=== PATIENT | male | born 1945 | race Caucasian/White ===

== ENCOUNTER 2022-09-26 10:15 | Outpatient (OUT) | payer MEDICARE, SELFPAY ==
[2022-09-26 13:20] LABS: Prostate Specific Antigen Dx 2.05 ng/mL (<=4.00)
== END 2022-09-26 10:16 | disposition home or self-care (01) ==
LOC: LAB 10:18
PROVIDERS: PCP Family Medicine; Visit Provider Urology
DX: Z85.46 Personal history of malignant neoplasm of prostate (principal)
CPT/HCPCS: 36415; 84153

== ENCOUNTER 2022-09-26 10:20 | Outpatient (OUT) | payer MEDICARE, SELFPAY ==
[2022-09-26 11:07] LABS: Hematocrit 46.2 % (42.0-54.0); Hemoglobin 15.3 g/dL (14.0-18.0); Mean Corpuscular HGB Conc 33.1 g/dL (29.9-35.2); Mean Corpuscular Hemoglobin 28.9 pg (25.9-34.0); Mean Corpuscular Volume 87.3 fL (80.0-94.0); Mean Platelet Volume 10.5 fL (9.5-13.5); Platelet Count 171 10^3/uL (150-450); Red Blood Count 5.29 10^6/uL (4.70-6.10); Red Cell Distribution Width 14.4 % (11.0-15.0); White Blood Count 6.6 10^3/uL (4.0-11.0)
[2022-09-26 11:26] LABS: Bilirubin Urine NEGATIVE (NEGATIVE); Blood Urine NEGATIVE (NEGATIVE); Clarity Urine CLEAR (CLEAR); Color Urine YELLOW (YELLOW); Glucose Urine UA NEGATIVE (NEGATIVE); Ketones Urine NEGATIVE (NEGATIVE); Leukocyte Esterase Urine NEGATIVE (NEGATIVE); Nitrite Urine NEGATIVE (NEGATIVE); Protein Urine TRACE mg/dL (NEG/TRACE); Specific Gravity Urine 1.025 (1.005-1.025); Urobilinogen Urine 0.2 EU/dL (0.2-1.0); pH Urine 5.5 (5.0-9.0)
[2022-09-26 11:36] LABS: Bacteria Urine NONE SEEN #/HPF (NONE SEEN); Cast Seen? NONE SEEN #/LPF (NONE SEEN); Crystals Seen? None Seen #/HPF (None Seen); Mucus Urine NONE SEEN (NONE SEEN); RBC Urine 0-2 #/HPF (0-2); Squamous Epithelial Cell Urine RARE #/LPF (NONE/RARE); Urine Culture Indicated NO; WBC Urine NONE SEEN #/HPF (NONE SEEN)
[2022-09-26 11:43] LABS: Creatinine Urine Random 194.09 mg/dL (20.00-300.00); Protein Creatinine Ratio Urine 0.15; Total Protein Urine Random 28.9 mg/dL (<=11.9)
[2022-09-26 12:35] LABS: Albumin Level 4.1 g/dL (3.4-5.0); Anion Gap 15.7; BUN Creatinine Ratio 18.6; Calcium 9.4 mg/dL (8.5-10.1); Carbon Dioxide 24.1 mmol/L (21.0-32.0); Chloride 104 mmol/L (98-107); Estimated GFR (African America 57 (>=60); Estimated GFR (Non-African Ame 47 (>=60); Glucose 111 mg/dL (74-106); Potassium 3.8 mmol/L (3.5-5.1); Sodium 140 mmol/L (136-145)
[2022-09-27 12:09] LABS: PTH, Intact 45 pg/mL (15-65)
== END 2022-09-26 10:21 | disposition home or self-care (01) ==
LOC: LAB 10:21
PROVIDERS: PCP Family Medicine; Visit Provider Internal Medicine
DX: I12.9 Hypertensive chronic kidney disease with stage 1 through stage 4 chronic kidney disease, or unspecified chronic kidney disease (principal); N18.30 Chronic kidney disease, stage 3 unspecified; C61 Malignant neoplasm of prostate; D47.2 Monoclonal gammopathy; N25.81 Secondary hyperparathyroidism of renal origin
CPT/HCPCS: 36415; 80069; 81001; 82306; 82570; 83735; 83970; 84153; 84156; 84550; 85027

== ENCOUNTER 2022-11-04 08:54 | Outpatient (OUT) | payer MEDICARE, SELFPAY ==
--- NOTE | 2022-11-04 08:55 | ECG_ITS ---
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
--- NOTE | 2022-11-04 09:44 | P.GSHP_ITS ---
History of Present Illness History of Present Illness Chief complaint: bladder tumor Narrative: Patient presents for preadmission testing. Please see HPI from Dr. Douglass dated 11/01/2022. Review of Systems ROS Narrative Please see ROS from Dr. Douglass dated 11/01/2022. [facility] Medical History (Updated 11/04/22 @ 09:55 by Peggy Helm NP) Surgical History (Updated 11/04/22 @ 09:24 by Peggy Helm NP) Family History (Updated 11/04/22 @ 09:43 by Peggy Helm NP) Other Family history of cancer Family history of hypertension Myocardial infarct Social History (Updated 11/04/22 @ 09:18 by Peggy Helm NP) Within the past year, how often did you have a drink containing alcohol: never Score interpretation: A score less than 4 is consistent with normal alcohol consumption. Smoking status: Never smoker Previous occupational history: Retired Highest level of school completed/degree received: high school graduate Meds Home Medications and Allergies Home Medications Medication Instructions Recorded Confirmed Type lisinopril 10 1 tab PO QDAY 11/04/22 11/04/22 History mg-hydrochlorothiazide 12.5 mg tablet Allergies Allergy/AdvReac Type Severity Reaction Status Date / Time oxytetracycline Allergy swelling Verified 11/04/22 09:16 [From Terramycin] Penicillins Allergy Rash Verified 11/04/22 09:16 Exam Narrative Exam Narrative: Constitutional: Awake, alert, comfortable, well-appearing, nontoxic, interactive, vital signs as charted Head: Normocephalic, atraumatic Neck: Supple, normal appearance, normal range of motion, no meningeal signs, no lymphadenopathy Respiratory: No respiratory distress, breath sounds clear Cardiovascular: Regular rate and rhythm, strong and regular heart tones Abdomen: Nontender, normal bowel sounds, soft, no CVA tenderness Musculoskeletal: Normal gait, no swelling or edema Skin: No rashes or induration, no lesions, only visible skin inspected Neuro: No neurological deficits, normal sensation Psychiatric: Oriented ?3, normal affect Assessment and Plan Assessment and Plan (1) Bladder tumor: (2) Hematuria: Plan Cystoscopy/TURBT scheduled with Dr. Douglass 11/10/2022.
[2022-11-04 10:17] LABS: Basophils Percent Auto 0.3 % (0.2-2.0); Eosinophils Absolute Auto 0.1 10^3/uL (0.0-0.7); Eosinophils Percent Auto 1.4 % (0.9-7.0); Hematocrit 46.4 % (42.0-54.0); Immature Granulocytes Abs Auto 0.03 10^3/uL (0.00-0.03); Immature Granulocytes Pct Auto 0.5 % (0.0-0.5); Lymphocytes Absolute Auto 1.3 10^3/uL (1.2-3.8); Lymphocytes Percent Auto 20.8 % (20.5-60.0); Mean Corpuscular HGB Conc 32.3 g/dL (29.9-35.2); Mean Corpuscular Volume 89.6 fL (80.0-94.0); Mean Platelet Volume 10.6 fL (9.5-13.5); Monocytes Absolute Auto 0.6 10^3/uL (0.3-0.8); Monocytes Percent Auto 9.1 % (1.7-12.0); Neutrophils Absolute Auto 4.3 10^3/uL (1.4-6.5); Neutrophils Percent Auto 67.9 % (43.0-75.0); Platelet Count 168 10^3/uL (150-450); Red Blood Count 5.18 10^6/uL (4.70-6.10); Red Cell Distribution Width 14.7 % (11.0-15.0); White Blood Count 6.4 10^3/uL (4.0-11.0)
[2022-11-04 10:32] LABS: INR 1.03; Partial Thromboplastin Time 30.2 sec (22.3-36.2); Prothrombin Time 10.9 sec (9.0-11.6)
[2022-11-04 12:11] LABS: Anion Gap 14.6; BUN Creatinine Ratio 17.4; Calcium 9.5 mg/dL (8.5-10.1); Carbon Dioxide 26.3 mmol/L (21.0-32.0); Chloride 104 mmol/L (98-107); Estimated GFR (African America 53 (>=60); Estimated GFR (Non-African Ame 44 (>=60); Glucose 107 mg/dL (74-106); Potassium 3.9 mmol/L (3.5-5.1); Sodium 141 mmol/L (136-145)
== END 2022-11-04 08:55 | disposition home or self-care (01) ==
LOC: PST 08:54
PROVIDERS: PCP Family Medicine; Visit Provider Urology
DX: Z01.810 Encounter for preprocedural cardiovascular examination (principal); Z01.812 Encounter for preprocedural laboratory examination; D49.4 Neoplasm of unspecified behavior of bladder; R31.9 Hematuria, unspecified; I10 Essential (primary) hypertension; Z85.46 Personal history of malignant neoplasm of prostate
CPT/HCPCS: 80048; 85025; 85610; 85730; 93005; G0463

== ENCOUNTER 2022-11-10 10:33 | Day surgery (SDC) | payer MEDICARE, SELFPAY ==
[2022-11-04 09:34] VITALS: BP 115/71; PULSE 61; RESP 16; TEMP 36.3; O2SAT 96; BMI 29.9
[2022-11-10] VITALS (13 sets, daily range): BP systolic 93–133; BP diastolic 45–79; PULSE 47–68; RESP 8–16; TEMP 36–36.2; O2SAT 93–96; BMI 29.6
[2022-11-10] MEDS: LACTATED RINGER'S SOLUTION 1,000 ML 50 ML IV ×2 (11:04→13:20)
[2022-11-10] MEDS: CIPROFLOXACIN IN 5 % DEXTROSE 400 MG/200 ML PIGGYBACK 200 MG IV (12:09)
--- NOTE | 2022-11-10 13:14 | P.URON_ITS ---
Urology Surgery Operative Note Operative Note Procedure Date: 11/10/22 Time Out Performed: yes Pre-op Diagnosis: bladder tumor Post-op Diagnosis: same as pre-op Procedures performed: #1. Cystoscopy. #2. Transurethral resection of bladder tumor approximately 4 cm. Anesthesia: GETA Primary Surgeon: Les Douglass Complications: none Estimated blood loss (mL): 5 Findings: large mid trigone necrotic angry looking fungating bladder mass Specimens: bladder tumor Drains: 20 [place] Herrera catheter Indications for Procedures: gentleman has microhematuria. Cystoscopy revealed a 3-4 cm papillary neoplasm from the center of his trigone going towards the bladder neck. Coincidentally, his PSA has been rising. He now presents for cystoscopy and transurethral resection of the bladder tumor. He has signed an informed consent for these procedures after all risks were explained. Detailed description of Procedure: The patient was brought to the operating room and placed on the operating room table in the supine position. SCDs were placed on the lower extremities and turned on and functioning during the entire case. Timeout was done by all parties in the room. We all agreed upon the patient's identification and the planned procedures for this patient. Genn. anesthesia was then administered. The patient was then repositioned into the modified dorsal lithotomy position. All pressure points were satisfactorily padded. Genitalia were sterilely prepped and draped in usual fashion.I started by passing a 26 [place] Olympus resectoscope with the standard bipolar loop electrode per urethra and into the bladder. The anterior urethra was normal. As soon as I entered the bladder I could see this large fungating necrotic mass originating from the center of the trigone and towards the bladder neck. The ureteral orifices were significantly lateral to the mass. At this time I then uniformly and deeply resectted this entire mass. The resection bed was coagulated. The Restorando[employer] evacuator was used to get all the bladder tumor pieces out. These were sent for permanent sections. The rest of the bladder showed no tumors. I was going to place mitomycin C in the bladder at this time but the pharmacy does not have the medicine readdy yet therefore I removed the scope from the bladder and placed a 20 [place] Herrera catheter in the bladder. The anesthetic was reversed. He was then transferred to a [facility] bed and wheeled to PACU in stable condition. He will get his mitomycin C medicine in PACU. Follow-up will be in one week for catheter removal and to review the pathology.
[2022-11-10] MEDS: MITOMYCIN 40 MG in WATER FOR INJECTION,STERILE 20 ML 20 MG INTRAVESIC (13:15)
[2022-11-10] MEDS: HYDROMORPHONE HCL 0.5 MG/0.5 ML SYRINGE 0.4 MG IV (13:48)
--- NOTE | 2022-11-10 14:48 | PC.NURSE ---
mitomycin instilled in bladder at 1315 and drained at 1445, conley left in placed and connected to conley bag
== END 2022-11-10 14:53 | disposition home or self-care (01) ==
PROVIDERS: PCP Family Medicine; Visit Provider Urology
PROC: (CPT 52235; principal; 2022-11-10 11:30)
DX: C79.11 Secondary malignant neoplasm of bladder (principal); Z85.46 Personal history of malignant neoplasm of prostate; R31.29 Other microscopic hematuria; I10 Essential (primary) hypertension; R35.1 Nocturia; R35.0 Frequency of micturition; R39.15 Urgency of urination; Z90.79 Acquired absence of other genital organ(s); R97.20 Elevated prostate specific antigen [PSA]
CPT/HCPCS: 52235; 36415; 88307; 88341; 88342; J1170; J2704; J9280

== ENCOUNTER 2024-01-12 12:37 | Outpatient (OUT) | payer MEDICARE, SELFPAY ==
--- NOTE | 2024-01-12 12:54 | ECG_ITS ---
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
--- NOTE | 2024-01-12 12:54 | XR_ITS ---
The [address] [address] Patient Name: FARZANA JOHNS MRN: [id number] date: 1945 Sex: M Assigned Patient Location: [facility] Current Patient Location: [facility] Accession/Order Number: [id number] Exam Date: 01/12/2024 15:35 Report Date: 01/12/2024 15:39 At the request of: YOSEF GRIMES Procedure: XR chest 2V PROCEDURE: XR chest 2V DATE: 01/12/2024 3:35 PM EST COMPARISONS: CT chest 06/06/2016 CLINICAL INDICATION: 78 years Male Preop exam FINDINGS: The cardiomediastinal silhouette and pulmonary vasculature are within normal limits. 1.5 cm stable granuloma left upper lung field. The lungs are otherwise clear. There is no evidence of pleural effusion or pneumothorax. XR/XR chest 2V IMPRESSION: Chest radiograph is essentially within normal limits and stable. Electronically authenticated by: KAYLAH SCHMIDT Date: 01/12/2024 15:39
[2024-01-12 13:41] LABS: Hematocrit 41.5 % (42.0-54.0); Hemoglobin 14.1 g/dL (14.0-18.0); Mean Corpuscular Hemoglobin 31.1 pg (25.9-34.0); Mean Corpuscular Volume 91.6 fL (80.0-94.0); Mean Platelet Volume 10.6 fL (9.5-13.5); Platelet Count 184 10^3/uL (150-450); Red Blood Count 4.53 10^6/uL (4.70-6.10); Red Cell Distribution Width 14.2 % (11.0-15.0); White Blood Count 9.8 10^3/uL (4.0-11.0)
--- NOTE | 2024-01-12 13:41 | P.GSHP_ITS ---
History of Present Illness History of Present Illness Chief complaint: Prostate cancer, bladder lesions Narrative: Patient presents for presurgical testing. Please see HPI from Dr. Douglass dated January 10, 2024. Review of Systems ROS Narrative Please see ROS from Dr. Douglass dated January 10, 2024. [facility] Medical History (Updated 01/12/24 @ 13:16 by Peggy Helm NP) Irregular heart beat ?I49.9 - Cardiac arrhythmia, unspecified (ICD-10) Bladder cancer ?C67.9 - Malignant neoplasm of bladder, unspecified (ICD-10) Hematuria ?R31.9 - Hematuria, unspecified (ICD-10) Skin cancer ?C44.90 - Unspecified malignant neoplasm of skin, unspecified (ICD-10) Prostate cancer ?C61 - Malignant neoplasm of prostate (ICD-10) Bronchitis ?J40 - Bronchitis, not specified as acute or chronic (ICD-10) Hypertension ?I10 - Essential (primary) hypertension (ICD-10) Bladder tumor ?D49.4 - Neoplasm of unspecified behavior of bladder (ICD-10) Surgical History (Updated 01/12/24 @ 13:07 by Peggy Helm NP) H/O transurethral resection of bladder tumor (TURBT) (11/10/22) ?Z98.890 - Other specified postprocedural states (ICD-10) ?Z86.03 - Personal history of neoplasm of uncertain behavior (ICD-10) History of surgical removal of lesion ?Z98.890 - Other specified postprocedural states (ICD-10) ?Z87.2 - Personal history of diseases of the skin and subcutaneous tissue (ICD-10) H/O prostatectomy ?Z90.79 - Acquired absence of other genital organ(s) (ICD-10) History of colonoscopy ?Z98.890 - Other specified postprocedural states (ICD-10) Family History (Updated 11/04/22 @ 09:43 by Peggy Helm NP) Other Family history of cancer Family history of hypertension Myocardial infarct Social History (Updated 11/04/22 @ 09:18 by Peggy Helm NP) Within the past year, how often did you have a drink containing alcohol: never Score interpretation: A score less than 4 is consistent with normal alcohol consumption. Smoking status: Never smoker Previous occupational history: Retired Highest level of school completed/degree received: high school graduate Meds Home Medications and Allergies Home Medications ?Medication ?Instructions ?Recorded ?Confirmed ?Type lisinopril 10 1 tab PO QDAY 11/04/22 01/12/24 History mg-hydrochlorothiazide 12.5 mg tablet abiraterone 250 mg tablet 1,000 mg PO DAILY 01/12/24 01/12/24 History leuprolide acetate (6 month) 45 mg 45 mg subcut .[id number] 01/12/24 01/12/24 History (6 month) subcutaneous syringe ([employer]) prednisone 5 mg tablet 5 mg PO DAILY 01/12/24 01/12/24 History Allergies Allergy/AdvReac Type Severity Reaction Status Date / Time oxytetracycline (From Allergy swelling Verified 01/12/24 13:09 Terramycin) Penicillins Allergy Rash Verified 01/12/24 13:09 Exam Narrative Exam Narrative: Constitutional: Awake, alert, comfortable, well-appearing, nontoxic, interactive, vital signs as charted Head: Normocephalic, atraumatic Neck: Supple, normal appearance, normal range of motion, no meningeal signs, no lymphadenopathy Respiratory: No respiratory distress, breath sounds clear Cardiovascular: Regular rate, irregular rhythm, no murmur Abdomen: Nontender, normal bowel sounds, soft, no CVA tenderness Musculoskeletal: Normal gait, no swelling or edema Skin: No rashes or induration, no lesions, only visible skin inspected Neuro: No neurological deficits, normal sensation Psychiatric: Oriented ?3, normal affect Assessment and Plan Assessment and Plan (1) Bladder tumor: Plan Cystoscopy/TURBT scheduled with Dr. Douglass January 16, 2024.
--- NOTE | 2024-01-12 13:43 | PM.PRESUREVA ---
History of Present Illness History of Present Illness Chief complaint: Prostate cancer, bladder lesions [facility] Medical History (Updated 01/12/24 @ 13:16 by Peggy Helm NP) Irregular heart beat ?I49.9 - Cardiac arrhythmia, unspecified (ICD-10) Bladder cancer ?C67.9 - Malignant neoplasm of bladder, unspecified (ICD-10) Hematuria ?R31.9 - Hematuria, unspecified (ICD-10) Skin cancer ?C44.90 - Unspecified malignant neoplasm of skin, unspecified (ICD-10) Prostate cancer ?C61 - Malignant neoplasm of prostate (ICD-10) Bronchitis ?J40 - Bronchitis, not specified as acute or chronic (ICD-10) Hypertension ?I10 - Essential (primary) hypertension (ICD-10) Bladder tumor ?D49.4 - Neoplasm of unspecified behavior of bladder (ICD-10) Surgical History (Updated 01/12/24 @ 13:07 by Peggy Helm NP) H/O transurethral resection of bladder tumor (TURBT) (11/10/22) ?Z98.890 - Other specified postprocedural states (ICD-10) ?Z86.03 - Personal history of neoplasm of uncertain behavior (ICD-10) History of surgical removal of lesion ?Z98.890 - Other specified postprocedural states (ICD-10) ?Z87.2 - Personal history of diseases of the skin and subcutaneous tissue (ICD-10) H/O prostatectomy ?Z90.79 - Acquired absence of other genital organ(s) (ICD-10) History of colonoscopy ?Z98.890 - Other specified postprocedural states (ICD-10) Family History (Updated 11/04/22 @ 09:43 by Peggy Helm NP) Other Family history of cancer Family history of hypertension Myocardial infarct Social History (Updated 11/04/22 @ 09:18 by Peggy Helm NP) Within the past year, how often did you have a drink containing alcohol: never Score interpretation: A score less than 4 is consistent with normal alcohol consumption. Smoking status: Never smoker Previous occupational history: Retired Highest level of school completed/degree received: high school graduate Meds Home Medications and Allergies Home Medications ?Medication ?Instructions ?Recorded ?Confirmed ?Type lisinopril 10 1 tab PO QDAY 11/04/22 01/12/24 History mg-hydrochlorothiazide 12.5 mg tablet abiraterone 250 mg tablet 1,000 mg PO DAILY 01/12/24 01/12/24 History leuprolide acetate (6 month) 45 mg 45 mg subcut .[id number] 01/12/24 01/12/24 History (6 month) subcutaneous syringe ([employer]) prednisone 5 mg tablet 5 mg PO DAILY 01/12/24 01/12/24 History Allergies Allergy/AdvReac Type Severity Reaction Status Date / Time oxytetracycline (From Allergy swelling Verified 01/12/24 13:09 Terramycin) Penicillins Allergy Rash Verified 01/12/24 13:09 Assessment and Plan Assessment and Plan (1) Bladder tumor: Plan Cystoscopy/TURBT scheduled with Dr. Douglass January 16, 2024.
[2024-01-12 14:08] LABS: Lymphocytes Absolute Manual 0.78 10^3/uL (1.20-3.80); Monocytes Absolute Manual 0.78 10^3/uL (0.30-0.80); Segmented Neut Absolute Manual 8.23 10^3/uL (1.4-6.5)
[2024-01-12 14:19] LABS: INR 0.99; Partial Thromboplastin Time 25.1 sec (22.3-36.2); Prothrombin Time 10.5 sec (9.0-11.6)
[2024-01-12 14:30] LABS: Anion Gap 13.9; BUN Creatinine Ratio 13.8; Calcium 10.4 mg/dL (8.5-10.1); Carbon Dioxide 27.5 mmol/L (21.0-32.0); Chloride 104 mmol/L (98-107); Estimated GFR (African America 42 (>=60 mL/min/1.73m^2); Estimated GFR (Non-African Ame 35 (>=60 mL/min/1.73m^2); Glucose 195 mg/dL (74-106); Potassium 3.4 mmol/L (3.5-5.1); Sodium 142 mmol/L (136-145)
== END 2024-01-12 12:38 | disposition home or self-care (01) ==
LOC: PST 12:39
PROVIDERS: PCP Family Medicine; Visit Provider Urology
DX: Z01.810 Encounter for preprocedural cardiovascular examination (principal); Z01.812 Encounter for preprocedural laboratory examination; Z01.818 Encounter for other preprocedural examination; C61 Malignant neoplasm of prostate; R31.9 Hematuria, unspecified
CPT/HCPCS: 71046; 80048; 85007; 85027; 85610; 85730; 93005; G0463

== ENCOUNTER 2024-02-08 08:37 | Outpatient (OUT) | payer MEDICARE, SELFPAY ==
--- OUTSIDE RECORDS SUMMARY | 2024-02-08 08:41 | XMS_ITS | CCD ---
Author Organization [facility] Care Team Providers Care Cs Associate Name Role Phone Unavailable Primary Care Provider UnavailAzucena Johnson Unavailable Unavailable Primary Care Provider UnavailGURMEET Negron Primary Care Physician MARAH, DR GURMEET Haque Admitting Unavailable MARAH, DR GURMEET Haque Attending Unavailable CHANEL, DR GURMEET Haque Primary Care Unavailable CHANEL, DR GURMEET Haque Consulting Unavailable ZIEBER, DR MIA Bunch Consulting Unavailable MARAH, DR GURMEET Haque Admitting Unavailable CHANEL, DR GURMEET Haque Attending Unavailable CHANEL, DR GURMEET Haque Primary Care Unavailable CHANEL, DR GURMEET Haque Consulting Unavailable GRAYTOWN, DR CHAIM Canales Consulting Unavailable CHANEL, DR GURMEET Haque Admitting Unavailable CHANEL, DR GURMEET Haque Attending Unavailable CHANEL, DR GURMEET Haque Primary Care Unavailable CHANEL, DR GURMEET Haque Consulting Unavailable ZIEBER, DR MIA Bunch Consulting Unavailable CORNELIO, DR NAVAS Admitting Unavailable GRIMES, DR NAVAS Attending Unavailable CHANEL, DR GURMEET Haque Primary Care Unavailable MAXIMILIANMARISSA Consulting Unavailable GABRIELAKAREN Admitting Unavailable GABRIELAKAREN CHAMBERS Attending Unavailable MARAH, DR GURMEET Haque Primary Care Unavailable GABRIELAKAREN CHAMBERS Consulting Unavailable Unavailable Primary Care Provider Unavailrazia haque Unavailable Primary Care Provider UnavailShahriar Gordon Primary Care Physician Angelina Holder Unavailable CARISSA Holder Attending Provider Angelina Holder Attending Unavailable Angelina Holder Admitting Unavailable NON STAFF Primary Care Unavailable Shahriar Stephenson MD Primary Care Provider [phone] David Kumari MD Unavailable Renny ROBERTN.TOY ASSEMBLER, Elio Unavailable Nicolas Hwang MD Unavailable Cory DELONG, Nancy Unavailable Shahriar Stephenson MD Primary Care Provider Unavailable Primary Care Provider UnavailShilpa Mcguire Primary Care Physician [phone] Parvez, IVAN Mart Attending Unavailable Parvez, BATTERY TESTER FIELD Sihlpa Matr Attending Unavailable Parvez, BATTERY TESTER FIELD Shilpa Mart Attending Unavailable Yosef GRIMES R Attending Unavailable GRIMES, Yosef R Attending Unavailable GRIMES, Yosef R Attending Unavailable GRIMES, Yosef R Attending Unavailable GRIMES, Yosef R Attending Unavailable GRIMES, Yosef R Admitting Unavailable Yosef GRIMES Attending Unavailable David KUMARI Attending Unavailable KENYETTA G DAMIEN Referring Unavailable ROSS, SHAHRIAR E Primary Care Unavailable KENYETTA G DAMIEN Attending Unavailable ROSS, SHAHRIAR E Primary Care Unavailable ROSS, SHAHRIAR E Primary Care Unavailable ROSS, SHAHRIAR E Primary Care Unavailable NICOLAS HWANG Referring Unavailable ELIO PAYNE Attending Unavailable ROSS, SHAHRIAR E Primary Care Unavailable NICOLAS HWANG Referring Unavailable NICOLAS HWANG Attending Unavailable ROSS, SHAHRIAR E Primary Care Unavailable KENYETTA G DAMIEN Attending Unavailable ROSS, SHAHRIAR E Primary Care Unavailable KENYETTA G DAMIEN Referring Unavailable ROSS, SHAHRIAR E Primary Care Unavailable KENYETTA G DAMIEN Attending Unavailable ROSS, SHAHRIAR E Primary Care Unavailable GILSONELEAlivia, G DAMIEN Referring Unavailable ROSS, SHAHRIAR E Primary Care Unavailable KENYETTA G DAMIEN Attending Unavailable ROSS, SHAHRIAR E Primary Care Unavailable YOSEF GRIMES Referring Unavailable ROSS, SHAHRIAR E Primary Care Unavailable GILSONELER G DAMIEN Referring Unavailable ROSS, SHAHRIAR E Primary Care Unavailable SHILPA FOX Referring Unavailable ROSS, SHAHRIAR E Primary Care Unavailable ENGELEAlivia G DAMIEN Referring Unavailable ROSS, SHAHRIAR E Primary Care Unavailable ENGELER, G DAMIEN Referring Unavailable ROSS, SHAHRIAR E Primary Care Unavailable GILSONELER, G DAMIEN Referring Unavailable ROSS, SHAHRIAR E Primary Care Unavailable ENGELER, G DAMIEN Referring Unavailable ROSS, SHAHRIAR E Primary Care Unavailable ROSS, SHAHRIAR E Primary Care Unavailable KENYETTA G DAMIEN Attending Unavailable ROSS, SHAHRIAR E Primary Care Unavailable ROSS, SHAHRIAR E Primary Care Unavailable Yosef GRIMES Attending Unavailable Ysoef GRIMES R Referring Unavailable Meño Rojas Attending Meño Bishop Admitting Unavailable Meño Rojas Consulting Meño Bishop Attending Meño Bishop Referring Meño Bishop Consulting MD Meño Bishop Consulting Unavailable Yosef GRIMES Attending Unavailable Yosef GRIMES Attending Unavailable Yosef GRIMES Attending Unavailable Yosef GRIMES Admitting Unavailable Yosef GRIMES Attending Unavailable Allergies Allergy Classification Reported Allergen(s) Allergy Type Date of Onset Reaction(s) Facility (20 sources) Oxytetracycline; Translations: [oxytetracycline] Drug Allergy 10-22-19 Unknown, Fever (finding), Swelling at injection site (disorder) [facility] (4 sources) Penicillins; Translations: [PENICILLINS] Drug Allergy 10-22-19 Rash, Swelling [facility] (3 sources) Penicillin V Drug Allergy swelling, rash, and hair loss [facility] Other (3 sources) TERAMYCIN Propensity to adverse reactions Unknown [facility] Other (20 sources) Penicillins Drug Allergy 10-22-19 Rash, Swelling [facility] (17 sources) Penicillin; Translations: [penicillin] Drug Allergy Swelling at injection site (disorder) [facility] (1 source) Oxytetracycline Drug Allergy 12-23-19 16 [facility] (1 source) Penicillins Drug allergy (disorder) 12-23-19 16 [facility] Medications Current Medications Medication Drug Class(es) Dates Sig (Normalized) Sig (Original) abiraterone acetate 250 mg oral tablet (20 sources) Cytochrome P450 17A1 Inhibitor Start: 12-08-2022 End: 11-16-2023 take 4 tablets by mouth once daily abiraterone 250 mg oral tablet 1,000 mg = 4 tab(s), Oral, Daily, # 120 tab(s), Refills(s) 0 Start Date: 05/22/23 Status: Ordered Comment on above: Take 4 tablets by [facility] once daily. azithromycin 250 mg oral tablet (1 source) Macrolide Antimicrobial Start: 11-13-2020 Azithromycin 250 MG 2 tablet on the first day, then 1 tablet daily for 4 days Orally Once a day for 5 day(s) Nov, Active Calcium Carbonate / vitamin D3 (20 sources) take 1 tablet by mouth once daily calcium carbonate/vitamin D3 (CALCIUM WITH VITAMIN D3 ORAL) Take 1 tablet by mouth once daily. Active take 1 tablet by mouth once neal y calcium carbonate/vitamin D3 (CALCIUM WITH VITAMIN D3 ORAL) Take 1 tablet by mouth once daily. 0 Active calcium carbonat e/vitamin D3 (CALCIUM WITH VITAMIN D3 ORAL) Take by mouth. 0 Active Comment on above: Take by mouth. Take 1 tablet by mone once daily. calcium citrate 950 mg oral tablet (2 sources) Start: 12-03-19 take 1 mg by mouth twice daily calcium (as calcium citrate) 200 mg oral tablet mg tab(s), Oral, BID, Refills(s) 0 Start Date: 12/02/22 Status: Ordered Eliguard (8 sources) Start: 10-23-19 Eliguard Eliguard, injection every 6 months, As Directed Start Date: 10/23/23 Status: Ordered hydroCHLOROthiazide 12.5 mg / lisinopril 10 mg oral tablet (20 sources) Thiazide Diuretic, Angiotensin Converting Enzyme Inhibitor Start: 09-27-19 End: 09-22-19 take 1 tablet by mouth once daily hydrochlorothiazi de-lisinopril 12.5 mg-10 mg Tab 1 tab(s), Oral, Daily for 90 day(s), 90 tab(s), Refill(s) 3, [id number], 185, cm, 09/27/23 11:20:00 EDT, Height/Length Dosing, 116, kg, 09/27/23 11:20:00 EDT, Weight Dosing Start Date: 09/27/23 Stop Date: 09/21/24 Status: Ordered Start: 08-23-2022 hydrochlorothi azide-lisinopril 12.5 mg-10 mg Tab 1 tab(s), Oral, Daily, 90 tab(s), Refill(s) 3 Start Date: 08/23/22 Status: Ordered Start: 10-31-2018 hydrochlorothi azide-lisinopril 12.5 mg-10 mg Oral Refill(s) 0 Start Date: 10/31/18 Status: Ordered take 10-12.5 mg by mouth once lisinopril-hydrochlorothiazide (PRINZIDE,ZESTORETIC) 10-12.5 mg per tablet Take 1 tablet by mouth once daily. Active Comment on above: Take 1 tablet by mone th once daily. Misc Medication (8 sources) Start: 10-23-2023 Misc Medication Vitamin D3 with Calcium Start Date: 10/23/23 Status: Ordered predniSONE (20 sources) Start: 05-22-2023 predniSONE 5 mg Tab Refills(s) 0 Start Date: 05/22/23 Status: Ordered Start: 12-08-2022 End: 11-16-2023 take 1 tablet by mouth once daily predniSONE (DELTASONE) 5 mg tablet Take 1 tablet by mouth once daily. 90 tablet 3 11/16/2023 Active Comment on above: Take 1 tablet by mone th once daily. Vitamin D (2 sources) Start: 12-02-2022 Vitamin D International_Unit, Oral, qWeek, Refills(s) 0 Start Date: 12/02/22 Status: Ordered Completed/Discontinued Medications Medication Drug Class(es) Dates Sig (Normalized) Sig (Original) acetaminophen 500 mg oral tablet (19 sources) End: 05-18-2023 take 2 tablets by mouth every twelve hours acetaminophen (TYLENOL EXTRA STRENGTH) 500 mg tablet Take 1,000 mg by mouth every 12 hours. 05/18/2023 Discontinued Comment on above: Take 1,000 mg by mone th every 12 hours. bicalutamide 50 mg oral tablet (12 sources) Androgen Receptor Inhibitor Start: 11-18-2022 End: 01-02-2023 take 1 tablet by mouth once bicalutamide (CASODEX) 50 mg tablet Take 1 tablet by mouth every afternoon. 11/18/2022 01/02/2023 Discontinued (Discontinued by another Health Care Provider) Start: 11-18-2022 End: 11-13-2023 take 1 tablet by mouth every twenty-four hours Casodex 50 mg Tab 50 mg = 1 tab(s), Oral, q24hr, X 90 day(s), # 90 tab(s), Refills(s) 3, Pharmacy: [id number], 190, cm, 11/18/22 11:20:00 EDT, Height/Length Dosing, 112, kg, 11/18/22 11:20:00 EDT, Weight Dosing Start Date: 11/18/22 Stop Date: 11/13/23 Status: Ordered Comment on above: Take 1 tablet by mone th every afternoon. ciprofloxacin 500 mg oral tablet (6 sources) Quinolone Antimicrobial Start: take 1 tablet by mouth once daily Cipro 500 mg Tab 500 mg = 1 tab(s), Oral, Daily, take one tab day before procedure and one tab after procedure, # 2 tab(s), Refills(s) 0, Pharmacy: [id number], 190, cm, 01/08/24 9:10:00 EST, Height/Length Dosing, 119.9, kg, 01/08/24 9:10:00 EST, Weight Dosing Start Date: 01/08/24 Status: Ordered Start: 10-09-2022 take 1 tablet by mone th every twelve hours Cipro 500 MG 1 tablet Orally every 12 hrs for 5 day(s) Oct, Active Start: 10-03-2022 take 1 tablet by mone th once daily Cipro 500 mg Tab 500 mg = 1 tab(s), Oral, Daily, take one tab day before procedure and one tab after procedure, # 2 tab(s), Refills(s) 0, Pharmacy: [id number], 190, cm, 10/03/22 13:54:00 EDT, Height/Length Dosing, 112, kg, 10/03/22 13:54:00 EDT, Weight Dosing Start Date: 10/03/22 Status: Ordered iv contrast (will be provided with radiology test) (1 source) Start: 11-15-2022 End: 11-16-2022 iv contrast (will be provided with radiology test) MRI Prostate Inject, intravenously, once for 1 dose. No IV access, insert saline lock prior to the beginning of sedation, infusion, injection of imaging exam. Discontinue saline lock post exam. If Pt. has a central line or IVAD, may access for administration according to line specific nursing protocol. Once exam is complete flush line and de-access according to line specific nursing protocol in the MR contrast administration guidelines link. 1 Each 0 11/15/2022 11/16/2022 Comment on above: MRI Prostate Inject, intravenously, once for 1 dose. No IV access, insert saline lock prior to the beginning of sedation, infusion, injection of imaging exam. Discontinue saline lock post exam. If Pt. has a central line or IVAD, may access for administration according to line specific nursing protocol. Once exam is complete flush line and de-access according to line specific nursing protocol in the MR contrast administration guidelines link. Loperamide (13 sources) Opioid Agonist End: 05-18-2023 loperamide HCl (IMODIUM A-D ORAL) Take by mouth. 05/18/2023 Discontinued End: 05-18-2023 loperamide HCl (IMODIUM A-D ORAL) Take by mouth. 0 05/18/2023 Discontinued loperamide HCl ( IMODIUM A-D ORAL) Take by mouth. 0 Active Comment on above: Take by mouth. potassium chloride 10 meq extended release oral tablet (11 sources) Start: 01-06-2023 End: 05-18-2023 take 1 tablet by mouth once daily potassium chloride (K-TAB) 10 mEq tablet Take 1 tablet by mouth once daily. 30 tablet 3 01/06/2023 05/18/2023 Discontinued Comment on above: Take 1 tablet by mone once daily. Problems Active Problems Problem Classification Problem Date Documented Date Episodic/Chronic Cancer of prostate (20 sources) Malignant tumor of prostate; Translations: [Malignant neoplasm of prostate] Onset: 2 Chronic Cancer of prostate (20 sources) Personal history of malignant neoplasm of prostate; Translations: [History of malignant neoplasm of prostate] Onset: 2 Episodic Cancer; other and unspecified primary (1 source) History of squamous cell carcinoma; Translations: [Personal history of malignant neoplasm of other organs and systems] 12-19-2022 Episodic Chronic kidney disease (5 sources) Chronic kidney disease stage 3; Translations: [Chronic kidney disease, stage 3 (moderate)] Chronic Chronic kidney disease (2 sources) Chronic kidney disease; Translations: [Chronic kidney disease, stage III (moderate)] Coagulation and hemorrhagic disorders (14 sources) Platelet count below reference range; Translations: [Thrombocytopenia, unspecified] Onset: 3 01-16-2023 Chronic Essential hypertension (10 sources) Essential hypertension; Translations: [Essential (primary) hypertension] Chronic Genitourinary symptoms and ill-defined conditions (20 sources) Increased frequency of urination; Translations: [Nocturia] Onset: 3 06-24-2019 Episodic Hypertension with complications and secondary hypertension (7 sources) Chronic kidney disease due to hypertension; Translations: [Hypertensive chronic kidney disease with stage 1 through stage 4 chronic kidney disease, or unspecified chronic kidney disease] Onset: 2 Chronic Inflammatory conditions of male genital organs (14 sources) Epididymitis 05-27-2019 Episodic Neoplasms of unspecified nature or uncertain behavior (13 sources) Monoclonal gammopathy (clinical); Translations: [Monoclonal gammopathy] Onset: 2 Chronic Neoplasms of unspecified nature or uncertain behavior (20 sources) Neoplasm of bladder; Translations: [Neoplasm of unspecified behavior of bladder] Onset: 3 11-01-2022 Episodic Other diseases of kidney and ureters (17 sources) Secondary hyperparathyroidism; Translations: [Secondary hyperparathyroidism of renal origin] Onset: 3 01-16-2023 Chronic Other diseases of kidney and ureters (1 source) Secondary hyperparathyroidism of renal origin; Translations: [SEC HYPERPARATHYROIDISM RENAL ORIGN] Onset: 2 Chronic Other gastrointestinal disorders (4 sources) Intra-abdominal and pelvic swelling, mass and lump, unspecified site; Translations: [INTRA-ABD PELV SWELL MASS LUMP] Onset: 2 Episodic Other non-traumatic joint disorders (8 sources) Knee pain 09-27-2023 Episodic Other nutritional; endocrine; and metabolic disorders (1 source) Obese class I; Translations: [Body mass index (BMI) 33.0-33.9, adult] Onset: 2 Chronic Other nutritional; endocrine; and metabolic disorders (14 sources) Body mass index 30+ - obesity 09-27-2021 Chronic Other nutritional; endocrine; and metabolic disorders (8 sources) Obesity caused by energy imbalance 09-27-2023 Chronic Other nutritional; endocrine; and metabolic disorders (1 source) Other obesity due to excess calories; Translations: [Class 1 obesity due to excess calories in adult, unspecified BMI, unspecified whether serious comorbidity present] Onset: 4 Chronic Other screening for suspected conditions (not mental disorders or infectious disease) (20 sources) Abnormal findings on diagnostic imaging of other abdominal regions, including retroperitoneum; Translations: [Raised prostate specific antigen] Onset: 2 Episodic Other skin disorders (1 source) Disorder of skin of upper limb; Translations: [Disorder of the skin and subcutaneous tissue, unspecified] 12-19-2022 Episodic Substance-related disorders (2 sources) Nicotine dependence 05-27-2019 Chronic Comment on above: Added secondary to d ocumentation in Social History. Added secondary to d ocumentation in Social History. Unclassified (1 source) CHRN KIDNEY DISEASE STG 3 UNSP; Translations: [CHRN KIDNEY DISEASE STG 3 UNSP] Onset: 2 Unclassified (15 sources) Patient encounter status 08-23-2022 Unclassified (1 source) Frequency of micturition; Translations: [Frequency of micturition] Onset: 3 Unclassified (1 source) Class 1 obesity due to excess calories in adult, unspecified BMI, unspecified whether serious comorbidity present; Translations: [Class 1 obesity due to excess calories in adult, unspecified BMI, unspecified whether serious comorbidity present] Onset: 4 Past or Other Problems Problem Classification Problem Date Documented Da te Episodic/Chronic Immunizations and screening for infectious disease (1 source) Contact with and (suspected) exposure to other viral communicable diseases; Translations: [Contact with and (suspected) exposure to other viral communicable diseases Z20.828] Onset: 11-13-2020 Resolved: 11-13-2020 Episodic Other gastrointestinal disorders (4 sources) Right lower quadrant abdominal swelling, mass and lump; Translations: [RT LOWER QUAD ABD SWELL MASS LUMP] Onset: 07-09-2021 Episodic Otitis media and related conditions (1 source) Otitis media, unspecified, left ear; Translations: [Left acute otitis media H66.92] Onset: 11-13-2020 Resolved: 11-13-2020 Episodic Results Test Name Value Interpretation Reference Range Facil ity Heart and Vascular Office/Cl inic Noteon 01-23-2024 Heart and Vascular Office/Clinic Note Heart and Vascular Office/Clinic Note Chief Complaint here for cardiac clearance History of Present Illness Reason for clinic visit-preoperative cardiac risk stratification (undergoing evaluation for bladder surgery) History of presenting illness-patient is a pleasant 78-year-old man with known history of metastatic prostate cancer. He recently underwent evaluation with his urologist for complaints of gross hematuria. Reviewed urology office note from January 10, 2024-patient is undergoing workup for possible cystoscopy with TURBT. EKG done on January 12, 2024 reported nonspecific T wave abnormality-cardiolog y consultation was sought prior to proceeding with the planned surgery because of abnormal EKG. I did not have the EKG available done on January 12, 2024 for review. EKG done today shows sinus rhythm with mild nonspecific ST-T changes and occasional PVCs. Patient does not report any known history of CAD, CVA or PVD. Does not report any known history of heart failure. Does not report any complaints to suggest angina or anginal equivalent (no chest pain or shortness of breath with exertion). Does not report any complaints of palpitations or dizziness. Does not report any leg swelling. Does not forward any complaints to suggest orthopnea or PND. Patient notes that till about a month ago he was able to walk 3 miles. Reports hip pain limits his level of exertion. Patient does not recall any prior cardiac evaluation with a stress test or echocardiogram. Patient reports longstanding history of hypertension for which she currently takes hydrochlorothiazide/l isinopril combination 12.5 mg / 10 mg once a day. Does not report any known history of diabetes mellitus or dyslipidemia. Patient does not report any prior history of smoking. Review of Systems 10 SYSTEM REVIEW NEGATIVE OTHER THAN NOTED IN HPI Physical Exam Vitals & Measurements HR: 85(Peripheral) RR: 16 BP: 120/79 SpO2: 95% HT: 75 in HT: 190 cm WT: 119 kg WT: 262.35 lb BMI: 32.96 HEENT- no pallor,no icterus, no cyanosis Neck- no JVD, no bruit Chest- bilateral clear breath sounds, no rhonchi or crackles CVS- S1S2 normal, no rub or murmur Extremities- no ankle edema Neuro- alert, oriented x 3 Assessment/Plan Preoperative cardiac risk stratification (undergoing evaluation for bladder surgery -prior history of metastatic prostate cancer Abnormal EKG with mild nonspecific ST-T changes History of hypertension -Patient needs urgent surgery for episodes of gross hematuria with known history of metastatic CA prostate -Recommend echocardiogram-if patient has preserved LV systolic function without any significant valve disease and no significant pericardial effusion okay to proceed with planned surgery with low to moderate risk of adverse cardiac outcomes in the perioperative phase. If echo shows significant wall motion abnormality patient should follow-up in cardiology office prior to proceeding with the planned bladder surgery. 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 BMI 34.0-34.9,adult Class 1 obesity due to excess calories with body mass index (BMI) of 33.0 to 33.9 in adult Epididymitis Gross hematuria History of prostate cancer Hypertension Microscopic hematuria Nocturia Pre-op testing Prostate cancer Proteinuria Right knee pain Rising PSA following treatment for malignant neoplasm of prostate Urinary frequency Urinary urgency Wellness examination Historical No qualifying data Procedure/Surgical History Cystoscopy (01/10/2024), TURBT - Transurethral resection of bladder tumor (11/10/2022), Cystoscopy (11/01/2022), Radical retropubic prostatectomy with bilateral pelvic lymphadenectomy (01/07/2016), Transrectal biopsy of prostate using ultrasound (US) guidance (11/03/2015), Colonoscopy (2015), Colonoscopy (02/07/2012). Medications abiraterone 250 mg oral tablet, 1000 mg= 4 tab(s), Oral, Daily Eliguard, 0, As Directed hydrochlorothiazide-l isinopril 12.5 mg-10 mg Tab, 1 tab(s), Oral, Daily, 3 refills Misc Medication predniSONE 5 mg Tab Allergies oxytetracycline (Fever, Swelling at injection site) penicillin (Swelling at injection site) Social History Alcohol - Denies Alcohol Use, 11/12/2018 Never., 01/10/2024 Substance Abuse - Denies Substance Abuse, 10/23/2023 Never., 01/10/2024 Tobacco - Denies Tobacco Use, 11/12/2018 Never (less than 100 in lifetime) Tobacco Use:. Household tobacco concerns: No. Yes, 01/23/2024 Family History Cancer - unknown origin: Father. Hypertension: Mother. Immunizations Vaccine Date Status Comments influenza virus vaccine, inactivated - Not Given Parent Or Guardian Refuses Normal [facility] Comment on above: Result Comment: Electronically Signed By : Bob ROSARIO, Meño\.br\Date and Time Signed: 01/23/24 13:[address] UROGRAM WO/W IVCONon 12- CT UROGRAM WO/W IVCON * * *Final Report* * * DATE OF EXAM: Jan 19 2024 9:37AM [facility] [id number] - CT UROGRAM WO/W IVCON / PROCEDURE REASON: hematuria * * * * Physician Interpretation * * * * RESULT: EXAMINATION: CT ABDOMEN AND PELVIS WITHOUT AND WITH IV CONTRAST, INCLUDING EXCRETORY PHASE IMAGING (CT UROGRAM) 3D RECONSTRUCTIONS CLINICAL HISTORY: hematuria TECHNIQUE: CT urogram protocol including unenhanced, renal parenchymal phase and excretory phase renal imaging was obtained following IV contrast. Normal saline was also administered. No oral contrast was given. 3D image post-processing was performed at the request of the referring physician, on the CT scanner workstation under physician supervision. M: CTU_2 Contrast: IV: 125 ml of Omnipaque 350 Oral Contrast: None CT Radiation dose: Integrated dose-length product (DLP) for this visit = 3904 mGy*cm. CT Dose Reduction Employed: mAs-kVp adjusted based on patient size-age COMPARISON: Prostate MR 11/28/2022 and PET/CT 10/28/2022 RESULT: Kidneys and urinary tract: Right: 5 mm nonobstructive calculus upper pole. Right kidney enhances homogeneously without hydroureteronephrosis or enhancing renal masses. 1.7 cm right lower pole cyst. Normal excretion of contrast into the right collecting system. No filling defects within the opacified collecting system. Left: Precontrast images demonstrate no urolithiasis. Left kidney enhances homogeneously without hydroureteronephrosis or enhancing renal masses. Simple cysts measuring up to 2.3 cm in the left lower pole. Normal excretion of contrast into the left collecting system. No filling defects within the opacified collecting system. Bladder: No bladder calculi or discrete bladder masses. Abdomen and Pelvis: Liver: No focal hepatic lesions. Spleen: No focal splenic lesion. Pancreas: No focal pancreatic lesions. Adrenals: No mass. Biliary: No bile duct dilation. No gallbladder wall thickening. Vasculature: The celiac axis and SMA are patent. The portal vein and branches, splenic vein, SMV, and hepatic veins are patent. Mild atherosclerotic calcifications of the abdominal aorta without aneurysm. GI tract: No bowel obstruction. Colonic diverticulosis without acute diverticulitis. Normal appendix. Lymph nodes: 1.1 cm right external iliac node previously 1.4 cm 3.4 x 2.2 cm confluent lymph node mass along the right pelvic sidewall previously 4.4 x 4.2 cm. 1.1 cm right inguinal node previously 1.3 cm. 1 cm right inguinal node (image 161) previously 1.3 cm. Mesentery/Peritoneum: No mass, ascites, or fluid collection. Pelvis: Radical prostatectomy 1.6 x 1.5 cm nodule in the right hemipelvis near the sidewall previously 2.3 x 1.8 cm compatible with an area of treated recurrence. Bones/Soft Tissues: No aggressive osseous lesions. Lower thorax: 6 mm left lower lobe nodule (image 16). Linear band of scarring right lower lobe. [employer] (topogram) images: Unremarkable. IMPRESSION: Decreased size of right pelvic lymphadenopathy and nodule in the right hemipelvis compatible with treated recurrence. 5 mm nonobstructive right renal calculus. No enhancing renal masses or filling defects within the opacified collecting systems. 6 mm left lower lobe nodule. Consider dedicated chest CT for further assessment. Transcribe Date/Time: Jan 19 2024 2:50P Dictated by: PRAKASH YEE MD This examination was interpreted and the report reviewed and electronically signed by: PRAKASH YEE MD on Jan 19 2024 3:05PM EST Thank you for allowing us to participate in the care of your patient. Should there be any questions regarding this interpretation, please call [phone]. If you are unable to reach us at the number above, please feel free to contact [facility] at [phone]. [id number] N Normal [facility] Urine Cytology ([facility])on 03-17-2023 Microscopic exam Cytology (U) [Interp] Diagnosis Info Invalid Interpretation Code [facility] Comment on above: Result Comment: A:Urine,Urine:Voided Interpretation - Adequate cellularity for evaluation. CPT 99836 MicroScopic Description - Adequacy - Gross Description Site ID:A color Yellow fixative Alcohol Specimen designated Urine received in alcohol preservative and labeled with the patient???s name, consists of 50ml clear yellow fluid. Electronically signed by : on: 01/15/2024 13:14:46 Performed By: #### 1 [id number] #### [facility] [address] [place] [address] Ambulatory Visit Summaryon 03-12-2023 Ambulatory Visit Summary Ambulatory Visit Summary ADOLPH JOHNS :1945 Visit Date:01/10/2024 Ambulatory Visit Instructions Your Diagnosis Gross hematuria Prostate cancer Bladder neoplasm of uncertain malignant potential Tests Performed CT Urogram -- Results Pending -- Please visit your patient portal for your results or contact your primary care physician. Your Care Team Attending Physician - Yosef GRIMES MD Primary Care Physician - Shilpa Naylor This Is Your Medications List ciprofloxacin (Cipro 500 mg Tab) Contact prescribing physician if questions or concerns Misc Prescription (Eliguard) Non-Formulary Medication (Misc Medication) abiraterone (abiraterone 250 mg oral tablet) hydrochlorothiazide-l isinopril (hydrochlorothiazide- lisinopril 12.5 mg-10 mg Tab) predniSONE (predniSONE 5 mg Tab) Procedures Performed Cystoscopy (01/10/2024), TURBT - Transurethral resection of bladder tumor (11/10/2022), Cystoscopy (11/01/2022), Radical retropubic prostatectomy with bilateral pelvic lymphadenectomy (01/07/2016), Transrectal biopsy of prostate using ultrasound (US) guidance (11/03/2015), Colonoscopy (2015), Colonoscopy (02/07/2012). Discharge Vitals Temperature (Temporal Artery) 37 ???C Heart Rate (Peripheral) 89 Respiratory Rate 17 Blood Pressure 126/83 Height 190 cm Height 75 in Weight 119 kg Weight 262.35 lb BMI 32.96 What to do next Scheduled Follow-Up Appointments Monday 12:45 PM EDT With: Yosef GRIMES MD Where: [facility] [address] [place] [address]24 11:00 AM EDT With: Where: [facility] [address] [address]- You Need to Schedule the Following Appointments Follow Up with Yosef GRIMES MD, URL When: Where: [facility] [address] [place] [address]- Medications What How Much When Instructions Unchanged ciprofloxacin (Cipro 500 mg Tab) 1 Tablets By Mouth Every day take one tab day before procedure and one tab after procedure Unchanged abiraterone (abiraterone 250 mg oral tablet) 4 Tablets By Mouth Every day Contact prescribing physician if questions or concerns Unchanged hydrochlorothiazide-l isinopril (hydrochlorothiazide- lisinopril 12.5 mg-10 mg Tab) 1 Tablets By Mouth Every day Duration: 90 Days Contact prescribing physician if questions or concerns Unchanged Misc Prescription (Eliguard) 0 As Directed injection every 6 months Contact prescribing physician if questions or concerns Unchanged Non-Formulary Medication (Misc Medication) Vitamin D3 with Calcium Contact prescribing physician if questions or concerns Unchanged predniSONE (predniSONE 5 mg Tab) Contact prescribing physician if questions or concerns Medications and Immunizations Administered Given lidocaine Top 2% Gel w/Appl 6 mL, 6 mL, Topical. For: Gross hematuria, Prostate cancer Allergies oxytetracycline (Fever, Swelling at injection site) penicillin (Swelling at injection site) Problems Ongoing - Any problem that you are currently receiving treatment for. Bladder neoplasm of uncertain malignant potential Bladder tumor BMI 34.0-34.9,adult Class 1 obesity due to excess calories with body mass index (BMI) of 33.0 to 33.9 in adult Epididymitis Gross hematuria History of prostate cancer Hypertension Microscopic hematuria Nocturia Prostate cancer Proteinuria Right knee pain Rising PSA following treatment for malignant neoplasm of prostate Urinary frequency Urinary urgency Wellness examination Patient Survey You may receive a survey via text or e-mail asking about your office visit. Please share your experience with us by completing your survey. We appreciate your feedback and thank you for choosing us for your care. Education Materials Transurethral Resection of Bladder Tumor, Care After The following information offers guidance on how to care for yourself after your procedure. Your health care provider may also give you more specific instructions. If you have problems or questions, contact your health care provider. What can I expect after the procedure? After the procedure, it is common to have: ??? A small amount of blood or small blood clots in your urine for up to 2 weeks. ??? Soreness or mild pain from your catheter. After your catheter is removed, you may have mild soreness, especially when urinating. ??? A need to urinate often. ??? Pain in your lower abdomen. Follow these instructions at home: Medicines ??? Take [id number] and prescription medicines only as told by your health care provider. ??? If you were prescribed an antibiotic medicine, take it as told by your health care provider. Do not stop taking the antibiotic even if you start to feel better. ??? (more content not included)... Normal [facility] Urology Office/Clinic Noteon 01-10-2024 Urology Office/Clinic Note Urology Office/Clinic Note Chief Complaint gross hematuria HPI Staff Pt here for cysto due to gross hematuria. Abx taken. Cytol sent two days ago, results pending. History of Present Illness Tests reviewed: I have reviewed the previous health record information and history for this patient from Dr. Grimes. I have reviewed and verified the staff HPI to be accurate for this encounter. Review of Systems PHQ Score Initial Depression Screen Score: 0 SCORE ROS - Provider Constitutional: denies weight loss, denies hot flashes. Eyes: denies eye problems. Gastrointestinal: denies nausea, denies vomiting. Cardiovascular: denies chest pain or angina. Integumentary: no dryness Musculoskeletal: denies musculoskeletal symptoms. ENMT: denies otolaryngeal symptoms. Respiratory: no shortness of breath. Heme/Lymph: denies easy bleeding tendency, denies easy bruising tendency. Psychiatric: no confusion, no anxiety. Genitourinary: See HPI. Physical Exam Vitals & Measurements T: 37 ???C(Temporal Artery) HR: 89(Peripheral) RR: 17 BP: 126/83 HT: 75 in HT: 190 cm WT: 119 kg WT: 262.35 lb BMI: 32.96 General Appearance: alert, no distress, well nourished, well developed male. Genitourinary: normal scrotum, normal testes, normal urethra, normal epididymis, normal vas deferens/spermatic cord. Flank Pain: none. Bladder: nonpalpable. Procedure Operative Information Anesthesia Type: Local Procedure: Local Cystoscopy Complications: None Surgical risks, benefits, details of the procedure have been explained to the patient. Full informed consent has been obtained. Intraoperative Information Prepped: Patient is brought back to the endoscopy suite. Patient is placed in supine position. Patient prepped in the usual fashion with Betadine solution. 2% Xylocaine Jelly is placed per Urethra. After waiting several minutes, the Cystoscope is introduced. The Urethra is: Normal. Prostate absent. The Bladder: _There are a couple areas of radiation changes on the floor of the bladder that could have bled. But on the L anterior wall there are patches of raised red lesions, 3-4 cm in size. And on the R floor, there is a 2 cm patch of flat red lesions. Trabeculated: None (0) The Ureteral orifices: Show efflux of clear urine Specimens Removed: None Removal: Cystoscope is removed. The patient tolerated it well. Postoperative Information Patient is discharged home with antibiotic coverage. Follow up arranged. Assessment/Plan 1. Gross hematuria (R31.0: Gross hematuria) 01/01/24: UA trace-lysed blood, neg for infection. UCx neg. Cytol sent two days ago, results pending. Pt had IO cysto today wo complications. -Schedule CTU. 2. 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 G8 (4+4), 15% involved by tumor. Perineural invasion present. EPE neg. SV invasion neg. Margins neg. Lymph-vascular invasion neg. pT2c bilateral disease. PN0 no regional lymph node mets. Two lymph nodes both renetta. (Path in dark side documents dated 09/27/21 from [facility]). PSMA PET scan 10/28/22 at [facility] - Neg for mets; approx 1.5cm R posterior lateral periprostatic/seminal vesicle region soft tissue tracer avid lesion suspicious for recurrence. Cysto/TURBT 11/10/22 - Metastatic poorly differentiated adenocarcinoma consistent w/ prostatic primary. MRI pelvis 11/28/22 (ordered by Dr Kumari) - Recurrent mass arising/expanding from the right vas deferens remnant with adjacent conglomerate RIGHT pelvic lymphadenopathy, as detailed in the report. First Eligard inj given 12/02/22. Casodex (started 10/2022) was switched to abiraterone/prednison e 12/08/22. S/p EBRT 12/14/22 - 02/02/23. S/p Eligard administered 05/22/23 and 11/24/23. Taking abiraterone/prednison e. Follow up 05/21/23 for 6 mo with PSA and Eligard or sooner if needed. Pt understands and agrees with plan. -Cont Vit D and Calcium for bone health. 3. 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 -Will schedule Cysto with TURBT. The procedure risks, benefits, details, and treatment alternatives have been discussed with the patient. These include bleeding -- sometimes to the point of hemorrhaging, infection, risk of bladder perforation, recurrence of bladder tumor in 60-70% of patients, need for indwelling catheter for a variable amount of time, as well as the rare risk of needing an open operation to repair the bladder, among others. Additional therapy as well as follow-up bladder evaluation will most likely be required. Full informed consent has been obtained. Will order General anesthesia. Follow-up With When Contact Information Yosef GRIMES MD, URL [facility] (more content not included)... Normal [facility] Comment on above: Result Comment: Electronically Signed By : Yosef GRIMES MD\.br\Date and Time Signed: 01/10/24 13:13 EST\.br\Electronically Co-Signed By: Hawa Land\.br\Date and Time Co-Signed: 01/10/24 13:12 EST Ambulatory Visit Summaryon 1 03-10-2023 Ambulatory Visit Summary Ambulatory Visit Summary ADOLPH JOHNS Peng :1945 Visit Date:01/08/2024 Ambulatory Visit Instructions Your Diagnosis Prostate cancer Gross hematuria Bladder tumor Your Care Team Attending Physician - Yosef GRIMES MD Primary Care Physician - Shilpa Naylor This Is Your Medications List ciprofloxacin (Cipro 500 mg Tab) Contact prescribing physician if questions or concerns Misc Prescription (Eliguard) Non-Formulary Medication (Misc Medication) abiraterone (abiraterone 250 mg oral tablet) hydrochlorothiazide-l isinopril (hydrochlorothiazide- lisinopril 12.5 mg-10 mg Tab) predniSONE (predniSONE 5 mg Tab) Procedures Performed TURBT - Transurethral resection of bladder tumor (11/10/2022), Cystoscopy (11/01/2022), Radical retropubic prostatectomy with bilateral pelvic lymphadenectomy (01/07/2016), Transrectal biopsy of prostate using ultrasound (US) guidance (11/03/2015), Colonoscopy (2015), Colonoscopy (02/07/2012). Discharge Vitals Temperature (Oral) 37 ???C Heart Rate (Peripheral) 70 Respiratory Rate 18 Blood Pressure 137/83 Height 190 cm Height 75 in Weight 119.9 kg Weight 264.334 lb BMI 33.21 What to do next Scheduled Follow-Up Appointments Monday 1:00 PM EST With: Yosef GRIMES MD Where: [facility] [address] [address]- Monday 12:45 PM EDT With: Yosef GRIMES MD Where: [facility] [address] [place] [address] 11:00 AM EDT With: Where: [facility] [address] [address]- You Need to Schedule the Following Appointments Follow Up with Yosef GRIMES MD, URL When: Where: [facility] [address], [place] [address] [phone] Medications What How Much When Instructions New ciprofloxacin (Cipro 500 mg Tab) 1 Tablets By Mouth Every day take one tab day before procedure and one tab after procedure Pickup at [facility] Unchanged abiraterone (abiraterone 250 mg oral tablet) 4 Tablets By Mouth Every day Contact prescribing physician if questions or concerns Unchanged hydrochlorothiazide-l isinopril (hydrochlorothiazide- lisinopril 12.5 mg-10 mg Tab) 1 Tablets By Mouth Every day Duration: 90 Days Contact prescribing physician if questions or concerns Unchanged Misc Prescription (Eliguard) 0 As Directed injection every 6 months Contact prescribing physician if questions or concerns Unchanged Non-Formulary Medication (Misc Medication) Vitamin D3 with Calcium Contact prescribing physician if questions or concerns Unchanged predniSONE (predniSONE 5 mg Tab) Contact prescribing physician if questions or concerns Pharmacy Information [facility]: [address] [place], [place] [id number] [phone] Allergies oxytetracycline (Fever, Swelling at injection site) penicillin (Swelling at injection site) Problems Ongoing - Any problem that you are currently receiving treatment for. Bladder tumor BMI 34.0-34.9,adult Class 1 obesity due to excess calories with body mass index (BMI) of 33.0 to 33.9 in adult Epididymitis Gross hematuria History of prostate cancer Hypertension Microscopic hematuria Nocturia Prostate cancer Proteinuria Right knee pain Rising PSA following treatment for malignant neoplasm of prostate Urinary frequency Urinary urgency Wellness examination Patient Survey You may receive a survey via text or e-mail asking about your office visit. Please share your experience with us by completing your survey. We appreciate your feedback and thank you for choosing us for your care. Education Materials Cystoscopy Cystoscopy is a procedure that is used to help diagnose and sometimes treat conditions that affect the lower urinary tract. The lower urinary tract includes the bladder and the urethra. The urethra is the tube that drains urine from the bladder. Cystoscopy is done using a thin, tube-shaped instrument with a light and camera at the end (cystoscope). The cystoscope may be hard or flexible, depending on the goal of the procedure. The cystoscope is inserted through the urethra, into the bladder. Cystoscopy may be recommended if you have: ??? Urinary tract infections that keep coming back. ??? Blood in the urine (hematuria). ??? An inability to control when you urinate (urinary incontinence) or an overactive bladder. ??? Unusual cells found in a urine sample. ??? A blockage in the urethra, such as a urinary stone. ??? Painful urination. ??? An abnormality in the bladder found during an intravenous pyelogram (IVP) or CT scan. Cystoscopy may also be done to remove a sample of tissue to be examined under a microscope (biopsy (more content not included)... Normal [facility] Urine Cytology ([facility])on 03-10-2023 Method of Extraction Voided Normal [facility] Comment on above: Performed By: #### [id number] #### [facility] [address] [place] [address] Number of Jars 1 Invalid Interpretation Code [facility] Comment on above: Performed By: #### [id number] #### [facility] [address] [place] [address] Specimen Urine Normal [facility] Comment on above: Performed By: #### [id number] #### [facility] [address] [facility] [place] [address] Type of Service Technical Only Normal [facility] Comment on above: Performed By: #### [id number] #### [facility] [address] [facility] [place] [address] Urology Office/Clinic Noteon 01-08-2024 Urology Office/Clinic Note Urology Office/Clinic Note Chief Complaint gross hematuria HPI Staff Pt here due to experiencing gross hematuria intermittently for the past few weeks. Submitted urine sample 01/01/24 which showed trace-lysed blood, neg for infection. Last OV 11/24/23, received Eligard. Previous dx: prostate cancer (s/p radical prostatectomy 01/07/16) and bladder tumor. Has f/u 05/20/24 for PSA and Eligard. Dysuria: denies Incomplete bladder emptying: denies Hematuria: a week ago , and the week before that, pt had blood filling the whole toilet. has not seen any blood since Frequency: about every 2 hours Urgency: yes Nocturia: 1x per night Stream: good stream Leaking: denies Post void dripping: denies Wearing pads/ Depends: denies Urge incontinence: denies Stress incontinence: rarely, sometimes he has had small amount of leaking when he has to urinate badly and he bends over Incontinence without Sensory Awareness: denies Abdominal pain: denies Flank pain: denies Sexual complaints: denies History of Present Illness Tests reviewed: reviewed UA, urine culture I have reviewed the previous health record information and history for this patient from Dr. Grimes. I have reviewed and verified the staff HPI to be accurate for this encounter. Review of Systems PHQ Score Initial Depression Screen Score: 0 SCORE ROS - Provider Constitutional: denies weight loss, denies hot flashes. Eyes: denies eye problems. Gastrointestinal: denies nausea, denies vomiting. Cardiovascular: denies chest pain or angina. Integumentary: no dryness Musculoskeletal: denies musculoskeletal symptoms. ENMT: denies otolaryngeal symptoms. Respiratory: no shortness of breath. Heme/Lymph: denies easy bleeding tendency, denies easy bruising tendency. Psychiatric: no confusion, no anxiety. Genitourinary: See HPI. Physical Exam Vitals & Measurements T: 37 ???C(Oral) HR: 70(Peripheral) RR: 18 BP: 137/83 HT: 75 in HT: 190 cm WT: 119.9 kg WT: 264.334 lb BMI: 33.21 General Appearance: alert, no distress, well nourished, well developed male. Assessment/Plan 1. Prostate cancer (C61: Malignant neoplasm of prostate) PSA: 11/11/19 - 0.06 10/05/20 - 0.05 09/14/21 - <0.13 09/26/22 - 2.0 10/03/22 - 1.3 05/08/23 - <0.02 11/09/23 - <0.02 S/p Radical Prostatectomy 01/07/16 - perineural invasion but negative margins. PSMA PET scan 10/28/22 at [facility] - neg for mets; approx 1.5cm R posterior lateral periprostatic/seminal vesicle region soft tissue tracer avid lesion suspicious for recurrence. S/p Cysto/TURBT 11/10/22 - metastatic poorly differentiated adenocarcinoma consistent w/ prostatic primary. MRI pelvis 11/28/22 (ordered by Dr Kumari) Recurrent mass arising/expanding from the right vas deferens remnant with adjacent conglomerate RIGHT pelvic lymphadenopathy, as detailed in the report. First Eligard inj given 12/02/22. Casodex (started 10/2022) was switched to abiraterone/prednison e 12/08/22. EBRT 12/14/22 - 02/02/23. [1] Eligard administered 05/22/23 and 11/24/23. Taking abiraterone/prednison e. -Cont Vit D and Calcium for bone health -Has f/u 05/20/24 for PSA and Eligard. 2. Gross hematuria (R31.0: Gross hematuria) Experienced painless gross hematuria ~2wks ago through last . 01/01/24: UA trace-lysed blood, neg for infection. UCx neg. UA today negative for blood and infection. Has not had any recurrence of gross hematuria since last week. Denies any pain at time of episode. Had some clots. Denies holding urine. Shares he was doing heavy lifting the day prior to first episode. Discussed possible etiologies of hematuria. Educated pt it is likely radiation cystitis. Recommended cystoscopy to further evaluate. Risks/benefits discussed. Pt is willing to proceed. -Will schedule cystoscopy. The risks and benefits for cystoscopy have been discussed. The risks include bleeding, infection, and irritation of the bladder and urinary channel, among others. The patient, after being informed of procedural details and after questions have been answered, wishes to proceed. Full informed consent has been obtained. Will order Local anesthesia. -Pt will need emptied via catheter at time of cysto (does not think he will be able to make it to the bathroom in time to empty) 3. 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 [2] -See #2 Follow-up With When Contact Information Yosef GRIMES MD, URL [facility] [address], [place] [phone] Additional Instructions: sched cysto Patient Education Cystoscopy Hematuria, Adult I, Odette Cottrell, personally scribed for Dr. Grimes on 01/08/2024 10:14:36. . Documentation recorded by the Odette casas (more content not included)... Normal [facility] Comment on above: Result Comment: Electronically Signed By : Yosef GRIMES MD\.br\Date and Time Signed: 01/08/24 10:19 EST\.br\Electronically Co-Signed By: Odette Cottrell\.br\Date and Time Co-Signed: 01/08/24 10:15 EST C Urineon 01-03-2024 Bacteria identified Cx Nom (U) Microbiology PROCEDURE: Urine Culture [R1] SOURCE: U Random BODY SITE: COLLECTED DATE/TIME: 01/01/2024 08:57 EST RECEIVED DATE/TIME: 01/01/2024 17:14 EST START DATE/TIME: 01/01/2024 17:14 EST FREE TEXT SOURCE: Yosef GRIMES MD, MD, Patrick R FINAL REPORTS Final Report [] Verified Date/Time: 01/03/2024 09:40 EST 500 cfu/ml Mixed skin contaminants Performing Locations R1: This test was performed at: [facility], [address] [place] [address], [phone] , [place], [facility] Comment on above: Performed By: #### [id number] #### [facility] [address] [place] [id number] Ambulatory Visit Summaryon 1 03-02-2023 Ambulatory Visit Summary Ambulatory Visit Summary ADOLPH JOHNS :1945 Visit Date:01/01/2024 Ambulatory Visit Instructions Your Diagnosis Microscopic hematuria Your Care Team Attending Physician - Yosef GRIMES MD Primary Care Physician - Shilpa Naylor This Is Your Medications List Misc Prescription (Eliguard) Non-Formulary Medication (Misc Medication) abiraterone (abiraterone 250 mg oral tablet) hydrochlorothiazide-l isinopril (hydrochlorothiazide- lisinopril 12.5 mg-10 mg Tab) predniSONE (predniSONE 5 mg Tab) Procedures Performed TURBT - Transurethral resection of bladder tumor (11/10/2022), Cystoscopy (11/01/2022), Radical retropubic prostatectomy with bilateral pelvic lymphadenectomy (01/07/2016), Transrectal biopsy of prostate using ultrasound (US) guidance (11/03/2015), Colonoscopy (2015), Colonoscopy (02/07/2012). What to do next Scheduled Follow-Up Appointments Monday 9:00 AM EST With: Yosef GRIMES MD Where: [facility] [address] [place] [address]- Monday 12:45 PM EDT With: Yosef GRIMES MD Where: [facility] [address] [place] [address] 2024 11:00 AM EDT With: Where: [facility] [address] [address]- Medications What How Much When Instructions Unchanged abiraterone (abiraterone 250 mg oral tablet) 4 Tablets By Mouth Every day Unchanged hydrochlorothiazide-l isinopril (hydrochlorothiazide- lisinopril 12.5 mg-10 mg Tab) 1 Tablets By Mouth Every day Duration: 90 Days Unchanged Misc Prescription (Eliguard) 0 As Directed injection every 6 months Unchanged Non-Formulary Medication (Misc Medication) Vitamin D3 with Calcium Unchanged predniSONE (predniSONE 5 mg Tab) Allergies oxytetracycline (Fever, Swelling at injection site) penicillin (Swelling at injection site) Problems Ongoing - Any problem that you are currently receiving treatment for. Bladder tumor BMI 34.0-34.9,adult Class 1 obesity due to excess calories with body mass index (BMI) of 33.0 to 33.9 in adult Epididymitis History of prostate cancer Hypertension Microscopic hematuria Nocturia Prostate cancer Proteinuria Right knee pain Rising PSA following treatment for malignant neoplasm of prostate Urinary frequency Urinary urgency Wellness examination Patient Survey You may receive a survey via text or e-mail asking about your office visit. Please share your experience with us by completing your survey. We appreciate your feedback and thank you for choosing us for your care. Normal [facility] 12-29-2023 MINDA Telephone (RADMICHAELA) ADOLPH JOHNS ([id number]) 1945 M Date Time Provider Department 12/29/23 David KUMARI During your visit today, we recorded the following information about you: Yuko Barahona LPN 12/29/2023 11:50 AM Signed Adolph left a message stating he has blood in his urine and would like to see Dr. Kumari on Monday. Adolph completed radiation therapy to the pelvis and prostate bed/bladder base 02/02/23. Last office visit was 11/16/[address] Kumari and Dr. Hwang. Adolph continues taking abiraterone and prednisone per Dr. Hwang. Next scheduled follow up is 05/14/24. I called and spoke to Adolph and he said he started with blood in his urine yesterday x 2. He states the blood fills the toilet and that clots are present. He denies blood in his urine today. He denies blood in his stool. He denies fevers, pain/burning with urination, does not push or strain to start his flow, denies low back pain. He states he urinates frequently but that is unchanged since his prostatectomy last year. He states he has a call out to Dr. Grimes also. He is wondering if Dr. Kumari needs to order CT scans. Please advise. SINDI Olivera Ariana, LPN 12/29/2023 3:43 PM Signed Attempted to call patient with Dr. Kumari's recommendation but there was no answer. SINDI Olivera Ariana, LPN 01/01/2024 9:09 AM Signed I left a message for Adolph to call the office. SINDI Olivera Angela, RN 01/01/2024 10:23 AM Signed Pt returned call and was notified. Peggy Lakhani RN Allergies As of Date: 12/29/2023 Noted Allergy Reaction PENICILLINS 10/22/2019 2 - Rash 7 - Swelling TERAMYCIN (OXYTETRACYCLINE) 10/22/2019 16 - Unknown Date Reviewed: 11/16/2023 Reviewed by: Bettina Sargent MA - Fully Assessed Reason for Visit: Hematuria [335] Prescriptions as of 01/01/2024 - abiraterone 250 mg tablet Take 4 tablets by mouth once daily. - predniSONE (DELTASONE) 5 mg tablet Take 1 tablet by mouth once daily. - calcium carbonate/vitamin D3 (CALCIUM WITH VITAMIN D3 ORAL) Take 1 tablet by mouth once daily. - lisinopril-hydrochlor othiazide (PRINZIDE,ZESTORETIC) 10-12.5 mg per tablet Take 1 tablet by mouth once daily. Problem List As Of Date 12/29/2023 Noted Resolved Secondary hyperparathyroidism (HCC) [N25.81] 01/16/2023 Platelets decreased (HCC) [D69.6] 01/16/2023 Encounter Status:Closed by PEGGY LAKHANI on 01/01/24 [facility] Ambulatory Visit Summaryon 1 Ambulatory Visit Summary Ambulatory Visit Summary ADOLPH JOHNS :1945 Visit Date:11/24/2023 Ambulatory Visit Instructions Your Diagnosis Prostate cancer Bladder tumor Your Care Team Attending Physician - Yosef GRIMES MD Primary Care Physician - Shilpa Naylor This Is Your Medications List Contact prescribing physician if questions or concerns Misc Prescription (Eliguard) Non-Formulary Medication (Misc Medication) abiraterone (abiraterone 250 mg oral tablet) hydrochlorothiazide-l isinopril (hydrochlorothiazide- lisinopril 12.5 mg-10 mg Tab) predniSONE (predniSONE 5 mg Tab) Procedures Performed TURBT - Transurethral resection of bladder tumor (11/10/2022), Cystoscopy (11/01/2022), Radical retropubic prostatectomy with bilateral pelvic lymphadenectomy (01/07/2016), Transrectal biopsy of prostate using ultrasound (US) guidance (11/03/2015), Colonoscopy (2015), Colonoscopy (02/07/2012). Discharge Vitals Temperature (Temporal Artery) 37 ?C Heart Rate (Peripheral) 68 Respiratory Rate 16 Blood Pressure 134/86 Height 190 cm Height 75 in Weight 116.5 kg Weight 256.3 lb BMI 32.27 What to do next Scheduled Follow-Up Appointments Monday 12:45 PM EDT With: Yosef GRIMES MD Where: [facility] [address] [address] 2024 11:00 AM EDT With: Where: [facility] [address] [address]- You Need to Schedule the Following Appointments Follow Up with CORNELIO ROSARIO, RADHA Pires When: Where: [address] [place] [address]- Medications What How Much When Instructions Unchanged abiraterone (abiraterone 250 mg oral tablet) 4 Tablets By Mouth Every day Contact prescribing physician if questions or concerns Unchanged hydrochlorothiazide-l isinopril (hydrochlorothiazide- lisinopril 12.5 mg-10 mg Tab) 1 Tablets By Mouth Every day Duration: 90 Days Contact prescribing physician if questions or concerns Unchanged Misc Prescription (Eliguard) 0 As Directed injection every 6 months Contact prescribing physician if questions or concerns Unchanged Non-Formulary Medication (Misc Medication) Vitamin D3 with Calcium Contact prescribing physician if questions or concerns Unchanged predniSONE (predniSONE 5 mg Tab) Contact prescribing physician if questions or concerns Medications and Immunizations Administered Given Eligard 45 mg/6 months subcutaneous injection, extended release, 45 mg, SubCutaneous. For: Prostate cancer Allergies oxytetracycline (Fever, Swelling at injection site) penicillin (Swelling at injection site) Problems Ongoing - Any problem that you are currently receiving treatment for. Bladder tumor BMI 34.0-34.9,adult Class 1 obesity due to excess calories with body mass index (BMI) of 33.0 to 33.9 in adult Epididymitis History of prostate cancer Hypertension Microscopic hematuria Nocturia Prostate cancer Proteinuria Right knee pain Rising PSA following treatment for malignant neoplasm of prostate Urinary frequency Urinary urgency Wellness examination Patient Survey You may receive a survey via text or e-mail asking about your office visit. Please share your experience with us by completing your survey. We appreciate your feedback and thank you for choosing us for your care. Education Materials Prostate Cancer The prostate is a small gland that produces fluid that makes up semen (seminal fluid). It is located below the bladder in men, in front of the rectum. Prostate cancer is the abnormal growth of cells in the prostate gland. What are the causes? The exact cause of this condition is not known. What increases the risk? You are more likely to develop this condition if: ? You are 65 years of age or older. ? You have a family history of prostate cancer. ? You have a family history of breast and ovarian cancer. ? You have genes that are passed from parent to child (inherited), such as BRCA1 and BRCA2. ? You have Ascencio syndrome. men and men of descent are diagnosed with prostate cancer at higher rates than other men. The reasons for this are not well understood and are likely due to a combination of genetic and environmental factors. What are the signs or symptoms? Symptoms of this condition include: ? Problems with urination. This may include: ? A weak or interrupted flow of urine. ? Trouble starting or stopping urination. ? Trouble emptying the bladder all the way. ? The need to urinate more often, especially at night. ? Blood in urine or semen. ? Persistent pain or discomfort in the lower back, lower abdomen, or hips. ? Trouble getting an erection. ? Weakness or numbness in the legs or feet. How is this diagnosed? Th (more content not included)... Normal [facility] Office/Clinic Noteon 11-24-2023 Urology Office/Clinic Note Urology Office/Clinic Note Chief Complaint PSA and Eligard injection HPI Staff 78 yr old male here for 6 month f/u with Eligard injection. Dx: prostate cancer (radical prostatectomy 01/07/16) and bladder tumor PSA done 11/09/23 is <0.02 Abiraterone 1000mg qd was started at last OV Dysuria: denies Incomplete bladder emptying: denies Hematuria: denies Frequency: denies Urgency: denies Nocturia: 1x Stream: good and steady Leaking: denies Post void dripping: denies Wearing pads/ Depends: denies Urge incontinence: denies Stress incontinence: denies Incontinence without Sensory Awareness: denies Abdominal pain: denies Flank pain: denies Sexual complaints: denies History of Present Illness Tests reviewed: reviewed UA, rad onc notes, PSA. I have reviewed the previous health record information and history for this patient from Dr. Grimes. I have reviewed and verified the staff HPI to be accurate for this encounter. There have been no associated fever, chills, flank pain, or blood in the urine. Denies any urinary infections since last encounter. Review of Systems PHQ Score Initial Depression Screen Score: 0 SCORE ROS - Provider Constitutional: denies weight loss, denies hot flashes. Eyes: denies eye problems. Gastrointestinal: denies nausea, denies vomiting. Cardiovascular: denies chest pain or angina. Integumentary: no dryness Musculoskeletal: denies musculoskeletal symptoms. ENMT: denies otolaryngeal symptoms. Respiratory: no shortness of breath. Heme/Lymph: denies easy bleeding tendency, denies easy bruising tendency. Psychiatric: no confusion, no anxiety. Genitourinary: See HPI. Physical Exam Vitals & Measurements T: 37 ?C(Temporal Artery) HR: 68(Peripheral) RR: 16 BP: 134/86 HT: 75 in HT: 190 cm WT: 116.5 kg WT: 256.3 lb BMI: 32.27 General Appearance: alert, no distress, well nourished, well developed male. Assessment/Plan 1. Prostate cancer (C61: Malignant neoplasm of prostate) PSA: 11/11/19 - 0.06 10/05/20 - 0.05 09/14/21 - <0.13 09/26/22 - 2.0 10/03/22 - 1.3 05/08/23 - <0.02 11/09/23 - <0.02 S/p Radical Prostatectomy 01/07/16 - perineural invasion but negative margins. PSMA PET scan 10/28/22 at [facility] - neg for mets; approx 1.5cm R posterior lateral periprostatic/seminal vesicle region soft tissue tracer avid lesion suspicious for recurrence. S/p Cysto/TURBT 11/10/22 - metastatic poorly differentiated adenocarcinoma consistent w/ prostatic primary. MRI pelvis 11/28/22 (ordered by Dr Kumari) Recurrent mass arising/expanding from the right vas deferens remnant with adjacent conglomerate RIGHT pelvic lymphadenopathy, as detailed in the report. First Eligard inj given 12/02/22. Casodex (started 10/2022) was switched to abiraterone/prednison e 12/08/22. EBRT 12/14/22 - 02/02/23. Last seen by Dr. Kumari 11/16/23 ~cont Eligard q6mos. Follow up scheduled 05/2024. Pt states he was told that in 2 years he could possibly stop medications. Pt unsure what this meant. Recommended he discuss this further at his next appointment. Taking abiraterone/prednison e. Eligard administered 05/22/23. Taking D3 with calcium. Eligard 45mg IM administered today. R buttock. Pt states the only SE he has experienced is fatigue but states he can live with this. -Cont Vit D and Calcium for bone health -Follow up in 6 mos w/ PSA and Eligard 2. 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 [1] UA today negative for blood and infection. Denies any recent gross hematuria episodes. Follow-up With When Contact Information CORNELIO ROSARIO, Yosef Bunch, URL [address] [place] [address]- Additional Instructions: 6 mos w/ PSA & Eligard Patient Education Prostate Cancer I, Esme Noonan, personally scribed for Dr. Grimes on 11/24/2023 12:35:23. . Documentation recorded by the scribe, Esme Noonan, accurately reflects the services(s) I performed and decisions made by me. Authenticated by Dr. Grimes on 11/24/2023 12:43:00. Problem List/Past Medical History Ongoing Bladder tumor BMI 34.0-34.9,adult Class 1 obesity due to excess calories with body mass index (BMI) of 33.0 to 33.9 in adult Epididymitis History of prostate cancer Hypertension Microscopic hematuria Nocturia Prostate cancer Proteinuria Right knee pain Rising PSA following treatment for malignant neoplasm of prostate Urinary frequency Urinary urgency Wellness examination Historical No qualifying data Procedure/Surgical History TURBT - Transurethral resection of bladder tumor (11/10/2022), Cystoscopy (11/01/2022), Radical retropubic prostatectomy with bilateral pelvic lymphadenectomy (01/07/2016), Transrectal biopsy of (more content not included)... Normal [facility] Comment on above: Result Comment: Electronically Signed By : Yosef GRIMES MD\.br\Date and Time Signed: 11/24/23 12:43 EDT\.br\Electronically Co-Signed By: Esme Noonan\.br\Date and Time Co-Signed: 11/24/23 12:36 EDT Basic metabolic 2000 panelOr dered By: Holly Díaz on 11-16-2023 Anion gap [Moles/Vol] 13 mmol/L 8 - 15 mmol/L [facility] Calcium [Mass/Vol] 10.3 mg/dL High 8.5 - 10.2 mg/dL [facility] Chloride [Moles/Vol] 102 mmol/L 98 - 107 mmol/L [facility] CO2 [Moles/Vol] 23 mmol/L 22 - 30 mmol/L [facility] Creatinine [Mass/Vol] 1.35 mg/dL High 0.73 - 1.22 mg/dL [facility] GFR/1.73 sq M.predicted among non-blacks MDRD (S/P/Bld) [Vol rate/Area] 54 mL/min/{1.73_m2} Low - PINF [facility] Comment on above: Estimated Glomerular Filtration Rate (eG FR) is calculated using the 2020 CKD-EPI creatinine equation. This equation utilizes serum creatinine, sex, and age as parameters. The creatinine assay has traceable calibration to isotope dilution-mass spectrometry. Refer to KDIGO guidelines for clinical interpretation. In patients with unstable renal function, e.g. those with acute kidney injury, the eGFR may not accurately reflect actual GFR. Glucose [Mass/Vol] 276 mg/dL High 74 - 99 mg/dL [facility] Comment on above: The [place] Diabetes Association (ADA) provides guidance for cutoff values for fasting glucose and random glucose. The ADA defines fasting as no caloric intake for at least 8 hours. Fasting plasma glucose results between 100 to 125 mg/dL indicate increased risk for diabetes (prediabetes). Fasting plasma glucose results greater than or equal to 126 mg/dL meet the criteria for diagnosis of diabetes. In the absence of unequivocal hyperglycemia, results should be confirmed by repeat testing. In a patient with classic symptoms of hyperglycemia or hyperglycemic crisis, random plasma glucose results greater than or equal to 200 mg/dL meet the criteria for diagnosis of diabetes. Reference: Standards of Medical Care in Diabetes 2016, [place] Diabetes Association. Diabetes Care. 2016.39(Suppl 1). Interpretation and review of laboratory results Abnormal [facility] Potassium [Moles/Vol] 4.0 mmol/L 3.7 - 5.1 mmol/L [facility] Sodium [Moles/Vol] 138 mmol/L 136 - 144 mmol/L [facility] Urea nitrogen [Mass/Vol] 22 mg/dL 9 - 24 mg/dL [facility] Basic metabolic 2000 panelon 11-16-2023 Anion gap [Moles/Vol] 13 mmol/L Normal 8-15 [facility] Comment on above: Order Comment: Specimen Type: BLOOD SPEC IMEN Ordering Facility: [facility] Address: [address] [place] [address] Performed By: #### I FESC #### [facility] CLIA [id number] [address] [place] [address] [place] Calcium [Mass/Vol] 10.3 mg/dL High 8.5-10.2 [facility] Comment on above: Order Comment: Specimen Type: BLOOD SPEC IMEN Ordering Facility: [facility] Address: [address] [place] [address] Performed By: #### I FESC #### [facility] CLIA [id number] [address] [place] [address] [place] Chloride [Moles/Vol] 102 mmol/L Normal 98-107 [facility] Comment on above: Order Comment: Specimen Type: BLOOD SPEC IMEN Ordering Facility: [facility] Address: [address] [place] [address] Performed By: #### I FESC #### [facility] CLIA [id number] [address] [place] [address] [place] CO2 [Moles/Vol] 23 mmol/L Normal 22-30 [facility] Comment on above: Order Comment: Specimen Type: BLOOD SPEC IMEN Ordering Facility: [facility] Address: [address] [place] [address] Performed By: #### I FESC #### [facility] CLIA [id number] [address] [place] [address] [place] Creatinine [Mass/Vol] 1.35 mg/dL High 0.73-1.22 [facility] Comment on above: Order Comment: Specimen Type: BLOOD SPEC IMEN Ordering Facility: [facility] Address: [address] [place] [address] Performed By: #### I FESC #### [facility] CLIA [id number] [address] [place] [address] [place] Creatinine and Glomerular filtration rate.predicted panel (S/P/Bld) 54 mL/min/1.73m??? Low >=60 [facility] Comment on above: Order Comment: Specimen Type: BLOOD SPEC IMEN Ordering Facility: [facility] Address: [address] [place] [address] Result Comment: Paty mated Glomerular Filtration Rate (eGFR) is calculated using the 2020 CKD-EPI creatinine equation. This equation utilizes serum creatinine, sex, and age as parameters. The creatinine assay has traceable calibration to isotope dilution-mass spectrometry. Refer to KDIGO guidelines for clinical interpretation. In patients with unstable renal function, e.g. those with acute kidney injury, the eGFR may not accurately reflect actual GFR. Performed By: #### I FESC #### [facility] CLIA [id number] [address] [place] [address] [place] Glucose [Mass/Vol] 276 mg/dL High 74-99 [facility] Comment on above: Order Comment: Specimen Type: BLOOD SPEC IMEN Ordering Facility: [facility] Address: [address] [place] [address] Result Comment: The [place] Diabetes Association (ADA) provides guidance for cutoff values for fasting glucose and random glucose. The ADA defines fasting as no caloric intake for at least 8 hours. Fasting plasma glucose results between 100 to 125 mg/dL indicate increased risk for diabetes (prediabetes). Fasting plasma glucose results greater than or equal to 126 mg/dL meet the criteria for diagnosis of diabetes. In the absence of unequivocal hyperglycemia, results should be confirmed by repeat testing. In a patient with classic symptoms of hyperglycemia or hyperglycemic crisis, random plasma glucose results greater than or equal to 200 mg/dL meet the criteria for diagnosis of diabetes. Reference: Standards of Medical Care in Diabetes 2016, [place] Diabetes Association. Diabetes Care. 2016.39(Suppl 1). Performed By: #### I FESC #### [facility] CLIA [id number] [address] [place] [address] [place] Potassium [Moles/Vol] 4.0 mmol/L Normal 3.7-5.1 [facility] Comment on above: Order Comment: Specimen Type: BLOOD SPEC IMEN Ordering Facility: [facility] Address: [address] [place] [address] Performed By: #### I FESC #### [facility] CLIA [id number] [address] [place] [address] [place] Sodium [Moles/Vol] 138 mmol/L Normal 136-144 [facility] Comment on above: Order Comment: Specimen Type: BLOOD SPEC IMEN Ordering Facility: [facility] Address: [address] [place] [address] Performed By: #### I FESC #### [facility] CLIA [id number] [address] [place] [address] [place] Urea nitrogen [Mass/Vol] 22 mg/dL Normal 9-24 [facility] Comment on above: Order Comment: Specimen Type: BLOOD SPEC IMEN Ordering Facility: [facility] Address: [address] [place] [address] Performed By: #### I FESC #### [facility] CLIA [id number] [address] [place] [address] [place] CBC W Auto Differential pane l (Bld)on 11-16-2023 Basophils (Bld) [#/Vol] 0.03 10*3/uL [facility] Basophils/100 WBC (Bld) 0.4 % [facility] Differential cell count method Nom (Bld) Auto [facility] Eosinophils (Bld) [#/Vol] 0.08 10*3/uL [facility] Eosinophils/100 WBC (Bld) 1.0 % [facility] Erythrocyte distribution width (RBC) [Ratio] 14.6 % 11.5 - 15.0 % [facility] Hematocrit (Bld) [Volume fraction] 40.6 % 39.0 - 51.0 % [facility] Hemoglobin (Bld) [Mass/Vol] 13.7 g/dL 13.0 - 17.0 g/dL [facility] Immature granulocytes (Bld) [#/Vol] 0.12 10*3/uL High [facility] Immature granulocytes/100 WBC (Bld) 1.5 % [facility] Interpretation and review of laboratory results Abnormal [facility] Lymphocytes (Bld) [#/Vol] 0.64 10*3/uL Low [facility] Lymphocytes/100 WBC (Bld) 7.9 % [facility] MCH (RBC) [Entitic mass] 30.6 pg 26.0 - 34.0 pg [facility] MCHC (RBC) [Mass/Vol] 33.7 g/dL 30.5 - 36.0 g/dL [facility] MCV (RBC) [Entitic vol] 90.8 fL 80.0 - 100.0 fL [facility] Monocytes (Bld) [#/Vol] 0.50 10*3/uL [facility] Monocytes/100 WBC (Bld) 6.2 % [facility] Neutrophils (Bld) [#/Vol] 6.74 10*3/uL [facility] Neutrophils/100 WBC (Bld) 83.0 % [facility] Nucleated RBC (Bld) [#/Vol] [facility] Nucleated RBC/100 WBC (Bld) [Ratio] 0.0 % /100 WBC [facility] Platelet mean volume (Bld) [Entitic vol] 10.2 fL 9.0 - 12.7 fL [facility] Platelets (Bld) [#/Vol] 191 10*3/uL [facility] RBC (Bld) [#/Vol] 4.47 10*6/uL 4.20 - 6.00 m/uL [facility] WBC (Bld) [#/Vol] 8.11 10*3/uL [facility] Basophils (Bld) [#/Vol] 0.03 10*3/uL Normal <0.11 [facility] Comment on above: Order Comment: Specimen Type: BLOOD SPEC IMENOrdering Facility: [facility] Address: [address] [place] [address] Performed By: #### 5 7021-8 ####[facility] LABCLIA [id number] [place] [address] Basophils/100 WBC (Bld) 0.4 % Normal [facility] Comment on above: Order Comment: Specimen Type: BLOOD SPEC IMENOrdering Facility: [facility] Address: [address] [place] [address] Performed By: #### 5 7021-8 ####[facility] LABCLIA [id number] [place] [address] Differential cell count method Nom (Bld) Auto Normal [facility] Comment on above: Order Comment: Specimen Type: BLOOD SPEC IMENOrdering Facility: [facility] Address: [address] [place] [address] Performed By: #### 5 7021-8 ####[facility] LABCLIA [id number] [place] [address] Eosinophils (Bld) [#/Vol] 0.08 10*3/uL Normal <0.46 [facility] Comment on above: Order Comment: Specimen Type: BLOOD SPEC IMENOrdering Facility: [facility] Address: [address] [place] [address] Performed By: #### 5 7021-8 ####[facility] LABCLIA [id number] [place] [address] Eosinophils/100 WBC (Bld) 1.0 % Normal [facility] Comment on above: Order Comment: Specimen Type: BLOOD SPEC IMENOrdering Facility: [facility] Address: [address] [place] [address] Performed By: #### 5 7021-8 ####[facility] LABCLIA [id number] [place] [address] Erythrocyte distribution width (RBC) [Ratio] 14.6 % Normal 11.5-15.0 [facility] Comment on above: Order Comment: Specimen Type: BLOOD SPEC IMENOrdering Facility: [facility] Address: [address] [place] [address] Performed By: #### 5 7021-8 ####[facility] LABCLIA [id number] [place] [address] Hematocrit (Bld) [Volume fraction] 40.6 % Normal 39.0-51.0 [facility] Comment on above: Order Comment: Specimen Type: BLOOD SPEC IMENOrdering Facility: [facility] Address: [address] [place] [address] Performed By: #### 5 7021-8 ####[facility] LABIA [id number] [place] [address] Hemoglobin (Bld) [Mass/Vol] 13.7 g/dL Normal 13.0-17.0 [facility] Comment on above: Order Comment: Specimen Type: BLOOD SPEC IMENOrdering Facility: [facility] Address: [address] [place] [address] Performed By: #### 5 7021-8 ####[facility] LABIA [id number] [place] [address] Immature granulocytes (Bld) [#/Vol] 0.12 10*3/uL High <0.10 [facility] Comment on above: Order Comment: Specimen Type: BLOOD SPEC IMENOrdering Facility: [facility] Address: [address] [place] [address] Performed By: #### 5 7021-8 ####[facility] LABIA [id number] [place] [address] Immature granulocytes/100 WBC (Bld) 1.5 % Normal [facility] Comment on above: Order Comment: Specimen Type: BLOOD SPEC IMENOrdering Facility: [facility] Address: [address] [place] [address] Performed By: #### 5 7021-8 ####[facility] LABIA [id number] [place] [address] Lymphocytes (Bld) [#/Vol] 0.64 10*3/uL Low 1.00-4.00 [facility] Comment on above: Order Comment: Specimen Type: BLOOD SPEC IMENOrdering Facility: [facility] Address: [address] [place] [address] Performed By: #### 5 7021-8 ####[facility] LABCLIA [id number] [place] [address] Lymphocytes/100 WBC (Bld) 7.9 % Normal [facility] Comment on above: Order Comment: Specimen Type: BLOOD SPEC IMENOrdering Facility: [facility] Address: [address] [place] [address] Performed By: #### 5 7021-8 ####[facility] LABCLIA [id number] [place] [address] MCH (RBC) [Entitic mass] 30.6 pg Normal 26.0-34.0 [facility] Comment on above: Order Comment: Specimen Type: BLOOD SPEC IMENOrdering Facility: [facility] Address: [address] [place] [address] Performed By: #### 5 7021-8 ####[facility] LABIA [id number] [place] [address] MCHC (RBC) [Mass/Vol] 33.7 g/dL Normal 30.5-36.0 [facility] Comment on above: Order Comment: Specimen Type: BLOOD SPEC IMENOrdering Facility: [facility] Address: [address] [place] [address] Performed By: #### 5 7021-8 ####[facility] LABIA [id number] [place] [address] MCV (RBC) [Entitic vol] 90.8 fL Normal 80.0-100.0 [facility] Comment on above: Order Comment: Specimen Type: BLOOD SPEC IMENOrdering Facility: [facility] Address: [address] [place] [address] Performed By: #### 5 7021-8 ####[facility] LABIA [id number] [place] [address] Monocytes (Bld) [#/Vol] 0.50 10*3/uL Normal <0.87 [facility] Comment on above: Order Comment: Specimen Type: BLOOD SPEC IMENOrdering Facility: [facility] Address: [address] [place] [address] Performed By: #### 5 7021-8 ####[facility] LABCLIA [id number] [place] [address] Monocytes/100 WBC (Bld) 6.2 % Normal [facility] Comment on above: Order Comment: Specimen Type: BLOOD SPEC IMENOrdering Facility: [facility] Address: [address] [place] [address] Performed By: #### 5 7021-8 ####[facility] LABCLIA [id number] [place] [address] Neutrophils (Bld) [#/Vol] 6.74 10*3/uL Normal 1.45-7.50 [facility] Comment on above: Order Comment: Specimen Type: BLOOD SPEC IMENOrdering Facility: [facility] Address: [address] [place] [address] Performed By: #### 5 7021-8 ####[facility] LABCLIA [id number] [place] [address] Neutrophils/100 WBC (Bld) 83.0 % Normal [facility] Comment on above: Order Comment: Specimen Type: BLOOD SPEC IMENOrdering Facility: [facility] Address: [address] [place] [address] Performed By: #### 5 7021-8 ####[facility] LABCLIA [id number] [place] [address] Nucleated RBC (Bld) [#/Vol] 10*3/uL Normal <0.01 [facility] Comment on above: Order Comment: Specimen Type: BLOOD SPEC IMENOrdering Facility: [facility] Address: [address] [place] [address] Performed By: #### 5 7021-8 ####[facility] LABCLIA [id number] [place] [address] Nucleated RBC/100 WBC (Bld) [Ratio] 0.0 /100 WBC Normal [facility] Comment on above: Order Comment: Specimen Type: BLOOD SPEC IMENOrdering Facility: [facility] Address: [address] [place] [address] Performed By: #### 5 7021-8 ####[facility] LABCLIA [id number] [place] [address] Platelet mean volume (Bld) [Entitic vol] 10.2 fL Normal 9.0-12.7 [facility] Comment on above: Order Comment: Specimen Type: BLOOD SPEC IMENOrdering Facility: [facility] Address: [address] [place] [address] Performed By: #### 5 7021-8 ####[facility] LABCLIA [id number] [place] [address] Platelets (Bld) [#/Vol] 191 10*3/uL Normal 150-400 [facility] Comment on above: Order Comment: Specimen Type: BLOOD SPEC IMENOrdering Facility: [facility] Address: [address] [place] [address] Performed By: #### 5 7021-8 ####[facility] LABCLIA [id number] [place] [address] RBC (Bld) [#/Vol] 4.47 10*6/uL Normal 4.20-6.00 [facility] Comment on above: Order Comment: Specimen Type: BLOOD SPEC IMENOrdering Facility: [facility] Address: [address] [place] [address] Performed By: #### 5 7021-8 ####[facility] LABCLIA [id number] [place] [address] WBC (Bld) [#/Vol] 8.11 10*3/uL Normal 3.70-11.00 [facility] Comment on above: Order Comment: Specimen Type: BLOOD SPEC IMENOrdering Facility: [facility] Address: [address], [place] [address] Performed By: #### 5 7021-8 ####[facility] LABCLIA [id number] [place] [address] CNOVon 11-16-2023 CNOV Office Visit (RADTSA ) ADOLPH JOHNS ([id number]) 1945 M Date Time Provider Department 11/16/23 2:15 PM David KUMARI During your visit today, we recorded the following information about you: Temperature Pulse Respiration Blood pressure 96.7 degrees 93/minute 18/minute 124/73 Weight 118.6 kg Peggy Lakhani RN 11/16/2023 2:34 PM Signed AUA 6 SINDI Salazar G Phillip, MD 11/24/2023 2:26 PM Signed Radiation Oncology - Follow Up Note PATIENT NAME: Adolph Johns PATIENT DIAGNOSIS: Prostate adenocarcinoma, initial PSA 7.5, biopsy Coreen score 4 + 3 = 7 (grade group 3), pathologic stage T2c, N0, M0, stage IIC [T1-T2, N0, M0, PSA <20, GG 3] (AJCC 8th ed.), s/p prostatectomy January 2016. With recent rising PSA , hematuria and bladder mass status post transurethral resection pathology consistent with metastatic/recurrent adenocarcinoma prostate. RADIATION SUMMARY: DATES OF TREATMENT: 12/14/2022- 02/02/2023 AREA TREATED: Pelvis DELIVERED DOSE: Area: Pelvis Prostate bed Bladder Base 4600 cGy in 23 fractions, 3 Arcs, IMRT, 10 MV with daily CBCT Area: Pelvic Boost 1 1400 cGy in 7 fractions, 3 Arcs, IMRT, 10 MV with daily CBCT Area: Boost 2 1000 cGy in 5 fractions, 2 Arcs, IMRT, 10 MV with daily CBCT TOTAL: 7000cGy in 35 fractions ELAPSED TIME: 50 days. INTERVAL HISTORY: The patient presents for routine follow-up . Doing well. Denies significant problems. PSA HISTORY: PSA (ng/mL) Date Value 11/09/2023 <0.02 05/08/2023 <0.02 01/19/2023 <0.02 12/08/2022 1.37 ALLERGIES Allergen Reactions Penicillins Rash, Swelling Teramycin [Oxytetra* Unknown calcium carbonate/vitamin D3 (CALCIUM WITH VITAMIN D3 ORAL) Take 1 tablet by mouth once daily. lisinopril-hydrochlor othiazide (PRINZIDE,ZESTORETIC) 10-12.5 mg per tablet Take 1 tablet by mouth once daily. abiraterone 250 mg tablet Take 4 tablets by mouth once daily. predniSONE (DELTASONE) 5 mg tablet Take 1 tablet by mouth once daily. REVIEW OF SYSTEMS: D/N = 4-07/07 Hematuria: none Dysuria: none Incontinence: none Urgency: none Catheter use: none Medications to aid urination: no - Total AUA Score: 6 Bowel movement frequency: 1/day Bowel movement quality: normal Blood per rectum: none Androgen deprivation: Lupron/abiraterone/pr ednisone PHYSICAL EXAM: 11/16/23 1413 BP: 124/73 Pulse: 93 Resp: 18 Temp: (!) 35.9 ?C (96.7 ?F) SpO2: 94% Weight: 118.6 kg (261 lb 7.5 oz) KPS: 100 General Appearance: Alert and oriented. No acute distress. Rectal exam is deferred. ASSESSMENT/PLAN: Prostate adenocarcinoma, initial PSA 7.5, biopsy Coreen score 4 + 3 = 7 (grade group 3), pathologic stage T2c, N0, M0, stage IIC [T1-T2, N0, M0, PSA <20, GG 3] (AJCC 8th ed.), s/p prostatectomy January 2016. With recent rising PSA , hematuria and bladder mass status post transurethral resection pathology consistent with metastatic/recurrent adenocarcinoma prostate. Status post pelvic/prostate bed radiation completed 02/02/23 and ADT. Overall doing well. PSA remains undetectable. No significant posttreatment problems. Plan to see patient back in 6 months. He has continued follow-up with medical oncology. Signed by: David Kumari MD cc: Shahriar Stephenson [address] [place] [phone] No referring provider defined for this encounter. Allergies As of Date: 11/16/2023 Noted Allergy Reaction PENICILLINS 10/22/2019 2 - Rash 7 - Swelling TERAMYCIN (OXYTETRACYCLINE) 10/22/2019 16 - Unknown Date Reviewed: 11/16/2023 Reviewed by: Bettina Sargent FRANSISCO - Fully Assessed Reason for Visit: Prostate Cancer [590] Primary Visit Diagnosis:Malignant neoplasm of prostate (HCC) [C61] Order(s):PROSTATE-SPE CIFIC ANTIGEN DIAGNOSTIC [SQPSA] Order #: [id number] FUTURE Prescriptions as of 11/24/2023 - abiraterone 250 mg tablet Take 4 tablets by mouth once daily. - predniSONE (DELTASONE) 5 mg tablet Take 1 tablet by mouth once daily. - calcium carbonate/vitamin D3 (CALCIUM WITH VITAMIN D3 ORAL) Take 1 tablet by mouth once daily. - lisinopril-hydrochlor othiazide (PRINZIDE,ZESTORETIC) 10-12.5 mg per tablet Take 1 tablet by mouth once daily. Problem List As Of Date 11/16/2023 Noted Resolved Secondary hyperparathyroidism (HCC) [N25.81] 01/16/2023 Platelets decreased ([facility]) [D69.6] 01/16/2023 Visit Notes: >> Peggy Lakhani RN [facility] Nov 16, 2023 2:14 PM Status: Signed AUA 6 Peggy Lakhani RN Disposition: Return in about 6 months (around 05/16/2024). Follow-up and Disposition History for Encounter Date Provider Department Center 11/16/2023 [id number] KUMARI [facility] Jose Encounter Status:Closed by David KUMARI on 11/24/23 [facility] CNOVSPon 11-16-2023 CNOVSP Visit (SP) Office ([facility]) ADOLPH JOHNS ([id number]) 1945 M Date Time Provider Department 11/16/23 3:00 PM NICOLAS HWANG During your visit today, we recorded the following information about you: Temperature Pulse Respiration Blood pressure 96.7 degrees 93/minute 18/minute 124/73 Weight Height 118.5 kg 1.93 m Nicolas Hwang MD 11/16/2023 9:31 PM Signed PATIENT NAME: Adolph Johns DATE: 11/16/2023 PRIMARY CARE PHYSICIAN: Dr. René Stephenson OTHER PHYSICIANS: Dr. Grimes, Dr. Kumari Portions of this encounter note have been copied from the note from 05/18/2023 and has been updated where appropriate, and reflect my current medical decision making from today. CC: This is a 78 year old male with a history of MGUS and recurrent prostate cancer, seen for scheduled follow-up. INTERIM HISTORY: Since the patient's last visit here he has had no significant medical changes. He remains on abiraterone 1000 mg plus prednisone 5 mg daily and is tolerating it well. He also remains on Eligard every [address] Grimes. Overall feels well today with no particular complaints. No difficulties with urination. He plans to travel to [place] next week where he plans to spend the winter. MEDICATIONS: abiraterone 250 mg tablet Take 4 tablets by mouth once daily. predniSONE (DELTASONE) 5 mg tablet Take 1 tablet by mouth once daily. calcium carbonate/vitamin D3 (CALCIUM WITH VITAMIN D3 ORAL) Take 1 tablet by mouth once daily. lisinopril-hydrochlor othiazide (PRINZIDE,ZESTORETIC) 10-12.5 mg per tablet Take 1 tablet by mouth once daily. ALLERGIES: Penicillins and Teramycin [Oxytetracycline] PAST MEDICAL HISTORY: PAST MEDICAL HISTORY Diagnosis Date HTN (hypertension) MGUS (monoclonal gammopathy of unknown significance) Prostate cancer (HCC) PAST SURGICAL HISTORY: PAST SURGICAL HISTORY Procedure Laterality Date COLONOSCOPY 2013 RADICAL PROSTATECTOMY REVIEW OF SYSTEMS: General: No weight loss, malaise or fevers. HEENT: Negative for frequent or significant headaches. No changes in hearing or vision, no nose bleeds or other nasal problems. Respiratory: Negative for cough, wheezing or shortness of breath. Cardiovascular: Negative for chest pain, leg swelling or palpitations. GI: Negative for abdominal discomfort, blood in stools or black stools or change in bowel habits. : No history of dysuria, frequency or incontinence. Musculoskeletal: Negative for: joint pain or swelling, back pain and muscle pain. Skin: Negative for lesions, rash and itching. Hematology/Lymphology : Negative for prolonged bleeding, bruising easily or swollen nodes. Neuro: No history of headaches, syncope, paralysis, seizures or tremors. PHYSICAL EXAM: Vitals: BP 124/73 Pulse 93 Temp (!) 35.9 ?C (96.7 ?F) (Temporal) Resp 18 Ht 193 cm (6' 3.98 ) Wt 118.5 kg (261 lb 3.9 oz) SpO2 94% BMI 31.81 kg/m? ECOG 0 Exam limited to gross visualization where appropriate due to COVID-19. Gen.: This is an age-appropriate patient in no acute distress. Head: Appears atraumatic with no visible lesions. Eyes: Pupils equally round and reactive to light, extraocular muscles are intact. Neck: Supple. Mouth: Masked. Respiratory: Appears to be respiring comfortably. Neurologic: Nonfocal to gross visualization. Alert and oriented ?3. Psychiatric: No evidence of inappropriate anxiety or depression. Skin: Visible areas of skin without rash, lesions, wounds or petechiae. PATHOLOGY: 11/10/2022 Bladder tumor, TURBT ([facility]) Metastatic poorly differentiated adenocarcinoma, consistent with prostate primary. LABORATORY DATA: Hemoglobin (g/dL) Date Value 11/16/2023 13.7 10/29/2020 15.8 Hematocrit (%) Date Value 11/16/2023 40.6 10/29/2020 46.8 WBC (k/uL) Date Value 11/16/2023 8.11 10/29/2020 6.85 Platelet Count (k/uL) Date Value 11/16/2023 191 10/29/2020 162 PSA 11/11/2019 0.06 10/05/2020 0.05 09/14/2021 <0.13 09/26/2022 2.05 12/08/2022 1.37 01/19/2023 <0.02 05/08/2023 <0.02 11/09/2023 <0.02 RADIOLOGY/OTHER STUDIES: 11/28/2022 MRI prostate IMPRESSION: Recurrent mass arising/extending from the right vas deferens remanent with adjacent conglomerate RIGHT pelvic lymphadenopathy, as detailed in the report. Additional groin lymph nodes suspicious for metastases, particularly the lymph node adjacent to the RIGHT spermatic cord. 10/28/2022 PSMA PET scan IMPRESSION: HEAD/NECK: * No PSMA-expressing lesions suspicious for metastases. CHEST: * No PSMA-expressing lesions suspicious for metastases. ABDOMENS/PELVIS: * Status post prostatectomy with PSMA-expressing local recurrence and conglomerate RIGHT pelvic sidewall tracer avid lymphadenopathy, as described. * Indeterminate, prominent size, mildly tracer avid RIGHT groin lymph nodes BONES/SOFT (more content not included)... Normal [facility] IMMUNOFIXATION SCREEN, SERUM on 11-16-2023 INTERPRETATION (MPA) Atypical restricted bands are present in the IgG and lambda regions. Consistent with IgG lambda monoclonal gammopathy. Normal [facility] Comment on above: Order Comment: Specimen Type: BLOOD SPEC IMENOrdering Facility: [facility] Address: [address] [place] [address] Performed By: #### I FESC ####[facility] LABCLIA [id number] [place] [address] [place] MPA RESULT M protein is present. Abnormal No M p rotein is identified. [facility] Comment on above: Order Comment: Specimen Type: BLOOD SPEC IMENOrdering Facility: [facility] Address: [address] [place] [address] Performed By: #### I FESC ####[facility] LABCLIA [id number] [place] [address] [place] STAFF REVIEW (MPA) Reviewed by Therese Junior MD Normal [facility] Comment on above: Order Comment: Specimen Type: BLOOD SPEC IMENOrdering Facility: [facility] Address: [address] [place] [address] Performed By: #### I FESC ####[facility] LABCLIA [id number] [place] [address] [place] IMMUNOGLOBULINS,IGG,IGA,IGMo n 11-16-2023 IgA [Mass/Vol] 55 mg/dL Low 70-400 [facility] Comment on above: Order Comment: Specimen Type: BLOOD SPEC IMENOrdering Facility: [facility] Address: [address] [place] [address] Performed By: #### S ERIMM ####[facility] LABCLIA [id number] [place] [address] [place] IgG [Mass/Vol] 1242 mg/dL Normal 700-1600 [facility] Comment on above: Order Comment: Specimen Type: BLOOD SPEC IMENOrdering Facility: [facility] Address: [address] [place] [address] Performed By: #### S ERIMM ####[facility] LABCLIA [id number] [place] [address] [place] IgM [Mass/Vol] 72 mg/dL Normal 40-230 [facility] Comment on above: Order Comment: Specimen Type: BLOOD SPEC IMENOrdering Facility: [facility] Address: [address] [place] [address] Performed By: #### S ERIMM ####[facility] LABCLIA [id number] [place] [address] [place] KAPPA/LIM,FREE,SERon 2023 Immunoglobulin light chains.kappa.zaida e (S) [Mass/Vol] 25.0 mg/L High 3.3-19.4 [facility] Comment on above: Order Comment: Specimen Type: BLOOD SPEC IMEN [facility] Address: [address] [place] [address] Result Comment: Rare ly, increased serum free light chains levels may not be detected or accurately quantified due to prozone phenomenon or in high viscosity samples using this immunoturbidimetric assay. Correlation with other laboratory results and clinical findings is recommended. The Dougherty Free Light Chain was performed using the Binding Site Optilite immunoturbidimetric method. Result obtained with different assay methods or kits cannot be used interchangeably. Performed By: #### I FESC #### [facility] CLIA [id number] [address] [place] [address] [place] Immunoglobulin light chains.kappa/Imm unoglobulin light chains.lambda (S) [Mass ratio] 1.45 Normal 0.26-1.65 [facility] Comment on above: Order Comment: Specimen Type: BLOOD SPEC IMEN [facility] Address: [address] [place] [address] Performed By: #### I FESC #### [facility] [place] [id number] [address] [place] [address] [place] Immunoglobulin light chains.lambda.fr ee [Mass/Vol] 17.2 mg/L Normal 5.7-26.3 [facility] Comment on above: Order Comment: Specimen Type: BLOOD SPEC IMEN [facility] Address: [address] [place] [address] Result Comment: Rare ly, increased serum free light chains levels may not be detected or accurately quantified due to prozone phenomenon or in high viscosity samples using this immunoturbidimetric assay. Correlation with other laboratory results and clinical findings is recommended. The Lambda Free Light Chain was performed using the Binding Site Optilite immunoturbidimetric method. Result obtained with different assay methods or kits cannot be used interchangeably. Performed By: #### I FESC #### [facility] CLIA [id number] [address] [place] [address] [place] PROTEIN ELECTROPHORESIS SERU M WITH FAUSTINA (P)on 11-16-2023 Albumin [Mass/Vol] 4.23 g/dL Normal 3.43-5.41 [facility] Comment on above: Order Comment: Specimen Type: BLOOD SPEC IMEN [facility] Address: [address] [place] [address] Performed By: #### I FESC #### [facility] CLIA [id number] [address] [place] [address] [place] Alpha 1 globulin Elph [Mass/Vol] 0.32 g/dL Normal 0.18-0.43 [facility] Comment on above: Order Comment: Specimen Type: BLOOD SPEC IMEN [facility] Address: [address] [place] [address] Performed By: #### I FESC #### [facility] CLIA [id number] [address] [place] [address] [place] Alpha 2 globulin Elph [Mass/Vol] 0.80 g/dL Normal 0.42-0.98 [facility] Comment on above: Order Comment: Specimen Type: BLOOD SPEC IMEN [facility] Address: [address] [place] [address] Performed By: #### I FESC #### [facility] CLIA [id number] [address] [place] [address] [place] Beta globulin Elph [Mass/Vol] 0.77 g/dL Normal 0.61-1.17 [facility] Comment on above: Order Comment: Specimen Type: BLOOD SPEC IMEN [facility] Address: [address] [place] [address] Performed By: #### I FESC #### [facility] CLIA [id number] [address] [place] [address] [place] COMMENT (SERUM PROT ELECTRO) Monoclonal Protein analysis (immunofixation) is not indicated. Normal [facility] Comment on above: Order Comment: Specimen Type: BLOOD SPEC IMEN [facility] Address: [address] [place] [address] Performed By: #### I FESC #### [facility] CLIA [id number] [address] [place] [address] [place] Gamma globulin Elph [Mass/Vol] 1.18 g/dL Normal 0.53-1.51 [facility] Comment on above: Order Comment: Specimen Type: BLOOD SPEC IMEN [facility] Address: [address] [place] [address] Performed By: #### I FESC #### [facility] CLIA [id number] [address] [place] [address] [place] INTERPRETATION COMMENT FOR PROTEIN ELECTROPHORESIS See separate immunofixation report for characterization of monoclonal gammopathy. Normal [facility] Comment on above: Order Comment: Specimen Type: BLOOD SPEC IMEN [facility] Address: [address] [place] [address] Performed By: #### I FESC #### [facility] CLIA [id number] [address] [place] [address] [place] M-PROTEIN LOCATION Gamma Fraction 1 Normal [facility] Comment on above: Order Comment: Specimen Type: BLOOD SPEC IMEN [facility] Address: [address] [place] [address] Performed By: #### I FESC #### [facility] CLIA [id number] [address] [place], [place] [address] [place] Protein Fractions [Interp] An M protein is identified on protein electrophoresis. Abnormal No definitive M protein is identified on protein electrophoresis. [facility] Comment on above: Order Comment: Specimen Type: BLOOD SPEC IMEN Ordering Facility: [facility] Address: [address] [place] [address] Performed By: #### I FESC #### [facility] CLIA [id number] [address] [place] [address] [place] Protein.monoclon al Elph [Mass/Vol] 0.73 g/dL High <=0.00 [facility] Comment on above: Order Comment: Specimen Type: BLOOD SPEC IMEN Ordering Facility: [facility] Address: [address] [place] [address] Performed By: #### I FESC #### [facility] CLIA [id number] [address] [place], [place] [id number] [place] SPE STAFF REVIEW Reviewed by Therese Junior MD [facility] Comment on above: Order Comment: Specimen Type: BLOOD SPEC IMEN Ordering Facility: [facility] Address: [address] [place] [address] Performed By: #### I FES #### [facility] CLIA [id number] [address] [place], [place] [id number] [place] Prot SerPl-mCncon 11-16-2023 Protein [Mass/Vol] 7.3 g/dL Normal 6.3-8.0 [facility] Comment on above: Order Comment: Specimen Type: BLOOD SPEC IMEN Ordering [facility]: [facility] Address: [address] [place] [address] Performed By: #### I FES #### [facility] CLIA [id number] [address] [place] [address] [place] Lipid 1996 panelon 4 Cholesterol [Mass/Vol] 167 mg/dL Normal <200 [facility] Comment on above: Order Comment: Specimen Type: BLOOD SPEC IMENOrdering Facility: External Submitter Address: , , Result Comment: <200 mg/dL, Desirable 200-239 mg/dL, Borderline high >239 mg/dL, High Performed By: #### 2 4331-1 ####[facility] [id number] [place] [id number] [facility] LABCLIA [id number] [place] [address] Cholesterol in HDL [Mass/Vol] 37 mg/dL Low >39 [facility] Comment on above: Order Comment: Specimen Type: BLOOD SPEC IMENOrdering Facility: External Submitter Address: , , Result Comment: 40-5 9 mg/dL, Acceptable >59 mg/dL, High: Negative risk factor for coronary heart disease <40 mg/dL, Low: Positive risk factor for coronary heart disease Performed By: #### 2 4331-1 ####[facility] [id number] [id number] [place] [address] LABCLIA [id number] [place] [address] Cholesterol in LDL [Mass/Vol] 59 mg/dL Normal <100 [facility] Comment on above: Order Comment: Specimen Type: BLOOD SPEC IMENOrdering Facility: External Submitter Address: , , Result Comment: <100 mg/dL, Optimal 100-129 mg/dL, Near optimal/above optimal 130-159 mg/dL, Borderline high 160-189 mg/dL, High >189 mg/dL, Very high Secondary prevention optimal LDL Cholesterol levels are recommended to be < 70 mg/dL Performed By: #### 2 4331-1 ####[facility] [id number] [address] LABCLIA [id number] [place] [address] Cholesterol in LDL/Cholesterol in HDL [Mass ratio] 1.59 {ratio} Normal <2.54 [facility] Comment on above: Order Comment: Specimen Type: BLOOD SPEC IMENOrdering Facility: External Submitter Address: , , Result Comment: Refe rence: 1. National Cholesterol Education Program ATP III Guideline At-A-Glance Quick Desk Reference: National Heart, Lung, and Blood [place]. National Institutes of Health. 2001: NIH Publication No. 01-3305. 2. An International Atherosclerosis Society position paper: global recommendations for the management of dyslipidemia: executive summary, Atherosclerosis. 2014: 232(2):410-413. Performed By: #### 2 4331-1 ####[facility] [id number] [address] LABCLIA [id number] [place] [address] Cholesterol in VLDL [Mass/Vol] 71 mg/dL High <30 [facility] Comment on above: Order Comment: Specimen Type: BLOOD SPEC IMENOrdering Facility: External Submitter Address: , , Performed By: #### 2 4331-1 ####[facility] [id number] [address] [address] [facility] LABCLIA [id number] [place] [address] Cholesterol non HDL [Mass/Vol] 130 mg/dL High <130 [facility] Comment on above: Order Comment: Specimen Type: BLOOD SPEC IMENOrdering Facility: External Submitter Address: , , Result Comment: <130 mg/dL, Optimal 130-159 mg/dL, Near optimal/above optimal 160-189 mg/dL, Borderline high 190-219 mg/dL, High >219 mg/dL, Very high Secondary prevention optimal non HDL Cholesterol levels are recommended to be <100 mg/dL Performed By: #### 2 4331-1 ####[facility] [id number] [address] LABCLIA [id number] [place] [address] Cholesterol.tota l/Cholesterol in HDL [Mass ratio] 4.51 {ratio} Normal <5.10 [facility] Comment on above: Order Comment: Specimen Type: BLOOD SPEC IMENOrdering Facility: External Submitter Address: , , Performed By: #### 2 4331-1 ####[facility] [id number] [place] [id number] [facility] LABCLIA [id number] [place] [address] FASTING TIME 2 hrs Normal [facility] Comment on above: Order Comment: Specimen Type: BLOOD SPEC IMENOrdering Facility: External Submitter Address: , , Result Comment: nonf asting Performed By: #### 2 4331-1 ####[facility] [id number] [place] [id number] [facility] LABCLIA [id number] [place] [address] Triglyceride [Mass/Vol] 357 mg/dL High <150 [facility] Comment on above: Order Comment: Specimen Type: BLOOD SPEC IMENOrdering Facility: External Submitter Address: , , Result Comment: <150 mg/dL, Normal 150-199 mg/dL, Borderline high 200-499 mg/dL, High >499 mg/dL, Very high Performed By: #### 2 4331-1 ####[facility] [id number] [address] LABCLIA [id number] [place] [address] PSA [facility] 11-09-2023 Prostate specific Ag [Mass/Vol] ng/mL Normal <2.60 [facility] Comment on above: Order Comment: Specimen Type: BLOOD SPEC IMEN [facility] Address: [address] [place] [address] Result Comment: Jeremi mart PSA test methodology used is the Electrochemiluminescence Immunoassay by [employer]. Total PSA values by differing methodologies cannot be interchanged. Performed By: #### I FES #### [facility] CLIA [id number] [address] [place] [address] OF [facility] Ambulatory Visit Summaryon 0 10-24-2023 Ambulatory Visit Summary Ambulatory Visit Summary ADOLPH JOHNS :1945 Visit Date:10/23/2023 Ambulatory Visit Instructions Your Diagnosis Encounter for subsequent annual wellness visit in Medicare patient Prostate cancer Hypertension Immunization declined Obesity due to excess calories Your Care Team Attending Physician - Shilpa Naylor Primary Care Physician - Shilpa Naylor This Is Your Medications List Misc Prescription (Eliguard) Non-Formulary Medication (Misc Medication) abiraterone (abiraterone 250 mg oral tablet) hydrochlorothiazide-l isinopril (hydrochlorothiazide- lisinopril 12.5 mg-10 mg Tab) predniSONE (predniSONE 5 mg Tab) Procedures Performed TURBT - Transurethral resection of bladder tumor (11/10/2022), Cystoscopy (11/01/2022), Radical retropubic prostatectomy with bilateral pelvic lymphadenectomy (01/07/2016), Transrectal biopsy of prostate using ultrasound (US) guidance (11/03/2015), Colonoscopy (2015), Colonoscopy (02/07/2012). Discharge Vitals Height 185 cm Height 73 in Weight 117.2 kg Weight 257.84 lb BMI 34.24 What to do next Scheduled Follow-Up Appointments Monday 11:00 AM EDT With: CORNELIO ROSARIO, Yosef Bunch Where: [facility] [address] [address]24 11:00 AM EDT With: Where: [facility] [address] [address]- Medications What How Much When Instructions Unchanged abiraterone (abiraterone 250 mg oral tablet) 4 Tablets By Mouth Every day Unchanged hydrochlorothiazide-l isinopril (hydrochlorothiazide- lisinopril 12.5 mg-10 mg Tab) 1 Tablets By Mouth Every day Duration: 90 Days Unchanged Misc Prescription (Eliguard) 0 As Directed injection every 6 months Unchanged Non-Formulary Medication (Misc Medication) Vitamin D3 with Calcium Unchanged predniSONE (predniSONE 5 mg Tab) Medications and Immunizations Administered Not Given influenza virus vaccine, inactivated, Parent Or Guardian Refuses Allergies oxytetracycline (Fever, Swelling at injection site) penicillin (Swelling at injection site) Problems Ongoing - Any problem that you are currently receiving treatment for. Bladder tumor BMI 34.0-34.9,adult Class 1 obesity due to excess calories with body mass index (BMI) of 33.0 to 33.9 in adult Epididymitis History of prostate cancer Hypertension Microscopic hematuria Nocturia Prostate cancer Proteinuria Right knee pain Rising PSA following treatment for malignant neoplasm of prostate Urinary frequency Urinary urgency Wellness examination Patient Survey You may receive a survey via text or e-mail asking about your office visit. Please share your experience with us by completing your survey. We appreciate your feedback and thank you for choosing us for your care. Education Materials Prostate Cancer The prostate is a small gland that produces fluid that makes up semen (seminal fluid). It is located below the bladder in men, in front of the rectum. Prostate cancer is the abnormal growth of cells in the prostate gland. What are the causes? The exact cause of this condition is not known. What increases the risk? You are more likely to develop this condition if: ? You are 65 years of age or older. ? You have a family history of prostate cancer. ? You have a family history of breast and ovarian cancer. ? You have genes that are passed from parent to child (inherited), such as BRCA1 and BRCA2. ? You have Ascencio syndrome. men and men of descent are diagnosed with prostate cancer at higher rates than other men. The reasons for this are not well understood and are likely due to a combination of genetic and environmental factors. What are the signs or symptoms? Symptoms of this condition include: ? Problems with urination. This may include: ? A weak or interrupted flow of urine. ? Trouble starting or stopping urination. ? Trouble emptying the bladder all the way. ? The need to urinate more often, especially at night. ? Blood in urine or semen. ? Persistent pain or discomfort in the lower back, lower abdomen, or hips. ? Trouble getting an erection. ? Weakness or numbness in the legs or feet. How is this diagnosed? This condition can be diagnosed with: ? A digital rectal exam. For this exam, a health care provider inserts a gloved finger into the rectum to feel the prostate gland. ? A blood test called a prostate-specific antigen (PSA) test. ? A procedure in which a sample of tissue is taken from the prostate and checked under a microscope (prostate biopsy). ? An imaging test called transrectal ultrasonography. Once the condition is diagnosed, tests will be done to determine how far the cancer has spread. This is call (more content not included)... Normal [facility] Family Medicine Office/Clini c Noteon 10-24-2023 Family Medicine Office/Clinic Note Family Medicine Office/Clinic Note Chief Complaint Subsequent Medicare Wellness Review of Systems PHQ Score Initial Depression Screen Score: 0 SCORE Physical Exam Vitals & Measurements HT: 185 cm HT: 73 in WT: 117.2 kg WT: 257.84 lb BMI: 34.24 Assessment/Plan 1. Encounter for subsequent annual wellness visit in Medicare patient (Z00.00: Encounter for general adult medical examination without abnormal findings) The patient was given a customized and personalized print out of all the current AHRQ USPSTF?s recommendations for preventative services and all current CDC recommended immunizations, relevant risk recommendations and the following patient brochures were given. Reviewed Medicare Prevention Services checklist. CDC-Falls Prevention and home safety screening reviewed. Patient denies any falls in last 12 months, voices no worry about falling. Exhibits no problems with sitting, standing or ambulation. Patient aware with keeping walk way area free of clutter to prevent tripping and/or falling. [place] Advance Directives reviewed. Documents remain at home/criminal attorney's office, encouraged to bring in for scanning into chart. Patient is not an organ donor. Patient denies any problems with ADL?s and Instrumental ADL?s. Cognitive screening completed with memory and clock face drawing. No deficits noted. Patient recited 3/3 memory words. Immunization record reviewed, discussed Shingrix vaccine with educational handout and availability. 2 COVID vaccines have been administered. Allergies and medications reviewed and up to date. No concerns with taking medication as prescribed. Reviewed OTC medications, medication list up to date. Blood tests were reviewed: Discussed what tests need to be updated. Labs were ordered by pcp at last visit. Patient has order and will have them drawn at [facility] per his request. No concerns with bowel/ bladder. Colonoscopy last completed 2015. Reviewed pain symptoms : Patient denies pain. Reviewed all outside providers that patient follows. Last visit summary notes available in chart and/or have been requested. Patient declines any signs or symptoms of depression at this time. 8 minutes spent with screening and documentation. PHQ2 screening score 0. Patient denies alcohol use. Audit score 0. Follow up scheduled with PCP, patient will call to schedule yearly. AWV has been scheduled, 10/24/2024 2. Prostate cancer (C61: Malignant neoplasm of prostate) Patient follows Dr. Collins as directed every 6 months and prn. 3. Hypertension (I10: Essential (primary) hypertension) Patient is taking hctz-lisinopril daily as directed. Does not monitor BP pressure at home. HTN stoplight reviewed with BP goal to be <140/90. Reviewed different factors that can alter blood pressure readings. Education handout provided with s/s to monitor for and report to provider. Patient is encouraged to increase portions of fruit, vegetables, fiber and increase exercise as much as tolerable. Reviewed importance with monitoring foods high in salt content and encouraged to limit intake, if unsure encouraged to discuss with their PCP. Encouraged to eat more chicken, fish and lean white meats and limits red meats in diet. Discussed importance with keeping BP under good control to reduce CVA risk factors. Will continue to f/u with PCP during office visits and as needed. 4. Immunization declined (Z28.21: Immunization not carried out because of patient refusal) Patient declines yearly recommend influenza vaccine. Discussed increased risk factors vs benefits, reviewed importance to follow up and discuss with PCP 5. Obesity due to excess calories (E66.09: Other obesity due to excess calories) The standard range for ages 18 and older is >=18.5 and < 25 kg/m2. Your BMI 34.24 today was above this range, this falls in the obesity category and there are medical benefits to weight loss. BMI monitoring is helpful with identifying a weight problem that may be related to a medical condition, or may increase the risk for medical problems. Your BMI and weight management will be followed at subsequent visits with your provider and monitored for progress. GOAL: promoting healthier lifestyle with diet changes in order to reach a healthy weight. Follow-up No qualifying data available Patient Education Prostate Cancer BMI for Adults DASH Eating Plan Problem List/Past Medical History Ongoing Bladder tumor BMI 34.0-34.9,adult Class 1 obesity due to excess calories with body mass index (BMI) of 33.0 to 33.9 in adult Epididymitis History of prostate cancer Hypertension Microscopic hematuria Nocturia Prostate cancer Proteinuria Right knee pain Rising PSA following treatment for malignant neoplasm of prostate Urinary frequency Urinary urgency Wellness examination Historical No qualifying data Procedure/Surgical History TURBT - Transurethral resection of bladder tumor (11/10/2022), Cystoscopy (11/01/2022), Radical retropu (more content not included)... Normal [facility] Comment on above: Result Comment: Electronically Signed By : Shilpa Naylor\.br\Date and Time Signed: 10/24/23 08:21 EDT\.br\Electronically Co-Signed By: Caitlin Kaba\.br\Date and Time Co-Signed: 10/23/23 14:26 EDT Ambulatory Visit Summaryon 0 09-27-2023 Ambulatory Visit Summary Ambulatory Visit Summary ADOLPH JOHNS :1945 Visit Date:09/27/2023 Ambulatory Visit Instructions Your Diagnosis Hypertension History of prostate cancer Bladder tumor BMI 33.0-33.9,adult, Body mass index [BMI] 33.0-33.9, adult Non-smoker Class 1 obesity due to excess calories with body mass index (BMI) of 33.0 to 33.9 in adult Your Care Team Attending Physician - Shilpa Naylor Primary Care Physician - Shilpa Naylor This Is Your Medications List abiraterone (abiraterone 250 mg oral tablet) calcium citrate (calcium (as calcium citrate) 200 mg oral tablet) ergocalciferol (Vitamin D) hydrochlorothiazide-l isinopril (hydrochlorothiazide- lisinopril 12.5 mg-10 mg Tab) predniSONE (predniSONE 5 mg Tab) Procedures Performed TURBT - Transurethral resection of bladder tumor (11/10/2022), Cystoscopy (11/01/2022), Radical retropubic prostatectomy with bilateral pelvic lymphadenectomy (01/07/2016), Transrectal biopsy of prostate using ultrasound (US) guidance (11/03/2015), Colonoscopy (2015). Discharge Vitals Temperature (Oral) 36.9 ?C Heart Rate (Peripheral) 89 Respiratory Rate 16 Blood Pressure 136/78 Height 185 cm Height 73 in Weight 116 kg Weight 255.2 lb BMI 33.89 What to do next Scheduled Follow-Up Appointments Monday 1:00 PM EDT With: Where: [facility] [address] [address]- Monday 11:00 AM EDT With: CORNELIO ROSARIO, Yosef Bunch Where: [facility] [address] [place] [address]- Medications What How Much When Instructions Unchanged abiraterone (abiraterone 250 mg oral tablet) 4 Tablets By Mouth Every day Unchanged calcium citrate (calcium (as calcium citrate) 200 mg oral tablet) By Mouth 2 times a day Unchanged ergocalciferol (Vitamin D) By Mouth Every week Unchanged hydrochlorothiazide-l isinopril (hydrochlorothiazide- lisinopril 12.5 mg-10 mg Tab) 1 Tablets By Mouth Every day Unchanged predniSONE (predniSONE 5 mg Tab) Allergies oxytetracycline (Fever, Swelling at injection site) penicillin (Swelling at injection site) Problems Ongoing - Any problem that you are currently receiving treatment for. Bladder tumor BMI 33.0-33.9,adult Class 1 obesity due to excess calories with body mass index (BMI) of 33.0 to 33.9 in adult Epididymitis History of prostate cancer Hypertension Microscopic hematuria Nocturia Prostate cancer Proteinuria Rising PSA following treatment for malignant neoplasm of prostate Urinary frequency Urinary urgency Wellness examination Patient Survey You may receive a survey via text or e-mail asking about your office visit. Please share your experience with us by completing your survey. We appreciate your feedback and thank you for choosing us for your care. Normal [facility] Family Medicine Office/Clini c Noteon 09-27-2023 Family Medicine Office/Clinic Note Family Medicine Office/Clinic Note Chief Complaint Med Refill HPI Staff 1yr follow up for medication refills. (Lisinopril) Health Maintenance: Colonoscopy: 2015 Dexa: 2022 PSA: history of prostate cancer had prostatectomy. Last PSA 05/08/23 was <.02 Last Labs: May [facility] History of Present Illness pt presents today for med refils Review of Systems PHQ Score Initial Depression Screen Score: 0 SCORE Physical Exam Vitals & Measurements T: 36.9 ?C(Oral) HR: 89(Peripheral) RR: 16 BP: 136/78 SpO2: 95% HT: 73 in HT: 185 cm WT: 116 kg WT: 255.2 lb BMI: 33.89 General: alert, no acute distress ENMT: oral mucosa moist, no pharyngeal erythema or exudate Cardiovascular: regular rate and rhythm, normal peripheral perfusion Respiratory: Lungs CTA, respirations non labored Extremities: no deformity, no trauma Neurological: oriented x 4, LOC appropriate for age, CN II-XII intact, motor strength equal & normal bilaterally, speech normal Assessment/Plan 1. Hypertension (I10: Essential (primary) hypertension) BP at goal today. will send refills. order for lipid panel provided. 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 last labs in May were reviewed and scanned into chart. RTC 1 year Ordered: Lipid Panel 2. History of prostate cancer (Z85.46: Personal history of malignant neoplasm of prostate) followed by oncology. last PSA was undetectable Ordered: Lipid Panel 3. 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 Right knee pain (M25.561: Pain in right knee) pt has been having right knee pain for about 3 weeks. has been doing stretches at home as well as ice and using a tens unit. pt states it is starting to improve. declines x ray order at this time. will call office if it gets worse. 5. Non-smoker (Z78.9: Other specified health status) continue not smoking Ordered: Lipid Panel 6. Body mass index [BMI] 33.0-33.9, adult (Z68.33: Body mass index [BMI] 33.0-33.9, adult) BMI education given Ordered: Lipid Panel 7. Class 1 obesity due to excess calories with body mass index (BMI) of 33.0 to 33.9 in adult (E66.09: Other obesity due to excess calories) see above Ordered: Lipid Panel Orders: hydrochlorothiazide-l isinopril, 1 tab(s), Oral, Daily for 90 day(s), 90 tab(s), Refill(s) 3, [facility], 185, cm, 09/27/23 11:20:00 EDT, Height/Length Dosing, 116, kg, 09/27/23 11:20:00 EDT, Weight Dosing hydrochlorothiazide-l isinopril, 1 tab(s), Oral, Daily, 30 tab(s), Refill(s) 0, [facility], 190, cm, 05/22/23 11:33:00 EDT, Height/Length Dosing, 110, kg, 05/22/23 11:33:00 EDT, Weight Dosing Follow-up No qualifying data available Problem List/Past Medical History Ongoing Bladder tumor BMI 33.0-33.9,adult Class 1 obesity due to excess calories with body mass index (BMI) of 33.0 to 33.9 in adult Epididymitis History of prostate cancer Hypertension Microscopic hematuria Nocturia Prostate cancer Proteinuria Right knee pain Rising PSA following treatment for malignant neoplasm of prostate Urinary frequency Urinary urgency Wellness examination Historical No qualifying data Procedure/Surgical History TURBT - Transurethral resection of bladder tumor (11/10/2022), Cystoscopy (11/01/2022), Radical retropubic prostatectomy with bilateral pelvic lymphadenectomy (01/07/2016), Transrectal biopsy of prostate using ultrasound (US) guidance (11/03/2015), Colonoscopy (2015). Medications abiraterone 250 mg oral tablet, 1000 mg= 4 tab(s), Oral, Daily calcium (as calcium citrate) 200 mg oral tablet, Oral, BID hydrochlorothiazide-l isinopril 12.5 mg-10 mg Tab, 1 tab(s), Oral, Daily, 3 refills predniSONE 5 mg Tab Vitamin D, Oral, qWeek Allergies oxytetracycline (Fever, Swelling at injection site) penicillin (Swelling at injection site) Social History Alcohol - Denies Alcohol Use, 11/12/2018 Household alcohol concerns: No., 10/11/2022 Tobacco - Denies Tobacco Use, 11/12/2018 Never (less than 100 in lifetime) Tobacco Use:. Never Smokeless Tobacco Use:. Household tobacco concerns: No. Yes, 09/27/2023 Family History Cancer - unknown origin: Father. Hypertension: Mother. [facility] Comment on above: Result Comment: Electronically Signed By : Shilpa Naylor\.arun\Date and Time Signed: 09/27/23 12:26 EDT Consultation Noteon 05-29-19 Consultation Note [id number] .00TIFF [facility] Consultation Noteon 05-26-19 Consultation Note [id number] .00TIFF [facility] Ambulatory Visit Summaryon 0 05-22-2023 Ambulatory Visit Summary ADOLPH JOHNS :1945 Visit Date:05/22/2023 Ambulatory Visit Instructions Your Diagnosis Prostate cancer Bladder tumor Your Care Team Attending Physician - CORNELIO ROSARIO, Yosef Bunch Primary Care Physician - Shahriar Stpehenson MD This Is Your Medications List Contact prescribing physician if questions or concerns abiraterone (abiraterone 250 mg oral tablet) calcium citrate (calcium (as calcium citrate) 200 mg oral tablet) ergocalciferol (Vitamin D) hydrochlorothiazide-l isinopril (hydrochlorothiazide- lisinopril 12.5 mg-10 mg Tab) predniSONE (predniSONE 5 mg Tab) Procedures Performed TURBT - Transurethral resection of bladder tumor (11/10/2022), Cystoscopy (11/01/2022), Radical retropubic prostatectomy with bilateral pelvic lymphadenectomy (01/07/2016), Transrectal biopsy of prostate using ultrasound (US) guidance (11/03/2015), Colonoscopy (02/07/2012). Discharge Vitals Temperature (Temporal Artery) 36.9 ?C Heart Rate (Peripheral) 81 Respiratory Rate 16 Blood Pressure 118/85 Height 190 cm Height 75 in Weight 110 kg Weight 242 lb BMI 30.47 What to do next Scheduled Follow-Up Appointments Monday 1:00 PM EDT With: Where: [facility] [address] [place] [address] [place] [address]- \.br\ You Need to Schedule the Following Appointments\.br\ Follow Up with CORNELIO ROSARIO, Yosef Bunch, URL When: \.br\ Comments:\.br\ 6 mos w/ PSA (gets level from [facility])\.br\ Where:\.br\ [facility] [address]\.br\ [place] [address]-\.br\ [phone]\.br\ Medications\.br\ What How Much When Instructions\.br\ Unchanged abiraterone (abiraterone 250 mg oral tablet) 4 Tablets By Mouth Every day Contact prescribing physician if questions or concerns \.br\ Unchanged calcium citrate (calcium (as calcium citrate) 200 mg oral tablet) By Mouth 2 times a day Contact prescribing physician if questions or concerns \.br\ Unchanged ergocalciferol (Vitamin D) By Mouth Every week Contact prescribing physician if questions or concerns \.br\ Unchanged hydrochlorothiazide- lisinopril (hydrochlorothiazide -lisinopril 12.5 mg-10 mg Tab) 1 Tablets By Mouth Every day Contact prescribing physician if questions or concerns \.br\ Unchanged predniSONE (predniSONE 5 mg Tab) Contact prescribing physician if questions or concerns \.br\ Medications and Immunizations Administered\.br\ Given\.br\ Eligard 45 mg/6 months subcutaneous injection, extended release, 45 mg, SubCutaneous. For: Prostate cancer\.br\ Allergies\.br\ oxytetracycline (Fever, Swelling at injection site)\.br\ penicillin (Swelling at injection site)\.br\ Problems\.br\ Ongoing - Any problem that you are currently receiving treatment for.\.br\ Bladder tumor\.br\ BMI 33.0-33.9,adult\.br\ Epididymitis\.br\ History of prostate cancer\.br\ Microscopic hematuria\.br\ Nocturia\.br\ Prostate cancer\.br\ Proteinuria\.br\ Rising PSA following treatment for malignant neoplasm of prostate\.br\ Urinary frequency\.br\ Urinary urgency\.br\ Wellness examination\.br\ Patient Survey\.br\ You may receive a survey via text or e-mail asking about your office visit. Please share your experience with us by completing your survey. We appreciate your feedback and thank you for choosing us for your care.\.br\ Education Materials\.br\ Hormone Suppression Therapy for Prostate Cancer\.br\ \.br\ Hormone suppression therapy is a treatment for prostate cancer that can help slow the growth of cancer cells in the prostate gland. It is also called androgen deprivation therapy (ADT) or androgen suppression therapy. Hormone suppression therapy targets male sex hormones (androgens) in the body that help cancer cells grow.\.br\ Hormone suppression therapy alone will not cure prostate cancer, but it can slow the growth of cancer cells and may shrink tumors over time. Your health care provider can help you find the best treatment that fits your lifestyle. Hormone suppression therapy may be used in the following cases:\.br\ ? \.br\ When prostate cancer has spread too far to other places in the body and cannot be cured by surgery or radiation.\.br\ ? \.br\ When a person has health problems that prevent the use of surgery or radiation.\.br\ ? \.br\ Before radiation to help shrink the size of the cancer and make the radiation treatment more effective.\.br\ ? \.br\ If the prostate cancer remains or comes back following treatment with surgery or radiation.\.br\ What are the types of hormone suppression therapy?\.br\ Orchiectomy\.br\ Orchiectomy, also called surgical castration, is a surgery to remove one or both testicles. The testicles make the two main androgens?testostero ne and dihydrotestosterone (DHT). This surgery reduces the levels of testosterone in the blood, leading to decreased androgen production.\.br\ Medicine therapy\.br\ Medicine therapy, also called medical or chemical castration, involves taking medicines to keep your body from making or using androgens. Medicines can do this in one of three ways:\.br\ 1. \.br\ Reducing androgen production by the testicles.\.br\ ? \.br\ Luteinizing hormone-releasing hormone (LHRH) agonists. These medicines are injected or implanted under your skin to lower the amount of androgens that your testicles make. Depending on the medicine, they can be given monthly or up to every 3 to 6 months. If you take these medicines, you may also be prescribed other medicines to help with side effects.\.br\ ? \.br\ LHRH antagonists. These medicines also work to lower the amount of androgens made in the testicles, but they work faster than LHRH agonist medicines and have less severe side effects. They are given as a monthly injection under the skin, and they are used when prostate cancer is in an advanced stage.\.br\ ? \.br\ Estrogens. These medicines are female hormones that help to reduce androgen production by the testicles. Estrogens are not used as commonly as other types of hormone suppression therapy due to their side effects. However, they may be used if other treatments do not work.\.br\ 2. \.br\ Blocking androgen attachment throughout the body.\.br\ ? \.br\ Anti-androgen medicines, also called androgen receptor antagonists, block areas on the body where androgens attach. These are pills that are usually used in combination with other types of hormone suppression therapy, like orchiectomy and other medicines.\.br\ 3. \.br\ Blocking androgen production throughout the body.\.br\ ? \.br\ Androgen synthesis inhibitor medicines. These medicines help to stop other areas of the body from making androgens. They are taken as pills. They may be used if the prostate cancer is advanced and has not gotten better with surgery or other medicines. A steroid medicine may be given with this type of medicine to help with side effects.\.br\ What are the risks?\.br\ Hormone suppression therapy may cause side effects, including:\.br\ ? \.br\ Hot flashes.\.br\ ? \.br\ Diarrhea and nausea.\.br\ ? \.br\ Itching.\.br\ ? \.br\ Sexual side effects, such as:\.br\ ? \.br\ Decrease or lack of sexual desire.\.br\ ? \.br\ Decrease in size of the penis or testicles.\.br\ ? \.br\ Inability to get an erection (erectile dysfunction, or impotence).\.br\ ? \.br\ Breast tenderness or increase in breast size.\.br\ ? \.br\ Fatigue.\.br\ ? \.br\ Weight gain.\.br\ ? \.br\ Anemia.\.br\ ? \.br\ Thinning of the bones (osteoporosis) and loss of muscle mass.\.br\ ? \.br\ Depression, mood swings, and trouble with thinking or focusing.\.br\ Hormone suppression therapy may also increase your risk of high blood pressure, increased cholesterol levels, stroke, heart attack, or diabetes.\.br\ What are the benefits?\.br\ One of the main benefits of hormone suppression therapy is having additional treatment options. You may have only one type of treatment, or two or more types at the same time. Treatments may be combined to:\.br\ ? \.br\ Help with side effects.\.br\ ? \.br\ Treat advanced cancer.\.br\ Where to find more information\.br\ ? \.br\ [place] [employer]: www.cancer.org\.br\ ? \.br\ National Cancer [place]: www.cancer.gov\.br\ Contact a health care provider if:\.br\ ? \.br\ You have pain or side effects that do not get better with treatment.\.br\ ? \.br\ You have trouble urinating.\.br\ ? \.br\ You have new side effects that do not go away.\.br\ Get help right away if:\.br\ ? \.br\ You have severe chest pain.\.br\ ? \.br\ You have trouble breathing.\.br\ ? \.br\ You have an irregular heartbeat.\.br\ ? \.br\ You have numbness or paralysis in the lower half of your body.\.br\ ? \.br\ [facility] Patient Educationon 05-22-19 24 Patient Education Oncology Hormone Suppression Therapy for Prostate Cancer Hormone suppression therapy is a treatment for prostate cancer that can help slow the growth of cancer cells in the prostate gland. It is also called androgen deprivation therapy (ADT) or androgen suppression therapy. Hormone suppression therapy targets male sex hormones (androgens) in the body that help cancer cells grow. Hormone suppression therapy alone will not cure prostate cancer, but it can slow the growth of cancer cells and may shrink tumors over time. Your health care provider can help you find the best treatment that fits your lifestyle. Hormone suppression therapy may be used in the following cases: ? When prostate cancer has spread too far to other places in the body and cannot be cured by surgery or radiation. ? When a person has health problems that prevent the use of surgery or radiation. ? Before radiation to help shrink the size of the cancer and make the radiation treatment more effective. ? If the prostate cancer remains or comes back following treatment with surgery or radiation. What are the types of hormone suppression therapy? Orchiectomy Orchiectomy, also called surgical castration, is a surgery to remove one or both testicles. The testicles make the two main androgens?testosteron e and dihydrotestosterone (DHT). This surgery reduces the levels of testosterone in the blood, leading to decreased androgen production. Medicine therapy Medicine therapy, also called medical or chemical castration, involves taking medicines to keep your body from making or using androgens. Medicines can do this in one of three ways: 1. Reducing androgen production by the testicles. ? Luteinizing hormone-releasing hormone (LHRH) agonists. These medicines are injected or implanted under your skin to lower the amount of androgens that your testicles make. Depending on the medicine, they can be given monthly or up to every 3 to 6 months. If you take these medicines, you may also be prescribed other medicines to help with side effects. ? LHRH antagonists. These medicines also work to lower the amount of androgens made in the testicles, but they work faster than LHRH agonist medicines and have less severe side effects. They are given as a monthly injection under the skin, and they are used when prostate cancer is in an advanced stage. ? Estrogens. These medicines are female hormones that help to reduce androgen production by the testicles. Estrogens are not used as commonly as other types of hormone suppression therapy due to their side effects. However, they may be used if other treatments do not work. 2. Blocking androgen attachment throughout the body. ? Anti-androgen medicines, also called androgen receptor antagonists, block areas on the body where androgens attach. These are pills that are usually used in combination with other types of hormone suppression therapy, like orchiectomy and other medicines. 3. Blocking androgen production throughout the body. ? Androgen synthesis inhibitor medicines. These medicines help to stop other areas of the body from making androgens. They are taken as pills. They may be used if the prostate cancer is advanced and has not gotten better with surgery or other medicines. A steroid medicine may be given with this type of medicine to help with side effects. What are the risks? Hormone suppression therapy may cause side effects, including: ? Hot flashes. ? Diarrhea and nausea. ? Itching. ? Sexual side effects, such as: ? Decrease or lack of sexual desire. ? Decrease in size of the penis or testicles. ? Inability to get an erection (erectile dysfunction, or impotence). ? Breast tenderness or increase in breast size. ? Fatigue. ? Weight gain. ? Anemia. ? Thinning of the bones (osteoporosis) and loss of muscle mass. ? Depression, mood swings, and trouble with thinking or focusing. Hormone suppression therapy may also increase your risk of high blood pressure, increased cholesterol levels, stroke, heart attack, or diabetes. What are the benefits? One of the main benefits of hormone suppression therapy is having additional treatment options. You may have only one type of treatment, or two or more types at the same time. Treatments may be combined to: ? Help with side effects. ? Treat advanced cancer. Where to find more information ? [place] [employer]: www.cancer.org ? National Cancer [place]: www.cancer.gov Contact a health care provider if: ? You have pain or side effects that do not get better with treatment. ? You have trouble urinating. ? You have new side effects that do not go away. Get help right away if: ? You have severe chest pain. ? You have trouble breathing. ? You have an irregular heartbeat. ? You have numbness or paralysis in the lower half of your body. ? You are confused. ? You have trouble talking or understanding speech. These symptoms may be an emergenc (more content not included)... [facility] Urology Office/Clinic Noteon 05-22-2023 Urology Office/Clinic Note Chief Complaint prostate cancer, bladder tumor HPI Staff 6 month f/u with PSA and Eligard injection. Dx: prostate cancer (radical prostatectomy 01/07/16) and bladder tumor PSA done 05/08/23 is <0.02 Casodex was discontinued and Abiraterone 1000mg qd was started. Dysuria: no Incomplete bladder emptying: no Hematuria: no Frequency: no Urgency: no Nocturia: does not usually get up Stream: good steady no straining or intermittency Leaking: no Post void dripping: no Wearing pads/ Depends: no Urge incontinence: no Stress incontinence: no Incontinence without Sensory Awareness: no Abdominal pain: no Flank pain: no Sexual complaints: no History of Present Illness Tests reviewed: reviewed UA, PSA I have reviewed the previous health record information and history for this patient from Dr. Grimes. I have reviewed and verified the staff HPI to be accurate for this encounter. Review of Systems PHQ Score Initial Depression Screen Score: 0 SCORE ROS - Provider Constitutional: denies weight loss, denies hot flashes. Eyes: denies eye problems. Gastrointestinal: denies nausea, denies vomiting. Cardiovascular: denies chest pain or angina. Integumentary: no dryness Musculoskeletal: denies musculoskeletal symptoms. ENMT: denies otolaryngeal symptoms. Respiratory: no shortness of breath. Heme/Lymph: denies easy bleeding tendency, denies easy bruising tendency. Psychiatric: no confusion, no anxiety. Genitourinary: See HPI. Physical Exam Vitals & Measurements T: 36.9 ?C(Temporal Artery) HR: 81(Peripheral) RR: 16 BP: 118/85 HT: 75 in HT: 190 cm WT: 110 kg WT: 242 lb BMI: 30.47 General Appearance: alert, no distress, well nourished, well developed male. Genitourinary: normal scrotum, normal testes, normal urethra, normal epididymis, normal vas deferens/spermatic cord. Flank Pain: none. Bladder: nonpalpable. Assessment/Plan 1. Prostate cancer (C61: Malignant neoplasm of prostate) S/p Radical Prostatectomy 01/07/16 - perineural invasion but negative margins. PSA: 11/11/19 - 0.06 10/05/20 - 0.05 09/14/21 - <0.13 09/26/22 - 2.0 10/03/22 - 1.3 05/08/23 - <0.02 PSMA PET scan 10/28/22 at [facility] - neg for mets; approx 1.5cm R posterior lateral periprostatic/seminal vesicle region soft tissue tracer avid lesion suspicious for recurrence. S/p Cysto/TURBT 11/10/22 - metastatic poorly differentiated adenocarcinoma consistent w/ prostatic primary. MRI pelvis 11/28/22 (ordered by Dr Kumari) Recurrent mass arising/expanding from the right vas deferens remanent with adjacent conglomerate RIGHT pelvic lymphadenopathy, as detailed in the report. First Eligard inj given 12/02/22. Casodex (started 10/2022) was switched to abiraterone/prednison e 12/08/22. Last seen by Dr. Kumari 01/05/23. Plan was to proceed with radiation and continue Casodex q6mos. EBRT 12/14/22 - 02/02/23. Current PSA level is undetectable. Currently taking abiraterone/prednison e. Eligard 45 mgIM injection given today with no complications. Right glute. Pt. denies side effects at this time. -Cont Vit D and ca -Eligard PSA in 6 months 2. 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 [1] UA today negative for blood and infection. Denies any recent gross hematuria episodes. Follow-up With When Contact Information CORNELIO ROSARIO, Yosef Bunch, URL [facility] [address], [place] [address]- [phone] Additional Instructions: 6 mos w/ PSA (gets level from [facility]) & Eligard Patient Education Hormone Suppression Therapy for Prostate Cancer I, Odette Cottrell, personally scribed for Dr. Grimes on 05/22/2023 12:01:10. . Documentation recorded by the scribe, Odette Cottrell, accurately reflects the services(s) I performed and decisions made by me. Authenticated by Dr. Grimes on 05/22/2023 12:03:45. Problem List/Past Medical History Ongoing Bladder tumor BMI 33.0-33.9,adult Epididymitis History of prostate cancer Microscopic hematuria Nocturia Prostate cancer Proteinuria Rising PSA following treatment for malignant neoplasm of prostate Urinary frequency Urinary urgency Wellness examination Historical No qualifying data Procedure/Surgical History TURBT - Transurethral resection of bladder tumor (11/10/2022), Cystoscopy (11/01/2022), Radical retropubic prostatectomy with bilateral pelvic lymphadenectomy (01/07/2016), Transrectal biopsy of prostate using ultrasound (US) guidance (11/03/2015), Colonoscopy (02/07/2012). Medications abiraterone 250 mg oral tablet, 1000 mg= 4 tab(s), Oral, Daily calcium (as calcium citrate) 200 mg oral tablet, Oral, BID hydrochlorothiazide-l isinopril 12.5 mg-10 mg Tab, 1 tab(s), Oral, Daily, 3 refills predniSONE 5 mg Tab (more content not included)... Normal [facility] Comment on above: Result Comment: Electronically Signed By : Yosef GRIMES MD\.br\Date and Time Signed: 05/22/23 12:03 EDT\.br\Electronically Co-Signed By: Odette Cottrell\.br\Date and Time Co-Signed: 05/22/23 12:01 EDT CBC W Auto Differential pane l (Bld)on 05-18-2023 Basophils (Bld) [#/Vol] 0.00 10*3/uL Normal <0.11 [facility] Comment on above: Order Comment: Specimen Type: BLOOD SPEC IMEN Ordering Facility: [facility] Address: [address] [place] [address] Performed By: #### I [facility] #### [facility] CLIA [id number] [address] [place] [address] [place] [id number], [place] [address] [place] Basophils/100 WBC (Bld) 0.0 % Normal [facility] Comment on above: Order Comment: Specimen Type: BLOOD SPEC IMEN Ordering Facility: [facility] Address: [address] [place] [address] Performed By: #### I [facility] #### [facility] CLIA [id number] [address] [place] [address] [place] Differential cell count method Nom (Bld) Manual Normal [facility] Comment on above: Order Comment: Specimen Type: BLOOD SPEC IMEN Ordering Facility: [facility] Address: [address] [place] [address] Performed By: #### I [facility] #### [facility] CLIA [id number] [address] [place] [address] [place] Eosinophils (Bld) [#/Vol] 0.18 10*3/uL Normal <0.46 [facility] Comment on above: Order Comment: Specimen Type: BLOOD SPEC IMEN Ordering Facility: [facility] Address: [address] [place] [address] Performed By: #### I [facility] #### [facility] CLIA [id number] [address] [place] [address] [place] Eosinophils/100 WBC (Bld) 2.6 % Normal [facility] Comment on above: Order Comment: Specimen Type: BLOOD SPEC IMEN Ordering Facility: [facility] Address: [address] [place] [address] Performed By: #### I [facility] #### [facility] CLIA [id number] [address] [place] [address] [place] Erythrocyte distribution width (RBC) [Ratio] 14.1 % Normal 11.5-15.0 [facility] Comment on above: Order Comment: Specimen Type: BLOOD SPEC IMEN Ordering Facility: [facility] Address: [address] [place] [address] Performed By: #### I [facility] #### [facility] CLIA [id number] [address] [place] [address] [place] Hematocrit (Bld) [Volume fraction] 40.6 % Normal 39.0-51.0 [facility] Comment on above: Order Comment: Specimen Type: BLOOD SPEC IMEN Ordering Facility: [facility] Address: [address] [place] [address] Performed By: #### I [facility] #### [facility] CLIA [id number] [address] [place] [address] [place] Hemoglobin (Bld) [Mass/Vol] 13.6 g/dL Normal 13.0-17.0 [facility] Comment on above: Order Comment: Specimen Type: BLOOD SPEC IMEN Ordering Facility: [facility] Address: [address] [place] [address] Performed By: #### I [facility] #### [facility] CLIA [id number] [address] [place] [address] [place] Lymphocytes (Bld) [#/Vol] 0.79 10*3/uL Low 1.00-4.00 [facility] Comment on above: Order Comment: Specimen Type: BLOOD SPEC IMEN Ordering Facility: [facility] Address: [address] [place] [address] Performed By: #### I [facility] #### [facility] CLIA [id number] [address] [place] [address] [place] Lymphocytes/100 WBC (Bld) 11.4 % Normal [facility] Comment on above: Order Comment: Specimen Type: BLOOD SPEC IMEN Ordering Facility: [facility] Address: [address] [place] [address] Performed By: #### I [facility] #### [facility] CLIA [id number] [address] [place] [address] [place] MCH (RBC) [Entitic mass] 30.6 pg Normal 26.0-34.0 [facility] Comment on above: Order Comment: Specimen Type: BLOOD SPEC IMEN Ordering Facility: [facility] Address: [address] [place] [address] Performed By: #### I [facility] #### [facility] CLIA [id number] [address] [place] [address] [place] MCHC (RBC) [Mass/Vol] 33.5 g/dL Normal 30.5-36.0 [facility] Comment on above: Order Comment: Specimen Type: BLOOD SPEC IMEN Ordering Facility: [facility] Address: [address] [place] [address] Performed By: #### I [facility] #### [facility] CLIA [id number] [address] [place] [address] [place] MCV (RBC) [Entitic vol] 91.2 fL Normal 80.0-100.0 [facility] Comment on above: Order Comment: Specimen Type: BLOOD SPEC IMEN Ordering Facility: [facility] Address: [address] [place] [address] Performed By: #### I [facility] #### [facility] CLIA [id number] [address] [place] [address] [place] Metamyelocytes/1 00 WBC (Bld) 0.9 % Normal [facility] Comment on above: Order Comment: Specimen Type: BLOOD SPEC IMEN Ordering Facility: [facility] Address: [address] [place] [address] Performed By: #### I [facility] #### [facility] CLIA [id number] [address] [place] [address] [place] Monocytes (Bld) [#/Vol] 0.18 10*3/uL Normal <0.87 [facility] Comment on above: Order Comment: Specimen Type: BLOOD SPEC IMEN Ordering Facility: [facility] Address: [address] [place] [address] Performed By: #### I [facility] #### [facility] CLIA [id number] [address] [place] [address] [place] Monocytes/100 WBC (Bld) 2.6 % Normal [facility] Comment on above: Order Comment: Specimen Type: BLOOD SPEC IMEN Ordering Facility: [facility] Address: [address] [place] [address] Performed By: #### I [facility] #### [facility] CLIA [id number] [address] [place] [address] [place] MYELO% 0.9 % Normal [facility] Comment on above: Order Comment: Specimen Type: BLOOD SPEC IMEN Ordering Facility: [facility] Address: [address] [place] [address] Performed By: #### I FES #### [facility] CLIA [id number] [address] [place] [address] [place] Neutrophils (Bld) [#/Vol] 5.64 10*3/uL Normal 1.45-7.50 [facility] Comment on above: Order Comment: Specimen Type: BLOOD SPEC IMEN Ordering Facility: [facility] Address: [address] [place] [address] Performed By: #### I FES #### [facility] CLIA [id number] [address] [place] [address] [place] Neutrophils/100 WBC (Bld) 81.6 % Normal [facility] Comment on above: Order Comment: Specimen Type: BLOOD SPEC IMEN [facility]ing [facility] Address: [address] [place] [address] Performed By: #### I FESC #### [facility] CLIA [id number] [address] [place] [address] [place] Nucleated RBC (Bld) [#/Vol] 10*3/uL Normal <0.01 [facility] Comment on above: Order Comment: Specimen Type: BLOOD SPEC IMEN Ordering [facility]: [facility] Address: [address] [place] [address] Performed By: #### I FESC #### [facility] CLIA [id number] [address] [place] [address] [place] Nucleated RBC/100 WBC (Bld) [Ratio] 0.0 /100 WBC Normal [facility] Comment on above: Order Comment: Specimen Type: BLOOD SPEC IMEN [facility] Address: [address] [place] [address] Performed By: #### I FESC #### [facility] CLIA [id number] [address] [place] [address] [place] Ovalocytes LM Ql (Bld) Few Normal [facility] Comment on above: Order Comment: Specimen Type: BLOOD SPEC IMEN Order[facility] Address: [address] [place] [address] Performed By: #### I FESC #### [facility] CLIA [id number] [address] [place] [address] [place] Platelet mean volume (Bld) [Entitic vol] 10.1 fL Normal 9.0-12.7 [facility] Comment on above: Order Comment: Specimen Type: BLOOD SPEC IMEN [facility] Address: [address] [place] [address] Performed By: #### I FESC #### [facility] CLIA [id number] [address] [place] [address] [place] Platelets (Bld) [#/Vol] 158 10*3/uL Normal 150-400 [facility] Comment on above: Order Comment: Specimen Type: BLOOD SPEC IMEN [facility] Address: [address] [place] [address] Performed By: #### I FESC #### [facility] CLIA [id number] [address] [id number] [address] [place] Platelets Estimate (Bld) [#/Vol] Adequate Normal [facility] Comment on above: Order Comment: Specimen Type: BLOOD SPEC IMEN [facility] Address: [address] [place] [address] Performed By: #### I FESC #### [facility] CLIA [id number] [address] [place] [address] [place] Polychromasia LM Ql (Bld) Slight Normal [facility] Comment on above: Order Comment: Specimen Type: BLOOD SPEC IMEN Order[facility] Address: [address] [place] [address] Performed By: #### I FESC #### [facility] CLIA [id number] [address] [place] [address] [place] RBC (Bld) [#/Vol] 4.45 10*6/uL Normal 4.20-6.00 [facility] Comment on above: Order Comment: Specimen Type: BLOOD SPEC IMEN Order[facility] Address: [address] [place] [address] Performed By: #### I FESC #### [facility] CLIA [id number] [address] [place] [address] [place] RED CELL MORPH Reviewed: see result s of individual morphologies Normal [facility] Comment on above: Order Comment: Specimen Type: BLOOD SPEC IMEN [facility] Address: [address] [place] [address] Performed By: #### I FESC #### [facility] CLIA [id number] [address] [place] [address] [place] WBC (Bld) [#/Vol] 6.91 10*3/uL Normal 3.70-11.00 [facility] Comment on above: Order Comment: Specimen Type: BLOOD SPEC IMEN [facility] Address: [address] [place] [address] Performed By: #### I FESC #### [facility] CLIA [id number] [address] [place] [address] [place] WBC Left Shift Ql (Bld) Present Normal [facility] Comment on above: Order Comment: Specimen Type: BLOOD SPEC IMEN Ordering [facility]: [facility] Address: [address] [place] [address] Performed By: #### I FES #### [facility] CLIA [id number] [address] [place] [address] [place] CNOVon 05-18-2023 CNOV Office Visit (RADTSA ) ADOLPH JOHNS ([id number]) 1945 M Date Time Provider Department 05/18/23 2:30 PM David KUMARI During your visit today, we recorded the following information about you: Peggy Lakhani RN 05/25/2023 3:02 PM Signed AUA 5 SINDI Salazar G Phillip, MD 05/25/2023 3:02 PM Signed Radiation Oncology - Follow Up Note PATIENT NAME: Adolph Johns PATIENT DIAGNOSIS: Prostate adenocarcinoma, initial PSA 7.5, biopsy Coreen score 4 + 3 = 7 (grade group 3), pathologic stage T2c, N0, M0, stage IIC [T1-T2, N0, M0, PSA <20, GG 3] (AJCC 8th ed.), s/p prostatectomy January 2016. With recent rising PSA , hematuria and bladder mass status post transurethral resection pathology consistent with metastatic/recurrent adenocarcinoma prostate. RADIATION SUMMARY: DATES OF TREATMENT: 12/14/2022- 02/02/2023 AREA TREATED: Pelvis DELIVERED DOSE: Area: Pelvis Prostate bed Bladder Base 4600 cGy in 23 fractions, 3 Arcs, IMRT, 10 MV with daily CBCT Area: Pelvic Boost 1 1400 cGy in 7 fractions, 3 Arcs, IMRT, 10 MV with daily CBCT Area: Boost 2 1000 cGy in 5 fractions, 2 Arcs, IMRT, 10 MV with daily CBCT TOTAL: 7000cGy in 35 fractions ELAPSED TIME: 50 days. INTERVAL HISTORY: The patient presents for routine follow-up . Overall doing well. PSA HISTORY: PSA (ng/mL) Date Value 05/08/2023 <0.02 01/19/2023 <0.02 12/08/2022 1.37 ALLERGIES Allergen Reactions Penicillins Rash, Swelling Teramycin [Oxytetra* Unknown abiraterone 250 mg tablet Take 4 tablets by mouth once daily. predniSONE (DELTASONE) 5 mg tablet Take 1 tablet by mouth once daily. calcium carbonate/vitamin D3 (CALCIUM WITH VITAMIN D3 ORAL) Take 1 tablet by mouth once daily. lisinopril-hydrochlor othiazide (PRINZIDE,ZESTORETIC) 10-12.5 mg per tablet Take 1 tablet by mouth once daily. REVIEW OF SYSTEMS: D/N = 4-07/07 Hematuria: none Dysuria: none Incontinence: none Urgency: none Catheter use: none Medications to aid urination: no - Total AUA Score: 5 Bowel movement frequency: 1/day Bowel movement quality: normal Blood per rectum: none Androgen deprivation: lupron PHYSICAL EXAM: 05/18/23 Weight 115.8 kg (255 lb 4.7 oz) BSA 0 BMI 0 Temp 36.1 ?C (97 ?F) Pulse 84 Resp 18 BP 144/74 SpO2 94 % KPS: 100 General Appearance: Alert and oriented. No acute distress. Rectal exam is deferred. ASSESSMENT/PLAN: Prostate adenocarcinoma, initial PSA 7.5, biopsy Coreen score 4 + 3 = 7 (grade group 3), pathologic stage T2c, N0, M0, stage IIC [T1-T2, N0, M0, PSA <20, GG 3] (AJCC 8th ed.), s/p prostatectomy January 2016. With recent rising PSA , hematuria and bladder mass status post transurethral resection pathology consistent with metastatic/recurrent adenocarcinoma prostate. Overall doing well. PSA undetectable. No significant posttreatment problems. Plan to see patient back in 6 months. Patient has continued follow-up with his urologist oncology. Signed by: David Kumari MD cc: Shahriar Stephenson [address] [place] [address] No referring provider defined for this encounter. Allergies As of Date: 05/18/2023 Noted Allergy Reaction PENICILLINS 10/22/2019 2 - Rash 7 - Swelling TERAMYCIN (OXYTETRACYCLINE) 10/22/2019 16 - Unknown Date Reviewed: 05/18/2023 Reviewed by: Earline Pascual MA - Fully Assessed Reason for Visit: Prostate Cancer [590] Primary Visit Diagnosis:Malignant neoplasm of prostate (HCC) [C61] Order(s):PROSTATE-SPE CIFIC ANTIGEN DIAGNOSTIC [SQPSA] Order #: [id number] FUTURE Prescriptions as of 05/25/2023 - abiraterone 250 mg tablet Take 4 tablets by mouth once daily. - predniSONE (DELTASONE) 5 mg tablet Take 1 tablet by mouth once daily. - calcium carbonate/vitamin D3 (CALCIUM WITH VITAMIN D3 ORAL) Take 1 tablet by mouth once daily. - lisinopril-hydrochlor othiazide (PRINZIDE,ZESTORETIC) 10-12.5 mg per tablet Take 1 tablet by mouth once daily. Problem List As Of Date 05/18/2023 Noted Resolved Secondary hyperparathyroidism ([facility]) [N25.81] 01/16/2023 Platelets decreased ([facility]) [D69.6] 01/16/2023 Visit Notes: >> Peggy Lakhani RN [facility] May 18, 2023 2:12 PM Status: Signed AUA 5 Peggy Lakhani RN Medications Discontinued During This Encounter Prescriptions - potassium chloride (K-TAB) 10 mEq tablet (Discontinued) Reported on 01/09/2023 - loperamide HCl (IMODIUM A-D ORAL) (Discontinued) Take by mouth. - acetaminophen (TYLENOL EXTRA STRENGTH) 500 mg tablet (Discontinued) Take 1,000 mg by mouth every 12 hours. Disposition: Return in about 6 months (around 11/17/2023). Follow-up and Disposition History for Encounter Date Provider Department Center 05/18/2023 [id number] KUMARI JOSE Encounter Status:Closed by David KUMARI on 05/07 (more content not included)... Normal [facility] CNOVSPon 05-18-2023 CNOVSP Visit (SP) Office ([facility]) ADOLPH JOHNS ([id number]) 1945 M Date Time Provider Department 05/18/23 1:30 PM ELIO PAYNE During your visit today, we recorded the following information about you: Temperature Pulse Respiration Blood pressure 97 degrees 84/minute 18/minute 144/74 Weight 115.8 kg Elio Payne APRN.TOY ASSEMBLER 05/19/2023 10:23 AM Signed PATIENT NAME: Adolph Johns DATE: 05/18/2023 PRIMARY CARE PHYSICIAN: Dr. Chanel OTHER PHYSICIANS: , Dr. Grimes Portions of this encounter note have been copied from the note from 12/08/2022 and has been updated where appropriate, and reflect my current medical decision making from today. CC: This is a 77 year old male with a history of MGUS and recently diagnosed recurrent prostate cancer, seen for scheduled follow-up. INTERIM HISTORY: Adolph Johns returns for scheduled follow-up. Since his last visit he received radiation to his pelvis prostate bed and bladder base 12/14/2022 through 02/02/2023. He tolerated radiation treatment well. He remains on treatment with abiraterone 1000 mg plus prednisone 5 mg daily and is tolerating it well. He does complain of some fatigue. He is scheduled to see Dr. Grimes, urology, on 05/22/2023. MEDICATIONS: abiraterone 250 mg tablet Take 4 tablets by mouth once daily. predniSONE (DELTASONE) 5 mg tablet Take 1 tablet by mouth once daily. calcium carbonate/vitamin D3 (CALCIUM WITH VITAMIN D3 ORAL) Take 1 tablet by mouth once daily. lisinopril-hydrochlor othiazide (PRINZIDE,ZESTORETIC) 10-12.5 mg per tablet Take 1 tablet by mouth once daily. potassium chloride (K-TAB) 10 mEq tablet Take 1 tablet by mouth once daily. (Patient not taking: Reported on 01/09/2023) loperamide HCl (IMODIUM A-D ORAL) Take by mouth. acetaminophen (TYLENOL EXTRA STRENGTH) 500 mg tablet Take 1,000 mg by mouth every 12 hours. ALLERGIES: Penicillins and Teramycin [Oxytetracycline] PAST MEDICAL HISTORY: PAST MEDICAL HISTORY Diagnosis Date HTN (hypertension) MGUS (monoclonal gammopathy of unknown significance) Prostate cancer (HCC) PAST SURGICAL HISTORY: PAST SURGICAL HISTORY Procedure Laterality Date COLONOSCOPY 2013 RADICAL PROSTATECTOMY REVIEW OF SYSTEMS: General: No weight loss, malaise or fevers. HEENT: Negative for frequent or significant headaches. No changes in hearing or vision, no nose bleeds or other nasal problems. Respiratory: Negative for cough, wheezing or shortness of breath. Cardiovascular: Negative for chest pain, leg swelling or palpitations. GI: Negative for abdominal discomfort, blood in stools or black stools or change in bowel habits. : No history of dysuria, frequency or incontinence. Musculoskeletal: Negative for: joint pain or swelling, back pain and muscle pain. Skin: Negative for lesions, rash and itching. Hematology/Lymphology : Negative for prolonged bleeding, bruising easily or swollen nodes. Neuro: No history of headaches, syncope, paralysis, seizures or tremors. PHYSICAL EXAM: Vitals: BP 144/74 Pulse 84 Temp 36.1 ?C (97 ?F) (Temporal) Resp 18 Wt 115.8 kg (255 lb 4.7 oz) SpO2 94% BMI 31.09 kg/m? ECOG 0 Exam limited to gross visualization where appropriate due to COVID-19. Gen.: This is an age-appropriate patient in no acute distress. Head: Appears atraumatic with no visible lesions. Eyes: Pupils equally round and reactive to light, extraocular muscles are intact. Neck: Supple. Mouth: Masked. Respiratory: Appears to be respiring comfortably. Neurologic: Nonfocal to gross visualization. Alert and oriented ?3. Psychiatric: No evidence of inappropriate anxiety or depression. Skin: Visible areas of skin without rash, lesions, wounds or petechiae. PATHOLOGY: 11/10/2022 Bladder tumor, TURBT ([facility]) Metastatic poorly differentiated adenocarcinoma, consistent with prostate primary. LABORATORY DATA: Hemoglobin (g/dL) Date Value 05/18/2023 13.6 10/29/2020 15.8 Hematocrit (%) Date Value 05/18/2023 40.6 10/29/2020 46.8 WBC (k/uL) Date Value 05/18/2023 6.91 10/29/2020 6.85 Platelet Count (k/uL) Date Value 05/18/2023 158 10/29/2020 162 PSA 11/11/2019 0.06 10/05/2020 0.05 09/14/2021 <0.13 09/26/2022 2.05 12/08/2022 1.37 RADIOLOGY/OTHER STUDIES: 11/28/2022 MRI prostate IMPRESSION: Recurrent mass arising/extending from the right vas deferens remanent with adjacent conglomerate RIGHT pelvic lymphadenopathy, as detailed in the report. Additional groin lymph nodes suspicious for metastases, particularly the lymph node adjacent to the RIGHT spermatic cord. 10/28/2022 PSMA PET scan IMPRESSION: HEAD/NECK: * No PSMA-expressing lesions suspicious for metastases. CHEST: * No PSMA-expressing lesions suspicious for metastases. ABDOMENS/PELVIS: * Status post prostatectomy with PSMA-expressing lo (more content not included)... Normal [facility] Comprehensive metabolic 2000 panelon 05-18-2023 Albumin [Mass/Vol] 4.3 g/dL Normal 3.9-4.9 [facility] Comment on above: Order Comment: Specimen Type: BLOOD SPEC IMEN [facility] Address: [address] [place] [address] Performed By: #### I FESC #### [facility] CLIA [id number] [address] [place] [address] [place] ALP [Catalytic activity/Vol] 56 U/L Normal 38-113 [facility] Comment on above: Order Comment: Specimen Type: BLOOD SPEC IMEN [facility] Address: [address] [place] [address] Performed By: #### I FESC #### [facility] CLIA [id number] [address] [place] [address] [place] ALT [Catalytic activity/Vol] 12 U/L Normal 10-54 [facility] Comment on above: Order Comment: Specimen Type: BLOOD SPEC IMEN [facility] Address: [address] [place] [address] Performed By: #### I FESC #### [facility] CLIA [id number] [address] [place] [address] [place] Anion gap [Moles/Vol] 13 mmol/L Normal 9-18 [facility] Comment on above: Order Comment: Specimen Type: BLOOD SPEC IMEN Order[facility]: [facility] Address: [address] [place] [address] Performed By: #### I FESC #### [facility] CLIA [id number] [address] [place] [address] [place] AST [Catalytic activity/Vol] 21 U/L Normal 14-40 [facility] Comment on above: Order Comment: Specimen Type: BLOOD SPEC IMEN [facility] Address: [address] [place] [address] Performed By: #### I FESC #### [facility] CLIA [id number] [address] [place] [address] [place] Bilirubin [Mass/Vol] 0.7 mg/dL Normal 0.2-1.3 [facility] Comment on above: Order Comment: Specimen Type: BLOOD SPEC IMEN [facility] Address: [address] [place] [address] Performed By: #### I FESC #### [facility] CLIA [id number] [address] [place] [address] [place] Calcium [Mass/Vol] 10.5 mg/dL High 8.5-10.2 [facility] Comment on above: Order Comment: Specimen Type: BLOOD SPEC IMEN [facility] Address: [address] [place] [address] Performed By: #### I FESC #### [facility] CLIA [id number] [address] [place] [address] [place] Chloride [Moles/Vol] 105 mmol/L Normal 97-105 [facility] Comment on above: Order Comment: Specimen Type: BLOOD SPEC IMEN [facility] Address: [address] [place] [address] Performed By: #### I FESC #### [facility] CLIA [id number] [address] [place] [address] [place] CO2 [Moles/Vol] 25 mmol/L Normal 22-30 [facility] Comment on above: Order Comment: Specimen Type: BLOOD SPEC IMEN [facility] Address: [address] [place] [address] Performed By: #### I FESC #### [facility] CLIA [id number] [address] [place] [address] [place] Creatinine [Mass/Vol] 1.34 mg/dL High 0.73-1.22 [facility] Comment on above: Order Comment: Specimen Type: BLOOD SPEC IMEN [facility] Address: [address] [place] [address] Performed By: #### I FESC #### [facility] CLIA [id number] [address] [place] [address] [place] Creatinine and Glomerular filtration rate.predicted panel (S/P/Bld) 55 mL/min/1.73m??? Low >=60 [facility] Comment on above: Order Comment: Specimen Type: BLOOD SPEC IMEN [facility] Address: [address] [place] [address] Result Comment: Paty mated Glomerular Filtration Rate (eGFR) is calculated using the 2020 CKD-EPI creatinine equation. This equation utilizes serum creatinine, sex, and age as parameters. The creatinine assay has traceable calibration to isotope dilution-mass spectrometry. Refer to KDIGO guidelines for clinical interpretation. In patients with unstable renal function, e.g. those with acute kidney injury, the eGFR may not accurately reflect actual GFR. Performed By: #### I FESC #### [facility] CLIA [id number] [address] [place] [address] [place] Glucose [Mass/Vol] 189 mg/dL High 74-99 [facility] Comment on above: Order Comment: Specimen Type: BLOOD SPEC IMEN [facility] Address: [address] [place] [address] Result Comment: The [place] Diabetes [employer] (ADA) provides guidance for cutoff values for fasting glucose and random glucose. The ADA defines fasting as no caloric intake for at least 8 hours. Fasting plasma glucose results between 100 to 125 mg/dL indicate increased risk for diabetes (prediabetes). Fasting plasma glucose results greater than or equal to 126 mg/dL meet the criteria for diagnosis of diabetes. In the absence of unequivocal hyperglycemia, results should be confirmed by repeat testing. In a patient with classic symptoms of hyperglycemia or hyperglycemic crisis, random plasma glucose results greater than or equal to 200 mg/dL meet the criteria for diagnosis of diabetes. Reference: Standards of Medical Care in Diabetes 2016, [place] [employer]. Diabetes Care. 2016.39(Suppl 1). Performed By: #### I FESC #### [facility] CLIA [id number] [address] [place] [address] [place] Potassium [Moles/Vol] 3.9 mmol/L Normal 3.7-5.1 [facility] Comment on above: Order Comment: Specimen Type: BLOOD SPEC IMEN [facility] Address: [address] [place] [address] Performed By: #### I FESC #### [facility] CLIA [id number] [address] [place] [address] [place] Protein [Mass/Vol] 7.2 g/dL Normal 6.3-8.0 [facility] Comment on above: Order Comment: Specimen Type: BLOOD SPEC IMEN [facility] Address: [address] [place] [address] Performed By: #### I FESC #### [facility] CLIA [id number] [address] [place] [address] [place] Sodium [Moles/Vol] 143 mmol/L Normal 136-144 [facility] Comment on above: Order Comment: Specimen Type: BLOOD SPEC IMEN [facility] Address: [address] [place] [address] Performed By: #### I FESC #### [facility] CLIA [id number] [address] [place] [address] [place] Urea nitrogen [Mass/Vol] 23 mg/dL Normal 9-24 [facility] Comment on above: Order Comment: Specimen Type: BLOOD SPEC IMEN [facility] Address: [address] [place] [address] Performed By: #### I FES #### [facility] CLIA [id number] [address] [place] [address] [place] IMMUNOFIXATION SCREEN, SERUM on 05-18-2023 INTERPRETATION (MPA) Atypical restricted bands are present in the IgG and lambda regions. Consistent with IgG lambda monoclonal gammopathy. Normal [facility] Comment on above: Order Comment: Specimen Type: BLOOD SPEC IMEN [facility] Address: [address] [place] [address] Performed By: #### I FESC #### [facility] CLIA [id number] [address] [place] [address] [place] MPA RESULT M protein is present. Abnormal No M p rotein is identified. [facility] Comment on above: Order Comment: Specimen Type: BLOOD SPEC IMEN [facility] Address: [address] [place] [address] Performed By: #### I FESC #### [facility] CLIA [id number] [address] [place] [address] [place] STAFF REVIEW (MPA) Reviewed by Gonzalo Haro MD, Ph.D ([id number]) Normal [facility] Comment on above: Order Comment: Specimen Type: BLOOD SPEC IMEN [facility] Address: [address] [place] [address] Performed By: #### I FESC #### [facility] CLIA [id number] [address] [place] [address] [place] IMMUNOGLOBULINS,IGG,IGA,IGMo n 05-18-2023 IgA [Mass/Vol] 57 mg/dL Low 70-400 [facility] Comment on above: Order Comment: Specimen Type: BLOOD SPEC IMEN [facility] Address: [address] [place] [address] Performed By: #### I FES #### [facility] CLIA [id number] [address] [place] [address] [place] IgG [Mass/Vol] 1238 mg/dL Normal 700-1600 [facility] Comment on above: Order Comment: Specimen Type: BLOOD SPEC IMEN [facility] Address: [address] [place] [address] Performed By: #### I FES #### [facility] CLIA [id number] [address] [place] [address] [place] IgM [Mass/Vol] 74 mg/dL Normal 40-230 [facility] Comment on above: Order Comment: Specimen Type: BLOOD SPEC IMEN [facility] Address: [address] [place] [address] Performed By: #### I FES #### [facility] CLIA [id number] [address] [place] [address] [place] KAPPA/LIM,FREE,SERon 2023 Immunoglobulin light chains.kappa.zaida e (S) [Mass/Vol] 25.7 mg/L High 3.3-19.4 [facility] Comment on above: Order Comment: Specimen Type: BLOOD SPEC IMENOrdering Facility: [facility] Address: [address] [place] [address] Result Comment: Rare ly, increased serum free light chains levels may not be detected or accurately quantified due to prozone phenomenon or in high viscosity samples using this immunoturbidimetric assay. Correlation with other laboratory results and clinical findings is recommended. The [place] Free Light Chain was performed using the Binding Site Optilite immunoturbidimetric method. Result obtained with different assay methods or kits cannot be used interchangeably. Performed By: #### K LFRS ####[facility] [id number] [place] [address] [place] Immunoglobulin light chains.kappa/Imm unoglobulin light chains.lambda (S) [Mass ratio] 1.42 Normal 0.26-1.65 [facility] Comment on above: Order Comment: Specimen Type: BLOOD SPEC IMENOrdering Facility: [facility] Address: [address] [place] [address] Performed By: #### K LFRS ####[facility] [id number] [place] [address] [place] Immunoglobulin light chains.lambda.fr ee [Mass/Vol] 18.1 mg/L Normal 5.7-26.3 [facility] Comment on above: Order Comment: Specimen Type: BLOOD SPEC IMENOrdering Facility: [facility] Address: [address] [place] [address] Result Comment: Rare ly, increased serum free light chains levels may not be detected or accurately quantified due to prozone phenomenon or in high viscosity samples using this immunoturbidimetric assay. Correlation with other laboratory results and clinical findings is recommended. The Lambda Free Light Chain was performed using the Binding Site Optilite immunoturbidimetric method. Result obtained with different assay methods or kits cannot be used interchangeably. Performed By: #### K LFRS ####[facility] [id number] [place] [address] [place] PROTEIN ELECTROPHORESIS SERU M (P)on 05-18-2023 Albumin [Mass/Vol] 3.92 g/dL Normal 3.43-5.41 [facility] Comment on above: Order Comment: Specimen Type: BLOOD SPEC IMENOrdering Facility: [facility] Address: [address] [place] [address] Performed By: #### L [id number] ####[facility] [id number] [place] [address] [place] Alpha 1 globulin Elph [Mass/Vol] 0.34 g/dL Normal 0.18-0.43 [facility] Comment on above: Order Comment: Specimen Type: BLOOD SPEC IMENOrdering Facility: [facility] Address: [address] [place] [address] Performed By: #### L [id number] ####[facility] [id number] [place] [address] [place] Alpha 2 globulin Elph [Mass/Vol] 0.84 g/dL Normal 0.42-0.98 [facility] Comment on above: Order Comment: Specimen Type: BLOOD SPEC IMENOrdering Facility: [facility] Address: [address] [place] [address] Performed By: #### L [id number] ####[facility] [id number] [place] [address] [place] Beta globulin Elph [Mass/Vol] 0.65 g/dL Normal 0.61-1.17 [facility] Comment on above: Order Comment: Specimen Type: BLOOD SPEC IMENOrdering Facility: [facility] Address: [address] [place] [address] Performed By: #### L [id number] ####[facility] [id number] [place] [address] [place] Gamma globulin Elph [Mass/Vol] 1.15 g/dL Normal 0.53-1.51 [facility] Comment on above: Order Comment: Specimen Type: BLOOD SPEC IMENOrdering Facility: [facility] Address: [address] [place] [address] Performed By: #### L [id number] ####[facility] [id number] [place] [address] [place] INTERPRETATION COMMENT FOR PROTEIN ELECTROPHORESIS See separate immunofixation report for characterization of monoclonal gammopathy. Normal [facility] Comment on above: Order Comment: Specimen Type: BLOOD SPEC IMENOrdering Facility: [facility] Address: [address] [place] [address] Performed By: #### L [id number] ####[facility] [id number] [place] [address] [place] M-PROTEIN LOCATION Gamma Fraction 1 Normal [facility] Comment on above: Order Comment: Specimen Type: BLOOD SPEC IMENOrdering Facility: [facility] Address: [address] [place] [address] Performed By: #### L [id number] ####[facility] [id number] [place] [address] [place] Protein Fractions [Interp] An M protein is identified on protein electrophoresis. Abnormal No definitive M protein is identified on protein electrophoresis. [facility] Comment on above: Order Comment: Specimen Type: BLOOD SPEC IMENOrdering Facility: [facility] Address: [address] [place] [address] Performed By: #### L [id number] ####[facility] [id number] [place] [address] [place] Protein.monoclon al Elph [Mass/Vol] 0.84 g/dL High <=0.00 [facility] Comment on above: Order Comment: Specimen Type: BLOOD SPEC IMENOrdering Facility: [facility] Address: [address] [place] [address] Performed By: #### L [id number] ####[facility] [id number] [place] [id number] [place] SPE STAFF REVIEW Reviewed by Gonzalo Haro MD, Ph.D ([id number]) Normal [facility] Comment on above: Order Comment: Specimen Type: BLOOD SPEC IMENOrdering Facility: [facility] Address: [address] [place] [address] Performed By: #### L [id number] ####[facility] [id number] [address] [place] Prot SerPl-mCncon 05-18-2023 Protein [Mass/Vol] 6.9 g/dL Normal 6.3-8.0 [facility] Comment on above: Order Comment: Specimen Type: BLOOD SPEC IMENOrdering Facility: [facility] Address: [address] [place] [address] Performed By: #### 2 885-2 ####[facility] [id number] [address] [place] Jameson 05-10-2023 [place] Telephone ([place]) ADOLPH JOHNS ([id number]) 1945 M Date Time Provider Department 05/10/23 ELIO PAYNE During your visit today, we recorded the following information about you: Bettina Sargent MA 05/10/2023 3:17 PM Signed Patient coming in 05/18/23 for follow up with labs. Please add lab orders. Bettina El MA Allergies As of Date: 05/10/2023 Noted Allergy Reaction PENICILLINS 10/22/2019 2 - Rash 7 - Swelling TERAMYCIN (OXYTETRACYCLINE) 10/22/2019 16 - Unknown Date Reviewed: 01/31/2023 Reviewed by: Yuko Barahona LPN - Fully Assessed Reason for Visit: Lab Orders [2018] Primary Visit Diagnosis:Prostate cancer (HCC) [C61] Other Visit Diagnosis:Monoclonal gammopathy [D47.2] Order(s):CBC + DIFF [SQCBCDIF] Order #: [id number] FUTURE COMP METABOLIC PANEL [SQCMP] Order #: [id number] FUTURE PSA/PROSTSPECAG DIAG [SQPSA] Order #: [id number] FUTURE MONOCLONAL PROTEIN, SERUM (BLOOD) [SQSERMPA] Order #: [id number] FUTURE PROTEIN ELECTROPHORESIS SERUM W/INTERP [SQSEPG] Order #: [id number] FUTURE Prescriptions as of 05/11/2023 - abiraterone 250 mg tablet Take 4 tablets by mouth once daily. - predniSONE (DELTASONE) 5 mg tablet Take 1 tablet by mouth once daily. - potassium chloride (K-TAB) 10 mEq tablet Take 1 tablet by mouth once daily. - loperamide HCl (IMODIUM A-D ORAL) Take by mouth. - acetaminophen (TYLENOL EXTRA STRENGTH) 500 mg tablet Take 1,000 mg by mouth every 12 hours. - calcium carbonate/vitamin D3 (CALCIUM WITH VITAMIN D3 ORAL) Take 1 tablet by mouth once daily. - lisinopril-hydrochlor othiazide (PRINZIDE,ZESTORETIC) 10-12.5 mg per tablet Take 1 tablet by mouth once daily. Problem List As Of Date 05/10/2023 Noted Resolved Secondary hyperparathyroidism (HCC) [N25.81] 01/16/2023 Platelets decreased (HCC) [D69.6] 01/16/2023 Encounter Status:Closed by NICOLAS HWANG on 05/11/23 Normal [facility] CBC W Auto Differential pane l (Bld)on 05-08-2023 Basophils (Bld) [#/Vol] 0.03 10*3/uL Normal <0.11 [facility] Comment on above: Order Comment: Specimen Type: BLOOD SPEC IMEN [facility] Address: [address] [place] [address] Performed By: #### 5 7021-8 #### [facility] CLIA [id number] [address] [place] [address] 34869 Basophils/100 WBC (Bld) 0.4 % Normal [facility] Comment on above: Order Comment: Specimen Type: BLOOD SPEC IMEN [facility] Address: [address] [place] [address] Performed By: #### 5 7021-8 #### [facility] CLIA [id number] [address] [place] [address] 29431 Differential cell count method Nom (Bld) Auto Normal [facility] Comment on above: Order Comment: Specimen Type: BLOOD SPEC IMEN [facility] Address: [address] [place] [address] Performed By: #### 5 7021-8 #### [facility] CLIA [id number] [address] [place] [address]8548 Eosinophils (Bld) [#/Vol] 0.15 10*3/uL Normal <0.46 [facility] Comment on above: Order Comment: Specimen Type: BLOOD SPEC IMEN [facility] Address: [address] [place] [address] Performed By: #### 5 7021-8 #### [facility] CLIA [id number] [address] [place] [address] 34443 Eosinophils/100 WBC (Bld) 2.1 % Normal [facility] Comment on above: Order Comment: Specimen Type: BLOOD SPEC IMEN [facility] Address: [address] [place] [address] Performed By: #### 5 7021-8 #### [facility] CLIA [id number] [address] [place] [address] 58602 Erythrocyte distribution width (RBC) [Ratio] 13.7 % Normal 11.5-15.0 [facility] Comment on above: Order Comment: Specimen Type: BLOOD SPEC IMEN [facility] Address: [facility] [place] [address] Performed By: #### 5 7021-8 #### [facility] CLIA [id number] [address] [place] [address]4611 Hematocrit (Bld) [Volume fraction] 39.9 % Normal 39.0-51.0 [facility] Comment on above: Order Comment: Specimen Type: BLOOD SPEC IMEN [facility] Address: [address] [place] [address] Performed By: #### 5 7021-8 #### [facility] CLIA [id number] [address] [place] [address] 47617 Hemoglobin (Bld) [Mass/Vol] 13.4 g/dL Normal 13.0-17.0 [facility] Comment on above: Order Comment: Specimen Type: BLOOD SPEC IMEN [facility] Address: [address] [place] [address] Performed By: #### 5 7021-8 #### [facility] CLIA [id number] [address] [place] [address] 01748 Immature granulocytes (Bld) [#/Vol] 0.11 10*3/uL High <0.10 [facility] Comment on above: Order Comment: Specimen Type: BLOOD SPEC IMEN [facility] Address: [address] [place] [address] Performed By: #### 5 7021-8 #### [facility] CLIA [id number] [address] [place] [address] 86873 Immature granulocytes/100 WBC (Bld) 1.6 % Normal [facility] Comment on above: Order Comment: Specimen Type: BLOOD SPEC IMEN [facility] Address: [address] [place] [address] Performed By: #### 5 7021-8 #### [facility] CLIA [id number] [address] [place] [address] 22097 Lymphocytes (Bld) [#/Vol] 0.75 10*3/uL Low 1.00-4.00 [facility] Comment on above: Order Comment: Specimen Type: BLOOD SPEC IMEN [facility] Address: [address] [place] [address] Performed By: #### 5 7021-8 #### [facility] CLIA [id number] [address] [place] [address] 18782 Lymphocytes/100 WBC (Bld) 10.7 % Normal [facility] Comment on above: Order Comment: Specimen Type: BLOOD SPEC IMEN [facility] Address: [address] [place] [address] Performed By: #### 5 7021-8 #### [facility] CLIA [id number] [address] [place] [address] 61634 MCH (RBC) [Entitic mass] 30.8 pg Normal 26.0-34.0 [facility] Comment on above: Order Comment: Specimen Type: BLOOD SPEC IMEN [facility] Address: [address] [place] [address] Performed By: #### 5 7021-8 #### [facility] CLIA [id number] [address] [place] [address] 02908 MCHC (RBC) [Mass/Vol] 33.6 g/dL Normal 30.5-36.0 [facility] Comment on above: Order Comment: Specimen Type: BLOOD SPEC IMEN [facility] Address: [address] [place] [address] Performed By: #### 5 7021-8 #### [facility] CLIA [id number] [address] [place] [address] 49195 MCV (RBC) [Entitic vol] 91.7 fL Normal 80.0-100.0 [facility] Comment on above: Order Comment: Specimen Type: BLOOD SPEC IMEN [facility] Address: [address] [place] [address] Performed By: #### 5 7021-8 #### [facility] CLIA [id number] [address] [place] [address] 60524 Monocytes (Bld) [#/Vol] 0.56 10*3/uL Normal <0.87 [facility] Comment on above: Order Comment: Specimen Type: BLOOD SPEC IMEN [facility] Address: [address] [place] [address] Performed By: #### 5 7021-8 #### [facility] CLIA [id number] [address] [place] [address] Monocytes/100 WBC (Bld) 8.0 % Normal [facility] Comment on above: Order Comment: Specimen Type: BLOOD SPEC IMEN [facility] Address: [address] [place], [place] [address] Performed By: #### 5 7021-8 #### [facility] CLIA [id number] [address] [place] [address] 85067 Neutrophils (Bld) [#/Vol] 5.44 10*3/uL Normal 1.45-7.50 [facility] Comment on above: Order Comment: Specimen Type: BLOOD SPEC IMEN [facility] Address: [address] [place] [address] Performed By: #### 5 7021-8 #### [facility] CLIA [id number] [address] [place] [address] 08282 Neutrophils/100 WBC (Bld) 77.2 % Normal [facility] Comment on above: Order Comment: Specimen Type: BLOOD SPEC IMEN [facility] Address: [address] [place] [address] Performed By: #### 5 7021-8 #### [facility] CLIA [id number] [address] [place] [address] 41669 Nucleated RBC (Bld) [#/Vol] 10*3/uL Normal <0.01 [facility] Comment on above: Order Comment: Specimen Type: BLOOD SPEC IMEN [facility] Address: [address] [place], [place] [address] Performed By: #### 5 7021-8 #### [facility] CLIA [id number] [address] [place] [address] 43750 Nucleated RBC/100 WBC (Bld) [Ratio] 0.0 /100 WBC Normal [facility] Comment on above: Order Comment: Specimen Type: BLOOD SPEC IMEN [facility] Address: [address] [place] [address] Performed By: #### 5 7021-8 #### [facility] CLIA [id number] [address] [place] [address] 79499 Platelet mean volume (Bld) [Entitic vol] 9.7 fL Normal 9.0-12.7 [facility] Comment on above: Order Comment: Specimen Type: BLOOD SPEC IMEN [facility] Address: [address] [place] [address] Performed By: #### 5 7021-8 #### [facility] CLIA [id number] [address] [place] [address] 71584 Platelets (Bld) [#/Vol] 146 10*3/uL Low 150-400 [facility] Comment on above: Order Comment: Specimen Type: BLOOD SPEC IMEN [facility] Address: [address] [place] [address] Performed By: #### 5 7021-8 #### [facility] CLIA [id number] [address] [place] [address] 17753 RBC (Bld) [#/Vol] 4.35 10*6/uL Normal 4.20-6.00 [facility] Comment on above: Order Comment: Specimen Type: BLOOD SPEC IMEN [facility] Address: [address] [place] [address] Performed By: #### 5 7021-8 #### [facility] CLIA [id number] [address] [place] [address] 52180 WBC (Bld) [#/Vol] 7.04 10*3/uL Normal 3.70-11.00 [facility] Comment on above: Order Comment: Specimen Type: BLOOD SPEC IMEN [facility] Address: [address] [place] [address] Performed By: #### 5 7021-8 #### [facility] CLIA [id number] [address] [place] [address] 72285 PSA SerPl-mCncon 05-08-2023 Prostate specific Ag [Mass/Vol] ng/mL Normal <2.60 [facility] Comment on above: Order Comment: Specimen Type: BLOOD SPEC IMENOrdering Facility: [facility] Address: [address] [place] [id number] Result Comment: Tota l PSA test methodology used is the Electrochemiluminescence Immunoassay by [employer]. Total PSA values by differing methodologies cannot be interchanged. Performed By: #### 2 857-1 ####[facility] [id number] [facility] [address] [place] [address] [place] Pre-Certification Formon Pre-Certificatio n Form [id number]#1 .00[facility]FF [facility] Consultation Noteon 02-24-19 Consultation Note [id number]#1. 00[facility]FF [facility] CNOVon 01-31-2023 CNOV Office Visit (RADTSA ) ADOLPH JOHNS ([id number]) 1945 M Date Time Provider Department 01/31/23 11:30 AM David KUMARI During your visit today, we recorded the following information about you: Temperature Pulse Respiration Blood pressure 97.3 degrees 79/minute 16/minute 101/66 Weight 109.9 kg David Kumari MD 02/01/2023 8:36 AM Signed Radiation Oncology - On Treatment Review (OTR) Note PATIENT NAME: Adolph Johns PATIENT DIAGNOSIS: Prostate adenocarcinoma, initial PSA 7.5, biopsy Coreen score 4 + 3 = 7 (grade group 3), pathologic stage T2c, N0, M0, stage IIC [T1-T2, N0, M0, PSA <20, GG 3] (AJCC 8th ed.), s/p prostatectomy January 2016. With recent rising PSA , hematuria and bladder mass status post transurethral resection pathology consistent with metastatic/recurrent adenocarcinoma prostate. COURSE: definitive and salvage Current dose: 6600 cGy in 33 fx Planned dose: 7000 cGy in 35 fx and possible boost SUBJECTIVE: Doing well. No significant diarrhea. Bladder sxs stable. PHYSICAL EXAM: 01/31/23 1129 BP: 101/66 Pulse: 79 Resp: 16 Temp: 36.3 ?C (97.3 ?F) SpO2: 95% Weight: 109.9 kg (242 lb 4.6 oz) KPS: 100 General Appearance: Alert and oriented. No acute distress. Skin: Small area of actinic keratosis right arm versus small squamous of carcinoma. Near area of previous excision IMAGING/LAB RESULTS: PSA (ng/mL) Date Value 01/19/2023 <0.02 12/08/2022 1.37 Hemoglobin (g/dL) Date Value 01/19/2023 14.9 10/29/2020 15.8 Hematocrit (%) Date Value 01/19/2023 43.8 10/29/2020 46.8 WBC (k/uL) Date Value 01/19/2023 7.94 10/29/2020 6.85 Platelet Count (k/uL) Date Value 01/19/2023 145 10/29/2020 162 TOXICITY ASSESSMENT (CTC v4.0): Fatigue:grade 1 - Fatigue relieved by rest Radiation Dermatitis: grade 0 - No symptoms Diarrhea:grade 1 Proctitis: grade 0 - No symptoms Urinary frequency: grade 1 Dysuria: grade 0 - No symptoms Urinary incontinence: grade 0 (No symptoms) Urinary retention: grade 0 - No symptoms Treatment chart checked: Yes Patient treatment site reviewed and verified:Yes Port films reviewed and current:Yes Medications started: None ASSESSMENT/PLAN: Overall doing well. Chart and imaging reviewed. Continue radiation as outlined. Finishes this week, follow up care discussed and arranged. David Kumari MD Allergies As of Date: 01/31/2023 Noted Allergy Reaction PENICILLINS 10/22/2019 2 - Rash 7 - Swelling TERAMYCIN (OXYTETRACYCLINE) 10/22/2019 16 - Unknown Date Reviewed: 01/31/2023 Reviewed by: Yuko Barahona LPN - Fully Assessed Reason for Visit: Radiotherapy On-treatment Visit [1722] Primary Visit Diagnosis:Malignant neoplasm of prostate (HCC) [C61] Prescriptions as of 02/01/2023 - abiraterone 250 mg tablet Take 4 tablets by mouth once daily. - predniSONE (DELTASONE) 5 mg tablet Take 1 tablet by mouth once daily. - potassium chloride (K-TAB) 10 mEq tablet Take 1 tablet by mouth once daily. - loperamide HCl (IMODIUM A-D ORAL) Take by mouth. - acetaminophen (TYLENOL EXTRA STRENGTH) 500 mg tablet Take 1,000 mg by mouth every 12 hours. - calcium carbonate/vitamin D3 (CALCIUM WITH VITAMIN D3 ORAL) Take 1 tablet by mouth once daily. - lisinopril-hydrochlor othiazide (PRINZIDE,ZESTORETIC) 10-12.5 mg per tablet Take 1 tablet by mouth once daily. Problem List As Of Date 01/31/2023 Noted Resolved Secondary hyperparathyroidism (HCC) [N25.81] 01/16/2023 Platelets decreased (HCC) [D69.6] 01/16/2023 Encounter Status:Closed by [facility]I [facility]01[facility]SANDYTSA ) ADOLPH JOHNS ([id number]) 1945 M Date Time Provider Department 01/26/23 11:05 AM David KUMARI During your visit today, we recorded the following information about you: David Kumari MD 01/26/2023 11:22 AM Signed Boost set up films reviewed Allergies As of Date: 01/26/2023 Noted Allergy Reaction PENICILLINS 10/22/2019 2 - Rash 7 - Swelling TERAMYCIN (OXYTETRACYCLINE) 10/22/2019 16 - Unknown Date Reviewed: 01/23/2023 Reviewed by: Yuko Barahona LPN - Fully Assessed Primary Visit Diagnosis:Malignant neoplasm of prostate (HCC) [C61] Prescriptions as of 01/26/2023 - abiraterone 250 mg tablet Take 4 tablets by mouth once daily. - predniSONE (DELTASONE) 5 mg tablet Take 1 tablet by mouth once daily. - potassium chloride (K-TAB) 10 mEq tablet Take 1 tablet by mouth once daily. - loperamide HCl (IMODIUM A-D ORAL) Take by mouth. - acetaminophen (TYLENOL EXTRA STRENGTH) 500 mg tablet Take 1,000 mg by mouth every 12 hours. - calcium carbonate/vitamin D3 (CALCIUM WITH VITAMIN D3 ORAL) Take 1 tablet by mouth once daily. - lisinopril-hydrochlor othiazide (PRINZIDE,ZESTORETIC) 10-12.5 mg per tablet Take 1 tablet by mouth once daily. Problem List As Of Date 01/26/2023 Noted Resolved Secondary hyperparathyroidism (HCC) [N25.81] 01/16/2023 Platelets decreased (HCC) [D69.6] 01/16/2023 Encounter Status:Closed by David KUMARI on 01/26/23 [facility] 01-23-2023 CNOV Office Visit (RADTSA ) GONZÁLEZ JOHNSOLL ([id number]) 1945 M Date Time Provider Department 01/23/23 11:30 AM David KUMARI During your visit today, we recorded the following information about you: David Kumari MD 01/23/2023 2:27 PM Signed Radiation Oncology - On Treatment Review (OTR) Note PATIENT NAME: Adolph Johns PATIENT DIAGNOSIS: Prostate adenocarcinoma, initial PSA 7.5, biopsy Lefors score 4 + 3 = 7 (grade group 3), pathologic stage T2c, N0, M0, stage IIC [T1-T2, N0, M0, PSA <20, GG 3] (AJCC 8th ed.), s/p prostatectomy January 2016. With recent rising PSA , hematuria and bladder mass status post transurethral resection pathology consistent with metastatic/recurrent adenocarcinoma prostate. COURSE: definitive and salvage Current dose: 5600 cGy in 28 fx Planned dose: 7000 cGy in 35 fx and possible boost SUBJECTIVE: Still with significant bladder urgency also stable . Mild diarrhea using Imodium stable. PHYSICAL EXAM: 01/23/23 1134 BP: (P) 110/71 Pulse: (P) 65 Resp: (P) 18 Temp: (P) 36.4 ?C (97.5 ?F) SpO2: (P) 96% Weight: (P) 109.4 kg (241 lb 2.9 oz) KPS: 100 General Appearance: Alert and oriented. No acute distress. Skin: Small area of actinic keratosis right arm versus small squamous of carcinoma. Near area of previous excision IMAGING/LAB RESULTS: Hemoglobin (g/dL) Date Value 01/19/2023 14.9 10/29/2020 15.8 Hematocrit (%) Date Value 01/19/2023 43.8 10/29/2020 46.8 WBC (k/uL) Date Value 01/19/2023 7.94 10/29/2020 6.85 Platelet Count (k/uL) Date Value 01/19/2023 145 10/29/2020 162 TOXICITY ASSESSMENT (CTC v4.0): Fatigue:grade 1 - Fatigue relieved by rest Radiation Dermatitis: grade 0 - No symptoms Diarrhea:grade 1 Proctitis: grade 0 - No symptoms Urinary frequency: grade 1 Dysuria: grade 0 - No symptoms Urinary incontinence: grade 0 (No symptoms) Urinary retention: grade 0 - No symptoms Treatment chart checked: Yes Patient treatment site reviewed and verified:Yes Port films reviewed and current:Yes Medications started: None ASSESSMENT/PLAN: Overall doing well. Chart and imaging reviewed. Continue radiation as outlined. David Kumari MD Allergies As of Date: 01/23/2023 Noted Allergy Reaction PENICILLINS 10/22/2019 2 - Rash 7 - Swelling TERAMYCIN (OXYTETRACYCLINE) 10/22/2019 16 - Unknown Date Reviewed: 01/23/2023 Reviewed by: Yuko Barahona LPN - Fully Assessed Reason for Visit: Radiotherapy On-treatment Visit [1722] Primary Visit Diagnosis:Malignant neoplasm of prostate (HCC) [C61] Order(s):PSA/PROSTSPE CAG DIAG [SQPSA] Order #: [id number] FUTURE Prescriptions as of 01/23/2023 - abiraterone 250 mg tablet Take 4 tablets by mouth once daily. - predniSONE (DELTASONE) 5 mg tablet Take 1 tablet by mouth once daily. - potassium chloride (K-TAB) 10 mEq tablet Take 1 tablet by mouth once daily. - loperamide HCl (IMODIUM A-D ORAL) Take by mouth. - acetaminophen (TYLENOL EXTRA STRENGTH) 500 mg tablet Take 1,000 mg by mouth every 12 hours. - calcium carbonate/vitamin D3 (CALCIUM WITH VITAMIN D3 ORAL) Take 1 tablet by mouth once daily. - lisinopril-hydrochlor othiazide (PRINZIDE,ZESTORETIC) 10-12.5 mg per tablet Take 1 tablet by mouth once daily. Problem List As Of Date 01/23/2023 Noted Resolved Secondary hyperparathyroidism (HCC) [N25.81] 01/16/2023 Platelets decreased (HCC) [D69.6] 01/16/2023 Encounter Status:Closed by David KUMARI on 01/23/23 Normal [facility] CBC W Auto Differential pane l (Bld)on 01-05-2023 Basophils (Bld) [#/Vol] <0.11 k/uL [facility] Basophils/100 WBC (Bld) 0.3 % [facility] Differential cell count method Nom (Bld) Auto [facility] Eosinophils (Bld) [#/Vol] 0.09 10*3/uL <0.46 k/uL [facility] Eosinophils/100 WBC (Bld) 1.1 % [facility] Erythrocyte distribution width (RBC) [Ratio] 14.9 % 11.5 - 15.0 % [facility] Hematocrit (Bld) [Volume fraction] 44.5 % 39.0 - 51.0 % [facility] Hemoglobin (Bld) [Mass/Vol] 15.0 g/dL 13.0 - 17.0 g/dL [facility] Immature granulocytes (Bld) [#/Vol] 0.08 10*3/uL <0.10 k/uL [facility] Immature granulocytes/100 WBC (Bld) 1.0 % [facility] Lymphocytes (Bld) [#/Vol] 0.45 10*3/uL Low 1.00 - 4.00 k/uL [facility] Lymphocytes/100 WBC (Bld) 5.6 % [facility] MCH (RBC) [Entitic mass] 29.1 pg 26.0 - 34.0 pg [facility] MCHC (RBC) [Mass/Vol] 33.7 g/dL 30.5 - 36.0 g/dL [facility] MCV (RBC) [Entitic vol] 86.2 fL 80.0 - 100.0 fL [facility] Monocytes (Bld) [#/Vol] 0.66 10*3/uL <0.87 k/uL [facility] Monocytes/100 WBC (Bld) 8.3 % [facility] Neutrophils (Bld) [#/Vol] 6.67 10*3/uL 1.45 - 7.50 k/uL [facility] Neutrophils/100 WBC (Bld) 83.7 % [facility] Nucleated RBC (Bld) [#/Vol] <0.01 k/uL [facility] Nucleated RBC/100 WBC (Bld) [Ratio] 0.0 /100 WBC [facility] Platelet mean volume (Bld) [Entitic vol] 10.1 fL 9.0 - 12.7 fL [facility] Platelets (Bld) [#/Vol] 100 10*3/uL Low 150 - 400 k/uL [facility] RBC (Bld) [#/Vol] 5.16 10*6/uL 4.20 - 6.00 m/uL [facility] WBC (Bld) [#/Vol] 7.97 10*3/uL 3.70 - 11.00 k/uL [facility] Comprehensive metabolic 2000 panelon 01-05-2023 Albumin [Mass/Vol] 4.8 g/dL 3.9 - 4.9 g/dL [facility] ALP [Catalytic activity/Vol] 50 U/L 38 - 113 U/L [facility] ALT [Catalytic activity/Vol] 9 U/L Low 10 - 54 U/L [facility] Anion gap [Moles/Vol] 12 mmol/L 9 - 18 mmol/L [facility] AST [Catalytic activity/Vol] 14 U/L 14 - 40 U/L [facility] Bilirubin [Mass/Vol] 0.8 mg/dL 0.2 - 1.3 mg/dL [facility] Calcium [Mass/Vol] 10.5 mg/dL High 8.5 - 10.2 mg/dL [facility] Chloride [Moles/Vol] 103 mmol/L 97 - 105 mmol/L [facility] CO2 [Moles/Vol] 24 mmol/L 22 - 30 mmol/L [facility] Creatinine [Mass/Vol] 1.33 mg/dL High 0.73 - 1.22 mg/dL [facility] Estimated Glomerular Filtration Rate 55 mL/min/1.73m Low >=60 mL/min/1.73m [facility] Glucose [Mass/Vol] 112 mg/dL High 74 - 99 mg/dL [facility] Potassium [Moles/Vol] 3.1 mmol/L Low 3.7 - 5.1 mmol/L [facility] Protein [Mass/Vol] 7.8 g/dL 6.3 - 8.0 g/dL [facility] Sodium [Moles/Vol] 139 mmol/L 136 - 144 mmol/L [facility] Urea nitrogen [Mass/Vol] 28 mg/dL High 9 - 24 mg/dL [facility] CBC W Auto Differential pane l (Bld)on 12-22-2022 Basophils (Bld) [#/Vol] <0.11 k/uL [facility] Basophils/100 WBC (Bld) 0.2 % [facility] Differential cell count method Nom (Bld) Auto [facility] Eosinophils (Bld) [#/Vol] 0.09 10*3/uL <0.46 k/uL [facility] Eosinophils/100 WBC (Bld) 1.0 % [facility] Erythrocyte distribution width (RBC) [Ratio] 14.7 % 11.5 - 15.0 % [facility] Hematocrit (Bld) [Volume fraction] 45.5 % 39.0 - 51.0 % [facility] Hemoglobin (Bld) [Mass/Vol] 15.2 g/dL 13.0 - 17.0 g/dL [facility] Immature granulocytes (Bld) [#/Vol] 0.10 10*3/uL High <0.10 k/uL [facility] Immature granulocytes/100 WBC (Bld) 1.1 % [facility] Lymphocytes (Bld) [#/Vol] 1.02 10*3/uL 1.00 - 4.00 k/uL [facility] Lymphocytes/100 WBC (Bld) 11.0 % [facility] MCH (RBC) [Entitic mass] 29.0 pg 26.0 - 34.0 pg [facility] MCHC (RBC) [Mass/Vol] 33.4 g/dL 30.5 - 36.0 g/dL [facility] MCV (RBC) [Entitic vol] 86.7 fL 80.0 - 100.0 fL [facility] Monocytes (Bld) [#/Vol] 0.74 10*3/uL <0.87 k/uL [facility] Monocytes/100 WBC (Bld) 8.0 % [facility] Neutrophils (Bld) [#/Vol] 7.31 10*3/uL 1.45 - 7.50 k/uL [facility] Neutrophils/100 WBC (Bld) 78.7 % [facility] Nucleated RBC (Bld) [#/Vol] <0.01 k/uL [facility] Nucleated RBC/100 WBC (Bld) [Ratio] 0.0 /100 WBC [facility] Platelet mean volume (Bld) [Entitic vol] 9.8 fL 9.0 - 12.7 fL [facility] Platelets (Bld) [#/Vol] 166 10*3/uL 150 - 400 k/uL [facility] RBC (Bld) [#/Vol] 5.25 10*6/uL 4.20 - 6.00 m/uL [facility] WBC (Bld) [#/Vol] 9.28 10*3/uL 3.70 - 11.00 k/uL [facility] MRI PROSTATE WO/W IVCONon [facility] Urinalysis - AUTOMATEDon Appearance (U) CLEAR [employer] Other Bilirubin Ql (U) Negative [employer] Other Color (U) YELLOW [employer] Other Glucose Ql (U) Negative [employer] Other Hemoglobin Ql (U) TRACE INTACT [employer] Other Ketones Ql (U) Negative [employer] Other Leukocyte esterase Test strip Ql (U) Negative [employer] Other Nitrite Ql (U) Negative [employer] Other pH (U) 5.5 [pH] [employer] Other Protein Ql (U) 100 [employer] Other Specific gravity (U) [Rel density] 1.025 [employer] Other Urobilinogen (U) [Mass/Vol] 0.2 mg/dL [employer] Other Urinalysis - AUTOMATED [employer] Other Urine Cultureon 10-09-2022 Bacteria identified Cx Nom (U) Reason for Exam Frequency of urination Urine Reason for Exam: Frequency of urination : Urine No Growth 2 Days PERFORMED BY: [place] [address] PATHOLOGIST [employer] MARIA LUZ HERNANDEZ M.D. [facility] Comment on above: Performed By: #### CUU #### [address] Bacteria identified Cx Nom (U) [employer] Other PTH INTACTon 10-14-2021 PTH, Intact 25 pg/mL Normal 15-65 [facility] Comment on above: Performed By: #### PTHINT #### [facility] [address] [address] [address] Brenda Kline VIT D 25-OH LABCORPon 2021 Vitamin D, 25-Hydroxy 36.7 ng/mL Normal 30.0-100.0 [facility] Comment on above: Result Comment: Vitamin D deficiency has been defined by the [place] [employer] and an Endocrine Society practice guideline as a level of serum 25-OH vitamin D less than 20 ng/mL (1,2). The Endocrine Society went on to further define vitamin D insufficiency as a level between 21 and 29 ng/mL (2). 1. IOM ([place] [employer]). 2010. Dietary reference intakes for calcium and D. [place]: The National Academies Press. 2. Daniel ALEMAN, Tiarra CUADRA, Dago PERRY, et al. Evaluation, treatment, and prevention of vitamin D deficiency: an Endocrine Society clinical practice guideline. JCEM. 2010; 96(7):1911-30. Performed By: #### V ITADLC ####[facility] [id number] [place], [place] [address]QlDr. Brenda Kline HEMOGRAM AND PLATELon 2021 Hematocrit (Bld) [Volume fraction] 50.0 % Normal 42.0-54.0 [facility] Comment on above: Performed By: #### HH #### [facility] [address] [address] [address] Brenda Kline Hemoglobin (Bld) [Mass/Vol] 16.3 g/dL Normal 14.0-18.0 [facility] Comment on above: Performed By: #### HH #### [facility] [address] [address] [address] Brenda Kline MCH (RBC) [Entitic mass] 29.1 pg Normal 25.9-34.0 [facility] Comment on above: Performed By: #### HH #### [facility] [address] [address] [address] Brenda Kline MCHC (RBC) [Mass/Vol] 32.6 g/dL Normal 29.9-35.2 [facility] Comment on above: Performed By: #### HH #### [facility] [address] [address] [address] Brenda Kline MCV (RBC) [Entitic vol] 89.3 fL Normal 80.0-94.0 [facility] Comment on above: Performed By: #### HH #### [facility] [address] [address] [address] Brenda Kline PLT 197 103/ul Normal 150-450 [facility] Comment on above: Performed By: #### HH #### [facility] [address] [address] [address] Brenda Kline RBC 5.60 106/ul Normal 4.70-6.10 [facility] Comment on above: Performed By: #### HH #### [facility] [address] [address] [address] Brenda Kline WBC 7.9 103/ul Normal 4.0-11.0 [facility] Comment on above: Performed By: #### HH #### [facility] [address] [address] [address] Brenda Kline MAGNESIUMon 10-13-2021 Magnesium [Mass/Vol] 2.1 mg/dL Normal 1.8-2.4 [facility] Comment on above: Performed By: #### RENAL, MG, URIC ####[facility] [id number] [address]Dr. Brenda Kline RENAL FUNCTION PANELon 10-13 Albumin [Mass/Vol] 4.1 g/dL Normal 3.4-5.0 [facility] Comment on above: Performed By: #### RENAL, MG, URIC #### [facility] [address] [place] [address] Dr. Brenda Kline Calcium [Mass/Vol] 9.6 mg/dL Normal 8.5-10.1 [facility] Comment on above: Performed By: #### RENAL, MG, URIC #### [facility] [address] [place] [address] Dr. Brenda Kline Chloride [Moles/Vol] 103 mmol/L Normal 98-107 [facility] Comment on above: Performed By: #### RENAL, MG, URIC #### [facility] [address] [address] [address] Brenda Kline CO2 [Moles/Vol] 27.2 mmol/L Normal 21.0-32.0 [facility] Comment on above: Performed By: #### RENAL, MG, URIC #### [facility] [address] [place] [address] Dr. Brenda Kline Creatinine [Mass/Vol] 1.68 mg/dL Critically high 0.70-1.30 [facility] Comment on above: Performed By: #### RENAL, MG, URIC #### [facility] [address] [place] [address] Dr. Brenda Kline EGFR-AF FILIPINO 49 mL/min/1.73m2 Critically low >=60 [facility] Comment on above: Performed By: #### RENAL, MG, URIC #### [facility] [address] [place] [address] Dr. Brenda Kline EGFR-NON AF FILIPINO 40 mL/min/1.73m2 Critically low >=60 [facility] Comment on above: Performed By: #### RENAL, MG, URIC #### [facility] [address] [place] [address] Dr. Brenda Kline Glucose [Mass/Vol] 125 mg/dL Critically high 74-106 [facility] Comment on above: Performed By: #### RENAL, MG, URIC #### [facility] [address] [place] [address] Dr. Brenda Kline Phosphate [Mass/Vol] 3.5 mg/dL Normal 2.6-4.7 [facility] Comment on above: Performed By: #### RENAL, MG, URIC #### [facility] [address] [place] [address] Dr. Brenda Kline Potassium [Moles/Vol] 4.1 mmol/L Normal 3.5-5.1 [facility] Comment on above: Performed By: #### RENAL, MG, URIC #### [facility] [address] [place] [address] Dr. Brenda Klnie Sodium [Moles/Vol] 139 mmol/L Normal 136-145 [facility] Comment on above: Performed By: #### RENAL, MG, URIC #### [facility] [address] [place] [address] Dr. Brenda Kline Urea nitrogen [Mass/Vol] 25.0 mg/dL Critically high 7.0-18.0 [facility] Comment on above: Performed By: #### RENAL, MG, URIC #### [facility] [address] [place] [address] Dr. Brenda Kline UA RANDOM W/MICROSCOPICon BACTERIA NONE SEEN Normal NONE SEEN [facility] Comment on above: Performed By: #### UAMIC #### [facility] [address] [place] [address] Dr. Brenda Kline Bilirubin Ql (U) Negative Normal NEGATIVE [facility] Comment on above: Performed By: #### UAMIC #### [facility] [address] [place] [address] Dr. Brenda Kline CAST SEEN Abnormal NONE SEEN [facility] Comment on above: Performed By: #### UAMIC #### [facility] [address] [place] [address] Dr. Brenda Kline Clarity (U) CLEAR Normal CLEAR [facility] Comment on above: Performed By: #### UAMIC #### [facility] [address] [place] [address] Dr. Brenda Kline Color (U) YELLOW Normal YELLOW [facility] Comment on above: Performed By: #### UAMIC #### [facility] [address] [place] [address] Dr. Brenda Kline Crystals LM Nom (Urine sed) NONE SEEN Normal NONE SEEN [facility] Comment on above: Performed By: #### UAMIC #### [facility] [address] [place] [address] Dr. Brenda Kline Epithelial cells LM Ql (Urine sed) RARE Normal NONE SEEN /RARE [facility] Comment on above: Performed By: #### UAMIC #### [facility] [address] [place] [address] Dr. Brenda Kline Glucose Ql (U) Negative Normal NEGATIVE [facility] Comment on above: Performed By: #### UAMIC #### [facility] [address] [place] [address] Dr. Brenda Kline Hemoglobin Ql (U) Negative Normal NEGATIVE [facility] Comment on above: Performed By: #### UAMIC #### [facility] [address] [place] [address] Dr. Brenda Kline HYALINE CAST RARE Normal [facility] Comment on above: Performed By: #### UAMIC #### [facility] [address] [place] [address] Dr. Brenda Kline Ketones Ql (U) Negative Normal NEGATIVE [facility] Comment on above: Performed By: #### UAMIC #### [facility] [address] [address] [address] Brenda Kline LEUKOCYTES Negative Normal NEGATIVE [facility] Comment on above: Performed By: #### UAMIC #### [facility] [address] [address] [address] Brenda Kline MUCOUS TRACE Abnormal NONE SEEN [facility] Comment on above: Performed By: #### UAMIC #### [facility] [address] [place] [address] Dr. Brenda Kline Nitrite Ql (U) Negative Normal NEGATIVE [facility] Comment on above: Performed By: #### UAMIC #### [facility] [address] [place] [address] Dr. Brenda Kline pH (U) 5.5 [pH] Normal 5-9 [facility] Comment on above: Performed By: #### UAMIC #### [facility] [address] [place] [address] Dr. Brenda Kline RBC 0-2 Normal 0-2 [facility] Comment on above: Performed By: #### UAMIC #### [facility] [address] [place] [address] Dr. Brenda Kline SPEC GRAVITY 1.025 Normal 1.005-<=1.025 [facility] Comment on above: Performed By: #### UAMIC #### [facility] [address] [place] [address] Dr. Brenda Kline UA PROTEIN Negative Normal NEGATIVE/ TRACE [facility] Comment on above: Performed By: #### UAMIC #### [facility] [address] [place] [address] Dr. Brenda Kline Urobilinogen Qn (U) 0.2 {Cayden'U}/dL Normal 0.2 - 1.0 [facility] Comment on above: Performed By: #### UAMIC #### [facility] [address] [address] [address] Brenda Kline WBC 0-2 Abnormal NONE SEEN [facility] Comment on above: Performed By: #### UAMIC #### [facility] [address] [place] [address] Dr. Brenda Kline URIC ACID SERUMon 10-13-2021 Urate [Mass/Vol] 7.2 mg/dL Normal 3.5-7.2 [facility] Comment on above: Performed By: #### RENAL, MG, URIC #### [facility] [address] [place] [address] Dr. Brenda Kline URINE T PROTEIN CREAT RATIOo n 10-13-2021 Protein (U) [Mass/Vol] 29.0 mg/dL Critically high <=12.0 [facility] Comment on above: Performed By: #### URTPCR #### [facility] [address] [place] [address] Dr. Brenda Kline UR PROT CREAT RAT 0.14 Normal [facility] Comment on above: Performed By: #### URTPCR #### [facility] [address] [place] [address] Dr. Brenda Kline URINE CREAT 202.37 mg/dL Normal 20.00-300.00 [facility] Comment on above: Performed By: #### URTPCR #### [facility] [address] [place] [address] Dr. Brenda Kline US FINE NEEDLE ASP EXPon US FINE NEEDLE ASP EXP Begin Addendum #1 COLLECTED DATE/TIME: 08/16/2021 07:32 EDT Final Diagnosis Report for [facility] [place], [place] (A-B) RIGHT GROIN MASS; FINE NEEDLE ASPIRATION: -RARE ATYPICAL CELLS PRESENT, SEE NOTE. NOTE: The findings are nonspecific. Changes suggestive of fat necrosis and granulomatous inflammation is seen. Clinical correlation is suggested. Intradepartmental consultation was obtained. 08/18/[address] Chanel. Verified with Dorothea that report was present in office. Original Report EXAMINATION: US FINE NEEDLE ASP EXP HISTORY: Groin mass COMPARISON: No relevant comparison available. TECHNIQUE: After obtaining informed consent, ultrasound-guided fine needle aspiration was performed in the usual sterile manner. FINDINGS: IMAGING: Ultrasound. BIOPSY NEEDLE: 25-gauge, 2 inch LOCATION: 2.6 x 2.1 x 1.9 cm vascular hypoechoic right groin mass SPECIMEN TYPE: 3 fine-needle aspirates LOCAL ANESTHETIC: 5 cc 1% buffered lidocaine COMPLICATIONS: None. LABORATORY: Prepared slide smears and washings for cell block evaluation. OTHER: Negative. PATHOLOGY: Pending. An addendum will be added when results are available. IMPRESSION: 1. Uneventful ultrasound guided fine needle aspiration (FNA). 2. Pathology results are pending. Normal [facility] CREATININEon 07-20-2021 Creatinine [Mass/Vol] 1.65 mg/dL Critically high 0.70-1.30 [facility] Comment on above: Performed By: #### CREA ####[facility] [id number] [address]Dr. Brenda Kline EGFR-AF FILIPINO 50 mL/min/1.73m2 Critically low >=60 [facility] Comment on above: Performed By: #### CREA ####[facility] [id number] [id number]. Brenda Kline EGFR-NON AF FILIPINO 41 mL/min/1.73m2 Critically low >=60 [facility] Comment on above: Performed By: #### CREA ####[facility] [id number]. Brenda Kline CT PELVIS W CONon 07-20-2021 CT PELVIS W CON EXAMINATION: CT PELVIS W CON HISTORY: Groin mass COMPARISON: Ultrasound right lower quadrant 07/09/2021 TECHNIQUE: Axial, Coronal, and Sagittal CT images obtained with IV contrast. Dose reduction techniques were achieved by using automated exposure control and/or adjustment of mA and/or kV according to patient size and/or use of iterative reconstruction technique. FINDINGS: BOWEL: Marked diverticulosis of the sigmoid colon without acute inflammatory changes. LYMPH NODES: No adenopathy. URINARY BLADDER: No visible focal wall thickening, lesion, or calculus. PELVIC ORGANS: No visible mass. Pelvic organs appropriate for patient age. ANTERIOR WALL: 2.5 cm rounded, well-circumscribed, enhancing mass within the right groin region anterior to the distal inguinal canal. BONES: No bone lesion or fracture. L5-S1 moderate degenerative disc disease. OTHER: Negative. IMPRESSION: 1. Enlarged 2.5 cm abnormal lymph node versus mass within right groin. Ultrasound-guided tissue sampling is recommended. Electronically authenticated by: MIA PERSON Date: 2021-07-20 16:34 Normal [facility] US SINGLE QUAD RT LOWERon US SINGLE QUAD RT LOWER EXAM: US SINGLE QUAD RT LOWER HISTORY: Pelvic mass COMPARISON: None. TECHNIQUE: Percutaneous ultrasound. FINDINGS: Corresponding to the patient's palpable lump within the right groin is a 2.4 x 2.2 x 2.1 cm round nearly anechoic structure with some posterior acoustic enhancement suggestive of fluid. However, on color Doppler there appears to be blood flow/vessels within the lesion. No appreciable connection to a vessel and no swirling of blood in the structure to suggest aneurysm or pseudoaneurysm. IMPRESSION: 1. Nonspecific 2.4 cm cystic structure versus markedly hypoechoic mass of uncertain etiology. This could represent an old hematoma with a vessel still coursing through it. Consider CT imaging with IV contrast for additional evaluation. Electronically authenticated by: MIA PERSON Date: 2021-07-09 17:23 Normal [facility] COVID Quick Testingon 2020 Result Negative [employer] Other Vital Signs Date Time Vital Sign Value Performing Clinician Facility 01-23-2024 12:46-0500 Diastolic blood pressure 79 mm[Hg] [employer] [facility] 01-23-2024 12:46-0500 Heart rate 85 /min Meño Bob [facility] 01-23-2024 12:46-0500 Respiratory rate 16 /min Meño Bob [facility] 01-23-2024 12:46-0500 SaO2% (BldA) [Mass fraction] 95 % Meño TIMPIK [facility] 01-23-2024 12:46-0500 Systolic blood pressure 120 mm[Hg] Meño Rojas [facility] 01-10-2024 12:49-0500 Blood Pressure Location [facility]utierrez [facility] 01-10-2024 12:49-0500 Body temperature 98.6 [degF] Yosef [facility] 01-10-2024 12:49-0500 Diastolic blood pressure 83 mm[Hg] Yosef [facility] 01-10-2024 12:49-0500 Heart rate 89 /min Yosef [facility] 01-10-2024 12:49-0500 Respiratory rate 17 /min Yosef [facility] 01-10-2024 12:49-0500 Systolic blood pressure 126 mm[Hg] Yosef [facility] 01-08-2024 08:56-0500 Blood Pressure Location Yosef GRIM[facility] 01-08-2024 08:56-0500 Body temperature 98.6 [degF] Yosef GRIMES [facility] 01-08-2024 08:56-0500 Diastolic blood pressure 83 mm[Hg] [facility]f [facility] [facility] 01-08-2024 08:56-0500 Heart rate 70 /min Yosef GRIMES [facility] 01-08-2024 08:56-0500 Respiratory rate 18 /min Yosefgutierrez GRIMES [facility] 01-08-2024 08:56-0500 Systolic blood pressure 137 mm[Hg] Yosef GRIMES [facility] 11-24-2023 11:48-0400 Blood Pressure Location Yosefgutierrez GRIMES [facility] 11-24-2023 11:48-0400 Body temperature 98.6 [degF] Yosefgutierrez GRIMES [facility] 11-24-2023 11:48-0400 Diastolic blood pressure 86 mm[Hg] Yosef GRIMES [facility] 11-24-2023 11:48-0400 Heart rate 68 /min Yosef GRIMES [facility] 11-24-2023 11:48-0400 Respiratory rate 16 /min Yosefgutierrez GRIMES [facility] 11-24-2023 11:48-0400 Systolic blood pressure 134 mm[Hg] Yosef GRIMES [facility] 11-16-2023 14:59-0400 Body height 193 cm Nicolas Hwang MD Work Phone: [facility] 11-16-2023 14:59-0400 Body mass index (BMI) [Ratio] 31.81 kg/m2 Nicolas Hwang MD Work Phone: [facility] 11-16-2023 14:59-0400 Body temperature 96.69 [degF] Nicolas Hwang MD Work Phone: [facility] 11-16-2023 14:59-0400 Body weight 118.5 kg Nicolas Hwang MD Work Phone: [facility] 11-16-2023 14:59-0400 Diastolic blood pressure 73 mm[Hg] Nicolas Hwang MD Work Phone: [facility] 11-16-2023 14:59-0400 Heart rate 93 /min Nicolas Hwang MD Work Phone: [facility] 11-16-2023 14:59-0400 Respiratory rate 18 /min Nicolas Hwang MD Work Phone: [facility] 11-16-2023 14:59-0400 SaO2% (BldA) [Mass fraction] 94 % Nicolas Hwang MD Work Phone: [facility] 11-16-2023 14:59-0400 Systolic blood pressure 124 mm[Hg] Nicolas Hwang MD Work Phone: [facility] 11-16-2023 14:13-0400 Body mass index (BMI) [Ratio] 31.84 kg/m2 YOAN Kumari MD Work Phone: [facility] 11-16-2023 14:13-0400 Body temperature 96.69 [degF] YOAN Kumari MD Work Phone: [facility] 11-16-2023 14:13-0400 Body weight 118.6 kg YOAN Kumari MD Work Phone: [facility] 11-16-2023 14:13-0400 Diastolic blood pressure 73 mm[Hg] YOAN Kumari MD Work Phone: [facility] 11-16-2023 14:13-0400 Heart rate 93 /min YOAN Kumari MD Work Phone: [facility] 11-16-2023 14:13-0400 Respiratory rate 18 /min YOAN Kumari MD Work Phone: [facility] 11-16-2023 14:13-0400 SaO2% (BldA) [Mass fraction] 94 % YOAN Kumari MD Work Phone: [facility] 11-16-2023 14:13-0400 Systolic blood pressure 124 mm[Hg] YOAN Kumari MD Work Phone: [facility] 05-22-2023 11:20-0400 Blood Pressure Location Yosef GRIMES [facility] 05-22-2023 11:20-0400 Body temperature 98.42 [degF] Yosef GRIMES [facility] 05-22-2023 11:20-0400 Diastolic blood pressure 85 mm[Hg] Yosef GRIMES [facility] 05-22-2023 11:20-0400 Heart rate 81 /min Yosef GRIMES [facility] 05-22-2023 11:20-0400 Respiratory rate 16 /min Yosef GRIMES [facility] 05-22-2023 11:20-0400 Systolic blood pressure 118 mm[Hg] Yosef GRIMES [facility] 05-18-2023 13:16-0400 Body temperature 97 [degF] Elio Payne APRN.TOY ASSEMBLER Work Phone: [facility] 05-18-2023 13:16-0400 Body weight 115.8 kg Elio Payne APRN.TOY ASSEMBLER Work Phone: [facility] 05-18-2023 13:16-0400 Diastolic blood pressure 74 mm[Hg] Elio Payne APRN.TOY ASSEMBLER Work Phone: [facility] 05-18-2023 13:16-0400 Heart rate 84 /min Elio Payne APRN.TOY ASSEMBLER Work Phone: [facility] 05-18-2023 13:16-0400 Respiratory rate 18 /min Elio Payne APRN.TOY ASSEMBLER Work Phone: [facility] 05-18-2023 13:16-0400 SaO2% (BldA) [Mass fraction] 94 % Elio Payne INSTALLER HELPER.TOY ASSEMBLER Work Phone: [facility] 05-18-2023 13:16-0400 Systolic blood pressure 144 mm[Hg] Elio Payne APRN.TOY ASSEMBLER Work Phone: [facility] 01-16-2023 12:20-0500 Body temperature 97.39 [degF] YOAN Kumari MD Work Phone: [facility] 01-16-2023 12:20-0500 Body weight 109.32 kg YOAN Kumari MD Work Phone: [facility] 01-16-2023 12:20-0500 Diastolic blood pressure 74 mm[Hg] YOAN Kumari MD Work Phone: [facility] 01-16-2023 12:20-0500 Heart rate 66 /min YOAN Kumari MD Work Phone: [facility] 01-16-2023 12:20-0500 Respiratory rate 18 /min YOAN Kumari MD Work Phone: [facility] 01-16-2023 12:20-0500 SaO2% (BldA) [Mass fraction] 96 % YOAN Kumari MD Work Phone: [facility] 01-16-2023 12:20-0500 Systolic blood pressure 114 mm[Hg] YOAN Kumari MD Work Phone: [facility] 01-05-2023 12:45-0500 Body height 193 cm Nicolas Hwang MD Work Phone: [facility] 01-05-2023 12:45-0500 Body temperature 97 [degF] Nioclas Hwang MD Work Phone: [facility] 01-05-2023 12:45-0500 Body weight 109.77 kg Nicolas Hwang MD Work Phone: [facility] 01-05-2023 12:45-0500 Diastolic blood pressure 70 mm[Hg] Nicolas Hwang MD Work Phone: [facility] 01-05-2023 12:45-0500 Heart rate 60 /min Nicolas Hwang MD Work Phone: [facility] 01-05-2023 12:45-0500 Respiratory rate 16 /min Nicolas Hwang MD Work Phone: [facility] 01-05-2023 12:45-0500 SaO2% (BldA) [Mass fraction] 94 % Nicolas Hwang MD Work Phone: [facility] 01-05-2023 12:45-0500 Systolic blood pressure 124 mm[Hg] Nicolas Hwang MD Work Phone: [facility] 01-02-2023 12:22-0500 Body temperature 97.59 [degF] YOAN Kumari MD Work Phone: [facility] 01-02-2023 12:22-0500 Body weight 110.13 kg YOAN Kumari MD Work Phone: [facility] 01-02-2023 12:22-0500 Diastolic blood pressure 75 mm[Hg] YOAN Kumari MD Work Phone: [facility] 01-02-2023 12:22-0500 Heart rate 59 /min YOAN Kumari MD Work Phone: [facility] 01-02-2023 12:22-0500 Respiratory rate 16 /min YOAN Kumari MD Work Phone: [facility] 01-02-2023 12:22-0500 SaO2% (BldA) [Mass fraction] 96 % YOAN Kumari MD Work Phone: [facility] 01-02-2023 12:22-0500 Systolic blood pressure 112 mm[Hg] YOAN Kumari MD Work Phone: [facility] 12-26-2022 12:09-0500 Body temperature 96.91 [degF] YOAN Kumari MD Work Phone: [facility] 12-26-2022 12:09-0500 Body weight 111.04 kg YOAN Kumari MD Work Phone: [facility] 12-26-2022 12:09-0500 Diastolic blood pressure 75 mm[Hg] YOAN Kumari MD Work Phone: [facility] 12-26-2022 12:09-0500 Heart rate 66 /min YOAN Kumari MD Work Phone: [facility] 12-26-2022 12:09-0500 Respiratory rate 16 /min YOAN Kumari MD Work Phone: [facility] 12-26-2022 12:09-0500 SaO2% (BldA) [Mass fraction] 95 % YOAN Kumari MD Work Phone: [facility] 12-26-2022 12:09-0500 Systolic blood pressure 116 mm[Hg] YOAN Kumari MD Work Phone: [facility] 12-19-2022 12:17-0500 Body temperature 97 [degF] YOAN Kumari MD Work Phone: [facility] 12-19-2022 12:17-0500 Body weight 111.04 kg YOAN Kumari MD Work Phone: [facility] 12-19-2022 12:17-0500 Diastolic blood pressure 68 mm[Hg] YOAN Kumari MD Work Phone: [facility] 12-19-2022 12:17-0500 Heart rate 81 /min YOAN Kumari MD Work Phone: [facility] 12-19-2022 12:17-0500 Respiratory rate 16 /min YOAN Kumari MD Work Phone: [facility] 12-19-2022 12:17-0500 SaO2% (BldA) [Mass fraction] 99 % YOAN Kumari MD Work Phone: [facility] 12-19-2022 12:17-0500 Systolic blood pressure 115 mm[Hg] YOAN Kumari MD Work Phone: [facility] 12-14-2022 10:57-0500 Body temperature 97 [degF] YOAN Kumari MD Work Phone: [facility] 12-14-2022 10:57-0500 Body weight 109.77 kg YOAN Kumari MD Work Phone: [facility] 12-14-2022 10:57-0500 Diastolic blood pressure 76 mm[Hg] YOAN Kumari MD Work Phone: [facility] 12-14-2022 10:57-0500 Heart rate 59 /min YOAN Kumari MD Work Phone: [facility] 12-14-2022 10:57-0500 Respiratory rate 16 /min YOAN Kumari MD Work Phone: [facility] 12-14-2022 10:57-0500 SaO2% (BldA) [Mass fraction] 96 % YOAN Kumari MD Work Phone: [facility] 12-14-2022 10:57-0500 Systolic blood pressure 125 mm[Hg] YOAN Kumari MD Work Phone: [facility] 12-02-2022 12:15-0400 Blood Pressure Location Yosef GRIMES [facility] 12-02-2022 12:15-0400 Diastolic blood pressure 74 mm[Hg] Yosef GRIMES [facility] 12-02-2022 12:15-0400 Heart rate 68 /min Yosef GRIMES [facility] 12-02-2022 12:15-0400 Systolic blood pressure 129 mm[Hg] Yosef GRIMES [facility] 11-18-2022 11:18-0400 Blood Pressure Location Yosef GRIMES [facility] 11-18-2022 11:18-0400 Diastolic blood pressure 70 mm[Hg] Yosefgutierrez GRIMES [facility] 11-18-2022 11:18-0400 Heart rate 68 /min Yosefgutierrez GRIMES [facility] 11-18-2022 11:18-0400 Respiratory rate 16 /min Yosefgutierrez GRIMES [facility] 11-18-2022 11:18-0400 Systolic blood pressure 128 mm[Hg] Yosef GRIMES [facility] 11-15-2022 08:47-0400 Body temperature 97.59 [degF] YOAN Kumari MD Work Phone: [facility] 11-15-2022 08:47-0400 Body weight 112.49 kg YOAN Kumari MD Work Phone: [facility] 11-15-2022 08:47-0400 Diastolic blood pressure 78 mm[Hg] YOAN Kumari MD Work Phone: [facility] 11-15-2022 08:47-0400 Heart rate 57 /min YOAN Kumari MD Work Phone: [facility] 11-15-2022 08:47-0400 Respiratory rate 20 /min YOAN Kumari MD Work Phone: [facility] 11-15-2022 08:47-0400 SaO2% (BldA) [Mass fraction] 96 % YOAN Kumari MD Work Phone: [facility] 11-15-2022 08:47-0400 Systolic blood pressure 127 mm[Hg] YOAN Kumari MD Work Phone: [facility] 10-09-2022 10:45-0400 Body height 193.04 cm Angelina Holder Other [employer] Other 10-09-2022 10:45-0400 Body mass index (BMI) [Ratio] 30.59 kg/m2 Angelina Holder Other [employer] Other 10-09-2022 10:45-0400 Body temperature 98.3 [degF] Angelina Holder Other [employer] Other 10-09-2022 10:45-0400 Body weight 113.99 kg Angelina Holder Other [employer] Other 10-09-2022 10:45-0400 Diastolic blood pressure 68 mm[Hg] Angelina Holder Other [employer] Other 10-09-2022 10:45-0400 Respiratory rate 16 /min Angelina Holder Other [employer] Other 10-09-2022 10:45-0400 SaO2% (BldA) [Mass fraction] 96 % Angelina Holder Other [employer] Other 10-09-2022 10:45-0400 Systolic blood pressure 110 mm[Hg] Angelina Curranmond Other [employer] Other 10-03-2022 13:53-0400 Blood Pressure Location Yosef GRIMES [facility] 10-03-2022 13:53-0400 Diastolic blood pressure 70 mm[Hg] Yosef GRIMES [facility] 10-03-2022 13:53-0400 Heart rate 80 /min Yosef GRIMES [facility] 10-03-2022 13:53-0400 Respiratory rate 16 /min Yosef GRIMES [facility] 10-03-2022 13:53-0400 Systolic blood pressure 130 mm[Hg] Yosef GRIMES [facility] 06-02-2022 14:00-0400 Body height 193 cm Elio Payne APRN.TOY ASSEMBLER Work Phone: [facility] 06-02-2022 14:00-0400 Body temperature 97.81 [degF] Elio Payne APRN.TOY ASSEMBLER Work Phone: [facility] 06-02-2022 14:00-0400 Body weight 118.03 kg Elio Payne APRN.TOY ASSEMBLER Work Phone: [facility] 06-02-2022 14:00-0400 Diastolic blood pressure 63 mm[Hg] Elio Payne APRN.TOY ASSEMBLER Work Phone: [facility] 06-02-2022 14:00-0400 Heart rate 77 /min Elio Payne APRN.TOY ASSEMBLER Work Phone: [facility] 06-02-2022 14:00-0400 Respiratory rate 18 /min Elio Payne APRN.TOY ASSEMBLER Work Phone: [facility] 06-02-2022 14:00-0400 SaO2% (BldA) [Mass fraction] 93 % Elio Payne APRN.TOY ASSEMBLER Work Phone: [facility] 06-02-2022 14:00-0400 Systolic blood pressure 118 mm[Hg] Elio Payne APRN.TOY ASSEMBLER Work Phone: [facility] 11-02-2021 12:50-0400 Body height 193 cm Nicolas Hwang MD Work Phone: [facility] 11-02-2021 12:50-0400 Body temperature 97.7 [degF] Nicolas Hwang MD Work Phone: [facility] 11-02-2021 12:50-0400 Body weight 119.39 kg Nicolas Hwang MD Work Phone: [facility] 11-02-2021 12:50-0400 Diastolic blood pressure 77 mm[Hg] Nicolas Hwang MD Work Phone: [facility] 11-02-2021 12:50-0400 Heart rate 72 /min Nicolas Hwang MD Work Phone: [facility] 11-02-2021 12:50-0400 Respiratory rate 18 /min Nicolas Hwang MD Work Phone: [facility] 11-02-2021 12:50-0400 SaO2% (BldA) [Mass fraction] 94 % Nicolas Hwang MD Work Phone: [facility] 11-02-2021 12:50-0400 Systolic blood pressure 140 mm[Hg] Nicolas Hwang MD Work Phone: [facility] 09-27-2021 10:00-0400 Blood Pressure Location Yosef GRIMES [facility] 09-27-2021 10:00-0400 Diastolic blood pressure 79 mm[Hg] Yosef GRIMES [facility] 09-27-2021 10:00-0400 Heart rate 67 /min Yosef GRIMES [facility] 09-27-2021 10:00-0400 Respiratory rate 16 /min Yosef GRIMES [facility] 09-27-2021 10:00-0400 Systolic blood pressure 114 mm[Hg] Yosef GRIMES [facility] 11-13-2020 13:45-0400 Body height 193.04 cm Azucena Ginty Other [employer] Other 11-13-2020 13:45-0400 Body mass index (BMI) [Ratio] 32.25 kg/m2 Azucena Ginty Other [employer] Other 11-13-2020 13:45-0400 Body temperature 96.4 [degF] Azucena Ginty Other [employer] Other 11-13-2020 13:45-0400 Body weight 120.2 kg Azucena Ginty Other [employer] Other 11-13-2020 13:45-0400 SaO2% (BldA) [Mass fraction] 99 % Azucena Ginty Other [employer] Other Encounters Encounter Date Encounter Type Care Provider Facility Start: 02-22-2024 ambulatory Yosef GRIMES Facili ty:[id number] Start: 01-30-2024 End: 01-30-2024 ambulatory Meño Rojas Facility:[facility] Start: 01-30-2024 End: 01-30-2024 Patient encounter procedure Meñooksana Rojas [facility] Start: 01-26-2024 ambulatory Yosef GRIMES Facili ty:[facility] Start: 01-23-2024 End: 01-23-2024 ambulatory Yosef GRIMES Facility:[facility] Start: 01-23-2024 End: 01-23-2024 Patient encounter procedure Meño Bob [facility] Start: 01-19-2024 End: 01-19-2024 ambulatory YOSEF GRIMES Facility:[facility] Start: 01-19-2024 End: 01-19-2024 Subsequent hospital visit by physician Arrival Time Radiology Work Phone: Radiology Pet [facility] Start: 01-10-2024 End: 01-10-2024 ambulatory Yosef GRIMES Facility:[facility] Start: 01-10-2024 End: 01-10-2024 Patient encounter procedure [facility] Start: 01-08-2024 End: 01-08-2024 ambulatory Yosef GRIMES Facility:[facility] Start: 01-08-2024 End: 01-08-2024 Lab Drop off Yosefgutierrez GRIMES [facility] Start: 01-08-2024 End: 01-08-2024 ambulatory Yosefgutierrez GRIMES Facility:[facility] Start: 01-08-2024 End: 01-08-2024 Patient encounter procedure Yosef GRIMES [facility] Start: 01-01-2024 End: 01-01-2024 Lab Drop off Yosef GRIMES [facility] Start: 01-01-2024 End: 01-01-2024 ambulatory Yosef GRIMES Facility:[facility] Start: 01-01-2024 End: 01-01-2024 Patient encounter procedure [facility] Start: 12-29-2023 End: 01-01-2024 Telephone encounter David Kumari MD Work Phone: Radiation Oncology Comment on above: Hematuria Start: 11-24-2023 End: 11-24-2023 ambulatory Yosef Alivia GRIMES Facility:[facility] Start: 11-24-2023 End: 11-24-2023 Patient encounter procedure Yosef GRIMES [facility] Start: 11-16-2023 End: 11-16-2023 ambulatory Nicolas Hwang MD Work Phone: Hematology/Oncology Comment on above: Prostate cancer (HCC ) (Primary Dx); Monoclonal gammopathy Start: 11-16-2023 End: 11-16-2023 Patient encounter procedure Nicolas Hwang MD Work Phone: Hematology/Oncology Comment on above: Malignant neoplasm o f prostate (HCC) (Primary Dx) Start: 11-09-2023 End: 11-09-2023 ambulatory SHAHRIAR STEPHENSON Facility:[facility] Start: 10-23-2023 End: 10-23-2023 ambulatory BATTERY TESTER FIELD Shilpa L Parvez Facility[facility] Start: 09-27-2023 End: 09-27-2023 ambulatory BATTERY TESTER FIELD [facility]ilpa L [facility] Start: 05-22-2023 End: 05-22-2023 [facility]ulatory [facility] Start: 05-22-2023 End: 05-22-2023 Patient encounter procedure Yosef GRIMES [facility] Start: 05-18-2023 End: 05-18-2023 Patient encounter procedure Elio Payne APRN.TOY ASSEMBLER Work Phone: [facility] Comment on above: Malignant neoplasm o f prostate (HCC) (Primary Dx) Start: 05-18-2023 End: 05-18-2023 ambulatory Elio Payne APRN.TOY ASSEMBLER Work Phone: Hematology/Oncology Comment on above: Prostate cancer (HCC ) (Primary Dx); Monoclonal gammopathy; Chronic renal insufficiency, stage 3 (moderate) (HCC); Essential hypertension Start: 05-10-2023 Telephone encounter Elio becerril APRN.TOY ASSEMBLER Work Phone: Hematology/Oncology Comment on above: Lab Orders Start: 05-08-2023 End: 05-08-2023 ambulatory SHAHRIAR STEPHENSON Facility:[facility] Start: 02-02-2023 End: 02-02-2023 ambulatory David KUMARI Facility:[facility] Start: 02-01-2023 End: 02-01-2023 ambulatory David KUMARI Facility:[facility] Start: 01-31-2023 End: 01-31-2023 ambulatory David KUMARI Facility:[facility] Start: 01-27-2023 End: 01-27-2023 ambulatory David KUMARI Facility:[facility] Start: 01-26-2023 End: 01-26-2023 ambulatory David KUMARI Facility:[facility] Start: 01-26-2023 End: 01-26-2023 Patient encounter procedure David Kumari MD Work Phone: Radiation Oncology Comment on above: Malignant neoplasm o f prostate (HCC) (Primary Dx) Start: 01-25-2023 End: 01-25-2023 ambulatory David KUMARI Facility:[facility] Start: 01-24-2023 End: 01-24-2023 ambulatory David KUMARI Facility:[facility] Start: 01-23-2023 End: 01-23-2023 ambulatory David KUMARI Facility:[facility] Start: 01-17-2023 End: 01-17-2023 Patient encounter procedure David Kumari MD Work Phone: Radiation Oncology Comment on above: Malignant neoplasm o f prostate (HCC) (Primary Dx) Start: 01-16-2023 End: 01-16-2023 Refill Rose Mckeon [facility] Work Phone: Hematology/Oncology Comment on above: Refill Request Secondary hyperparat hyroidism (HCC) (Primary Dx); Platelets decreased (HCC) Start: 01-11-2023 Patient encounter procedure David Kumari MD Work Phone: [facility] Start: 01-11-2023 Radiation Oncology Note David Kumari MD Work Phone: Radiation Oncology Comment on above: Treatment Planning Start: 01-11-2023 End: 01-11-2023 Subsequent hospital visit by physician David Kumari MD Work Phone: Radiology [facility] Start: 01-09-2023 Telephone encounter Nicolas schneider MD Work Phone: Radiation Oncology Comment on above: Medication Problem Start: 01-06-2023 Telephone encounter Jessica Trammell RN Work Phone: Hematology/Oncology Comment on above: Results Start: 01-05-2023 End: 01-05-2023 ambulatory Nicolas Hwang MD Work Phone: Hematology/Oncology Comment on above: Prostate cancer (HCC ) (Primary Dx); Monoclonal gammopathy Start: 01-05-2023 End: 01-05-2023 Patient encounter procedure Nicolas Hwang MD Work Phone: [employer] Start: 01-02-2023 End: 01-02-2023 Patient encounter procedure David Kumari MD Work Phone: Radiation Oncology Comment on above: Malignant neoplasm o f prostate (HCC) (Primary Dx) Start: 12-26-2022 End: 12-26-2022 Patient encounter procedure David Kumari MD Work Phone: Radiation Oncology Comment on above: Malignant neoplasm o f prostate (HCC) (Primary Dx) Start: 12-22-2022 End: 12-22-2022 Patient encounter procedure Lab[facility] Work Phone: Radiation Oncology Comment on above: Malignant neoplasm o f prostate (HCC) Start: 12-19-2022 Telephone encounter [facility]: Appointment Confirma tion Start: 12-19-2022 End: 12-19-2022 Patient encounter procedure David Kumari MD Work Phone: Radiation Oncology Comment on above: Skin lesion of right arm (Primary Dx); History of squamous cell carcinoma Start: 12-15-2022 Telephone encounter Nancy black RN Work Phone: Hematology/Oncology Comment on above: Care Coordination (O ral Anti-Cancer Agent Follow Up) Start: 12-14-2022 End: 12-14-2022 Patient encounter procedure David Kumari MD Work Phone: Radiation Oncology Comment on above: Malignant neoplasm o f prostate (HCC) (Primary Dx) Start: 12-08-2022 End: 12-08-2022 Patient encounter procedure David Kumari MD Work Phone: [place] Comment on above: Malignant neoplasm o f prostate (HCC) (Primary Dx) Start: 12-08-2022 Radiation Oncology Note David Kumari MD Work Phone: Radiation Oncology Comment on above: Treatment Planning Start: 12-08-2022 End: 12-08-2022 Subsequent hospital visit by physician David Kumari MD Work Phone: Radiology Pet CT Start: 12-02-2022 End: 12-02-2022 Patient encounter procedure Yosef GRIMES [facility] Start: 12-01-2022 ambulatory Yuko Graves OPERATIONS MANAGER/COORDINATOR Radia tion Oncology Comment on above: Patient Education Start: 11-28-2022 End: 11-28-2022 Subsequent hospital visit by physician Mri 6 Radio Main Q (I-Stat/1.5t/3t) Work Phone: MRI Q Comment on above: Malignant neoplasm o f prostate (HCC) [C61] Start: 11-22-2022 Patient encounter procedure [facility]cf Prov ider [facility] Department Start: 11-18-2022 End: 11-18-2022 Patient encounter procedure Yosef GRIMES [facility] Start: 11-15-2022 End: 11-15-2022 Patient encounter procedure David Kumari MD Work Phone: Radiation Oncology Comment on above: Malignant neoplasm o f prostate (HCC) (Primary Dx) Start: 11-01-2022 End: 11-01-2022 Lab Drop off Yosef GRIMES [facility] Start: 10-28-2022 End: 10-28-2022 Subsequent hospital visit by physician Arrival Time Radiology Work Phone: Radiology Pet CT Comment on above: Rising PSA following treatment for malignant neoplasm of prostate [R97.21] Start: 10-09-2022 Office outpatient vi sit 15 minutes Angelina Holder [facility] Start: 10-09-2022 End: 10-09-2022 ambulatory Angelina Holder [facility] Other Start: 10-09-2022 End: 10-09-2022 Departed Referred SSIS DEVELOPER-C Angelina Holder Work Phone: [facility] [place] Work Phone: Start: 10-06-2022 Telephone encounter Nicolas schneider MD Work Phone: Cancer [facility] Comment on above: Nm Pet Request Start: 10-03-2022 End: 10-03-2022 Patient encounter procedure Yosef GRIMES [facility] Start: 06-02-2022 End: 06-02-2022 ambulatory Elio Payne APRN.TOY ASSEMBLER Work Phone: Hematology/Oncology Comment on above: Monoclonal gammopath y (Primary Dx); Prostate cancer (HCC); Essential hypertension; Chronic renal insufficiency, stage 3 (moderate) (HCC) Start: 06-02-2022 End: 06-02-2022 Patient encounter procedure Elio Payne APRN.TOY ASSEMBLER Work Phone: JOSE Start: 11-08-2021 Telephone encounter Shiam Hutchison Hematology/Oncology Comment on above: Results Start: 11-02-2021 End: 11-02-2021 ambulatory Nicolas Hwang MD Work Phone: Hematology/Oncology Comment on above: Monoclonal gammopath y (Primary Dx) Start: 11-02-2021 End: 11-02-2021 Patient encounter procedure Nicolas Hwang MD Work Phone: JOSE Start: 10-21-2021 Telephone encounter Nicolas schneider MD Work Phone: Hematology/Oncology Comment on above: Lab Orders Start: 10-13-2021 End: 10-14-2021 ambulatory KAREN GABRIELA Facility:H1 Start: 09-27-2021 End: 09-27-2021 Patient encounter procedure Yosef GRIMES [facility] Start: 09-14-2021 End: 09-15-[address] YOSEF GRIMES Facility:[facility]1 Start: 08-16-2021 End: 08-16-[address] GURMEET CHANEL Facility:[facility]1 Start: 08-02-2021 Telephone encounter Nicolas [facility]neider [facility] Comment on above: Call Back 48 Hours Start: 07-20-2021 End: 07-21-[address] GURMEET CHANEL Facility:[facility]1 Start: 07-09-2021 End: 07-10-[address] GURMEET CHANEL Facility:[facility]1 Start: 05-14-2021 Telephone encounter Pretty Aparicio RN Hematology/Oncology Comment on above: Results Start: 05-05-2021 Telephone encounter Nicolas schneider MD Work Phone: Hematology/Oncology Comment on above: Lab Orders Start: 11-13-2020 Office outpatient vi sit 15 minutes Azucena Ginty [facility] Start: 10-18-2019 End: 10-18-2019 Patient encounter procedure External Provider [facility] Start: 10-18-2019 Results Only External Provider Exter nal-NonCCF Procedures Date Procedure Procedure Detail Performing Clinician Start: 01-10-2024 Cystoscopy Yosef SAVAGE Start: 12-22-2022 Blood count complete auto&auto difrntl wbc G Damien Engeler MD Work Phone: Start: 11-28-2022 Mri pelvis w/o & w/c ontrast material G Damien Kumari MD Work Phone: Start: 11-10-2022 Transurethral resect ion of bladder neoplasm Yosef CORNELIO Start: 11-01-2022 Cystoscopy Yosef COLIN SAVAGE Start: 09-14-[address] GURMEET DANIELS Comment on above: Performed By: #### P SAD #### [facility] [address] [place] [address] Dr. Brenda Kline Start: 05-10-2021 Adult depression scr eening assessment Pretty Aparicio RN Start: 10-29-2020 Adult depression scr eening assessment Nicolas Hwang MD Work Phone: Start: 10-18-2019 EXTERNAL LAB External P rovider Start: 01-07-2016 Radical retropubic prostatectomy with bilateral pelvic lymphadenectomy Yosefgutierrez GRIMES Start: 11-03-2015 Transrectal biopsy o f prostate using ultrasound guidance Yosefgutierrez GRIMES Start: 02-06-2015 Colonoscopy Yosef SAVAGE Start: 02-07-2012 End: 02-07-2012 Colonoscopy Nicolas Hwang MD Work Phone: Start: 02-07-2012 Colonoscopy Yosef WHEATManjinder Plan of Treatment Date Care Activity Detail Author Start: 11-15-2026 Diabetes Screening Diabetes Screenin [facility] Start: 05-17-2026 Diabetes Screening Diabetes Screenin [facility] Start: 01-19-2026 Diabetes Screening Diabetes Screenin [facility] Start: 01-05-2026 Diabetes Screening Diabetes Screenin [facility] Start: 12-08-2025 Diabetes Screening Diabetes Screenin [facility] Start: 06-02-2025 DIABETES SCREEN DIABETES SCREEN [facility] Start: 06-02-2025 Diabetes Screening Diabetes Screenin g [facility] Start: 11-02-2024 DIABETES SCREEN DIABETES SCREEN [facility] Start: 10-24-2024 ambulatory Ambulatory Facility:Michele Aranda Start: 05-20-2024 ambulatory Ambulatory Facility:Shabnam Dykes Manoj Start: 05-16-2024 End: 08-15-2024 Prostate specific Ag [Mass/volume] in Serum or Plasma PROSTATE-SPECIFIC ANTIGEN DIAGNOSTIC Lab Routine Malignant neoplasm of prostate (HCC) Expected: 05/16/2024 (Approximate), Expires: 08/15/2024 [facility] Work Phone: Comment on above: Expected: 05/16/2024 (Approximate), Expires: 08/15/2024 Start: 05-14-2024 End: 05-14-2024 Follow-up encounter 05/14/2024 2:00 PM EDT Visit (SP) Office Hematology/Oncology [address] [place] [address] Nicolas Hwang MD [address] [place] [address] [place] [address] 6 month follow up Hematology/Oncology Comment on above: 6 month follow up Start: 05-14-2024 End: 05-14-2024 Patient encounter procedure 05/14/2024 1:00 PM EDT Office Visit Radiation Oncology [address] [facility] [place] [address] David Kumari MD [address] [facility] [place] [address] 6 month follow up Radiation Oncology Comment on above: 6 month follow up Start: 05-10-2024 DIABETES SCREEN DIABETES SCREEN [facility] Start: 05-07-2024 End: 05-07-2024 Patient encounter procedure 05/07/2024 1:00 PM EDT Office Visit [facility] [address] [place] [address] lab [facility] Comment on above: lab Start: 02-28-2024 ambulatory Ambulatory Facility:Shabnam Garcia Start: 11-17-2023 End: 02-16-2024 Prostate specific Ag [Mass/volume] in Serum or Plasma PROSTATE-SPECIFIC ANTIGEN DIAGNOSTIC Lab Routine Malignant neoplasm of prostate (HCC) Expected: 11/17/2023 (Approximate), Expires: 02/16/2024 [facility] Work Phone: Comment on above: Expected: 11/17/2023 (Approximate), Expires: 02/16/2024 Start: 11-16-2023 End: 11-16-2023 Follow-up encounter 11/16/2023 3:00 PM EDT Visit (SP) Office Hematology/Oncology [address] [place] [address] Nicolas Hwang MD [address] [place] [address] 6 month follow up lab Hematology/Oncology Comment on above: 6 month follow up la b Start: 11-16-2023 End: 11-16-2023 Patient encounter procedure 11/16/2023 2:15 PM EDT Office Visit Radiation Oncology [address] [place] [address] David Kumari MD [address] [place] [address] Followup Radiation Oncology Comment on above: Followup Start: 11-16-2023 End: 02-15-2024 MONOCLONAL PROTEIN, SERUM (BLOOD) [facility] Comment on above: Expected: 11/16/2023 , Expires: 02/15/2024 Start: 11-16-2023 End: 02-15-2024 PROT ELECT SERUM WITH FAUSTINA AND INTERP [facility] Work Phone: Comment on above: Expected: 11/16/2023 , Expires: 02/15/2024 Start: 11-09-2023 End: 11-09-2023 Patient encounter procedure 11/09/2023 1:00 PM EDT Office Visit [facility] [address] [place] [address] Lab [facility] Comment on above: Lab Start: 10-30-2023 DIABETES SCREEN DIABETES SCREEN [facility] Start: 10-08-2023 Covid-19 Vaccine () Covid-19 Vaccine () [facility] Start: 10-08-2023 Covid-19 Vaccine () Covid-19 Vaccine () [facility] Start: 10-08-2023 Influenza vaccination [facility] Start: 06-16-2023 End: 09-15-2023 MONOCLONAL PROTEIN, SERUM (BLOOD) MONOCLONAL PROTEIN, SERUM (BLOOD) Lab Routine Prostate cancer (HCC) Monoclonal gammopathy Chronic renal insufficiency, stage 3 (moderate) (HCC) Essential hypertension Expected: 06/16/2023, Expires: 09/15/2023 [facility] Work Phone: Comment on above: Expected: 06/16/2023 , Expires: 09/15/2023 Start: 05-19-2023 End: 08-18-2023 CBC W Auto Differential panel - Blood COMPLETE BLOOD COUNT AND DIFFERENTIAL Lab Routine Prostate cancer (HCC) Monoclonal gammopathy Chronic renal insufficiency, stage 3 (moderate) (HCC) Essential hypertension Expected: 05/19/2023, Expires: 08/18/2023 [facility] Work Phone: Comment on above: Expected: 05/19/2023 , Expires: 08/18/2023 Start: 05-19-2023 End: 08-18-2023 Comprehensive metabolic 2000 panel - Serum or Plasma COMPREHENSIVE METABOLIC PANEL Lab Routine Prostate cancer (HCC) Monoclonal gammopathy Chronic renal insufficiency, stage 3 (moderate) (HCC) Essential hypertension Expected: 05/19/2023, Expires: 08/18/2023 [facility] Work Phone: Comment on above: Expected: 05/19/2023 , Expires: 08/18/2023 Start: 05-19-2023 End: 08-18-2023 Prostate specific Ag [Mass/volume] in Serum or Plasma PROSTATE-SPECIFIC ANTIGEN DIAGNOSTIC Lab Routine Prostate cancer (HCC) Monoclonal gammopathy Chronic renal insufficiency, stage 3 (moderate) (HCC) Essential hypertension Expected: 05/19/2023, Expires: 08/18/2023 [facility] Work Phone: Comment on above: Expected: 05/19/2023 , Expires: 08/18/2023 Start: 05-19-2023 End: 08-18-2023 PROTEIN ELECTROPHORESIS SERUM W/INTERP PROTEIN ELECTROPHORESIS SERUM W/INTERP Lab Routine Prostate cancer (HCC) Monoclonal gammopathy Chronic renal insufficiency, stage 3 (moderate) (HCC) Essential hypertension Expected: 05/19/2023, Expires: 08/18/2023 [facility] Work Phone: Comment on above: Expected: 05/19/2023 , Expires: 08/18/2023 Start: 05-18-2023 End: 08-17-2023 CBC W Auto Differential panel - Blood CBC + DIFF Lab Routine Prostate cancer (HCC) Monoclonal gammopathy Expected: 05/18/2023, Expires: 08/17/2023 [facility] Work Phone: Comment on above: Expected: 05/18/2023 , Expires: 08/17/2023 Start: 05-18-2023 End: 08-17-2023 Comprehensive metabolic 2000 panel - Serum or Plasma COMP METABOLIC PANEL Lab Routine Prostate cancer (HCC) Monoclonal gammopathy Expected: 05/18/2023, Expires: 08/17/2023 [facility] Work Phone: Comment on above: Expected: 05/18/2023 , Expires: 08/17/2023 Start: 05-18-2023 End: 08-17-2023 MONOCLONAL PROTEIN, SERUM (BLOOD) MONOCLONAL PROTEIN, SERUM (BLOOD) Lab Routine Prostate cancer (HCC) Monoclonal gammopathy Expected: 05/18/2023, Expires: 08/17/2023 [facility] Work Phone: Comment on above: Expected: 05/18/2023 , Expires: 08/17/2023 Start: 05-18-2023 End: 08-17-2023 Prostate specific Ag [Mass/volume] in Serum or Plasma PSA/PROSTSPECAG DIAG Lab Routine Prostate cancer (HCC) Monoclonal gammopathy Expected: 05/18/2023, Expires: 08/17/2023 [facility] Work Phone: Comment on above: Expected: 05/18/2023 , Expires: 08/17/2023 Start: 05-18-2023 End: 08-17-2023 PROTEIN ELECTROPHORESIS SERUM W/INTERP PROTEIN ELECTROPHORESIS SERUM W/INTERP Lab Routine Prostate cancer (HCC) Monoclonal gammopathy Expected: 05/18/2023, Expires: 08/17/2023 [facility] Work Phone: Comment on above: Expected: 05/18/2023 , Expires: 08/17/2023 Start: 02-06-2023 Advance Directive Discussion Advance Directive Discussion [facility] Start: 02-06-2023 Behavioral Health Screening Behavioral Health Screening [facility] Start: 01-05-2023 End: 04-06-2023 MONOCLONAL PROTEIN, SERUM (BLOOD) [facility] Work Phone: Comment on above: Expected: 01/05/2023 , Expires: 04/06/2023 Start: 01-05-2023 End: 04-06-2023 PROT ELECT SERUM WITH FAUSTINA AND INTERP [facility] Work Phone: Comment on above: Expected: 01/05/2023 , Expires: 04/06/2023 Start: 11-02-2022 End: 01-02-2023 CBC W Auto Differential panel - Blood CBC + DIFF Lab Routine Monoclonal gammopathy Prostate cancer (HCC) Essential hypertension Chronic renal insufficiency, stage 3 (moderate) (HCC) Expected: 11/02/2022, Expires: 01/02/2023 [facility] Work Phone: Comment on above: Expected: 11/02/2022 , Expires: 01/02/2023 Start: 11-02-2022 End: 01-02-2023 Comprehensive metabolic 2000 panel - Serum or Plasma COMP METABOLIC PANEL Lab Routine Monoclonal gammopathy Prostate cancer (HCC) Essential hypertension Chronic renal insufficiency, stage 3 (moderate) (HCC) Expected: 11/02/2022, Expires: 01/02/2023 [facility] Work Phone: Comment on above: Expected: 11/02/2022 , Expires: 01/02/2023 Start: 11-02-2022 End: 01-02-2023 MONOCLONAL PROTEIN, SERUM (BLOOD) MONOCLONAL PROTEIN, SERUM (BLOOD) Lab Routine Monoclonal gammopathy Prostate cancer (HCC) Essential hypertension Chronic renal insufficiency, stage 3 (moderate) (HCC) Expected: 11/02/2022, Expires: 01/02/2023 [facility] Work Phone: Comment on above: Expected: 11/02/2022 , Expires: 01/02/2023 Start: 11-02-2022 End: 01-02-2023 PROT ELECT SERUM WITH FAUSTINA AND INTERP PROT ELECT SERUM WITH FAUSTINA AND INTERP Lab Routine Monoclonal gammopathy Prostate cancer (HCC) Essential hypertension Chronic renal insufficiency, stage 3 (moderate) (HCC) Expected: 11/02/2022, Expires: 01/02/2023 [facility] Work Phone: Comment on above: Expected: 11/02/2022 , Expires: 01/02/2023 Start: 10-09-2022 Bacteria identified in Urine by Culture [facility] Start: 10-07-2022 Covid-19 Vaccine ( season) Covid-19 Vaccine () [facility] Start: 10-07-2022 Influenza vaccination [facility] Start: 06-02-2022 End: 08-02-2022 CBC W Auto Differential panel - Blood CBC + DIFF Lab Routine Monoclonal gammopathy Expected: 06/02/2022, Expires: 08/02/2022 [facility] Work Phone: Comment on above: Expected: 06/02/2022 , Expires: 08/02/2022 Start: 06-02-2022 End: 08-02-2022 Comprehensive metabolic 2000 panel - Serum or Plasma COMP METABOLIC PANEL Lab Routine Monoclonal gammopathy Expected: 06/02/2022, Expires: 08/02/2022 [facility] Work Phone: Comment on above: Expected: 06/02/2022 , Expires: 08/02/2022 Start: 06-02-2022 End: 08-02-2022 MONOCLONAL PROTEIN, SERUM (BLOOD) MONOCLONAL PROTEIN, SERUM (BLOOD) Lab Routine Monoclonal gammopathy Expected: 06/02/2022, Expires: 08/02/2022 [facility] Work Phone: Comment on above: Expected: 06/02/2022 , Expires: 08/02/2022 Start: 06-02-2022 End: 08-02-2022 PROT ELECT SERUM WITH FAUSTINA AND INTERP PROT ELECT SERUM WITH FAUSTINA AND INTERP Lab Routine Monoclonal gammopathy Expected: 06/02/2022, Expires: 08/02/2022 [facility] Work Phone: Comment on above: Expected: 06/02/2022 , Expires: 08/02/2022 Start: 05-10-2022 Adult depression screening assessment DEPRESSION SCREENING [facility] Start: 02-06-2022 ADVANCE DIRECTIVE DISCUSSION ADVANCE DIRECTIVE DISCUSSION [facility] Start: 02-06-2022 DEPRESSION ASSESSMENT DEPRESSION ASS ESSMENT [facility] Start: 11-02-2021 End: 01-02-2022 CBC W Auto Differential panel - Blood CBC + DIFF Lab Routine Monoclonal gammopathy Expected: 11/02/2021, Expires: 01/02/2022 [facility] Work Phone: Comment on above: Expected: 11/02/2021 , Expires: 01/02/2022 Start: 11-02-2021 End: 01-02-2022 Comprehensive metabolic 2000 panel - Serum or Plasma COMP METABOLIC PANEL Lab Routine Monoclonal gammopathy Expected: 11/02/2021, Expires: 01/02/2022 [facility] Work Phone: Comment on above: Expected: 11/02/2021 , Expires: 01/02/2022 Start: 11-02-2021 End: 01-02-2022 PROT ELECT SERUM WITH FAUSTINA AND INTERP PROT ELECT SERUM WITH FAUSTINA AND INTERP Lab Routine Monoclonal gammopathy Expected: 11/02/2021, Expires: 01/02/2022 [facility] Work Phone: Comment on above: Expected: 11/02/2021 , Expires: 01/02/2022 Start: 10-29-2021 Adult depression screening assessment DEPRESSION SCREENING [facility] Start: 10-07-2021 Influenza vaccination C [facility] Start: 2021 RSV Vaccine (1 - 1-d ose 75+ series) RSV Vaccine (1 - 1-dose 75+ series) [facility] Start: 05-10-2021 End: 07-10-2021 CBC W Auto Differential panel - Blood CBC + DIFF Lab Routine Monoclonal gammopathy Prostate cancer (HCC) Expected: 05/10/2021, Expires: 07/10/2021 [facility] Work Phone: Comment on above: Expected: 05/10/2021 , Expires: 07/10/2021 Start: 02-06-2021 ADVANCE DIRECTIVE DISCUSSION ADVANCE DIRECTIVE DISCUSSION [facility] Start: 02-06-2021 DEPRESSION ASSESSMENT DEPRESSION ASS ESSMENT [facility] Start: 10-07-2020 Influenza vaccination INFLUENZA (#1) [facility] Start: 08-27-2020 COVID-19 VACCINE (3 - Booster) COVID-19 VACCINE (3 - Booster) [facility] Start: 05-25-2020 COVID-19 VACCINE (3 - Booster) COVID-19 VACCINE (3 - Booster) [facility] Start: 05-25-2020 COVID-19 VACCINE (3 - Mixed Product series) COVID-19 VACCINE (3 - Mixed Product series) [facility] Start: 10-08-2019 Influenza vaccination INFLUENZA (#1) [facility] Start: 02-06-2013 Colonoscopy COLONOSCOPY [facility] Start: 02-06-2013 COLORECTAL CANCER SCREENING COLORECTAL CANCER SCREENING [facility] Start: 09-03-2011 ADVANCE DIRECTIVE DISCUSSION ADVANCE DIRECTIVE DISCUSSION [facility] Start: 09-03-2011 Pneumococcal Vaccine : 50+ (1 of 1 - PCV) Pneumococcal Vaccine: 50+ (1 of 1 - PCV) [facility] Start: 09-03-2011 Pneumococcal Vaccine : 65+ (1 - PCV) Pneumococcal Vaccine: 65+ (1 - PCV) [facility] Start: 09-03-2011 Pneumococcal Vaccine : 65+ (1 of 1 - PCV) Pneumococcal Vaccine: 65+ (1 of 1 - PCV) [facility] Start: 09-03-2011 PNEUMOCOCCAL: 65+ (1 - PCV) PNEUMOCOCCAL: 65+ (1 - PCV) [facility] Start: 09-03-2011 PNEUMOVAX AGE 65 AND OVER WITH 5YR LOOKBACK (#1) PNEUMOVAX AGE 65 AND OVER WITH 5YR LOOKBACK (#1) [facility] Start: 2006 RSV Vaccine (1 - 1-d ose 60+ series) RSV Vaccine (1 - 1-dose 60+ series) [facility] Start: 1996 SHINGRIX VACCINE (1 of 2) GOLDSMITH GRIX VACCINE (1 of 2) [facility] Start: 1996 Tuberculosis screening COLOREC AUBRIE CANCER SCREENING,SEE MODIFIER [facility] Start: 09-03-1991 COLOGUARD (FIT-DNA) COLOGUARD (FIT-D NA) [facility] Start: 09-03-[address] COLONOGRAPHY [facility] Start: 09-03-1991 DIABETES SCREEN DIABETES SCREEN [facility] Start: 09-03-1991 FECAL OCCULT BLOOD FECAL OCCULT BLOO D [facility] Start: 09-03-1991 SIGMOIDOSCOPY SIGMOIDOSCOPY [facility] Start: 1981 LIPID SCREEN LIPID SCREEN [facility] Start: 1965 Urine microalbumin profile [facility] Start: 1964 Anxiety Screening Anxiety Screening [facility] Start: 1964 Depression Screening Depression Scre ening [facility] Start: 1964 HEPATITIS C SCREENING HEPATITIS C [facility] Start: 1964 Hepatitis C screening Hepatitis C [facility] CT SIM PLANNING RADI ATION ONCOLOGY CT SIM PLANNING RADIATION ONCOLOGY Radiology Routine Malignant neoplasm of prostate (HCC) Ordered: 12/15/2022 [facility] Work Phone: Comment on above: Ordered: 12/15/2022 End: 12-15-2023 MRI PROSTATE WO/W IVCON MRI PROSTATE WO/W IVCON Radiology Routine Malignant neoplasm of prostate (HCC) 1 Occurrences starting 11/15/2022 until 12/15/2023 [facility] Work Phone: Comment on above: 1 Occurrences starti ng 11/15/2022 until 12/15/2023 [facility] Immunizations Immunization Date Immunization Notes Care Provider [facility] 03-30-2020 COVID-19 vaccine (UNSPECIFIED) Nicolas Hwang MD Work Phone: [facility] 03-08-2020 COVID-19 vaccine (UNSPECIFIED) Nicolas Hwang MD Work Phone: [facility] NEGATED: Highlighted row has not occurred!10-23-2023 influenza virus vaccine, unspecified formulation Yosef GRIMES [facility] Payers Date Payer Category Payer Self-pay 2020 Medicare AETNA MEDICARE A ETNA MEDICARE PPO [id number] 2020-Present [phone] [address] [place] [address] PPO [id number] 2020 Medicare AETNA MEDICARE A ETNA MEDICARE PPO [id number] 2020-Present [phone] [address] [place] [address] PPO [id number] 2019 Medicare AETNA MEDICARE A ETNA MEDICARE PPO [id number] 2019-Present PPO [id number] 1959 Medicare [id number] 1945 Unknown [id number] [id number] 1946 Unknown [id number] 2.16.840.1.866295.3.579.2.593 1946 Unknown [id number] 2.16.840.1.700386.3.579.2.593 1946 Unknown [id number] 2.16.840.1.765972.3.579.2.593 1946 Unknown [id number] 2.16.840.1.371489.3.579.2.593 1946 Unknown [id number] 2.16.840.1.093203.3.579.2.72 1946 Unknown [id number] 2.16.840.1.382059.3.579.2.72 1946 Unknown [id number] 2.16840.1.196159.3.579.2.72 1946 Unknown [id number] 2.16840.1.327198.3.579.2.72 1946 Unknown [id number] 2.16840.1.533624.3.579.2.72 1946 Unknown [id number] 2.16840.1.620628.3.579.2.72 1946 Unknown [id number] 2.16840.1.528480.3.579.2.72 1946 Unknown [id number] 2.16840.1.269196.3.579.2.72 1946 Unknown [id number] 2.16840.1.963361.3.579.2.72 1946 Unknown [id number] 2.16840.1.366730.3.579.2.72 1946 Unknown [id number] 2.16840.1.161080.3.579.2.72 1946 Unknown [id number] 2.16.840.1.724155.3.579.2.72 1946 Unknown [id number] 2.16840.1.736617.3.579.2.727 1946 Unknown [id number] 2.16.840.1.492442.3.579.2.727 1946 Unknown [id number] 2.16.840.1.881714.3.579.2.727 Medicare [id number] Unknown [id number] Social History Date Type Detail Facility Tobacco smoking status ALIS Unknown if ever smoked [facility] Start: 1945 Sex Assigned At Not on file C [facility] Start: 10-22-2019 End: 01-23-2024 Tobacco smoking status ALIS Never smoked tobacco [facility] Comment on above: patient never a smok er denies use Start: 10-22-2019 End: 11-02-2021 Tobacco use and exposure Smokeless tobacco non-user [facility] Start: 10-29-2020 End: 11-16-2023 Alcohol intake Ex-drinker (finding) [facility] Start: 04-30-2021 End: 11-02-2021 Exposure to SARS-CoV-2 (event) Not sure [facility] Start: 06-02-2022 End: 11-15-2022 Sex Assigned At [facility] Other History of tobacco use Passive smoker [facility] Tobacco smoking status Never [facility] Comment on above: patient never a smok er denies use Start: 06-02-2022 End: 11-15-2022 History of Social function [facility] Start: 1945 Sex Assigned At Male F [facility] Functional Status Date Assessment Result Facility 01-23-2024 Functional Status N/A [facility] 01-10-2024 Functional Status N/A [facility] 01-08-2024 Functional Status N/A [facility] 11-24-2023 Functional Status N/A [facility] 05-22-2023 Functional Status N/A [facility] 12-02-2022 Functional Status N/A [facility] 11-18-2022 Functional Status N/A [facility] 10-03-2022 Functional Status N/A [facility] 09-27-2021 N/A [facility] Clinical Notes 05-21-2019 to 02-01-2024 Blayne Mosqueda, RN - 01/19/2024 8:00 AM ESTTelephone Encounter - Peggy Lakhani RN - 01/01/2024 10:23 AM ESTTelephone Encounter - Peggy Lakhani RN - 01/01/2024 10:23 AM EST Note Date & Type Note Facility 02-01-2024 Note Echocardiology Procedure Exam Date/Time Accession # Ordering Echo Transthoracic w/ 01/30/2024 11:56 EST [id number] Meño Rojas MD Contrast CPT code [id number] C8929 Reason for Exam (Echo Transthoracic w/ Contrast) Abnormal ECG, Chest pain R94.31;Other (please specify) Report [address] [id number] Adult Echocardiogram Report Name: ADOLPH JOHNS Study Date: 01/30/2024 10:54 AM BP: 137/84 mmHg Patient Location: [facility] Ambulatory(s) [facility] HR: 80 : 1945 Gender: Male Height: 76 in Age: 78 yrs [facility]: [facility] Weight: 262 lb Reason For Study: Abnormal ECG BSA: 2.5 m2 History: HTN,Prostate/Bladder Ca Ordering Physician: Bob^Meño Referring Physician: Meño Rojas Performed By: Yojana Rios, POLO, RVT Interpretation Summary Image enhancing agent used for endocardial delineation. Left ventricular systolic function is normal. Ejection Fraction = 60-65%. The left ventricular wall motion is normal. Grade I diastolic dysfunction, (abnormal relaxation pattern). There is mild pulmonary hypertension. Estimated RVSP is mildly elevated at 35 mmHg. There is no pericardial effusion. No significant valvular disease Procedure A complete two-dimensional transthoracic echocardiogram was performed using contrast (2D, M-mode, spectral and color flow Doppler). Left Ventricle The left ventricle is normal in size. There is normal left ventricular wall thickness. Left ventricular systolic Echocardiology Report function is normal. Ejection Fraction = 60-65%. The left ventricular wall motion is normal. Grade I diastolic dysfunction, (abnormal relaxation pattern). Left Atrium The left atrium is grossly normal. There is no atrial septal defect. Right Atrium The right atrium is grossly normal. Right Ventricle The right ventricular systolic function is normal. The right ventricle is normal size. Aortic Valve The trileaflet aortic valve opening is normal. No aortic regurgitation. There is no aortic stenosis. Mitral Valve Mitral valve structure is normal. There is Trace mitral regurgitation. No mitral valve stenosis. Tricuspid Valve The tricuspid valve is grossly normal. There is trace tricuspid regurgitation. Estimated RVSP is mildly elevated at 35 mmHg. There is mild pulmonary hypertension. No evidence of tricuspid stenosis. Pulmonic Valve The pulmonic valve is normal. Trace pulmonic valvular regurgitation. No evidence of stenosis. Arteries The aortic root is normal in size. Normal ascending aorta. Effusion There is no pericardial effusion. MMode/2D Measurements & Calculations RVDd: 3.6 cm LVIDd: 4.1 cm FS: 44.6 % Ao root diam: 3.5 cm IVSd: 0.80 cm LVIDs: 2.3 cm EDV(Teich): 75.9 ml Ao root area: 9.8 cm2 LVPWd: 1.1 cm ESV(Teich): 18.0 ml LA dimension: 3.6 cm EF(Teich): 76.3 % asc Aorta Diam: 3.1 cm LVOT diam: 2.1 cm LVLd ap4: 7.9 cm EDV(MOD-sp2): 83.4 ml LVOT area: 3.4 cm2 EDV(MOD-sp4): 122.0 ml ESV(MOD-sp2): 64.0 ml LVLs ap4: 6.6 cm EF(MOD-sp2): 23.3 % ESV(MOD-sp4): 27.9 ml EF(MOD-sp4): 77.1 % SV(MOD-sp4): 94.1 ml TAPSE: 2.4 cm Ao Sinus of Valsalva: 3.4 cm Ao Sinotubular Junction: 2.9 cm IVC Diam: 2.0 cm RV Base_phl: 3.4 cm RVIDd/LVIDd: 0.87 EF (MOD-bp): 58.2 % RV Length_phl: 7.5 cm RV Mid_phl: 2.9 cm Echocardiology Report LA Vol Index: 12.4 ml/m2 Doppler Measurements & Calculations Lat Peak E' Sabrina: 6.5 cm/sec Ao V2 max: 163.0 cm/sec LV V1 max P.6 mmHg SV(LVOT): 69.3 ml Med Peak E' Sabrina: 6.5 cm/sec Ao max P.6 mmHg LV V1 mean P.0 mmHg Ao V2 mean: 105.0 cm/sec LV V1 max: 118.0 cm/sec Ao mean P.0 mmHg LV V1 mean: 74.7 cm/sec Ao V2 VTI: 28.3 cm LV V1 VTI: 20.1 cm THOMAS(I,D): 2.4 cm2 THOMAS(V,D): 2.5 cm2 TR max sabrina: 260.6 cm/sec RAP systole: 3.0 mmHg AV VR: 0.72 TR max P.2 mmHg THOMAS(VTI)/BSA_phl: 0.99 RVSP(TR): 30.2 mmHg FINAL REPORT Dictated: 01/30/2024 10:54 am Reji Holloway MD Signed (Electronic Signature): 02/01/2024 4:43 pm Signed by: Reji Holloway MD Transcribed by: NETTE Technologist: [facility] 01-19-2024 History of Present illness Narrative Radiology Service Progress Note DATE OF SERVICE: January 19, 2024 TIME: 8:37 AM PATIENT WEIGHT: 261LBS PATIENT IDENTITY VERIFICATION COMPLETED USING TWO (2) STANDARD IDENTIFIERS: Name and Date of confirmed by patient verbally. FALL SCREENING: Has the patient had 2 falls in the last year or 1 fall with injury or currently using an Ambulatory Assistive Device (Walker, Cane, Wheelchair, Crutches, etc.)? No PATIENT GENDER DATA: Male ALLERGIES: Reviewed and unchanged CONTRAST ALLERGY: No EXAM: CT -CONTRAST INDUCED NEPHROPATHY RISK FACTORS: Patient age > 60 years CREATININE: Creatinine Date Value Ref Range Status 11/16/2023 1.35 (H) 0.73 - 1.22 mg/dL Final 05/18/2023 1.34 (H) 0.73 - 1.22 mg/dL Final 01/19/2023 1.30 (H) 0.73 - 1.22 mg/dL Final Estimated Glomerular Filtration Rate Date Value Ref Range Status 11/16/2023 54 (L) >=60 mL/min/1.73m Final Comment: Estimated Glomerular Filtration Rate (eGFR) is calculated using the 2020 CKD-EPI creatinine equation. This equation utilizes serum creatinine, sex, and age as parameters. The creatinine assay has traceable calibration to isotope dilution-mass spectrometry. Refer to KDIGO guidelines for clinical interpretation. In patients with unstable renal function, e.g. those with acute kidney injury, the eGFR may not accurately reflect actual GFR. eGFR- Date Value Ref Range Status 10/29/2020 Cancelled by clinician Final Comment: REORDERED TO CHANGE TRACKING LOCATION [facility] 10/29/2020 [address]T. RESULTS: POC done: Yes, See Lab Tab January 19, 2024 TREATMENT: N/A IV SITE: Ambulatory: A peripheral IV was started in the Right hand with a Angio cath: 20 gauge. IV SITE APPEARANCE: Clean,Dry and Intact SIGNATURE: Blayne Mosqueda RN PATIENT NAME: Adolph Johns DATE: January 19, 2024 TIME: 8:37 AM documented in this encounter [facility] 01-19-2024 Note HNO ID: [id number] Author: BLAYNE MOSQUEDA RN Service: ? Author Type: Registered Nurse Type: Progress Notes Filed: 01/19/2024 08:37 Note Text: Radiology Service Progress Note DATE OF SERVICE: January 19, 2024 TIME: 8:37 AM PATIENT WEIGHT: 261LBS PATIENT IDENTITY VERIFICATION COMPLETED USING TWO (2) STANDARD IDENTIFIERS: Name and Date of confirmed by patient verbally. FALL SCREENING: Has the patient had 2 falls in the last year or 1 fall with injury or currently using an Ambulatory Assistive Device (Walker, Cane, Wheelchair, Crutches, etc.)? No PATIENT GENDER DATA: Male ALLERGIES: Reviewed and unchanged CONTRAST ALLERGY: No EXAM: CT -CONTRAST INDUCED NEPHROPATHY RISK FACTORS: Patient age > 60 years CREATININE: Creatinine Date Value Ref Range Status 11/16/2023 1.35 (H) 0.73 - 1.22 mg/dL Final 05/18/2023 1.34 (H) 0.73 - 1.22 mg/dL Final 01/19/2023 1.30 (H) 0.73 - 1.22 mg/dL Final Estimated Glomerular Filtration Rate Date Value Ref Range Status 11/16/2023 54 (L) >=60 mL/min/1.73m? Final Comment: Estimated Glomerular Filtration Rate (eGFR) is calculated using the 2020 CKD-EPI creatinine equation. This equation utilizes serum creatinine, sex, and age as parameters. The creatinine assay has traceable calibration to isotope dilution-mass spectrometry. Refer to KDIGO guidelines for clinical interpretation. In patients with unstable renal function, e.g. those with acute kidney injury, the eGFR may not accurately reflect actual GFR. eGFR- Date Value Ref Range Status 10/29/2020 Cancelled by clinician Final Comment: REORDERED TO CHANGE TRACKING LOCATION [facility] 10/29/2020 [address]353 [address]T. RESULTS: POC done: Yes, See Lab Tab January 19, 2024 TREATMENT: N/A IV SITE: Ambulatory: A peripheral IV was started in the Right hand with a Angio cath: 20 gauge. IV SITE APPEARANCE: Clean,Dry and Intact SIGNATURE: Blayne Mosqueda RN PATIENT NAME: Adolph Johns DATE: January 19, 2024 TIME: 8:37 AM [facility] 01-10-2024 Hospital Discharge instructions Patient Education 01/10/2024 13:10:38 Transurethral Resection of Bladder Tumor, Care After Transurethral Resection of Bladder Tumor, Care After The following information offers guidance on how to care for yourself after your procedure. Your health care provider may also give you more specific instructions. If you have problems or questions, contact your health care provider. What can I expect after the procedure? After the procedure, it is common to have: A small amount of blood or small blood clots in your urine for up to 2 weeks. Soreness or mild pain from your catheter. After your catheter is removed, you may have mild soreness, especially when urinating. A need to urinate often. Pain in your lower abdomen. Follow these instructions at home: Medicines Take xvao-hct-vysvkas and prescription medicines only as told by your health care provider. If you were prescribed an antibiotic medicine, take it as told by your health care provider. Do not stop taking the antibiotic even if you start to feel better. Ask your health care provider if the medicine prescribed to you: ?Requires you to avoid driving or using machinery. ?Can cause constipation. You may need to take these actions to prevent or treat constipation: ?Drink enough fluid to keep your urine pale yellow. ?Take zhub-vcx-hrpqpey or prescription medicines. ?Eat foods that are high in fiber, such as beans, whole grains, and fresh fruits and vegetables. ?Limit foods that are high in fat and processed sugars, such as fried or sweet foods. Activity If you were given a sedative during the procedure, it can affect you for several hours. Do not drive or operate machinery until your health care provider says that it is safe. Rest as told by your health care provider. Avoid sitting for a long time without moving. Get up to take short walks every 1 2 hours. This is important to improve blood flow and breathing. Ask for help if you feel weak or unsteady. Do not lift anything that is heavier than 10 lb (4.5 kg), or the limit that you are told, until your health care provider says that it is safe. Avoid intense physical activity for as long as told by your health care provider. Do not have sex until your health care provider approves. Return to your normal activities as told by your health care provider. Ask your health care provider what activities are safe for you. General instructions If you have a catheter, follow instructions from your health care provider about caring for your catheter and your drainage bag. Do not drink alcohol for as long as told by your health care provider. This is especially important if you are taking prescription pain medicines. Do not use any products that contain nicotine or tobacco. These products include cigarettes, chewing tobacco, and vaping devices, such as e-cigarettes. If you need help quitting, ask your health care provider. Wear compression stockings as told by your health care provider. These stockings help to prevent blood clots and reduce swelling in your legs. Keep all follow-up visits. This is important. ?You will need to be followed closely with regular checks of your bladder and urethra (cystoscopies) to make sure that the cancer does not come back. Contact a health care provider if: You have blood in your urine for more than 2 weeks. You become constipated. Signs of constipation may include: ?Having fewer than three bowel movements in a week. ?Difficulty having a bowel movement. ?Stools that are dry, hard, or larger than normal. You have a urinary catheter in place, and you have: ?Spasms or pain. ?Problems with your catheter or your catheter is blocked. Your catheter has been taken out but you are unable to urinate. You have signs of infection, such as: ?Fever or chills. ?Cloudy or bad-smelling urine. Get help right away if: You have severe abdominal pain that gets worse or does not improve with medicine. You have a lot of large blood clots in your urine. You develop swelling or pain in your leg. You have difficulty breathing. These symptoms may be an emergency. Get help right away. Call 911. Do not wait to see if the symptoms will go away. Do not drive yourself to the hospital. Summary After your procedure, it is common to have a small amount of blood or small blood clots in your urine, soreness or mild pain from your catheter, and pain in your lower abdomen. Take okfe-tzk-auxpzzn and prescription medicines only as told by your health care provider. Rest as told by your health care provider. Follow your health care provider's instructions about returning to normal activities. Ask what activities are safe for you. If you have a catheter, follow instructions from your health care provider about caring for your catheter and your drainage bag. This information is not intended to replace advice given to you by your health care provider. Make sure you discuss any questions you have with your health care provider. Document Revised: 01/28/2022 Document Reviewed: 01/28/2022 [employer] Patient Education 2023 Caregivers. 01/10/2024 13:10:32 Transurethral Resection of Bladder Tumor Transurethral Resection of Bladder Tumor Transurethral resection of a bladder tumor is the removal (resection) of cancerous tissue (tumor) from the inside wall of the bladder. The bladder is the organ that holds urine. The tumor is removed through the tube that carries urine out of the body (urethra). In a transurethral resection, a thin telescope with a light, a tiny camera, and an electric cutting edge (resectoscope) is passed through the urethra. In men, the opening of the urethra is at the end of the penis. In women, it is just above the opening of the vagina. Tell a health care provider about: Any allergies you have. All medicines you are taking, including vitamins, herbs, eye drops, creams, and xoms-zxg-pptezoq medicines. Any problems you or family members have had with anesthetic medicines. Any bleeding problems you have. Any surgeries you have had. Any medical conditions you have, including recent urinary tract infections. Whether you are or may be . What are the risks? Generally, this is a safe procedure. However, problems may occur, including: Infection. Bleeding. Allergic reactions to medicines. Damage to nearby structures or organs. Difficulty urinating from blockage of the urethra or not being able to urinate (urinary retention). Deep vein thrombosis. This is a blood clot that can develop in your leg. Recurring cancer. What happens before the procedure? When to stop eating and drinking Follow instructions from your health care provider about what you may eat and drink before your procedure. These may include: 8 hours before your procedure ?Stop eating most foods. Do not eat meat, fried foods, or fatty foods. ?Eat only light foods, such as toast or crackers. ?All liquids are okay except energy drinks and alcohol. 6 hours before your procedure ?Stop eating. ?Drink only clear liquids, such as water, clear fruit juice, black coffee, plain tea, and sports drinks. ?Do not drink energy drinks or alcohol. 2 hours before your procedure ?Stop drinking all liquids. ?You may be allowed to take medicines with small sips of water. Medicines Ask your health care provider about: Changing or stopping your regular medicines. This is especially important if you are taking diabetes medicines or blood thinners. Taking medicines such as aspirin and ibuprofen. These medicines can thin your blood. Do not take these medicines unless your health care provider tells you to take them. Taking vpwc-xoi-wcuhbhn medicines, vitamins, herbs, and supplements. General instructions If you will be going home right after the procedure, plan to have a responsible adult: ?Take you home from the hospital or clinic. You will not be allowed to drive. ?Care for you for the time you are told. Ask your health care provider what steps will be taken to help prevent infection. These steps may include: ? Washing skin with a germ-killing soap. ? Taking antibiotic medicine. Do not use any products that contain nicotine or tobacco for at least 4 weeks before the procedure. These products include cigarettes, chewing tobacco, and vaping devices, such as e-cigarettes. If you need help quitting, ask your health care provider. What happens during the procedure? An IV will be inserted into one of your veins. You will be given one or more of the following: ?A medicine to help you relax (sedative). ?A medicine that is injected into your spine to numb the area below and slightly above the injection site (spinal anesthetic). ?A medicine that is injected into an area of your body to numb everything below the injection site (regional anesthetic). ?A medicine to make you fall asleep (general anesthetic). Your legs will be placed in foot rests (stirrups) to open your legs and bend your knees. The resectoscope will be passed through your urethra and into your bladder. The part of your bladder with the tumor will be resected by the cutting edge of the resectoscope. Fluid will be passed to rinse out the cut tissues (irrigation). The resectoscope will then be taken out. A small, thin tube (catheter) will be passed through your urethra and into your bladder. The catheter will drain urine into a bag outside of your body. The procedure may vary among health care providers and hospitals. What happens after the procedure? Your blood pressure, heart rate, breathing rate, and blood oxygen level will be monitored until you leave the hospital or clinic. You may continue to receive fluids and medicines through an IV. You will be given pain medicine to relieve pain. You will have a catheter to drain your urine. ?The amount of urine will be measured. If you have blood in your urine, your bladder may be rinsed out by passing fluid through your catheter. You will be encouraged to walk as soon as you can. You may have to wear compression stockings. These stockings help to prevent blood clots and reduce swelling in your legs. If you were given a sedative during the procedure, it can affect you for several hours. Do not drive or operate machinery until your health care provider says that it is safe. Summary Transurethral resection of a bladder tumor is the removal (resection) of a cancerous growth (tumor) on the inside wall of the bladder. To do this procedure, your health care provider uses a thin telescope with a light, a tiny camera, and an electric cutting edge (resectoscope) that is guided to your bladder through your urethra. The part of your bladder that is affected by the tumor will be resected by the cutting edge of the resectoscope. A catheter will be passed through your urethra and into your bladder. The catheter will drain urine into a bag outside of your body. If you will be going home right after the procedure, plan to have a responsible adult take you home from the hospital or clinic. You will not be allowed to drive. This information is not intended to replace advice given to you by your health care provider. Make sure you discuss any questions you have with your health care provider. Document Revised: 01/28/2022 Document Reviewed: 01/28/2022 [employer] Patient Education 2023 Caregivers. Follow Up Care 01/08/2024 10:29:10 With:CORNELIO ROSARIO, Yosef Bunch, URL Address: [facility] [address] [place] [address]- When: Unknown [facility] 01-10-2024 Note Patient Education Oncology Transurethral Resection of Bladder Tumor, Care After The following information offers guidance on how to care for yourself after your procedure. Your health care provider may also give you more specific instructions. If you have problems or questions, contact your health care provider. What can I expect after the procedure? After the procedure, it is common to have: ??? A small amount of blood or small blood clots in your urine for up to 2 weeks. ??? Soreness or mild pain from your catheter. After your catheter is removed, you may have mild soreness, especially when urinating. ??? A need to urinate often. ??? Pain in your lower abdomen. Follow these instructions at home: Medicines ??? Take zifd-fwl-ogdjbmp and prescription medicines only as told by your health care provider. ??? If you were prescribed an antibiotic medicine, take it as told by your health care provider. Do not stop taking the antibiotic even if you start to feel better. ??? Ask your health care provider if the medicine prescribed to you: ? Requires you to avoid driving or using machinery. ? Can cause constipation. You may need to take these actions to prevent or treat constipation: ? Drink enough fluid to keep your urine pale yellow. ? Take dyml-yoj-fkownyl or prescription medicines. ? Eat foods that are high in fiber, such as beans, whole grains, and fresh fruits and vegetables. ? Limit foods that are high in fat and processed sugars, such as fried or sweet foods. Activity ??? If you were given a sedative during the procedure, it can affect you for several hours. Do not drive or operate machinery until your health care provider says that it is safe. ??? Rest as told by your health care provider. ??? Avoid sitting for a long time without moving. Get up to take short walks every 1?2 hours. This is important to improve blood flow and breathing. Ask for help if you feel weak or unsteady. ??? Do not lift anything that is heavier than 10 lb (4.5 kg), or the limit that you are told, until your health care provider says that it is safe. ??? Avoid intense physical activity for as long as told by your health care provider. ??? Do not have sex until your health care provider approves. ??? Return to your normal activities as told by your health care provider. Ask your health care provider what activities are safe for you. General instructions ??? If you have a catheter, follow instructions from your health care provider about caring for your catheter and your drainage bag. ??? Do not drink alcohol for as long as told by your health care provider. This is especially important if you are taking prescription pain medicines. ??? Do not use any products that contain nicotine or tobacco. These products include cigarettes, chewing tobacco, and vaping devices, such as e-cigarettes. If you need help quitting, ask your health care provider. ??? Wear compression stockings as told by your health care provider. These stockings help to prevent blood clots and reduce swelling in your legs. ??? Keep all follow-up visits. This is important. ? You will need to be followed closely with regular checks of your bladder and urethra (cystoscopies) to make sure that the cancer does not come back. Contact a health care provider if: ??? You have blood in your urine for more than 2 weeks. ??? You become constipated. Signs of constipation may include: ? Having fewer than three bowel movements in a week. ? Difficulty having a bowel movement. ? Stools that are dry, hard, or larger than normal. ??? You have a urinary catheter in place, and you have: ? Spasms or pain. ? Problems with your catheter or your catheter is blocked. ??? Your catheter has been taken out but you are unable to urinate. ??? You have signs of infection, such as: ? Fever or chills. ? Cloudy or bad-smelling urine. Get help right away if: ??? You have severe abdominal pain that gets worse or does not improve with medicine. ??? You have a lot of large blood clots in your urine. ??? You develop swelling or pain in your leg. ??? You have difficulty breathing. These symptoms may be an emergency. Get help right away. Call 911. ??? Do not wait to see if the symptoms will go away. ??? Do not drive yourself to the hospital. Summary ??? After your procedure, it is common to have a small amount of blood or small blood clots in your urine, soreness or mild pain from your catheter, and pain in your lower abdomen. ??? Take nvfy-lic-oihwcfg and prescription medicines only as told by your health care provider. ??? Rest as told by your health care provider. Follow your health care provider's instructions about returning to normal activities. Ask what activities are safe for you. ??? If you have a catheter, follow instructions from your health care provider about caring for your catheter and your drainage bag. (more content not included)... [facility] 01-08-2024 Hospital Discharge instructions Patient Education 01/08/2024 10:14:12 Cystoscopy Cystoscopy Cystoscopy is a procedure that is used to help diagnose and sometimes treat conditions that affect the lower urinary tract. The lower urinary tract includes the bladder and the urethra. The urethra is the tube that drains urine from the bladder. Cystoscopy is done using a thin, tube-shaped instrument with a light and camera at the end (cystoscope). The cystoscope may be hard or flexible, depending on the goal of the procedure. The cystoscope is inserted through the urethra, into the bladder. Cystoscopy may be recommended if you have: Urinary tract infections that keep coming back. Blood in the urine (hematuria). An inability to control when you urinate (urinary incontinence) or an overactive bladder. Unusual cells found in a urine sample. A blockage in the urethra, such as a urinary stone. Painful urination. An abnormality in the bladder found during an intravenous pyelogram (IVP) or CT scan. Cystoscopy may also be done to remove a sample of tissue to be examined under a microscope (biopsy). Tell a health care provider about: Any allergies you have. All medicines you are taking, including vitamins, herbs, eye drops, creams, and vwbq-gyr-xwhlmwh medicines. Any problems you or family members have had with anesthetic medicines. Any blood disorders you have. Any surgeries you have had. Any medical conditions you have. Whether you are or may be . What are the risks? Generally, this is a safe procedure. However, problems may occur, including: Infection. Bleeding. Allergic reactions to medicines. Damage to other structures or organs. What happens before the procedure? Medicines Ask your health care provider about: Changing or stopping your regular medicines. This is especially important if you are taking diabetes medicines or blood thinners. Taking medicines such as aspirin and ibuprofen. These medicines can thin your blood. Do not take these medicines unless your health care provider tells you to take them. Taking vccn-cjr-pjvvkgt medicines, vitamins, herbs, and supplements. Tests You may have an exam or testing, such as: X-rays of the bladder, urethra, or kidneys. CT scan of the abdomen or pelvis. Urine tests to check for signs of infection. General instructions Follow instructions from your health care provider about eating or drinking restrictions. Ask your health care provider what steps will be taken to help prevent infection. These steps may include: ?Washing skin with a germ-killing soap. ?Taking antibiotic medicine. Plan to have a responsible adult take you home from the hospital or clinic. What happens during the procedure? You will be given one or more of the following: ?A medicine to help you relax (sedative). ?A medicine to numb the area (local anesthetic). The area around the opening of your urethra will be cleaned. The cystoscope will be passed through your urethra into your bladder. Germ-free (sterile) fluid will flow through the cystoscope to fill your bladder. The fluid will stretch your bladder so that your health care provider can clearly examine your bladder medley. Your doctor will look at the urethra and bladder. Your doctor may take a biopsy or remove stones. The cystoscope will be removed, and your bladder will be emptied. The procedure may vary among health care providers and hospitals. What can I expect after the procedure? After the procedure, it is common to have: Some soreness or pain in your abdomen and urethra. Urinary symptoms. These include: ?Mild pain or burning when you urinate. Pain should stop within a few minutes after you urinate. This may last for up to 1 week. ?A small amount of blood in your urine for several days. ?Feeling like you need to urinate but producing only a small amount of urine. Follow these instructions at home: Medicines Take jeik-qnr-nlnapyv and prescription medicines only as told by your health care provider. If you were prescribed an antibiotic medicine, take it as told by your health care provider. Do not stop taking the antibiotic even if you start to feel better. General instructions Return to your normal activities as told by your health care provider. Ask your health care provider what activities are safe for you. If you were given a sedative during the procedure, it can affect you for several hours. Do not drive or operate machinery until your health care provider says that it is safe. Watch for any blood in your urine. If the amount of blood in your urine increases, call your health care provider. Follow instructions from your health care provider about eating or drinking restrictions. If a tissue sample was removed for testing (biopsy) during your procedure, it is up to you to get your test results. Ask your health care provider, or the department that is doing the test, when your results will be ready. Drink enough fluid to keep your urine pale yellow. Keep all follow-up visits. This is important. Contact a health care provider if: You have pain that gets worse or does not get better with medicine, especially pain when you urinate. You have trouble urinating. You have more blood in your urine. Get help right away if: You have blood clots in your urine. You have abdominal pain. You have a fever or chills. You are unable to urinate. Summary Cystoscopy is a procedure that is used to help diagnose and sometimes treat conditions that affect the lower urinary tract. Cystoscopy is done using a thin, tube-shaped instrument with a light and camera at the end. After the procedure, it is common to have some soreness or pain in your abdomen and urethra. Watch for any blood in your urine. If the amount of blood in your urine increases, call your health care provider. If you were prescribed an antibiotic medicine, take it as told by your health care provider. Do not stop taking the antibiotic even if you start to feel better. This information is not intended to replace advice given to you by your health care provider. Make sure you discuss any questions you have with your health care provider. Document Revised: 10/06/2021 Document Reviewed: 09/04/2020 [employer] Patient Education 2023 Caregivers. 01/08/2024 10:14:09 Hematuria, Adult Hematuria, Adult Hematuria is blood in the urine. Blood may be visible in the urine, or it may be identified with a test. This condition can be caused by infections of the bladder, urethra, kidney, or prostate. Other possible causes include: Kidney stones. Cancer of the urinary tract. Too much calcium in the urine. Conditions that are passed from parent to child (inherited conditions). Exercise that requires a lot of energy. Infections can usually be treated with medicine, and a kidney stone usually will pass through your urine. If neither of these is the cause of your hematuria, more tests may be needed to identify the cause of your symptoms. It is very important to tell your health care provider about any blood in your urine, even if it is painless or the blood stops without treatment. Blood in the urine, when it happens and then stops and then happens again, can be a symptom of a very serious condition, including cancer. There is no pain in the initial stages of many urinary cancers. Follow these instructions at home: Medicines Take eyot-vrq-xrixxuh and prescription medicines only as told by your health care provider. If you were prescribed an antibiotic medicine, take it as told by your health care provider. Do not stop taking the antibiotic even if you start to feel better. Eating and drinking Drink enough fluid to keep your urine pale yellow. It is recommended that you drink 3 4 quarts (2.8 3.8 L) a day. If you have been diagnosed with an infection, drinking cranberry juice in addition to large amounts of water is recommended. Avoid caffeine, tea, and carbonated beverages. These tend to irritate the bladder. Avoid alcohol because it may irritate the prostate (in males). General instructions If you have been diagnosed with a kidney stone, follow your health care provider's instructions about straining your urine to catch the stone. Empty your bladder often. Avoid holding urine for long periods of time. If you are female: ?After a bowel movement, wipe from front to back and use each piece of toilet paper only once. ?Empty your bladder before and after sex. Pay attention to any changes in your symptoms. Tell your health care provider about any changes or any new symptoms. It is up to you to get the results of any tests. Ask your health care provider, or the department that is doing the test, when your results will be ready. Keep all follow-up visits. This is important. Contact a health care provider if: You develop back pain. You have a fever or chills. You have nausea or vomiting. Your symptoms do not improve after 3 days. Your symptoms get worse. Get help right away if: You develop severe vomiting and are unable to take medicine without vomiting. You develop severe pain in your back or abdomen even though you are taking medicine. You pass a large amount of blood in your urine. You pass blood clots in your urine. You feel very weak or like you might faint. You faint. Summary Hematuria is blood in the urine. It has many possible causes. It is very important that you tell your health care provider about any blood in your urine, even if it is painless or the blood stops without treatment. Take nrrb-qmh-rindksw and prescription medicines only as told by your health care provider. Drink enough fluid to keep your urine pale yellow. This information is not intended to replace advice given to you by your health care provider. Make sure you discuss any questions you have with your health care provider. Document Revised: 09/23/2020 Document Reviewed: 09/23/2020 [employer] Patient Education 2023 Caregivers. Follow Up Care 01/01/2024 08:46:40 With:CORNELIO ROSARIO, Yosef Bunch, URL Address: [facility] [address], [place] [address]- [phone] When: Unknown [facility] Manoj 01-08-2024 Note Patient Education Urology Cystoscopy Cystoscopy is a procedure that is used to help diagnose and sometimes treat conditions that affect the lower urinary tract. The lower urinary tract includes the bladder and the urethra. The urethra is the tube that drains urine from the bladder. Cystoscopy is done using a thin, tube-shaped instrument with a light and camera at the end (cystoscope). The cystoscope may be hard or flexible, depending on the goal of the procedure. The cystoscope is inserted through the urethra, into the bladder. Cystoscopy may be recommended if you have: ??? Urinary tract infections that keep coming back. ??? Blood in the urine (hematuria). ??? An inability to control when you urinate (urinary incontinence) or an overactive bladder. ??? Unusual cells found in a urine sample. ??? A blockage in the urethra, such as a urinary stone. ??? Painful urination. ??? An abnormality in the bladder found during an intravenous pyelogram (IVP) or CT scan. Cystoscopy may also be done to remove a sample of tissue to be examined under a microscope (biopsy). Tell a health care provider about: ??? Any allergies you have. ??? All medicines you are taking, including vitamins, herbs, eye drops, creams, and cxzu-utt-rfcoaho medicines. ??? Any problems you or family members have had with anesthetic medicines. ??? Any blood disorders you have. ??? Any surgeries you have had. ??? Any medical conditions you have. ??? Whether you are or may be . What are the risks? Generally, this is a safe procedure. However, problems may occur, including: ??? Infection. ??? Bleeding. ??? Allergic reactions to medicines. ??? Damage to other structures or organs. What happens before the procedure? Medicines Ask your health care provider about: ??? Changing or stopping your regular medicines. This is especially important if you are taking diabetes medicines or blood thinners. ??? Taking medicines such as aspirin and ibuprofen. These medicines can thin your blood. Do not take these medicines unless your health care provider tells you to take them. ??? Taking oaat-isu-vygripf medicines, vitamins, herbs, and supplements. Tests You may have an exam or testing, such as: ??? X-rays of the bladder, urethra, or kidneys. ??? CT scan of the abdomen or pelvis. ??? Urine tests to check for signs of infection. General instructions ??? Follow instructions from your health care provider about eating or drinking restrictions. ??? Ask your health care provider what steps will be taken to help prevent infection. These steps may include: ? Washing skin with a germ-killing soap. ? Taking antibiotic medicine. ??? Plan to have a responsible adult take you home from the hospital or clinic. What happens during the procedure? You will be given one or more of the following: ? A medicine to help you relax (sedative). ? A medicine to numb the area (local anesthetic). ??? The area around the opening of your urethra will be cleaned. ??? The cystoscope will be passed through your urethra into your bladder. ??? Germ-free (sterile) fluid will flow through the cystoscope to fill your bladder. The fluid will stretch your bladder so that your health care provider can clearly examine your bladder medley. ??? Your doctor will look at the urethra and bladder. Your doctor may take a biopsy or remove stones. ??? The cystoscope will be removed, and your bladder will be emptied. The procedure may vary among health care providers and hospitals. What can I expect after the procedure? After the procedure, it is common to have: ??? Some soreness or pain in your abdomen and urethra. ??? Urinary symptoms. These include: ? Mild pain or burning when you urinate. Pain should stop within a few minutes after you urinate. This may last for up to 1 week. ? A small amount of blood in your urine for several days. ? Feeling like you need to urinate but producing only a small amount of urine. Follow these instructions at home: Medicines ??? Take mhkp-myh-ndeuolx and prescription medicines only as told by your health care provider. ??? If you were prescribed an antibiotic medicine, take it as told by your health care provider. Do not stop taking the antibiotic even if you start to feel better. General instructions ??? Return to your normal activities as told by your health care provider. Ask your health care provider what activities are safe for you. ??? If you were given a sedative during the procedure, it can affect you for several hours. Do not drive or operate machinery until your health care provider says that it is safe. ??? Watch for any blood in your urine. If the amount of blood in your urine increases, call your health care provider. ??? Follow instructions from your health care provider about eating or drinking restrictions. ??? If a tissue sample was removed for testing (biopsy) during your (more content not included)... [facility] 01-01-2024 Telephone encounter Note Pt returned call and was notified. Peggy Lakhani RN [facility] 01-01-2024 Miscellaneous Notes Pt returned call and was notified. Peggy Lakhani RN I left a message for Adolph to call the office. Yuko Barahona RN Attempted to call patient with Dr. Kumari's recommendation but there was no answer. Yuko Barahona RN Adolph left a message stating he has blood in his urine and would like to see Dr. Kumari on Monday. Adolph completed radiation therapy to the pelvis and prostate bed/bladder base 02/02/23. Last office visit was 11/16/[address] Kumari and Dr. Hwang. Adolph continues taking abiraterone and prednisone per Dr. Hwang. Next scheduled follow up is 05/14/24. I called and spoke to Adolph and he said he started with blood in his urine yesterday x 2. He states the blood fills the toilet and that clots are present. He denies blood in his urine today. He denies blood in his stool. He denies fevers, pain/burning with urination, does not push or strain to start his flow, denies low back pain. He states he urinates frequently but that is unchanged since his prostatectomy last year. He states he has a call out to Dr. Grimes also. He is wondering if Dr. Kumari needs to order CT scans. Please advise. Yuko Barahona RN documented in this encounter [facility] 01-01-2024 Telephone encounter Note I left a message for Adolph to call the office. Yuko Barahona RN [facility] 12-29-2023 Telephone encounter Note Attempted to call patient with Dr. Kumari's recommendation but there was no answer. Yuko Baarhona RN [facility] 12-29-2023 Telephone encounter Note Adolph left a message stating he has blood in his urine and would like to see Dr. Kumari on Monday. Adolph completed radiation therapy to the pelvis and prostate bed/bladder base 02/02/23. Last office visit was 11/16/[address] Kumari and Dr. Hwang. Adolph continues taking abiraterone and prednisone per Dr. Hwang. Next scheduled follow up is 05/14/24. I called and spoke to Adolph and he said he started with blood in his urine yesterday x 2. He states the blood fills the toilet and that clots are present. He denies blood in his urine today. He denies blood in his stool. He denies fevers, pain/burning with urination, does not push or strain to start his flow, denies low back pain. He states he urinates frequently but that is unchanged since his prostatectomy last year. He states he has a call out to Dr. Grimes also. He is wondering if Dr. Kumari needs to order CT scans. Please advise. Yuko Barahona RN [facility] 11-24-2023 Hospital Discharge instructions Patient Education 11/24/2023 12:34:51 Prostate Cancer Prostate Cancer The prostate is a small gland that produces fluid that makes up semen (seminal fluid). It is located below the bladder in men, in front of the rectum. Prostate cancer is the abnormal growth of cells in the prostate gland. What are the causes? The exact cause of this condition is not known. What increases the risk? You are more likely to develop this condition if: You are 65 years of age or older. You have a family history of prostate cancer. You have a family history of breast and ovarian cancer. You have genes that are passed from parent to child (inherited), such as BRCA1 and BRCA2. You have Ascencio syndrome. men and men of descent are diagnosed with prostate cancer at higher rates than other men. The reasons for this are not well understood and are likely due to a combination of genetic and environmental factors. What are the signs or symptoms? Symptoms of this condition include: Problems with urination. This may include: ?A weak or interrupted flow of urine. ?Trouble starting or stopping urination. ?Trouble emptying the bladder all the way. ?The need to urinate more often, especially at night. Blood in urine or semen. Persistent pain or discomfort in the lower back, lower abdomen, or hips. Trouble getting an erection. Weakness or numbness in the legs or feet. How is this diagnosed? This condition can be diagnosed with: A digital rectal exam. For this exam, a health care provider inserts a gloved finger into the rectum to feel the prostate gland. A blood test called a prostate-specific antigen (PSA) test. A procedure in which a sample of tissue is taken from the prostate and checked under a microscope (prostate biopsy). An imaging test called transrectal ultrasonography. Once the condition is diagnosed, tests will be done to determine how far the cancer has spread. This is called staging the cancer. Staging may involve imaging tests, such as a bone scan, CT scan, PET scan, or MRI. Stages of prostate cancer The stages of prostate cancer are as follows: Stage 1 (I). At this stage, the cancer is found in the prostate only. The cancer is not visible on imaging tests, and it is usually found by accident, such as during prostate surgery. Stage 2 (II). At this stage, the cancer is more advanced than it is in stage 1, but the cancer has not spread outside the prostate. Stage 3 (III). At this stage, the cancer has spread beyond the outer layer of the prostate to nearby tissues. The cancer may be found in the seminal vesicles, which are near the bladder and the prostate. Stage 4 (IV). At this stage, the cancer has spread to other parts of the body, such as the lymph nodes, bones, bladder, rectum, liver, or lungs. Prostate cancer grading Prostate cancer is also graded according to how the cancer cells look under a microscope. This is called the Coreen score and the total score can range from 6 10, indicating how likely it is that the cancer will spread (metastasize) to other parts of the body. The higher the score, the greater the likelihood that the cancer will spread. Lefors 6 or lower: This indicates that the cancer cells look similar to normal prostate cells (well differentiated). Coreen 7: This indicates that the cancer cells look somewhat similar to normal prostate cells (moderately differentiated). Lefors 8, 9, or 10: This indicates that the cancer cells look very different than normal prostate cells (poorly differentiated). How is this treated? Treatment for this condition depends on several factors, including the stage of the cancer, your age, personal preferences, and your overall health. Talk with your health care provider about treatment options that are recommended for you. Common treatments include: Observation for early stage prostate cancer (active surveillance). This involves having exams, blood tests, and in some cases, more biopsies. For some men, this is the only treatment needed. Surgery. Types of surgeries include: ?Open surgery (radical prostatectomy). In this surgery, a larger incision is made to remove the prostate. ?A laparoscopic radical prostatectomy. This is a surgery to remove the prostate and lymph nodes through several small incisions. It is often referred to as a minimally invasive surgery. ?A robotic radical prostatectomy. This is laparoscopic surgery to remove the prostate and lymph nodes with the help of robotic arms that are controlled by the surgeon. ?Cryoablation. This is surgery to freeze and destroy cancer cells. Radiation treatment. Types of radiation treatment include: ?External beam radiation. This type aims beams of radiation from outside the body at the prostate to destroy cancerous cells. ?Brachytherapy. This type uses radioactive needles, seeds, wires, or tubes that are implanted into the prostate gland. Like external beam radiation, brachytherapy destroys cancerous cells. An advantage is that this type of radiation limits the damage to surrounding tissue and has fewer side effects. Chemotherapy. This treatment kills cancer cells or stops them from multiplying. It kills both cancer cells and normal cells. Targeted therapy. This treatment uses medicines to kill cancer cells without damaging normal cells. Hormone treatment. This treatment involves taking medicines that act on testosterone, one of the male hormones, by: ?Stopping your body from producing testosterone. ?Blocking testosterone from reaching cancer cells. Follow these instructions at home: Lifestyle Do not use any products that contain nicotine or tobacco. These products include cigarettes, chewing tobacco, and vaping devices, such as e-cigarettes. If you need help quitting, ask your health care provider. Eat a healthy diet. To do this: ?Eat foods that are high in fiber. These include beans, whole grains, and fresh fruits and vegetables. ?Limit foods that are high in fat and sugar. These include fried or sweet foods. Treatment for prostate cancer may affect sexual function. If you have a partner, continue to have intimate moments. This may include touching, holding, hugging, and caressing your partner. Get plenty of sleep. Consider joining a support group for men who have prostate cancer. Meeting with a support group may help you learn to manage the stress of having cancer. General instructions Take ivkl-rth-mrcxode and prescription medicines only as told by your health care provider. If you have to go to the hospital, notify your cancer specialist (oncologist). Keep all follow-up visits. This is important. Where to find more information [place] [employer]: www.cancer.org [place] [employer]: www.cancer.net [employer] [place]: www.cancer.gov Contact a health care provider if: You have new or increasing trouble urinating. You have new or increasing blood in your urine. You have new or increasing pain in your hips, back, or chest. Get help right away if: You have weakness or numbness in your legs. You cannot control urination or your bowel movements (incontinence). You have chills or a fever. Summary The prostate is a small gland that is involved in the production of semen. It is located below a man's bladder, in front of the rectum. Prostate cancer is the abnormal growth of cells in the prostate gland. Treatment for this condition depends on the stage of the cancer, your age, personal preferences, and your overall health. Talk with your health care provider about treatment options that are recommended for you. Consider joining a support group for men who have prostate cancer. Meeting with a support group may help you learn to manage the stress of having cancer. This information is not intended to replace advice given to you by your health care provider. Make sure you discuss any questions you have with your health care provider. Document Revised: 04/21/2021 Document Reviewed: 04/21/2021 [employer] Patient Education 2023 Caregivers. Follow Up Care 05/22/2023 12:03:30 With:CORNELIO ROSARIO, Yosef Bunch, URL Address: [address] [place], [place] [id number]- When: Unknown [facility] 11-24-2023 Note Patient Education Oncology Prostate Cancer The prostate is a small gland that produces fluid that makes up semen (seminal fluid). It is located below the bladder in men, in front of the rectum. Prostate cancer is the abnormal growth of cells in the prostate gland. What are the causes? The exact cause of this condition is not known. What increases the risk? You are more likely to develop this condition if: ? You are 65 years of age or older. ? You have a family history of prostate cancer. ? You have a family history of breast and ovarian cancer. ? You have genes that are passed from parent to child (inherited), such as BRCA1 and BRCA2. ? You have Ascencio syndrome. men and men of descent are diagnosed with prostate cancer at higher rates than other men. The reasons for this are not well understood and are likely due to a combination of genetic and environmental factors. What are the signs or symptoms? Symptoms of this condition include: ? Problems with urination. This may include: ? A weak or interrupted flow of urine. ? Trouble starting or stopping urination. ? Trouble emptying the bladder all the way. ? The need to urinate more often, especially at night. ? Blood in urine or semen. ? Persistent pain or discomfort in the lower back, lower abdomen, or hips. ? Trouble getting an erection. ? Weakness or numbness in the legs or feet. How is this diagnosed? This condition can be diagnosed with: ? A digital rectal exam. For this exam, a health care provider inserts a gloved finger into the rectum to feel the prostate gland. ? A blood test called a prostate-specific antigen (PSA) test. ? A procedure in which a sample of tissue is taken from the prostate and checked under a microscope (prostate biopsy). ? An imaging test called transrectal ultrasonography. Once the condition is diagnosed, tests will be done to determine how far the cancer has spread. This is called staging the cancer. Staging may involve imaging tests, such as a bone scan, CT scan, PET scan, or MRI. Stages of prostate cancer The stages of prostate cancer are as follows: ? Stage 1 (I). At this stage, the cancer is found in the prostate only. The cancer is not visible on imaging tests, and it is usually found by accident, such as during prostate surgery. ? Stage 2 (II). At this stage, the cancer is more advanced than it is in stage 1, but the cancer has not spread outside the prostate. ? Stage 3 (III). At this stage, the cancer has spread beyond the outer layer of the prostate to nearby tissues. The cancer may be found in the seminal vesicles, which are near the bladder and the prostate. ? Stage 4 (IV). At this stage, the cancer has spread to other parts of the body, such as the lymph nodes, bones, bladder, rectum, liver, or lungs. Prostate cancer grading Prostate cancer is also graded according to how the cancer cells look under a microscope. This is called the Lefors score and the total score can range from 6?10, indicating how likely it is that the cancer will spread (metastasize) to other parts of the body. The higher the score, the greater the likelihood that the cancer will spread. ? Coreen 6 or lower: This indicates that the cancer cells look similar to normal prostate cells (well differentiated). ? Lefors 7: This indicates that the cancer cells look somewhat similar to normal prostate cells (moderately differentiated). ? Lefors 8, 9, or 10: This indicates that the cancer cells look very different than normal prostate cells (poorly differentiated). How is this treated? Treatment for this condition depends on several factors, including the stage of the cancer, your age, personal preferences, and your overall health. Talk with your health care provider about treatment options that are recommended for you. Common treatments include: ? Observation for early stage prostate cancer (active surveillance). This involves having exams, blood tests, and in some cases, more biopsies. For some men, this is the only treatment needed. ? Surgery. Types of surgeries include: ? Open surgery (radical prostatectomy). In this surgery, a larger incision is made to remove the prostate. ? A laparoscopic radical prostatectomy. This is a surgery to remove the prostate and lymph nodes through several small incisions. It is often referred to as a minimally invasive surgery. ? A robotic radical prostatectomy. This is laparoscopic surgery to remove the prostate and lymph nodes with the help of robotic arms that are controlled by the surgeon. ? Cryoablation. This is surgery to freeze and destroy cancer cells. ? Radiation treatment. Types of radiation treatment include: ? External beam radiation. This type aims beams of radiation from outside the body at the prostate to destroy cancerous cells. ? Brachytherapy. This type uses radioactive needles, seeds, wires, or tubes that are implanted into the prostate gla (more content not included)... [facility] 11-16-2023 History of Present illness Narrative Radiation Oncology - Follow Up Note PATIENT NAME: Adolph Johns PATIENT DIAGNOSIS: Prostate adenocarcinoma, initial PSA 7.5, biopsy Lefors score 4 + 3 = 7 (grade group 3), pathologic stage T2c, N0, M0, stage IIC [T1-T2, N0, M0, PSA <20, GG 3] (AJCC 8th ed.), s/p prostatectomy January 2016. With recent rising PSA , hematuria and bladder mass status post transurethral resection pathology consistent with metastatic/recurrent adenocarcinoma prostate. RADIATION SUMMARY: DATES OF TREATMENT: 12/14/2022- 02/02/2023 AREA TREATED: Pelvis DELIVERED DOSE: Area: Pelvis Prostate bed Bladder Base 4600 cGy in 23 fractions, 3 Arcs, IMRT, 10 MV with daily CBCT Area: Pelvic Boost 1 1400 cGy in 7 fractions, 3 Arcs, IMRT, 10 MV with daily CBCT Area: Boost 2 1000 cGy in 5 fractions, 2 Arcs, IMRT, 10 MV with daily CBCT TOTAL: 7000cGy in 35 fractions ELAPSED TIME: 50 days. INTERVAL HISTORY: The patient presents for routine follow-up . Doing well. Denies significant problems. PSA HISTORY: PSA (ng/mL) Date Value 11/09/2023 <0.02 05/08/2023 <0.02 01/19/2023 <0.02 12/08/2022 1.37 ALLERGIES Allergen Reactions Penicillins Rash, Swelling Teramycin [Oxytetra* Unknown calcium carbonate/vitamin D3 (CALCIUM WITH VITAMIN D3 ORAL) Take 1 tablet by mouth once daily. lisinopril-hydrochlorothiazide (PRINZIDE,ZESTORETIC) 10-12.5 mg per tablet Take 1 tablet by mouth once daily. abiraterone 250 mg tablet Take 4 tablets by mouth once daily. predniSONE (DELTASONE) 5 mg tablet Take 1 tablet by mouth once daily. REVIEW OF SYSTEMS: D/N = 4-6/ Hematuria: none Dysuria: none Incontinence: none Urgency: none Catheter use: none Medications to aid urination: no - Total AUA Score: 6 Bowel movement frequency: 1/day Bowel movement quality: normal Blood per rectum: none Androgen deprivation: Lupron/abiraterone/prednisone PHYSICAL EXAM: 11/16/23 1413 BP: 124/73 Pulse: 93 Resp: 18 Temp: (!) 35.9 C (96.7 F) SpO2: 94% Weight: 118.6 kg (261 lb 7.5 oz) KPS: 100 General Appearance: Alert and oriented. No acute distress. Rectal exam is deferred. ASSESSMENT/PLAN: Prostate adenocarcinoma, initial PSA 7.5, biopsy Lefors score 4 + 3 = 7 (grade group 3), pathologic stage T2c, N0, M0, stage IIC [T1-T2, N0, M0, PSA <20, GG 3] (AJCC 8th ed.), s/p prostatectomy January 2016. With recent rising PSA , hematuria and bladder mass status post transurethral resection pathology consistent with metastatic/recurrent adenocarcinoma prostate. Status post pelvic/prostate bed radiation completed 02/02/23 and ADT. Overall doing well. PSA remains undetectable. No significant posttreatment problems. Plan to see patient back in 6 months. He has continued follow-up with medical oncology. Signed by: David Kumari MD cc: Shahriar Stephenson [address] [place] [address] No referring provider defined for this encounter. documented in this encounter [facility] 11-16-2023 Note HNO ID: [id number] Author: David KUMARI MD Service: ? Author Type: Physician Type: Progress Notes Filed: 11/24/2023 14:26 Note Text: Radiation Oncology - Follow Up Note PATIENT NAME: Adolph Johns PATIENT DIAGNOSIS: Prostate adenocarcinoma, initial PSA 7.5, biopsy Coreen score 4 + 3 = 7 (grade group 3), pathologic stage T2c, N0, M0, stage IIC [T1-T2, N0, M0, PSA <20, GG 3] (AJCC 8th ed.), s/p prostatectomy January 2016. With recent rising PSA , hematuria and bladder mass status post transurethral resection pathology consistent with metastatic/recurrent adenocarcinoma prostate. RADIATION SUMMARY: DATES OF TREATMENT: 12/14/2022- 02/02/2023 AREA TREATED: Pelvis DELIVERED DOSE: Area: Pelvis Prostate bed Bladder Base 4600 cGy in 23 fractions, 3 Arcs, IMRT, 10 MV with daily CBCT Area: Pelvic Boost 1 1400 cGy in 7 fractions, 3 Arcs, IMRT, 10 MV with daily CBCT Area: Boost 2 1000 cGy in 5 fractions, 2 Arcs, IMRT, 10 MV with daily CBCT TOTAL: 7000cGy in 35 fractions ELAPSED TIME: 50 days. INTERVAL HISTORY: The patient presents for routine follow-up . Doing well. Denies significant problems. PSA HISTORY: PSA (ng/mL) Date Value 11/09/2023 <0.02 05/08/2023 <0.02 01/19/2023 <0.02 12/08/2022 1.37 ALLERGIES Allergen Reactions Penicillins Rash, Swelling Teramycin [Oxytetra* Unknown calcium carbonate/vitamin D3 (CALCIUM WITH VITAMIN D3 ORAL) Take 1 tablet by mouth once daily. lisinopril-hydrochlorothiazide (PRINZIDE,ZESTORETIC) 10-12.5 mg per tablet Take 1 tablet by mouth once daily. abiraterone 250 mg tablet Take 4 tablets by mouth once daily. predniSONE (DELTASONE) 5 mg tablet Take 1 tablet by mouth once daily. REVIEW OF SYSTEMS: D/N = 4-07/07 Hematuria: none Dysuria: none Incontinence: none Urgency: none Catheter use: none Medications to aid urination: no - Total AUA Score: 6 Bowel movement frequency: 1/day Bowel movement quality: normal Blood per rectum: none Androgen deprivation: Lupron/abiraterone/prednisone PHYSICAL EXAM: 11/16/23 1413 BP: 124/73 Pulse: 93 Resp: 18 Temp: (!) 35.9 ?C (96.7 ?F) SpO2: 94% Weight: 118.6 kg (261 lb 7.5 oz) KPS: 100 General Appearance: Alert and oriented. No acute distress. Rectal exam is deferred. ASSESSMENT/PLAN: Prostate adenocarcinoma, initial PSA 7.5, biopsy Coreen score 4 + 3 = 7 (grade group 3), pathologic stage T2c, N0, M0, stage IIC [T1-T2, N0, M0, PSA <20, GG 3] (AJCC 8th ed.), s/p prostatectomy January 2016. With recent rising PSA , hematuria and bladder mass status post transurethral resection pathology consistent with metastatic/recurrent adenocarcinoma prostate. Status post pelvic/prostate bed radiation completed 02/02/23 and ADT. Overall doing well. PSA remains undetectable. No significant posttreatment problems. Plan to see patient back in 6 months. He has continued follow-up with medical oncology. Signed by: David Kumari MD cc: Shahriar Stephenson [address] [place] [address] No referring provider defined for this encounter. [facility] 11-16-2023 Nurse Note AUJesse 6 Peggy Lakhani RN [facility] 11-16-2023 Nurse Note JACK 6 Peggy Lakhani RN documented in this encounter [facility] 11-15-2023 Note HNO ID: [id number] Author: NICOLAS HWANG MD Service: ? Author Type: Physician Type: Progress Notes Filed: 11/16/2023 21:31 Note Text: PATIENT NAME: Adolph Johns DATE: 11/16/2023 PRIMARY CARE PHYSICIAN: Dr. René Stephenson OTHER PHYSICIANS: Dr. Grimes, Dr. Kumari Portions of this encounter note have been copied from the note from 05/18/2023 and has been updated where appropriate, and reflect my current medical decision making from today. CC: This is a 78 year old male with a history of MGUS and recurrent prostate cancer, seen for scheduled follow-up. INTERIM HISTORY: Since the patient's last visit here he has had no significant medical changes. He remains on abiraterone 1000 mg plus prednisone 5 mg daily and is tolerating it well. He also remains on Eligard every [address] Grimes. Overall feels well today with no particular complaints. No difficulties with urination. He plans to travel to [place] next week where he plans to spend the winter. MEDICATIONS: abiraterone 250 mg tablet Take 4 tablets by mouth once daily. predniSONE (DELTASONE) 5 mg tablet Take 1 tablet by mouth once daily. calcium carbonate/vitamin D3 (CALCIUM WITH VITAMIN D3 ORAL) Take 1 tablet by mouth once daily. lisinopril-hydrochlorothiazide (PRINZIDE,ZESTORETIC) 10-12.5 mg per tablet Take 1 tablet by mouth once daily. ALLERGIES: Penicillins and Teramycin [Oxytetracycline] PAST MEDICAL HISTORY: PAST MEDICAL HISTORY Diagnosis Date HTN (hypertension) MGUS (monoclonal gammopathy of unknown significance) Prostate cancer (HCC) PAST SURGICAL HISTORY: PAST SURGICAL HISTORY Procedure Laterality Date COLONOSCOPY 2013 RADICAL PROSTATECTOMY REVIEW OF SYSTEMS: General: No weight loss, malaise or fevers. HEENT: Negative for frequent or significant headaches. No changes in hearing or vision, no nose bleeds or other nasal problems. Respiratory: Negative for cough, wheezing or shortness of breath. Cardiovascular: Negative for chest pain, leg swelling or palpitations. GI: Negative for abdominal discomfort, blood in stools or black stools or change in bowel habits. : No history of dysuria, frequency or incontinence. Musculoskeletal: Negative for: joint pain or swelling, back pain and muscle pain. Skin: Negative for lesions, rash and itching. Hematology/Lymphology: Negative for prolonged bleeding, bruising easily or swollen nodes. Neuro: No history of headaches, syncope, paralysis, seizures or tremors. PHYSICAL EXAM: Vitals: BP 124/73 Pulse 93 Temp (!) 35.9 ?C (96.7 ?F) (Temporal) Resp 18 Ht 193 cm (6' 3.98 ) Wt 118.5 kg (261 lb 3.9 oz) SpO2 94% BMI 31.81 kg/m? ECOG 0 Exam limited to gross visualization where appropriate due to COVID-19. Gen.: This is an age-appropriate patient in no acute distress. Head: Appears atraumatic with no visible lesions. Eyes: Pupils equally round and reactive to light, extraocular muscles are intact. Neck: Supple. Mouth: Masked. Respiratory: Appears to be respiring comfortably. Neurologic: Nonfocal to gross visualization. Alert and oriented ?3. Psychiatric: No evidence of inappropriate anxiety or depression. Skin: Visible areas of skin without rash, lesions, wounds or petechiae. PATHOLOGY: 11/10/2022 Bladder tumor, TURBT ([facility]) Metastatic poorly differentiated adenocarcinoma, consistent with prostate primary. LABORATORY DATA: Hemoglobin (g/dL) Date Value 11/16/2023 13.7 10/29/2020 15.8 Hematocrit (%) Date Value 11/16/2023 40.6 10/29/2020 46.8 WBC (k/uL) Date Value 11/16/2023 8.11 10/29/2020 6.85 Platelet Count (k/uL) Date Value 11/16/2023 191 10/29/2020 162 PSA 11/11/2019 0.06 10/05/2020 0.05 09/14/2021 <0.13 09/26/2022 2.05 12/08/2022 1.37 01/19/2023 <0.02 05/08/2023 <0.02 11/09/2023 <0.02 RADIOLOGY/OTHER STUDIES: 11/28/2022 MRI prostate IMPRESSION: Recurrent mass arising/extending from the right vas deferens remanent with adjacent conglomerate RIGHT pelvic lymphadenopathy, as detailed in the report. Additional groin lymph nodes suspicious for metastases, particularly the lymph node adjacent to the RIGHT spermatic cord. 10/28/2022 PSMA PET scan IMPRESSION: HEAD/NECK: * No PSMA-expressing lesions suspicious for metastases. CHEST: * No PSMA-expressing lesions suspicious for metastases. ABDOMENS/PELVIS: * Status post prostatectomy with PSMA-expressing local recurrence and conglomerate RIGHT pelvic sidewall tracer avid lymphadenopathy, as described. * Indeterminate, prominent size, mildly tracer avid RIGHT groin lymph nodes BONES/SOFT TISSUES: * No PSMA-expressing lesions suspicious for metastases. 11/06/2019 CT RIGHT FEMUR IMPRESSION: No suspect bone lesion. No comparison study. 10/28/2019 Skeletal survey ([facility]) Subtle oval slightly lytic-appearing lesion within the right femoral neck, nonspecific and may represent summation ar (more content not included)... [facility] 11-15-2023 History of Present illness Narrative PATIENT NAME: Adolph Johns DATE: 11/16/2023 PRIMARY CARE PHYSICIAN: Dr. René Stephenson OTHER PHYSICIANS: Dr. Grimes, Dr. Kumari Portions of this encounter note have been copied from the note from 05/18/2023 and has been updated where appropriate, and reflect my current medical decision making from today. CC: This is a 78 year old male with a history of MGUS and recurrent prostate cancer, seen for scheduled follow-up. INTERIM HISTORY: Since the patient's last visit here he has had no significant medical changes. He remains on abiraterone 1000 mg plus prednisone 5 mg daily and is tolerating it well. He also remains on Eligard every [address] Grimes. Overall feels well today with no particular complaints. No difficulties with urination. He plans to travel to [place] next week where he plans to spend the winter. MEDICATIONS: abiraterone 250 mg tablet Take 4 tablets by mouth once daily. predniSONE (DELTASONE) 5 mg tablet Take 1 tablet by mouth once daily. calcium carbonate/vitamin D3 (CALCIUM WITH VITAMIN D3 ORAL) Take 1 tablet by mouth once daily. lisinopril-hydrochlorothiazide (PRINZIDE,ZESTORETIC) 10-12.5 mg per tablet Take 1 tablet by mouth once daily. ALLERGIES: Penicillins and Teramycin [Oxytetracycline] PAST MEDICAL HISTORY: PAST MEDICAL HISTORY Diagnosis Date HTN (hypertension) MGUS (monoclonal gammopathy of unknown significance) Prostate cancer (HCC) PAST SURGICAL HISTORY: PAST SURGICAL HISTORY Procedure Laterality Date COLONOSCOPY 2013 RADICAL PROSTATECTOMY REVIEW OF SYSTEMS: General: No weight loss, malaise or fevers. HEENT: Negative for frequent or significant headaches. No changes in hearing or vision, no nose bleeds or other nasal problems. Respiratory: Negative for cough, wheezing or shortness of breath. Cardiovascular: Negative for chest pain, leg swelling or palpitations. GI: Negative for abdominal discomfort, blood in stools or black stools or change in bowel habits. : No history of dysuria, frequency or incontinence. Musculoskeletal: Negative for: joint pain or swelling, back pain and muscle pain. Skin: Negative for lesions, rash and itching. Hematology/Lymphology: Negative for prolonged bleeding, bruising easily or swollen nodes. Neuro: No history of headaches, syncope, paralysis, seizures or tremors. PHYSICAL EXAM: Vitals: BP 124/73 Pulse 93 Temp (!) 35.9 C (96.7 F) (Temporal) Resp 18 Ht 193 cm (6' 3.98 ) Wt 118.5 kg (261 lb 3.9 oz) SpO2 94% BMI 31.81 kg/m ECOG 0 Exam limited to gross visualization where appropriate due to COVID-19. Gen.: This is an age-appropriate patient in no acute distress. Head: Appears atraumatic with no visible lesions. Eyes: Pupils equally round and reactive to light, extraocular muscles are intact. Neck: Supple. Mouth: Masked. Respiratory: Appears to be respiring comfortably. Neurologic: Nonfocal to gross visualization. Alert and oriented 3. Psychiatric: No evidence of inappropriate anxiety or depression. Skin: Visible areas of skin without rash, lesions, wounds or petechiae. PATHOLOGY: 11/10/2022 Bladder tumor, TURBT ([facility]) Metastatic poorly differentiated adenocarcinoma, consistent with prostate primary. LABORATORY DATA: Hemoglobin (g/dL) Date Value 11/16/2023 13.7 10/29/2020 15.8 Hematocrit (%) Date Value 11/16/2023 40.6 10/29/2020 46.8 WBC (k/uL) Date Value 11/16/2023 8.11 10/29/2020 6.85 Platelet Count (k/uL) Date Value 11/16/2023 191 10/29/2020 162 PSA 11/11/2019 0.06 10/05/2020 0.05 09/14/2021 <0.13 09/26/2022 2.05 12/08/2022 1.37 01/19/2023 <0.02 05/08/2023 <0.02 11/09/2023 <0.02 RADIOLOGY/OTHER STUDIES: 11/28/2022 MRI prostate IMPRESSION: Recurrent mass arising/extending from the right vas deferens remanent with adjacent conglomerate RIGHT pelvic lymphadenopathy, as detailed in the report. Additional groin lymph nodes suspicious for metastases, particularly the lymph node adjacent to the RIGHT spermatic cord. 10/28/2022 PSMA PET scan IMPRESSION: HEAD/NECK: * No PSMA-expressing lesions suspicious for metastases. CHEST: * No PSMA-expressing lesions suspicious for metastases. ABDOMENS/PELVIS: * Status post prostatectomy with PSMA-expressing local recurrence and conglomerate RIGHT pelvic sidewall tracer avid lymphadenopathy, as described. * Indeterminate, prominent size, mildly tracer avid RIGHT groin lymph nodes BONES/SOFT TISSUES: * No PSMA-expressing lesions suspicious for metastases. 11/06/2019 CT RIGHT FEMUR IMPRESSION: No suspect bone lesion. No comparison study. 10/28/2019 Skeletal survey ([facility]) Subtle oval slightly lytic-appearing lesion within the right femoral neck, nonspecific and may represent summation artifact. No additional findings of the skeletal structures to suggest ASSESSMENT/PLAN: 1. Prostate cancer (HCC) - ICD9: 185, ICD10: C61 (primary diagnosis) Early stage adenocarcinoma of the prostate diagnosed December 2015. Status post radical prostatectomy 01/07/2016. Postop the patient's PSA became undetectable. However, by September 2022 his PSA increased to 2.05. PSMA PET scan 10/28/2022 revealed recurrent disease in the prostate gland plus regional lymph nodes. The patient developed hematuria, and cystoscopy performed 11/01/2022 revealed a 2 cm tumor involving the central trigone of the bladder neck. He underwent repeat cystoscopy with TURBT on 11/10/2022. Pathology on the resected specimen confirmed metastatic poorly differentiated adenocarcinoma consistent with prostate primary. Pelvic MRI 11/28/2022 consistent with recurrent mass arising/extending from the right vas deferens remanent with adjacent conglomerate RIGHT pelvic lymphadenopathy and inguinal adenopathy. Per urology he was started on Casodex October 2022, and ADT with Eligard given 12/02/2022. When seen 12/08/2022 it was elected to change Casodex to abiraterone/prednisone. The patient received involved field radiation therapy 12/14/2022 through 02/02/2023. Currently the patient is clinically stable and minimally symptomatic. PSA has been undetectable since January 2023. At this time he will continue as is with abiraterone/prednisone. He will continue Eligard every [address] Grimes. I will see him back in May 2024 after he returns from [place] to [place]. 2. Monoclonal gammopathy - ICD9: 273.1, ICD10: D47.2 M spike initially discovered September 2019 during evaluation for renal insufficiency and proteinuria. Laboratory evaluation 10/24/2019 revealed a low level monoclonal IgG lambda and IgM lambda. Other than renal insufficiency (which appears to be chronic), the patient had no evidence of end organ damage. He was diagnosed with MGUS and routine follow-up recommended. Will monitor labs every 6 months. Further evaluation as indicated if labs worsen significantly. 3. Essential hypertension Stable on current medications. Continue management per PCP/nephrology 4. Chronic renal insufficiency, stage 3 (moderate) Continue management per PCP/nephrology. Nicolas Hwang MD documented in this encounter [facility] 10-23-2023 Note Patient Education Nutrition BMI for Adults Body mass index (BMI) is a number found using a person's weight and height. BMI can help tell how much of a person's weight is made up of fat. BMI does not measure body fat directly. It is used instead of tests that directly measure body fat, which can be difficult and expensive. What are BMI measurements used for? BMI is useful to: ? Find out if your weight puts you at higher risk for medical problems. ? Help recommend changes, such as in diet and exercise. This can help you reach a healthy weight. BMI screening can be done again to see if these changes are working. How is BMI calculated? Your height and weight are measured. The BMI is found from those numbers. This can be done with [place] or metric measurements. Note that charts and online BMI calculators are available to help you find your BMI quickly and easily without doing these calculations. To calculate your BMI in [place] measurements: 1. Measure your weight in pounds (lb). 2. Multiply the number of pounds by 703. ? So, for an adult who weighs 150 lb, multiply that number by 703: 150 x 703, which equals 105,450. 3. Measure your height in inches. Then multiply that number by itself to get a measurement called inches squared. ? So, for an adult who is 70 inches tall, the inches squared measurement is 70 inches x 70 inches, which equals 4,900 inches squared. 4. Divide the total from step 2 (number of lb x 703) by the total from step 3 (inches squared): 105,450 ? 4,900 = 21.5. This is your BMI. To calculate your BMI in metric measurements: 1. Measure your weight in kilograms (kg). ? For this example, the weight is 70 kg. 2. Measure your height in meters (m). Then multiply that number by itself to get a measurement called meters squared. ? So, for an adult who is 1.75 m tall, the meters squared measurement is 1.75 m x 1.75 m, which equals 3.1 meters squared. 3. Divide the number of kilograms (your weight) by the meters squared number. In this example: 70 ? 3.1 = 22.6. This is your BMI. What do the results mean? BMI charts are used to see if you are underweight, normal weight, overweight, or obese. The following guidelines will be used: ? Underweight: BMI less than 18.5. ? Normal weight: BMI between 18.5 and 24.9. ? Overweight: BMI between 25 and 29.9. ? Obese: BMI of 30 or above. BMI is a tool and cannot diagnose a condition. Talk with your health care provider about what your BMI means for you. Keep these notes in mind: ? Weight includes fat and muscle. Someone with a muscular build, such as an athlete, may have a BMI that is higher than 24.9. In cases like these, BMI is not a correct measure of body fat. ? If you have a BMI of 25 or higher, your provider may need to do more testing to find out if excess body fat is the cause. ? BMI is measured the same way for males and females. Females usually have more body fat than males of the same height and weight. Where to find more information For more information about BMI, including tools to quickly find your BMI, go to: ? Centers for Disease Control and Prevention: cdc.gov ? [place] [employer]: heart.org ? National Heart, Lung, and [employer] [place]: nhlbi.nih.gov This information is not intended to replace advice given to you by your health care provider. Make sure you discuss any questions you have with your health care provider. Document Revised: 10/13/2022 Document Reviewed: 10/06/2022 Elsevier Patient Education ? 2023 Caregivers. DASH Eating Plan DASH stands for Dietary Approaches to Stop Hypertension. The DASH eating plan is a healthy eating plan that has been shown to: ? Lower high blood pressure (hypertension). ? Reduce your risk for type 2 diabetes, heart disease, and stroke. ? Help with weight loss. What are tips for following this plan? Reading food labels ? Check food labels for the amount of salt (sodium) per serving. Choose foods with less than 5 percent of the Daily Value (DV) of sodium. In general, foods with less than 300 milligrams (mg) of sodium per serving fit into this eating plan. ? To find whole grains, look for the word whole as the first word in the ingredient list. Shopping ? Buy products labeled as low-sodium or no salt added. ? Buy fresh foods. Avoid canned foods and pre-made or frozen meals. Cooking ? Try not to add salt when you cook. Use salt-free seasonings or herbs instead of table salt or sea salt. Check with your health care provider or pharmacist before using salt substitutes. ? Do not rudd foods. Cook foods in healthy ways, such as baking, boiling, grilling, roasting, or broiling. ? Cook using oils that are good for your heart. These include olive, canola, avocado, soybean, and sunflower oil. Meal planning ? Eat a balanced diet. This should include: ? 4 or more servings of fruits and 4 or more servings of vegetables each day (more content not included)... [facility] 05-22-2023 Hospital Discharge instructions Patient Education 05/22/2023 11:59:50 Hormone Suppression Therapy for Prostate Cancer Hormone Suppression Therapy for Prostate Cancer Hormone suppression therapy is a treatment for prostate cancer that can help slow the growth of cancer cells in the prostate gland. It is also called androgen deprivation therapy (ADT) or androgen suppression therapy. Hormone suppression therapy targets male sex hormones (androgens) in the body that help cancer cells grow. Hormone suppression therapy alone will not cure prostate cancer, but it can slow the growth of cancer cells and may shrink tumors over time. Your health care provider can help you find the best treatment that fits your lifestyle. Hormone suppression therapy may be used in the following cases: When prostate cancer has spread too far to other places in the body and cannot be cured by surgery or radiation. When a person has health problems that prevent the use of surgery or radiation. Before radiation to help shrink the size of the cancer and make the radiation treatment more effective. If the prostate cancer remains or comes back following treatment with surgery or radiation. What are the types of hormone suppression therapy? Orchiectomy Orchiectomy, also called surgical castration, is a surgery to remove one or both testicles. The testicles make the two main androgens testosterone and dihydrotestosterone (DHT). This surgery reduces the levels of testosterone in the blood, leading to decreased androgen production. Medicine therapy Medicine therapy, also called medical or chemical castration, involves taking medicines to keep your body from making or using androgens. Medicines can do this in one of three ways: 1.Reducing androgen production by the testicles. Luteinizing hormone-releasing hormone (LHRH) agonists. These medicines are injected or implanted under your skin to lower the amount of androgens that your testicles make. Depending on the medicine, they can be given monthly or up to every 3 to 6 months. If you take these medicines, you may also be prescribed other medicines to help with side effects. LHRH antagonists. These medicines also work to lower the amount of androgens made in the testicles, but they work faster than LHRH agonist medicines and have less severe side effects. They are given as a monthly injection under the skin, and they are used when prostate cancer is in an advanced stage. Estrogens. These medicines are female hormones that help to reduce androgen production by the testicles. Estrogens are not used as commonly as other types of hormone suppression therapy due to their side effects. However, they may be used if other treatments do not work. 2.Blocking androgen attachment throughout the body. Anti-androgen medicines, also called androgen receptor antagonists, block areas on the body where androgens attach. These are pills that are usually used in combination with other types of hormone suppression therapy, like orchiectomy and other medicines. 3.Blocking androgen production throughout the body. Androgen synthesis inhibitor medicines. These medicines help to stop other areas of the body from making androgens. They are taken as pills. They may be used if the prostate cancer is advanced and has not gotten better with surgery or other medicines. A steroid medicine may be given with this type of medicine to help with side effects. What are the risks? Hormone suppression therapy may cause side effects, including: Hot flashes. Diarrhea and nausea. Itching. Sexual side effects, such as: ?Decrease or lack of sexual desire. ?Decrease in size of the penis or testicles. ?Inability to get an erection (erectile dysfunction, or impotence). ?Breast tenderness or increase in breast size. Fatigue. Weight gain. Anemia. Thinning of the bones (osteoporosis) and loss of muscle mass. Depression, mood swings, and trouble with thinking or focusing. Hormone suppression therapy may also increase your risk of high blood pressure, increased cholesterol levels, stroke, heart attack, or diabetes. What are the benefits? One of the main benefits of hormone suppression therapy is having additional treatment options. You may have only one type of treatment, or two or more types at the same time. Treatments may be combined to: Help with side effects. Treat advanced cancer. Where to find more information [place] [employer]: www.cancer.org National Cancer [place]: www.cancer.gov Contact a health care provider if: You have pain or side effects that do not get better with treatment. You have trouble urinating. You have new side effects that do not go away. Get help right away if: You have severe chest pain. You have trouble breathing. You have an irregular heartbeat. You have numbness or paralysis in the lower half of your body. You are confused. You have trouble talking or understanding speech. These symptoms may be an emergency. Do not wait to see if the symptoms will go away. Get medical help right away. Call your local emergency services (911 in the [place] Do not drive yourself to the hospital. Summary Hormone suppression therapy is a treatment for prostate cancer that can help to slow the growth of cancer cells in the prostate gland. Hormone suppression therapy alone will not cure prostate cancer, but it can slow the growth of prostate cancer and may shrink tumors over time. Treatment to suppress hormones may include surgery or medicines. Side effects such as hot flashes, changes in sexual function or desire, and weakened bones can result from hormone suppression therapy. This information is not intended to replace advice given to you by your health care provider. Make sure you discuss any questions you have with your health care provider. Document Revised: 05/06/2021 Document Reviewed: 05/06/2021 [employer] Patient Education 2022 Caregivers. Follow Up Care 12/02/2022 13:08:27 With:CORNELIO ROSARIO, Yosef Bunch, URL Address: [facility] [address], [place] [id number]- [phone] When: Unknown Comments:6 mos w/ PSA (gets level from [facility]) [facility] 05-18-2023 History of Present illness Narrative Radiation Oncology - Follow Up Note PATIENT NAME: Adolph Johns PATIENT DIAGNOSIS: Prostate adenocarcinoma, initial PSA 7.5, biopsy Lefors score 4 + 3 = 7 (grade group 3), pathologic stage T2c, N0, M0, stage IIC [T1-T2, N0, M0, PSA <20, GG 3] (AJCC 8th ed.), s/p prostatectomy January 2016. With recent rising PSA , hematuria and bladder mass status post transurethral resection pathology consistent with metastatic/recurrent adenocarcinoma prostate. RADIATION SUMMARY: DATES OF TREATMENT: 12/14/2022- 02/02/2023 AREA TREATED: Pelvis DELIVERED DOSE: Area: Pelvis Prostate bed Bladder Base 4600 cGy in 23 fractions, 3 Arcs, IMRT, 10 MV with daily CBCT Area: Pelvic Boost 1 1400 cGy in 7 fractions, 3 Arcs, IMRT, 10 MV with daily CBCT Area: Boost 2 1000 cGy in 5 fractions, 2 Arcs, IMRT, 10 MV with daily CBCT TOTAL: 7000cGy in 35 fractions ELAPSED TIME: 50 days. INTERVAL HISTORY: The patient presents for routine follow-up . Overall doing well. PSA HISTORY: PSA (ng/mL) Date Value 05/08/2023 <0.02 01/19/2023 <0.02 12/08/2022 1.37 ALLERGIES Allergen Reactions Penicillins Rash, Swelling Teramycin [Oxytetra* Unknown abiraterone 250 mg tablet Take 4 tablets by mouth once daily. predniSONE (DELTASONE) 5 mg tablet Take 1 tablet by mouth once daily. calcium carbonate/vitamin D3 (CALCIUM WITH VITAMIN D3 ORAL) Take 1 tablet by mouth once daily. lisinopril-hydrochlorothiazide (PRINZIDE,ZESTORETIC) 10-12.5 mg per tablet Take 1 tablet by mouth once daily. REVIEW OF SYSTEMS: D/N = 4-07/07 Hematuria: none Dysuria: none Incontinence: none Urgency: none Catheter use: none Medications to aid urination: no - Total AUA Score: 5 Bowel movement frequency: 1/day Bowel movement quality: normal Blood per rectum: none Androgen deprivation: lupron PHYSICAL EXAM: 05/18/23 Weight 115.8 kg (255 lb 4.7 oz) BSA 0 BMI 0 Temp 36.1 C (97 F) Pulse 84 Resp 18 BP 144/74 SpO2 94 % KPS: 100 General Appearance: Alert and oriented. No acute distress. Rectal exam is deferred. ASSESSMENT/PLAN: Prostate adenocarcinoma, initial PSA 7.5, biopsy Lefors score 4 + 3 = 7 (grade group 3), pathologic stage T2c, N0, M0, stage IIC [T1-T2, N0, M0, PSA <20, GG 3] (AJCC 8th ed.), s/p prostatectomy January 2016. With recent rising PSA , hematuria and bladder mass status post transurethral resection pathology consistent with metastatic/recurrent adenocarcinoma prostate. Overall doing well. PSA undetectable. No significant posttreatment problems. Plan to see patient back in 6 months. Patient has continued follow-up with his urologist oncology. Signed by: David Kumari MD cc: Shahriar Stephenson [address] [place] [id number] No referring provider defined for this encounter. documented in this encounter [facility] 05-18-2023 Note HNO ID: [id number] Author: David KUMARI MD Service: ? Author Type: Physician Type: Progress Notes Filed: 05/25/2023 15:02 Note Text: Radiation Oncology - Follow Up Note PATIENT NAME: Adolph Johns PATIENT DIAGNOSIS: Prostate adenocarcinoma, initial PSA 7.5, biopsy Lefors score 4 + 3 = 7 (grade group 3), pathologic stage T2c, N0, M0, stage IIC [T1-T2, N0, M0, PSA <20, GG 3] (AJCC 8th ed.), s/p prostatectomy January 2016. With recent rising PSA , hematuria and bladder mass status post transurethral resection pathology consistent with metastatic/recurrent adenocarcinoma prostate. RADIATION SUMMARY: DATES OF TREATMENT: 12/14/2022- 02/02/2023 AREA TREATED: Pelvis DELIVERED DOSE: Area: Pelvis Prostate bed Bladder Base 4600 cGy in 23 fractions, 3 Arcs, IMRT, 10 MV with daily CBCT Area: Pelvic Boost 1 1400 cGy in 7 fractions, 3 Arcs, IMRT, 10 MV with daily CBCT Area: Boost 2 1000 cGy in 5 fractions, 2 Arcs, IMRT, 10 MV with daily CBCT TOTAL: 7000cGy in 35 fractions ELAPSED TIME: 50 days. INTERVAL HISTORY: The patient presents for routine follow-up . Overall doing well. PSA HISTORY: PSA (ng/mL) Date Value 05/08/2023 <0.02 01/19/2023 <0.02 12/08/2022 1.37 ALLERGIES Allergen Reactions Penicillins Rash, Swelling Teramycin [Oxytetra* Unknown abiraterone 250 mg tablet Take 4 tablets by mouth once daily. predniSONE (DELTASONE) 5 mg tablet Take 1 tablet by mouth once daily. calcium carbonate/vitamin D3 (CALCIUM WITH VITAMIN D3 ORAL) Take 1 tablet by mouth once daily. lisinopril-hydrochlorothiazide (PRINZIDE,ZESTORETIC) 10-12.5 mg per tablet Take 1 tablet by mouth once daily. REVIEW OF SYSTEMS: D/N = 4-6/ Hematuria: none Dysuria: none Incontinence: none Urgency: none Catheter use: none Medications to aid urination: no - Total AUA Score: 5 Bowel movement frequency: 1/day Bowel movement quality: normal Blood per rectum: none Androgen deprivation: lupron PHYSICAL EXAM: 05/18/23 Weight 115.8 kg (255 lb 4.7 oz) BSA 0 BMI 0 Temp 36.1 ?C (97 ?F) Pulse 84 Resp 18 BP 144/74 SpO2 94 % KPS: 100 General Appearance: Alert and oriented. No acute distress. Rectal exam is deferred. ASSESSMENT/PLAN: Prostate adenocarcinoma, initial PSA 7.5, biopsy Lefors score 4 + 3 = 7 (grade group 3), pathologic stage T2c, N0, M0, stage IIC [T1-T2, N0, M0, PSA <20, GG 3] (AJCC 8th ed.), s/p prostatectomy January 2016. With recent rising PSA , hematuria and bladder mass status post transurethral resection pathology consistent with metastatic/recurrent adenocarcinoma prostate. Overall doing well. PSA undetectable. No significant posttreatment problems. Plan to see patient back in 6 months. Patient has continued follow-up with his urologist oncology. Signed by: David Kumari MD cc: Shahriar Stephenson [address] [place] [address] No referring provider defined for this encounter. [facility] 05-18-2023 Nurse Note AUA 5 Peggy Lakhani RN documented in this encounter [facility] 05-18-2023 Note HNO ID: [id number] Author: ELIO PAYNE APRN.TOY ASSEMBLER Service: ? Author Type: Nurse Practitioner Type: Progress Notes Filed: 05/19/2023 10:23 Note Text: PATIENT NAME: Adolph Johns DATE: 05/18/2023 PRIMARY CARE PHYSICIAN: Dr. Chanel OTHER PHYSICIANS: , Dr. Grimes Portions of this encounter note have been copied from the note from 12/08/2022 and has been updated where appropriate, and reflect my current medical decision making from today. CC: This is a 77 year old male with a history of MGUS and recently diagnosed recurrent prostate cancer, seen for scheduled follow-up. INTERIM HISTORY: Adolph Johns returns for scheduled follow-up. Since his last visit he received radiation to his pelvis prostate bed and bladder base 12/14/2022 through 02/02/2023. He tolerated radiation treatment well. He remains on treatment with abiraterone 1000 mg plus prednisone 5 mg daily and is tolerating it well. He does complain of some fatigue. He is scheduled to see Dr. Grimes, urology, on 05/22/2023. MEDICATIONS: abiraterone 250 mg tablet Take 4 tablets by mouth once daily. predniSONE (DELTASONE) 5 mg tablet Take 1 tablet by mouth once daily. calcium carbonate/vitamin D3 (CALCIUM WITH VITAMIN D3 ORAL) Take 1 tablet by mouth once daily. lisinopril-hydrochlorothiazide (PRINZIDE,ZESTORETIC) 10-12.5 mg per tablet Take 1 tablet by mouth once daily. potassium chloride (K-TAB) 10 mEq tablet Take 1 tablet by mouth once daily. (Patient not taking: Reported on 01/09/2023) loperamide HCl (IMODIUM A-D ORAL) Take by mouth. acetaminophen (TYLENOL EXTRA STRENGTH) 500 mg tablet Take 1,000 mg by mouth every 12 hours. ALLERGIES: Penicillins and Teramycin [Oxytetracycline] PAST MEDICAL HISTORY: PAST MEDICAL HISTORY Diagnosis Date HTN (hypertension) MGUS (monoclonal gammopathy of unknown significance) Prostate cancer (HCC) PAST SURGICAL HISTORY: PAST SURGICAL HISTORY Procedure Laterality Date COLONOSCOPY 2013 RADICAL PROSTATECTOMY REVIEW OF SYSTEMS: General: No weight loss, malaise or fevers. HEENT: Negative for frequent or significant headaches. No changes in hearing or vision, no nose bleeds or other nasal problems. Respiratory: Negative for cough, wheezing or shortness of breath. Cardiovascular: Negative for chest pain, leg swelling or palpitations. GI: Negative for abdominal discomfort, blood in stools or black stools or change in bowel habits. : No history of dysuria, frequency or incontinence. Musculoskeletal: Negative for: joint pain or swelling, back pain and muscle pain. Skin: Negative for lesions, rash and itching. Hematology/Lymphology: Negative for prolonged bleeding, bruising easily or swollen nodes. Neuro: No history of headaches, syncope, paralysis, seizures or tremors. PHYSICAL EXAM: Vitals: BP 144/74 Pulse 84 Temp 36.1 ?C (97 ?F) (Temporal) Resp 18 Wt 115.8 kg (255 lb 4.7 oz) SpO2 94% BMI 31.09 kg/m? ECOG 0 Exam limited to gross visualization where appropriate due to COVID-19. Gen.: This is an age-appropriate patient in no acute distress. Head: Appears atraumatic with no visible lesions. Eyes: Pupils equally round and reactive to light, extraocular muscles are intact. Neck: Supple. Mouth: Masked. Respiratory: Appears to be respiring comfortably. Neurologic: Nonfocal to gross visualization. Alert and oriented ?3. Psychiatric: No evidence of inappropriate anxiety or depression. Skin: Visible areas of skin without rash, lesions, wounds or petechiae. PATHOLOGY: 11/10/2022 Bladder tumor, TURBT ([facility]) Metastatic poorly differentiated adenocarcinoma, consistent with prostate primary. LABORATORY DATA: Hemoglobin (g/dL) Date Value 05/18/2023 13.6 10/29/2020 15.8 Hematocrit (%) Date Value 05/18/2023 40.6 10/29/2020 46.8 WBC (k/uL) Date Value 05/18/2023 6.91 10/29/2020 6.85 Platelet Count (k/uL) Date Value 05/18/2023 158 10/29/2020 162 PSA 11/11/2019 0.06 10/05/2020 0.05 09/14/2021 <0.13 09/26/2022 2.05 12/08/2022 1.37 RADIOLOGY/OTHER STUDIES: 11/28/2022 MRI prostate IMPRESSION: Recurrent mass arising/extending from the right vas deferens remanent with adjacent conglomerate RIGHT pelvic lymphadenopathy, as detailed in the report. Additional groin lymph nodes suspicious for metastases, particularly the lymph node adjacent to the RIGHT spermatic cord. 10/28/2022 PSMA PET scan IMPRESSION: HEAD/NECK: * No PSMA-expressing lesions suspicious for metastases. CHEST: * No PSMA-expressing lesions suspicious for metastases. ABDOMENS/PELVIS: * Status post prostatectomy with PSMA-expressing local recurrence and conglomerate RIGHT pelvic sidewall tracer avid lymphadenopathy, as described. * Indeterminate, prominent size, mildly tracer avid RIGHT groin lymph nodes BONES/SOFT TISSUES: * No PSMA-expressing lesions suspicious for metastases. 11/06/2019 CT RIGHT FEMUR IMPRES (more content not included)... [facility] 05-18-2023 History of Present illness Narrative PATIENT NAME: Adolph Johns DATE: 05/18/2023 PRIMARY CARE PHYSICIAN: Dr. Chanel OTHER PHYSICIANS: , Dr. Grimes Portions of this encounter note have been copied from the note from 12/08/2022 and has been updated where appropriate, and reflect my current medical decision making from today. CC: This is a 77 year old male with a history of MGUS and recently diagnosed recurrent prostate cancer, seen for scheduled follow-up. INTERIM HISTORY: Adolph Johns returns for scheduled follow-up. Since his last visit he received radiation to his pelvis prostate bed and bladder base 12/14/2022 through 02/02/2023. He tolerated radiation treatment well. He remains on treatment with abiraterone 1000 mg plus prednisone 5 mg daily and is tolerating it well. He does complain of some fatigue. He is scheduled to see Dr. Grimes, urology, on 05/22/2023. MEDICATIONS: abiraterone 250 mg tablet Take 4 tablets by mouth once daily. predniSONE (DELTASONE) 5 mg tablet Take 1 tablet by mouth once daily. calcium carbonate/vitamin D3 (CALCIUM WITH VITAMIN D3 ORAL) Take 1 tablet by mouth once daily. lisinopril-hydrochlorothiazide (PRINZIDE,ZESTORETIC) 10-12.5 mg per tablet Take 1 tablet by mouth once daily. potassium chloride (K-TAB) 10 mEq tablet Take 1 tablet by mouth once daily. (Patient not taking: Reported on 01/09/2023) loperamide HCl (IMODIUM A-D ORAL) Take by mouth. acetaminophen (TYLENOL EXTRA STRENGTH) 500 mg tablet Take 1,000 mg by mouth every 12 hours. ALLERGIES: Penicillins and Teramycin [Oxytetracycline] PAST MEDICAL HISTORY: PAST MEDICAL HISTORY Diagnosis Date HTN (hypertension) MGUS (monoclonal gammopathy of unknown significance) Prostate cancer (HCC) PAST SURGICAL HISTORY: PAST SURGICAL HISTORY Procedure Laterality Date COLONOSCOPY 2013 RADICAL PROSTATECTOMY REVIEW OF SYSTEMS: General: No weight loss, malaise or fevers. HEENT: Negative for frequent or significant headaches. No changes in hearing or vision, no nose bleeds or other nasal problems. Respiratory: Negative for cough, wheezing or shortness of breath. Cardiovascular: Negative for chest pain, leg swelling or palpitations. GI: Negative for abdominal discomfort, blood in stools or black stools or change in bowel habits. : No history of dysuria, frequency or incontinence. Musculoskeletal: Negative for: joint pain or swelling, back pain and muscle pain. Skin: Negative for lesions, rash and itching. Hematology/Lymphology: Negative for prolonged bleeding, bruising easily or swollen nodes. Neuro: No history of headaches, syncope, paralysis, seizures or tremors. PHYSICAL EXAM: Vitals: BP 144/74 Pulse 84 Temp 36.1 C (97 F) (Temporal) Resp 18 Wt 115.8 kg (255 lb 4.7 oz) SpO2 94% BMI 31.09 kg/m ECOG 0 Exam limited to gross visualization where appropriate due to COVID-19. Gen.: This is an age-appropriate patient in no acute distress. Head: Appears atraumatic with no visible lesions. Eyes: Pupils equally round and reactive to light, extraocular muscles are intact. Neck: Supple. Mouth: Masked. Respiratory: Appears to be respiring comfortably. Neurologic: Nonfocal to gross visualization. Alert and oriented 3. Psychiatric: No evidence of inappropriate anxiety or depression. Skin: Visible areas of skin without rash, lesions, wounds or petechiae. PATHOLOGY: 11[facility]10/2022 [facility] [facility]) Metastatic poorly differentiated adenocarcinoma, consistent with prostate primary. LABORATORY DATA: Hemoglobin (g/dL) Date Value 05/18/2023 13.6 10/29/2020 15.8 Hematocrit (%) Date Value 05/18/2023 40.6 10/29/2020 46.8 WBC (k/uL) Date Value 05/18/2023 6.91 10/29/2020 6.85 Platelet Count (k/uL) Date Value 05/18/2023 158 10/29/2020 162 PSA 11/11/2019 0.06 10/05/2020 0.05 09/14/2021 <0.13 09/26/2022 2.05 12/08/2022 1.37 RADIOLOGY/OTHER STUDIES: 11/28/2022 MRI prostate IMPRESSION: Recurrent mass arising/extending from the right vas deferens remanent with adjacent conglomerate RIGHT pelvic lymphadenopathy, as detailed in the report. Additional groin lymph nodes suspicious for metastases, particularly the lymph node adjacent to the RIGHT spermatic cord. 10/28/2022 PSMA PET scan IMPRESSION: HEAD/NECK: * No PSMA-expressing lesions suspicious for metastases. CHEST: * No PSMA-expressing lesions suspicious for metastases. ABDOMENS/PELVIS: * Status post prostatectomy with PSMA-expressing local recurrence and conglomerate RIGHT pelvic sidewall tracer avid lymphadenopathy, as described. * Indeterminate, prominent size, mildly tracer avid RIGHT groin lymph nodes BONES/SOFT TISSUES: * No PSMA-expressing lesions suspicious for metastases. 11/06/2019 CT RIGHT FEMUR IMPRESSION: No suspect bone lesion. No comparison study. 10/28/2019 Skeletal survey ([facility]) Subtle oval slightly lytic-appearing lesion within the right femoral neck, nonspecific and may represent summation artifact. No additional findings of the skeletal structures to suggest ASSESSMENT/PLAN: 1. Prostate cancer (HCC) - ICD9: 185, ICD10: C61 (primary diagnosis) Early stage adenocarcinoma of the prostate diagnosed December 2015. Status post radical prostatectomy 01/07/2016. Postop the patient's PSA became undetectable. However, by September 2022 his PSA increased to 2.05. PSMA PET scan 10/28/2022 revealed recurrent disease in the prostate gland plus regional lymph nodes. The patient developed hematuria, and cystoscopy performed 11/01/2022 revealed a 2 cm tumor involving the central trigone of the bladder neck. He underwent repeat cystoscopy with TURBT on 11/10/2022. Pathology on the resected specimen confirmed metastatic poorly differentiated adenocarcinoma consistent with prostate primary. Pelvic MRI 11/28/2022 consistent with recurrent mass arising/extending from the right vas deferens remanent with adjacent conglomerate RIGHT pelvic lymphadenopathy and inguinal adenopathy. Per urology he was started on Casodex 50 mg daily October 2022, and ADT with Eligard given 12/02/2022. When seen 12/08/2022 it was elected to change Casodex to abiraterone/prednisone. Involved field radiation therapy started 12/14/2022, with plans to finish on 02/02/2023. Currently the patient is clinically stable and minimally symptomatic. At this time the patient will continue as is with abiraterone/prednisone. He will continue Eligard every 6 months, next injection due per Dr. Grimes May 2023. At this time we will continue with routine follow-ups and see the patient back in 6 months with labs. 2. Monoclonal gammopathy - ICD9: 273.1, ICD10: D47.2 M spike initially discovered September 2019 during evaluation for renal insufficiency and proteinuria. Laboratory evaluation 10/24/2019 revealed a low level monoclonal IgG lambda and IgM lambda. Other than renal insufficiency (which appears to be chronic), the patient had no evidence of end organ damage. He was diagnosed with MGUS and routine follow-up recommended. Will monitor labs every 6 months. Further evaluation as indicated if labs worsen significantly. 3. Essential hypertension Stable on current medications. Continue management per PCP/nephrology 4. Chronic renal insufficiency, stage 3 (moderate) Continue management per PCP/nephrology. Elio Payne APRN.CNP CC: Dr. Cook, Dr. Cornelio Nesbitt spent a total of 30 minutes on the date of the service which included preparing to see the patient, [id number] patient care, completing clinical documentation, obtaining and/or reviewing separately obtained history, performing a medically appropriate examination, counseling and educating the patient/family/caregiver, ordering medications, tests, or procedures, independently interpreting results (not separately reported), and communicating results to the patient/family/caregiver. documented in this encounter [facility] 05-08-2023 Miscellaneous Notes Patient coming in 05/18/23 for follow up with labs. Please add lab orders. Bettina El MA documented in this encounter [facility] 02-02-2023 Note HNO ID: [id number] Author: David KUMARI MD Service: ? Author Type: Physician Type: Progress Notes Filed: 02/15/2023 16:16 Note Text: [facility] Radiation Oncology Department RADIATION ONCOLOGY - COMPLETION NOTE PATIENT: JB JOHNS: 1945 DATES OF TREATMENT: 12/14/2022- 02/02/2023 DIAGNOSIS: Prostate adenocarcinoma, initial PSA 7.5, biopsy Lefors score 4 + 3 = 7 (grade group 3), pathologic stage T2c, N0, M0, stage IIC [T1-T2, N0, M0, PSA <20, GG 3] (AJCC 8th ed.), s/p prostatectomy January 2016. With recent rising PSA , hematuria and bladder mass status post transurethral resection pathology consistent with metastatic/recurrent adenocarcinoma prostate. AREA TREATED: Pelvis DELIVERED DOSE: Area: Pelvis Prostate bed Bladder Base 4600 cGy in 23 fractions, 3 Arcs, IMRT, 10 MV with daily CBCT Area: Pelvic Boost 1 1400 cGy in 7 fractions, 3 Arcs, IMRT, 10 MV with daily CBCT Area: Boost 2 1000 cGy in 5 fractions, 2 Arcs, IMRT, 10 MV with daily CBCT TOTAL: 7000cGy in 35 fractions ELAPSED TIME: 50 days. CLINICAL SUMMARY: The patient tolerated radiation with mild radiation related cystitis, diarrhea and fatigue. No other issues. Imaging showed a very good tumor response. The patient was able to complete treatment as intended without break interruption or modification of prescription plan. The disease response will be assessed in clinic. The patient will be seen again in 3 months for postradiation follow-up. Staff Physician Damien Kumari M.D. / KIYA 44:16 PM Electronically Signed cc: Dr. Stephenson, Dr. Hwang [facility] 01-31-2023 Note HNO ID: [id number] Author: David Kumari MD Service: ? Author Type: Physician Type: Progress Notes Filed: 02/01/2023 8:36 AM Note Text: Radiation Oncology - On Treatment Review (OTR) Note PATIENT NAME: Adolph Johns PATIENT DIAGNOSIS: Prostate adenocarcinoma, initial PSA 7.5, biopsy Lefors score 4 + 3 = 7 (grade group 3), pathologic stage T2c, N0, M0, stage IIC [T1-T2, N0, M0, PSA <20, GG 3] (AJCC 8th ed.), s/p prostatectomy January 2016. With recent rising PSA , hematuria and bladder mass status post transurethral resection pathology consistent with metastatic/recurrent adenocarcinoma prostate. COURSE: definitive and salvage Current dose: 6600 cGy in 33 fx Planned dose: 7000 cGy in 35 fx and possible boost SUBJECTIVE: Doing well. No significant diarrhea. Bladder sxs stable. PHYSICAL EXAM: 01/31/23 1129 BP: 101/66 Pulse: 79 Resp: 16 Temp: 36.3 ?C (97.3 ?F) SpO2: 95% Weight: 109.9 kg (242 lb 4.6 oz) KPS: 100 General Appearance: Alert and oriented. No acute distress. Skin: Small area of actinic keratosis right arm versus small squamous of carcinoma. Near area of previous excision IMAGING/LAB RESULTS: PSA (ng/mL) Date Value 01/19/2023 <0.02 12/08/2022 1.37 Hemoglobin (g/dL) Date Value 01/19/2023 14.9 10/29/2020 15.8 Hematocrit (%) Date Value 01/19/2023 43.8 10/29/2020 46.8 WBC (k/uL) Date Value 01/19/2023 7.94 10/29/2020 6.85 Platelet Count (k/uL) Date Value 01/19/2023 145 10/29/2020 162 TOXICITY ASSESSMENT (CTC v4.0): Fatigue:grade 1 - Fatigue relieved by rest Radiation Dermatitis: grade 0 - No symptoms Diarrhea:grade 1 Proctitis: grade 0 - No symptoms Urinary frequency: grade 1 Dysuria: grade 0 - No symptoms Urinary incontinence: grade 0 (No symptoms) Urinary retention: grade 0 - No symptoms Treatment chart checked: Yes Patient treatment site reviewed and verified:Yes Port films reviewed and current:Yes Medications started: None ASSESSMENT/PLAN: Overall doing well. Chart and imaging reviewed. Continue radiation as outlined. Finishes this week, follow up care discussed and arranged. David Kumari MD [facility] 01-26-2023 Note HNO ID: [id number] Author: David Kumari MD Service: ? Author Type: Physician Type: Progress Notes Filed: 01/26/2023 11:22 AM Note Text: Boost set up films reviewed [facility] 01-26-2023 History of Present illness Narrative Boost set up films reviewed documented in this encounter [facility] 01-23-2023 Note HNO ID: [id number] Author: David Kumari MD Service: ? Author Type: Physician Type: Progress Notes Filed: 01/23/2023 2:27 PM Note Text: Radiation Oncology - On Treatment Review (OTR) Note PATIENT NAME: Adolph Johns PATIENT DIAGNOSIS: Prostate adenocarcinoma, initial PSA 7.5, biopsy Lefors score 4 + 3 = 7 (grade group 3), pathologic stage T2c, N0, M0, stage IIC [T1-T2, N0, M0, PSA <20, GG 3] (AJCC 8th ed.), s/p prostatectomy January 2016. With recent rising PSA , hematuria and bladder mass status post transurethral resection pathology consistent with metastatic/recurrent adenocarcinoma prostate. COURSE: definitive and salvage Current dose: 5600 cGy in 28 fx Planned dose: 7000 cGy in 35 fx and possible boost SUBJECTIVE: Still with significant bladder urgency also stable . Mild diarrhea using Imodium stable. PHYSICAL EXAM: 01/23/23 1134 BP: (P) 110/71 Pulse: (P) 65 Resp: (P) 18 Temp: (P) 36.4 ?C (97.5 ?F) SpO2: (P) 96% Weight: (P) 109.4 kg (241 lb 2.9 oz) KPS: 100 General Appearance: Alert and oriented. No acute distress. Skin: Small area of actinic keratosis right arm versus small squamous of carcinoma. Near area of previous excision IMAGING/LAB RESULTS: Hemoglobin (g/dL) Date Value 01/19/2023 14.9 10/29/2020 15.8 Hematocrit (%) Date Value 01/19/2023 43.8 10/29/2020 46.8 WBC (k/uL) Date Value 01/19/2023 7.94 10/29/2020 6.85 Platelet Count (k/uL) Date Value 01/19/2023 145 10/29/2020 162 TOXICITY ASSESSMENT (CTC v4.0): Fatigue:grade 1 - Fatigue relieved by rest Radiation Dermatitis: grade 0 - No symptoms Diarrhea:grade 1 Proctitis: grade 0 - No symptoms Urinary frequency: grade 1 Dysuria: grade 0 - No symptoms Urinary incontinence: grade 0 (No symptoms) Urinary retention: grade 0 - No symptoms Treatment chart checked: Yes Patient treatment site reviewed and verified:Yes Port films reviewed and current:Yes Medications started: None ASSESSMENT/PLAN: Overall doing well. Chart and imaging reviewed. Continue radiation as outlined. David Kumari MD [facility] 01-17-2023 History of Present illness Narrative Boost reese reviewed. documented in this encounter [facility] 01-16-2023 History of Present illness Narrative Images from the original note were not included. Radiation Oncology - On Treatment Review (OTR) Note PATIENT NAME: Adolph Johns PATIENT DIAGNOSIS: Prostate adenocarcinoma, initial PSA 7.5, biopsy Lefors score 4 + 3 = 7 (grade group 3), pathologic stage T2c, N0, M0, stage IIC [T1-T2, N0, M0, PSA <20, GG 3] (AJCC 8th ed.), s/p prostatectomy January 2016. With recent rising PSA , hematuria and bladder mass status post transurethral resection pathology consistent with metastatic/recurrent adenocarcinoma prostate. COURSE: definitive and salvage Current dose: 4600 cGy in 23 fx Planned dose: 7000 cGy in 35 fx and possible boost SUBJECTIVE: Overall doing well. Mild diarrhea using Imodium every third or fourth day. No other issues. PHYSICAL EXAM: 01/16/23 1220 BP: 114/74 Pulse: 66 Resp: 18 Temp: 36.3 C (97.4 F) SpO2: 96% Weight: 109.3 kg (241 lb) KPS: 100 General Appearance: Alert and oriented. No acute distress. Skin: Small area of actinic keratosis right arm versus small squamous of carcinoma. Near area of previous excision IMAGING/LAB RESULTS: Hemoglobin (g/dL) Date Value 01/05/2023 15.0 10/29/2020 15.8 Hematocrit (%) Date Value 01/05/2023 44.5 10/29/2020 46.8 WBC (k/uL) Date Value 01/05/2023 7.97 10/29/2020 6.85 Platelet Count (k/uL) Date Value 01/05/2023 100 10/29/2020 162 TOXICITY ASSESSMENT (CTC v4.0): Fatigue:grade 1 - Fatigue relieved by rest Radiation Dermatitis: grade 0 - No symptoms Diarrhea:grade 1 Proctitis: grade 0 - No symptoms Urinary frequency: grade 1 Dysuria: grade 0 - No symptoms Urinary incontinence: grade 0 (No symptoms) Urinary retention: grade 0 - No symptoms Treatment chart checked: Yes Patient treatment site reviewed and verified:Yes Port films reviewed and current:Yes Medications started: None ASSESSMENT/PLAN: Overall doing well. Boost will start tomorrow. Chart and imaging reviewed. Continue radiation as outlined. David Kumari MD documented in this encounter [facility] 01-11-2023 History of Present illness Narrative ADOLPH JOHNS [id number] 01/11/2023 [facility] Department of Radiation Oncology Treatment Planning Note For reasons stated in the consult note, Adolph Johns is a candidate for radiation therapy. Due to tumor size decrease a replan with repeat planning CT was necessary. Based on review and interpretation of the relevant diagnostic studies together with the exam findings, Adolph Johns was simulated on 01/11/2023 at which time the target volume and/or requisite reese were delineated, as indicated in the simulation note, to be treated according to the prescription. The treatment target and organs at risk were contoured on the simulation scan using the fused MRI . After reviewing multiple treatment plans with dosimetry, the best plan was approved to deliver the prescribed course of radiation to the target area using inverse planning to allow for the best isodose distribution, treating to the 97.2% isodose line with 10MV and 3 reese. Custom MLC asym jaws for IMRT were the treatment devices used to shape/modify the beams. Limiting dose to normal tissue was confirmed upon review of the calculated dose volume histogram. IMRT planning was used because it best met the dose/volume constraints for the organs at risk for this patient, better than what could be achieved using conventional or 3D planning. The specific dose requirements for the PTV, organs at risk and dose-volume histograms are contained in this treatment plan and/or elsewhere in the medical record. A completed summary of this plan dated 01/16/2023 incorporated herein by reference includes dose, beam arrangements, energy, blocking, isodose distribution, and/or ports and DVH. Electronically Signed Damien Kumari M.D. 31:35 PM documented in this encounter [facility] 01-09-2023 Miscellaneous Notes I notified Adolph of Dr. Hwang's recommendation to contact his Dr. Stephenson, PCP, abut his hypokalemia. Adolph will call PCP as recommended. He denies further questions at this time. I faxed 01/05/[address] Stephenson. Yuko Barahona RN Hypokalemia is a condition unrelated to his prostate cancer and MGUS. Perhaps best to follow-up with his PCP for recommendations. Sienna, B Adolph is here for radiation therapy and said on 01/06/23 Dr. Hwang prescribed oral potatssium 10 mEq. 01/05/23 potassium level 3.1. He said he took one tablet Romero afternoon and developed weakness, lightheadedness, nausea, diarrhea, and slow heart rate. He said he did not call the office nor be seen by urgent care or ER. He denies any of the above symptoms today. He said he stopped taking the potassium and looked up potassium rich foods which he is adding to his diet. Adolph's next follow up with Dr. Hwang/Elio is 05/18/23. Please advise. Yuko Barahona RN documented in this encounter [facility] 01-06-2023 Miscellaneous Notes The following approved medication requests have been transmitted electronically. Requested Prescriptions Signed Prescriptions Disp Refills potassium chloride (K-TAB) 10 mEq tablet 30 tablet 3 Sig: Take 1 tablet by mouth once daily. Authorizing Provider: ELIO PAYNE APRN.CNP Mr. Johns notified of low potassium and recommendation to start potassium supplement. Patient in agreement and states that she has started a potassium rich diet. Pt would like script sent to [facility] Jose. Elio: Please review and sign pending order. Thanks! Jessica Amezquita RN ----- Message from Nicolas Hwang MD sent at 01/06/2023 7:58 AM EST ----- Please inform the patient that his potassium is slightly low. Possibly from his Zestoretic or abiraterone/prednisone. Would recommend potassium supplement with 10 mEq 1 daily. documented in this encounter [facility] 01-05-2023 History of Present illness Narrative PATIENT NAME: Adolph Johns DATE: 01/05/2023 PRIMARY CARE PHYSICIAN: Dr. Chanel OTHER PHYSICIANS: , Dr. Grimes Portions of this encounter note have been copied from the note from 12/08/2022 and has been updated where appropriate, and reflect my current medical decision making from today. CC: This is a 77 year old male with a history of MGUS and recently diagnosed recurrent prostate cancer, seen for scheduled follow-up. INTERIM HISTORY: Since the patient's last visit here he discontinued Casodex, and his antiandrogen which changed to abiraterone 1000 mg plus prednisone 5 mg daily. He appears to be tolerating these medications well. Involved field radiation therapy was started on 12/14/2022, and the patient appears to be tolerating treatment well. Since his last visit his bladder biopsy was reviewed by [facility] pathology, and the diagnosis of poorly differentiated adenocarcinoma of the prostate was confirmed. On follow-up today the patient feels fairly well with no particular complaints. MEDICATIONS: loperamide HCl (IMODIUM A-D ORAL) Take by mouth. acetaminophen (TYLENOL EXTRA STRENGTH) 500 mg tablet Take 1,000 mg by mouth every 12 hours. abiraterone 250 mg tablet Take 4 tablets by mouth once daily. predniSONE (DELTASONE) 5 mg tablet Take 1 tablet by mouth once daily. calcium carbonate/vitamin D3 (CALCIUM WITH VITAMIN D3 ORAL) Take 1 tablet by mouth once daily. lisinopril-hydrochlorothiazide (PRINZIDE,ZESTORETIC) 10-12.5 mg per tablet Take 1 tablet by mouth once daily. ALLERGIES: Penicillins and Teramycin [Oxytetracycline] PAST MEDICAL HISTORY: PAST MEDICAL HISTORY Diagnosis Date HTN (hypertension) MGUS (monoclonal gammopathy of unknown significance) Prostate cancer (HCC) PAST SURGICAL HISTORY: PAST SURGICAL HISTORY Procedure Laterality Date COLONOSCOPY 2013 RADICAL PROSTATECTOMY REVIEW OF SYSTEMS: General: No weight loss, malaise or fevers. HEENT: Negative for frequent or significant headaches. No changes in hearing or vision, no nose bleeds or other nasal problems. Respiratory: Negative for cough, wheezing or shortness of breath. Cardiovascular: Negative for chest pain, leg swelling or palpitations. GI: Negative for abdominal discomfort, blood in stools or black stools or change in bowel habits. : No history of dysuria, frequency or incontinence. Musculoskeletal: Negative for: joint pain or swelling, back pain and muscle pain. Skin: Negative for lesions, rash and itching. Hematology/Lymphology: Negative for prolonged bleeding, bruising easily or swollen nodes. Neuro: No history of headaches, syncope, paralysis, seizures or tremors. PHYSICAL EXAM: Vitals: BP 124/70 Pulse 60 Temp 36.1 C (97 F) (Temporal) Resp 16 Ht 193 cm (6' 3.98 ) Wt 109.8 kg (242 lb) SpO2 94% BMI 29.47 kg/m ECOG 0 Exam limited to gross visualization where appropriate due to COVID-19. Gen.: This is an age-appropriate patient in no acute distress. Head: Appears atraumatic with no visible lesions. Eyes: Pupils equally round and reactive to light, extraocular muscles are intact. Neck: Supple. Mouth: Masked. Respiratory: Appears to be respiring comfortably. Neurologic: Nonfocal to gross visualization. Alert and oriented 3. Psychiatric: No evidence of inappropriate anxiety or depression. Skin: Visible areas of skin without rash, lesions, wounds or petechiae. PATHOLOGY: 11/10/2022 Bladder tumor, TURBT ([facility]) Metastatic poorly differentiated adenocarcinoma, consistent with prostate primary. LABORATORY DATA: Hemoglobin (g/dL) Date Value 01/05/2023 15.0 10/29/2020 15.8 Hematocrit (%) Date Value 01/05/2023 44.5 10/29/2020 46.8 WBC (k/uL) Date Value 01/05/2023 7.97 10/29/2020 6.85 Platelet Count (k/uL) Date Value 01/05/2023 100 10/29/2020 162 PSA 11/11/2019 0.06 10/05/2020 0.05 09/14/2021 <0.13 09/26/2022 2.05 12/08/2022 1.37 RADIOLOGY/OTHER STUDIES: 11/28/2022 MRI prostate IMPRESSION: Recurrent mass arising/extending from the right vas deferens remanent with adjacent conglomerate RIGHT pelvic lymphadenopathy, as detailed in the report. Additional groin lymph nodes suspicious for metastases, particularly the lymph node adjacent to the RIGHT spermatic cord. 10/28/2022 PSMA PET scan IMPRESSION: HEAD/NECK: * No PSMA-expressing lesions suspicious for metastases. CHEST: * No PSMA-expressing lesions suspicious for metastases. ABDOMENS/PELVIS: * Status post prostatectomy with PSMA-expressing local recurrence and conglomerate RIGHT pelvic sidewall tracer avid lymphadenopathy, as described. * Indeterminate, prominent size, mildly tracer avid RIGHT groin lymph nodes BONES/SOFT TISSUES: * No PSMA-expressing lesions suspicious for metastases. 11/06/2019 CT RIGHT FEMUR IMPRESSION: No suspect bone lesion. No comparison study. 10/28/2019 Skeletal survey ([facility]) Subtle oval slightly lytic-appearing lesion within the right femoral neck, nonspecific and may represent summation artifact. No additional findings of the skeletal structures to suggest ASSESSMENT/PLAN: 1. Prostate cancer (HCC) - ICD9: 185, ICD10: C61 (primary diagnosis) Early stage adenocarcinoma of the prostate diagnosed December 2015. Status post radical prostatectomy 01/07/2016. Postop the patient's PSA became undetectable. However, by September 2022 his PSA increased to 2.05. PSMA PET scan 10/28/2022 revealed recurrent disease in the prostate gland plus regional lymph nodes. The patient developed hematuria, and cystoscopy performed 11/01/2022 revealed a 2 cm tumor involving the central trigone of the bladder neck. He underwent repeat cystoscopy with TURBT on 11/10/2022. Pathology on the resected specimen confirmed metastatic poorly differentiated adenocarcinoma consistent with prostate primary. Pelvic MRI 11/28/2022 consistent with recurrent mass arising/extending from the right vas deferens remanent with adjacent conglomerate RIGHT pelvic lymphadenopathy and inguinal adenopathy. Per urology he was started on Casodex 50 mg daily October 2022, and ADT with Eligard given 12/02/2022. When seen 12/08/2022 it was elected to change Casodex to abiraterone/prednisone. Involved field radiation therapy started 12/14/2022, with plans to finish on 02/04/2023. Currently the patient is clinically stable and minimally symptomatic. At this time the patient will continue as is with abiraterone/prednisone. He will continue radiation as scheduled. He will continue Eligard every 6 months, next injection due per Dr. Grimes May 2023. The patient plans to spend the winter in [place] after radiation is completed. I will see him back in May 2023 when he returns to [place]. 2. Monoclonal gammopathy - ICD9: 273.1, ICD10: D47.2 M spike initially discovered September 2019 during evaluation for renal insufficiency and proteinuria. Laboratory evaluation 10/24/2019 revealed a low level monoclonal IgG lambda and IgM lambda. Other than renal insufficiency (which appears to be chronic), the patient had no evidence of end organ damage. He was diagnosed with MGUS and routine follow-up recommended. Will monitor labs every 6 months. Further evaluation as indicated if labs worsen significantly. 3. Essential hypertension Stable on current medications. Continue management per PCP/nephrology 4. Chronic renal insufficiency, stage 3 (moderate) Continue management per PCP/nephrology. Nicolas Hwang MD CC: Dr. Cook, Dr. Grimes documented in this encounter [facility] 01-02-2023 History of Present illness Narrative Radiation Oncology - On Treatment Review (OTR) Note PATIENT NAME: Adolph Johns PATIENT DIAGNOSIS: Prostate adenocarcinoma, initial PSA 7.5, biopsy Lefors score 4 + 3 = 7 (grade group 3), pathologic stage T2c, N0, M0, stage IIC [T1-T2, N0, M0, PSA <20, GG 3] (AJCC 8th ed.), s/p prostatectomy January 2016. With recent rising PSA , hematuria and bladder mass status post transurethral resection pathology consistent with metastatic/recurrent adenocarcinoma prostate. COURSE: definitive and salvage Current dose: 2600 cGy in 13 fx Planned dose: 7000 cGy in 35 fx and possible boost SUBJECTIVE: Has had a couple episodes of diarrhea controlled with Imodium. Also episodes of increased urinary frequency, better over the last 24 to 48 hours. No hematuria although patient has tested with home kit showing some microscopic hematuria. No fever. No abdominal pain. PHYSICAL EXAM: 01/02/23 1222 BP: 112/75 Pulse: (!) 59 Resp: 16 Temp: 36.4 C (97.6 F) SpO2: 96% Weight: 110.1 kg (242 lb 12.8 oz) KPS: 100 General Appearance: Alert and oriented. No acute distress. Skin: Small area of actinic keratosis right arm versus small squamous of carcinoma. Near area of previous excision IMAGING/LAB RESULTS: Hemoglobin (g/dL) Date Value 12/22/2022 15.2 10/29/2020 15.8 Hematocrit (%) Date Value 12/22/2022 45.5 10/29/2020 46.8 WBC (k/uL) Date Value 12/22/2022 9.28 10/29/2020 6.85 Platelet Count (k/uL) Date Value 12/22/2022 166 10/29/2020 162 TOXICITY ASSESSMENT (CTC v4.0): Fatigue:grade 1 - Fatigue relieved by rest Radiation Dermatitis: grade 0 - No symptoms Diarrhea:grade 1 Proctitis: grade 0 - No symptoms Urinary frequency: grade 1 Dysuria: grade 0 - No symptoms Urinary incontinence: grade 0 (No symptoms) Urinary retention: grade 0 - No symptoms Treatment chart checked: Yes Patient treatment site reviewed and verified:Yes Port films reviewed and current:Yes Medications started: None ASSESSMENT/PLAN: Discussed Imodium use. Discussed possible addition of Detrol for urinary frequency. Chart and imaging reviewed. Continue radiation as outlined. David Kumari MD documented in this encounter [facility] 12-26-2022 History of Present illness Narrative Radiation Oncology - On Treatment Review (OTR) Note PATIENT NAME: Adolph Johns PATIENT DIAGNOSIS: Prostate adenocarcinoma, initial PSA 7.5, biopsy Lefors score 4 + 3 = 7 (grade group 3), pathologic stage T2c, N0, M0, stage IIC [T1-T2, N0, M0, PSA <20, GG 3] (AJCC 8th ed.), s/p prostatectomy January 2016. With recent rising PSA , hematuria and bladder mass status post transurethral resection pathology consistent with metastatic/recurrent adenocarcinoma prostate. COURSE: definitive and salvage Current dose: 2000 cGy in 10 fx Planned dose: 7000 cGy in 35 fx and possible boost SUBJECTIVE: No new problems. PHYSICAL EXAM: 12/26/22 1209 BP: 116/75 Pulse: 66 Resp: 16 Temp: 36.1 C (96.9 F) SpO2: 95% Weight: 111 kg (244 lb 12.8 oz) KPS: 100 General Appearance: Alert and oriented. No acute distress. Skin: Small area of actinic keratosis right arm versus small squamous of carcinoma. Near area of previous excision IMAGING/LAB RESULTS: None TOXICITY ASSESSMENT (CTC v4.0): Fatigue:grade 1 - Fatigue relieved by rest Radiation Dermatitis: grade 0 - No symptoms Diarrhea:grade 0 - No symptoms Proctitis: grade 0 - No symptoms Urinary frequency: grade 1 Dysuria: grade 0 - No symptoms Urinary incontinence: grade 0 (No symptoms) Urinary retention: grade 0 - No symptoms Treatment chart checked: Yes Patient treatment site reviewed and verified:Yes Port films reviewed and current:Yes Medications started: None ASSESSMENT/PLAN: Patient doing well. Imaging shows continued reduction in size of mass. Chart and imaging reviewed. Continue radiation as outlined. David Kumari MD documented in this encounter [facility] 12-22-2022 Nurse Note Adolph Johns presents in office today for: Lab Draw only . Ordering Provider: Damien Kumari M.D. Test (s) ordered: CBC Method for obtaining blood: Phlebotomy was performed, accessing left antecubital vein. Needle removed intact. Dressing secured. Patient denies discomfort, dizziness, light-headedness or weakness and left the department without assist. Yuko Barahona LPN documented in this encounter [facility] 12-19-2022 Miscellaneous Notes Patient is scheduled for 12/21/2022 at 10:30AM with Dr Leila Evans at [facility]. I called and let him know appt day and time. documented in this encounter [facility] 12-19-2022 History of Present illness Narrative Radiation Oncology - On Treatment Review (OTR) Note PATIENT NAME: Adolph Johns PATIENT DIAGNOSIS: Prostate adenocarcinoma, initial PSA 7.5, biopsy Coreen score 4 + 3 = 7 (grade group 3), pathologic stage T2c, N0, M0, stage IIC [T1-T2, N0, M0, PSA <20, GG 3] (AJCC 8th ed.), s/p prostatectomy January 2016. With recent rising PSA , hematuria and bladder mass status post transurethral resection pathology consistent with metastatic/recurrent adenocarcinoma prostate. COURSE: definitive and salvage Current dose: 800 cGy in 4 fx Planned dose: 7000 cGy in 35 fx and possible boost SUBJECTIVE: No new problems. PHYSICAL EXAM: KPS: 100 General Appearance: Alert and oriented. No acute distress. Skin: Small area of actinic keratosis right arm versus small squamous of carcinoma. Near area of previous excision IMAGING/LAB RESULTS: None TOXICITY ASSESSMENT (CTC v4.0): Fatigue:grade 1 - Fatigue relieved by rest Radiation Dermatitis: grade 0 - No symptoms Diarrhea:grade 0 - No symptoms Proctitis: grade 0 - No symptoms Urinary frequency: grade 1 Dysuria: grade 0 - No symptoms Urinary incontinence: grade 0 (No symptoms) Urinary retention: grade 0 - No symptoms Treatment chart checked: Yes Patient treatment site reviewed and verified:Yes Port films reviewed and current:Yes Medications started: None ASSESSMENT/PLAN: Patient doing well. Imaging shows slight reduction in size of mass. Patient with skin lesion unrelated we will have him see wheel borer. Chart and imaging reviewed. Continue radiation as outlined. David Kumari MD documented in this encounter [facility] 12-15-2022 Miscellaneous Notes ORAL ANTI-CANCER AGENTS FOLLOW-UP PHONE CALL/VISIT Patient identified by name and date of . YES Patient is on cycle 1, week 1, day 6 of Abiraterone (Zytiga) and Prednisone for Prostate Cancer. SYMPTOM ASSESSMENT Headache: No Visual Changes: No Dizziness: No Do you have any periods of confusion? No Mood changes: No Mouth or throat pain: No Appetite: no changes in appetite, appetite good Taste changes: No Nausea: No Vomiting: No Heartburn: No. Weight gain/loss: No Episodes of palpitations/chest discomfort/pressure/pain No Shortness of breath: No Cough: No Diarrhea: no Constipation: no Bladder/Urinary Changes: No new urinary symptoms. Pain: No=0 (pain 0 on a scale of 0-10). Fever: No Chills: No Cold sensitivity: No Numbness/weakness: No Edema: No Skin changes: No Itching: No Yellowing of skin or eyes: No Musculoskeletal/joint changes/issues No Bleeding issues: No Activity Level (0-100%): Rates his fatigue 3/10. Do you need to take naps? Yes; Do you wake up feeling rested? Yes Pt verbalizes correct dose and frequency of the Abiraterone & Prednisone Does the patient need interventions or same day appointment:No ADDITIONAL FOLLOW UP: The next outreach call is due on: Advised pt to call w/ any questions or concerns and was scheduled NA The following lab tests are due: CBC, CMP, Testosterone, PSA on 01/05/23 Verified patient is aware of next appointment in the cancer center: Yes. Verified patient verbalized how to correctly refill the oral agent prescription. Yes Does the patient have any financial difficulties affording this medication? No Patient verbalizes understanding of when to seek Medical Attention? YES Patient verbalizes understanding of after-hours and weekend phone number? YES Patient verbalized importance of medication compliance in taking the oral agent as prescribed. Patient instructed to call if unable to comply. Nancy Ray RN documented in this encounter [facility] 12-14-2022 History of Present illness Narrative Radiation Oncology - On Treatment Review (OTR) Note PATIENT NAME: Adolph Johns PATIENT DIAGNOSIS: Prostate adenocarcinoma, initial PSA 7.5, biopsy Lefors score 4 + 3 = 7 (grade group 3), pathologic stage T2c, N0, M0, stage IIC [T1-T2, N0, M0, PSA <20, GG 3] (AJCC 8th ed.), s/p prostatectomy January 2016. With recent rising PSA , hematuria and bladder mass status post transurethral resection pathology consistent with metastatic/recurrent adenocarcinoma prostate. COURSE: definitive and salvage Current dose: 200 cGy in 1 fx Planned dose: 7000 cGy in 35 fx and possible boost SUBJECTIVE: No new problems here to start radiation PHYSICAL EXAM: KPS: 100 General Appearance: Alert and oriented. No acute distress. IMAGING/LAB RESULTS: None TOXICITY ASSESSMENT (CTC v4.0): Fatigue:grade 1 - Fatigue relieved by rest Radiation Dermatitis: grade 0 - No symptoms Diarrhea:grade 0 - No symptoms Proctitis: grade 0 - No symptoms Urinary frequency: grade 1 Dysuria: grade 0 - No symptoms Urinary incontinence: grade 0 (No symptoms) Urinary retention: grade 0 - No symptoms Treatment chart checked: Yes Patient treatment site reviewed and verified:Yes Port films reviewed and current:Yes Medications started: None ASSESSMENT/PLAN: Patient starting radiation today. Plan of care and expectations again reviewed. Plan, MU calculations and qa report reviewed. Initial imaging including cone beam ct and verification reviewed and approved. First treatment given. Continue radiation as prescribed. David Kumari MD documented in this encounter [facility] 12-08-2022 History of Present illness Narrative ADOLPH JOHNS [id number] 12/08/2022 [facility] Department of Radiation Oncology Treatment Planning Note For reasons stated in the consult note, Adolph Johns is a candidate for radiation therapy. Based on review and interpretation of the relevant diagnostic studies together with the exam findings, Adolph Johns was simulated on 12/08/2022 at which time the target volume and/or requisite reese were delineated, as indicated in the simulation note, to be treated according to the prescription. The treatment target and organs at risk were contoured on the simulation scan using the fused MRI . After reviewing multiple treatment plans with dosimetry, the best plan was approved to deliver the prescribed course of radiation to the target area using inverse planning to allow for the best isodose distribution, treating to the 97.6% isodose line with 10MV and 3 reese. Custom MLC asym jaws for IMRT were the treatment devices used to shape/modify the beams. Limiting dose to normal tissue was confirmed upon review of the calculated dose volume histogram. IMRT planning was used because it best met the dose/volume constraints for the organs at risk for this patient, better than what could be achieved using conventional or 3D planning. The specific dose requirements for the PTV, organs at risk and dose-volume histograms are contained in this treatment plan and/or elsewhere in the medical record. A completed summary of this plan dated 12/13/2022 incorporated herein by reference includes dose, beam arrangements, energy, blocking, isodose distribution, and/or ports and DVH. Electronically Signed Damien Kumari M.D. :30 PM documented in this encounter [facility] 12-02-2022 Hospital Discharge instructions Patient Education 12/02/2022 12:56:34 Prostate Cancer Prostate Cancer The prostate is a small gland that produces fluid that makes up semen (seminal fluid). It is located below the bladder in men, in front of the rectum. Prostate cancer is the abnormal growth of cells in the prostate gland. What are the causes? The exact cause of this condition is not known. What increases the risk? You are more likely to develop this condition if: You are 65 years of age or older. You have a family history of prostate cancer. You have a family history of breast and ovarian cancer. You have genes that are passed from parent to child (inherited), such as BRCA1 and BRCA2. You have Ascencio syndrome. men and men of descent are diagnosed with prostate cancer at higher rates than other men. The reasons for this are not well understood and are likely due to a combination of genetic and environmental factors. What are the signs or symptoms? Symptoms of this condition include: Problems with urination. This may include: ?A weak or interrupted flow of urine. ?Trouble starting or stopping urination. ?Trouble emptying the bladder all the way. ?The need to urinate more often, especially at night. Blood in urine or semen. Persistent pain or discomfort in the lower back, lower abdomen, or hips. Trouble getting an erection. Weakness or numbness in the legs or feet. How is this diagnosed? This condition can be diagnosed with: A digital rectal exam. For this exam, a health care provider inserts a gloved finger into the rectum to feel the prostate gland. A blood test called a prostate-specific antigen (PSA) test. A procedure in which a sample of tissue is taken from the prostate and checked under a microscope (prostate biopsy). An imaging test called transrectal ultrasonography. Once the condition is diagnosed, tests will be done to determine how far the cancer has spread. This is called staging the cancer. Staging may involve imaging tests, such as a bone scan, CT scan, PET scan, or MRI. Stages of prostate cancer The stages of prostate cancer are as follows: Stage 1 (I). At this stage, the cancer is found in the prostate only. The cancer is not visible on imaging tests, and it is usually found by accident, such as during prostate surgery. Stage 2 (II). At this stage, the cancer is more advanced than it is in stage 1, but the cancer has not spread outside the prostate. Stage 3 (III). At this stage, the cancer has spread beyond the outer layer of the prostate to nearby tissues. The cancer may be found in the seminal vesicles, which are near the bladder and the prostate. Stage 4 (IV). At this stage, the cancer has spread to other parts of the body, such as the lymph nodes, bones, bladder, rectum, liver, or lungs. Prostate cancer grading Prostate cancer is also graded according to how the cancer cells look under a microscope. This is called the Lefors score and the total score can range from 6 10, indicating how likely it is that the cancer will spread (metastasize) to other parts of the body. The higher the score, the greater the likelihood that the cancer will spread. Coreen 6 or lower: This indicates that the cancer cells look similar to normal prostate cells (well differentiated). Lefors 7: This indicates that the cancer cells look somewhat similar to normal prostate cells (moderately differentiated). Lefors 8, 9, or 10: This indicates that the cancer cells look very different than normal prostate cells (poorly differentiated). How is this treated? Treatment for this condition depends on several factors, including the stage of the cancer, your age, personal preferences, and your overall health. Talk with your health care provider about treatment options that are recommended for you. Common treatments include: Observation for early stage prostate cancer (active surveillance). This involves having exams, blood tests, and in some cases, more biopsies. For some men, this is the only treatment needed. Surgery. Types of surgeries include: ?Open surgery (radical prostatectomy). In this surgery, a larger incision is made to remove the prostate. ?A laparoscopic radical prostatectomy. This is a surgery to remove the prostate and lymph nodes through several small incisions. It is often referred to as a minimally invasive surgery. ?A robotic radical prostatectomy. This is laparoscopic surgery to remove the prostate and lymph nodes with the help of robotic arms that are controlled by the surgeon. ?Cryoablation. This is surgery to freeze and destroy cancer cells. Radiation treatment. Types of radiation treatment include: ?External beam radiation. This type aims beams of radiation from outside the body at the prostate to destroy cancerous cells. ?Brachytherapy. This type uses radioactive needles, seeds, wires, or tubes that are implanted into the prostate gland. Like external beam radiation, brachytherapy destroys cancerous cells. An advantage is that this type of radiation limits the damage to surrounding tissue and has fewer side effects. Chemotherapy. This treatment kills cancer cells or stops them from multiplying. It kills both cancer cells and normal cells. Targeted therapy. This treatment uses medicines to kill cancer cells without damaging normal cells. Hormone treatment. This treatment involves taking medicines that act on testosterone, one of the male hormones, by: ?Stopping your body from producing testosterone. ?Blocking testosterone from reaching cancer cells. Follow these instructions at home: Lifestyle Do not use any products that contain nicotine or tobacco. These products include cigarettes, chewing tobacco, and vaping devices, such as e-cigarettes. If you need help quitting, ask your health care provider. Eat a healthy diet. To do this: ?Eat foods that are high in fiber. These include beans, whole grains, and fresh fruits and vegetables. ?Limit foods that are high in fat and sugar. These include fried or sweet foods. Treatment for prostate cancer may affect sexual function. If you have a partner, continue to have intimate moments. This may include touching, holding, hugging, and caressing your partner. Get plenty of sleep. Consider joining a support group for men who have prostate cancer. Meeting with a support group may help you learn to manage the stress of having cancer. General instructions Take [id number] and prescription medicines only as told by your health care provider. If you have to go to the hospital, notify your cancer specialist (oncologist). Keep all follow-up visits. This is important. Where to find more information [place] [employer]: www.cancer.org [place] [employer]: www.cancer.net [employer] [place]: www.cancer.gov Contact a health care provider if: You have new or increasing trouble urinating. You have new or increasing blood in your urine. You have new or increasing pain in your hips, back, or chest. Get help right away if: You have weakness or numbness in your legs. You cannot control urination or your bowel movements (incontinence). You have chills or a fever. Summary The prostate is a small gland that is involved in the production of semen. It is located below a man's bladder, in front of the rectum. Prostate cancer is the abnormal growth of cells in the prostate gland. Treatment for this condition depends on the stage of the cancer, your age, personal preferences, and your overall health. Talk with your health care provider about treatment options that are recommended for you. Consider joining a support group for men who have prostate cancer. Meeting with a support group may help you learn to manage the stress of having cancer. This information is not intended to replace advice given to you by your health care provider. Make sure you discuss any questions you have with your health care provider. Document Revised: 04/21/2021 Document Reviewed: 04/21/2021 [employer] Patient Education 2022 Caregivers. Follow Up Care 11/28/2022 15:36:16 With:CORNELIO ROSARIO, Yosef Bunch, URL Address: [address] [place], [place] [id number]- When: Unknown [facility] 12-01-2022 Nurse Note Radiation Therapy - Patient Education Note PATIENT NAME: Adolph Johns PATIENT December 01, 2022 [facility] FACILITY/LOCATION: [facility] READINESS TO LEARN Cognitive Ability: Alert and oriented Motivation to learn: Interested Family Support: High - Very involved in pt care Instruction provide to: Patient and Spouse Patient learns best by: Multiple Methods Factors effecting learning: None Physical limitations effecting learning: None LEARNING RESPONSE Diagnosis: Pt scheduled for simulation for radiation therapy to pelvis. Education Topic/Teaching Points: Radiation therapy, Side effects, and OTV: Method of instruction: Written instruction - handouts Verbal instruction Patient /Family response: Patient and family verbalized understanding of radiation treatments, side effects, OTV, and transportation. Follow-up plan: Recommend - Recommend continued instruction and follow up as directed Supplemental material: Informational handouts on Bladder function, Diarrhea, Fatigue, Pelvic handout, and patient education . Referral (recommendation): None, Pt denied need for social work, van service, and corporation officer. Was approved? No Signed by: Yuko Barahona LPN documented in this encounter [facility] 11-28-2022 History of Present illness Narrative Radiology Service Progress Note DATE OF SERVICE: November 28, 2022 TIME: 11:42 AM PATIENT WEIGHT: 236 LBS PATIENT IDENTITY VERIFICATION COMPLETED USING TWO (2) STANDARD IDENTIFIERS: Name and Date of confirmed by patient verbally. FALL SCREENING: Has the patient had 2 falls in the last year or 1 fall with injury or currently using an Ambulatory Assistive Device (Walker, Cane, Wheelchair, Crutches, etc.)? No PATIENT GENDER DATA: Male ALLERGIES: Reviewed and unchanged CONTRAST ALLERGY: No EXAM: MRI - CONTRAST TYPE: GROUP II IV SITE: Ambulatory: A peripheral IV was started in the Right antecubital site with a Angio cath: 22 gauge. IV SITE APPEARANCE: Clean,Dry and Intact SIGNATURE: Michelle Kennedy RN PATIENT NAME: Adolph Johns DATE: November 28, 2022 TIME: 11:42 AM Radiology Service Progress Note PATIENT NAME: Adolph Johns DATE OF SERVICE: November 28, 2022 TIME: 12:01 PM PATIENT IDENTITY VERIFICATION COMPLETED USING TWO (2) IDENTIFIERS: Name and Date of confirmed by patient verbally. FALL SCREENING: Has the patient had 2 falls in the last year or 1 fall with injury or currently using an Ambulatory Assistive Device (Walker, Cane, Wheelchair, Crutches, etc.)? No PATIENT GENDER DATA: Male PATIENT RELEVANT IMPLANT DATA REVIEWED: Yes RADIOLOGY DEPARTMENT: MR; Exam(s) Completed: Body: Prostate PERIPHERAL IV DATA: Site assessment: Clean,Dry and Intact, Site disposition Discontinued SIGNED BY: RT Aravind(R) November 28, 2022 12:01 PM documented in this encounter [facility] 11-18-2022 Hospital Discharge instructions Patient Education 11/18/2022 12:12:04 Prostate Cancer Prostate Cancer The prostate is a small gland that produces fluid that makes up semen (seminal fluid). It is located below the bladder in men, in front of the rectum. Prostate cancer is the abnormal growth of cells in the prostate gland. What are the causes? The exact cause of this condition is not known. What increases the risk? You are more likely to develop this condition if: You are 65 years of age or older. You have a family history of prostate cancer. You have a family history of breast and ovarian cancer. You have genes that are passed from parent to child (inherited), such as BRCA1 and BRCA2. You have Ascencio syndrome. men and men of descent are diagnosed with prostate cancer at higher rates than other men. The reasons for this are not well understood and are likely due to a combination of genetic and environmental factors. What are the signs or symptoms? Symptoms of this condition include: Problems with urination. This may include: ?A weak or interrupted flow of urine. ?Trouble starting or stopping urination. ?Trouble emptying the bladder all the way. ?The need to urinate more often, especially at night. Blood in urine or semen. Persistent pain or discomfort in the lower back, lower abdomen, or hips. Trouble getting an erection. Weakness or numbness in the legs or feet. How is this diagnosed? This condition can be diagnosed with: A digital rectal exam. For this exam, a health care provider inserts a gloved finger into the rectum to feel the prostate gland. A blood test called a prostate-specific antigen (PSA) test. A procedure in which a sample of tissue is taken from the prostate and checked under a microscope (prostate biopsy). An imaging test called transrectal ultrasonography. Once the condition is diagnosed, tests will be done to determine how far the cancer has spread. This is called staging the cancer. Staging may involve imaging tests, such as a bone scan, CT scan, PET scan, or MRI. Stages of prostate cancer The stages of prostate cancer are as follows: Stage 1 (I). At this stage, the cancer is found in the prostate only. The cancer is not visible on imaging tests, and it is usually found by accident, such as during prostate surgery. Stage 2 (II). At this stage, the cancer is more advanced than it is in stage 1, but the cancer has not spread outside the prostate. Stage 3 (III). At this stage, the cancer has spread beyond the outer layer of the prostate to nearby tissues. The cancer may be found in the seminal vesicles, which are near the bladder and the prostate. Stage 4 (IV). At this stage, the cancer has spread to other parts of the body, such as the lymph nodes, bones, bladder, rectum, liver, or lungs. Prostate cancer grading Prostate cancer is also graded according to how the cancer cells look under a microscope. This is called the Coreen score and the total score can range from 6 10, indicating how likely it is that the cancer will spread (metastasize) to other parts of the body. The higher the score, the greater the likelihood that the cancer will spread. Coreen 6 or lower: This indicates that the cancer cells look similar to normal prostate cells (well differentiated). Coreen 7: This indicates that the cancer cells look somewhat similar to normal prostate cells (moderately differentiated). Coreen 8, 9, or 10: This indicates that the cancer cells look very different than normal prostate cells (poorly differentiated). How is this treated? Treatment for this condition depends on several factors, including the stage of the cancer, your age, personal preferences, and your overall health. Talk with your health care provider about treatment options that are recommended for you. Common treatments include: Observation for early stage prostate cancer (active surveillance). This involves having exams, blood tests, and in some cases, more biopsies. For some men, this is the only treatment needed. Surgery. Types of surgeries include: ?Open surgery (radical prostatectomy). In this surgery, a larger incision is made to remove the prostate. ?A laparoscopic radical prostatectomy. This is a surgery to remove the prostate and lymph nodes through several small incisions. It is often referred to as a minimally invasive surgery. ?A robotic radical prostatectomy. This is laparoscopic surgery to remove the prostate and lymph nodes with the help of robotic arms that are controlled by the surgeon. ?Cryoablation. This is surgery to freeze and destroy cancer cells. Radiation treatment. Types of radiation treatment include: ?External beam radiation. This type aims beams of radiation from outside the body at the prostate to destroy cancerous cells. ?Brachytherapy. This type uses radioactive needles, seeds, wires, or tubes that are implanted into the prostate gland. Like external beam radiation, brachytherapy destroys cancerous cells. An advantage is that this type of radiation limits the damage to surrounding tissue and has fewer side effects. Chemotherapy. This treatment kills cancer cells or stops them from multiplying. It kills both cancer cells and normal cells. Targeted therapy. This treatment uses medicines to kill cancer cells without damaging normal cells. Hormone treatment. This treatment involves taking medicines that act on testosterone, one of the male hormones, by: ?Stopping your body from producing testosterone. ?Blocking testosterone from reaching cancer cells. Follow these instructions at home: Lifestyle Do not use any products that contain nicotine or tobacco. These products include cigarettes, chewing tobacco, and vaping devices, such as e-cigarettes. If you need help quitting, ask your health care provider. Eat a healthy diet. To do this: ?Eat foods that are high in fiber. These include beans, whole grains, and fresh fruits and vegetables. ?Limit foods that are high in fat and sugar. These include fried or sweet foods. Treatment for prostate cancer may affect sexual function. If you have a partner, continue to have intimate moments. This may include touching, holding, hugging, and caressing your partner. Get plenty of sleep. Consider joining a support group for men who have prostate cancer. Meeting with a support group may help you learn to manage the stress of having cancer. General instructions Take lqbz-vyr-tdnlvjj and prescription medicines only as told by your health care provider. If you have to go to the hospital, notify your cancer specialist (oncologist). Keep all follow-up visits. This is important. Where to find more information [place] [employer]: www.cancer.org [place] [employer] On[employer]: www.cancer.net National Cancer [place]: www.cancer.gov Contact a health care provider if: You have new or increasing trouble urinating. You have new or increasing blood in your urine. You have new or increasing pain in your hips, back, or chest. Get help right away if: You have weakness or numbness in your legs. You cannot control urination or your bowel movements (incontinence). You have chills or a fever. Summary The prostate is a small gland that is involved in the production of semen. It is located below a man's bladder, in front of the rectum. Prostate cancer is the abnormal growth of cells in the prostate gland. Treatment for this condition depends on the stage of the cancer, your age, personal preferences, and your overall health. Talk with your health care provider about treatment options that are recommended for you. Consider joining a support group for men who have prostate cancer. Meeting with a support group may help you learn to manage the stress of having cancer. This information is not intended to replace advice given to you by your health care provider. Make sure you discuss any questions you have with your health care provider. Document Revised: 04/21/2021 Document Reviewed: 04/21/2021 [employer] Patient Education 2022 Caregivers. Follow Up Care 11/01/2022 16:31:02 With:CORNELIO ROSARIO, Yosef Bunch, URL Address: [facility] [address] [place] [phone] When: Unknown [facility] 11-15-2022 History of Present illness Narrative Radiation Oncology - Prostate Cancer New Patient/Consult Note PATIENT NAME: Adolph Johns PATIENT REQUESTING PROVIDER: Dr. Grimes DIAGNOSIS: 77 year old male with prostate adenocarcinoma, initial PSA 7.5, biopsy Coreen score 4 + 3 = 7 (grade group 3), pathologic stage T2c, N0, M0, stage IIC [T1-T2, N0, M0, PSA <20, GG 3] (AJCC 8th ed.), s/p prostatectomy . With recent rising PSA, hematuria and bladder mass. HPI: 77 year old male with prostate adenocarcinoma who presents for an opinion regarding the role of radiation therapy in the management of the patient's disease. Final recommendations will be communicated back to the requesting physician by way of the shared medical record, or letter to requesting physician via US mail. The patient was diagnosed with prostate cancer and comes in today to discuss treatment options. Patient presented in 2016 with an elevated PSA of 7.5, biopsy showing Coreen 7 (4+3) adenocarcinoma. No evidence of metastasis on staging. He underwent nerve sparing radical retropubic prostatectomy and bilateral pelvic lymphadenectomy on 01/07/2016. Pathology revealed adenocarcinoma, Lefors 8 (4+4), no evidence of extraprostatic extension, no seminal vesicle invasion, margins uninvolved, perineural invasion was seen, 2 regional lymph nodes removed without evidence of metastasis.[id number] Post prostatectomy PSA undetectable. However PSA has become detectable, and rising. PSA history: 11/11/2019 0.06 10/05/2020 0.05 09/14/2021 <0.13 09/26/2022 2.05 Patient was found to have some hematuria and underwent cystoscopy on 11/01/2022 which demonstrated a 2 cm tumor on the central trigone near the bladder neck. Further staging including PSMA PET 10/28/2022 demonstrating: HEAD/NECK: * No PSMA-expressing lesions suspicious for metastases. CHEST: * No PSMA-expressing lesions suspicious for metastases. ABDOMENS/PELVIS: * Status post prostatectomy with PSMA-expressing local recurrence and conglomerate RIGHT pelvic sidewall tracer avid lymphadenopathy, as described. * Indeterminate, prominent size, mildly tracer avid RIGHT groin lymph nodes BONES/SOFT TISSUES: * No PSMA-expressing lesions suspicious for metastases. He underwent further work-up including intraoperative cystoscopy and transurethral resection of bladder tumor, described as 4 cm, mid trigone necrotic fungating. Pathology: Pending Patient otherwise states he has been doing well. Denies any skeletal pain, shortness of breath, appetite change, bowel related issues. He does have some urinary urgency. Patient is also being followed for monoclonal gammopathy after presenting with renal insufficiency and proteinuria. 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 His labs have remained stable. Previous Treatment for Prostate Cancer: Radical Prostatectomy: See HPI Genomic Testing: None The patient reports the following pertinent history: Urinary frequency (D/N): 4-6/1-2 Dysuria: No Incontinence: 1- No pads Hematuria: Minimal Bowel Movement Frequency: 1/day Bowel Movement Quality: Normal Blood per Rectum: No Androgen Deprivation: none Prior Radiation Therapy, Collagen Vascular Disease, or Inflammatory Bowel Disease: No Any implanted or external electric devices? No Currently on Anticoagulation: No History of Hip Replacement: No History of Prior TURP: No ALLERGIES Allergen Reactions Penicillins Rash, Swelling Teramycin [Oxytetra* Unknown lisinopril-hydrochlorothiazide (PRINZIDE,ZESTORETIC) 10-12.5 mg per tablet Take 1 tablet by mouth once daily. PAST MEDICAL HISTORY Diagnosis Date HTN (hypertension) MGUS (monoclonal gammopathy of unknown significance) Prostate cancer (HCC) PAST SURGICAL HISTORY Procedure Laterality Date COLONOSCOPY 2012 RADICAL PROSTATECTOMY FAMILY HISTORY Problem Relation Age of Onset Hypertension Mother other (Blood clots) Mother Cancer Father Social History Tobacco Use Smoking status: Never Passive exposure: Past Smokeless tobacco: Never Vaping Use Vaping Use: Never used Substance Use Topics Alcohol use: Not Currently Drug use: Never REVIEW OF SYSTEMS: GENERAL: feeling well without fatigue, no recent change in weight NECK: denies swelling or pain in neck RESPIRATORY: no cough, no wheezing or shortness of breath CARDIOVASCULAR: no chest pain, no palpitations MUSCULOSKELETAL: denies any painful or swollen joints, no muscle aches SKIN: no rash NEURO: no numbness or paresthesias and no weakness of the extremities As noted in HPI PHYSICAL EXAM: VS: BP 127/78 Pulse (!) 57 Temp 36.4 C (97.6 F) Resp 20 Wt 112.5 kg (248 lb) SpO2 96% BMI 30.20 kg/m KARNOFSKY PERFORMANCE STATUS: 100 General Appearance: Alert and oriented. No acute distress. HEENT: NCAT. Sclera anicteric. PERRL. EOMI. Neck: Normal ROM. No palpable cervical or supraclavicular adenopathy. Chest: No respiratory distress. Lungs clear to auscultation bilaterally. Heart: Regular rate and rhythm. Abdomen: Soft. Nontender. Nondistended. Musculoskeletal: No edema. Normal ROM in extremities. No bone or spine tenderness. Neuro: Speech fluent. Gait normal. No focal deficits. Skin: No rashes noted Lymphatics: No palpable lymphadenopathy. GENITOURINARY: Deferred exam RECTAL: Deferred exam RADIOLOGY/LABORATORY DATA: see HPI ASSESSMENT/PLAN: prostate adenocarcinoma, initial PSA 7.5, biopsy Coreen score 4 + 3 = 7 (grade group 3), pathologic stage T2c, N0, M0, stage IIC [T1-T2, N0, M0, PSA <20, GG 3] (AJCC 8th ed.), s/p prostatectomy January 2016. With recent rising PSA , hematuria and bladder mass. Patient has rising PSA with a right pelvic mass with significant uptake on PSMA PET consistent with prostate cancer recurrence. In addition he has a large bladder mass and is status post transurethral resection with pathology pending. Certainly given the findings on PET scan does not appear patient has an operable process. I do feel radiation will play a role for the management of both issues. If they are related i.e. the bladder mass is related to prostate cancer then the plan ADT with pelvic radiation. Should this be a separate primary then consideration of chemotherapy concurrent with radiation as well as ADT. Recommend MRI for further local characterization of disease process. We will plan to have patient back after MRI for further discussion and coordination of treatment plan. Signed by: David Kumari MD cc: Shahriar Stephenson [address] [place] [address] Yosef Bunch Cornel[address] [facility] [id number] documented in this encounter [facility] 10-28-2022 History of Present illness Narrative RADIOLOGY SERVICE PROGRESS NOTE SERVICE DATE: 10/28/2022 SERVICE TIME: 1:51 PM PATIENT IDENTITY VERIFICATION COMPLETED USING TWO (2) STANDARD IDENTIFIERS: Name and Date of confirmed by patient verbally POST EXAM PIV STATUS: Discontinued PROCEDURE TYPE: NM INJECT: PET/CT BODY SCAN. 10.5 mCi F18 FDG. No other medications given.. ADMINISTRATION TIME: 1245 PATIENT DISCHARGED TO: Ambulatory patient, left [place] department area. A Diagnostic radioactive procedure has taken place, with no further precautions necessary other than routine body substance precautions. More information regarding radiation safety can be found using this link: [email or web address] SIGNATURE: RT Jace(Alivia) PATIENT NAME: Adolph Johns DATE: October 28, 2022 TIME: 1:51 PM PAGER/CONTACT #: documented in this encounter [facility] 10-09-2022 Evaluation note Encounter Date Diagnosis Assessment Notes Oct, Frequency of urination (ICD-10 - R35.0) Oct, Dysuria (ICD-10 - R30.0) Urinary tract infection material was printed Drink plenty fluids, get plenty of rest. Continue home medications as prescribed. Take the ciprofloxacin as prescribed until gone. Follow-up with your family physician if no improvement in 2 to 3 days. Go to the ER for any worsening symptoms or concerns. Patient reports symptoms of fever, burning on urination, urinary frequency, mild right lower quadrant pain, fever. Denies any headache, nausea or vomiting. Patient states he did [address]-fmf-[address]b [address] test that were positive for nitrites. Patient appears nontoxic and will be treated for UTI according to his symptoms. Stressed the need for the patient to go to the ER for any worsening fevers, vomiting, abdominal pain, back pain. Patient agrees with this plan. [employer] Other 09-01-2023 Miscellaneous Notes* Telephone Encounter - Brook Ambrosio - 10/07/2022 11:51 AM EDT Patient has been scheduled. Brook Ambrosio * Telephone Encounter - Diana Romero RN - 10/06/2022 1:18 PM EDT PET/Ct Prostate auth approved [id number] from 10-04-22 to 04-02-23 for 1 dos * Telephone Encounter - Diana Romero RN - 10/06/2022 1:01 PM EDT Authorization number: PSMA [id number] Authorization date range: PSMA from 10-04-22 to 04-02-23 for 1 dos Primary Insurance: [facility] Medicare [id number] Diagnosis: Rising PSA after Prostate cancer treatment R97.21 DX Imaging: N/A Pathology: Prostatectomy Labs: 8-21-23 PSA 2.05 09-14-21 PSA <0.13 10-05-20 PSA 0.05 Clinical Notes Reviewed: [facility] Gavino Rudy Date of last: Prostatectomy Additional Information: N/A Radiologist Reviewed: N/A Initial/Subsequent: Subsequent Treatment Strategy: 0093 PET Protocol: PSMA Diagnostic Imaging Requested: No Is this a Pretreatment and/or an initial Pet scan: No - Schedule as requested Comments for Clinical Immunologist: N/A ROUTE TO SCHEDULERS POOL P PET [facility]ER[facility]NER or P [facility] SPECIAL [facility] * Telephone Encounter - Melodie Auguste - 10/06/2022 11:10 AM EDT This form is used for MAIN CAMPUS APPOINTMENTS ONLY. Is this request for a Main [place] PET scan appointment? Yes: [facility] Director: Melodie Ladd Requesting Person Dr landers (external order scanned in along with auth) Name): Area Code + Phone/Pager: [phone] Who do we call to schedule this appointment? [facility] please route to Lucila saenz in [place] (external orders) Requesting Staff Dr grimes Area Code + Phone/Pager: [phone] PET Orders (A delay in scheduling will result if the orders are not present at time of review): External. Has the External Clinical Order been scanned into [facility]? Yes ADDITIONAL ACTION MAY BE REQUIRED IF PATIENTS OON INSURANCE OR SELF PAY COVERAGE HAS NOT BEEN CLEARED FOR REQUESTED APPOINTMENT. Scheduling: CRISTINA: As soon as insurance will allow What account will this PET appointment be linked to? P/F Type of PET: Oncology: Are there additional diagnostic CT scans required to be done at time of PET scan? No Is the request for a PET MR ? No What account will diagnostic testing appointment be linked to? P/F Will the patient need anesthesia? NO Auth is on file for patient also. Send requests to [facility] Discharge instructions Patient Education 10/03/2022 15:06:33 Cystoscopy Cystoscopy Cystoscopy is a procedure that is used to help diagnose and sometimes treat conditions that affect the lower urinary tract. The lower urinary tract includes the bladder and the urethra. The urethra is the tube that drains urine from the bladder. Cystoscopy is done using a thin, tube-shaped instrument with a light and camera at the end (cystoscope). The cystoscope may be hard or flexible, depending on the goal of the procedure. The cystoscope is inserted through the urethra, into the bladder. Cystoscopy may be recommended if you have: Urinary tract infections that keep coming back. Blood in the urine (hematuria). An inability to control when you urinate (urinary incontinence) or an overactive bladder. Unusual cells found in a urine sample. A blockage in the urethra, such as a urinary stone. Painful urination. An abnormality in the bladder found during an intravenous pyelogram (IVP) or CT scan. Cystoscopy may also be done to remove a sample of tissue to be examined under a microscope (biopsy). Tell a health care provider about: Any allergies you have. All medicines you are taking, including vitamins, herbs, eye drops, creams, and clhe-znl-zzojuwu medicines. Any problems you or family members have had with anesthetic medicines. Any blood disorders you have. Any surgeries you have had. Any medical conditions you have. Whether you are or may be . What are the risks? Generally, this is a safe procedure. However, problems may occur, including: Infection. Bleeding. Allergic reactions to medicines. Damage to other structures or organs. What happens before the procedure? Medicines Ask your health care provider about: Changing or stopping your regular medicines. This is especially important if you are taking diabetes medicines or blood thinners. Taking medicines such as aspirin and ibuprofen. These medicines can thin your blood. Do not take these medicines unless your health care provider tells you to take them. Taking vngk-ess-wrvtsed medicines, vitamins, herbs, and supplements. Tests You may have an exam or testing, such as: X-rays of the bladder, urethra, or kidneys. CT scan of the abdomen or pelvis. Urine tests to check for signs of infection. General instructions Follow instructions from your health care provider about eating or drinking restrictions. Ask your health care provider what steps will be taken to help prevent infection. These steps may include: ?Washing skin with a germ-killing soap. ?Taking antibiotic medicine. Plan to have a responsible adult take you home from the hospital or clinic. What happens during the procedure? You will be given one or more of the following: ?A medicine to help you relax (sedative). ?A medicine to numb the area (local anesthetic). The area around the opening of your urethra will be cleaned. The cystoscope will be passed through your urethra into your bladder. Germ-free (sterile) fluid will flow through the cystoscope to fill your bladder. The fluid will stretch your bladder so that your health care provider can clearly examine your bladder medley. Your doctor will look at the urethra and bladder. Your doctor may take a biopsy or remove stones. The cystoscope will be removed, and your bladder will be emptied. The procedure may vary among health care providers and hospitals. What can I expect after the procedure? After the procedure, it is common to have: Some soreness or pain in your abdomen and urethra. Urinary symptoms. These include: ?Mild pain or burning when you urinate. Pain should stop within a few minutes after you urinate. This may last for up to 1 week. ?A small amount of blood in your urine for several days. ?Feeling like you need to urinate but producing only a small amount of urine. Follow these instructions at home: Medicines Take ijqp-vxd-ofzhlix and prescription medicines only as told by your health care provider. If you were prescribed an antibiotic medicine, take it as told by your health care provider. Do notstop taking the antibiotic even if you start to feel better. General instructions Return to your normal activities as told by your health care provider. Ask your health care provider what activities are safe for you. If you were given a sedative during the procedure, it can affect you for several hours. Do not drive or operate machinery until your health care provider says that it is safe. Watch for any blood in your urine. If the amount of blood in your urine increases, call your healthcare provider. Follow instructions from your health care provider about eating or drinking restrictions. If a tissue sample was removed for testing (biopsy) during your procedure, it is up to you to get your test results. Ask your health care provider, or the department that is doing the test, when yourresults will be ready. Drink enough fluid to keep your urine pale yellow. Keep all follow-up visits. This is important. Contact a health care provider if: You have pain that gets worse or does not get better with medicine, especially pain when you urinate. You have trouble urinating. You have more blood in your urine. Get help right away if: You have blood clots in your urine. You have abdominal pain. You have a fever or chills. You are unable to urinate. Summary Cystoscopy is a procedure that is used to help diagnose and sometimes treat conditions that affect the lower urinary tract. Cystoscopy is done using a thin, tube-shaped instrument with a light and camera at the end. After the procedure, it is common to have some soreness or pain in your abdomen and urethra. Watch for any blood in your urine. If the amount of blood in your urine increases, call your healthcare provider. If you were prescribed an antibiotic medicine, take it as told by your health care provider. Do notstop taking the antibiotic even if you start to feel better. This information is not intended to replace advice given to you by your health care provider. Make sure you discuss any questions you have with your health care provider. Document Revised: 10/06/2021 Document Reviewed: 09/04/2020 [employer] Patient Education 2022 Caregivers. 10/03/2022 15:02:31 Hematuria, Adult Hematuria, Adult Hematuria is blood in the urine. Blood may be visible in the urine, or it may be identified with a test. This condition can be caused by infections of the bladder, urethra, kidney, or prostate. Otherpossible causes include: Kidney stones. Cancer of the urinary tract. Too much calcium in the urine. Conditions that are passed from parent to child (inherited conditions). Exercise that requires a lot of energy. Infections can usually be treated with medicine, and a kidney stone usually will pass through your urine. If neither of these is the cause of your hematuria, more tests may be needed to identify the cause of your symptoms. It is very important to tell your health care provider about any blood in your urine, even if it ispainless or the blood stops without treatment. Blood in the urine, when it happens and then stops and then happens again, can be a symptom of a very serious condition, including cancer. There is no pain in the initial stages of many urinary cancers. Follow these instructions at home: Medicines Take jhft-ehe-khoqxgt and prescription medicines only as told by your health care provider. If you were prescribed an antibiotic medicine, take it as told by your health care provider. Do notstop taking the antibiotic even if you start to feel better. Eating and drinking Drink enough fluid to keep your urine pale yellow. It is recommended that you drink 3 4 quarts (2.83.8 L) a day. If you have been diagnosed with an infection, drinking cranberry juice in addition tolarge amounts of water is recommended. Avoid caffeine, tea, and carbonated beverages. These tend to irritate the bladder. Avoid alcohol because it may irritate the prostate (in males). General instructions If you have been diagnosed with a kidney stone, follow your health care provider's instructions about straining your urine to catch the stone. Empty your bladder often. Avoid holding urine for long periods of time. If you are female: ?After a bowel movement, wipe from front to back and use each piece of toilet paper only once. ?Empty your bladder before and after sex. Pay attention to any changes in your symptoms. Tell your health care provider about any changes or any new symptoms. It is up to you to get the results of any tests. Ask your health care provider, or the department that is doing the test, when your results will be ready. Keep all follow-up visits. This is important. Contact a health care provider if: You develop back pain. You have a fever or chills. You have nausea or vomiting. Your symptoms do not improve after 3 days. Your symptoms get worse. Get help right away if: You develop severe vomiting and are unable to take medicine without vomiting. You develop severe pain in your back or abdomen even though you are taking medicine. You pass a large amount of blood in your urine. You pass blood clots in your urine. You feel very weak or like you might faint. You faint. Summary Hematuria is blood in the urine. It has many possible causes. It is very important that you tell your health care provider about any blood in your urine, even ifit is painless or the blood stops without treatment. Take egql-sof-dcamdkm and prescription medicines only as told by your health care provider. Drink enough fluid to keep your urine pale yellow. This information is not intended to replace advice given to you by your health care provider. Make sure you discuss any questions you have with your health care provider. Document Revised: 09/23/2020 Document Reviewed: 09/23/2020 [employer] Patient Education 2022 Caregivers. Follow Up Care 09/27/2021 10:53:03 With:CORNELIO ROSARIO, Yosef Bunch, URL Address: [facility] [address], [place] [address]- [phone] When: Unknown Comments:sched cysto and PSMA PET scan [facility] Manoj 04-27-2023 History of Present illness Narrative* Elio Payne APRN.TOY ASSEMBLER - 06/02/2022 2:06 PM EDT PATIENT NAME: Adolph Johns DATE: 06/02/2022 PRIMARY CARE PHYSICIAN: Dr. Chanel OTHER PHYSICIANS: , Dr. Grimes Portions of this encounter note have been copied from the note from 11/02/2021 and has been updated where appropriate, and reflect my current medical decision making from today. CC: This is a 76 year old male with MGUS, seen for scheduled follow-up. INTERIM HISTORY: Adolph Johns returns for follow-up. Since his last visit there has been no significant medical changes. He denies any new palpable lumps or bumps. He denies fevers, chills, night sweats and signs/symptoms of infection. He denies any unusual pain. He denies any unintentional weight loss. Overall, he is doing well today. He spent the winter months in [place]. MEDICATIONS: lisinopril-hydrochlorothiazide (PRINZIDE,ZESTORETIC) 10-12.5 mg per tablet Take 1 tablet by mouth once daily. ALLERGIES: Penicillins and Teramycin [Oxytetracycline] PAST MEDICAL HISTORY: PAST MEDICAL HISTORY Diagnosis Date HTN (hypertension) MGUS (monoclonal gammopathy of unknown significance) PAST SURGICAL HISTORY: PAST SURGICAL HISTORY Procedure Laterality Date COLONOSCOPY 2013 RADICAL PROSTATECTOMY REVIEW OF SYSTEMS: General: No weight loss, malaise or fevers. HEENT: Negative for frequent or significant headaches. No changes in hearing or vision, no nose bleeds or other nasal problems. Respiratory: Negative for cough, wheezing or shortness of breath. Cardiovascular: Negative for chest pain, leg swelling or palpitations. GI: Negative for abdominal discomfort, blood in stools or black stools or change in bowel habits. : No history of dysuria, frequency or incontinence. Musculoskeletal: Negative for: joint pain or swelling, back pain and muscle pain. Skin: Negative for lesions, rash and itching. Hematology/Lymphology: Negative for prolonged bleeding, bruising easily or swollen nodes. Neuro: No history of headaches, syncope, paralysis, seizures or tremors. PHYSICAL EXAM: Vitals: BP 118/63 Pulse 77 Temp 36.6 C (97.8 F) (Temporal) Resp 18 Ht 193 cm (6' 3.98 ) Wt 118 kg (260 lb 3.2 oz) SpO2 93% BMI 31.69 kg/m ECOG Exam limited to gross visualization where appropriate due to COVID-19. Gen.: This is an age-appropriate patient in no acute distress. Head: Appears atraumatic with no visible lesions. Eyes: Pupils equally round and reactive to light, extraocular muscles are intact. Neck: Supple. Mouth: Masked. Respiratory: Appears to be respiring comfortably. Neurologic: Nonfocal to gross visualization. Alert and oriented 3. Psychiatric: No evidence of inappropriate anxiety or depression. Skin: Visible areas of skin without rash, lesions, wounds or petechiae. LABORATORY DATA: Hemoglobin (g/dL) Date Value 06/02/2022 15.7 10/29/2020 15.8 Hematocrit (%) Date Value 06/02/2022 46.4 10/29/2020 46.8 WBC (k/uL) Date Value 06/02/2022 8.76 10/29/2020 6.85 Platelet Count (k/uL) Date Value 06/02/2022 186 10/29/2020 162 RADIOLOGY/OTHER STUDIES: 11/06/2019 CT RIGHT FEMUR IMPRESSION: No suspect bone lesion. No comparison study. 10/28/2019 Skeletal survey ([facility]) Subtle oval slightly lytic-appearing lesion within the right femoral neck, nonspecific and may represent summation artifact. No additional findings of the skeletal structures to suggest ASSESSMENT/PLAN: 1. Monoclonal gammopathy 74 year old male with a history of long standing hypertension and CKD, noted to have an M-spike of 1 g/dL in September 2019 when undergoing evaluation for renal insufficiency and proteinuria. Laboratoryevaluation 10/24/2019 revealed a low level monoclonal IgG lambda and IgM lambda. Other than renal insufficiency (which appears chronic), the patient has no evidence of end organ damage. Most likely the patient has MGUS. Currently the patient remains clinically stable and his labs have remained stable. At this time we will continue routine follow-up. We will check labs today, and if stable he will return for follow-up in 5 months. We will further evaluate as indicated if symptoms develop or his labs worsen significantly. 2. Prostate cancer Early stage adenocarcinoma the prostate diagnosed December 2015. Status post radical prostatectomy 01/07/2016. Since surgery the patient's PSA has been non detectable. Continue management per urology (Dr. Grimes). 3. Essential hypertension Stable on current medications. Continue management per PCP/nephrology 4. Chronic renal insufficiency, stage 3 (moderate) Continue management per PCP/nephrology. Elio Payne APRN.TOY ASSEMBLER CC: Dr. Gabriela Nesbitt spent a total of 20 minutes on the date of the service which included preparing to see the patient, bakn-no-xegm patient care, completing clinical documentation, obtaining and/or reviewing separately obtained history, performing a medically appropriate examination, counseling and educating the pat ient/family/caregiver, ordering medications, tests, or procedures, independently interpreting results (not separately reported), and communicating results to the patient/family/caregiver. [facility] Miscellaneous Notes* Telephone Encounter - Shima Penny RN - 11/08/2021 3:56 PM EDT VM left with [facility] message. Pt encouraged to call back for any further needs or concerns. Shima Penny RN * Telephone Encounter - Shima Penny RN - 11/08/2021 3:55 PM EDT ----- Message from Nicolas Hwang MD sent at 11/08/2021 12:36 PM EDT ----- Please inform the patient that his M protein is stable at 0.82. Other labs are stable as well. No new concerns. We will see him back as scheduled. Thanks, documented in this encounterL[facility]09[facility]22 History of Present illness Narrative* Nicolas Hwang MD - 11/02/2021 7:57 AM EDT PATIENT NAME: Adolph Johns DATE: 11/02/2021 PRIMARY CARE PHYSICIAN: Dr. Chanel OTHER PHYSICIANS: , Dr. Grimes Portions of this encounter note have been copied from the note from 05/10/2021 and has been updated where appropriate, and reflect my current medical decision making from today. CC: This is a 76 year old male with MGUS, seen for scheduled follow-up. INTERIM HISTORY: Since the patient's last visit here he developed an atypical cystic mass involvinghis right groin area. FNA obtained 08/16/2021 ([facility]) revealed changes suggestive of fatnecrosis and granulomatous inflammation, but no evidence of malignancy. The lesion has since resolved. He has had no other significant medical changes. Currently he feels well with no complaints. No recent infections. No unusual pain. No fevers, night sweats, or weight loss. MEDICATIONS: lisinopril-hydrochlorothiazide (PRINZIDE,ZESTORETIC) 10-12.5 mg per tablet Take 1 tablet by mouth once daily. ALLERGIES: Penicillins and Teramycin [Oxytetracycline] PAST MEDICAL HISTORY: PAST MEDICAL HISTORY Diagnosis Date HTN (hypertension) MGUS (monoclonal gammopathy of unknown significance) PAST SURGICAL HISTORY: PAST SURGICAL HISTORY Procedure Laterality Date COLONOSCOPY 2013 RADICAL PROSTATECTOMY REVIEW OF SYSTEMS: GENERAL: No weight loss, malaise or fevers. HEENT: Negative for frequent or significant headaches, No changes in hearing or vision, no nose bleeds or other nasal problems RESPIRATORY: Negative for cough, wheezing or shortness of breath. CARDIOVASCULAR: Negative for chest pain, leg swelling or palpitations. GI: Negative for abdominal discomfort, blood in stools or black stools or change in bowel habits : No history of dysuria, frequency or incontinence MUSCULOSKELETAL: Negative for: joint pain or swelling, back pain and muscle pain SKIN: Negative for lesions, rash, and itching. HEMATOLOGY/LYMPHOLOGY: Negative for prolonged bleeding, bruising easily or swollen nodes. NEURO: No history of headaches, syncope, paralysis, seizures or tremors PHYSICAL EXAM: Vitals: BP 140/77 Pulse 72 Temp 36.5 C (97.7 F) (Temporal) Resp 18 Ht 193 cm (6' 3.98 ) Wt 119.4 kg (263 lb 3.2 oz) SpO2 94% BMI 32.05 kg/m General appearance: well appearing, alert, in no acute distress, well-hydrated, well nourished Skin: skin color, texture, turgor normal, no suspicious rashes or lesions Head: normal Eyes: Anicteric sclera. Lymph: no palpable cervical, axillary or supraclavicular lymphadenopathy Lungs: clear to auscultation, no wheezing or rhonchi Heart: Negative. RRR without murmur, gallop, or rubs. No ectopy. Abdomen: Normal abdominal exam, Abdomen soft, non-tender. Bowel sounds normal. No masses, organomegaly Extremities: Extremities normal. LABORATORY DATA: Hemoglobin (g/dL) Date Value 11/02/2021 16.2 10/29/2020 15.8 Hematocrit (%) Date Value 11/02/2021 48.1 10/29/2020 46.8 WBC (k/uL) Date Value 11/02/2021 8.51 10/29/2020 6.85 Platelet Count (k/uL) Date Value 11/02/2021 161 10/29/2020 162 RADIOLOGY/OTHER STUDIES: 11/06/2019 CT RIGHT FEMUR IMPRESSION: No suspect bone lesion. No comparison study. 10/28/2019 Skeletal survey ([facility]) Subtle oval slightly lytic-appearing lesion within the right femoral neck, nonspecific and may represent summation artifact. No additional findings of the skeletal structures to suggest ASSESSMENT/PLAN: 1. Monoclonal gammopathy 74 year old male with a history of long standing hypertension and CKD, noted to have an M-spike of 1 g/dL in September 2019 when undergoing evaluation for renal insufficiency and proteinuria. Laboratoryevaluation 10/24/2019 revealed a low level monoclonal IgG lambda and IgM lambda. Other than renal insufficiency (which appears chronic), the patient has no evidence of end organ damage. Most likely the patient has MGUS. Currently the patient remains clinically stable and his labs have remained stable. At this time we will continue routine follow-up. We will check labs today, and if stable he will return for follow-up in 7 months (after he returns from [place]). We will then see him every 6 months. We will further evaluate as indicated if symptoms develop or his labs worsen significantly. 2. Prostate cancer Early stage adenocarcinoma the prostate diagnosed December 2015. Status post radical prostatectomy 01/07/2016. Since surgery the patient's PSA has been non detectable. Continue management per urology (Dr. Grimes). 3. Essential hypertension Stable on current medications. Continue management per PCP/nephrology 4. Chronic renal insufficiency, stage 3 (moderate) Continue management per PCP/nephrology. Nicolas Hwang MD CC: Dr. Cook documented in this encounterL[facility]08-[facility] Hospital Discharge instructions Patient Education 09/27/2021 10:40:14 Prostate-Specific Antigen Test Prostate-Specific Antigen Test Why am I having this test? The prostate-specific antigen (PSA) test is a screening test for prostate cancer. It can identify early signs of prostate cancer, which may allow for more effective treatment. Your health care provider may recommend that you have a PSA test starting at age 40 or that you have one earlier or later, depending on your risk factors for prostate cancer. You may also have a PSA test: To monitor treatment of prostate cancer. To check whether prostate cancer has returned after treatment. If you have signs of other conditions that can affect PSA levels, such as: ?An enlarged prostate that is not caused by cancer (benign prostatic hyperplasia, BPH). This condition is very common in older men. ?A prostate infection. What is being tested? This test measures the amount of PSA in your blood. PSA is a protein that is made in the prostate. The prostate naturally produces more PSA as you age, but very high levels may be a sign of a medicalcondition. What kind of sample is taken? A blood sample is required for this test. It is usually collected by inserting a needle into a blood vessel or by sticking a finger with a small needle. Blood for this test should be drawn before having an exam of the prostate. How do I prepare for this test? Do not ejaculate starting 24 hours before your test, or as long as told by your health care provider. Tell a health care provider about: Any allergies you have. All medicines you are taking, including vitamins, herbs, eye drops, creams, and yjzk-qyv-seqwvve medicines. This also includes: ?Medicines to assist with hair growth, such as finasteride. ?Any recent exposure to a medicine called diethylstilbestrol. Any blood disorders you have. Any recent procedures you have had, especially any procedures involving the prostate or rectum. Any medical conditions you have. Any recent urinary tract infections (UTIs) you have had. How are the results reported? Your test results will be reported as a value that indicates how much PSA is in your blood. This will be given as nanograms of PSA per milliliter of blood (ng/mL). Your health care provider will compare your results to normal ranges that were established after testing a large group of people (reference ranges). Reference ranges may vary among labs and hospitals. PSA levels vary from person to person and generally increase with age. Because of this variation, there is no single PSA value that is considered normal for everyone. Instead, PSA reference ranges are used to describe whether your PSA levels are considered low or high (elevated). Common reference ranges are: Low: 0 2.5 ng/mL. Slightly to moderately elevated: 2.6 10.0 ng/mL. Moderately elevated: 10.0 19.9 ng/mL. Significantly elevated: 20 ng/mL or greater. Sometimes, the test results may report that a condition is present when it is not present (false-positive result). What do the results mean? A test result that is higher than 4 ng/mL may mean that you are at an increased risk for prostate cancer. However, a PSA test by itself is not enough to diagnose prostate cancer. High PSA levels may also be caused by the natural aging process, prostate infection, or BPH. PSA screening cannot tell you if your PSA is high due to cancer or a different cause. A prostate biopsy is the only way to diagnose prostate cancer. A risk of having the PSA test is diagnosing and treating prostate cancer that would never have caused any symptoms or problems (overdiagnosis and overtreatment). Talk with your health care provider about what your results mean. Questions to ask your health care provider Ask your health care provider, or the department that is doing the test: When will my results be ready? How will I get my results? What are my treatment options? What other tests do I need? What are my next steps? Summary The prostate-specific antigen (PSA) test is a screening test for prostate cancer. Your health care provider may recommend that you have a PSA test starting at age 40 or that you have one earlier or later, depending on your risk factors for prostate cancer. A test result that is higher than 4 ng/mL may mean that you are at an increased risk for prostate cancer. However, elevated levels can be caused by a number of conditions other than prostate cancer. Talk with your health care provider about what your results mean. This information is not intended to replace advice given to you by your health care provider. Make sure you discuss any questions you have with your health care provider. Document Released: 02/25/2005 Document Revised: 01/05/2018 Document Reviewed: 10/30/2017 [employer] Patient Education 2020 Caregivers. 09/27/2021 10:40:10 Calorie Counting for Weight Loss Calorie Counting for Weight Loss Calories are units of energy. Your body needs a certain amount of calories from food to keep you going throughout the day. When you eat more calories than your body needs, your body stores the extra calories as fat. When you eat fewer calories than your body needs, your body campbell fat to get the energy it needs. Calorie counting means keeping track of how many calories you eat and drink each day. Calorie counting can be helpful if you need to lose weight. If you make sure to eat fewer calories than your bodyneeds, you should lose weight. Ask your health care provider what a healthy weight is for you. For calorie counting to work, you will need to eat the right number of calories in a day in order to lose a healthy amount of weight per week. A dietitian can help you determine how many calories youneed in a day and will give you suggestions on how to reach your calorie goal. A healthy amount of weight to lose per week is usually 1 2 lb (0.5 0.9 kg). This usually means thatyour daily calorie intake should be reduced by 500 750 calories. Eating 1,200 1,500 calories per day can help most women lose weight. Eating 1,500 1,800 calories per day can help most men lose weight. What is my plan? My goal is to have calories per day. If I have this many calories per day, I should lose around pounds per week. What do I need to know about calorie counting? In order to meet your daily calorie goal, you will need to: Find out how many calories are in each food you would like to eat. Try to do this before you eat. Decide how much of the food you plan to eat. Write down what you ate and how many calories it had. Doing this is called keeping a food log. To successfully lose weight, it is important to balance calorie counting with a healthy lifestyle that includes regular activity. Aim for 150 minutes of moderate exercise (such as walking) or 75 minutes of vigorous exercise (such as running) each week. Where do I find calorie information? The number of calories in a food can be found on a Nutrition Facts label. If a food does not have aNutrition Facts label, try to look up the calories online or ask your dietitian for help. Remember that calories are listed per serving. If you choose to have more than one serving of a food, you will have to multiply the calories per serving by the amount of servings you plan to eat. Forexample, the label on a package of bread might say that a serving size is 1 slice and that there are 90 calories in a serving. If you eat 1 slice, you will have eaten 90 calories. If you eat 2 slices, you will have eaten 180 calories. How do I keep a food log? Immediately after each meal, record the following information in your food log: What you ate. Don't forget to include toppings, sauces, and other extras on the food. How much you ate. This can be measured in cups, ounces, or number of items. How many calories each food and drink had. The total number of calories in the meal. Keep your food log near you, such as in a small notebook in your pocket, or use a mobile asia or website. Some programs will calculate calories for you and show you how many calories you have left forthe day to meet your goal. What are some calorie counting tips? Use your calories on foods and drinks that will fill you up and not leave you hungry: ?Some examples of foods that fill you up are nuts and nut butters, vegetables, lean proteins, and high-fiber foods like whole grains. High-fiber foods are foods with more than 5 g fiber per serving. ?Drinks such as sodas, specialty coffee drinks, alcohol, and juices have a lot of calories, yet do not fill you up. Eat nutritious foods and avoid empty calories. Empty calories are calories you get from foods or beverages that do not have many vitamins or protein, such as candy, sweets, and soda. It is better to have a nutritious high-calorie food (such as an avocado) than a food with few nutrients (such as a bag of chips). Know how many calories are in the foods you eat most often. This will help you calculate calorie counts faster. Pay attention to calories in drinks. Low-calorie drinks include water and unsweetened drinks. Pay attention to nutrition labels for low fat or fat free foods. These foods sometimes have thesame amount of calories or more calories than the full fat versions. They also often have added sugar, starch, or salt, to make up for flavor that was removed with the fat. Find a way of tracking calories that works for you. Get creative. Try different apps or programs ifwriting down calories does not work for you. What are some portion control tips? Know how many calories are in a serving. This will help you know how many servings of a certain food you can have. Use a measuring cup to measure serving sizes. You could also try weighing out portions on a kitchenscale. With time, you will be able to estimate serving sizes for some foods. Take some time to put servings of different foods on your favorite plates, bowls, and cups so you know what a serving looks like. Try not to eat straight from a bag or box. Doing this can lead to overeating. Put the amount you would like to eat in a cup or on a plate to make sure you are eating the right portion. Use smaller plates, glasses, and bowls to prevent overeating. Try not to multitask (for example, watch TV or use your computer) while eating. If it is time to eat, sit down at a table and enjoy your food. This will help you to know when you are full. It will also help you to be aware of what you are eating and how much you are eating. What are tips for following this plan? Reading food labels Check the calorie count compared to the serving size. The serving size may be smaller than what youare used to eating. Check the source of the calories. Make sure the food you are eating is high in vitamins and proteinand low in saturated and trans fats. Shopping Read nutrition labels while you shop. This will help you make healthy decisions before you decide to purchase your food. Make a grocery list and stick to it. Cooking Try to cook your favorite foods in a healthier way. For example, try baking instead of frying. Use low-fat dairy products. Meal planning Use more fruits and vegetables. Half of your plate should be fruits and vegetables. Include lean proteins like poultry and fish. How do I count calories when eating out? Ask for smaller portion sizes. Consider sharing an entree and sides instead of getting your own entree. If you get your own entree, eat only half. Ask for a box at the beginning of your meal and put the rest of your entree in it so you are not tempted to eat it. If calories are listed on the menu, choose the lower calorie options. Choose dishes that include vegetables, fruits, whole grains, low-fat dairy products, and lean protein. Choose items that are boiled, broiled, grilled, or steamed. Stay away from items that are buttered,battered, fried, or served with cream sauce. Items labeled crispy are usually fried, unless stated otherwise. Choose water, low-fat milk, unsweetened iced tea, or other drinks without added sugar. If you want an alcoholic beverage, choose a lower calorie option such as a glass of wine or light beer. Ask for dressings, sauces, and syrups on the side. These are usually high in calories, so you should limit the amount you eat. If you want a salad, choose a garden salad and ask for grilled meats. Avoid extra toppings like alvarado, cheese, or fried items. Ask for the dressing on the side, or ask for olive oil and vinegar or lemon to use as dressing. Estimate how many servings of a food you are given. For example, a serving of cooked rice is cup orabout the size of half a baseball. Knowing serving sizes will help you be aware of how much food you are eating at restaurants. The list below tells you how big or small some common portion sizes arebased on everyday objects: ?1 oz 4 stacked dice. ?3 oz 1 deck of cards. ?1 tsp 1 . ?1 Tbsp a ping-pong ball. ?2 Tbsp 1 ping-pong ball. ? cup baseball. ?1 cup 1 baseball. Summary Calorie counting means keeping track of how many calories you eat and drink each day. If you eat fewer calories than your body needs, you should lose weight. A healthy amount of weight to lose per week is usually 1 2 lb (0.5 0.9 kg). This usually means reducing your daily calorie intake by 500 750 calories. The number of calories in a food can be found on a Nutrition Facts label. If a food does not have aNutrition Facts label, try to look up the calories online or ask your dietitian for help. Use your calories on foods and drinks that will fill you up, and not on foods and drinks that will leave you hungry. Use smaller plates, glasses, and bowls to prevent overeating. This information is not intended to replace advice given to you by your health care provider. Make sure you discuss any questions you have with your health care provider. Document Released: 01/23/2006 Document Revised: 10/12/2018 Document Reviewed: 12/23/2016 [employer] Patient Education 2020 Caregivers. Follow Up Care 10/22/2020 15:01:04 With:CORNELIO ROSARIO, Yosef Bunch, URL Address: [address] [place], [place] [id number] Business (1) When:Within 1 Year(s) Comments:w/PSA [facility] 06-27-2022 Miscellaneous Notes* Telephone Encounter - Nicolas Hwang MD - 08/02/2021 5:00 PM EDT The patient was found to have a cystic mass in his groin. He will undergo an ultrasound-guided biopsy at [place]. Dr. Chanel will inform me of the results. If benign I will see him back in Octoberas scheduled. If malignant I will see him after the biopsy to discuss further work-up and treatment. Thanks, BRM * Telephone Encounter - Melodie Ladd - 08/02/2021 1:42 PM EDT Please call Dr Chanel regarding Farfan Phone number is [phone] thanks! [facility] Miscellaneous Notes* Telephone Encounter - Pretty Aparicio RN - 05/14/2021 1:11 PM EDT Informed pt of Dr Hwang's message. Pt verbalized understanding and denies further needs at this time. Pretty Aparicio RN * Telephone Encounter - Pretty Aparicio RN - 05/14/2021 1:11 PM EDT ----- Message from Nicolas Hwang MD sent at 05/14/2021 11:21 AM EDT ----- Please inform the patient that his labs are stable, and I would recommend continued follow-up as planned. GABI El documented in this encounterL[facility]04-[facility]22 Miscellaneous Notes* Telephone Encounter - Pretty Aparicio RN - 05/14/2021 1:02 PM EDT Informed pt of Dr Hwang's message. Pt verbalized understanding and denies further needs at this time. Pretty Aparicio RN * Telephone Encounter - Pretty Aparicio RN - 05/14/2021 1:02 PM EDT ----- Message from Nicolas Hwang MD sent at 05/14/2021 11:21 AM EDT ----- Please inform the patient that his labs are stable, and I would recommend continued follow-up as planned. GABI El documented in this encounterL[facility]04-01-[facility]22 Miscellaneous Notes* Telephone Encounter - Bettina Sargent - 10/21/2021 1:38 PM EDT Patient scheduled to see you on Monday11/02/21 for follow up with labs. Please add lab orders. Thanks. Bettina Sargent MA documented in this encounterL[facility]10-[facility]21 Evaluation note* Encounter Date Diagnosis Assessment Notes Treatment Notes Treatment Clinical Notes Nov, Left acute otitis media (ICD-10 - H66.92) Advised patient that covid rapid antigen test was negative. Discussed diagnosis with parent. Reviewed allergies and recent antibiotic use. Instructed to take antibiotic as directed, complete entire course even if feeling better. Supportive care as directed, push fluids and rest, Tylenol/Motrin as needed for fever or discomfort, avoid putting anything inside the ear (Qtips, etc.) or submerging head underwater. Patient should start to feel better in next 48 hours, if no improvement in 2 days follow up with UC or PCP. Immediate eval if patient notices redness or swelling around or behind the ear, new or severe headache, lethargy, new or worsening fever, SOB or difficulty breathing, decreased fluid intake, dehydration, rash, or any other concerning symptoms. Parent verbalizes understanding and is agreeable to treatment plan Nov, Contact with and (suspected) exposure to other viral communicable diseases (ICD-10 - Z20.828) Nov, Other Additional time spent conducting pre-visit phone call, screening for symptoms, instructions on social distancing, application and removal of PPE, and cleaning of examination room, equipment and supplies was preformed. Patient education given for testing methodology and results. Patient care instructions given in writting by [facility] document. [employer] Other 04-14-2020 Evaluation + Plan note Future Appointments Appointment Date:01/30/2024 11:00:00 AM Scheduled [facility]: [facility] Type:[facility] Echo () Appointment Date:05/20/2024 12:45:00 PM Scheduled Provider:Yosef GRIMES MD Location:[facility] [place] Appointment Type:URO Office Visit Appointment Date:10/24/2024 11:00:00 AM Scheduled Provider: Location:[facility] [place] Appointment Type: Medicare Wellness Subsequent Future Scheduled Tests Radiology* Echo Transthoracic Complete 01/30/24 [facility] Evaluation + Plan note Future Appointments Appointment Date:09/26/2022 10:15:00 AM Scheduled Provider:Yosef GRIMES MD Location:[facility] Appointment Type:URO Office Visit Diagnostic Tests Pending * PSA Total 09/27/21 [facility] evaluation + Plan note Future Appointments Appointment Date:10/11/2022 01:00:00 PM Scheduled Provider: Location:[facility] Appointment Type:FM Medicare Wellness Subsequent [facility] evaluation + Plan note Future Appointments Appointment Date:11/18/2022 11:00:00 AM Scheduled Provider:Yosef GRIMES MD Location:[facility] Appointment Type:URO Office Visit Appointment Date:10/13/2023 01:00:00 PM Scheduled Provider: Location:[facility] Appointment Type: Medicare Wellness Subsequent Diagnostic Tests Pending * UroVysion Fish and Urine Cyto ([facility]) [facility]22 [facility]ments Appointment Date:10/13/2023 01:00:00 PM Scheduled Provider: Location:[facility] Appointment Type:FM Medicare Wellness Subsequent [facility] evaluation + Plan note Future Appointments Appointment Date:05/22/2023 11:15:00 AM Scheduled Provider:Yosef GRIMES MD Location:[facility] Appointment Type:URO Office Visit Appointment Date:10/13/2023 01:00:00 PM Scheduled Provider: Location:[facility] Appointment Type: Medicare Wellness Subsequent Diagnostic Tests Pending * PSA Total 04/07/23 [facility] evaluation + Plan note Future Appointments Appointment Date:10/23/2023 01:00:00 PM Scheduled Provider: Location:[facility] Appointment Type: Medicare Wellness Subsequent Appointment Date:11/24/2023 11:00:00 AM Scheduled Provider:Yosef GRIMES MD Location:[facility] Appointment Type:URO Office Visit [facility] evaluation + Plan note Future Appointments Appointment Date:05/20/2024 12:45:00 PM Scheduled Provider:[facility] Office Visit Appointment Date:10/24/2024 11:00:00 AM Scheduled Provider: Location:[facility] Appointment Type:FM Medicare Wellness Subsequent Diagnostic Tests Pending * PSA Total 03/09/24 [facility] evaluation + Plan note Future Appointments Appointment Date:01/08/2024 09:00:00 AM Scheduled Provider:[facility]IMES [facility] Type:URO Office Visit Appointment Date:05/20/2024 12:45:00 PM Scheduled Provider:Yosef GRIMES MD [facility] App[facility] Type:URO Office Visit Appointment Date:10/24/2024 11:00:00 AM Scheduled Provider: Location:[facility] Appointment Type:FM Medicare Wellness Subsequent [facility] evaluation + Plan note Future Appointments Appointment Date:01/08/2024 09:00:00 AM Scheduled Provider:Yosef GRIMES MD [facility] App[facility] Type:URO Office Visit Appointment Date:05/20/2024 12:45:00 PM Scheduled Provider:Yosef GRIMES MD [facility] App[facility] Type:URO Office Visit Appointment Date:10/24/2024 11:00:00 AM Scheduled Provider: Location:[facility] Appointment Type: Medicare Wellness Subsequent Diagnostic Tests Pending * Urine Culture 01/01/24 [facility] Evaluation + Plan note Future Appointments Appointment Date:01/10/2024 01:00:00 PM Scheduled Provider:Yosef GRIMES MD Location:[facility] [place] Appointment Type:URO Procedure 15 min Appointment Date:05/20/2024 12:45:00 PM Scheduled Provider:[facility]IM[facility] Type:[facility] Office Visit Appointment Date:10/24/2024 11:00:00 AM Scheduled Provider: Location:[facility] Appointment Type: Medicare Wellness Subsequent Diagnostic Tests Pending * Urine Cytology ([facility]) 01/08/24 [facility] Evaluation + Plan note Future Appointments Appointment Date:01/10/2024 01:00:00 PM Scheduled Provider:Yosef GRIMES MD Location:[facility] [place] Appointment Type:URO Procedure 15 min Appointment Date:05/20/2024 12:45:00 PM Scheduled Provider:Yosef GRIMES MD [facility] Appointment Type:URO Office Visit Appointment Date:10/24/2024 11:00:00 AM Scheduled Provider: Location:[facility] Appointment Type: Medicare Wellness Subsequent [facility] evaluation + Plan note Future Appointments Appointment Date:01/26/2024 08:45:00 AM Scheduled Provider:[facility]IMES [facility] Type:URO Office Visit Appointment Date:05/20/2024 12:45:00 PM Scheduled Provider:Yosef GRIMES MD [facility] Appointment Type:URO Office Visit Appointment Date:10/24/2024 11:00:00 AM Scheduled Provider: Location:[facility] Appointment Type: Medicare Wellness Subsequent [facility] Evaluation + Plan note Future Appointments Appointment Date:02/28/2024 08:45:00 AM Scheduled Provider:Yosef GRIMES MD Location:[facility] [place] Appointment Type:URO Office Visit Appointment Date:05/20/2024 12:45:00 PM Scheduled Provider:Yosef GRIMES MD Location:[facility] Man[place] Appointment Type:URO Office Visit Appointment Date:10/24/2024 11:00:00 AM Scheduled [facility] Medicare Wellness Subsequent [facility] Evaluation note* Diagnosis Monoclonal gammopathy- Primary Monoclonal paraproteinemia Prostate cancer (HCC) Malignant neoplasm of prostate [facility] Monoclonal gammopathy- Primary Monoclonal paraproteinemia [facility] Diagnosis Monoclonal gammopathy- Primary Monoclonal paraproteinemia [facility] Diagnosis Monoclonal gammopathy- Primary Monoclonal paraproteinemia Prostate cancer (HCC) Malignant neoplasm of prostate Essential hypertension Unspecified essential hypertension Chronic renal insufficiency, stage 3 (moderate) (HCC) [facility] noteNo assessment information availableSam[facility] Work Phone: Evaluation note* Diagnosis Malignant neoplasm of prostate (HCC)- Primary Malignant neoplasm of prostate [facility] Diagnosis Malignant neoplasm of prostate (HCC) Malignant neoplasm of prostate [facility] Diagnosis Malignant neoplasm of prostate (HCC)- Primary Malignant neoplasm of prostate [facility] Diagnosis Malignant neoplasm of prostate (HCC)- Primary Malignant neoplasm of prostate [facility] Diagnosis Skin lesion of right arm- Primary Unspecified disorder of skin and subcutaneous tissue History of squamous cell carcinoma Personal history of malignant neoplasm of other site [facility] Diagnosis Malignant neoplasm of prostate (HCC) Malignant neoplasm of prostate [facility] Diagnosis Malignant neoplasm of prostate (HCC)- Primary Malignant neoplasm of prostate [facility] Diagnosis Malignant neoplasm of prostate (HCC)- Primary Malignant neoplasm of prostate [facility] Diagnosis Prostate cancer (HCC)- Primary Malignant neoplasm of prostate Monoclonal gammopathy Monoclonal paraproteinemia [facility] Diagnosis Secondary hyperparathyroidism (HCC)- Primary Secondary hyperparathyroidism (of renal origin) Platelets decreased (HCC) Thrombocytopenia, unspecified [facility] Diagnosis Malignant neoplasm of prostate (HCC)- Primary Malignant neoplasm of prostate [facility] Diagnosis Malignant neoplasm of prostate (HCC)- Primary Malignant neoplasm of prostate [facility] Diagnosis Prostate cancer (HCC)- Primary Malignant neoplasm of prostate Monoclonal gammopathy Monoclonal paraproteinemia documented in this encounter [facility] note* Diagnosis Prostate cancer (HCC)- Primary Malignant neoplasm of prostate Monoclonal gammopathy Monoclonal paraproteinemia Chronic renal insufficiency, stage 3 (moderate) (HCC) Essential hypertension Unspecified essential hypertension documented in this encounter [facility] note* Diagnosis Malignant neoplasm of prostate (HCC)- Primary Malignant neoplasm of prostate documented in this encounter [facility] note* Diagnosis Prostate cancer (HCC)- Primary Malignant neoplasm of prostate Monoclonal gammopathy Monoclonal paraproteinemia documented in this encounter [facility] note* Diagnosis Malignant neoplasm of prostate (HCC)- Primary Malignant neoplasm of prostate documented in this encounter [facility] general Narrative - Reported* Type Description Date Medical History hypertension Medical History HYPONATREMIA Medical History ACUTE CHRONIC RENAL FAILURE Medical History PLEURISY Surgical History cancer, skin Lip and Hand 1999 Surgical History PROSTATECTOMY Surgical History SKIN LESIONS REMOVED X2 09/2020 Hospitalization History SEE ABOVE Hospitalization History PNEUMONIA AT AGE 7 [employer] Other Hospital course Narrative No data available for this section [facility] Hospital Discharge instructions No data available for this section [facility] No data available for this section [facility] Summary Purpose Family History No Family History Records FoundNo Family History Records Found No data available for this section No data available for this section No data available for this section No data available for this section No data available for this section No data available for this section No Family History Records Found No data available for this section No data available for this section No Family History Records Found No data available for this section No Family History Records Found No data available for this section No data available for this section No Family History Records FoundNo Family History Records Found Advance Directives No Advanced Directives Records FoundNo Advanced Directives Records FoundNo Advanced Directives Records FoundNo Advanced Directives Records FoundNo Advanced Directives Records FoundNo Advanced Directives Records FoundNo Advanced Directives Records Found Reason for Referral Specialty Diagnoses / Procedures Referred By Contac t Referred To Contact Dermatology Diagnoses Skin lesion of right arm History of squamous cell carcinoma Procedures CONSULT TO DERMATOLOGY OFFICE/OUTPATIENT NEW HIGH MDM 60-74 MINUTES David Kumari MD [address] [place] [address] [place] [address] Referral ID Status Reason Start Date Expiration Date Visits Requested Visits Authorized [id number] Pending Review PCP Requested Referral 3 12/19/2023 1 1 Specialty Diagnoses / Procedures Referred By Contac t Referred To Contact Diagnoses Malignant neoplasm of prostate (HCC) Procedures CT SIM PLANNING RADIATION ONCOLOGY THER RAD SIMULAJ-AIDED FIELD SETTING COMPLEX David Kumari MD [address] [place] [address] [place] [address] Referral ID Status Reason Start Date Expiration Date Visits Requested Visits Authorized [id number] Pending Review PCP Requested Referral 12/15/2022 03/08/2023 1 1 Specialty Diagnoses / Procedures Referred By Contac t Referred To Contact MR IMAGING Diagnoses Malignant neoplasm of prostate (HCC) Procedures MRI PROSTATE WO/W IVCON MRI PELVIS W/O & W/CONTRAST MATERIAL David Kumari MD [address] [place] [address] [place] [address] [place] [id number] Referral ID Status Reason Start Date Expiration Date Visits Requested Visits Authorized [id number] Pending Review Auto-Generat ed Referral 3 12/15/2023 1 1 Additional Source Comments Source Comments (unrecognize d section and content) In the event this informatio n is protected by the Federal Confidentiality of Alcohol and Drug Abuse Patient Records regulations: The Federal rules restrict any use of the information to criminally investigate or prosecute any alcohol or drug abuse patient.[facility] HospitalIn the event this information is protected by the Federal Confidentiality of Alcohol and Drug Abuse Patient Records regulations: The Federal rules restrict any use of the information to criminally investigate or prosecute any alcohol or drug abuse patient.[facility] the event this information is protected by the Federal Confidentiality of Alcohol and Drug Abuse Patient Records regulations: The Federal rules restrict any use of the information to criminally investigate or prosecute any alcohol or drug abuse patient.[facility] HospitalIn the event this information is protected by the Federal Confidentiality of Alcohol and Drug Abuse Patient Records regulations: The Federal rules restrict any use of the information to criminally investigate or prosecute any alcohol or drug abuse patient.[facility] HospitalIn the event this information is protected by the Federal Confidentiality of Alcohol and Drug Abuse Patient Records regulations: The Federal rules restrict any use of the information to criminally investigate or prosecute any alcohol or drug abuse patient.[facility] the event this information is protected by the Federal Confidentiality of Alcohol and Drug Abuse Patient Records regulations: The Federal rules restrict any use of the information to criminally investigate or prosecute any alcohol or drug abuse patient.[facility] HospitalIn the event this information is protected by the Federal Confidentiality of Alcohol and Drug Abuse Patient Records regulations: The Federal rules restrict any use of the information to criminally investigate or prosecute any alcohol or drug abuse patient.[facility] HospitalIn the event this information is protected by the Federal Confidentiality of Alcohol and Drug Abuse Patient Records regulations: The Federal rules restrict any use of the information to criminally investigate or prosecute any alcohol or drug abuse patient.[facility] HospitalIn the event this information is protected by the Federal Confidentiality of Alcohol and Drug Abuse Patient Records regulations: The Federal rules restrict any use of the information to criminally investigate or prosecute any alcohol or drug abuse patient.[facility] HospitalIn the event this information is protected by the Federal Confidentiality of Alcohol and Drug Abuse Patient Records regulations: The Federal rules restrict any use of the information to criminally investigate or prosecute any alcohol or drug abuse patient.[facility] HospitalIn the event this information is protected by the Federal Confidentiality of Alcohol and Drug Abuse Patient Records regulations: The Federal rules restrict any use of the information to criminally investigate or prosecute any alcohol or drug abuse patient.[facility] HospitalIn the event this information is protected by the Federal Confidentiality of Alcohol and Drug Abuse Patient Records regulations: The Federal rules restrict any use of the information to criminally investigate or prosecute any alcohol or drug abuse patient.[facility] HospitalIn the event this information is protected by the Federal Confidentiality of Alcohol and Drug Abuse Patient Records regulations: The Federal rules restrict any use of the information to criminally investigate or prosecute any alcohol or drug abuse patient.[facility] HospitalIn the event this information is protected by the Federal Confidentiality of Alcohol and Drug Abuse Patient Records regulations: The Federal rules restrict any use of the information to criminally investigate or prosecute any alcohol or drug abuse patient.[facility] HospitalIn the event this information is protected by the Federal Confidentiality of Alcohol and Drug Abuse Patient Records regulations: The Federal rules restrict any use of the information to criminally investigate or prosecute any alcohol or drug abuse patient.[facility] HospitalIn the event this information is protected by the Federal Confidentiality of Alcohol and Drug Abuse Patient Records regulations: The Federal rules restrict any use of the information to criminally investigate or prosecute any alcohol or drug abuse patient.[facility] HospitalIn the event this information is protected by the Federal Confidentiality of Alcohol and Drug Abuse Patient Records regulations: The Federal rules restrict any use of the information to criminally investigate or prosecute any alcohol or drug abuse patient.[facility] HospitalIn the event this information is protected by the Federal Confidentiality of Alcohol and Drug Abuse Patient Records regulations: The Federal rules restrict any use of the information to criminally investigate or prosecute any alcohol or drug abuse patient.[facility] HospitalIn the event this information is protected by the Federal Confidentiality of Alcohol and Drug Abuse Patient Records regulations: The Federal rules restrict any use of the information to criminally investigate or prosecute any alcohol or drug abuse patient.[facility] HospitalIn the event this information is protected by the Federal Confidentiality of Alcohol and Drug Abuse Patient Records regulations: The Federal rules restrict any use of the information to criminally investigate or prosecute any alcohol or drug abuse patient.[facility] HospitalIn the event this information is protected by the Federal Confidentiality of Alcohol and Drug Abuse Patient Records regulations: The Federal rules restrict any use of the information to criminally investigate or prosecute any alcohol or drug abuse patient.[facility] HospitalIn the event this information is protected by the Federal Confidentiality of Alcohol and Drug Abuse Patient Records regulations: The Federal rules restrict any use of the information to criminally investigate or prosecute any alcohol or drug abuse patient.[facility] HospitalIn the event this information is protected by the Federal Confidentiality of Alcohol and Drug Abuse Patient Records regulations: The Federal rules restrict any use of the information to criminally investigate or prosecute any alcohol or drug abuse patient.[facility] HospitalIn the event this information is protected by the Federal Confidentiality of Alcohol and Drug Abuse Patient Records regulations: The Federal rules restrict any use of the information to criminally investigate or prosecute any alcohol or drug abuse patient.[facility] HospitalIn the event this information is protected by the Federal Confidentiality of Alcohol and Drug Abuse Patient Records regulations: The Federal rules restrict any use of the information to criminally investigate or prosecute any alcohol or drug abuse patient.[facility] HospitalIn the event this information is protected by the Federal Confidentiality of Alcohol and Drug Abuse Patient Records regulations: The Federal rules restrict any use of the information to criminally investigate or prosecute any alcohol or drug abuse patient.[facility] HospitalIn the event this information is protected by the Federal Confidentiality of Alcohol and Drug Abuse Patient Records regulations: The Federal rules restrict any use of the information to criminally investigate or prosecute any alcohol or drug abuse patient.[facility] HospitalIn the event this information is protected by the Federal Confidentiality of Alcohol and Drug Abuse Patient Records regulations: The Federal rules restrict any use of the information to criminally investigate or prosecute any alcohol or drug abuse patient.[facility] HospitalIn the event this information is protected by the Federal Confidentiality of Alcohol and Drug Abuse Patient Records regulations: The Federal rules restrict any use of the information to criminally investigate or prosecute any alcohol or drug abuse patient.[facility] HospitalIn the event this information is protected by the Federal Confidentiality of Alcohol and Drug Abuse Patient Records regulations: The Federal rules restrict any use of the information to criminally investigate or prosecute any alcohol or drug abuse patient.[facility] HospitalIn the event this information is protected by the Federal Confidentiality of Alcohol and Drug Abuse Patient Records regulations: The Federal rules restrict any use of the information to criminally investigate or prosecute any alcohol or drug abuse patient.[facility] HospitalIn the event this information is protected by the Federal Confidentiality of Alcohol and Drug Abuse Patient Records regulations: The Federal rules restrict any use of the information to criminally investigate or prosecute any alcohol or drug abuse patient.[facility] HospitalIn the event this information is protected by the Federal Confidentiality of Alcohol and Drug Abuse Patient Records regulations: The Federal rules restrict any use of the information to criminally investigate or prosecute any alcohol or drug abuse patient.[facility] HospitalIn the event this information is protected by the Federal Confidentiality of Alcohol and Drug Abuse Patient Records regulations: The Federal rules restrict any use of the information to criminally investigate or prosecute any alcohol or drug abuse patient.[facility] HospitalIn the event this information is protected by the Federal Confidentiality of Alcohol and Drug Abuse Patient Records regulations: The Federal rules restrict any use of the information to criminally investigate or prosecute any alcohol or drug abuse patient.[facility] HospitalIn the event this information is protected by the Federal Confidentiality of Alcohol and Drug Abuse Patient Records regulations: The Federal rules restrict any use of the information to criminally investigate or prosecute any alcohol or drug abuse patient.[facility] HospitalIn the event this information is protected by the Federal Confidentiality of Alcohol and Drug Abuse Patient Records regulations: The Federal rules restrict any use of the information to criminally investigate or prosecute any alcohol or drug abuse patient.[facility] HospitalIn the event this information is protected by the Federal Confidentiality of Alcohol and Drug Abuse Patient Records regulations: The Federal rules restrict any use of the information to criminally investigate or prosecute any alcohol or drug abuse patient.[facility] HospitalIn the event this information is protected by the Federal Confidentiality of Alcohol and Drug Abuse Patient Records regulations: The Federal rules restrict any use of the information to criminally investigate or prosecute any alcohol or drug abuse patient.[facility] HospitalIn the event this information is protected by the Federal Confidentiality of Alcohol and Drug Abuse Patient Records regulations: The Federal rules restrict any use of the information to criminally investigate or prosecute any alcohol or drug abuse patient.[facility] HospitalIn the event this information is protected by the Federal Confidentiality of Alcohol and Drug Abuse Patient Records regulations: The Federal rules restrict any use of the information to criminally investigate or prosecute any alcohol or drug abuse patient.[facility] Reason for Visit (unrecogniz ed section and content) Reason Comments Lab Orders Reason Comments Results Reason Comments Call Back 48 Hours Reason Comments monoclonal gammopathy Follow up Reason Comments Nm Pet Request Reason Comments Bladder Cancer Reason Comments Radiology MRI Specialty Diagnoses / Procedures Referred By Contac t Referred To Contact MR IMAGING Diagnoses Malignant neoplasm of prostate (HCC) Procedures MRI PROSTATE WO/W IVCON MRI PELVIS W/O & W/CONTRAST MATERIAL David Kumari MD [address] [place], [place] [address] [facility] [place] [address] Mr Imaging [id number] Referral ID Status Reason Start Date Expiration Date V isits Requested Visits Authorized [id number] Closed Auto-Generate d Referral 11/15/2022 12/15/2023 1 1 Reason Comments Patient Education Reason Onset Date Comments Simulation Request Form 12/08/2022 Reason Comments Care Coordination Oral Anti-Cancer Age nt Follow Up Reason Comments Radiotherapy On-treatment Visit Reason Comments Radiotherapy On-treatment Visit Reason Comments Appointment Confirmation Reason Comments Prostate Cancer 4 week follow up Reason Comments Medication Problem Reason Onset Date Comments Refill Request 01/16/2023 Reason Comments Prostate Cancer Reason Comments Radiology NM Specialty Diagnoses / Procedures Referred By Contac t Referred To Contact Radiation Oncology / RADIATION ONCOLOGY Diagnoses Malignant neoplasm of prostate Sim treating prostate eng IMRT PROSTATE 39FX PLUS SIM Procedures INTENSITY MODULATED RADIATION TX DLVR SIMPLE SIMULATION JOSE IMRT PROSTATE 39FX PLUS SIM David Kumari MD [facility] [place] [address] David Kumari MD [address] [place] [address] [place] [address] Referral ID Status Reason Start Date Expiration Date Visits Re quested Visits Authorized [id number] Closed 11/23/2022 06/05/2023 40 40 Reason Comments Prostate Cancer Followup Reason Comments Hematuria Reason Comments Radiology CT Specialty Diagnoses / Procedures Referred By Contcori t Referred To Contact [facility] Diagnoses Prostate cancer (HCC) Procedures IMAGING STUDY ORDERED Yosef Grimes MD [address] [place] [address] [facility] [address] [place] [address] Referral ID Status Reason Start Date Expiration Date Visits Requested Visits Authorized [id number] Pending Review Patient Cleared - Admin/Chair man/Directo r advise to proceed or did not respond 01/10/2024 07/08/2024 1 1 Care Team (unrecognized sect ion and content) Team Status: Inactive Member Role Status Dates Angelina Holder , SSIS DEVELOPER-C Attending Provider Active Cs Associate Relationship Specialty Start Date End Date Shahriar Stephenson MD [address] [place] [address] PCP - General Family Medicine 11/15/22 Cs Associate Relationship Specialty Start Date End Date Shahriar Stephenson MD [address] [place], [place] [id number] PCP - General Family Medicine 11/15/22 Cs Associate Relationship Specialty Start Date End Date Shahriar Stephenson MD [address] [place] [address] PCP - General Family Medicine 11/15/22 Cs Associate Relationship Specialty Start Date End Date Shahriar Stephenson MD [address] [place] [address] PCP - General Family Medicine 11/15/22 David Kumari MD [address] [place] [address] Physician Radiation Oncology 12/12/22 Elio Payne, INSTALLER HELPER.TOY ASSEMBLER [address] [place] [address] [place] [address] Nurse Practitioner Hematology/Oncology 12/12/22 Nicolas Hwang MD [address] [place] [address] Physician Hematology/Oncology 12/12/22 Nancy Ray, SINDI [address] [place] [address] [place] [address] Specialty Rope Tier Hematology/Oncology 12/12/22 Cs Associate Relationship Specialty Start Date End Date Shahriar Stephenson MD [address] [place] [address] PCP - General Family Medicine 11/15/22 Cs Associate Relationship Specialty Start Date End Date Shahriar Stephenson MD [address] [place] [address] PCP - General Family Medicine 11/15/22 David Kumari MD [address] [place] [address] [place] [address] Physician Radiation Oncology 12/12/22 Elio Payne, INSTALLER HELPER.TOY ASSEMBLER [address] [place] [address] Nurse Practitioner Hematology/Oncology 12/12/22 Nicolas Hwang MD [address] [employer] [facility] [place] [address] Physician Hematology/Oncology 12/12/22 Nancy Ray, SINDI [address] [employer] [facility] [place] [address] Specialty Rope Tier Hematology/Oncology 12/12/22 Cs Associate Relationship Specialty Start Date End Date Shahriar Stephenson MD [address] [place] [address] PCP - General Family Medicine 11/15/22 David Kumari MD [address] [place] [address] Physician Radiation Oncology 12/12/22 Elio Payne APRN.TOY ASSEMBLER [address] [employer] [facility] [place] [address] Nurse Practitioner Hematology/Oncology 12/12/22 Nicolas Hwang MD [address] [employer] [facility] [place] [address] Physician Hematology/Oncology 12/12/22 Nancy Ray, SINDI [address] [facility] [place] [address] Specialty Rope Tier Hematology/Oncology 12/12/22 Cs Associate Relationship Specialty Start Date End Date Shahriar Stephenson MD [address] [place] [address] PCP - General Family Medicine 11/15/22 David Kumari MD [address] [place] [address] Physician Radiation Oncology 12/12/22 Elio Payne, INSTALLER HELPER.TOY ASSEMBLER [address] [place] [address] Nurse Practitioner Hematology/Oncology 12/12/22 Nicolas Hwang MD [address] [facility] [place] [address] Physician Hematology/Oncology 12/12/22 Nancy Ray, SINDI [address] [place] [address] Specialty Rope Tier Hematology/Oncology 12/12/22 Cs Associate Relationship Specialty Start Date End Date Shahriar Stephenson MD [facility] [place] [address] PCP - General Family Medicine 11/15/22 David Kumari MD [address] [facility] [place] [address] Physician Radiation Oncology 12/12/22 Elio Payne, INSTALLER HELPER.TOY ASSEMBLER [address] [place] [address] Nurse Practitioner Hematology/Oncology 12/12/22 Nicolas Hwang MD [address] [place] [address] Physician Hematology/Oncology 12/12/22 Nancy Ray, SINDI [address] [place] [address] Specialty Rope Tier Hematology/Oncology 12/12/22 Cs Associate Relationship Specialty Start Date End Date Shahriar Stephenson MD [address] [place] [place] [address] PCP - General Family Medicine 11/15/22 David Kumari MD [address] [place] [address] Physician Radiation Oncology 12/12/22 Elio Payne, INSTALLER HELPER.TOY ASSEMBLER [address] [place] [address] Nurse Practitioner Hematology/Oncology 12/12/22 Nicolas Hwang MD [address] [place] [address] Physician Hematology/Oncology 12/12/22 Nancy Ray, SINDI [address] [place] [address] Specialty Rope Tier Hematology/Oncology 12/12/22 Cs Associate Relationship Specialty Start Date End Date Shahriar Stephenson MD [address] [address] PCP - General Family Medicine 11/15/22 David Kumari MD [address] [place] [address] Physician Radiation Oncology 12/12/22 Elio Payne, INSTALLER HELPER.TOY ASSEMBLER [address] [place] [address] Nurse Practitioner Hematology/Oncology 12/12/22 Nicolas Hwang MD [address] [place] [address] Physician Hematology/Oncology 12/12/22 Nancy Ray, RN [address] [facility] [place] [address] Specialty Rope Tier Hematology/Oncology 12/12/22 Cs Associate Relationship Specialty Start Date End Date Shahriar Stephenson MD [address] [place] [address] PCP - General Family Medicine 11/15/22 David Kumari MD [address] [place] [address] Physician Radiation Oncology 12/12/22 Elio Payne APRN.TOY ASSEMBLER [address] [place] [address] Nurse Practitioner Hematology/Oncology 12/12/22 Nicolas Hwang MD [address] [facility] [place] [address] Physician Hematology/Oncology 12/12/22 Nancy Ray, SINDI [address] [facility] [place] [address] Specialty Rope Tier Hematology/Oncology 12/12/22 Cs Associate Relationship Specialty Start Date End Date Shahriar Stephenson MD [address] [place] [address] PCP - General Family Medicine 11/15/22 David Kumari MD [address] [place] [address] Physician Radiation Oncology 12/12/22 Elio Payne, INSTALLER HELPER.TOY ASSEMBLER [address] [facility] [place] [address] Nurse Practitioner Hematology/Oncology 12/12/22 Nicolas Hwang MD [address] [facility] [place] [address] Physician Hematology/Oncology 12/12/22 Nancy Ray, SINDI [address] [employer] [facility] [place] [address] Specialty Rope Tier Hematology/Oncology 12/12/22 Cs Associate Relationship Specialty Start Date End Date Shahriar Stephenson MD [address] [place] [address] PCP - General Family Medicine 11/15/22 David Kumari MD [address] [facility] [place] [address] Physician Radiation Oncology 12/12/22 Elio Payne, INSTALLER HELPER.TOY ASSEMBLER [address] [facility] [place] [address] Nurse Practitioner Hematology/Oncology 12/12/22 Nicolas Hwang MD [address] [facility] [place] [address] Physician Hematology/Oncology 12/12/22 Nancy Ray, SINDI [address] [facility] [place] [address] Specialty Rope Tier Hematology/Oncology 12/12/22 Cs Associate Relationship Specialty Start Date End Date Shahriar Stephenson MD [address] [place] [address] PCP - General Family Medicine 11/15/22 David Kumari MD [address] [facility] [place] [address] Physician Radiation Oncology 12/12/22 Elio Payne, INSTALLER HELPER.TOY ASSEMBLER [address] [facility] [place] [address] Nurse Practitioner Hematology/Oncology 12/12/22 Nicolas Hwang MD [address] [facility] [place] [address] Physician Hematology/Oncology 12/12/22 Nancy Ray, SINDI [address] [facility] [place] [address] Specialty Rope Tier Hematology/Oncology 12/12/22 Cs Associate Relationship Specialty Start Date End Date Shahriar Stephenson MD [address] [place] [address] PCP - General Family Medicine 11/15/22 David Kumari MD [address] [facility] [place] [address] Physician Radiation Oncology 12/12/22 Elio Payne, INSTALLER HELPER.TOY ASSEMBLER [address] [facility] [place] [address] Nurse Practitioner Hematology/Oncology 12/12/22 Nicolas Hwang MD [address] [facility] [place] [address] Physician Hematology/Oncology 12/12/22 Nancy Ray, SINDI [address] [facility] [place] [address] Specialty Rope Tier Hematology/Oncology 12/12/22 Cs Associate Relationship Specialty Start Date End Date Shahriar Stephenson MD [address] [place] [address] PCP - General Family Medicine 11/15/22 David Kumari MD [address] [facility] [place] [address] Physician Radiation Oncology 12/12/22 Elio Payne, INSTALLER HELPER.TOY ASSEMBLER [address] [employer] [facility] [place] [address] Nurse Practitioner Hematology/Oncology 12/12/22 Nicolas Hwang MD [address] [facility] [place] [address] Physician Hematology/Oncology 12/12/22 Nancy Ray RN [address] [facility] [place] [address] Specialty Rope Tier Hematology/Oncology 12/12/22 Cs Associate Relationship Specialty Start Date End Date Shahriar Stephenson MD [address] [place] [address] PCP - General Family Medicine 11/15/22 David Kumari MD [address] [facility] [place] [address] Physician Radiation Oncology 12/12/22 Elio Payne, INSTALLER HELPER.TOY ASSEMBLER [address] [facility] [place] [address] Nurse Practitioner Hematology/Oncology 12/12/22 Nicolas Hwang MD [address] [employer] [facility] [place] [address] Physician Hematology/Oncology 12/12/22 Nancy Ray, SINDI [address] [facility] [place] [address] Specialty Rope Tier Hematology/Oncology 12/12/22 Cs Associate Relationship Specialty Start Date End Date Shahriar Stephenson MD [address] [place] [address] PCP - General Family Medicine 11/15/22 David Kumari MD [address] [facility] [place] [address] Physician Radiation Oncology 12/12/22 Elio Payne APRN.TOY ASSEMBLER [address] [employer] [facility] [place] [address] Nurse Practitioner Hematology/Oncology 12/12/22 Nicolas Hwang MD [address] [facility] [place] [address] Physician Hematology/Oncology 12/12/22 Nancy Ray, RN [address] [employer] [facility] [place] [address] Specialty Rope Tier Hematology/Oncology 12/12/22 Cs Associate Relationship Specialty Start Date End Date Shahriar Stephenson MD [address] [place] [address] PCP - General Family Medicine 11/15/22 David Kumari MD [address] [facility] [place] [address] Physician Radiation Oncology 12/12/22 Elio Payne, INSTALLER HELPER.TOY ASSEMBLER [address] [facility] [place] [address] Nurse Practitioner Hematology/Oncology 12/12/22 Nicolas Hwang MD [address] [facility] [place] [address] Physician Hematology/Oncology 12/12/22 Nancy Ray, SINDI [address] [facility] [place] [address] Specialty Rope Tier Hematology/Oncology 12/12/22 Cs Associate Relationship Specialty Start Date End Date Shahriar Stephenson MD [facility] [place] [address] PCP - General Family Medicine 11/15/22 David Kumari MD [address] [facility] [place] [address] Physician Radiation Oncology 12/12/22 Elio Payne, INSTALLER HELPER.TOY ASSEMBLER [address] [facility] [place] [address] Nurse Practitioner Hematology/Oncology 12/12/22 Nicolas Hwang MD [address] [facility] [place] [address] Physician Hematology/Oncology 12/12/22 Nancy Ray, SINDI [address] [facility] [place] [address] Specialty Rope Tier Hematology/Oncology 12/12/22 Cs Associate Relationship Specialty Start Date End Date Shahriar Stephenson MD [address] [place] [address] PCP - General Family Medicine 11/15/22 David Kumari MD [address] [place] [address] Physician Radiation Oncology 12/12/22 Elio Payne, INSTALLER HELPER.TOY ASSEMBLER [address] [place] [address] Nurse Practitioner Hematology/Oncology 12/12/22 Nicolas Hwang MD [address] [place] [address] Physician Hematology/Oncology 12/12/22 Nancy Ray, SINDI [address] [place] [address] Specialty Rope Tier Hematology/Oncology 12/12/22 Cs Associate Relationship Specialty Start Date End Date Shahriar Stephenson MD [address] [place] [address] PCP - General Family Medicine 11/15/22 David Kumari MD [address] [place] [address] Physician Radiation Oncology 12/12/22 Elio Payne, INSTALLER HELPER.TOY ASSEMBLER [address] [place] [address] Nurse Practitioner Hematology/Oncology 12/12/22 Nicolas Hwang MD [address] [place] [address] Physician Hematology/Oncology 12/12/22 Nancy Ray, RN [address] [place] [address] [place] [address] Specialty Rope Tier Hematology/Oncology 12/12/22 Cs Associate Relationship Specialty Start Date End Date Shahriar Stephenson MD [address] [place] [address] PCP - General Family Medicine 11/15/22 Cs Associate Relationship Specialty Start Date End Date Shahriar Stephenson MD [facility] [place] [id number] PCP - General Family Medicine 11/15/22 David Kumari MD [address] [place] [address] [address] [place] [id number] Physician Radiation Oncology 12/12/22 Elio Payne APRN.TOY ASSEMBLER [address] [place] [address] [address] [place] [id number] Nurse Practitioner Hematology/Oncology 12/12/22 Nicolas Hwang MD [address] [place] [id number] Physician Hematology/Oncology 12/12/22 Nancy Ray, SINDI [address] [place] [address] Specialty Rope Tier Hematology/Oncology 12/12/22 Cs Associate Relationship Specialty Start Date End Date Shahriar Stephenson MD [address] [place] [address] PCP - General Family Medicine 11/15/22 David Kumari MD [address] [place] [address] Physician Radiation Oncology 12/12/22 Elio Payne APRN.TOY ASSEMBLER [address] [place] [address] Nurse Practitioner Hematology/Oncology 12/12/22 Nicolas Hwang MD [address] [place] [address] Physician Hematology/Oncology 12/12/22 Nancy Ray, SINDI [address] [place] [address] Specialty Rope Tier Hematology/Oncology 12/12/22 (unrecognized sect ion and content) No Status Records FoundNo Status Records FoundNo Status Records FoundNo Status Records FoundNo Status Records FoundNo Status Records FoundNo Status Records Found INFORMATION SOURCE (unrecogn ized section and content) DATE CREATED AUTHOR 10/17/2021 [facility] DATE CREATED AUTHOR AUTHOR'S ORGANIZ ATION 10/12/2022 [facility] DATE CREATED AUTHOR AUTHOR'S ORGANIZ ATION 01/06/2024 [facility] DATE CREATED AUTHOR AUTHOR'S ORGANIZ ATION 01/10/2024 [facility] DATE CREATED AUTHOR AUTHOR'S ORGANIZ ATION 01/21/2024 [facility] DATE CREATED AUTHOR AUTHOR'S ORGANIZ ATION 02/01/2024 [facility] DATE CREATED AUTHOR AUTHOR'S ORGANIZ ATION 02/08/2024 [facility] Goals (unrecognized section and content) Goals may be documented in a n alternate section FOR RECORDS PERTAINING TO PATIENTS WHO ARE OR HAVE BEEN ENROLLED IN A CHEMICAL DEPENDENCY/SUBSTANCEABUSE PROGRAM, SOME INFORMATION MAY BE OMITTED. This clinical summary was aggregated from multiple sources. Caution should be exercised in using it in the provision of clinical care. This summary normalizes information from multiple sources, and as a consequence, information in this document may materially change the coding, format and clinical context of patient data. In addition, data may be omitted in some cases. CLINICAL DECISIONS SHOULD BE BASED ON THE PRIMARY CLINICAL RECORDS. [employer] [facility]. provides no warranty or guarantee of the accuracy or completeness of information in this document.
[2024-02-08 09:26] LABS: Basophils Percent Auto 0.4 % (0.2-2.0); Eosinophils Absolute Auto 0.1 10^3/uL (0.0-0.7); Eosinophils Percent Auto 1.7 % (0.9-7.0); Hematocrit 39.3 % (42.0-54.0); Hemoglobin 13.4 g/dL (14.0-18.0); Immature Granulocytes Abs Auto 0.19 10^3/uL (0.00-0.03); Immature Granulocytes Pct Auto 2.4 % (0.0-0.5); Lymphocytes Percent Auto 12.6 % (20.5-60.0); Mean Corpuscular HGB Conc 34.1 g/dL (29.9-35.2); Mean Corpuscular Hemoglobin 30.9 pg (25.9-34.0); Mean Corpuscular Volume 90.8 fL (80.0-94.0); Mean Platelet Volume 9.9 fL (9.5-13.5); Monocytes Absolute Auto 0.6 10^3/uL (0.3-0.8); Neutrophils Absolute Auto 5.9 10^3/uL (1.4-6.5); Neutrophils Percent Auto 74.9 % (43.0-75.0); Platelet Count 170 10^3/uL (150-450); Red Blood Count 4.33 10^6/uL (4.70-6.10); Red Cell Distribution Width 13.7 % (11.0-15.0); White Blood Count 7.9 10^3/uL (4.0-11.0)
[2024-02-08 09:37] LABS: Anion Gap 14.9; BUN Creatinine Ratio 13.4; Calcium 10.1 mg/dL (8.5-10.1); Carbon Dioxide 25.4 mmol/L (21.0-32.0); Chloride 104 mmol/L (98-107); Estimated GFR (African America 45 (>=60 mL/min/1.73m^2); Estimated GFR (Non-African Ame 37 (>=60 mL/min/1.73m^2); Glucose 200 mg/dL (74-106); Potassium 3.3 mmol/L (3.5-5.1); Sodium 141 mmol/L (136-145)
[2024-02-08 09:48] LABS: INR 0.98; Partial Thromboplastin Time 25.2 sec (22.3-36.2); Prothrombin Time 10.4 sec (9.0-11.6)
== END 2024-02-08 08:38 | disposition home or self-care (01) ==
LOC: PST 08:38
PROVIDERS: PCP Family Medicine; Visit Provider Urology
DX: Z01.812 Encounter for preprocedural laboratory examination (principal); D49.4 Neoplasm of unspecified behavior of bladder; C61 Malignant neoplasm of prostate; R31.9 Hematuria, unspecified
CPT/HCPCS: 80048; 85025; 85610; 85730

== ENCOUNTER 2024-02-22 12:34 | Day surgery (SDC) | payer MEDICARE, SELFPAY ==
[2024-01-12 13:26] VITALS: BP 120/76; PULSE 75; TEMP 36.1; O2SAT 96; BMI 31.5
[2024-02-08 09:35] VITALS: BP 120/76; PULSE 64; TEMP 36.2; O2SAT 96; BMI 31.7
[2024-02-22] VITALS (11 sets, daily range): BP systolic 100–158; BP diastolic 59–79; PULSE 62–86; TEMP 36.2–36.8; O2SAT 90–96; BMI 31.7
[2024-02-22] MEDS: LACTATED RINGER'S SOLUTION 1,000 ML 50 ML IV (13:32)
[2024-02-22] MEDS: CIPROFLOXACIN 400 MG/200 ML D5W PREMIX 200 MG IV (14:28)
--- NOTE | 2024-02-22 15:35 | P.URON_ITS ---
Urology Surgery Operative Note Operative Note Procedure Date: 02/22/24 Time Out Performed: yes Pre-op Diagnosis: Gross hematuria/bladder lesions Post-op Diagnosis: same as pre-op Procedures performed: 1. Cystoscopy. 2. 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 He had subsequent external beam radiation therapy. He has been on total androgen blockade and his PSAs have remained 0. He has recently experienced gross hematuria. Cystoscopy revealed some red irregular raised lesions with evidence of prior bleeding on the left anterior aspect of the bladder. He now presents for TURBT. He has signed an informed consent after risks were explained. Detailed description of Procedure: The patient was brought to the operating room and placed on the operating room table in the supine position. SCDs were placed on the lower extremities and turned on and functioning during the entire case. Timeout was done by all parties in the room. We all agreed upon the patient's identification and the planned procedures for this patient. Genn. anesthesia was then administered. The patient was then repositioned into the modified dorsal lithotomy position. All pressure points were satisfactorily padded. Genitalia were sterilely prepped and draped in usual fashion. I started by passing a 26 Niuean Olympus resectoscope with a standard bipolar loop electrode per urethra and into the bladder. Very careful panendoscopy in the bladder revealed a few areas of typical radiation changes noted throughout the bladder. The areas of concern were on the back left anterior aspect of the bladder. Here, there were patches of flame red raised irregular areas that seem to have scabs on them from prior or recent bleeding. I have very carefully uniformly and deeply resected all of these areas. The Ilich was used to get the tissue out and these were sent for permanent sections. All of the resection beds were fully coagulated. Upon completion there was no evidence of any bleeding. There were no other flame red areas of concern. The scope was then removed. I then passed a 20 Niuean Herrera catheter in the bladder and put 10 cc of fluid in the balloon. It was manually irrigated and it was clear. The anesthetic was then reversed. He was then transferred to a [facility] bed and wheeled to PACU in stable condition.
[2024-02-22] MEDS: HYDROMORPHONE HCL 0.5 MG/0.5 ML SYRINGE IV ×2 (16:02→16:11)
[2024-02-22] MEDS: SOLIFENACIN SUCCINATE 10 MG TABLET PO (16:08)
--- NOTE | 2024-02-22 16:35 | PC.NURSE ---
Medicated with Dilaudid as ordered
--- NOTE | 2024-02-22 16:37 | PC.NURSE ---
Medicated for pain as ordered; states the pain is in the penis
--- NOTE | 2024-02-22 16:40 | PC.NURSE ---
States pain is tolerable
== END 2024-02-22 17:35 | disposition home or self-care (01) ==
PROVIDERS: PCP Family Medicine; Visit Provider Urology
PROC: (CPT 52234; principal; 2024-02-22 13:35)
DX: D30.3 Benign neoplasm of bladder (principal); R31.0 Gross hematuria; N32.9 Bladder disorder, unspecified; I10 Essential (primary) hypertension; Z85.46 Personal history of malignant neoplasm of prostate; Z90.79 Acquired absence of other genital organ(s); I25.10 Atherosclerotic heart disease of native coronary artery without angina pectoris
CPT/HCPCS: 52234; 36415; 88307; 88341; 88342; J0131; J0744; J1100; J1171; J2250; J2371; J2405; J2704; J3010

== ENCOUNTER 2024-10-10 13:20 | Observation (INO) | payer MEDICARE, SELFPAY ==
[2024-10-10] VITALS (52 sets, daily range): BP systolic 125–152; BP diastolic 66–77; PULSE 76–90; TEMP 37–38.1; O2SAT 90–98; BMI 30.4; BMI 29.8
--- OUTSIDE RECORDS SUMMARY | 2024-10-10 13:26 | XMS_ITS | Clinical Summary ---
Author Organization [facility] Address [address] [place], [place] [id number] Care Team Providers Care Cake Maker Name Role Phone Holden Cameron MD Primary Care Provider [phone] David Medley MD Unavailable [phone] Cathy Lawson DIALYSIS BIOMED TECHNICIAN.OBSTETRICS GYNECOLOGY MD Unavailable [phone] Nancy Ray RN Unavailable [phone] Allergies Active Allergy Reactions Criticality Noted Date Comments Penicillins Rash,Swelling 10/22/2019 Oxytetracycline Unknown 10/22/2019 Medications lisinopril-hyd rochlorothiazi de (PRINZIDE,ZEST ORETIC) 10-12.5 mg per tablet Take 1 tablet by mouth once daily. Active predniSONE (DELTASONE) 5 mg tablet Take 1 tablet by mouth once daily. 90 tablet 3 07/30/2024 10:58 AM EDT 4 Active abiraterone 250 mg tablet Take 4 tablets by mouth once daily. 360 tablet 5 08/28/2024 1:04 PM EDT 5 Active leuprolide (ELIGARD, 6 MONTH,) 45 mg injection Inject 45 mg subcutaneously one time only. Active Active Problems Problem Noted Date Diagnosed Date Secondary hyperparathyroidism 01/16/2023 Platelets decreased 01/16/2023 Immunizations Immunization Administration Dates Next Due COVID-19 vaccine, unspecified formulation 2020,03/08/2020 Family History Medical History Relation Comments Cancer Father Blood clots Mother Hypertension Mother Relation Status Comments Father Mother Social History Tobacco Use Types Packs/Day Years Used Date Smoking Tobacco: Never Passive Smoke Exposure: Past Smokeless Tobacco: Never Tobacco Cessation:Counseling Given: Not Answered Alcohol Use Standard Drinks/Week Comments Not Currently 0 (1 standard drink = 0.6 oz pur e alcohol) PHQ-2 Answer Date Recorded PHQ-2 score 0 05/15/2024 Area Deprivation Index Answer Date Venkata rded National Score (1-100), lower number is lower ri sk 74 11/15/2022 State Score (1-10), lower number is lower risk 6 11/15/2022 Data from: https://www.neighborhoodatlas.medicine.[place]/. Last address used for calculation [address] 11/15/2022 Sex and Gender Information Value Date Recorded Sex Assigned at Not on file Legal Sex Male 3:06 PM EDT Gender Identity Not on file Sexual Orientation Not on file Last Filed Vital Signs Vital Sign Reading Time Taken Comments Blood Pressure 120/72 05/20/2024 1:58 PM EDT Pulse 75 06/04/2024 2:53 PM EDT Temperature 36.2 C (97.2 F) 06/04/2024 2:53 PM EDT Respiratory Rate 16 06/04/2024 2:53 PM EDT Oxygen Saturation 94% 06/04/2024 2:53 PM EDT Inhaled Oxygen Concentration - - Weight 118.6 kg (261 lb 7.5 oz) 06/04/2024 2:53 PM EDT Height 193 cm (6' 3.98 ) 11/16/2023 2:59 PM EDT Body Mass Index 31.84 11/16/2023 2:59 PM EDT Plan of Treatment Upcoming Encounters Date Type Department Care Team (Latest Contact Info) Description 11/12/2024 9:00 AM EDT Office Visit [facility] [address] [place] [address] 6 month follow up with lab 11/13/2024 1:30 PM EDT Visit (SP) Office Hematology/Oncology [address] [place] [address] Minoo Bella, CRISTEL.OBSTETRICS GYNECOLOGY MD [address] [place] [address] 6 month follow up with lab 11/13/2024 2:00 PM EDT Office Visit Radiation [place] [address] [place] [address] David Medley MD [address] [address] 6 month follow up with lab Health Maintenance Due Date Last Done Comments Anxiety Screening 1963 Depression Screening 1963 Hepatitis C Screening 1963 DTaP,Tdap,Td Vaccine (1 - Tdap) 1965 Pneumococcal Vaccine: 50+ (1 of 2 - PCV) 1965 Shingrix Vaccine (1 of 2) 1965 RSV Vaccine (1 - 1-dose 75+ series) 2021 Advance Directive Discussion 02/07/2024 Medicare Advantage Annual Wellness Visit 02/07/2024 Influenza Vaccine (#1) 2024 Diabetes Screening 05/16/2027 05/15/2024, 1 , 05/18/2023, Additional history exists Colonoscopy Discontinued 02/07/2012 Colorectal Cancer Screening Discontinued CT Colonography Discontinued Cologuard (FIT-DNA) Discontinued Fecal Occult Blood Discontinued Sigmoidoscopy Discontinued Procedures Procedure Name Priority Date/Time Associated Diagnosis Comments BASIC METABOLIC PANEL Routine 05/15/2024 12:42 PM EDT Monoclonal gammopathy from Last 3 Months or Most Recently Relevant to Health Maintenance Results * (ABNORMAL) BASIC METABOLIC PANEL (05/15/2024 12:42 PM EDT) Glucose 224(H) 74 - 99 mg/dL 05/15/2024 1:46 PM EDT [facility] Comment: The [place] Diabetes Association (ADA) provides guidance for cutoff [...] Standards of Medical Care in Diabetes 2016, [place] Diabetes Association. Diabetes Care. 2016.39(Suppl 1). BUN 20 9 - 24 mg/dL 05/15/2024 1:46 PM EDT [facility] Creatinine 1.40(H) 0.73 - 1.22 mg/dL 05/15/2024 1:46 PM EDT [facility] Sodium 141 136 - 144 mmol/L 05/15/2024 1:46 PM EDT [facility] Potassium 4.0 3.7 - 5.1 mmol/L 05/15/2024 1:46 PM EDT [facility] Chloride 103 98 - 107 mmol/L 05/15/2024 1:46 PM EDT [facility] CO2 24 22 - 30 mmol/L 05/15/2024 1:46 PM EDT [facility] Anion Gap 14 8 - 15 mmol/L 05/15/2024 1:46 PM EDT [facility] Calcium, Total 10.2 8.5 - 10.2 mg/dL 05/15/2024 1:46 PM EDT [facility] Estimated Glomerular Filtration Rate 52(L) >=60 mL/min/1. 73m 05/15/2024 1:46 PM EDT [facility] Comment:Estimated Glomerular Filtration Rate (eGFR) is calculated using the 2020 CKD-EPI creatinine equation. This equation utilizes serum creatinine, sex, and age as parameters. The creatinine assay has traceable calibration to isotope dilution- mass spectrometry. Refer to KDIGO guidelines for clinical interpretation. In patients with unstable renal function, e.g. those with acute kidney injury, the eGFR may not accurately reflect actual GFR. Blood BLOOD SPECIMEN / Unknown Venipuncture / Unknown 05/15/2024 12:42 PM EDT 05/15/2024 12:42 PM EDT us Nicolas Hwang MD LABORATORY Final Re sult [facility] [address] [place] [address] from Last 3 Months or Most Recently Relevant to Health Maintenance Insurance AET[employer] MEDICARE Care Teams Cake Maker Relationship Specialty Start Date End Date Holden Cameron MD [address] [place] [address] PCP - General Family Medicine 11/15/22 David Medley MD [address] [place] [address] [place] [address] Physician Radiation Oncology 12/12/22 Cathy Lawson APRN.CNP [address] [place] [address] Nurse Practitioner Hematology/Oncology 12/12/22 Nancy Ray, SINDI [address] [place] [address] Specialty Crm System Administrator Hematology/Oncology 12/12/22
--- OUTSIDE RECORDS SUMMARY | 2024-10-10 13:26 | XMS_ITS | Encounter Summary ---
Author Organization [facility] Address [address] [place] [address] Care Team Providers Care Tieing Machine Operator Name Role Phone Holden Cameron MD Primary Care Provider [phone] David Medley MD Unavailable [phone] Cathy Lawson APRN.DIESEL POWERPLANT MECHANIC HELPER Unavailable [phone] Nicolas Hwang MD Unavailable Unavail able Nancy Ray RN Unavailable [phone] Source Comments In the event this information is protected by the Federal Confidentiality of Alcohol and Drug AbusePatient Records regulations: The Federal rules restrict any use of the information to criminally investigate or prosecute any alcohol or drug abuse patient.[facility] Encounter Details Date Type Department Care Team (Late st Contact Info) Description 11/24/2022 Patient Msg MRI Q [address] [address] Provider, Ccf MRI PROSTATE PREP INSTRUCTIONS Social History Tobacco Use Types Packs/Day Years Used Date Smoking Tobacco: Never Passive Smoke Exposure: Past Smokeless Tobacco: Never Alcohol Use Standard Drinks/Week Comments Not Currently 0 (1 standard drink = 0.6 oz pur e alcohol) PHQ-2 Answer Date Recorded PHQ-2 score 0 06/02/2022 Area Deprivation Index Answer Date Venkata rded National Score (1-100), lower number is lower ri sk 74 11/15/2022 State Score (1-10), lower number is lower risk 6 11/15/2022 Data from: https://www.neighborhoodatlas.medicine.[facility].edu/. Last address used for calculation [address] 11/15/2022 Sex and Gender Information Value Date Recorded Sex Assigned at Not on file Legal Sex Male 3:06 PM EDT Gender Identity Not on file Sexual Orientation Not on file documented as of this encounter Plan of Treatment Upcoming Encounters Date Type Department Care Team (Latest Contact Info) Description 11/12/2024 9:00 AM EDT Office Visit [facility] [address] [facility] [place] [address] 6 month follow up with lab 11/13/2024 1:30 PM EDT Visit (SP) Office Hematology/Oncology [address] [place] [address] [place] [address] Minoo Bella, CHANNEL OPENER OUTSOLES.DIESEL POWERPLANT MECHANIC HELPER [address] [facility] [place] [address] 6 month follow up with lab 11/13/2024 2:00 PM EDT Office Visit Radiation Oncology [facility] [place] [address] David Medley MD [address] [place] [address] [place] [address] 6 month follow up with lab documented as of this encounter Visit Diagnoses Not on filedocumented in this encounter Care Teams Tieing Machine Operator Relationship Specialty Start Date End Date Holden Cameron MD [address] [place] [address] PCP - General Family Medicine 11/15/22 David Medley MD [address] [place] [address] [place] [address] Physician Radiation Oncology 12/12/22 Cathy Lawson, CRISTEL.DIESEL POWERPLANT MECHANIC HELPER [facility] [place] [address] Nurse Practitioner Hematology/Oncology 12/12/22 Nicolas Hwang MD [address] [facility] [place] [address] Physician Hematology/Oncology 12/12/22 08/11/24 Nancy Ray, SINDI [address] [facility] [place] [address] Specialty Veterinary Technologist Hematology/Oncology 12/12/22 documented as of this encounter
--- OUTSIDE RECORDS SUMMARY | 2024-10-10 13:26 | XMS_ITS | Encounter Summary ---
Author Organization [facility] Address [address] [place] [address] Care Team Providers Care Electrician Sound Name Role Phone Holden Cameron MD Primary Care Provider [phone] David Medley MD Unavailable [phone] Cathy Lawson APRN.MEDICINE AIDE Unavailable [phone] Nicolas Hwang MD Unavailable Unavail able Nancy Ray RN Unavailable [phone] Source Comments In the event this information is protected by the Federal Confidentiality of Alcohol and Drug AbusePatient Records regulations: The Federal rules restrict any use of the information to criminally investigate or prosecute any alcohol or drug abuse patient.[facility] Encounter Details Date Type Department Care Team (Late st Contact Info) Description 11/26/2022 [place] [address] Provider, Ccf Questionnaire Submission Social History Tobacco Use Types Packs/Day Years Used Date Smoking Tobacco: Never Passive Smoke Exposure: Past Smokeless Tobacco: Never Alcohol Use Standard Drinks/Week Comments Not Currently 0 (1 standard drink = 0.6 oz pur e alcohol) PHQ-2 Answer Date Recorded PHQ-2 score 0 11/30/2022 Area Deprivation Index Answer Date Venkata rded National Score (1-100), lower number is lower ri sk 74 11/15/2022 State Score (1-10), lower number is lower risk 6 11/15/2022 Data from: https://www.neighborhoodatlas.[facility].edu/. Last address used for calculation [address] 11/15/2022 Sex and Gender Information Value Date Recorded Sex Assigned at Not on file Legal Sex Male 3:06 PM EDT Gender Identity Not on file Sexual Orientation Not on file documented as of this encounter Plan of Treatment Upcoming Encounters Date Type Department Care Team (Latest Contact Info) Description 11/12/2024 9:00 AM EDT Office Visit [facility] [address] [place] [address] 6 month follow up with lab 11/13/2024 1:30 PM EDT Visit (SP) Office Hematology/Oncology [address] [place] [address] [place] [address] Minoo Bella, CRISTEL.MEDICINE AIDE [address] [facility] [place] [address] 6 month follow up with lab 11/13/2024 2:00 PM EDT Office Visit Radiation Oncology [address] [place] [address] [place] [address] David Medley MD [address] [place] [address] [place] [address] 6 month follow up with lab documented as of this encounter Visit Diagnoses Not on filedocumented in this encounter Care Teams Electrician Sound Relationship Specialty Start Date End Date Holden Cameron MD [address] [place] [address] PCP - General Family Medicine 11/15/22 David Medley MD [address] [place] [address] [place] [address] Physician Radiation Oncology 12/12/22 Cathy Lawson, CRISTEL.MEDICINE AIDE [address] [place] [address] [place] [address] Nurse Practitioner Hematology/Oncology 12/12/22 Nicolas Hwang MD [address] [facility] [place] [address] Physician Hematology/Oncology 12/12/22 08/11/24 Nancy Ray, SINDI [address] [facility] [place] [address] Specialty Enterprise Application Administrator Hematology/Oncology 12/12/22 documented as of this encounter
--- OUTSIDE RECORDS SUMMARY | 2024-10-10 13:26 | XMS_ITS | Clinical Summary ---
Author Organization [facility] Address [address] [place] [address] Care Team Providers Care Dental Equipment Repairer Name Role Phone Celestina Chanel MD Primary Care Provider [phone] Allergies Active Allergy Reactions Criticality Noted Date Comments Penicillins 11/05/2014 Medications No known medications Family History Medical History Relation Comments Cancer Father Cancer Maternal Aunt Cancer Maternal Uncle Cancer Paternal Aunt Relation Status Comments Father Maternal Aunt Maternal Uncle Paternal Aunt Social History Tobacco Use Types Packs/Day Years Used Date Smoking Tobacco: Never Sex and Gender Information Value Date Recorded Sex Assigned at Not on file Legal Sex Male 3:06 PM EDT Gender Identity Not on file Sexual Orientation Not on file Plan of Treatment Health Maintenance Due Date Last Done Comments Tetanus: Every 10yrs 1945 Wellness Visit 1949 Depression Screening/Follow-Up (PHQ-2/9) 1958 Hepatitis C Screening 1964 Pneumococcal Vaccine: Age 50+ (1 of 1 - PCV) 7 Zoster Vaccines (1 of 2) 1996 Falls Risk Assessment 09/03/2011 Respiratory Syncytial Virus Immunization: Risk, 60-74 Risk, or 75+ (1 - 1-dose 75+ series) 2021 COVID-19 Vaccine ( - season) 2024 Influenza Vaccine (#1) 2024 Insurance AETNA MEDICARE PLAN (PPO) Care Teams Dental Equipment Repairer Relationship Specialty Start Date End Date Celestian Chanel MD [address] [place] [address] PCP - General Family Medicine 11/05/14
--- OUTSIDE RECORDS SUMMARY | 2024-10-10 13:26 | XMS_ITS | Clinical Summary ---
Author Organization [facility] Address [address] [place] [address] Care Team Providers Care Surgery Specialist Name Role Phone Unavailable Primary Care Provider Unavailabl e Social History Tobacco Use Types Packs/Day Years Used Date Smoking Tobacco: Never Assessed Sex and Gender Information Value Date Recorded Sex Assigned at Not on file Legal Sex Male 11:20 PM EDT Gender Identity Not on file Sexual Orientation Not on file Plan of Treatment Not on file
--- OUTSIDE RECORDS SUMMARY | 2024-10-10 13:36 | XMS_ITS | CCD ---
Author Organization [facility] Care Team Providers Care Delivery Representative Name Role Phone Unavailable Primary Care Provider UnavailAzucena Johnson Unavailable Unavailable Primary Care Provider UnavailGURMEET Negron Primary Care Physician MARAH, DR GURMEET Haque Admitting Unavailable CHANEL, DR GURMEET Haque Attending Unavailable CHANEL, DR GURMEET Haque Primary Care Unavailable CHANEL, DR GURMEET Haque Consulting Unavailable ZIEBER, DR MIA Bunch Consulting Unavailable CHANEL, DR GURMEET Haque Admitting Unavailable CHANEL, DR GURMEET Haque Attending Unavailable CHANEL, DR GURMEET Haque Primary Care Unavailable CHANEL, DR GURMEET Haque Consulting Unavailable MELVERN, DR CHAIM Canales Consulting Unavailable CHANEL, DR GURMEET Haque Admitting Unavailable CHANEL, DR GURMEET Haque Attending Unavailable CHANEL, DR GURMEET Haque Primary Care Unavailable CHANEL, DR GURMEET Haque Consulting Unavailable ZIEBER, DR MIA Bunch Consulting Unavailable CORNELIO, DR NAVAS Admitting Unavailable GRIMES, DR NAVAS Attending Unavailable CHANEL, DR GURMEET Haque Primary Care Unavailable MAXIMILIANMARISSA Consulting Unavailable GABRIELAKAREN Admitting Unavailable GABRIELAKAREN Attending Unavailable CHANEL, DR GURMEET Haque Primary Care Unavailable GABRIELAKAREN Consulting Unavailable Unavailable Primary Care Provider Unavailrazia haque Unavailable Primary Care Provider UnavailShahriar Gordon. Primary Care Physician [phone] Angelina Holder Unavailable CARISSA Holder Attending Provider Shahriar Stephenson MD Primary Care Provider David Kumari MD Unavailable Renny AUTOMOTIVE QUALITY MANAGER.TEMP RECRUITER, Elio Unavailable Nicolas Hwang MD Unavailable Cory DELONG, Nancy Unavailable Shahriar Stephenson MD Primary Care Provider [phone] Unavailable Primary Care Provider UnavailShilpa Mcguire Primary Care Physician [phone] Yosef Grimes MD Attending Provider Parvez, DRIVER EDUCATION INSTRUCTOR Shilpa L Attending Unavailable Parvez, DRIVER EDUCATION INSTRUCTOR Shilpa L Attending Unavailable Parvez, DRIVER EDUCATION INSTRUCTOR Shilpa L Attending Unavailable GRIMES, Yosef R Attending Unavailable GRIMES, Yosef R Attending Unavailable GRIMES, Yosef R Attending Unavailable GRIMES, Yosef R Attending Unavailable GRIMES, Yosef R Attending Unavailable GRIMES, Yosef R Admitting Unavailable GRIMES, Yosef R Attending Unavailable GRIMES, Yosef R Attending Unavailable GRIMES, Yosef R Attending Unavailable GRIMES, Yosef R Attending Unavailable GRIMES, Yosef R Admitting Unavailable GRIMES, Yosef R Attending Unavailable Grimes, Yosef Attending Unavailable Grimes, Yosef Admitting Unavailable David KUMARI Attending Unavailable ROSS, SHAHRIAR E Primary Care Unavailable GRIMES, YOSEF Bunch Referring Unavailable ROSS, SHAHRIAR E Primary Care Unavailable SACHIN, SHAHRIAR E Primary Care Unavailable SHILPA FOX Referring Unavailable ROSS, SHAHRIAR E Primary Care Unavailable ROSS, SHAHRIAR E Primary Care Unavailable ROSS, SHAHRIAR E Primary Care Unavailable MINOO GILL Attending Unavailable ROSS, SHAHRIAR E Primary Care Unavailable David KUMARI Attending Unavailable NICOLAS HWANG Referring Unavailable ROSS, SHAHRIAR E Primary Care Unavailable ROSS, SHAHRIAR E Primary Care Unavailable ROSS, SHAHRIAR E Primary Care Unavailable NICOLAS HWANG Attending Unavailable NICOLAS HWANG Referring Unavailable ROSS, SHAHRIAR E Primary Care Unavailable Bob, Meño Admitting Unavailable Bob, Meño Consulting Unavailable Bob, Meño Attending Unavailable Bob, Meño Referring Unavailable Bob, Meño Consulting Unavailable Bob, Meño Consulting Unavailable Shilpa Fox Attending Unavailable Parvez, Shilpa Mart Attending Unavailable GRIMES, Yosef R Attending Unavailable GRIMES, Yosef R Attending Unavailable GRIMES, Yosef R Attending Unavailable GRIMES, Yosef R Attending Unavailable GRIMES, Yosef R Attending Unavailable Bbo, Meño Attending Unavailable GRIMES, Yosef R Referring Unavailable Allergies Allergy Classification Reported Allergen(s) Allergy Type Date of Onset Reaction(s) Facility (20 sources) Oxytetracycline; Translations: [oxytetracycline] Drug Allergy 10-22-19 Unknown, Fever (finding), Swelling at injection site (disorder) [facility] (4 sources) Penicillins; Translations: [PENICILLINS] Drug Allergy 10-22-19 Rash, Swelling [facility] (4 sources) Penicillin V Drug Allergy 10-10-19 swelling, rash, and hair loss [facility] (3 sources) TERAMYCIN Propensity to adverse reactions Unknown [facility] Other (20 sources) Penicillins Drug Allergy 10-22-19 Rash, Swelling [facility] (20 sources) Penicillin; Translations: [penicillin] Drug Allergy Swelling at injection site (disorder) [facility] (1 source) Oxytetracycline Drug Allergy 12-23-19 [facility] (1 source) Penicillins Drug allergy (disorder) 12-23-19 [facility] (1 source) Oxytetracycline Drug Allergy 10-10-19 [facility] (1 source) Penicillin Drug Allergy 10-10-19 [facility] (4 sources) Penicillins Drug Allergy 10-22-19 Rash, Swelling [facility] Medications Current Medications Medication Drug Class(es) Dates Sig (Normalized) Sig (Original) abiraterone acetate 250 mg oral tablet (20 sources) Cytochrome P450 17A1 Inhibitor Start: 12-08-2022 End: 05-20-2024 take 4 tablets by mouth once daily abiraterone 250 mg tablet Take 4 tablets by mouth once daily. 360 tablet 5 05/21/2024 11:32 AM EDT 05/20/2024 Active Comment on above: Take [address] [facility] once daily. azithromycin 250 mg oral tablet (1 source) Macrolide Antimicrobial Start: 11-13-2020 Azithromycin 250 MG 2 tablet on the first day, then 1 tablet daily for 4 days Orally Once a day for 5 day(s) Nov, Active calcium citrate 950 mg oral tablet (2 sources) Start: 12-02-2022 take 1 mg by mouth twice daily calcium (as calcium citrate) 200 mg oral tablet mg tab(s), Oral, BID, Refills(s) 0 Start Date: 12/02/22 Status: Afshin Curiel (11 sources) Start: 10-23-2023 Veena Curiel, injection every 6 months, As Directed Start Date: 10/23/23 Status: Ordered hydroCHLOROthiazide 12.5 mg / lisinopril 10 mg oral tablet (20 sources) Thiazide Diuretic, Angiotensin Converting Enzyme Inhibitor Start: 09-27-2023 End: 09-21-2024 take 1 tablet by mouth once daily hydrochlorothiaz reza-lisinopril 12.5 mg-10 mg Tab 1 tab(s), Oral, Daily for 90 day(s), 90 tab(s), Refill(s) 3, [facility], 185, cm, 09/27/23 11:20:00 EDT, [...] Take 1 tablet by mone once daily. 0.375 ml leuprolide acetate 120 mg/ml prefilled syringe (1 source) Gonadotropin Releasing Hormone Receptor Agonist inject 45 mg by subcutaneous injection once leuprolide (ELIGARD, 6 MONTH,) 45 mg injection Inject 45 mg subcutaneously one time only. Active Misc Medication (11 sources) Start: Misc Medication Vitamin D3 with Calcium Start Date: 10/23/23 Status: Ordered predniSONE 5 mg oral tablet (20 sources) Start: predniSONE 5 mg Tab Refills(s) 0 Start Date: 05/22/23 Status: Ordered Start: 12-08-2022 End: 11-16-2023 take 1 tablet by mouth once daily predniSONE (DELTASONE) 5 mg tablet Take 1 tablet by mouth once daily. 90 tablet 3 05/03/2024 11:14 AM EDT 11/16/2023 Active Comment on above: Take 1 [...] day(s), # 90 tab(s), Refills(s) 3, Pharmacy: [facility], 190, cm, 11/18/22 11:20:00 EDT, Height/Length Dosing, 112, kg, 11/18/22 11:20:00 EDT, Weight Dosing Start Date: 11/18/22 Stop Date: 11/13/23 Status: Ordered Comment on above: Take 1 tablet by mone th every afternoon. Calcium Carbonate / vitamin D3 (20 sources) End: 06-04-2024 take 1 tablet by mouth once daily calcium carbonate/vitamin D3 (CALCIUM WITH VITAMIN D3 ORAL) Take 1 tablet by mouth once daily. 06/04/2024 Discontinued (Discontinued by Patient) take 1 tablet by mouth once neal [...] Take 1 tablet by mone once daily. ciprofloxacin 500 mg oral tablet (6 sources) Quinolone Antimicrobial Start: take 1 tablet by mouth once daily Cipro 500 mg Tab 500 mg = 1 tab(s), Oral, Daily, take one tab day before procedure and one tab after procedure, # 2 tab(s), Refills(s) 0, Pharmacy: [facility], 190, cm, 01/08/24 9:10:00 EST, Height/Length Dosing, 119.9, kg, 01/08/24 9:10:00 EST, Weight Dosing Start Date: 01/08/24 Status: Ordered Start: 10-09-2022 take 1 tablet by mone every twelve hours Cipro 500 MG 1 tablet Orally every 12 hrs for 5 day(s) Oct, Active Start: 10-03-2022 take 1 tablet by mone once daily Cipro 500 mg Tab 500 mg = 1 tab(s), Oral, Daily, take one tab day before procedure and one tab after procedure, # 2 tab(s), Refills(s) 0, Pharmacy: [facility], 190, cm, 10/03/22 13:54:00 EDT, [...] 1 tablet by mone th once daily. Problems Active Problems Problem Classification Problem Date Documented Date Episodic/Chronic Calculus of urinary tract (2 sources) History of calculus of kidney; Translations: [Personal history of urinary calculi] Onset: 5 Episodic Cancer of prostate (20 sources) Malignant tumor [...] and systems] 12-19-2022 Episodic Chronic kidney disease (6 sources) Chronic kidney disease stage 3; Translations: [Chronic kidney disease, stage 3 (moderate)] Chronic Chronic kidney disease (2 sources) Chronic kidney disease; Translations: [Chronic kidney disease, stage III (moderate)] Coagulation and hemorrhagic disorders (18 sources) Platelet count below reference range; Translations: [Thrombocytopenia, unspecified] Onset: 3 01-16-2023 Chronic Essential hypertension (13 sources) Essential hypertension; Translations: [Essential (primary) hypertension] [...] Chronic Inflammatory conditions of male genital organs (17 sources) Epididymitis 05-27-2019 Episodic Neoplasms of unspecified nature or uncertain behavior (14 sources) Monoclonal gammopathy (clinical); Translations: [Monoclonal gammopathy] Onset: 2 Chronic Neoplasms of unspecified nature or uncertain behavior (20 sources) Neoplasm of bladder; Translations: [Neoplasm of unspecified behavior of bladder] Onset: 3 11-01-2022 Episodic Other diseases of bladder and urethra (1 source) Disorder of bladder; Translations: [Bladder disorder, unspecified] Onset: 5 Chronic Other diseases of bladder and urethra (1 source) Lesion of bladder 03-04-2024 Chronic Other diseases of kidney and ureters (20 sources) Secondary hyperparathyroidism; Translations: [Secondary hyperparathyroidism of renal origin] Onset: 3 01-16-2023 Chronic Other diseases of kidney and ureters (1 source) Secondary hyperparathyroidism of renal origin; Translations: [SEC HYPERPARATHYROIDISM RENAL ORIGN] Onset: 2 Chronic Other gastrointestinal disorders (4 sources) Intra-abdominal and pelvic swelling, mass and lump, unspecified site; Translations: [INTRA-ABD PELV SWELL MASS LUMP] Onset: 2 Episodic Other non-traumatic joint disorders (11 sources) Knee pain 09-27-2023 Episodic Other nutritional; endocrine; and metabolic disorders (1 source) Obese class I; Translations: [Body mass index (BMI) 33.0-33.9, adult] Onset: 2 Chronic Other nutritional; endocrine; and metabolic disorders (17 sources) Body mass index 30+ - obesity 09-27-2021 Chronic Other nutritional; endocrine; and metabolic disorders (11 sources) Obesity caused by energy imbalance 09-27-2023 [...] DISEASE STG 3 UNSP] Onset: 2 Unclassified (20 sources) Patient encounter status 08-23-2022 Unclassified (1 source) Class 1 obesity due [...] Name Value Interpretation Reference Range Facil ity Ambulatory Visit Summaryon 0 09-26-2024 Ambulatory Visit Summary Ambulatory Visit Summary ADLOPH JOHNS DOB:1945 Visit Date:09/26/2024 Ambulatory Visit Instructions Your Diagnosis Hypertension Bladder neoplasm of uncertain malignant potential Mild pulmonary hypertension Chronic kidney disease, stage 3b Hypertensive chronic kidney disease Non-smoker BMI 32.0-32.9,adult Your Care Team Attending Physician - Shilpa Naylor Primary Care Physician - Shahriar Stephenson MD This Is Your Medications List [facility] Prescription (Eliard) abiraterone (abiraterone 250 mg oral tablet) hydrochlorothiazide-l isinopril (hydrochlorothiazide- lisinopril 12.5 mg-10 mg Tab) predniSONE (predniSONE 5 mg Tab) Procedures Performed Cystoscopy (05/20/2024), Cystoscopy (01/10/2024), TURBT - Transurethral resection of bladder tumor (11/10/2022), Cystoscopy (11/01/2022), Radical retropubic prostatectomy with bilateral pelvic lymphadenectomy (01/07/2016), Transrectal biopsy of prostate using ultrasound (US) guidance (11/03/2015), Colonoscopy (2015), Colonoscopy (02/07/2012). Discharge Vitals Temperature (Temporal Artery) 36.4 ???C Heart Rate (Peripheral) 93 Respiratory Rate 18 Blood Pressure 116/68 Height 190.0 cm Height 75 in Weight 115.7 kg Weight 255.075 lb BMI 32.05 What to do next Scheduled Follow-Up Appointments Monday 9:15 AM EDT With: CORNELIO ROSARIO, Yosef Bunch Where: [facility] [address] [address]25 1:20 PM EDT With: Shilpa Naylor Where: [facility] [address] [address]- Medications What How Much When Instructions Changed hydrochlorothiazide-l isinopril (hydrochlorothiazide- lisinopril 12.5 mg-10 mg Tab) 1 Tablets By Mouth Every day TAKE 1 TABLET BY MOUTH ONCE DAILY Pickup at [facility] Unchanged abiraterone (abiraterone 250 mg oral tablet) 4 Tablets By Mouth Every day Unchanged Misc Prescription (Eliguard) 0 As Directed injection every 6 months Unchanged predniSONE (predniSONE 5 mg Tab) Pharmacy Information [facility]: [address] [place], [place] [id number] [phone] Allergies oxytetracycline (Fever, Swelling at injection site) penicillin (Swelling at injection site) Problems Ongoing - Any problem that you are currently receiving treatment for. Bladder neoplasm of uncertain malignant potential Bladder tumor Chronic kidney disease, stage 3b Class 1 obesity due to excess calories with body mass index (BMI) of 33.0 to 33.9 in adult History of kidney stones History of prostate cancer Hypertension Hypertensive chronic kidney disease Microscopic hematuria Mild pulmonary hypertension Nocturia Pre-op testing Proteinuria Historical - Any problem that you are no longer receiving treatment for. Abnormal finding on EKG Epididymitis Gross hematuria Kidney stone Lesion of bladder Prostate cancer Right knee pain Patient Survey You may receive a survey via text or e-mail asking about your office visit. Please share your experience with us by completing your survey. We appreciate your feedback and thank you for choosing us for your care. Patient Portal You may access all of your results and other medical record information on our secure patient portal. If you are not signed up for this yet, please contact [employer] at [phone] to get signed up today. Language Information Language assistance services are available as needed. [facility] Family Medicine Office/Clini c Noteon 09-26-2024 Family Medicine Office/Clinic Note Family Medicine Office/Clinic Note HPI Staff Adolph is a 79 year old female presenting with Health Maintenance: Colonoscopy: 2015-Normal Dexa: 2021- Normal PSA 05/27/24 (0.2) Last Labs: he get these done @ [facility] in November refills for lisinopril he has bladder cancer, Dr. Grimes and Prostate cancer [facility] History of Present Illness pt presents today for annual check up. Review of Systems PHQ Score Initial Depression Screen Score: 0 SCORE Physical Exam Vitals & Measurements T: 36.4 ???C(Temporal Artery) HR: 93(Peripheral) RR: 18 BP: 116/68 SpO2: 95% HT: 190.0 cm HT: 75 in WT: 255.075 lb WT: 115.7 kg BMI: 32.05 General: alert, no acute distress ENMT: oral mucosa moist, no pharyngeal erythema or exudate Cardiovascular: regular rate and rhythm, normal peripheral perfusion Respiratory: Lungs CTA, respirations non labored Extremities: no deformity, no trauma Neurological: oriented x 4, LOC appropriate for age, CN II-XII intact, motor strength equal & normal bilaterally, speech normal Assessment/Plan 1. Hypertension (I10: Essential (primary) hypertension) BP at goal needs refills on meds. will have annual labs drawn in November at . 2. 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 Grimes and [facility]. Has had radiation and is taking abiraterone. has appointment with both in November for follow up testing. pt is hoping bladder and prostate 3. 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 his PSA stared rising and they found that the prostate cancer had metastasized to a lymph node adjacent to where prostate was removed. takes oral medication for it. and had radiation. has follow up testing to check to see if it is in remission. he is hopeful that this testing will be clear. 4. Mild pulmonary hypertension (I27.20: Pulmonary hypertension, unspecified) stable denies complaints. Ordered: Body Mass Index (BMI) documented 3008F Body Mass Index (BMI) documented 3008F Current tobacco non-user 1036F Depression Screening Negative 3352F Influenza immunization status assessed 1030F Most recent diastolic blood pressure <80 mm Hg 3078F Patient screen for fall risk: no falls in last year or 1 fall with no injury in last year 1101F Systolic BP <130 mm Hg (Most Recent) 3074F 5. Chronic kidney disease, stage 3b (N18.32: Chronic kidney disease, stage 3b) Pt will have follow up labs done in November. Ordered: Body Mass Index (BMI) documented 3008F Body Mass Index (BMI) documented 3008F Current tobacco non-user 1036F Depression Screening Negative 3352F Influenza immunization status assessed 1030F Most recent diastolic blood pressure <80 mm Hg 3078F Patient screen for fall risk: no falls in last year or 1 fall with no injury in last year 1101F Systolic BP <130 mm Hg (Most Recent) 3074F 6. Non-smoker (Z78.9: Other specified health status) continue not smoking Ordered: Body Mass Index (BMI) documented 3008F Body Mass Index (BMI) documented 3008F Current tobacco non-user 1036F Depression Screening Negative 3352F Influenza immunization status assessed 1030F Most recent diastolic blood pressure <80 mm Hg 3078F Patient screen for fall risk: no falls in last year or 1 fall with no injury in last year 1101F Systolic BP <130 mm Hg (Most Recent) 3074F 7. BMI 32.0-32.9,adult (Z68.32: Body mass index [BMI] 32.0-32.9, adult) BMI education given Ordered: Body Mass Index (BMI) documented 3008F Body Mass Index (BMI) documented 3008F Current tobacco non-user 1036F Depression Screening Negative 3352F Influenza immunization status assessed 1030F Most recent diastolic blood pressure <80 mm Hg 3078F Patient screen for fall risk: no falls in last year or 1 fall with no injury in last year 1101F Systolic BP <130 mm Hg (Most Recent) 3074F Orders: hydrochlorothiazide-l isinopril, 1 tab(s), Oral, Daily, 90 tab(s), Refill(s) 3, TAKE 1 TABLET BY MOUTH ONCE DAILY, [facility], 190, cm, 09/26/24 14:26:00 EDT, Height/Length Dosing, 115.7, kg, 09/26/24 14:26:00 EDT, Weight Dosing Follow-up No qualifying data available Problem List/Past Medical History Ongoing Bladder neoplasm of uncertain malignant potential Bladder tumor Chronic kidney disease, stage 3b Class 1 obesity due to excess calories with body mass index (BMI) of 33.0 to 33.9 in adult History of kidney stones History of prostate cancer Hypertension Hypertensive chronic kidney disease Microscopic hematuria Mild pulmonary hypertension Nocturia Pre-op testing Prostate cancer metastatic to intrapelvic lymph node Proteinuria Historical Abnormal finding on EKG Epididymitis Gross hematuria Kidney stone Lesion of bladder Prostate cancer Right knee pain Procedure/Surgical History Cystoscopy ( (more content not included)... [facility] Comment on above: Result Comment: Electronically Signed By : Shilpa Naylor\.arun\Date and Time Signed: 09/26/24 14:59 EDT Pre-Visit Planningon 025 Pre-Visit Planning Pre-Visit Planning From: Jazmin Cano RN To: Shilpa Naylor; Sent: 09/25/2024 13:22:32 EDT Subject: Pre-Visit Planning Due Date/Time: 09/25/2024 13:22:00 EDT Caller Name: ADOLPH JOHNS; Caller Number: H Erickson Rai, *Based on your response below, can you please update the chronic problem list and address during this visit if appropriate?* During a pre-visit planning chart review, I noted the following documentation in the medical record: Problem list- Bladder neoplasm of uncertain malignant potential, Bladder tumor, Epididymitis, Gross hematuria, Histor of kidney stones, History of prostate cancer, Kidney stone, Lesion of bladder, Microscopic hematuria, Nocturia, Prostate cancer, Proteinuria, Rising PSA following treatment for malignant neoplasm of prostate, Urinary frequency, Urinary urgency 08/23/2022 office note-History of seeing any specialist: Urologist Dr Heck , Dr Cook Clerk Carrier, Dr Mack oncologist, pt states he has mgus states pre curser to bone cancer 09/27/2023 office note-2. History of prostate cancer (Z85.46: Personal history of malignant neoplasm of prostate) followed by [facility]. last PSA was undetectable 3. Bladder tumor (D49.4: Neoplasm of unspecified behavior of bladder) followed by [facility] 10/23/2023 office note-2. Prostate cancer (C61: Malignant neoplasm of prostate) Patient follows Dr. Collins as directed every 6 months and prn. 02/23/2024 Pathology report- There is no evidence of invasive malignancy and/or matastaic prostate cancer in this specimen 06/04/2024 radiation oncology consult- Prostate adenocarcinoma. With recent rising PSA, hematuria and bladder mass status post transurethral resection pathology consistent with metastatic/ recurrent adenocarcinoma prostate. Prostates cancer doing well with undetectable PSA, Hematuria. 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 - History of prostate cancer - Prostate cancer - Metastatic cancer (please specify) - Other (please specify): I can update the problem list with your specified response if you would like. In responding to this request, please exercise your independent professional judgement. The fact that a question is asked does not imply that any particular answer is desired or expected. If you have any questions, please feel free to contact me at extension [phone]. Thank you! Jazmin Cano, KORY, RN, CCM, CCDS, CCDS-O [employer] Stadium Attendant [address] [address] P: [phone] F: [phone] [email or web address] From: Shilpa Naylor To: Jazmin Cano RN; Sent: 09/26/2024 14:54:25 EDT Subject: RE: Pre-Visit Planning Caller Name: ANDREASADOLPH; Caller Number: H I updated with current diagnoses. thank you [facility] Pre-Visit Planning Pre-Visit Planning From: Jazmin Cano RN To: Shilpa Naylor; Sent: 09/25/2024 13:28:59 EDT Subject: Pre-Visit Planning Due Date/Time: 09/25/2024 13:28:00 EDT Caller Name: ANDREASADOLPH; Caller Number: H Erickson Rai During a pre-visit planning chart review, I noted the following documentation in the medical record: 01/30/2024 ECHO-Interpretation Summary Image enhancing agent used for endocardial delineation. Left ventricular systolic function is normal. Ejection Fraction = 60-65%. The left ventricular wall motion is normal. Grade I diastolic dysfunction, (abnormal relaxation pattern). There is mild pulmonary hypertension. Estimated RVSP is mildly elevated at 35 mmHg. There is no pericardial effusion. No significant valvular disease Based on your medical judgment, can you please clarify if any of the following conditions are present? -Mild pulmonary hypertension -Other (please specify): I can update the Chronic Problem List with your response if you would like. In responding to this request, please exercise your independent professional judgement. The fact that a question is asked does not imply that any particular answer is desired or expected. If you have any questions, please feel free to contact me at extension [phone]. Thank you! Jazmin Cano, KORY, RN, CCM, CCDS, CCDS-O CDI Stadium Attendant [address] [address] P: [phone] F: [phone] [email or web address] From: Shilpa Naylor To: Jazmin Cano RN; Sent: 09/26/2024 14:12:23 EDT Subject: RE: Pre-Visit Planning Caller Name: JOHNSADOLPH; Caller Number: H mild pulmonary hypertension Normal [facility] Pre-Visit Planning Pre-Visit Planning From: Jazmin Cano RN To: Shilpa Naylor; Sent: 09/25/2024 13:25:26 EDT Subject: Pre-Visit Planning Due Date/Time: 09/25/2024 13:25:00 EDT Caller Name: ANDREASADOLPH; Caller Number: H Erickson rai During a pre-visit planning chart review, I noted the following Laboratory Results documented in the medical record: Labs: 02/08/2024 eGFR 37 01/12/2024 eGFR 35 05/18/2023 eGFR 55 Based on the documentation above and your medical judgement, do you feel this patient has any of the following: - Chronic Kidney Disease Stage 3b (GFR 30-44) - Other (please specify): I can update the problem list with your specified response if you would like. In responding to this request, please exercise your independent professional judgment. The fact that a question is asked does not imply that any particular answer is desired or expected. If you have any questions, please feel free to contact me at extension [phone]. Thank you! Jazmin Cano, KORY, RN, CCM, CCDS CDI Stadium Attendant [facility] [address], [place] [address] P: [phone] F: [phone] [email or web address] From: Shilpa Naylor To: Rachael DELONG, Jazmin; Sent: 09/26/2024 14:11:40 EDT Subject: RE: Pre-Visit Planning Caller Name: ADOLPH JOHNS; Caller Number: H CKD stage 3b Normal [facility] CNOVon 06-04-2024 CNOV Office Visit (RADTSA ) ADOLPH JOHNS ([id number]) 1945 M Date Time Provider Department 06/04/24 3:00 PM David KUMARI During your visit today, we recorded the following information about you: Temperature Pulse Respiration Weight 97.2 degrees 75/minute 16/minute 118.6 kg Letty Barahona RN 06/07/2024 10:34 AM Signed AUA= 7 David Kumari MD 06/07/2024 10:34 AM Signed Radiation Oncology - Follow Up Note PATIENT NAME: Adolph Johns PATIENT DIAGNOSIS: Prostate adenocarcinoma, initial PSA 7.5, biopsy [place] score 4 + 3 = 7 (grade [...] The patient presents for routine follow-up . He has had a couple episodes of hematuria, underwent cystoscopy. Since then is doing well. No obvious pathology seen. Doing well. Denies significant problems. PSA HISTORY: PSA (ng/mL) Date Value 05/07/2024 <0.02 11/09/2023 <0.02 05/08/2023 <0.02 01/19/2023 <0.02 ALLERGIES Allergen Reactions Penicillins Rash, Swelling Teramycin [Oxytetra* Unknown leuprolide (ELIGARD, 6 MONTH,) 45 mg injection Inject 45 mg subcutaneously one time only. abiraterone 250 mg tablet Take 4 tablets [...] none Androgen deprivation: Lupron/abiraterone/pr ednisone PHYSICAL EXAM: 06/04/24 1453 Pulse: 75 Resp: 16 Temp: 36.2 ?C (97.2 ?F) SpO2: 94% Weight: 118.6 kg (261 lb 7.5 oz) KPS: 100 General Appearance: Alert and oriented. No acute distress. Rectal exam is deferred. ASSESSMENT/PLAN: Prostate adenocarcinoma, initial PSA 7.5, biopsy [place] score 4 + 3 = 7 (grade group 3), pathologic stage T2c, N0, M0, stage IIC [T1-T2, N0, M0, PSA <20, GG 3] (AJCC 8th ed.), s/p prostatectomy January 2016. With recent rising PSA , hematuria and bladder mass status post transurethral resection pathology consistent with metastatic/recurrent adenocarcinoma prostate. Status post pelvic/prostate bed radiation completed 02/02/23 and ADT. 1. Prostate cancer doing well with undetectable PSA. Continue surveillance. He continues ADT including abiraterone and prednisone, and is following with urology and medical oncology. 2. Hematuria. 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 No further episodes. Could consider hyperbaric oxygen should this recur. Signed by: David Kumari MD cc: Shahriar Stephenson [address] [place] [address] No referring provider defined for this encounter. Referring Provider: NICOLAS HWANG [[id number]] Allergies As of Date: 06/04/2024 Noted Allergy Reaction PENICILLINS 10/22/2019 2 - Rash 7 - Swelling TERAMYCIN (OXYTETRACYCLINE) 10/22/2019 16 - Unknown Date Reviewed: 06/04/2024 Reviewed by: Letty Barahona RN - Fully Assessed Reason for Visit: Prostate Cancer [590] Primary Visit Diagnosis:Malignant neoplasm of prostate (HCC) [C61] Order(s):PROSTATE-SPE CIFIC ANTIGEN DIAGNOSTIC [SQPSA] Order #: [id number] FUTURE Prescriptions as of 06/07/2024 - leuprolide (ELIGARD, 6 MONTH,) 45 mg injection Inject 45 mg subcutaneously one time only. - abiraterone 250 mg tablet Take 4 tablets by mouth once daily. - predniSONE (DELTASONE) 5 mg tablet Take 1 tablet by mouth once daily. - lisinopril-hydrochlor othiazide (PRINZIDE,ZESTORETIC) 10-12.5 mg per tablet Take 1 tablet by mouth once daily. Problem List As Of Date 06/04/2024 Noted Resolved Secondary hyperparathyroidism (HCC) [N25.81] 01/16/2023 Platelets decreased (HCC) [D69.6] 01/16/2023 Medications Discontinued During This Encounter Prescriptions - calcium carbonate/vitamin D3 (CALCIUM WITH VITAMIN D3 ORAL) (Discontinue (more content not included)... Normal [facility] CNOVSPon 05-20-2024 CNOVSP Visit (SP) Office ([facility]) JOHNSADOLPH SOTO ([id number]) 1945 M Date Time Provider Department 05/20/24 2:00 PM MINOO GILL During your visit today, we recorded the following information about you: Temperature Pulse Respiration Blood pressure 97.6 degrees 79/minute 16/minute 120/72 Weight 117.9 kg Minoo Gill APRN.TEMP RECRUITER 05/20/2024 4:04 PM Signed PATIENT NAME: Adolph Johns DATE: 05/20/2024 PRIMARY CARE PHYSICIAN: Dr. René Stephenson OTHER PHYSICIANS: Dr. Grimes, Dr. Kumari Portions of this encounter note have been copied from the note from 11/16/2023 and has been updated where appropriate, and [...] Eligard every [address] Grimes. Millicent ca today and follow-up with Dr. Grimes. Overall feels well today with no particular complaints. No difficulties with urination. Has returned from [place]! Labs stable. MEDICATIONS: abiraterone 250 mg tablet Take 4 [...] seizures or tremors. PHYSICAL EXAM: Vitals: BP 120/72 Pulse 79 Temp 36.4 ?C (97.6 ?F) (Temporal) Resp 16 Wt 117.9 kg (259 lb 14.8 oz) SpO2 97% BMI 31.65 kg/m? ECOG 0 Exam limited to gross [...] or petechiae. PATHOLOGY: 11/10/2022 Bladder tumor, TURBT ([facility]) Metastatic poorly differentiated adenocarcinoma, consistent with prostate primary. LABORATORY DATA: Hemoglobin (g/dL) Date Value 05/15/2024 12.9 10/29/2020 15.8 Hematocrit (%) Date Value 05/15/2024 39.0 10/29/2020 46.8 WBC (k/uL) Date Value 05/15/2024 8.84 10/29/2020 6.85 Platelet Count (k/uL) Date Value 05/15/2024 160 10/29/2020 162 PSA 11/11/2019 0.06 10/05/2020 0.05 09/14/2021 <0.13 09/26/2022 2.05 12/08/2022 1.37 01/19/2023 <0.02 05/08/2023 <0.02 11/09/2023 <0.02 05/07/2024 <0.02 RADIOLOGY/OTHER STUDIES: 11/28/2022 MRI prostate IMPRESSION: [...] RIGHT groin lymph nodes BONES/SOFT TISSUES: * (more content not included)... 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 Procedure Operative Information Anesthesia Type: Local Procedure: [...] Urethra is: Normal. Prostate absent. The Bladder: On the L back anterior wall there are patches of raised red lesions, significantly decreased in size and in number. Necrotic debris adhered to prior resection site. No papillary tumors. , Trabeculated: None (0) The Ureteral orifices: Show efflux of clear urine Specimens Removed: None Removal: Cystoscope is removed. The patient tolerated it well. Postoperative Information Patient is discharged home with antibiotic coverage. Follow up arranged. Assessment/Plan 1. Lesion of bladder (N32.9: Bladder disorder, unspecified) CTU 01/19/24 [facility] - Neg for bladder mass. S/p Cysto 01/10/24 - There are a couple areas of radiation changes on the floor of the bladder that could have bled. But on the L anterior wall there are patches of raised red lesions, 3-4 cm in size. And on the R floor, there is a 2 cm patch of flat red lesions. -Neg cytol S/p TURBT 02/22/24. Path neg for bladder and prostate carcinoma. Pt had IO cysto to check for bladder tumor recurrence without complications today. Pt took prophylactic abx prior to procedure. Cysto today was negative for recurrence. -Surveillance cysto in 1 yr 2. 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 G8 (4+4), 15% involved by tumor. Perineural invasion present. EPE neg. SV invasion neg. Margins neg. Lymph-vascular invasion neg. pT2c bilateral disease. PN0 no regional lymph node mets. Two lymph nodes both renetta. (Path in dark side documents dated 09/27/21 from [facility]). PSMA PET scan 10/28/22 at [facility] - Neg for mets; approx 1.5cm R [...] administered 05/22/23 and 11/24/23. Taking abiraterone/prednison e. PSA remains undetectable. Eligard 45 mgIM injection given today with no complications. Left glute. Pt. denies side effects at this time. -PSA and Eligard in 6 mos -Cont Vit D and Calcium for bone health 3. Kidney stone (N20.0: Calculus of kidney) CTU 01/19/24 [facility] - 5mm nonobstructive calculus RUP. KUB 05/07/24 [facility] - Unchanged 5 mm R renal stone. Follow-up With When Contact Information GRIMES MD, Yosef R, URL [facility] [address], [place] [phone]- [phone] Additional Instructions: 6 mos (more content not included)... Normal [facility] Comment on above: Result Comment: Electronically Signed By : Yosef GRIMES MD\.br\Date and Time Signed: 05/20/24 08:39 EDT\.br\Electronically Co-Signed By: Odette Cottrell\.br\Date and Time Co-Signed: 05/20/24 08:37 EDT CNPNon 05-16-2024 CNPN Telephone (NCCAP) ADOLPH JOHNS ([id number]) 1945 M Date Time Provider Department 05/16/24 NICOLAS HWANG NCCAP During your visit today, we recorded the following information about you: Allergies As of Date: 05/16/2024 Noted Allergy Reaction PENICILLINS 10/22/2019 2 - Rash 7 - Swelling TERAMYCIN (OXYTETRACYCLINE) 10/22/2019 16 - Unknown Date Reviewed: 11/16/2023 Reviewed by: Bettina Sargent MA - Fully Assessed Prescriptions as of 05/29/2024 - abiraterone 250 mg tablet Take 4 tablets by mouth once daily. - predniSONE (DELTASONE) 5 mg tablet Take 1 tablet by mouth once daily. - calcium carbonate/vitamin D3 (CALCIUM WITH VITAMIN D3 ORAL) Take 1 tablet by mouth once daily. - lisinopril-hydrochlor othiazide (PRINZIDE,ZESTORETIC) 10-12.5 mg per tablet Take 1 tablet by mouth once daily. Problem List As Of Date 05/16/2024 Noted Resolved Secondary hyperparathyroidism (HCC) [N25.81] 01/16/2023 Platelets decreased (HCC) [D69.6] 01/16/2023 Encounter Status:Closed by HOLLY SPIVEY on 05/29/24 Normal [facility] Basic metabolic 2000 panelon 05-15-2024 Anion gap [Moles/Vol] 14 mmol/L Normal 8-15 [facility] Comment on above: Order Comment: Specimen Type: BLOOD SPEC IMENOrdering Facility: [facility] Address: [address] [place] [address] Performed By: #### 2 4321-2 ####[facility] LABCLIA [id number] [place] [address] Calcium [Mass/Vol] 10.2 mg/dL Normal 8.5-10.2 [facility] Comment on above: Order Comment: Specimen Type: BLOOD SPEC IMENOrdering Facility: [facility] Address: [address] [place] [address] Performed By: #### 2 4321-2 ####[facility] LABCLIA [id number] [place] [address] Chloride [Moles/Vol] 103 mmol/L Normal 98-107 [facility] Comment on above: Order Comment: Specimen Type: BLOOD SPEC IMENOrdering Facility: [facility] Address: [address] [place] [address] Performed By: #### 2 4321-2 ####[facility] LABCLIA [id number] [place] [address] CO2 [Moles/Vol] 24 mmol/L Normal 22-30 [facility] Comment on above: Order Comment: Specimen Type: BLOOD SPEC IMENOrdering Facility: [facility] Address: [address] [place] [address] Performed By: #### 2 4321-2 ####[facility] LABIA [id number] [place] [address] Creatinine [Mass/Vol] 1.40 mg/dL High 0.73-1.22 [facility] Comment on above: Order Comment: Specimen Type: BLOOD SPEC IMENOrdering Facility: [facility] Address: [address] [place] [address] Performed By: #### 2 4321-2 ####[facility] LABCLIA [id number] [place] [address] Creatinine and Glomerular filtration rate.predicted panel (S/P/Bld) 52 mL/min/1.73m??? Low >=60 [facility] Comment on above: Order Comment: Specimen Type: BLOOD SPEC IMENOrdering Facility: [facility] Address: [address] [place] [address] Result Comment: Paty mated Glomerular Filtration Rate [...] accurately reflect actual GFR. Performed By: #### 2 4321-2 ####[facility] LABCLIA [id number] [place] [address] Glucose [Mass/Vol] 224 mg/dL High 74-99 [facility] Comment on above: Order Comment: Specimen Type: BLOOD SPEC IMENOrdering Facility: [facility] Address: [address] [place] [address] Result Comment: The [place] Diabetes [employer] (ADA) provides guidance for cutoff [...] Standards of Medical Care in Diabetes 2016, [place] [employer]. Diabetes Care. 2016.39(Suppl 1). Performed By: #### 2 4321-2 ####[facility] LABCLIA [id number] [place] [address] Potassium [Moles/Vol] 4.0 mmol/L Normal 3.7-5.1 [facility] Comment on above: Order Comment: Specimen Type: BLOOD SPEC IMENOrdering Facility: [facility] Address: [address] [place] [address] Performed By: #### 2 4321-2 ####[facility] LABCLIA [id number] [place] [address] Sodium [Moles/Vol] 141 mmol/L Normal 136-144 [facility] Comment on above: Order Comment: Specimen Type: BLOOD SPEC IMENOrdering Facility: [facility] Address: [address] [place] [address] Performed By: #### 2 4321-2 ####[facility] LABCLIA [id number] [place] [address] Urea nitrogen [Mass/Vol] 20 mg/dL Normal 9-24 [facility] Comment on above: Order Comment: Specimen Type: BLOOD SPEC IMENOrdering Facility: [facility] Address: [address] [place] [address] Performed By: #### 2 4321-2 ####[facility] LABCLIA [id number] [place] [address] CBC W Auto Differential pane l (Bld)on 05-15-2024 Basophils (Bld) [#/Vol] 0.03 10*3/uL Normal <0.11 [facility] Comment on above: Order Comment: Specimen Type: BLOOD SPEC IMENOrdering Facility: [facility] Address: [address] [place] [address] Performed By: #### 5 7021-8 ####[facility] LABCLIA [id number] [place] [address] Basophils/100 WBC (Bld) 0.3 % Normal [facility] Comment on above: Order Comment: Specimen Type: BLOOD SPEC IMENOrdering Facility: [facility] Address: [address] [place] [address] Performed By: #### 5 7021-8 ####[facility] LABCLIA [id number] [place] [address] Differential cell count method Nom (Bld) Auto Normal [facility] Comment on above: Order Comment: Specimen Type: BLOOD SPEC IMENOrdering Facility: [facility] Address: [address] [place] [address] Performed By: #### 5 7021-8 ####[facility] LABCLIA [id number] [place] [address] Eosinophils (Bld) [#/Vol] 0.07 10*3/uL Normal <0.46 [facility] Comment on above: Order Comment: Specimen Type: BLOOD SPEC IMENOrdering Facility: [facility] Address: [address] [place] [address] Performed By: #### 5 7021-8 ####[facility] LABCLIA [id number] [place] [address] Eosinophils/100 WBC (Bld) 0.8 % Normal [facility] Comment on above: Order Comment: Specimen Type: BLOOD SPEC IMENOrdering Facility: [facility] Address: [address] [place] [address] Performed By: #### 5 7021-8 ####[facility] LABCLIA [id number] [place] [address] Erythrocyte distribution width (RBC) [Ratio] 14.2 % Normal 11.5-15.0 [facility] Comment on above: Order Comment: Specimen Type: BLOOD SPEC IMENOrdering Facility: [facility] Address: [address] [place] [address] Performed By: #### 5 7021-8 ####[facility] LABCLIA [id number] [place] [address] Hematocrit (Bld) [Volume fraction] 39.0 % Normal 39.0-51.0 [facility] Comment on above: Order Comment: Specimen Type: BLOOD SPEC IMENOrdering Facility: [facility] Address: [address] [place] [address] Performed By: #### 5 7021-8 ####[facility] LABCLIA [id number] [place] [address] Hemoglobin (Bld) [Mass/Vol] 12.9 g/dL Low 13.0-17.0 [facility] Comment on above: Order Comment: Specimen Type: BLOOD SPEC IMENOrdering Facility: [facility] Address: [address] [place] [address] Performed By: #### 5 7021-8 ####[facility] LABCLIA [id number] [place] [address] Immature granulocytes (Bld) [#/Vol] 0.13 10*3/uL High <0.10 [facility] Comment on above: Order Comment: Specimen Type: BLOOD SPEC IMENOrdering Facility: [facility] Address: [address] [place] [address] Performed By: #### 5 7021-8 ####[facility] LABCLIA [id number] [place] [address] Immature granulocytes/100 WBC (Bld) 1.5 % Normal [facility] Comment on above: Order Comment: Specimen Type: BLOOD SPEC IMENOrdering Facility: [facility] Address: [address] [place] [address] Performed By: #### 5 7021-8 ####[facility] LABCLIA [id number] [place] [address] Lymphocytes (Bld) [#/Vol] 0.80 10*3/uL Low 1.00-4.00 [facility] Comment on above: Order Comment: Specimen Type: BLOOD SPEC IMENOrdering Facility: [facility] Address: [address] [place] [address] Performed By: #### 5 7021-8 ####[facility] LABCLIA [id number] [place] [address] Lymphocytes/100 WBC (Bld) 9.0 % Normal [facility] Comment on above: Order Comment: Specimen Type: BLOOD SPEC IMENOrdering Facility: [facility] Address: [address] [place] [address] Performed By: #### 5 7021-8 ####[facility] LABCLIA [id number] [place] [address] MCH (RBC) [Entitic mass] 30.6 pg Normal 26.0-34.0 [facility] Comment on above: Order Comment: Specimen Type: BLOOD SPEC IMENOrdering Facility: [facility] Address: [address] [place] [address] Performed By: #### 5 7021-8 ####[facility] LABIA [id number] [place] [address] MCHC (RBC) [Mass/Vol] 33.1 g/dL Normal 30.5-36.0 [facility] Comment on above: Order Comment: Specimen Type: BLOOD SPEC IMENOrdering Facility: [facility] Address: [address] [place] [address] Performed By: #### 5 7021-8 ####[facility] LABCLIA [id number] [place] [address] MCV (RBC) [Entitic vol] 92.4 fL Normal 80.0-100.0 [facility] Comment on above: Order Comment: Specimen Type: BLOOD SPEC IMENOrdering Facility: [facility] Address: [address] [place] [address] Performed By: #### 5 7021-8 ####[facility] LABIA [id number] [place] [address] Monocytes (Bld) [#/Vol] 0.61 10*3/uL Normal <0.87 [facility] Comment on above: Order Comment: Specimen Type: BLOOD SPEC IMENOrdering Facility: [facility] Address: [address] [place] [address] Performed By: #### 5 7021-8 ####[facility] LABCLIA [id number] [place] [address] Monocytes/100 WBC (Bld) 6.9 % Normal [facility] Comment on above: Order Comment: Specimen Type: BLOOD SPEC IMENOrdering Facility: [facility] Address: [address] [place] [address] Performed By: #### 5 7021-8 ####[facility] LABCLIA [id number] [place] [address] Neutrophils (Bld) [#/Vol] 7.20 10*3/uL Normal 1.45-7.50 [facility] Comment on above: Order Comment: Specimen Type: BLOOD SPEC IMENOrdering Facility: [facility] Address: [address] [place] [address] Performed By: #### 5 7021-8 ####[facility] LABCLIA [id number] [place] [address] Neutrophils/100 WBC (Bld) 81.5 % Normal [facility] Comment on above: Order Comment: Specimen Type: BLOOD SPEC IMENOrdering Facility: [facility] Address: [address] [place] [address] Performed By: #### 5 7021-8 ####[facility] LABCLIA [id number] [place] [address] Nucleated RBC (Bld) [#/Vol] 10*3/uL Normal <0.01 [facility] Comment on above: Order Comment: Specimen Type: BLOOD SPEC IMENOrdering Facility: [facility] Address: [address] [place] [address] Performed By: #### 5 7021-8 ####[facility] LABCLIA [id number] [place] [address] Nucleated RBC/100 WBC (Bld) [Ratio] 0.0 /100 WBC Normal [facility] Comment on above: Order Comment: Specimen Type: BLOOD SPEC IMENOrdering Facility: [facility] Address: [address] [place] [address] Performed By: #### 5 7021-8 ####[facility] LABCLIA [id number] [place] [address] Platelet mean volume (Bld) [Entitic vol] 9.9 fL Normal 9.0-12.7 [facility] Comment on above: Order Comment: Specimen Type: BLOOD SPEC IMENOrdering Facility: [facility] Address: [address] [place] [address] Performed By: #### 5 7021-8 ####[facility] LABCLIA [id number] [place] [address] Platelets (Bld) [#/Vol] 160 10*3/uL Normal 150-400 [facility] Comment on above: Order Comment: Specimen Type: BLOOD SPEC IMENOrdering Facility: [facility] Address: [address] [place] [address] Performed By: #### 5 7021-8 ####[facility] LABIA [id number] [place] [address] RBC (Bld) [#/Vol] 4.22 10*6/uL Normal 4.20-6.00 [facility] Comment on above: Order Comment: Specimen Type: BLOOD SPEC IMENOrdering Facility: [facility] Address: [address] [place] [address] Performed By: #### 5 7021-8 ####[facility] LABIA [id number] [place] [address] WBC (Bld) [#/Vol] 8.84 10*3/uL Normal 3.70-11.00 [facility] Comment on above: Order Comment: Specimen Type: BLOOD SPEC IMENOrdering Facility: [facility] Address: [address] [place] [address] Performed By: #### 5 7021-8 ####[facility] LABCLIA [id number] [place] [address] IMMUNOFIXATION SCREEN, SERUM on 05-15-2024 INTERPRETATION (MPA) Atypical restricted bands are present in the IgG and lambda regions. Consistent with IgG lambda monoclonal gammopathy. Normal [facility] Comment on above: Order Comment: Specimen Type: BLOOD SPEC IMENOrdering Facility: [facility] Address: [address] [place] [address] Performed By: #### I FES ####[facility] LABIA [id number] [place] [address] [place] MPA RESULT M protein is present. Abnormal No M p rotein is identified. [facility] Comment on above: Order Comment: Specimen Type: BLOOD SPEC IMENOrdering Facility: [facility] Address: [address] [place] [address] Performed By: #### I FES ####[facility] LABIA [id number] [place] [address] [place] STAFF REVIEW ([facility] [[email or web address] Reviewed by Gonzalo Haro MD, Ph.D ([id number]) Normal [facility] Comment on above: Order Comment: Specimen Type: BLOOD SPEC IMENOrdering Facility: [facility] Address: [address] [place] [address] Performed By: #### I FESC ####[facility] LABIA [id number] [place] [address] [place] IMMUNOGLOBULINS,IGG,IGA,IGMo n 05-15-2024 IgA [Mass/Vol] 50 mg/dL Low 70-400 [facility] Comment on above: Order Comment: Specimen Type: BLOOD SPEC IMENOrdering Facility: [facility] Address: [address] [place] [address] Performed By: #### S ERIMM ####[facility] LABIA [id number] [place] [address] [place] IgG [Mass/Vol] 1119 mg/dL Normal 700-1600 [facility] Comment on above: Order Comment: Specimen Type: BLOOD SPEC IMENOrdering Facility: [facility] Address: [address] [place] [address] Performed By: #### S ERIMM ####[facility] LABCLIA [id number] [place] [address] [place] IgM [Mass/Vol] 69 mg/dL Normal 40-230 [facility] Comment on above: Order Comment: Specimen Type: BLOOD SPEC IMENOrdering Facility: [facility] Address: [address] [place] [address] Performed By: #### S ERIMM ####[facility] LABCLIA [id number] [place] [address] [place] KAPPA/LIM,FREE,SERon 2024 Immunoglobulin light chains.kappa.zaida e (S) [Mass/Vol] 23.6 mg/L High 3.3-19.4 [facility] Comment on above: Order Comment: Specimen Type: BLOOD SPEC IMENOrdering Facility: [facility] Address: [address] [place] [address] Result Comment: Rare ly, increased serum free light chains levels may not be detected or accurately quantified due to prozone phenomenon or in high viscosity samples using this immunoturbidimetric assay. Correlation with other laboratory results and clinical findings is recommended. The [place] Free Light Chain was performed using the Binding Site Optilite immunoturbidimetric method. Result obtained with different assay methods or kits cannot be used interchangeably. Performed By: #### K LFRS ####[facility] LABCLIA [id number] [place] [address] [place] Immunoglobulin light chains.kappa/Imm unoglobulin light chains.lambda (S) [Mass ratio] 1.34 Normal 0.26-1.65 [facility] Comment on above: Order Comment: Specimen Type: BLOOD SPEC IMENOrdering Facility: [facility] Address: [address] [place] [address] Performed By: #### K LFRS ####[facility] LABIA [id number] [place] [address] [place] Immunoglobulin light chains.lambda.fr ee [Mass/Vol] 17.6 mg/L Normal 5.7-26.3 [facility] Comment on above: Order Comment: Specimen Type: BLOOD SPEC IMENOrdering Facility: [facility] Address: [address] [place] [address] Result Comment: Rare ly, increased serum free [...] used interchangeably. Performed By: #### K LFRS ####[facility] [id number] [place] [address] [place] PROTEIN ELECTROPHORESIS SERU M WITH FAUSTINA (P)on 05-15-2024 Albumin [Mass/Vol] 3.99 g/dL Normal 3.43-5.41 [facility] Comment on above: Order Comment: Specimen Type: BLOOD SPEC IMENOrdering Facility: [facility] Address: [address] [place] [address] Performed By: #### L [id number] ####[facility] LABIA [id number] [place] [address] [place] Alpha 1 globulin Elph [Mass/Vol] 0.31 g/dL Normal 0.18-0.43 [facility] Comment on above: Order Comment: Specimen Type: BLOOD SPEC IMENOrdering Facility: [facility] Address: [address] [place] [address] Performed By: #### L [id number] ####[facility] LABCLIA [id number] [address] [place] Alpha 2 globulin Elph [Mass/Vol] 0.81 g/dL Normal 0.42-0.98 [facility] Comment on above: Order Comment: Specimen Type: BLOOD SPEC IMENOrdering Facility: [facility] Address: [address] [place] [address] Performed By: #### L [id number] ####[facility] LABIA [id number] [address] [place] Beta globulin Elph [Mass/Vol] 0.76 g/dL Normal 0.61-1.17 [facility] Comment on above: Order Comment: Specimen Type: BLOOD SPEC IMENOrdering Facility: [facility] Address: [address] [place] [address] Performed By: #### L [id number] ####[facility] LABIA [id number] [address] [place] COMMENT (SERUM PROT ELECTRO) Monoclonal Protein analysis (immunofixation) is not indicated. Normal [facility] Comment on above: Order Comment: Specimen Type: BLOOD SPEC IMENOrdering Facility: [facility] Address: [address] [place] [address] Performed By: #### L [id number] ####[facility] LABIA [id number] [place] [address] [place] Gamma globulin Elph [Mass/Vol] 1.03 g/dL Normal 0.53-1.51 [facility] Comment on above: Order Comment: Specimen Type: BLOOD SPEC IMENOrdering Facility: [facility] Address: [address] [place] [address] Performed By: #### L [id number] ####[facility] LABCLIA [id number] [place] [id number] [place] INTERPRETATION COMMENT FOR PROTEIN ELECTROPHORESIS See separate immunofixation report for characterization of monoclonal gammopathy. Normal [facility] Comment on above: Order Comment: Specimen Type: BLOOD SPEC IMENOrdering Facility: [facility] Address: [address] [place] [address] Performed By: #### L [id number] ####[facility] LABIA [id number] [place] [id number] [place] M-PROTEIN LOCATION Gamma Fraction 1 Normal [facility] Comment on above: Order Comment: Specimen Type: BLOOD SPEC IMENOrdering Facility: [facility] Address: [address] [place] [address] Performed By: #### L [id number] ####[facility] LABIA [id number] [place] [address] [place] Protein Fractions [Interp] An M protein is identified on protein electrophoresis. Abnormal No definitive M protein is identified on protein electrophoresis. [facility] Comment on above: Order Comment: Specimen Type: BLOOD SPEC IMENOrdering Facility: [facility] Address: [address] [place] [address] Performed By: #### L [id number] ####[facility] LABIA [id number] [place] [address] [place] Protein.monoclon al Elph [Mass/Vol] 0.78 g/dL High <=0.00 [facility] Comment on above: Order Comment: Specimen Type: BLOOD SPEC IMENOrdering Facility: [facility] Address: [address] [place] [address] Performed By: #### L [id number] ####[facility] LABIA [id number] [place] [id number] [place] SPE STAFF REVIEW Reviewed by Gonzalo Haro MD, Ph.D ([id number]) Normal [facility] Comment on above: Order Comment: Specimen Type: BLOOD SPEC IMENOrdering Facility: [facility] Address: [address] [place] [address] Performed By: #### L [id number] ####[facility] LABCLIA [id number] [place] [id number] [place] Prot SerPl-mCncon 05-15-2024 Protein [Mass/Vol] 6.9 g/dL Normal 6.3-8.0 [facility] Comment on above: Order Comment: Specimen Type: BLOOD SPEC IMENOrdering Facility: [facility] Address: [address] [place] [address] Performed By: #### 2 885-2 ####[facility] LABIA [id number] [place] [id number] [place] PSA SerPl-mCncon 05-07-2024 Prostate specific Ag [Mass/Vol] ng/mL Normal <2.60 [facility] Comment on above: Order Comment: Specimen Type: BLOOD SPEC IMENOrdering Facility: [facility] Address: [address] [place] [address] Result Comment: Tota l PSA test methodology used is the Electrochemiluminescence Immunoassay by [employer]. Total PSA values by differing methodologies cannot be interchanged. Performed By: #### 2 857-1 ####[facility] LABIA [id number] [place] [id number] [place] XR ABDOMEN 1V SUPINEon 05-07 XR ABDOMEN 1V SUPINE * * *Final Report* * * DATE OF EXAM: May 07 2024 1:20PM NRX [id number] - XR ABDOMEN 1V SUPINE / PROCEDURE REASON: kidney stone * * * * Physician Interpretation * * * * RESULT: ABDOMINAL RADIOGRAPHS HISTORY: kidney stone. TECHNIQUE: 3 view(s) of the abdomen were obtained. COMPARISON: 01/19/2024 RESULT: 5 mm calculus projecting right kidney. No definite calcifications projecting of left renal shadow. No dilated loops of bowel. Moderate stool colon. IMPRESSION: Unchanged 5 mm right renal calculus Transcribe Date/Time: May 07 2024 1:23P Dictated by: PRAKASH YEE MD This examination was interpreted and the report reviewed and electronically signed by: PRAKASH YEE MD on May 07 2024 1:27PM EST Thank you for allowing us to participate in the care of your patient. Should there be any questions regarding this interpretation, please call [phone]. If you are unable to reach us at the number above, please feel free to contact [facility] at [phone]. [id number] [id number] Normal [facility] Urology Office/Clinic Noteon 03-04-2024 Urology Office/Clinic Note Urology Office/Clinic Note Chief Complaint POT TURBT HPI Staff 78yr old male pt here for f/u TURBT done 02/22/24 and to review path. 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, bladder neoplasm of uncertain malignant potential Dysuria: denies Incomplete bladder emptying: denies Hematuria: denies Frequency: once every 1-2 hours Urgency: yes Nocturia: 2-4 x a night Stream: denies hesitancy, has a weak stream Leaking: denies Post void dripping: denies Wearing pads/ Depends: pads daily, changes them every 2 hours Urge incontinence: denies Stress incontinence: leaking when coughing, sneezing since cath was taken out Incontinence without Sensory Awareness: denies Abdominal pain: denies Flank pain: denies Sexual complaints: _ History of Present Illness Tests reviewed: reviewed UA, operative note, path report I have reviewed the previous health record [...] See HPI. Physical Exam Vitals & Measurements HR: 67(Peripheral) RR: 16 BP: 142/74 HT: 75 in HT: 190 cm WT: [...] in dark side documents dated 09/27/21 from [facility] PSMA PET scan 10/28/22 at [facility] - Neg for mets; approx 1.5cm [...] administered 05/22/23 and 11/24/23. Taking abiraterone/prednison e. [1] Follow up 05/21/23 for 6 mo with PSA and Eligard or sooner if needed. Pt understands and agrees with plan. -Cont Vit D and Calcium for bone health. 2. Lesion of bladder (N32.9: Bladder disorder, unspecified) S/p Cysto 01/10/24 - There are a couple areas of radiation changes on the floor of the bladder that could have bled. But on the L anterior wall there are patches of raised red lesions, 3-4 cm in size. And on the R floor, there is a 2 cm patch of flat red lesions. -Neg cytol S/p TURBT 02/22/24. Path shows occasional mild urothelial atypia of uncertain significance in at least one fragment. Incidental marked angiodysplasia in the lamina propria of a few fragments. Mild to moderate infiltration of eosinophils in lamina propria of a few fragments. Few pigmented histiocytes in 2 fragments (effect of old hemorrhage). Muscularis propria muscle in at least 1 fragment wo tumor involvement. -Spoke to pathology today and was able to confirm path did not show bladder or prostate carcinoma. The pathology report was reviewed with the patient in detail today. There is no evidence of malignancy and no further evaluation of the tissue removed is planned. All questions were answered and the report discussed in terms that the patient could understand. -Surveillance cysto in May (per f/u above) 3. History of kidney stones (Z87.442: Personal history of urinary calculi) Has not had imaging done in a while. Will update this. -Complete KUB prior to f/u in May Follow-up With When Contact Information Yosef GRIMES MD, [facility] [address], [place] [address] [phone] Additional Instructions: Has f/u 05/20/24 w/ PSA and Eligard and KUB, also to schedule cysto Patient Education Cystosc (more content not included)... Normal [facility] Comment on above: Result Comment: Electronically Signed By : Yosef GRIMES MD\.br\Date and Time Signed: 03/04/24 10:56 EST\.br\Electronically Co-Signed By: Odette Cottrell\.br\Date and Time Co-Signed: 03/04/24 10:55 EST James 02-22-2024 L - -------- Specimen: [id number] Received: 02/23/24-1220 Status: COLE Kay Num: [id number] Spec Type: Surgical Subm Dr: Yosef Grimes MD Tissues: A Urinary Bladder - TUR (BLADDER LESION) Procedures: HE/3, Gross/Micro L5, AE1-AE3, CK20, P53 -------- Age/ Patient Sex Location Account Attending Physician -------- Adolph Johns 78/M LABELL [id number] Yosef Grimes MD -------- SPEC NUM: [id number] RECD: 02/23/24 STATUS: COLE KAY NUM: [id number] JOSE ANGEL: 02/22/[address] [facility] [address]: Yosef Grimes MD ENTERED: 02/23/[address]: William Peterson SPEC TYPE: Surgical DEPT: LUCY SAUL ENTERED BY: [id number] RECV BY: [id number] ORDERED: HE/3, Gross/Micro L5, AE1-AE3, CK20, P53 ORDERED: HE/3, Gross/Micro L5, AE1-AE3, CK20, P53 Supplemental Report Addendum 1 Entered: 03/04/24 Supplemental report for additional information per request of the surgeon, without a change of final diagnosis: -Per request of Dr. Grimes, the case received a second review -There is no evidence of invasive malignancy and/or metastatic prostate cancer in this specimen Addendum Signed (signature on file) Bertha Kline MD 03/04/24 1108 -------- Pathological Diagnosis Urinary bladder lesions, TURBT: -Occasional mild urothelial atypia of uncertain significance in at least 1 fragment -Incidental marked angiodysplasia in the lamina propria of a few fragments -Mild to moderate infiltration of eosinophils are also noted in lamina propria of few fragments -------- Specimen: [id number] Received: 02/23/24-1220 Status: COLE Kay Num: [id number] Spec Type: Surgical Subm Dr: Yosef Grimes MD Tissues: A Urinary Bladder - TUR (BLADDER LESION) Procedures: HE/3, Gross/Micro L5, AE1-AE3, CK20, P53 -------- Patient: Adolph Johns [id number] (Continued) -------- Specimen: [id number] Received: 02/23/24 (Continued) Pathological Diagnosis (Continued) Signed (signature on file) Bertha Kline MD 02/27/241651 -------- Specimen: [id number] Received: 02/23/24 Status: COLE Sharita Num: [id number] Spec Type: Surgical Subm Dr: Yosef Grimes MD Tissues: A Urinary Bladder - TUR (BLADDER LESION) Procedures: HE/3, Gross/Micro L5, AE1-AE3, CK20, P53 -------- Patient: Adolph Johns [id number] (Continued) -------- Specimen: [id number] Received: 02/23/24-1220 (Continued) Pathological Diagnosis (Continued) -Few pigmented histiocytes are also found in 2 fragment (Effect of old hemorrhage) -Muscularis propria muscle in at least 1 fragment without tumor involvement Note: -Patchy mild spongiosis of urothelial mucosa in many fragments with occasional slight nuclear enlargement, and rare exocytosis of eosinophils -The nuclei are generally ovoid with evenly and only slightly condensed chromatin -No significant nuclear hyperchromatism or nuclear pleomorphism identified -The urothelial layer in all fragments also show vice president sales and marketing or adequate streaming maturation -AE1/3 IHC did not show obvious stromal invasive component -CK20 showing diffuse staining of the urothelial layer in only 1 fragment -There is marked disruption of the P53 IHC slide, and is not contributory (Also no charge for the study) -The occasional urothelial cell atypia may be reactive changes due to chronic injury of the bladder with associated inflammation and angiodysplasia, and no definite urothelial CIS in the examination -Continuous patient clinical surveillance follow ups are also suggested Clinical Information Bladder tumors lesions, hematuria Gross Description Part A is received in formalin labeled with the patients name, date of , and bladder lesions are 0.2 g of jackman-pink, rubbery tissue chips, 1 x 0.8 x 0.2 cm in aggregate. The specimen is filtered and entirely submitted in a single cassette. (1, ns, [id number] A) JG Microscopic Description Microscopic examinations are performed supporting the above interpretation CPT Codes 92413 19265 (more content not included)... Normal [facility] Heart and Vascular Office/Cl inic Noteon 01-23-2024 [...] Not Given Parent Or Guardian Refuses Normal [facility] Comment on above: Result Comment: Electronically Signed By : Bob ROSARIO, Meño\.br\Date and Time Signed: 01/23/24 13:[address] UROGRAM WO/W IVCONon 12- CT UROGRAM WO/W IVCON * * *Final Report* * * DATE OF EXAM: Jan 19 2024 9:37AM [facility] 0560 - CT UROGRAM WO/W IVCON [...] Linear band of scarring right lower lobe. Trial Examiner (topogram) images: Unremarkable. IMPRESSION: Decreased size of [...] any questions regarding this interpretation, please call [phone]. If you are unable to reach us at the number above, please feel free to contact [facility] at [phone]. [id number] N Normal [facility] Urine Cytology ([facility])on 03-17-2023 Microscopic exam Cytology (U) [Interp] Diagnosis Info Invalid Interpretation Code [facility] Comment on above: Result Comment: A:Urine,Urine:Voided Interpretation - Adequate cellularity for evaluation. CPT 43241 MicroScopic Description - Adequacy - Gross Description Site ID:A color Yellow fixative Alcohol Specimen designated Urine received in alcohol preservative and labeled with the patient???s name, consists of 50ml clear yellow fluid. Electronically signed by : on: 01/15/2024 13:14:46 Performed By: #### 1 [id number] ####[facility] [address] [place] [address] Ambulatory Visit Summaryon 1 03-12-2023 Ambulatory Visit Summary Ambulatory Visit Summary GONZÁLEZ JOHNSDERECK Mart :1945 Visit Date:01/10/2024 Ambulatory Visit Instructions Your [...] Yosef GRIMES MD Where: [facility] [address] [address] 2024 11:00 AM EDT With: Where: [facility] [address] [address]- You Need to Schedule the Following Appointments Follow Up with Yosef GRIMES MD, URL When: Where: [facility] [address] [place] [address]- Medications What How Much When Instructions Unchanged [...] these instructions at home: Medicines ??? Take uhxq-utu-uokokkf and prescription medicines only as told by your health care provider. ??? If you were prescribed an antibiotic medicine, take it as told by your health care provider. Do not stop taking the antibiotic even if you start to feel better. ??? (more content not included)... Normal [facility] Urology Office/Clinic Noteon 01-10-2024 Urology Office/Clinic [...] in dark side documents dated 09/27/21 from [facility]). PSMA PET scan 10/28/22 at [facility] - Neg for mets; approx 1.5cm [...] [facility] (more content not included)... Normal [facility] Comment on above: Result Comment: Electronically Signed By : Yosef GRIMES MD\.br\Date and Time Signed: 01/10/24 13:13 EST\.br\Electronically Co-Signed By: Hawa Land\.br\Date and Time Co-Signed: 01/10/24 13:12 EST Ambulatory Visit Summaryon 1 03-10-2023 Ambulatory Visit Summary Ambulatory Visit Summary ADOLPH JOHNS :1945 Visit Date:01/08/2024 Ambulatory Visit Instructions Your [...] prostate using ultrasound (US) guidance (11/03/2015), Colonoscopy (2016), Colonoscopy (02/07/2012). Discharge Vitals Temperature (Oral) 37 ???C Heart Rate (Peripheral) 70 Respiratory Rate 18 Blood Pressure 137/83 Height 190 cm Height 75 in Weight 119.9 kg Weight 264.334 lb BMI 33.21 What to do next Scheduled Follow-Up Appointments Monday 1:00 PM EST With: Yosef GRIMES MD Where: [facility] [address] [facility] [place] [address]- Monday 12:45 PM EDT With: Yosef GRIMES MD Where: [facility] [address] [place] [address] 2024 11:00 AM EDT With: Where: [facility] [address] [address]- You Need to Schedule the Following Appointments Follow Up with Yosef GRIMES MD, URL When: Where: [facility] [address], [place] [address] [phone] Medications What How Much When Instructions New ciprofloxacin (Cipro 500 mg Tab) 1 Tablets By Mouth Every day take one tab day before procedure and one tab after procedure Pickup at [facility] 1422 Unchanged abiraterone (abiraterone 250 mg oral tablet) [...] physician if questions or concerns Pharmacy Information [facility] 1429: [address] [place], [place] [id number] [phone] Allergies oxytetracycline (Fever, Swelling at injection site) [...] microscope (biopsy (more content not included)... Normal [facility] Urine Cytology ([facility])on 03-10-2023 Method of Extraction Voided Normal [facility] Comment on above: Performed By: #### [id number] ####[facility] [address] [place] [address] Number of Jars 1 Invalid Interpretation Code [facility] Comment on above: Performed By: #### [id number] ####[facility] [address] [place] [address] Specimen Urine Normal [facility] Comment on above: Performed By: #### [id number] ####[facility] [address] [place] [address] Type of Service Technical Only Normal [facility] Comment on above: Performed By: #### [id number] ####[facility] [address] [place] [address] Urology Office/Clinic Noteon 01-08-2024 Urology Office/Clinic Note [...] negative margins. PSMA PET scan 10/28/22 at [facility] - neg for mets; approx 1.5cm [...] #2 Follow-up With When Contact Information Yosef GRIEMS MD, URL [facility] [address] [place] [phone] Additional Instructions: sched cysto Patient Education Cystoscopy Hematuria, Adult I, Odette Cottrell, personally scribed for Dr. Grimes on 01/08/2024 10:14:36. . Documentation recorded by the Odette casas (more content not included)... Normal [facility] Comment on above: Result Comment: Electronically Signed [...] DATE/TIME: 01/01/2024 17:14 EST FREE TEXT SOURCE: CORNELIO ROSARIO, Yosef GRIMES MD, Yosef Bunch FINAL REPORTS Final Report [] Verified Date/Time: 01/03/2024 09:40 EST 500 cfu/ml Mixed skin contaminants Performing Locations R1: This test was performed at: [facility], [address] [place] [address], [address] , [place], Normal [facility] Comment on above: Performed By: #### [id number] #### [facility] [address] [place] [address] Ambulatory Visit Summaryon 1 03-02-2023 Ambulatory Visit Summary Ambulatory Visit Summary ADOLPH JOHNS :1945 Visit Date:01/01/2024 Ambulatory Visit Instructions Your Diagnosis Microscopic hematuria Your Care Team Attending Physician - CORNELIO ROSARIO, Yosef Bunch Primary Care Physician - Shilpa Naylor This [...] Yosef GRIMES MD Where: [facility] of [address] [address]- Monday 12:45 PM EDT With: Yosef GRIMES MD Where: [facility] of [facility] [address] [facility] [place] [address] 2024 11:00 AM EDT With: Where: [address] [address]- Medications What How Much When Instructions Unchanged [...] for choosing us for your care. Normal [facility] [place] 12-29-2023 NORBERTO Telephone (RADTSA) ADOLPH JOHNS ([id number]) 1945 M Date Time Provider Department 12/29/23 David KUMARI During your visit today, we recorded the following information about you: Letty Barahona LPN 12/29/2023 11:50 AM Signed Adolph [...] Encounter Status:Closed by PEGGY LAKHANI on 01/01/24 [facility] Ambulatory Visit Summaryon 1 Ambulatory Visit [...] Yosef GRIMES MD Where: [facility] [address] [place] [address] 2024 11:00 AM EDT With: Where: [facility] [address] [address]- You Need to Schedule the Following Appointments Follow Up with Yosef GRIMES MD, URL When: Where: [address] [place] [address]- Medications What How Much When Instructions Unchanged [...] diagnosed? Th (more content not included)... Normal [facility] Urology Office/Clinic Noteon 11-24-2023 Urology Office/Clinic Note [...] negative margins. PSMA PET scan 10/28/22 at [facility] - neg for mets; approx 1.5cm [...] With When Contact Information CORNELIO ROSARIO, Yosef Bunhc, URL [address] [place] [address]- Additional Instructions: 6 mos w/ PSA & [...] biopsy of (more content not included)... Normal [facility] Comment on above: Result Comment: Electronically Signed By : Yosef GRIMES MD\.br\Date and Time Signed: 11/24/23 12:43 EDT\.br\Electronically Co-Signed By: Esme Noonan\.br\Date and Time Co-Signed: 11/24/23 12:36 EDT Basic metabolic 2000 panelOr dered By: Hloly Díaz on 11-16-2023 Anion gap [Moles/Vol] 13 mmol/L 8 - 15 mmol/L [facility] Calcium [Mass/Vol] 10.3 mg/dL High 8.5 - 10.2 mg/dL [facility] Chloride [Moles/Vol] 102 mmol/L 98 - 107 mmol/L [facility] CO2 [Moles/Vol] 23 mmol/L 22 - 30 mmol/L [facility] Creatinine [Mass/Vol] 1.35 mg/dL High 0.73 - 1.22 mg/dL [facility] GFR/1.73 sq M.predicted among non-blacks MDRD (S/P/Bld) [Vol rate/Area] 54 mL/min/{1.73_m2} Low - PINF [facility] Comment on above: Estimated Glomerular Filtration Rate [...] 276 mg/dL High 74 - 99 mg/dL [facility] Comment on above: The [place] Diabetes [employer] (ADA) provides guidance for cutoff [...] Standards of Medical Care in Diabetes 2016, [place] [employer]. Diabetes Care. 2016.39(Suppl 1). Interpretation and review of laboratory results Abnormal [facility] Potassium [Moles/Vol] 4.0 mmol/L 3.7 - 5.1 mmol/L [facility] Sodium [Moles/Vol] 138 mmol/L 136 - 144 mmol/L [facility] Urea nitrogen [Mass/Vol] 22 mg/dL 9 - 24 mg/dL [facility] Basic metabolic 2000 panelon 11-16-2023 Anion gap [Moles/Vol] 13 mmol/L Normal 8-15 [facility] Comment on above: Order Comment: Specimen Type: BLOOD SPEC IMENOrdering Facility: [facility] Address: [address] [id number] Performed By: #### 2 4321-2 ####[facility] LABCLIA [id number] [place] [address] Calcium [Mass/Vol] 10.3 mg/dL High 8.5-10.2 [facility] Comment on above: Order Comment: Specimen Type: BLOOD SPEC IMENOrdering Facility: [facility] Address: [address] [place] [address] Performed By: #### 2 4321-2 ####[facility] LABCLIA [id number] [place] [address] Chloride [Moles/Vol] 102 mmol/L Normal 98-107 [facility] Comment on above: Order Comment: Specimen Type: BLOOD SPEC IMENOrdering Facility: [facility] Address: [address] [place] [address] Performed By: #### 2 4321-2 ####[facility] LABCLIA [id number] [place] [address] CO2 [Moles/Vol] 23 mmol/L Normal 22-30 [facility] Comment on above: Order Comment: Specimen Type: BLOOD SPEC IMENOrdering Facility: [facility] Address: [address] [place] [address] Performed By: #### 2 4321-2 ####[facility] LABCLIA [id number] [place] [address] Creatinine [Mass/Vol] 1.35 mg/dL High 0.73-1.22 [facility] Comment on above: Order Comment: Specimen Type: BLOOD SPEC IMENOrdering Facility: [facility] Address: [address] [place] [address] Performed By: #### 2 4321-2 ####[facility] LABCLIA [id number] [place] [address] Creatinine and Glomerular filtration rate.predicted panel (S/P/Bld) 54 mL/min/1.73m??? Low >=60 [facility] Comment on above: Order Comment: Specimen Type: BLOOD SPEC IMENOrdering Facility: [facility] Address: [address] [place] [address] Result Comment: Paty mated Glomerular Filtration Rate [...] accurately reflect actual GFR. Performed By: #### 2 4321-2 ####[facility] LABCLIA [id number] [place] [address] Glucose [Mass/Vol] 276 mg/dL High 74-99 [facility] Comment on above: Order Comment: Specimen Type: BLOOD SPEC IMENOrdering Facility: [facility] Address: [address] [place] [address] Result Comment: The [place] Diabetes [employer] (ADA) provides guidance for cutoff [...] Standards of Medical Care in Diabetes 2016, [place] [employer]. Diabetes Care. 2016.39(Suppl 1). Performed By: #### 2 4321-2 ####[facility] LABCLIA [id number] [place] [address] Potassium [Moles/Vol] 4.0 mmol/L Normal 3.7-5.1 [facility] Comment on above: Order Comment: Specimen Type: BLOOD SPEC IMENOrdering Facility: [facility] Address: [address] [place] [address] Performed By: #### 2 4321-2 ####[facility] LABCLIA [id number] [place] [address] Sodium [Moles/Vol] 138 mmol/L Normal 136-144 [facility] Comment on above: Order Comment: Specimen Type: BLOOD SPEC IMENOrdering Facility: [facility] Address: [address] [place] [address] Performed By: #### 2 4321-2 ####[facility] LABCLIA [id number] [place] [address] Urea nitrogen [Mass/Vol] 22 mg/dL Normal 9-24 [facility] Comment on above: Order Comment: Specimen Type: BLOOD SPEC IMENOrdering Facility: [facility] Address: [address] [place] [address] Performed By: #### 2 4321-2 ####[facility] LABCLIA [id number] [place] [address] CBC W Auto Differential pane l (Bld)on 11-16-2023 Basophils (Bld) [#/Vol] 0.03 10*3/uL [facility] Basophils/100 WBC (Bld) 0.4 % [facility] Differential cell count method Nom (Bld) Auto [facility] Eosinophils (Bld) [#/Vol] 0.08 10*3/uL [facility] Eosinophils/100 WBC (Bld) 1.0 % [facility] Erythrocyte distribution width (RBC) [Ratio] 14.6 % 11.5 - 15.0 % [facility] Hematocrit (Bld) [Volume fraction] 40.6 % 39.0 - 51.0 % [facility] Hemoglobin (Bld) [Mass/Vol] 13.7 g/dL 13.0 - 17.0 g/dL [facility] Immature granulocytes (Bld) [#/Vol] 0.12 10*3/uL High [facility] Immature granulocytes/100 WBC (Bld) 1.5 % [facility] Interpretation and review of laboratory results Abnormal [facility] Lymphocytes (Bld) [#/Vol] 0.64 10*3/uL Low [facility] Lymphocytes/100 WBC (Bld) 7.9 % [facility] MCH (RBC) [Entitic mass] 30.6 pg 26.0 - 34.0 pg [facility] MCHC (RBC) [Mass/Vol] 33.7 g/dL 30.5 - 36.0 g/dL [facility] MCV (RBC) [Entitic vol] 90.8 fL 80.0 - 100.0 fL [facility] Monocytes (Bld) [#/Vol] 0.50 10*3/uL [facility] Monocytes/100 WBC (Bld) 6.2 % [facility] Neutrophils (Bld) [#/Vol] 6.74 10*3/uL [facility] Neutrophils/100 WBC (Bld) 83.0 % [facility] Nucleated RBC (Bld) [#/Vol] NINF [facility] Nucleated RBC/100 WBC (Bld) [Ratio] 0.0 % /100 WBC [facility] Platelet mean volume (Bld) [Entitic vol] 10.2 fL 9.0 - 12.7 fL [facility] Platelets (Bld) [#/Vol] 191 10*3/uL [facility] RBC (Bld) [#/Vol] 4.47 10*6/uL 4.20 - 6.00 m/uL [facility] WBC (Bld) [#/Vol] 8.11 10*3/uL [facility] Basophils (Bld) [#/Vol] 0.03 10*3/uL Normal <0.11 [facility] Comment on above: Order Comment: Specimen Type: BLOOD SPEC IMENOrdering Facility: [facility] Address: [address] [place] [address] Performed By: #### 5 7021-8 ####[facility] LABCLIA [id number] [place] [address] Basophils/100 WBC (Bld) 0.4 % Normal [facility] Comment on above: Order Comment: Specimen Type: BLOOD SPEC IMENOrdering Facility: [facility] Address: [address] [place] [address] Performed By: #### 5 7021-8 ####[facility] LABCLIA [id number] [place] [address] Differential cell count method Nom (Bld) Auto Normal [facility] Comment on above: Order Comment: Specimen Type: BLOOD SPEC IMENOrdering Facility: [facility] Address: [address] [place] [address] Performed By: #### 5 7021-8 ####[facility] LABCLIA [id number] [place] [address] Eosinophils (Bld) [#/Vol] 0.08 10*3/uL Normal <0.46 [facility] Comment on above: Order Comment: Specimen Type: BLOOD SPEC IMENOrdering Facility: [facility] Address: [address] [place] [address] Performed By: #### 5 7021-8 ####[facility] LABCLIA [id number] [place] [address] Eosinophils/100 WBC (Bld) 1.0 % Normal [facility] Comment on above: Order Comment: Specimen Type: BLOOD SPEC IMENOrdering Facility: [facility] Address: [address] [place] [address] Performed By: #### 5 7021-8 ####[facility] LABCLIA [id number] [place] [address] Erythrocyte distribution width (RBC) [Ratio] 14.6 % Normal 11.5-15.0 [facility] Comment on above: Order Comment: Specimen Type: BLOOD SPEC IMENOrdering Facility: [facility] Address: [address] [place] [address] Performed By: #### 5 7021-8 ####[facility] LABCLIA [id number] [place] [address] Hematocrit (Bld) [Volume fraction] 40.6 % Normal 39.0-51.0 [facility] Comment on above: Order Comment: Specimen Type: BLOOD SPEC IMENOrdering Facility: [facility] Address: [address] [place] [address] Performed By: #### 5 7021-8 ####[facility] LABCLIA [id number] [place] [address] Hemoglobin (Bld) [Mass/Vol] 13.7 g/dL Normal 13.0-17.0 [facility] Comment on above: Order Comment: Specimen Type: BLOOD SPEC IMENOrdering Facility: [facility] Address: [address] [place] [address] Performed By: #### 5 7021-8 ####[facility] LABCLIA [id number] [place] [address] Immature granulocytes (Bld) [#/Vol] 0.12 10*3/uL High <0.10 [facility] Comment on above: Order Comment: Specimen Type: BLOOD SPEC IMENOrdering Facility: [facility] Address: [address] [place] [address] Performed By: #### 5 7021-8 ####[facility] LABCLIA [id number] [place] [address] Immature granulocytes/100 WBC (Bld) 1.5 % Normal [facility] Comment on above: Order Comment: Specimen Type: BLOOD SPEC IMENOrdering Facility: [facility] Address: [address] [place] [address] Performed By: #### 5 7021-8 ####[facility] LABCLIA [id number] [place] [address] Lymphocytes (Bld) [#/Vol] 0.64 10*3/uL Low 1.00-4.00 [facility] Comment on above: Order Comment: Specimen Type: BLOOD SPEC IMENOrdering Facility: [facility] Address: [address] [place] [address] Performed By: #### 5 7021-8 ####[facility] LABCLIA [id number] [place] [address] Lymphocytes/100 WBC (Bld) 7.9 % Normal [facility] Comment on above: Order Comment: Specimen Type: BLOOD SPEC IMENOrdering Facility: [facility] Address: [address] [place] [address] Performed By: #### 5 7021-8 ####[facility] LABCLIA [id number] [place] [address] MCH (RBC) [Entitic mass] 30.6 pg Normal 26.0-34.0 [facility] Comment on above: Order Comment: Specimen Type: BLOOD SPEC IMENOrdering Facility: [facility] Address: [address] [place] [address] Performed By: #### 5 7021-8 ####[facility] LABIA [id number] [place] [address] MCHC (RBC) [Mass/Vol] 33.7 g/dL Normal 30.5-36.0 [facility] Comment on above: Order Comment: Specimen Type: BLOOD SPEC IMENOrdering Facility: [facility] Address: [address] [place] [address] Performed By: #### 5 7021-8 ####[facility] LABCLIA [id number] [place] [address] MCV (RBC) [Entitic vol] 90.8 fL Normal 80.0-100.0 [facility] Comment on above: Order Comment: Specimen Type: BLOOD SPEC IMENOrdering Facility: [facility] Address: [address] [place] [address] Performed By: #### 5 7021-8 ####[facility] LABIA [id number] [place] [address] Monocytes (Bld) [#/Vol] 0.50 10*3/uL Normal <0.87 [facility] Comment on above: Order Comment: Specimen Type: BLOOD SPEC IMENOrdering Facility: [facility] Address: [address] [place] [address] Performed By: #### 5 7021-8 ####[facility] LABCLIA [id number] [place] [address] Monocytes/100 WBC (Bld) 6.2 % Normal [facility] Comment on above: Order Comment: Specimen Type: BLOOD SPEC IMENOrdering Facility: [facility] Address: [address] [place] [address] Performed By: #### 5 7021-8 ####[facility] LABCLIA [id number] [place] [address] Neutrophils (Bld) [#/Vol] 6.74 10*3/uL Normal 1.45-7.50 [facility] Comment on above: Order Comment: Specimen Type: BLOOD SPEC IMENOrdering Facility: [facility] Address: [address] [place] [address] Performed By: #### 5 7021-8 ####[facility] LABCLIA [id number] [place] [address] Neutrophils/100 WBC (Bld) 83.0 % Normal [facility] Comment on above: Order Comment: Specimen Type: BLOOD SPEC IMENOrdering Facility: [facility] Address: [address] [place] [address] Performed By: #### 5 7021-8 ####[facility] LABCLIA [id number] [place] [address] Nucleated RBC (Bld) [#/Vol] 10*3/uL Normal <0.01 [facility] Comment on above: Order Comment: Specimen Type: BLOOD SPEC IMENOrdering Facility: [facility] Address: [address] [place] [address] Performed By: #### 5 7021-8 ####[facility] LABCLIA [id number] [place] [address] Nucleated RBC/100 WBC (Bld) [Ratio] 0.0 /100 WBC Normal [facility] Comment on above: Order Comment: Specimen Type: BLOOD SPEC IMENOrdering Facility: [facility] Address: [address] [place] [address] Performed By: #### 5 7021-8 ####[facility] LABCLIA [id number] [place] [address] Platelet mean volume (Bld) [Entitic vol] 10.2 fL Normal 9.0-12.7 [facility] Comment on above: Order Comment: Specimen Type: BLOOD SPEC IMENOrdering Facility: [facility] Address: [address] [place] [address] Performed By: #### 5 7021-8 ####[facility] LABCLIA [id number] [place] [address] Platelets (Bld) [#/Vol] 191 10*3/uL Normal 150-400 [facility] Comment on above: Order Comment: Specimen Type: BLOOD SPEC IMENOrdering Facility: [facility] Address: [address] [place] [address] Performed By: #### 5 7021-8 ####[facility] LABIA [id number] [place] [address] RBC (Bld) [#/Vol] 4.47 10*6/uL Normal 4.20-6.00 [facility] Comment on above: Order Comment: Specimen Type: BLOOD SPEC IMENOrdering Facility: [facility] Address: [address] [place] [address] Performed By: #### 5 7021-8 ####[facility] LABIA [id number] [place] [address] WBC (Bld) [#/Vol] 8.11 10*3/uL Normal 3.70-11.00 [facility] Comment on above: Order Comment: Specimen Type: BLOOD SPEC IMENOrdering Facility: [facility] Address: [address] [place] [address] Performed By: #### 5 7021-8 ####[facility] LABIA [id number] [place] [address] CNOVon 11-16-2023 CNOV Office Visit (RADTSA ) ADOLPH JOHNS ([id number]) 1945 M Date Time Provider Department 11/16/23 [...] DIAGNOSIS: Prostate adenocarcinoma, initial PSA 7.5, biopsy [place] score 4 + 3 = 7 (grade [...] by: David Kumari MD cc: Shahriar Stephenson [address] [place] [phone] No referring provider defined for this encounter. Allergies As of Date: 11/16/2023 Noted Allergy Reaction PENICILLINS 10/22/2019 2 - Rash 7 - Swelling TERAMYCIN (OXYTETRACYCLINE) 10/22/2019 16 - Unknown Date Reviewed: 11/16/2023 Reviewed by: Bettina Sargent MA - Fully Assessed Reason for Visit: Prostate Cancer [590] Primary Visit Diagnosis:Malignant neoplasm of prostate (HCC) [C61] Order(s):PROSTATE-SPE CIFIC ANTIGEN DIAGNOSTIC [SQPSA] Order #: [id number] FUTURE Prescriptions as of 11/24/2023 - abiraterone [...] Of Date 11/16/2023 Noted Resolved Secondary hyperparathyroidism ([facility]) [N25.81] 01/16/2023 Platelets decreased ([facility]) [D69.6] 01/16/2023 Visit Notes: >> Peggy Lakhani RN [facility] Nov 16, 2023 2:14 PM Status: Signed AUA 6 Peggy Lakhani RN Disposition: Return in about 6 months (around 05/16/2024). Follow-up and Disposition History for Encounter Date Provider Department Center 11/16/2023 [id number] KUMARI [facility] Latoya Metzy Encounter Status:Closed by David KUMARI on 11/24/23 [facility] CNOVSPon 11-16-2023 CNOVSP Visit (SP) Office ([facility]) ADOLPH JOHNS ([id number]) 1945 M Date Time Provider Department 11/16/23 [...] with urination. He plans to travel to [place] next week where he plans to spend [...] or petechiae. 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 Normal [facility] IMMUNOFIXATION SCREEN, SERUM on 11-16-2023 INTERPRETATION (MPA) Atypical restricted bands are present in the IgG and lambda regions. Consistent with IgG lambda monoclonal gammopathy. Normal [facility] Comment on above: Order Comment: Specimen Type: BLOOD SPEC IMENOrdering Facility: [facility] Address: [address] [place] [address] Performed By: #### I FESC ####[facility] LABCLIA [id number] [place] [address] [place] MPA RESULT M protein is present. Abnormal No M p rotein is identified. [facility] Comment on above: Order Comment: Specimen Type: BLOOD SPEC IMENOrdering Facility: [facility] Address: [address] [place] [address] Performed By: #### I FESC ####[facility] LABCLIA [id number] [place] [address] [place] STAFF REVIEW (MPA) Reviewed by Therese Junior MD Normal [facility] Comment on above: Order Comment: Specimen Type: BLOOD SPEC IMENOrdering Facility: [facility] Address: [address] [place] [address] Performed By: #### I FESC ####[facility] LABCLIA [id number] [place] [address] [place] IMMUNOGLOBULINS,IGG,IGA,IGMo n 11-16-2023 IgA [Mass/Vol] 55 mg/dL Low 70-400 [facility] Comment on above: Order Comment: Specimen Type: BLOOD SPEC IMENOrdering Facility: [facility] Address: [address] [place] [address] Performed By: #### S ERIMM ####[facility] LABCLIA [id number] [place] [address] [place] IgG [Mass/Vol] 1242 mg/dL Normal 700-1600 [facility] Comment on above: Order Comment: Specimen Type: BLOOD SPEC IMENOrdering Facility: [facility] Address: [address] [place] [address] Performed By: #### S ERIMM ####[facility] LABCLIA [id number] [place] [address] [place] IgM [Mass/Vol] 72 mg/dL Normal 40-230 [facility] Comment on above: Order Comment: Specimen Type: BLOOD SPEC IMENOrdering Facility: [facility] Address: [address] [place] [address] Performed By: #### S ERIMM ####[facility] LABCLIA [id number] [place] [address] [place] KAPPA/LIM,FREE,SERon 2023 Immunoglobulin light chains.kappa.zaida e (S) [Mass/Vol] 25.0 mg/L High 3.3-19.4 [facility] Comment on above: Order Comment: Specimen Type: BLOOD SPEC IMENOrdering Facility: [facility] Address: [address] [place] [address] Result Comment: Rare ly, increased serum free light chains levels may not be detected or accurately quantified due to prozone phenomenon or in high viscosity samples using this immunoturbidimetric assay. Correlation with other laboratory results and clinical findings is recommended. The [place] Free Light Chain was performed using the Binding Site Optilite immunoturbidimetric method. Result obtained with different assay methods or kits cannot be used interchangeably. Performed By: #### K LFRS ####[facility] LABIA [id number] [place] [address] [place] Immunoglobulin light chains.kappa/Imm unoglobulin light chains.lambda (S) [Mass ratio] 1.45 Normal 0.26-1.65 [facility] Comment on above: Order Comment: Specimen Type: BLOOD SPEC IMENOrdering Facility: [facility] Address: [address] [place] [address] Performed By: #### K LFRS ####[facility] LABIA [id number] [place] [address] [place] Immunoglobulin light chains.lambda.fr ee [Mass/Vol] 17.2 mg/L Normal 5.7-26.3 [facility] Comment on above: Order Comment: Specimen Type: BLOOD SPEC IMENOrdering Facility: [facility] Address: [address] [place] [address] Result Comment: Rare ly, increased serum free [...] used interchangeably. Performed By: #### K LFRS ####[facility] LABIA [id number] [place] [address] [place] PROTEIN ELECTROPHORESIS SERU M WITH FAUSTINA (P)on 11-16-2023 Albumin [Mass/Vol] 4.23 g/dL Normal 3.43-5.41 [facility] Comment on above: Order Comment: Specimen Type: BLOOD SPEC IMENOrdering Facility: [facility] Address: [address] [place] [address] Performed By: #### L [id number] ####[facility] LABIA [id number] [place] [address] [place] Alpha 1 globulin Elph [Mass/Vol] 0.32 g/dL Normal 0.18-0.43 [facility] Comment on above: Order Comment: Specimen Type: BLOOD SPEC IMENOrdering Facility: [facility] Address: [address] [place] [address] Performed By: #### L [id number] ####[facility] LABIA [id number] [place] [address] [place] Alpha 2 globulin Elph [Mass/Vol] 0.80 g/dL Normal 0.42-0.98 [facility] Comment on above: Order Comment: Specimen Type: BLOOD SPEC IMENOrdering Facility: [facility] Address: [address] [place] [address] Performed By: #### L [id number] ####[facility] LABIA [id number] [place] [address] [place] Beta globulin Elph [Mass/Vol] 0.77 g/dL Normal 0.61-1.17 [facility] Comment on above: Order Comment: Specimen Type: BLOOD SPEC IMENOrdering Facility: [facility] Address: [address] [place] [address] Performed By: #### L [id number] ####[facility] LABIA [id number] [place] [address] [place] COMMENT (SERUM PROT ELECTRO) Monoclonal Protein analysis (immunofixation) is not indicated. Normal [facility] Comment on above: Order Comment: Specimen Type: BLOOD SPEC IMENOrdering Facility: [facility] Address: [address] [place] [address] Performed By: #### L [id number] ####[facility] LABIA [id number] [place] [address] [place] Gamma globulin Elph [Mass/Vol] 1.18 g/dL Normal 0.53-1.51 [facility] Comment on above: Order Comment: Specimen Type: BLOOD SPEC IMENOrdering Facility: [facility] Address: [address] [place] [address] Performed By: #### L [id number] ####[facility] LABIA [id number] [place] [address] [place] INTERPRETATION COMMENT FOR PROTEIN ELECTROPHORESIS See separate immunofixation report for characterization of monoclonal gammopathy. Normal [facility] Comment on above: Order Comment: Specimen Type: BLOOD SPEC IMENOrdering Facility: [facility] Address: [address] [place] [address] Performed By: #### L [id number] ####[facility] [id number] [place] [address] [place] M-PROTEIN LOCATION Gamma Fraction 1 Normal [facility] Comment on above: Order Comment: Specimen Type: BLOOD SPEC IMENOrdering Facility: [facility] Address: [address] [place] [address] Performed By: #### L [id number] ####[facility] [id number] [place] [address] [place] Protein Fractions [Interp] An M protein is identified on protein electrophoresis. Abnormal No definitive M protein is identified on protein electrophoresis. [facility] Comment on above: Order Comment: Specimen Type: BLOOD SPEC IMENOrdering Facility: [facility] Address: [address] [place] [address] Performed By: #### L [id number] ####[facility] LABIA [id number] [place] [address] [place] Protein.monoclon al Elph [Mass/Vol] 0.73 g/dL High <=0.00 [facility] Comment on above: Order Comment: Specimen Type: BLOOD SPEC IMENOrdering Facility: [facility] Address: [address] [place] [address] Performed By: #### L [id number] ####[facility] LABIA [id number] [place] [address] [place] SPE STAFF REVIEW Reviewed by Therese Junior MD [facility] Comment on above: Order Comment: Specimen Type: BLOOD SPEC IMENOrdering Facility: [facility] Address: [address] [place] [address] Performed By: #### L [id number] ####[facility] LABCLIA [id number] [place] [id number] [facility] [place] Prot SerPl-mCncon 11-16-2023 Protein [Mass/Vol] 7.3 g/dL Normal 6.3-8.0 [facility] Comment on above: Order Comment: Specimen Type: BLOOD SPEC IMENOrdering Facility: [facility] Address: [address] [place] [address] Performed By: #### 2 885-2 ####[facility] LABCLIA [id number] [address] [place] Lipid 1996 panelon Cholesterol [Mass/Vol] 167 mg/dL Normal <200 [facility] Comment on above: Order Comment: Specimen Type: BLOOD SPEC IMENOrdering Facility: External Submitter Address: , , Result Comment: <200 mg/dL, Desirable 200-239 mg/dL, Borderline high >239 mg/dL, High Performed By: #### 2 4331-1 ####[facility] LABCLIA [id number] [address] LABCLIA [id number] [place] [id number] Cholesterol in HDL [Mass/Vol] 37 mg/dL Low >39 [facility] Comment on above: Order Comment: Specimen Type: BLOOD SPEC IMENOrdering Facility: External Submitter Address: , , Result Comment: 40-5 9 mg/dL, Acceptable >59 mg/dL, High: Negative risk factor for coronary heart disease <40 mg/dL, Low: Positive risk factor for coronary heart disease Performed By: #### 2 4331-1 ####[facility] LABCLIA [id number] [address] [address] [facility] LABCLIA [id number] [place] [address] Cholesterol in LDL [Mass/Vol] 59 mg/dL Normal <100 [facility] Comment on above: Order Comment: Specimen Type: BLOOD SPEC IMENOrdering Facility: External Submitter Address: , , Result Comment: <100 mg/dL, Optimal 100-129 mg/dL, Near optimal/above optimal 130-159 mg/dL, Borderline high 160-189 mg/dL, High >189 mg/dL, Very high Secondary prevention optimal LDL Cholesterol levels are recommended to be < 70 mg/dL Performed By: #### 2 4331-1 ####[facility] LABCLIA [id number] [address] LABCLIA [id number] [place] [address] Cholesterol in LDL/Cholesterol in HDL [Mass ratio] 1.59 {ratio} Normal <2.54 [facility] Comment on above: Order Comment: Specimen Type: BLOOD SPEC IMENOrdering Facility: External Submitter Address: , , Result Comment: Refshabnam rock: 1. National Cholesterol Education Program ATP III Guideline At-A-Glance Quick Desk Reference: National Heart, Lung, and Blood [place]. National Institutes of Health. 2001: NIH Publication No. 01-3305. 2. An International Atherosclerosis Society position paper: global recommendations for the management of dyslipidemia: executive summary, Atherosclerosis. 2014: 232(2):410-413. Performed By: #### 2 4331-1 ####[facility] LABIA [id number] [place] [id number] [facility] LABCLIA [id number] [place] [address] Cholesterol in VLDL [Mass/Vol] 71 mg/dL High <30 [facility] Comment on above: Order Comment: Specimen Type: BLOOD SPEC IMENOrdering Facility: External Submitter Address: , , Performed By: #### 2 4331-1 ####[facility] LABCLIA [id number] [address] LABCLIA [id number] [place] [address] Cholesterol non HDL [Mass/Vol] 130 mg/dL High <130 [facility] Comment on above: Order Comment: Specimen Type: BLOOD SPEC IMENOrdering Facility: External Submitter Address: , , Result Comment: <130 mg/dL, Optimal 130-159 mg/dL, Near optimal/above optimal 160-189 mg/dL, Borderline high 190-219 mg/dL, High >219 mg/dL, Very high Secondary prevention optimal non HDL Cholesterol levels are recommended to be <100 mg/dL Performed By: #### 2 4331-1 ####[facility] LABCLIA [id number] [address] LABCLIA [id number] [place] [address] Cholesterol.tota l/Cholesterol in HDL [Mass ratio] 4.51 {ratio} Normal <5.10 [facility] Comment on above: Order Comment: Specimen Type: BLOOD SPEC IMENOrdering Facility: External Submitter Address: , , Performed By: #### 2 4331-1 ####[facility] LABCLIA [id number] [address] LABCLIA [id number] [place] [id number] FASTING TIME 2 hrs Normal [facility] Comment on above: Order Comment: Specimen Type: BLOOD SPEC IMENOrdering Facility: External Submitter Address: , , Result Comment: nonf asting Performed By: #### 2 4331-1 ####[facility] LABCLIA [id number] [place] [id number] [facility] LABCLIA [id number] [place] [address] Triglyceride [Mass/Vol] 357 mg/dL High <150 [facility] Comment on above: Order Comment: Specimen Type: BLOOD SPEC IMENOrdering Facility: External Submitter Address: , , Result Comment: <150 mg/dL, Normal 150-199 mg/dL, Borderline high 200-499 mg/dL, High >499 mg/dL, Very high Performed By: #### 2 4331-1 ####[facility] LABCLIA [id number] [address] LABCLIA [id number] [place] [address] [facility] Prostate specific Ag [Mass/Vol] ng/mL Normal <2.60 [facility] Comment on above: Order Comment: Specimen Type: BLOOD SPEC IMENOrdering Facility: [facility] Address: [address] [place] [address] Result Comment: Jerem[place] mart PSA test methodology used is the Electrochemiluminescence Immunoassay by [employer]. Total PSA values by differing methodologies cannot be interchanged. Performed By: #### 2 857-1 ####[facility] LABCLIA [id number] [address] Ambulatory Visit Summaryon 0 10-24-2023 Ambulatory Visit [...] ROSARIO, Yosef Bunch Where: [facility] [address] [place] [address] 2024 11:00 AM EDT With: Where: [facility] [address] [address]- Medications What How Much When Instructions Unchanged [...] call (more content not included)... Normal [facility] Office/Clini c Noteon 10-24-2023 [...] of clutter to prevent tripping and/or falling. [place] Advance Directives reviewed. Documents remain at home/supervisor bindery's office, encouraged to bring in for scanning [...] order and will have them drawn at [facility] per his request. No concerns with bowel/ [...] Radical retropu (more content not included)... Normal [facility] Comment on above: Result Comment: Electronically Signed [...] Appointments Monday 1:00 PM EDT With: Where: [facility] [address] [address]- Monday 11:00 AM EDT With: Yosef GRIMES MD Where: [facility] [address] [place] [address]- Medications What How Much When Instructions Unchanged [...] for choosing us for your care. Normal [facility] Office/Clini c Noteon 09-27-2023 [...] for 90 day(s), 90 tab(s), Refill(s) 3, [facility], 185, cm, 09/27/23 11:20:00 EDT, Height/Length Dosing, 116, kg, 09/27/23 11:20:00 EDT, Weight Dosing hydrochlorothiazide-l isinopril, 1 tab(s), Oral, Daily, 30 tab(s), Refill(s) 0, [facility], 190, cm, 05/22/23 11:33:00 EDT, [...] Cancer - unknown origin: Father. Hypertension: Mother. [facility] Comment on above: Result Comment: Electronically Signed By : Shilpa Naylor\.arun\Date and Time Signed: 09/27/23 12:26 EDT Consultation Noteon 05-29-19 Consultation Note [id number] .00TIFF [facility] Consultation Noteon 05-26-19 Consultation Note [id number] .00TIFF [facility] Ambulatory Visit Summaryon 0 05-22-2023 Ambulatory Visit Summary JOHNSADOLPH :1945 Visit Date:05/22/2023 Ambulatory Visit Instructions Your Diagnosis Prostate cancer Bladder tumor Your Care Team Attending Physician - CORNELIO ROSARIO, Yosef Bunch Primary Care Physician - Sachin ROSARIO, Shahriar Holt This Is Your Medications List Contact prescribing [...] Appointments Monday 1:00 PM EDT With: Where: [facility] [place] [address] [place] [address] [place] [address]- \.br\ You Need to Schedule the Following Appointments\.br\ Follow Up with CORNELIO ROSARIO, Yosef Bunch, URL When: \.br\ Comments:\.br\ 6 mos w/ PSA (gets level from [facility])\.br\ Where:\.br\ [facility] [address]\ [place] [address]-\.br\ [phone]\.br\ Medications\.br\ What How Much When Instructions\.br\ Unchanged [...] Where to find more information\.br\ ? \.br\ [place] [employer] Society: www.cancer.org\.br\ ? \.br\ National Cancer [place]: www.cancer.gov\.br\ Contact a health care provider if:\.br\ [...] lower half of your body.\.br\ ? \.br\ [facility] Patient Educationon 05-22-19 Patient Education Oncology Hormone Suppression Therapy for [...] cancer. Where to find more information ? [place] [employer] Cancer Society: www.cancer.org ? National Cancer [place]: www.cancer.gov Contact a health care provider if: [...] an emergenc (more content not included)... Normal [facility] Urology Office/Clinic Noteon 05-22-2023 Urology Office/Clinic Note [...] - <0.02 PSMA PET scan 10/28/22 at [facility] - neg for mets; approx 1.5cm [...] Yosef Bunch, URL [facility] [address] [place] [phone] Additional Instructions: 6 mos w/ PSA (gets [...] 5 mg Tab (more content not included)... [facility] Comment on above: Result Comment: Electronically Signed By : Yosef GRIMES MD\.br\Date and Time Signed: 05/22/23 12:03 EDT\.br\Electronically Co-Signed By: Odette Cottrell.br\Date and Time Co-Signed: 05/22/23 12:01 EDT Pre-Certification Formon Pre-Certificatio n Form [id number] .00TIFF [facility] CBC W Auto Differential pane l (Bld)on 01-05-2023 Basophils (Bld) [#/Vol] <0.11 k/uL [facility] Basophils/100 WBC (Bld) 0.3 % [facility] Differential cell count method Nom (Bld) Auto [facility] Eosinophils (Bld) [#/Vol] 0.09 10*3/uL <0.46 k/uL [facility] Eosinophils/100 WBC (Bld) 1.1 % [facility] Erythrocyte distribution width (RBC) [Ratio] 14.9 % 11.5 - 15.0 % [facility] Hematocrit (Bld) [Volume fraction] 44.5 % 39.0 - 51.0 % [facility] Hemoglobin (Bld) [Mass/Vol] 15.0 g/dL 13.0 - 17.0 g/dL [facility] Immature granulocytes (Bld) [#/Vol] 0.08 10*3/uL <0.10 k/uL [facility] Immature granulocytes/100 WBC (Bld) 1.0 % [facility] Lymphocytes (Bld) [#/Vol] 0.45 10*3/uL Low 1.00 - 4.00 k/uL [facility] Lymphocytes/100 WBC (Bld) 5.6 % [facility] MCH (RBC) [Entitic mass] 29.1 pg 26.0 - 34.0 pg [facility] MCHC (RBC) [Mass/Vol] 33.7 g/dL 30.5 - 36.0 g/dL [facility] MCV (RBC) [Entitic vol] 86.2 fL 80.0 - 100.0 fL [facility] Monocytes (Bld) [#/Vol] 0.66 10*3/uL <0.87 k/uL [facility] Monocytes/100 WBC (Bld) 8.3 % [facility] Neutrophils (Bld) [#/Vol] 6.67 10*3/uL 1.45 - 7.50 k/uL [facility] Neutrophils/100 WBC (Bld) 83.7 % [facility] Nucleated RBC (Bld) [#/Vol] <0.01 k/uL [facility] Nucleated RBC/100 WBC (Bld) [Ratio] 0.0 /100 WBC [facility] Platelet mean volume (Bld) [Entitic vol] 10.1 fL 9.0 - 12.7 fL [facility] Platelets (Bld) [#/Vol] 100 10*3/uL Low 150 - 400 k/uL [facility] RBC (Bld) [#/Vol] 5.16 10*6/uL 4.20 - 6.00 m/uL [facility] WBC (Bld) [#/Vol] 7.97 10*3/uL 3.70 - 11.00 k/uL [facility] Comprehensive metabolic 2000 panelon 11-30-2023 Albumin [Mass/Vol] 4.8 g/dL 3.9 - 4.9 g/dL [facility] ALP [Catalytic activity/Vol] 50 U/L 38 - 113 U/L [facility] ALT [Catalytic activity/Vol] 9 U/L Low 10 - 54 U/L [facility] Anion gap [Moles/Vol] 12 mmol/L 9 - 18 mmol/L [facility] AST [Catalytic activity/Vol] 14 U/L 14 - 40 U/L [facility] Bilirubin [Mass/Vol] 0.8 mg/dL 0.2 - 1.3 mg/dL [facility] Calcium [Mass/Vol] 10.5 mg/dL High 8.5 - 10.2 mg/dL [facility] Chloride [Moles/Vol] 103 mmol/L 97 - 105 mmol/L [facility] CO2 [Moles/Vol] 24 mmol/L 22 - 30 mmol/L [facility] Creatinine [Mass/Vol] 1.33 mg/dL High 0.73 - 1.22 mg/dL [facility] Estimated Glomerular Filtration Rate 55 mL/min/1.73m Low >=60 mL/min/1.73m [facility] Glucose [Mass/Vol] 112 mg/dL High 74 - 99 mg/dL [facility] Potassium [Moles/Vol] 3.1 mmol/L Low 3.7 - 5.1 mmol/L [facility] Protein [Mass/Vol] 7.8 g/dL 6.3 - 8.0 g/dL [facility] Sodium [Moles/Vol] 139 mmol/L 136 - 144 mmol/L [facility] Urea nitrogen [Mass/Vol] 28 mg/dL High 9 - 24 mg/dL [facility] CBC W Auto Differential pane l (Bld)on 12-22-2022 Basophils (Bld) [#/Vol] <0.11 k/uL [facility] Basophils/100 WBC (Bld) 0.2 % [facility] Differential cell count method Nom (Bld) Auto [facility] Eosinophils (Bld) [#/Vol] 0.09 10*3/uL <0.46 k/uL [facility] Eosinophils/100 WBC (Bld) 1.0 % [facility] Erythrocyte distribution width (RBC) [Ratio] 14.7 % 11.5 - 15.0 % [facility] Hematocrit (Bld) [Volume fraction] 45.5 % 39.0 - 51.0 % [facility] Hemoglobin (Bld) [Mass/Vol] 15.2 g/dL 13.0 - 17.0 g/dL [facility] Immature granulocytes (Bld) [#/Vol] 0.10 10*3/uL High <0.10 k/uL [facility] Immature granulocytes/100 WBC (Bld) 1.1 % [facility] Lymphocytes (Bld) [#/Vol] 1.02 10*3/uL 1.00 - 4.00 k/uL [facility] Lymphocytes/100 WBC (Bld) 11.0 % [facility] MCH (RBC) [Entitic mass] 29.0 pg 26.0 - 34.0 pg [facility] MCHC (RBC) [Mass/Vol] 33.4 g/dL 30.5 - 36.0 g/dL [facility] MCV (RBC) [Entitic vol] 86.7 fL 80.0 - 100.0 fL [facility] Monocytes (Bld) [#/Vol] 0.74 10*3/uL <0.87 k/uL [facility] Monocytes/100 WBC (Bld) 8.0 % [facility] Neutrophils (Bld) [#/Vol] 7.31 10*3/uL 1.45 - 7.50 k/uL [facility] [facility] Neutrophils/100 WBC (Bld) 78.7 % [facility] Nucleated RBC (Bld) [#/Vol] <0.01 k/uL [facility] Nucleated RBC/100 WBC (Bld) [Ratio] 0.0 /100 WBC [facility] Platelet mean volume (Bld) [Entitic vol] 9.8 fL 9.0 - 12.7 fL [facility] Platelets (Bld) [#/Vol] 166 10*3/uL 150 - 400 k/uL [facility] RBC (Bld) [#/Vol] 5.25 10*6/uL 4.20 - 6.00 m/uL [facility] WBC (Bld) [#/Vol] 9.28 10*3/uL 3.70 - 11.00 k/uL [facility] MRI PROSTATE WO/W IVCONon [facility] Urinalysis - AUTOMATEDon Appearance (U) CLEAR [employer] Other Bilirubin Ql (U) Negative [employer] Other Color (U) YELLOW [facility] Other Glucose Ql (U) Negative [employer] Other Hemoglobin Ql (U) TRACE INTACT [employer] Other Ketones Ql (U) Negative [employer] Other Leukocyte esterase Test strip Ql (U) Negative [employer] Other Nitrite Ql (U) Negative [employer] Other pH (U) 5.5 [pH] [employer] Other Protein Ql (U) 100 [employer] Other Specific gravity (U) [Rel density] 1.025 [employer] Other Urobilinogen (U) [Mass/Vol] 0.2 mg/dL [facility] Other Urinalysis - AUTOMATED [facility] Other Urine Cultureon 10-09-2022 Bacteria identified Cx Nom (U) [facility] Other PTH INTACTon 10-14-2021 PTH, Intact 25 pg/mL Normal 15-65 [facility] Comment on above: Performed By: #### PTHINT #### [facility] [address] [address] [address] Brenda Kline VIT D 25-OH LABCORPon 2021 Vitamin D, 25-Hydroxy 36.7 ng/mL Normal 30.0-100.0 [facility] Comment on above: Result Comment: Vitamin D deficiency has been defined by the [place] of [employer] and an Endocrine Society practice guideline as a level of serum 25-OH vitamin D less than 20 ng/mL (1,2). The Endocrine Society went on to further define vitamin D insufficiency as a level between 21 and 29 ng/mL (2). 1. IOM ([place] of Medicine). 2010. Dietary reference intakes for calcium and D. [place]: The National Academies Press. 2. Daniel ALEMAN, Tiarra CUADRA, Dgao PERRY, et al. Evaluation, treatment, and prevention of vitamin D deficiency: an Endocrine Society clinical practice guideline. JCEM. 2010; 96(7):1911-30. Performed By: #### V ITADLC ####[facility] [id number] [address]Dr. Brenda Kline HEMOGRAM AND PLATELon 2021 Hematocrit (Bld) [Volume fraction] 50.0 % Normal 42.0-54.0 [facility] Comment on above: Performed By: #### HH #### [facility] [address] [address] [address] Brenda Kline Hemoglobin (Bld) [Mass/Vol] 16.3 g/dL Normal 14.0-18.0 [facility] Comment on above: Performed By: #### HH #### [facility] [address] [address] [address] Brenda Kline MCH (RBC) [Entitic mass] 29.1 pg Normal 25.9-34.0 [facility] Comment on above: Performed By: #### HH #### [facility] [address] [address] [address] Brenda Kline MCHC (RBC) [Mass/Vol] 32.6 g/dL Normal 29.9-35.2 [facility] Comment on above: Performed By: #### HH #### [facility] [address] [address] [address] Brenda Kline MCV (RBC) [Entitic vol] 89.3 fL Normal 80.0-94.0 [facility] Comment on above: Performed By: #### HH #### [facility] [address] [address] [address] Brenda Kline PLT 197 103/ul Normal 150-450 [facility] Comment on above: Performed By: #### HH #### [facility] [address] [address] [address] Brenda Kline RBC 5.60 106/ul Normal 4.70-6.10 [facility] Comment on above: Performed By: #### HH #### [facility] [address] [address] [address] Brenda Kline WBC 7.9 103/ul Normal 4.0-11.0 [facility] Comment on above: Performed By: #### HH #### [facility] [address] [address] [address] Brenda Kline MAGNESIUMon 10-13-2021 Magnesium [Mass/Vol] 2.1 mg/dL Normal 1.8-2.4 [facility] Comment on above: Performed By: #### RENAL, MG, URIC ####[facility] [id number] [address]Dr. Brenda Kline RENAL FUNCTION PANELon 10-13 Albumin [Mass/Vol] 4.1 g/dL Normal 3.4-5.0 [facility] Comment on above: Performed By: #### RENAL, MG, URIC #### [facility] [address] [address] [address] Brenda Kline Calcium [Mass/Vol] 9.6 mg/dL Normal 8.5-10.1 [facility] Comment on above: Performed By: #### RENAL, MG, URIC #### [facility] [address] [address] [address] Brenda Kline Chloride [Moles/Vol] 103 mmol/L Normal 98-107 [facility] Comment on above: Performed By: #### RENAL, MG, URIC #### [facility] [address] [address] [address] Brenda Kline CO2 [Moles/Vol] 27.2 mmol/L Normal 21.0-32.0 [facility] Comment on above: Performed By: #### RENAL, MG, URIC #### [facility] [address] [address] [address] Brenda Kline Creatinine [Mass/Vol] 1.68 mg/dL Critically high 0.70-1.30 [facility] Comment on above: Performed By: #### RENAL, MG, URIC #### [facility] [address] [place] [address] Dr. Brenda Kline EGFR-AF CITIZEN [place] 49 mL/min/1.73m2 Critically low >=60 [facility] Comment on above: Performed By: #### RENAL, MG, URIC #### [facility] [address] [place] [address] Dr. Brenda Kline EGFR-NON AF CITIZEN OF [place] 40 mL/min/1.73m2 Critically low >=60 [facility] Comment on above: Performed By: #### RENAL, MG, URIC #### [facility] [address] [place] [address] Dr. Brenda Kline Glucose [Mass/Vol] 125 mg/dL Critically high 74-106 [facility] Comment on above: Performed By: #### RENAL, MG, URIC #### [facility] [address] [place] [address] Dr. Brenda Kline Phosphate [Mass/Vol] 3.5 mg/dL Normal 2.6-4.7 [facility] Comment on above: Performed By: #### RENAL, MG, URIC #### [facility] [address] [place] [address] Dr. Brenda Kline Potassium [Moles/Vol] 4.1 mmol/L Normal 3.5-5.1 [facility] Comment on above: Performed By: #### RENAL, MG, URIC #### [facility] [address] [place] [address] Dr. Brenda Kline Sodium [Moles/Vol] 139 mmol/L Normal 136-145 [facility] Comment on above: Performed By: #### RENAL, MG, URIC #### [facility] [address] [place] [address] Dr. Brenda Kline Urea nitrogen [Mass/Vol] 25.0 mg/dL Critically high 7.0-18.0 [facility] Comment on above: Performed By: #### RENAL, MG, URIC #### [facility] [address] [place] [address] Dr. Brenda Kline UA RANDOM W/MICROSCOPICon BACTERIA NONE SEEN Normal NONE SEEN [facility] Comment on above: Performed By: #### UAMIC #### [facility] [address] [place] [address] Dr. Brneda Kline Bilirubin Ql (U) Negative Normal NEGATIVE [facility] Comment on above: Performed By: #### UAMIC #### [facility] [address] [place] [address] Dr. Brenda Kline CAST SEEN Abnormal NONE SEEN [facility] Comment on above: Performed By: #### UAMIC #### [facility] [address] [place] [address] Dr. Brenda Kline Clarity (U) CLEAR Normal CLEAR [facility] Comment on above: Performed By: #### UAMIC #### [facility] [address] [place] [address] Dr. Brenda Kline Color (U) YELLOW Normal YELLOW [facility] Comment on above: Performed By: #### UAMIC #### [facility] [address] [place] [address] Dr. Brenda Kline Crystals LM Nom (Urine sed) NONE SEEN Normal NONE SEEN [facility] Comment on above: Performed By: #### UAMIC #### [facility] [address] [place] [address] Dr. Brenda Kline Epithelial cells LM Ql (Urine sed) RARE Normal NONE SEEN /RARE [facility] Comment on above: Performed By: #### UAMIC #### [facility] [address] [place] [address] Dr. Brenda Kline Glucose Ql (U) Negative Normal NEGATIVE [facility] Comment on above: Performed By: #### UAMIC #### [facility] [address] [place] [address] Dr. Brenda Kline Hemoglobin Ql (U) Negative Normal NEGATIVE [facility] Comment on above: Performed By: #### UAMIC #### [facility] [address] [place] [address] Dr. Brenda Kline HYALINE CAST RARE Normal [facility] Comment on above: Performed By: #### UAMIC #### [facility] [address] [place] [address] Dr. Brenda Kline Ketones Ql (U) Negative Normal NEGATIVE [facility] Comment on above: Performed By: #### UAMIC #### [facility] [address] [place] [address] Dr. Brenda Kline LEUKOCYTES Negative Normal NEGATIVE [facility] Comment on above: Performed By: #### UAMIC #### [facility] [address] [place] [address] Dr. Brenda Kline MUCOUS TRACE Abnormal NONE SEEN [facility] Comment on above: Performed By: #### UAMIC #### [facility] [address] [place] [address] Dr. Brenda Kline Nitrite Ql (U) Negative Normal NEGATIVE [facility] Comment on above: Performed By: #### UAMIC #### [facility] [address] [place] [address] Dr. Brenda Kline pH (U) 5.5 [pH] Normal 5-9 [facility] Comment on above: Performed By: #### UAMIC #### [facility] [address] [place] [address] Dr. Brenda Kline RBC 0-2 Normal 0-2 [facility] Comment on above: Performed By: #### UAMIC #### [facility] [address] [place] [address] Dr. Brenda Kline SPEC GRAVITY 1.025 Normal 1.005-<=1.025 [facility] Comment on above: Performed By: #### UAMIC #### [facility] [address] [place] [address] Dr. Brenda Kline UA PROTEIN Negative Normal NEGATIVE/ TRACE [facility] Comment on above: Performed By: #### UAMIC #### [facility] [address] [place] [address] Dr. Brenda Kline Urobilinogen Qn (U) 0.2 {Cayden'U}/dL Normal 0.2 - 1.0 [facility] Comment on above: Performed By: #### UAMIC #### [facility] [address] [place] [address] Dr. Brenda Kline WBC 0-2 Abnormal NONE SEEN [facility] Comment on above: Performed By: #### UAMIC #### [facility] [address] [place] [address] Dr. Brenda Kline URIC ACID SERUMon 10-13-2021 Urate [Mass/Vol] 7.2 mg/dL Normal 3.5-7.2 [facility] Comment on above: Performed By: #### RENAL, MG, URIC #### [facility] [address] [place] [address] Dr. Brenda Kline URINE T PROTEIN CREAT RATIOo n 10-13-2021 Protein (U) [Mass/Vol] 29.0 mg/dL Critically high <=12.0 [facility] Comment on above: Performed By: #### URTPCR #### [facility] [address] [place] [address] Dr. Brenda Kline UR PROT CREAT RAT 0.14 Normal [facility] Comment on above: Performed By: #### URTPCR #### [facility] [address] [place] [address] Dr. Brenda Kline URINE CREAT 202.37 mg/dL Normal 20.00-300.00 [facility] Comment on above: Performed By: #### URTPCR #### [facility] [address] [place] [address] Dr. Brenda Kline US FINE NEEDLE ASP EXPon US FINE NEEDLE ASP EXP Begin Addendum #1 COLLECTED DATE/TIME: 08/16/2021 07:32 EDT Final Diagnosis Report for [facility] [place] (A-B) RIGHT GROIN MASS; FINE NEEDLE [...] 2. Pathology results are pending. Normal [facility] CREATININEon 07-20-2021 Creatinine [Mass/Vol] 1.65 mg/dL Critically high 0.70-1.30 [facility] Comment on above: Performed By: #### CREA ####[facility] [id number] [address]Dr. Brenda Kline EGFR-AF [place]IZ[place] 50 mL/min/1.73m2 Critically low >=60 [facility] Comment on above: Performed By: #### CREA ####[facility] [id number] [id number]. Brenda Kline EGFR-NON AF CITIZEN [place] 41 mL/min/1.73m2 Critically low >=60 [facility] Comment on above: Performed By: #### CREA ####[facility] [id number]. Brenda Kline CT PELVIS W CONon 07-20-2021 [...] MIA PERSON Date: 2021-07-20 16:34 Normal [facility] US SINGLE QUAD RT LOWERon US [...] MIA PERSON Date: 2021-07-09 17:23 Normal [facility] COVID Quick Testingon 2020 Result Negative [facility] Other Vital Signs Date Time Vital Sign Value Performing Clinician Facility 06-04-2024 14:53-0400 Body mass index (BMI) [Ratio] 31.84 kg/m2 YOAN Kumari MD Work Phone: [facility] 06-04-2024 14:53-0400 Body temperature 97.2 [degF] YOAN Kumari MD Work Phone: [facility] 06-04-2024 14:53-0400 Body weight 118.6 kg YOAN Kumari MD Work Phone: [facility] 06-04-2024 14:53-0400 Heart rate 75 /min YOAN Kumari MD Work Phone: [facility] 06-04-2024 14:53-0400 Respiratory rate 16 /min YOAN Kumari MD Work Phone: [facility] 06-04-2024 14:53-0400 SaO2% (BldA) [Mass fraction] 94 % NA Jasmyne ROSARIO Work Phone: [facility] 05-20-2024 13:58-0400 Body mass index (BMI) [Ratio] 31.65 kg/m2 Minoo Ejna AUTOMOTIVE QUALITY MANAGER.TEMP RECRUITER Work Phone: [facility] 05-20-2024 13:58-0400 Body temperature 97.59 [degF] Minoo Jena AUTOMOTIVE QUALITY MANAGER.TEMP RECRUITER Work Phone: [facility] 05-20-2024 13:58-0400 Body weight 117.9 kg Minoo Jena AUTOMOTIVE QUALITY MANAGER.TEMP RECRUITER Work Phone: [facility] 05-20-2024 13:58-0400 Diastolic blood pressure 72 mm[Hg] Minoo Jena AUTOMOTIVE QUALITY MANAGER.TEMP RECRUITER Work Phone: [facility] 05-20-2024 13:58-0400 Heart rate 79 /min Minoo Jena AUTOMOTIVE QUALITY MANAGER.TEMP RECRUITER Work Phone: [facility] 05-20-2024 13:58-0400 Respiratory rate 16 /min Minoo Jena AUTOMOTIVE QUALITY MANAGER.TEMP RECRUITER Work Phone: [facility] 05-20-2024 13:58-0400 SaO2% (BldA) [Mass fraction] 97 % Minoo Jena AUTOMOTIVE QUALITY MANAGER.TEMP RECRUITER Work Phone: [facility] 05-20-2024 13:58-0400 Systolic blood pressure 120 mm[Hg] Minoo Jena AUTOMOTIVE QUALITY MANAGER.TEMP RECRUITER Work Phone: [facility] 03-04-2024 09:49-0500 Diastolic blood pressure 74 mm[Hg] Yosef GRIMES [facility] 03-04-2024 09:49-0500 Heart rate 67 /min Yosef GRIMES [facility] 03-04-2024 09:49-0500 Respiratory rate 16 /min Yosef GRIMES [facility] 03-04-2024 09:49-0500 Systolic blood pressure 142 mm[Hg] Yosef GRIMES [facility] 01-23-2024 12:46-0500 Diastolic blood pressure 79 mm[Hg] Meño Bob [facility] 01-23-2024 12:46-0500 Heart rate 85 /min Meño Bob [facility] 01-23-2024 12:46-0500 Respiratory rate 16 /min Meño Bob [facility] 01-23-2024 12:46-0500 SaO2% (BldA) [Mass fraction] 95 % Meño Bob [facility] 01-23-2024 12:46-0500 Systolic blood pressure 120 mm[Hg] Meño Bob [facility] 01-10-2024 12:49-0500 Blood Pressure Location Yosef GRIMES [facility] 01-10-2024 12:49-0500 Body temperature 98.6 [degF] Yosef GRIMES [facility] 01-10-2024 12:49-0500 Diastolic blood pressure 83 mm[Hg] Yosef GRIMES [facility] 01-10-2024 12:49-0500 Heart rate 89 /min Yosef GRIMES [facility] 01-10-2024 12:49-0500 Respiratory rate 17 /min Yosef GRIMES [facility] 01-10-2024 12:49-0500 Systolic blood pressure 126 mm[Hg] Yosef GRIMES [facility] 01-08-2024 08:56-0500 Blood Pressure Location Yosef GRIMES [facility] 01-08-2024 08:56-0500 Body temperature 98.6 [degF] Yosef GRIMES [facility] 01-08-2024 08:56-0500 Diastolic blood pressure 83 mm[Hg] Yosef GRIMES [facility] 01-08-2024 08:56-0500 Heart rate 70 /min Yosef GRIMES [facility] 01-08-2024 08:56-0500 Respiratory rate 18 /min Yosef GRIMES [facility] 01-08-2024 08:56-0500 Systolic blood pressure 137 mm[Hg] Yosef GRIMES [facility] 11-24-2023 11:48-0400 Blood Pressure Location Yosef GRIMES [facility] 11-24-2023 11:48-0400 Body temperature 98.6 [degF] Yosef GRIMES [facility] 11-24-2023 11:48-0400 Diastolic blood pressure 86 mm[Hg] Yosef GRIMES [facility] 11-24-2023 11:48-0400 Heart rate 68 /min Yosef GRIMES [facility] 11-24-2023 11:48-0400 Respiratory rate 16 /min Yosef GRIMES [facility] 11-24-2023 11:48-0400 Systolic blood pressure 134 mm[Hg] Yosef GRIMES [facility] 11-16-2023 14:59-0400 Body height 193 cm Nicolas Hwang MD Work Phone: [facility] 11-16-2023 14:59-0400 Body mass index (BMI) [Ratio] 31.81 kg/m2 Nicolas Hwang MD Work Phone: [facility] 11-16-2023 14:59-0400 Body temperature 96.69 [degF] Nicolas Hwang MD Work Phone: [facility] 11-16-2023 14:59-0400 Body weight 118.5 kg Nicolas Hwang MD Work Phone: [facility] 11-16-2023 14:59-0400 Diastolic blood pressure 73 mm[Hg] Nicolas Hwang MD Work Phone: [facility] 11-16-2023 14:59-0400 Heart rate 93 /min Nicolas Hwang MD Work Phone: [facility] 11-16-2023 14:59-0400 Respiratory rate 18 /min Nicolas Hwang MD Work Phone: [facility] 11-16-2023 14:59-0400 SaO2% (BldA) [Mass fraction] 94 % Nicolas Hwang MD Work Phone: [facility] 11-16-2023 14:59-0400 Systolic blood pressure 124 mm[Hg] Nicolas Hwang MD Work Phone: [facility] 11-16-2023 14:13-0400 Body mass index (BMI) [Ratio] 31.84 kg/m2 YOAN Kumari MD Work Phone: [facility] 11-16-2023 14:13-0400 Body temperature 96.69 [degF] YOAN Kumari MD Work Phone: [facility] 11-16-2023 14:13-0400 Body weight 118.6 kg YOAN Kumari MD Work Phone: [facility] 11-16-2023 14:13-0400 Diastolic blood pressure 73 mm[Hg] YOAN Kumari MD Work Phone: [facility] 11-16-2023 14:13-0400 Heart rate 93 /min YOAN Kumari MD Work Phone: [facility] 11-16-2023 14:13-0400 Respiratory rate 18 /min YOAN Kumari MD Work Phone: [facility] 11-16-2023 14:13-0400 SaO2% (BldA) [Mass fraction] 94 % YOAN Kumari MD Work Phone: [facility] 11-16-2023 14:13-0400 Systolic blood pressure 124 mm[Hg] YOAN Kumari MD Work Phone: [facility] 05-22-2023 11:20-0400 Blood Pressure Location Yosef GRIMES [facility] 05-22-2023 11:20-0400 Body temperature 98.42 [degF] Yosef GRIMES [facility] 05-22-2023 11:20-0400 Diastolic blood pressure 85 mm[Hg] Yosef GRIMES [facility] 05-22-2023 11:20-0400 Heart rate 81 /min Yosef GRIMES [facility] 05-22-2023 11:20-0400 Respiratory rate 16 /min Yosef GRIMES [facility] 05-22-2023 11:20-0400 Systolic blood pressure 118 mm[Hg] Yosef GRIMES [facility] 05-18-2023 13:16-0400 Body temperature 97 [degF] Elio Payne AUTOMOTIVE QUALITY MANAGER.TEMP RECRUITER Work Phone: [facility] 05-18-2023 13:16-0400 Body weight 115.8 kg Elio Payne AUTOMOTIVE QUALITY MANAGER.TEMP RECRUITER Work Phone: [facility] 05-18-2023 13:16-0400 Diastolic blood pressure 74 mm[Hg] Elio Payne AUTOMOTIVE QUALITY MANAGER.TEMP RECRUITER Work Phone: [facility] 05-18-2023 13:16-0400 Heart rate 84 /min Elio Payne APRN.TEMP RECRUITER Work Phone: [facility] 05-18-2023 13:16-0400 Respiratory rate 18 /min Elio Payne APRN.TEMP RECRUITER Work Phone: [facility] 05-18-2023 13:16-0400 SaO2% (BldA) [Mass fraction] 94 % Elio Payne APRN.TEMP RECRUITER Work Phone: [facility] 05-18-2023 13:16-0400 Systolic blood pressure 144 mm[Hg] Elio Payne AUTOMOTIVE QUALITY MANAGER.TEMP RECRUITER Work Phone: [facility] 01-16-2023 12:20-0500 Body temperature 97.39 [degF] YOAN Kumari MD Work Phone: [facility] 01-16-2023 12:20-0500 Body weight 109.32 kg YOAN Kumari MD Work Phone: [facility] 01-16-2023 12:20-0500 Diastolic blood pressure 74 mm[Hg] YOAN Kumari MD Work Phone: [facility] 01-16-2023 12:20-0500 Heart rate 66 /min YOAN Kumari MD Work Phone: [facility] 01-16-2023 12:20-0500 Respiratory rate 18 /min YOAN Kumari MD Work Phone: [facility] 01-16-2023 12:20-0500 SaO2% (BldA) [Mass fraction] 96 % YOAN Kumari MD Work Phone: [facility] 01-16-2023 12:20-0500 Systolic blood pressure 114 mm[Hg] YOAN Kumari MD Work Phone: [facility] 01-05-2023 12:45-0500 Body height 193 cm Nicolas Hwang MD Work Phone: [facility] 01-05-2023 12:45-0500 Body temperature 97 [degF] Nicolas Hwang MD Work Phone: [facility] 01-05-2023 12:45-0500 Body weight 109.77 kg Nicolas Hwang MD Work Phone: [facility] 01-05-2023 12:45-0500 Diastolic blood pressure 70 mm[Hg] Nicolas Hwang MD Work Phone: [facility] 01-05-2023 12:45-0500 Heart rate 60 /min Nicolas Hwang MD Work Phone: [facility] 01-05-2023 12:45-0500 Respiratory rate 16 /min Nicolas Hwang MD Work Phone: [facility] 01-05-2023 12:45-0500 SaO2% (BldA) [Mass fraction] 94 % Nicolas Hwang MD Work Phone: [facility] 01-05-2023 12:45-0500 Systolic blood pressure 124 mm[Hg] Nicolas Hwang MD Work Phone: [facility] 01-02-2023 12:22-0500 Body temperature 97.59 [degF] YOAN Kumari MD Work Phone: [facility] 11-27-2023 12:22-0500 Body weight 110.13 kg YOAN Kumari MD Work Phone: [facility] 01-02-2023 12:22-0500 Diastolic blood pressure 75 mm[Hg] YOAN Kumari MD Work Phone: [facility] 01-02-2023 12:22-0500 Heart rate 59 /min YOAN Kumari MD Work Phone: [facility] 01-02-2023 12:22-0500 Respiratory rate 16 /min YOAN Kumari MD Work Phone: [facility] 01-02-2023 12:22-0500 SaO2% (BldA) [Mass fraction] 96 % YOAN Kumari MD Work Phone: [facility] 01-02-2023 12:22-0500 Systolic blood pressure 112 mm[Hg] YOAN Kumari MD Work Phone: [facility] 12-26-2022 12:09-0500 Body temperature 96.91 [degF] YOAN Kumari MD Work Phone: [facility] 12-26-2022 12:09-0500 Body weight 111.04 kg YOAN Kumari MD Work Phone: [facility] 12-26-2022 12:09-0500 Diastolic blood pressure 75 mm[Hg] YOAN Kumari MD Work Phone: [facility] 12-26-2022 12:09-0500 Heart rate 66 /min YOAN Kumari MD Work Phone: [facility] 12-26-2022 12:09-0500 Respiratory rate 16 /min YOAN Kumari MD Work Phone: [facility] 12-26-2022 12:09-0500 SaO2% (BldA) [Mass fraction] 95 % YOAN Kumari MD Work Phone: [facility] 12-26-2022 12:09-0500 Systolic blood pressure 116 mm[Hg] YOAN Kumari MD Work Phone: [facility] 12-19-2022 12:17-0500 Body temperature 97 [degF] YOAN Kumari MD Work Phone: [facility] 12-19-2022 12:17-0500 Body weight 111.04 kg YOAN Kumari MD Work Phone: [facility] 12-19-2022 12:17-0500 Diastolic blood pressure 68 mm[Hg] YOAN Kumari MD Work Phone: [facility] 12-19-2022 12:17-0500 Heart rate 81 /min YOAN Kumari MD Work Phone: [facility] 12-19-2022 12:17-0500 Respiratory rate 16 /min YOAN Kumari MD Work Phone: [facility] 12-19-2022 12:17-0500 SaO2% (BldA) [Mass fraction] 99 % YOAN Kumari MD Work Phone: [facility] 12-19-2022 12:17-0500 Systolic blood pressure 115 mm[Hg] YOAN Kumari MD Work Phone: [facility] 12-14-2022 10:57-0500 Body temperature 97 [degF] YOAN Kumari MD Work Phone: [facility] 12-14-2022 10:57-0500 Body weight 109.77 kg YOAN Kumari MD Work Phone: [facility] 12-14-2022 10:57-0500 Diastolic blood pressure 76 mm[Hg] YOAN Kumari MD Work Phone: [facility] 12-14-2022 10:57-0500 Heart rate 59 /min YOAN Kumari MD Work Phone: [facility] 12-14-2022 10:57-0500 Respiratory rate 16 /min YOAN Kumari MD Work Phone: [facility] 12-14-2022 10:57-0500 SaO2% (BldA) [Mass fraction] 96 % YOAN Kumari MD Work Phone: [facility] 12-14-2022 10:57-0500 Systolic blood pressure 125 mm[Hg] YOAN Kumari MD Work Phone: [facility] 12-02-2022 12:15-0400 Blood Pressure Location Yosef GRIMES [facility] 12-02-2022 12:15-0400 Diastolic blood pressure 74 mm[Hg] Yosef GRIMES [facility] 12-02-2022 12:15-0400 Heart rate 68 /min Yosef GRIMES [facility] 12-02-2022 12:15-0400 Systolic blood pressure 129 mm[Hg] Yosef GRIMES [facility] 11-18-2022 11:18-0400 Blood Pressure Location Yosef GRIMES [facility] 11-18-2022 11:18-0400 Diastolic blood pressure 70 mm[Hg] Yosef GRIMES [facility] 11-18-2022 11:18-0400 Heart rate 68 /min Yosef GRIMES [facility] 11-18-2022 11:18-0400 Respiratory rate 16 /min Yosef GRIMES [facility] 11-18-2022 11:18-0400 Systolic blood pressure 128 mm[Hg] Yosef GRIMES [facility] 11-15-2022 08:47-0400 Body temperature 97.59 [degF] YOAN Kumari MD Work Phone: [facility] 11-15-2022 08:47-0400 Body weight 112.49 kg YOAN Kumari MD Work Phone: [facility] 11-15-2022 08:47-0400 Diastolic blood pressure 78 mm[Hg] YOAN Kumari MD Work Phone: [facility] 11-15-2022 08:47-0400 Heart rate 57 /min YOAN Kumari MD Work Phone: [facility] 11-15-2022 08:47-0400 Respiratory rate 20 /min YOAN Kumari MD Work Phone: [facility] 11-15-2022 08:47-0400 SaO2% (BldA) [Mass fraction] 96 % YOAN Kumari MD Work Phone: [facility] 11-15-2022 08:47-0400 Systolic blood pressure 127 mm[Hg] YOAN Kumari MD Work Phone: [facility] 10-09-2022 10:45-0400 Body height 193.04 cm Angelina Holder Other [employer] Other 10-09-2022 10:45-0400 Body mass index (BMI) [Ratio] 30.59 kg/m2 Angelina Holder Other [employer] Other 10-09-2022 10:45-0400 Body temperature 98.3 [degF] Angelina Holder Other [employer] Other 10-09-2022 10:45-0400 Body weight 113.99 kg Angelina Holder Other [employer] Other 10-09-2022 10:45-0400 Diastolic blood pressure 68 mm[Hg] Angelina Holder Other [employer] Other 10-09-2022 10:45-0400 Respiratory rate 16 /min Angelina Curranmond Other [employer] Other 10-09-2022 10:45-0400 SaO2% (BldA) [Mass fraction] 96 % Angelina Holder Other [facility] [employer] Other 10-09-2022 10:45-0400 Systolic blood pressure 110 mm[Hg] Angelina Glory Other [facility] [employer] Other 10-03-2022 13:53-0400 Blood Pressure Location Yosefgutierrez GRIMES [facility] 10-03-2022 13:53-0400 Diastolic blood pressure 70 mm[Hg] Yosef GRIMES [facility] 10-03-2022 13:53-0400 Heart rate 80 /min Yosef GRIMES [facility] 10-03-2022 13:53-0400 Respiratory rate 16 /min Yosefgutierrez GRIMES [facility] 10-03-2022 13:53-0400 Systolic blood pressure 130 mm[Hg] Yosef GRIMES [facility] 06-02-2022 14:00-0400 Body height 193 cm Elio Payne APRN.TEMP RECRUITER Work Phone: [facility] 06-02-2022 14:00-0400 Body temperature 97.81 [degF] Elio Payne APRN.TEMP RECRUITER Work Phone: [facility] 06-02-2022 14:00-0400 Body weight 118.03 kg Elio Payne APRN.TEMP RECRUITER Work Phone: [facility] 04-27-2023 14:00-0400 Diastolic blood pressure 63 mm[Hg] Elio Payne AUTOMOTIVE QUALITY MANAGER.TEMP RECRUITER Work Phone: [facility] 06-02-2022 14:00-0400 Heart rate 77 /min Elio Payne AUTOMOTIVE QUALITY MANAGER.TEMP RECRUITER Work Phone: [facility] 06-02-2022 14:00-0400 Respiratory rate 18 /min Elio Payne AUTOMOTIVE QUALITY MANAGER.TEMP RECRUITER Work Phone: [facility] 06-02-2022 14:00-0400 SaO2% (BldA) [Mass fraction] 93 % Elio Payne AUTOMOTIVE QUALITY MANAGER.TEMP RECRUITER Work Phone: [facility] 06-02-2022 14:00-0400 Systolic blood pressure 118 mm[Hg] Elio Payne AUTOMOTIVE QUALITY MANAGER.TEMP RECRUITER Work Phone: [facility] 11-02-2021 12:50-0400 Body height 193 cm Nicolas Hwang MD Work Phone: [facility] 11-02-2021 12:50-0400 Body temperature 97.7 [degF] Nicolas Hwang MD Work Phone: [facility] 11-02-2021 12:50-0400 Body weight 119.39 kg Nicolas Hwang MD Work Phone: [facility] 11-02-2021 12:50-0400 Diastolic blood pressure 77 mm[Hg] Nicolas Hwang MD Work Phone: [facility] 11-02-2021 12:50-0400 Heart rate 72 /min Nicolas Hwang MD Work Phone: [facility] 11-02-2021 12:50-0400 Respiratory rate 18 /min Nicolas Hwang MD Work Phone: [facility] 11-02-2021 12:50-0400 SaO2% (BldA) [Mass fraction] 94 % Nicolas Hwang MD Work Phone: [facility] 11-02-2021 12:50-0400 Systolic blood pressure 140 mm[Hg] Nicolas Hwang MD Work Phone: [facility] 09-27-2021 10:00-0400 Blood Pressure Location Yosef GRIMES [facility] 09-27-2021 10:00-0400 Diastolic blood pressure 79 mm[Hg] Yosef GRIMES [facility] 09-27-2021 10:00-0400 Heart rate 67 /min Yosef GRIMES [facility] 09-27-2021 10:00-0400 Respiratory rate 16 /min Yosef GRIMES [facility] 09-27-2021 10:00-0400 Systolic blood pressure 114 mm[Hg] Yosef GRIMES [facility] 11-13-2020 13:45-0400 Body height 193.04 cm Azucena Ginty Other [employer] Other 11-13-2020 13:45-0400 Body mass index (BMI) [Ratio] 32.25 kg/m2 Azucena Ginty Other [facility] Other 11-13-2020 13:45-0400 Body temperature 96.4 [degF] Azucena Ginty Other [employer] Other 11-13-2020 13:45-0400 Body weight 120.2 kg Azucena Ginty Other [employer] Other 11-13-2020 13:45-0400 SaO2% (BldA) [Mass fraction] 99 % Azucena Hui Other [employer] Other Encounters Encounter Date Encounter Type Care Provider Facility Start: 09-25-2025 ambulatory Shilpa L Parvez Facility: [facility] Start: 11-15-2024 ambulatory Yosef GRIMES Facili ty:[facility] Start: 09-26-2024 End: 09-26-2024 ambulatory Shilpa L Parvez Facility:[facility] Start: 06-04-2024 End: 06-04-2024 Office outpatient visit 15 minutes David Kumari MD Work Phone: Radiation Oncology Comment on above: Malignant neoplasm o f prostate (HCC) (Primary Dx) Start: 06-04-2024 End: 06-04-2024 ambulatory David KUMARI Facility:[facility] Start: 05-20-2024 End: 05-20-2024 Office outpatient visit 25 minutes Minoo Gill APRN.CNP Work Phone: Hematology/Oncology Comment on above: Monoclonal gammopath y (Primary Dx); Prostate cancer (HCC); Chronic renal insufficiency, stage 3 (moderate) (HCC) Start: 05-20-2024 End: 05-20-2024 ambulatory MINOO GILL Facility:[facility] Start: 05-16-2024 End: 05-29-2024 Telephone encounter Nicolas Hwang MD Work Phone: [facility] Start: 05-15-2024 End: 05-15-2024 ambulatory SHAHRIAR STEPHENSON Facility:[facility] Start: 05-07-2024 End: 05-07-2024 ambulatory SHAHRIAR STEPHENSON Facility:[facility] Start: 05-07-2024 End: 05-07-2024 Subsequent hospital visit by physician General Joseph Garcia Mc Work Phone: Radiology Start: 03-04-2024 End: 03-04-2024 ambulatory Yosef GRIMES Facility:[facility] Start: 03-04-2024 End: 03-04-2024 Patient encounter procedure Yosef GRIMES [facility] Start: 02-28-2024 End: 02-28-2024 ambulatory Yosef GRIMES Facility:[facility] Start: 02-28-2024 End: 02-28-2024 Patient encounter procedure Yosef GRIMES [facility] Start: 02-22-2024 End: 02-22-2024 ambulatory Yosef Grimes [facility] Work Phone: Start: 02-22-2024 End: 02-22-2024 Departed Referred Yosef Grimes MD Work Phone: [facility] Start: 02-22-2024 End: 02-22-2024 ambulatory Yosef GRIMES Facility:CD:[id number] Start: 01-30-2024 End: 01-30-2024 ambulatory Meño Bob Facility:[facility] [place] [place] Start: 01-30-2024 End: 01-30-2024 Patient encounter procedure Meño Bob [facility] Start: 01-26-2024 ambulatory Yosef GRIMES Facili ty:[facility] Start: 01-23-2024 End: 01-23-2024 ambulatory Meño Bob Facility:[facility] [place] [place] Start: 01-23-2024 End: 01-23-2024 Patient encounter procedure Meño Bob [facility] Start: 01-19-2024 End: 01-19-2024 ambulatory YOSEF GRIMES Facility:[facility] Start: 01-19-2024 End: 01-19-2024 Subsequent hospital visit by physician Arrival Time Radiology Work Phone: Radiology Pet [facility] Start: 01-13-2024 Non-patient / Non-visit Mateusz Grimes MD Work Phone: [facility] Work Phone: Start: 01-10-2024 End: 01-10-2024 ambulatory Yosef GRIMES Facility:[facility] [place] Start: 01-10-2024 End: 01-10-2024 Patient encounter procedure Yosef GRIMES [facility] Start: 01-08-2024 End: 01-08-2024 ambulatory Yosef GRIMES Facility:[facility] [place] [place] Start: 01-08-2024 End: 01-08-2024 Lab Drop off Yosef GRIMES [facility] Start: 01-08-2024 End: 01-08-2024 ambulatory Yosef GRIMES Facility:[facility] Start: 01-08-2024 End: 01-08-2024 Patient encounter procedure Yosef GRIMES [facility] Start: 01-01-2024 End: 01-01-2024 Lab Drop off Yosef Alivia CORNELIO [facility] Start: 01-01-2024 End: 01-01-2024 ambulatory Yosef Alivia CORNELIO Facility:[facility] [place] [place] Start: 01-01-2024 End: 01-01-2024 Patient encounter procedure Yosef R GRIMES [facility] Start: 12-29-2023 End: 01-01-2024 Telephone encounter David Kumari MD Work Phone: Radiation Oncology Comment on above: Hematuria Start: 11-24-2023 End: 11-24-2023 ambulatory [facility]IM[facility] Start: 11-24-2023 End: 11-24-2023 Patient encounter procedure Yosef GRIMES [facility] Start: 11-16-2023 End: 11-16-2023 ambulatory Nicolas Hwang MD Work Phone: Hematology/Oncology Comment on above: Prostate cancer (HCC ) (Primary Dx); Monoclonal gammopathy Start: 11-16-2023 End: 11-16-2023 Patient encounter procedure Nicolas Hwang MD Work Phone: Hematology/Oncology Comment on above: Malignant neoplasm o f prostate (HCC) (Primary Dx) Start: 11-09-2023 End: 11-09-2023 ambulatory SHAHRIAR STEPHENSON Facility:[facility] Start: 10-23-2023 End: 10-23-2023 ambulatory DRIVER EDUCATION INSTRUCTOR Shilpa L Parvez Facility:[facility] Start: 09-27-2023 End: 09-27-2023 ambulatory DRIVER EDUCATION INSTRUCTOR Shilpa L Parvez Facility:[facility] Start: 05-22-2023 End: 05-22-2023 ambulatory Yosef GRIMES Facility:[facility] Start: 05-22-2023 End: 05-22-2023 Patient encounter procedure Yosef R CORNELIO [facility] Start: 05-18-2023 End: 05-18-2023 ambulatory Elio Payne APRN.TEMP RECRUITER Work Phone: Hematology/Oncology Comment on above: Prostate cancer (HCC ) (Primary Dx); Monoclonal gammopathy; Chronic renal insufficiency, stage 3 (moderate) (HCC); Essential hypertension Start: 05-18-2023 End: 05-18-2023 Patient encounter procedure Elio Payne APRN.TEMP RECRUITER Work Phone: [facility] Comment on above: Malignant neoplasm o f prostate (HCC) (Primary Dx) Start: 05-10-2023 Telephone encounter Elio becerril APRN.TEMP RECRUITER Work Phone: Hematology/Oncology Comment on above: Lab Orders Start: 01-26-2023 End: 01-26-2023 Patient encounter procedure David Kumari MD Work Phone: Radiation Oncology Comment on above: Malignant neoplasm o f prostate (HCC) (Primary Dx) Start: 01-17-2023 End: 01-17-2023 Patient encounter procedure David Kumari MD Work Phone: Radiation Oncology Comment on above: Malignant neoplasm o f prostate (HCC) (Primary Dx) Start: 01-16-2023 End: 01-16-2023 Refill Rose AndradeNickgutierrez [facility] Work Phone: Hematology/Oncology Comment on above: Refill [...] Nicolas Hwang MD Work Phone: [facility] Start: 01-02-2023 End: 01-02-2023 Patient encounter procedure David Kumari MD Work Phone: Radiation Oncology Comment on above: Malignant neoplasm o f prostate (HCC) (Primary Dx) Start: 12-26-2022 End: 12-26-2022 Patient encounter procedure David Kumari MD Work Phone: Radiation Oncology Comment on above: Malignant neoplasm o f prostate (HCC) (Primary Dx) Start: 12-22-2022 End: 12-22-2022 Patient encounter procedure [facility] Work Phone: Radiation Oncology Comment on above: Malignant neoplasm o f prostate (HCC) Start: 12-19-2022 Telephone encounter David Kumari MD Work Phone: [facility] Comment on above: Appointment Confirma tion Start: [...] procedure David Kumari MD Work Phone: [facility] Comment on above: Malignant neoplasm o f prostate (HCC) (Primary Dx) Start: 12-08-2022 Radiation Oncology Note David Kumari MD Work Phone: Radiation Oncology Comment on above: Treatment Planning Start: 12-08-2022 End: 12-08-2022 Subsequent hospital visit by physician David Kumari MD Work Phone: Radiology [facility] Start: 12-02-2022 End: 12-02-2022 Patient encounter procedure Yosef GRIMES [facility] Start: 12-01-2022 ambulatory Letty Graves METAL FLOW COORDINATOR Radia tion Oncology Comment on above: Patient Education Start: 11-28-2022 End: 11-28-2022 Subsequent hospital visit by physician Mri 6 Radio Main Q (I-Stat/1.5t/3t) Work Phone: MRI Q Comment on above: Malignant neoplasm o f prostate (HCC) [C61] Start: 11-22-2022 Patient encounter procedure [facility]cf Prov ider [facility] Department Start: 11-18-2022 End: 11-18-2022 Patient encounter procedure Yosef GRIMES [facility] Start: 11-15-2022 End: 11-15-2022 Patient encounter procedure G Damien Kumari MD Work Phone: Radiation Oncology Comment on above: Malignant neoplasm o f prostate (HCC) (Primary Dx) Start: 11-01-2022 End: 11-01-2022 Lab Drop off Yosef GRIMES [facility] Start: 10-28-2022 End: 10-28-2022 Subsequent hospital visit by physician Arrival Time Radiology Work Phone: Radiology Pet CT Comment on above: Rising PSA following treatment for malignant neoplasm of prostate [R97.21] Start: 10-09-2022 Office outpatient vi sit 15 minutes Angelina Holder [facility] Start: 10-09-2022 End: 10-09-2022 ambulatory Angelina Holder Other [employer] Other Start: 10-09-2022 End: 10-09-2022 Departed Referred DISEASE AND INSECT CONTROL [facility]OSS-[facility] Angelina Holder Work Phone: [facility] [place] Work Phone: Start: 10-06-2022 Telephone encounter Nicolas schneider MD Work Phone: [facility] Comment on above: Nm Pet Request Start: 10-03-2022 End: 10-03-2022 Patient encounter procedure Yosef GRIMES [facility] Start: 06-02-2022 End: 06-02-2022 ambulatory Elio Payne AUTOMOTIVE QUALITY MANAGER.TEMP RECRUITER Work Phone: Hematology/Oncology Comment on above: Monoclonal gammopath y (Primary Dx); Prostate cancer (HCC); Essential hypertension; Chronic renal insufficiency, stage 3 (moderate) (HCC) Start: 06-02-2022 End: 06-02-2022 Patient encounter procedure Elio Payne AUTOMOTIVE QUALITY MANAGER.TEMP RECRUITER Work Phone: [facility] Start: 11-08-2021 Telephone encounter Shima Hutchison Hematology/Oncology Comment on above: Results Start: 11-02-2021 End: 11-02-2021 ambulatory Nicolas Hwang MD Work Phone: Hematology/Oncology Comment on above: Monoclonal gammopath y (Primary Dx) Start: 11-02-2021 End: 11-02-2021 Patient encounter procedure Nicolas Hwang MD Work Phone: [place] Start: 10-21-2021 Telephone encounter Nicolas schneider MD Work Phone: Hematology/Oncology Comment on above: Lab Orders Start: 10-13-2021 End: 10-14-2021 ambulatory KAREN GABRIELA Facility:[facility] Start: 09-27-2021 End: 09-27-2021 Patient encounter procedure Yosef GRIMES [facility] Start: 09-14-2021 End: 09-15-[address] YOSEF GRIMES Facility:[facility] Start: 08-16-2021 End: 08-16-[address] GURMEET CHANEL Facility:[facility] Start: 08-02-2021 Telephone encounter Nicolas schneider MD Work Phone: [facility] Comment on above: Call Back 48 Hours Start: 07-20-2021 End: 07-21-[address] GURMEET CHANEL Facility:[facility] Start: 07-09-2021 End: 07-10-[address] GURMEET CHANEL Facility:[facility] Start: 05-14-2021 Telephone encounter Pretty Aparicio professor of food biochemistry/Oncology Comment on above: Results Start: 05-05-2021 Telephone [...] count complete auto&auto difrntl wbc G Damien Kumari MD Work Phone: Start: 11-28-2022 Mri pelvis w/o & w/c ontrast material G Damien Kumari MD Work Phone: Start: 11-10-2022 Transurethral resect ion of bladder neoplasm Yosef GRIMES Start: 11-01-2022 Cystoscopy Yosef SAVAGE Start: 09-14-[address] GURMEET DANIELS Comment on above: Performed By: #### P SAD #### [facility] [address] [place] [address] Dr. Brenda Kline Start: 05-10-2021 Adult depression scr eening assessment Pretty Aparicio RN Start: 10-29-2020 Adult depression scr eening assessment Nicolas Hwang MD Work Phone: Start: 10-18-2019 EXTERNAL LAB External P rovider Start: 01-07-2016 Radical retropubic prostatectomy with bilateral pelvic lymphadenectomy Yosef GRIMES Start: 11-03-2015 Transrectal biopsy o f prostate using ultrasound guidance Yosef CORNELIO Start: 02-06-2015 Colonoscopy Yosef COLIN SAVAGE Start: 02-07-2012 End: 02-07-2012 Colonoscopy Nicolas Hwang MD Work Phone: Start: 02-07-2012 Colonoscopy Yosef COLIN SAVAGE Plan of Treatment Date Care Activity Detail Author Start: 05-16-2027 [facility] Start: 11-15-2026 [facility] Start: 05-17-2026 Diabetes Screening Diabetes Screenmo g [facility] Start: 01-19-2026 Diabetes Screening Diabetes Screenmo g [facility] Start: 01-05-2026 [facility] Start: 12-08-2025 Diabetes Screening Diabetes Screenmo g [facility] Start: 06-02-2025 DIABETES SCREEN [facility] Start: 06-02-2025 Diabetes Screening Diabetes Screenin g [facility] Start: 11-13-2024 End: 11-13-2024 Follow-up encounter 11/13/2024 1:30 PM EDT Visit (SP) Office Hematology/Oncology [address] [place] [address] [place] [address] Minoo Gill APRN.[facility] [address] [place] [address] 6 month follow up with lab Hematology/Oncology Comment on above: 6 month follow up [facility] Start: 11-13-2024 End: 11-13-2024 Patient encounter procedure [facility] Comment on above: 6 month follow up [facility] Start: 11-12-2024 End: 02-11-2025 Prostate specific Ag [Mass/volume] in Serum or Plasma PROSTATE-SPECIFIC ANTIGEN DIAGNOSTIC Lab Routine Malignant neoplasm of prostate (HCC) Expected: 11/12/2024, Expires: 02/11/2025 [facility] Work Phone: Comment on above: Expected: 11/12/2024 , Expires: 02/11/2025 Start: 11-12-2024 End: 11-12-2024 Patient encounter procedure 11/12/2024 9:00 AM EDT Office Visit [facility] [address] [place] [address] 6 month follow up with lab [facility] Comment on above: 6 month follow up wi th lab Start: 11-02-2024 DIABETES SCREEN [facility] Start: 10-24-2024 ambulatory Ambulatory Facility:[facility] Start: 06-04-2024 End: 06-04-2024 Patient encounter procedure 06/04/2024 3:00 PM EDT Office Visit Radiation Oncology [address] [place] [address] David Kumari MD [address] [place] [address] 6 month follow up Radiation Oncology Comment on above: 6 month follow up Start: 05-20-2024 ambulatory Ambulatory Facility:[facility] Start: 05-16-2024 End: 08-15-2024 Prostate specific Ag [Mass/volume] in Serum or Plasma PROSTATE-SPECIFIC ANTIGEN DIAGNOSTIC Lab Routine Malignant neoplasm of prostate (HCC) Expected: 05/16/2024 (Approximate), Expires: 08/15/2024 [facility] Work Phone: Comment on above: Expected: 05/16/2024 (Approximate), Expires: 08/15/2024 Start: 05-16-2024 End: 05-16-2024 Follow-up encounter 05/16/2024 11:40 AM EDT Visit (SP) Office Hematology/Oncology [address] [place] [address] Nicolas Hwang MD [address] [place] [address] 6 month follow up Hematology/Oncology Comment on above: 6 month follow up Start: 05-16-2024 End: 05-16-2024 Patient encounter procedure 05/16/2024 11:00 AM EDT Office Visit Radiation Oncology [address] [place] [address] David Kumari MD [address] [place] [address] Moved from 05/14 Radiation Oncology Comment on above: Moved from 05/14 Start: 05-14-2024 End: 05-14-2024 Follow-up encounter 05/14/2024 2:00 PM EDT Visit (SP) Office Hematology/Oncology [address] [place] [address] Nicolas Hwang MD [address] [place] [address] 6 month follow up Hematology/Oncology Comment on above: 6 month follow up Start: 05-14-2024 End: 05-14-2024 Patient encounter procedure 05/14/2024 1:00 PM EDT Office Visit Radiation Oncology [address] [place] [address] David Kumari MD [address] [place] [address] 6 month follow up Radiation Oncology Comment on above: 6 month follow up Start: 05-10-2024 DIABETES SCREEN [facility] Start: 05-07-2024 End: 05-07-2024 Patient encounter procedure 05/07/2024 1:00 PM EDT Office Visit [facility] [address] [place] [address] lab [facility] Comment on above: lab Start: 02-07-2024 Advance Directive Discussion Advance Directive Discussion [facility] Start: 11-17-2023 End: 02-16-2024 Prostate specific Ag [Mass/volume] in Serum or Plasma PROSTATE-SPECIFIC ANTIGEN DIAGNOSTIC Lab Routine Malignant neoplasm of prostate (HCC) Expected: 11/17/2023 (Approximate), Expires: 02/16/2024 [facility] Work Phone: Comment on above: Expected: 11/17/2023 (Approximate), Expires: 02/16/2024 Start: 11-16-2023 End: 11-16-2023 Follow-up encounter 11/16/2023 3:00 PM EDT Visit (SP) Office Hematology/Oncology [address] [place] [address] Nicolas Hwang MD [address] [place] [address] 6 month follow up lab Hematology/Oncology Comment on above: 6 month follow up la b Start: 11-16-2023 End: 11-16-2023 Patient encounter procedure 11/16/2023 2:15 PM EDT Office Visit Radiation Oncology [address] [place] [address] David Kumari MD [address] [place] [address] Followup Radiation Oncology Comment on above: Followup Start: 11-16-2023 End: 02-15-2024 MONOCLONAL PROTEIN, SERUM (BLOOD) [facility] Comment on above: Expected: 11/16/2023 , Expires: 02/15/2024 Start: 11-16-2023 End: 02-15-2024 PROT ELECT SERUM WITH FAUSTINA AND INTERP [facility] Work Phone: Comment on above: Expected: 11/16/2023 , Expires: 02/15/2024 Start: 11-09-2023 End: 11-09-2023 Patient encounter procedure 11/09/2023 1:00 PM EDT Office Visit [facility] [address] [place] [address] Lab [facility] Comment on above: Lab Start: 10-30-2023 DIABETES SCREEN [facility] Start: 10-08-2023 Covid-19 Vaccine () Covid-19 Vaccine () [facility] Start: 10-08-2023 Covid-19 Vaccine () Covid-19 Vaccine () [facility] Start: 10-08-2023 Influenza vaccination [facility] Start: 06-16-2023 End: 09-15-2023 MONOCLONAL PROTEIN, SERUM (BLOOD) MONOCLONAL PROTEIN, SERUM (BLOOD) Lab Routine Prostate cancer (HCC) Monoclonal gammopathy Chronic renal insufficiency, stage 3 (moderate) (HCC) Essential hypertension Expected: 06/16/2023, Expires: 09/15/2023 [facility] Work Phone: Comment on above: Expected: 06/16/2023 , Expires: 09/15/2023 Start: 05-19-2023 End: 08-18-2023 CBC W Auto Differential panel - Blood COMPLETE BLOOD COUNT AND DIFFERENTIAL Lab Routine Prostate cancer (HCC) Monoclonal gammopathy Chronic renal insufficiency, stage 3 (moderate) (HCC) Essential hypertension Expected: 05/19/2023, Expires: 08/18/2023 [facility] Work Phone: Comment on above: Expected: 05/19/2023 , Expires: 08/18/2023 Start: 05-19-2023 End: 08-18-2023 Comprehensive metabolic 2000 panel - Serum or Plasma COMPREHENSIVE METABOLIC PANEL Lab Routine Prostate cancer (HCC) Monoclonal gammopathy Chronic renal insufficiency, stage 3 (moderate) (HCC) Essential hypertension Expected: 05/19/2023, Expires: 08/18/2023 [facility] Work Phone: Comment on above: Expected: 05/19/2023 , Expires: 08/18/2023 Start: 05-19-2023 End: 08-18-2023 Prostate specific Ag [Mass/volume] in Serum or Plasma PROSTATE-SPECIFIC ANTIGEN DIAGNOSTIC Lab Routine Prostate cancer (HCC) Monoclonal gammopathy Chronic renal insufficiency, stage 3 (moderate) (HCC) Essential hypertension Expected: 05/19/2023, Expires: 08/18/2023 [facility] Work Phone: Comment on above: Expected: 05/19/2023 , Expires: 08/18/2023 Start: 05-19-2023 End: 08-18-2023 PROTEIN ELECTROPHORESIS SERUM W/INTERP PROTEIN ELECTROPHORESIS SERUM W/INTERP Lab Routine Prostate cancer (HCC) Monoclonal gammopathy Chronic renal insufficiency, stage 3 (moderate) (HCC) Essential hypertension Expected: 05/19/2023, Expires: 08/18/2023 [facility] Work Phone: Comment on above: Expected: 05/19/2023 , Expires: 08/18/2023 Start: 05-18-2023 End: 08-17-2023 CBC W Auto Differential panel - Blood CBC + DIFF Lab Routine Prostate cancer (HCC) Monoclonal gammopathy Expected: 05/18/2023, Expires: 08/17/2023 [facility] Work Phone: Comment on above: Expected: 05/18/2023 , Expires: 08/17/2023 Start: 05-18-2023 End: 08-17-2023 Comprehensive metabolic 2000 panel - Serum or Plasma COMP METABOLIC PANEL Lab Routine Prostate cancer (HCC) Monoclonal gammopathy Expected: 05/18/2023, Expires: 08/17/2023 [facility] Work Phone: Comment on above: Expected: 05/18/2023 , Expires: 08/17/2023 Start: 05-18-2023 End: 08-17-2023 MONOCLONAL PROTEIN, SERUM (BLOOD) MONOCLONAL PROTEIN, SERUM (BLOOD) Lab Routine Prostate cancer (HCC) Monoclonal gammopathy Expected: 05/18/2023, Expires: 08/17/2023 [facility] Work Phone: Comment on above: Expected: 05/18/2023 , Expires: 08/17/2023 Start: 05-18-2023 End: 08-17-2023 Prostate specific Ag [Mass/volume] in Serum or Plasma PSA/PROSTSPECAG DIAG Lab Routine Prostate cancer (HCC) Monoclonal gammopathy Expected: 05/18/2023, Expires: 08/17/2023 [facility] Work Phone: Comment on above: Expected: 05/18/2023 , Expires: 08/17/2023 Start: 05-18-2023 End: 08-17-2023 PROTEIN ELECTROPHORESIS SERUM W/INTERP PROTEIN ELECTROPHORESIS SERUM W/INTERP Lab Routine Prostate cancer (HCC) Monoclonal gammopathy Expected: 05/18/2023, Expires: 08/17/2023 [facility] Work Phone: Comment on above: Expected: 05/18/2023 , Expires: 08/17/2023 Start: 02-06-2023 Advance Directive Discussion Advance Directive Discussion [facility] Start: 02-06-2023 Behavioral Health Screening Behavioral Health Screening [facility] Start: 01-05-2023 End: 04-06-2023 MONOCLONAL PROTEIN, SERUM (BLOOD) [facility] Work Phone: Comment on above: Expected: 01/05/2023 , Expires: 04/06/2023 Start: 01-05-2023 End: 04-06-2023 PROT ELECT SERUM WITH FAUSTINA AND INTERP [facility] Work Phone: Comment on above: Expected: 01/05/2023 , Expires: 04/06/2023 Start: 11-02-2022 End: 01-02-2023 CBC W Auto Differential panel - Blood CBC + DIFF Lab Routine Monoclonal gammopathy Prostate cancer (HCC) Essential hypertension Chronic renal insufficiency, stage 3 (moderate) (HCC) Expected: 11/02/2022, Expires: 01/02/2023 [facility] Work Phone: Comment on above: Expected: 11/02/2022 , Expires: 01/02/2023 Start: 11-02-2022 End: 01-02-2023 Comprehensive metabolic 2000 panel - Serum or Plasma COMP METABOLIC PANEL Lab Routine Monoclonal gammopathy Prostate cancer (HCC) Essential hypertension Chronic renal insufficiency, stage 3 (moderate) (HCC) Expected: 11/02/2022, Expires: 01/02/2023 [facility] Work Phone: Comment on above: Expected: 11/02/2022 , Expires: 01/02/2023 Start: 11-02-2022 End: 01-02-2023 MONOCLONAL PROTEIN, SERUM (BLOOD) MONOCLONAL PROTEIN, SERUM (BLOOD) Lab Routine Monoclonal gammopathy Prostate cancer (HCC) Essential hypertension Chronic renal insufficiency, stage 3 (moderate) (HCC) Expected: 11/02/2022, Expires: 01/02/2023 [facility] Work Phone: Comment on above: Expected: 11/02/2022 , Expires: 01/02/2023 Start: 11-02-2022 End: 01-02-2023 PROT ELECT SERUM WITH FAUSTINA AND INTERP PROT ELECT SERUM WITH FAUSTINA AND INTERP Lab Routine Monoclonal gammopathy Prostate cancer (HCC) Essential hypertension Chronic renal insufficiency, stage 3 (moderate) (HCC) Expected: 11/02/2022, Expires: 01/02/2023 [facility] Work Phone: Comment on above: Expected: 11/02/2022 , Expires: 01/02/2023 Start: 10-09-2022 Bacteria identified in Urine by Culture [facility] Start: 10-07-2022 Covid-19 Vaccine () Covid-19 Vaccine () [facility] Start: 10-07-2022 Influenza vaccination [facility] Start: 06-02-2022 End: 08-02-2022 CBC W Auto Differential panel - Blood CBC + DIFF Lab Routine Monoclonal gammopathy Expected: 06/02/2022, Expires: 08/02/2022 [facility] Work Phone: Comment on above: Expected: 06/02/2022 , Expires: 08/02/2022 Start: 06-02-2022 End: 08-02-2022 Comprehensive metabolic 2000 panel - Serum or Plasma COMP METABOLIC PANEL Lab Routine Monoclonal gammopathy Expected: 06/02/2022, Expires: 08/02/2022 [facility] Work Phone: Comment on above: Expected: 06/02/2022 , Expires: 08/02/2022 Start: 06-02-2022 End: 08-02-2022 MONOCLONAL PROTEIN, SERUM (BLOOD) MONOCLONAL PROTEIN, SERUM (BLOOD) Lab Routine Monoclonal gammopathy Expected: 06/02/2022, Expires: 08/02/2022 [facility] Work Phone: Comment on above: Expected: 06/02/2022 , Expires: 08/02/2022 Start: 06-02-2022 End: 08-02-2022 PROT ELECT SERUM WITH FAUSTINA AND INTERP PROT ELECT SERUM WITH FAUSTINA AND INTERP Lab Routine Monoclonal gammopathy Expected: 06/02/2022, Expires: 08/02/2022 [facility] Work Phone: Comment on above: Expected: 06/02/2022 , Expires: 08/02/2022 Start: 05-10-2022 Adult depression screening assessment DEPRESSION SCREENING [facility] Start: 02-06-2022 ADVANCE DIRECTIVE DISCUSSION ADVANCE DIRECTIVE DISCUSSION [facility] Start: 02-06-2022 DEPRESSION ASSESSMENT DEPRESSION ASS ESSMENT [facility] Start: 11-02-2021 End: 01-02-2022 CBC W Auto Differential panel - Blood CBC + DIFF Lab Routine Monoclonal gammopathy Expected: 11/02/2021, Expires: 01/02/2022 [facility] Work Phone: Comment on above: Expected: 11/02/2021 , Expires: 01/02/2022 Start: 11-02-2021 End: 01-02-2022 Comprehensive metabolic 2000 panel - Serum or Plasma COMP METABOLIC PANEL Lab Routine Monoclonal gammopathy Expected: 11/02/2021, Expires: 01/02/2022 [facility] Work Phone: Comment on above: Expected: 11/02/2021 , Expires: 01/02/2022 Start: 11-02-2021 End: 01-02-2022 PROT ELECT SERUM WITH FAUSTINA AND INTERP PROT ELECT SERUM WITH FAUSTINA AND INTERP Lab Routine Monoclonal gammopathy Expected: 11/02/2021, Expires: 01/02/2022 [facility] Work Phone: Comment on above: Expected: 11/02/2021 , Expires: 01/02/2022 Start: 10-29-2021 Adult depression screening assessment DEPRESSION SCREENING [facility] Start: 10-07-2021 Influenza vaccination [facility] Start: 2021 RSV Vaccine (1 - 1-d ose 75+ series) RSV Vaccine (1 - 1-dose 75+ series) [facility] Start: 05-10-2021 End: 07-10-2021 CBC W Auto Differential panel - Blood CBC + DIFF Lab Routine Monoclonal gammopathy Prostate cancer (HCC) Expected: 05/10/2021, Expires: 07/10/2021 [facility] Work Phone: Comment on above: Expected: 05/10/2021 , Expires: 07/10/2021 Start: 02-06-2021 ADVANCE DIRECTIVE DISCUSSION ADVANCE DIRECTIVE DISCUSSION [facility] Start: 02-06-2021 DEPRESSION ASSESSMENT DEPRESSION ASS ESSMENT [facility] Start: 10-07-2020 Influenza vaccination INFLUENZA (#1) [facility] Start: 08-27-2020 COVID-19 VACCINE (3 - Booster) COVID-19 VACCINE (3 - Booster) [facility] Start: 05-25-2020 COVID-19 VACCINE (3 - Booster) COVID-19 VACCINE (3 - Booster) [facility] Start: 05-25-2020 COVID-19 VACCINE (3 - Mixed Product series) COVID-19 VACCINE (3 - Mixed Product series) [facility] Start: 10-08-2019 Influenza vaccination INFLUENZA (#1) [facility] Start: 02-06-2013 Colonoscopy COLONOSCOPY [facility] Start: 02-06-2013 COLORECTAL CANCER SCREENING COLORECTAL CANCER SCREENING [facility] Start: 09-03-2011 ADVANCE DIRECTIVE DISCUSSION ADVANCE DIRECTIVE DISCUSSION [facility] Start: 09-03-2011 Pneumococcal Vaccine : 50+ (1 of 1 - PCV) Pneumococcal Vaccine: 50+ (1 of 1 - PCV) [facility] Start: 09-03-2011 Pneumococcal Vaccine : 65+ (1 - PCV) Pneumococcal Vaccine: 65+ (1 - PCV) [facility] Start: 09-03-2011 Pneumococcal Vaccine : 65+ (1 of 1 - PCV) Pneumococcal Vaccine: 65+ (1 of 1 - PCV) [facility] Start: 09-03-2011 PNEUMOCOCCAL: 65+ (1 - PCV) PNEUMOCOCCAL: 65+ (1 - PCV) [facility] Start: 09-03-2011 PNEUMOVAX AGE 65 AND OVER WITH 5YR LOOKBACK (#1) PNEUMOVAX AGE 65 AND OVER WITH 5YR LOOKBACK (#1) [facility] Start: 2006 RSV Vaccine (1 - 1-d ose 60+ series) RSV Vaccine (1 - 1-dose 60+ series) [facility] Start: 1996 Pneumococcal Vaccine : 50+ (1 of 1 - PCV) Pneumococcal Vaccine: 50+ (1 of 1 - PCV) [facility] Start: 1996 SHINGRIX VACCINE (1 of 2) GOLDSMITH GRIX VACCINE (1 of 2) [facility] Start: 1996 Tuberculosis screening COLOREC AUBRIE CANCER SCREENING,SEE MODIFIER [facility] Start: 09-03-1991 COLOGUARD (FIT-DNA) COLOGUARD (FIT-D NA) [facility] Start: 09-03-[address] [facility]OGR[facility]HY [facility] Start: 09-03-1991 DIABETES SCREEN DIABETES SCREEN [facility] Start: 09-03-1991 FECAL OCCULT BLOOD FECAL OCCULT BLOO D [facility] Start: 09-03-1991 SIGMOIDOSCOPY SIGMOIDOSCOPY [facility] Start: 1981 LIPID SCREEN LIPID SCREEN [facility] Start: 1965 Urine microalbumin profile [facility] Start: 1964 Anxiety Screening Anxiety Screening [facility] Start: 1964 Depression Screening Depression Scre ening [facility] Start: 1964 HEPATITIS C SCREENING HEPATITIS C SC [facility] Start: 1964 Hepatitis C screening Hepatitis C [facility] CT SIM PLANNING RADI ATION ONCOLOGY CT SIM PLANNING RADIATION ONCOLOGY Radiology Routine Malignant neoplasm of prostate (HCC) Ordered: 12/15/2022 [facility] Work Phone: Comment on above: Ordered: 12/15/2022 End: 12-15-2023 MRI PROSTATE WO/W IVCON MRI PROSTATE WO/W IVCON Radiology Routine Malignant neoplasm of prostate (HCC) 1 Occurrences starting 11/15/2022 until 12/15/2023 [facility] Work Phone: Comment on above: 1 Occurrences starti ng 11/15/2022 until 12/15/2023 [facility] Immunizations Immunization Date Immunization Notes Care Provider Fa cility 03-30-2020 COVID-19 vaccine (UNSPECIFIED) Nicolas Hwang MD Work Phone: [facility] 03-08-2020 COVID-19 vaccine (UNSPECIFIED) Nicolas Hwang MD Work Phone: [facility] NEGATED: Highlighted row has not occurred!10-23-2023 influenza virus vaccine, unspecified formulation Yosef GRIMES [facility] Payers Date Payer Category Payer Self-pay 2020 Medicare AETNA MEDICARE A ETNA MEDICARE PPO [id number] 2020-Present [phone] [address] [place] [address] PPO [id number] 2020 Medicare AETNA MEDICARE A ETNA MEDICARE PPO [id number] 2020-Present [phone] [address] [place] [address] PPO [id number] 2020 Medicare (Managed Care) [place] [id number] 2019 Medicare AETNA MEDICARE A ETNA MEDICARE PPO [id number] 2019-Present PPO [id number] 1959 Medicare [id number] 1946 Unknown [id number] 2.16.840.1.584470.3.579.2. 593 1946 Unknown [id number] 2.16.840.1.185002.3.579.2. 593 1946 Unknown [id number] 2.16.840.1.589452.3.579.2. 593 1946 Unknown [id number] 2.16.840.1.394122.3.579.2. 593 1946 Unknown [id number] 2.16.840.1.847609.3.579.2. 593 1946 Unknown [id number] 2.16.840.1.319384.3.579.2. 72 1946 Unknown [id number] 2.16.840.1.731463.3.579.2. 727 1946 Unknown [id number] 2.16.840.1.267360.3.579.2. 72 1946 Unknown [id number] 2.16.840.1.483346.3.579.2. 727 1946 Unknown [id number] 2.16.840.1.847934.3.579.2. 727 1946 Unknown [id number] 2.16.840.1.595089.3.579.2. 727 1946 Unknown [id number] 2.16.840.1.717646.3.579.2. 72 1946 Unknown [id number] 2.16.840.1.455894.3.579.2. 727 1946 Unknown [id number] 2.16.840.1.650249.3.579.2. 72 1946 Unknown [id number] 2.16840.1.956534.3.579.2. 1946 Unknown [id number] 2.16840.1.026206.3.579.2 1946 Unknown [id number] 2.16.840.1.643427.3.579.2. 1946 Unknown [id number] 2.16840.1.038101.3.579.2 1946 Unknown [id number] 2.16840.1.961352.3.579.2 1946 Unknown [id number] 2.840.1.443040.3.579.2 1946 Unknown [id number] 2.840.1.243004.3.579.2 1946 Unknown [id number] 2.840.1.622585.3.579.2 1946 Unknown [id number] 2.840.1.180249.3.579.2 1946 Unknown [id number] 2.16840.1.955949.3.579.2 1946 Unknown [id number] 2.840.1.053870.3.579.2 1946 Unknown [id number] 2.840.1.249140.3.579.2 1946 Unknown [id number] 2.16840.1.267349.3.579.2. 727 Medicare [id number] 2.16840.1.348449.19 Unknown [id number] 2.840.1.128313.3.579.2. 531 Social History Date Type Detail Facility Tobacco smoking status VAIS Unknown if ever smoked [facility] Start: 1945 Sex Assigned At Not on file [facility] Start: 10-22-2019 End: 11-02-2021 Tobacco smoking status NHIS Never smoked tobacco [facility] Comment on above: patient never a smok er denies use Start: 10-22-2019 End: 11-02-2021 Tobacco use and exposure Smokeless tobacco non-user [facility] Start: 10-29-2020 End: 06-04-2024 Alcohol intake Ex-drinker (finding) [facility] Start: 04-30-2021 End: 11-02-2021 Exposure to SARS-CoV-2 (event) Not sure [facility] Start: 06-02-2022 End: 11-15-2022 Sex Assigned At [facility] Other History of tobacco use Passive smoker [facility] Tobacco smoking status Never [facility] Comment on above: patient never a smok er denies use Start: 06-02-2022 End: 11-15-2022 History of Social function [facility] Start: 1945 Sex Assigned At Male [facility] Start: 02-24-2024 Sex Male (finding) [facility] Functional Status Date Assessment Result Facility 03-04-2024 Functional Status N/A [facility] 01-23-2024 Functional Status N/A [facility] 01-10-2024 Functional Status N/A [facility] 01-08-2024 Functional Status N/A [facility] 11-24-2023 Functional Status N/A [facility] 05-22-2023 Functional Status N/A [facility] 12-02-2022 Functional Status N/A [facility] 11-18-2022 Functional Status N/A [facility] 10-03-2022 Functional Status N/A [facility] 09-27-2021 N/A [facility] Clinical Notes 05-21-2019 to 06-04-2024 David Kumari MD - 06/04/2024 2:55 PM Letty Covarrubias RN - 06/04/2024 2:53 PM Minoo Byrne APRN.TEMP RECRUITER - 05/20/2024 2:00 PM Nancy Bowen, RT(R) - 05/07/2024 1:00 PM EDT Note Date & Type Note Facility 06-04-2024 Note HNO ID: [id number] Author: David KUMARI MD Service: ? Author Type: Physician Type: Progress Notes Filed: 06/07/2024 10:34 Note Text: Radiation Oncology - Follow Up [...] The patient presents for routine follow-up . He has had a couple episodes of hematuria, underwent cystoscopy. Since then is doing well. No obvious pathology seen. Doing well. Denies significant problems. PSA HISTORY: PSA (ng/mL) Date Value 05/07/2024 <0.02 11/09/2023 <0.02 05/08/2023 <0.02 01/19/2023 <0.02 ALLERGIES Allergen Reactions Penicillins Rash, Swelling Teramycin [Oxytetra* Unknown leuprolide (ELIGARD, 6 MONTH,) 45 mg injection Inject 45 mg subcutaneously one time only. abiraterone 250 mg tablet Take 4 tablets [...] rectum: none Androgen deprivation: Lupron/abiraterone/prednisone PHYSICAL EXAM: 06/04/24 1453 Pulse: 75 Resp: 16 Temp: 36.2 ?C (97.2 ?F) SpO2: 94% Weight: 118.6 kg (261 lb 7.5 oz) KPS: 100 General Appearance: Alert and oriented. No acute distress. Rectal exam is deferred. ASSESSMENT/PLAN: Prostate adenocarcinoma, initial PSA 7.5, biopsy [place] score 4 + 3 = 7 (grade group 3), pathologic stage T2c, N0, M0, stage IIC [T1-T2, N0, M0, PSA <20, GG 3] (AJCC 8th ed.), s/p prostatectomy January 2016. With recent rising PSA , hematuria and bladder mass status post transurethral resection pathology consistent with metastatic/recurrent adenocarcinoma prostate. Status post pelvic/prostate bed radiation completed 02/02/23 and ADT. 1. Prostate cancer doing well with undetectable PSA. Continue surveillance. He continues ADT including abiraterone and prednisone, and is following with urology and medical oncology. 2. Hematuria. 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 No further episodes. Could consider hyperbaric oxygen should this recur. Signed by: David Kumari MD cc: Shahriar Stephenson [address] [place] [address] No referring provider defined for this encounter. [facility] 06-04-2024 History of Present illness Narrative Radiation Oncology - Follow Up Note PATIENT NAME: Adolph Johns PATIENT DIAGNOSIS: Prostate adenocarcinoma, initial PSA 7.5, biopsy [place] score 4 + 3 = 7 (grade [...] The patient presents for routine follow-up . He has had a couple episodes of hematuria, underwent cystoscopy. Since then is doing well. No obvious pathology seen. Doing well. Denies significant problems. PSA HISTORY: PSA (ng/mL) Date Value 05/07/2024 <0.02 11/09/2023 <0.02 05/08/2023 <0.02 01/19/2023 <0.02 ALLERGIES Allergen Reactions Penicillins Rash, Swelling Teramycin [Oxytetra* Unknown leuprolide (ELIGARD, 6 MONTH,) 45 mg injection Inject 45 mg subcutaneously one time only. abiraterone 250 mg tablet Take 4 tablets [...] rectum: none Androgen deprivation: Lupron/abiraterone/prednisone PHYSICAL EXAM: 06/04/24 1453 Pulse: 75 Resp: 16 Temp: 36.2 C (97.2 F) SpO2: 94% Weight: 118.6 kg (261 lb 7.5 oz) KPS: 100 General Appearance: Alert and oriented. No acute distress. Rectal exam is deferred. ASSESSMENT/PLAN: Prostate adenocarcinoma, initial PSA 7.5, biopsy [place] score 4 + 3 = 7 (grade group 3), pathologic stage T2c, N0, M0, stage IIC [T1-T2, N0, M0, PSA <20, GG 3] (AJCC 8th ed.), s/p prostatectomy January 2016. With recent rising PSA , hematuria and bladder mass status post transurethral resection pathology consistent with metastatic/recurrent adenocarcinoma prostate. Status post pelvic/prostate bed radiation completed 02/02/23 and ADT. 1. Prostate cancer doing well with undetectable PSA. Continue surveillance. He continues ADT including abiraterone and prednisone, and is following with urology and medical oncology. 2. Hematuria. 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 No further episodes. Could consider hyperbaric oxygen should this recur. Signed by: David Kumari MD cc: Shahriar Stephenson [address] [place] [address] No referring provider defined for this encounter. AUA= 7 documented in this encounter [facility] 06-04-2024 Note HNO ID: [id number] Author: LETTY BARAHONA RN Service: ? Author Type: Registered Nurse Type: Progress Notes Filed: 06/07/2024 10:34 Note Text: AUA= 7 [facility] 05-20-2024 History of Present illness Narrative Images from the original note were not included. PATIENT NAME: Adolph Johns DATE: 05/20/2024 PRIMARY CARE PHYSICIAN: Dr. René Stephenson OTHER PHYSICIANS: Dr. Grimes, Dr. Kumari Portions of this encounter note have been copied from the note from 11/16/2023 and has been updated where appropriate, and [...] Eligard every [address] Grimes. Had lupron today and follow-up with Dr. Grimes. Overall feels well today with no particular complaints. No difficulties with urination. Has returned from [place]! Labs stable. MEDICATIONS: abiraterone 250 mg tablet Take 4 [...] seizures or tremors. PHYSICAL EXAM: Vitals: BP 120/72 Pulse 79 Temp 36.4 C (97.6 F) (Temporal) Resp 16 Wt 117.9 kg (259 lb 14.8 oz) SpO2 97% BMI 31.65 kg/m ECOG 0 Exam limited to gross [...] or petechiae. PATHOLOGY: 11/10/2022 Bladder tumor, TURBT ([facility]) Metastatic poorly differentiated adenocarcinoma, consistent with prostate primary. LABORATORY DATA: Hemoglobin (g/dL) Date Value 05/15/2024 12.9 10/29/2020 15.8 Hematocrit (%) Date Value 05/15/2024 39.0 10/29/2020 46.8 WBC (k/uL) Date Value 05/15/2024 8.84 10/29/2020 6.85 Platelet Count (k/uL) Date Value 05/15/2024 160 10/29/2020 162 PSA 11/11/2019 0.06 10/05/2020 0.05 09/14/2021 <0.13 09/26/2022 2.05 12/08/2022 1.37 01/19/2023 <0.02 05/08/2023 <0.02 11/09/2023 <0.02 05/07/2024 <0.02 RADIOLOGY/OTHER STUDIES: 11/28/2022 MRI prostate IMPRESSION: [...] lesion. No comparison study. 10/28/2019 Skeletal survey ([facility]) Subtle oval slightly lytic-appearing lesion within [...] Grimes. I will see him back in November 2024. 2. Monoclonal gammopathy - ICD9: 273.1, ICD10: [...] stage 3 (moderate) Continue management per PCP/nephrology. . Minoo Gill APRN, DISEASE AND INSECT [facility]OL [facility], [facility] Provided at: [place], [place] documented in this encounter [facility] 05-20-2024 Note HNO ID: [id number] Author: MINOO GILL APRN.NORBERTO Service: ? Author Type: Nurse Practitioner Type: Progress Notes Filed: 05/20/2024 16:04 Note Text: PATIENT NAME: Adolph Johns DATE: 05/20/2024 PRIMARY CARE PHYSICIAN: Dr. René Stephenson OTHER PHYSICIANS: Dr. Grimes, Dr. Kumari Portions of this encounter note have been copied from the note from 11/16/2023 and has been updated where appropriate, and [...] Eligard every [address] Grimes. Millicent ca today and follow-up with Dr. Grimes. Overall feels well today with no particular complaints. No difficulties with urination. Has returned from [place]! Labs stable. MEDICATIONS: abiraterone 250 mg tablet Take 4 [...] seizures or tremors. PHYSICAL EXAM: Vitals: BP 120/72 Pulse 79 Temp 36.4 ?C (97.6 ?F) (Temporal) Resp 16 Wt 117.9 kg (259 lb 14.8 oz) SpO2 97% BMI 31.65 kg/m? ECOG 0 Exam limited to gross [...] or petechiae. PATHOLOGY: 11/10/2022 Bladder tumor, TURBT ([facility]) Metastatic poorly differentiated adenocarcinoma, consistent with prostate primary. LABORATORY DATA: Hemoglobin (g/dL) Date Value 05/15/2024 12.9 10/29/2020 15.8 Hematocrit (%) Date Value 05/15/2024 39.0 10/29/2020 46.8 WBC (k/uL) Date Value 05/15/2024 8.84 10/29/2020 6.85 Platelet Count (k/uL) Date Value 05/15/2024 160 10/29/2020 162 PSA 11/11/2019 0.06 10/05/2020 0.05 09/14/2021 <0.13 09/26/2022 2.05 12/08/2022 1.37 01/19/2023 <0.02 05/08/2023 <0.02 11/09/2023 <0.02 05/07/2024 <0.02 RADIOLOGY/OTHER STUDIES: 11/28/2022 MRI prostate IMPRESSION: [...] lesion. No comparison study. 10/28/2019 Skeletal survey ([facility]) Subtle oval slightly lytic-appearing lesion within the right femoral neck, nonspecific and may repr (more content not included)... [facility] 05-20-2024 Note Patient Education Oncology Hormone Suppression Therapy for [...] may be used in the following cases: ??? When prostate cancer has spread too far to other places in the body and cannot be cured by surgery or radiation. ??? When a person has health problems that prevent the use of surgery or radiation. ??? Before radiation to help shrink the size of the cancer and make the radiation treatment more effective. ??? If the prostate cancer remains or comes back following treatment with surgery or radiation. What are the types of hormone suppression therapy? Orchiectomy Orchiectomy, also called surgical castration, is a surgery to remove one or both testicles. The testicles make the two main androgens?testosterone and dihydrotestosterone (DHT). This surgery reduces the levels of testosterone in the blood, leading to decreased androgen production. Medicine therapy Medicine therapy, also called medical or chemical castration, involves taking medicines to keep your body from making or using androgens. Medicines can do this in one of three ways: 1. Reducing androgen production by the testicles. ??? Luteinizing hormone-releasing hormone (LHRH) agonists. These medicines are injected or implanted under your skin to lower the amount of androgens that your testicles make. Depending on the medicine, they can be given monthly or up to every 3 to 6 months. If you take these medicines, you may also be prescribed other medicines to help with side effects. ??? LHRH antagonists. These medicines also work to lower the amount of androgens made in the testicles, but they work faster than LHRH agonist medicines and have less severe side effects. They are given as a monthly injection under the skin, and they are used when prostate cancer is in an advanced stage. ??? Estrogens. These medicines are female hormones that help to reduce androgen production by the testicles. Estrogens are not used as commonly as other types of hormone suppression therapy due to their side effects. However, they may be used if other treatments do not work. 2. Blocking androgen attachment throughout the body. ??? Anti-androgen medicines, also called androgen receptor antagonists, block areas on the body where androgens attach. These are pills that are usually used in combination with other types of hormone suppression therapy, like orchiectomy and other medicines. 3. Blocking androgen production throughout the body. ??? Androgen synthesis inhibitor medicines. These medicines help [...] suppression therapy may cause side effects, including: ??? Hot flashes. ??? Diarrhea and nausea. ??? Itching. ??? Sexual side effects, such as: ? Decrease or lack of sexual desire. ? Decrease in size of the penis or testicles. ? Inability to get an erection (erectile dysfunction, or impotence). ? Breast tenderness or increase in breast size. ??? Fatigue. ??? Weight gain. ??? Anemia. ??? Thinning of the bones (osteoporosis) and loss of muscle mass. ??? Depression, mood swings, and trouble with thinking [...] same time. Treatments may be combined to: ??? Help with side effects. ??? Treat advanced cancer. Where to find more information ??? [place] [employer]: www.cancer.org ??? [employer] [place]: www.cancer.gov Contact a health care provider if: ??? You have pain or side effects that do not get better with treatment. ??? You have trouble urinating. ??? You have new side effects that do not go away. Get help right away if: ??? You have severe chest pain. ??? You have trouble breathing. ??? You have an irregular heartbeat. ??? You have numbness or paralysis in the lower half of your body. ??? You are confused. ??? You (more content not included)... [facility] 05-07-2024 History of Present illness Narrative Radiology Service Progress Note PATIENT NAME: Adolph Johns DATE OF SERVICE: May 07, 2024 TIME: 1:20 PM PATIENT IDENTITY VERIFICATION COMPLETED USING TWO (2) IDENTIFIERS: Name and Date of confirmed by patient verbally. FALL SCREENING: Has the patient had 2 falls in the last year or 1 fall with injury or currently using an Ambulatory Assistive Device (Walker, Cane, Wheelchair, Crutches, etc.)? No PATIENT GENDER DATA: Assigned male at PATIENT RELEVANT IMPLANT DATA REVIEWED: Not Applicable PATIENT PRESENTS WITH AN IMPLANTABLE OR ATTACHED [place]SE LABORER: No RADIOLOGY DEPARTMENT: General X-ray: Exam(s) Completed: Abdomen X-Ray: Abdomen PERIPHERAL IV DATA: Not applicable SIGNED BY: RT Jace(Alivia) May 07, 2024 1:20 PM documented in this encounter [facility] 05-07-2024 Note HNO ID: [id number] Author: NANCY SAENZ RT(R) Service: ? Author Type: Technologist Type: Progress Notes Filed: 05/07/2024 13:20 Note Text: Radiology Service Progress Note PATIENT NAME: Adolph Johns DATE OF SERVICE: May 07, 2024 TIME: 1:20 PM PATIENT IDENTITY VERIFICATION COMPLETED USING TWO (2) IDENTIFIERS: Name and Date of confirmed by patient verbally. FALL SCREENING: Has the patient had 2 falls in the last year or 1 fall with injury or currently using an Ambulatory Assistive Device (Walker, Cane, Wheelchair, Crutches, etc.)? No PATIENT GENDER DATA: Assigned male at PATIENT RELEVANT IMPLANT DATA REVIEWED: Not Applicable PATIENT PRESENTS WITH AN IMPLANTABLE OR ATTACHED MALTHOUSE LABORER: No RADIOLOGY DEPARTMENT: General X-ray: Exam(s) Completed: Abdomen X-Ray: Abdomen PERIPHERAL IV DATA: Not applicable SIGNED BY: RT Jace(Alivia) May 07, 2024 1:20 PM [facility] 03-04-2024 Hospital Discharge instructions Patient Education 03/04/2024 10:50:37 Cystoscopy Cystoscopy Cystoscopy is a procedure that [...] including vitamins, herbs, eye drops, creams, and nfou-ick-yuaydel medicines. Any problems you or family members [...] provider tells you to take them. Taking jizc-osi-wmaatjj medicines, vitamins, herbs, and supplements. Tests You [...] Follow these instructions at home: Medicines Take rurj-xta-pmxftjf and prescription medicines only as told by [...] provider. Document Revised: 10/06/2021 Document Reviewed: 09/04/2020 Remark Patient Education 2023 [employer]. 03/04/2024 10:49:40 Prostate Cancer Screening Prostate Cancer Screening Prostate cancer screening is testing that is done to check for the presence of prostate cancer in men. The prostate gland is a walnut-sized gland that is located below the bladder and in front of the rectum in males. The function of the prostate is to add fluid to semen during ejaculation. Prostate cancer is one of the most common types of cancer in men. Who should have prostate cancer screening? Screening recommendations vary based on age and other risk factors, as well as between the professional organizations who make the recommendations. In general, screening is recommended if: You are age 50 to 70 and have an average risk for prostate cancer. You should talk with your health care provider about your need for screening and how often screening should be done. Because most prostate cancers are slow growing and will not cause , screening in this age group is generally reserved for men who have a 10- to 15-year life expectancy. You are younger than age 50, and you have these risk factors: ?Having a father, brother, or uncle who has been diagnosed with prostate cancer. The risk is higher if your family member's cancer occurred at an early age or if you have multiple family members with prostate cancer at an early age. ?Being a male who is Black or is of [place] or sub-Saharan descent. In general, screening is not recommended if: You are younger than age 40. You are between the ages of 40 and 49 and you have no risk factors. You are 70 years of age or older. At this age, the risks that screening can cause are greater than the benefits that it may provide. If you are at high risk for prostate cancer, your health care provider may recommend that you have screenings more often or that you start screening at a younger age. How is screening for prostate cancer done? The recommended prostate cancer screening test is a blood test called the prostate-specific antigen (PSA) test. PSA is a protein that is made in the prostate. As you age, your prostate naturally produces more PSA. Abnormally high PSA levels may be caused by: Prostate cancer. An enlarged prostate that is not caused by cancer (benign prostatic hyperplasia, or BPH). This condition is very common in older men. A prostate gland infection (prostatitis) or urinary tract infection. Certain medicines such as male hormones (like testosterone) or other medicines that raise testosterone levels. A rectal exam may be done as part of prostate cancer screening to help provide information about the size of your prostate gland. When a rectal exam is performed, it should be done after the PSA level is drawn to avoid any effect on the results. Depending on the PSA results, you may need more tests, such as: A physical exam to check the size of your prostate gland, if not done as part of screening. Blood and imaging tests. A procedure to remove tissue samples from your prostate gland for testing (biopsy). This is the only way to know for certain if you have prostate cancer. What are the benefits of prostate cancer screening? Screening can help to identify cancer at an early stage, before symptoms start and when the cancer can be treated more easily. There is a small chance that screening may lower your risk of dying from prostate cancer. The chance is small because prostate cancer is a slow-growing cancer, and most men with prostate cancer from a different cause. What are the risks of prostate cancer screening? The main risk of prostate cancer screening is diagnosing and treating prostate cancer that would never have caused any symptoms or problems. This is called overdiagnosisand overtreatment. PSA screening cannot tell you if your PSA is high due to cancer or a different cause. A prostate biopsy is the only procedure to diagnose prostate cancer. Even the results of a biopsy may not tell you if your cancer needs to be treated. Slow-growing prostate cancer may not need any treatment other than monitoring, so diagnosing and treating it may cause unnecessary stress or other side effects. Questions to ask your health care provider When should I start prostate cancer screening? What is my risk for prostate cancer? How often do I need screening? What type of screening tests do I need? How do I get my test results? What do my results mean? Do I need treatment? Where to find more information The [place] [employer]: www.cancer.org [place] [employer]: www.auanet.org Contact a health care provider if: You have difficulty urinating. You have pain when you urinate or ejaculate. You have blood in your urine or semen. You have pain in your back or in the area of your prostate. Summary Prostate cancer is a common type of cancer in men. The prostate gland is located below the bladder and in front of the rectum. This gland adds fluid to semen during ejaculation. Prostate cancer screening may identify cancer at an early stage, when the cancer can be treated more easily and is less likely to have spread to other areas of the body. The prostate-specific antigen (PSA) test is the recommended screening test for prostate cancer, but it has associated risks. Discuss the risks and benefits of prostate cancer screening with your health care provider. If you are age 70 or older, the risks that screening can cause are greater than the benefits that it may provide. This information is not intended to replace advice given to you by your health care provider. Make sure you discuss any questions you have with your health care provider. Document Revised: 07/19/2021 Document Reviewed: 07/19/2021 Remark Patient Education 2023 InStaff. Follow Up Care 02/27/2024 15:41:35 With:CORNELIO ROSARIO, Yosef Bunch, URL Address: [facility] [address], [place] [phone] When: Unknown Comments:Has f/u 05/20/24 w/ PSA and Justin and JOSE, also to schedule cysto [facility] 03-04-2024 Note Patient Education Oncology Prostate Cancer Screening Prostate cancer screening is testing that is done to check for the presence of prostate cancer in men. The prostate gland is a walnut-sized gland that is located below the bladder and in front of the rectum in males. The function of the prostate is to add fluid to semen during ejaculation. Prostate cancer is one of the most common types of cancer in men. Who should have prostate cancer screening? Screening recommendations vary based on age and other risk factors, as well as between the professional organizations who make the recommendations. In general, screening is recommended if: ??? You are age 50 to 70 and have an average risk for prostate cancer. You should talk with your health care provider about your need for screening and how often screening should be done. Because most prostate cancers are slow growing and will not cause , screening in this age group is generally reserved for men who have a 10- to 15-year life expectancy. ??? You are younger than age 50, and you have these risk factors: ? Having a father, brother, or uncle who has been diagnosed with prostate cancer. The risk is higher if your family member's cancer occurred at an early age or if you have multiple family members with prostate cancer at an early age. ? Being a male who is Black or is of [place] or sub-Saharan descent. In general, screening is not recommended if: ??? You are younger than age 40. ??? You are between the ages of 40 and 49 and you have no risk factors. ??? You are 70 years of age or older. At this age, the risks that screening can cause are greater than the benefits that it may provide. If you are at high risk for prostate cancer, your health care provider may recommend that you have screenings more often or that you start screening at a younger age. How is screening for prostate cancer done? The recommended prostate cancer screening test is a blood test called the prostate-specific antigen (PSA) test. PSA is a protein that is made in the prostate. As you age, your prostate naturally produces more PSA. Abnormally high PSA levels may be caused by: ??? Prostate cancer. ??? An enlarged prostate that is not caused by cancer (benign prostatic hyperplasia, or BPH). This condition is very common in older men. ??? A prostate gland infection (prostatitis) or urinary tract infection. ??? Certain medicines such as male hormones (like testosterone) or other medicines that raise testosterone levels. A rectal exam may be done as part of prostate cancer screening to help provide information about the size of your prostate gland. When a rectal exam is performed, it should be done after the PSA level is drawn to avoid any effect on the results. Depending on the PSA results, you may need more tests, such as: ??? A physical exam to check the size of your prostate gland, if not done as part of screening. ??? Blood and imaging tests. ??? A procedure to remove tissue samples from your prostate gland for testing (biopsy). This is the only way to know for certain if you have prostate cancer. What are the benefits of prostate cancer screening? Screening can help to identify cancer at an early stage, before symptoms start and when the cancer can be treated more easily. ??? There is a small chance that screening may lower your risk of dying from prostate cancer. The chance is small because prostate cancer is a slow-growing cancer, and most men with prostate cancer from a different cause. What are the risks of prostate cancer screening? The main risk of prostate cancer screening is diagnosing and treating prostate cancer that would never have caused any symptoms or problems. This is called overdiagnosisand overtreatment. PSA screening cannot tell you if your PSA is high due to cancer or a different cause. A prostate biopsy is the only procedure to diagnose prostate cancer. Even the results of a biopsy may not tell you if your cancer needs to be treated. Slow-growing prostate cancer may not need any treatment other than monitoring, so diagnosing and treating it may cause unnecessary stress or other side effects. Questions to ask your health care provider ??? When should I start prostate cancer screening? What is my risk for prostate cancer? How often do I need screening? What type of screening tests do I need? How do I get my test results? What do my results mean? Do I need treatment? Where to find more information ??? [employer] [place] [employer]: www.cancer.org ??? [place] [employer]: www.auanet.org Contact a health care provider if: ??? You have difficulty urinating. ??? You have pain when you urinate or ejaculate. ??? You have blood in your urine or semen. ??? You have pain in your back or in the area of your prostate. Summary ??? Prostate cancer is a common type of cancer in men. The prostate gland (more content not included)... [facility] 02-01-2024 Note Echocardiology Procedure Exam Date/Time Accession # Ordering Dr. Decker Transthoracic w/ 01/30/2024 11:56 EST [id number] Bob ROSARIO, Meño Eckert CPT code 66283 C8929 Reason for Exam (Echo Transthoracic w/ Contrast) Abnormal ECG, Chest pain R94.31;Other (please specify) Report [facility] [address] [place] [address] Adult Echocardiogram Report Name: GONZÁLEZ JOHNSDERECK Mart Study Date: 01/30/2024 10:54 AM BP: 137/84 mmHg Patient Location: [facility] [place] [place] Ambulatory(s) [facility] [place] [place] HR: 80 : 1945 Gender: Male Height: 76 in Age: 78 yrs Ethnicity: T Weight: 262 lb Reason For Study: Abnormal ECG BSA: 2.5 m2 History: HTN,Prostate/Bladder Ca Ordering Physician: Bob^Meño Referring Physician: Mñeo Rojas Performed By: Yojana Rios, POLO, RVT [...] Reji Holloway MD Transcribed by: NETTE Technologist: BASIA Mancia [facility] 01-19-2024 History of Present illness Narrative [...] TO CHANGE TRACKING LOCATION MS BLAS 10/29/2020 8972 P.O.C.T. RESULTS: POC done: Yes, See Lab Tab January 19, 2024 TREATMENT: N/A IV SITE: Ambulatory: A peripheral IV was started in the Right hand with a Angio cath: 20 gauge. IV SITE APPEARANCE: Clean,Dry and Intact SIGNATURE: Blayne Mosqueda RN PATIENT NAME: Adolph Johns DATE: January 19, 2024 TIME: 8:37 AM documented in this encounter [facility] 01-19-2024 Note HNO ID: [id number] Author: BLAYNE MOSQUEDA RN Service: ? Author [...] TO CHANGE TRACKING LOCATION MS BLAS 10/29/2020 2875 P.O.C.T. RESULTS: POC done: Yes, See Lab Tab January 19, 2024 TREATMENT: N/A IV SITE: Ambulatory: A peripheral IV was started in the Right hand with a Angio cath: 20 gauge. IV SITE APPEARANCE: Clean,Dry and Intact SIGNATURE: Blayne Mosqueda RN PATIENT NAME: Adolph Johns DATE: January 19, 2024 TIME: 8:37 AM [facility] 01-10-2024 Hospital Discharge instructions Patient Education 01/10/2024 [...] Follow these instructions at home: Medicines Take qwwi-qdz-jsipnju and prescription medicines only as told by [...] to keep your urine pale yellow. ?Take ywmw-vjk-uboxsos or prescription medicines. ?Eat foods that are [...] and pain in your lower abdomen. Take dema-pbp-eknaoca and prescription medicines only as told by [...] provider. Document Revised: 01/28/2022 Document Reviewed: 01/28/2022 Remark Patient Education 2023 InStaff. 01/10/2024 13:10:32 Transurethral Resection of Bladder Tumor [...] including vitamins, herbs, eye drops, creams, and xygf-ywr-xaywdks medicines. Any problems you or family members [...] provider tells you to take them. Taking ukox-pvd-pniutqo medicines, vitamins, herbs, and supplements. General instructions [...] provider. Document Revised: 01/28/2022 Document Reviewed: 01/28/2022 Remark Patient Education 2023 InStaff. Follow Up Care 01/08/2024 10:29:10 With:CORNELIO ROSARIO, Yosef Bunch, URL Address: [facility] [address] , [place] [address]- When: Unknown [facility] 01-10-2024 Note Patient Education Oncology Transurethral Resection [...] these instructions at home: Medicines ??? Take unoy-jam-qqfkysc and prescription medicines only as told by [...] keep your urine pale yellow. ? Take sskv-fyg-vjotaoo or prescription medicines. ? Eat foods that [...] pain in your lower abdomen. ??? Take zrqc-nnx-snozcyx and prescription medicines only as told by [...] your drainage bag. (more content not included)... [facility] 01-08-2024 Hospital Discharge instructions Patient Education 01/08/2024 [...] including vitamins, herbs, eye drops, creams, and emly-njk-fkuarsz medicines. Any problems you or family members [...] provider tells you to take them. Taking ekls-gzr-uxiueki medicines, vitamins, herbs, and supplements. Tests You [...] Follow these instructions at home: Medicines Take yqfu-tgs-quajtbx and prescription medicines only as told by [...] provider. Document Revised: 10/06/2021 Document Reviewed: 09/04/2020 Remark Patient Education 2023 InStaff. 01/08/2024 10:14:09 Hematuria, Adult Hematuria, Adult Hematuria [...] Follow these instructions at home: Medicines Take evww-haw-gbvgqyv and prescription medicines only as told by [...] or the blood stops without treatment. Take ttex-fgm-coipfpb and prescription medicines only as told by your health care provider. Drink enough fluid to keep your urine pale yellow. This information is not intended to replace advice given to you by your health care provider. Make sure you discuss any questions you have with your health care provider. Document Revised: 09/23/2020 Document Reviewed: 09/23/2020 Remark Patient Education 2023 InStaff. Follow Up Care 01/01/2024 08:46:40 With:CORNELIO ROSARIO, Yosef Bunch, URL Address: [facility] [address] , [place] [address]- [phone] When: Unknown [facility] 01-08-2024 Note Patient Education Urology Cystoscopy Cystoscopy [...] including vitamins, herbs, eye drops, creams, and tler-rsa-lwfzpgg medicines. ??? Any problems you or family [...] tells you to take them. ??? Taking xgom-kaj-jsporup medicines, vitamins, herbs, and supplements. Tests You [...] these instructions at home: Medicines ??? Take dojq-nfa-yznejlp and prescription medicines only as told by [...] (biopsy) during your (more content not included)... [facility] 01-01-2024 Telephone encounter Note Pt returned call and was notified. Peggy Lakhani RN [facility] 01-01-2024 Miscellaneous Notes Pt returned call and was notified. Peggy Lakhani RN I left a message for Farfan to call the office. Letty Barahona RN Attempted to call patient with Dr. Kumari's recommendation but there was no answer. Letty Barahona RN Adolph left a message stating [...] needs to order CT scans. Please advise. Letty Barahona RN documented in this encounter [facility] 01-01-2024 Telephone encounter Note I left a message for Adolph to call the office. Letty Barahona RN [facility] 12-29-2023 Telephone encounter Note Attempted to call patient with Dr. Kumari's recommendation but there was no answer. Letty Barahona RN [facility] 12-29-2023 Telephone encounter Note Adolph left a [...] needs to order CT scans. Please advise. Letty Barahona RN [facility] 11-24-2023 Hospital Discharge instructions Patient Education 11/24/2023 [...] similar to normal prostate cells (moderately differentiated). [place] 8, 9, or 10: This indicates that [...] stress of having cancer. General instructions Take tuhy-zmr-dyxytps and prescription medicines only as told by your health care provider. If you have to go to the hospital, notify your cancer specialist (oncologist). Keep all follow-up visits. This is important. Where to find more information [place] [employer] Cancer Society: www.cancer.org [place] Society of Clinical Oncology: www.cancer.net National Cancer [place]: www.cancer.gov Contact a health care provider if: [...] provider. Document Revised: 04/21/2021 Document Reviewed: 04/21/2021 Remark Patient Education 2023 InStaff. Follow Up Care 05/22/2023 12:03:30 With:CORNELIO ROSARIO, Yosef Bunch, URL Address: [address] [place] [phone]- When: Unknown [facility] 11-24-2023 Note Patient Education Oncology Prostate Cancer [...] likelihood that the cancer will spread. ? [place] 6 or lower: This indicates that the cancer cells look similar to normal prostate cells (well differentiated). ? [place] 7: This indicates that the cancer cells look somewhat similar to normal prostate cells (moderately differentiated). ? Coreen 8, 9, or 10: This indicates [...] the prostate gla (more content not included)... [facility] 11-16-2023 History of Present illness Narrative Radiation Oncology - Follow Up Note PATIENT NAME: Adolph Johns PATIENT DIAGNOSIS: Prostate adenocarcinoma, initial PSA 7.5, biopsy [place] score 4 + 3 = 7 (grade [...] once daily. REVIEW OF SYSTEMS: D/N = 4-6/1 Hematuria: none Dysuria: none Incontinence: none Urgency: [...] ASSESSMENT/PLAN: Prostate adenocarcinoma, initial PSA 7.5, biopsy [place] score 4 + 3 = 7 (grade [...] by: David Kumari MD cc: Shahriar Stephenson [address] [place] [id number] No referring provider defined for this encounter. documented in this encounter [facility] 11-16-2023 Note HNO ID: [id number] Author: David KUMARI MD Service: ? Author [...] David Kumari MD cc: Shahriar Stephenson [address] [place] [address] No referring provider defined for this encounter. [facility] 11-16-2023 Nurse Note JACK Lakhani RN [facility] 11-16-2023 Nurse Note JACK Lakhani RN documented in this encounter [facility] 11-15-2023 Note HNO ID: [id number] Author: NICOLAS HWANG MD Service: ? Author [...] with urination. He plans to travel to [place] next week where he plans to spend [...] or petechiae. PATHOLOGY: 11/10/2022 Bladder tumor, TURBT ([facility]) Metastatic poorly differentiated adenocarcinoma, consistent with [...] lesion. No comparison study. 10/28/2019 Skeletal survey ([facility]) Subtle oval slightly lytic-appearing lesion within the right femoral neck, nonspecific and may represent summation ar (more content not included)... [facility] 11-15-2023 History of Present illness Narrative PATIENT [...] with urination. He plans to travel to [place] next week where he plans to spend [...] or petechiae. PATHOLOGY: 11/10/2022 Bladder tumor, TURBT ([facility]) Metastatic poorly differentiated adenocarcinoma, consistent with [...] lesion. No comparison study. 10/28/2019 Skeletal survey ([facility]) Subtle oval slightly lytic-appearing lesion within [...] in May 2024 after he returns from [place] to [place]. 2. Monoclonal gammopathy - ICD9: 273.1, ICD10: [...] Nicolas Hwang MD documented in this encounter [facility] 10-23-2023 Note Patient Education Nutrition BMI for [...] for Disease Control and Prevention: cdc.gov ? [place] [employer] Heart Association: heart.org ? National Heart, Lung, and Blood [place]: nhlbi.nih.gov This information is not intended to replace advice given to you by your health care provider. Make sure you discuss any questions you have with your health care provider. Document Revised: 10/13/2022 Document Reviewed: 10/06/2022 Remark Patient Education ? 2023 [employer] DASH Eating Plan DASH stands for Dietary [...] vegetables each day (more content not included)... [facility] 05-22-2023 Hospital Discharge instructions Patient Education 05/22/2023 [...] advanced cancer. Where to find more information [place] [employer] Cancer Society: www.cancer.org National Cancer [place]: www.cancer.gov Contact a health care provider if: [...] provider. Document Revised: 05/06/2021 Document Reviewed: 05/06/2021 Remark Patient Education 2022 InStaff. Follow Up Care 12/02/2022 13:08:27 With:CORNELIO ROSARIO, Yosef Bunch, URL Address: [facility] [address] , [place] [phone] When: Unknown Comments:6 mos w/ PSA (gets level from [facility]) [facility] [place] 05-18-2023 History of Present illness Narrative Radiation [...] David Kumari MD cc: Shahriar Stephenson [address] [place] [address] No referring provider defined for this encounter. documented in this encounter [facility] 05-18-2023 Nurse Note AUA 5 Peggy Lakhani, SINDI documented in this encounter [facility] 05-18-2023 History of Present illness Narrative PATIENT [...] or petechiae. PATHOLOGY: 11/10/2022 Bladder tumor, TURBT ([facility]) Metastatic poorly differentiated adenocarcinoma, consistent with [...] lesion. No comparison study. 10/28/2019 Skeletal survey ([facility]) Subtle oval slightly lytic-appearing lesion within [...] (moderate) Continue management per PCP/nephrology. Elio Payne APRN.NORBERTO CC: Dr. Cook, Dr. Grimes I spent a total of 30 minutes on the date of the service which included preparing to see the patient, aejz-ll-fgni patient care, completing clinical documentation, obtaining and/or reviewing separately obtained history, performing a medically appropriate examination, counseling and educating the patient/family/caregiver, ordering medications, tests, or procedures, independently interpreting results (not separately reported), and communicating results to the patient/family/caregiver. documented in this encounter [facility] 05-08-2023 Miscellaneous Notes Patient coming in 05/18/23 for follow up with labs. Please add lab orders. Bettina El MA documented in this encounter [facility] 01-26-2023 History of Present illness Narrative Boost set up films reviewed documented in this encounter [facility] 01-17-2023 History of Present illness Narrative Boost reese reviewed. documented in this encounter [facility] 01-16-2023 History of Present illness Narrative Images from the original note were not included. Radiation Oncology - On Treatment Review (OTR) Note PATIENT NAME: Adolph Johns PATIENT DIAGNOSIS: Prostate adenocarcinoma, initial PSA 7.5, biopsy [place] score 4 + 3 = 7 (grade [...] David Kumari MD documented in this encounter [facility] 01-11-2023 History of Present illness Narrative ADOLPH JOHNS [id number] 01/11/2023 [facility] Department of Radiation Oncology Treatment Planning Note [...] M.D. 31:35 PM documented in this encounter [facility] 01-09-2023 Miscellaneous Notes I notified Adolph of Dr. Hwang's recommendation to contact his Dr. Stephenson, PCP, abut his hypokalemia. Adoplh will call PCP as recommended. He denies further questions at this time. I faxed 01/05/[address] Stephenson. 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 Perhaps best to follow-up with his PCP for recommendations. Nhan El Adolph is here for radiation therapy and [...] with Dr. Hwang/Elio is 05/18/23. Please advise. Letty Barahona RN documented in this encounter [facility] 01-06-2023 Miscellaneous Notes The following approved medication requests have been transmitted electronically. Requested Prescriptions Signed Prescriptions Disp Refills potassium chloride (K-TAB) 10 mEq tablet 30 tablet 3 Sig: Take 1 tablet by mouth once daily. Authorizing Provider: ELIO PAYNE APRN.NORBERTO Mr. Johns notified of low potassium and recommendation to start potassium supplement. Patient in agreement and states that she has started a potassium rich diet. Pt would like script sent to [facility] [place]. Morgan: Please review and sign pending order. Thanks! Jessica Amezquita RN ----- Message from Nicolas Hwang MD sent at 01/06/2023 7:58 AM EST ----- Please inform the patient that his potassium is slightly low. Possibly from his Zestoretic or abiraterone/prednisone. Would recommend potassium supplement with 10 mEq 1 daily. documented in this encounter [facility] 01-05-2023 History of Present illness Narrative PATIENT [...] visit his bladder biopsy was reviewed by [facility] pathology, and the diagnosis of poorly [...] or petechiae. PATHOLOGY: 11/10/2022 Bladder tumor, TURBT ([facility]) Metastatic poorly differentiated adenocarcinoma, consistent with [...] lesion. No comparison study. 10/28/2019 Skeletal survey ([facility]) Subtle oval slightly lytic-appearing lesion within [...] patient plans to spend the winter in [place] after radiation is completed. I will see him back in May 2023 when he returns to [place]. 2. Monoclonal gammopathy - ICD9: 273.1, ICD10: [...] per PCP/nephrology. Nicolas Hwang MD CC: Dr. Cornelio Mccarty documented in this encounter [facility] 01-02-2023 History of Present illness Narrative Radiation Oncology - On Treatment Review (OTR) Note PATIENT NAME: Adolph Johns PATIENT DIAGNOSIS: Prostate adenocarcinoma, initial PSA 7.5, biopsy [place] score 4 + 3 = 7 (grade [...] David Kumari MD documented in this encounter [facility] 12-26-2022 History of Present illness Narrative Radiation Oncology - On Treatment Review (OTR) Note PATIENT NAME: Adolph Johns PATIENT DIAGNOSIS: Prostate adenocarcinoma, initial PSA 7.5, biopsy [place] score 4 + 3 = 7 (grade [...] David Kumari MD documented in this encounter [facility] 12-22-2022 Nurse Note Adolph Johns presents in office today for: Lab Draw only . Ordering Provider: Damien Kumari M.D. Test (s) ordered: CBC Method for obtaining blood: Phlebotomy was performed, accessing left antecubital vein. Needle removed intact. Dressing secured. Patient denies discomfort, dizziness, light-headedness or weakness and left the department without assist. Letty Barahona LPN documented in this encounter [facility] 12-19-2022 Miscellaneous Notes Patient is scheduled for 12/21/2022 at 10:30AM with Dr Leila Evans at [facility]. I called and let him know appt day and time. documented in this encounter [facility] 12-19-2022 History of Present illness Narrative Radiation [...] lesion unrelated we will have him see box maker. Chart and imaging reviewed. Continue radiation as outlined. David Kumari MD documented in this encounter [facility] 12-15-2022 Miscellaneous Notes ORAL ANTI-CANCER AGENTS FOLLOW-UP [...] to call if unable to comply. Nancy Ray, RN documented in this encounter [facility] 12-14-2022 History of Present illness Narrative Radiation [...] David Kumari MD documented in this encounter [facility] 12-08-2022 History of Present illness Narrative ADOLPH JOHNS [id number] 12/08/2022 [facility] Department of Radiation Oncology Treatment Planning Note [...] and [facility]. Electronically Signed Damien Kumari M.D. 33:30 PM documented in this encounter [facility] 12-02-2022 Hospital Discharge instructions Patient Education 12/02/2022 [...] the likelihood that the cancer will spread. [place] 6 or lower: This indicates that the [...] stress of having cancer. General instructions Take gssk-hvb-zxxaaif and prescription medicines only as told by your health care provider. If you have to go to the hospital, notify your cancer specialist (oncologist). Keep all follow-up visits. This is important. Where to find more information [place] [employer] Cancer Society: www.cancer.org [place] Society of Clinical Oncology: www.cancer.net National Cancer [place]: www.cancer.gov Contact a health care provider if: [...] provider. Document Revised: 04/21/2021 Document Reviewed: 04/21/2021 Remark Patient Education 2022 InStaff. 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 Was approved? No Signed by: Letty Barahona LPN documented in this encounter [facility] 11-28-2022 History of Present illness Narrative Radiology [...] 2022 12:01 PM documented in this encounter [facility] 11-18-2022 Hospital Discharge instructions Patient Education 11/18/2022 [...] under a microscope. This is called the [place] score and the total score can range from 6 10, indicating how likely it is that the cancer will spread (metastasize) to other parts of the body. The higher the score, the greater the likelihood that the cancer will spread. [place] 6 or lower: This indicates that the [...] stress of having cancer. General instructions Take ceay-lvl-vtaonup and prescription medicines only as told by your health care provider. If you have to go to the hospital, notify your cancer specialist (oncologist). Keep all follow-up visits. This is important. Where to find more information [place] [employer] Cancer Society: www.cancer.org [place] Society of Clinical Oncology: www.cancer.net National Cancer [place]: www.cancer.gov Contact a health care provider if: [...] provider. Document Revised: 04/21/2021 Document Reviewed: 04/21/2021 Remark Patient Education 2022 InStaff. Follow Up Care 11/01/2022 16:31:02 With:CORNELIO ROSARIO, Yosef Bunch, URL Address: [facility] [address] [place] [address] [phone] When: Unknown [facility] [place] 11-15-2022 History of Present illness Narrative Radiation [...] to discuss treatment options. Patient presented in 2015 with an elevated PSA of 7.5, biopsy showing [place] 7 (4+3) adenocarcinoma. No evidence of metastasis on staging. He underwent nerve sparing radical retropubic prostatectomy and bilateral pelvic lymphadenectomy on 01/07/2016. Pathology revealed adenocarcinoma, [place] 8 (4+4), no evidence of extraprostatic extension, no seminal vesicle invasion, margins uninvolved, perineural invasion was seen, 2 regional lymph nodes removed without evidence of metastasis.[id number] Post prostatectomy PSA undetectable. However PSA has [...] Procedure Laterality Date COLONOSCOPY 2013 RADICAL PROSTATECTOMY FAMILY HISTORY Problem Relation Age [...] by: David Kumari MD cc: Shahriar Stephenson [facility] [address] Yosef R Cornelio [address] [facility] [address] documented in this encounter [facility] 10-28-2022 History of Present illness Narrative RADIOLOGY SERVICE PROGRESS NOTE SERVICE DATE: 10/28/2022 SERVICE TIME: 1:51 PM PATIENT IDENTITY VERIFICATION COMPLETED USING TWO (2) STANDARD IDENTIFIERS: Name and Date of confirmed by patient verbally POST EXAM PIV STATUS: Discontinued PROCEDURE TYPE: NM INJECT: PET/CT BODY SCAN. 10.5 mCi F18 FDG. No other medications given.. ADMINISTRATION TIME: 1245 PATIENT DISCHARGED TO: Ambulatory patient, left SD department area. A Diagnostic radioactive procedure has taken place, with no further precautions necessary other than routine body substance precautions. More information regarding radiation safety can be found using this link: [email or web address] SIGNATURE: RT Jace(R) PATIENT NAME: Adolph Johns DATE: October 28, 2022 TIME: 1:51 PM PAGER/CONTACT #: documented in this encounter [facility] 10-09-2022 Evaluation note Encounter Date Diagnosis Assessment [...] Patient states he did 2 home UTI eaut-ivl-wzrk ter test that were positive for nitrites. Patient appears nontoxic and will be treated for UTI according to his symptoms. Stressed the need for the patient to go to the ER for any worsening fevers, vomiting, abdominal pain, back pain. Patient agrees with this plan. Billetto Other 09-01-2023 Miscellaneous Notes* Telephone Encounter - Brook Ambrosio - 10/07/2022 11:51 AM EDT Patient has been scheduled. Brook Ambrosio * Telephone Encounter - Diana Romero RN - 10/06/2022 1:18 PM EDT PET/Ct Prostate auth approved [id number] from 10-04-22 to 04-02-23 for 1 dos * Telephone Encounter - Diana Romero RN - 10/06/2022 1:01 PM EDT Authorization number: PSMA [id number] Authorization date range: PSMA from 10-04-22 to 04-02-23 for 1 dos Primary Insurance: [employer] Medicare [id number] Diagnosis: Rising PSA after Prostate cancer treatment R97.21 DX Imaging: N/A Pathology: Prostatectomy Labs: 09-26-22 PSA 2.05 09-14-21 PSA <0.13 10-05-20 PSA 0.05 Clinical Notes Reviewed: [facility] Gavino Grant Date of last: Prostatectomy Additional Information: N/A Radiologist Reviewed: N/A Initial/Subsequent: Subsequent Treatment Strategy: 0093 PET Protocol: PSMA Diagnostic Imaging Requested: No Is this a Pretreatment and/or an initial Pet scan: No - Schedule as requested Comments for Conductor Pullman: N/A ROUTE TO SCHEDULERS POOL P PET REFINISHER MC or P NM SPECIAL STUDIES MC * Telephone Encounter - Melodie Auguste - 10/06/2022 11:10 AM EDT This form is used for MAIN CAMPUS APPOINTMENTS ONLY. Is this request for a Main [place] PET scan appointment? Yes: Gear Setter: Melodie Ladd Requesting Person Dr landers (external order scanned in along with auth) Name): Area Code + Phone/Pager: [phone] Who do we call to schedule this appointment? PSMA please route to Lucila saenz in [place] (external orders) Requesting Staff Dr grimes Area Code + Phone/Pager: [phone] PET Orders (A delay in scheduling will result if the orders are not present at time of review): External. Has the External Clinical Order been scanned into [facility]? Yes ADDITIONAL ACTION MAY BE REQUIRED IF [...] file for patient also. Send requests to [facility] documented in this [facility] Hospital Discharge instructions Patient Education 10/03/2022 15:06:33 [...] including vitamins, herbs, eye drops, creams, and mkem-yjp-wqkhqrd medicines. Any problems you or family members [...] provider tells you to take them. Taking hbig-ijs-ruvykfk medicines, vitamins, herbs, and supplements. Tests You [...] Follow these instructions at home: Medicines Take imec-txp-mdtcnyx and prescription medicines only as told by [...] provider. Document Revised: 10/06/2021 Document Reviewed: 09/04/2020 [employer] Patient Education 2022 [employer]. 10/03/2022 15:02:31 Hematuria, Adult Hematuria, Adult Hematuria [...] Follow these instructions at home: Medicines Take pczu-qat-ibqcucx and prescription medicines only as told by [...] or the blood stops without treatment. Take colu-tjo-sppuhwu and prescription medicines only as told by your health care provider. Drink enough fluid to keep your urine pale yellow. This information is not intended to replace advice given to you by your health care provider. Make sure you discuss any questions you have with your health care provider. Document Revised: 09/23/2020 Document Reviewed: 09/23/2020 [employer] Patient Education 2022 [employer]. Follow Up Care 09/27/2021 10:53:03 With:CORNELIO ROSARIO, Yosef Bunch, URL Address: [facility] [address], [place] [address]- [phone] When: Unknown Comments:sched cysto and PSMA PET scan [facility] 04-27-2023 History of Present illness Narrative* Elio Payne APRN.TEMP RECRUITER - 06/02/2022 2:06 PM EDT PATIENT NAME: [...] today. He spent the winter months in [place]. MEDICATIONS: lisinopril-hydrochlorothiazide (PRINZIDE,ZESTORETIC) 10-12.5 mg per tablet [...] lesion. No comparison study. 10/28/2019 Skeletal survey ([facility]) Subtle oval slightly lytic-appearing lesion within [...] (moderate) Continue management per PCP/nephrology. Elio Payne APRN.NORBERTO CC: Dr. Gabriela Nesbitt spent a total of 20 minutes on the date of the service which included preparing to see the patient, ntza-mj-usyy patient care, completing clinical documentation, obtaining and/or reviewing separately obtained history, performing a medically appropriate examination, counseling and educating the pat ient/family/caregiver, ordering medications, tests, or procedures, independently interpreting results (not separately reported), and communicating results to the patient/family/caregiver. documented in this encounterSelect [facility]10-03-2022 Miscellaneous Notes* Telephone Encounter - Shima Penny [...] back as scheduled. Thanks, documented in this encounterSelect [facility]09-27-2022 History of Present illness Narrative* Nicolas Hwang [...] involvinghis right groin area. FNA obtained 08/16/2021 ([facility]) revealed changes suggestive of fatnecrosis and [...] lesion. No comparison study. 10/28/2019 Skeletal survey ([facility]) Subtle oval slightly lytic-appearing lesion within [...] in 7 months (after he returns from [place]). We will then see him every 6 [...] MD CC: Dr. Cook documented in this encounterSelect [facility]08-22-2022 Hospital Discharge instructions Patient Education 09/27/2021 10:40:14 [...] including vitamins, herbs, eye drops, creams, and olwl-qmd-vsdyrpz medicines. This also includes: ?Medicines to assist [...] 02/25/2005 Document Revised: 01/05/2018 Document Reviewed: 10/30/2017 Remark Patient Education 2020 [employer] 09/27/2021 10:40:10 Calorie Counting for Weight Loss [...] 01/23/2006 Document Revised: 10/12/2018 Document Reviewed: 12/23/2016 [employer] Patient Education 2020 [employer]. Follow Up Care 10/22/2020 15:01:04 With:CORNELIO ROSARIO, Yosef Bunch, URL Address: [address] [place], [place] [id number] Business (1) When:Within 1 Year(s) Comments:w/PSA [facility] 06-27-2022 Miscellaneous Notes* Telephone Encounter - Nicolas Hwang MD - 08/02/2021 5:00 PM EDT The patient was found to have a cystic mass in his groin. He will undergo an ultrasound-guided biopsy at [facility]. Dr. Chanel will inform me of the results. If benign I will see him back in Octoberas scheduled. If malignant I will see him after the biopsy to discuss further work-up and treatment. Thanks, BRKris * Telephone Encounter - Melodie Patel Sec - 08/02/2021 1:42 PM EDT Please call Dr Chanel regarding [place] Phone number is [phone] thanks! documented in this encounterSelect [facility]04-08-2022 Miscellaneous Notes* Telephone Encounter - Pretty Aparicio [...] I would recommend continued follow-up as planned. Thanks, BRKris documented in this encounterSelect [facility]04-08-2022 Miscellaneous Notes* Telephone Encounter - Pretty Aparicio [...] I would recommend continued follow-up as planned. Thanks, GABI documented in this encounterSelect [facility]04-01-2022 Miscellaneous Notes* Telephone Encounter - Bettina Sargent - 10/21/2021 1:38 PM EDT Patient scheduled to see you on Monday11/02/21 for follow up with labs. Please add lab orders. Thanks. Bettina Sargent MA documented in this encounterSelect [facility]10-08-2021 Evaluation note* Encounter Date Diagnosis Assessment Notes [...] Patient care instructions given in writting by [facility] Care At Home document. [place] [facility] Other 04-14-2020 Evaluation + Plan note Future Appointments Appointment Date:01/30/2024 11:00:00 AM Scheduled Provider: Location:.[facility] Appointment Type:CV Echo () Appointment Date:05/20/2024 12:45:00 PM Scheduled Provider:[facility] Type:[facility]O Office Visit Appointment Date:10/24/2024 11:00:00 AM Scheduled Provider: Location:[facility] Appointment Type:FM Medicare Wellness Subsequent Future Scheduled Tests Radiology* Echo Transthoracic Complete 01/30/24 [facility] Evaluation + Plan note Future Appointments Appointment Date:09/26/2022 10:15:00 AM Scheduled Provider:Yosef GRIMES MD Location:[facility] Appointment Type:URO Office Visit Diagnostic Tests Pending * PSA Total 09/27/21 [facility] evaluation + Plan note Future Appointments Appointment Date:10/11/2022 01:00:00 PM Scheduled Provider: Location:[facility] Appointment Type:FM Medicare Wellness Subsequent [facility] evaluation + Plan note Future Appointments Appointment Date:11/18/2022 11:00:00 AM Scheduled Provider:Yosef GRIMES MD Location:[facility] Appointment Type:URO Office Visit Appointment Date:10/13/2023 01:00:00 PM Scheduled Provider: Location:[facility] Appointment Type: Medicare Wellness Subsequent Diagnostic Tests Pending * UroVysion Fish and Urine Cyto ([facility]) 11/01/22 [facility] Future Appointments Appointment Date:10/13/2023 01:00:00 PM Scheduled Provider: Location:[facility] Appointment Type:FM Medicare Wellness Subsequent [facility] evaluation + Plan note Future Appointments Appointment Date:05/22/2023 11:15:00 AM Scheduled Provider:Yosef GRIMES MD [facility] App[facility] Type:URO Office Visit Appointment Date:10/13/2023 01:00:00 PM Scheduled Provider: Location:[facility] Appointment Type:FM Medicare Wellness Subsequent Diagnostic Tests Pending * PSA Total 04/07/23 [facility] evaluation + Plan note Future Appointments Appointment Date:10/23/2023 01:00:00 PM Scheduled Provider: Location:[facility] Appointment Type:FM Medicare Wellness Subsequent Appointment Date:11/24/2023 11:00:00 AM Scheduled Provider:Yosef GRIMES MD [facility] Type:URO Office Visit [facility] evaluation + Plan note Future Appointments Appointment Date:05/20/2024 12:45:00 PM Scheduled Provider:Yosef GRIMES MD [facility] App[facility] Type:URO Office Visit Appointment Date:10/24/2024 11:00:00 AM Scheduled Provider: Location:[facility] Appointment Type:FM Medicare Wellness Subsequent Diagnostic Tests Pending * PSA Total 03/09/24 [facility] evaluation + Plan note Future Appointments Appointment Date:01/08/2024 09:00:00 AM Scheduled Provider:Yosef GRIMES MD [facility] App[facility] Type:URO Office Visit Appointment Date:05/20/2024 12:45:00 PM Scheduled Provider:[facility] Type:[facility] Office Visit Appointment Date:10/24/2024 11:00:00 AM Scheduled Provider: Location:[facility] Appointment Type:FM Medicare Wellness Subsequent [facility] evaluation + Plan note Future Appointments Appointment Date:01/08/2024 09:00:00 AM Scheduled Provider:Yosef GRIMES MD [facility] Type:URO Office Visit Appointment Date:05/20/2024 12:45:00 PM Scheduled Provider:Yosef GRIMES MD Location:[facility] [place] Appointment Type:URO Office Visit Appointment Date:10/24/2024 11:00:00 AM Scheduled Provider: Location:[facility] Appointment Type: Medicare Wellness Subsequent Diagnostic Tests Pending * Urine Culture 01/01/24 [facility] evaluation + Plan note Future Appointments Appointment Date:01/10/2024 01:00:00 PM Scheduled Provider:Yosef GRIMES MD Location:[facility] [place] Appointment Type:URO Procedure 15 min Appointment Date:05/20/2024 12:45:00 PM Scheduled Provider:Yosef GRIMES MD [facility] Type:URO Office Visit Appointment Date:10/24/2024 11:00:00 AM Scheduled Provider: Location:[facility] Appointment Type:FM Medicare Wellness Subsequent Diagnostic Tests Pending * Urine Cytology ([facility]) 01/08/24 [facility] evaluation + Plan note Future Appointments Appointment Date:01/10/2024 01:00:00 PM Scheduled Provider:Yosef GRIMES MD Location:[facility] [place] Appointment Type:URO Procedure 15 min Appointment Date:05/20/2024 12:45:00 PM Scheduled Provider:Yosef GRIMES MD [facility] Type:URO Office Visit Appointment Date:10/24/2024 11:00:00 AM Scheduled Provider: Location:[facility] Appointment Type:FM Medicare Wellness Subsequent [facility] evaluation + Plan note Future Appointments Appointment Date:01/26/2024 08:45:00 AM Scheduled Provider:Yosef GRIMES MD [facility] Type:URO Office Visit Appointment Date:05/20/2024 12:45:00 PM Scheduled Provider:Yosef GRIMES MD Location:[facility] [place] Appointment Type:URO Office Visit Appointment Date:10/24/2024 11:00:00 AM Scheduled [facility] Medicare Wellness Subsequent [facility] evaluation + Plan note Future Appointments Appointment Date:02/28/2024 08:45:00 AM Scheduled Provider:Yosef GRIMES MD Location:[facility] [place] Appointment Type:URO Office Visit Appointment Date:05/20/2024 12:45:00 PM Scheduled Provider:Yosef GRIMES MD [facility] Type:URO Office Visit Appointment Date:10/24/2024 11:00:00 AM Scheduled Provider: [facility] Type: Medicare Wellness [facility] evaluation + Plan note Future Appointments Appointment Date:03/04/2024 09:30:00 AM Scheduled Provider:Yosef GRIMES MD Location:[facility] [place] Appointment Type:URO Office Visit Appointment Date:05/20/2024 12:45:00 PM Scheduled Provider:Yosef GRIMES MD [facility] Type:URO Office Visit Appointment Date:10/24/2024 11:00:00 AM Scheduled Provider: [facility] App[facility] Type: Medicare Wellness Subsequent [facility] Evaluation + Plan note Future Appointments Appointment Date:05/20/2024 12:45:00 PM Scheduled Provider:Yosef GRIMES MD [facility] Type:URO Office Visit Appointment Date:10/24/2024 11:00:00 AM Scheduled Provider: [facility] Type: Medicare Wellness [facility] evaluation note* Diagnosis Monoclonal gammopathy- Primary Monoclonal paraproteinemia Prostate cancer (HCC) Malignant neoplasm of prostate documented in this encounter [facility] note* Diagnosis Monoclonal gammopathy- Primary Monoclonal paraproteinemia documented in this encounter [facility] note* Diagnosis Monoclonal gammopathy- Primary Monoclonal paraproteinemia documented in this encounter [facility] note* Diagnosis Monoclonal gammopathy- Primary Monoclonal paraproteinemia Prostate cancer (HCC) Malignant neoplasm of prostate Essential hypertension Unspecified essential hypertension Chronic renal insufficiency, stage 3 (moderate) (HCC) [facility] noteNo assessment information availableTr[facility] Work Phone: Evaluation note* Diagnosis Malignant neoplasm [...] Unspecified essential hypertension [facility] Diagnosis Malignant neoplasm of prostate (HCC)- Primary Malignant neoplasm of prostate [facility]* Diagnosis Prostate cancer (HCC)- Primary Malignant neoplasm of prostate Monoclonal gammopathy Monoclonal paraproteinemia documented in this encounter [facility]* Diagnosis Malignant neoplasm of prostate (HCC)- Primary Malignant neoplasm of prostate [facility]* Diagnosis Monoclonal gammopathy- Primary Monoclonal paraproteinemia Prostate cancer (HCC) Malignant neoplasm of prostate Chronic renal insufficiency, stage 3 (moderate) (HCC) documented in this encounter [facility] general Narrative - Reported* Type Description Date Medical History hypertension Medical History HYPONATREMIA Medical History ACUTE CHRONIC RENAL FAILURE Medical History PLEURISY Surgical History cancer, skin Lip and Hand 1999 Surgical History PROSTATECTOMY Surgical History SKIN LESIONS REMOVED X2 09/2020 Hospitalization History SEE ABOVE Hospitalization History PNEUMONIA AT AGE 7 [employer] Other Hospital course Narrative No data available for this section [facility] Discharge instructions No data available for this section [facility] No data available for this section [facility] Purpose Family History No Family History Records Found Relationship Condition Age at Onset Recorded Date/T cassius brother Diabetes mellitus Unknown father Unknown Malignant neoplasm Unknown mother Heart disease Unknown Family history of blood clots Unknown Hypertension Unknown Unknown Advance Directives No Advanced Directives Records Found Advance Directive Response Recorded Date/ Time Advance Directives No October 7:07am Reason for Referral Specialty Diagnoses / Procedures Referred By Ana leach Referred To Contact Dermatology Diagnoses Skin lesion of right arm History of squamous cell carcinoma Procedures CONSULT TO DERMATOLOGY OFFICE/OUTPATIENT [facility] 60-74 MINUTES David Kumari MD [address] [place] [address] [place] [address] Referral ID Status Reason Start Date Expiration Date Visits Requested Visits Authorized [id number] Pending Review PCP Requested Referral 3 12/19/2023 1 1 Specialty Diagnoses / Procedures Referred By Ana leach Referred To Contact Diagnoses Malignant neoplasm of prostate (HCC) Procedures CT SIM PLANNING RADIATION ONCOLOGY THER RAD SIMULAJ-AIDED FIELD SETTING COMPLEX David Kumari MD [address] [place] [address] Referral ID Status Reason Start Date Expiration Date Visits Requested Visits Authorized [id number] Pending Review PCP Requested Referral 12/15/2022 03/08/2023 1 1 Specialty Diagnoses / Procedures Referred By Contac t Referred To Contact MR IMAGING Diagnoses Malignant neoplasm of prostate (HCC) Procedures MRI PROSTATE WO/W IVCON MRI PELVIS W/O & W/CONTRAST MATERIAL David Kumari MD [address] [place] [address] [place] [address] Referral ID Status Reason Start Date Expiration Date Visits Requested Visits Authorized [id number] Pending Review Auto-Generat ed Referral 3 12/15/2023 1 1 Additional Source Comments Source Comments (unrecognize d section and content) In the event this informatio n is protected by the Federal Confidentiality of Alcohol and Drug Abuse Patient Records regulations: The Federal rules restrict any use of the information to criminally investigate or prosecute any alcohol or drug abuse patient.[facility] the event this information is protected by the Federal Confidentiality of Alcohol and Drug Abuse Patient Records regulations: The Federal rules restrict any use of the information to criminally investigate or prosecute any alcohol or drug abuse patient.[facility] the event this information is protected by the Federal Confidentiality of Alcohol and Drug Abuse Patient Records regulations: The Federal rules restrict any use of the information to criminally investigate or prosecute any alcohol or drug abuse patient.[facility] the event this information is protected by the Federal Confidentiality of Alcohol and Drug Abuse Patient Records regulations: The Federal rules restrict any use of the information to criminally investigate or prosecute any alcohol or drug abuse patient.[facility] the event this information is protected by the Federal Confidentiality of Alcohol and Drug Abuse Patient Records regulations: The Federal rules restrict any use of the information to criminally investigate or prosecute any alcohol or drug abuse patient.[facility] the event this information is protected by the Federal Confidentiality of Alcohol and Drug Abuse Patient Records regulations: The Federal rules restrict any use of the information to criminally investigate or prosecute any alcohol or drug abuse patient.[facility]ull[facility] the event this information is protected by the Federal Confidentiality of Alcohol and Drug Abuse Patient Records regulations: The Federal rules restrict any use of the information to criminally investigate or prosecute any alcohol or drug abuse patient.[facility]ull[facility] the event this information is protected by the Federal Confidentiality of Alcohol and Drug Abuse Patient Records regulations: The Federal rules restrict any use of the information to criminally investigate or prosecute any alcohol or drug abuse patient.[facility]ull[facility] the event this information is protected by the Federal Confidentiality of Alcohol and Drug Abuse Patient Records regulations: The Federal rules restrict any use of the information to criminally investigate or prosecute any alcohol or drug abuse patient.[facility]ull[facility] the event this information is protected by the Federal Confidentiality of Alcohol and Drug Abuse Patient Records regulations: The Federal rules restrict any use of the information to criminally investigate or prosecute any alcohol or drug abuse patient.[facility]ull[facility] the event this information is protected by the Federal Confidentiality of Alcohol and Drug Abuse Patient Records regulations: The Federal rules restrict any use of the information to criminally investigate or prosecute any alcohol or drug abuse patient.[facility]ull[facility] the event this information is protected by the Federal Confidentiality of Alcohol and Drug Abuse Patient Records regulations: The Federal rules restrict any use of the information to criminally investigate or prosecute any alcohol or drug abuse patient.[facility]ull[facility] the event this information is protected by the Federal Confidentiality of Alcohol and Drug Abuse Patient Records regulations: The Federal rules restrict any use of the information to criminally investigate or prosecute any alcohol or drug abuse patient.[facility]ull[facility] the event this information is protected by the Federal Confidentiality of Alcohol and Drug Abuse Patient Records regulations: The Federal rules restrict any use of the information to criminally investigate or prosecute any alcohol or drug abuse patient.[facility]ull[facility] the event this information is protected by the Federal Confidentiality of Alcohol and Drug Abuse Patient Records regulations: The Federal rules restrict any use of the information to criminally investigate or prosecute any alcohol or drug abuse patient.[facility]ull[facility] the event this information is protected by the Federal Confidentiality of Alcohol and Drug Abuse Patient Records regulations: The Federal rules restrict any use of the information to criminally investigate or prosecute any alcohol or drug abuse patient.[facility]ullIn the event this information is protected by the Federal Confidentiality of Alcohol and Drug Abuse Patient Records regulations: The Federal rules restrict any use of the information to criminally investigate or prosecute any alcohol or drug abuse patient.[facility] the event this information is protected by the Federal Confidentiality of Alcohol and Drug Abuse Patient Records regulations: The Federal rules restrict any use of the information to criminally investigate or prosecute any alcohol or drug abuse patient.[facility] the event this information is protected by the Federal Confidentiality of Alcohol and Drug Abuse Patient Records regulations: The Federal rules restrict any use of the information to criminally investigate or prosecute any alcohol or drug abuse patient.[facility] the event this information is protected by the Federal Confidentiality of Alcohol and Drug Abuse Patient Records regulations: The Federal rules restrict any use of the information to criminally investigate or prosecute any alcohol or drug abuse patient.[facility] the event this information is protected by the Federal Confidentiality of Alcohol and Drug Abuse Patient Records regulations: The Federal rules restrict any use of the information to criminally investigate or prosecute any alcohol or drug abuse patient.[facility] the event this information is protected by the Federal Confidentiality of Alcohol and Drug Abuse Patient Records regulations: The Federal rules restrict any use of the information to criminally investigate or prosecute any alcohol or drug abuse patient.[facility] the event this information is protected by the Federal Confidentiality of Alcohol and Drug Abuse Patient Records regulations: The Federal rules restrict any use of the information to criminally investigate or prosecute any alcohol or drug abuse patient.[facility] the event this information is protected by the Federal Confidentiality of Alcohol and Drug Abuse Patient Records regulations: The Federal rules restrict any use of the information to criminally investigate or prosecute any alcohol or drug abuse patient.[facility] the event this information is protected by the Federal Confidentiality of Alcohol and Drug Abuse Patient Records regulations: The Federal rules restrict any use of the information to criminally investigate or prosecute any alcohol or drug abuse patient.[facility] the event this information is protected by the Federal Confidentiality of Alcohol and Drug Abuse Patient Records regulations: The Federal rules restrict any use of the information to criminally investigate or prosecute any alcohol or drug abuse patient.[facility] the event this information is protected by the Federal Confidentiality of Alcohol and Drug Abuse Patient Records regulations: The Federal rules restrict any use of the information to criminally investigate or prosecute any alcohol or drug abuse patient.[facility] the event this information is protected by the Federal Confidentiality of Alcohol and Drug Abuse Patient Records regulations: The Federal rules restrict any use of the information to criminally investigate or prosecute any alcohol or drug abuse patient.[facility] the event this information is protected by the Federal Confidentiality of Alcohol and Drug Abuse Patient Records regulations: The Federal rules restrict any use of the information to criminally investigate or prosecute any alcohol or drug abuse patient.[facility] the event this information is protected by the Federal Confidentiality of Alcohol and Drug Abuse Patient Records regulations: The Federal rules restrict any use of the information to criminally investigate or prosecute any alcohol or drug abuse patient.[facility] the event this information is protected by the Federal Confidentiality of Alcohol and Drug Abuse Patient Records regulations: The Federal rules restrict any use of the information to criminally investigate or prosecute any alcohol or drug abuse patient.[facility] the event this information is protected by the Federal Confidentiality of Alcohol and Drug Abuse Patient Records regulations: The Federal rules restrict any use of the information to criminally investigate or prosecute any alcohol or drug abuse patient.[facility] the event this information is protected by [...] or prosecute any alcohol or drug abuse patient.[facility] the event this information is protected by the Federal Confidentiality of Alcohol and Drug Abuse Patient Records regulations: The Federal rules restrict any use of the information to criminally investigate or prosecute any alcohol or drug abuse patient.[facility] the event this information is protected by the Federal Confidentiality of Alcohol and Drug Abuse Patient Records regulations: The Federal rules restrict any use of the information to criminally investigate or prosecute any alcohol or drug abuse patient.[facility] the event this information is protected by the Federal Confidentiality of Alcohol and Drug Abuse Patient Records regulations: The Federal rules restrict any use of the information to criminally investigate or prosecute any alcohol or drug abuse patient.[facility] the event this information is protected by the Federal Confidentiality of Alcohol and Drug Abuse Patient Records regulations: The Federal rules restrict any use of the information to criminally investigate or prosecute any alcohol or drug abuse patient.[facility] the event this information is protected by the Federal Confidentiality of Alcohol and Drug Abuse Patient Records regulations: The Federal rules restrict any use of the information to criminally investigate or prosecute any alcohol or drug abuse patient.[facility] the event this information is protected by the Federal Confidentiality of Alcohol and Drug Abuse Patient Records regulations: The Federal rules restrict any use of the information to criminally investigate or prosecute any alcohol or drug abuse patient.[facility] the event this information is protected by the Federal Confidentiality of Alcohol and Drug Abuse Patient Records regulations: The Federal rules restrict any use of the information to criminally investigate or prosecute any alcohol or drug abuse patient.[facility] the event this information is protected by the Federal Confidentiality of Alcohol and Drug Abuse Patient Records regulations: The Federal rules restrict any use of the information to criminally investigate or prosecute any alcohol or drug abuse patient.[facility] the event this information is protected by the Federal Confidentiality of Alcohol and Drug Abuse Patient Records regulations: The Federal rules restrict any use of the information to criminally investigate or prosecute any alcohol or drug abuse patient.[facility] the event this information is protected by the Federal Confidentiality of Alcohol and Drug Abuse Patient Records regulations: The Federal rules restrict any use of the information to criminally investigate or prosecute any alcohol or drug abuse patient.[facility] the event this information is protected by the Federal Confidentiality of Alcohol and Drug Abuse Patient Records regulations: The Federal rules restrict any use of the information to criminally investigate or prosecute any alcohol or drug abuse patient.[facility] Reason for Visit (unrecogniz ed section and [...] W/O & W/CONTRAST MATERIAL David Kumari MD [address] [place] [address] [place] [address] [place] [address] Referral ID Status Reason Start Date Expiration Date V isits Requested Visits Authorized [id number] Closed Auto-Generate d Referral 11/15/2022 12/15/2023 1 [...] NM Specialty Diagnoses / Procedures Referred By Ana t Referred To Contact Radiation Oncology / RADIATION ONCOLOGY Diagnoses Malignant neoplasm of prostate Sim treating prostate eng IMRT PROSTATE 39FX PLUS SIM Procedures INTENSITY MODULATED RADIATION TX DLVR SIMPLE SIMULATION JOSE IMRT PROSTATE 39FX PLUS SIM David Kumari MD [address] [place] [address] [place] [address] David Kumari MD [address] [place] [address] [place] [address] Referral ID Status Reason Start Date Expiration Date Visits Re quested Visits Authorized [id number] Closed 11/23/2022 06/05/2023 40 40 Reason Comments Prostate Cancer Followup Reason Comments Hematuria Reason Comments Radiology CT Specialty Diagnoses / Procedures [facility] Diagnoses Prostate cancer (HCC) Procedures IMAGING STUDY ORDERED Yosef Grimes MD [address] [place] [address] [facility] [address] [place] [address] Referral ID Status Reason Start Date Expiration Date Visits Requested Visits Authorized [id number] Pending Review Patient Cleared - Admin/Chair man/Directo r advise to proceed or did not respond 01/10/2024 07/08/2024 1 1 Reason Comments Radio Gen RMP Care Team (unrecognized sect ion and content) Team Status: Inactive Member Role Status Dates Angelina Holder , DISEASE AND INSECT CONTROL BOSS-C Attending Provider Active Delivery Representative Relationship Specialty Start Date End Date Shahriar Stephenson MD [address] [place] [address] PCP - General Family Medicine 11/15/22 Delivery Representative Relationship Specialty Start Date End Date Shahriar Stephenson MD [address] [place] [address] PCP - General Family Medicine 11/15/22 Delivery Representative Relationship Specialty Start Date End Date Shahriar Stephenson MD [address] [place], [place] [address] PCP - General Family Medicine 11/15/22 Delivery Representative Relationship Specialty Start Date End Date Shahriar Stephenson MD [address] [place] [address] PCP - General Family Medicine 11/15/22 David Kumari MD [address] [place] [address] Physician Radiation Oncology 12/12/22 Elio Payne, CRISTEL.TEMP RECRUITER [address] [place] [address] Nurse Practitioner Hematology/Oncology 12/12/22 Nicolas Hwang MD [address] [place] [address] Physician Hematology/Oncology 12/12/22 Nancy Ray, RN [address] [place] [address] Specialty Receiving Inspector Hematology/Oncology 12/12/22 Delivery Representative Relationship Specialty Start Date End Date Shahriar Stephenson MD [address] [place] [address] PCP - General Family Medicine 11/15/22 Delivery Representative Relationship Specialty Start Date End Date Shahriar Stephenson MD [address] [place] [address] PCP - General Family Medicine 11/15/22 David Kumari MD [address] [place] [address] [place] [address] Physician Radiation Oncology 12/12/22 Elio Payne, CRISTEL.TEMP RECRUITER [address] [place] [address] Nurse Practitioner Hematology/Oncology 12/12/22 Nicolas Hwang MD [address] [facility] [place] [address] Physician Hematology/Oncology 12/12/22 Nancy Ray, SINDI [address] [place] [address] Specialty Receiving Inspector Hematology/Oncology 12/12/22 Delivery Representative Relationship Specialty Start Date End Date Shahriar Stephenson MD [address] [place] [address] PCP - General Family Medicine 11/15/22 David Kumari MD [address] [place] [address] Physician Radiation Oncology 12/12/22 Elio Payne, AUTOMOTIVE QUALITY MANAGER.TEMP RECRUITER [address] [place] [address] Nurse Practitioner Hematology/Oncology 12/12/22 Nicolas Hwang MD [address] [facility] [place] [address] Physician Hematology/Oncology 12/12/22 Nancy Ray, SINDI [address] [facility] [place] [address] Specialty Receiving Inspector Hematology/Oncology 12/12/22 Delivery Representative Relationship Specialty Start Date End Date Shahriar Stephenson MD [address] [place] [address] PCP - General Family Medicine 11/15/22 David Kumari MD [address] [facility] [place] [address] Physician Radiation Oncology 12/12/22 Elio Payne, AUTOMOTIVE QUALITY MANAGER.TEMP RECRUITER [address] [place] [address] Nurse Practitioner Hematology/Oncology 12/12/22 Nicolas Hwang MD [address] [facility] [place] [address] Physician Hematology/Oncology 12/12/22 Nancy Ray, SINDI [address] [place] [address] Specialty Receiving Inspector Hematology/Oncology 12/12/22 Delivery Representative Relationship Specialty Start Date End Date Shahriar Stephenson MD [place] [address] PCP - General Family Medicine 11/15/22 David Kumari MD [address] [place] [address] [place] [address] Physician Radiation Oncology 12/12/22 Elio Payne, AUTOMOTIVE QUALITY MANAGER.TEMP RECRUITER [address] [place] [address] Nurse Practitioner Hematology/Oncology 12/12/22 Nicolas Hwang MD [address] [place] [address] [place] [address] Physician Hematology/Oncology 12/12/22 Nancy Ray, SINDI [address] [facility] [place] [address] Specialty Receiving Inspector Hematology/Oncology 12/12/22 Delivery Representative Relationship Specialty Start Date End Date Shahriar Stephenson MD [place] [address] PCP - General Family Medicine 11/15/22 David Kumari MD [address] [facility] [place] [address] Physician Radiation Oncology 12/12/22 Elio Payne, AUTOMOTIVE QUALITY MANAGER.TEMP RECRUITER [address] [facility] [place] [address] Nurse Practitioner Hematology/Oncology 12/12/22 Nicolas Hwang MD [address] [place] [address] Physician Hematology/Oncology 12/12/22 Nancy Ray, SINDI [address] [facility] [place] [address] Specialty Receiving Inspector Hematology/Oncology 12/12/22 Delivery Representative Relationship Specialty Start Date End Date Shhariar Stephenson MD [address] [place] [address] PCP - General Family Medicine 11/15/22 David Kumari MD [address] [facility] [place] [address] Physician Radiation Oncology 12/12/22 Elio Payne, AUTOMOTIVE QUALITY MANAGER.TEMP RECRUITER [address] [facility] [place] [address] Nurse Practitioner Hematology/Oncology 12/12/22 Nicolas Hwang MD [address] [facility] [place] [address] Physician Hematology/Oncology 12/12/22 Nancy Ray, SINDI [address] [facility] [place] [address] Specialty Receiving Inspector Hematology/Oncology 12/12/22 Delivery Representative Relationship Specialty Start Date End Date Shahriar Stephenson MD [address] [place] [address] PCP - General Family Medicine 11/15/22 David Kumari MD [address] [facility] [place] [address] Physician Radiation Oncology 12/12/22 Elio Payne, AUTOMOTIVE QUALITY MANAGER.TEMP RECRUITER [address] [facility] [place] [address] Nurse Practitioner Hematology/Oncology 12/12/22 Nicolas Hwang MD [address] [facility] [place] [address] Physician Hematology/Oncology 12/12/22 Nancy Ray, SINDI [address] [facility] [place] [address] Specialty Receiving Inspector Hematology/Oncology 12/12/22 Delivery Representative Relationship Specialty Start Date End Date Shahriar Stephenson MD [address] [place] [address] PCP - General Family Medicine 11/15/22 David Kumari MD [address] [facility] [place] [address] Physician Radiation Oncology 12/12/22 Elio Payne, AUTOMOTIVE QUALITY MANAGER.TEMP RECRUITER [address] [facility] [place] [address] Nurse Practitioner Hematology/Oncology 12/12/22 Nicolas Hwang MD [address] [facility] [place] [address] Physician Hematology/Oncology 12/12/22 Nancy Ray, SINDI [address] [place] [address] Specialty Receiving Inspector Hematology/Oncology 12/12/22 Delivery Representative Relationship Specialty Start Date End Date Shahriar Stephenson MD [address] [place] [address] PCP - General Family Medicine 11/15/22 David Kumari MD [address] [facility] [place] [address] Physician Radiation Oncology 12/12/22 Elio Payne, AUTOMOTIVE QUALITY MANAGER.TEMP RECRUITER [address] [facility] [place] [address] Nurse Practitioner Hematology/Oncology 12/12/22 Nicolas Hwang MD [address] [facility] [place] [address] Physician Hematology/Oncology 12/12/22 Nancy Ray, SINDI [address] [facility] [place] [address] Specialty Receiving Inspector Hematology/Oncology 12/12/22 Delivery Representative Relationship Specialty Start Date End Date Shahriar Stephenson MD [address] [place] [address] PCP - General Family Medicine 11/15/22 David Kumari MD [address] [facility] [address] Physician Radiation Oncology 12/12/22 Elio Payne, AUTOMOTIVE QUALITY MANAGER.TEMP RECRUITER [address] [place] [address] Nurse Practitioner Hematology/Oncology 12/12/22 Nicolas Hwang MD [address] [facility] [place] [address] Physician Hematology/Oncology 12/12/22 Nancy Ray, SINDI [address] [facility] [place] [address] Specialty Receiving Inspector Hematology/Oncology 12/12/22 Delivery Representative Relationship Specialty Start Date End Date Shahriar Stephenson MD [place] [address] PCP - General Family Medicine 11/15/22 David Kumari MD [address] [facility] [place] [address] Physician Radiation Oncology 12/12/22 Elio Payne APRN.TEMP RECRUITER [address] [facility] [place] [address] Nurse Practitioner Hematology/Oncology 12/12/22 Nicolas Hwang MD [address] [facility] [place] [address] Physician Hematology/Oncology 12/12/22 Nancy Ray, SINDI [address] [facility] [place] [address] Specialty Receiving Inspector Hematology/Oncology 12/12/22 Delivery Representative Relationship Specialty Start Date End Date Shahriar Stephenson MD [address] [place] [address] PCP - General Family Medicine 11/15/22 David Kumari MD [address] [facility] [place] [address] Physician Radiation Oncology 12/12/22 Elio Payne, AUTOMOTIVE QUALITY MANAGER.TEMP RECRUITER [address] [facility] [place] [address] Nurse Practitioner Hematology/Oncology 12/12/22 Nicolas Hwang MD [address] [place] [address] Physician Hematology/Oncology 12/12/22 Nancy Ray, RN [address] [facility] [place] [address] Specialty Receiving Inspector Hematology/Oncology 12/12/22 Delivery Representative Relationship Specialty Start Date End Date Shahriar Stephenson MD [place] [address] PCP - General Family Medicine 11/15/22 David Kumari MD [address] [facility] [place] [address] Physician Radiation Oncology 12/12/22 Elio Payne, AUTOMOTIVE QUALITY MANAGER.TEMP RECRUITER [address] [facility] [place] [address] Nurse Practitioner Hematology/Oncology 12/12/22 Nicolas Hwang MD [address] [facility] [place] [address] Physician Hematology/Oncology 12/12/22 Nancy Ray, SINDI [address] [facility] [place] [address] Specialty Receiving Inspector Hematology/Oncology 12/12/22 Delivery Representative Relationship Specialty Start Date End Date Shahriar Stephenson MD [address] [place] [address] PCP - General Family Medicine 11/15/22 David Kumari MD [address] [facility] [address] Physician Radiation Oncology 12/12/22 Elio Payne, AUTOMOTIVE QUALITY MANAGER.TEMP RECRUITER [address] [facility] [place] [address] Nurse Practitioner Hematology/Oncology 12/12/22 Nicolas Hwang MD [address] [facility] [address] Physician Hematology/Oncology 12/12/22 Nancy Ray, SINDI [address] [place] [address] Specialty Receiving Inspector Hematology/Oncology 12/12/22 Delivery Representative Relationship Specialty Start Date End Date Shahriar Stephenson MD [address] [place] [address] PCP - General Family Medicine 11/15/22 David Kumari MD [address] [facility] [address] Physician Radiation Oncology 12/12/22 Elio Payne, AUTOMOTIVE QUALITY MANAGER.TEMP RECRUITER [address] [place] [address] Nurse Practitioner Hematology/Oncology 12/12/22 iNcolas Hwang MD [address] [place] [address] [place] [address] Physician Hematology/Oncology 12/12/22 Nancy Ray, RN [address] [facility] [place] [address] Specialty Receiving Inspector Hematology/Oncology 12/12/22 Delivery Representative Relationship Specialty Start Date End Date Shahriar Stephenson MD [address] [place] [address] PCP - General Family Medicine 11/15/22 David Kumari MD [address] [place] [address] [place] [address] Physician Radiation Oncology 12/12/22 Elio Payne APRN.TEMP RECRUITER [address] [place] [address] [place] [address] Nurse Practitioner Hematology/Oncology 12/12/22 Nicolas Hwang MD [address] [place] [address] [place] [address] Physician Hematology/Oncology 12/12/22 Nancy Ray, SINDI [address] [facility] [place] [address] Specialty Receiving Inspector Hematology/Oncology 12/12/22 Delivery Representative Relationship Specialty Start Date End Date Shahriar Stephenson MD [address] [place], [place] [address] [address] PCP - General Family Medicine 11/15/22 Davdi Kumari MD [address] [place] [address] [place] [address] Physician Radiation Oncology 12/12/22 Elio Payne, AUTOMOTIVE QUALITY MANAGER.TEMP RECRUITER [address] [facility] [place] [address] Nurse Practitioner Hematology/Oncology 12/12/22 Nicolas Hwang MD [address] [place] [address] Physician Hematology/Oncology 12/12/22 Nancy Ray, SINDI [address] [facility] [place] [address] Specialty Receiving Inspector Hematology/Oncology 12/12/22 Delivery Representative Relationship Specialty Start Date End Date Shahriar Stephenson MD [facility] [place] [address] PCP - General Family Medicine 11/15/22 David Kumari MD [address] [facility] [place] [address] Physician Radiation Oncology 12/12/22 Elio Payne, AUTOMOTIVE QUALITY MANAGER.TEMP RECRUITER [address] [facility] [place] [address] Nurse Practitioner Hematology/Oncology 12/12/22 Nicolas Hwang MD [address] [facility] [place] [address] Physician Hematology/Oncology 12/12/22 Nancy Ray, SINDI [address] [facility] [place] [address] Specialty Receiving Inspector Hematology/Oncology 12/12/22 Delivery Representative Relationship Specialty Start Date End Date Shahriar Stephenson MD [address] [place] [address] PCP - General Family Medicine 11/15/22 Delivery Representative Relationship Specialty Start Date End Date Shahriar Stephenson MD [address] [place] [address] PCP - General Family Medicine 11/15/22 David Kumari MD [address] [facility] [address] Physician Radiation Oncology 12/12/22 Elio Payne, AUTOMOTIVE QUALITY MANAGER.TEMP RECRUITER [address] [address] Nurse Practitioner Hematology/Oncology 12/12/22 Nicolas Hwang MD [address] [place] [address] Physician Hematology/Oncology 12/12/22 Nancy Ray, SINDI [address] [place] [address] Specialty Receiving Inspector Hematology/Oncology 12/12/22 Delivery Representative Relationship Specialty Start Date End Date Shahriar Stephenson MD [address] [place] [address] PCP - General Family Medicine 11/15/22 David Kumari MD [address] [place] [address] Physician Radiation Oncology 12/12/22 Elio Payne, AUTOMOTIVE QUALITY MANAGER.TEMP RECRUITER [address] [facility] [address] [place] [address] Nurse Practitioner Hematology/Oncology 12/12/22 Nicolas Hwang MD [address] [place] [address] [place] [address] Physician Hematology/Oncology 12/12/22 Nancy Ray, RN [address] [place] [address] Specialty Receiving Inspector Hematology/Oncology 12/12/22 Team Status: Active Member Role Status Dates NON STAFF Primary Care Provider Active Start: January 13, 2024 Samir Mantilla DO Attending Provider Active Sta rt: January 13, 2024 Team Status: Inactive Member Role Status Dates Yosef Grimes MD Attending Provider Active St art: February 22, 2024 End: February 22, 2024 Delivery Representative Relationship Specialty Start Date End Date Shahriar tSephenson MD [facility] [address] [place] [id number] PCP - General Family Medicine 11/15/22 David Kumari MD [address] [place] [address] [place] [address] Physician Radiation Oncology 12/12/22 Elio Payne APRN.TEMP RECRUITER [address] [place] [address] Nurse Practitioner Hematology/Oncology 12/12/22 Nicolas Hwang MD [address] [place] [address] [place] [address] Physician Hematology/Oncology 12/12/22 Nancy Ray, RN [address] [place] [address] Specialty Receiving Inspector Hematology/Oncology 12/12/22 Delivery Representative Relationship Specialty Start Date End Date Shahriar Stephenson MD [address] [place] [address] PCP - General Family Medicine 11/15/22 David Kumari MD [address] [place] [address] Physician Radiation Oncology 12/12/22 Elio Payne, AUTOMOTIVE QUALITY MANAGER.TEMP RECRUITER [address] [facility] [place] [address] Nurse Practitioner Hematology/Oncology 12/12/22 Nicolas Hwang MD [address] [facility] [place] [address] Physician Hematology/Oncology 12/12/22 Nancy Ray, SINDI [address] [facility] [place] [address] Specialty Receiving Inspector Hematology/Oncology 12/12/22 Delivery Representative Relationship Specialty Start Date End Date Shahriar Stephenson MD [address] [place] [address] PCP - General Family Medicine 11/15/22 David Kumari MD [address] [facility] [place] [address] Physician Radiation Oncology 12/12/22 Elio Payne, AUTOMOTIVE QUALITY MANAGER.TEMP RECRUITER [address] [facility] [place] [address] Nurse Practitioner Hematology/Oncology 12/12/22 Nicolas Hwang MD [address] [facility] [place] [address] Physician Hematology/Oncology 12/12/22 Nancy Ray, RN [address] [place] [address] Specialty Receiving Inspector Hematology/Oncology 12/12/22 (unrecognized sect ion and content) No Status Records FoundNo Status Records FoundNo Status Records FoundNo Status Records FoundNo Status Records FoundNo Status Records FoundNo Status Records Found INFORMATION SOURCE (unrecogn ized section and content) DATE CREATED AUTHOR 10/17/2021 [facility] DATE CREATED AUTHOR AUTHOR'S ORGANIZ ATION 01/06/2024 [facility] DATE CREATED AUTHOR AUTHOR'S ORGANIZ ATION 02/29/2024 [facility] DATE CREATED AUTHOR AUTHOR'S ORGANIZ ATION 03/01/2024 [facility] DATE CREATED AUTHOR AUTHOR'S ORGANIZ ATION 03/05/2024 [facility] DATE CREATED AUTHOR AUTHOR'S ORGANIZ ATION 06/12/2024 [facility] DATE CREATED AUTHOR AUTHOR'S ORGANIZ ATION 09/27/2024 [facility] Goals (unrecognized section and content) Goals may [...] BE BASED ON THE PRIMARY CLINICAL RECORDS. [employer] [facility]. provides no warranty or guarantee of the accuracy or completeness of information in this document.
--- NOTE | 2024-10-10 13:55 | ECG_ITS ---
[facility] Test Date: 2024-10-10 Pat Name: FARZANA JOHNS Department: Room: - Gender: Male Patient Services Coordinator: : 1945 Requested By: [id number] Order Number: [id number] Reading MD: NEMESIO RUFF Measurements Intervals [place] Rate: 82 P: 47 DE: 144 QRS: -8 QRSD: 82 T: -3 QT: 338 QTc: 376 Interpretive Statements 1100 Sinus rhythm 2420 RSR (QR) in lead V1/V2, consistent with right ventricular conduction delay 3433 Septal myocardial infarction, probably old 9150 abnormal ECG Compared to ECG 01/12/2024 13:22:44 Myocardial infarct finding now present T-wave abnormality no longer present Electronically Signed On 10-14-2024 18:51:01 EDT by NEMESIO RUFF
[2024-10-10 14:04] LABS: Hematocrit 39.5 % (42.0-54.0); Hemoglobin 13.2 g/dL (14.0-18.0); Immature Granulocytes Abs Auto 0.10 10^3/uL (0.00-0.03); Immature Granulocytes Pct Auto 1.1 % (0.0-0.5); Lymphocytes Absolute Auto 0.6 10^3/uL (1.2-3.8); Mean Corpuscular HGB Conc 33.4 g/dL (29.9-35.2); Mean Corpuscular Hemoglobin 30.7 pg (25.9-34.0); Mean Corpuscular Volume 91.9 fL (80.0-94.0); Platelet Count 165 10^3/uL (150-450); Red Blood Count 4.30 10^6/uL (4.70-6.10); White Blood Count 9.4 10^3/uL (4.0-11.0)
--- NOTE | 2024-10-10 14:17 | ED_ITS ---
HPI HPI - General Adult General Chief complaint: Abdominal Pain Stated complaint: UROGENITAL PAIN R TESTICLE Time Seen by Provider: 10/10/24 13:32 Source: patient and family Mode of arrival: Wheelchair Limitations: physical limitation Limitations comment: weakness History of Present Illness HPI narrative: Patient is a 79-year-old male, history significant for adenocarcinoma of the prostate/bladder s/p TURBT in 2022, presenting to the emergency department for 4-day history of right flank and right groin pain. Patient denies any history of injury to the area. He states he does have a history of kidney stones. He states the pain is constant, however it is 100% improved with his TENS unit. Denies any dysuria or hematuria. He states he feels generally nauseous and had a few episodes of vomiting. He denies any hematuria. No chest pain or shortness of breath. No fevers or chills. No dysuria or urinary frequency. Related Data Home Medications ?Medication ?Instructions ?Recorded ?Confirmed lisinopril 10 1 tab PO QDAY 11/04/2202/21 mg-hydrochlorothiazide 12.5 mg tablet abiraterone 250 mg tablet 1,000 mg PO DAILY 01/12/24 0 02/22/24 leuprolide acetate (6 month) 45 mg 45 mg subcut .q6mon ths 01/12/24 02/22/24 (6 month) subcutaneous syringe (EliNetflixd) prednisone 5 mg tablet 5 mg PO DAILY 01/12/2402/21 Previous Rx's ?Medication ?Instructions ?Recorded vibegron 75 mg tablet (Gemtesa) 75 mg PO DAILY #7 tabs 02/22/24 Allergies Allergy/AdvReac Type Severity Reaction Status Date / Time oxytetracycline (From Allergy swelling Verified 10/10/24 13:29 Terramycin) Penicillins Allergy Rash Verified 10/10/24 13:29 Opioid HPI Opioid Management Most Recent Opioid Data: Last Pain Scale 4 02/22/24, 16:30 Review of Systems ROS Status of ROS 10 or more systems reviewed and unremark able except as noted in history and below [facility] Medical History (Updated 10/10/24 @ 16:41 by Hector Shahid DO) Irregular heart beat ?I49.9 - Cardiac arrhythmia, unspecified (ICD-10) Bladder cancer ?C67.9 - Malignant neoplasm of bladder, unspecified (ICD-10) Hematuria ?R31.9 - Hematuria, unspecified (ICD-10) Skin cancer ?C44.90 - Unspecified malignant neoplasm of skin, unspecified (ICD-10) Prostate cancer ?C61 - Malignant neoplasm of prostate (ICD-10) Bronchitis ?J40 - Bronchitis, not specified as acute or chronic (ICD-10) Hypertension ?I10 - Essential (primary) hypertension (ICD-10) Bladder tumor ?D49.4 - Neoplasm of unspecified behavior of bladder (ICD-10) Surgical History (Updated 01/12/24 @ 13:07 by Peggy Helm NP) H/O transurethral resection of bladder tumor (TURBT) (11/10/22) ?Z98.890 - Other specified postprocedural states (ICD-10) ?Z86.03 - Personal history of neoplasm of uncertain behavior (ICD-10) History of surgical removal of lesion ?Z98.890 - Other specified postprocedural states (ICD-10) ?Z87.2 - Personal history of diseases of the skin and subcutaneous tissue (ICD-10) H/O prostatectomy ?Z90.79 - Acquired absence of other genital organ(s) (ICD-10) History of colonoscopy ?Z98.890 - Other specified postprocedural states (ICD-10) Family History (Updated 11/04/22 @ 09:43 by Peggy Helm NP) Other Family history of cancer Family history of hypertension Myocardial infarct Social History (Updated 11/04/22 @ 09:18 by Peggy Helm NP) Within the past year, how often did you have a drink containing alcohol: never Score interpretation: A score less than 4 is consistent with normal alcohol consumption. Smoking status: Never smoker Previous occupational history: Retired Highest level of school completed/degree received: high school graduate Little interest or pleasure in doing things: not at all Feeling down, depressed, or hopeless: not at all Exam Narrative Exam Narrative: CONSTITUTIONAL: Nontoxic appearing answering questions and following commands appropriately SKIN: Was warm and dry. EYES: No conjunctival pallor. No scleral icterus. EARS, NOSE, THROAT: Moist oral mucosa. RESPIRATORY: Clear to auscultation bilaterally, no wheezes, crackles, or stridor, no use of accessory muscles CARDIOVASCULAR: Normal rate and regular rhythm. There is no S3, S4, murmur, rub. GASTROINTESTINAL: Abdomen was soft, non-tender, and non-distended. There is no guarding or rebound tenderness. No CVA tenderness MUSCULOSKELETAL: There was no lower extremity edema, erythema, or tenderness. There is no tenderness to palpation throughout the lumbar spine or soft tissues of the lower back. NEUROLOGIC: Patient is awake and alert. Equal strength in all extremities. Equal sensation to light touch in the bilateral lower extremities. Facies were symmetrical. Constitutional Vital Signs, click to edit/add: Last Vital Signs Temp 98.6 F 10/10/24 13:29 Pulse 79 10/10/24 15:40 Resp 14 10/10/24 15:40 BP 148/71 H 10/10/24 15:31 Pulse Ox 97 10/10/24 15:40 O2 Del Method Nasal Cannula 10/10/24 13:53 O2 Flow Rate 2 10/10/24 13:53 Course Vital Signs Vital signs: Vital Signs Pulse Rate 87 10/10/24 13:27 Respiratory Rate 16 10/10/24 13:27 Pulse Oximetry 90 L 10/10/24 13:27 Temperature 98.6 F 10/10/24 13:29 Pulse Rate 79 10/10/24 15:40 Respiratory Rate 14 10/10/24 15:40 Blood Pressure 148/71 H 10/10/24 15:31 Pulse Oximetry 97 10/10/24 15:40 Oxygen Delivery Method Nasal Cannula 10/10/24 13:53 Oxygen Delivery Flow Rate 2 10/10/24 13:53 Medical Decision Making MDM Narrative Medical decision making narrative: Patient is a 79-year-old male presenting to the emergency department for evaluation of 4-day history of atraumatic right flank/groin pain. On review of external documentation, patient has a history of adenocarcinoma of the prosta te/bladder s/p TURBT in 2022. He is currently in remission and not on chemotherapy. His vital signs are within normal limits. He is afebrile and hemodynamically stable. Examination as noted above. Differential diagnose includes UTI, pyelonephritis, cystitis, nephrolithiasis, musculoskeletal pain, radiculopathy, colitis, gastroenteritis. IV was established and laboratory studies were obtained. CT abdomen/pelvis with IV contrast was ordered. He was given IV Zofran for symptomatic treatment. Laboratory studies were significant for an acute kidney injury with a creatinine of 2.5, up from his baseline of 1.7. No acute urinary tract infection to suggest septic stone. No leukocytosis or anemia. Troponin nonelevated. No transaminitis or hyperbilirubinemia. CT abdomen/pelvis independently reviewed and interpreted by myself and radiology demonstrated 5 mm obstructing ureterolithiasis in the right distal ureter with moderate hydronephrosis and hydroureter. I do believe the patient warrants admission to the hospital for ureterolithiasis causing obstructive uropathy. I discussed the patient with on-call urologist, Dr. Peralta, who recommends admission to the hospital and plans on laser lithotripsy tomorrow afternoon. She recommends n.p.o. at midnight and IV fluid rehydration. I discussed the patient with hospitalist, Dr. Portillo, who accepted the patient to his service. At the time of admission, patient remains hemodynamic stable. He is currently asymptomatic without active abdominal pain. FINAL IMPRESSION: #Acute obstructing right distal ureterolithiasis #Acute kidney injury DISPOSITION: Admitted to the hospital CONDITION: Fair Medical Records Medical records reviewed: Yes I reviewed the patient's medical records Lab Data Lab results reviewed: Yes I reviewed the patient's lab results Labs: Lab Results 10/10/24 10/10/24 Range/Units 13:39 16:20 WBC 9.4 (4.0-11.0) 10^3/uL RBC 4.30 L (4.70-6.10) 10^6/uL Hgb 13.2 L (14.0-18.0) g/dL Hct 39.5 L (42.0-54.0) % MCV 91.9 (80.0-94.0) fL MCH 30.7 (25.9-34.0) pg MCHC 33.4 (29.9-35.2) g/dL RDW 14.1 (11.0-15.0) % Plt Count 165 (150-450) 10^3/uL MPV 10.4 (9.5-13.5) fL Neut % (Auto) 81.0 H (43.0-75.0) % Lymph % (Auto) 6.1 L (20.5-60.0) % [place] % (Auto) 10.8 (1.7-12.0) % Eos % (Auto) 0.7 L (0.9-7.0) % Baso % (Auto) 0.3 (0.2-2.0) % Neut # (Auto) 7.6 H (1.4-6.5) 10^3/uL Lymph # (Auto) 0.6 L (1.2-3.8) 10^3/uL [place] # (Auto) 1.0 H (0.3-0.8) 10^3/uL Eos # (Auto) 0.1 (0.0-0.7) 10^3/uL Baso # (Auto) 0.0 (0.0-0.1) 10^3/uL Abs Immat Gran (auto) 0.10 H (0.00-0.03) 10^3/uL Imm/Tot Granulo (auto) 1.1 H (0.0-0.5) % Sodium 141 (136-145) mmol/L Potassium 3.3 L (3.5-5.1) mmol/L Chloride 101 (98-107) mmol/L Carbon Dioxide 26.5 (21.0-32.0) mmol/L Anion Gap 16.8 BUN 28.0 H (7.0-18.0) mg/dL Creatinine 2.50 H (0.70-1.30) mg/dL Est GFR ( Amer) 30 L (>=60 mL/min/1.73m^2) Est GFR (Non-Af Amer) 25 L (>=60 mL/min/1.73m^2) BUN/Creatinine Ratio 11.2 Glucose 154 H (74-106) mg/dL Calcium 9.7 (8.5-10.1) mg/dL Total Bilirubin 1.3 H (0.2-1.0) mg/dL AST 13 L (15-37) U/L ALT 12 L (16-63) U/L Alkaline Phosphatase 54 (46-116) U/L Troponin I High Sens 8.4 (4.0-76.1) pg/mL Total Protein 8.2 (6.4-8.2) g/dL Albumin 3.7 (3.4-5.0) g/dL Globulin 4.5 g/dL Albumin/Globulin Ratio 0.8 Urine Color Lt. yellow (YELLOW) Urine Clarity Clear (CLEAR) Urine pH 6.0 (5.0-9.0) Ur Specific [place] 1.025 (1.005-1.025) Urine Protein 100 A (NEG/TRACE) mg/dL Urine Glucose (UA) Negative (NEGATIVE) mg/dL Urine Ketones Trace A (NEGATIVE) mg/dL Urine Occult Blood Small A (NEGATIVE) Urine Nitrite Negative (NEGATIVE) Urine Bilirubin Negative (NEGATIVE) Urine Urobilinogen 1.0 (0.2-1.0) EU/dL Ur Leukocyte Esterase Negative (NEGATIVE) Urine RBC 2-5 A (0-2) #/HPF Urine WBC None seen (NONE SEEN) #/HPF Ur Squamous Epith Cells Rare (NONE/RARE) #/LPF Urine Crystals None seen (None Seen) #/HPF Urine Bacteria Trace A (NONE SEEN) #/HPF Urine Casts None seen (NONE SEEN) #/LPF Urine Mucus Small A (NONE SEEN) Ur Culture Indicated? No Imaging Data CT scan - abdomen: Attestation: I personally reviewed and interpreted this imaging study as follows: Radiologist's impression: ITS Impressions Abdomen/Pelvis CT 10/10/24 14:47 IMPRESSION: 5 mm obstructing distal right ureteral calculus with moderate hydronephrosis and hydroureter. Impression dictated by: Aristides Chamorro M.D. 10/10/2024 3:57 PM Dictation Location: [facility] Electronically authenticated by: [id number] Y Date: 10/10/2024 15:57 Discharge Plan Discharge Chief Complaint: Abdominal Pain Clinical Impression: Right nephrolithiasis, JODIE (acute kidney injury) Patient Disposition: Admitted As Inpatient Time of Disposition Decision: 16:41 Condition: Fair
[2024-10-10 14:22] LABS: Alanine Aminotransferase 12 U/L (16-63); Albumin Globulin Ratio 0.8; Albumin Level 3.7 g/dL (3.4-5.0); Alkaline Phosphatase 54 U/L (46-116); Anion Gap 16.8; Aspartate Amino Transferase 13 U/L (15-37); Blood Urea Nitrogen 28.0 mg/dL (7.0-18.0); Calcium 9.7 mg/dL (8.5-10.1); Carbon Dioxide 26.5 mmol/L (21.0-32.0); Chloride 101 mmol/L (98-107); Estimated GFR (African America 30 (>=60 mL/min/1.73m^2); Estimated GFR (Non-African Ame 25 (>=60 mL/min/1.73m^2); Globulin 4.5 g/dL; Glucose 154 mg/dL (74-106); Potassium 3.3 mmol/L (3.5-5.1); Sodium 141 mmol/L (136-145); Total Protein 8.2 g/dL (6.4-8.2)
--- NOTE | 2024-10-10 14:47 | CT_ITS ---
[facility] [place] [id number] Patient Name: FARZANA JOHNS MRN: [id number] date: 1945 Sex: M Assigned Patient Location: ER Current Patient Location: ER Accession/Order Number: [id number] Exam Date: 10/10/2024 14:39 Report Date: 10/10/2024 15:57 At the request of: KRYSTLE WILDE DO Procedure: CT abdomen pelvis wo con CT Abdomen and Pelvis withoutcontrast TECHNIQUE: Axial imaging with 2-D reconstruction. . The CT exam was performed using one or more the following dose reduction techniques: Automated exposure control, adjustment of the MA and/or Kv according to patient size, or use of the iterative reconstruction technique. COMPARISON: None History: Right flank and groin pain with radiation to the right testicle. Onset Monday. LIMITATIONS: None LOWER THORAX mild atelectasis LIVER: Unremarkable GALLBLADDER: No gallbladder abnormality identified. BILE DUCTS: No dilatation SPLEEN: Unremarkable PANCREAS: Unremarkable ADRENAL GLANDS: Unremarkable KIDNEYS:Obstructing 5 mm distal right ureteral calculus with moderate hydronephrosis and hydroureter. No obstructive changes include perinephric and periureteral stranding. No left hydronephrosis. The left renal cyst. AORTA: No abdominal aortic aneurysm identified. RETROPERITONEUM: No significant retroperitoneal abnormalities identified. MESENTERY:Unremarkable STOMACH:Unremarkable SMALL BOWEL: The small bowel loops are nondistended. APPENDIX: The appendix is normal. COLON: Distal colonic diverticulosis URINARY BLADDER: Urinary bladder is unremarkable. REPRODUCTIVE SYSTEM: Prostatectomy PNEUMOPERITONEUM: None PERITONEAL FLUID:None BONY STRUCTURES: Unremarkable ABDOMINAL WALL: Unremarkable CT/CT abdomen pelvis wo con IMPRESSION: 5 mm obstructing distal right ureteral calculus with moderate hydronephrosis and hydroureter. Impression dictated by: Aristides Chamorro M.D. 10/10/2024 3:57 PM Dictation Location: [employer] Electronically authenticated by: [id number] Y Date: 10/10/2024 15:57
[2024-10-10 16:27] LABS: Glucose Urine UA NEGATIVE (NEGATIVE)
[2024-10-10 16:39] LABS: Cast Seen? NONE SEEN #/LPF (NONE SEEN); Crystals Seen? None Seen #/HPF (None Seen); Urine Culture Indicated NO
--- NOTE | 2024-10-10 17:07 | P.EN_ITS ---
Event Note Event Note: Received page from emergency room to admit Mr Esparza for an obstructing stone pending urology intervention tomorrow. Labs and imaging reviewed from home, patient has not been evaluated by me personally. Imaging and lab work consistent with an obstructing stone without signs of sepsis, he wll be admitted under obse rvation, started on ceftriaxone, tamsulosin, have pain control with tylenol, norco, dilaudid, and toradol. Continue with IVF and make NPO at midnight. Check basic labs and PT/INR in the morning. Full H&P will be dictated tomorrow.
--- OUTSIDE RECORDS SUMMARY | 2024-10-10 18:03 | XMS_ITS | CCD ---
Author Organization [facility] Care Team Providers Care Channel Process Plant Operator Name Role Phone Unavailable Primary Care Provider [...] Unavailable CHANEL, DR GURMEET Haque Consulting Unavailable GRAFTON, DR CHAIM Canales Consulting Unavailable CHANEL, DR [...] Care Provider UnavailShahriar Gordon. Primary Care Physician Angelina Holder Unavailable CARISSA Holder Attending Provider [phone] Shahriar Stephenson MD Primary Care Provider David Kumari MD Unavailable Renny FOUNDATION RELATIONS MANAGER.FOLDED TOWEL MACHINE OPERATOR, Elio Unavailable Nicolas Hwang MD Unavailable Cory DELONG, Nancy Unavailable Shahriar Stephenson MD Primary Care Provider [phone] Unavailable Primary Care Provider UnavailShilpa Mcguire Primary Care Physician Yosef Grimes MD Attending Provider Parvez, RN MEDICAL INPATIENT SERVICES Shilpa L Attending Unavailable Parvez, RN MEDICAL INPATIENT SERVICES Shilpa L Attending Unavailable Parvez, RN MEDICAL INPATIENT SERVICES Shilpa L Attending Unavailable GRIMES, Yosef R [...] Attending Unavailable GRIMES, Yosef R Attending Unavailable Bob, Meño Attending Unavailable GRIMES, Yosef R Referring Unavailable Allergies Allergy Classification Reported Allergen(s) Allergy Type Date of Onset Reaction(s) Facility (20 sources) Oxytetracycline; Translations: [oxytetracycline] Drug Allergy 10-22-19 Unknown, Fever (finding), Swelling at injection site (disorder) [facility] (4 sources) Penicillins; Translations: [PENICILLINS] Drug Allergy 10-22-19 Rash, Swelling [facility] (4 sources) Penicillin V Drug Allergy 10-10-19 swelling, rash, and hair loss [facility] (3 sources) TERAMYCIN Propensity to adverse reactions Unknown [facility] Other (20 sources) Penicillins Drug Allergy 10-22-19 Rash, Swelling [facility] (20 sources) Penicillin; Translations: [penicillin] Drug Allergy Swelling at injection site (disorder) [facility] (1 source) Oxytetracycline Drug Allergy 12-23-19 [facility] (1 source) Penicillins Drug allergy (disorder) 12-23-19 [facility] (1 source) Oxytetracycline Drug Allergy 10-10-19 [facility] (1 source) Penicillin Drug Allergy 10-10-19 [facility] (4 sources) Penicillins Drug Allergy 10-22-19 Rash, Swelling [facility] Medications Current Medications Medication Drug Class(es) Dates Sig (Normalized) Sig (Original) abiraterone acetate 250 mg oral tablet (20 sources) Cytochrome P450 17A1 Inhibitor Start: 12-08-2022 End: 05-20-2024 take 4 tablets by mouth once daily abiraterone 250 mg tablet Take 4 tablets by mouth once daily. 360 tablet 5 05/21/2024 11:32 AM EDT 05/20/2024 Active Comment on above: Take 4 tablets by mo [facility] once daily. azithromycin 250 mg oral tablet [...] for 90 day(s), 90 tab(s), Refill(s) 3, [facility], 185, cm, 09/27/23 11:20:00 [...] day(s), # 90 tab(s), Refills(s) 3, Pharmacy: [facility], 190, cm, 11/18/22 11:20:00 [...] procedure, # 2 tab(s), Refills(s) 0, Pharmacy: [facility], 190, cm, 01/08/24 9:10:00 [...] procedure, # 2 tab(s), Refills(s) 0, Pharmacy: [facility], 190, cm, 10/03/22 13:54:00 [...] 09-26-2024 Ambulatory Visit Summary Ambulatory Visit Summary ADOLPH JOHNS DOB:1945 Visit Date:09/26/2024 Ambulatory Visit Instructions Your Diagnosis Hypertension Bladder neoplasm of uncertain malignant potential Mild pulmonary hypertension Chronic kidney disease, stage 3b Hypertensive chronic kidney disease Non-smoker BMI 32.0-32.9,adult Your Care Team Attending Physician - Shilpa Naylor Primary Care Physician - Shahriar Stephenson MD This Is Your Medications List [facility] Prescription (Eliard) abiraterone (abiraterone 250 mg oral [...] ROSARIO, Yosef Bunch Where: [facility] [address] [address] 2025 1:20 PM EDT With: Shilpa Naylor Where: [facility] [address] [address]- Medications What How Much When Instructions Changed hydrochlorothiazide-l isinopril (hydrochlorothiazide- lisinopril 12.5 mg-10 mg Tab) 1 Tablets By Mouth Every day TAKE 1 TABLET BY MOUTH ONCE DAILY Pickup at [facility] Unchanged abiraterone (abiraterone 250 mg oral tablet) 4 Tablets By Mouth Every day Unchanged Misc Prescription (Eliguard) 0 As Directed injection every 6 months Unchanged predniSONE (predniSONE 5 mg Tab) Pharmacy Information [facility]: [address] [place], [place] [id number] [phone] Allergies oxytetracycline (Fever, Swelling at injection site) [...] signed up for this yet, please contact [employer] at [phone] to get signed up today. Language Information Language assistance services are available as needed. Normal [facility] Office/Clini c Noteon 09-26-2024 Family [...] of bladder) followed by Dr. Grimes and [facility]. Has had radiation and is taking abiraterone. [...] TAKE 1 TABLET BY MOUTH ONCE DAILY, [facility], 190, cm, 09/26/24 14:26:00 [...] Cystoscopy ( (more content not included)... Normal [facility] Comment on above: Result Comment: Electronically [...] specialist: Urologist Dr Heck , Dr Cook Skydiving Instructor, Dr Mack oncologist, pt states he has [...] feel free to contact me at extension [phone]. Thank you! Jazmin Cano, KORY, RN, CCM, CCDS, CCDS-O [employer] [address] [address] P: [phone] F: [phone] [email or web address] From: Shilpa Naylor To: Jazmin Cano RN; Sent: 09/26/2024 14:54:25 EDT Subject: RE: Pre-Visit Planning Caller Name: ANDREASADOLPH; Caller Number: H I updated with current diagnoses. thank you Normal [facility] Pre-Visit Planning Pre-Visit Planning From: Jazmin Cano [...] feel free to contact me at extension [phone]. Thank you! Jazmin Cano, KORY, RN, CCM, CCDS, CCDS-O [employer] [address] [address] P: [phone] F: [phone] [email or web address] From: Shilpa Naylor To: Jazmin Cano RN; Sent: 09/26/2024 14:12:23 EDT Subject: RE: Pre-Visit Planning Caller Name: JOHNSADOLPH; Caller Number: H mild pulmonary hypertension Normal [facility] Pre-Visit Planning Pre-Visit Planning From: Jazmin Cano [...] feel free to contact me at extension [phone]. Thank you! Jazmin Cano, KORY, RN, CCM, CCDS [employer] [facility] [address] [place], [place] [address] P: [phone] F: [phone] [email or web address] From: Shilpa Naylor To: Rachael DELONG, Jazmin; Sent: 09/26/2024 14:11:40 EDT Subject: RE: Pre-Visit Planning Caller Name: ADOLPH JOHNS; Caller Number: H CKD stage 3b Normal [facility] CNOVon 06-04-2024 CNOV Office Visit (RADTSA ) ADOLPH JOHNS ([id number]) 1945 M Date Time Provider Department 06/04/24 [...] DIAGNOSIS: Prostate adenocarcinoma, initial PSA 7.5, biopsy [place] score 4 + 3 = 7 (grade [...] ASSESSMENT/PLAN: Prostate adenocarcinoma, initial PSA 7.5, biopsy [place] score 4 + 3 = 7 (grade [...] by: David Kumari MD cc: Shahriar Stephenson [address] [place] [address] No referring provider defined for this encounter. Referring Provider: NICOLAS HWANG [[id number]] Allergies As of Date: 06/04/2024 Noted Allergy Reaction PENICILLINS 10/22/2019 2 - Rash 7 - Swelling TERAMYCIN (OXYTETRACYCLINE) 10/22/2019 16 - Unknown Date Reviewed: 06/04/2024 Reviewed by: Letty Barahona RN - Fully Assessed Reason for Visit: Prostate Cancer [590] Primary Visit Diagnosis:Malignant neoplasm of prostate (HCC) [C61] Order(s):PROSTATE-SPE CIFIC ANTIGEN DIAGNOSTIC [SQPSA] Order #: [id number] FUTURE Prescriptions as of 06/07/2024 - leuprolide [...] ORAL) (Discontinue (more content not included)... Normal [facility] CNOVSPon 05-20-2024 CNOVSP Visit (SP) Office (HEMASA) JOHNSADOLPH SOTO ([id number]) 1945 M Date Time Provider Department 05/20/24 2:00 PM MINOO GILL During your visit today, we recorded the following information about you: Temperature Pulse Respiration Blood pressure 97.6 degrees 79/minute 16/minute 120/72 Weight 117.9 kg Minoo Gill APRN.FOLDED TOWEL MACHINE OPERATOR 05/20/2024 4:04 PM Signed PATIENT NAME: Adolph [...] No difficulties with urination. Has returned from [place] Labs stable. MEDICATIONS: abiraterone 250 mg tablet [...] or petechiae. PATHOLOGY: 11/10/2022 Bladder tumor, [facility]BT [facility]) Metastatic poorly differentiated adenocarcinoma, consistent with [...] TISSUES: * (more content not included)... Normal [facility] Urology Office/Clinic Noteon 05-20-2024 Urology Office/Clinic Note [...] in dark side documents dated 09/27/21 from [facility]). PSMA PET scan 10/28/22 at [facility] - [...] [facility] [address], [place] [phone] Additional Instructions: 6 mos (more content not included)... Normal [facility] Comment on above: Result Comment: Electronically Signed By : Yosef GRIMES MD\.br\Date and Time Signed: 05/20/24 08:39 EDT\.br\Electronically Co-Signed By: Odette Cottrell\.br\Date and Time Co-Signed: 05/20/24 08:37 EDT CNPNon 05-16-2024 CNPN Telephone (NCCAP) ADOLPH JOHNS ([id number]) 1945 M Date Time Provider Department 05/16/24 [...] Status:Closed by HOLLY SPIVEY on 05/29/24 Normal [facility] Basic metabolic 2000 panelon 05-15-2024 Anion gap [Moles/Vol] 14 mmol/L Normal 8-15 [facility] Comment on above: Order Comment: Specimen Type: BLOOD SPEC IMENOrdering Facility: [facility] Address: [address] [place] [address] Performed By: #### 2 4321-2 ####[facility] LABCLIA [id number] [place] [address] Calcium [Mass/Vol] 10.2 mg/dL Normal 8.5-10.2 [facility] Comment on above: Order Comment: Specimen Type: BLOOD SPEC IMENOrdering Facility: [facility] Address: [address] [place] [address] Performed By: #### 2 4321-2 ####[facility] LABCLIA [id number] [place] [address] Chloride [Moles/Vol] 103 mmol/L Normal 98-107 [facility] Comment on above: Order Comment: Specimen Type: BLOOD SPEC IMENOrdering Facility: [facility] Address: [address] [place] [address] Performed By: #### 2 4321-2 ####[facility] LABCLIA [id number] [place] [address] CO2 [Moles/Vol] 24 mmol/L Normal 22-30 [facility] Comment on above: Order Comment: Specimen Type: BLOOD SPEC IMENOrdering Facility: [facility] Address: [address] [place] [address] Performed By: #### 2 4321-2 ####[facility] LABIA [id number] [place] [address] Creatinine [Mass/Vol] 1.40 mg/dL High 0.73-1.22 [facility] Comment on above: Order Comment: Specimen Type: BLOOD SPEC IMENOrdering Facility: [facility] Address: [address] [place] [address] Performed By: #### 2 4321-2 ####[facility] LABCLIA [id number] [place] [address] Creatinine and Glomerular filtration rate.predicted panel (S/P/Bld) 52 mL/min/1.73m??? Low >=60 [facility] Comment on above: Order Comment: Specimen Type: BLOOD SPEC IMENOrdering Facility: [facility] Address: [address] [place] [address] Result Comment: Paty mated Glomerular Filtration Rate [...] actual GFR. Performed By: #### 2 4321-2 ####[facility] LABCLIA [id number] [place] [address] Glucose [Mass/Vol] 224 mg/dL High 74-99 [facility] Comment on above: Order Comment: Specimen Type: BLOOD SPEC IMENOrdering Facility: [facility] Address: [address] [place] [address] Result Comment: The [place] [employer] (ADA) provides [...] [place] [employer]. Diabetes Care. 2016.39(Suppl 1). Performed By: #### 2 4321-2 ####[facility] LABCLIA [id number] [place] [address] Potassium [Moles/Vol] 4.0 mmol/L Normal 3.7-5.1 [facility] Comment on above: Order Comment: Specimen Type: BLOOD SPEC IMENOrdering Facility: [facility] Address: [address] [place] [address] Performed By: #### 2 4321-2 ####[facility] LABCLIA [id number] [place] [address] Sodium [Moles/Vol] 141 mmol/L Normal 136-144 [facility] Comment on above: Order Comment: Specimen Type: BLOOD SPEC IMENOrdering Facility: [facility] Address: [address] [place] [address] Performed By: #### 2 4321-2 ####[facility] LABCLIA [id number] [place] [address] Urea nitrogen [Mass/Vol] 20 mg/dL Normal 9-24 [facility] Comment on above: Order Comment: Specimen Type: BLOOD SPEC IMENOrdering Facility: [facility] Address: [address] [place] [address] Performed By: #### 2 4321-2 ####[facility] LABCLIA [id number] [place] [address] CBC W Auto Differential pane l (Bld)on 05-15-2024 Basophils (Bld) [#/Vol] 0.03 10*3/uL Normal <0.11 [facility] Comment on above: Order Comment: Specimen Type: BLOOD SPEC IMENOrdering Facility: [facility] Address: [address] [place] [address] Performed By: #### 5 7021-8 ####[facility] LABCLIA [id number] [place] [address] Basophils/100 WBC (Bld) 0.3 % Normal [facility] Comment on above: Order Comment: Specimen Type: BLOOD SPEC IMENOrdering Facility: [facility] Address: [address] [place] [address] Performed By: #### 5 7021-8 ####[facility] LABCLIA [id number] [place] [address] Differential cell count method Nom (Bld) Auto Normal [facility] Comment on above: Order Comment: Specimen Type: BLOOD SPEC IMENOrdering Facility: [facility] Address: [address] [place] [address] Performed By: #### 5 7021-8 ####[facility] LABCLIA [id number] [place] [address] Eosinophils (Bld) [#/Vol] 0.07 10*3/uL Normal <0.46 [facility] Comment on above: Order Comment: Specimen Type: BLOOD SPEC IMENOrdering Facility: [facility] Address: [address] [place] [address] Performed By: #### 5 7021-8 ####[facility] LABCLIA [id number] [place] [address] Eosinophils/100 WBC (Bld) 0.8 % Normal [facility] Comment on above: Order Comment: Specimen Type: BLOOD SPEC IMENOrdering Facility: [facility] Address: [address] [place] [address] Performed By: #### 5 7021-8 ####[facility] LABCLIA [id number] [place] [address] Erythrocyte distribution width (RBC) [Ratio] 14.2 % Normal 11.5-15.0 [facility] Comment on above: Order Comment: Specimen Type: BLOOD SPEC IMENOrdering Facility: [facility] Address: [address] [place] [address] Performed By: #### 5 7021-8 ####[facility] LABCLIA [id number] [place] [address] Hematocrit (Bld) [Volume fraction] 39.0 % Normal 39.0-51.0 [facility] Comment on above: Order Comment: Specimen Type: BLOOD SPEC IMENOrdering Facility: [facility] Address: [address] [place] [address] Performed By: #### 5 7021-8 ####[facility] LABCLIA [id number] [place] [address] Hemoglobin (Bld) [Mass/Vol] 12.9 g/dL Low 13.0-17.0 [facility] Comment on above: Order Comment: Specimen Type: BLOOD SPEC IMENOrdering Facility: [facility] Address: [address] [place] [address] Performed By: #### 5 7021-8 ####[facility] LABCLIA [id number] [place] [address] Immature granulocytes (Bld) [#/Vol] 0.13 10*3/uL High <0.10 [facility] Comment on above: Order Comment: Specimen Type: BLOOD SPEC IMENOrdering Facility: [facility] Address: [address] [place] [address] Performed By: #### 5 7021-8 ####[facility] LABCLIA [id number] [place] [address] Immature granulocytes/100 WBC (Bld) 1.5 % Normal [facility] Comment on above: Order Comment: Specimen Type: BLOOD SPEC IMENOrdering Facility: [facility] Address: [address] [place] [address] Performed By: #### 5 7021-8 ####[facility] LABCLIA [id number] [place] [address] Lymphocytes (Bld) [#/Vol] 0.80 10*3/uL Low 1.00-4.00 [facility] Comment on above: Order Comment: Specimen Type: BLOOD SPEC IMENOrdering Facility: [facility] Address: [address] [place] [address] Performed By: #### 5 7021-8 ####[facility] LABCLIA [id number] [place] [address] Lymphocytes/100 WBC (Bld) 9.0 % Normal [facility] Comment on above: Order Comment: Specimen Type: BLOOD SPEC IMENOrdering Facility: [facility] Address: [address] [place] [address] Performed By: #### 5 7021-8 ####[facility] LABCLIA [id number] [place] [address] MCH (RBC) [Entitic mass] 30.6 pg Normal 26.0-34.0 [facility] Comment on above: Order Comment: Specimen Type: BLOOD SPEC IMENOrdering Facility: [facility] Address: [address] [place] [address] Performed By: #### 5 7021-8 ####[facility] LABIA [id number] [place] [address] MCHC (RBC) [Mass/Vol] 33.1 g/dL Normal 30.5-36.0 [facility] Comment on above: Order Comment: Specimen Type: BLOOD SPEC IMENOrdering Facility: [facility] Address: [address] [place] [address] Performed By: #### 5 7021-8 ####[facility] LABCLIA [id number] [place] [address] MCV (RBC) [Entitic vol] 92.4 fL Normal 80.0-100.0 [facility] Comment on above: Order Comment: Specimen Type: BLOOD SPEC IMENOrdering Facility: [facility] Address: [address] [place] [address] Performed By: #### 5 7021-8 ####[facility] LABIA [id number] [place] [address] Monocytes (Bld) [#/Vol] 0.61 10*3/uL Normal <0.87 [facility] Comment on above: Order Comment: Specimen Type: BLOOD SPEC IMENOrdering Facility: [facility] Address: [address] [place] [address] Performed By: #### 5 7021-8 ####[facility] LABCLIA [id number] [place] [address] Monocytes/100 WBC (Bld) 6.9 % Normal [facility] Comment on above: Order Comment: Specimen Type: BLOOD SPEC IMENOrdering Facility: [facility] Address: [address] [place] [address] Performed By: #### 5 7021-8 ####[facility] LABCLIA [id number] [place] [address] Neutrophils (Bld) [#/Vol] 7.20 10*3/uL Normal 1.45-7.50 [facility] Comment on above: Order Comment: Specimen Type: BLOOD SPEC IMENOrdering Facility: [facility] Address: [address] [place] [address] Performed By: #### 5 7021-8 ####[facility] LABCLIA [id number] [place] [address] Neutrophils/100 WBC (Bld) 81.5 % Normal [facility] Comment on above: Order Comment: Specimen Type: BLOOD SPEC IMENOrdering Facility: [facility] Address: [address] [place] [address] Performed By: #### 5 7021-8 ####[facility] LABCLIA [id number] [place] [address] Nucleated RBC (Bld) [#/Vol] 10*3/uL Normal <0.01 [facility] Comment on above: Order Comment: Specimen Type: BLOOD SPEC IMENOrdering Facility: [facility] Address: [address] [place] [address] Performed By: #### 5 7021-8 ####[facility] LABCLIA [id number] [place] [address] Nucleated RBC/100 WBC (Bld) [Ratio] 0.0 /100 WBC Normal [facility] Comment on above: Order Comment: Specimen Type: BLOOD SPEC IMENOrdering Facility: [facility] Address: [address] [place] [address] Performed By: #### 5 7021-8 ####[facility] LABCLIA [id number] [place] [address] Platelet mean volume (Bld) [Entitic vol] 9.9 fL Normal 9.0-12.7 [facility] Comment on above: Order Comment: Specimen Type: BLOOD SPEC IMENOrdering Facility: [facility] Address: [address] [place] [address] Performed By: #### 5 7021-8 ####[facility] LABCLIA [id number] [place] [address] Platelets (Bld) [#/Vol] 160 10*3/uL Normal 150-400 [facility] Comment on above: Order Comment: Specimen Type: BLOOD SPEC IMENOrdering Facility: [facility] Address: [address] [place] [address] Performed By: #### 5 7021-8 ####[facility] LABIA [id number] [place] [address] RBC (Bld) [#/Vol] 4.22 10*6/uL Normal 4.20-6.00 [facility] Comment on above: Order Comment: Specimen Type: BLOOD SPEC IMENOrdering Facility: [facility] Address: [address] [place] [address] Performed By: #### 5 7021-8 ####[facility] LABIA [id number] [place] [address] WBC (Bld) [#/Vol] 8.84 10*3/uL Normal 3.70-11.00 [facility] Comment on above: Order Comment: Specimen Type: BLOOD SPEC IMENOrdering Facility: [facility] Address: [address] [place] [address] Performed By: #### 5 7021-8 ####[facility] LABCLIA [id number] [place] [address] IMMUNOFIXATION SCREEN, SERUM on 05-15-2024 INTERPRETATION (MPA) Atypical restricted bands are present in the IgG and lambda regions. Consistent with IgG lambda monoclonal gammopathy. Normal [facility] Comment on above: Order Comment: Specimen Type: BLOOD SPEC IMENOrdering Facility: [facility] Address: [address] [place] [address] Performed By: #### I FES ####[facility] LABIA [id number] [place] [address] [place] MPA RESULT M protein is present. Abnormal No M p rotein is identified. [facility] Comment on above: Order Comment: Specimen Type: BLOOD SPEC IMENOrdering Facility: [facility] Address: [address] [place] [address] Performed By: #### I FES ####[facility] LABIA [id number] [place] [address] [place] STAFF REVIEW ([facility]) Reviewed by Gonzalo Haro MD, Ph.D ([id number]) Normal [facility] Comment on above: Order Comment: Specimen Type: BLOOD SPEC IMENOrdering Facility: [facility] Address: [address] [place] [address] Performed By: #### I FESC ####[facility] LABIA [id number] [place] [address] [place] IMMUNOGLOBULINS,IGG,IGA,IGMo n 05-15-2024 IgA [Mass/Vol] 50 mg/dL Low 70-400 [facility] Comment on above: Order Comment: Specimen Type: BLOOD SPEC IMENOrdering Facility: [facility] Address: [address] [place] [address] Performed By: #### S ERIMM ####[facility] LABIA [id number] [place] [address] [place] IgG [Mass/Vol] 1119 mg/dL Normal 700-1600 [facility] Comment on above: Order Comment: Specimen Type: BLOOD SPEC IMENOrdering Facility: [facility] Address: [address] [place] [address] Performed By: #### S ERIMM ####[facility] LABCLIA [id number] [place] [address] [place] IgM [Mass/Vol] 69 mg/dL Normal 40-230 [facility] Comment on above: Order Comment: Specimen Type: BLOOD SPEC IMENOrdering Facility: [facility] Address: [address] [place] [address] Performed By: #### S ERIMM ####[facility] LABCLIA [id number] [place] [address] [place] KAPPA/LIM,FREE,SERon 2024 Immunoglobulin light chains.kappa.zaida e (S) [Mass/Vol] 23.6 mg/L High 3.3-19.4 [facility] Comment on above: Order Comment: Specimen Type: BLOOD SPEC IMENOrdering Facility: [facility] Address: [address] [place] [address] Result Comment: Rare ly, increased serum free light chains levels may not be detected or accurately quantified due to prozone phenomenon or in high viscosity samples using this immunoturbidimetric assay. Correlation with other laboratory results and clinical findings is recommended. The [place] Free Light Chain was performed using the Binding Site Optilite immunoturbidimetric method. Result obtained with different assay methods or kits cannot be used interchangeably. Performed By: #### K LFRS ####[facility] LABCLIA [id number] [place] [address] [place] Immunoglobulin light chains.kappa/Imm unoglobulin light chains.lambda (S) [Mass ratio] 1.34 Normal 0.26-1.65 [facility] Comment on above: Order Comment: Specimen Type: BLOOD SPEC IMENOrdering Facility: [facility] Address: [address] [place] [address] Performed By: #### K LFRS ####[facility] LABIA [id number] [place] [address] [place] Immunoglobulin light chains.lambda.fr ee [Mass/Vol] 17.6 mg/L Normal 5.7-26.3 [facility] Comment on above: Order Comment: Specimen Type: BLOOD SPEC IMENOrdering Facility: [facility] Address: [address] [place] [address] Result Comment: Rare ly, increased serum free [...] used interchangeably. Performed By: #### K LFRS ####[facility] [id number] [place] [address] [place] PROTEIN ELECTROPHORESIS SERU M WITH FAUSTINA (P)on 05-15-2024 Albumin [Mass/Vol] 3.99 g/dL Normal 3.43-5.41 [facility] Comment on above: Order Comment: Specimen Type: BLOOD SPEC IMENOrdering Facility: [facility] Address: [address] [place] [address] Performed By: #### L [id number] ####[facility] LABIA [id number] [place] [address] [place] Alpha 1 globulin Elph [Mass/Vol] 0.31 g/dL Normal 0.18-0.43 [facility] Comment on above: Order Comment: Specimen Type: BLOOD SPEC IMENOrdering Facility: [facility] Address: [address] [place] [address] Performed By: #### L [id number] ####[facility] LABCLIA [id number] [address] [place] Alpha 2 globulin Elph [Mass/Vol] 0.81 g/dL Normal 0.42-0.98 [facility] Comment on above: Order Comment: Specimen Type: BLOOD SPEC IMENOrdering Facility: [facility] Address: [address] [place] [address] Performed By: #### L [id number] ####[facility] LABIA [id number] [address] [place] Beta globulin Elph [Mass/Vol] 0.76 g/dL Normal 0.61-1.17 [facility] Comment on above: Order Comment: Specimen Type: BLOOD SPEC IMENOrdering Facility: [facility] Address: [address] [place] [address] Performed By: #### L [id number] ####[facility] LABIA [id number] [address] [place] COMMENT (SERUM PROT ELECTRO) Monoclonal Protein analysis (immunofixation) is not indicated. Normal [facility] Comment on above: Order Comment: Specimen Type: BLOOD SPEC IMENOrdering Facility: [facility] Address: [address] [place] [address] Performed By: #### L [id number] ####[facility] LABIA [id number] [place] [address] [place] Gamma globulin Elph [Mass/Vol] 1.03 g/dL Normal 0.53-1.51 [facility] Comment on above: Order Comment: Specimen Type: BLOOD SPEC IMENOrdering Facility: [facility] Address: [address] [place] [address] Performed By: #### L [id number] ####[facility] LABCLIA [id number] [place] [id number] [place] INTERPRETATION COMMENT FOR PROTEIN ELECTROPHORESIS See separate immunofixation report for characterization of monoclonal gammopathy. Normal [facility] Comment on above: Order Comment: Specimen Type: BLOOD SPEC IMENOrdering Facility: [facility] Address: [address] [place] [address] Performed By: #### L [id number] ####[facility] LABIA [id number] [place] [id number] [place] M-PROTEIN LOCATION Gamma Fraction 1 Normal [facility] Comment on above: Order Comment: Specimen Type: BLOOD SPEC IMENOrdering Facility: [facility] Address: [address] [place] [address] Performed By: #### L [id number] ####[facility] LABIA [id number] [place] [address] [place] Protein Fractions [Interp] An M protein is identified on protein electrophoresis. Abnormal No definitive M protein is identified on protein electrophoresis. [facility] Comment on above: Order Comment: Specimen Type: BLOOD SPEC IMENOrdering Facility: [facility] Address: [address] [place] [address] Performed By: #### L [id number] ####[facility] LABIA [id number] [place] [address] [place] Protein.monoclon al Elph [Mass/Vol] 0.78 g/dL High <=0.00 [facility] Comment on above: Order Comment: Specimen Type: BLOOD SPEC IMENOrdering Facility: [facility] Address: [address] [place] [address] Performed By: #### L [id number] ####[facility] LABIA [id number] [place] [id number] [place] SPE STAFF REVIEW Reviewed by Gonzalo Haro MD, Ph.D ([id number]) Normal [facility] Comment on above: Order Comment: Specimen Type: BLOOD SPEC IMENOrdering Facility: [facility] Address: [address] [place] [address] Performed By: #### L [id number] ####[facility] LABCLIA [id number] [place] [id number] [place] Prot SerPl-mCncon 05-15-2024 Protein [Mass/Vol] 6.9 g/dL Normal 6.3-8.0 [facility] Comment on above: Order Comment: Specimen Type: BLOOD SPEC IMENOrdering Facility: [facility] Address: [address] [place] [address] Performed By: #### 2 885-2 ####[facility] LABIA [id number] [place] [id number] [place] PSA SerPl-mCncon 05-07-2024 Prostate specific Ag [Mass/Vol] ng/mL Normal <2.60 [facility] Comment on above: Order Comment: Specimen Type: BLOOD SPEC IMENOrdering Facility: [facility] Address: [address] [place] [address] Result Comment: Tota l PSA test methodology used is the Electrochemiluminescence Immunoassay by [employer]. Total PSA values by differing methodologies cannot be interchanged. Performed By: #### 2 857-1 ####[facility] LABIA [id number] [place] [id number] [place] XR ABDOMEN 1V [...] any questions regarding this interpretation, please call [phone]. If you are unable to reach us at the number above, please feel free to contact [facility]iology at [phone]. [id number] Normal [facility] Urology Office/Clinic Noteon 03-04-2024 Urology Office/Clinic Note [...] in dark side documents dated 09/27/21 from [facility]). PSMA PET scan 10/28/22 at [facility] - Neg for mets; approx 1.5cm R [...] With When Contact Information Yosef GRIMES MD, [facility] [address], [place] [address] [phone] Additional Instructions: Has f/u 05/20/24 w/ PSA and Eligard and KUB, also to schedule cysto Patient Education Cystosc (more content not included)... Normal [facility] Comment on above: Result Comment: Electronically Signed By : Yosef GRIMES MD\.br\Date and Time Signed: 03/04/24 10:56 EST\.br\Electronically Co-Signed By: Odette Cottrell\.br\Date and Time Co-Signed: 03/04/24 10:55 EST James 02-22-2024 L - -------- Specimen: [id number] Received: 02/23/24-1220 Status: COLE Kay Num: [id number] Spec Type: Surgical Subm Dr: Yosef Grimes MD Tissues: A Urinary Bladder - TUR (BLADDER LESION) Procedures: HE/3, Gross/Micro L5, AE1-AE3, CK20, P53 -------- Age/ Patient Sex Location Account Attending Physician -------- Adolph Johns 78/M LABELL [id number] Yosef Grimes MD -------- SPEC NUM: [id number] RECD: 02/23/24 STATUS: COLE KAY NUM: [id number] JOSE ANGEL: 02/22/[address] [facility] DR: Yosef Grimes MD ENTERED: 02/23/[address]: William Peterson SPEC TYPE: Surgical DEPT: LUCY SALU ENTERED BY: [id number] RECV BY: [id number] ORDERED: HE/3, Gross/Micro L5, AE1-AE3, CK20, P53 [...] [id number] Received: 02/23/24-1220 Status: COLE Kay Num: [id number] Spec Type: Surgical Subm Dr: Yosef Grimes MD Tissues: A Urinary Bladder - TUR (BLADDER LESION) Procedures: HE/3, Gross/Micro L5, AE1-AE3, CK20, P53 -------- Patient: Adolph Johns [id number] (Continued) -------- Specimen: [id number] Received: 02/23/24 (Continued) Pathological Diagnosis (Continued) Signed (signature on file) Bertha Kline MD 02/27/241651 -------- Specimen: [id number] Received: 02/23/24 Status: COLE Sharita Num: [id number] Spec Type: Surgical Subm Dr: Yosef Grimes MD Tissues: A Urinary Bladder - TUR (BLADDER LESION) Procedures: HE/3, Gross/Micro L5, AE1-AE3, CK20, P53 -------- Patient: Adolph Johns [id number] (Continued) -------- Specimen: [id number] Received: 02/23/24-1220 (Continued) [...] urothelial layer in all fragments also show support services specialist or adequate streaming maturation -AE1/3 IHC did [...] performed supporting the above interpretation CPT Codes 39053 [id number] (more content not included)... Normal [facility] Heart and Vascular Office/Cl [...] Not Given Parent Or Guardian Refuses Normal [facility] Comment on above: Result Comment: Electronically Signed By : Bob ROSARIO, Meño\.br\Date and Time Signed: 01/23/24 13:[address] UROGRAM WO/W IVCONon 12- CT UROGRAM WO/W IVCON * * *Final Report* * * DATE OF EXAM: Jan 19 2024 9:37AM [facility] 0560 - CT UROGRAM WO/W IVCON / [...] Linear band of scarring right lower lobe. Application Programmer Analyst (topogram) images: Unremarkable. IMPRESSION: Decreased size of [...] any questions regarding this interpretation, please call [phone]. If you are unable to reach us at the number above, please feel free to contact [facility] eRadiology at [phone]. [id number] Normal [facility] Urine Cytology ([facility])on 03-17-2023 Microscopic exam Cytology (U) [Interp] Diagnosis Info Invalid Interpretation Code [facility] Comment on above: Result Comment: A:Urine,Urine:Voided Interpretation - Adequate cellularity for evaluation. CPT 91451 MicroScopic Description - Adequacy - Gross Description Site ID:A color Yellow fixative Alcohol Specimen designated Urine received in alcohol preservative and labeled with the patient???s name, consists of 50ml clear yellow fluid. Electronically signed by : on: 01/15/2024 13:14:46 Performed By: #### 1 [id number] ####[facility] [address] [place] [address] Ambulatory Visit Summaryon 1 03-12-2023 Ambulatory Visit [...] Yosef GRIMES MD Where: [facility] of [address] [address] 2024 11:00 AM EDT With: Where: [facility] [address] [address]- You Need to Schedule the Following Appointments Follow Up with Yosef GRIMES MD, URL When: Where: [facility] [address] [place] [address]- Medications What How Much When Instructions Unchanged [...] these instructions at home: Medicines ??? Take gopn-etw-ojsgayi and prescription medicines only as told by your health care provider. ??? If you were prescribed an antibiotic medicine, take it as told by your health care provider. Do not stop taking the antibiotic even if you start to feel better. ??? (more content not included)... Normal [facility] Urology Office/Clinic Noteon 01-10-2024 Urology Office/Clinic [...] in dark side documents dated 09/27/21 from [facility]). PSMA PET scan 10/28/22 at [facility] - Neg for mets; approx 1.5cm R [...] [facility] (more content not included)... Normal [facility] Comment on above: Result Comment: Electronically [...] Yosef GRIMES MD Where: [facility] [address] [facility] [place] [address]- Monday 12:45 PM EDT With: Yosef GRIMES MD Where: [facility] [address] [place] [address] 2024 11:00 AM EDT With: Where: [facility] [address] [address]- You Need to Schedule the Following Appointments Follow Up with Yosef GRIMES MD, URL When: Where: [facility] [address], [place] [address] [phone] Medications What How Much When Instructions New ciprofloxacin (Cipro 500 mg Tab) 1 Tablets By Mouth Every day take one tab day before procedure and one tab after procedure Pickup at [facility] 1424 Unchanged abiraterone (abiraterone 250 mg oral tablet) [...] physician if questions or concerns Pharmacy Information [facility] 1429: [address] [place], [place] [id number] [phone] Allergies oxytetracycline (Fever, Swelling at injection site) [...] microscope (biopsy (more content not included)... Normal [facility] Urine Cytology ([facility])on 03-10-2023 Method of Extraction Voided Normal [facility] Comment on above: Performed By: #### [id number] ####[facility] [address] [place] [address] Number of Jars 1 Invalid Interpretation Code [facility] Comment on above: Performed By: #### [id number] ####[facility] [address] [place] [address] Specimen Urine Normal [facility] Comment on above: Performed By: #### [id number] ####[facility] [address] [place] [address] Type of Service Technical Only Normal [facility] Comment on above: Performed By: #### [id number] ####[facility] [address] [place] [address] Urology Office/Clinic Noteon 01-08-2024 Urology Office/Clinic Note [...] negative margins. PSMA PET scan 10/28/22 at [facility] - neg for mets; approx 1.5cm R [...] GRIMES MD, URL [facility] [address] [place] [phone] Additional Instructions: sched cysto Patient Education Cystoscopy Hematuria, Adult I, Odette Cottrell, personally scribed for Dr. Grimes on 01/08/2024 10:14:36. . Documentation recorded by the Odette casas (more content not included)... Normal [facility] Comment on above: Result Comment: Electronically [...] Locations R1: This test was performed at: [facility], [address] [place] [address], [address] , [place], Normal [facility] Comment on above: Performed By: #### [id number] #### [facility] [address] [place] [address] Ambulatory Visit Summaryon 1 03-02-2023 Ambulatory Visit [...] GRIMES MD Where: [facility] [address] [place] [address]- Monday 12:45 PM EDT With: Yosef GRIMES MD Where: [facility] [address] [facility] [place] [address] 2024 11:00 AM EDT With: Where: [address] [address] Medications What How Much When Instructions Unchanged [...] for choosing us for your care. Normal [facility] [place] 12-29-2023 NORBERTO Telephone (RADTSA) ADOLPH JOHNS ([id number]) 1945 M Date Time Provider Department 12/29/23 [...] Encounter Status:Closed by PEGGY LAKHANI on 01/01/24 [facility] Ambulatory Visit Summaryon 1 Ambulatory Visit Summary [...] Yosef GRIMES MD Where: [facility] [address] [place] [address] 2024 11:00 AM EDT With: Where: [facility] [address] [address]- You Need to Schedule the Following Appointments Follow Up with Yosef GRIMES MD, URL When: Where: [address] [place] [address] Medications What How Much When Instructions Unchanged [...] diagnosed? Th (more content not included)... Normal [facility] Urology Office/Clinic Noteon 11-24-2023 Urology Office/Clinic [...] negative margins. PSMA PET scan 10/28/22 at [facility] - neg for mets; approx 1.5cm R [...] Information CORNELIO ROSARIO, Yosef Bunch, URL [address] [place] [address]- Additional Instructions: 6 mos w/ PSA & [...] biopsy of (more content not included)... Normal [facility] Comment on above: Result Comment: Electronically Signed By : Yosef GRIMES MD\.br\Date and Time Signed: 11/24/23 12:43 EDT\.br\Electronically Co-Signed By: Esme Noonan\.br\Date and Time Co-Signed: 11/24/23 12:36 EDT Basic metabolic 2000 panelOr dered By: Holly Díaz on 11-16-2023 Anion gap [Moles/Vol] 13 mmol/L 8 - 15 mmol/L [facility] Calcium [Mass/Vol] 10.3 mg/dL High 8.5 - 10.2 mg/dL [facility] Chloride [Moles/Vol] 102 mmol/L 98 - 107 mmol/L [facility] CO2 [Moles/Vol] 23 mmol/L 22 - 30 mmol/L [facility] Creatinine [Mass/Vol] 1.35 mg/dL High 0.73 - 1.22 mg/dL [facility] GFR/1.73 sq M.predicted among non-blacks MDRD (S/P/Bld) [Vol rate/Area] 54 mL/min/{1.73_m2} Low - PINF [facility] Comment on above: Estimated Glomerular Filtration Rate [...] 276 mg/dL High 74 - 99 mg/dL [facility] Comment on above: The [place] Diabetes Association (ADA) provides guidance [...] [place] [employer]. Diabetes Care. 2016.39(Suppl 1). Interpretation and review of laboratory results Abnormal [facility] Potassium [Moles/Vol] 4.0 mmol/L 3.7 - 5.1 mmol/L [facility] Sodium [Moles/Vol] 138 mmol/L 136 - 144 mmol/L [facility] Urea nitrogen [Mass/Vol] 22 mg/dL 9 - 24 mg/dL [facility] Basic metabolic 2000 panelon 11-16-2023 Anion gap [Moles/Vol] 13 mmol/L Normal 8-15 [facility] Comment on above: Order Comment: Specimen Type: BLOOD SPEC IMENOrdering Facility: [facility] Address: [address] [place] [id number] Performed By: #### 2 4321-2 ####[facility] LABCLIA [id number] [place] [address] Calcium [Mass/Vol] 10.3 mg/dL High 8.5-10.2 [facility] Comment on above: Order Comment: Specimen Type: BLOOD SPEC IMENOrdering Facility: [facility] Address: [address] [place] [address] Performed By: #### 2 4321-2 ####[facility] LABCLIA [id number] [place] [address] Chloride [Moles/Vol] 102 mmol/L Normal 98-107 [facility] Comment on above: Order Comment: Specimen Type: BLOOD SPEC IMENOrdering Facility: [facility] Address: [address] [place] [address] Performed By: #### 2 4321-2 ####[facility] LABCLIA [id number] [place] [address] CO2 [Moles/Vol] 23 mmol/L Normal 22-30 [facility] Comment on above: Order Comment: Specimen Type: BLOOD SPEC IMENOrdering Facility: [facility] Address: [address] [place] [address] Performed By: #### 2 4321-2 ####[facility] LABCLIA [id number] [place] [address] Creatinine [Mass/Vol] 1.35 mg/dL High 0.73-1.22 [facility] Comment on above: Order Comment: Specimen Type: BLOOD SPEC IMENOrdering Facility: [facility] Address: [address] [place] [address] Performed By: #### 2 4321-2 ####[facility] LABCLIA [id number] [place] [address] Creatinine and Glomerular filtration rate.predicted panel (S/P/Bld) 54 mL/min/1.73m??? Low >=60 [facility] Comment on above: Order Comment: Specimen Type: BLOOD SPEC IMENOrdering Facility: [facility] Address: [address] [place] [address] Result Comment: Paty mated Glomerular Filtration Rate [...] actual GFR. Performed By: #### 2 4321-2 ####[facility] LABCLIA [id number] [place] [address] Glucose [Mass/Vol] 276 mg/dL High 74-99 [facility] Comment on above: Order Comment: Specimen Type: BLOOD SPEC IMENOrdering Facility: [facility] Address: [address] [place] [address] Result Comment: The [place] Diabetes Association (ADA) provides [...] [place] [employer]. Diabetes Care. 2016.39(Suppl 1). Performed By: #### 2 4321-2 ####[facility] LABCLIA [id number] [place] [address] Potassium [Moles/Vol] 4.0 mmol/L Normal 3.7-5.1 [facility] Comment on above: Order Comment: Specimen Type: BLOOD SPEC IMENOrdering Facility: [facility] Address: [address] [place] [address] Performed By: #### 2 4321-2 ####[facility] LABCLIA [id number] [place] [address] Sodium [Moles/Vol] 138 mmol/L Normal 136-144 [facility] Comment on above: Order Comment: Specimen Type: BLOOD SPEC IMENOrdering Facility: [facility] Address: [address] [place] [address] Performed By: #### 2 4321-2 ####[facility] LABCLIA [id number] [place] [address] Urea nitrogen [Mass/Vol] 22 mg/dL Normal 9-24 [facility] Comment on above: Order Comment: Specimen Type: BLOOD SPEC IMENOrdering Facility: [facility] Address: [address] [place] [address] Performed By: #### 2 4321-2 ####[facility] LABCLIA [id number] [place] [address] CBC W Auto Differential pane l (Bld)on 11-16-2023 Basophils (Bld) [#/Vol] 0.03 10*3/uL [facility] Basophils/100 WBC (Bld) 0.4 % [facility] Differential cell count method Nom (Bld) Auto [facility] Eosinophils (Bld) [#/Vol] 0.08 10*3/uL [facility] Eosinophils/100 WBC (Bld) 1.0 % [facility] Erythrocyte distribution width (RBC) [Ratio] 14.6 % 11.5 - 15.0 % [facility] Hematocrit (Bld) [Volume fraction] 40.6 % 39.0 - 51.0 % [facility] Hemoglobin (Bld) [Mass/Vol] 13.7 g/dL 13.0 - 17.0 g/dL [facility] Immature granulocytes (Bld) [#/Vol] 0.12 10*3/uL High [facility] Immature granulocytes/100 WBC (Bld) 1.5 % [facility] Interpretation and review of laboratory results Abnormal [facility] Lymphocytes (Bld) [#/Vol] 0.64 10*3/uL Low [facility] Lymphocytes/100 WBC (Bld) 7.9 % [facility] MCH (RBC) [Entitic mass] 30.6 pg 26.0 - 34.0 pg [facility] MCHC (RBC) [Mass/Vol] 33.7 g/dL 30.5 - 36.0 g/dL [facility] MCV (RBC) [Entitic vol] 90.8 fL 80.0 - 100.0 fL [facility] Monocytes (Bld) [#/Vol] 0.50 10*3/uL [facility] Monocytes/100 WBC (Bld) 6.2 % [facility] Neutrophils (Bld) [#/Vol] 6.74 10*3/uL [facility] Neutrophils/100 WBC (Bld) 83.0 % [facility] Nucleated RBC (Bld) [#/Vol] NINF [facility] Nucleated RBC/100 WBC (Bld) [Ratio] 0.0 % /100 WBC [facility] Platelet mean volume (Bld) [Entitic vol] 10.2 fL 9.0 - 12.7 fL [facility] Platelets (Bld) [#/Vol] 191 10*3/uL [facility] RBC (Bld) [#/Vol] 4.47 10*6/uL 4.20 - 6.00 m/uL [facility] WBC (Bld) [#/Vol] 8.11 10*3/uL [facility] Basophils (Bld) [#/Vol] 0.03 10*3/uL Normal <0.11 [facility] Comment on above: Order Comment: Specimen Type: BLOOD SPEC IMENOrdering Facility: [facility] Address: [address] [place] [address] Performed By: #### 5 7021-8 ####[facility] LABCLIA [id number] [place] [address] Basophils/100 WBC (Bld) 0.4 % Normal [facility] Comment on above: Order Comment: Specimen Type: BLOOD SPEC IMENOrdering Facility: [facility] Address: [address] [place] [address] Performed By: #### 5 7021-8 ####[facility] LABCLIA [id number] [place] [address] Differential cell count method Nom (Bld) Auto Normal [facility] Comment on above: Order Comment: Specimen Type: BLOOD SPEC IMENOrdering Facility: [facility] Address: [address] [place] [address] Performed By: #### 5 7021-8 ####[facility] LABCLIA [id number] [place] [address] Eosinophils (Bld) [#/Vol] 0.08 10*3/uL Normal <0.46 [facility] Comment on above: Order Comment: Specimen Type: BLOOD SPEC IMENOrdering Facility: [facility] Address: [address] [place] [address] Performed By: #### 5 7021-8 ####[facility] LABCLIA [id number] [place] [address] Eosinophils/100 WBC (Bld) 1.0 % Normal [facility] Comment on above: Order Comment: Specimen Type: BLOOD SPEC IMENOrdering Facility: [facility] Address: [address] [place] [address] Performed By: #### 5 7021-8 ####[facility] LABCLIA [id number] [place] [address] Erythrocyte distribution width (RBC) [Ratio] 14.6 % Normal 11.5-15.0 [facility] Comment on above: Order Comment: Specimen Type: BLOOD SPEC IMENOrdering Facility: [facility] Address: [address] [place] [address] Performed By: #### 5 7021-8 ####[facility] LABCLIA [id number] [place] [address] Hematocrit (Bld) [Volume fraction] 40.6 % Normal 39.0-51.0 [facility] Comment on above: Order Comment: Specimen Type: BLOOD SPEC IMENOrdering Facility: [facility] Address: [address] [place] [address] Performed By: #### 5 7021-8 ####[facility] LABCLIA [id number] [place] [address] Hemoglobin (Bld) [Mass/Vol] 13.7 g/dL Normal 13.0-17.0 [facility] Comment on above: Order Comment: Specimen Type: BLOOD SPEC IMENOrdering Facility: [facility] Address: [address] [place] [address] Performed By: #### 5 7021-8 ####[facility] LABCLIA [id number] [place] [address] Immature granulocytes (Bld) [#/Vol] 0.12 10*3/uL High <0.10 [facility] Comment on above: Order Comment: Specimen Type: BLOOD SPEC IMENOrdering Facility: [facility] Address: [address] [place] [address] Performed By: #### 5 7021-8 ####[facility] LABCLIA [id number] [place] [address] Immature granulocytes/100 WBC (Bld) 1.5 % Normal [facility] Comment on above: Order Comment: Specimen Type: BLOOD SPEC IMENOrdering Facility: [facility] Address: [address] [place] [address] Performed By: #### 5 7021-8 ####[facility] LABCLIA [id number] [place] [address] Lymphocytes (Bld) [#/Vol] 0.64 10*3/uL Low 1.00-4.00 [facility] Comment on above: Order Comment: Specimen Type: BLOOD SPEC IMENOrdering Facility: [facility] Address: [address] [place] [address] Performed By: #### 5 7021-8 ####[facility] LABCLIA [id number] [place] [address] Lymphocytes/100 WBC (Bld) 7.9 % Normal [facility] Comment on above: Order Comment: Specimen Type: BLOOD SPEC IMENOrdering Facility: [facility] Address: [address] [place] [address] Performed By: #### 5 7021-8 ####[facility] LABCLIA [id number] [place] [address] MCH (RBC) [Entitic mass] 30.6 pg Normal 26.0-34.0 [facility] Comment on above: Order Comment: Specimen Type: BLOOD SPEC IMENOrdering Facility: [facility] Address: [address] [place] [address] Performed By: #### 5 7021-8 ####[facility] LABIA [id number] [place] [address] MCHC (RBC) [Mass/Vol] 33.7 g/dL Normal 30.5-36.0 [facility] Comment on above: Order Comment: Specimen Type: BLOOD SPEC IMENOrdering Facility: [facility] Address: [address] [place] [address] Performed By: #### 5 7021-8 ####[facility] LABCLIA [id number] [place] [address] MCV (RBC) [Entitic vol] 90.8 fL Normal 80.0-100.0 [facility] Comment on above: Order Comment: Specimen Type: BLOOD SPEC IMENOrdering Facility: [facility] Address: [address] [place] [address] Performed By: #### 5 7021-8 ####[facility] LABIA [id number] [place] [address] Monocytes (Bld) [#/Vol] 0.50 10*3/uL Normal <0.87 [facility] Comment on above: Order Comment: Specimen Type: BLOOD SPEC IMENOrdering Facility: [facility] Address: [address] [place] [address] Performed By: #### 5 7021-8 ####[facility] LABCLIA [id number] [place] [address] Monocytes/100 WBC (Bld) 6.2 % Normal [facility] Comment on above: Order Comment: Specimen Type: BLOOD SPEC IMENOrdering Facility: [facility] Address: [address] [place] [address] Performed By: #### 5 7021-8 ####[facility] LABCLIA [id number] [place] [address] Neutrophils (Bld) [#/Vol] 6.74 10*3/uL Normal 1.45-7.50 [facility] Comment on above: Order Comment: Specimen Type: BLOOD SPEC IMENOrdering Facility: [facility] Address: [address] [place] [address] Performed By: #### 5 7021-8 ####[facility] LABCLIA [id number] [place] [address] Neutrophils/100 WBC (Bld) 83.0 % Normal [facility] Comment on above: Order Comment: Specimen Type: BLOOD SPEC IMENOrdering Facility: [facility] Address: [address] [place] [address] Performed By: #### 5 7021-8 ####[facility] LABCLIA [id number] [place] [address] Nucleated RBC (Bld) [#/Vol] 10*3/uL Normal <0.01 [facility] Comment on above: Order Comment: Specimen Type: BLOOD SPEC IMENOrdering Facility: [facility] Address: [address] [place] [address] Performed By: #### 5 7021-8 ####[facility] LABCLIA [id number] [place] [address] Nucleated RBC/100 WBC (Bld) [Ratio] 0.0 /100 WBC Normal [facility] Comment on above: Order Comment: Specimen Type: BLOOD SPEC IMENOrdering Facility: [facility] Address: [address] [place] [address] Performed By: #### 5 7021-8 ####[facility] LABCLIA [id number] [place] [address] Platelet mean volume (Bld) [Entitic vol] 10.2 fL Normal 9.0-12.7 [facility] Comment on above: Order Comment: Specimen Type: BLOOD SPEC IMENOrdering Facility: [facility] Address: [address] [place] [address] Performed By: #### 5 7021-8 ####[facility] LABCLIA [id number] [place] [address] Platelets (Bld) [#/Vol] 191 10*3/uL Normal 150-400 [facility] Comment on above: Order Comment: Specimen Type: BLOOD SPEC IMENOrdering Facility: [facility] Address: [address] [place] [address] Performed By: #### 5 7021-8 ####[facility] LABIA [id number] [place] [address] RBC (Bld) [#/Vol] 4.47 10*6/uL Normal 4.20-6.00 [facility] Comment on above: Order Comment: Specimen Type: BLOOD SPEC IMENOrdering Facility: [facility] Address: [address] [place] [address] Performed By: #### 5 7021-8 ####[facility] LABIA [id number] [place] [address] WBC (Bld) [#/Vol] 8.11 10*3/uL Normal 3.70-11.00 [facility] Comment on above: Order Comment: Specimen Type: BLOOD SPEC IMENOrdering Facility: 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 Allergies As of Date: 11/16/2023 Noted Allergy Reaction PENICILLINS 10/22/2019 2 - Rash 7 - Swelling TERAMYCIN (OXYTETRACYCLINE) 10/22/2019 16 - Unknown Date Reviewed: 11/16/2023 Reviewed by: Bettina Sargent MA - Fully Assessed Reason for Visit: Prostate Cancer [590] Primary Visit Diagnosis:Malignant neoplasm of prostate (HCC) [C61] Order(s):PROSTATE-SPE CIFIC ANTIGEN DIAGNOSTIC [SQPSA] Order #: [id number] FUTURE Prescriptions as of 11/24/2023 - abiraterone [...] Date 11/16/2023 Noted Resolved Secondary hyperparathyroidism ([facility]) [N25.81] 01/16/2023 Platelets decreased ([facility]) [D69.6] 01/16/2023 Visit Notes: >> Peggy Lakhani RN [facility] Nov 16, 2023 2:14 PM Status: Signed AUA 6 Peggy Lakhani RN Disposition: Return in about 6 months (around 05/16/2024). Follow-up and Disposition History for Encounter Date Provider Department Center 11/16/2023 [id number] KUMARI [facility] Latoya Metzy Encounter Status:Closed by David KUMARI on 11/24/23 [facility] CNOVSPon 11-16-2023 CNOVSP Visit (SP) Office ([facility]) ADOLPH JOHNS ([id number]) 1945 M Date Time Provider Department 11/16/23 [...] with urination. He plans to travel to [place] next week where he plans to spend [...] or petechiae. PATHOLOGY: 11/10/2022 Bladder tumor, TURBT ([facility]) Metastatic poorly differentiated adenocarcinoma, consistent with [...] nodes BONES/SOFT (more content not included)... Normal [facility] IMMUNOFIXATION SCREEN, SERUM on 11-16-2023 INTERPRETATION (MPA) Atypical restricted bands are present in the IgG and lambda regions. Consistent with IgG lambda monoclonal gammopathy. Normal [facility] Comment on above: Order Comment: Specimen Type: BLOOD SPEC IMENOrdering Facility: [facility] Address: [address] [place] [address] Performed By: #### I FESC ####[facility] LABCLIA [id number] [place] [address] [place] MPA RESULT M protein is present. Abnormal No M p rotein is identified. [facility] Comment on above: Order Comment: Specimen Type: BLOOD SPEC IMENOrdering Facility: [facility] Address: [address] [place] [address] Performed By: #### I FESC ####[facility] LABCLIA [id number] [place] [address] [place] STAFF REVIEW (MPA) Reviewed by Therese Junior MD Normal [facility] Comment on above: Order Comment: Specimen Type: BLOOD SPEC IMENOrdering Facility: [facility] Address: [address] [place] [address] Performed By: #### I FESC ####[facility] LABCLIA [id number] [place] [address] [place] IMMUNOGLOBULINS,IGG,IGA,IGMo n 11-16-2023 IgA [Mass/Vol] 55 mg/dL Low 70-400 [facility] Comment on above: Order Comment: Specimen Type: BLOOD SPEC IMENOrdering Facility: [facility] Address: [address] [place] [address] Performed By: #### S ERIMM ####[facility] LABCLIA [id number] [place] [address] [place] IgG [Mass/Vol] 1242 mg/dL Normal 700-1600 [facility] Comment on above: Order Comment: Specimen Type: BLOOD SPEC IMENOrdering Facility: [facility] Address: [address] [place] [address] Performed By: #### S ERIMM ####[facility] LABCLIA [id number] [place] [address] [place] IgM [Mass/Vol] 72 mg/dL Normal 40-230 [facility] Comment on above: Order Comment: Specimen Type: BLOOD SPEC IMENOrdering Facility: [facility] Address: [address] [place] [address] Performed By: #### S ERIMM ####[facility] LABCLIA [id number] [place] [address] [place] KAPPA/LIM,FREE,SERon 2023 Immunoglobulin light chains.kappa.zaida e (S) [Mass/Vol] 25.0 mg/L High 3.3-19.4 [facility] Comment on above: Order Comment: Specimen Type: BLOOD SPEC IMENOrdering Facility: [facility] Address: [address] [place] [address] Result Comment: Rare ly, increased serum free light chains levels may not be detected or accurately quantified due to prozone phenomenon or in high viscosity samples using this immunoturbidimetric assay. Correlation with other laboratory results and clinical findings is recommended. The [place] Free Light Chain was performed using the Binding Site Optilite immunoturbidimetric method. Result obtained with different assay methods or kits cannot be used interchangeably. Performed By: #### K LFRS ####[facility] LABIA [id number] [place] [address] [place] Immunoglobulin light chains.kappa/Imm unoglobulin light chains.lambda (S) [Mass ratio] 1.45 Normal 0.26-1.65 [facility] Comment on above: Order Comment: Specimen Type: BLOOD SPEC IMENOrdering Facility: [facility] Address: [address] [place] [address] Performed By: #### K LFRS ####[facility] LABIA [id number] [place] [address] [place] Immunoglobulin light chains.lambda.fr ee [Mass/Vol] 17.2 mg/L Normal 5.7-26.3 [facility] Comment on above: Order Comment: Specimen Type: BLOOD SPEC IMENOrdering Facility: [facility] Address: [address] [place] [address] Result Comment: Rare ly, increased serum free [...] used interchangeably. Performed By: #### K LFRS ####[facility] LABIA [id number] [place] [address] [place] PROTEIN ELECTROPHORESIS SERU M WITH FAUSTINA (P)on 11-16-2023 Albumin [Mass/Vol] 4.23 g/dL Normal 3.43-5.41 [facility] Comment on above: Order Comment: Specimen Type: BLOOD SPEC IMENOrdering Facility: [facility] Address: [address] [place] [address] Performed By: #### L [id number] ####[facility] LABIA [id number] [place] [address] [place] Alpha 1 globulin Elph [Mass/Vol] 0.32 g/dL Normal 0.18-0.43 [facility] Comment on above: Order Comment: Specimen Type: BLOOD SPEC IMENOrdering Facility: [facility] Address: [address] [place] [address] Performed By: #### L [id number] ####[facility] LABIA [id number] [place] [address] [place] Alpha 2 globulin Elph [Mass/Vol] 0.80 g/dL Normal 0.42-0.98 [facility] Comment on above: Order Comment: Specimen Type: BLOOD SPEC IMENOrdering Facility: [facility] Address: [address] [place] [address] Performed By: #### L [id number] ####[facility] LABIA [id number] [place] [address] [place] Beta globulin Elph [Mass/Vol] 0.77 g/dL Normal 0.61-1.17 [facility] Comment on above: Order Comment: Specimen Type: BLOOD SPEC IMENOrdering Facility: [facility] Address: [address] [place] [address] Performed By: #### L [id number] ####[facility] LABIA [id number] [place] [address] [place] COMMENT (SERUM PROT ELECTRO) Monoclonal Protein analysis (immunofixation) is not indicated. Normal [facility] Comment on above: Order Comment: Specimen Type: BLOOD SPEC IMENOrdering Facility: [facility] Address: [address] [place] [address] Performed By: #### L [id number] ####[facility] LABIA [id number] [place] [address] [place] Gamma globulin Elph [Mass/Vol] 1.18 g/dL Normal 0.53-1.51 [facility] Comment on above: Order Comment: Specimen Type: BLOOD SPEC IMENOrdering Facility: [facility] Address: [address] [place] [address] Performed By: #### L [id number] ####[facility] LABIA [id number] [place] [address] [place] INTERPRETATION COMMENT FOR PROTEIN ELECTROPHORESIS See separate immunofixation report for characterization of monoclonal gammopathy. Normal [facility] Comment on above: Order Comment: Specimen Type: BLOOD SPEC IMENOrdering Facility: [facility] Address: [address] [place] [address] Performed By: #### L [id number] ####[facility] [id number] [place] [address] [place] M-PROTEIN LOCATION Gamma Fraction 1 Normal [facility] Comment on above: Order Comment: Specimen Type: BLOOD SPEC IMENOrdering Facility: [facility] Address: [address] [place] [address] Performed By: #### L [id number] ####[facility] [id number] [place] [address] [place] Protein Fractions [Interp] An M protein is identified on protein electrophoresis. Abnormal No definitive M protein is identified on protein electrophoresis. [facility] Comment on above: Order Comment: Specimen Type: BLOOD SPEC IMENOrdering Facility: [facility] Address: [address] [place] [address] Performed By: #### L [id number] ####[facility] LABIA [id number] [place] [address] [place] Protein.monoclon al Elph [Mass/Vol] 0.73 g/dL High <=0.00 [facility] Comment on above: Order Comment: Specimen Type: BLOOD SPEC IMENOrdering Facility: [facility] Address: [address] [place] [address] Performed By: #### L [id number] ####[facility] LABIA [id number] [place] [address] [place] SPE STAFF REVIEW Reviewed by Therese Junior MD [facility] Comment on above: Order Comment: Specimen Type: BLOOD SPEC IMENOrdering Facility: [facility] Address: [address] [place] [address] Performed By: #### L [id number] ####[facility] LABCLIA [id number] [place] [id number] [facility] Prot SerPl-mCncon 11-16-2023 Protein [Mass/Vol] 7.3 g/dL Normal 6.3-8.0 [facility] Comment on above: Order Comment: Specimen Type: BLOOD SPEC IMENOrdering Facility: [facility] Address: [address] [place] [address] Performed By: #### 2 885-2 ####[facility] LABCLIA [id number] [address] [place] Lipid 1996 panelon Cholesterol [Mass/Vol] 167 mg/dL Normal <200 [facility] Comment on above: Order Comment: Specimen Type: BLOOD SPEC IMENOrdering Facility: External Submitter Address: , , Result Comment: <200 mg/dL, Desirable 200-239 mg/dL, Borderline high >239 mg/dL, High Performed By: #### 2 4331-1 ####[facility] LABCLIA [id number] [address] LABCLIA [id number] [place] [id number] Cholesterol in HDL [Mass/Vol] 37 mg/dL Low >39 [facility] Comment on above: Order Comment: Specimen Type: BLOOD SPEC IMENOrdering Facility: External Submitter Address: , , Result Comment: 40-5 9 mg/dL, Acceptable >59 mg/dL, High: Negative risk factor for coronary heart disease <40 mg/dL, Low: Positive risk factor for coronary heart disease Performed By: #### 2 4331-1 ####[facility] LABCLIA [id number] [address] [address] [facility] LABCLIA [id number] [place] [address] Cholesterol in LDL [Mass/Vol] 59 mg/dL Normal <100 [facility] Comment on above: Order Comment: Specimen Type: BLOOD SPEC IMENOrdering Facility: External Submitter Address: , , Result Comment: <100 mg/dL, Optimal 100-129 mg/dL, Near optimal/above optimal 130-159 mg/dL, Borderline high 160-189 mg/dL, High >189 mg/dL, Very high Secondary prevention optimal LDL Cholesterol levels are recommended to be < 70 mg/dL Performed By: #### 2 4331-1 ####[facility] LABCLIA [id number] [address] LABCLIA [id number] [place] [address] Cholesterol in LDL/Cholesterol in HDL [Mass ratio] 1.59 {ratio} Normal <2.54 [facility] Comment on above: Order Comment: Specimen Type: BLOOD SPEC IMENOrdering Facility: External Submitter Address: , , Result Comment: Refshabnam rock: 1. National Cholesterol Education Program ATP III Guideline At-A-Glance Quick Desk Reference: National Heart, Lung, and Blood Mathews. National Institutes of Health. 2001: NIH Publication No. 01-3305. 2. An International Atherosclerosis Society position paper: global recommendations for the management of dyslipidemia: executive summary, Atherosclerosis. 2014: 232(2):410-413. Performed By: #### 2 4331-1 ####[facility] LABIA [id number] [place] [id number] [facility] LABCLIA [id number] [place] [address] Cholesterol in VLDL [Mass/Vol] 71 mg/dL High <30 [facility] Comment on above: Order Comment: Specimen Type: BLOOD SPEC IMENOrdering Facility: External Submitter Address: , , Performed By: #### 2 4331-1 ####[facility] LABCLIA [id number] [address] LABCLIA [id number] [place] [address] Cholesterol non HDL [Mass/Vol] 130 mg/dL High <130 [facility] Comment on above: Order Comment: Specimen Type: BLOOD SPEC IMENOrdering Facility: External Submitter Address: , , Result Comment: <130 mg/dL, Optimal 130-159 mg/dL, Near optimal/above optimal 160-189 mg/dL, Borderline high 190-219 mg/dL, High >219 mg/dL, Very high Secondary prevention optimal non HDL Cholesterol levels are recommended to be <100 mg/dL Performed By: #### 2 4331-1 ####[facility] LABCLIA [id number] [address] LABCLIA [id number] [place] [address] Cholesterol.tota l/Cholesterol in HDL [Mass ratio] 4.51 {ratio} Normal <5.10 [facility] Comment on above: Order Comment: Specimen Type: BLOOD SPEC IMENOrdering Facility: External Submitter Address: , , Performed By: #### 2 4331-1 ####[facility] LABCLIA [id number] [address] LABCLIA [id number] [place] [id number] FASTING TIME 2 hrs Normal [facility] Comment on above: Order Comment: Specimen Type: BLOOD SPEC IMENOrdering Facility: External Submitter Address: , , Result Comment: nonf asting Performed By: #### 2 4331-1 ####[facility] LABCLIA [id number] [place] [id number] [facility] LABCLIA [id number] [place] [address] Triglyceride [Mass/Vol] 357 mg/dL High <150 [facility] Comment on above: Order Comment: Specimen Type: BLOOD SPEC IMENOrdering Facility: External Submitter Address: , , Result Comment: <150 mg/dL, Normal 150-199 mg/dL, Borderline high 200-499 mg/dL, High >499 mg/dL, Very high Performed By: #### 2 4331-1 ####[facility] LABCLIA [id number] [address] LABCLIA [id number] [place] [address] PSA [facility] Prostate specific Ag [Mass/Vol] ng/mL Normal <2.60 [facility] Comment on above: Order Comment: Specimen Type: BLOOD SPEC IMENOrdering Facility: [facility] Address: [address] [place] [address] Result Comment: [place] PSA test methodology used is the Electrochemiluminescence Immunoassay by [employer]. Total PSA values by differing methodologies cannot be interchanged. Performed By: #### 2 857-1 ####[facility] LABCLIA [id number] [address] Ambulatory Visit Summaryon 0 10-24-2023 Ambulatory [...] ROSARIO, Yosef Bunch Where: [facility] [address] [place] [address]- 2024 11:00 AM EDT With: Where: [facility] [address] [address]- Medications What How Much When Instructions Unchanged [...] call (more content not included)... Normal [facility] Office/Clini c Noteon 10-24-2023 [...] of clutter to prevent tripping and/or falling. [place] Advance Directives reviewed. 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 No concerns with bowel/ [...] Radical retropu (more content not included)... Normal [facility] Comment on above: Result Comment: Electronically [...] Appointments Monday 1:00 PM EDT With: Where: [facility] [address] [address]- Monday 11:00 AM EDT With: Yosef GRIMES MD Where: [facility] [address] [place] [address]- Medications What How Much When Instructions Unchanged [...] choosing us for your care. Normal [facility] Family Medicine Office/Clini c Noteon 09-27-2023 [...] for 90 day(s), 90 tab(s), Refill(s) 3, [facility] 14[facility], 185, cm, 09/27/23 11:20:00 EDT, Height/Length Dosing, 116, kg, 09/27/23 11:20:00 EDT, Weight Dosing hydrochlorothiazide-l isinopril, 1 tab(s), Oral, Daily, 30 tab(s), Refill(s) 0, [facility] 1429, 190, cm, 05/22/23 11:33:00 EDT, [...] Cancer - unknown origin: Father. Hypertension: Mother. [facility] Comment on above: Result Comment: Electronically Signed By : Shilpa Naylor\.arun\Date and Time Signed: 09/27/23 12:26 EDT Consultation Noteon 05-29-19 Consultation Note [id number] .00TIFF [facility] Consultation Noteon 05-26-19 Consultation Note [id number] .00TIFF [facility] Ambulatory Visit Summaryon 0 05-22-2023 Ambulatory [...] Appointments Monday 1:00 PM EDT With: Where: [facility] [place] Normal [address] [place] [address] [place] [address]- \.br\ You Need to Schedule the Following Appointments\.br\ Follow Up with CORNELIO ROSARIO, Yosef Bunch, URL When: \.br\ Comments:\.br\ 6 mos w/ PSA (gets level from [facility])\.br\ Where:\.br\ [facility] [address]\ [place] [address]-\.br\ [phone]\.br\ Medications\.br\ What How Much When Instructions\.br\ Unchanged [...] Where to find more information\.br\ ? \.br\ [employer] [employer]: www.cancer.org\.br\ ? \.br\ National Cancer Mathews: www.cancer.gov\.br\ Contact a health care provider if:\.br\ [...] lower half of your body.\.br\ ? \.br\ [facility] Patient Educationon 05-22-19 Patient Education Oncology Hormone [...] cancer. Where to find more information ? [place] [employer]: www.cancer.org ? National Cancer Mathews: www.cancer.gov Contact a health care provider if: [...] an emergenc (more content not included)... Normal [facility] Urology Office/Clinic Noteon 05-22-2023 Urology Office/Clinic [...] - <0.02 PSMA PET scan 10/28/22 at [facility] - neg for mets; approx 1.5cm R [...] Bunch, URL [facility] [address] [place] [address] [phone] Additional Instructions: 6 mos w/ PSA (gets [...] 5 mg Tab (more content not included)... [facility] Comment on above: Result Comment: Electronically Signed By : Yosef GRIMES MD\.br\Date and Time Signed: 05/22/23 12:03 EDT\.br\Electronically Co-Signed By: Odette Cottrell.br\Date and Time Co-Signed: 05/22/23 12:01 EDT Pre-Certification Formon Pre-Certificatio n Form [id number] .00TIFF [facility] CBC W Auto Differential pane l (Bld)on 01-05-2023 Basophils (Bld) [#/Vol] <0.11 k/uL [facility] Basophils/100 WBC (Bld) 0.3 % [facility] Differential cell count method Nom (Bld) Auto [facility] Eosinophils (Bld) [#/Vol] 0.09 10*3/uL <0.46 k/uL [facility] Eosinophils/100 WBC (Bld) 1.1 % [facility] Erythrocyte distribution width (RBC) [Ratio] 14.9 % 11.5 - 15.0 % [facility] Hematocrit (Bld) [Volume fraction] 44.5 % 39.0 - 51.0 % [facility] Hemoglobin (Bld) [Mass/Vol] 15.0 g/dL 13.0 - 17.0 g/dL [facility] Immature granulocytes (Bld) [#/Vol] 0.08 10*3/uL <0.10 k/uL [facility] Immature granulocytes/100 WBC (Bld) 1.0 % [facility] Lymphocytes (Bld) [#/Vol] 0.45 10*3/uL Low 1.00 - 4.00 k/uL [facility] Lymphocytes/100 WBC (Bld) 5.6 % [facility] MCH (RBC) [Entitic mass] 29.1 pg 26.0 - 34.0 pg [facility] MCHC (RBC) [Mass/Vol] 33.7 g/dL 30.5 - 36.0 g/dL [facility] MCV (RBC) [Entitic vol] 86.2 fL 80.0 - 100.0 fL [facility] Monocytes (Bld) [#/Vol] 0.66 10*3/uL <0.87 k/uL [facility] Monocytes/100 WBC (Bld) 8.3 % [facility] Neutrophils (Bld) [#/Vol] 6.67 10*3/uL 1.45 - 7.50 k/uL [facility] Neutrophils/100 WBC (Bld) 83.7 % [facility] Nucleated RBC (Bld) [#/Vol] <0.01 k/uL [facility] Nucleated RBC/100 WBC (Bld) [Ratio] 0.0 /100 WBC [facility] Platelet mean volume (Bld) [Entitic vol] 10.1 fL 9.0 - 12.7 fL [facility] Platelets (Bld) [#/Vol] 100 10*3/uL Low 150 - 400 k/uL [facility] RBC (Bld) [#/Vol] 5.16 10*6/uL 4.20 - 6.00 m/uL [facility] WBC (Bld) [#/Vol] 7.97 10*3/uL 3.70 - 11.00 k/uL [facility] Comprehensive metabolic 2000 panelon 11-30-2023 Albumin [Mass/Vol] 4.8 g/dL 3.9 - 4.9 g/dL [facility] ALP [Catalytic activity/Vol] 50 U/L 38 - 113 U/L [facility] ALT [Catalytic activity/Vol] 9 U/L Low 10 - 54 U/L [facility] Anion gap [Moles/Vol] 12 mmol/L 9 - 18 mmol/L [facility] AST [Catalytic activity/Vol] 14 U/L 14 - 40 U/L [facility] Bilirubin [Mass/Vol] 0.8 mg/dL 0.2 - 1.3 mg/dL [facility] Calcium [Mass/Vol] 10.5 mg/dL High 8.5 - 10.2 mg/dL [facility] Chloride [Moles/Vol] 103 mmol/L 97 - 105 mmol/L [facility] CO2 [Moles/Vol] 24 mmol/L 22 - 30 mmol/L [facility] Creatinine [Mass/Vol] 1.33 mg/dL High 0.73 - 1.22 mg/dL [facility] Estimated Glomerular Filtration Rate 55 mL/min/1.73m Low >=60 mL/min/1.73m [facility] Glucose [Mass/Vol] 112 mg/dL High 74 - 99 mg/dL [facility] Potassium [Moles/Vol] 3.1 mmol/L Low 3.7 - 5.1 mmol/L [facility] Protein [Mass/Vol] 7.8 g/dL 6.3 - 8.0 g/dL [facility] Sodium [Moles/Vol] 139 mmol/L 136 - 144 mmol/L [facility] Urea nitrogen [Mass/Vol] 28 mg/dL High 9 - 24 mg/dL [facility] CBC W Auto Differential pane l (Bld)on 12-22-2022 Basophils (Bld) [#/Vol] <0.11 k/uL [facility] Basophils/100 WBC (Bld) 0.2 % [facility] Differential cell count method Nom (Bld) Auto [facility] Eosinophils (Bld) [#/Vol] 0.09 10*3/uL <0.46 k/uL [facility] Eosinophils/100 WBC (Bld) 1.0 % [facility] Erythrocyte distribution width (RBC) [Ratio] 14.7 % 11.5 - 15.0 % [facility] Hematocrit (Bld) [Volume fraction] 45.5 % 39.0 - 51.0 % [facility] Hemoglobin (Bld) [Mass/Vol] 15.2 g/dL 13.0 - 17.0 g/dL [facility] Immature granulocytes (Bld) [#/Vol] 0.10 10*3/uL High <0.10 k/uL [facility] Immature granulocytes/100 WBC (Bld) 1.1 % [facility] Lymphocytes (Bld) [#/Vol] 1.02 10*3/uL 1.00 - 4.00 k/uL [facility] Lymphocytes/100 WBC (Bld) 11.0 % [facility] MCH (RBC) [Entitic mass] 29.0 pg 26.0 - 34.0 pg [facility] MCHC (RBC) [Mass/Vol] 33.4 g/dL 30.5 - 36.0 g/dL [facility] MCV (RBC) [Entitic vol] 86.7 fL 80.0 - 100.0 fL [facility] Monocytes (Bld) [#/Vol] 0.74 10*3/uL <0.87 k/uL [facility] Monocytes/100 WBC (Bld) 8.0 % [facility] Neutrophils (Bld) [#/Vol] 7.31 10*3/uL 1.45 - 7.50 k/uL [facility] Neutrophils/100 WBC (Bld) 78.7 % [facility] Nucleated RBC (Bld) [#/Vol] <0.01 k/uL [facility] Nucleated RBC/100 WBC (Bld) [Ratio] 0.0 /100 WBC [facility] Platelet mean volume (Bld) [Entitic vol] 9.8 fL 9.0 - 12.7 fL [facility] Platelets (Bld) [#/Vol] 166 10*3/uL 150 - 400 k/uL [facility] RBC (Bld) [#/Vol] 5.25 10*6/uL 4.20 - 6.00 m/uL [facility] WBC (Bld) [#/Vol] 9.28 10*3/uL 3.70 - 11.00 k/uL [facility] MRI PROSTATE WO/W IVCONon [facility] Urinalysis - AUTOMATEDon Appearance (U) CLEAR [employer] Other Bilirubin Ql (U) Negative [employer] Other Color (U) YELLOW [facility] Other Glucose Ql (U) Negative [employer] Other Hemoglobin Ql (U) TRACE INTACT [facility] Other Ketones Ql (U) Negative [employer] Other Leukocyte esterase Test strip Ql (U) Negative [facility] Other Nitrite Ql (U) Negative [employer] Other pH (U) 5.5 [pH] [facility] Other Protein Ql (U) 100 [employer] Other Specific gravity (U) [Rel density] 1.025 [facility] Other Urobilinogen (U) [Mass/Vol] 0.2 mg/dL [facility] Other Urinalysis - AUTOMATED [facility] Other Urine Cultureon 10-09-2022 Bacteria identified Cx Nom (U) [facility] Other PTH INTACTon 10-14-2021 PTH, Intact 25 pg/mL Normal 15-65 [facility] Comment on above: Performed By: #### PTHINT #### [facility] [address] [address] [address] Brenda Kline VIT D 25-OH LABCORPon 2021 Vitamin D, 25-Hydroxy 36.7 ng/mL Normal 30.0-100.0 [facility] Comment on above: Result Comment: Vitamin D deficiency has been defined by the Mathews of Medicine and an Endocrine Society practice guideline as a level of serum 25-OH vitamin D less than 20 ng/mL (1,2). The Endocrine Society went on to further define vitamin D insufficiency as a level between 21 and 29 ng/mL (2). 1. IOM (Mathews of Medicine). 2010. Dietary reference intakes for calcium and D. [place]: The National Academies Press. 2. Daniel ALEMAN, Tiarra CUADRA, Dago PERRY, et al. Evaluation, treatment, and prevention of vitamin D deficiency: an Endocrine Society clinical practice guideline. JCEM. 2010; 96(7):1911-30. Performed By: #### V ITADLC ####[facility] [id number] [address]Dr. Brenda Kline HEMOGRAM AND PLATELon 2021 Hematocrit (Bld) [Volume fraction] 50.0 % Normal 42.0-54.0 [facility] Comment on above: Performed By: #### HH #### [facility] [address] [address] [address] Brenda Kline Hemoglobin (Bld) [Mass/Vol] 16.3 g/dL Normal 14.0-18.0 [facility] Comment on above: Performed By: #### HH #### [facility] [address] [address] [address] Brenda Kline MCH (RBC) [Entitic mass] 29.1 pg Normal 25.9-34.0 [facility] Comment on above: Performed By: #### HH #### [facility] [address] [address] [address] Brenda Kline MCHC (RBC) [Mass/Vol] 32.6 g/dL Normal 29.9-35.2 [facility] Comment on above: Performed By: #### HH #### [facility] [address] [address] [address] Brenda Kline MCV (RBC) [Entitic vol] 89.3 fL Normal 80.0-94.0 [facility] Comment on above: Performed By: #### HH #### [facility] [address] [address] [address] Brenda Kline PLT 197 103/ul Normal 150-450 [facility] Comment on above: Performed By: #### HH #### [facility] [address] [address] [address] Brenda Kline RBC 5.60 106/ul Normal 4.70-6.10 [facility] Comment on above: Performed By: #### HH #### [facility] [address] [address] [address] Brenda Kline WBC 7.9 103/ul Normal 4.0-11.0 [facility] Comment on above: Performed By: #### HH #### [facility] [address] [address] [address] Brenda Kline MAGNESIUMon 10-13-2021 Magnesium [Mass/Vol] 2.1 mg/dL Normal 1.8-2.4 [facility] Comment on above: Performed By: #### RENAL, MG, URIC ####[facility] [address] [address]Dr. Brenda Kline RENAL FUNCTION PANELon 10-13 Albumin [Mass/Vol] 4.1 g/dL Normal 3.4-5.0 [facility] Comment on above: Performed By: #### RENAL, MG, URIC #### [facility] [address] [address] [address] Brenda Kline Calcium [Mass/Vol] 9.6 mg/dL Normal 8.5-10.1 [facility] Comment on above: Performed By: #### RENAL, MG, URIC #### [facility] [address] [address] [address] Brenda Kline Chloride [Moles/Vol] 103 mmol/L Normal 98-107 [facility] Comment on above: Performed By: #### RENAL, MG, URIC #### [facility] [address] [address] [address] Brenda Kline CO2 [Moles/Vol] 27.2 mmol/L Normal 21.0-32.0 [facility] Comment on above: Performed By: #### RENAL, MG, URIC #### [facility] [address] [address] [address] Brenda Kline Creatinine [Mass/Vol] 1.68 mg/dL Critically high 0.70-1.30 [facility] Comment on above: Performed By: #### RENAL, MG, URIC #### [facility] [address] [place] [address] Dr. Brenda Kline EGFR-AF MACANESE 49 mL/min/1.73m2 Critically low >=60 [facility] Comment on above: Performed By: #### RENAL, MG, URIC #### [facility] [address] [place] [address] Dr. Brenda Kline EGFR-NON AF MACANESE 40 mL/min/1.73m2 Critically low >=60 [facility] Comment on above: Performed By: #### RENAL, MG, URIC #### [facility] [address] [place] [address] Dr. Brenda Kline Glucose [Mass/Vol] 125 mg/dL Critically high 74-106 [facility] Comment on above: Performed By: #### RENAL, MG, URIC #### [facility] [address] [place] [address] Dr. Brenda Kline Phosphate [Mass/Vol] 3.5 mg/dL Normal 2.6-4.7 [facility] Comment on above: Performed By: #### RENAL, MG, URIC #### [facility] [address] [place] [address] Dr. Brenda Kline Potassium [Moles/Vol] 4.1 mmol/L Normal 3.5-5.1 [facility] Comment on above: Performed By: #### RENAL, MG, URIC #### [facility] [address] [place] [address] Dr. Brenda Kline Sodium [Moles/Vol] 139 mmol/L Normal 136-145 [facility] Comment on above: Performed By: #### RENAL, MG, URIC #### [facility] [address] [place] [address] Dr. Brenda Kline Urea nitrogen [Mass/Vol] 25.0 mg/dL Critically high 7.0-18.0 [facility] Comment on above: Performed By: #### RENAL, MG, URIC #### [facility] [address] [place] [address] Dr. Brenda Kline UA RANDOM W/MICROSCOPICon BACTERIA NONE SEEN Normal NONE SEEN [facility] Comment on above: Performed By: #### UAMIC #### [facility] [address] [place] [address] Dr. Brenda Kline Bilirubin Ql (U) Negative Normal NEGATIVE [facility] Comment on above: Performed By: #### UAMIC #### [facility] [address] [place] [address] Dr. Brenda Kline CAST SEEN Abnormal NONE SEEN [facility] Comment on above: Performed By: #### UAMIC #### [facility] [address] [place] [address] Dr. Brenda Kline Clarity (U) CLEAR Normal CLEAR [facility] Comment on above: Performed By: #### UAMIC #### [facility] [address] [place] [address] Dr. Brenda Kline Color (U) YELLOW Normal YELLOW [facility] Comment on above: Performed By: #### UAMIC #### [facility] [address] [place] [address] Dr. Brenda Kline Crystals LM Nom (Urine sed) NONE SEEN Normal NONE SEEN [facility] Comment on above: Performed By: #### UAMIC #### [facility] [address] [place] [address] Dr. Brenda Kline Epithelial cells LM Ql (Urine sed) RARE Normal NONE SEEN /RARE [facility] Comment on above: Performed By: #### UAMIC #### [facility] [address] [place] [address] Dr. Brenda Kline Glucose Ql (U) Negative Normal NEGATIVE [facility] Comment on above: Performed By: #### UAMIC #### [facility] [address] [place] [address] Dr. Brenda Kline Hemoglobin Ql (U) Negative Normal NEGATIVE [facility] Comment on above: Performed By: #### UAMIC #### [facility] [address] [place] [address] Dr. Brenda Kline HYALINE CAST RARE Normal [facility] Comment on above: Performed By: #### UAMIC #### [facility] [address] [place] [address] Dr. Brenda Kline Ketones Ql (U) Negative Normal NEGATIVE [facility] Comment on above: Performed By: #### UAMIC #### [facility] [address] [place] [address] Dr. Brenda Kline LEUKOCYTES Negative Normal NEGATIVE [facility] Comment on above: Performed By: #### UAMIC #### [facility] [address] [place] [address] Dr. Brenda Kline MUCOUS TRACE Abnormal NONE SEEN [facility] Comment on above: Performed By: #### UAMIC #### [facility] [address] [place] [address] Dr. Brenda Kline Nitrite Ql (U) Negative Normal NEGATIVE [facility] Comment on above: Performed By: #### UAMIC #### [facility] [address] [place] [address] Dr. Brenda Kline pH (U) 5.5 [pH] Normal 5-9 [facility] Comment on above: Performed By: #### UAMIC #### [facility] [address] [place] [address] Dr. Brenda Kline RBC 0-2 Normal 0-2 [facility] Comment on above: Performed By: #### UAMIC #### [facility] [address] [place] [address] Dr. Brenda Kline SPEC GRAVITY 1.025 Normal 1.005-<=1.025 [facility] Comment on above: Performed By: #### UAMIC #### [facility] [address] [place] [address] Dr. Brenda Kline UA PROTEIN Negative Normal NEGATIVE/ TRACE [facility] Comment on above: Performed By: #### UAMIC #### [facility] [address] [place] [address] Dr. Brenda Kline Urobilinogen Qn (U) 0.2 {Cayden'U}/dL Normal 0.2 - 1.0 [facility] Comment on above: Performed By: #### UAMIC #### [facility] [address] [place] [address] Dr. Brenda Kline WBC 0-2 Abnormal NONE SEEN [facility] Comment on above: Performed By: #### UAMIC #### [facility] [address] [place] [address] Dr. Brenda Kline URIC ACID SERUMon 10-13-2021 Urate [Mass/Vol] 7.2 mg/dL Normal 3.5-7.2 [facility] Comment on above: Performed By: #### RENAL, MG, URIC #### [facility] [address] [place] [address] Dr. Brenda Kline URINE T PROTEIN CREAT RATIOo n 10-13-2021 Protein (U) [Mass/Vol] 29.0 mg/dL Critically high <=12.0 [facility] Comment on above: Performed By: #### URTPCR #### [facility] [address] [place] [address] Dr. Brenda Kline UR PROT CREAT RAT 0.14 Normal [facility] Comment on above: Performed By: #### URTPCR #### [facility] [address] [place] [address] Dr. Brenda Kline URINE CREAT 202.37 mg/dL Normal 20.00-300.00 [facility] Comment on above: Performed By: #### URTPCR #### [facility] [address] [place] [address] Dr. Brenda Kline US FINE NEEDLE ASP EXPon US FINE NEEDLE ASP EXP Begin Addendum #1 COLLECTED DATE/TIME: 08/16/2021 07:32 EDT Final Diagnosis Report for [facility] [place] (A-B) RIGHT GROIN MASS; FINE NEEDLE [...] 2. Pathology results are pending. Normal [facility] CREATININEon 07-20-2021 Creatinine [Mass/Vol] 1.65 mg/dL Critically high 0.70-1.30 [facility] Comment on above: Performed By: #### CREA ####[facility] [id number] [address]Dr. Brenda Kline EGFR-AF MACANESE 50 mL/min/1.73m2 Critically low >=60 [facility] Comment on above: Performed By: #### CREA ####[facility] [id number] [id number]. Brenda Kline EGFR-NON AF MACANESE 41 mL/min/1.73m2 Critically low >=60 [facility] Comment on above: Performed By: #### CREA ####[facility] [id number]. Brenda Kline CT PELVIS W CONon 07-20-2021 [...] MIA PERSON Date: 2021-07-20 16:34 Normal [facility] US SINGLE QUAD RT LOWERon US [...] MIA PERSON Date: 2021-07-09 17:23 Normal [facility] COVID Quick Testingon 2020 Result Negative [facility] Other Vital Signs Date Time Vital Sign Value Performing Clinician Facility 06-04-2024 14:53-0400 Body mass index (BMI) [Ratio] 31.84 kg/m2 YOAN Kumari MD Work Phone: [facility] 06-04-2024 14:53-0400 Body temperature 97.2 [degF] YOAN Kumari MD Work Phone: [facility] 06-04-2024 14:53-0400 Body weight 118.6 kg YOAN Kumari MD Work Phone: [facility] 06-04-2024 14:53-0400 Heart rate 75 /min YOAN Kumari MD Work Phone: [facility] 06-04-2024 14:53-0400 Respiratory rate 16 /min YOAN Kumari MD Work Phone: [facility] 06-04-2024 14:53-0400 SaO2% (BldA) [Mass fraction] 94 % NA Jasmyne ROSARIO Work Phone: [facility] 05-20-2024 13:58-0400 Body mass index (BMI) [Ratio] 31.65 kg/m2 Minoo Jena [employer] MANAGER.[employer]OW[employer] MACHINE OPERATOR Work Phone: [facility] 05-20-2024 13:58-0400 Body temperature 97.59 [degF] Minoo Jena [employer]ATION RELATIONS MANAGER.FOLDED TOWEL MACHINE OPERATOR Work Phone: [facility] 05-20-2024 13:58-0400 Body weight 117.9 kg Minoo Jena [employer]ATION RELATIONS MANAGER.FOLDED TOWEL MACHINE OPERATOR Work Phone: [facility] 05-20-2024 13:58-0400 Diastolic blood pressure 72 mm[Hg] Minoo Jena [employer]ATION RELATIONS MANAGER.FOLDED TOWEL MACHINE OPERATOR Work Phone: [facility] 05-20-2024 13:58-0400 Heart rate 79 /min Minoo Jena [employer]ATION RELATIONS MANAGER.FOLDED TOWEL MACHINE OPERATOR Work Phone: [facility] 05-20-2024 13:58-0400 Respiratory rate 16 /min Minoo Jena [employer]ATION RELATIONS MANAGER.FOLDED TOWEL MACHINE OPERATOR Work Phone: [facility] 05-20-2024 13:58-0400 SaO2% (BldA) [Mass fraction] 97 % Minoo Jena [employer]ATION RELATIONS MANAGER.FOLDED TOWEL MACHINE OPERATOR Work Phone: [facility] 05-20-2024 13:58-0400 Systolic blood pressure 120 mm[Hg] Minoo Jena [employer]ATION RELATIONS MANAGER.FOLDED TOWEL MACHINE OPERATOR Work Phone: [facility] 03-04-2024 09:49-0500 Diastolic blood pressure 74 mm[Hg] Yosef GRIMES [facility] 03-04-2024 09:49-0500 Heart rate 67 /min Yosef GRIMES [facility] 03-04-2024 09:49-0500 Respiratory rate 16 /min Yosef GRIMES [facility] 03-04-2024 09:49-0500 Systolic blood pressure 142 mm[Hg] Yosef GRIMES [facility] 01-23-2024 12:46-0500 Diastolic blood pressure 79 mm[Hg] Meño Bob [facility] 01-23-2024 12:46-0500 Heart rate 85 /min Meño Bob [facility] 01-23-2024 12:46-0500 Respiratory rate 16 /min Meño Bob [facility] 01-23-2024 12:46-0500 SaO2% (BldA) [Mass fraction] 95 % Meño Bob [facility] 01-23-2024 12:46-0500 Systolic blood pressure 120 mm[Hg] Meño Bob [facility] 01-10-2024 12:49-0500 Blood Pressure Location Yosef GRIMES [facility] 01-10-2024 12:49-0500 Body temperature 98.6 [degF] Yosef GRIMES [facility] 01-10-2024 12:49-0500 Diastolic blood pressure 83 mm[Hg] Yosef GRIMES [facility] 01-10-2024 12:49-0500 Heart rate 89 /min Yosef GRIMES [facility] 01-10-2024 12:49-0500 Respiratory rate 17 /min Yosef GRIMES [facility] 01-10-2024 12:49-0500 Systolic blood pressure 126 mm[Hg] Yosef GRIMES [facility] 01-08-2024 08:56-0500 Blood Pressure Location Yosef GRIMES [facility] 01-08-2024 08:56-0500 Body temperature 98.6 [degF] Yosef GRIMES [facility] 01-08-2024 08:56-0500 Diastolic blood pressure 83 mm[Hg] Yosef GRIMES [facility] 01-08-2024 08:56-0500 Heart rate 70 /min Yosef GRIMES [facility] 01-08-2024 08:56-0500 Respiratory rate 18 /min Yosef GRIMES [facility] 01-08-2024 08:56-0500 Systolic blood pressure 137 mm[Hg] Yosef GRIMES [facility] 11-24-2023 11:48-0400 Blood Pressure Location Yosef GRIMES [facility] 11-24-2023 11:48-0400 Body temperature 98.6 [degF] Yosef GRIMES [facility] 11-24-2023 11:48-0400 Diastolic blood pressure 86 mm[Hg] Yosef GRIMES [facility] 11-24-2023 11:48-0400 Heart rate 68 /min Yosef GRIMES [facility] 11-24-2023 11:48-0400 Respiratory rate 16 /min Yosef GRIMES [facility] 11-24-2023 11:48-0400 Systolic blood pressure 134 mm[Hg] Yosef GRIMES [facility] 11-16-2023 14:59-0400 Body height 193 cm Nicolas Hwang MD Work Phone: [facility] 11-16-2023 14:59-0400 Body mass index (BMI) [Ratio] 31.81 kg/m2 Nicolas Hwang MD Work Phone: [facility] 11-16-2023 14:59-0400 Body temperature 96.69 [degF] Nicolas Hwang MD Work Phone: [facility] 11-16-2023 14:59-0400 Body weight 118.5 kg Nicolas Hwang MD Work Phone: [facility] 11-16-2023 14:59-0400 Diastolic blood pressure 73 mm[Hg] Nicolas Hwang MD Work Phone: [facility] 11-16-2023 14:59-0400 Heart rate 93 /min Nicolas Hwang MD Work Phone: [facility] 11-16-2023 14:59-0400 Respiratory rate 18 /min Nicolas Hwang MD Work Phone: [facility] 11-16-2023 14:59-0400 SaO2% (BldA) [Mass fraction] 94 % Nicolas Hwang MD Work Phone: [facility] 11-16-2023 14:59-0400 Systolic blood pressure 124 mm[Hg] Nicolas Hwang MD Work Phone: [facility] 11-16-2023 14:13-0400 Body mass index (BMI) [Ratio] 31.84 kg/m2 YOAN Kumari MD Work Phone: [facility] 11-16-2023 14:13-0400 Body temperature 96.69 [degF] YOAN Kumari MD Work Phone: [facility] 11-16-2023 14:13-0400 Body weight 118.6 kg YOAN Kumari MD Work Phone: [facility] 11-16-2023 14:13-0400 Diastolic blood pressure 73 mm[Hg] YOAN Kumari MD Work Phone: [facility] 11-16-2023 14:13-0400 Heart rate 93 /min YOAN Kumari MD Work Phone: [facility] 11-16-2023 14:13-0400 Respiratory rate 18 /min YOAN Kumari MD Work Phone: [facility] 11-16-2023 14:13-0400 SaO2% (BldA) [Mass fraction] 94 % YOAN Kumari MD Work Phone: [facility] 11-16-2023 14:13-0400 Systolic blood pressure 124 mm[Hg] YOAN Kumari MD Work Phone: [facility] 05-22-2023 11:20-0400 Blood Pressure Location Yosef GRIMES [facility] 05-22-2023 11:20-0400 Body temperature 98.42 [degF] Yosef GRIMES [facility] 05-22-2023 11:20-0400 Diastolic blood pressure 85 mm[Hg] Yosef GRIMES [facility] 05-22-2023 11:20-0400 Heart rate 81 /min Yosef GRIMES [facility] 05-22-2023 11:20-0400 Respiratory rate 16 /min Yosef GRIMES [facility] 05-22-2023 11:20-0400 Systolic blood pressure 118 mm[Hg] Yosef GRIMES [facility] 05-18-2023 13:16-0400 Body temperature 97 [degF] Elio Payne FOUNDATION RELATIONS MANAGER.FOLDED TOWEL MACHINE OPERATOR Work Phone: [facility] 05-18-2023 13:16-0400 Body weight 115.8 kg Elio Payne FOUNDATION RELATIONS MANAGER.FOLDED TOWEL MACHINE OPERATOR Work Phone: [facility] 05-18-2023 13:16-0400 Diastolic blood pressure 74 mm[Hg] Elio aPyne FOUNDATION RELATIONS MANAGER.FOLDED TOWEL MACHINE OPERATOR Work Phone: [facility] 05-18-2023 13:16-0400 Heart rate 84 /min Elio Payne APRN.FOLDED TOWEL MACHINE OPERATOR Work Phone: [facility] 05-18-2023 13:16-0400 Respiratory rate 18 /min Elio Payne APRN.FOLDED TOWEL MACHINE OPERATOR Work Phone: [facility] 05-18-2023 13:16-0400 SaO2% (BldA) [Mass fraction] 94 % Elio Payne APRN.FOLDED TOWEL MACHINE OPERATOR Work Phone: [facility] 05-18-2023 13:16-0400 Systolic blood pressure 144 mm[Hg] Elio Payne FOUNDATION RELATIONS MANAGER.FOLDED TOWEL MACHINE OPERATOR Work Phone: [facility] 01-16-2023 12:20-0500 Body temperature 97.39 [degF] YOAN Kumari MD Work Phone: [facility] 01-16-2023 12:20-0500 Body weight 109.32 kg YOAN Kumari MD Work Phone: [facility] 01-16-2023 12:20-0500 Diastolic blood pressure 74 mm[Hg] YOAN Kumari MD Work Phone: [facility] 01-16-2023 12:20-0500 Heart rate 66 /min YOAN Kumari MD Work Phone: [facility] 01-16-2023 12:20-0500 Respiratory rate 18 /min YOAN Kumari MD Work Phone: [facility] 01-16-2023 12:20-0500 SaO2% (BldA) [Mass fraction] 96 % YOAN Kumari MD Work Phone: [facility] 01-16-2023 12:20-0500 Systolic blood pressure 114 mm[Hg] YOAN Kumari MD Work Phone: [facility] 01-05-2023 12:45-0500 Body height 193 cm Nicolas Hwang MD Work Phone: [facility] 01-05-2023 12:45-0500 Body temperature 97 [degF] Nicolas Hwang MD Work Phone: [facility] 01-05-2023 12:45-0500 Body weight 109.77 kg Nicolas Hwang MD Work Phone: [facility] 01-05-2023 12:45-0500 Diastolic blood pressure 70 mm[Hg] Nicolas Hwang MD Work Phone: [facility] 01-05-2023 12:45-0500 Heart rate 60 /min Nicolas Hwang MD Work Phone: [facility] 01-05-2023 12:45-0500 Respiratory rate 16 /min Nicolas Hwang MD Work Phone: [facility] 01-05-2023 12:45-0500 SaO2% (BldA) [Mass fraction] 94 % Nicolas Hwang MD Work Phone: [facility] 01-05-2023 12:45-0500 Systolic blood pressure 124 mm[Hg] Nicolas Hwang MD Work Phone: [facility] 01-02-2023 12:22-0500 Body temperature 97.59 [degF] YOAN Kumari MD Work Phone: [facility] 11-27-2023 12:22-0500 Body weight 110.13 kg YOAN Kumari MD Work Phone: [facility] 01-02-2023 12:22-0500 Diastolic blood pressure 75 mm[Hg] YOAN Kumari MD Work Phone: [facility] 01-02-2023 12:22-0500 Heart rate 59 /min YOAN Kumari MD Work Phone: [facility] 01-02-2023 12:22-0500 Respiratory rate 16 /min OYAN Kumari MD Work Phone: [facility] 01-02-2023 12:22-0500 SaO2% (BldA) [Mass fraction] 96 % YOAN Kumari MD Work Phone: [facility] 01-02-2023 12:22-0500 Systolic blood pressure 112 mm[Hg] YOAN Kumari MD Work Phone: [facility] 12-26-2022 12:09-0500 Body temperature 96.91 [degF] YOAN Kumari MD Work Phone: [facility] 12-26-2022 12:09-0500 Body weight 111.04 kg YOAN Kumari MD Work Phone: [facility] 12-26-2022 12:09-0500 Diastolic blood pressure 75 mm[Hg] YOAN Kumari MD Work Phone: [facility] 12-26-2022 12:09-0500 Heart rate 66 /min YOAN Kumari MD Work Phone: [facility] 12-26-2022 12:09-0500 Respiratory rate 16 /min YOAN Kumari MD Work Phone: [facility] 12-26-2022 12:09-0500 SaO2% (BldA) [Mass fraction] 95 % YOAN Kumari MD Work Phone: [facility] 12-26-2022 12:09-0500 Systolic blood pressure 116 mm[Hg] YOAN Kumari MD Work Phone: [facility] 12-19-2022 12:17-0500 Body temperature 97 [degF] YOAN Kumari MD Work Phone: [facility] 12-19-2022 12:17-0500 Body weight 111.04 kg YOAN Kumari MD Work Phone: [facility] 12-19-2022 12:17-0500 Diastolic blood pressure 68 mm[Hg] YOAN Kumari MD Work Phone: [facility] 12-19-2022 12:17-0500 Heart rate 81 /min YOAN Kumari MD Work Phone: [facility] 12-19-2022 12:17-0500 Respiratory rate 16 /min YOAN Kumari MD Work Phone: [facility] 12-19-2022 12:17-0500 SaO2% (BldA) [Mass fraction] 99 % YOAN Kumari MD Work Phone: [facility] 12-19-2022 12:17-0500 Systolic blood pressure 115 mm[Hg] YOAN Kumari MD Work Phone: [facility] 12-14-2022 10:57-0500 Body temperature 97 [degF] YOAN Kumari MD Work Phone: [facility] 12-14-2022 10:57-0500 Body weight 109.77 kg YOAN Kumari MD Work Phone: [facility] 12-14-2022 10:57-0500 Diastolic blood pressure 76 mm[Hg] YOAN Kumari MD Work Phone: [facility] 12-14-2022 10:57-0500 Heart rate 59 /min YOAN Kumari MD Work Phone: [facility] 12-14-2022 10:57-0500 Respiratory rate 16 /min YOAN Kumari MD Work Phone: [facility] 12-14-2022 10:57-0500 SaO2% (BldA) [Mass fraction] 96 % YOAN Kumari MD Work Phone: [facility] 12-14-2022 10:57-0500 Systolic blood pressure 125 mm[Hg] YOAN Kumari MD Work Phone: [facility] 12-02-2022 12:15-0400 Blood Pressure Location Yosef GRIMES [facility] 12-02-2022 12:15-0400 Diastolic blood pressure 74 mm[Hg] Yosef GRIMES [facility] 12-02-2022 12:15-0400 Heart rate 68 /min Yosef GRIMES [facility] 12-02-2022 12:15-0400 Systolic blood pressure 129 mm[Hg] Yosef GRIMES [facility] 11-18-2022 11:18-0400 Blood Pressure Location Yosef GRIMES [facility] 11-18-2022 11:18-0400 Diastolic blood pressure 70 mm[Hg] Yosef GRIMES [facility] 11-18-2022 11:18-0400 Heart rate 68 /min Yosef GRIMES [facility] 11-18-2022 11:18-0400 Respiratory rate 16 /min Yosef GRIMES [facility] 11-18-2022 11:18-0400 Systolic blood pressure 128 mm[Hg] Yosef GRIMES [facility] 11-15-2022 08:47-0400 Body temperature 97.59 [degF] YOAN Kumari MD Work Phone: [facility] 11-15-2022 08:47-0400 Body weight 112.49 kg YOAN Kumari MD Work Phone: [facility] 11-15-2022 08:47-0400 Diastolic blood pressure 78 mm[Hg] YOAN Kumari MD Work Phone: [facility] 11-15-2022 08:47-0400 Heart rate 57 /min YOAN Kumari MD Work Phone: [facility] 11-15-2022 08:47-0400 Respiratory rate 20 /min YOAN Kumari MD Work Phone: [facility] 11-15-2022 08:47-0400 SaO2% (BldA) [Mass fraction] 96 % YOAN Kumari MD Work Phone: [facility] 11-15-2022 08:47-0400 Systolic blood pressure 127 mm[Hg] YOAN Kumari MD Work Phone: [facility] 10-09-2022 10:45-0400 Body height 193.04 cm Angelina Holder Other [facility] Other 10-09-2022 10:45-0400 Body mass index (BMI) [Ratio] 30.59 kg/m2 Angelina Holder Other [facility] Other 10-09-2022 10:45-0400 Body temperature 98.3 [degF] Angelina Holder Other [facility] Other 10-09-2022 10:45-0400 Body weight 113.99 kg Angelina Holder Other [facility] Other 10-09-2022 10:45-0400 Diastolic blood pressure 68 mm[Hg] Angelina Holder Other [facility] Other 10-09-2022 10:45-0400 Respiratory rate 16 /min Angelina Curranmond Other [facility] Other 10-09-2022 10:45-0400 SaO2% (BldA) [Mass fraction] 96 % Angelina Holder Other [facility] [employer] Other 10-09-2022 10:45-0400 Systolic blood pressure 110 mm[Hg] Angelina Glory Other [facility] [employer] Other 10-03-2022 13:53-0400 Blood Pressure Location Yosefgutierrez GRIMES [facility] 10-03-2022 13:53-0400 Diastolic blood pressure 70 mm[Hg] Yosef GRIMES [facility] 10-03-2022 13:53-0400 Heart rate 80 /min Yosef GRIMES [facility] 10-03-2022 13:53-0400 Respiratory rate 16 /min Yosefgutierrez GRIMES [facility] 10-03-2022 13:53-0400 Systolic blood pressure 130 mm[Hg] Yosef GRIMES [facility] 06-02-2022 14:00-0400 Body height 193 cm Elio Payne APRN.FOLDED TOWEL MACHINE OPERATOR Work Phone: [facility] 06-02-2022 14:00-0400 Body temperature 97.81 [degF] Elio Payne APRN.FOLDED TOWEL MACHINE OPERATOR Work Phone: [facility] 06-02-2022 14:00-0400 Body weight 118.03 kg Elio Payne APRN.FOLDED TOWEL MACHINE OPERATOR Work Phone: [facility] 04-27-2023 14:00-0400 Diastolic blood pressure 63 mm[Hg] Elio Payne FOUNDATION RELATIONS MANAGER.FOLDED TOWEL MACHINE OPERATOR Work Phone: [facility] 06-02-2022 14:00-0400 Heart rate 77 /min Elio Payne FOUNDATION RELATIONS MANAGER.FOLDED TOWEL MACHINE OPERATOR Work Phone: [facility] 06-02-2022 14:00-0400 Respiratory rate 18 /min Elio Payne FOUNDATION RELATIONS MANAGER.FOLDED TOWEL MACHINE OPERATOR Work Phone: [facility] 06-02-2022 14:00-0400 SaO2% (BldA) [Mass fraction] 93 % Elio Payne FOUNDATION RELATIONS MANAGER.FOLDED TOWEL MACHINE OPERATOR Work Phone: [facility] 06-02-2022 14:00-0400 Systolic blood pressure 118 mm[Hg] Elio Payne FOUNDATION RELATIONS MANAGER.FOLDED TOWEL MACHINE OPERATOR Work Phone: [facility] 11-02-2021 12:50-0400 Body height 193 cm Nicolas Hwang MD Work Phone: [facility] 11-02-2021 12:50-0400 Body temperature 97.7 [degF] Nicolas Hwang MD Work Phone: [facility] 11-02-2021 12:50-0400 Body weight 119.39 kg Nicolas Hwang MD Work Phone: [facility] 11-02-2021 12:50-0400 Diastolic blood pressure 77 mm[Hg] Nicolas Hwang MD Work Phone: [facility] 11-02-2021 12:50-0400 Heart rate 72 /min Nicolas Hwang MD Work Phone: [facility] 11-02-2021 12:50-0400 Respiratory rate 18 /min Nicolas Hwang MD Work Phone: [facility] 11-02-2021 12:50-0400 SaO2% (BldA) [Mass fraction] 94 % Nicolas Hwang MD Work Phone: [facility] 11-02-2021 12:50-0400 Systolic blood pressure 140 mm[Hg] Nicolas Hwang MD Work Phone: [facility] 09-27-2021 10:00-0400 Blood Pressure Location Yosef GRIMES [facility] 09-27-2021 10:00-0400 Diastolic blood pressure 79 mm[Hg] Yosef GRIMES [facility] 09-27-2021 10:00-0400 Heart rate 67 /min Yosef GRIMES [facility] 09-27-2021 10:00-0400 Respiratory rate 16 /min Yosef GRIMES [facility] 09-27-2021 10:00-0400 Systolic blood pressure 114 mm[Hg] Yosef GRIMES [facility] 11-13-2020 13:45-0400 Body height 193.04 cm Azucena Ginty Other [facility] Other 11-13-2020 13:45-0400 Body mass index (BMI) [Ratio] 32.25 kg/m2 Azucena Ginty Other [facility] Other 11-13-2020 13:45-0400 Body temperature 96.4 [degF] Azucena Ginty Other [facility] Other 11-13-2020 13:45-0400 Body weight 120.2 kg Azucena Ginty Other [facility] Other 11-13-2020 13:45-0400 SaO2% (BldA) [Mass fraction] 99 % Azucena Hui Other [facility] Other Encounters Encounter Date Encounter Type Care Provider Facility Start: 09-25-2025 ambulatory Shilpa L Parvez Facility: [facility] Start: 11-15-2024 ambulatory Yosef GRIMES Facili ty:[facility] Start: 09-26-2024 End: 09-26-2024 ambulatory Shilpa L Parvez Facility:[facility] Start: 06-04-2024 End: 06-04-2024 Office outpatient visit 15 minutes David Kumari MD Work Phone: Radiation Oncology Comment on above: Malignant neoplasm o f prostate (HCC) (Primary Dx) Start: 06-04-2024 End: 06-04-2024 ambulatory David KUMARI Facility:[facility] Start: 05-20-2024 End: 05-20-2024 Office outpatient visit 25 minutes Minoo Gill APRN.CNP Work Phone: Hematology/Oncology Comment on above: Monoclonal gammopath y (Primary Dx); Prostate cancer (HCC); Chronic renal insufficiency, stage 3 (moderate) (HCC) Start: 05-20-2024 End: 05-20-2024 ambulatory MINOO GILL Facility:[facility] Start: 05-16-2024 End: 05-29-2024 Telephone encounter Nicolas Hwang MD Work Phone: Cancer [facility] Start: 05-15-2024 End: 05-15-2024 ambulatory SHAHRIAR STEPHENSON Facility:[facility] Start: 05-07-2024 End: 05-07-2024 ambulatory SHAHRIAR STEPHENSON Facility:[facility] Start: 05-07-2024 End: 05-07-2024 Subsequent hospital visit by physician General Joseph Garcia Mc Work Phone: Radiology Start: 03-04-2024 End: 03-04-2024 ambulatory Yosef GRIMES Facility:[facility] Start: 03-04-2024 End: 03-04-2024 Patient encounter procedure Yosef GRIMES [facility] Start: 02-28-2024 End: 02-28-2024 ambulatory Yosef GRIMES Facility:[facility] Start: 02-28-2024 End: 02-28-2024 Patient encounter procedure Yosef GRIMES [facility] Start: 02-22-2024 End: 02-22-2024 ambulatory Yosef Grimes [facility] Work Phone: Start: 02-22-2024 End: 02-22-2024 Departed Referred Yosef Grimes MD Work Phone: [facility] Start: 02-22-2024 End: 02-22-2024 ambulatory Yosef GRIMES Facility:[id number] Start: 01-30-2024 End: 01-30-2024 ambulatory Meño Bob Facility:[facility] Start: 01-30-2024 End: 01-30-2024 Patient encounter procedure Meño Bob [facility] Start: 01-26-2024 ambulatory Yosef GRIMES Facili ty:[facility] Start: 01-23-2024 End: 01-23-2024 ambulatory Meño Bob Facility:[facility] Start: 01-23-2024 End: 01-23-2024 Patient encounter procedure Meño Bob [facility] Start: 01-19-2024 End: 01-19-2024 ambulatory YOSEF GRIMES Facility:[facility] Start: 01-19-2024 End: 01-19-2024 Subsequent hospital visit by physician Arrival Time Radiology Work Phone: Radiology Pet CT Start: 01-13-2024 Non-patient / Non-visit Mateusz Grmies MD Work Phone: [facility] Work Phone: Start: 01-10-2024 End: 01-10-2024 ambulatory Yosef GRIMES Facility:[facility] [place] Start: 01-10-2024 End: 01-10-2024 Patient encounter procedure Yosef GRIMES [facility] Start: 01-08-2024 End: 01-08-2024 ambulatory Yosef GRIMES Facility:[facility] Start: 01-08-2024 End: 01-08-2024 Lab Drop off Yosef GRIMES [facility] Start: 01-08-2024 End: 01-08-2024 ambulatory Yosef GRIMES Facility:[facility] Start: 01-08-2024 End: 01-08-2024 Patient encounter procedure Yosef GRIMES [facility] Start: 01-01-2024 End: 01-01-2024 Lab Drop off Yosef Alivia CORNELIO [facility] Start: 01-01-2024 End: 01-01-2024 ambulatory Yosef Alivia CORNELIO Facility:[facility] Start: 01-01-2024 End: 01-01-2024 Patient encounter procedure Yosef R GRIMES [facility] Start: 12-29-2023 End: 01-01-2024 Telephone encounter David Kumari MD Work Phone: Radiation Oncology Comment on above: Hematuria Start: 11-24-2023 End: 11-24-2023 ambulatory [facility]IM[facility] Start: 11-24-2023 End: 11-24-2023 Patient encounter procedure Yosef GRIMES [facility] Start: 11-16-2023 End: 11-16-2023 ambulatory Nicolas Hwang MD Work Phone: Hematology/Oncology Comment on above: Prostate cancer (HCC ) (Primary Dx); Monoclonal gammopathy Start: 11-16-2023 End: 11-16-2023 Patient encounter procedure Nicolas Hwang MD Work Phone: Hematology/Oncology Comment on above: Malignant neoplasm o f prostate (HCC) (Primary Dx) Start: 11-09-2023 End: 11-09-2023 ambulatory SHAHRIAR STEPHENSON Facility:[facility] Start: 10-23-2023 End: 10-23-2023 ambulatory RN MEDICAL INPATIENT SERVICES Shilpa L Parvez Facility:[facility] Start: 09-27-2023 End: 09-27-2023 ambulatory RN MEDICAL INPATIENT SERVICES Shilpa L Parvez Facility:[facility] Start: 05-22-2023 End: 05-22-2023 ambulatory Yosef GRIMES Facility:[facility] Start: 05-22-2023 End: 05-22-2023 Patient encounter procedure Yosef R CORNELIO [facility] Start: 05-18-2023 End: 05-18-2023 ambulatory Elio Payne APRN.FOLDED TOWEL MACHINE OPERATOR Work Phone: Hematology/Oncology Comment on above: Prostate cancer (HCC ) (Primary Dx); Monoclonal gammopathy; Chronic renal insufficiency, stage 3 (moderate) (HCC); Essential hypertension Start: 05-18-2023 End: 05-18-2023 Patient encounter procedure Elio Payne APRN.FOLDED TOWEL MACHINE OPERATOR Work Phone: [facility] Comment on above: Malignant neoplasm o f prostate (HCC) (Primary Dx) Start: 05-10-2023 Telephone encounter Elio becerril APRN.FOLDED TOWEL MACHINE OPERATOR Work Phone: Hematology/Oncology Comment on above: Lab [...] Start: 01-16-2023 End: 01-16-2023 Refill Rose AndradeNickgutierrez [facility] Work Phone: Hematology/Oncology Comment on [...] encounter David Kumari MD Work Phone: Cancer [facility] Comment on above: Appointment Confirma tion [...] encounter procedure Yosef GRIMES [facility] Start: 12-01-2022 ambulatory Letty Graves [facility]OVER Radia tion Oncology Comment on above: Patient Education Start: 11-28-2022 End: 11-28-2022 Subsequent hospital visit by physician Mri 6 Radio Main Q (I-Stat/1.5t/3t) Work Phone: MRI Q Comment on above: Malignant neoplasm o f prostate (HCC) [C61] Start: 11-22-2022 Patient encounter procedure [facility] Prov ider [facility] Start: 11-18-2022 End: 11-18-2022 Patient encounter procedure Yosef GRIMES [facility] Start: 11-15-2022 End: 11-15-2022 Patient encounter procedure G Damien Kumari MD Work Phone: Radiation Oncology Comment on above: Malignant neoplasm o f prostate (HCC) (Primary Dx) Start: 11-01-2022 End: 11-01-2022 Lab Drop off Yosef GRIMES [facility] Start: 10-28-2022 End: 10-28-2022 Subsequent hospital visit by physician Arrival Time Radiology Work Phone: Radiology Pet CT Comment on above: Rising PSA following treatment for malignant neoplasm of prostate [R97.21] Start: 10-09-2022 Office outpatient vi sit 15 minutes Angelina Holder [facility] Start: 10-09-2022 End: 10-09-2022 ambulatory Angelina Holder Other [facility] Other Start: 10-09-2022 End: 10-09-2022 Departed Referred PROFESSOR OF BUSINESS-C Angelina Holder Work Phone: [facility] [place] Work Phone: Start: 10-06-2022 Telephone encounter Nicolas schneider MD Work Phone: Cancer [facility] Comment on above: Nm Pet Request Start: 10-03-2022 End: 10-03-2022 Patient encounter procedure Yosef GRIMES [facility] Start: 06-02-2022 End: 06-02-2022 ambulatory Elio Payne FOUNDATION RELATIONS MANAGER.FOLDED TOWEL MACHINE OPERATOR Work Phone: Hematology/Oncology Comment on above: Monoclonal gammopath y (Primary Dx); Prostate cancer (HCC); Essential hypertension; Chronic renal insufficiency, stage 3 (moderate) (HCC) Start: 06-02-2022 End: 06-02-2022 Patient encounter procedure Elio Payne [employer] RELATIONS MANAGER.FOLDED TOWEL MACHINE OPERATOR Work Phone: JOSE Start: 11-08-2021 Telephone encounter Shima Hutchison Hematology/Oncology Comment on above: Results Start: 11-02-2021 End: 11-02-2021 ambulatory Nicolas Hwang MD Work Phone: Hematology/Oncology Comment on above: Monoclonal gammopath y (Primary Dx) Start: 11-02-2021 End: 11-02-2021 Patient encounter procedure Nicolas Hwang MD Work Phone: [facility] Start: 10-21-2021 Telephone encounter Nicolas schneider MD Work Phone: Hematology/Oncology Comment on above: Lab Orders Start: 10-13-2021 End: 10-14-2021 ambulatory KAREN GABRIELA Facility:[facility]1 Start: 09-27-2021 End: 09-27-2021 Patient encounter procedure Yosef GRIMES [facility] Start: 09-14-2021 End: 09-15-[address] YOSEF GRIMES Facility:[facility] Start: 08-16-2021 End: 08-16-[address] GURMEET CHANEL Facility:[facility] Start: 08-02-2021 Telephone encounter Nicolas schneider MD Work Phone: [facility] Comment on above: Call Back 48 Hours Start: 07-20-2021 End: 07-21-[address] GURMEET CHANEL Facility:[facility] Start: 07-09-2021 End: 07-10-[address] GURMEET CHANEL Facility:[facility] Start: 05-14-2021 Telephone encounter Pretty Aparicio charge manager/Oncology Comment on above: Results Start: 05-05-2021 Telephone [...] above: Performed By: #### P SAD #### [facility] [address] [place] [address] Dr. Brenda Kline Start: 05-10-2021 Adult depression [...] Detail Author Start: 05-16-2027 [facility] Start: 11-15-2026 [facility] Start: 05-17-2026 Diabetes Screening [facility] Start: 01-19-2026 Diabetes Screening Diabetes Screenal g [facility] Start: 01-05-2026 [facility] Start: 12-08-2025 Diabetes Screening Diabetes Screenal g [facility] Start: 06-02-2025 DIABETES SCREEN DIABETES SCREEN [facility] Start: 06-02-2025 Diabetes Screening Diabetes Screenin g [facility] Start: 11-13-2024 End: 11-13-2024 Follow-up encounter 11/13/2024 1:30 PM EDT Visit (SP) Office Hematology/Oncology [address] [place] [address] [place] [address] Minoo Gill APRN.[facility] [address] [place] [address] 6 month follow up with lab Hematology/Oncology Comment on above: 6 month follow up [facility] Start: 11-13-2024 End: 11-13-2024 Patient encounter procedure [facility] Comment on above: 6 month follow up [facility] Start: 11-12-2024 End: 02-11-2025 Prostate specific Ag [Mass/volume] in Serum or Plasma PROSTATE-SPECIFIC ANTIGEN DIAGNOSTIC Lab Routine Malignant neoplasm of prostate (HCC) Expected: 11/12/2024, Expires: 02/11/2025 [facility] Work Phone: Comment on above: Expected: 11/12/2024 , Expires: 02/11/2025 Start: 11-12-2024 End: 11-12-2024 Patient encounter procedure 11/12/2024 9:00 AM EDT Office Visit [facility] [address] [place] [address] 6 month follow up with lab [facility] Comment on above: 6 month follow up wi th lab Start: 11-02-2024 DIABETES SCREEN DIABETES SCREEN [facility] Start: 10-24-2024 ambulatory Ambulatory Facility:[facility] Start: 06-04-2024 End: 06-04-2024 Patient encounter procedure 06/04/2024 3:00 PM EDT Office Visit Radiation Oncology [address] [address] David Kumari MD [address] [place] [address] 6 month follow up Radiation Oncology Comment on above: 6 month follow up Start: 05-20-2024 ambulatory Ambulatory Facility:Shabnam Dykes [facility] Start: 05-16-2024 End: 08-15-2024 Prostate specific Ag [Mass/volume] in Serum or Plasma PROSTATE-SPECIFIC ANTIGEN DIAGNOSTIC Lab Routine Malignant neoplasm of prostate (HCC) Expected: 05/16/2024 (Approximate), Expires: 08/15/2024 [facility] Work Phone: Comment on above: Expected: 05/16/2024 (Approximate), Expires: 08/15/2024 Start: 05-16-2024 End: 05-16-2024 Follow-up encounter 05/16/2024 11:40 AM EDT Visit (SP) Office Hematology/Oncology [address] [place] [address] Nicolas Hwang MD [address] [place] [address] 6 month follow up Hematology/Oncology Comment on above: 6 month follow up Start: 05-16-2024 End: 05-16-2024 Patient encounter procedure 05/16/2024 11:00 AM EDT Office Visit Radiation Oncology [address] [place] [address] David Kumari MD [address] [place] [address] Moved from 05/14 Radiation Oncology Comment on above: Moved from 05/14 Start: 05-14-2024 End: 05-14-2024 Follow-up encounter 05/14/2024 2:00 PM EDT Visit (SP) Office Hematology/Oncology [address] [place] [address] Nicolas Hwang MD [address] [place] [address] 6 month follow up Hematology/Oncology Comment on above: 6 month follow up Start: 05-14-2024 End: 05-14-2024 Patient encounter procedure 05/14/2024 1:00 PM EDT Office Visit Radiation Oncology [address] [place] [address] David Kumari MD [address] [place] [address] 6 month follow up Radiation Oncology Comment on above: 6 month follow up Start: 05-10-2024 DIABETES SCREEN DIABETES SCREEN [facility] Start: 05-07-2024 End: 05-07-2024 Patient encounter procedure 05/07/2024 1:00 PM EDT Office Visit [facility] [address] [place] [address] lab [facility] Comment on above: lab Start: 02-07-2024 Advance Directive Discussion Advance Directive Discussion [facility] Start: 11-17-2023 End: 02-16-2024 Prostate specific Ag [Mass/volume] in Serum or Plasma PROSTATE-SPECIFIC ANTIGEN DIAGNOSTIC Lab Routine Malignant neoplasm of prostate (HCC) Expected: 11/17/2023 (Approximate), Expires: 02/16/2024 [facility] Work Phone: Comment on above: Expected: 11/17/2023 (Approximate), Expires: 02/16/2024 Start: 11-16-2023 End: 11-16-2023 Follow-up encounter 11/16/2023 3:00 PM EDT Visit (SP) Office Hematology/Oncology [address] [place] [address] Nicolas Hwang MD [address] [place] [address] 6 month follow up lab Hematology/Oncology Comment on above: 6 month follow up la b Start: 11-16-2023 End: 11-16-2023 Patient encounter procedure 11/16/2023 2:15 PM EDT Office Visit Radiation Oncology [address] [place] [address] David Kumari MD [address] [place] [address] Followup Radiation Oncology Comment on above: Followup Start: 11-16-2023 End: 02-15-2024 MONOCLONAL PROTEIN, SERUM (BLOOD) [facility] Comment on above: Expected: 11/16/2023 , Expires: 02/15/2024 Start: 11-16-2023 End: 02-15-2024 PROT ELECT SERUM WITH FAUSTINA AND INTERP [facility] Work Phone: Comment on above: Expected: 11/16/2023 , Expires: 02/15/2024 Start: 11-09-2023 End: 11-09-2023 Patient encounter procedure 11/09/2023 1:00 PM EDT Office Visit [facility] [address] [place] [address] Lab [facility] Comment on above: Lab Start: 10-30-2023 DIABETES SCREEN DIABETES SCREEN [facility] Start: 10-08-2023 Covid-19 Vaccine () Covid-19 Vaccine () [facility] Start: 10-08-2023 Covid-19 Vaccine () Covid-19 Vaccine () [facility] Start: 10-08-2023 Influenza vaccination [facility] Start: 06-16-2023 End: 09-15-2023 MONOCLONAL PROTEIN, SERUM (BLOOD) MONOCLONAL PROTEIN, SERUM (BLOOD) Lab Routine Prostate cancer (HCC) Monoclonal gammopathy Chronic renal insufficiency, stage 3 (moderate) (HCC) Essential hypertension Expected: 06/16/2023, Expires: 09/15/2023 [facility] Work Phone: Comment on above: Expected: 06/16/2023 , Expires: 09/15/2023 Start: 05-19-2023 End: 08-18-2023 CBC W Auto Differential panel - Blood COMPLETE BLOOD COUNT AND DIFFERENTIAL Lab Routine Prostate cancer (HCC) Monoclonal gammopathy Chronic renal insufficiency, stage 3 (moderate) (HCC) Essential hypertension Expected: 05/19/2023, Expires: 08/18/2023 [facility] Work Phone: Comment on above: Expected: 05/19/2023 , Expires: 08/18/2023 Start: 05-19-2023 End: 08-18-2023 Comprehensive metabolic 2000 panel - Serum or Plasma COMPREHENSIVE METABOLIC PANEL Lab Routine Prostate cancer (HCC) Monoclonal gammopathy Chronic renal insufficiency, stage 3 (moderate) (HCC) Essential hypertension Expected: 05/19/2023, Expires: 08/18/2023 [facility] Work Phone: Comment on above: Expected: 05/19/2023 , Expires: 08/18/2023 Start: 05-19-2023 End: 08-18-2023 Prostate specific Ag [Mass/volume] in Serum or Plasma PROSTATE-SPECIFIC ANTIGEN DIAGNOSTIC Lab Routine Prostate cancer (HCC) Monoclonal gammopathy Chronic renal insufficiency, stage 3 (moderate) (HCC) Essential hypertension Expected: 05/19/2023, Expires: 08/18/2023 [facility] Work Phone: Comment on above: Expected: 05/19/2023 , Expires: 08/18/2023 Start: 05-19-2023 End: 08-18-2023 PROTEIN ELECTROPHORESIS SERUM W/INTERP PROTEIN ELECTROPHORESIS SERUM W/INTERP Lab Routine Prostate cancer (HCC) Monoclonal gammopathy Chronic renal insufficiency, stage 3 (moderate) (HCC) Essential hypertension Expected: 05/19/2023, Expires: 08/18/2023 [facility] Work Phone: Comment on above: Expected: 05/19/2023 , Expires: 08/18/2023 Start: 05-18-2023 End: 08-17-2023 CBC W Auto Differential panel - Blood CBC + DIFF Lab Routine Prostate cancer (HCC) Monoclonal gammopathy Expected: 05/18/2023, Expires: 08/17/2023 [facility] Work Phone: Comment on above: Expected: 05/18/2023 , Expires: 08/17/2023 Start: 05-18-2023 End: 08-17-2023 Comprehensive metabolic 2000 panel - Serum or Plasma COMP METABOLIC PANEL Lab Routine Prostate cancer (HCC) Monoclonal gammopathy Expected: 05/18/2023, Expires: 08/17/2023 [facility] Work Phone: Comment on above: Expected: 05/18/2023 , Expires: 08/17/2023 Start: 05-18-2023 End: 08-17-2023 MONOCLONAL PROTEIN, SERUM (BLOOD) MONOCLONAL PROTEIN, SERUM (BLOOD) Lab Routine Prostate cancer (HCC) Monoclonal gammopathy Expected: 05/18/2023, Expires: 08/17/2023 [facility] Work Phone: Comment on above: Expected: 05/18/2023 , Expires: 08/17/2023 Start: 05-18-2023 End: 08-17-2023 Prostate specific Ag [Mass/volume] in Serum or Plasma PSA/PROSTSPECAG DIAG Lab Routine Prostate cancer (HCC) Monoclonal gammopathy Expected: 05/18/2023, Expires: 08/17/2023 [facility] Work Phone: Comment on above: Expected: 05/18/2023 , Expires: 08/17/2023 Start: 05-18-2023 End: 08-17-2023 PROTEIN ELECTROPHORESIS SERUM W/INTERP PROTEIN ELECTROPHORESIS SERUM W/INTERP Lab Routine Prostate cancer (HCC) Monoclonal gammopathy Expected: 05/18/2023, Expires: 08/17/2023 [facility] Work Phone: Comment on above: Expected: 05/18/2023 , Expires: 08/17/2023 Start: 02-06-2023 Advance Directive Discussion Advance Directive Discussion [facility] Start: 02-06-2023 Behavioral Health Screening Behavioral Health Screening [facility] Start: 01-05-2023 End: 04-06-2023 MONOCLONAL PROTEIN, SERUM (BLOOD) [facility] Work Phone: Comment on above: Expected: 01/05/2023 , Expires: 04/06/2023 Start: 01-05-2023 End: 04-06-2023 PROT ELECT SERUM WITH FAUSTINA AND INTERP [facility] Work Phone: Comment on above: Expected: 01/05/2023 , Expires: 04/06/2023 Start: 11-02-2022 End: 01-02-2023 CBC W Auto Differential panel - Blood CBC + DIFF Lab Routine Monoclonal gammopathy Prostate cancer (HCC) Essential hypertension Chronic renal insufficiency, stage 3 (moderate) (HCC) Expected: 11/02/2022, Expires: 01/02/2023 [facility] Work Phone: Comment on above: Expected: 11/02/2022 , Expires: 01/02/2023 Start: 11-02-2022 End: 01-02-2023 Comprehensive metabolic 2000 panel - Serum or Plasma COMP METABOLIC PANEL Lab Routine Monoclonal gammopathy Prostate cancer (HCC) Essential hypertension Chronic renal insufficiency, stage 3 (moderate) (HCC) Expected: 11/02/2022, Expires: 01/02/2023 [facility] Work Phone: Comment on above: Expected: 11/02/2022 , Expires: 01/02/2023 Start: 11-02-2022 End: 01-02-2023 MONOCLONAL PROTEIN, SERUM (BLOOD) MONOCLONAL PROTEIN, SERUM (BLOOD) Lab Routine Monoclonal gammopathy Prostate cancer (HCC) Essential hypertension Chronic renal insufficiency, stage 3 (moderate) (HCC) Expected: 11/02/2022, Expires: 01/02/2023 [facility] Work Phone: Comment on above: Expected: 11/02/2022 , Expires: 01/02/2023 Start: 11-02-2022 End: 01-02-2023 PROT ELECT SERUM WITH FAUSTINA AND INTERP PROT ELECT SERUM WITH FAUSTINA AND INTERP Lab Routine Monoclonal gammopathy Prostate cancer (HCC) Essential hypertension Chronic renal insufficiency, stage 3 (moderate) (HCC) Expected: 11/02/2022, Expires: 01/02/2023 [facility] Work Phone: Comment on above: Expected: 11/02/2022 , Expires: 01/02/2023 Start: 10-09-2022 Bacteria identified in Urine by Culture [facility] Start: 10-07-2022 Covid-19 Vaccine () Covid-19 Vaccine () [facility] Start: 10-07-2022 Influenza vaccination [facility] Start: 06-02-2022 End: 08-02-2022 CBC W Auto Differential panel - Blood CBC + DIFF Lab Routine Monoclonal gammopathy Expected: 06/02/2022, Expires: 08/02/2022 [facility] Work Phone: Comment on above: Expected: 06/02/2022 , Expires: 08/02/2022 Start: 06-02-2022 End: 08-02-2022 Comprehensive metabolic 2000 panel - Serum or Plasma COMP METABOLIC PANEL Lab Routine Monoclonal gammopathy Expected: 06/02/2022, Expires: 08/02/2022 [facility] Work Phone: Comment on above: Expected: 06/02/2022 , Expires: 08/02/2022 Start: 06-02-2022 End: 08-02-2022 MONOCLONAL PROTEIN, SERUM (BLOOD) MONOCLONAL PROTEIN, SERUM (BLOOD) Lab Routine Monoclonal gammopathy Expected: 06/02/2022, Expires: 08/02/2022 [facility] Work Phone: Comment on above: Expected: 06/02/2022 , Expires: 08/02/2022 Start: 06-02-2022 End: 08-02-2022 PROT ELECT SERUM WITH FAUSTINA AND INTERP PROT ELECT SERUM WITH FAUSTINA AND INTERP Lab Routine Monoclonal gammopathy Expected: 06/02/2022, Expires: 08/02/2022 [facility] Work Phone: Comment on above: Expected: 06/02/2022 , Expires: 08/02/2022 Start: 05-10-2022 Adult depression screening assessment DEPRESSION SCREENING [facility] Start: 02-06-2022 ADVANCE DIRECTIVE DISCUSSION ADVANCE DIRECTIVE DISCUSSION [facility] Start: 02-06-2022 DEPRESSION ASSESSMENT DEPRESSION ASS ESSMENT [facility] Start: 11-02-2021 End: 01-02-2022 CBC W Auto Differential panel - Blood CBC + DIFF Lab Routine Monoclonal gammopathy Expected: 11/02/2021, Expires: 01/02/2022 [facility] Work Phone: Comment on above: Expected: 11/02/2021 , Expires: 01/02/2022 Start: 11-02-2021 End: 01-02-2022 Comprehensive metabolic 2000 panel - Serum or Plasma COMP METABOLIC PANEL Lab Routine Monoclonal gammopathy Expected: 11/02/2021, Expires: 01/02/2022 [facility] Work Phone: Comment on above: Expected: 11/02/2021 , Expires: 01/02/2022 Start: 11-02-2021 End: 01-02-2022 PROT ELECT SERUM WITH FAUSTNIA AND INTERP PROT ELECT SERUM WITH FAUSTINA AND INTERP Lab Routine Monoclonal gammopathy Expected: 11/02/2021, Expires: 01/02/2022 [facility] Work Phone: Comment on above: Expected: 11/02/2021 , Expires: 01/02/2022 Start: 10-29-2021 Adult depression screening assessment DEPRESSION SCREENING [facility] Start: 10-07-2021 Influenza vaccination [facility] Start: 2021 RSV Vaccine (1 - 1-d ose 75+ series) RSV Vaccine (1 - 1-dose 75+ series) [facility] Start: 05-10-2021 End: 07-10-2021 CBC W Auto Differential panel - Blood CBC + DIFF Lab Routine Monoclonal gammopathy Prostate cancer (HCC) Expected: 05/10/2021, Expires: 07/10/2021 [facility] Work Phone: Comment on above: Expected: 05/10/2021 , Expires: 07/10/2021 Start: 02-06-2021 ADVANCE DIRECTIVE DISCUSSION ADVANCE DIRECTIVE DISCUSSION [facility] Start: 02-06-2021 DEPRESSION ASSESSMENT DEPRESSION ASS ESSMENT [facility] Start: 10-07-2020 Influenza vaccination INFLUENZA (#1) [facility] Start: 08-27-2020 COVID-19 VACCINE (3 - Booster) COVID-19 VACCINE (3 - Booster) [facility] Start: 05-25-2020 COVID-19 VACCINE (3 - Booster) COVID-19 VACCINE (3 - Booster) [facility] Start: 05-25-2020 COVID-19 VACCINE (3 - Mixed Product series) COVID-19 VACCINE (3 - Mixed Product series) [facility] Start: 10-08-2019 Influenza vaccination INFLUENZA (#1) [facility] Start: 02-06-2013 Colonoscopy COLONOSCOPY [facility] Start: 02-06-2013 COLORECTAL CANCER SCREENING COLORECTAL CANCER SCREENING [facility] Start: 09-03-2011 ADVANCE DIRECTIVE DISCUSSION ADVANCE DIRECTIVE DISCUSSION [facility] Start: 09-03-2011 Pneumococcal Vaccine : 50+ (1 of 1 - PCV) Pneumococcal Vaccine: 50+ (1 of 1 - PCV) [facility] Start: 09-03-2011 Pneumococcal Vaccine : 65+ (1 - PCV) Pneumococcal Vaccine: 65+ (1 - PCV) [facility] Start: 09-03-2011 Pneumococcal Vaccine : 65+ (1 of 1 - PCV) Pneumococcal Vaccine: 65+ (1 of 1 - PCV) [facility] Start: 09-03-2011 PNEUMOCOCCAL: 65+ (1 - PCV) PNEUMOCOCCAL: 65+ (1 - PCV) [facility] Start: 09-03-2011 PNEUMOVAX AGE 65 AND OVER WITH 5YR LOOKBACK (#1) PNEUMOVAX AGE 65 AND OVER WITH 5YR LOOKBACK (#1) [facility] Start: 2006 RSV Vaccine (1 - 1-d ose 60+ series) RSV Vaccine (1 - 1-dose 60+ series) [facility] Start: 1996 Pneumococcal Vaccine : 50+ (1 of 1 - PCV) Pneumococcal Vaccine: 50+ (1 of 1 - PCV) [facility] Start: 1996 SHINGRIX VACCINE (1 of 2) GOLDSMITH GRIX VACCINE (1 of 2) [facility] Start: 1996 Tuberculosis screening COLOREC AUBRIE CANCER SCREENING,SEE MODIFIER [facility] Start: 09-03-1991 COLOGUARD (FIT-DNA) COLOGUARD (FIT-D NA) [facility] Start: 09-03-[address] COLONOGRAPHY [facility] Start: 09-03-1991 DIABETES SCREEN DIABETES SCREEN [facility] Start: 09-03-1991 FECAL OCCULT BLOOD FECAL OCCULT BLOO D [facility] Start: 09-03-1991 SIGMOIDOSCOPY SIGMOIDOSCOPY [facility] Start: 1981 LIPID SCREEN LIPID SCREEN [facility] Start: 1965 Urine microalbumin profile [facility] Start: 1964 Anxiety Screening Anxiety Screening [facility] Start: 1964 Depression Screening Depression Scre ening [facility] Start: 1964 HEPATITIS C SCREENING HEPATITIS C [facility] Start: 1964 Hepatitis C screening Hepatitis C [facility] CT SIM PLANNING RADI ATION ONCOLOGY CT SIM PLANNING RADIATION ONCOLOGY Radiology Routine Malignant neoplasm of prostate (HCC) Ordered: 12/15/2022 [facility] Work Phone: Comment on above: Ordered: 12/15/2022 End: 12-15-2023 MRI PROSTATE WO/W IVCON MRI PROSTATE WO/W IVCON Radiology Routine Malignant neoplasm of prostate (HCC) 1 Occurrences starting 11/15/2022 until 12/15/2023 [facility] Work Phone: Comment on above: 1 Occurrences starti ng 11/15/2022 until 12/15/2023 [facility] Immunizations Immunization Date Immunization Notes Care Provider Fa cility 03-30-2020 COVID-19 vaccine (UNSPECIFIED) Nicolas Hwang MD Work Phone: [facility] 03-08-2020 COVID-19 vaccine (UNSPECIFIED) Nicolas Hwang MD Work Phone: [facility] NEGATED: Highlighted row has not occurred!10-23-2023 influenza virus vaccine, unspecified formulation Yosef GRIMES [facility] [place] Payers Date Payer Category Payer Self-pay 2020 Medicare AET[employer] MEDICARE A ETNA MEDICARE PPO [id number] 2020-Present [phone] [address] [place] [address] PPO [id number] 2020 Medicare [employer] MEDICARE A ETNA MEDICARE PPO [id number] 2020-Present [phone] [address] [place] [address] PPO [id number] 2020 Medicare (Managed Care[place] [id number] 2019 Medicare AETNA MEDICARE A ETNA MEDICARE PPO [id number] 2019-Present PPO [id number] 1959 Medicare [id number] 1946 Unknown [id number] 2.16.840.1.868535.3.579.2. 593 1946 Unknown [id number] 2.16.840.1.402308.3.579.2. 593 1946 Unknown [id number] 2.16.840.1.831090.3.579.2. 593 1946 Unknown [id number] 2.16.840.1.886592.3.579.2. 593 1946 Unknown [id number] 2.16.840.1.206991.3.579.2. 593 1946 Unknown [id number] 2.16.840.1.743691.3.579.2. 72 1946 Unknown [id number] 2.16.840.1.474147.3.579.2. 727 1946 Unknown [id number] 2.16.840.1.812433.3.579.2. 72 1946 Unknown [id number] 2.16.840.1.894438.3.579.2. 727 1946 Unknown [id number] 2.16.840.1.605998.3.579.2. 727 1946 Unknown [id number] 2.16.840.1.179221.3.579.2. 727 1946 Unknown [id number] 2.16.840.1.023101.3.579.2. 72 1946 Unknown [id number] 2.16.840.1.165221.3.579.2. 727 1946 Unknown [id number] 2.16.840.1.952672.3.579.2. 72 1946 Unknown [id number] 2.16840.1.215361.3.579.2. 1946 Unknown [id number] 2.16840.1.146271.3.579.2 1946 Unknown [id number] 2.16.840.1.937966.3.579.2. 1946 Unknown [id number] 2.16840.1.934231.3.579.2 1946 Unknown [id number] 2.16840.1.903783.3.579.2 1946 Unknown [id number] 2.840.1.471067.3.579.2 1946 Unknown [id number] 2.840.1.129243.3.579.2 1946 Unknown [id number] 2.840.1.844129.3.579.2 1946 Unknown [id number] 2.840.1.207544.3.579.2 1946 Unknown [id number] 2.16840.1.806544.3.579.2 1946 Unknown [id number] 2.840.1.549238.3.579.2 1946 Unknown [id number] 2.840.1.067082.3.579.2 1946 Unknown [id number] 2.16840.1.480439.3.579.2. 727 Medicare [id number] [id number] Unknown [id number] 2.840.1.274366.3.579.2. 531 Social History Date Type Detail Facility Tobacco smoking status MEIS Unknown if ever smoked [facility] Start: 1945 Sex Assigned At Not on file [facility] Start: 10-22-2019 End: 11-02-2021 Tobacco smoking status NHIS Never smoked tobacco [facility] Comment on above: patient never a smok er denies use Start: 10-22-2019 End: 11-02-2021 Tobacco use and exposure Smokeless tobacco non-user [facility] Start: 10-29-2020 End: 06-04-2024 Alcohol intake Ex-drinker (finding) [facility] Start: 04-30-2021 End: 11-02-2021 Exposure to SARS-CoV-2 (event) Not sure [facility] Start: 06-02-2022 End: 11-15-2022 Sex Assigned At [facility] 71lbs Other History of tobacco use Passive smoker [facility] Tobacco smoking status Never [facility] Comment on above: patient never a smok er denies use Start: 06-02-2022 End: 11-15-2022 History of Social function [facility] Start: 1945 Sex Assigned At Male F [facility] Start: 02-24-2024 Sex Male (finding) [facility] Functional Status Date Assessment Result Facility 03-04-2024 Functional Status N/A [facility] 01-23-2024 Functional Status N/A [facility] 01-10-2024 Functional Status N/A [facility] 01-08-2024 Functional Status N/A [facility] 11-24-2023 Functional Status N/A [facility] 05-22-2023 Functional Status N/A [facility] 12-02-2022 Functional Status N/A [facility] 11-18-2022 Functional Status N/A [facility] 10-03-2022 Functional Status N/A [facility] 09-27-2021 N/A [facility] Clinical Notes 05-21-2019 to 06-04-2024 David Kumari MD - 06/04/2024 2:55 PM Letty Covarrubias RN - 06/04/2024 2:53 PM Minoo Byrne APRN.FOLDED TOWEL MACHINE OPERATOR - 05/20/2024 2:00 PM Nancy Bowen, RT(R) - 05/07/2024 1:00 PM EDT Note Date & Type Note Facility 06-04-2024 Note HNO ID: [id number] Author: David KUMARI MD Service: ? Author [...] ASSESSMENT/PLAN: Prostate adenocarcinoma, initial PSA 7.5, biopsy [place] score 4 + 3 = 7 (grade [...] Kumari MD cc: Shahriar Stephenson [address] [place] [address] No referring provider defined for this encounter. [facility] 06-04-2024 History of Present illness Narrative Radiation Oncology - Follow Up Note PATIENT NAME: Adolph Johns PATIENT DIAGNOSIS: Prostate adenocarcinoma, initial PSA 7.5, biopsy [place] score 4 + 3 = 7 (grade [...] ASSESSMENT/PLAN: Prostate adenocarcinoma, initial PSA 7.5, biopsy [place] score 4 + 3 = 7 (grade [...] by: David Kumari MD cc: Shahriar Stephenson [address] [place] [address] No referring provider defined for this encounter. AUA= 7 documented in this encounter [facility] 06-04-2024 Note HNO ID: [id number] Author: LETTY BARAHONA RN Service: ? Author Type: Registered Nurse Type: Progress Notes Filed: 06/07/2024 10:34 Note Text: AUA= 7 [facility] 05-20-2024 History of Present illness Narrative Images [...] No difficulties with urination. Has returned from [place] Labs stable. MEDICATIONS: abiraterone 250 mg tablet [...] or petechiae. PATHOLOGY: 11/10/2022 Bladder tumor, TURBT ([facility]) Metastatic poorly differentiated adenocarcinoma, consistent with [...] lesion. No comparison study. 10/28/2019 Skeletal survey ([facility]) Subtle oval slightly lytic-appearing lesion within [...] management per PCP/nephrology. . Minoo Gill APRN, PROFESSOR OF BUSINESS-C, [facility] Provided at: [place], [place] documented in this encounter [facility] 05-20-2024 Note HNO ID: [id number] Author: MINOO GILL APRN.NORBERTO Service: ? Author [...] No difficulties with urination. Has returned from [place] Labs stable. MEDICATIONS: abiraterone 250 mg tablet [...] or petechiae. PATHOLOGY: 11/10/2022 Bladder tumor, TURBT ([facility]) Metastatic poorly differentiated adenocarcinoma, consistent with [...] lesion. No comparison study. 10/28/2019 Skeletal survey ([facility]) Subtle oval slightly lytic-appearing lesion within the right femoral neck, nonspecific and may repr (more content not included)... [facility] 05-20-2024 Note Patient Education Oncology Hormone Suppression [...] cancer. Where to find more information ??? [place] [employer] Society: www.cancer.org ??? National Cancer Mathews: www.cancer.gov Contact a health care provider if: [...] confused. ??? You (more content not included)... [facility] 05-07-2024 History of Present illness Narrative Radiology [...] PATIENT PRESENTS WITH AN IMPLANTABLE OR ATTACHED SALES ACCOUNT DIRECTOR: No RADIOLOGY DEPARTMENT: General X-ray: Exam(s) Completed: Abdomen X-Ray: Abdomen PERIPHERAL IV DATA: Not applicable SIGNED BY: RT Jace(Alivia) May 07, 2024 1:20 PM documented in this encounter [facility] 05-07-2024 Note HNO ID: [id number] Author: NANCY SAENZ RT(R) Service: ? Author [...] PATIENT PRESENTS WITH AN IMPLANTABLE OR ATTACHED SALES ACCOUNT DIRECTOR: No RADIOLOGY DEPARTMENT: General X-ray: Exam(s) Completed: Abdomen X-Ray: Abdomen PERIPHERAL IV DATA: Not applicable SIGNED BY: RT Jace(Alivia) May 07, 2024 1:20 PM [facility] 03-04-2024 Hospital Discharge instructions Patient Education 03/04/2024 [...] including vitamins, herbs, eye drops, creams, and gejg-blt-bnlbdbf medicines. Any problems you or family members [...] provider tells you to take them. Taking hptr-xai-opsvggl medicines, vitamins, herbs, and supplements. Tests You [...] Follow these instructions at home: Medicines Take digo-whb-hccgeca and prescription medicines only as told by [...] provider. Document Revised: 10/06/2021 Document Reviewed: 09/04/2020 [employer] Patient Education 2023 [employer] 03/04/2024 10:49:40 Prostate Cancer Screening Prostate Cancer [...] treatment? Where to find more information The [place] Cancer Society: www.cancer.org [place] [employer] Association: www.auanet.org Contact a health care [...] provider. Document Revised: 07/19/2021 Document Reviewed: 07/19/2021 [employer] Patient Education 2023 [employer] Follow Up Care 02/27/2024 15:41:35 With:CORNELIO ROSARIO, Yosef Bunch, URL Address: [facility] [address], [place] [id number] When: Unknown Comments:Has f/u 05/20/24 w/ PSA and Justin and JOSE, also to schedule cysto [facility] 03-04-2024 Note Patient Education Oncology Prostate Cancer [...] Where to find more information ??? The [place] Cancer Society: www.cancer.org ??? [place] [employer] Association: www.auanet.org Contact a health care [...] The prostate gland (more content not included)... [facility] 02-01-2024 Note Echocardiology Procedure Exam Date/Time Accession # Ordering Dr. Decker Transthoracic w/ 01/30/2024 11:56 EST [id number] Bob ROSARIO, Meño Eckert CPT code 69982 C8929 Reason for Exam (Echo Transthoracic w/ Contrast) Abnormal ECG, Chest pain R94.31;Other (please specify) Report [facility] [address] [place] [address] Adult Echocardiogram Report Name: GONZÁLEZ JOHNSDERECK Mart Study Date: 01/30/2024 10:54 AM BP: 137/84 mmHg Patient Location: FT CAR [facility] Ambulatory(s) [facility] HR: 80 : 1945 Gender: Male Height: 76 in Age: 78 yrs Ethnicity: T Weight: 262 lb Reason For Study: Abnormal ECG BSA: 2.5 m2 History: HTN,Prostate/Bladder Ca Ordering Physician: Bob^Meño Referring Physician: Meño Rojas Performed By: Yojnaa Rios, POLO, RVT Interpretation Summary Image enhancing [...] MD Transcribed by: NETTE Technologist: BASIA Mancia [facility] 01-19-2024 History of Present illness Narrative [...] TO CHANGE TRACKING LOCATION MS BLAS 10/29/2020 6949 P.O.C.T. RESULTS: POC done: Yes, See Lab Tab January 19, 2024 TREATMENT: N/A IV SITE: Ambulatory: A peripheral IV was started in the Right hand with a Angio cath: 20 gauge. IV SITE APPEARANCE: Clean,Dry and Intact SIGNATURE: Blayne Mosqueda RN PATIENT NAME: Adolph Johns DATE: January 19, 2024 TIME: 8:37 AM documented in this encounter [facility] 01-19-2024 Note HNO ID: [id number] Author: BLAYNE MOSQUEDA RN Service: ? Author [...] TO CHANGE TRACKING LOCATION MS BLAS 10/29/2020 0131 P.O.C.T. RESULTS: POC done: Yes, See Lab Tab January 19, 2024 TREATMENT: N/A IV SITE: Ambulatory: A peripheral IV was started in the Right hand with a Angio cath: 20 gauge. IV SITE APPEARANCE: Clean,Dry and Intact SIGNATURE: Blayne Mosqueda RN PATIENT NAME: Adolph Johns DATE: January 19, 2024 TIME: 8:37 AM [facility] 01-10-2024 Hospital Discharge instructions Patient Education [...] Follow these instructions at home: Medicines Take rqyy-fil-lwtkinp and prescription medicines only as told by [...] to keep your urine pale yellow. ?Take trpk-bwj-nfcwauh or prescription medicines. ?Eat foods that are [...] and pain in your lower abdomen. Take lgjv-hpz-csdjdoi and prescription medicines only as told by [...] provider. Document Revised: 01/28/2022 Document Reviewed: 01/28/2022 [employer] Patient Education 2023 [employer] 01/10/2024 13:10:32 Transurethral Resection of Bladder Tumor [...] including vitamins, herbs, eye drops, creams, and tste-kmn-muxrmpc medicines. Any problems you or family members [...] provider tells you to take them. Taking wcfh-faf-oqnmtxv medicines, vitamins, herbs, and supplements. General instructions [...] provider. Document Revised: 01/28/2022 Document Reviewed: 01/28/2022 [employer] Patient Education 2023 [employer] Follow Up Care 01/08/2024 10:29:10 With:CORNELIO ROSARIO, Yosef Bunch, URL Address: [facility] [address] , [place] [address]- When: Unknown [facility] Jose 01-10-2024 Note Patient Education Oncology Transurethral [...] these instructions at home: Medicines ??? Take anlf-iin-tmgpusg and prescription medicines only as told by [...] keep your urine pale yellow. ? Take tmju-jwd-nxcmclz or prescription medicines. ? Eat foods that [...] pain in your lower abdomen. ??? Take lrfh-llf-elsajhd and prescription medicines only as told by [...] your drainage bag. (more content not included)... [facility] 01-08-2024 Hospital Discharge instructions Patient Education [...] including vitamins, herbs, eye drops, creams, and jcpt-qsv-zrcnzud medicines. Any problems you or family members [...] provider tells you to take them. Taking ldfn-nwu-xocdgzm medicines, vitamins, herbs, and supplements. Tests You [...] Follow these instructions at home: Medicines Take ahlt-pwd-rzqvokc and prescription medicines only as told by [...] provider. Document Revised: 10/06/2021 Document Reviewed: 09/04/2020 [employer] Patient Education 2023 [employer] 01/08/2024 10:14:09 Hematuria, Adult Hematuria, Adult Hematuria [...] Follow these instructions at home: Medicines Take oesy-nck-xhuaowq and prescription medicines only as told by [...] or the blood stops without treatment. Take kizw-hxs-zpgavss and prescription medicines only as told by your health care provider. Drink enough fluid to keep your urine pale yellow. This information is not intended to replace advice given to you by your health care provider. Make sure you discuss any questions you have with your health care provider. Document Revised: 09/23/2020 Document Reviewed: 09/23/2020 [employer] Patient Education 2023 [employer] Follow Up Care 01/01/2024 08:46:40 With:CORNELIO ROSARIO, Yosef Bunch, URL Address: [facility] [address] , [place] [address]- [phone] When: Unknown [facility] 01-08-2024 Note Patient Education Urology Cystoscopy Cystoscopy [...] including vitamins, herbs, eye drops, creams, and nezw-lbg-dopxcoh medicines. ??? Any problems you or family [...] tells you to take them. ??? Taking cyxw-ucb-hsmcuow medicines, vitamins, herbs, and supplements. Tests You [...] these instructions at home: Medicines ??? Take envd-zwp-mxgraav and prescription medicines only as told by [...] (biopsy) during your (more content not included)... [facility] 01-01-2024 Telephone encounter Note Pt returned call and was notified. Peggy Lakhani RN [facility] 01-01-2024 Miscellaneous Notes Pt returned call and [...] Letty Barahona RN documented in this encounter [facility] 01-01-2024 Telephone encounter Note I left a message for Adolph to call the office. Letty Barahona RN [facility] 12-29-2023 Telephone encounter Note Attempted to call patient with Dr. Kumari's recommendation but there was no answer. Letty Barahona RN [facility] 12-29-2023 Telephone encounter Note Adolph left a [...] CT scans. Please advise. Letty Barahona RN [facility] 11-24-2023 Hospital Discharge instructions Patient Education 11/24/2023 [...] similar to normal prostate cells (moderately differentiated). [place] 8, 9, or 10: This indicates that [...] stress of having cancer. General instructions Take lobx-bhn-furejsj and prescription medicines only as told by your health care provider. If you have to go to the hospital, notify your cancer specialist (oncologist). Keep all follow-up visits. This is important. Where to find more information [place] Cancer Society: www.cancer.org [place] Society of Clinical Oncology: www.cancer.net National Cancer Mathews: www.cancer.gov Contact a health care provider if: [...] provider. Document Revised: 04/21/2021 Document Reviewed: 04/21/2021 [employer] Patient Education 2023 [employer] Follow Up Care 05/22/2023 12:03:30 With:CORNELIO ROSARIO, Yosef Bunch, URL Address: [address] [place] [address]- When: Unknown [facility] 11-24-2023 Note Patient Education Oncology Prostate [...] likelihood that the cancer will spread. ? [place] 6 or lower: This indicates that the [...] the prostate gla (more content not included)... [facility] 11-16-2023 History of Present illness Narrative Radiation Oncology - Follow Up Note PATIENT NAME: Adolph Johns PATIENT DIAGNOSIS: Prostate adenocarcinoma, initial PSA 7.5, biopsy [place] score 4 + 3 = 7 (grade [...] ASSESSMENT/PLAN: Prostate adenocarcinoma, initial PSA 7.5, biopsy [place] score 4 + 3 = 7 (grade [...] by: David Kumari MD cc: Shahriar Stephenson [address] [place] [id number] No referring provider defined for this encounter. documented in this encounter [facility] 11-16-2023 Note HNO ID: [id number] Author: David KUMARI MD Service: ? Author [...] Kumari MD cc: Shahriar Stephenson [address] [place] [address] No referring provider defined for this encounter. [facility] 11-16-2023 Nurse Note JACK Lakhani RN [facility] 11-16-2023 Nurse Note JACK Lakhani RN documented in this encounter [facility] 11-15-2023 Note HNO ID: [id number] Author: NICOLAS HWANG MD Service: ? Author [...] with urination. He plans to travel to [place] next week where he plans to spend [...] or petechiae. PATHOLOGY: 11/10/2022 Bladder tumor, TURBT ([facility]) Metastatic poorly differentiated adenocarcinoma, consistent with [...] lesion. No comparison study. 10/28/2019 Skeletal survey ([facility]) Subtle oval slightly lytic-appearing lesion within the right femoral neck, nonspecific and may represent summation ar (more content not included)... [facility] 11-15-2023 History of Present illness Narrative [...] with urination. He plans to travel to [place] next week where he plans to spend [...] or petechiae. PATHOLOGY: 11/10/2022 Bladder tumor, TURBT ([facility]) Metastatic poorly differentiated adenocarcinoma, consistent with [...] lesion. No comparison study. 10/28/2019 Skeletal survey ([facility]) Subtle oval slightly lytic-appearing lesion within [...] in May 2024 after he returns from [place] to [place]. 2. Monoclonal gammopathy - ICD9: 273.1, ICD10: [...] Nicolas Hwang MD documented in this encounter [facility] 10-23-2023 Note Patient Education Nutrition BMI for [...] for Disease Control and Prevention: cdc.gov ? [place] Heart Association: heart.org ? National Heart, Lung, and Blood Mathews: nhlbi.nih.gov This information is not intended to replace advice given to you by your health care provider. Make sure you discuss any questions you have with your health care provider. Document Revised: 10/13/2022 Document Reviewed: 10/06/2022 [employer] Patient Education ? 2023 [employer] DASH Eating Plan DASH stands for [...] vegetables each day (more content not included)... [facility] 05-22-2023 Hospital Discharge instructions Patient Education [...] advanced cancer. Where to find more information [place] Cancer Society: www.cancer.org National Cancer Mathews: www.cancer.gov Contact a health care provider if: [...] provider. Document Revised: 05/06/2021 Document Reviewed: 05/06/2021 [employer] Patient Education 2022 [employer] Follow Up Care 12/02/2022 13:08:27 With:CORNELIO ROSARIO, Yosef Bunch, URL Address: [facility] [address] , [place] [address]- [phone] When: Unknown Comments:6 mos w/ PSA (gets level from [facility]) [facility] [place] 05-18-2023 History of Present illness Narrative [...] David Kumari MD cc: Shahriar Stephenson [address] [place] [address] No referring provider defined for this encounter. documented in this encounter [facility] 05-18-2023 Nurse Note AUA 5 Peggy Lakhani, SINDI documented in this encounter [facility] 05-18-2023 History of Present illness Narrative PATIENT [...] or petechiae. PATHOLOGY: 11/10/2022 Bladder tumor, TURBT ([facility]) Metastatic poorly differentiated adenocarcinoma, consistent with [...] lesion. No comparison study. 10/28/2019 Skeletal survey ([facility]) Subtle oval slightly lytic-appearing lesion within [...] which included preparing to see the patient, bqtz-op-dxgq patient care, completing clinical documentation, obtaining and/or reviewing separately obtained history, performing a medically appropriate examination, counseling and educating the patient/family/caregiver, ordering medications, tests, or procedures, independently interpreting results (not separately reported), and communicating results to the patient/family/caregiver. documented in this encounter [facility] 05-08-2023 Miscellaneous Notes Patient coming in 05/18/23 for follow up with labs. Please add lab orders. Bettina El MA documented in this encounter [facility] 01-26-2023 History of Present illness Narrative Boost set up films reviewed documented in this encounter [facility] 01-17-2023 History of Present illness Narrative Boost reese reviewed. documented in this encounter [facility] 01-16-2023 History of Present illness Narrative Images from the original note were not included. Radiation Oncology - On Treatment Review (OTR) Note PATIENT NAME: Adolph Johns PATIENT DIAGNOSIS: Prostate adenocarcinoma, initial PSA 7.5, biopsy [place] score 4 + 3 = 7 (grade [...] David Kumari MD documented in this encounter [facility] 01-11-2023 History of Present illness Narrative ADOLPH JOHNS [id number] 01/11/2023 [facility] Department of Radiation Oncology Treatment Planning [...] M.D. 31:35 PM documented in this encounter [facility] 01-09-2023 Miscellaneous Notes I notified Adolph of [...] Letty Barahona RN documented in this encounter [facility] 01-06-2023 Miscellaneous Notes The following approved medication [...] diet. Pt would like script sent to [facility] [place]. Morgan: Please review and sign pending order. Thanks! Jessica Amezquita RN ----- Message from Nicolas Hwang MD sent at 01/06/2023 7:58 AM EST ----- Please inform the patient that his potassium is slightly low. Possibly from his Zestoretic or abiraterone/prednisone. Would recommend potassium supplement with 10 mEq 1 daily. documented in this encounter [facility] 01-05-2023 History of Present illness Narrative PATIENT [...] visit his bladder biopsy was reviewed by [facility] pathology, and the diagnosis of poorly differentiated [...] or petechiae. PATHOLOGY: 11/10/2022 Bladder tumor, TURBT ([facility]) Metastatic poorly differentiated adenocarcinoma, consistent with [...] lesion. No comparison study. 10/28/2019 Skeletal survey ([facility]) Subtle oval slightly lytic-appearing lesion within [...] patient plans to spend the winter in [place] after radiation is completed. I will see him back in May 2023 when he returns to [place]. 2. Monoclonal gammopathy - ICD9: 273.1, ICD10: [...] Dr. Cornelio Mccarty documented in this encounter [facility] 01-02-2023 History of Present illness Narrative Radiation Oncology - On Treatment Review (OTR) Note PATIENT NAME: Adolph Johns PATIENT DIAGNOSIS: Prostate adenocarcinoma, initial PSA 7.5, biopsy [place] score 4 + 3 = 7 (grade [...] David Kumari MD documented in this encounter [facility] 12-26-2022 History of Present illness Narrative Radiation Oncology - On Treatment Review (OTR) Note PATIENT NAME: Adolph Johns PATIENT DIAGNOSIS: Prostate adenocarcinoma, initial PSA 7.5, biopsy [place] score 4 + 3 = 7 (grade [...] David Kumari MD documented in this encounter [facility] 12-22-2022 Nurse Note Adolph Johns presents in office today for: Lab Draw only . Ordering Provider: Damien Kumari M.D. Test (s) ordered: CBC Method for obtaining blood: Phlebotomy was performed, accessing left antecubital vein. Needle removed intact. Dressing secured. Patient denies discomfort, dizziness, light-headedness or weakness and left the department without assist. Letty Barahona LPN documented in this encounter [facility] 12-19-2022 Miscellaneous Notes Patient is scheduled for 12/21/2022 at 10:30AM with Dr Leila Evans at [facility]. I called and let him know appt day and time. documented in this encounter [facility] 12-19-2022 History of Present illness Narrative Radiation [...] lesion unrelated we will have him see product safety professional. Chart and imaging reviewed. Continue radiation as outlined. David Kumari MD documented in this encounter [facility] 12-15-2022 Miscellaneous Notes ORAL ANTI-CANCER AGENTS FOLLOW-UP [...] Nancy Ray, RN documented in this encounter [facility] 12-14-2022 History of Present illness Narrative Radiation [...] David Kumari MD documented in this encounter [facility] 12-08-2022 History of Present illness Narrative ADOLPH JOHNS [id number] 12/08/2022 [facility] Department of Radiation Oncology Treatment Planning [...] M.D. 33:30 PM documented in this encounter [facility] 12-02-2022 Hospital Discharge instructions Patient Education 12/02/2022 [...] the likelihood that the cancer will spread. [place] 6 or lower: This indicates that the [...] stress of having cancer. General instructions Take waur-sed-fcbgttl and prescription medicines only as told by your health care provider. If you have to go to the hospital, notify your cancer specialist (oncologist). Keep all follow-up visits. This is important. Where to find more information [place] Cancer Society: www.cancer.org [place] Society of Clinical Oncology: www.cancer.net National Cancer Mathews: www.cancer.gov Contact a health care provider if: [...] provider. Document Revised: 04/21/2021 Document Reviewed: 04/21/2021 [employer] Patient Education 2022 [employer] 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 Was approved? No Signed by: Letty Barahona LPN documented in this encounter [facility] 11-28-2022 History of Present illness Narrative Radiology [...] 2022 12:01 PM documented in this encounter [facility] 11-18-2022 Hospital Discharge instructions Patient Education 11/18/2022 [...] under a microscope. This is called the [place] score and the total score can range from 6 10, indicating how likely it is that the cancer will spread (metastasize) to other parts of the body. The higher the score, the greater the likelihood that the cancer will spread. [place] 6 or lower: This indicates that the [...] stress of having cancer. General instructions Take kwec-iou-lwqctkh and prescription medicines only as told by your health care provider. If you have to go to the hospital, notify your cancer specialist (oncologist). Keep all follow-up visits. This is important. Where to find more information [place] [employer]: www.cancer.org [place] [employer] On[employer]: www.cancer.net National Cancer Mathews: www.cancer.gov Contact a health care provider if: [...] provider. Document Revised: 04/21/2021 Document Reviewed: 04/21/2021 [employer] Patient Education 2022 [employer] 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 No evidence of metastasis on staging. He underwent nerve sparing radical retropubic prostatectomy and bilateral pelvic lymphadenectomy on 01/07/2016. Pathology revealed adenocarcinoma, [place] 8 (4+4), no evidence of extraprostatic extension, no seminal vesicle invasion, margins uninvolved, perineural invasion was seen, 2 regional lymph nodes removed without evidence of metastasis.[id number] Post prostatectomy PSA undetectable. However PSA has [...] by: David Kumari MD cc: Shahriar Stephenson [facility] [place] [place] [address] Yosef R Cornelio [address] [facility] [id number] documented in this encounter [facility] 10-28-2022 History of Present illness Narrative RADIOLOGY SERVICE PROGRESS NOTE SERVICE DATE: 10/28/2022 SERVICE TIME: 1:51 PM PATIENT IDENTITY VERIFICATION COMPLETED USING TWO (2) STANDARD IDENTIFIERS: Name and Date of confirmed by patient verbally POST EXAM PIV STATUS: Discontinued PROCEDURE TYPE: NM INJECT: PET/CT BODY SCAN. 10.5 mCi F18 FDG. No other medications given.. ADMINISTRATION TIME: 1245 PATIENT DISCHARGED TO: Ambulatory patient, left [place] department area. A Diagnostic radioactive procedure has taken place, with no further precautions necessary other than routine body substance precautions. More information regarding radiation safety can be found using this link: [email or web address] SIGNATURE: RT Jace(R) PATIENT NAME: Adolph Johns DATE: October 28, 2022 TIME: 1:51 PM PAGER/CONTACT #: documented in this encounter [facility] 10-09-2022 Evaluation note Encounter Date Diagnosis Assessment [...] Patient states he did 2 [address]TI stqk-xex-ifwf ter test that were positive for nitrites. Patient appears nontoxic and will be treated for UTI according to his symptoms. Stressed the need for the patient to go to the ER for any worsening fevers, vomiting, abdominal pain, back pain. Patient agrees with this plan. [place] Other 09-01-2023 Miscellaneous Notes* Telephone Encounter - Brook Ambrosio - 10/07/2022 11:51 AM EDT Patient has been scheduled. 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 Is this request for a [facility] [place] PET scan appointment? Yes: Supervisor Gate Services: Melodie Ladd Requesting Person Dr landers (external order scanned in along with auth) Name): Area Code + Phone/Pager: [phone] Who do we call to schedule this appointment? PSMA please route to Lucila saenz in [place] (external orders) Requesting Staff Dr grimes Area Code + Phone/Pager: [phone] PET Orders (A delay in scheduling will result if the orders are not present at time of review): External. Has the External Clinical Order been scanned into [facility]? Yes ADDITIONAL ACTION MAY BE REQUIRED IF [...] file for patient also. Send requests to [facility] documented in this encounterV[facility]08-[facility]-2023 Hospital Discharge instructions Patient Education 10/03/2022 15:06:33 [...] including vitamins, herbs, eye drops, creams, and jxla-qwf-fwbigbg medicines. Any problems you or family members [...] provider tells you to take them. Taking cotc-tfp-dyuhtkk medicines, vitamins, herbs, and supplements. Tests You [...] Follow these instructions at home: Medicines Take ihnq-pho-vgpnclr and prescription medicines only as told by [...] provider. Document Revised: 10/06/2021 Document Reviewed: 09/04/2020 [employer] Patient Education 2022 [employer] 10/03/2022 15:02:31 Hematuria, Adult Hematuria, Adult Hematuria [...] Follow these instructions at home: Medicines Take yygd-txg-mrnuleg and prescription medicines only as told by [...] or the blood stops without treatment. Take vnmt-jlq-bpiysvi and prescription medicines only as told by your health care provider. Drink enough fluid to keep your urine pale yellow. This information is not intended to replace advice given to you by your health care provider. Make sure you discuss any questions you have with your health care provider. Document Revised: 09/23/2020 Document Reviewed: 09/23/2020 [employer] Patient Education 2022 [employer] 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 He spent the winter months in [place]. MEDICATIONS: lisinopril-hydrochlorothiazide (PRINZIDE,ZESTORETIC) 10-12.5 mg per tablet [...] lesion. No comparison study. 10/28/2019 Skeletal survey ([facility]) Subtle oval slightly lytic-appearing lesion within [...] which included preparing to see the patient, qnor-mh-wazg patient care, completing clinical documentation, obtaining and/or reviewing separately obtained history, performing a medically appropriate examination, counseling and educating the pat ient/family/caregiver, ordering medications, tests, or procedures, independently interpreting results (not separately reported), and communicating results to the patient/family/caregiver. documented in this encounterV[facility]10-03-2022 Miscellaneous Notes* Telephone Encounter - Shima Penny [...] back as scheduled. Thanks, documented in this encounterVeterans Health Administration09-27-2022 History of Present illness Narrative* Nicolas Hwang [...] involvinghis right groin area. FNA obtained 08/16/2021 ([facility]) revealed changes suggestive of fatnecrosis and [...] lesion. No comparison study. 10/28/2019 Skeletal survey ([facility]) Subtle oval slightly lytic-appearing lesion within [...] in 7 months (after he returns from [place]). We will then see him every 6 [...] MD CC: Dr. Cook documented in this encounterVeterans Health Administration08-22-2022 Hospital Discharge instructions Patient Education 09/27/2021 10:40:14 [...] including vitamins, herbs, eye drops, creams, and ojsz-njh-tdaswam medicines. This also includes: ?Medicines to assist [...] 02/25/2005 Document Revised: 01/05/2018 Document Reviewed: 10/30/2017 [employer] Patient Education 2020 [employer] 09/27/2021 10:40:10 Calorie Counting for Weight [...] 01/23/2006 Document Revised: 10/12/2018 Document Reviewed: 12/23/2016 [employer] Patient Education 2020 [employer] Follow Up Care 10/22/2020 15:01:04 With:CORNELIO ROSARIO, Yosef Bunch, URL Address: [address] [place], [place] [id number] Business (1) When:Within 1 Year(s) Comments:w/PSA [facility] 06-27-2022 Miscellaneous Notes* Telephone Encounter - Nicolas Hwang MD - 08/02/2021 5:00 PM EDT The patient was found to have a cystic mass in his groin. He will undergo an ultrasound-guided biopsy at [place]. Dr. Chanel will inform me of the results. If benign I will see him back in Octoberas scheduled. If malignant I will see him after the biopsy to discuss further work-up and treatment. Thanks, BRKris * Telephone Encounter - Melodie Patel Sec - 08/02/2021 1:42 PM EDT Please call Dr Chanel regarding Adolph Phone number is [phone] thanks! documented in this encounterVeter[facility]04-08-2022 Miscellaneous Notes* Telephone Encounter - Pretty Aparicio [...] as planned. Thanks, BRKris documented in this encounterVeterans Health Administration04-08-2022 Miscellaneous Notes* Telephone Encounter - Pretty Aparicio [...] as planned. Thanks, GABI documented in this encounterVeterans Health Administration04-01-2022 Miscellaneous Notes* Telephone Encounter - Bettina Sargent - 10/21/2021 1:38 PM EDT Patient scheduled to see you on Monday11/02/21 for follow up with labs. Please add lab orders. Thanks. Bettina Sargent MA documented in this encounterVeterans Health Administration10-08-2021 Evaluation note* Encounter Date Diagnosis Assessment Notes [...] Patient care instructions given in writting by [facility] Care At Home document. [place] [employer] Other 04-14-2020 Evaluation + Plan note Future Appointments Appointment Date:01/30/2024 11:00:00 AM Scheduled Provider: Location:.[facility] Appointment Type:CV Echo () Appointment Date:05/20/2024 12:45:00 PM Scheduled Provider:[facility]f [facility]IMES [facility] Office Visit Appointment Date:10/24/2024 11:00:00 AM Scheduled Provider: Location:[facility] Appointment Type:FM Medicare Wellness Subsequent Future Scheduled Tests Radiology* Echo Transthoracic Complete 01/30/24 [facility] Evaluation + Plan note Future Appointments Appointment Date:09/26/2022 10:15:00 AM Scheduled Provider:Yosef GRIMES MD Location:[facility] Appointment Type:URO Office Visit Diagnostic Tests Pending * PSA Total 09/27/21 [facility] evaluation + Plan note Future Appointments Appointment Date:10/11/2022 01:00:00 PM Scheduled Provider: Location:[facility] Appointment Type:FM Medicare Wellness Subsequent [facility] evaluation + Plan note Future Appointments Appointment Date:11/18/2022 11:00:00 AM Scheduled Provider:Yosef GRIMES MD Location:[facility] Appointment Type:URO Office Visit Appointment Date:10/13/2023 01:00:00 PM Scheduled Provider: Location:[facility] Appointment Type: Medicare Wellness Subsequent Diagnostic Tests Pending * UroVysion Fish and Urine Cyto ([facility]) [facility]01[facility]22 [facility] Future Appointments Appointment Date:10/13/2023 01:00:00 PM Scheduled Provider: Location:[facility] Appointment Type:FM Medicare Wellness Subsequent [facility] evaluation + Plan note Future Appointments Appointment Date:05/22/2023 11:15:00 AM Scheduled Provider:Yosef GRIMES MD [facility] Type:URO Office Visit Appointment Date:10/13/2023 01:00:00 PM Scheduled Provider: Location:[facility] Appointment Type:FM Medicare Wellness Subsequent Diagnostic Tests Pending * PSA Total 04/07/23 [facility] evaluation + Plan note Future Appointments Appointment Date:10/23/2023 01:00:00 PM Scheduled Provider: Location:[facility] Appointment Type:FM Medicare Wellness Subsequent Appointment Date:11/24/2023 11:00:00 AM Scheduled Provider:Yosef GRIMES MD [facility] Type:URO Office Visit [facility] evaluation + Plan note Future Appointments Appointment Date:05/20/2024 12:45:00 PM Scheduled Provider:Yosef GRIMES MD [facility] App[facility] Type:URO Office Visit Appointment Date:10/24/2024 11:00:00 AM Scheduled Provider: Location:[facility] Appointment Type:FM Medicare Wellness Subsequent Diagnostic Tests Pending * PSA Total 03/09/24 [facility] evaluation + Plan note Future Appointments Appointment Date:01/08/2024 09:00:00 AM Scheduled Provider:Yosef GRIMES MD [facility] Type:URO Office Visit Appointment Date:05/20/2024 12:45:00 PM Scheduled Provider:Yosef RGIMES MD [facility] Type:URO Office Visit Appointment Date:10/24/2024 11:00:00 AM Scheduled Provider: Location:[facility] Appointment Type:FM Medicare Wellness Subsequent [facility] evaluation + Plan note Future Appointments Appointment Date:01/08/2024 09:00:00 AM Scheduled Provider:Yosef GRIMES MD [facility] Appointment Type:URO Office Visit Appointment Date:05/20/2024 12:45:00 PM Scheduled Provider:Yosef GRIMES MD Location:[facility] [place] Appointment Type:URO Office Visit Appointment Date:10/24/2024 11:00:00 AM Scheduled Provider: Location:[facility] Appointment Type: Medicare Wellness Subsequent Diagnostic Tests Pending * Urine Culture 01/01/24 [facility] evaluation + Plan note Future Appointments Appointment Date:01/10/2024 01:00:00 PM Scheduled Provider:Yosef GRIMES MD Location:[facility] [place] Appointment Type:URO Procedure 15 min Appointment Date:05/20/2024 12:45:00 PM Scheduled Provider:Yosef GRIMES MD Location:[facility] Appointment Type:URO Office Visit Appointment Date:10/24/2024 11:00:00 AM Scheduled Provider: Location:[facility] Appointment Type:FM Medicare Wellness Subsequent Diagnostic Tests Pending * Urine Cytology ([facility]) 01/08/24 [facility] evaluation + Plan note Future Appointments Appointment Date:01/10/2024 01:00:00 PM Scheduled Provider:Yosef GRIEMS MD Location:[facility] [place] Appointment Type:URO Procedure 15 min Appointment Date:05/20/2024 12:45:00 PM Scheduled Provider:Yosef GRIMES MD [facility] Appointment Type:URO Office Visit Appointment Date:10/24/2024 11:00:00 AM Scheduled Provider: Location:[facility] Appointment Type:FM Medicare Wellness Subsequent [facility] evaluation + Plan note Future Appointments Appointment Date:01/26/2024 08:45:00 AM Scheduled Provider:Yosef GRIMES MD Location[facility] Appointment Type:URO Office Visit Appointment Date:05/20/2024 12:45:00 PM Scheduled Provider:Yosef GRIMES MD Location:[facility] [place] Appointment Type:URO Office Visit Appointment Date:10/24/2024 11:00:00 AM Scheduled [facility] Medicare Wellness Subsequent [facility] [place] evaluation + Plan note Future Appointments Appointment Date:02/28/2024 08:45:00 AM Scheduled Provider:Yosef GRIMES MD Location:[facility] [place] Appointment Type:URO Office Visit Appointment Date:05/20/2024 12:45:00 PM Scheduled Provider:Yosef GRIMES MD [facility] Appointment Type:URO Office Visit Appointment Date:10/24/2024 11:00:00 AM Scheduled Provider[facility] Type: Medicare Wellness [facility] evaluation + Plan note Future Appointments Appointment Date:03/04/2024 09:30:00 AM Scheduled Provider:Yosef GRIMES MD Location:[facility] [place] Appointment Type:URO Office Visit Appointment Date:05/20/2024 12:45:00 PM Scheduled Provider:Yosef GRIMES MD [facility] Type:URO Office Visit Appointment Date:10/24/2024 11:00:00 AM Scheduled Provider: [facility] Type: Medicare Wellness Subsequent [facility] Evaluation + Plan note Future Appointments Appointment Date:05/20/2024 12:45:00 PM Scheduled Provider:Yosef GRIMES MD [facility] Appointment Type:URO Office Visit Appointment Date:10/24/2024 11:00:00 AM Scheduled Provider: [facility] Type: Medicare Wellness [facility] evaluation note* Diagnosis Monoclonal gammopathy- Primary Monoclonal paraproteinemia Prostate cancer (HCC) Malignant neoplasm of prostate documented in this encounter [facility] note* Diagnosis Monoclonal gammopathy- Primary Monoclonal paraproteinemia documented in this encounter [facility] note* Diagnosis Monoclonal gammopathy- Primary Monoclonal paraproteinemia documented in this encounter [facility] note* Diagnosis Monoclonal gammopathy- Primary Monoclonal paraproteinemia Prostate cancer (HCC) Malignant neoplasm of prostate Essential hypertension Unspecified essential hypertension Chronic renal insufficiency, stage 3 (moderate) (HCC) [facility] noteNo assessment information availableK[facility] Work Phone: Evaluation note* Diagnosis Malignant [...] gammopathy Monoclonal paraproteinemia [facility]* Diagnosis Malignant neoplasm of prostate (HCC)- Primary Malignant neoplasm of prostate [facility]* Diagnosis Monoclonal gammopathy- Primary Monoclonal paraproteinemia Prostate cancer (HCC) Malignant neoplasm of prostate Chronic renal insufficiency, stage 3 (moderate) (HCC) documented in this encounter [facility] general Narrative - Reported* Type Description Date Medical History hypertension Medical History HYPONATREMIA Medical History ACUTE CHRONIC RENAL FAILURE Medical History PLEURISY Surgical History cancer, skin Lip and Hand 1999 Surgical History PROSTATECTOMY Surgical History SKIN LESIONS REMOVED X2 09/2020 Hospitalization History SEE ABOVE Hospitalization History PNEUMONIA AT AGE 7 [place] Other Hospital course Narrative No data available for this section [facility] Discharge instructions No data available for this section [facility] No data available for this section [facility] Summary Purpose Family History No Family History [...] cell carcinoma Procedures CONSULT TO DERMATOLOGY OFFICE/OUTPATIENT [facility] 60-74 MINUTES David Kumari MD [address] [place] [address] [place] [address] Referral ID Status Reason Start Date Expiration Date Visits Requested Visits Authorized [id number] Pending Review PCP Requested Referral 3 12/19/2023 1 1 Specialty Diagnoses / Procedures Referred By Ana leach Referred To Contact Diagnoses Malignant neoplasm of prostate (HCC) Procedures CT SIM PLANNING RADIATION ONCOLOGY THER RAD SIMULAJ-AIDED FIELD SETTING COMPLEX David Kumari MD [address] [place] [address] Referral ID Status Reason Start Date Expiration Date Visits Requested Visits Authorized [id number] Pending Review PCP Requested Referral 12/15/2022 03/08/2023 1 1 Specialty Diagnoses / Procedures Referred By Contac t Referred To Contact MR IMAGING Diagnoses Malignant neoplasm of prostate (HCC) Procedures MRI PROSTATE WO/W IVCON MRI PELVIS W/O & W/CONTRAST MATERIAL David Kumari MD [address] [place] [address] [place] [id number] Referral ID Status Reason Start Date Expiration Date Visits Requested Visits Authorized [id number] Pending Review Auto-Generat ed Referral 3 12/15/2023 1 1 Additional Source Comments Source Comments (unrecognize d section and content) In the event this informatio n is protected by the Federal Confidentiality of Alcohol and Drug Abuse Patient Records regulations: The Federal rules restrict any use of the information to criminally investigate or prosecute any alcohol or drug abuse patient.[facility] Health AdministrationIn the event this information is protected by the Federal Confidentiality of Alcohol and Drug Abuse Patient Records regulations: The Federal rules restrict any use of the information to criminally investigate or prosecute any alcohol or drug abuse patient.[facility] Health AdministrationIn the event this information is protected by the Federal Confidentiality of Alcohol and Drug Abuse Patient Records regulations: The Federal rules restrict any use of the information to criminally investigate or prosecute any alcohol or drug abuse patient.V[facility] Health AdministrationIn the event this information is protected by the Federal Confidentiality of Alcohol and Drug Abuse Patient Records regulations: The Federal rules restrict any use of the information to criminally investigate or prosecute any alcohol or drug abuse patient.[facility] Health AdministrationIn the event this information is protected by the Federal Confidentiality of Alcohol and Drug Abuse Patient Records regulations: The Federal rules restrict any use of the information to criminally investigate or prosecute any alcohol or drug abuse patient.[facility] Health AdministrationIn the event this information is protected by the Federal Confidentiality of Alcohol and Drug Abuse Patient Records regulations: The Federal rules restrict any use of the information to criminally investigate or prosecute any alcohol or drug abuse patient.[facility] Health AdministrationIn the event this information is protected by the Federal Confidentiality of Alcohol and Drug Abuse Patient Records regulations: The Federal rules restrict any use of the information to criminally investigate or prosecute any alcohol or drug abuse patient.[facility] Health AdministrationIn the event this information is protected by the Federal Confidentiality of Alcohol and Drug Abuse Patient Records regulations: The Federal rules restrict any use of the information to criminally investigate or prosecute any alcohol or drug abuse patient.Veter[facility] Health AdministrationIn the event this information is protected by the Federal Confidentiality of Alcohol and Drug Abuse Patient Records regulations: The Federal rules restrict any use of the information to criminally investigate or prosecute any alcohol or drug abuse patient.V[facility] Health AdministrationIn the event this information is protected by the Federal Confidentiality of Alcohol and Drug Abuse Patient Records regulations: The Federal rules restrict any use of the information to criminally investigate or prosecute any alcohol or drug abuse patient.V[facility] Health AdministrationIn the event this information is protected by the Federal Confidentiality of Alcohol and Drug Abuse Patient Records regulations: The Federal rules restrict any use of the information to criminally investigate or prosecute any alcohol or drug abuse patient.V[facility] Health AdministrationIn the event this information is protected by the Federal Confidentiality of Alcohol and Drug Abuse Patient Records regulations: The Federal rules restrict any use of the information to criminally investigate or prosecute any alcohol or drug abuse patient.Veter[facility] Health AdministrationIn the event this information is protected by the Federal Confidentiality of Alcohol and Drug Abuse Patient Records regulations: The Federal rules restrict any use of the information to criminally investigate or prosecute any alcohol or drug abuse patient.[facility] AdministrationIn the event this information is protected by the Federal Confidentiality of Alcohol and Drug Abuse Patient Records regulations: The Federal rules restrict any use of the information to criminally investigate or prosecute any alcohol or drug abuse patient.[facility] AdministrationIn the event this information is protected by the Federal Confidentiality of Alcohol and Drug Abuse Patient Records regulations: The Federal rules restrict any use of the information to criminally investigate or prosecute any alcohol or drug abuse patient.[facility] AdministrationIn the event this information is protected by the Federal Confidentiality of Alcohol and Drug Abuse Patient Records regulations: The Federal rules restrict any use of the information to criminally investigate or prosecute any alcohol or drug abuse patient.[facility] AdministrationIn the event this information is protected by the Federal Confidentiality of Alcohol and Drug Abuse Patient Records regulations: The Federal rules restrict any use of the information to criminally investigate or prosecute any alcohol or drug abuse patient.[facility] AdministrationIn the event this information is protected by the Federal Confidentiality of Alcohol and Drug Abuse Patient Records regulations: The Federal rules restrict any use of the information to criminally investigate or prosecute any alcohol or drug abuse patient.[facility] AdministrationIn the event this information is protected by the Federal Confidentiality of Alcohol and Drug Abuse Patient Records regulations: The Federal rules restrict any use of the information to criminally investigate or prosecute any alcohol or drug abuse patient.[facility] AdministrationIn the event this information is protected by the Federal Confidentiality of Alcohol and Drug Abuse Patient Records regulations: The Federal rules restrict any use of the information to criminally investigate or prosecute any alcohol or drug abuse patient.[facility] AdministrationIn the event this information is protected by the Federal Confidentiality of Alcohol and Drug Abuse Patient Records regulations: The Federal rules restrict any use of the information to criminally investigate or prosecute any alcohol or drug abuse patient.[facility] AdministrationIn the event this information is protected by the Federal Confidentiality of Alcohol and Drug Abuse Patient Records regulations: The Federal rules restrict any use of the information to criminally investigate or prosecute any alcohol or drug abuse patient.[facility] AdministrationIn the event this information is protected by the Federal Confidentiality of Alcohol and Drug Abuse Patient Records regulations: The Federal rules restrict any use of the information to criminally investigate or prosecute any alcohol or drug abuse patient.[facility] AdministrationIn the event this information is protected by the Federal Confidentiality of Alcohol and Drug Abuse Patient Records regulations: The Federal rules restrict any use of the information to criminally investigate or prosecute any alcohol or drug abuse patient.[facility] AdministrationIn the event this information is protected by the Federal Confidentiality of Alcohol and Drug Abuse Patient Records regulations: The Federal rules restrict any use of the information to criminally investigate or prosecute any alcohol or drug abuse patient.[facility] AdministrationIn the event this information is protected by the Federal Confidentiality of Alcohol and Drug Abuse Patient Records regulations: The Federal rules restrict any use of the information to criminally investigate or prosecute any alcohol or drug abuse patient.[facility] AdministrationIn the event this information is protected by the Federal Confidentiality of Alcohol and Drug Abuse Patient Records regulations: The Federal rules restrict any use of the information to criminally investigate or prosecute any alcohol or drug abuse patient.[facility] AdministrationIn the event this information is protected by the Federal Confidentiality of Alcohol and Drug Abuse Patient Records regulations: The Federal rules restrict any use of the information to criminally investigate or prosecute any alcohol or drug abuse patient.[facility] AdministrationIn the event this information is protected by the Federal Confidentiality of Alcohol and Drug Abuse Patient Records regulations: The Federal rules restrict any use of the information to criminally investigate or prosecute any alcohol or drug abuse patient.[facility] AdministrationIn the event this information is protected by the Federal Confidentiality of Alcohol and Drug Abuse Patient Records regulations: The Federal rules restrict any use of the information to criminally investigate or prosecute any alcohol or drug abuse patient.[facility] AdministrationIn the event this information is protected by the Federal Confidentiality of Alcohol and Drug Abuse Patient Records regulations: The Federal rules restrict any use of the information to criminally investigate or prosecute any alcohol or drug abuse patient.[facility] AdministrationIn the event this information is protected by the Federal Confidentiality of Alcohol and Drug Abuse Patient Records regulations: The Federal rules restrict any use of the information to criminally investigate or prosecute any alcohol or drug abuse patient.[facility] AdministrationIn the event this information is protected by [...] or prosecute any alcohol or drug abuse patient.[facility] AdministrationIn the event this information is protected by the Federal Confidentiality of Alcohol and Drug Abuse Patient Records regulations: The Federal rules restrict any use of the information to criminally investigate or prosecute any alcohol or drug abuse patient.[facility] AdministrationIn the event this information is protected by the Federal Confidentiality of Alcohol and Drug Abuse Patient Records regulations: The Federal rules restrict any use of the information to criminally investigate or prosecute any alcohol or drug abuse patient.[facility] AdministrationIn the event this information is protected by the Federal Confidentiality of Alcohol and Drug Abuse Patient Records regulations: The Federal rules restrict any use of the information to criminally investigate or prosecute any alcohol or drug abuse patient.[facility] AdministrationIn the event this information is protected by the Federal Confidentiality of Alcohol and Drug Abuse Patient Records regulations: The Federal rules restrict any use of the information to criminally investigate or prosecute any alcohol or drug abuse patient.[facility] AdministrationIn the event this information is protected by the Federal Confidentiality of Alcohol and Drug Abuse Patient Records regulations: The Federal rules restrict any use of the information to criminally investigate or prosecute any alcohol or drug abuse patient.[facility] AdministrationIn the event this information is protected by the Federal Confidentiality of Alcohol and Drug Abuse Patient Records regulations: The Federal rules restrict any use of the information to criminally investigate or prosecute any alcohol or drug abuse patient.[facility] AdministrationIn the event this information is protected by the Federal Confidentiality of Alcohol and Drug Abuse Patient Records regulations: The Federal rules restrict any use of the information to criminally investigate or prosecute any alcohol or drug abuse patient.[facility] AdministrationIn the event this information is protected by the Federal Confidentiality of Alcohol and Drug Abuse Patient Records regulations: The Federal rules restrict any use of the information to criminally investigate or prosecute any alcohol or drug abuse patient.[facility] AdministrationIn the event this information is protected by the Federal Confidentiality of Alcohol and Drug Abuse Patient Records regulations: The Federal rules restrict any use of the information to criminally investigate or prosecute any alcohol or drug abuse patient.[facility] AdministrationIn the event this information is protected by the Federal Confidentiality of Alcohol and Drug Abuse Patient Records regulations: The Federal rules restrict any use of the information to criminally investigate or prosecute any alcohol or drug abuse patient.[facility] AdministrationIn the event this information is protected by the Federal Confidentiality of Alcohol and Drug Abuse Patient Records regulations: The Federal rules restrict any use of the information to criminally investigate or prosecute any alcohol or drug abuse patient.[facility] Reason for Visit (unrecogniz ed section and [...] W/O & W/CONTRAST MATERIAL David Kumari MD [address] [place] [address] [place] [address] [place] [id number] Referral ID Status Reason Start Date Expiration Date V isits Requested Visits Authorized [id number] Closed Auto-Generate d Referral 11/15/2022 12/15/2023 1 [...] PROSTATE 39FX PLUS SIM David Kumari MD [address] [place] [address] [place] [address] David Kumari MD [address] [place] [address] [place] [address] Referral ID Status Reason Start Date Expiration Date Visits Re quested Visits Authorized [id number] Closed 11/23/2022 06/05/2023 40 40 Reason Comments Prostate Cancer Followup Reason Comments Hematuria Reason Comments Radiology CT Specialty Diagnoses / Procedures [facility] Referred To Contact [facility] CANCER [facility] Diagnoses Prostate cancer (HCC) Procedures IMAGING STUDY ORDERED Yosef Grimes MD [address] [place] [address] [facility] [[email or web address]] Cancer [facility] [address] [place] [address] Referral ID Status Reason Start Date Expiration Date Visits Requested Visits Authorized [id number] Pending Review Patient Cleared - Admin/Chair man/Directo r advise to proceed or did not respond 01/10/2024 07/08/2024 1 1 Reason Comments Radio Gen RMP Care Team (unrecognized sect ion and content) Team Status: Inactive Member Role Status Dates Angelina Holder , PROFESSOR OF BUSINESS-C Attending Provider Active Channel Process Plant Operator Relationship Specialty Start Date End Date Shahriar Stephenson MD [address] [place] [address] PCP - General Family Medicine 11/15/22 Channel Process Plant Operator Relationship Specialty Start Date End Date Shahriar Stephenson MD [address] [place] [address] PCP - General Family Medicine 11/15/22 Channel Process Plant Operator Relationship Specialty Start Date End Date Shahriar Stephenson MD [address] [place], [place] [id number] PCP - General Family Medicine 11/15/22 Channel Process Plant Operator Relationship Specialty Start Date End Date Shahriar Stephenson MD [address] [place] [address] PCP - General Family Medicine 11/15/22 David Kumari MD [address] [place] [address] Physician Radiation Oncology 12/12/22 Elio Payne, CRISTEL.FOLDED TOWEL MACHINE OPERATOR [address] [place] [address] Nurse Practitioner Hematology/Oncology 12/12/22 Nicolas Hwang MD [address] [place] [address] Physician Hematology/Oncology 12/12/22 Nancy Ray, RN [address] [place] [address] Specialty Local Superintendent Hematology/Oncology 12/12/22 Channel Process Plant Operator Relationship Specialty Start Date End Date Shahriar Stephenson MD [address] [place] [address] PCP - General Family Medicine 11/15/22 Channel Process Plant Operator Relationship Specialty Start Date End Date Shahriar Stephenson MD [address] [place] [address] PCP - General Family Medicine 11/15/22 David Kumari MD [address] [place] [address] [place] [address] Physician Radiation Oncology 12/12/22 Elio Payne, CRISTEL.FOLDED TOWEL MACHINE OPERATOR [address] [place] [address] Nurse Practitioner Hematology/Oncology 12/12/22 Nicolas Hwang MD [address] [place] [address] Physician Hematology/Oncology 12/12/22 Nancy Ray, SINDI [address] [place] [address] Specialty Local Superintendent Hematology/Oncology 12/12/22 Channel Process Plant Operator Relationship Specialty Start Date End Date Shahriar Stephenson MD [address] [place] [address] PCP - General Family Medicine 11/15/22 David Kumari MD [address] [place] [address] Physician Radiation Oncology 12/12/22 Elio Payne, FOUNDATION RELATIONS MANAGER.FOLDED TOWEL MACHINE OPERATOR [address] [place] [address] Nurse Practitioner Hematology/Oncology 12/12/22 Nicolas Hwang MD [address] [facility] [place] [address] Physician Hematology/Oncology 12/12/22 Nancy Ray, SINDI [address] [facility] [place] [address] Specialty Local Superintendent Hematology/Oncology 12/12/22 Channel Process Plant Operator Relationship Specialty Start Date End Date Shahriar Stephenson MD [address] [place] [address] PCP - General Family Medicine 11/15/22 David Kumari MD [address] [facility] [place] [address] Physician Radiation Oncology 12/12/22 Elio Payne, FOUNDATION RELATIONS MANAGER.FOLDED TOWEL MACHINE OPERATOR [address] [place] [address] Nurse Practitioner Hematology/Oncology 12/12/22 Nicolas Hwang MD [address] [place] [address] Physician Hematology/Oncology 12/12/22 Nancy Ray, SINDI [address] [place] [address] Specialty Local Superintendent Hematology/Oncology 12/12/22 Channel Process Plant Operator Relationship Specialty Start Date End Date Shahriar Stephenson MD [facility] [place] [address] PCP - General Family Medicine 11/15/22 David Kumari MD [address] [place] [address] [place] [address] Physician Radiation Oncology 12/12/22 Elio Payne, FOUNDATION RELATIONS MANAGER.FOLDED TOWEL MACHINE OPERATOR [address] [place] [address] Nurse Practitioner Hematology/Oncology 12/12/22 Nicolas Hwang MD [address] [place] [address] [place] [address] Physician Hematology/Oncology 12/12/22 Nancy Ray, SINDI [address] [place] [address] Specialty Local Superintendent Hematology/Oncology 12/12/22 Channel Process Plant Operator Relationship Specialty Start Date End Date Shahriar Stephenson MD [facility] [place] [address] PCP - General Family Medicine 11/15/22 David Kumari MD [address] [place] [address] Physician Radiation Oncology 12/12/22 Elio Payne, FOUNDATION RELATIONS MANAGER.FOLDED TOWEL MACHINE OPERATOR [address] [facility] [place] [address] Nurse Practitioner Hematology/Oncology 12/12/22 Nicolas Hwang MD [address] [facility] [place] [address] Physician Hematology/Oncology 12/12/22 Nancy Ray, SINDI [address] [facility] [place] [address] Specialty Local Superintendent Hematology/Oncology 12/12/22 Channel Process Plant Operator Relationship Specialty Start Date End Date Shahriar Stephenson MD [address] [place] [address] PCP - General Family Medicine 11/15/22 David Kumari MD [address] [place] [address] Physician Radiation Oncology 12/12/22 Elio Payne, FOUNDATION RELATIONS MANAGER.FOLDED TOWEL MACHINE OPERATOR [address] [place] [address] Nurse Practitioner Hematology/Oncology 12/12/22 Nicolas Hwang MD [address] [place] [address] Physician Hematology/Oncology 12/12/22 Nancy Ray, SINDI [address] [facility] [place] [address] Specialty Local Superintendent Hematology/Oncology 12/12/22 Channel Process Plant Operator Relationship Specialty Start Date End Date Shahriar Stephenson MD [address] [place] [address] PCP - General Family Medicine 11/15/22 David Kumari MD [address] [place] [address] Physician Radiation Oncology 12/12/22 Elio Payne, FOUNDATION RELATIONS MANAGER.FOLDED TOWEL MACHINE OPERATOR [address] [place] [address] Nurse Practitioner Hematology/Oncology 12/12/22 Nicolas Hwang MD [address] [place] [address] Physician Hematology/Oncology 12/12/22 Nancy Ray, SINDI [address] [place] [address] Specialty Local Superintendent Hematology/Oncology 12/12/22 Channel Process Plant Operator Relationship Specialty Start Date End Date Shahriar Stephenson MD [address] [place] [address] PCP - General Family Medicine 11/15/22 David Kumari MD [address] [place] [address] Physician Radiation Oncology 12/12/22 Elio Payne, FOUNDATION RELATIONS MANAGER.FOLDED TOWEL MACHINE OPERATOR [address] [place] [address] Nurse Practitioner Hematology/Oncology 12/12/22 Nicolas Hwang MD [address] [place] [address] Physician Hematology/Oncology 12/12/22 Nancy Ray, SINDI [address] [place] [address] Specialty Local Superintendent Hematology/Oncology 12/12/22 Channel Process Plant Operator Relationship Specialty Start Date End Date Shahriar Stephenson MD [address] [place] [address] PCP - General Family Medicine 11/15/22 David Kumari MD [address] [facility] [place] [address] Physician Radiation Oncology 12/12/22 Elio Payne, FOUNDATION RELATIONS MANAGER.FOLDED TOWEL MACHINE OPERATOR [address] [facility] [place] [address] Nurse Practitioner Hematology/Oncology 12/12/22 Nicolas Hwang MD [address] [facility] [place] [address] Physician Hematology/Oncology 12/12/22 Nancy Ray, SINDI [address] [facility] [place] [address] Specialty Local Superintendent Hematology/Oncology 12/12/22 Channel Process Plant Operator Relationship Specialty Start Date End Date Shahriar Stephenson MD [address] [place] [address] PCP - General Family Medicine 11/15/22 David Kumari MD [address] [facility] [place] [address] Physician Radiation Oncology 12/12/22 Elio Payne, FOUNDATION RELATIONS MANAGER.FOLDED TOWEL MACHINE OPERATOR [address] [place] [address] Nurse Practitioner Hematology/Oncology 12/12/22 Nicolas Hwang MD [address] [place] [address] Physician Hematology/Oncology 12/12/22 Nancy Ray, SINDI [address] [place] [address] Specialty Local Superintendent Hematology/Oncology 12/12/22 Channel Process Plant Operator Relationship Specialty Start Date End Date Shahriar Stephenson MD [facility] [place] [address] PCP - General Family Medicine 11/15/22 David Kumari MD [address] [place] [address] Physician Radiation Oncology 12/12/22 Elio Payne APRN.FOLDED TOWEL MACHINE OPERATOR [address] [place] [address] Nurse Practitioner Hematology/Oncology 12/12/22 Nicolsa Hwang MD [address] [place] [address] Physician Hematology/Oncology 12/12/22 Nancy Ray, SINDI [address] [place] [address] Specialty Local Superintendent Hematology/Oncology 12/12/22 Channel Process Plant Operator Relationship Specialty Start Date End Date Shahriar Stephenson MD [address] [place] [address] PCP - General Family Medicine 11/15/22 David Kumari MD [address] [place] [address] Physician Radiation Oncology 12/12/22 Elio Payne, FOUNDATION RELATIONS MANAGER.FOLDED TOWEL MACHINE OPERATOR [address] [place] [address] Nurse Practitioner Hematology/Oncology 12/12/22 Nicolas Hwang MD [address] [facility] [place] [address] Physician Hematology/Oncology 12/12/22 Nancy Ray, RN [address] [place] [address] Specialty Local Superintendent Hematology/Oncology 12/12/22 Channel Process Plant Operator Relationship Specialty Start Date End Date Shahriar Stephenson MD [facility] [place] [address] PCP - General Family Medicine 11/15/22 David Kumari MD [address] [place] [address] Physician Radiation Oncology 12/12/22 Elio Payne, FOUNDATION RELATIONS MANAGER.FOLDED TOWEL MACHINE OPERATOR [address] [place] [address] Nurse Practitioner Hematology/Oncology 12/12/22 iNcolas Hwang MD [address] [place] [address] Physician Hematology/Oncology 12/12/22 Nancy Ray, SINDI [address] [place] [address] Specialty Local Superintendent Hematology/Oncology 12/12/22 Channel Process Plant Operator Relationship Specialty Start Date End Date Shahriar Stephenson MD [address] [place] [address] PCP - General Family Medicine 11/15/22 David Kumari MD [address] [facility] [place] [address] Physician Radiation Oncology 12/12/22 Elio Payne, FOUNDATION RELATIONS MANAGER.FOLDED TOWEL MACHINE OPERATOR [address] [facility] [place] [address] Nurse Practitioner Hematology/Oncology 12/12/22 Nicolas Hwang MD [address] [facility] [place] [address] Physician Hematology/Oncology 12/12/22 Nancy Ray, SINDI [address] [facility] [place] [address] Specialty Local Superintendent Hematology/Oncology 12/12/22 Channel Process Plant Operator Relationship Specialty Start Date End Date Shahriar Stephenson MD [address] [place] [address] PCP - General Family Medicine 11/15/22 David Kumari MD [address] [facility] [place] [address] Physician Radiation Oncology 12/12/22 Elio Payne, FOUNDATION RELATIONS MANAGER.FOLDED TOWEL MACHINE OPERATOR [address] [facility] [place] [address] Nurse Practitioner Hematology/Oncology 12/12/22 Nicolas Hwang MD [address] [place] [address] [place] [address] Physician Hematology/Oncology 12/12/22 Nancy Ray, RN [address] [place] [address] Specialty Local Superintendent Hematology/Oncology 12/12/22 Channel Process Plant Operator Relationship Specialty Start Date End Date Shahriar Stephenson MD [address] [place] [address] PCP - General Family Medicine 11/15/22 David Kumari MD [address] [place] [address] [place] [address] Physician Radiation Oncology 12/12/22 Elio Payne APRN.FOLDED TOWEL MACHINE OPERATOR [address] [place] [address] [place] [address] Nurse Practitioner Hematology/Oncology 12/12/22 Nicolas Hwang MD [address] [place] [address] [place] [address] Physician Hematology/Oncology 12/12/22 Nancy Ray, SINDI [address] [place] [address] Specialty Local Superintendent Hematology/Oncology 12/12/22 Channel Process Plant Operator Relationship Specialty Start Date End Date Shahriar Stephenson MD [address] [place], [place] [address] [address] PCP - General Family Medicine 11/15/22 David Kumari MD [address] [place] [address] [place] [address] Physician Radiation Oncology 12/12/22 Elio Pyane, FOUNDATION RELATIONS MANAGER.FOLDED TOWEL MACHINE OPERATOR [address] [place] [address] Nurse Practitioner Hematology/Oncology 12/12/22 Nicolas Hwang MD [address] [facility] [place] [address] Physician Hematology/Oncology 12/12/22 Nancy Ray, SINDI [address] [place] [address] Specialty Local Superintendent Hematology/Oncology 12/12/22 Channel Process Plant Operator Relationship Specialty Start Date End Date Shahriar Stephenson MD [facility] [place] [address] PCP - General Family Medicine 11/15/22 David Kumari MD [address] [place] [address] Physician Radiation Oncology 12/12/22 Elio Payne, FOUNDATION RELATIONS MANAGER.FOLDED TOWEL MACHINE OPERATOR [address] [place] [address] Nurse Practitioner Hematology/Oncology 12/12/22 Nicolas Hwang MD [address] [place] [address] Physician Hematology/Oncology 12/12/22 Nancy Ray, SINDI [address] [place] [address] Specialty Local Superintendent Hematology/Oncology 12/12/22 Channel Process Plant Operator Relationship Specialty Start Date End Date Shahriar Stephenson MD [address] [place] [address] PCP - General Family Medicine 11/15/22 Channel Process Plant Operator Relationship Specialty Start Date End Date Shahriar Stephenson MD [address] [place] [address] PCP - General Family Medicine 11/15/22 David Kumari MD [address] [place] [address] Physician Radiation Oncology 12/12/22 Elio Payne, FOUNDATION RELATIONS MANAGER.FOLDED TOWEL MACHINE OPERATOR [address] [place] [address] Nurse Practitioner Hematology/Oncology 12/12/22 Nicolas Hwang MD [address] [place] [address] Physician Hematology/Oncology 12/12/22 Nancy Ray, SINDI [address] [place] [address] Specialty Local Superintendent Hematology/Oncology 12/12/22 Channel Process Plant Operator Relationship Specialty Start Date End Date Shahriar Stephenson MD [address] [place] [address] PCP - General Family Medicine 11/15/22 David Kumari MD [address] [place] [address] Physician Radiation Oncology 12/12/22 Elio Payne, FOUNDATION RELATIONS MANAGER.FOLDED TOWEL MACHINE OPERATOR [address] [place] [address] Nurse Practitioner Hematology/Oncology 12/12/22 Nicolas Hwang MD [address] [place] [address] [place] [address] Physician Hematology/Oncology 12/12/22 Nancy Ray, RN [address] [place] [address] Specialty Local Superintendent Hematology/Oncology 12/12/22 Team Status: Active Member Role Status Dates NON STAFF Primary Care Provider Active Start: January 13, 2024 Samir Mantilla DO Attending Provider Active Sta rt: January 13, 2024 Team Status: Inactive Member Role Status Dates Yosef Grimes MD Attending Provider Active St art: February 22, 2024 End: February 22, 2024 Channel Process Plant Operator Relationship Specialty Start Date End Date Shahriar Stephenson MD [facility] [address] [place] [id number] PCP - General Family Medicine 11/15/22 David Kumari MD [address] [place] [address] [place] [address] Physician Radiation Oncology 12/12/22 Elio Payne APRN.FOLDED TOWEL MACHINE OPERATOR [address] [place] [address] Nurse Practitioner Hematology/Oncology 12/12/22 Nicolas Hwang MD [address] [place] [address] [place] [address] Physician Hematology/Oncology 12/12/22 Nancy Ray, RN [address] [place] [address] Specialty Local Superintendent Hematology/Oncology 12/12/22 Channel Process Plant Operator Relationship Specialty Start Date End Date Shahriar Stephenson MD [address] [place] [address] PCP - General Family Medicine 11/15/22 David Kumari MD [address] [place] [address] Physician Radiation Oncology 12/12/22 Elio Payne, FOUNDATION RELATIONS MANAGER.FOLDED TOWEL MACHINE OPERATOR [address] [facility] [place] [address] Nurse Practitioner Hematology/Oncology 12/12/22 Nicolas Hwang MD [address] [facility] [place] [address] Physician Hematology/Oncology 12/12/22 Nancy Ray, SINDI [address] [facility] [place] [address] Specialty Local Superintendent Hematology/Oncology 12/12/22 Channel Process Plant Operator Relationship Specialty Start Date End Date Shahriar Stephenson MD [address] [place] [address] PCP - General Family Medicine 11/15/22 David Kumari MD [address] [facility] [place] [address] Physician Radiation Oncology 12/12/22 Elio Payne, FOUNDATION RELATIONS MANAGER.FOLDED TOWEL MACHINE OPERATOR [address] [facility] [place] [address] Nurse Practitioner Hematology/Oncology 12/12/22 Nicolas Hwang MD [address] [facility] [place] [address] Physician Hematology/Oncology 12/12/22 Nancy Ray, RN [address] [place] [address] Specialty Local Superintendent Hematology/Oncology 12/12/22 (unrecognized sect ion and content) No Status Records FoundNo Status Records FoundNo Status Records FoundNo Status Records FoundNo Status Records FoundNo Status Records FoundNo Status Records Found INFORMATION SOURCE (unrecogn ized section and content) DATE CREATED AUTHOR 10/17/2021 [facility] DATE CREATED AUTHOR AUTHOR'S ORGANIZ ATION 01/06/2024 [facility] DATE CREATED AUTHOR AUTHOR'S ORGANIZ ATION 02/29/2024 [facility] DATE CREATED AUTHOR AUTHOR'S ORGANIZ ATION 03/01/2024 [facility] DATE CREATED AUTHOR AUTHOR'S ORGANIZ ATION 03/05/2024 [facility] DATE CREATED AUTHOR AUTHOR'S ORGANIZ ATION 06/12/2024 [facility] DATE CREATED AUTHOR AUTHOR'S ORGANIZ ATION 09/27/2024 [facility] Goals (unrecognized section and [...] BE BASED ON THE PRIMARY CLINICAL RECORDS. [employer] [facility]. provides no warranty or guarantee of the accuracy or completeness of information in this document.
[2024-10-10] MEDS: ACETAMINOPHEN 325 MG TABLET 650 MG PO ×2 (18:20→22:34)
[2024-10-10] MEDS: TAMSULOSIN HCL 0.4 MG CAPSULE PO (20:24)
[2024-10-11] VITALS (12 sets, daily range): BP systolic 98–138; BP diastolic 52–89; PULSE 50–100; TEMP 36.3–37.2; O2SAT 91–97
[2024-10-11] MEDS: KETOROLAC TROMETHAMINE 30 MG/ML VIAL IVP (02:01)
[2024-10-11 05:40] LABS: Hematocrit 34.7 % (42.0-54.0); Hemoglobin 11.4 g/dL (14.0-18.0); Mean Corpuscular HGB Conc 32.9 g/dL (29.9-35.2); Mean Corpuscular Hemoglobin 30.3 pg (25.9-34.0); Mean Corpuscular Volume 92.3 fL (80.0-94.0); Platelet Count 144 10^3/uL (150-450); Red Blood Count 3.76 10^6/uL (4.70-6.10); White Blood Count 6.6 10^3/uL (4.0-11.0)
[2024-10-11 05:45] LABS: Anion Gap 17.3; Blood Urea Nitrogen 33.0 mg/dL (7.0-18.0); Calcium 8.9 mg/dL (8.5-10.1); Carbon Dioxide 25.1 mmol/L (21.0-32.0); Chloride 104 mmol/L (98-107); Estimated GFR (African America 30 (>=60 mL/min/1.73m^2); Estimated GFR (Non-African Ame 24 (>=60 mL/min/1.73m^2); Glucose 114 mg/dL (74-106); Magnesium 2.1 mg/dL (1.8-2.4); Potassium 3.4 mmol/L (3.5-5.1); Sodium 143 mmol/L (136-145)
[2024-10-11 06:02] LABS: Basophils Abs Manual 0.00 10^3/uL (0.00-0.10); Basophils Percent Manual 0.0 % (0.2-2.0); Eosinophils Absolute Manual 0.06 10^3/uL (0.00-0.70); Eosinophils Percent Manual 1.0 % (0.9-7.0); Lymphocytes Absolute Manual 0.52 10^3/uL (1.20-3.80); Lymphocytes Percent Manual 8.0 % (20.5-60.0); Monocytes Absolute Manual 0.92 10^3/uL (0.30-0.80); Monocytes Percent Manual 14.0 % (1.7-12.0); Segmented Neut Absolute Manual 5.08 10^3/uL (1.4-6.5); Segmented Neutrophils % Manual 77.0 (43.0-75.0)
[2024-10-11 06:04] LABS: INR 1.11; Prothrombin Time 11.6 sec (9.0-11.6)
--- NOTE | 2024-10-11 08:35 | CM.NOTE ---
Rounds made with Dr. Portillo, pt will have procedure for kidney stone at 1:00 today, possible discharge to home after procedure.
--- NOTE | 2024-10-11 10:21 | P.IMHP_ITS ---
Internal Medicine - H&P: HPI History of Present Illness Chief complaint: NEPHROLITHIASIS JODIE Narrative: Mr Esparza is a 79-year-old male with a past medical history of A-fib, bladder cancer, prostate cancer and hypertension who presents to the hospital yesterday afternoon for chief complaint of right sided flank and back pain. He was seen in the emergency room, I was contacted and placed basic admission orders and however there was no actual patient interaction until today. This pain been going on for about 4 to 5 days before arrival, he denies having any history of kidney stones for me. Has bladder cancer and prior procedures were reviewed with him, he says the kidney stone is a new problem. He was attempting to control his pain at home with his home TENS unit and said it was doing okay for a while however the pain became unbearable and he subsequently sought treatment yesterday. He denies any blood in his urine. He does state the Toradol is helping him significantly. There were no events overnight noted by the bedside RN. Review of Systems ROS Status of ROS 10 or more systems reviewed and unremark able except as noted in history and below [facility] Medical History Irregular heart beat ?I49.9 - Cardiac arrhythmia, unspecified (ICD-10) Bladder cancer ?C67.9 - Malignant neoplasm of bladder, unspecified (ICD-10) Hematuria ?R31.9 - Hematuria, unspecified (ICD-10) Skin cancer ?C44.90 - Unspecified malignant neoplasm of skin, unspecified (ICD-10) Prostate cancer ?C61 - Malignant neoplasm of prostate (ICD-10) Bronchitis ?J40 - Bronchitis, not specified as acute or chronic (ICD-10) Hypertension ?I10 - Essential (primary) hypertension (ICD-10) Bladder tumor ?D49.4 - Neoplasm of unspecified behavior of bladder (ICD-10) Surgical History H/O transurethral resection of bladder tumor (TURBT) (11/10/22) ?Z98.890 - Other specified postprocedural states (ICD-10) ?Z86.03 - Personal history of neoplasm of uncertain behavior (ICD-10) History of surgical removal of lesion ?Z98.890 - Other specified postprocedural states (ICD-10) ?Z87.2 - Personal history of diseases of the skin and subcutaneous tissue (ICD-10) H/O prostatectomy ?Z90.79 - Acquired absence of other genital organ(s) (ICD-10) History of colonoscopy ?Z98.890 - Other specified postprocedural states (ICD-10) Family History (Updated 11/04/22 @ 09:43 by Peggy Helm NP) Other Family history of cancer Family history of hypertension Myocardial infarct Social History (Updated 11/04/22 @ 09:18 by Peggy Helm NP) Within the past year, how often did you have a drink containing alcohol: never Score interpretation: A score less than 4 is consistent with normal alcohol consumption. Smoking status: Never smoker Previous occupational history: Retired Highest level of school completed/degree received: high school graduate Little interest or pleasure in doing things: not at all Feeling down, depressed, or hopeless: not at all Meds Home Medications and Allergies Home Medications ?Medication ?Instructions ?Recorded ?Confirmed ?Type lisinopril 10 1 tab PO QDAY 11/04/2210/10 History mg-hydrochlorothiazide 12.5 mg tablet abiraterone 250 mg tablet 1,000 mg PO DAILY 01/12/24 0 10/10/24 History leuprolide acetate (6 month) 45 mg 45 mg subcut .q6mon ths 01/12/24 10/10/24 History (6 month) subcutaneous syringe (Eligard) prednisone 5 mg tablet 5 mg PO DAILY 01/12/2410/10 History Allergies Allergy/AdvReac Type Severity Reaction Status Date / Time oxytetracycline (From Allergy swelling Verified 10/10/24 13:29 Terramycin) Penicillins Allergy Rash Verified 10/10/24 13:29 Exam Narrative Exam Narrative: General: Awake and alert, no acute distress HEENT: Normocephalic, atraumatic, no scleral icterus noted Lungs: Clear to auscultation bilaterally Cardiac: Regular rate and rhythm, no murmurs appreciated GI: Soft, tender to palpation in the suprapubic region, this does radiate around to the right side. Very minimal right CVA tenderness. regular bowel sounds. Extremities: Active and passive range of motion intact throughout, no edema Neuro: Cranial nerves II through XII intact, no focal deficits noted Skin: No rashes or lesions, no signs of jaundice Constitutional Vital Signs, click to edit/add: Last Vital Signs Temp 97.8 F 10/11/24 07:42 Pulse 63 10/11/24 07:42 Resp 18 10/11/24 07:42 BP 113/72 10/11/24 07:42 Pulse Ox 91 L 10/11/24 07:42 O2 Del Method Room Air 10/11/24 07:42 O2 Flow Rate 2 10/10/24 13:53 Internal Medicine - H&P: Reslt Labs Labs: Short CBC 10/10/24 10/11/24 Range/Units 13:39 04:44 WBC 9.4 6.6 (4.0-11.0) 10^3/uL Hgb 13.2 L 11.4 L (14.0-18.0) g/dL Hct 39.5 L 34.7 L (42.0-54.0) % Plt Count 165 144 L (150-450) 10^3/uL BMP 10/10/24 10/11/24 13:39 04:44 Sodium 141 143 Potassium 3.3 L 3.4 L Chloride 101 104 Carbon Dioxide 26.5 25.1 BUN 28.0 H 33.0 H Creatinine 2.50 H 2.56 H Glucose 154 H 114 H Calcium 9.7 8.9 Liver Function 10/10/24 Range/Units 13:39 Total Bilirubin 1.3 H (0.2-1.0) mg/dL AST 13 L (15-37) U/L ALT 12 L (16-63) U/L Alkaline Phosphatase 54 (46-116) U/L Albumin 3.7 (3.4-5.0) g/dL Urine 10/10/24 Range/Units 16:20 Urine Color Lt. yellow (YELLOW) Urine Clarity Clear (CLEAR) Urine pH 6.0 (5.0-9.0) Ur Specific [place] 1.025 (1.005-1.025) Urine Protein 100 A (NEG/TRACE) mg/dL Urine Glucose (UA) Negative (NEGATIVE) mg/dL Urinary Catheter Management Urinary Catheter Management Straight: Cath placed during this visit: yes Urethral indwelling: No Insertion date: 10/10/24 Assessment and Plan Assessment and Plan (1) Right nephrolithiasis: Assessment and Plan: ? She was mated to hospital under observation status yesterday afternoon ? He has been n.p.o. since midnight ? Pain control with Tylenol, [place], Dilaudid, and Toradol, it appears the Toradol is working well for him ? I did talk to the nurse this morning to strain his urine however the patient is incontinent ? Urology on consult ? Tentative urological procedure later on today (2) JODIE (acute kidney injury): Assessment and Plan: ? Likely secondary to obstructive process ? His creatinine is 2.5, baseline is 1.8 ? Hold his home lisinopril temporarily ? If the patient is cleared from a urology standpoint, will have outpatient BMP to assure resolution of his JODIE ? If he stays overnight, will order tomorrow morning (3) Bladder cancer: Assessment and Plan: ? Continue his chemotherapy and prednisone (4) Hypertension: Assessment and Plan: Hold lisinopril as mentioned above Plan ? DVT prophylaxis addressed ? N.p.o. pending urology and intervention ? Full code At this point in time his pain is well-controlled, his kidney function improved a little bit overnight with IV fluids, he has a right sided obstructing stone and is on the OR schedule for this afternoon. If he is cleared from a urological standpoint, I will be okay with discharge home with outpatient BMP to be done on Monday morning. Please contact me directly to discuss tentative discharge later on today. If he is not cleared from urology, I will see him tomorrow morning will have morning BMP ordered.
--- NOTE | 2024-10-11 10:22 | SWNOTE1 ---
Medicare Outpatient Observation Notice reviewed and discussed with patient. Pt. verbalized understanding and signed the form. Original given to patient and copy placed in patient?s chart.
--- NOTE | 2024-10-11 10:22 | SWNOTE1 ---
SW met with pt to discuss dc needs. Pt lives at home with his . Pt is independent and does not feel he has any discharge needs at this time. SW to follow as needed.
[2024-10-11] MEDS: CEFAZOLIN SODIUM/DEXTROSE,ISO 2 GM/50 ML PIGGYBACK IV (12:54)
--- NOTE | 2024-10-11 12:59 | P.CN_ITS ---
Consult Note: HPI Data of Consult Patient: known to practice within the last 3 years Requesting Physician: KENN TAVARES DO Primary Care Provider: Non-Staff Physician, Consult Narrative Reason for consult: right obstructing stone with hydro and JODIE Narrative: Mr. Esparza is a 79-year-old male with a past medical history of A-fib and met astatic prostate cancer involving bladder followed by Dr. Douglass who presented to the hospital yesterday afternoon for chief complaint of right sided flank pain radiating to lower abdomen and testicle for about 4 to 5 days. Endorses nausea, poor appetite and chills. Denies fever, dysuria, hematuria or issues voiding. Workup here including CT AP notes a 5 mm right distal ureteral stone (about 5 cm proximal to UO) with moderate hydroureteronephrosis, acute on chronic renal failure with Cr 2.5 from baseline 1.8, UA neg for infection, WBC wnl. Last night Tm 100.6 F, although pt did not feel this. Vitals otherwise stable. Pain currently controlled with toradol. No stone passage seen. No history of kidney stones. cc:: CC: KENN TAVARES DO Review of Systems ROS Status of ROS 10 or more systems reviewed and unremark able except as noted in history and below Constitutional Reports: chills; Denies: fever Ears, nose, mouth, and throat Denies: throat pain or difficulty swallowing Cardiovascular Denies: chest pain or palpitations Respiratory Denies: shortness of breath or cough Gastrointestinal Reports: abdominal pain and nausea; Denies: vomiting Genitourinary Denies: painful urination, urinary frequency, urinary urgency or blood in urine Musculoskeletal Reports: back pain; Denies: neck pain Integumentary/Breast Denies: rash or itching Neurological Denies: headache or weakness in extremities Hematologic/Lymphatic Denies: easy bruising or easy bleeding PFSH [facility] Medical History Irregular heart beat ?I49.9 - Cardiac arrhythmia, unspecified (ICD-10) Bladder cancer ?C67.9 - Malignant neoplasm of bladder, unspecified (ICD-10) Hematuria ?R31.9 - Hematuria, unspecified (ICD-10) Skin cancer ?C44.90 - Unspecified malignant neoplasm of skin, unspecified (ICD-10) Prostate cancer ?C61 - Malignant neoplasm of prostate (ICD-10) Bronchitis ?J40 - Bronchitis, not specified as acute or chronic (ICD-10) Hypertension ?I10 - Essential (primary) hypertension (ICD-10) Bladder tumor ?D49.4 - Neoplasm of unspecified behavior of bladder (ICD-10) Surgical History H/O transurethral resection of bladder tumor (TURBT) (11/10/22) ?Z98.890 - Other specified postprocedural states (ICD-10) ?Z86.03 - Personal history of neoplasm of uncertain behavior (ICD-10) History of surgical removal of lesion ?Z98.890 - Other specified postprocedural states (ICD-10) ?Z87.2 - Personal history of diseases of the skin and subcutaneous tissue (ICD-10) H/O prostatectomy ?Z90.79 - Acquired absence of other genital organ(s) (ICD-10) History of colonoscopy ?Z98.890 - Other specified postprocedural states (ICD-10) Family History Other Family history of cancer Family history of hypertension Myocardial infarct Social History Within the past year, how often did you have a drink containing alcohol: never Score interpretation: A score less than 4 is consistent with normal alcohol consumption. Smoking status: Never smoker Previous occupational history: Retired Highest level of school completed/degree received: high school graduate Little interest or pleasure in doing things: not at all Feeling down, depressed, or hopeless: not at all Meds Home Medications and Allergies Home Medications ?Medication ?Instructions ?Recorded ?Confirmed ?Type lisinopril 10 1 tab PO QDAY 11/04/2210/10 History mg-hydrochlorothiazide 12.5 mg tablet abiraterone 250 mg tablet 1,000 mg PO DAILY 01/12/24 0 10/10/24 History leuprolide acetate (6 month) 45 mg 45 mg subcut .q6mon ths 01/12/24 10/10/24 History (6 month) subcutaneous syringe (Eligard) prednisone 5 mg tablet 5 mg PO DAILY 01/12/2410/10 History Allergies Allergy/AdvReac Type Severity Reaction Status Date / Time oxytetracycline (From Allergy swelling Verified 10/10/24 13:29 Terramycin) Penicillins Allergy Rash Verified 10/10/24 13:29 Exam Narrative Exam Narrative: No acute distress, appears nontoxic Nonlabored respirations, symmetric chest rise, on room air Normal rate and rhythm, no peripheral edema No abd tenderness to palpation, non distended No BL CVA tenderness to palpation, no suprapubic tenderness palpation Moves all extremities, no deformities Alert and oriented x 4, no acute focal deficits Skin dry, intact Appropriate, cooperative Constitutional Vital Signs, click to edit/add: Last Vital Signs Temp 97.8 F 10/11/24 07:42 Pulse 63 10/11/24 07:42 Resp 18 10/11/24 07:42 BP 113/72 10/11/24 07:42 Pulse Ox 91 L 10/11/24 07:42 O2 Del Method Room Air 10/11/24 07:42 O2 Flow Rate 2 10/10/24 13:53 Results Labs Labs: Short CBC 10/10/24 10/11/24 Range/Units 13:39 04:44 WBC 9.4 6.6 (4.0-11.0) 10^3/uL Hgb 13.2 L 11.4 L (14.0-18.0) g/dL Hct 39.5 L 34.7 L (42.0-54.0) % Plt Count 165 144 L (150-450) 10^3/uL BMP 10/10/24 10/11/24 13:39 04:44 Sodium 141 143 Potassium 3.3 L 3.4 L Chloride 101 104 Carbon Dioxide 26.5 25.1 BUN 28.0 H 33.0 H Creatinine 2.50 H 2.56 H Glucose 154 H 114 H Calcium 9.7 8.9 Liver Function 10/10/24 Range/Units 13:39 Total Bilirubin 1.3 H (0.2-1.0) mg/dL AST 13 L (15-37) U/L ALT 12 L (16-63) U/L Alkaline Phosphatase 54 (46-116) U/L Albumin 3.7 (3.4-5.0) g/dL Urine 10/10/24 Range/Units 16:20 Urine Color Lt. yellow (YELLOW) Urine Clarity Clear (CLEAR) Urine pH 6.0 (5.0-9.0) Ur Specific [place] 1.025 (1.005-1.025) Urine Protein 100 A (NEG/TRACE) mg/dL Urine Glucose (UA) Negative (NEGATIVE) mg/dL Imaging CT scan - pelvis: My impression: CT AP reviewed as above Assessment and Plan Assessment and Plan (1) Ureteral stone with hydronephrosis: (2) Acute on chronic kidney failure: Plan 79 year old male as above with a 5 mm right distal ureteral stone, hydronephrosi s, acute on chronic renal failure, and flank pain. Discussed risks/benefits of management options including more urgent intervention of ureteroscopy with laser lithotripsy/stent placement given renal failure and fever. Risks were discussed including but not limited to bleeding, pain, infection, damage to surrounding structures, inability to treat the stone/place a stent, and need for additional procedures. The patient understands the stent is not permanent and needs to be removed or exchanged within 3 months to prevent encrustation, infection, invasive procedures and/or permanent renal damage. - To OR for cystoscopy, right retrograde pyelogram, ureteroscopy with laser lithotrispy, stent placement. -Avoid toradol given acute on CKD
[2024-10-11] MEDS: IOHEXOL 300 MG/ML - 50 ML BTL INJ (13:23)
--- NOTE | 2024-10-11 13:48 | PM.URSON ---
Urology Surgery Operative Note Operative Note Procedure Date: 10/11/24 Time Out Performed: yes Pre-op Diagnosis: 1. Right ureteral stone with hydronephrosis 2. Acute on chronic renal injury Post-op Diagnosis: other (1. Right ureteral stone with hydronephrosis, 2. Acute on chronic renal injury, 3. Right ureteral stricture ) Procedures performed: Cystoscopy, right retrograde pyelogram, right ureteroscopy, attempted ureteral dilation, stent placement Anesthesia: General-ET Primary Surgeon: Ramila Peralta Complications: none Estimated blood loss (mL): 0 Findings: Nonobstructive prostate. Bladder without obvious tumors or lesions. Radiation cystitis changes R RPG- short narrow distal ureter, about 2 cm from UO, potential filling defect proximally, mild hydroureteronephrosis proximally R URS- tight pale firm distal ureteral stricture, unable to bypass with ureteroscope or 8Fr ureteral dilator. Specimens: none Drains: 6FR x 28 cm JJ right ureteral stent Indications for Procedures: 79 year old male with history of CKD, metastatic prostate cancer involving the bladder s/p TURBT and radiation who presents with a 5 mm right distal ureteral stone, hydronephrosis, acute on chronic renal failure, and flank pain. After discussion of risks/benefits, patient elects to proceed with cystoscopy, right retrograde pyelogram, right ureteroscopy with laser lithotripsy, stent placement. Risks previously discussed and documented. Detailed description of Procedure: After informed consent was obtained, the patient was brought to the operating room and transferred onto the operating table in supine position. Sequential compression devices were placed on bilateral lower extremities. The patient received the appropriate dose of preoperative IV antibiotics and general anesthesia ETT was induced. They were positioned in modified dorsolithotomy with the appropriate pressure points padded, prepped, and draped in the usual sterile fashion for this procedure. An operative safety timeout was performed confirming the patient's identity, laterality and procedure, and all present agreed to proceed. I began by inserting a 22 Russian rigid cystoscope with 30 degree lens into the patient's urethra and bladder without difficulty. There were no bladder tumors, lesions, stones or foreign bodies. Findings as above. Bilateral ureteral orifices were orthotopic and patent. I turned my attention to the right ureteral orifice and a 5- Russian open-ended catheter was inserted into the ureteral orifice and dilute contrast was injected for retrograde pyelogram with findings as above. A hybrid wire was inserted into the ureter up to the renal pelvis confirmed on fluoroscopy. Next a semirigid ureteroscope was inserted along the wire, however unable to intubate the UO. The ureteroscope was inserted over the wire able to gently manipulate into the right distal ureter until a tight, pale stricture was met about 2 cm proximally. Unable to navigate through this over the wire. An 8/10fr ureteral dilation was attempted over the wire, however met with resistance and buckling, unable to bypass stricture. Ureteroscopy confirmed persistent stricture. The wire was backloaded through the cystoscope and a6 Fr x 28 cm JJ ureteral stent was advanced over the wire with some resistance, noting adequate curl in the renal pelvis and bladder on fluoroscopic and direct visualization. The bladder was drained and inspected one final time to ensure adequate position of stent and no undue trauma to the bladder was done. The bladder was drained and the cystoscope was removed. The patient tolerated the procedure well without complication. The patient was awakened from anesthesia and sent to PACU in stable condition. Plan: Return to floor. Stable for dc home later today if patient remains stable, afebrile, pain controlled. BMP ordered outpt for f/u per hospitalist. Follow up in 1-2 weeks after passive dilation for right ureteroscopy, possible balloon ureteral dilation, ureteroscopy, laser lithotripsy, stent exchange. Added risks of aggressive ureteral dilation discussed with family including prolonged stent and stricture recurrence. Urinary Catheter Management Urinary Catheter Management Straight: Cath placed during this visit: yes Urethral indwelling: No Insertion date: 10/10/24
--- OUTSIDE RECORDS SUMMARY | 2024-10-11 14:08 | XMS_ITS | CCD ---
Author Organization [facility] Care Team Providers Care Tandem Mill Sticker Name Role Phone Unavailable Primary Care Provider [...] Unavailable CHANEL, DR GURMEET [employer] Unavailable BROOKLYN, DR CHAIM Canales Consult[employer] Unavailable CHANEL, DR [...] Care Provider UnavailShahriar Gordon. Primary Care Physician [phone] Angelina Holder Unavailable CARISSA Holder Attending Provider Shahriar Stephenson MD Primary Care Provider [phone] David Kumari MD Unavailable [phone] Renny BACK TENDER PULP DRIER.EXHIBITS COORDINATOR, Elio Unavailable Nicolas Hwang MD Unavailable Cory DELONG, Nancy Unavailable Shahriar Stephenson MD Primary Care Provider [phone] Unavailable Primary Care Provider UnavailShilpa Mcguire Primary Care Physician [phone] Yosef Grimes MD Attending Provider [phone] Parvez, GRADUATE ADVISOR Shilpa L Attending Unavailable Parvez, GRADUATE ADVISOR Shilpa L Attending Unavailable Parvez, GRADUATE ADVISOR Shilpa L Attending Unavailable GRIMES, Yosef R [...] Fever (finding), Swelling at injection site (disorder) [facility] (4 sources) Penicillins; Translations: [PENICILLINS] Drug Allergy 10-22-19 Rash, Swelling [facility] (4 sources) Penicillin V Drug Allergy 10-10-19 swelling, rash, and hair loss [facility] (3 sources) TERAMYCIN Propensity to adverse reactions Unknown [employer] Other (20 sources) Penicillins Drug Allergy 10-22-19 Rash, Swelling [facility] (20 sources) Penicillin; Translations: [penicillin] Drug Allergy Swelling at injection site (disorder) [facility] (1 source) Oxytetracycline Drug Allergy 12-23-19 [facility] (1 source) Penicillins Drug allergy (disorder) 12-23-19 [facility] (1 source) Oxytetracycline Drug Allergy 10-10-19 [facility] (1 source) Penicillin Drug Allergy 10-10-19 [facility] (4 sources) Penicillins Drug Allergy 10-22-19 Rash, Swelling [facility] Medications Current Medications Medication Drug Class(es) Dates Sig (Normalized) Sig (Original) abiraterone acetate 250 mg oral tablet (20 sources) Cytochrome P450 17A1 Inhibitor Start: 12-08-2022 End: 05-20-2024 take 4 tablets by mouth once daily abiraterone 250 mg tablet Take 4 tablets by mouth once daily. 360 tablet 5 05/21/2024 11:32 AM EDT 05/20/2024 Active Comment on above: Take 4 tablets by mo [facility] once daily. azithromycin 250 mg oral tablet [...] for 90 day(s), 90 tab(s), Refill(s) 3, [facility], 185, cm, 09/27/23 11:20:00 EDT, [...] day(s), # 90 tab(s), Refills(s) 3, Pharmacy: [facility], 190, cm, 11/18/22 11:20:00 EDT, [...] procedure, # 2 tab(s), Refills(s) 0, Pharmacy: [facility], 190, cm, 01/08/24 9:10:00 EST, [...] procedure, # 2 tab(s), Refills(s) 0, Pharmacy: [facility], 190, cm, 10/03/22 13:54:00 EDT, [...] Stephenson MD This Is Your Medications List [facility] Prescription (Eliard) abiraterone (abiraterone 250 [...] ROSARIO, Yosef Bunch Where: [facility] [address] [address] 2025 1:20 PM EDT With: Shilpa Naylor Where: [facility] [address] [address]- Medications What How Much When Instructions Changed hydrochlorothiazide-l isinopril (hydrochlorothiazide- lisinopril 12.5 mg-10 mg Tab) 1 Tablets By Mouth Every day TAKE 1 TABLET BY MOUTH ONCE DAILY Pickup at [facility] Unchanged abiraterone (abiraterone 250 mg oral tablet) 4 Tablets By Mouth Every day Unchanged Misc Prescription (Eliguard) 0 As Directed injection every 6 months Unchanged predniSONE (predniSONE 5 mg Tab) Pharmacy Information [facility]: [address] [place], [place] [address] [phone] Allergies oxytetracycline (Fever, Swelling at injection site) [...] signed up for this yet, please contact [employer] at [phone] to get signed up today. Language Information Language assistance services are available as needed. Normal [facility] Office/Clini c Noteon 09-26-2024 [...] of bladder) followed by Dr. Grimes and [facility]. Has had radiation and is taking abiraterone. [...] TAKE 1 TABLET BY MOUTH ONCE DAILY, [facility], 190, cm, 09/26/24 14:26:00 EDT, [...] Cystoscopy ( (more content not included)... Normal [facility] Comment on above: Result Comment: Electronically [...] specialist: Urologist Dr Heck , Dr Cook Rn Clinical Documentation Specialist, Dr Mack oncologist, pt states he has [...] feel free to contact me at extension [phone]. Thank you! Jazmin Cano, KORY, RN, CCM, CCDS, CCDS-O CDI Home Mission Worker [address] [address] P: [phone] F: [phone] [email or web address] From: Shilpa Naylor To: Jazmin Cano RN; Sent: 09/26/2024 14:54:25 EDT Subject: RE: Pre-Visit Planning Caller Name: ANDREASADOLPH; Caller Number: H I updated with current diagnoses. thank you Normal [facility] Pre-Visit Planning Pre-Visit Planning From: Jazmin [...] feel free to contact me at extension [phone]. Thank you! Jazmin Cano, KORY, RN, CCM, CCDS, CCDS-O CDI Home Mission Worker [address] [address] P: [phone] F: [phone] [email or web address] From: Shilpa Naylor To: Jazmin Cano RN; Sent: 09/26/2024 14:12:23 EDT Subject: RE: Pre-Visit Planning Caller Name: JOHNSADOLPH; Caller Number: H mild pulmonary hypertension Normal [facility] Pre-Visit Planning Pre-Visit Planning From: Jazmin [...] feel free to contact me at extension [phone]. Thank you! Jazmin Cano, KORY, RN, CCM, CCDS CDI Home Mission Worker [facility] [address] [place], [place] [address] P: [phone] F: [phone] [email or web address] From: Shilpa Naylor To: Rachael DELONG, Jazmin; Sent: 09/26/2024 14:11:40 EDT Subject: RE: Pre-Visit Planning Caller Name: ADOLPH JOHNS; Caller Number: H CKD stage 3b Normal [facility] CNOVon 06-04-2024 CNOV Office Visit (RADTSA ) ADOLPH JOHNS ([id number]) 1945 M Date Time Provider Department 06/04/24 [...] DIAGNOSIS: Prostate adenocarcinoma, initial PSA 7.5, biopsy [place] score 4 + 3 = 7 (grade [...] ASSESSMENT/PLAN: Prostate adenocarcinoma, initial PSA 7.5, biopsy [place] score 4 + 3 = 7 (grade [...] by: David Kumari MD cc: Shahriar Stephenson [address] [place] [address] No referring provider defined for this encounter. Referring Provider: NICOLAS HWANG [[id number]] Allergies As of Date: 06/04/2024 Noted Allergy Reaction PENICILLINS 10/22/2019 2 - Rash 7 - Swelling TERAMYCIN (OXYTETRACYCLINE) 10/22/2019 16 - Unknown Date Reviewed: 06/04/2024 Reviewed by: Letty Barahona RN - Fully Assessed Reason for Visit: Prostate Cancer [590] Primary Visit Diagnosis:Malignant neoplasm of prostate (HCC) [C61] Order(s):PROSTATE-SPE CIFIC ANTIGEN DIAGNOSTIC [SQPSA] Order #: [id number] FUTURE Prescriptions as of 06/07/2024 - leuprolide [...] ORAL) (Discontinue (more content not included)... Normal [facility] CNOVSPon 05-20-2024 CNOVSP Visit (SP) Office (HEMASA) JOHNSADOLPH SOTO ([id number]) 1945 M Date Time Provider Department 05/20/24 2:00 PM MINOO GILL During your visit today, we recorded the following information about you: Temperature Pulse Respiration Blood pressure 97.6 degrees 79/minute 16/minute 120/72 Weight 117.9 kg Minoo Gill APRN.EXHIBITS COORDINATOR 05/20/2024 4:04 PM Signed PATIENT NAME: Adolph [...] No difficulties with urination. Has returned from [facility] stable. MEDICATIONS: abiraterone 250 mg tablet [...] or petechiae. PATHOLOGY: 11/10/2022 Bladder tumor, TURBT ([facility]) Metastatic poorly differentiated adenocarcinoma, consistent with [...] TISSUES: * (more content not included)... Normal [facility] Urology Office/Clinic Noteon 05-20-2024 Urology Office/Clinic Note [...] in dark side documents dated 09/27/21 from [facility]). [facility] PET scan 10/[facility]/22 at [facility] [...] [facility] [address], [place] [phone] Additional Instructions: 6 mos (more content not included)... Normal [facility] Comment on above: Result Comment: Electronically Signed By : Yosef GRIMES MD\.br\Date and Time Signed: 05/20/24 08:39 EDT\.br\Electronically Co-Signed By: Odette Cottrell\.br\Date and Time Co-Signed: 05/20/24 08:37 EDT CNPNon 05-16-2024 CNPN Telephone (NCCAP) ADOLPH JOHNS ([id number]) 1945 M Date Time Provider Department 05/16/24 [...] Status:Closed by HOLLY SPIVEY on 05/29/24 Normal [facility] Basic metabolic 2000 panelon 05-15-2024 Anion gap [Moles/Vol] 14 mmol/L Normal 8-15 [facility] Comment on above: Order Comment: Specimen Type: BLOOD SPEC IMENOrdering Facility: [facility] Address: [address] [place] [address] Performed By: #### 2 4321-2 ####[facility] [id number] [place] [address] Calcium [Mass/Vol] 10.2 mg/dL Normal 8.5-10.2 [facility] Comment on above: Order Comment: Specimen Type: BLOOD SPEC IMENOrdering Facility: [facility] Address: [address] [place] [address] Performed By: #### 2 4321-2 ####[facility] [id number] [place] [address] Chloride [Moles/Vol] 103 mmol/L Normal 98-107 [facility] Comment on above: Order Comment: Specimen Type: BLOOD SPEC IMENOrdering Facility: [facility] Address: [address] [place] [address] Performed By: #### 2 4321-2 ####[facility] [id number] [place] [address] CO2 [Moles/Vol] 24 mmol/L Normal 22-30 [facility] Comment on above: Order Comment: Specimen Type: BLOOD SPEC IMENOrdering Facility: [facility] Address: [address] [place] [address] Performed By: #### 2 4321-2 ####[facility] [id number] [place] [address] Creatinine [Mass/Vol] 1.40 mg/dL High 0.73-1.22 [facility] Comment on above: Order Comment: Specimen Type: BLOOD SPEC IMENOrdering Facility: [facility] Address: [address] [place] [address] Performed By: #### 2 4321-2 ####[facility] [id number] [place] [address] Creatinine and Glomerular filtration rate.predicted panel (S/P/Bld) 52 mL/min/1.73m??? Low >=60 [facility] Comment on above: Order Comment: Specimen Type: BLOOD SPEC IMENOrdering Facility: [facility] Address: [address] [place] [address] Result Comment: Paty mated Glomerular Filtration Rate [...] actual GFR. Performed By: #### 2 4321-2 ####[facility] [id number] [place] [address] Glucose [Mass/Vol] 224 mg/dL High 74-99 [facility] Comment on above: Order Comment: Specimen Type: BLOOD SPEC IMENOrdering Facility: [facility] Address: [address] [place] [address] Result Comment: The [place] Diabetes Association (ADA) provides guidance for cutoff [...] Standards of Medical Care in Diabetes 2016, [place] [employer] Association. Diabetes Care. 2016.39(Suppl 1). Performed By: #### 2 4321-2 ####[facility] [id number] [place] [address] Potassium [Moles/Vol] 4.0 mmol/L Normal 3.7-5.1 [facility] Comment on above: Order Comment: Specimen Type: BLOOD SPEC IMENOrdering Facility: [facility] Address: [address] [place] [address] Performed By: #### 2 4321-2 ####[facility] [id number] [place] [address] Sodium [Moles/Vol] 141 mmol/L Normal 136-144 [facility] Comment on above: Order Comment: Specimen Type: BLOOD SPEC IMENOrdering Facility: [facility] Address: [address] [place] [address] Performed By: #### 2 4321-2 ####[facility] [id number] [place] [address] Urea nitrogen [Mass/Vol] 20 mg/dL Normal 9-24 [facility] Comment on above: Order Comment: Specimen Type: BLOOD SPEC IMENOrdering Facility: [facility] Address: [address] [place] [address] Performed By: #### 2 4321-2 ####[facility] [id number] [place] [address] CBC W Auto Differential pane l (Bld)on 05-15-2024 Basophils (Bld) [#/Vol] 0.03 10*3/uL Normal <0.11 [facility] Comment on above: Order Comment: Specimen Type: BLOOD SPEC IMENOrdering Facility: [facility] Address: [address] [place] [address] Performed By: #### 5 7021-8 ####[facility] [id number] [place] [address] Basophils/100 WBC (Bld) 0.3 % Normal [facility] Comment on above: Order Comment: Specimen Type: BLOOD SPEC IMENOrdering Facility: [facility] Address: [address] [place] [address] Performed By: #### 5 7021-8 ####[facility] [id number] [place] [address] Differential cell count method Nom (Bld) Auto Normal [facility] Comment on above: Order Comment: Specimen Type: BLOOD SPEC IMENOrdering Facility: [facility] Address: [address] [place] [address] Performed By: #### 5 7021-8 ####[facility] [id number] [place] [address] Eosinophils (Bld) [#/Vol] 0.07 10*3/uL Normal <0.46 [facility] Comment on above: Order Comment: Specimen Type: BLOOD SPEC IMENOrdering Facility: [facility] Address: [address] [place] [address] Performed By: #### 5 7021-8 ####[facility] [id number] [place] [address] Eosinophils/100 WBC (Bld) 0.8 % Normal [facility] Comment on above: Order Comment: Specimen Type: BLOOD SPEC IMENOrdering Facility: [facility] Address: [address] [place] [address] Performed By: #### 5 7021-8 ####[facility] [id number] [place] [address] Erythrocyte distribution width (RBC) [Ratio] 14.2 % Normal 11.5-15.0 [facility] Comment on above: Order Comment: Specimen Type: BLOOD SPEC IMENOrdering Facility: [facility] Address: [address] [place] [address] Performed By: #### 5 7021-8 ####[facility] [id number] [place] [address] Hematocrit (Bld) [Volume fraction] 39.0 % Normal 39.0-51.0 [facility] Comment on above: Order Comment: Specimen Type: BLOOD SPEC IMENOrdering Facility: [facility] Address: [address] [place] [address] Performed By: #### 5 7021-8 ####[facility] [id number] [place] [address] Hemoglobin (Bld) [Mass/Vol] 12.9 g/dL Low 13.0-17.0 [facility] Comment on above: Order Comment: Specimen Type: BLOOD SPEC IMENOrdering Facility: [facility] Address: [address] [place] [address] Performed By: #### 5 7021-8 ####[facility] [id number] [place] [address] Immature granulocytes (Bld) [#/Vol] 0.13 10*3/uL High <0.10 [facility] Comment on above: Order Comment: Specimen Type: BLOOD SPEC IMENOrdering Facility: [facility] Address: [address] [place] [address] Performed By: #### 5 7021-8 ####[facility] [id number] [place] [address] Immature granulocytes/100 WBC (Bld) 1.5 % Normal [facility] Comment on above: Order Comment: Specimen Type: BLOOD SPEC IMENOrdering Facility: [facility] Address: [address] [place] [address] Performed By: #### 5 7021-8 ####[facility] [id number] [place] [address] Lymphocytes (Bld) [#/Vol] 0.80 10*3/uL Low 1.00-4.00 [facility] Comment on above: Order Comment: Specimen Type: BLOOD SPEC IMENOrdering Facility: [facility] Address: [address] [place] [address] Performed By: #### 5 7021-8 ####[facility] [id number] [place] [address] Lymphocytes/100 WBC (Bld) 9.0 % Normal [facility] Comment on above: Order Comment: Specimen Type: BLOOD SPEC IMENOrdering Facility: [facility] Address: [address] [place] [address] Performed By: #### 5 7021-8 ####[facility] [id number] [place] [address] MCH (RBC) [Entitic mass] 30.6 pg Normal 26.0-34.0 [facility] Comment on above: Order Comment: Specimen Type: BLOOD SPEC IMENOrdering Facility: [facility] Address: [address] [place] [address] Performed By: #### 5 7021-8 ####[facility] [id number] [place] [address] MCHC (RBC) [Mass/Vol] 33.1 g/dL Normal 30.5-36.0 [facility] Comment on above: Order Comment: Specimen Type: BLOOD SPEC IMENOrdering Facility: [facility] Address: [address] [place] [address] Performed By: #### 5 7021-8 ####[facility] [id number] [place] [address] MCV (RBC) [Entitic vol] 92.4 fL Normal 80.0-100.0 [facility] Comment on above: Order Comment: Specimen Type: BLOOD SPEC IMENOrdering Facility: [facility] Address: [address] [place] [address] Performed By: #### 5 7021-8 ####[facility] [id number] [place] [address] Monocytes (Bld) [#/Vol] 0.61 10*3/uL Normal <0.87 [facility] Comment on above: Order Comment: Specimen Type: BLOOD SPEC IMENOrdering Facility: [facility] Address: [address] [place] [address] Performed By: #### 5 7021-8 ####[facility] [id number] [place] [address] Monocytes/100 WBC (Bld) 6.9 % Normal [facility] Comment on above: Order Comment: Specimen Type: BLOOD SPEC IMENOrdering Facility: [facility] Address: [address] [place] [address] Performed By: #### 5 7021-8 ####[facility] [id number] [place] [address] Neutrophils (Bld) [#/Vol] 7.20 10*3/uL Normal 1.45-7.50 [facility] Comment on above: Order Comment: Specimen Type: BLOOD SPEC IMENOrdering Facility: [facility] Address: [address] [place] [address] Performed By: #### 5 7021-8 ####[facility] [id number] [place] [address] Neutrophils/100 WBC (Bld) 81.5 % Normal [facility] Comment on above: Order Comment: Specimen Type: BLOOD SPEC IMENOrdering Facility: [facility] Address: [address] [place] [address] Performed By: #### 5 7021-8 ####[facility] [id number] [place] [address] Nucleated RBC (Bld) [#/Vol] 10*3/uL Normal <0.01 [facility] Comment on above: Order Comment: Specimen Type: BLOOD SPEC IMENOrdering Facility: [facility] Address: [address] [place] [address] Performed By: #### 5 7021-8 ####[facility] [id number] [place] [address] Nucleated RBC/100 WBC (Bld) [Ratio] 0.0 /100 WBC Normal [facility] Comment on above: Order Comment: Specimen Type: BLOOD SPEC IMENOrdering Facility: [facility] Address: [address] [place] [address] Performed By: #### 5 7021-8 ####[facility] [id number] [place] [address] Platelet mean volume (Bld) [Entitic vol] 9.9 fL Normal 9.0-12.7 [facility] Comment on above: Order Comment: Specimen Type: BLOOD SPEC IMENOrdering Facility: [facility] Address: [address] [place] [address] Performed By: #### 5 7021-8 ####[facility] [id number] [place] [address] Platelets (Bld) [#/Vol] 160 10*3/uL Normal 150-400 [facility] Comment on above: Order Comment: Specimen Type: BLOOD SPEC IMENOrdering Facility: [facility] Address: [address] [place] [address] Performed By: #### 5 7021-8 ####[facility] [id number] [place] [address] RBC (Bld) [#/Vol] 4.22 10*6/uL Normal 4.20-6.00 [facility] Comment on above: Order Comment: Specimen Type: BLOOD SPEC IMENOrdering Facility: [facility] Address: [address] [place] [address] Performed By: #### 5 7021-8 ####[facility] [id number] [place] [address] WBC (Bld) [#/Vol] 8.84 10*3/uL Normal 3.70-11.00 [facility] Comment on above: Order Comment: Specimen Type: BLOOD SPEC IMENOrdering Facility: [facility] Address: [address] [place] [address] Performed By: #### 5 7021-8 ####[facility] [id number] [place] [address] IMMUNOFIXATION SCREEN, SERUM on 05-15-2024 INTERPRETATION (MPA) Atypical restricted bands are present in the IgG and lambda regions. Consistent with IgG lambda monoclonal gammopathy. Normal [facility] Comment on above: Order Comment: Specimen Type: BLOOD SPEC IMENOrdering Facility: [facility] Address: [address] [place] [address] Performed By: #### I FES ####[facility] LABIA [id number] [place] [address] [place] MPA RESULT M protein is present. Abnormal No M p rotein is identified. [facility] Comment on above: Order Comment: Specimen Type: BLOOD SPEC IMENOrdering Facility: [facility] Address: [address] [place] [address] Performed By: #### I FES ####[facility] LABIA [id number] [place] [address] [place] STAFF REVIEW ([facility]) Reviewed by Gonzalo Haro MD, Ph.D ([id number]) Normal [facility] Comment on above: Order Comment: Specimen Type: BLOOD SPEC IMENOrdering Facility: [facility] Address: [address] [place] [address] Performed By: #### I FESC ####[facility] LABIA [id number] [place] [address] [place] IMMUNOGLOBULINS,IGG,IGA,IGMo n 05-15-2024 IgA [Mass/Vol] 50 mg/dL Low 70-400 [facility] Comment on above: Order Comment: Specimen Type: BLOOD SPEC IMENOrdering Facility: [facility] [facility] Address: [address] [place] [address] Performed By: #### S ERIMM ####[facility] LABIA [id number] [place] [address] [place] IgG [Mass/Vol] 1119 mg/dL Normal 700-1600 [facility] Comment on above: Order Comment: Specimen Type: BLOOD SPEC IMENOrdering Facility: [facility] Address: [address] [place] [address] Performed By: #### S ERIMM ####[facility] LABCLIA [id number] [place] [address] [place] IgM [Mass/Vol] 69 mg/dL Normal 40-230 [facility] Comment on above: Order Comment: Specimen Type: BLOOD SPEC IMENOrdering Facility: [facility] Address: [address] [place] [address] Performed By: #### S ERIMM ####[facility] LABCLIA [id number] [place] [address] [place] KAPPA/LIM,FREE,SERon 2024 Immunoglobulin light chains.kappa.zaida e (S) [Mass/Vol] 23.6 mg/L High 3.3-19.4 [facility] Comment on above: Order Comment: Specimen Type: BLOOD SPEC IMENOrdering Facility: [facility] Address: [address] [place] [address] Result Comment: Rare ly, increased serum free light chains levels may not be detected or accurately quantified due to prozone phenomenon or in high viscosity samples using this immunoturbidimetric assay. Correlation with other laboratory results and clinical findings is recommended. The [place] Free Light Chain was performed using the Binding Site Optilite immunoturbidimetric method. Result obtained with different assay methods or kits cannot be used interchangeably. Performed By: #### K LFRS ####[facility] LABCLIA [id number] [place] [address] [place] Immunoglobulin light chains.kappa/Imm unoglobulin light chains.lambda (S) [Mass ratio] 1.34 Normal 0.26-1.65 [facility] Comment on above: Order Comment: Specimen Type: BLOOD SPEC IMENOrdering Facility: [facility] Address: [address] [place] [address] Performed By: #### K LFRS ####[facility] LABIA [id number] [place] [address] [place] Immunoglobulin light chains.lambda.fr ee [Mass/Vol] 17.6 mg/L Normal 5.7-26.3 [facility] Comment on above: Order Comment: Specimen Type: BLOOD SPEC IMENOrdering Facility: [facility] Address: [address] [place] [address] Result Comment: Rare ly, increased serum free [...] used interchangeably. Performed By: #### K LFRS ####[facility] [id number] [place] [address] [place] PROTEIN ELECTROPHORESIS SERU M WITH FAUSTINA (P)on 05-15-2024 Albumin [Mass/Vol] 3.99 g/dL Normal 3.43-5.41 [facility] Comment on above: Order Comment: Specimen Type: BLOOD SPEC IMENOrdering Facility: [facility] Address: [address] [place] [address] Performed By: #### L [id number] ####[facility] LABIA [id number] [place] [address] [place] Alpha 1 globulin Elph [Mass/Vol] 0.31 g/dL Normal 0.18-0.43 [facility] Comment on above: Order Comment: Specimen Type: BLOOD SPEC IMENOrdering Facility: [facility] Address: [address] [place] [address] Performed By: #### L [id number] ####[facility] LABCLIA [id number] [address] [place] Alpha 2 globulin Elph [Mass/Vol] 0.81 g/dL Normal 0.42-0.98 [facility] Comment on above: Order Comment: Specimen Type: BLOOD SPEC IMENOrdering Facility: [facility] Address: [address] [place] [address] Performed By: #### L [id number] ####[facility] LABIA [id number] [address] [place] Beta globulin Elph [Mass/Vol] 0.76 g/dL Normal 0.61-1.17 [facility] Comment on above: Order Comment: Specimen Type: BLOOD SPEC IMENOrdering Facility: [facility] [place] Address: [address] [place] [address] Performed By: #### L [id number] ####[facility] LABIA [id number] [address] [place] COMMENT (SERUM PROT ELECTRO) Monoclonal Protein analysis (immunofixation) is not indicated. Normal [facility] Comment on above: Order Comment: Specimen Type: BLOOD SPEC IMENOrdering Facility: [facility] [place] Address: [address] [place] [address] Performed By: #### L [id number] ####[facility] LABIA [id number] [place] [address] [place] Gamma globulin Elph [Mass/Vol] 1.03 g/dL Normal 0.53-1.51 [facility] Comment on above: Order Comment: Specimen Type: BLOOD SPEC IMENOrdering Facility: [facility] Address: [address] [place] [address] Performed By: #### L [id number] ####[facility] LABCLIA [id number] [place] [id number] [place] INTERPRETATION COMMENT FOR PROTEIN ELECTROPHORESIS See separate immunofixation report for characterization of monoclonal gammopathy. Normal [facility] Comment on above: Order Comment: Specimen Type: BLOOD SPEC IMENOrdering Facility: [facility] Address: [address] [place] [address] Performed By: #### L [id number] ####[facility] LABIA [id number] [place] [id number] [place] M-PROTEIN LOCATION Gamma Fraction 1 Normal [facility] Comment on above: Order Comment: Specimen Type: BLOOD SPEC IMENOrdering Facility: [facility] [place] Address: [address] [place] [address] Performed By: #### L [id number] ####[facility] LABIA [id number] [place] [address] [place] Protein Fractions [Interp] An M protein is identified on protein electrophoresis. Abnormal No definitive M protein is identified on protein electrophoresis. [facility] Comment on above: Order Comment: Specimen Type: BLOOD SPEC IMENOrdering Facility: [facility] [place] Address: [address] [place] [address] Performed By: #### L [id number] ####[facility] LABIA [id number] [place] [address] [place] Protein.monoclon al Elph [Mass/Vol] 0.78 g/dL High <=0.00 [facility] Comment on above: Order Comment: Specimen Type: BLOOD SPEC IMENOrdering Facility: [facility] Address: [address] [place] [address] Performed By: #### L [id number] ####[facility] LABIA [id number] [place] [id number] [place] SPE STAFF REVIEW Reviewed by Gonzalo Haro MD, Ph.D ([id number]) Normal [facility] Comment on above: Order Comment: Specimen Type: BLOOD SPEC IMENOrdering Facility: [facility] Address: [address] [place] [address] Performed By: #### L [id number] ####[facility] LABCLIA [id number] [place] [id number] [place] Prot SerPl-mCncon 05-15-2024 Protein [Mass/Vol] 6.9 g/dL Normal 6.3-8.0 [facility] Comment on above: Order Comment: Specimen Type: BLOOD SPEC IMENOrdering Facility: [facility] Address: [address] [place] [address] Performed By: #### 2 885-2 ####[facility] LABIA [id number] [place] [id number] [place] PSA SerPl-mCncon 05-07-2024 Prostate specific Ag [Mass/Vol] ng/mL Normal <2.60 [facility] Comment on above: Order Comment: Specimen Type: BLOOD SPEC IMENOrdering Facility: [facility] [place] Address: [address] [place] [address] Result Comment: Tota l PSA test methodology used is the Electrochemiluminescence Immunoassay by [employer]. Total PSA values by differing methodologies cannot be interchanged. Performed By: #### 2 857-1 ####[facility] LABIA [id number] [place] [id number] [place] XR ABDOMEN 1V [...] any questions regarding this interpretation, please call [phone]. If you are unable to reach us at the number above, please feel free to contact [facility] eRadiology at [phone]. [id number] Normal [facility] Urology Office/Clinic Noteon 03-04-2024 Urology Office/Clinic Note [...] in dark side documents dated 09/27/21 from [facility]). PSMA PET scan 10/28/22 at [facility] - Neg for mets; approx 1.5cm [...] With When Contact Information Yosef GRIMES MD, [facility] [address], [place] [address]- [phone] Additional Instructions: Has f/u 05/20/24 w/ PSA and Eligard and KUB, also to schedule cysto Patient Education Cystosc (more content not included)... Normal [facility] Comment on above: Result Comment: Electronically Signed By : Yosef GRIMES MD\.br\Date and Time Signed: 03/04/24 10:56 EST\.br\Electronically Co-Signed By: Odette Cottrell\.br\Date and Time Co-Signed: 03/04/24 10:55 EST James 02-22-2024 L - -------- Specimen: [id number] Received: 02/23/24-1220 Status: COLE Kay Num: [id number] Spec Type: Surgical Subm Dr: Yosef Grimes MD Tissues: A Urinary Bladder - TUR (BLADDER LESION) Procedures: HE/3, Gross/Micro L5, AE1-AE3, CK20, P53 -------- Age/ Patient Sex Location Account Attending Physician -------- Adolph Johns 78/M LABELL [id number] Yosef Grimes MD -------- SPEC NUM: [id number] RECD: 02/23/24 STATUS: COLE KAY NUM: [id number] JOSE ANGEL: 02/22/[address] [facility] [address]: Yosef Grimes MD ENTERED: 02/23/[address]: William Peterson SPEC TYPE: Surgical DEPT: LUCY SAUL ENTERED BY: [id number] RECV BY: [id number] ORDERED: HE/3, Gross/Micro L5, AE1-AE3, CK20, P53 [...] [id number] Received: 02/23/24-1220 Status: COLE Kay Num: [id number] Spec Type: Surgical Subm Dr: Yosef Grimes MD Tissues: A Urinary Bladder - TUR (BLADDER LESION) Procedures: HE/3, Gross/Micro L5, AE1-AE3, CK20, P53 -------- Patient: Adolph Johns [id number] (Continued) -------- Specimen: [id number] Received: 02/23/24 (Continued) Pathological Diagnosis (Continued) Signed (signature on file) Bertha Kline MD 02/27/241651 -------- Specimen: [id number] Received: 02/23/24 Status: COLE Sharita Num: [id number] Spec Type: Surgical Subm Dr: Yosef Grimes MD Tissues: A Urinary Bladder - TUR (BLADDER LESION) Procedures: HE/3, Gross/Micro L5, AE1-AE3, CK20, P53 -------- Patient: Adolph Johns [id number] (Continued) -------- Specimen: [id number] Received: 02/23/24-1220 (Continued) [...] urothelial layer in all fragments also show envelope adjuster or adequate streaming maturation -AE1/3 IHC did [...] performed supporting the above interpretation CPT Codes 95427 99931 (more content not included)... Normal [facility] Heart and Vascular Office/Cl inic [...] Not Given Parent Or Guardian Refuses Normal [facility] Comment on above: Result Comment: Electronically Signed By : Bob ROSARIO, Meño\.br\Date and Time Signed: 01/23/24 13:[address] UROGRAM WO/W IVCONon 12- CT UROGRAM WO/W IVCON * * *Final Report* * * DATE OF EXAM: Jan 19 2024 9:37AM [facility] 0560 - CT UROGRAM WO/W [...] Linear band of scarring right lower lobe. Outdoor Education Teacher (topogram) images: Unremarkable. IMPRESSION: Decreased size of [...] any questions regarding this interpretation, please call [phone]. If you are unable to reach us at the number above, please feel free to contact [facility] eRadiology at [phone]. [id number] N Normal [facility] Urine Cytology ([facility])on 03-17-2023 Microscopic exam Cytology (U) [Interp] Diagnosis Info Invalid Interpretation Code [facility] Comment on above: Result Comment: A:Urine,Urine:Voided Interpretation - Adequate cellularity for evaluation. CPT 40719 MicroScopic Description - Adequacy - Gross Description Site ID:A color Yellow fixative Alcohol Specimen designated Urine received in alcohol preservative and labeled with the patient???s name, consists of 50ml clear yellow fluid. Electronically signed by : on: 01/15/2024 13:14:46 Performed By: #### 1 [id number] ####[facility] [address] [place] [address] Ambulatory Visit Summaryon 1 03-12-2023 Ambulatory Visit [...] Yosef GRIMES MD Where: [facility] of [address] [address]- 2024 11:00 AM EDT With: Where: [facility] [address] [address]- You Need to Schedule the Following Appointments Follow Up with Yosef GRIMES MD, URL When: Where: [facility] [address] [place] [address]- Medications What How Much When Instructions Unchanged [...] these instructions at home: Medicines ??? Take meaz-wej-esbfucl and prescription medicines only as told by your health care provider. ??? If you were prescribed an antibiotic medicine, take it as told by your health care provider. Do not stop taking the antibiotic even if you start to feel better. ??? (more content not included)... Normal [facility] Urology Office/Clinic Noteon 01-10-2024 Urology Office/Clinic [...] in dark side documents dated 09/27/21 from [facility]). PSMA PET scan 10/28/22 at [facility] - Neg for mets; approx 1.5cm [...] [facility] (more content not included)... Normal [facility] Comment on above: Result Comment: Electronically [...] Yosef GRIMES MD Where: [facility] [address] [place] [address]- Monday 12:45 PM EDT With: Yosef GRIMES MD Where: [facility] [address] [place] [address]- 2024 11:00 AM EDT With: Where: [facility] [address] [address]- You Need to Schedule the Following Appointments Follow Up with Yosef GRIMES MD, URL When: Where: [facility] [address], [place] [phone] Medications What How Much When Instructions New ciprofloxacin (Cipro 500 mg Tab) 1 Tablets By Mouth Every day take one tab day before procedure and one tab after procedure Pickup at [facility] 1421 Unchanged abiraterone (abiraterone 250 mg oral tablet) [...] physician if questions or concerns Pharmacy Information [facility]29: [address] [place], [place] [id number] [phone] Allergies oxytetracycline (Fever, Swelling at injection site) [...] microscope (biopsy (more content not included)... Normal [facility] Urine Cytology ([facility])on 03-10-2023 Method of Extraction Voided Normal [facility] Comment on above: Performed By: #### [id number] ####[facility] [address] [place] [address] Number of Jars 1 Invalid Interpretation Code [facility] Comment on above: Performed By: #### [id number] ####[facility] [address] [place] [address] Specimen Urine Normal [facility] Comment on above: Performed By: #### [id number] ####[facility] [address] [place] [address] Type of Service Technical Only Normal [facility] Comment on above: Performed By: #### [id number] ####[facility] [address] [facility] [place] [address] Urology Office/Clinic Noteon 01-08-2024 Urology Office/Clinic Note [...] negative margins. PSMA PET scan 10/28/22 at [facility] - neg for mets; approx 1.5cm [...] URL [facility] [address] [place] [phone] Additional Instructions: sched cysto Patient Education Cystoscopy Hematuria, Adult I, Odette Cottrell, personally scribed for Dr. Grimes on 01/08/2024 10:14:36. . Documentation recorded by the Odette casas (more content not included)... Normal [facility] Comment on above: Result Comment: Electronically [...] was performed at: [facility], [address] [place] [address], [address] , [place], Normal [facility] Comment on above: Performed By: #### [id number] #### [facility] [address] [place] [address] Ambulatory Visit Summaryon 1 03-02-2023 Ambulatory Visit [...] Yosef GRIMES MD Where: [facility] [address] [place] [address]- Monday 12:45 PM EDT With: Yosef GRIMES MD Where: [facility] [address] [place] [address] 2024 11:00 AM EDT With: Where: [address] [address] Medications What How Much When Instructions Unchanged [...] for choosing us for your care. Normal [facility] Jameson 12-29-2023 NORBERTO Telephone (RADTSA) ADOLPH JOHNS ([id number]) 1945 M Date Time Provider Department 12/29/23 [...] Encounter Status:Closed by PEGGY LAKHANI on 01/01/24 [facility] Ambulatory Visit Summaryon 1 Ambulatory Visit Summary Ambulatory Visit Summary ADOLPH JOHNS :1945 Visit Date:11/24/2023 Ambulatory Visit Instructions Your Diagnosis Prostate cancer Bladder tumor Your Care Team Attending Physician - Yosef GRIMES MD Primary Care Physician - Shilpa Naylro This Is Your Medications List Contact prescribing [...] Yosef GRIMES MD Where: [facility] [address] [place] [address] 2024 11:00 AM EDT With: Where: [facility] [address] [address]- You Need to Schedule the Following Appointments Follow Up with Yosef GRIMES MD, URL When: Where: [address] [place] [address]- Medications What How Much When Instructions Unchanged [...] diagnosed? Th (more content not included)... Normal [facility] Urology Office/Clinic Noteon 11-24-2023 Urology Office/Clinic [...] negative margins. PSMA PET scan 10/28/22 at [facility] - neg for mets; approx 1.5cm [...] Information CORNELIO ROSARIO, Yosef Bunch, URL [address] [place] [address]- Additional Instructions: 6 mos w/ PSA & [...] biopsy of (more content not included)... Normal [facility] Comment on above: Result Comment: Electronically Signed By : Yosef GRIMES MD\.br\Date and Time Signed: 11/24/23 12:43 EDT\.br\Electronically Co-Signed By: Esme Noonan\.br\Date and Time Co-Signed: 11/24/23 12:36 EDT Basic metabolic 2000 panelOr dered By: Holly Díaz on 11-16-2023 Anion gap [Moles/Vol] 13 mmol/L 8 - 15 mmol/L [facility] Calcium [Mass/Vol] 10.3 mg/dL High 8.5 - 10.2 mg/dL [facility] Chloride [Moles/Vol] 102 mmol/L 98 - 107 mmol/L [facility] CO2 [Moles/Vol] 23 mmol/L 22 - 30 mmol/L [facility] Creatinine [Mass/Vol] 1.35 mg/dL High 0.73 - 1.22 mg/dL [facility] GFR/1.73 sq M.predicted among non-blacks MDRD (S/P/Bld) [Vol rate/Area] 54 mL/min/{1.73_m2} Low - PINF [facility] Comment on above: Estimated Glomerular Filtration [...] 276 mg/dL High 74 - 99 mg/dL [facility] Comment on above: The [place] Diabetes Association (ADA) provides guidance for cutoff [...] Standards of Medical Care in Diabetes 2016, [place] [employer]. Diabetes Care. 2016.39(Suppl 1). Interpretation and review of laboratory results Abnormal [facility] Potassium [Moles/Vol] 4.0 mmol/L 3.7 - 5.1 mmol/L [facility] Sodium [Moles/Vol] 138 mmol/L 136 - 144 mmol/L [facility] Urea nitrogen [Mass/Vol] 22 mg/dL 9 - 24 mg/dL [facility] Basic metabolic 2000 panelon 11-16-2023 Anion gap [Moles/Vol] 13 mmol/L Normal 8-15 [facility] Comment on above: Order Comment: Specimen Type: BLOOD SPEC IMENOrdering Facility: [facility] Address: [address] [place] [place] [id number] Performed By: #### 2 4321-2 ####[facility] LABCLIA [id number] [place] [address] Calcium [Mass/Vol] 10.3 mg/dL High 8.5-10.2 [facility] Comment on above: Order Comment: Specimen Type: BLOOD SPEC IMENOrdering Facility: [facility] Address: [address] [place] [address] Performed By: #### 2 4321-2 ####[facility] LABCLIA [id number] [place] [address] Chloride [Moles/Vol] 102 mmol/L Normal 98-107 [facility] Comment on above: Order Comment: Specimen Type: BLOOD SPEC IMENOrdering Facility: [facility] [place] Address: [address] [place] [address] Performed By: #### 2 4321-2 ####[facility] LABCLIA [id number] [place] [address] CO2 [Moles/Vol] 23 mmol/L Normal 22-30 [facility] Comment on above: Order Comment: Specimen Type: BLOOD SPEC IMENOrdering Facility: [facility] [place] Address: [address] [place] [address] Performed By: #### 2 4321-2 ####[facility] LABCLIA [id number] [place] [address] Creatinine [Mass/Vol] 1.35 mg/dL High 0.73-1.22 [facility] Comment on above: Order Comment: Specimen Type: BLOOD SPEC IMENOrdering Facility: [facility] Address: [address] [place] [address] Performed By: #### 2 4321-2 ####[facility] LABCLIA [id number] [place] [address] Creatinine and Glomerular filtration rate.predicted panel (S/P/Bld) 54 mL/min/1.73m??? Low >=60 [facility] Comment on above: Order Comment: Specimen Type: BLOOD SPEC IMENOrdering Facility: [facility] Address: [address] [place] [address] Result Comment: Paty mated Glomerular Filtration Rate [...] actual GFR. Performed By: #### 2 4321-2 ####[facility] LABCLIA [id number] [place] [address] Glucose [Mass/Vol] 276 mg/dL High 74-99 [facility] Comment on above: Order Comment: Specimen Type: BLOOD SPEC IMENOrdering Facility: [facility] [place] Address: [address] [place] [address] Result Comment: The [place] Diabetes Association (ADA) provides guidance for cutoff [...] Standards of Medical Care in Diabetes 2016, [place] [employer]. Diabetes Care. 2016.39(Suppl 1). Performed By: #### 2 4321-2 ####[facility] LABCLIA [id number] [place] [address] Potassium [Moles/Vol] 4.0 mmol/L Normal 3.7-5.1 [facility] Comment on above: Order Comment: Specimen Type: BLOOD SPEC IMENOrdering Facility: [facility] [place] Address: [address] [place] [address] Performed By: #### 2 4321-2 ####[facility] LABCLIA [id number] [place] [address] Sodium [Moles/Vol] 138 mmol/L Normal 136-144 [facility] Comment on above: Order Comment: Specimen Type: BLOOD SPEC IMENOrdering Facility: [facility] [place] Address: [address] [place] [address] Performed By: #### 2 4321-2 ####[facility]CLIA [id number] [place] [address] Urea nitrogen [Mass/Vol] 22 mg/dL Normal 9-24 [facility] Comment on above: Order Comment: Specimen Type: BLOOD SPEC IMENOrdering Facility: [facility] [place] Address: [address] [place] [address] Performed By: #### 2 4321-2 ####[facility] LABCLIA [id number] [place] [address] CBC W Auto Differential pane l (Bld)on 11-16-2023 Basophils (Bld) [#/Vol] 0.03 10*3/uL [facility] Basophils/100 WBC (Bld) 0.4 % [facility] Differential cell count method Nom (Bld) Auto [facility] Eosinophils (Bld) [#/Vol] 0.08 10*3/uL [facility] Eosinophils/100 WBC (Bld) 1.0 % [facility] Erythrocyte distribution width (RBC) [Ratio] 14.6 % 11.5 - 15.0 % [facility] Hematocrit (Bld) [Volume fraction] 40.6 % 39.0 - 51.0 % [facility] Hemoglobin (Bld) [Mass/Vol] 13.7 g/dL 13.0 - 17.0 g/dL [facility] Immature granulocytes (Bld) [#/Vol] 0.12 10*3/uL High [facility] Immature granulocytes/100 WBC (Bld) 1.5 % [facility] Interpretation and review of laboratory results Abnormal [facility] Lymphocytes (Bld) [#/Vol] 0.64 10*3/uL Low [facility] Lymphocytes/100 WBC (Bld) 7.9 % [facility] MCH (RBC) [Entitic mass] 30.6 pg 26.0 - 34.0 pg [facility] MCHC (RBC) [Mass/Vol] 33.7 g/dL 30.5 - 36.0 g/dL [facility] MCV (RBC) [Entitic vol] 90.8 fL 80.0 - 100.0 fL [facility] Monocytes (Bld) [#/Vol] 0.50 10*3/[facility] Monocytes/100 WBC (Bld) 6.2 % [facility] Neutrophils (Bld) [#/Vol] 6.74 10*3/uL [facility] Neutrophils/100 WBC (Bld) 83.0 % [facility] Nucleated RBC (Bld) [#/Vol] NINF [facility] Nucleated RBC/100 WBC (Bld) [Ratio] 0.0 % /100 WBC [facility] Platelet mean volume (Bld) [Entitic vol] 10.2 fL 9.0 - 12.7 fL [facility] Platelets (Bld) [#/Vol] 191 10*3/uL [facility] RBC (Bld) [#/Vol] 4.47 10*6/uL 4.20 - 6.00 m/uL [facility] WBC (Bld) [#/Vol] 8.11 10*3/uL [facility] Basophils (Bld) [#/Vol] 0.03 10*3/uL Normal <0.11 [facility] Comment on above: Order Comment: Specimen Type: BLOOD SPEC IMENOrdering Facility: [facility] [place] Address: [address] [place] [address] Performed By: #### 5 7021-8 ####[facility] LABCLIA [id number] [place] [address] Basophils/100 WBC (Bld) 0.4 % Normal [facility] Comment on above: Order Comment: Specimen Type: BLOOD SPEC IMENOrdering Facility: [facility] [place] Address: [address] [place] [address] Performed By: #### 5 7021-8 ####[facility] LABCLIA [id number] [place] [address] Differential cell count method Nom (Bld) Auto Normal [facility] Comment on above: Order Comment: Specimen Type: BLOOD SPEC IMENOrdering Facility: [facility] [place] Address: [address] [place] [address] Performed By: #### 5 7021-8 ####[facility] LABCLIA [id number] [place] [address] Eosinophils (Bld) [#/Vol] 0.08 10*3/uL Normal <0.46 [facility] Comment on above: Order Comment: Specimen Type: BLOOD SPEC IMENOrdering Facility: [facility] [place] Address: [address] [place] [address] Performed By: #### 5 7021-8 ####[facility] LABCLIA [id number] [place] [address] Eosinophils/100 WBC (Bld) 1.0 % Normal [facility] Comment on above: Order Comment: Specimen Type: BLOOD SPEC IMENOrdering Facility: [facility] [place] Address: [address] [place] [address] Performed By: #### 5 7021-8 ####[facility] LABCLIA [id number] [place] [address] Erythrocyte distribution width (RBC) [Ratio] 14.6 % Normal 11.5-15.0 [facility] Comment on above: Order Comment: Specimen Type: BLOOD SPEC IMENOrdering Facility: [facility] [place] Address: [address] [place] [address] Performed By: #### 5 7021-8 ####[facility] LABCLIA [id number] [place] [address] Hematocrit (Bld) [Volume fraction] 40.6 % Normal 39.0-51.0 [facility] Comment on above: Order Comment: Specimen Type: BLOOD SPEC IMENOrdering Facility: [facility] [place] Address: [address] [place] [address] Performed By: #### 5 7021-8 ####[facility] LABCLIA [id number] [place] [address] Hemoglobin (Bld) [Mass/Vol] 13.7 g/dL Normal 13.0-17.0 [facility] Comment on above: Order Comment: Specimen Type: BLOOD SPEC IMENOrdering Facility: [facility] [place] Address: [address] [place] [address] Performed By: #### 5 7021-8 ####[facility] LABCLIA [id number] [place] [address] Immature granulocytes (Bld) [#/Vol] 0.12 10*3/uL High <0.10 [facility] Comment on above: Order Comment: Specimen Type: BLOOD SPEC IMENOrdering Facility: [facility] [place] Address: [address] [place] [address] Performed By: #### 5 7021-8 ####[facility] LABCLIA [id number] [place] [address] Immature granulocytes/100 WBC (Bld) 1.5 % Normal [facility] Comment on above: Order Comment: Specimen Type: BLOOD SPEC IMENOrdering Facility: [facility] [place] Address: [address] [place] [address] Performed By: #### 5 7021-8 ####[facility] LABCLIA [id number] [place] [address] Lymphocytes (Bld) [#/Vol] 0.64 10*3/uL Low 1.00-4.00 [facility] Comment on above: Order Comment: Specimen Type: BLOOD SPEC IMENOrdering Facility: [facility] [place] Address: [address] [place] [address] Performed By: #### 5 7021-8 ####[facility] LABCLIA [id number] [place] [address] Lymphocytes/100 WBC (Bld) 7.9 % Normal [facility] Comment on above: Order Comment: Specimen Type: BLOOD SPEC IMENOrdering Facility: [facility] [place] Address: [address] [place] [address] Performed By: #### 5 7021-8 ####[facility] LABCLIA [id number] [place] [address] MCH (RBC) [Entitic mass] 30.6 pg Normal 26.0-34.0 [facility] Comment on above: Order Comment: Specimen Type: BLOOD SPEC IMENOrdering Facility: [facility] [place] Address: [address] [place] [address] Performed By: #### 5 7021-8 ####[facility] LABIA [id number] [place] [address] MCHC (RBC) [Mass/Vol] 33.7 g/dL Normal 30.5-36.0 [facility] Comment on above: Order Comment: Specimen Type: BLOOD SPEC IMENOrdering Facility: [facility] [place] Address: [address] [place] [address] Performed By: #### 5 7021-8 ####[facility] LABCLIA [id number] [place] [address] MCV (RBC) [Entitic vol] 90.8 fL Normal 80.0-100.0 [facility] Comment on above: Order Comment: Specimen Type: BLOOD SPEC IMENOrdering Facility: [facility] [place] Address: [address] [place] [address] Performed By: #### 5 7021-8 ####[facility] LABIA [id number] [place] [address] Monocytes (Bld) [#/Vol] 0.50 10*3/uL Normal <0.87 [facility] Comment on above: Order Comment: Specimen Type: BLOOD SPEC IMENOrdering Facility: [facility] [place] Address: [address] [place] [address] Performed By: #### 5 7021-8 ####[facility] LABCLIA [id number] [place] [address] Monocytes/100 WBC (Bld) 6.2 % Normal [facility] Comment on above: Order Comment: Specimen Type: BLOOD SPEC IMENOrdering Facility: [facility] [place] Address: [address] [place] [address] Performed By: #### 5 7021-8 ####[facility] LABCLIA [id number] [place] [address] Neutrophils (Bld) [#/Vol] 6.74 10*3/uL Normal 1.45-7.50 [facility] Comment on above: Order Comment: Specimen Type: BLOOD SPEC IMENOrdering Facility: [facility] [place] Address: [address] [place] [address] Performed By: #### 5 7021-8 ####[facility] LABCLIA [id number] [place] [address] Neutrophils/100 WBC (Bld) 83.0 % Normal [facility] Comment on above: Order Comment: Specimen Type: BLOOD SPEC IMENOrdering Facility: [facility] [place] Address: [address] [place] [address] Performed By: #### 5 7021-8 ####[facility] LABCLIA [id number] [place] [address] Nucleated RBC (Bld) [#/Vol] 10*3/uL Normal <0.01 [facility] Comment on above: Order Comment: Specimen Type: BLOOD SPEC IMENOrdering Facility: [facility] [place] Address: [address] [place] [address] Performed By: #### 5 7021-8 ####[facility] LABCLIA [id number] [place] [address] Nucleated RBC/100 WBC (Bld) [Ratio] 0.0 /100 WBC Normal [facility] Comment on above: Order Comment: Specimen Type: BLOOD SPEC IMENOrdering Facility: [facility] [place] Address: [address] [place] [address] Performed By: #### 5 7021-8 ####[facility] LABCLIA [id number] [place] [address] Platelet mean volume (Bld) [Entitic vol] 10.2 fL Normal 9.0-12.7 [facility] Comment on above: Order Comment: Specimen Type: BLOOD SPEC IMENOrdering Facility: [facility] [place] Address: [address] [place] [address] Performed By: #### 5 7021-8 ####[facility] LABCLIA [id number] [place] [address] Platelets (Bld) [#/Vol] 191 10*3/uL Normal 150-400 [facility] Comment on above: Order Comment: Specimen Type: BLOOD SPEC IMENOrdering Facility: [facility] [place] Address: [address] [place] [address] Performed By: #### 5 7021-8 ####[facility] LABIA [id number] [place] [address] RBC (Bld) [#/Vol] 4.47 10*6/uL Normal 4.20-6.00 [facility] Comment on above: Order Comment: Specimen Type: BLOOD SPEC IMENOrdering Facility: [facility] [place] Address: [address] [place] [address] Performed By: #### 5 7021-8 ####[facility] LABIA [id number] [place] [address] WBC (Bld) [#/Vol] 8.11 10*3/uL Normal 3.70-11.00 [facility] Comment on above: Order Comment: Specimen Type: BLOOD SPEC IMENOrdering Facility: [facility] [place] Address: [address] [place] [address] Performed By: #### 5 7021-8 ####[facility] LABIA [id number] [place] [address] CNOVon 11-16-2023 CNOV Office Visit ([facility] ) ADOLPH JOHNS ([id number]) 1945 M Date Time Provider Department 11/16/23 [...] DIAGNOSIS: Prostate adenocarcinoma, initial PSA 7.5, biopsy [place] score 4 + 3 = 7 (grade [...] by: David Kumari MD cc: Shahriar Stephenson [address] [place] [phone] No referring provider defined for this encounter. Allergies As of Date: 11/16/2023 Noted Allergy Reaction PENICILLINS 10/22/2019 2 - Rash 7 - Swelling TERAMYCIN (OXYTETRACYCLINE) 10/22/2019 16 - Unknown Date Reviewed: 11/16/2023 Reviewed by: Bettina Sargent MA - Fully Assessed Reason for Visit: Prostate Cancer [590] Primary Visit Diagnosis:Malignant neoplasm of prostate (HCC) [C61] Order(s):PROSTATE-SPE CIFIC ANTIGEN DIAGNOSTIC [SQPSA] Order #: [id number] FUTURE Prescriptions as of 11/24/2023 - abiraterone [...] 11/16/2023 Noted Resolved Secondary hyperparathyroidism ([facility]) [N25.81] 01/16/2023 Platelets decreased ([facility]) [D69.6] 01/16/2023 Visit Notes: >> Peggy Lakhani RN [facility] Nov 16, 2023 2:14 PM Status: Signed AUA 6 Peggy Lakhani RN Disposition: Return in about 6 months (around 05/16/2024). Follow-up and Disposition History for Encounter Date Provider Department Center 11/16/2023 [id number] [facility] Metzy Encounter Status:Closed by David KUMARI on 11/24/23 [facility] CNOVSPon 11-16-2023 CNOVSP Visit (SP) Office ([facility]) ADOLPH JOHNS ([id number]) 1945 M Date Time Provider Department 11/16/23 [...] with urination. He plans to travel to [place] next week where he plans to spend [...] or petechiae. PATHOLOGY: 11/10/2022 Bladder tumor, TURBT ([facility]) Metastatic poorly differentiated adenocarcinoma, consistent with [...] nodes BONES/SOFT (more content not included)... Normal [facility] IMMUNOFIXATION SCREEN, SERUM on 11-16-2023 INTERPRETATION (MPA) Atypical restricted bands are present in the IgG and lambda regions. Consistent with IgG lambda monoclonal gammopathy. Normal [facility] Comment on above: Order Comment: Specimen Type: BLOOD SPEC IMENOrdering Facility: [facility] [place] Address: [address] [place] [address] Performed By: #### I FESC ####[facility] LABCLIA [id number] [place] [address] [place] MPA RESULT M protein is present. Abnormal No M p rotein is identified. [facility] Comment on above: Order Comment: Specimen Type: BLOOD SPEC IMENOrdering Facility: [facility] [place] Address: [address] [place] [address] Performed By: #### I FESC ####[facility] LABCLIA [id number] [place] [address] [place] STAFF REVIEW (MPA) Reviewed by Therese Junior MD Normal [facility] Comment on above: Order Comment: Specimen Type: BLOOD SPEC IMENOrdering Facility: [facility] [place] Address: [address] [place] [address] Performed By: #### I FESC ####[facility] LABCLIA [id number] [place] [address] [place] IMMUNOGLOBULINS,IGG,IGA,IGMo n 11-16-2023 IgA [Mass/Vol] 55 mg/dL Low 70-400 [facility] Comment on above: Order Comment: Specimen Type: BLOOD SPEC IMENOrdering Facility: [facility] [place] Address: [address] [place] [address] Performed By: #### S ERIMM ####[facility] LABCLIA [id number] [place] [address] [place] IgG [Mass/Vol] 1242 mg/dL Normal 700-1600 [facility] Comment on above: Order Comment: Specimen Type: BLOOD SPEC IMENOrdering Facility: [facility] [place] Address: [address] [place] [address] Performed By: #### S ERIMM ####[facility] LABCLIA [id number] [place] [address] [place] IgM [Mass/Vol] 72 mg/dL Normal 40-230 [facility] Comment on above: Order Comment: Specimen Type: BLOOD SPEC IMENOrdering Facility: [facility] [place] Address: [address] [place] [address] Performed By: #### S ERIMM ####[facility] LABCLIA [id number] [place] [address] [place] KAPPA/LIM,FREE,SERon 2023 Immunoglobulin light chains.kappa.zaida e (S) [Mass/Vol] 25.0 mg/L High 3.3-19.4 [facility] Comment on above: Order Comment: Specimen Type: BLOOD SPEC IMENOrdering Facility: [facility] [place] Address: [address] [place] [address] Result Comment: Rare ly, increased serum free light chains levels may not be detected or accurately quantified due to prozone phenomenon or in high viscosity samples using this immunoturbidimetric assay. Correlation with other laboratory results and clinical findings is recommended. The [place] Free Light Chain was performed using the Binding Site Optilite immunoturbidimetric method. Result obtained with different assay methods or kits cannot be used interchangeably. Performed By: #### K LFRS ####[facility] LABIA [id number] [place] [address] [place] Immunoglobulin light chains.kappa/Imm unoglobulin light chains.lambda (S) [Mass ratio] 1.45 Normal 0.26-1.65 [facility] Comment on above: Order Comment: Specimen Type: BLOOD SPEC IMENOrdering Facility: [facility] [place] Address: [address] [place] [address] Performed By: #### K LFRS ####[facility] LABIA [id number] [place] [address] [place] Immunoglobulin light chains.lambda.fr ee [Mass/Vol] 17.2 mg/L Normal 5.7-26.3 [facility] Comment on above: Order Comment: Specimen Type: BLOOD SPEC IMENOrdering Facility: [facility] [place] Address: [address] [place] [address] Result Comment: Rare ly, increased serum free [...] used interchangeably. Performed By: #### K LFRS ####[facility] LABIA [id number] [place] [address] [place] PROTEIN ELECTROPHORESIS SERU M WITH FAUSTINA (P)on 11-16-2023 Albumin [Mass/Vol] 4.23 g/dL Normal 3.43-5.41 [facility] Comment on above: Order Comment: Specimen Type: BLOOD SPEC IMENOrdering Facility: [facility] [place] Address: [address] [place] [address] Performed By: #### L [id number] ####[facility] LABIA [id number] [place] [address] [place] Alpha 1 globulin Elph [Mass/Vol] 0.32 g/dL Normal 0.18-0.43 [facility] Comment on above: Order Comment: Specimen Type: BLOOD SPEC IMENOrdering Facility: [facility] [place] Address: [address] [place] [address] Performed By: #### L [id number] ####[facility] LABIA [id number] [place] [address] [place] Alpha 2 globulin Elph [Mass/Vol] 0.80 g/dL Normal 0.42-0.98 [facility] Comment on above: Order Comment: Specimen Type: BLOOD SPEC IMENOrdering Facility: [facility] [place] Address: [address] [place] [address] Performed By: #### L [id number] ####[facility] LABIA [id number] [place] [address] [place] Beta globulin Elph [Mass/Vol] 0.77 g/dL Normal 0.61-1.17 [facility] Comment on above: Order Comment: Specimen Type: BLOOD SPEC IMENOrdering Facility: [facility] [place] Address: [address] [place] [address] Performed By: #### L [id number] ####[facility] LABIA [id number] [place] [address] [place] COMMENT (SERUM PROT ELECTRO) Monoclonal Protein analysis (immunofixation) is not indicated. Normal [facility] Comment on above: Order Comment: Specimen Type: BLOOD SPEC IMENOrdering Facility: [facility] [place] Address: [address] [place] [address] Performed By: #### L [id number] ####[facility] LABIA [id number] [place] [address] [place] Gamma globulin Elph [Mass/Vol] 1.18 g/dL Normal 0.53-1.51 [facility] Comment on above: Order Comment: Specimen Type: BLOOD SPEC IMENOrdering Facility: [facility] [place] Address: [address] [place] [address] Performed By: #### L [id number] ####[facility] LABIA [id number] [place] [address] [place] INTERPRETATION COMMENT FOR PROTEIN ELECTROPHORESIS See separate immunofixation report for characterization of monoclonal gammopathy. Normal [facility] Comment on above: Order Comment: Specimen Type: BLOOD SPEC IMENOrdering Facility: [facility] [place] Address: [address] [place] [address] Performed By: #### L [id number] ####[facility] [id number] [place] [address] [place] M-PROTEIN LOCATION Gamma Fraction 1 Normal [facility] Comment on above: Order Comment: Specimen Type: BLOOD SPEC IMENOrdering Facility: [facility] [place] Address: [address] [place] [address] Performed By: #### L [id number] ####[facility] [id number] [place] [address] [place] Protein Fractions [Interp] An M protein is identified on protein electrophoresis. Abnormal No definitive M protein is identified on protein electrophoresis. [facility] Comment on above: Order Comment: Specimen Type: BLOOD SPEC IMENOrdering Facility: [facility] [place] Address: [address] [place] [address] Performed By: #### L [id number] ####[facility] LABIA [id number] [place] [address] [place] Protein.monoclon al Elph [Mass/Vol] 0.73 g/dL High <=0.00 [facility] Comment on above: Order Comment: Specimen Type: BLOOD SPEC IMENOrdering Facility: [facility] [place] Address: [address] [place] [address] Performed By: #### L [id number] ####[facility] LABIA [id number] [place] [address] [place] SPE STAFF REVIEW Reviewed by Therese Junior MD [facility] Comment on above: Order Comment: Specimen Type: BLOOD SPEC IMENOrdering Facility: [facility] [place] Address: [address] [place] [address] Performed By: #### L [id number] ####[facility] LABCLIA [id number] [place] [id number] [facility] [place] Prot SerPl-mCncon 11-16-2023 Protein [Mass/Vol] 7.3 g/dL Normal 6.3-8.0 [facility] Comment on above: Order Comment: Specimen Type: BLOOD SPEC IMENOrdering Facility: [facility] [place] Address: [address] [place] [address] Performed By: #### 2 885-2 ####[facility] LABCLIA [id number] [address] [place] Lipid 1996 panelon Cholesterol [Mass/Vol] 167 mg/dL Normal <200 [facility] Comment on above: Order Comment: Specimen Type: BLOOD SPEC IMENOrdering Facility: External Submitter Address: , , Result Comment: <200 mg/dL, Desirable 200-239 mg/dL, Borderline high >239 mg/dL, High Performed By: #### 2 4331-1 ####[facility] LABCLIA [id number] [address] LABCLIA [id number] [place] [id number] Cholesterol in HDL [Mass/Vol] 37 mg/dL Low >39 [facility] Comment on above: Order Comment: Specimen Type: BLOOD SPEC IMENOrdering Facility: External Submitter Address: , , Result Comment: 40-5 9 mg/dL, Acceptable >59 mg/dL, High: Negative risk factor for coronary heart disease <40 mg/dL, Low: Positive risk factor for coronary heart disease Performed By: #### 2 4331-1 ####[facility] LABCLIA [id number] [address] [address] [facility] LABCLIA [id number] [place] [address] Cholesterol in LDL [Mass/Vol] 59 mg/dL Normal <100 [facility] Comment on above: Order Comment: Specimen Type: BLOOD SPEC IMENOrdering Facility: External Submitter Address: , , Result Comment: <100 mg/dL, Optimal 100-129 mg/dL, Near optimal/above optimal 130-159 mg/dL, Borderline high 160-189 mg/dL, High >189 mg/dL, Very high Secondary prevention optimal LDL Cholesterol levels are recommended to be < 70 mg/dL Performed By: #### 2 4331-1 ####[facility] LABCLIA [id number] [address] LABCLIA [id number] [place] [address] Cholesterol in LDL/Cholesterol in HDL [Mass ratio] 1.59 {ratio} Normal <2.54 [facility] Comment on above: Order Comment: Specimen Type: BLOOD SPEC IMENOrdering Facility: External Submitter Address: , , Result Comment: Refshabnam rock: 1. National Cholesterol Education Program ATP III Guideline At-A-Glance Quick Desk Reference: National Heart, Lung, and Blood Bearden. National Institutes of Health. 2001: NIH Publication No. 01-3305. 2. An International Atherosclerosis Society position paper: global recommendations for the management of dyslipidemia: executive summary, Atherosclerosis. 2014: 232(2):410-413. Performed By: #### 2 4331-1 ####[facility] LABIA [id number] [place] [id number] [facility] LABCLIA [id number] [place] [address] Cholesterol in VLDL [Mass/Vol] 71 mg/dL High <30 [facility] Comment on above: Order Comment: Specimen Type: BLOOD SPEC IMENOrdering Facility: External Submitter Address: , , Performed By: #### 2 4331-1 ####[facility] LABCLIA [id number] [address] LABCLIA [id number] [place] [address] Cholesterol non HDL [Mass/Vol] 130 mg/dL High <130 [facility] Comment on above: Order Comment: Specimen Type: BLOOD SPEC IMENOrdering Facility: External Submitter Address: , , Result Comment: <130 mg/dL, Optimal 130-159 mg/dL, Near optimal/above optimal 160-189 mg/dL, Borderline high 190-219 mg/dL, High >219 mg/dL, Very high Secondary prevention optimal non HDL Cholesterol levels are recommended to be <100 mg/dL Performed By: #### 2 4331-1 ####[facility] LABCLIA [id number] [address] LABCLIA [id number] [place] [address] Cholesterol.tota l/Cholesterol in HDL [Mass ratio] 4.51 {ratio} Normal <5.10 [facility] Comment on above: Order Comment: Specimen Type: BLOOD SPEC IMENOrdering Facility: External Submitter Address: , , Performed By: #### 2 4331-1 ####[facility] LABCLIA [id number] [address] LABCLIA [id number] [place] [id number] FASTING TIME 2 hrs Normal [facility] Comment on above: Order Comment: Specimen Type: BLOOD SPEC IMENOrdering Facility: External Submitter Address: , , Result Comment: nonf asting Performed By: #### 2 4331-1 ####[facility] LABCLIA [id number] [place] [id number] [facility] LABCLIA [id number] [place] [address] Triglyceride [Mass/Vol] 357 mg/dL High <150 [facility] Comment on above: Order Comment: Specimen Type: BLOOD SPEC IMENOrdering Facility: External Submitter Address: , , Result Comment: <150 mg/dL, Normal 150-199 mg/dL, Borderline high 200-499 mg/dL, High >499 mg/dL, Very high Performed By: #### 2 4331-1 ####[facility] LABCLIA [id number] [address] LABCLIA [id number] [place] [address] [facility] Prostate specific Ag [Mass/Vol] ng/mL Normal <2.60 [facility] Comment on above: Order Comment: Specimen Type: BLOOD SPEC IMENOrdering Facility: [facility] Address: [address] [place] [address] Result Comment: Jeremi mart PSA test methodology used is the Electrochemiluminescence Immunoassay by [employer]. Total PSA values by differing methodologies cannot be interchanged. Performed By: #### 2 857-1 ####[facility] LABCLIA [id number] [address] Ambulatory Visit Summaryon 0 10-24-2023 Ambulatory [...] ROSARIO, Yosef Bunch Where: [facility] [address] [place] [address]- 2024 11:00 AM EDT With: Where: [facility] [address] [address]- Medications What How Much When Instructions Unchanged [...] call (more content not included)... Normal [facility] Office/Clini c Noteon 10-24-2023 [...] of clutter to prevent tripping and/or falling. [place] Advance Directives reviewed. 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 No concerns with [...] Radical retropu (more content not included)... Normal [facility] Comment on above: Result Comment: Electronically [...] With: Where: [facility] [address] [address]- Monday 11:00 AM EDT With: Yosef GRIMES MD Where: [facility] [address] [place] [address]- Medications What How Much When Instructions Unchanged [...] choosing us for your care. Normal [facility] Office/Clini c Noteon 09-27-2023 [...] for 90 day(s), 90 tab(s), Refill(s) 3, [facility], 185, cm, 09/27/23 11:20:00 EDT, Height/Length Dosing, 116, kg, 09/27/23 11:20:00 EDT, Weight Dosing hydrochlorothiazide-l isinopril, 1 tab(s), Oral, Daily, 30 tab(s), Refill(s) 0, [facility], 190, cm, 05/22/23 11:33:00 EDT, [...] Cancer - unknown origin: Father. Hypertension: Mother. [facility] Comment on above: Result Comment: Electronically Signed By : Shilpa Naylor\.arun\Date and Time Signed: 09/27/23 12:26 EDT Consultation Noteon 05-29-19 Consultation Note [id number] .00TIFF [facility] Consultation Noteon 05-26-19 Consultation Note [id number] .00TIFF [facility] Ambulatory Visit Summaryon 0 05-22-2023 Ambulatory Visit [...] Appointments Monday 1:00 PM EDT With: Where: [facility] [place] Normal [address] [place] [address] [place] [address]- \.br\ You Need to Schedule the Following Appointments\.br\ Follow Up with CORNELIO ROSARIO, Yosef Bunch, URL When: \.br\ Comments:\.br\ 6 mos w/ PSA (gets level from [facility])\.br\ Where:\.br\ [facility] [address]\ [place] [address]-\.br\ [phone]\.br\ Medications\.br\ What How Much When Instructions\.br\ Unchanged [...] Where to find more information\.br\ ? \.br\ [place] [employer] Society: www.cancer.org\.br\ ? \.br\ National Cancer Bearden: www.cancer.gov\.br\ Contact a health care provider if:\.br\ [...] lower half of your body.\.br\ ? \.br\ [facility] Patient Educationon 05-22-19 Patient Education Oncology [...] cancer. Where to find more information ? [place] Cancer Society: www.cancer.org ? National Cancer Bearden: www.cancer.gov Contact a health care provider if: [...] an emergenc (more content not included)... Normal [facility] Urology Office/Clinic Noteon 05-22-2023 Urology Office/Clinic [...] - <0.02 PSMA PET scan 10/28/22 at [facility] - neg for mets; approx 1.5cm [...] Bunch, URL [facility] [address] [place] [address] [phone] Additional Instructions: 6 mos w/ PSA (gets [...] 5 mg Tab (more content not included)... [facility] Comment on above: Result Comment: Electronically Signed By : Yosef GRIMES MD\.br\Date and Time Signed: 05/22/23 12:03 EDT\.br\Electronically Co-Signed By: Odette Cottrell.br\Date and Time Co-Signed: 05/22/23 12:01 EDT Pre-Certification Formon Pre-Certificatio n Form [id number] .00[facility]FF [facility] CBC W Auto Differential pane l (Bld)on 01-05-2023 Basophils (Bld) [#/Vol] <0.11 k/uL [facility] Basophils/100 WBC (Bld) 0.3 % [facility] Differential cell count method Nom (Bld) Auto [facility] Eosinophils (Bld) [#/Vol] 0.09 10*3/uL <0.46 k/uL [facility] Eosinophils/100 WBC (Bld) 1.1 % [facility] Erythrocyte distribution width (RBC) [Ratio] 14.9 % 11.5 - 15.0 % [facility] Hematocrit (Bld) [Volume fraction] 44.5 % 39.0 - 51.0 % [facility] Hemoglobin (Bld) [Mass/Vol] 15.0 g/dL 13.0 - 17.0 g/dL [facility] Immature granulocytes (Bld) [#/Vol] 0.08 10*3/uL <0.10 k/uL [facility] Immature granulocytes/100 WBC (Bld) 1.0 % [facility] Lymphocytes (Bld) [#/Vol] 0.45 10*3/uL Low 1.00 - 4.00 k/uL [facility] Lymphocytes/100 WBC (Bld) 5.6 % [facility] MCH (RBC) [Entitic mass] 29.1 pg 26.0 - 34.0 pg [facility] MCHC (RBC) [Mass/Vol] 33.7 g/dL 30.5 - 36.0 g/dL [facility] MCV (RBC) [Entitic vol] 86.2 fL 80.0 - 100.0 fL [facility] Monocytes (Bld) [#/Vol] 0.66 10*3/uL <0.87 k/uL [facility] Monocytes/100 WBC (Bld) 8.3 % [facility] Neutrophils (Bld) [#/Vol] 6.67 10*3/uL 1.45 - 7.50 k/uL [facility] Neutrophils/100 WBC (Bld) 83.7 % [facility] Nucleated RBC (Bld) [#/Vol] <0.01 k/uL [facility] Nucleated RBC/100 WBC (Bld) [Ratio] 0.0 /100 WBC [facility] Platelet mean volume (Bld) [Entitic vol] 10.1 fL 9.0 - 12.7 fL [facility] Platelets (Bld) [#/Vol] 100 10*3/uL Low 150 - 400 k/uL [facility] RBC (Bld) [#/Vol] 5.16 10*6/uL 4.20 - 6.00 m/uL [facility] WBC (Bld) [#/Vol] 7.97 10*3/uL 3.70 - 11.00 k/uL [facility] Comprehensive metabolic 2000 panelon 11-30-2023 Albumin [Mass/Vol] 4.8 g/dL 3.9 - 4.9 g/dL [facility] ALP [Catalytic activity/Vol] 50 U/L 38 - 113 U/L [facility] ALT [Catalytic activity/Vol] 9 U/L Low 10 - 54 U/L [facility] Anion gap [Moles/Vol] 12 mmol/L 9 - 18 mmol/L [facility] AST [Catalytic activity/Vol] 14 U/L 14 - 40 U/L [facility] Bilirubin [Mass/Vol] 0.8 mg/dL 0.2 - 1.3 mg/dL [facility] Calcium [Mass/Vol] 10.5 mg/dL High 8.5 - 10.2 mg/dL [facility] Chloride [Moles/Vol] 103 mmol/L 97 - 105 mmol/L [facility] CO2 [Moles/Vol] 24 mmol/L 22 - 30 mmol/L [facility] Creatinine [Mass/Vol] 1.33 mg/dL High 0.73 - 1.22 mg/dL [facility] Estimated Glomerular Filtration Rate 55 mL/min/1.73m Low >=60 mL/min/1.73m [facility] Glucose [Mass/Vol] 112 mg/dL High 74 - 99 mg/dL [facility] Potassium [Moles/Vol] 3.1 mmol/L Low 3.7 - 5.1 mmol/L [facility] Protein [Mass/Vol] 7.8 g/dL 6.3 - 8.0 g/dL [facility] Sodium [Moles/Vol] 139 mmol/L 136 - 144 mmol/L [facility] Urea nitrogen [Mass/Vol] 28 mg/dL High 9 - 24 mg/dL [facility] CBC W Auto Differential pane l (Bld)on 12-22-2022 Basophils (Bld) [#/Vol] <0.11 k/uL [facility] Basophils/100 WBC (Bld) 0.2 % [facility] Differential cell count method Nom (Bld) Auto [facility] Eosinophils (Bld) [#/Vol] 0.09 10*3/uL <0.46 k/uL [facility] Eosinophils/100 WBC (Bld) 1.0 % [facility] Erythrocyte distribution width (RBC) [Ratio] 14.7 % 11.5 - 15.0 % [facility] Hematocrit (Bld) [Volume fraction] 45.5 % 39.0 - 51.0 % [facility] Hemoglobin (Bld) [Mass/Vol] 15.2 g/dL 13.0 - 17.0 g/dL [facility] Immature granulocytes (Bld) [#/Vol] 0.10 10*3/uL High <0.10 k/uL [facility] Immature granulocytes/100 WBC (Bld) 1.1 % [facility] Lymphocytes (Bld) [#/Vol] 1.02 10*3/uL 1.00 - 4.00 k/uL [facility] Lymphocytes/100 WBC (Bld) 11.0 % [facility] MCH (RBC) [Entitic mass] 29.0 pg 26.0 - 34.0 pg [facility] MCHC (RBC) [Mass/Vol] 33.4 g/dL 30.5 - 36.0 g/dL [facility] MCV (RBC) [Entitic vol] 86.7 fL 80.0 - 100.0 fL [facility] Monocytes (Bld) [#/Vol] 0.74 10*3/uL <0.87 k/uL [facility] Monocytes/100 WBC (Bld) 8.0 % [facility] Neutrophils (Bld) [#/Vol] 7.31 10*3/uL 1.45 - 7.50 k/uL [facility] Neutrophils/100 WBC (Bld) 78.7 % [facility] Nucleated RBC (Bld) [#/Vol] <0.01 k/uL [facility] Nucleated RBC/100 WBC (Bld) [Ratio] 0.0 /100 WBC [facility] Platelet mean volume (Bld) [Entitic vol] 9.8 fL 9.0 - 12.7 fL [facility] Platelets (Bld) [#/Vol] 166 10*3/uL 150 - 400 k/uL [facility] RBC (Bld) [#/Vol] 5.25 10*6/uL 4.20 - 6.00 m/uL [facility] WBC (Bld) [#/Vol] 9.28 10*3/uL 3.70 - 11.00 k/uL [facility] MRI PROSTATE WO/W IVCONon [facility] Urinalysis - AUTOMATEDon Appearance (U) CLEAR [employer] Other Bilirubin Ql (U) Negative [facility] Other Color (U) YELLOW [employer] Other Glucose Ql (U) Negative [employer] Other Hemoglobin Ql (U) TRACE INTACT [employer] Other Ketones Ql (U) Negative [employer] Other Leukocyte esterase Test strip Ql (U) Negative [employer] Other Nitrite Ql (U) Negative [employer] Other pH (U) 5.5 [pH] [employer] Other Protein Ql (U) 100 [employer] Other Specific gravity (U) [Rel density] 1.025 [employer] Other Urobilinogen (U) [Mass/Vol] 0.2 mg/dL [employer] Other Urinalysis - AUTOMATED [employer] Other Urine Cultureon 10-09-2022 Bacteria identified Cx Nom (U) [employer] Other PTH INTACTon 10-14-2021 PTH, Intact 25 pg/mL Normal 15-65 [facility] Comment on above: Performed By: #### PTHINT #### [facility] [address] [place] [address] [address] Brenda Kline VIT D 25-OH LABCORPon 2021 Vitamin D, 25-Hydroxy 36.7 ng/mL Normal 30.0-100.0 [facility] Comment on above: Result Comment: Vitamin D deficiency has been defined by the Bearden of Medicine and an Endocrine Society practice guideline as a level of serum 25-OH vitamin D less than 20 ng/mL (1,2). The Endocrine Society went on to further define vitamin D insufficiency as a level between 21 and 29 ng/mL (2). 1. IOM (Bearden of Medicine). 2010. Dietary reference intakes for calcium and D. [place]: The National Academies Press. 2. Daniel ALEMAN, Tiarra CUADRA, Dago PERRY, et al. Evaluation, treatment, and prevention of vitamin D deficiency: an Endocrine Society clinical practice guideline. JCEM. 2010; 96(7):1911-30. Performed By: #### V ITADLC ####[facility] [address] [place] [address]Dr. Brenda Kline HEMOGRAM AND PLATELon 2021 Hematocrit (Bld) [Volume fraction] 50.0 % Normal 42.0-54.0 [facility] Comment on above: Performed By: #### HH #### [facility] [address] [place] [address] [address] Brenda Kline Hemoglobin (Bld) [Mass/Vol] 16.3 g/dL Normal 14.0-18.0 [facility] Comment on above: Performed By: #### HH #### [facility] [address] [place] [address] [address] Brenda Kline MCH (RBC) [Entitic mass] 29.1 pg Normal 25.9-34.0 [facility] Comment on above: Performed By: #### HH #### [facility] [address] [place] [address] [address] Brenda Kline MCHC (RBC) [Mass/Vol] 32.6 g/dL Normal 29.9-35.2 [facility] Comment on above: Performed By: #### HH #### [facility] [address] [place] [address] [address] Brenda Kline MCV (RBC) [Entitic vol] 89.3 fL Normal 80.0-94.0 [facility] Comment on above: Performed By: #### HH #### [facility] [address] [place] [address] [address] Brenda Kline PLT 197 103/ul Normal 150-450 [facility] Comment on above: Performed By: #### HH #### [facility] [address] [place] [address] [address] Brenda Kline RBC 5.60 106/ul Normal 4.70-6.10 [facility] Comment on above: Performed By: #### HH #### [facility] [address] [place] [address] [address] Brenda Kline WBC 7.9 103/ul Normal 4.0-11.0 [facility] Comment on above: Performed By: #### HH #### [facility] [address] [place] [address] [address] Brenda Kline MAGNESIUMon 10-13-2021 Magnesium [Mass/Vol] 2.1 mg/dL Normal 1.8-2.4 [facility] Comment on above: Performed By: #### RENAL, MG, URIC ####[facility] [address] [place] [address]Dr. Brenda Kline RENAL FUNCTION PANELon 10-13 Albumin [Mass/Vol] 4.1 g/dL Normal 3.4-5.0 [facility] Comment on above: Performed By: #### RENAL, MG, URIC #### [facility] [address] [place] [address] [address] Brenda Kline Calcium [Mass/Vol] 9.6 mg/dL Normal 8.5-10.1 [facility] Comment on above: Performed By: #### RENAL, MG, URIC #### [facility] [address] [place] [address] [address] Brenda Kline Chloride [Moles/Vol] 103 mmol/L Normal 98-107 [facility] Comment on above: Performed By: #### RENAL, MG, URIC #### [facility] [address] [place] [address] [address] Brenda Kline CO2 [Moles/Vol] 27.2 mmol/L Normal 21.0-32.0 [facility] Comment on above: Performed By: #### RENAL, MG, URIC #### [facility] [address] [place] [address] [address] Brenda Kline Creatinine [Mass/Vol] 1.68 mg/dL Critically high 0.70-1.30 [facility] Comment on above: Performed By: #### RENAL, MG, URIC #### [facility] [address] [place] [address] Dr. Brenda Kline EGFR-AF SUDANESE 49 mL/min/1.73m2 Critically low >=60 [facility] Comment on above: Performed By: #### RENAL, MG, URIC #### [facility] [address] [place] [address] Dr. Brenda Kline EGFR-NON AF SUDANESE 40 mL/min/1.73m2 Critically low >=60 [facility] Comment on above: Performed By: #### RENAL, MG, URIC #### [facility] [address] [place] [address] Dr. Brenda Kline Glucose [Mass/Vol] 125 mg/dL Critically high 74-106 [facility] Comment on above: Performed By: #### RENAL, MG, URIC #### [facility] [address] [place] [address] Dr. Brenda Kline Phosphate [Mass/Vol] 3.5 mg/dL Normal 2.6-4.7 [facility] Comment on above: Performed By: #### RENAL, MG, URIC #### [facility] [address] [place] [address] Dr. Brenda Kline Potassium [Moles/Vol] 4.1 mmol/L Normal 3.5-5.1 [facility] Comment on above: Performed By: #### RENAL, MG, URIC #### [facility] [address] [place] [address] Dr. Brenda Kline Sodium [Moles/Vol] 139 mmol/L Normal 136-145 [facility] Comment on above: Performed By: #### RENAL, MG, URIC #### [facility] [address] [place] [address] Dr. Brenda Kline Urea nitrogen [Mass/Vol] 25.0 mg/dL Critically high 7.0-18.0 [facility] Comment on above: Performed By: #### RENAL, MG, URIC #### [facility] [address] [place] [address] Dr. Brenda Kline UA RANDOM W/MICROSCOPICon BACTERIA NONE SEEN Normal NONE SEEN [facility] Comment on above: Performed By: #### UAMIC #### [facility] [address] [place] [address] Dr. Brenda Kline Bilirubin Ql (U) Negative Normal NEGATIVE [facility] Comment on above: Performed By: #### UAMIC #### [facility] [address] [place] [address] Dr. Brenda Kline CAST SEEN Abnormal NONE SEEN [facility] Comment on above: Performed By: #### UAMIC #### [facility] [address] [place] [address] Dr. Brenda Kline Clarity (U) CLEAR Normal CLEAR [facility] Comment on above: Performed By: #### UAMIC #### [facility] [address] [place] [address] Dr. Brenda Kline Color (U) YELLOW Normal YELLOW [facility] Comment on above: Performed By: #### UAMIC #### [facility] [address] [place] [address] Dr. Brenda Kline Crystals LM Nom (Urine sed) NONE SEEN Normal NONE SEEN [facility] Comment on above: Performed By: #### UAMIC #### [facility] [address] [place] [address] Dr. Brenda Kline Epithelial cells LM Ql (Urine sed) RARE Normal NONE SEEN /RARE [facility] Comment on above: Performed By: #### UAMIC #### [facility] [address] [place] [address] Dr. Brenda Kline Glucose Ql (U) Negative Normal NEGATIVE [facility] Comment on above: Performed By: #### UAMIC #### [facility] [address] [place] [address] Dr. Brenda Kline Hemoglobin Ql (U) Negative Normal NEGATIVE [facility] Comment on above: Performed By: #### UAMIC #### [facility] [address] [place] [address] Dr. Brenda Kline HYALINE CAST RARE Normal [facility] Comment on above: Performed By: #### UAMIC #### [facility] [address] [place] [address] Dr. Brenda Kline Ketones Ql (U) Negative Normal NEGATIVE [facility] Comment on above: Performed By: #### UAMIC #### [facility] [address] [place] [address] Dr. Brenda Kline LEUKOCYTES Negative Normal NEGATIVE [facility] Comment on above: Performed By: #### UAMIC #### [facility] [address] [place] [address] Dr. Brenda Kline MUCOUS TRACE Abnormal NONE SEEN [facility] Comment on above: Performed By: #### UAMIC #### [facility] [address] [place] [address] Dr. Brenda Kline Nitrite Ql (U) Negative Normal NEGATIVE [facility] Comment on above: Performed By: #### UAMIC #### [facility] [address] [place] [address] Dr. Brenda Kline pH (U) 5.5 [pH] Normal 5-9 [facility] Comment on above: Performed By: #### UAMIC #### [facility] [address] [place] [address] Dr. Brenda Kline RBC 0-2 Normal 0-2 [facility] Comment on above: Performed By: #### UAMIC #### [facility] [address] [place] [address] Dr. Brenda Kline SPEC GRAVITY 1.025 Normal 1.005-<=1.025 [facility] Comment on above: Performed By: #### UAMIC #### [facility] [address] [place] [address] Dr. Brenda Kline UA PROTEIN Negative Normal NEGATIVE/ TRACE [facility] Comment on above: Performed By: #### UAMIC #### [facility] [address] [place] [address] Dr. Brenda Kline Urobilinogen Qn (U) 0.2 {Cayden'U}/dL Normal 0.2 - 1.0 [facility] Comment on above: Performed By: #### UAMIC #### [facility] [address] [place] [address] Dr. Brenda Kline WBC 0-2 Abnormal NONE SEEN [facility] Comment on above: Performed By: #### UAMIC #### [facility] Laboratory [address] [place] [address] Dr. Brenda Kline URIC ACID SERUMon 10-13-2021 Urate [Mass/Vol] 7.2 mg/dL Normal 3.5-7.2 [facility] Comment on above: Performed By: #### RENAL, MG, URIC #### [facility] [address] [place] [address] Dr. Brenda Kline URINE T PROTEIN CREAT RATIOo n 10-13-2021 Protein (U) [Mass/Vol] 29.0 mg/dL Critically high <=12.0 [facility] Comment on above: Performed By: #### URTPCR #### [facility] [address] [place] [address] Dr. Brenda Kline UR PROT CREAT RAT 0.14 Normal [facility] Comment on above: Performed By: #### URTPCR #### [facility] [address] [place] [address] Dr. Brenda Kline URINE CREAT 202.37 mg/dL Normal 20.00-300.00 [facility] Comment on above: Performed By: #### URTPCR #### [facility] [address] [place] [address] Dr. Brenda Kline US FINE NEEDLE ASP EXPon US FINE NEEDLE ASP EXP Begin Addendum #1 COLLECTED DATE/TIME: 08/16/2021 07:32 EDT Final Diagnosis Report for THE [place], [place] (A-B) RIGHT GROIN MASS; FINE NEEDLE [...] 2. Pathology results are pending. Normal [facility] CREATININEon 07-20-2021 Creatinine [Mass/Vol] 1.65 mg/dL Critically high 0.70-1.30 [facility] Comment on above: Performed By: #### CREA ####[facility] [id number] [place] [id number]. Brenda Kline EGFR-AF SUDANESE 50 mL/min/1.73m2 Critically low >=60 [facility] Comment on above: Performed By: #### CREA ####[facility] [id number] [place] [id number]. Brenda Kline EGFR-NON AF SUDANESE 41 mL/min/1.73m2 Critically low >=60 [facility] Comment on above: Performed By: #### CREA ####[facility] [id number] [place] [id number]. Brenda Kline CT PELVIS W CONon 07-20-2021 [...] MIA PERSON Date: 2021-07-20 16:34 Normal [facility] US SINGLE QUAD RT LOWERon US [...] MIA PERSON Date: 2021-07-09 17:23 Normal [facility] COVID Quick Testingon 2020 Result Negative [employer] Other Vital Signs Date Time Vital Sign Value Performing Clinician Facility 06-04-2024 14:53-0400 Body mass index (BMI) [Ratio] 31.84 kg/m2 YOAN Kumari MD Work Phone: [facility] 06-04-2024 14:53-0400 Body temperature 97.2 [degF] YOAN Kumari MD Work Phone: [facility] 06-04-2024 14:53-0400 Body weight 118.6 kg YOAN Kumari MD Work Phone: [facility] 06-04-2024 14:53-0400 Heart rate 75 /min YOAN Kumari MD Work Phone: [facility] 06-04-2024 14:53-0400 Respiratory rate 16 /min YOAN Kumari MD Work Phone: [facility] 06-04-2024 14:53-0400 SaO2% (BldA) [Mass fraction] 94 % NA Jasmyne ROSARIO Work Phone: [facility] 05-20-2024 13:58-0400 Body mass index (BMI) [Ratio] 31.65 kg/m2 Minoo Jena BACK TENDER P[employer].EXHIBITS COORDINATOR Work Phone: [facility] 05-20-2024 13:58-0400 Body temperature 97.59 [degF] Minoo Jena BACK TENDER P[employer].EXHIBITS COORDINATOR Work Phone: [facility] 05-20-2024 13:58-0400 Body weight 117.9 kg Minoo Jena BACK TENDER P[employer] DRI[employer].EXHIBITS COORDINATOR Work Phone: [facility] 05-20-2024 13:58-0400 Diastolic blood pressure 72 mm[Hg] Minoo Jena BACK TENDER P[employer] DRI[employer].EXHIBITS COORDINATOR Work Phone: [facility] 05-20-2024 13:58-0400 Heart rate 79 /min Minoo Jena BACK TENDER P[employer].EXHIBITS COORDINATOR Work Phone: [facility] 05-20-2024 13:58-0400 Respiratory rate 16 /min Minoo Jena BACK TENDER P[employer].EXHIBITS COORDINATOR Work Phone: [facility] 05-20-2024 13:58-0400 SaO2% (BldA) [Mass fraction] 97 % Minoo Jena BACK TENDER P[employer] DRI[employer].EXHIBITS COORDINATOR Work Phone: [facility] 05-20-2024 13:58-0400 Systolic blood pressure 120 mm[Hg] Minoo Jena BACK TENDER P[employer].EXHIBITS COORDINATOR Work Phone: [facility] 03-04-2024 09:49-0500 Diastolic blood pressure 74 mm[Hg] Yosef GRIMES [facility] 03-04-2024 09:49-0500 Heart rate 67 /min Yosef GRIMES [facility] 03-04-2024 09:49-0500 Respiratory rate 16 /min Yosef GRIMES [facility] 03-04-2024 09:49-0500 Systolic blood pressure 142 mm[Hg] Yosef GRIMES [facility] 01-23-2024 12:46-0500 Diastolic blood pressure 79 mm[Hg] Meño Bob [facility] 01-23-2024 12:46-0500 Heart rate 85 /min Meño Bob [facility] 01-23-2024 12:46-0500 Respiratory rate 16 /min Meño Bob [facility] 01-23-2024 12:46-0500 SaO2% (BldA) [Mass fraction] 95 % Meño Bob [facility] 01-23-2024 12:46-0500 Systolic blood pressure 120 mm[Hg] Meño Bob [facility] 01-10-2024 12:49-0500 Blood Pressure Location Yosef GRIMES [facility] 01-10-2024 12:49-0500 Body temperature 98.6 [degF] Yosef GRIMES [facility] 01-10-2024 12:49-0500 Diastolic blood pressure 83 mm[Hg] Yosef GRIMES [facility] 01-10-2024 12:49-0500 Heart rate 89 /min Yosef GRIMES [facility] 01-10-2024 12:49-0500 Respiratory rate 17 /min Yosef GRIMES [facility] 01-10-2024 12:49-0500 Systolic blood pressure 126 mm[Hg] Yosef GRIMES [facility] 01-08-2024 08:56-0500 Blood Pressure Location Yosef GRIMES [facility] 01-08-2024 08:56-0500 Body temperature 98.6 [degF] Yosef GRIMES [facility] 01-08-2024 08:56-0500 Diastolic blood pressure 83 mm[Hg] Yosef GRIMES [facility] 01-08-2024 08:56-0500 Heart rate 70 /min Yosef GRIMES [facility] 01-08-2024 08:56-0500 Respiratory rate 18 /min Yosef GRIMES [facility] 01-08-2024 08:56-0500 Systolic blood pressure 137 mm[Hg] Yosef GRIMES [facility] 11-24-2023 11:48-0400 Blood Pressure Location Yosef GRIMES [facility] 11-24-2023 11:48-0400 Body temperature 98.6 [degF] Yosef GRIMES [facility] 11-24-2023 11:48-0400 Diastolic blood pressure 86 mm[Hg] Yosef GRIMES [facility] 11-24-2023 11:48-0400 Heart rate 68 /min Yosef GRIMES [facility] 11-24-2023 11:48-0400 Respiratory rate 16 /min Yosef GRIMES [facility] 11-24-2023 11:48-0400 Systolic blood pressure 134 mm[Hg] Yosef GRIMES [facility] 11-16-2023 14:59-0400 Body height 193 cm Nicolas Hwang MD Work Phone: [facility] 11-16-2023 14:59-0400 Body mass index (BMI) [Ratio] 31.81 kg/m2 Nicolas Hwang MD Work Phone: [facility] 11-16-2023 14:59-0400 Body temperature 96.69 [degF] Nicolas Hwang MD Work Phone: [facility] 11-16-2023 14:59-0400 Body weight 118.5 kg Nicolas Hwang MD Work Phone: [facility] 11-16-2023 14:59-0400 Diastolic blood pressure 73 mm[Hg] Nicolas Hwang MD Work Phone: [facility] 11-16-2023 14:59-0400 Heart rate 93 /min Nicolas Hwang MD Work Phone: [facility] 11-16-2023 14:59-0400 Respiratory rate 18 /min Nicolas Hwang MD Work Phone: [facility] 11-16-2023 14:59-0400 SaO2% (BldA) [Mass fraction] 94 % Nicolas Hwang MD Work Phone: [facility] 11-16-2023 14:59-0400 Systolic blood pressure 124 mm[Hg] Nicolas Hwang MD Work Phone: [facility] 11-16-2023 14:13-0400 Body mass index (BMI) [Ratio] 31.84 kg/m2 YOAN Kumari MD Work Phone: [facility] 11-16-2023 14:13-0400 Body temperature 96.69 [degF] YOAN Kumari MD Work Phone: [facility] 11-16-2023 14:13-0400 Body weight 118.6 kg YOAN Kumari MD Work Phone: [facility] 11-16-2023 14:13-0400 Diastolic blood pressure 73 mm[Hg] YOAN Kumari MD Work Phone: [facility] 11-16-2023 14:13-0400 Heart rate 93 /min YOAN Kumari MD Work Phone: [facility] 11-16-2023 14:13-0400 Respiratory rate 18 /min YOAN Kumari MD Work Phone: [facility] 11-16-2023 14:13-0400 SaO2% (BldA) [Mass fraction] 94 % YOAN Kumari MD Work Phone: [facility] 11-16-2023 14:13-0400 Systolic blood pressure 124 mm[Hg] YOAN Kumari MD Work Phone: [facility] 05-22-2023 11:20-0400 Blood Pressure Location Yosef GRIMES [facility] 05-22-2023 11:20-0400 Body temperature 98.42 [degF] Yosef GRIMES [facility] 05-22-2023 11:20-0400 Diastolic blood pressure 85 mm[Hg] Yosef GRIMES [facility] 05-22-2023 11:20-0400 Heart rate 81 /min Yosef GRIMES [facility] 05-22-2023 11:20-0400 Respiratory rate 16 /min Yosef GRIMES [facility] 05-22-2023 11:20-0400 Systolic blood pressure 118 mm[Hg] Yosef GRIMES [facility] 05-18-2023 13:16-0400 Body temperature 97 [degF] Elio Payne BACK TENDER P[employer].EXHIBITS COORDINATOR Work Phone: [facility] 05-18-2023 13:16-0400 Body weight 115.8 kg Elio Payne BACK TENDER P[employer]RI[employer].EXHIBITS COORDINATOR Work Phone: [facility] 05-18-2023 13:16-0400 Diastolic blood pressure 74 mm[Hg] Elio Payne BACK TENDER P[employer] DRIER.EXHIBITS COORDINATOR Work Phone: [facility] 05-18-2023 13:16-0400 Heart rate 84 /min Elio Payne APRN.EXHIBITS COORDINATOR Work Phone: [facility] 05-18-2023 13:16-0400 Respiratory rate 18 /min Elio Payne APRN.EXHIBITS COORDINATOR Work Phone: [facility] 05-18-2023 13:16-0400 SaO2% (BldA) [Mass fraction] 94 % Elio Payne APRN.EXHIBITS COORDINATOR Work Phone: [facility] 05-18-2023 13:16-0400 Systolic blood pressure 144 mm[Hg] Elio Payne BACK TENDER P[employer]P [employer]RIER.EXHIBITS COORDINATOR Work Phone: [facility] 01-16-2023 12:20-0500 Body temperature 97.39 [degF] YOAN Kumari MD Work Phone: [facility] 01-16-2023 12:20-0500 Body weight 109.32 kg YOAN Kumari MD Work Phone: [facility] 01-16-2023 12:20-0500 Diastolic blood pressure 74 mm[Hg] YOAN Kumari MD Work Phone: [facility] 01-16-2023 12:20-0500 Heart rate 66 /min YOAN Kumari MD Work Phone: [facility] 01-16-2023 12:20-0500 Respiratory rate 18 /min YOAN Kumari MD Work Phone: [facility] 01-16-2023 12:20-0500 SaO2% (BldA) [Mass fraction] 96 % YOAN Kumari MD Work Phone: [facility] 01-16-2023 12:20-0500 Systolic blood pressure 114 mm[Hg] YOAN Kumari MD Work Phone: [facility] 01-05-2023 12:45-0500 Body height 193 cm Nicolas Hwang MD Work Phone: [facility] 01-05-2023 12:45-0500 Body temperature 97 [degF] Nicolas Hwang MD Work Phone: [facility] 01-05-2023 12:45-0500 Body weight 109.77 kg Nicolas Hwang MD Work Phone: [facility] 01-05-2023 12:45-0500 Diastolic blood pressure 70 mm[Hg] Nicolas Hwang MD Work Phone: [facility] 01-05-2023 12:45-0500 Heart rate 60 /min Nicolas Hwang MD Work Phone: [facility] 01-05-2023 12:45-0500 Respiratory rate 16 /min Nicolas Hwang MD Work Phone: [facility] 01-05-2023 12:45-0500 SaO2% (BldA) [Mass fraction] 94 % Nicolas Hwang MD Work Phone: [facility] 01-05-2023 12:45-0500 Systolic blood pressure 124 mm[Hg] Nicolas Hwang MD Work Phone: [facility] 01-02-2023 12:22-0500 Body temperature 97.59 [degF] YOAN Kumari MD Work Phone: [facility] 11-27-2023 12:22-0500 Body weight 110.13 kg YOAN Kumari MD Work Phone: [facility] 01-02-2023 12:22-0500 Diastolic blood pressure 75 mm[Hg] YOAN Kumari MD Work Phone: [facility] 01-02-2023 12:22-0500 Heart rate 59 /min YOAN Kumari MD Work Phone: [facility] 01-02-2023 12:22-0500 Respiratory rate 16 /min YOAN Kumari MD Work Phone: [facility] 01-02-2023 12:22-0500 SaO2% (BldA) [Mass fraction] 96 % YOAN Kumari MD Work Phone: [facility] 01-02-2023 12:22-0500 Systolic blood pressure 112 mm[Hg] YOAN Kumari MD Work Phone: [facility] 12-26-2022 12:09-0500 Body temperature 96.91 [degF] YOAN Kumari MD Work Phone: [facility] 12-26-2022 12:09-0500 Body weight 111.04 kg YOAN Kumari MD Work Phone: [facility] 12-26-2022 12:09-0500 Diastolic blood pressure 75 mm[Hg] YOAN Kumari MD Work Phone: [facility] 12-26-2022 12:09-0500 Heart rate 66 /min YOAN Kumari MD Work Phone: [facility] 12-26-2022 12:09-0500 Respiratory rate 16 /min YOAN Kumari MD Work Phone: [facility] 12-26-2022 12:09-0500 SaO2% (BldA) [Mass fraction] 95 % YOAN Kumari MD Work Phone: [facility] 12-26-2022 12:09-0500 Systolic blood pressure 116 mm[Hg] YOAN Kumari MD Work Phone: [facility] 12-19-2022 12:17-0500 Body temperature 97 [degF] YOAN Kumari MD Work Phone: [facility] 12-19-2022 12:17-0500 Body weight 111.04 kg YOAN Kumari MD Work Phone: [facility] 12-19-2022 12:17-0500 Diastolic blood pressure 68 mm[Hg] YOAN Kumari MD Work Phone: [facility] 12-19-2022 12:17-0500 Heart rate 81 /min YOAN Kumari MD Work Phone: [facility] 12-19-2022 12:17-0500 Respiratory rate 16 /min YOAN Kumari MD Work Phone: [facility] 12-19-2022 12:17-0500 SaO2% (BldA) [Mass fraction] 99 % YOAN Kumari MD Work Phone: [facility] 12-19-2022 12:17-0500 Systolic blood pressure 115 mm[Hg] YOAN Kumari MD Work Phone: [facility] 12-14-2022 10:57-0500 Body temperature 97 [degF] YOAN Kumari MD Work Phone: [facility] 12-14-2022 10:57-0500 Body weight 109.77 kg YOAN Kumari MD Work Phone: [facility] 12-14-2022 10:57-0500 Diastolic blood pressure 76 mm[Hg] YOAN Kumari MD Work Phone: [facility] 12-14-2022 10:57-0500 Heart rate 59 /min YOAN Kumari MD Work Phone: [facility] 12-14-2022 10:57-0500 Respiratory rate 16 /min YOAN Kumari MD Work Phone: [facility] 12-14-2022 10:57-0500 SaO2% (BldA) [Mass fraction] 96 % YOAN Kumari MD Work Phone: [facility] 12-14-2022 10:57-0500 Systolic blood pressure 125 mm[Hg] YOAN Kumari MD Work Phone: [facility] 12-02-2022 12:15-0400 Blood Pressure Location Yosef GRIMES [facility] 12-02-2022 12:15-0400 Diastolic blood pressure 74 mm[Hg] Yosef GRIMES [facility] 12-02-2022 12:15-0400 Heart rate 68 /min Yosef GRIMES [facility] 12-02-2022 12:15-0400 Systolic blood pressure 129 mm[Hg] Yosef GRIMES [facility] 11-18-2022 11:18-0400 Blood Pressure Location Yosef GRIMES [facility] 11-18-2022 11:18-0400 Diastolic blood pressure 70 mm[Hg] Yosef GRIMES [facility] 11-18-2022 11:18-0400 Heart rate 68 /min Yosef GRIMES [facility] 11-18-2022 11:18-0400 Respiratory rate 16 /min Yosef GRIMES [facility] 11-18-2022 11:18-0400 Systolic blood pressure 128 mm[Hg] Yosef GRIMES [facility] 11-15-2022 08:47-0400 Body temperature 97.59 [degF] YOAN Kumari MD Work Phone: [facility] 11-15-2022 08:47-0400 Body weight 112.49 kg YOAN Kumari MD Work Phone: [facility] 11-15-2022 08:47-0400 Diastolic blood pressure 78 mm[Hg] YOAN Kumari MD Work Phone: [facility] 11-15-2022 08:47-0400 Heart rate 57 /min YOAN Kumari MD Work Phone: [facility] 11-15-2022 08:47-0400 Respiratory rate 20 /min YOAN Kumari MD Work Phone: [facility] 11-15-2022 08:47-0400 SaO2% (BldA) [Mass fraction] 96 % YOAN Kumari MD Work Phone: [facility] 11-15-2022 08:47-0400 Systolic blood pressure 127 mm[Hg] YOAN Kumari MD Work Phone: [facility] 10-09-2022 10:45-0400 Body height 193.04 cm Angelina Holder Other [employer] Other 10-09-2022 10:45-0400 Body mass index (BMI) [Ratio] 30.59 kg/m2 Angelina Holder Other [employer] Other 10-09-2022 10:45-0400 Body temperature 98.3 [degF] Angelina Holder Other [employer] Other 10-09-2022 10:45-0400 Body weight 113.99 kg Angelina Holder Other [employer] Other 10-09-2022 10:45-0400 Diastolic blood pressure 68 mm[Hg] Angelina Holder Other [employer] Other 10-09-2022 10:45-0400 Respiratory rate 16 /min Angelina Curranmond Other [employer] Other 10-09-2022 10:45-0400 SaO2% (BldA) [Mass fraction] 96 % Angelina Holder Other [facility] [employer] Other 10-09-2022 10:45-0400 Systolic blood pressure 110 mm[Hg] Angelina Glory Other [facility] [employer] Other 10-03-2022 13:53-0400 Blood Pressure Location Yosefgutierrez GRIMES [facility] 10-03-2022 13:53-0400 Diastolic blood pressure 70 mm[Hg] Yosef GRIMES [facility] 10-03-2022 13:53-0400 Heart rate 80 /min Yosef GRIMES [facility] 10-03-2022 13:53-0400 Respiratory rate 16 /min Yosefgutierrez GRIMES [facility] 10-03-2022 13:53-0400 Systolic blood pressure 130 mm[Hg] Yosef GRIMES [facility] 06-02-2022 14:00-0400 Body height 193 cm Elio Payne APRN.EXHIBITS COORDINATOR Work Phone: [facility] 06-02-2022 14:00-0400 Body temperature 97.81 [degF] Elio Payne APRN.EXHIBITS COORDINATOR Work Phone: [facility] 06-02-2022 14:00-0400 Body weight 118.03 kg Elio Payne APRN.EXHIBITS COORDINATOR Work Phone: [facility] 04-27-2023 14:00-0400 Diastolic blood pressure 63 mm[Hg] Elio Payne BACK TENDER PULP DRIER.EXHIBITS COORDINATOR Work Phone: [facility] 06-02-2022 14:00-0400 Heart rate 77 /min Elio Payne BACK TENDER P[employer]P [employer]RIER.EXHIBITS COORDINATOR Work Phone: [facility] 06-02-2022 14:00-0400 Respiratory rate 18 /min Elio Payne BACK TENDER P[employer]P DRIER.EXHIBITS COORDINATOR Work Phone: [facility] 06-02-2022 14:00-0400 SaO2% (BldA) [Mass fraction] 93 % Elio Payne BACK TENDER P[employer]RI[employer].EXHIBITS COORDINATOR Work Phone: [facility] 06-02-2022 14:00-0400 Systolic blood pressure 118 mm[Hg] Elio Payne BACK TENDER PULP DRIER.EXHIBITS COORDINATOR Work Phone: [facility] 11-02-2021 12:50-0400 Body height 193 cm Nicolas Hwang MD Work Phone: [facility] 11-02-2021 12:50-0400 Body temperature 97.7 [degF] Nicolas Hwang MD Work Phone: [facility] 11-02-2021 12:50-0400 Body weight 119.39 kg Nicolas Hwang MD Work Phone: [facility] 11-02-2021 12:50-0400 Diastolic blood pressure 77 mm[Hg] Nicolas Hwang MD Work Phone: [facility] 11-02-2021 12:50-0400 Heart rate 72 /min Nicolas Hwang MD Work Phone: [facility] 11-02-2021 12:50-0400 Respiratory rate 18 /min Nicolas Hwang MD Work Phone: [facility] 11-02-2021 12:50-0400 SaO2% (BldA) [Mass fraction] 94 % Nicolas Hwang MD Work Phone: [facility] 11-02-2021 12:50-0400 Systolic blood pressure 140 mm[Hg] Nicolas Hwang MD Work Phone: [facility] 09-27-2021 10:00-0400 Blood Pressure Location Yosef GRIMES [facility] [place] 09-27-2021 10:00-0400 Diastolic blood pressure 79 mm[Hg] Yosef GRIMES [facility] [place] 09-27-2021 10:00-0400 Heart rate 67 /min Yosef GRIMES [facility] [place] 09-27-2021 10:00-0400 Respiratory rate 16 /min Yosef GRIMES [facility] [place] 09-27-2021 10:00-0400 Systolic blood pressure 114 mm[Hg] Yosef GRIMES [facility] [place] 11-13-2020 13:45-0400 Body height 193.04 cm Azucena Ginty Other [employer] Other 11-13-2020 13:45-0400 Body mass index (BMI) [Ratio] 32.25 kg/m2 Azucena Ginty Other [employer] Other 11-13-2020 13:45-0400 Body temperature 96.4 [degF] Azucena Ginty Other [employer] Other 11-13-2020 13:45-0400 Body weight 120.2 kg Azucena Ginty Other [employer] Other 11-13-2020 13:45-0400 SaO2% (BldA) [Mass fraction] 99 % Azucena Hui Other [employer] Other Encounters Encounter Date Encounter Type Care Provider Facility Start: 09-25-2025 ambulatory Shilpa L Parvez Facility: [facility] Start: 11-15-2024 ambulatory Yosef GRIMES Facili ty:[facility] Start: 09-26-2024 End: 09-26-2024 ambulatory Shlipa L Parvez Facility:[facility] Start: 06-04-2024 End: 06-04-2024 Office outpatient visit 15 minutes David Kumari MD Work Phone: Radiation Oncology Comment on above: Malignant neoplasm o f prostate (HCC) (Primary Dx) Start: 06-04-2024 End: 06-04-2024 ambulatory David KUMARI Facility:[facility] Start: 05-20-2024 End: 05-20-2024 Office outpatient visit 25 minutes Minoo Gill APRN.CNP Work Phone: Hematology/Oncology Comment on above: Monoclonal gammopath y (Primary Dx); Prostate cancer (HCC); Chronic renal insufficiency, stage 3 (moderate) (HCC) Start: 05-20-2024 End: 05-20-2024 ambulatory MINOO GILL Facility:[facility] Start: 05-16-2024 End: 05-29-2024 Telephone encounter Nicolas Hwang MD Work Phone: [facility] Start: 05-15-2024 End: 05-15-2024 ambulatory SHAHRIAR STEPHENSON Facility:[facility] Start: 05-07-2024 End: 05-07-2024 ambulatory SHAHRIAR STEPHENSON Facility:[facility] Start: 05-07-2024 End: 05-07-2024 Subsequent hospital visit by physician General Joseph Garcia Mc Work Phone: Radiology Start: 03-04-2024 End: 03-04-2024 ambulatory Yosef GRIMES Facility:[facility] Start: 03-04-2024 End: 03-04-2024 Patient encounter procedure Yosef GRIMES [facility] [place] Start: 02-28-2024 End: 02-28-2024 ambulatory Yosef GRIMES Facility:[facility] Start: 02-28-2024 End: 02-28-2024 Patient encounter procedure Yosef GRIMES [facility] Start: 02-22-2024 End: 02-22-2024 ambulatory Yosef Grimes [facility] Work Phone: Start: 02-22-2024 End: 02-22-2024 Departed Referred Yosef Grimes MD Work Phone: [facility] Start: 02-22-2024 End: 02-22-2024 ambulatory Yosef GRIMES Facility:[id number] Start: 01-30-2024 End: 01-30-2024 ambulatory Meño Bob Facility:[facility] Start: 01-30-2024 End: 01-30-2024 Patient encounter procedure Meño Bob [facility] Start: 01-26-2024 ambulatory Yosef GRIMES Facili ty:[facility] Start: 01-23-2024 End: 01-23-2024 ambulatory Meño Bob Facility:[facility] Start: 01-23-2024 End: 01-23-2024 Patient encounter procedure [facility] Start: 01-19-2024 End: 01-19-2024 ambulatory YOSEF GRIMES Facility:[facility] Start: 01-19-2024 End: 01-19-2024 Subsequent hospital visit by physician Arrival Time Radiology Work Phone: Radiology Pet CT Start: 01-13-2024 Non-patient / Non-visit Mateusz Grimes MD Work Phone: [facility] Work Phone: Start: 01-10-2024 End: 01-10-2024 ambulatory Yosef GRIMES Facility:[facility] [place] Start: 01-10-2024 End: 01-10-2024 Patient encounter procedure Yosef GRIMES [facility] Start: 01-08-2024 End: 01-08-2024 ambulatory Yosef GRIMES Facility[facility] Start: 01-08-2024 End: 01-08-2024 Lab Drop off Yosef GRIMES [facility] Start: 01-08-2024 End: 01-08-2024 ambulatory Yosef GRIMES Facility:[facility] Start: 01-08-2024 End: 01-08-2024 Patient encounter procedure Yosef GRIMES [facility] Start: 01-01-2024 End: 01-01-2024 Lab Drop off Yosef Alivia CORNELIO [facility] Start: 01-01-2024 End: 01-01-2024 ambulatory Yosef Alivia CORNELIO Facility[facility] Start: 01-01-2024 End: 01-01-2024 Patient encounter procedure Yosef R GRIMES [facility] Start: 12-29-2023 End: 01-01-2024 Telephone encounter David Kumari MD Work Phone: Radiation Oncology Comment on above: Hematuria Start: 11-24-2023 End: 11-24-2023 ambulatory Yosef GRIMES [facility] Start: 11-24-2023 End: 11-24-2023 Patient encounter procedure Yosef GRIMES [facility] Start: 11-16-2023 End: 11-16-2023 ambulatory Nicolas Hwang MD Work Phone: Hematology/Oncology Comment on above: Prostate cancer (HCC ) (Primary Dx); Monoclonal gammopathy Start: 11-16-2023 End: 11-16-2023 Patient encounter procedure Nicolas Hwang MD Work Phone: Hematology/Oncology Comment on above: Malignant neoplasm o f prostate (HCC) (Primary Dx) Start: 11-09-2023 End: 11-09-2023 ambulatory SHAHRIAR STEPHENSON Facility:[facility] Start: 10-23-2023 End: 10-23-2023 ambulatory GRADUATE ADVISOR Shilpa L Parvez Facility:[facility] Start: 09-27-2023 End: 09-27-2023 ambulatory GRADUATE ADVISOR Shilpa L Parvez Facility:[facility] Start: 05-22-2023 End: 05-22-2023 ambulatory Yosef GRIMES Facility:[facility] Start: 05-22-2023 End: 05-22-2023 Patient encounter procedure Yosef R CORNELIO [facility] Start: 05-18-2023 End: 05-18-2023 ambulatory Elio Payne APRN.EXHIBITS COORDINATOR Work Phone: Hematology/Oncology Comment on above: Prostate cancer (HCC ) (Primary Dx); Monoclonal gammopathy; Chronic renal insufficiency, stage 3 (moderate) (HCC); Essential hypertension Start: 05-18-2023 End: 05-18-2023 Patient encounter procedure Elio Payne APRN.EXHIBITS COORDINATOR Work Phone: [facility] Comment on above: Malignant neoplasm o f prostate (HCC) (Primary Dx) Start: 05-10-2023 Telephone encounter Elio becerril APRN.EXHIBITS COORDINATOR Work Phone: Hematology/Oncology Comment on above: Lab [...] Start: 01-16-2023 End: 01-16-2023 Refill Rose AndradeNickgutierrez [facility] Work Phone: Hematology/Oncology Comment on above: Refill [...] encounter David Kumari MD Work Phone: [facility] Comment on above: Appointment Confirma tion [...] encounter procedure Yosef GRIMES [facility] Start: 12-01-2022 ambulatory Letty Graves TRIPE COOKER Radia tion Oncology Comment on above: Patient Education Start: 11-28-2022 End: 11-28-2022 Subsequent hospital visit by physician Mri 6 Radio Main Q (I-Stat/1.5t/3t) Work Phone: MRI Q Comment on above: Malignant neoplasm o f prostate (HCC) [C61] Start: 11-22-2022 Patient encounter procedure [facility] Prov ider [facility] Department Start: 11-18-2022 End: 11-18-2022 Patient encounter procedure Yosef GRIMES [facility] Start: 11-15-2022 End: 11-15-2022 Patient encounter procedure G Damien Kumari MD Work Phone: Radiation Oncology Comment on above: Malignant neoplasm o f prostate (HCC) (Primary Dx) Start: 11-01-2022 End: 11-01-2022 Lab Drop off Yosfe GRIMES [facility] Start: 10-28-2022 End: 10-28-2022 Subsequent hospital visit by physician Arrival Time Radiology Work Phone: Radiology Pet CT Comment on above: Rising PSA following treatment for malignant neoplasm of prostate [R97.21] Start: 10-09-2022 Office outpatient vi sit 15 minutes Angelina Holder [facility] Start: 10-09-2022 End: 10-09-2022 ambulatory Angelina Holder Other [employer] Other Start: 10-09-2022 End: 10-09-2022 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 Angelina Holder Work Phone: [facility] [place] Work Phone: Start: 10-06-2022 Telephone encounter Nicolas schneider MD Work Phone: [facility] Comment on above: Nm Pet Request Start: 10-03-2022 End: 10-03-2022 Patient encounter procedure Yosef GRIMES [facility] Start: 06-02-2022 End: 06-02-2022 ambulatory Elio Payne BACK TENDER PULP DRIER.EXHIBITS COORDINATOR Work Phone: Hematology/Oncology Comment on above: Monoclonal gammopath y (Primary Dx); Prostate cancer (HCC); Essential hypertension; Chronic renal insufficiency, stage 3 (moderate) (HCC) Start: 06-02-2022 End: 06-02-2022 Patient encounter procedure Elio Payne BACK TENDER PULP DRIER.EXHIBITS COORDINATOR Work Phone: [facility] Start: 11-08-2021 Telephone encounter Shima Hutchison Hematology/Oncology Comment on above: Results Start: 11-02-2021 End: 11-02-2021 ambulatory Nicolas Hwang MD Work Phone: Hematology/Oncology Comment on above: Monoclonal gammopath y (Primary Dx) Start: 11-02-2021 End: 11-02-2021 Patient encounter procedure Nicolas Hwang MD Work Phone: [facility] Start: 10-21-2021 Telephone encounter Nicolas schneider MD Work Phone: Hematology/Oncology Comment on above: Lab Orders Start: 10-13-2021 End: 10-14-2021 ambulatory KAREN GABRIELA Facility:[facility] Start: 09-27-2021 End: 09-27-2021 Patient encounter procedure Yosef GRIMES [facility] Start: 09-14-2021 End: 09-15-[address] YOSEF GRIMES Facility:[facility] Start: 08-16-2021 End: 08-16-[address] GURMEET CHANEL Facility:[facility] Start: 08-02-2021 Telephone encounter Nicolas schneider MD Work Phone: [facility] Comment on above: Call Back 48 Hours Start: 07-20-2021 End: 07-21-[address] GURMEET CHANEL Facility:[facility] Start: 07-09-2021 End: 07-10-[address] GURMEET CHANEL Facility:[facility] Start: 05-14-2021 Telephone encounter 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 Brenda Kline Start: 05-10-2021 Adult depression [...] Detail Author Start: 05-16-2027 [facility] Start: 11-15-2026 [facility] Start: 05-17-2026 Diabetes Screening Diabetes Screenne [facility] Start: 01-19-2026 Diabetes Screening Diabetes Screenne g [facility] Start: 01-05-2026 [facility] Start: 12-08-2025 Diabetes Screening Diabetes Screenne g [facility] Start: 06-02-2025 DIABETES SCREEN DIABETES SCREEN [facility] Start: 06-02-2025 Diabetes Screening Diabetes Screenin g [facility] Start: 11-13-2024 End: 11-13-2024 Follow-up encounter 11/13/2024 1:30 PM EDT Visit (SP) Office Hematology/Oncology [address] [place] [address] [place] [address] Minoo Gill APRN.[facility] [address] [place] [address] 6 month follow up with lab Hematology/Oncology Comment on above: 6 month follow up [facility] lab Start: 11-13-2024 End: 11-13-2024 Patient encounter procedure [facility] Comment on above: 6 month follow up [facility] lab Start: 11-12-2024 End: 02-11-2025 Prostate specific Ag [Mass/volume] in Serum or Plasma PROSTATE-SPECIFIC ANTIGEN DIAGNOSTIC Lab Routine Malignant neoplasm of prostate (HCC) Expected: 11/12/2024, Expires: 02/11/2025 [facility] Work Phone: Comment on above: Expected: 11/12/2024 , Expires: 02/11/2025 Start: 11-12-2024 End: 11-12-2024 Patient encounter procedure 11/12/2024 9:00 AM EDT Office Visit [facility] [address] [place] [address] 6 month follow up with lab [facility] Comment on above: 6 month follow up wi th lab Start: 11-02-2024 DIABETES SCREEN DIABETES SCREEN [facility] Start: 10-24-2024 ambulatory Ambulatory Facility:[facility] Start: 06-04-2024 End: 06-04-2024 Patient encounter procedure 06/04/2024 3:00 PM EDT Office Visit Radiation Oncology [address] [place] [address] David Kumari MD [address] [place] [address] 6 month follow up Radiation Oncology Comment on above: 6 month follow up Start: 05-20-2024 ambulatory Ambulatory Facility:[facility] Start: 05-16-2024 End: 08-15-2024 Prostate specific Ag [Mass/volume] in Serum or Plasma PROSTATE-SPECIFIC ANTIGEN DIAGNOSTIC Lab Routine Malignant neoplasm of prostate (HCC) Expected: 05/16/2024 (Approximate), Expires: 08/15/2024 [facility] Work Phone: Comment on above: Expected: 05/16/2024 (Approximate), Expires: 08/15/2024 Start: 05-16-2024 End: 05-16-2024 Follow-up encounter 05/16/2024 11:40 AM EDT Visit (SP) Office Hematology/Oncology [address] [place] [address] Nicolas Hwang MD [address] [place] [address] 6 month follow up Hematology/Oncology Comment on above: 6 month follow up Start: 05-16-2024 End: 05-16-2024 Patient encounter procedure 05/16/2024 11:00 AM EDT Office Visit Radiation Oncology [address] [place] [address] David Kumari MD [address] [place] [address] Moved from 05/14 Radiation Oncology Comment on above: Moved from 05/14 Start: 05-14-2024 End: 05-14-2024 Follow-up encounter 05/14/2024 2:00 PM EDT Visit (SP) Office Hematology/Oncology [address] [place] [address] Nicolas Hwang MD [address] [place] [address] 6 month follow up Hematology/Oncology Comment on above: 6 month follow up Start: 05-14-2024 End: 05-14-2024 Patient encounter procedure 05/14/2024 1:00 PM EDT Office Visit Radiation Oncology [address] [place] [address] David Kumari MD [address] [place] [address] 6 month follow up Radiation Oncology Comment on above: 6 month follow up Start: 05-10-2024 DIABETES SCREEN DIABETES SCREEN [facility] Start: 05-07-2024 End: 05-07-2024 Patient encounter procedure 05/07/2024 1:00 PM EDT Office Visit [facility] [address] [place] [place] [address] lab [facility] Comment on above: lab Start: 02-07-2024 Advance Directive Discussion Advance Directive Discussion [facility] Start: 11-17-2023 End: 02-16-2024 Prostate specific Ag [Mass/volume] in Serum or Plasma PROSTATE-SPECIFIC ANTIGEN DIAGNOSTIC Lab Routine Malignant neoplasm of prostate (HCC) Expected: 11/17/2023 (Approximate), Expires: 02/16/2024 [facility] Work Phone: Comment on above: Expected: 11/17/2023 (Approximate), Expires: 02/16/2024 Start: 11-16-2023 End: 11-16-2023 Follow-up encounter 11/16/2023 3:00 PM EDT Visit (SP) Office Hematology/Oncology [address] [place] [address] Nicolas Hwang MD [address] [place] [address] 6 month follow up lab Hematology/Oncology Comment on above: 6 month follow up la b Start: 11-16-2023 End: 11-16-2023 Patient encounter procedure 11/16/2023 2:15 PM EDT Office Visit Radiation Oncology [address] [place] [address] David Kumari MD [address] [place] [address] Followup Radiation Oncology Comment on above: Followup Start: 11-16-2023 End: 02-15-2024 MONOCLONAL PROTEIN, SERUM (BLOOD) [facility] Comment on above: Expected: 11/16/2023 , Expires: 02/15/2024 Start: 11-16-2023 End: 02-15-2024 PROT ELECT SERUM WITH FAUSTINA AND INTERP [facility] Work Phone: Comment on above: Expected: 11/16/2023 , Expires: 02/15/2024 Start: 11-09-2023 End: 11-09-2023 Patient encounter procedure 11/09/2023 1:00 PM EDT Office Visit [facility] [address] [place] [address] Lab [facility] Comment on above: Lab Start: 10-30-2023 DIABETES SCREEN DIABETES SCREEN [facility] Start: 10-08-2023 Covid-19 Vaccine () Covid-19 Vaccine () [facility] Start: 10-08-2023 Covid-19 Vaccine () Covid-19 Vaccine () [facility] Start: 10-08-2023 Influenza vaccination [facility] Start: 06-16-2023 End: 09-15-2023 MONOCLONAL PROTEIN, SERUM (BLOOD) MONOCLONAL PROTEIN, SERUM (BLOOD) Lab Routine Prostate cancer (HCC) Monoclonal gammopathy Chronic renal insufficiency, stage 3 (moderate) (HCC) Essential hypertension Expected: 06/16/2023, Expires: 09/15/2023 [facility] Work Phone: Comment on above: Expected: 06/16/2023 , Expires: 09/15/2023 Start: 05-19-2023 End: 08-18-2023 CBC W Auto Differential panel - Blood COMPLETE BLOOD COUNT AND DIFFERENTIAL Lab Routine Prostate cancer (HCC) Monoclonal gammopathy Chronic renal insufficiency, stage 3 (moderate) (HCC) Essential hypertension Expected: 05/19/2023, Expires: 08/18/2023 [facility] Work Phone: Comment on above: Expected: 05/19/2023 , Expires: 08/18/2023 Start: 05-19-2023 End: 08-18-2023 Comprehensive metabolic 2000 panel - Serum or Plasma COMPREHENSIVE METABOLIC PANEL Lab Routine Prostate cancer (HCC) Monoclonal gammopathy Chronic renal insufficiency, stage 3 (moderate) (HCC) Essential hypertension Expected: 05/19/2023, Expires: 08/18/2023 [facility] Work Phone: Comment on above: Expected: 05/19/2023 , Expires: 08/18/2023 Start: 05-19-2023 End: 08-18-2023 Prostate specific Ag [Mass/volume] in Serum or Plasma PROSTATE-SPECIFIC ANTIGEN DIAGNOSTIC Lab Routine Prostate cancer (HCC) Monoclonal gammopathy Chronic renal insufficiency, stage 3 (moderate) (HCC) Essential hypertension Expected: 05/19/2023, Expires: 08/18/2023 [facility] Work Phone: Comment on above: Expected: 05/19/2023 , Expires: 08/18/2023 Start: 05-19-2023 End: 08-18-2023 PROTEIN ELECTROPHORESIS SERUM W/INTERP PROTEIN ELECTROPHORESIS SERUM W/INTERP Lab Routine Prostate cancer (HCC) Monoclonal gammopathy Chronic renal insufficiency, stage 3 (moderate) (HCC) Essential hypertension Expected: 05/19/2023, Expires: 08/18/2023 [facility] Work Phone: Comment on above: Expected: 05/19/2023 , Expires: 08/18/2023 Start: 05-18-2023 End: 08-17-2023 CBC W Auto Differential panel - Blood CBC + DIFF Lab Routine Prostate cancer (HCC) Monoclonal gammopathy Expected: 05/18/2023, Expires: 08/17/2023 [facility] Work Phone: Comment on above: Expected: 05/18/2023 , Expires: 08/17/2023 Start: 05-18-2023 End: 08-17-2023 Comprehensive metabolic 2000 panel - Serum or Plasma COMP METABOLIC PANEL Lab Routine Prostate cancer (HCC) Monoclonal gammopathy Expected: 05/18/2023, Expires: 08/17/2023 [facility] Work Phone: Comment on above: Expected: 05/18/2023 , Expires: 08/17/2023 Start: 05-18-2023 End: 08-17-2023 MONOCLONAL PROTEIN, SERUM (BLOOD) MONOCLONAL PROTEIN, SERUM (BLOOD) Lab Routine Prostate cancer (HCC) Monoclonal gammopathy Expected: 05/18/2023, Expires: 08/17/2023 [facility] Work Phone: Comment on above: Expected: 05/18/2023 , Expires: 08/17/2023 Start: 05-18-2023 End: 08-17-2023 Prostate specific Ag [Mass/volume] in Serum or Plasma PSA/PROSTSPECAG DIAG Lab Routine Prostate cancer (HCC) Monoclonal gammopathy Expected: 05/18/2023, Expires: 08/17/2023 [facility] Work Phone: Comment on above: Expected: 05/18/2023 , Expires: 08/17/2023 Start: 05-18-2023 End: 08-17-2023 PROTEIN ELECTROPHORESIS SERUM W/INTERP PROTEIN ELECTROPHORESIS SERUM W/INTERP Lab Routine Prostate cancer (HCC) Monoclonal gammopathy Expected: 05/18/2023, Expires: 08/17/2023 [facility] Work Phone: Comment on above: Expected: 05/18/2023 , Expires: 08/17/2023 Start: 02-06-2023 Advance Directive Discussion Advance Directive Discussion [facility] Start: 02-06-2023 Behavioral Health Screening Behavioral Health Screening [facility] Start: 01-05-2023 End: 04-06-2023 MONOCLONAL PROTEIN, SERUM (BLOOD) [facility] Work Phone: Comment on above: Expected: 01/05/2023 , Expires: 04/06/2023 Start: 01-05-2023 End: 04-06-2023 PROT ELECT SERUM WITH FAUSTINA AND INTERP [facility] Work Phone: Comment on above: Expected: 01/05/2023 , Expires: 04/06/2023 Start: 11-02-2022 End: 01-02-2023 CBC W Auto Differential panel - Blood CBC + DIFF Lab Routine Monoclonal gammopathy Prostate cancer (HCC) Essential hypertension Chronic renal insufficiency, stage 3 (moderate) (HCC) Expected: 11/02/2022, Expires: 01/02/2023 [facility] Work Phone: Comment on above: Expected: 11/02/2022 , Expires: 01/02/2023 Start: 11-02-2022 End: 01-02-2023 Comprehensive metabolic 2000 panel - Serum or Plasma COMP METABOLIC PANEL Lab Routine Monoclonal gammopathy Prostate cancer (HCC) Essential hypertension Chronic renal insufficiency, stage 3 (moderate) (HCC) Expected: 11/02/2022, Expires: 01/02/2023 [facility] Work Phone: Comment on above: Expected: 11/02/2022 , Expires: 01/02/2023 Start: 11-02-2022 End: 01-02-2023 MONOCLONAL PROTEIN, SERUM (BLOOD) MONOCLONAL PROTEIN, SERUM (BLOOD) Lab Routine Monoclonal gammopathy Prostate cancer (HCC) Essential hypertension Chronic renal insufficiency, stage 3 (moderate) (HCC) Expected: 11/02/2022, Expires: 01/02/2023 [facility] Work Phone: Comment on above: Expected: 11/02/2022 , Expires: 01/02/2023 Start: 11-02-2022 End: 01-02-2023 PROT ELECT SERUM WITH FAUSTINA AND INTERP PROT ELECT SERUM WITH FAUSTINA AND INTERP Lab Routine Monoclonal gammopathy Prostate cancer (HCC) Essential hypertension Chronic renal insufficiency, stage 3 (moderate) (HCC) Expected: 11/02/2022, Expires: 01/02/2023 [facility] Work Phone: Comment on above: Expected: 11/02/2022 , Expires: 01/02/2023 Start: 10-09-2022 Bacteria identified in Urine by Culture [facility] Start: 10-07-2022 Covid-19 Vaccine () Covid-19 Vaccine () [facility] Start: 10-07-2022 Influenza vaccination [facility] Start: 06-02-2022 End: 08-02-2022 CBC W Auto Differential panel - Blood CBC + DIFF Lab Routine Monoclonal gammopathy Expected: 06/02/2022, Expires: 08/02/2022 [facility] Work Phone: Comment on above: Expected: 06/02/2022 , Expires: 08/02/2022 Start: 06-02-2022 End: 08-02-2022 Comprehensive metabolic 2000 panel - Serum or Plasma COMP METABOLIC PANEL Lab Routine Monoclonal gammopathy Expected: 06/02/2022, Expires: 08/02/2022 [facility] Work Phone: Comment on above: Expected: 06/02/2022 , Expires: 08/02/2022 Start: 06-02-2022 End: 08-02-2022 MONOCLONAL PROTEIN, SERUM (BLOOD) MONOCLONAL PROTEIN, SERUM (BLOOD) Lab Routine Monoclonal gammopathy Expected: 06/02/2022, Expires: 08/02/2022 [facility] Work Phone: Comment on above: Expected: 06/02/2022 , Expires: 08/02/2022 Start: 06-02-2022 End: 08-02-2022 PROT ELECT SERUM WITH FAUSTINA AND INTERP PROT ELECT SERUM WITH FAUSTINA AND INTERP Lab Routine Monoclonal gammopathy Expected: 06/02/2022, Expires: 08/02/2022 [facility] Work Phone: Comment on above: Expected: 06/02/2022 , Expires: 08/02/2022 Start: 05-10-2022 Adult depression screening assessment DEPRESSION SCREENING [facility] Start: 02-06-2022 ADVANCE DIRECTIVE DISCUSSION ADVANCE DIRECTIVE DISCUSSION [facility] Start: 02-06-2022 DEPRESSION ASSESSMENT DEPRESSION ASS ESSMENT [facility] Start: 11-02-2021 End: 01-02-2022 CBC W Auto Differential panel - Blood CBC + DIFF Lab Routine Monoclonal gammopathy Expected: 11/02/2021, Expires: 01/02/2022 [facility] Work Phone: Comment on above: Expected: 11/02/2021 , Expires: 01/02/2022 Start: 11-02-2021 End: 01-02-2022 Comprehensive metabolic 2000 panel - Serum or Plasma COMP METABOLIC PANEL Lab Routine Monoclonal gammopathy Expected: 11/02/2021, Expires: 01/02/2022 [facility] Work Phone: Comment on above: Expected: 11/02/2021 , Expires: 01/02/2022 Start: 11-02-2021 End: 01-02-2022 PROT ELECT SERUM WITH FAUSTINA AND INTERP PROT ELECT SERUM WITH FAUSTINA AND INTERP Lab Routine Monoclonal gammopathy Expected: 11/02/2021, Expires: 01/02/2022 [facility] Work Phone: Comment on above: Expected: 11/02/2021 , Expires: 01/02/2022 Start: 10-29-2021 Adult depression screening assessment DEPRESSION SCREENING [facility] Start: 10-07-2021 Influenza vaccination [facility] Start: 2021 RSV Vaccine (1 - 1-d ose 75+ series) RSV Vaccine (1 - 1-dose 75+ series) [facility] Start: 05-10-2021 End: 07-10-2021 CBC W Auto Differential panel - Blood CBC + DIFF Lab Routine Monoclonal gammopathy Prostate cancer (HCC) Expected: 05/10/2021, Expires: 07/10/2021 [facility] Work Phone: Comment on above: Expected: 05/10/2021 , Expires: 07/10/2021 Start: 02-06-2021 ADVANCE DIRECTIVE DISCUSSION ADVANCE DIRECTIVE DISCUSSION [facility] Start: 02-06-2021 DEPRESSION ASSESSMENT DEPRESSION ASS ESSMENT [facility] Start: 10-07-2020 Influenza vaccination INFLUENZA (#1) [facility] Start: 08-27-2020 COVID-19 VACCINE (3 - Booster) COVID-19 VACCINE (3 - Booster) [facility] Start: 05-25-2020 COVID-19 VACCINE (3 - Booster) COVID-19 VACCINE (3 - Booster) [facility] Start: 05-25-2020 COVID-19 VACCINE (3 - Mixed Product series) COVID-19 VACCINE (3 - Mixed Product series) [facility] Start: 10-08-2019 Influenza vaccination INFLUENZA (#1) [facility] Start: 02-06-2013 Colonoscopy COLONOSCOPY [facility] Start: 02-06-2013 COLORECTAL CANCER SCREENING COLORECTAL CANCER SCREENING [facility] Start: 09-03-2011 ADVANCE DIRECTIVE DISCUSSION ADVANCE DIRECTIVE DISCUSSION [facility] Start: 09-03-2011 Pneumococcal Vaccine : 50+ (1 of 1 - PCV) Pneumococcal Vaccine: 50+ (1 of 1 - PCV) [facility] Start: 09-03-2011 Pneumococcal Vaccine : 65+ (1 - PCV) Pneumococcal Vaccine: 65+ (1 - PCV) [facility] Start: 09-03-2011 Pneumococcal Vaccine : 65+ (1 of 1 - PCV) Pneumococcal Vaccine: 65+ (1 of 1 - PCV) [facility] Start: 09-03-2011 PNEUMOCOCCAL: 65+ (1 - PCV) PNEUMOCOCCAL: 65+ (1 - PCV) [facility] Start: 09-03-2011 PNEUMOVAX AGE 65 AND OVER WITH 5YR LOOKBACK (#1) PNEUMOVAX AGE 65 AND OVER WITH 5YR LOOKBACK (#1) [facility] Start: 2006 RSV Vaccine (1 - 1-d ose 60+ series) RSV Vaccine (1 - 1-dose 60+ series) [facility] Start: 1996 Pneumococcal Vaccine : 50+ (1 of 1 - PCV) Pneumococcal Vaccine: 50+ (1 of 1 - PCV) [facility] Start: 1996 SHINGRIX VACCINE (1 of 2) GOLDSMITH GRIX VACCINE (1 of 2) [facility] Start: 1996 Tuberculosis screening COLOREC AUBRIE CANCER SCREENING,SEE MODIFIER [facility] Start: 09-03-1991 COLOGUARD (FIT-DNA) COLOGUARD (FIT-D NA) [facility] Start: 09-03-[address] COLONOGRAPHY [facility] Start: 09-03-1991 DIABETES SCREEN DIABETES SCREEN [facility] Start: 09-03-1991 FECAL OCCULT BLOOD FECAL OCCULT BLOO D [facility] Start: 09-03-1991 SIGMOIDOSCOPY SIGMOIDOSCOPY [facility] Start: 1981 LIPID SCREEN LIPID SCREEN [facility] Start: 1965 Urine microalbumin profile [facility] Start: 1964 Anxiety Screening Anxiety Screening [facility] Start: 1964 Depression Screening Depression Scre ening [facility] Start: 1964 HEPATITIS C SCREENING HEPATITIS C SC [facility] Start: 1964 Hepatitis C screening Hepatitis C [facility] CT SIM PLANNING RADI ATION ONCOLOGY CT SIM PLANNING RADIATION ONCOLOGY Radiology Routine Malignant neoplasm of prostate (HCC) Ordered: 12/15/2022 [facility] Work Phone: Comment on above: Ordered: 12/15/2022 End: 12-15-2023 MRI PROSTATE WO/W IVCON MRI PROSTATE WO/W IVCON Radiology Routine Malignant neoplasm of prostate (HCC) 1 Occurrences starting 11/15/2022 until 12/15/2023 [facility] Work Phone: Comment on above: 1 Occurrences starti ng 11/15/2022 until 12/15/2023 [facility] Immunizations Immunization Date Immunization Notes Care Provider Fa cility 03-30-2020 COVID-19 vaccine (UNSPECIFIED) Nicolas Hwang MD Work Phone: [facility] 03-08-2020 COVID-19 vaccine (UNSPECIFIED) Nicolas Hwang MD Work Phone: [facility] NEGATED: Highlighted row has not occurred!10-23-2023 influenza virus vaccine, unspecified formulation Yosef GRIMES [facility] [place] Payers Date Payer Category Payer Self-pay 2020 Medicare AETNA MEDICARE A ETNA MEDICARE PPO [id number] 2020-Present [phone] [address] [place] [address] PPO [id number] 2020 Medicare AETNA MEDICARE A ETNA MEDICARE PPO [id number] 2020-Present [phone] [address] [place] [address] PPO [id number] 2020 Medicare (Managed Care) [place] [id number] 2019 Medicare AETNA MEDICARE A ETNA MEDICARE PPO [id number] 2019-Present PPO [id number] 1959 Medicare [id number] 1945 Unknown [id number] 2.16.840.1.588895.3.579.2. 593 1946 Unknown [id number] 2.16.840.1.608229.3.579.2. 593 1946 Unknown [id number] 2.16.840.1.836423.3.579.2. 593 1946 Unknown [id number] 2.16.840.1.487356.3.579.2. 593 1946 Unknown [id number] 2.16.840.1.885076.3.579.2. 593 1946 Unknown [id number] 2.16.840.1.111010.3.579.2. 72 1946 Unknown [id number] 2.16.840.1.836745.3.579.2. 727 1946 Unknown [id number] 2.16.840.1.853662.3.579.2. 72 1946 Unknown [id number] 2.16.840.1.030342.3.579.2. 727 1946 Unknown [id number] 2.16.840.1.484409.3.579.2. 727 1946 Unknown [id number] 2.16.840.1.597444.3.579.2. 727 1946 Unknown [id number] 2.16.840.1.898217.3.579.2. 72 1946 Unknown [id number] 2.16.840.1.751067.3.579.2. 727 1946 Unknown [id number] 2.16.840.1.508404.3.579.2. 72 1946 Unknown [id number] 2.16840.1.381754.3.579.2. 1946 Unknown [id number] 2.16840.1.978253.3.579.2 1946 Unknown [id number] 2.16.840.1.567964.3.579.2. 1946 Unknown [id number] 2.16840.1.212794.3.579.2 1946 Unknown [id number] 2.16840.1.401010.3.579.2 1946 Unknown [id number] 2.840.1.186026.3.579.2 1946 Unknown [id number] 2.840.1.981733.3.579.2 1946 Unknown [id number] 2.840.1.394229.3.579.2 1946 Unknown [id number] 2.840.1.857740.3.579.2 1946 Unknown [id number] 2.16840.1.232663.3.579.2 1946 Unknown [id number] 2.840.1.428235.3.579.2 1946 Unknown [id number] 2.840.1.195415.3.579.2 1946 Unknown [id number] 2.16840.1.132003.3.579.2. 727 Medicare [id number] 2.16840.1.638542.19 Unknown [id number] 2.840.1.991906.3.579.2. 531 Social History Date Type Detail Facility Tobacco smoking status COIS Unknown if ever smoked [facility] Start: 1945 Sex Assigned At Not on file [facility] Start: 10-22-2019 End: 11-02-2021 Tobacco smoking status NHIS Never smoked tobacco [facility] Comment on above: patient never a smok er denies use Start: 10-22-2019 End: 11-02-2021 Tobacco use and exposure Smokeless tobacco non-user [facility] Start: 10-29-2020 End: 06-04-2024 Alcohol intake Ex-drinker (finding) [facility] Start: 04-30-2021 End: 11-02-2021 Exposure to SARS-CoV-2 (event) Not sure [facility] Start: 06-02-2022 End: 11-15-2022 Sex Assigned At [facility] [employer] Other History of tobacco use Passive smoker [facility] Tobacco smoking status Never [facility] Comment on above: patient never a smok er denies use Start: 06-02-2022 End: 11-15-2022 History of Social function [facility] Start: 1945 Sex Assigned At Male F [facility] Start: 02-24-2024 Sex Male (finding) [facility] Functional Status Date Assessment Result Facility 03-04-2024 Functional Status N/A [facility] 01-23-2024 Functional Status N/A [facility] 01-10-2024 Functional Status N/A [facility] 01-08-2024 Functional Status N/A [facility] 11-24-2023 Functional Status N/A [facility] 05-22-2023 Functional Status N/A [facility] 12-02-2022 Functional Status N/A [facility] 11-18-2022 Functional Status N/A [facility] 10-03-2022 Functional Status N/A [facility] 09-27-2021 N/A [facility] Clinical Notes 05-21-2019 to 06-04-2024 David Kumari MD - 06/04/2024 2:55 PM Letty Covarrubias RN - 06/04/2024 2:53 PM Minoo Byrne APRN.EXHIBITS COORDINATOR - 05/20/2024 2:00 PM Nancy Bowen, RT(R) - 05/07/2024 1:00 PM EDT Note Date & Type Note Facility 06-04-2024 Note HNO ID: [id number] Author: David KUMARI MD Service: ? Author [...] ASSESSMENT/PLAN: Prostate adenocarcinoma, initial PSA 7.5, biopsy Ancramdale score 4 + 3 = 7 (grade [...] Kumari MD cc: Shahriar Stephenson [address] [place] [address] No referring provider defined for this encounter. [facility] 06-04-2024 History of Present illness Narrative Radiation Oncology - Follow Up Note PATIENT NAME: Adolph Johns PATIENT DIAGNOSIS: Prostate adenocarcinoma, initial PSA 7.5, biopsy [place] score 4 + 3 = 7 (grade [...] ASSESSMENT/PLAN: Prostate adenocarcinoma, initial PSA 7.5, biopsy [place] score 4 + 3 = 7 (grade [...] by: David Kumari MD cc: Shahriar Stephenson [address] [place] [address] No referring provider defined for this encounter. AUA= 7 documented in this encounter [facility] 06-04-2024 Note HNO ID: [id number] Author: LETTY BARAHONA RN Service: ? Author Type: Registered Nurse Type: Progress Notes Filed: 06/07/2024 10:34 Note Text: AUA= 7 [facility] 05-20-2024 History of Present illness Narrative Images [...] No difficulties with urination. Has returned from [place]! Labs stable. MEDICATIONS: abiraterone 250 mg tablet [...] or petechiae. PATHOLOGY: 11/10/2022 Bladder tumor, TURBT ([facility]) Metastatic poorly differentiated adenocarcinoma, consistent with [...] lesion. No comparison study. 10/28/2019 Skeletal survey ([facility]) Subtle oval slightly lytic-appearing lesion within [...] management per PCP/nephrology. . Minoo Gill APRN, COAT FINISHER-C, OCN [facility] Provided at: [place], [place] documented in this encounter [facility] 05-20-2024 Note HNO ID: [id number] Author: MINOO GILL APRN.NORBERTO Service: ? Author [...] No difficulties with urination. Has returned from [place]! Labs stable. MEDICATIONS: abiraterone 250 mg tablet [...] or petechiae. PATHOLOGY: 11/10/2022 Bladder tumor, TURBT ([facility]) Metastatic poorly differentiated adenocarcinoma, consistent with [...] lesion. No comparison study. 10/28/2019 Skeletal survey ([facility]) Subtle oval slightly lytic-appearing lesion within the right femoral neck, nonspecific and may repr (more content not included)... [facility] 05-20-2024 Note Patient Education Oncology Hormone Suppression [...] cancer. Where to find more information ??? [place] [employer]: www.cancer.org ??? National Cancer Bearden: www.cancer.gov Contact a health care provider if: [...] confused. ??? You (more content not included)... [facility] 05-07-2024 History of Present illness Narrative [...] PATIENT PRESENTS WITH AN IMPLANTABLE OR ATTACHED ORTHOPAEDIC DOCTOR: No RADIOLOGY DEPARTMENT: General X-ray: Exam(s) Completed: Abdomen X-Ray: Abdomen PERIPHERAL IV DATA: Not applicable SIGNED BY: RT Jace(Alivia) May 07, 2024 1:20 PM documented in this encounter [facility] 05-07-2024 Note HNO ID: [id number] Author: NANCY SAENZ RT(R) Service: ? Author [...] PATIENT PRESENTS WITH AN IMPLANTABLE OR ATTACHED ORTHOPAEDIC DOCTOR: No RADIOLOGY DEPARTMENT: General X-ray: Exam(s) Completed: Abdomen X-Ray: Abdomen PERIPHERAL IV DATA: Not applicable SIGNED BY: RT Jace(Alivia) May 07, 2024 1:20 PM [facility] 03-04-2024 Hospital Discharge instructions Patient Education 03/04/2024 [...] including vitamins, herbs, eye drops, creams, and skid-juv-rjqkxsm medicines. Any problems you or family members [...] provider tells you to take them. Taking jgye-mux-eylllax medicines, vitamins, herbs, and supplements. Tests You [...] Follow these instructions at home: Medicines Take empj-qhq-oczfudi and prescription medicines only as told by [...] provider. Document Revised: 10/06/2021 Document Reviewed: 09/04/2020 [employer] Patient Education 2023 [employer]. 03/04/2024 10:49:40 Prostate Cancer Screening Prostate Cancer [...] treatment? Where to find more information The [employer] Cancer Society: www.cancer.org [employer] Association: www.auanet.org Contact a health care [...] provider. Document Revised: 07/19/2021 Document Reviewed: 07/19/2021 [employer] Patient Education 2023 [employer]. Follow Up Care 02/27/2024 15:41:35 With:CORNELIO ROSARIO, Yosef Bunch, URL Address: [facility] [address], [place] [address] [phone] When: Unknown Comments:Has f/u 05/20/24 w/ PSA and Justin and JOSE, also to schedule cysto [facility] 03-04-2024 Note Patient Education Oncology Prostate [...] Where to find more information ??? The [employer] Cancer Society: www.cancer.org ??? [employer] Association: www.auanet.org Contact a health care [...] The prostate gland (more content not included)... [facility] 02-01-2024 Note Echocardiology Procedure Exam Date/Time Accession # Ordering Dr. Decker Transthoracic w/ 01/30/2024 11:56 EST [id number] Bob ROSARIO, Meño Eckert CPT code 08268 C8929 Reason for Exam (Echo Transthoracic w/ Contrast) Abnormal ECG, Chest pain R94.31;Other (please specify) Report [facility] [address] [place] [address] Adult Echocardiogram Report Name: GONZÁLEZ JOHNSDERECK Mart Study Date: 01/30/2024 10:54 AM BP: 137/84 mmHg Patient Location: [facility] Ambulatory(s) [facility] HR: 80 : 1945 Gender: Male Height: [...] MD Transcribed by: NETTE Technologist: BASIA Mancia [facility] 01-19-2024 History of Present illness Narrative [...] TO CHANGE TRACKING LOCATION MS BLAS 10/29/2020 0754 P.O.C.T. RESULTS: POC done: Yes, See Lab Tab January 19, 2024 TREATMENT: N/A IV SITE: Ambulatory: A peripheral IV was started in the Right hand with a Angio cath: 20 gauge. IV SITE APPEARANCE: Clean,Dry and Intact SIGNATURE: Blayne Mosqueda RN PATIENT NAME: Adolph Johns DATE: January 19, 2024 TIME: 8:37 AM documented in this encounter [facility] 01-19-2024 Note HNO ID: [id number] Author: BLAYNE MOSQUEDA RN Service: ? Author [...] TO CHANGE TRACKING LOCATION MS BLAS 10/29/2020 4860 P.O.C.T. RESULTS: POC done: Yes, See Lab Tab January 19, 2024 TREATMENT: N/A IV SITE: Ambulatory: A peripheral IV was started in the Right hand with a Angio cath: 20 gauge. IV SITE APPEARANCE: Clean,Dry and Intact SIGNATURE: Blayne Mosqueda RN PATIENT NAME: Adolph Johns DATE: January 19, 2024 TIME: 8:37 AM [facility] 01-10-2024 Hospital Discharge instructions Patient Education 01/10/2024 [...] Follow these instructions at home: Medicines Take zmsh-uwa-txxfgfg and prescription medicines only as told by [...] to keep your urine pale yellow. ?Take fagd-wim-irutqzt or prescription medicines. ?Eat foods that are [...] and pain in your lower abdomen. Take mljl-qdq-hihcppp and prescription medicines only as told by [...] provider. Document Revised: 01/28/2022 Document Reviewed: 01/28/2022 [employer] Patient Education 2023 [employer]. 01/10/2024 13:10:32 Transurethral Resection of Bladder Tumor [...] including vitamins, herbs, eye drops, creams, and peyj-euu-gkchatw medicines. Any problems you or family members [...] provider tells you to take them. Taking eauz-fqe-nrkaokq medicines, vitamins, herbs, and supplements. General instructions [...] provider. Document Revised: 01/28/2022 Document Reviewed: 01/28/2022 [employer] Patient Education 2023 [employer]. Follow Up Care 01/08/2024 10:29:10 With:CORNELIO ROSARIO, Yosef Bunch, URL Address: [facility] [address] , [place] [address]- When: Unknown [facility] 01-10-2024 Note Patient Education Oncology Transurethral [...] these instructions at home: Medicines ??? Take nphj-ziy-uhluxhv and prescription medicines only as told by [...] keep your urine pale yellow. ? Take wzuv-rkc-ekratts or prescription medicines. ? Eat foods that [...] pain in your lower abdomen. ??? Take chcq-nmh-swovoph and prescription medicines only as told by [...] your drainage bag. (more content not included)... [facility] 01-08-2024 Hospital Discharge instructions Patient Education [...] including vitamins, herbs, eye drops, creams, and nydv-zgq-adicmsx medicines. Any problems you or family members [...] provider tells you to take them. Taking gixg-kdx-bkyivns medicines, vitamins, herbs, and supplements. Tests You [...] Follow these instructions at home: Medicines Take pzff-szd-hdehstb and prescription medicines only as told by [...] provider. Document Revised: 10/06/2021 Document Reviewed: 09/04/2020 [employer] Patient Education 2023 [employer]. 01/08/2024 10:14:09 Hematuria, Adult Hematuria, Adult Hematuria [...] Follow these instructions at home: Medicines Take kgyk-obl-cdpztth and prescription medicines only as told by [...] or the blood stops without treatment. Take xcsu-ase-pinuold and prescription medicines only as told by your health care provider. Drink enough fluid to keep your urine pale yellow. This information is not intended to replace advice given to you by your health care provider. Make sure you discuss any questions you have with your health care provider. Document Revised: 09/23/2020 Document Reviewed: 09/23/2020 [employer] Patient Education 2023 [employer]. Follow Up Care 01/01/2024 08:46:40 With:CORNELIO ROSARIO, Yosef Bunch, URL Address: [facility] [address] , [place] [address]- [phone] When: Unknown [facility] 01-08-2024 Note Patient Education Urology Cystoscopy [...] including vitamins, herbs, eye drops, creams, and svjl-aws-kweotbj medicines. ??? Any problems you or family [...] tells you to take them. ??? Taking qrtl-tco-jrcklov medicines, vitamins, herbs, and supplements. Tests You [...] these instructions at home: Medicines ??? Take hupt-wlc-jpdmqdr and prescription medicines only as told by [...] (biopsy) during your (more content not included)... [facility] 01-01-2024 Telephone encounter Note Pt returned call and was notified. Peggy Lakhani RN [facility] 01-01-2024 Miscellaneous Notes Pt returned call [...] Letty Barahona RN documented in this encounter [facility] 01-01-2024 Telephone encounter Note I left a message for Adolph to call the office. Letty Barahona RN [facility] 12-29-2023 Telephone encounter Note Attempted to call patient with Dr. Kumari's recommendation but there was no answer. Letty Barahona RN [facility] 12-29-2023 Telephone encounter Note Adolph left [...] CT scans. Please advise. Letty Barahona RN [facility] 11-24-2023 Hospital Discharge instructions Patient Education [...] similar to normal prostate cells (moderately differentiated). Ancramdale 8, 9, or 10: This indicates that [...] stress of having cancer. General instructions Take qfag-seu-uajtqmn and prescription medicines only as told by your health care provider. If you have to go to the hospital, notify your cancer specialist (oncologist). Keep all follow-up visits. This is important. Where to find more information [employer] Cancer Society: www.cancer.org Ethiop[place] Society of Clinical Oncology: www.cancer.net National Cancer Bearden: www.cancer.gov Contact a health care provider if: [...] provider. Document Revised: 04/21/2021 Document Reviewed: 04/21/2021 [employer] Patient Education 2023 [employer]. Follow Up Care 05/22/2023 12:03:30 With:CORNELIO ROSARIO, Yosef Bunch, URL Address: [address] [place] [phone] When: Unknown [facility] 11-24-2023 Note Patient Education Oncology Prostate [...] likelihood that the cancer will spread. ? Ancramdale 6 or lower: This indicates that the [...] the prostate gla (more content not included)... [facility] 11-16-2023 History of Present illness Narrative Radiation Oncology - Follow Up Note PATIENT NAME: Adolph Johns PATIENT DIAGNOSIS: Prostate adenocarcinoma, initial PSA 7.5, biopsy Anc[place] score 4 + 3 = 7 (grade [...] ASSESSMENT/PLAN: Prostate adenocarcinoma, initial PSA 7.5, biopsy [place] score 4 + 3 = 7 (grade [...] by: David Kumari MD cc: Shahriar Stephenson [address] [place] [id number] No referring provider defined for this encounter. documented in this encounter [facility] 11-16-2023 Note HNO ID: [id number] Author: David KUMARI MD Service: ? Author [...] Kumari MD cc: Shahriar Stephenson [address] [place] [address] No referring provider defined for this encounter. [facility] 11-16-2023 Nurse Note JACK Lakhani RN [facility] 11-16-2023 Nurse Note JACK Lakhani RN documented in this encounter [facility] 11-15-2023 Note HNO ID: [id number] Author: NICOLAS HWANG MD Service: ? Author [...] with urination. He plans to travel to [place] next week where he plans to spend [...] or petechiae. PATHOLOGY: 11/10/2022 Bladder tumor, TURBT ([facility]) Metastatic poorly differentiated adenocarcinoma, consistent with [...] lesion. No comparison study. 10/28/2019 Skeletal survey ([facility]) Subtle oval slightly lytic-appearing lesion within the right femoral neck, nonspecific and may represent summation ar (more content not included)... [facility] 11-15-2023 History of Present illness Narrative PATIENT [...] with urination. He plans to travel to [place] next week where he plans to spend [...] or petechiae. PATHOLOGY: 11/10/2022 Bladder tumor, TURBT ([facility]) Metastatic poorly differentiated adenocarcinoma, consistent with [...] lesion. No comparison study. 10/28/2019 Skeletal survey ([facility]) Subtle oval slightly lytic-appearing lesion within [...] in May 2024 after he returns from [place] to [place]. 2. Monoclonal gammopathy - ICD9: 273.1, ICD10: [...] Nicolas Hwang MD documented in this encounter [facility] 10-23-2023 Note Patient Education Nutrition BMI [...] for Disease Control and Prevention: cdc.gov ? [place] Heart Association: heart.org ? National Heart, Lung, and Blood Bearden: nhlbi.nih.gov This information is not intended to replace advice given to you by your health care provider. Make sure you discuss any questions you have with your health care provider. Document Revised: 10/13/2022 Document Reviewed: 10/06/2022 [employer] Patient Education ? 2023 [employer] DASH Eating Plan DASH stands for [...] vegetables each day (more content not included)... [facility] 05-22-2023 Hospital Discharge instructions Patient Education [...] advanced cancer. Where to find more information [employer] Cancer Society: www.cancer.org National Cancer Bearden: www.cancer.gov Contact a health care provider if: [...] provider. Document Revised: 05/06/2021 Document Reviewed: 05/06/2021 [employer] Patient Education 2022 [employer]. Follow Up Care 12/02/2022 13:08:27 With:CORNELIO ROSARIO, Yosef Bunch, URL Address: [facility] [address] , [place] [address]- [phone] When: Unknown Comments:6 mos w/ PSA (gets level from [facility]) [facility] [place] 05-18-2023 History of Present illness Narrative [...] David Kumari MD cc: Shahriar Stephenson [address] [place] [address] No referring provider defined for this encounter. documented in this encounter [facility] 05-18-2023 Nurse Note AUA 5 Peggy Lakhani, SINDI documented in this encounter [facility] 05-18-2023 History of Present illness Narrative [...] or petechiae. PATHOLOGY: 11/10/2022 Bladder tumor, TURBT ([facility]) Metastatic poorly differentiated adenocarcinoma, consistent with [...] lesion. No comparison study. 10/28/2019 Skeletal survey ([facility]) Subtle oval slightly lytic-appearing lesion within [...] which included preparing to see the patient, uqre-vs-ozuk patient care, completing clinical documentation, obtaining and/or reviewing separately obtained history, performing a medically appropriate examination, counseling and educating the patient/family/caregiver, ordering medications, tests, or procedures, independently interpreting results (not separately reported), and communicating results to the patient/family/caregiver. documented in this encounter [facility] 05-08-2023 Miscellaneous Notes Patient coming in 05/18/23 for follow up with labs. Please add lab orders. Bettina El MA documented in this encounter [facility] 01-26-2023 History of Present illness Narrative Boost set up films reviewed documented in this encounter [facility] 01-17-2023 History of Present illness Narrative Boost reese reviewed. documented in this encounter [facility] 01-16-2023 History of Present illness Narrative Images from the original note were not included. Radiation Oncology - On Treatment Review (OTR) Note PATIENT NAME: Adolph Johns PATIENT DIAGNOSIS: Prostate adenocarcinoma, initial PSA 7.5, biopsy Ancramdale score 4 + 3 = 7 (grade [...] imaging reviewed. Continue radiation as outlined. David Kuamri MD documented in this encounter [facility] 01-11-2023 History of Present illness Narrative ADOLPH JOHNS [id number] 01/11/2023 [facility] Department of Radiation Oncology Treatment [...] M.D. 31:35 PM documented in this encounter [facility] 01-09-2023 Miscellaneous Notes I notified Adolph [...] Letty Barahona RN documented in this encounter [facility] 01-06-2023 Miscellaneous Notes The following approved [...] diet. Pt would like script sent to [facility] [place]. Morgan: Please review and sign pending order. Thanks! Jessica Amezquita RN ----- Message from Nicolas Hwang MD sent at 01/06/2023 7:58 AM EST ----- Please inform the patient that his potassium is slightly low. Possibly from his Zestoretic or abiraterone/prednisone. Would recommend potassium supplement with 10 mEq 1 daily. documented in this encounter [facility] 01-05-2023 History of Present illness Narrative [...] visit his bladder biopsy was reviewed by [facility] pathology, and the diagnosis of poorly [...] or petechiae. PATHOLOGY: 11/10/2022 Bladder tumor, TURBT ([facility]) Metastatic poorly differentiated adenocarcinoma, consistent with [...] lesion. No comparison study. 10/28/2019 Skeletal survey ([facility]) Subtle oval slightly lytic-appearing lesion within [...] patient plans to spend the winter in [place] after radiation is completed. I will see him back in May 2023 when he returns to [place]. 2. Monoclonal gammopathy - ICD9: 273.1, ICD10: [...] Dr. Cornelio Mccarty documented in this encounter [facility] 01-02-2023 History of Present illness Narrative Radiation Oncology - On Treatment Review (OTR) Note PATIENT NAME: Adolph Johns PATIENT DIAGNOSIS: Prostate adenocarcinoma, initial PSA 7.5, biopsy Ancramdale score 4 + 3 = 7 (grade [...] David Kumari MD documented in this encounter [facility] 12-26-2022 History of Present illness Narrative Radiation Oncology - On Treatment Review (OTR) Note PATIENT NAME: Adolph Johns PATIENT DIAGNOSIS: Prostate adenocarcinoma, initial PSA 7.5, biopsy Ancramdale score 4 + 3 = 7 (grade [...] David Kumari MD documented in this encounter [facility] 12-22-2022 Nurse Note Adolph Johns presents in office today for: Lab Draw only . Ordering Provider: Damien Kumari M.D. Test (s) ordered: CBC Method for obtaining blood: Phlebotomy was performed, accessing left antecubital vein. Needle removed intact. Dressing secured. Patient denies discomfort, dizziness, light-headedness or weakness and left the department without assist. Letty Barahona LPN documented in this encounter [facility] 12-19-2022 Miscellaneous Notes Patient is scheduled for 12/21/2022 at 10:30AM with Dr Leila Evans at [facility]. I called and let him know appt day and time. documented in this encounter [facility] 12-19-2022 History of Present illness Narrative [...] lesion unrelated we will have him see cell attendant helper. Chart and imaging reviewed. Continue radiation as outlined. David Kumari MD documented in this encounter [facility] 12-15-2022 Miscellaneous Notes ORAL ANTI-CANCER AGENTS [...] Nancy Ray, RN documented in this encounter [facility] 12-14-2022 History of Present illness Narrative [...] David Kumari MD documented in this encounter [facility] 12-08-2022 History of Present illness Narrative ADOLPH JOHNS [id number] 12/08/2022 [facility] Department of Radiation Oncology Treatment [...] M.D. 33:30 PM documented in this encounter [facility] 12-02-2022 Hospital Discharge instructions Patient Education [...] the likelihood that the cancer will spread. Ancramdale 6 or lower: This indicates that the cancer cells look similar to normal prostate cells (well differentiated). Corene 7: This indicates that the cancer cells [...] stress of having cancer. General instructions Take wotz-usi-vpnejkr and prescription medicines only as told by your health care provider. If you have to go to the hospital, notify your cancer specialist (oncologist). Keep all follow-up visits. This is important. Where to find more information [employer] [employer]: www.cancer.org [employer] Society of Clinical Oncology: www.cancer.net National Cancer Bearden: www.cancer.gov Contact a health care provider if: [...] provider. Document Revised: 04/21/2021 Document Reviewed: 04/21/2021 [employer] Patient Education 2022 [employer]. Follow Up Care 11/28/2022 15:36:16 With:CORNELIO ROSARIO, Yosef Bunch, URL Address: [address] [place] [id number] When: Unknown [facility] 12-01-2022 Nurse Note Radiation Therapy - Patient Education Note PATIENT NAME: Adolph Johns PATIENT December 01, 2022 [facility] FACILITY/LOCATION: [facility] READINESS TO LEARN Cognitive Ability: Alert [...] need for social work, van service, and sales product specialist. Was approved? No Signed by: Letty Barahona LPN documented in this encounter [facility] 11-28-2022 History of Present illness Narrative [...] 2022 12:01 PM documented in this encounter [facility] 11-18-2022 Hospital Discharge instructions Patient Education [...] under a microscope. This is called the Ancramdale score and the total score can range from 6 10, indicating how likely it is that the cancer will spread (metastasize) to other parts of the body. The higher the score, the greater the likelihood that the cancer will spread. Ancramdale 6 or lower: This indicates that the [...] stress of having cancer. General instructions Take fwbq-eoz-qxmvwse and prescription medicines only as told by your health care provider. If you have to go to the hospital, notify your cancer specialist (oncologist). Keep all follow-up visits. This is important. Where to find more information [employer] Society: www.cancer.org Ethiop[place] Society of Clinical Oncology: www.cancer.net National Cancer Bearden: www.cancer.gov Contact a health care provider if: [...] provider. Document Revised: 04/21/2021 Document Reviewed: 04/21/2021 [employer] Patient Education 2022 [employer]. Follow Up Care 11/01/2022 16:31:02 With:CORNELIO ROSARIO, Yosef Bunch, URL Address: [facility] [address] [place] [phone] When: Unknown [facility] Kristen 11-15-2022 History of Present illness Narrative [...] an elevated PSA of 7.5, biopsy showing Ancramdale 7 (4+3) adenocarcinoma. No evidence of metastasis on staging. He underwent nerve sparing radical retropubic prostatectomy and bilateral pelvic lymphadenectomy on 01/07/2016. Pathology revealed adenocarcinoma, Ancramdale 8 (4+4), no evidence of extraprostatic extension, no seminal vesicle invasion, margins uninvolved, perineural invasion was seen, 2 regional lymph nodes removed without evidence of metastasis.[id number] Post prostatectomy PSA undetectable. However PSA has [...] by: David Kumari MD cc: Shahriar Stephenson [facility] [place] [address] Yosef R Cornelio [address] [facility] [address] documented in this encounter [facility] 10-28-2022 History of Present illness Narrative [...] 1245 PATIENT DISCHARGED TO: Ambulatory patient, left [place] department area. A Diagnostic radioactive procedure has taken place, with no further precautions necessary other than routine body substance precautions. More information regarding radiation safety can be found using this link: [email or web address] SIGNATURE: RT Jace(R) PATIENT NAME: Adolph Johns DATE: October 28, 2022 TIME: 1:51 PM PAGER/CONTACT #: documented in this encounter [facility] 10-09-2022 Evaluation note Encounter Date Diagnosis [...] Patient states he did 2 [address] zagw-nkm-axdh ter test that were positive for nitrites. Patient appears nontoxic and will be treated for UTI according to his symptoms. Stressed the need for the patient to go to the ER for any worsening fevers, vomiting, abdominal pain, back pain. Patient agrees with this plan. [employer] Other 09-01-2023 Miscellaneous Notes* Telephone Encounter - Brook Ambrosio - 10/07/2022 11:51 AM EDT Patient has been scheduled. Brook Ambrosio * Telephone Encounter - Diana Romero RN - 10/06/2022 1:18 PM EDT PET/Ct Prostate auth approved [id number] from 10-04-22 to 04-02-23 for 1 dos * Telephone Encounter - Diana Romero RN - 10/06/2022 1:01 PM EDT Authorization number: PSMA [id number] Authorization date range: PSMA from 10-04-22 to 04-02-23 for 1 dos Primary Insurance: [employer] Medicare [id number] Diagnosis: Rising PSA after Prostate cancer treatment [...] No - Schedule as requested Comments for Spectacle Truer: N/A ROUTE TO SCHEDULERS POOL P PET PACKAGING INSPECTOR MC or P NM SPECIAL STUDIES MC * Telephone Encounter - Melodie Auguste - 10/06/2022 11:10 AM EDT This form is used for MAIN CAMPUS APPOINTMENTS ONLY. Is this request for a [facility] PET scan appointment? Yes: Air Hammer Operator: Melodie Ladd Requesting Person Dr landers (external order scanned in along with auth) Name): Area Code + Phone/Pager: [phone] Who do we call to schedule this appointment? [facility] please route to Lucila saenz in [place] (external orders) Requesting Staff Dr grimes Area Code + Phone/Pager: [phone] PET Orders (A delay in scheduling will result if the orders are not present at time of review): External. Has the External Clinical Order been scanned into [facility]? Yes ADDITIONAL ACTION MAY BE REQUIRED [...] file for patient also. Send requests to [facility] Hospital Discharge instructions Patient Education 10/03/2022 [...] including vitamins, herbs, eye drops, creams, and nfgo-jja-swgvnnr medicines. Any problems you or family members [...] provider tells you to take them. Taking xjyz-tto-aqjicfm medicines, vitamins, herbs, and supplements. Tests You [...] Follow these instructions at home: Medicines Take xwqy-ajt-yavpwmj and prescription medicines only as told by [...] provider. Document Revised: 10/06/2021 Document Reviewed: 09/04/2020 [employer] Patient Education 2022 [employer]. 10/03/2022 15:02:31 Hematuria, Adult Hematuria, Adult Hematuria [...] Follow these instructions at home: Medicines Take ivul-oxe-aanfdby and prescription medicines only as told by [...] or the blood stops without treatment. Take kkcp-bau-mogiyhf and prescription medicines only as told by your health care provider. Drink enough fluid to keep your urine pale yellow. This information is not intended to replace advice given to you by your health care provider. Make sure you discuss any questions you have with your health care provider. Document Revised: 09/23/2020 Document Reviewed: 09/23/2020 [employer] Patient Education 2022 [employer]. Follow Up Care 09/27/2021 10:53:03 With:CORNELIO ROSARIO, Yosef Bunch, URL Address: [facility] [address], [place] [phone] When: Unknown Comments:sched cysto and PSMA PET scan [facility] 04-27-2023 History of Present illness Narrative* Elio Payne APRN.EXHIBITS COORDINATOR - 06/02/2022 2:06 PM EDT PATIENT NAME: [...] today. He spent the winter months in [place]. MEDICATIONS: lisinopril-hydrochlorothiazide (PRINZIDE,ZESTORETIC) 10-12.5 mg per tablet [...] lesion. No comparison study. 10/28/2019 Skeletal survey ([facility]) Subtle oval slightly lytic-appearing lesion within [...] which included preparing to see the patient, zxrf-af-esba patient care, completing clinical documentation, obtaining and/or reviewing separately obtained history, performing a medically appropriate examination, counseling and educating the pat ient/family/caregiver, ordering medications, tests, or procedures, independently interpreting results (not separately reported), and communicating results to the patient/family/caregiver. [facility] Miscellaneous Notes* Telephone Encounter - Shima [...] back as scheduled. Thanks, [facility] History of Present illness Narrative* Nicolas [...] involvinghis right groin area. FNA obtained 08/16/2021 ([facility]) revealed changes suggestive of fatnecrosis and [...] lesion. No comparison study. 10/28/2019 Skeletal survey ([facility]) Subtle oval slightly lytic-appearing lesion within [...] in 7 months (after he returns from [place]). We will then see him every 6 [...] MD CC: Dr. Cook documented [facility] Hospital Discharge instructions Patient Education 09/27/2021 [...] including vitamins, herbs, eye drops, creams, and ecmb-bdj-kdoshvd medicines. This also includes: ?Medicines to assist [...] 02/25/2005 Document Revised: 01/05/2018 Document Reviewed: 10/30/2017 [employer] Patient Education 2020 [employer] 09/27/2021 10:40:10 Calorie Counting for Weight [...] 01/23/2006 Document Revised: 10/12/2018 Document Reviewed: 12/23/2016 [employer] Patient Education 2020 [employer]. Follow Up Care 10/22/2020 15:01:04 With:CORNELIO ROSARIO, Yosef Bunch, URL Address: [address] [place], [place] [id number] Business (1) When:Within 1 Year(s) Comments:w/PSA [facility] 06-27-2022 Miscellaneous Notes* Telephone Encounter - Nicolas Hwang MD - 08/02/2021 5:00 PM EDT The patient was found to have a cystic mass in his groin. He will undergo an ultrasound-guided biopsy at [place]. Dr. Chanel will inform me of the results. If benign I will see him back in Octoberas scheduled. If malignant I will see him after the biopsy to discuss further work-up and treatment. Thanks, BRKris * Telephone Encounter - Melodie Patel Sec - 08/02/2021 1:42 PM EDT Please call Dr Chanel regarding Adolph Phone number is [phone] thanks! [facility] Miscellaneous Notes* Telephone Encounter - Pretty [...] as planned. Thanks, BRKris documented in [facility]22 Miscellaneous Notes* Telephone Encounter - Pretty Aparicio RN - 05/14/2021 1:02 PM EDT Informed pt of Dr Hwang's message. Pt verbalized understanding and denies further needs at this time. rPetty Aparicio RN * Telephone Encounter - Pretty Aparicio RN - 05/14/2021 1:02 PM EDT ----- Message from Nicolas Hwang MD sent at 05/14/2021 11:21 AM EDT ----- Please inform the patient that his labs are stable, and I would recommend continued follow-up as planned. Thanks, GABI documented in [facility]22 Miscellaneous Notes* Telephone Encounter - Bettina Sargent - 10/21/2021 1:38 PM EDT Patient scheduled to see you on Monday11/02/21 for follow up with labs. Please add lab orders. Thanks. Bettina Sargent MA [facility] in [facility] Evaluation note* Encounter Date Diagnosis Assessment [...] Patient care instructions given in writting by [facility] Care At Home document. [employer] Other 04-14-2020 Evaluation + Plan note Future Appointments Appointment Date:01/30/2024 11:00:00 AM Scheduled Provider: Location:.[facility] Appointment Type:CV Echo () Appointment Date:05/20/2024 12:45:00 PM Scheduled Provider:Yosef GRIMES MD [facility] Type:[facility] Office Visit Appointment Date:10/24/2024 11:00:00 AM Scheduled Provider: Location:[facility] Appointment Type:FM Medicare Wellness Subsequent Future Scheduled Tests Radiology* Echo Transthoracic Complete 01/30/24 [facility] Evaluation + Plan note Future Appointments Appointment Date:09/26/2022 10:15:00 AM Scheduled Provider:Yosef GRIMES MD Location:[facility] Appointment Type:URO Office Visit Diagnostic Tests Pending * PSA Total 09/27/21 [facility] evaluation + Plan note Future Appointments Appointment Date:10/11/2022 01:00:00 PM Scheduled Provider: Location:[facility] Appointment Type:FM Medicare Wellness Subsequent [facility] evaluation + Plan note Future Appointments Appointment Date:11/18/2022 11:00:00 AM Scheduled Provider:Yosef GRIMES MD Location:[facility] Appointment Type:URO Office Visit Appointment Date:10/13/2023 01:00:00 PM Scheduled Provider: Location:[facility] Appointment Type: Medicare Wellness Subsequent Diagnostic Tests Pending * UroVysion Fish and Urine Cyto ([facility]) [facility]ments Appointment Date:10/13/2023 01:00:00 PM Scheduled Provider: Location:[facility] Appointment Type:FM Medicare Wellness Subsequent [facility] evaluation + Plan note Future Appointments Appointment Date:05/22/2023 11:15:00 AM Scheduled Provider:Yosef GRIMES MD [facility] App[facility] Type:URO Office Visit Appointment Date:10/13/2023 01:00:00 PM Scheduled Provider: Location:[facility] Appointment Type:FM Medicare Wellness Subsequent Diagnostic Tests Pending * PSA Total 04/07/23 [facility] evaluation + Plan note Future Appointments Appointment Date:10/23/2023 01:00:00 PM Scheduled Provider: Location:[facility] Appointment Type:FM Medicare Wellness Subsequent Appointment Date:11/24/2023 11:00:00 AM Scheduled Provider:Yosef GRIMES MD [facility] Type:URO Office Visit [facility] evaluation + Plan note Future Appointments Appointment Date:05/20/2024 12:45:00 PM Scheduled Provider:Yosef GRIMES MD [facility] App[facility] Type:URO Office Visit Appointment Date:10/24/2024 11:00:00 AM Scheduled Provider: Location:[facility] Appointment Type:FM Medicare Wellness Subsequent Diagnostic Tests Pending * PSA Total 03/09/24 [facility] evaluation + Plan note Future Appointments Appointment Date:01/08/2024 09:00:00 AM Scheduled Provider:Yosef GRIMES MD [facility] App[facility] Type:URO Office Visit Appointment Date:05/20/2024 12:45:00 PM Scheduled Provider:[facility]IMES [facility] Type:[facility] Office Visit Appointment Date:10/24/2024 11:00:00 AM Scheduled Provider: Location:[facility] Appointment Type:FM Medicare Wellness Subsequent [facility] evaluation + Plan note Future Appointments Appointment Date:01/08/2024 09:00:00 AM Scheduled Provider:Yosef GRIMES MD [facility] App[facility] Type:URO Office Visit Appointment Date:05/20/2024 12:45:00 PM Scheduled Provider:Yosef GRIMES MD Location:[facility] [place] Appointment Type:URO Office Visit Appointment Date:10/24/2024 11:00:00 AM Scheduled Provider: Location:[facility] Appointment Type: Medicare Wellness Subsequent Diagnostic Tests Pending * Urine Culture 01/01/24 [facility] evaluation + Plan note Future Appointments Appointment Date:01/10/2024 01:00:00 PM Scheduled Provider:Yosef GRIMES MD Location:[facility] Jo[place] Appointment Type:URO Procedure 15 min Appointment Date:05/20/2024 12:45:00 PM Scheduled Provider:Yosef GRIMES MD [facility] App[facility] Type:URO Office Visit Appointment Date:10/24/2024 11:00:00 AM Scheduled Provider: Location:[facility] Appointment Type:FM Medicare Wellness Subsequent Diagnostic Tests Pending * Urine Cytology ([facility]) 01/08/24 [facility] evaluation + Plan note Future Appointments Appointment Date:01/10/2024 01:00:00 PM Scheduled Provider:Yosef GRIMES MD Location:[facility] Jose Appointment Type:URO Procedure 15 min Appointment Date:05/20/2024 12:45:00 PM Scheduled Provider:Yosef GRIMES MD [facility] Type:URO Office Visit Appointment Date:10/24/2024 11:00:00 AM Scheduled Provider: Location:[facility] Appointment Type:FM Medicare Wellness Subsequent [facility] evaluation + Plan note Future Appointments Appointment Date:01/26/2024 08:45:00 AM Scheduled Provider:Yosef GRIMES MD [facility] Appointment Type:URO Office Visit Appointment Date:05/20/2024 12:45:00 PM Scheduled Provider:Yosef GRIMES MD Location:[facility] [place] Appointment Type:URO Office Visit Appointment Date:10/24/2024 11:00:00 AM Scheduled Provider: [facility] Type:FM Medicare Wellness Subsequent [facility] evaluation + Plan note Future Appointments Appointment Date:02/28/2024 08:45:00 AM Scheduled Provider:Yosef GRIMES MD Location:[facility] Jose Appointment Type:URO Office Visit Appointment Date:05/20/2024 12:45:00 PM Scheduled Provider:Yosef GRIMES MD [facility] App[facility] Type:URO Office Visit Appointment Date:10/24/2024 11:00:00 AM Scheduled [facility] Type: Medicare Wellness [facility] evaluation + Plan note Future Appointments Appointment Date:03/04/2024 09:30:00 AM Scheduled Provider:Yosef GRIMES MD Location:[facility] [place] Appointment Type:URO Office Visit Appointment Date:05/20/2024 12:45:00 PM Scheduled Provider:Yosef GRIMES MD [facility] App[facility] Type:URO Office Visit Appointment Date:10/24/2024 11:00:00 AM Scheduled Provider: [facility] Appointment Type: Medicare Wellness Subsequent [facility] Evaluation + Plan note Future Appointments Appointment Date:05/20/2024 12:45:00 PM Scheduled Provider:Yosef GRIMES MD [facility] App[facility] Type:URO Office Visit Appointment Date:10/24/2024 11:00:00 AM Scheduled Provider: [facility] Appoint[facility] Type: Medicare Wellness [facility] evaluation note* Diagnosis Monoclonal gammopathy- Primary Monoclonal paraproteinemia Prostate cancer (HCC) Malignant neoplasm of prostate documented in this encounter [facility] note* Diagnosis Monoclonal gammopathy- Primary Monoclonal paraproteinemia documented in this encounter [facility] note* Diagnosis Monoclonal gammopathy- Primary Monoclonal paraproteinemia documented in this encounter [facility] note* Diagnosis Monoclonal gammopathy- Primary Monoclonal paraproteinemia Prostate cancer (HCC) Malignant neoplasm of prostate Essential hypertension Unspecified essential hypertension Chronic renal insufficiency, stage 3 (moderate) (HCC) [facility]No assessment information availableAcm[facility]tr Work Phone: Evaluation note* Diagnosis [...] neoplasm of prostate [facility] Diagnosis Prostate cancer (HCC)- Primary [...] gammopathy Monoclonal paraproteinemia [facility] Diagnosis Malignant neoplasm of prostate (HCC)- Primary Malignant neoplasm of prostate [facility]* Diagnosis Monoclonal gammopathy- Primary Monoclonal paraproteinemia Prostate cancer (HCC) Malignant neoplasm of prostate Chronic renal insufficiency, stage 3 (moderate) (HCC) documented in this encounter [facility] general Narrative - Reported* Type Description Date Medical History hypertension Medical History HYPONATREMIA Medical History ACUTE CHRONIC RENAL FAILURE Medical History PLEURISY Surgical History cancer, skin Lip and Hand 1999 Surgical History PROSTATECTOMY Surgical History SKIN LESIONS REMOVED X2 09/2020 Hospitalization History SEE ABOVE Hospitalization History PNEUMONIA AT AGE 7 [employer] Other Hospital course Narrative No data available for this section [facility] Discharge instructions No data available for this section [facility] No data available for this section [facility] [employer] [facility] Summary Purpose Family History No Family History [...] cell carcinoma Procedures CONSULT TO DERMATOLOGY OFFICE/OUTPATIENT [facility] 60-74 MINUTES David Kumari MD [address] [place] [address] [place] [address] Referral ID Status Reason Start Date Expiration Date Visits Requested Visits Authorized [id number] Pending Review PCP Requested Referral 3 12/19/2023 1 1 Specialty Diagnoses / Procedures Referred By Ana leach Referred To Contact Diagnoses Malignant neoplasm of prostate (HCC) Procedures CT SIM PLANNING RADIATION ONCOLOGY THER RAD SIMULAJ-AIDED FIELD SETTING COMPLEX David Kumari MD [address] [place] [address] Referral ID Status Reason Start Date Expiration Date Visits Requested Visits Authorized [id number] Pending Review PCP Requested Referral 12/15/2022 03/08/2023 1 1 Specialty Diagnoses / Procedures Referred By Contac t Referred To Contact MR IMAGING Diagnoses Malignant neoplasm of prostate (HCC) Procedures MRI PROSTATE WO/W IVCON MRI PELVIS W/O & W/CONTRAST MATERIAL David Kumari MD [address] [place] [address] [place] [address] Referral ID Status Reason Start Date Expiration Date Visits Requested Visits Authorized [id number] Pending Review Auto-Generat ed Referral 3 12/15/2023 1 1 Additional Source Comments Source Comments (unrecognize d section and content) In the event this informatio n is protected by the Federal Confidentiality of Alcohol and Drug Abuse Patient Records regulations: The Federal rules restrict any use of the information to criminally investigate or prosecute any alcohol or drug abuse patient.[facility] the event this information is protected by the Federal Confidentiality of Alcohol and Drug Abuse Patient Records regulations: The Federal rules restrict any use of the information to criminally investigate or prosecute any alcohol or drug abuse patient.[facility] the event this information is protected by the Federal Confidentiality of Alcohol and Drug Abuse Patient Records regulations: The Federal rules restrict any use of the information to criminally investigate or prosecute any alcohol or drug abuse patient.[facility] the event this information is protected by the Federal Confidentiality of Alcohol and Drug Abuse Patient Records regulations: The Federal rules restrict any use of the information to criminally investigate or prosecute any alcohol or drug abuse patient.[facility] the event this information is protected by the Federal Confidentiality of Alcohol and Drug Abuse Patient Records regulations: The Federal rules restrict any use of the information to criminally investigate or prosecute any alcohol or drug abuse patient.[facility] the event this information is protected by the Federal Confidentiality of Alcohol and Drug Abuse Patient Records regulations: The Federal rules restrict any use of the information to criminally investigate or prosecute any alcohol or drug abuse patient.[facility] the event this information is protected by the Federal Confidentiality of Alcohol and Drug Abuse Patient Records regulations: The Federal rules restrict any use of the information to criminally investigate or prosecute any alcohol or drug abuse patient.[facility] the event this information is protected by the Federal Confidentiality of Alcohol and Drug Abuse Patient Records regulations: The Federal rules restrict any use of the information to criminally investigate or prosecute any alcohol or drug abuse patient.[facility] the event this information is protected by the Federal Confidentiality of Alcohol and Drug Abuse Patient Records regulations: The Federal rules restrict any use of the information to criminally investigate or prosecute any alcohol or drug abuse patient.[facility]In the event this information is protected by the Federal Confidentiality of Alcohol and Drug Abuse Patient Records regulations: The Federal rules restrict any use of the information to criminally investigate or prosecute any alcohol or drug abuse patient.[facility]In the event this information is protected by the Federal Confidentiality of Alcohol and Drug Abuse Patient Records regulations: The Federal rules restrict any use of the information to criminally investigate or prosecute any alcohol or drug abuse patient.[facility]In the event this information is protected by the Federal Confidentiality of Alcohol and Drug Abuse Patient Records regulations: The Federal rules restrict any use of the information to criminally investigate or prosecute any alcohol or drug abuse patient.[facility]In the event this information is protected by the Federal Confidentiality of Alcohol and Drug Abuse Patient Records regulations: The Federal rules restrict any use of the information to criminally investigate or prosecute any alcohol or drug abuse patient.[facility]In the event this information is protected by the Federal Confidentiality of Alcohol and Drug Abuse Patient Records regulations: The Federal rules restrict any use of the information to criminally investigate or prosecute any alcohol or drug abuse patient.[facility]In the event this information is protected by the Federal Confidentiality of Alcohol and Drug Abuse Patient Records regulations: The Federal rules restrict any use of the information to criminally investigate or prosecute any alcohol or drug abuse patient.[facility]In the event this information is protected by the Federal Confidentiality of Alcohol and Drug Abuse Patient Records regulations: The Federal rules restrict any use of the information to criminally investigate or prosecute any alcohol or drug abuse patient.[facility]In the event this information is protected by the Federal Confidentiality of Alcohol and Drug Abuse Patient Records regulations: The Federal rules restrict any use of the information to criminally investigate or prosecute any alcohol or drug abuse patient.[facility]In the event this information is protected by the Federal Confidentiality of Alcohol and Drug Abuse Patient Records regulations: The Federal rules restrict any use of the information to criminally investigate or prosecute any alcohol or drug abuse patient.[facility]In the event this information is protected by the Federal Confidentiality of Alcohol and Drug Abuse Patient Records regulations: The Federal rules restrict any use of the information to criminally investigate or prosecute any alcohol or drug abuse patient.[facility]In the event this information is protected by the Federal Confidentiality of Alcohol and Drug Abuse Patient Records regulations: The Federal rules restrict any use of the information to criminally investigate or prosecute any alcohol or drug abuse patient.[facility]In the event this information is protected by the Federal Confidentiality of Alcohol and Drug Abuse Patient Records regulations: The Federal rules restrict any use of the information to criminally investigate or prosecute any alcohol or drug abuse patient.[facility]In the event this information is protected by the Federal Confidentiality of Alcohol and Drug Abuse Patient Records regulations: The Federal rules restrict any use of the information to criminally investigate or prosecute any alcohol or drug abuse patient.[facility]In the event this information is protected by the Federal Confidentiality of Alcohol and Drug Abuse Patient Records regulations: The Federal rules restrict any use of the information to criminally investigate or prosecute any alcohol or drug abuse patient.[facility]In the event this information is protected by the Federal Confidentiality of Alcohol and Drug Abuse Patient Records regulations: The Federal rules restrict any use of the information to criminally investigate or prosecute any alcohol or drug abuse patient.[facility]In the event this information is protected by the Federal Confidentiality of Alcohol and Drug Abuse Patient Records regulations: The Federal rules restrict any use of the information to criminally investigate or prosecute any alcohol or drug abuse patient.[facility]In the event this information is protected by the Federal Confidentiality of Alcohol and Drug Abuse Patient Records regulations: The Federal rules restrict any use of the information to criminally investigate or prosecute any alcohol or drug abuse patient.[facility]In the event this information is protected by the Federal Confidentiality of Alcohol and Drug Abuse Patient Records regulations: The Federal rules restrict any use of the information to criminally investigate or prosecute any alcohol or drug abuse patient.[facility]In the event this information is protected by the Federal Confidentiality of Alcohol and Drug Abuse Patient Records regulations: The Federal rules restrict any use of the information to criminally investigate or prosecute any alcohol or drug abuse patient.[facility]In the event this information is protected by the Federal Confidentiality of Alcohol and Drug Abuse Patient Records regulations: The Federal rules restrict any use of the information to criminally investigate or prosecute any alcohol or drug abuse patient.[facility]In the event this information is protected by the Federal Confidentiality of Alcohol and Drug Abuse Patient Records regulations: The Federal rules restrict any use of the information to criminally investigate or prosecute any alcohol or drug abuse patient.[facility]In the event this information is protected by the Federal Confidentiality of Alcohol and Drug Abuse Patient Records regulations: The Federal rules restrict any use of the information to criminally investigate or prosecute any alcohol or drug abuse patient.[facility]In the event this information is protected by the Federal Confidentiality of Alcohol and Drug Abuse Patient Records regulations: The Federal rules restrict any use of the information to criminally investigate or prosecute any alcohol or drug abuse patient.[facility] HospitalIn the event this information is protected [...] or prosecute any alcohol or drug abuse patient.[facility] HospitalIn the event this information is protected by the Federal Confidentiality of Alcohol and Drug Abuse Patient Records regulations: The Federal rules restrict any use of the information to criminally investigate or prosecute any alcohol or drug abuse patient.[facility]In the event this information is protected by the Federal Confidentiality of Alcohol and Drug Abuse Patient Records regulations: The Federal rules restrict any use of the information to criminally investigate or prosecute any alcohol or drug abuse patient.[facility]In the event this information is protected by the Federal Confidentiality of Alcohol and Drug Abuse Patient Records regulations: The Federal rules restrict any use of the information to criminally investigate or prosecute any alcohol or drug abuse patient.[facility]In the event this information is protected by the Federal Confidentiality of Alcohol and Drug Abuse Patient Records regulations: The Federal rules restrict any use of the information to criminally investigate or prosecute any alcohol or drug abuse patient.[facility]In the event this information is protected by the Federal Confidentiality of Alcohol and Drug Abuse Patient Records regulations: The Federal rules restrict any use of the information to criminally investigate or prosecute any alcohol or drug abuse patient.[facility]In the event this information is protected by the Federal Confidentiality of Alcohol and Drug Abuse Patient Records regulations: The Federal rules restrict any use of the information to criminally investigate or prosecute any alcohol or drug abuse patient.[facility]In the event this information is protected by the Federal Confidentiality of Alcohol and Drug Abuse Patient Records regulations: The Federal rules restrict any use of the information to criminally investigate or prosecute any alcohol or drug abuse patient.[facility]In the event this information is protected by the Federal Confidentiality of Alcohol and Drug Abuse Patient Records regulations: The Federal rules restrict any use of the information to criminally investigate or prosecute any alcohol or drug abuse patient.[facility] HospitalIn the event this information is protected by the Federal Confidentiality of Alcohol and Drug Abuse Patient Records regulations: The Federal rules restrict any use of the information to criminally investigate or prosecute any alcohol or drug abuse patient.[facility] HospitalIn the event this information is protected by the Federal Confidentiality of Alcohol and Drug Abuse Patient Records regulations: The Federal rules restrict any use of the information to criminally investigate or prosecute any alcohol or drug abuse patient.[facility] HospitalIn the event this information is protected by the Federal Confidentiality of Alcohol and Drug Abuse Patient Records regulations: The Federal rules restrict any use of the information to criminally investigate or prosecute any alcohol or drug abuse patient.[facility] Reason for Visit (unrecogniz ed section [...] W/O & W/CONTRAST MATERIAL David Kumari MD [address] [place] [address] [place] [address] [place] [address] Referral ID Status Reason Start Date Expiration Date V isits Requested Visits Authorized [id number] Closed Auto-Generate d Referral 11/15/2022 12/15/2023 1 [...] PROSTATE 39FX PLUS SIM David Kumari MD [address] [place] [address] [place] [address] David Kumari MD [address] [place] [address] [place] [address] Referral ID Status Reason Start Date Expiration Date Visits Re quested Visits Authorized [id number] Closed 11/23/2022 06/05/2023 40 40 Reason Comments Prostate Cancer Followup Reason Comments Hematuria Reason Comments Radiology CT Specialty Diagnoses / Procedures [facility] Diagnoses Prostate cancer (HCC) Procedures IMAGING STUDY ORDERED Yosef Grimes MD [address] [place] [address] [facility] [address] [place] [address] Referral ID Status Reason Start Date Expiration Date Visits Requested Visits Authorized [id number] Pending Review Patient Cleared - Admin/Chair man/Directo r advise to proceed or did not respond 01/10/2024 07/08/2024 1 1 Reason Comments Radio Gen RMP Care Team (unrecognized sect ion and content) Team Status: Inactive Member Role Status Dates Angelina Holder , COAT FINISHER-C Attending Provider Active [employer]andem Mill Sticker Relationship Specialty Start Date End Date Shahriar Stephenson MD [address] [place] [address] PCP - General Family Medicine 11/15/22 [employer] St[employer] Relationship Specialty Start Date End Date Shahriar Stephenson MD [address] [place] [address] PCP - General Family Medicine 11/15/22 [employer] Sticker Relationship Specialty Start Date End Date Shahriar Stephenson MD [address] [place], [place] [id number] PCP - General Family Medicine 11/15/22 [employer]andem Mill Sticker Relationship Specialty Start Date End Date Shahriar Stephenson MD [address] [place] [address] PCP - General Family Medicine 11/15/22 David Kumari MD [address] [place] [address] Physician Radiation Oncology 12/12/22 Elio Payne, CRISTEL.EXHIBITS COORDINATOR [address] [place] [address] Nurse Practitioner Hematology/Oncology 12/12/22 Nicolas Hwang MD [address] [place] [address] Physician Hematology/Oncology 12/12/22 Nancy Ray, RN [address] [place] [address] Specialty Audit Director Hematology/Oncology 12/12/22 Tandem Mill Sticker Relationship Specialty Start Date End Date Shahriar Stephenson MD [address] [address] PCP - General Family Medicine 11/15/22 Tandem Mill Sticker Relationship Specialty Start Date End Date Shahriar Stephenson MD [address] [place] [address] PCP - General Family Medicine 11/15/22 David Kumari MD [address] [place] [address] [place] [address] Physician Radiation Oncology 12/12/22 Elio Payne, CRISTEL.EXHIBITS COORDINATOR [address] [place] [address] Nurse Practitioner Hematology/Oncology 12/12/22 Nicolas Hwang MD [address] [place] [address] Physician Hematology/Oncology 12/12/22 Nancy Ray, SINDI [address] [place] [address] Specialty Audit Director Hematology/Oncology 12/12/22 Tandem Mill Sticker Relationship Specialty Start Date End Date Shahriar Stephenson MD [address] [place] [address] PCP - General Family Medicine 11/15/22 David Kumari MD [address] [place] [address] Physician Radiation Oncology 12/12/22 Elio Payne, BACK TENDER PULP DRIER.EXHIBITS COORDINATOR [address] [place] [address] Nurse Practitioner Hematology/Oncology 12/12/22 Nicolas Hwang MD [address] [facility] [address] Physician Hematology/Oncology 12/12/22 Nancy Ray, SINDI [address] [facility] [place] [address] Specialty Audit Director Hematology/Oncology 12/12/22 Tandem Mill Sticker Relationship Specialty Start Date End Date Shahriar Stephenson MD [address] [place] [address] PCP - General Family Medicine 11/15/22 David Kumari MD [address] [facility] [address] Physician Radiation Oncology 12/12/22 Elio Payne, BACK TENDER PULP DRIER.EXHIBITS COORDINATOR [address] [place] [address] Nurse Practitioner Hematology/Oncology 12/12/22 Nicolas Hwang MD [address] [place] [address] Physician Hematology/Oncology 12/12/22 Nancy Ray, SINDI [address] [place] [address] Specialty Audit Director Hematology/Oncology 12/12/22 Tandem Mill Sticker Relationship Specialty Start Date End Date Shahriar Stephenson MD [facility] [place] [address] PCP - General Family Medicine 11/15/22 David Kumari MD [address] [place] [address] [place] [address] Physician Radiation Oncology 12/12/22 Elio Payne, BACK TENDER PULP DRIER.EXHIBITS COORDINATOR [address] [place] [address] Nurse Practitioner Hematology/Oncology 12/12/22 Nicolas Hwang MD [address] [place] [address] [place] [address] Physician Hematology/Oncology 12/12/22 Nancy Ray, SINDI [address] [place] [address] Specialty Audit Director Hematology/Oncology 12/12/22 Tandem Mill Sticker Relationship Specialty Start Date End Date Shahriar Stephenson MD [facility] [place] [address] PCP - General Family Medicine 11/15/22 David Kumari MD [address] [place] [address] Physician Radiation Oncology 12/12/22 Elio Payne, BACK TENDER PULP DRIER.EXHIBITS COORDINATOR [address] [facility] [address] Nurse Practitioner Hematology/Oncology 12/12/22 Nicolas Hwang MD [address] [place] [address] Physician Hematology/Oncology 12/12/22 Nancy Ray, SINDI [address] [facility] [place] [address] Specialty Audit Director Hematology/Oncology 12/12/22 Tandem Mill Sticker Relationship Specialty Start Date End Date Shahriar Stephenson MD [address] [place] [address] PCP - General Family Medicine 11/15/22 David Kumari MD [address] [place] [address] Physician Radiation Oncology 12/12/22 Elio Payne, BACK TENDER PULP DRIER.EXHIBITS COORDINATOR [address] [place] [address] Nurse Practitioner Hematology/Oncology 12/12/22 Nicolas Hwang MD [address] [place] [address] Physician Hematology/Oncology 12/12/22 Nancy Ray, SINDI [address] [facility] [place] [address] Specialty Audit Director Hematology/Oncology 12/12/22 Tandem Mill Sticker Relationship Specialty Start Date End Date Shahriar Stephenson MD [address] [place] [address] PCP - General Family Medicine 11/15/22 David Kumari MD [address] [place] [address] Physician Radiation Oncology 12/12/22 Elio Payne, BACK TENDER PULP DRIER.EXHIBITS COORDINATOR [address] [place] [address] Nurse Practitioner Hematology/Oncology 12/12/22 Nicolas Hwang MD [address] [place] [address] Physician Hematology/Oncology 12/12/22 Nancy Ray, SINDI [address] [place] [address] Specialty Audit Director Hematology/Oncology 12/12/22 Tandem Mill Sticker Relationship Specialty Start Date End Date Shahriar Stephenson MD [address] [place] [address] PCP - General Family Medicine 11/15/22 David Kumari MD [address] [place] [address] Physician Radiation Oncology 12/12/22 Elio Payne, BACK TENDER PULP DRIER.EXHIBITS COORDINATOR [address] [place] [address] Nurse Practitioner Hematology/Oncology 12/12/22 Nicolas Hwang MD [address] [place] [address] Physician Hematology/Oncology 12/12/22 Nancy Ray, SINDI [address] [place] [address] Specialty Audit Director Hematology/Oncology 12/12/22 Tandem Mill Sticker Relationship Specialty Start Date End Date Shahriar Stephenson MD [address] [place] [address] PCP - General Family Medicine 11/15/22 David Kumari MD [address] [facility] [address] Physician Radiation Oncology 12/12/22 Elio Payne, BACK TENDER PULP DRIER.EXHIBITS COORDINATOR [address] [facility] [address] Nurse Practitioner Hematology/Oncology 12/12/22 Nicolas Hwang MD [address] [facility] [address] Physician Hematology/Oncology 12/12/22 Nancy Ray, SINDI [address] [facility] [place] [address] Specialty Audit Director Hematology/Oncology 12/12/22 Tandem Mill Sticker Relationship Specialty Start Date End Date Shahriar Stephenson MD [address] [place] [address] PCP - General Family Medicine 11/15/22 David Kumari MD [address] [facility] [address] Physician Radiation Oncology 12/12/22 Elio Payne, BACK TENDER PULP DRIER.EXHIBITS COORDINATOR [address] [place] [address] Nurse Practitioner Hematology/Oncology 12/12/22 Nicolas Hwang MD [address] [place] [address] Physician Hematology/Oncology 12/12/22 Nancy Ray, SINDI [address] [place] [address] Specialty Audit Director Hematology/Oncology 12/12/22 Tandem Mill Sticker Relationship Specialty Start Date End Date Shahriar Stephenson MD [facility] [place] [address] PCP - General Family Medicine 11/15/22 David Kumari MD [address] [facility] [facility] [place] [address] Physician Radiation Oncology 12/12/22 Elio Payne APRN.EXHIBITS COORDINATOR [address] [facility] [facility] [place] [address] Nurse Practitioner Hematology/Oncology 12/12/22 Nicolas Hwang MD [address] [facility] [place] [address] Physician Hematology/Oncology 12/12/22 Nancy Ray, SINDI [address] [facility] [place] [address] Specialty Audit Director Hematology/Oncology 12/12/22 Tandem Mill Sticker Relationship Specialty Start Date End Date Shahriar Stephenson MD [address] [place] [address] PCP - General Family Medicine 11/15/22 David Kumari MD [address] [facility] [place] [address] Physician Radiation Oncology 12/12/22 Elio Payne, BACK TENDER PULP DRIER.EXHIBITS COORDINATOR [address] [facility] [place] [address] Nurse Practitioner Hematology/Oncology 12/12/22 Nicolas Hwang MD [address] [facility] [place] [address] Physician Hematology/Oncology 12/12/22 Nancy Ray, RN [address] [facility] [facility] [place] [address] Specialty Audit Director Hematology/Oncology 12/12/22 Tandem Mill Sticker Relationship Specialty Start Date End Date Shahriar Stephenson MD [facility] [place] [address] PCP - General Family Medicine 11/15/22 David Kumari MD [address] [facility] [place] [address] Physician Radiation Oncology 12/12/22 Elio Payne, BACK TENDER PULP DRIER.EXHIBITS COORDINATOR [address] [facility] [place] [address] Nurse Practitioner Hematology/Oncology 12/12/22 Nicolas Hwang MD [address] [facility] [place] [address] Physician Hematology/Oncology 12/12/22 Nancy Ray, SINDI [address] [facility] [place] [address] Specialty Audit Director Hematology/Oncology 12/12/22 Tandem Mill Sticker Relationship Specialty Start Date End Date Shahriar Stephenson MD [address] [place] [address] PCP - General Family Medicine 11/15/22 David Kumari MD [address] [facility] [address] Physician Radiation Oncology 12/12/22 Elio Payne, BACK TENDER PULP DRIER.EXHIBITS COORDINATOR [address] [facility] [place] [address] Nurse Practitioner Hematology/Oncology 12/12/22 Nicolas Hwang MD [address] [facility] [address] Physician Hematology/Oncology 12/12/22 Nancy Ray, SINDI [address] [facility] [facility] [place] [address] Specialty Audit Director Hematology/Oncology 12/12/22 Tandem Mill Sticker Relationship Specialty Start Date End Date Shahriar Stephenson MD [address] [place] [address] PCP - General Family Medicine 11/15/22 David Kumari MD [address] [facility] [place] [address] Physician Radiation Oncology 12/12/22 Elio Payne, BACK TENDER PULP DRIER.EXHIBITS COORDINATOR [address] [facility] [place] [address] Nurse Practitioner Hematology/Oncology 12/12/22 Nicolas Hwang MD [address] [place] [address] [place] [address] Physician Hematology/Oncology 12/12/22 Nancy Ray, RN [address] [facility] [place] [address] Specialty Audit Director Hematology/Oncology 12/12/22 Tandem Mill Sticker Relationship Specialty Start Date End Date Shahriar Stephenson MD [address] [place] [address] PCP - General Family Medicine 11/15/22 David Kumari MD [address] [place] [address] [place] [address] Physician Radiation Oncology 12/12/22 Elio Payne APRN.EXHIBITS COORDINATOR [address] [place] [address] [place] [address] Nurse Practitioner Hematology/Oncology 12/12/22 Nicolas Hwang MD [address] [place] [address] [place] [address] Physician Hematology/Oncology 12/12/22 Nancy Ray, SINDI [address] [facility] [place] [address] Specialty Audit Director Hematology/Oncology 12/12/22 Tandem Mill Sticker Relationship Specialty Start Date End Date Shahriar Stephenson MD [address] [place], [place] [address] [address] PCP - General Family Medicine 11/15/22 David Kumari MD [address] [place] [address] [place] [address] Physician Radiation Oncology 12/12/22 Elio Payne, BACK TENDER PULP DRIER.EXHIBITS COORDINATOR [address] [facility] [place] [address] Nurse Practitioner Hematology/Oncology 12/12/22 Nicolas Hwang MD [address] [place] [address] Physician Hematology/Oncology 12/12/22 Nancy Ray, SINDI [address] [facility] [place] [address] Specialty Audit Director Hematology/Oncology 12/12/22 Tandem Mill Sticker Relationship Specialty Start Date End Date Shahriar Stephenson MD [facility] [place] [address] PCP - General Family Medicine 11/15/22 David Kumari MD [address] [facility] [place] [address] Physician Radiation Oncology 12/12/22 Elio Payne, BACK TENDER PULP DRIER.EXHIBITS COORDINATOR [address] [facility] [place] [address] Nurse Practitioner Hematology/Oncology 12/12/22 Nicolas Hwang MD [address] [facility] [place] [address] Physician Hematology/Oncology 12/12/22 Nancy Ray, SINDI [address] [facility] [place] [address] Specialty Audit Director Hematology/Oncology 12/12/22 Tandem Mill Sticker Relationship Specialty Start Date End Date Shahriar Stephenson MD [address] [place] [address] PCP - General Family Medicine 11/15/22 Tandem Mill Sticker Relationship Specialty Start Date End Date Shahriar Stephenson MD [address] [place] [address] PCP - General Family Medicine 11/15/22 David Kumari MD [address] [facility] [place] [address] Physician Radiation Oncology 12/12/22 Elio Payne, BACK TENDER PULP DRIER.EXHIBITS COORDINATOR [address] [facility] [place] [address] Nurse Practitioner Hematology/Oncology 12/12/22 Nicolas Hwang MD [address] [facility] [facility] [place] [address] Physician Hematology/Oncology 12/12/22 Nancy Ray, SINDI [address] [facility] [place] [address] Specialty Audit Director Hematology/Oncology 12/12/22 Tandem Mill Sticker Relationship Specialty Start Date End Date Shahriar Stephenson MD [address] [place] [address] PCP - General Family Medicine 11/15/22 David Kumari MD [address] [facility] [place] [address] Physician Radiation Oncology 12/12/22 Elio Payne, BACK TENDER PULP DRIER.EXHIBITS COORDINATOR [address] [facility] [facility] [place] [address] Nurse Practitioner Hematology/Oncology 12/12/22 Nicolas Hwang MD [address] [place] [address] [place] [address] Physician Hematology/Oncology 12/12/22 Nancy Ray, RN [address] [facility] [place] [address] Specialty Audit Director Hematology/Oncology 12/12/22 Team Status: Active Member Role Status Dates NON STAFF Primary Care Provider Active Start: January 13, 2024 Samir Mantilla DO Attending Provider Active Sta rt: January 13, 2024 Team Status: Inactive Member Role Status Dates Yosef Grimes MD Attending Provider Active St art: February 22, 2024 End: February 22, 2024 Tandem Mill Sticker Relationship Specialty Start Date End Date Shahriar Stephenson MD [facility] [address] [place] [id number] PCP - General Family Medicine 11/15/22 David Kumari MD [address] [place] [address] [place] [address] Physician Radiation Oncology 12/12/22 Elio Payne APRN.EXHIBITS COORDINATOR [address] [facility] [place] [address] Nurse Practitioner Hematology/Oncology 12/12/22 Nicolas Hwang MD [address] [place] [address] [place] [address] Physician Hematology/Oncology 12/12/22 Nancy Ray, RN [address] [facility] [place] [address] Specialty Audit Director Hematology/Oncology 12/12/22 Tandem Mill Sticker Relationship Specialty Start Date End Date Shahriar Stephenson MD [address] [place] [address] PCP - General Family Medicine 11/15/22 David Kumari MD [address] [place] [address] Physician Radiation Oncology 12/12/22 Elio Payne, BACK TENDER PULP DRIER.EXHIBITS COORDINATOR [address] [facility] [facility] [address] Nurse Practitioner Hematology/Oncology 12/12/22 Nicolas Hwang MD [address] [facility] [facility] [address] Physician Hematology/Oncology 12/12/22 Nancy Ray, SINDI [address] [facility] [facility] [address] Specialty Audit Director Hematology/Oncology 12/12/22 Tandem Mill Sticker Relationship Specialty Start Date End Date Shahriar Stephenson MD [address] [place] [address] PCP - General Family Medicine 11/15/22 David Kumari MD [address] [facility] [address] Physician Radiation Oncology 12/12/22 Elio Payne, BACK TENDER PULP DRIER.EXHIBITS COORDINATOR [address] [facility] [facility] [address] Nurse Practitioner Hematology/Oncology 12/12/22 Nicolas Hwang MD [address] [facility] [facility] [address] Physician Hematology/Oncology 12/12/22 Nancy Ray, RN [address] [facility] [place] [address] Specialty Audit Director Hematology/Oncology 12/12/22 (unrecognized sect ion and content) No Status Records FoundNo Status Records FoundNo Status Records FoundNo Status Records FoundNo Status Records FoundNo Status Records FoundNo Status Records Found INFORMATION SOURCE (unrecogn ized section and content) DATE CREATED AUTHOR 10/17/2021 [facility] DATE CREATED AUTHOR AUTHOR'S ORGANIZ ATION 01/06/2024 [facility] DATE CREATED AUTHOR AUTHOR'S ORGANIZ ATION 02/29/2024 [facility] DATE CREATED AUTHOR AUTHOR'S ORGANIZ ATION 03/01/2024 [facility] DATE CREATED AUTHOR AUTHOR'S ORGANIZ ATION 03/05/2024 [facility] DATE CREATED AUTHOR AUTHOR'S ORGANIZ ATION 06/12/2024 [facility] DATE CREATED AUTHOR AUTHOR'S ORGANIZ ATION 09/27/2024 [facility] Goals (unrecognized section and [...] BE BASED ON THE PRIMARY CLINICAL RECORDS. [email or web address]. provides no warranty or guarantee of the accuracy or completeness of information in this document.
[2024-10-11] MEDS: OXYCODONE HCL/ACETAMINOPHEN 5MG/325MG 1 TAB PO (16:39)
--- NOTE | 2024-10-11 18:13 | PC.NURSE ---
this RN forgot to give patient his outpatient lab requisition form. This RN made contact with the patient at home and told him the form would be here at the desk if someone could come pick it up before monday.
--- NOTE | 2024-10-14 11:16 | CM.NOTE ---
Called pt at home for reminder of Chem 8 to be drawn today. Lab has order and he would check in at the front desk auxiliary. Pt states he is having a significant amount of pain today and unsure if he could come in. Discussed with pt importance of obstructive kidney stone and need for lab work. Explained to pt if the pain was that intense he should come to ER or call urologist for further recommendations.
--- NOTE | 2024-10-14 11:49 | CM.DCFOLLOWU ---
See case management note 10/14/24
--- NOTE | 2024-10-14 14:25 | CM.DCFOLLOWU ---
Person spoke with: Adolph How are you feeling? Still having pain How is your pain? still having flank pain Did you understand your discharge instructions? Yes Do you have any questions about your discharge instructions? No Were you given any prescriptions at discharge? Yes Were you able to get your prescriptions filled? Yes Do you understand how to take your medications as ordered? Yes Do you have any questions about your follow up appointment and do you plan to keep your follow up appointment? My appointment is scheduled with urology. Pt continues to have pain encouraged pt to reach out to oncology office for recommendations. Pt did come to hospital today for f/u Chem 8 and was faxed to oncology office Is there anything else that you would like to discuss? No Questions/Comments/Concerns/Other:
== END 2024-10-11 17:14 | disposition home or self-care (01) ==
LOC: ER 17:47 → MS 10-11 00:12
PROVIDERS: Urology; Admitting Provider Internal Medicine; Emergency Provider Student in an Organized Health Care Education/Training Program; Visit Provider Internal Medicine
PROC: (CPT 52332; principal; 2024-10-11 13:00)
DX: N13.2 Hydronephrosis with renal and ureteral calculous obstruction (principal); N17.9 Acute kidney failure, unspecified; N13.5 Crossing vessel and stricture of ureter without hydronephrosis; Z87.440 Personal history of urinary (tract) infections; Z90.79 Acquired absence of other genital organ(s); Z85.46 Personal history of malignant neoplasm of prostate; I48.91 Unspecified atrial fibrillation; C79.11 Secondary malignant neoplasm of bladder; I12.9 Hypertensive chronic kidney disease with stage 1 through stage 4 chronic kidney disease, or unspecified chronic kidney disease; N18.9 Chronic kidney disease, unspecified; R50.9 Fever, unspecified
CPT/HCPCS: 52332; 52351; 36415; 74176; 74420; 80048; 80053; 81001; 83735; 84484; 85007; 85025; 85027; 85610; 93005; 96365; 96366; 96375; 99285; G0378; J0330; J0690; J0696; J1100; J1171; J1200; J1885; J2371; J2405; J2704; Q9967

== ENCOUNTER 2024-10-14 11:54 | Outpatient (OUT) | payer MEDICARE, SELFPAY ==
[2024-10-14 13:11] LABS: Anion Gap 16.0; Blood Urea Nitrogen 44.0 mg/dL (7.0-18.0); Calcium 9.3 mg/dL (8.5-10.1); Carbon Dioxide 28.7 mmol/L (21.0-32.0); Chloride 104 mmol/L (98-107); Estimated GFR (African America 41 (>=60 mL/min/1.73m^2); Estimated GFR (Non-African Ame 34 (>=60 mL/min/1.73m^2); Glucose 197 mg/dL (74-106); Potassium 3.7 mmol/L (3.5-5.1); Sodium 145 mmol/L (136-145)
--- OUTSIDE RECORDS SUMMARY | 2024-10-21 09:42 | XMS_ITS | Clinical Summary ---
Author Organization [facility] Address [address] [place], [place] [id number] Care Team Providers Care Patient Service Specialist Name Role Phone Holden Cameron MD Primary Care Provider David Medley MD Unavailable [phone] Cathy Lawson SUPPLY TEACHER.LEAF BLENDER Unavailable [phone] Nancy Ray RN Unavailable [phone] Allergies Active Allergy Reactions Criticality Noted Date [...] is lower risk 6 11/15/2022 Data from: https://www.neighborhoodatlas.medicine.[facility]/. Last address used for calculation [address] 11/15/2022 Sex and Gender Information Value [...] Description 11/12/2024 9:00 AM EDT Office Visit [facility] [address] [place] [address] 6 month follow up with lab 11/13/2024 1:30 PM EDT Visit (SP) Office Hematology/Oncology [address] [place] [address] Minoo Bella, CRISTEL.LEAF BLENDER [address] [place] [address] 6 month follow up with lab 11/13/2024 2:00 PM EDT Office Visit Radiation [place] [place] [address] David Medley MD [address] [place] [address] 6 month follow up with lab Health [...] - 99 mg/dL 05/15/2024 1:46 PM EDT [facility] Comment: The [place] Diabetes Association (ADA) provides guidance for cutoff [...] Standards of Medical Care in Diabetes 2016, [place] [employer]. Diabetes Care. 2016.39(Suppl 1). BUN 20 9 - 24 mg/dL 05/15/2024 1:46 PM EDT [facility] Creatinine 1.40(H) 0.73 - 1.22 mg/dL 05/15/2024 1:46 PM EDT [facility] Sodium 141 136 - 144 mmol/L 05/15/2024 1:46 PM EDT [facility] Potassium 4.0 3.7 - 5.1 mmol/L 05/15/2024 1:46 PM EDT [facility] Chloride 103 98 - 107 mmol/L 05/15/2024 1:46 PM EDT [facility] CO2 24 22 - 30 mmol/L 05/15/2024 1:46 PM EDT [facility] Anion Gap 14 8 - 15 mmol/L 05/15/2024 1:46 PM EDT [facility] Calcium, Total 10.2 8.5 - 10.2 mg/dL 05/15/2024 1:46 PM EDT [facility] Estimated Glomerular Filtration Rate 52(L) >=60 mL/min/1. 73m 05/15/2024 1:46 PM EDT [facility] Comment:Estimated Glomerular Filtration Rate (eGFR) is [...] Nicolas Hwang MD LABORATORY Final Re sult [facility] [address] [place] [address] from Last 3 Months or Most Recently Relevant to Health Maintenance Insurance AET[employer] MEDICARE Care Teams Patient Service Specialist Relationship Specialty Start Date End Date Holden Cameron MD [address] [place] [address] PCP - General Family Medicine 11/15/22 David Medley MD [address] [place] [address] [place] [address] Physician Radiation Oncology 12/12/22 Cathy Lawson APRN.CNP [address] [place] [address] Nurse Practitioner Hematology/Oncology 12/12/22 Nancy Ray, SINDI [address] [place] [address] Specialty Card Checker Hematology/Oncology 12/12/22
--- OUTSIDE RECORDS SUMMARY | 2024-10-21 09:42 | XMS_ITS | Encounter Summary ---
Author Organization [facility] Address [address] [place] [address] Care Team Providers Care Armored Service Technician Name Role Phone Holden Cameron MD Primary Care Provider [phone] David Medley MD Unavailable [phone] Cathy Lawson APRN.INCOME TAX INVESTIGATOR Unavailable [phone] Nicolas Hwang MD Unavailable Unavail able Nancy Ray RN Unavailable Source Comments In the event this information is protected by the Federal Confidentiality of Alcohol and Drug AbusePatient Records regulations: The Federal rules restrict any use of the information to criminally investigate or prosecute any alcohol or drug abuse patient.[facility] Encounter Details Date Type Department Care Team (Late st Contact Info) Description 11/24/2022 Patient Msg MRI Q [address] [address] Provider, Ccf MRI PROSTATE PREP INSTRUCTIONS Social [...] is lower risk 6 11/15/2022 Data from: https://www.neighborhoodatlas.medicine.[facility].edu/. Last address used for calculation [address] 11/15/2022 Sex and Gender Information Value Date Recorded Sex Assigned at Not on file Legal Sex Male 3:06 PM EDT Gender Identity Not on file Sexual Orientation Not on file documented as of this encounter Plan of Treatment Upcoming Encounters Date Type Department Care Team (Latest Contact Info) Description 11/12/2024 9:00 AM EDT Office Visit [facility] Laboratory [address] [facility] [place] [address] 6 month follow up with lab 11/13/2024 1:30 PM EDT Visit (SP) Office Hematology/Oncology [address] [place] [address] [place] [address] Minoo Bella, GUN EXAMINER.INCOME TAX INVESTIGATOR [address] [facility] [place] [address] 6 month follow up with lab 11/13/2024 2:00 PM EDT Office Visit Radiation Oncology [facility] [place] [address] David Medley MD [address] [place] [address] [place] [address] 6 month follow up with lab documented as of this encounter Visit Diagnoses Not on filedocumented in this encounter Care Teams Armored Service Technician Relationship Specialty Start Date End Date Holden Cameron MD [address] [place] [address] PCP - General Family Medicine 11/15/22 David Medley MD [address] [place] [address] [place] [address] Physician Radiation Oncology 12/12/22 Cathy Lawson, CRISTEL.INCOME TAX INVESTIGATOR [facility] [place] [address] Nurse Practitioner Hematology/Oncology 12/12/22 Nicolas Hwang MD [address] [place] [address] Physician Hematology/Oncology 12/12/22 08/11/24 Nancy Ray, SINDI [address] [place] [address] Specialty Security Director Hematology/Oncology 12/12/22 documented as of this encounter
--- OUTSIDE RECORDS SUMMARY | 2024-10-21 09:42 | XMS_ITS | Clinical Summary ---
Author Organization [facility] Address [address] [place] [address] Care Team Providers Care Publishing Director Name Role Phone Unavailable Primary Care Provider [...]
--- OUTSIDE RECORDS SUMMARY | 2024-10-21 09:42 | XMS_ITS | Clinical Summary ---
Author Organization [facility] Address [address] [place] [address] Care Team Providers Care Supervisor Public Health Nursing Name Role Phone Celestina Chanel MD Primary Care Provider Allergies Active Allergy Reactions Criticality Noted Date [...] Insurance AETNA MEDICARE PLAN (PPO) Care Teams Supervisor Public Health Nursing Relationship Specialty Start Date End Date Celestina Chanel MD [address] [place] [address] PCP - General Family Medicine 11/05/14
--- OUTSIDE RECORDS SUMMARY | 2024-10-21 09:42 | XMS_ITS | Encounter Summary ---
Author Organization [facility] Address [address] [place] [address] Care Team Providers Care Fiberglass Tube Molder Name Role Phone Holden Cameron MD Primary Care Provider [phone] David Medley MD Unavailable [phone] Cathy Lawson APRN.CHURN OPERATOR MARGARINE Unavailable [phone] Nicolas Hwang MD Unavailable Unavail able Nancy Ray RN Unavailable [phone] Source Comments In the event this information is protected by the Federal Confidentiality of Alcohol and Drug AbusePatient Records regulations: The Federal rules restrict any use of the information to criminally investigate or prosecute any alcohol or drug abuse patient.[facility] Encounter Details Date Type Department Care Team (Late st Contact Info) Description 11/26/2022 [place] [address] Provider, Ccf Questionnaire Submission Social History Tobacco [...] is lower risk 6 11/15/2022 Data from: https://www.neighborhoodatlas.[facility].edu/. Last address used for calculation [address] 11/15/2022 Sex and Gender Information Value Date Recorded Sex Assigned at Not on file Legal Sex Male 3:06 PM EDT Gender Identity Not on file Sexual Orientation Not on file documented as of this encounter Plan of Treatment Upcoming Encounters Date Type Department Care Team (Latest Contact Info) Description 11/12/2024 9:00 AM EDT Office Visit [facility] Laboratory [address] [place] [address] 6 month follow up with lab 11/13/2024 1:30 PM EDT Visit (SP) Office Hematology/Oncology [address] [place] [address] [place] [address] Minoo Bella, CRISTEL.CHURN OPERATOR MARGARINE [address] [place] [address] 6 month follow up with lab 11/13/2024 2:00 PM EDT Office Visit Radiation Oncology [address] [place] [address] [place] [address] David Medley MD [address] [place] [address] [place] [address] 6 month follow up with lab documented as of this encounter Visit Diagnoses Not on filedocumented in this encounter Care Teams Fiberglass Tube Molder Relationship Specialty Start Date End Date Holden Cameron MD [address] [place] [address] PCP - General Family Medicine 11/15/22 David Medley MD [address] [place] [address] [place] [address] Physician Radiation Oncology 12/12/22 Cathy Lawson, CRISTEL.CHURN OPERATOR MARGARINE [address] [place] [address] [place] [address] Nurse Practitioner Hematology/Oncology 12/12/22 Nicolas Hwang MD [address] [place] [address] Physician Hematology/Oncology 12/12/22 08/11/24 Nancy Ray, SINDI [address] [place] [address] Specialty Fiber Drier Operator Hematology/Oncology 12/12/22 documented as of this encounter
--- OUTSIDE RECORDS SUMMARY | 2024-10-21 09:43 | XMS_ITS | Encounter Summary ---
Author Organization [facility] Address [address] [place] [address] Care Team Providers Care Combination Presser Name Role Phone Holden Cameron MD Primary Care Provider [phone] David Medley MD Unavailable [phone] Cathy Lawson MULTIPLE EFFECT EVAPORATOR OPERATOR.CHILD CARE ASSOCIATE TEACHER Unavailable [phone] Nicolas Hwang MD Unavailable Unavail able Nancy Ray RN Unavailable [phone] Source Comments In the event this information is protected by the Federal Confidentiality of Alcohol and Drug AbusePatient Records regulations: The Federal rules restrict any use of the information to criminally investigate or prosecute any alcohol or drug abuse patient.[facility] Encounter Details Date Type Department Care Team (Late st Contact Info) Description 12/13/2022 Lab Requisition [facility] [address] [place] [address] Nicolas Hwang MD Person encountering health services to consult on behalf of another person Social History Tobacco Use Types Packs/Day Years [...] is lower risk 6 11/15/2022 Data from: https://www.neighborhoodatlas.medicine.[facility].edu/. Last address used for calculation [address] 11/15/2022 Sex and Gender Information Value Date Recorded Sex Assigned at Not on file Legal Sex Male 3:06 PM EDT Gender Identity Not on file Sexual Orientation Not on file documented as of this encounter Plan of Treatment Upcoming Encounters Date Type Department Care Team (Latest Contact Info) Description 11/12/2024 9:00 AM EDT Office Visit [facility] [address] [place], [place] [address] 6 month follow up with lab 11/13/2024 1:30 PM EDT Visit (SP) Office Hematology/Oncology [address] [place] [address] Minoo Bella APRN.CHILD CARE ASSOCIATE TEACHER [address] [place] [address] 6 month follow up with lab 11/13/2024 2:00 PM EDT Office Visit Radiation Oncology [address] [address] David Medley MD [address] [place] [address] 6 month follow up with lab documented as of this encounter Procedures Procedure Name Priority Date/Time Associated Diagnosis Comments OUTSIDE SURG PATH SLIDE REVIEW Routine 12/13/2022 1:57 PM EST Person encountering health services to consult on behalf of another person documented in this encounter Results * OUTSIDE SURG PATH SLIDE REVIEW (12/13/2022 1:57 PM EST) Case Report Surgical Pathology Report Case: [id number] Authorizing Provider: Nicolas Hwang MD Collected: 12/13/2022 01:57 PM Ordering Location: Hosp Lab Main Received: 12/13/2022 01:54 PM Pathologist: Andreas Saravia MD Specimen: SLIDE(S), 20 SLIDES [id number] 12/13/2022 3:55 PM EST [facility] FINAL DIAGNOSIS A. Urinary bladder, tumor, transurethral resection: ([id number], 11/10/2022) - Metastatic poorly-differenti ated prostatic adenocarcinoma. 12/13/2022 3:55 PM EST [facility] at 1555 EST Performing Lab Diagnostic interpretation performed at [facility], [address] [place] [address] CLIA# [id number] Cut Plug Packer: Deacon Hatch M.D. 12/13/2022 3:55 PM EST [facility] Blocks or Slides MICROSCOPE SLIDE / Unknown 12/13/2022 1:57 PM EST 12/13/2022 1:54 PM EST us Nicolas Hwang MD SURGICAL PATHOLOGY Final Result [facility] [address] [place] [address] [place] [address], documented in this encounter Visit Diagnoses Diagnosis Person encountering health services to consult on behalf of another person Other person consulting on behalf of another person documented in this encounter Care Teams Combination Presser Relationship Specialty Start Date End Date Holden Cameron MD [address] [place] [address] PCP - General Family Medicine 11/15/22 David Medley MD [address] [place] [address] Physician Radiation Oncology 12/12/22 Cathy Lawson APRN.CHILD CARE ASSOCIATE TEACHER [address] [place] [address] Nurse Practitioner Hematology/Oncology 12/12/22 Nicolas Hwang MD [address] [place] [address] Physician Hematology/Oncology 12/12/22 08/11/24 Nancy Ray, RN [address] [place] [address] Specialty Rabbit Fancier Hematology/Oncology 12/12/22 documented as of this encounter
--- OUTSIDE RECORDS SUMMARY | 2024-10-21 09:45 | XMS_ITS | CCD ---
Author Organization [facility] Care Team Providers Care Action Installer Name Role Phone Unavailable Primary Care Provider UnavailAzucena Johnson Unavailable Unavailable Primary Care Provider UnavailGURMEET Negron Primary Care Physician DARÍO, DR GURMEET Haque Admitting Unavailable CHANEL, DR GURMEET Haque Attending Unavailable CHANEL, DR GURMEET Haque Primary Care Unavailable CHANEL, DR GURMEET Haque Consulting Unavailable ZIEBER, DR MIA Bunch Consulting Unavailable CHANEL, DR GURMEET Haque Admitting Unavailable CHANEL, DR GURMEET Haque Attending Unavailable CHANEL, DR GURMEET Haque Primary Care Unavailable CHANEL, DR GURMEET Haque Consulting Unavailable JERSEY MILLS, DR CHAIM Canales Consulting Unavailable CHANEL, DR GURMEET Haque Admitting Unavailable CHANEL, DR GURMEET Haque Attending Unavailable CHANEL, DR GURMEET Haque Primary Care Unavailable CHANEL, DR GURMEET aHque Consulting Unavailable ZIEBER, DR MIA Bunch Consulting Unavailable CORNELIO, DR NAVAS Admitting Unavailable GRIMES, DR NAVAS Attending Unavailable CHANEL, DR GURMEET Haque Primary Care Unavailable MAXIMILIANMARISSA Consulting Unavailable GABRIELAKAREN Admitting Unavailable GABRIELAKAREN Attending Unavailable CHANEL, DR GURMEET Haque Primary Care Unavailable GABRIELAKAREN Consulting Unavailable Unavailable Primary Care Provider Unavailrazia haque Unavailable Primary Care Provider UnavailShahriar Gordon. Primary Care Physician [phone] Angelina Holder Unavailable CARISSA Holder Attending Provider Shahriar Stephenson MD Primary Care Provider [phone] David Kumari MD Unavailable Renny MEDICAL OFFICE TECHNOLOGY INSTRUCTOR.PHP WEBSITE DEVELOPER, Elio Unavailable [phone] Nicolas Hwang MD Unavailable Cory DELONG, Nancy Unavailable [phone] Shahriar Stephenson MD Primary Care Provider [phone] Unavailable Primary Care Provider UnavailShilpa Mcguire Primary Care Physician Yosef Grimes MD Attending Provider [phone] Dominique, PSYCHIATRIST Shilpa Mart Attending Unavailable Dominique, PSYCHIATRIST Shilpa Mart Attending Unavailable Dominique, PSYCHIATRIST Shilpa Mart Attending Unavailable GRIMES, Yosef R [...] SHAHRIAR E Primary Care Unavailable GRIMES, YOSEF R Referring Unavailable ROSS, SHAHRIAR E Primary Care Unavailable ROSS, SHAHRIAR E Primary Care Unavailable DOMINIQUESHILPA MCINTYRE Referring Unavailable ROSS, SHAHRIAR E Primary Care [...] ROSS, SHAHRIAR E Primary Care Unavailable CORNELIO, Yosef R Attending Unavailable GRIMES, Yosef R Attending Unavailable Ramila Peralta Attending Unavailable Bob, Meño Attending Unavailable GRIMES, Yosef R Referring Unavailable Bob, Meño Admitting Unavailable Bob, Meño Consulting Unavailable Bob, Meño Attending Unavailable Bob, Meño Referring Unavailable Bob, Meño Consulting Unavailable Bob, Meño Consulting Unavailable Ramila Peralta Attending Unavailable Shilpa Hannon Attending Unavailable KIRITNORBERTO Attending Unavailabl e Shilpa Hannon Attending Unavailable GRIMES, Yosef Bunch Attending Unavailable GRIMES, Yosef R Attending Unavailable GRIMES, Yosef R Attending Unavailable Allergies Allergy Classification Reported Allergen(s) Allergy Type Date of Onset Reaction(s) Facility (20 sources) Oxytetracycline; Translations: [oxytetracycline] Drug Allergy 10-22-19 Unknown, Fever (finding), Swelling at injection site (disorder) [facility] (4 sources) Penicillins; Translations: [PENICILLINS] Drug Allergy 10-22-19 Rash, Swelling [facility] (4 sources) Penicillin V Drug Allergy 10-10-19 swelling, rash, and hair loss [facility] (3 sources) TERAMYCIN Propensity to adverse reactions Unknown [facility] Other (20 sources) Penicillins Drug Allergy 10-22-19 Rash, Swelling [facility] (20 sources) Penicillin; Translations: [penicillin] Drug Allergy Swelling at injection site (disorder) [facility] (1 source) Oxytetracycline Drug Allergy 12-23-19 16 [facility] (1 source) Penicillins Drug allergy (disorder) 12-23-19 [facility] (1 source) Oxytetracycline Drug Allergy 10-10-19 [facility] (1 source) Penicillin Drug Allergy 10-10-19 [facility] (4 sources) Penicillins Drug Allergy 10-22-19 Rash, Swelling [facility] Medications Current Medications Medication Drug Class(es) Dates Sig (Normalized) Sig (Original) abiraterone acetate 250 mg oral tablet (20 sources) Cytochrome P450 17A1 Inhibitor Start: 12-08-2022 End: 05-20-2024 take 4 tablets by mouth once daily abiraterone 250 mg tablet Take 4 tablets by mouth once daily. 360 tablet 5 05/21/2024 11:32 AM EDT 05/20/2024 Active Comment on above: Take 4 tablets by mo [facility] once daily. azithromycin 250 mg oral [...] for 90 day(s), 90 tab(s), Refill(s) 3, [facility], 185, cm, 09/27/23 11:20:00 EDT, [...] day(s), # 90 tab(s), Refills(s) 3, Pharmacy: [facility], 190, cm, 11/18/22 11:20:00 EDT, [...] procedure, # 2 tab(s), Refills(s) 0, Pharmacy: [facility], 190, cm, 01/08/24 9:10:00 EST, [...] procedure, # 2 tab(s), Refills(s) 0, Pharmacy: [facility], 190, cm, 10/03/22 13:54:00 EDT, [...] acute otitis media H66.92] Onset: 11-13-2020 Resolved: 10-08-2021 Episodic Results Test Name Value Interpretation Reference [...] Stephenson MD This Is Your Medications List [facility] [place] (Eliguard) abiraterone (abiraterone 250 [...] Yosef GRIMES MD Where: [facility] [address] [address] 2025 1:20 PM EDT With: Shilpa Naylor Where: [facility] [address] [address]- Medications What How Much When Instructions Changed hydrochlorothiazide-l isinopril (hydrochlorothiazide- lisinopril 12.5 mg-10 mg Tab) 1 Tablets By Mouth Every day TAKE 1 TABLET BY MOUTH ONCE DAILY Pickup at [facility] Unchanged abiraterone (abiraterone 250 mg oral tablet) 4 Tablets By Mouth Every day Unchanged [facility] [place] (Eliguard) 0 As Directed injection every 6 months Unchanged predniSONE (predniSONE 5 mg Tab) Pharmacy Information [facility]: [address] [place], [place] [id number] [phone] Allergies oxytetracycline (Fever, Swelling at injection site) [...] signed up for this yet, please contact Health Information Management at [phone] to get signed up today. Language Information Language assistance services are available as needed. Normal [facility] Family Medicine Office/Clini c Noteon 09-26-2024 Family [...] of bladder) followed by Dr. Grimes and [facility]. Has had radiation and is taking [...] TAKE 1 TABLET BY MOUTH ONCE DAILY, [facility], 190, cm, 09/26/24 14:26:00 EDT, [...] Cystoscopy ( (more content not included)... Normal [facility] Comment on above: Result Comment: Electronically Signed By : Shilpa Naylor\.br\Date and Time Signed: 09/26/24 14:59 EDT Pre-Visit Planningon 025 Pre-Visit Planning Pre-Visit Planning From: Rachael DELONG, Jazmin To: Shilpa Naylor; Sent: 09/25/2024 13:22:32 EDT Subject: Pre-Visit Planning Due Date/Time: 09/25/2024 13:22:00 EDT Caller Name: ADOLPH JOHNS; Caller Number: H Erickson aRi, *Based on your response below, can you [...] specialist: Urologist Dr Heck , Dr Cook Agricultural Extension Specialist, Dr Mack oncologist, pt states he [...] feel free to contact me at extension [phone]. Thank you! Jazmin Cano, MYRNAN, RN, CCM, CCDS, CCDS-O CDI Quill Cleaning Machine Operator [address] [address] P: [phone] F: [phone] [email or web address] From: Shilpa Naylor To: Jazmin Cano RN; Sent: 09/26/2024 14:54:25 EDT Subject: RE: Pre-Visit Planning Caller Name: ADOLPH JOHNS; Caller Number: H I updated with current diagnoses. thank you Normal [facility] Pre-Visit Planning Pre-Visit Planning From: Jazmin Cano [...] feel free to contact me at extension [phone]. Thank you! KORY Archibald, RN, CCM, CCDS, CCDS-O CDI Quill Cleaning Machine Operator [address] [address] P: [phone] F: [phone] [email or web address] From: Shilpa Naylor To: Jazmin Cano RN; Sent: 09/26/2024 14:12:23 EDT Subject: RE: Pre-Visit Planning Caller Name: ADOLPH JOHNS; Caller Number: H mild pulmonary hypertension Normal [facility] Pre-Visit Planning Pre-Visit Planning From: Jazmin Cano [...] feel free to contact me at extension [phone]. Thank you! Jazmin Cano, KORY, RN, CCM, CCDS CDI Quill Cleaning Machine Operator [address] [address] P: [phone] F: [phone] [email or web address] From: Shilpa Naylor To: Rachael DELONG, Jazmin; Sent: 09/26/2024 14:11:40 EDT Subject: RE: Pre-Visit Planning Caller Name: ADOLPH JOHNS; Caller Number: H CKD stage 3b Normal [facility] CNOVon 06-04-2024 CNOV Office Visit (RADTSA ) ADOLPH JOHNS ([id number]) 1945 M Date Time Provider Department 06/04/24 3:00 PM David KUMARI RADTSA During your visit today, we recorded the following information about you: Temperature Pulse Respiration Weight 97.2 degrees 75/minute 16/minute 118.6 kg Letty Barahona RN 06/07/2024 10:34 AM Signed AUA= 7 David Kumari MD 06/07/2024 10:34 AM Signed Radiation Oncology - Follow Up Note PATIENT NAME: Adolph Johns PATIENT DIAGNOSIS: Prostate adenocarcinoma, initial PSA 7.5, biopsy Columbia score 4 + 3 = 7 (grade [...] by: David Kumari MD cc: Shahriar Stephenson [address] [place] [address] No referring provider defined for this encounter. Referring Provider: NICOLAS HWANG [[id number]] Allergies As of Date: 06/04/2024 Noted Allergy Reaction PENICILLINS 10/22/2019 2 - Rash 7 - Swelling TERAMYCIN (OXYTETRACYCLINE) 10/22/2019 16 - Unknown Date Reviewed: 06/04/2024 Reviewed by: Letty Barahona, RN - Fully Assessed Reason for Visit: Prostate Cancer [590] Primary Visit Diagnosis:Malignant neoplasm of prostate (HCC) [C61] Order(s):PROSTATE-SPE CIFIC ANTIGEN DIAGNOSTIC [SQPSA] Order #: [id number] FUTURE Prescriptions as of 06/07/2024 - leuprolide [...] ORAL) (Discontinue (more content not included)... Normal [facility] CNOVSPon 05-20-2024 CNOVSP Visit (SP) Office (HEMASA) GONZÁLEZ JOHNSOLL ([id number]) 1945 M Date Time Provider Department 05/20/24 2:00 PM MINOO GILL During your visit today, we recorded the following information about you: Temperature Pulse Respiration Blood pressure 97.6 degrees 79/minute 16/minute 120/72 Weight 117.9 kg Minoo Gill APRN.PHP WEBSITE DEVELOPER 05/20/2024 4:04 PM Signed PATIENT NAME: Adolph [...] No difficulties with urination. Has returned from [place]! Labs stable. MEDICATIONS: abiraterone 250 mg tablet [...] or petechiae. PATHOLOGY: 11/10/2022 Bladder tumor, TURBT ([facility]) Metastatic poorly differentiated adenocarcinoma, consistent with prostate [...] TISSUES: * (more content not included)... Normal [facility] Urology Office/Clinic Noteon 05-20-2024 Urology Office/Clinic [...] FOR CHILDREN). PSMA PET scan 10/28/22 at [facility] - [...] With When Contact Information Yosef GRIMES MD, L [facility] [address], [place] [phone] Additional Instructions: 6 mos (more content not included)... Normal [facility] Comment on above: Result Comment: Electronically Signed By : Yosef GRIMES MD\.br\Date and Time Signed: 05/20/24 08:39 EDT\.br\Electronically Co-Signed By: Odette Cottrell\.br\Date and Time Co-Signed: 05/20/24 08:37 EDT [facility] ([id number]) 1945 M Date Time Provider Department 05/16/24 NICOLAS HWANG During your visit today, we [...] Status:Closed by HOLLY SPIVEY on 05/29/24 Normal [facility] Basic metabolic 2000 panelon 05-15-2024 Anion gap [Moles/Vol] 14 mmol/L Normal 8-15 [facility] Comment on above: Order Comment: Specimen Type: BLOOD SPEC IMENOrdering Facility: [facility] Address: [address] [place] [address] Performed By: #### 2 4321-2 ####[facility] LABCLIA [id number] [place] [address] Calcium [Mass/Vol] 10.2 mg/dL Normal 8.5-10.2 [facility] Comment on above: Order Comment: Specimen Type: BLOOD SPEC IMENOrdering Facility: [facility] Address: [address] [place] [address] Performed By: #### 2 4321-2 ####[facility] LABCLIA [id number] [place] [address] Chloride [Moles/Vol] 103 mmol/L Normal 98-107 [facility] Comment on above: Order Comment: Specimen Type: BLOOD SPEC IMENOrdering Facility: [facility] Address: [address] [place] [address] Performed By: #### 2 4321-2 ####[facility] LABCLIA [id number] [place] [address] CO2 [Moles/Vol] 24 mmol/L Normal 22-30 [facility] Comment on above: Order Comment: Specimen Type: BLOOD SPEC IMENOrdering Facility: [facility] Address: [address] [place] [address] Performed By: #### 2 4321-2 ####[facility] LABCLIA [id number] [place] [address] Creatinine [Mass/Vol] 1.40 mg/dL High 0.73-1.22 [facility] Comment on above: Order Comment: Specimen Type: BLOOD SPEC IMENOrdering Facility: [facility] Address: [address] [place], [place] [address] Performed By: #### 2 4321-2 ####[facility] LABCLIA [id number] [place] [address] Creatinine and Glomerular filtration rate.predicted panel (S/P/Bld) 52 mL/min/1.73m??? Low >=60 [facility] Comment on above: Order Comment: Specimen Type: BLOOD SPEC IMENOrdering Facility: [facility] Address: [address] [place] [address] Result Comment: Paty mated Glomerular Filtration Rate [...] actual GFR. Performed By: #### 2 4321-2 ####[facility] LABCLIA [id number] [place] [address] Glucose [Mass/Vol] 224 mg/dL High 74-99 [facility] Comment on above: Order Comment: Specimen Type: BLOOD SPEC IMENOrdering Facility: [facility] Address: [address] [place], [place] [address] Result Comment: The [place] Diabetes Association (ADA) provides guidance for cutoff [...] Standards of Medical Care in Diabetes 2016, [place] [employer]. Diabetes Care. 2016.39(Suppl 1). Performed By: #### 2 4321-2 ####[facility] LABCLIA [id number] [place] [address] Potassium [Moles/Vol] 4.0 mmol/L Normal 3.7-5.1 [facility] Comment on above: Order Comment: Specimen Type: BLOOD SPEC IMENOrdering Facility: [facility] Address: [address] [place] [address] Performed By: #### 2 4321-2 ####[facility] LABCLIA [id number] [place] [address] Sodium [Moles/Vol] 141 mmol/L Normal 136-144 [facility] Comment on above: Order Comment: Specimen Type: BLOOD SPEC IMENOrdering Facility: [facility] Address: [address] [place] [address] Performed By: #### 2 4321-2 ####[facility] LABCLIA [id number] [place] [address] Urea nitrogen [Mass/Vol] 20 mg/dL Normal 9-24 [facility] Comment on above: Order Comment: Specimen Type: BLOOD SPEC IMENOrdering Facility: [facility] Address: [address] [place] [address] Performed By: #### 2 4321-2 ####[facility] LABCLIA [id number] [place] [address] CBC W Auto Differential pane l (Bld)on 05-15-2024 Basophils (Bld) [#/Vol] 0.03 10*3/uL Normal <0.11 [facility] Comment on above: Order Comment: Specimen Type: BLOOD SPEC IMENOrdering Facility: [facility] Address: [address] [place] [address] Performed By: #### 5 7021-8 ####[facility] LABIA [id number] [place] [address] Basophils/100 WBC (Bld) 0.3 % Normal [facility] Comment on above: Order Comment: Specimen Type: BLOOD SPEC IMENOrdering Facility: [facility] Address: [address] [place] [address] Performed By: #### 5 7021-8 ####[facility] LABCLIA [id number] [place] [address] Differential cell count method Nom (Bld) Auto Normal [facility] Comment on above: Order Comment: Specimen Type: BLOOD SPEC IMENOrdering Facility: [facility] Address: [address] [place] [address] Performed By: #### 5 7021-8 ####[facility] LABCLIA [id number] [place] [address] Eosinophils (Bld) [#/Vol] 0.07 10*3/uL Normal <0.46 [facility] Comment on above: Order Comment: Specimen Type: BLOOD SPEC IMENOrdering Facility: [facility] Address: [address] [place] [address] Performed By: #### 5 7021-8 ####[facility] LABCLIA [id number] [place] [address] Eosinophils/100 WBC (Bld) 0.8 % Normal [facility] Comment on above: Order Comment: Specimen Type: BLOOD SPEC IMENOrdering Facility: [facility] Address: [address] [place] [address] Performed By: #### 5 7021-8 ####[facility] LABCLIA [id number] [place] [address] Erythrocyte distribution width (RBC) [Ratio] 14.2 % Normal 11.5-15.0 [facility] Comment on above: Order Comment: Specimen Type: BLOOD SPEC IMENOrdering Facility: [facility] Address: [address] [place] [address] Performed By: #### 5 7021-8 ####[facility] LABCLIA [id number] [place] [address] Hematocrit (Bld) [Volume fraction] 39.0 % Normal 39.0-51.0 [facility] Comment on above: Order Comment: Specimen Type: BLOOD SPEC IMENOrdering Facility: [facility] Address: [address] [place] [address] Performed By: #### 5 7021-8 ####[facility] LABCLIA [id number] [place] [address] Hemoglobin (Bld) [Mass/Vol] 12.9 g/dL Low 13.0-17.0 [facility] Comment on above: Order Comment: Specimen Type: BLOOD SPEC IMENOrdering Facility: [facility] Address: [address] [place] [address] Performed By: #### 5 7021-8 ####[facility] LABCLIA [id number] [place] [address] Immature granulocytes (Bld) [#/Vol] 0.13 10*3/uL High <0.10 [facility] Comment on above: Order Comment: Specimen Type: BLOOD SPEC IMENOrdering Facility: [facility] Address: [address] [place] [address] Performed By: #### 5 7021-8 ####[facility] LABCLIA [id number] [place] [address] Immature granulocytes/100 WBC (Bld) 1.5 % Normal [facility] Comment on above: Order Comment: Specimen Type: BLOOD SPEC IMENOrdering Facility: [facility] Address: [address] [place] [address] Performed By: #### 5 7021-8 ####[facility] LABCLIA [id number] [place] [address] Lymphocytes (Bld) [#/Vol] 0.80 10*3/uL Low 1.00-4.00 [facility] Comment on above: Order Comment: Specimen Type: BLOOD SPEC IMENOrdering Facility: [facility] Address: [address] [place] [address] Performed By: #### 5 7021-8 ####[facility] LABCLIA [id number] [place] [address] Lymphocytes/100 WBC (Bld) 9.0 % Normal [facility] Comment on above: Order Comment: Specimen Type: BLOOD SPEC IMENOrdering Facility: [facility] Address: [address] [place] [address] Performed By: #### 5 7021-8 ####[facility] LABCLIA [id number] [place] [address] MCH (RBC) [Entitic mass] 30.6 pg Normal 26.0-34.0 [facility] Comment on above: Order Comment: Specimen Type: BLOOD SPEC IMENOrdering Facility: [facility] Address: [address] [place] [address] Performed By: #### 5 7021-8 ####[facility] LABIA [id number] [place] [address] MCHC (RBC) [Mass/Vol] 33.1 g/dL Normal 30.5-36.0 [facility] Comment on above: Order Comment: Specimen Type: BLOOD SPEC IMENOrdering Facility: [facility] Address: [address] [place] [address] Performed By: #### 5 7021-8 ####[facility] LABIA [id number] [place] [address] MCV (RBC) [Entitic vol] 92.4 fL Normal 80.0-100.0 [facility] Comment on above: Order Comment: Specimen Type: BLOOD SPEC IMENOrdering Facility: [facility] Address: [address] [place] [address] Performed By: #### 5 7021-8 ####[facility] LABIA [id number] [place] [address] Monocytes (Bld) [#/Vol] 0.61 10*3/uL Normal <0.87 [facility] Comment on above: Order Comment: Specimen Type: BLOOD SPEC IMENOrdering Facility: [facility] Address: [address] [place] [address] Performed By: #### 5 7021-8 ####[facility] LABCLIA [id number] [place] [address] Monocytes/100 WBC (Bld) 6.9 % Normal [facility] Comment on above: Order Comment: Specimen Type: BLOOD SPEC IMENOrdering Facility: [facility] Address: [address] [place] [address] Performed By: #### 5 7021-8 ####[facility] LABCLIA [id number] [place] [address] Neutrophils (Bld) [#/Vol] 7.20 10*3/uL Normal 1.45-7.50 [facility] Comment on above: Order Comment: Specimen Type: BLOOD SPEC IMENOrdering Facility: [facility] Address: [address] [place] [address] Performed By: #### 5 7021-8 ####[facility] LABCLIA [id number] [place] [address] Neutrophils/100 WBC (Bld) 81.5 % Normal [facility] Comment on above: Order Comment: Specimen Type: BLOOD SPEC IMENOrdering Facility: [facility] Address: [address] [place] [address] Performed By: #### 5 7021-8 ####[facility] LABCLIA [id number] [place] [address] Nucleated RBC (Bld) [#/Vol] 10*3/uL Normal <0.01 [facility] Comment on above: Order Comment: Specimen Type: BLOOD SPEC IMENOrdering Facility: [facility] Address: [address] [place] [address] Performed By: #### 5 7021-8 ####[facility] LABCLIA [id number] [place] [address] Nucleated RBC/100 WBC (Bld) [Ratio] 0.0 /100 WBC Normal [facility] Comment on above: Order Comment: Specimen Type: BLOOD SPEC IMENOrdering Facility: [facility] Address: [address] [place] [address] Performed By: #### 5 7021-8 ####[facility] LABCLIA [id number] [place] [address] Platelet mean volume (Bld) [Entitic vol] 9.9 fL Normal 9.0-12.7 [facility] Comment on above: Order Comment: Specimen Type: BLOOD SPEC IMENOrdering Facility: [facility] Address: [address] [place] [address] Performed By: #### 5 7021-8 ####[facility] LABIA [id number] [place] [address] Platelets (Bld) [#/Vol] 160 10*3/uL Normal 150-400 [facility] Comment on above: Order Comment: Specimen Type: BLOOD SPEC IMENOrdering Facility: [facility] Address: [address] [place] [address] Performed By: #### 5 7021-8 ####[facility] LABIA [id number] [place] [address] RBC (Bld) [#/Vol] 4.22 10*6/uL Normal 4.20-6.00 [facility] Comment on above: Order Comment: Specimen Type: BLOOD SPEC IMENOrdering Facility: [facility] Address: [address] [place] [address] Performed By: #### 5 7021-8 ####[facility] LABIA [id number] [place] [address] WBC (Bld) [#/Vol] 8.84 10*3/uL Normal 3.70-11.00 [facility] Comment on above: Order Comment: Specimen Type: BLOOD SPEC IMENOrdering Facility: [facility] Address: [address] [place] [address] Performed By: #### 5 7021-8 ####[facility] LABCLIA [id number] [place] [address] IMMUNOFIXATION SCREEN, SERUM on 05-15-2024 INTERPRETATION (MPA) Atypical restricted bands are present in the IgG and lambda regions. Consistent with IgG lambda monoclonal gammopathy. Normal [facility] Comment on above: Order Comment: Specimen Type: BLOOD SPEC IMENOrdering Facility: [facility] Address: [address] [place] [address] Performed By: #### I FES ####[facility] LABIA [id number] [place] [address] [place] MPA RESULT M protein is present. Abnormal No M p rotein is identified. [facility] Comment on above: Order Comment: Specimen Type: BLOOD SPEC IMENOrdering Facility: [facility] Address: [address] [place] [address] Performed By: #### I FES ####[facility] LABIA [id number] [place] [address] [place] STAFF REVIEW ([facility]) Reviewed by Gonzalo Haro MD, Ph.D ([id number]) Normal [facility] Comment on above: Order Comment: Specimen Type: BLOOD SPEC IMENOrdering Facility: [facility] Address: [address] [place] [address] Performed By: #### I FESC ####[facility] LABIA [id number] [place] [id number] [place] IMMUNOGLOBULINS,IGG,IGA,IGMo n 05-15-2024 IgA [Mass/Vol] 50 mg/dL Low 70-400 [facility] Comment on above: Order Comment: Specimen Type: BLOOD SPEC IMENOrdering Facility: [facility] Address: [address] [place] [address] Performed By: #### S ERIMM ####[facility] LABCLIA [id number] [place] [address] [place] IgG [Mass/Vol] 1119 mg/dL Normal 700-1600 [facility] Comment on above: Order Comment: Specimen Type: BLOOD SPEC IMENOrdering Facility: [facility] Address: [address] [place] [address] Performed By: #### S ERIMM ####[facility] LABCLIA [id number] [place] [address] [place] IgM [Mass/Vol] 69 mg/dL Normal 40-230 [facility] Comment on above: Order Comment: Specimen Type: BLOOD SPEC IMENOrdering Facility: [facility] Address: [address] [place] [address] Performed By: #### S ERIMM ####[facility] LABIA [id number] [place] [address] [place] KAPPA/LIM,FREE,SERon 2024 Immunoglobulin light chains.kappa.zaida e (S) [Mass/Vol] 23.6 mg/L High 3.3-19.4 [facility] Comment on above: Order Comment: Specimen Type: BLOOD SPEC IMENOrdering Facility: [facility] Address: [address] [place] [address] Result Comment: Rare ly, increased serum free light chains levels may not be detected or accurately quantified due to prozone phenomenon or in high viscosity samples using this immunoturbidimetric assay. Correlation with other laboratory results and clinical findings is recommended. The [place] Free Light Chain was performed using the Binding Site Optilite immunoturbidimetric method. Result obtained with different assay methods or kits cannot be used interchangeably. Performed By: #### K LFRS ####[facility] LABCLIA [id number] [place] [address] [place] Immunoglobulin light chains.kappa/Imm unoglobulin light chains.lambda (S) [Mass ratio] 1.34 Normal 0.26-1.65 [facility] Comment on above: Order Comment: Specimen Type: BLOOD SPEC IMENOrdering Facility: [facility] Address: [address] [place] [address] Performed By: #### K LFRS ####[facility] LABCLIA [id number] [place] [address] [place] Immunoglobulin light chains.lambda.fr ee [Mass/Vol] 17.6 mg/L Normal 5.7-26.3 [facility] Comment on above: Order Comment: Specimen Type: BLOOD SPEC IMENOrdering Facility: [facility] Address: [address] [place] [address] Result Comment: Rare ly, increased serum free [...] interchangeably. Performed By: #### K LFRS ####[facility] LABIA [id number] [place] [address] [place] PROTEIN ELECTROPHORESIS SERU M WITH FAUSTINA (P)on 05-15-2024 Albumin [Mass/Vol] 3.99 g/dL Normal 3.43-5.41 [facility] Comment on above: Order Comment: Specimen Type: BLOOD SPEC IMENOrdering Facility: [facility] Address: [address] [place] [address] Performed By: #### L [id number] ####[facility] LABIA [id number] [place] [address] [place] Alpha 1 globulin Elph [Mass/Vol] 0.31 g/dL Normal 0.18-0.43 [facility] Comment on above: Order Comment: Specimen Type: BLOOD SPEC IMENOrdering Facility: [facility] Address: [address] [place] [address] Performed By: #### L [id number] ####[facility] LABIA [id number] [place] [address] [place] Alpha 2 globulin Elph [Mass/Vol] 0.81 g/dL Normal 0.42-0.98 [facility] Comment on above: Order Comment: Specimen Type: BLOOD SPEC IMENOrdering Facility: [facility] Address: [address] [place] [address] Performed By: #### L [id number] ####[facility] LABIA [id number] [place] [address] [place] Beta globulin Elph [Mass/Vol] 0.76 g/dL Normal 0.61-1.17 [facility] Comment on above: Order Comment: Specimen Type: BLOOD SPEC IMENOrdering Facility: [facility] Address: [address] [place] [address] Performed By: #### L [id number] ####[facility] [id number] [place] COMMENT (SERUM PROT ELECTRO) Monoclonal Protein analysis (immunofixation) is not indicated. Normal [facility] Comment on above: Order Comment: Specimen Type: BLOOD SPEC IMENOrdering Facility: [facility] Address: [address] [place] [address] Performed By: #### L [id number] ####[facility] [id number] [place] [address] [place] Gamma globulin Elph [Mass/Vol] 1.03 g/dL Normal 0.53-1.51 [facility] Comment on above: Order Comment: Specimen Type: BLOOD SPEC IMENOrdering Facility: [facility] Address: [address] [place] [address] Performed By: #### L [id number] ####[facility] [id number] [address] [place] INTERPRETATION COMMENT FOR PROTEIN ELECTROPHORESIS See separate immunofixation report for characterization of monoclonal gammopathy. Normal [facility] Comment on above: Order Comment: Specimen Type: BLOOD SPEC IMENOrdering Facility: [facility] Address: [address] [place] [address] Performed By: #### L [id number] ####[facility] LABIA [id number] [address] [address] [place] M-PROTEIN LOCATION Gamma Fraction 1 Normal [facility] Comment on above: Order Comment: Specimen Type: BLOOD SPEC IMENOrdering Facility: [facility] Address: [address] [place] [address] Performed By: #### L [id number] ####[facility] LABIA [id number] [address] [place] [address] [place] Protein Fractions [Interp] An M protein is identified on protein electrophoresis. Abnormal No definitive M protein is identified on protein electrophoresis. [facility] Comment on above: Order Comment: Specimen Type: BLOOD SPEC IMENOrdering Facility: [facility] Address: [address] [place] [address] Performed By: #### L [id number] ####[facility] LABIA [id number] [place] [id number] [place] Protein.monoclon al Elph [Mass/Vol] 0.78 g/dL High <=0.00 [facility] Comment on above: Order Comment: Specimen Type: BLOOD SPEC IMENOrdering Facility: [facility] Address: [address] [place], [place] [address] Performed By: #### L [id number] ####[facility] LABIA [id number] [place] [id number] [place] SPE STAFF REVIEW Reviewed by Gonzalo Haro MD, Ph.D ([id number]) Normal [facility] Comment on above: Order Comment: Specimen Type: BLOOD SPEC IMENOrdering Facility: [facility] Address: [address] [place] [address] Performed By: #### L [id number] ####[facility] LABCLIA [id number] [place] [address] [place] Prot SerPl-mCncon 05-15-2024 Protein [Mass/Vol] 6.9 g/dL Normal 6.3-8.0 [facility] Comment on above: Order Comment: Specimen Type: BLOOD SPEC IMENOrdering Facility: [facility] Address: [address] [place] [address] Performed By: #### 2 885-2 ####[facility] LABIA [id number] [place] [address] [place] PSA [facility]con 05-07-2024 Prostate specific Ag [Mass/Vol] ng/mL Normal <2.60 [facility] Comment on above: Order Comment: Specimen Type: BLOOD SPEC IMENOrdering Facility: [facility] Address: [address] [place] [address] Result Comment: Tota l PSA test methodology used is the Electrochemiluminescence Immunoassay by [employer]. Total PSA values by differing methodologies cannot be interchanged. Performed By: #### 2 857-1 ####[facility] LABCLIA [id number] [place] [address] [place] XR ABDOMEN 1V [...] any questions regarding this interpretation, please call [phone]. If you are unable to reach us at the number above, please feel free to contact [facility] eRadiology at [phone]. [id number] N Normal [facility] Urology Office/Clinic Noteon 03-04-2024 Urology Office/Clinic [...] FOR CHILDREN). PSMA PET scan 10/28/22 at [facility] - Neg for mets; approx [...] Urology [address], [place] [phone] Additional Instructions: Has f/u 05/20/24 w/ PSA and Eligard and KUB, also to schedule cysto Patient Education Cystosc (more content not included)... Normal [facility] Comment on above: Result Comment: Electronically Signed By : Yosef GRIMES MD\.br\Date and Time Signed: 03/04/24 10:56 EST\.br\Electronically Co-Signed By: Odette Cottrell\.br\Date and Time Co-Signed: 03/04/24 10:55 EST James 02-22-2024 L - -------- Specimen: [id number] Received: 02/23/24 Status: COLE Kay Num: [id number] Spec Type: Surgical Subm Dr: Yosef Grimes MD Tissues: A Urinary Bladder - TUR (BLADDER LESION) Procedures: HE/3, Gross/Micro L5, AE1-AE3, CK20, P53 -------- Age/ Patient Sex Location Account Attending Physician -------- Adolph Johns 78/M LABELL [id number] Yosef Grimes MD -------- SPEC NUM: [id number] RECD: 02/23/24 STATUS: COLE KAY NUM: [id number] JOSE ANGEL: 02/22/24 [facility] DR: Yosef Grimes MD ENTERED: 02/23/[address]: William Peterson SPEC TYPE: Surgical DEPT: LUCY SAUL ENTERED BY: [id number] RECV BY: [id number] ORDERED: HE/3, Gross/Micro L5, AE1-AE3, CK20, P53 [...] -------- Specimen: [id number] Received: 02/23/24-1220 Status: COLE Req Num: [id number] Spec Type: Surgical Subm Dr: Yosef Grimes MD Tissues: A Urinary Bladder - TUR (BLADDER LESION) Procedures: HE/3, Gross/Micro L5, AE1-AE3, CK20, P53 -------- Patient: Adolph Johns [id number] (Continued) -------- Specimen: [id number] Received: 02/23/24 (Continued) Pathological Diagnosis (Continued) Signed (signature on file) Bertha Kline MD 02/27/24 1652 -------- Specimen: [id number] Received: 02/23/24 Status: COLE Kay Num: [id number] Spec Type: Surgical Subm Dr: Yosef Grimes MD Tissues: A Urinary Bladder - TUR (BLADDER LESION) Procedures: HE/3, Gross/Micro L5, AE1-AE3, CK20, P53 -------- Patient: Adolph Johns [id number] (Continued) -------- Specimen: [id number] Received: 02/23/24-1220 (Continued) [...] urothelial layer in all fragments also show cad designer or adequate streaming maturation -AE1/3 IHC did [...] a single cassette. (1, ns, [id number] A) Microscopic Description Microscopic examinations are performed supporting the above interpretation CPT Codes 95388 70105 (more content not included)... Normal [facility] Heart and Vascular Office/Cl inic [...] Not Given Parent Or Guardian Refuses Normal [facility] Comment on above: Result Comment: Electronically Signed By : Bob ROSARIO, Meño\.arun\Date and Time Signed: 01/23/24 13:[address] UROGRAM WO/W IVCONon 12- CT UROGRAM WO/W IVCON * * *Final Report* * * DATE OF EXAM: Jan 19 2024 9:37AM [facility] 0560 - CT UROGRAM [...] Linear band of scarring right lower lobe. Road Consultant (topogram) images: Unremarkable. IMPRESSION: Decreased size of [...] any questions regarding this interpretation, please call [phone]. If you are unable to reach us at the number above, please feel free to contact [facility] eRadiology at [phone]. [id number] N Normal [facility] Urine Cytology ([facility])on 03-17-2023 Microscopic exam Cytology (U) [Interp] Diagnosis Info Invalid Interpretation Code [facility] Comment on above: Result Comment: A:Urine,Urine:Voided Interpretation - Adequate cellularity for evaluation. CPT 49162 MicroScopic Description - Adequacy - Gross Description Site ID:A color Yellow fixative Alcohol Specimen designated Urine received in alcohol preservative and labeled with the patient???s name, consists of 50ml clear yellow fluid. Electronically signed by : on: 01/15/2024 13:14:46 Performed By: #### 1 [id number] ####[facility] [address] [place] [address] Ambulatory Visit Summaryon 03-12-2023 Ambulatory Visit Summary [...] Yosef GRIMES MD Where: [facility] [address] [place] [address] 2024 11:00 AM EDT With: Where: [facility] [address] [address]- You Need to Schedule the Following Appointments Follow Up with Yosef GRIMES MD, URL When: Where: [facility] [address] [place] [address] Medications What How Much When Instructions Unchanged [...] these instructions at home: Medicines ??? Take ssht-fyj-perdani and prescription medicines only as told by your health care provider. ??? If you were prescribed an antibiotic medicine, take it as told by your health care provider. Do not stop taking the antibiotic even if you start to feel better. ??? (more content not included)... Normal [facility] Urology Office/Clinic Noteon [...] FOR CHILDREN). PSMA PET scan 10/28/22 at [facility] - Neg for mets; approx [...] [facility] (more content not included)... Normal [facility] Comment on above: Result Comment: [...] Yosef GRIMES MD Where: [facility] [address] [address]- Monday 12:45 PM EDT With: Yosef GRIMES MD Where: [facility] [address] [place] [address] 2024 11:00 AM EDT With: Where: [facility] [address] [address]- You Need to Schedule the Following Appointments Follow Up with Yosef GRIMES MD, URL When: Where: [facility] [address], [place] [address] [phone] Medications What How Much When Instructions New ciprofloxacin (Cipro 500 mg Tab) 1 Tablets By Mouth Every day take one tab day before procedure and one tab after procedure Pickup at [facility] Unchanged abiraterone (abiraterone 250 mg [...] physician if questions or concerns Pharmacy Information [facility]: [address] [place], [place] [id number] [phone] Allergies oxytetracycline (Fever, Swelling at injection site) [...] microscope (biopsy (more content not included)... Normal [facility] Urine Cytology ([facility])on 03-10-2023 Method of Extraction Voided Normal [facility] Comment on above: Performed By: #### [id number] ####[facility] [address] [place] [address] Number of Jars 1 Invalid Interpretation Code [facility] Comment on above: Performed By: #### [id number] ####[facility] [address] [place] [address] Specimen Urine Normal [facility] Comment on above: Performed By: #### [id number] ####[facility] [address] [place] [address] Type of Service Technical Only Normal [facility] Comment on above: Performed By: #### [id number] ####[facility] [address] [place] [address] Urology Office/Clinic Noteon 01-08-2024 Urology Office/Clinic Note [...] negative margins. PSMA PET scan 10/28/22 at [facility] - neg for mets; approx [...] [facility] [address], [place] [phone] Additional Instructions: sched cysto Patient Education Cystoscopy Hematuria, Adult I, Odette Cottrell, personally scribed for Dr. Grimes on 01/08/2024 10:14:36. . Documentation recorded by the Odette casas (more content not included)... Normal [facility] Comment on above: Result Comment: [...] Locations R1: This test was performed at: [facility], [address] [place] [address], [address] , , [facility] Comment on above: Performed By: #### [id number] #### [facility] Laboratory [address] [place] [address] Ambulatory Visit Summaryon 1 03-02-2023 Ambulatory Visit [...] Yosef GRIMES MD Where: [facility] [address] [place] [address]- Monday 12:45 PM EDT With: Yosef GRIMES MD Where: [facility] [address] [place] [address] 2024 11:00 AM EDT With: Where: [facility] [place] [address] [place] [address]- Medications What How Much When Instructions Unchanged [...] for choosing us for your care. Normal [facility] CNPSharon 12-29-2023 MINDA Telephone (TREVA) ADOLPH JOHNS ([id number]) 1945 M Date Time Provider Department 12/29/23 [...] Encounter Status:Closed by PEGGY LAKHANI on 01/01/24 Normal [facility] Ambulatory Visit Summaryon 1 Ambulatory Visit [...] Yosef GRIMES MD Where: [facility] [address] [place] [address] 2024 11:00 AM EDT With: Where: [facility] [address] [address]- You Need to Schedule the Following Appointments Follow Up with CORNELIO ROSARIO, Yosef Bunch, RADHA When: Where: [facility] [place] [address]- Medications What How Much When Instructions Unchanged [...] diagnosed? Th (more content not included)... Normal [facility] Urology Office/Clinic Noteon 11-24-2023 Urology Office/Clinic Note [...] negative margins. PSMA PET scan 10/28/22 at [facility] - neg for mets; approx [...] Information CORNELIO ROSARIO, Yosef Bunch, URL [address] [place] [address]- Additional Instructions: 6 mos w/ PSA & [...] biopsy of (more content not included)... Normal [facility] Comment on above: Result Comment: Electronically Signed By : Yosef GRIMES MD\.br\Date and Time Signed: 11/24/23 12:43 EDT\.br\Electronically Co-Signed By: Esme Noonan.br\Date and Time Co-Signed: 11/24/23 12:36 EDT Basic metabolic 2000 panelOr dered By: Holly Díaz on 11-16-2023 Anion gap [Moles/Vol] 13 mmol/L 8 - 15 mmol/L [facility] Calcium [Mass/Vol] 10.3 mg/dL High 8.5 - 10.2 mg/dL [facility] Chloride [Moles/Vol] 102 mmol/L 98 - 107 mmol/L [facility] CO2 [Moles/Vol] 23 mmol/L 22 - 30 mmol/L [facility] Creatinine [Mass/Vol] 1.35 mg/dL High 0.73 - 1.22 mg/dL [facility] GFR/1.73 sq M.predicted among non-blacks MDRD (S/P/Bld) [Vol rate/Area] 54 mL/min/{1.73_m2} Low - PINF [facility] Comment on above: Estimated Glomerular Filtration [...] 276 mg/dL High 74 - 99 mg/dL [facility] Comment on above: The [place] Diabetes Association (ADA) provides guidance for cutoff [...] Standards of Medical Care in Diabetes 2016, [place] [employer]. Diabetes Care. 2016.39(Suppl 1). Interpretation and review of laboratory results Abnormal [facility] Potassium [Moles/Vol] 4.0 mmol/L 3.7 - 5.1 mmol/L [facility] Sodium [Moles/Vol] 138 mmol/L 136 - 144 mmol/L [facility] Urea nitrogen [Mass/Vol] 22 mg/dL 9 - 24 mg/dL [facility] Basic metabolic 2000 panelon 11-16-2023 Anion gap [Moles/Vol] 13 mmol/L Normal 8-15 [facility] Comment on above: Order Comment: Specimen Type: BLOOD SPEC IMENOrdering Facility: [facility] Address: [address] [place] [address] Performed By: #### 2 4321-2 ####[facility] LABCLIA [id number] [place] [address] Calcium [Mass/Vol] 10.3 mg/dL High 8.5-10.2 [facility] Comment on above: Order Comment: Specimen Type: BLOOD SPEC IMENOrdering Facility: [facility] Address: [address] [place] [address] Performed By: #### 2 4321-2 ####[facility] LABCLIA [id number] [place] [address] Chloride [Moles/Vol] 102 mmol/L Normal 98-107 [facility] Comment on above: Order Comment: Specimen Type: BLOOD SPEC IMENOrdering Facility: [facility] Address: [address] [place] [address] Performed By: #### 2 4321-2 ####[facility] LABCLIA [id number] [place] [address] CO2 [Moles/Vol] 23 mmol/L Normal 22-30 [facility] Comment on above: Order Comment: Specimen Type: BLOOD SPEC IMENOrdering Facility: [facility] Address: [address] [place] [address] Performed By: #### 2 4321-2 ####[facility] LABCLIA [id number] [place] [address] Creatinine [Mass/Vol] 1.35 mg/dL High 0.73-1.22 [facility] Comment on above: Order Comment: Specimen Type: BLOOD SPEC IMENOrdering Facility: [facility] Address: [address] [place] [address] Performed By: #### 2 4321-2 ####[facility] LABCLIA [id number] [place] [address] Creatinine and Glomerular filtration rate.predicted panel (S/P/Bld) 54 mL/min/1.73m??? Low >=60 [facility] Comment on above: Order Comment: Specimen Type: BLOOD SPEC IMENOrdering Facility: [facility] Address: [address] [place] [address] Result Comment: Paty mated Glomerular Filtration Rate [...] actual GFR. Performed By: #### 2 4321-2 ####[facility] LABCLIA [id number] [place] [address] Glucose [Mass/Vol] 276 mg/dL High 74-99 [facility] Comment on above: Order Comment: Specimen Type: BLOOD SPEC IMENOrdering Facility: [facility] Address: [address] [place] [address] Result Comment: The [place] Diabetes [employer] (ADA) provides guidance for cutoff [...] Standards of Medical Care in Diabetes 2016, [place] [employer]. Diabetes Care. 2016.39(Suppl 1). Performed By: #### 2 4321-2 ####[facility] LABCLIA [id number] [place] [address] Potassium [Moles/Vol] 4.0 mmol/L Normal 3.7-5.1 [facility] Comment on above: Order Comment: Specimen Type: BLOOD SPEC IMENOrdering Facility: [facility] Address: [address] [place], [place] [address] Performed By: #### 2 4321-2 ####[facility] LABCLIA [id number] [place] [address] Sodium [Moles/Vol] 138 mmol/L Normal 136-144 [facility] Comment on above: Order Comment: Specimen Type: BLOOD SPEC IMENOrdering Facility: [facility] Address: [address] [place] [address] Performed By: #### 2 4321-2 ####[facility] LABCLIA [id number] [place] [address] Urea nitrogen [Mass/Vol] 22 mg/dL Normal 9-24 [facility] Comment on above: Order Comment: Specimen Type: BLOOD SPEC IMENOrdering Facility: [facility] Address: [address] [place] [address] Performed By: #### 2 4321-2 ####[facility] LABCLIA [id number] [place] [address] CBC W Auto Differential pane l (Bld)on 11-16-2023 Basophils (Bld) [#/Vol] 0.03 10*3/uL [facility] Basophils/100 WBC (Bld) 0.4 % [facility] Differential cell count method Nom (Bld) Auto [facility] Eosinophils (Bld) [#/Vol] 0.08 10*3/uL [facility] Eosinophils/100 WBC (Bld) 1.0 % [facility] Erythrocyte distribution width (RBC) [Ratio] 14.6 % 11.5 - 15.0 % [facility] Hematocrit (Bld) [Volume fraction] 40.6 % 39.0 - 51.0 % [facility] Hemoglobin (Bld) [Mass/Vol] 13.7 g/dL 13.0 - 17.0 g/dL [facility] Immature granulocytes (Bld) [#/Vol] 0.12 10*3/uL High [facility] Immature granulocytes/100 WBC (Bld) 1.5 % [facility] Interpretation and review of laboratory results Abnormal [facility] Lymphocytes (Bld) [#/Vol] 0.64 10*3/uL Low [facility] Lymphocytes/100 WBC (Bld) 7.9 % [facility] MCH (RBC) [Entitic mass] 30.6 pg 26.0 - 34.0 pg [facility] MCHC (RBC) [Mass/Vol] 33.7 g/dL 30.5 - 36.0 g/dL [facility] MCV (RBC) [Entitic vol] 90.8 fL 80.0 - 100.0 fL [facility] Monocytes (Bld) [#/Vol] 0.50 10*3/uL [facility] Monocytes/100 WBC (Bld) 6.2 % [facility] Neutrophils (Bld) [#/Vol] 6.74 10*3/uL [facility] Neutrophils/100 WBC (Bld) 83.0 % [facility] Nucleated RBC (Bld) [#/Vol] [facility] Nucleated RBC/100 WBC (Bld) [Ratio] 0.0 % /100 WBC [facility] Platelet mean volume (Bld) [Entitic vol] 10.2 fL 9.0 - 12.7 fL [facility] Platelets (Bld) [#/Vol] 191 10*3/uL [facility] RBC (Bld) [#/Vol] 4.47 10*6/uL 4.20 - 6.00 m/uL [facility] WBC (Bld) [#/Vol] 8.11 10*3/uL [facility] Basophils (Bld) [#/Vol] 0.03 10*3/uL Normal <0.11 [facility] Comment on above: Order Comment: Specimen Type: BLOOD SPEC IMENOrdering Facility: [facility] Address: [address] [place] [address] Performed By: #### 5 7021-8 ####[facility] LABCLIA [id number] [place] [address] Basophils/100 WBC (Bld) 0.4 % Normal [facility] Comment on above: Order Comment: Specimen Type: BLOOD SPEC IMENOrdering Facility: [facility] Address: [address] [place] [address] Performed By: #### 5 7021-8 ####[facility] LABCLIA [id number] [place] [address] Differential cell count method Nom (Bld) Auto Normal [facility] Comment on above: Order Comment: Specimen Type: BLOOD SPEC IMENOrdering Facility: [facility] Address: [address] [place] [address] Performed By: #### 5 7021-8 ####[facility] LABCLIA [id number] [place] [address] Eosinophils (Bld) [#/Vol] 0.08 10*3/uL Normal <0.46 [facility] Comment on above: Order Comment: Specimen Type: BLOOD SPEC IMENOrdering Facility: [facility] Address: [address] [place] [address] Performed By: #### 5 7021-8 ####[facility] LABCLIA [id number] [place] [address] Eosinophils/100 WBC (Bld) 1.0 % Normal [facility] Comment on above: Order Comment: Specimen Type: BLOOD SPEC IMENOrdering Facility: [facility] Address: [address] [place] [address] Performed By: #### 5 7021-8 ####[facility] LABCLIA [id number] [place] [address] Erythrocyte distribution width (RBC) [Ratio] 14.6 % Normal 11.5-15.0 [facility] Comment on above: Order Comment: Specimen Type: BLOOD SPEC IMENOrdering Facility: [facility] Address: [address] [place] [address] Performed By: #### 5 7021-8 ####[facility] LABCLIA [id number] [place] [address] Hematocrit (Bld) [Volume fraction] 40.6 % Normal 39.0-51.0 [facility] Comment on above: Order Comment: Specimen Type: BLOOD SPEC IMENOrdering Facility: [facility] Address: [address] [place] [address] Performed By: #### 5 7021-8 ####[facility] LABCLIA [id number] [place] [address] Hemoglobin (Bld) [Mass/Vol] 13.7 g/dL Normal 13.0-17.0 [facility] Comment on above: Order Comment: Specimen Type: BLOOD SPEC IMENOrdering Facility: [facility] Address: [address] [place] [address] Performed By: #### 5 7021-8 ####[facility] LABCLIA [id number] [place] [address] Immature granulocytes (Bld) [#/Vol] 0.12 10*3/uL High <0.10 [facility] Comment on above: Order Comment: Specimen Type: BLOOD SPEC IMENOrdering Facility: [facility] Address: [address] [place] [address] Performed By: #### 5 7021-8 ####[facility] LABCLIA [id number] [place] [address] Immature granulocytes/100 WBC (Bld) 1.5 % Normal [facility] Comment on above: Order Comment: Specimen Type: BLOOD SPEC IMENOrdering Facility: [facility] Address: [address] [place] [address] Performed By: #### 5 7021-8 ####[facility] LABCLIA [id number] [place] [address] Lymphocytes (Bld) [#/Vol] 0.64 10*3/uL Low 1.00-4.00 [facility] Comment on above: Order Comment: Specimen Type: BLOOD SPEC IMENOrdering Facility: [facility] Address: [address] [place] [address] Performed By: #### 5 7021-8 ####[facility] LABCLIA [id number] [place] [address] Lymphocytes/100 WBC (Bld) 7.9 % Normal [facility] Comment on above: Order Comment: Specimen Type: BLOOD SPEC IMENOrdering Facility: [facility] Address: [address] [place] [address] Performed By: #### 5 7021-8 ####[facility] LABCLIA [id number] [place] [address] MCH (RBC) [Entitic mass] 30.6 pg Normal 26.0-34.0 [facility] Comment on above: Order Comment: Specimen Type: BLOOD SPEC IMENOrdering Facility: [facility] Address: [address] [place] [address] Performed By: #### 5 7021-8 ####[facility] LABIA [id number] [place] [address] MCHC (RBC) [Mass/Vol] 33.7 g/dL Normal 30.5-36.0 [facility] Comment on above: Order Comment: Specimen Type: BLOOD SPEC IMENOrdering Facility: [facility] Address: [address] [place] [address] Performed By: #### 5 7021-8 ####[facility] LABIA [id number] [place] [address] MCV (RBC) [Entitic vol] 90.8 fL Normal 80.0-100.0 [facility] Comment on above: Order Comment: Specimen Type: BLOOD SPEC IMENOrdering Facility: [facility] Address: [address] [place] [address] Performed By: #### 5 7021-8 ####[facility] LABIA [id number] [place] [address] Monocytes (Bld) [#/Vol] 0.50 10*3/uL Normal <0.87 [facility] Comment on above: Order Comment: Specimen Type: BLOOD SPEC IMENOrdering Facility: [facility] Address: [address] [place] [address] Performed By: #### 5 7021-8 ####[facility] LABCLIA [id number] [place] [address] Monocytes/100 WBC (Bld) 6.2 % Normal [facility] Comment on above: Order Comment: Specimen Type: BLOOD SPEC IMENOrdering Facility: [facility] Address: [address] [place] [address] Performed By: #### 5 7021-8 ####[facility] LABCLIA [id number] [place] [address] Neutrophils (Bld) [#/Vol] 6.74 10*3/uL Normal 1.45-7.50 [facility] Comment on above: Order Comment: Specimen Type: BLOOD SPEC IMENOrdering Facility: [facility] Address: [address] [place] [address] Performed By: #### 5 7021-8 ####[facility] LABCLIA [id number] [place] [address] Neutrophils/100 WBC (Bld) 83.0 % Normal [facility] Comment on above: Order Comment: Specimen Type: BLOOD SPEC IMENOrdering Facility: [facility] Address: [address] [place] [address] Performed By: #### 5 7021-8 ####[facility] LABCLIA [id number] [place] [address] Nucleated RBC (Bld) [#/Vol] 10*3/uL Normal <0.01 [facility] Comment on above: Order Comment: Specimen Type: BLOOD SPEC IMENOrdering Facility: [facility] Address: [address] [place] [address] Performed By: #### 5 7021-8 ####[facility] LABCLIA [id number] [place] [address] Nucleated RBC/100 WBC (Bld) [Ratio] 0.0 /100 WBC Normal [facility] Comment on above: Order Comment: Specimen Type: BLOOD SPEC IMENOrdering Facility: [facility] Address: [address] [place] [address] Performed By: #### 5 7021-8 ####[facility] LABCLIA [id number] [place] [address] Platelet mean volume (Bld) [Entitic vol] 10.2 fL Normal 9.0-12.7 [facility] Comment on above: Order Comment: Specimen Type: BLOOD SPEC IMENOrdering Facility: [facility] Address: [address] [place] [address] Performed By: #### 5 7021-8 ####[facility] LABIA [id number] [place] [address] Platelets (Bld) [#/Vol] 191 10*3/uL Normal 150-400 [facility] Comment on above: Order Comment: Specimen Type: BLOOD SPEC IMENOrdering Facility: [facility] Address: [address] [place] [address] Performed By: #### 5 7021-8 ####[facility] LABIA [id number] [place] [address] RBC (Bld) [#/Vol] 4.47 10*6/uL Normal 4.20-6.00 [facility] Comment on above: Order Comment: Specimen Type: BLOOD SPEC IMENOrdering Facility: [facility] Address: [address] [place] [address] Performed By: #### 5 7021-8 ####[facility] LABIA [id number] [place] [address] WBC (Bld) [#/Vol] 8.11 10*3/uL Normal 3.70-11.00 [facility] Comment on above: Order Comment: Specimen Type: BLOOD SPEC IMENOrdering Facility: [facility] Address: [address] [place], [place] [address] Performed By: #### 5 7021-8 ####[facility] LABIA [id number] [place] [address] CNOVon 11-16-2023 CNOV Office Visit (RADTSA ) ADOLPH JOHNS ([id number]) 1945 M Date Time Provider Department 11/16/23 [...] David Kumari MD cc: Shahriar Stephenson [address] [place] [address] No referring provider defined for this encounter. Allergies As of Date: 11/16/2023 Noted Allergy Reaction PENICILLINS 10/22/2019 2 - Rash 7 - Swelling TERAMYCIN (OXYTETRACYCLINE) 10/22/2019 16 - Unknown Date Reviewed: 11/16/2023 Reviewed by: Bettina Sargent MA - Fully Assessed Reason for Visit: Prostate Cancer [590] Primary Visit Diagnosis:Malignant neoplasm of prostate (HCC) [C61] Order(s):PROSTATE-SPE CIFIC ANTIGEN DIAGNOSTIC [SQPSA] Order #: [id number] FUTURE Prescriptions as of 11/24/2023 - abiraterone [...] Notes: >> Peggy Lakhani RN [facility] Nov 16, 2023 2:14 PM Status: Signed AUA 6 Peggy Lakhani RN Disposition: Return in about 6 months (around 05/16/2024). Follow-up and Disposition History for Encounter Date Provider Department Center 11/16/2023 [id number] KUMARI [facility] [place] Encounter Status:Closed by David KUMARI on 11/24/23 [facility] CNOVSPon 11-16-2023 CNOVSP Visit (SP) Office (HEMASA) ADOLPH JOHNS ([id number]) 1945 M Date Time Provider Department 11/16/23 [...] with urination. He plans to travel to [place] next week where he plans to spend [...] or petechiae. PATHOLOGY: 11/10/2022 Bladder tumor, TURBT ([facility]) Metastatic poorly differentiated adenocarcinoma, consistent with prostate [...] nodes BONES/SOFT (more content not included)... Normal [facility] IMMUNOFIXATION SCREEN, SERUM on 11-16-2023 INTERPRETATION (MPA) Atypical restricted bands are present in the IgG and lambda regions. Consistent with IgG lambda monoclonal gammopathy. Normal [facility] Comment on above: Order Comment: Specimen Type: BLOOD SPEC IMENOrdering Facility: [facility] Address: [address] [place] [address] Performed By: #### I FESC ####[facility] LABCLIA [id number] [address] [place] MPA RESULT M protein is present. Abnormal No M p rotein is identified. [facility] Comment on above: Order Comment: Specimen Type: BLOOD SPEC IMENOrdering Facility: [facility] Address: [address] [place] [address] Performed By: #### I FESC ####[facility] LABCLIA [id number] [address] [place] STAFF REVIEW (MPA) Reviewed by Therese Junior MD Normal [facility] Comment on above: Order Comment: Specimen Type: BLOOD SPEC IMENOrdering Facility: [facility] Address: [address] [place] [address] Performed By: #### I FESC ####[facility] LABCLIA [id number] [place] [address] [place] IMMUNOGLOBULINS,IGG,IGA,IGMo n 11-16-2023 IgA [Mass/Vol] 55 mg/dL Low 70-400 [facility] Comment on above: Order Comment: Specimen Type: BLOOD SPEC IMENOrdering Facility: [facility] Address: [address] [place] [address] Performed By: #### S ERIMM ####[facility] LABCLIA [id number] [place] [address] [place] IgG [Mass/Vol] 1242 mg/dL Normal 700-1600 [facility] Comment on above: Order Comment: Specimen Type: BLOOD SPEC IMENOrdering Facility: [facility] Address: [address] [place] [address] Performed By: #### S ERIMM ####[facility] LABCLIA [id number] [place] [address] [place] IgM [Mass/Vol] 72 mg/dL Normal 40-230 [facility] Comment on above: Order Comment: Specimen Type: BLOOD SPEC IMENOrdering Facility: [facility] Address: [address] [place] [address] Performed By: #### S ERIMM ####[facility] LABCLIA [id number] [place] [address] [place] KAPPA/LIM,FREE,SERon 2023 Immunoglobulin light chains.kappa.zaida e (S) [Mass/Vol] 25.0 mg/L High 3.3-19.4 [facility] Comment on above: Order Comment: Specimen Type: BLOOD SPEC IMENOrdering Facility: [facility] Address: [address] [place] [address] Result Comment: Rare ly, increased serum free light chains levels may not be detected or accurately quantified due to prozone phenomenon or in high viscosity samples using this immunoturbidimetric assay. Correlation with other laboratory results and clinical findings is recommended. The [place] Free Light Chain was performed using the Binding Site Optilite immunoturbidimetric method. Result obtained with different assay methods or kits cannot be used interchangeably. Performed By: #### K LFRS ####[facility] LABIA [id number] [place] [address] [place] Immunoglobulin light chains.kappa/Imm unoglobulin light chains.lambda (S) [Mass ratio] 1.45 Normal 0.26-1.65 [facility] Comment on above: Order Comment: Specimen Type: BLOOD SPEC IMENOrdering Facility: [facility] Address: [address] [place] [address] Performed By: #### K LFRS ####[facility] [id number] [address] [place] Immunoglobulin light chains.lambda.fr ee [Mass/Vol] 17.2 mg/L Normal 5.7-26.3 [facility] Comment on above: Order Comment: Specimen Type: BLOOD SPEC IMENOrdering Facility: [facility] Address: [address] [place] [address] Result Comment: Rare ly, increased serum free [...] interchangeably. Performed By: #### K LFRS ####[facility] LABIA [id number] [place] [address] [place] PROTEIN ELECTROPHORESIS SERU M WITH FAUSTINA (P)on 11-16-2023 Albumin [Mass/Vol] 4.23 g/dL Normal 3.43-5.41 [facility] Comment on above: Order Comment: Specimen Type: BLOOD SPEC IMENOrdering Facility: [facility] Address: [address] [place] [address] Performed By: #### L [id number] ####[facility] LABIA [id number] [place] [address] [place] Alpha 1 globulin Elph [Mass/Vol] 0.32 g/dL Normal 0.18-0.43 [facility] Comment on above: Order Comment: Specimen Type: BLOOD SPEC IMENOrdering Facility: [facility] Address: [address] [place] [address] Performed By: #### L [id number] ####[facility] LABIA [id number] [place] [address] [place] Alpha 2 globulin Elph [Mass/Vol] 0.80 g/dL Normal 0.42-0.98 [facility] Comment on above: Order Comment: Specimen Type: BLOOD SPEC IMENOrdering Facility: [facility] Address: [address] [place] [address] Performed By: #### L [id number] ####[facility] [id number] [place] [address] [place] Beta globulin Elph [Mass/Vol] 0.77 g/dL Normal 0.61-1.17 [facility] Comment on above: Order Comment: Specimen Type: BLOOD SPEC IMENOrdering Facility: [facility] Address: [address] [place] [address] Performed By: #### L [id number] ####[facility] [id number] [place] [address] [place] COMMENT (SERUM PROT ELECTRO) Monoclonal Protein analysis (immunofixation) is not indicated. Normal [facility] Comment on above: Order Comment: Specimen Type: BLOOD SPEC IMENOrdering Facility: [facility] Address: [address] [place] [address] Performed By: #### L [id number] ####[facility] LABIA [id number] [place] [address] [place] Gamma globulin Elph [Mass/Vol] 1.18 g/dL Normal 0.53-1.51 [facility] Comment on above: Order Comment: Specimen Type: BLOOD SPEC IMENOrdering Facility: [facility] Address: [address] [place] [address] Performed By: #### L [id number] ####[facility] LABIA [id number] [place] [address] [place] INTERPRETATION COMMENT FOR PROTEIN ELECTROPHORESIS See separate immunofixation report for characterization of monoclonal gammopathy. Normal [facility] Comment on above: Order Comment: Specimen Type: BLOOD SPEC IMENOrdering Facility: [facility] Address: [address] [place] [address] Performed By: #### L [id number] ####[facility] LABIA [id number] [address] [place] M-PROTEIN LOCATION Gamma Fraction 1 Normal [facility] Comment on above: Order Comment: Specimen Type: BLOOD SPEC IMENOrdering Facility: [facility] Address: [address] [place] [address] Performed By: #### L [id number] ####[facility] LABIA [id number] [place] [address] [place] Protein Fractions [Interp] An M protein is identified on protein electrophoresis. Abnormal No definitive M protein is identified on protein electrophoresis. [facility] Comment on above: Order Comment: Specimen Type: BLOOD SPEC IMENOrdering Facility: [facility] Address: [address] [place] [address] Performed By: #### L [id number] ####[facility] LABIA [id number] [place] [address] [place] Protein.monoclon al Elph [Mass/Vol] 0.73 g/dL High <=0.00 [facility] Comment on above: Order Comment: Specimen Type: BLOOD SPEC IMENOrdering Facility: [facility] Address: [address] [place] [address] Performed By: #### L [id number] ####[facility] LABCLIA [id number] [place] [id number] [place] SPE STAFF REVIEW Reviewed by Therese Junior MD Normal [facility] Comment on above: Order Comment: Specimen Type: BLOOD SPEC IMENOrdering Facility: [facility] Address: [address] [place] [address] Performed By: #### L [id number] ####[facility] LABCLIA [id number] [place] [id number] [place] Prot SerPl-mCncon 11-16-2023 Protein [Mass/Vol] 7.3 g/dL Normal 6.3-8.0 [facility] Comment on above: Order Comment: Specimen Type: BLOOD SPEC IMENOrdering Facility: [facility] Address: [address] [place] [address] Performed By: #### 2 885-2 ####[facility] LABCLIA [id number] [place] [address] [place] Lipid 1996 panelon 4 Cholesterol [Mass/Vol] 167 mg/dL Normal <200 [facility] Comment on above: Order Comment: Specimen Type: BLOOD SPEC IMENOrdering Facility: External Submitter Address: , , Result Comment: <200 mg/dL, Desirable 200-239 mg/dL, Borderline high >239 mg/dL, High Performed By: #### 2 4331-1 ####[facility] LABCLIA [id number] [place] [id number] [facility] LABCLIA [id number] [place] [address] Cholesterol in HDL [Mass/Vol] 37 mg/dL Low >39 [facility] Comment on above: Order Comment: Specimen Type: BLOOD SPEC IMENOrdering Facility: External Submitter Address: , , Result Comment: 40-5 9 mg/dL, Acceptable >59 mg/dL, High: Negative risk factor for coronary heart disease <40 mg/dL, Low: Positive risk factor for coronary heart disease Performed By: #### 2 4331-1 ####[facility] LABCLIA [id number] [id number] [place] [address] LABCLIA [id number] [place] [address] Cholesterol in LDL [Mass/Vol] 59 mg/dL Normal <100 [facility] Comment on above: Order Comment: Specimen Type: BLOOD SPEC IMENOrdering Facility: External Submitter Address: , , Result Comment: <100 mg/dL, Optimal 100-129 mg/dL, Near optimal/above optimal 130-159 mg/dL, Borderline high 160-189 mg/dL, High >189 mg/dL, Very high Secondary prevention optimal LDL Cholesterol levels are recommended to be < 70 mg/dL Performed By: #### 2 4331-1 ####[facility] LABCLIA [id number] [address] LABCLIA [id number] [place] [address] Cholesterol in LDL/Cholesterol in HDL [Mass ratio] 1.59 {ratio} Normal <2.54 [facility] Comment on above: Order Comment: Specimen Type: BLOOD SPEC IMENOrdering Facility: External Submitter Address: , , Result Comment: Refe rence: 1. National Cholesterol Education Program ATP III Guideline At-A-Glance Quick Desk Reference: National Heart, Lung, and Blood [place]. National Institutes of Health. 2001: NIH Publication No. 01-3305. 2. An International Atherosclerosis Society position paper: global recommendations for the management of dyslipidemia: executive summary, Atherosclerosis. 2014: 232(2):410-413. Performed By: #### 2 4331-1 ####[facility] LABCLIA [id number] [address] LABCLIA [id number] [place] [address] Cholesterol in VLDL [Mass/Vol] 71 mg/dL High <30 [facility] Comment on above: Order Comment: Specimen Type: BLOOD SPEC IMENOrdering Facility: External Submitter Address: , , Performed By: #### 2 4331-1 ####[facility] LABCLIA [id number] [address] LABCLIA [id number] [place] [address] Cholesterol non HDL [Mass/Vol] 130 mg/dL High <130 [facility] Comment on above: Order Comment: Specimen Type: BLOOD SPEC IMENOrdering Facility: External Submitter Address: , , Result Comment: <130 mg/dL, Optimal 130-159 mg/dL, Near optimal/above optimal 160-189 mg/dL, Borderline high 190-219 mg/dL, High >219 mg/dL, Very high Secondary prevention optimal non HDL Cholesterol levels are recommended to be <100 mg/dL Performed By: #### 2 4331-1 ####[facility] LABCLIA [id number] [address] LABCLIA [id number] [place] [id number] Cholesterol.tota l/Cholesterol in HDL [Mass ratio] 4.51 {ratio} Normal <5.10 [facility] Comment on above: Order Comment: Specimen Type: BLOOD SPEC IMENOrdering Facility: External Submitter Address: , , Performed By: #### 2 4331-1 ####[facility] LABCLIA [id number] [address] LABCLIA [id number] [place] [address] FASTING TIME 2 hrs Normal [facility] Comment on above: Order Comment: Specimen Type: BLOOD SPEC IMENOrdering Facility: External Submitter Address: , , Result Comment: nonf asting Performed By: #### 2 4331-1 ####[facility] LABCLIA [id number] [address] [address] [facility] LABCLIA [id number] [place] [address] Triglyceride [Mass/Vol] 357 mg/dL High <150 [facility] Comment on above: Order Comment: Specimen Type: BLOOD SPEC IMENOrdering Facility: External Submitter Address: , , Result Comment: <150 mg/dL, Normal 150-199 mg/dL, Borderline high 200-499 mg/dL, High >499 mg/dL, Very high Performed By: #### 2 4331-1 ####[facility] LABCLIA [id number] [address] LABCLIA [id number] [place] [address] PSA [facility] 11-09-2023 Prostate specific Ag [Mass/Vol] ng/mL Normal <2.60 [facility] Comment on above: Order Comment: Specimen Type: BLOOD SPEC IMENOrdering Facility: [facility] Address: [address] [place] [address] Result Comment: Jeremi mart PSA test methodology used is the Electrochemiluminescence Immunoassay by [employer]. Total PSA values by differing methodologies cannot be interchanged. Performed By: #### 2 857-1 ####[facility] LABCLIA [id number] [address] OF [facility] Ambulatory Visit Summaryon 0 10-24-2023 Ambulatory [...] ROSARIO, Yosef Bunch Where: [facility] [address] [place] [address]- 2024 11:00 AM EDT With: Where: [facility] [address] [address]- Medications What How Much When Instructions Unchanged [...] [place] Advance Directives reviewed. 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 No concerns with [...] Radical retropu (more content not included)... Normal [facility] Comment on above: Result Comment: [...] Appointments Monday 1:00 PM EDT With: Where: [facility] [address] [address]- Monday 11:00 AM EDT With: CORNELIO ROSARIO, Yosef Bunch Where: [facility] [address] [place] [address]- Medications What How Much When Instructions Unchanged [...] choosing us for your care. Normal [facility] Office/Clini c Noteon 09-27-2023 [...] for 90 day(s), 90 tab(s), Refill(s) 3, [facility], 185, cm, 09/27/23 11:20:00 EDT, Height/Length Dosing, 116, kg, 09/27/23 11:20:00 EDT, Weight Dosing hydrochlorothiazide-l isinopril, 1 tab(s), Oral, Daily, 30 tab(s), Refill(s) 0, [facility], 190, cm, 05/22/23 11:33:00 EDT, [...] Cancer - unknown origin: Father. Hypertension: Mother. [facility] Comment on above: Result Comment: Electronically Signed By : Shilpa Naylor\.arun\Date and Time Signed: 09/27/23 12:26 EDT Consultation Noteon 05-29-19 Consultation Note [id number] .00TIFF [facility] Consultation Noteon 05-26-19 Consultation Note [id number] .00TIFF [facility] Ambulatory Visit Summaryon 0 05-22-2023 Ambulatory Visit Summary ADOLPH JOHNS :1945 Visit Date:05/22/2023 Ambulatory Visit Instructions Your Diagnosis Prostate cancer Bladder tumor Your Care Team Attending Physician - CORNELIO ROSARIO, Yosef Bunch Primary Care Physician - Shahriar [place] MD This Is Your Medications List Contact [...] Appointments Monday 1:00 PM EDT With: Where: [facility] [address] [place] [address] [place] [address]- \.br\ You Need to Schedule the Following Appointments\.br\ Follow Up with CORNELIO ROSARIO, Yosef Bunch, URL When: \.br\ Comments:\.br\ 6 mos w/ PSA (gets level from [facility])\.br\ Where:\.br\ [facility] [address], [address] [place]\.br\ [place] [address]-\.br\ [phone]\.br\ Medications\.br\ What How Much When Instructions\.br\ Unchanged [...] Where to find more information\.br\ ? \.br\ [place] [employer]: www.cancer.org\.br\ ? \.br\ National Cancer [place]: www.cancer.gov\.br\ Contact a health care provider if:\.br\ [...] cancer. Where to find more information ? [place] [employer]: www.cancer.org ? National Cancer [place]: www.cancer.gov Contact a health care provider if: [...] - <0.02 PSMA PET scan 10/28/22 at [facility] - neg for mets; approx [...] Bunch, URL [facility] [address] [place] [phone] Additional Instructions: 6 mos w/ PSA (gets [...] 5 mg Tab (more content not included)... [facility] Comment on above: Result Comment: Electronically Signed By : Yosef GRIMES MD\.br\Date and Time Signed: 05/22/23 12:03 EDT\.br\Electronically Co-Signed By: Odette Cottrell.br\Date and Time Co-Signed: 05/22/23 12:01 EDT Pre-Certification Formon Pre-Certificatio n Form [id number] .00TIFF [facility] CBC W Auto Differential pane l (Bld)on 01-05-2023 Basophils (Bld) [#/Vol] <0.11 k/uL [facility] Basophils/100 WBC (Bld) 0.3 % [facility] Differential cell count method Nom (Bld) Auto [facility] Eosinophils (Bld) [#/Vol] 0.09 10*3/uL <0.46 k/uL [facility] Eosinophils/100 WBC (Bld) 1.1 % [facility] Erythrocyte distribution width (RBC) [Ratio] 14.9 % 11.5 - 15.0 % [facility] Hematocrit (Bld) [Volume fraction] 44.5 % 39.0 - 51.0 % [facility] Hemoglobin (Bld) [Mass/Vol] 15.0 g/dL 13.0 - 17.0 g/dL [facility] Immature granulocytes (Bld) [#/Vol] 0.08 10*3/uL <0.10 k/uL [facility] Immature granulocytes/100 WBC (Bld) 1.0 % [facility] Lymphocytes (Bld) [#/Vol] 0.45 10*3/uL Low 1.00 - 4.00 k/uL [facility] Lymphocytes/100 WBC (Bld) 5.6 % [facility] MCH (RBC) [Entitic mass] 29.1 pg 26.0 - 34.0 pg [facility] MCHC (RBC) [Mass/Vol] 33.7 g/dL 30.5 - 36.0 g/dL [facility] MCV (RBC) [Entitic vol] 86.2 fL 80.0 - 100.0 fL [facility] Monocytes (Bld) [#/Vol] 0.66 10*3/uL <0.87 k/uL [facility] Monocytes/100 WBC (Bld) 8.3 % [facility] Neutrophils (Bld) [#/Vol] 6.67 10*3/uL 1.45 - 7.50 k/uL [facility] Neutrophils/100 WBC (Bld) 83.7 % [facility] Nucleated RBC (Bld) [#/Vol] <0.01 k/uL [facility] Nucleated RBC/100 WBC (Bld) [Ratio] 0.0 /100 WBC [facility] Platelet mean volume (Bld) [Entitic vol] 10.1 fL 9.0 - 12.7 fL [facility] Platelets (Bld) [#/Vol] 100 10*3/uL Low 150 - 400 k/uL [facility] RBC (Bld) [#/Vol] 5.16 10*6/uL 4.20 - 6.00 m/uL [facility] WBC (Bld) [#/Vol] 7.97 10*3/uL 3.70 - 11.00 k/uL [facility] Comprehensive metabolic 2000 panelon 01-05-2023 Albumin [Mass/Vol] 4.8 g/dL 3.9 - 4.9 g/dL [facility] ALP [Catalytic activity/Vol] 50 U/L 38 - 113 U/L [facility] ALT [Catalytic activity/Vol] 9 U/L Low 10 - 54 U/L [facility] Anion gap [Moles/Vol] 12 mmol/L 9 - 18 mmol/L [facility] AST [Catalytic activity/Vol] 14 U/L 14 - 40 U/L [facility] Bilirubin [Mass/Vol] 0.8 mg/dL 0.2 - 1.3 mg/dL [facility] Calcium [Mass/Vol] 10.5 mg/dL High 8.5 - 10.2 mg/dL [facility] Chloride [Moles/Vol] 103 mmol/L 97 - 105 mmol/L [facility] CO2 [Moles/Vol] 24 mmol/L 22 - 30 mmol/L [facility] Creatinine [Mass/Vol] 1.33 mg/dL High 0.73 - 1.22 mg/dL [facility] Estimated Glomerular Filtration Rate 55 mL/min/1.73m Low >=60 mL/min/1.73m [facility] Glucose [Mass/Vol] 112 mg/dL High 74 - 99 mg/dL [facility] Potassium [Moles/Vol] 3.1 mmol/L Low 3.7 - 5.1 mmol/L [facility] Protein [Mass/Vol] 7.8 g/dL 6.3 - 8.0 g/dL [facility] Sodium [Moles/Vol] 139 mmol/L 136 - 144 mmol/L [facility] Urea nitrogen [Mass/Vol] 28 mg/dL High 9 - 24 mg/dL [facility] CBC W Auto Differential pane l (Bld)on 12-22-2022 Basophils (Bld) [#/Vol] <0.11 k/uL [facility] Basophils/100 WBC (Bld) 0.2 % [facility] Differential cell count method Nom (Bld) Auto [facility] Eosinophils (Bld) [#/Vol] 0.09 10*3/uL <0.46 k/uL [facility] Eosinophils/100 WBC (Bld) 1.0 % [facility] Erythrocyte distribution width (RBC) [Ratio] 14.7 % 11.5 - 15.0 % [facility] Hematocrit (Bld) [Volume fraction] 45.5 % 39.0 - 51.0 % [facility] Hemoglobin (Bld) [Mass/Vol] 15.2 g/dL 13.0 - 17.0 g/dL [facility] Immature granulocytes (Bld) [#/Vol] 0.10 10*3/uL High <0.10 k/uL [facility] Immature granulocytes/100 WBC (Bld) 1.1 % [facility] Lymphocytes (Bld) [#/Vol] 1.02 10*3/uL 1.00 - 4.00 k/uL [facility] Lymphocytes/100 WBC (Bld) 11.0 % [facility] MCH (RBC) [Entitic mass] 29.0 pg 26.0 - 34.0 pg [facility] MCHC (RBC) [Mass/Vol] 33.4 g/dL 30.5 - 36.0 g/dL [facility] MCV (RBC) [Entitic vol] 86.7 fL 80.0 - 100.0 fL [facility] Monocytes (Bld) [#/Vol] 0.74 10*3/uL <0.87 k/uL [facility] Monocytes/100 WBC (Bld) 8.0 % [facility] Neutrophils (Bld) [#/Vol] 7.31 10*3/uL 1.45 - 7.50 k/uL [facility] Neutrophils/100 WBC (Bld) 78.7 % [facility] Nucleated RBC (Bld) [#/Vol] <0.01 k/uL [facility] Nucleated RBC/100 WBC (Bld) [Ratio] 0.0 /100 WBC [facility] Platelet mean volume (Bld) [Entitic vol] 9.8 fL 9.0 - 12.7 fL [facility] Platelets (Bld) [#/Vol] 166 10*3/uL 150 - 400 k/uL [facility] RBC (Bld) [#/Vol] 5.25 10*6/uL 4.20 - 6.00 m/uL [facility] WBC (Bld) [#/Vol] 9.28 10*3/uL 3.70 - 11.00 k/uL [facility] MRI PROSTATE WO/W IVCONon [facility] Urinalysis - AUTOMATEDon Appearance (U) CLEAR [employer] Other Bilirubin Ql (U) Negative [employer] Other Color (U) YELLOW [employer] Other Glucose Ql (U) Negative [employer] Other Hemoglobin Ql (U) TRACE INTACT [employer] Other Ketones Ql (U) Negative [employer] Other Leukocyte esterase Test strip Ql (U) Negative [employer] Other Nitrite Ql (U) Negative [employer] Other pH (U) 5.5 [pH] [employer] Other Protein Ql (U) 100 [employer] Other Specific gravity (U) [Rel density] 1.025 [employer] Other Urobilinogen (U) [Mass/Vol] 0.2 mg/dL [employer] Other Urinalysis - AUTOMATED [employer] Other Urine Cultureon 10-09-2022 Bacteria identified Cx Nom (U) [employer] Other PTH INTACTon 10-14-2021 PTH, Intact 25 pg/mL Normal 15-65 [facility] Comment on above: Performed By: #### PTHINT #### [facility] [address] [place] [address] Dr. Brenda Kline VIT D 25-OH LABCORPon 2021 Vitamin D, 25-Hydroxy 36.7 ng/mL Normal 30.0-100.0 [facility] Comment on above: Result Comment: Vitamin D deficiency has been defined by the [place] of Medicine and an Endocrine Society practice guideline as a level of serum 25-OH vitamin D less than 20 ng/mL (1,2). The Endocrine Society went on to further define vitamin D insufficiency as a level between 21 and 29 ng/mL (2). 1. IOM ([place] of Medicine). 2010. Dietary reference intakes for calcium and D. [place]: The National Academies Press. 2. Daniel MF, Tiarra NC, Dago PERRY, et al. Evaluation, treatment, and prevention of vitamin D deficiency: an Endocrine Society clinical practice guideline. JCEM. 2010; 96(7):1911-30. Performed By: #### V ITADLC ####[facility] [id number] [place] [address]Dr. Brenda Kline HEMOGRAM AND PLATELon 2021 Hematocrit (Bld) [Volume fraction] 50.0 % Normal 42.0-54.0 [facility] Comment on above: Performed By: #### HH #### [facility] [address] [place] [address] [address] Brenda Kline Hemoglobin (Bld) [Mass/Vol] 16.3 g/dL Normal 14.0-18.0 [facility] Comment on above: Performed By: #### HH #### [facility] [address] [place] [address] [address] Brenda Kline MCH (RBC) [Entitic mass] 29.1 pg Normal 25.9-34.0 [facility] Comment on above: Performed By: #### HH #### [facility] [address] [place] [address] [address] Brenda Kline MCHC (RBC) [Mass/Vol] 32.6 g/dL Normal 29.9-35.2 [facility] Comment on above: Performed By: #### HH #### [facility] [address] [place] [address] [address] Brenda Kline MCV (RBC) [Entitic vol] 89.3 fL Normal 80.0-94.0 [facility] Comment on above: Performed By: #### HH #### [facility] [address] [place] [address] [address] Brenda Kline PLT 197 103/ul Normal 150-450 [facility] Comment on above: Performed By: #### HH #### [facility] [address] [place] [address] [address] Brenda Kline RBC 5.60 106/ul Normal 4.70-6.10 [facility] Comment on above: Performed By: #### HH #### [facility] [address] [place] [address] [address] Brenda Kline WBC 7.9 103/ul Normal 4.0-11.0 [facility] Comment on above: Performed By: #### HH #### [facility] [address] [place] [address] [address] Brenda Kline MAGNESIUMon 10-13-2021 Magnesium [Mass/Vol] 2.1 mg/dL Normal 1.8-2.4 [facility] Comment on above: Performed By: #### RENAL, MG, URIC ####[facility] [id number] [place] [address]Dr. Brenda Kline RENAL FUNCTION PANELon 10-13 Albumin [Mass/Vol] 4.1 g/dL Normal 3.4-5.0 [facility] Comment on above: Performed By: #### RENAL, MG, URIC #### [facility] [address] [place] [address] Dr. Brenda Kline Calcium [Mass/Vol] 9.6 mg/dL Normal 8.5-10.1 [facility] Comment on above: Performed By: #### RENAL, MG, URIC #### [facility] [address] [place] [address] Dr. Brenda Kline Chloride [Moles/Vol] 103 mmol/L Normal 98-107 [facility] Comment on above: Performed By: #### RENAL, MG, URIC #### [facility] [address] [place] [address] [address] Brenda Kline CO2 [Moles/Vol] 27.2 mmol/L Normal 21.0-32.0 [facility] Comment on above: Performed By: #### RENAL, MG, URIC #### [facility] [address] [place] [address] [address] Brenda Kline Creatinine [Mass/Vol] 1.68 mg/dL Critically high 0.70-1.30 [facility] Comment on above: Performed By: #### RENAL, MG, URIC #### [facility] [address] [place] [address] Dr. Brenda Kline EGFR-AF GUAMANIAN 49 mL/min/1.73m2 Critically low >=60 [facility] Comment on above: Performed By: #### RENAL, MG, URIC #### [facility] [address] [place] [address] Dr. Brenda Kline EGFR-NON AF GUAMANIAN 40 mL/min/1.73m2 Critically low >=60 [facility] Comment on above: Performed By: #### RENAL, MG, URIC #### [facility] [address] [place] [address] Dr. Brenda Kline Glucose [Mass/Vol] 125 mg/dL Critically high 74-106 [facility] Comment on above: Performed By: #### RENAL, MG, URIC #### [facility] [address] [place] [address] [address] Brenda Kline Phosphate [Mass/Vol] 3.5 mg/dL Normal 2.6-4.7 [facility] Comment on above: Performed By: #### RENAL, MG, URIC #### [facility] [address] [place] [address] Dr. Brenda Kline Potassium [Moles/Vol] 4.1 mmol/L Normal 3.5-5.1 [facility] Comment on above: Performed By: #### RENAL, MG, URIC #### [facility] [address] [place] [address] Dr. Brenda Kline Sodium [Moles/Vol] 139 mmol/L Normal 136-145 [facility] Comment on above: Performed By: #### RENAL, MG, URIC #### [facility] [address] [place] [address] Dr. Brenda Kline Urea nitrogen [Mass/Vol] 25.0 mg/dL Critically high 7.0-18.0 [facility] Comment on above: Performed By: #### RENAL, MG, URIC #### [facility] [address] [place] [address] Dr. Brenda Kline UA RANDOM W/MICROSCOPICon BACTERIA NONE SEEN Normal NONE SEEN [facility] Comment on above: Performed By: #### UAMIC #### [facility] [address] [place] [address] Dr. Brenda Kline Bilirubin Ql (U) Negative Normal NEGATIVE [facility] Comment on above: Performed By: #### UAMIC #### [facility] [address] [place] [address] Dr. Brenda Kline CAST SEEN Abnormal NONE SEEN [facility] Comment on above: Performed By: #### UAMIC #### [facility] [address] [place] [address] Dr. Brenda Kline Clarity (U) CLEAR Normal CLEAR [facility] Comment on above: Performed By: #### UAMIC #### [facility] [address] [place] [address] Dr. Brenda Kline Color (U) YELLOW Normal YELLOW [facility] Comment on above: Performed By: #### UAMIC #### [facility] [address] [place] [address] Dr. Brenda Kline Crystals LM Nom (Urine sed) NONE SEEN Normal NONE SEEN [facility] Comment on above: Performed By: #### UAMIC #### [facility] [address] [place] [address] Dr. Brenda Kline Epithelial cells LM Ql (Urine sed) RARE Normal NONE SEEN /RARE [facility] Comment on above: Performed By: #### UAMIC #### [facility] [address] [place] [address] Dr. Brenda Kline Glucose Ql (U) Negative Normal NEGATIVE [facility] Comment on above: Performed By: #### UAMIC #### [facility] [address] [place] [address] Dr. Brenda Kline Hemoglobin Ql (U) Negative Normal NEGATIVE [facility] Comment on above: Performed By: #### UAMIC #### [facility] [address] [place] [address] Dr. Brenda Kline HYALINE CAST RARE Normal [facility] Comment on above: Performed By: #### UAMIC #### [facility] [address] [place] [address] Dr. Brenda Kline Ketones Ql (U) Negative Normal NEGATIVE [facility] Comment on above: Performed By: #### UAMIC #### [facility] [address] [place] [address] [address] Brenda Kline LEUKOCYTES Negative Normal NEGATIVE [facility] Comment on above: Performed By: #### UAMIC #### [facility] [address] [place] [address] [address] Brenda Kline MUCOUS TRACE Abnormal NONE SEEN [facility] Comment on above: Performed By: #### UAMIC #### [facility] [address] [place] [address] Dr. Brenda Kline Nitrite Ql (U) Negative Normal NEGATIVE [facility] Comment on above: Performed By: #### UAMIC #### [facility] [address] [place] [address] Dr. Brenda Kline pH (U) 5.5 [pH] Normal 5-9 [facility] Comment on above: Performed By: #### UAMIC #### [facility] [address] [place] [address] Dr. Brenda Kline RBC 0-2 Normal 0-2 [facility] Comment on above: Performed By: #### UAMIC #### [facility] [address] [place] [address] Dr. Brenda Kline SPEC GRAVITY 1.025 Normal 1.005-<=1.025 [facility] Comment on above: Performed By: #### UAMIC #### [facility] [address] [place] [address] Dr. Brenda Kline UA PROTEIN Negative Normal NEGATIVE/ TRACE [facility] Comment on above: Performed By: #### UAMIC #### [facility] [address] [place] [address] Dr. Brenda Kline Urobilinogen Qn (U) 0.2 {Cayden'U}/dL Normal 0.2 - 1.0 [facility] Comment on above: Performed By: #### UAMIC #### [facility] [address] [place] [address] [address] Brenda Kline WBC 0-2 Abnormal NONE SEEN [facility] Comment on above: Performed By: #### UAMIC #### [facility] [address] [place] [address] [address] Brenda Kline URIC ACID SERUMon 10-13-2021 Urate [Mass/Vol] 7.2 mg/dL Normal 3.5-7.2 [facility] Comment on above: Performed By: #### RENAL, MG, URIC #### [facility] [address] [place] [address] Dr. Brenda Kline URINE T PROTEIN CREAT RATIOo n 10-13-2021 Protein (U) [Mass/Vol] 29.0 mg/dL Critically high <=12.0 [facility] Comment on above: Performed By: #### URTPCR #### [facility] [address] [place] [address] Dr. Brenda Kline UR PROT CREAT RAT 0.14 Normal [facility] Comment on above: Performed By: #### URTPCR #### [facility] [address] [place] [address] Dr. Brenda Kline URINE CREAT 202.37 mg/dL Normal 20.00-300.00 [facility] Comment on above: Performed By: #### URTPCR #### [facility] [address] [place] [address] Dr. Brenda Kline US FINE NEEDLE ASP EXPon US FINE NEEDLE ASP EXP Begin Addendum #1 COLLECTED DATE/TIME: 08/16/2021 07:32 EDT Final Diagnosis Report for [facility] [place] (A-B) RIGHT GROIN MASS; FINE NEEDLE [...] 2. Pathology results are pending. Normal [facility] CREATININEon 07-20-2021 Creatinine [Mass/Vol] 1.65 mg/dL Critically high 0.70-1.30 [facility] Comment on above: Performed By: #### CREA ####[facility] [id number] [place] [address]Dr. Brenda Kline EGFR-AF GUAMANIAN 50 mL/min/1.73m2 Critically low >=60 [facility] Comment on above: Performed By: #### CREA ####[facility] [id number] [place] [address]Dr. Brenda Kline EGFR-NON AF GUAMANIAN 41 mL/min/1.73m2 Critically low >=60 [facility] Comment on above: Performed By: #### CREA ####[facility] [id number] [place] [address] Brenda Kline [address] PELVIS W CONon 07-20-2021 [...] MIA PERSON Date: 2021-07-20 16:34 Normal [facility] US SINGLE QUAD RT LOWERon US SINGLE [...] MIA PERSON Date: 2021-07-09 17:23 Normal [facility] COVID Quick Testingon 2020 Result Negative [employer] Other Vital Signs Date Time Vital Sign Value Performing Clinician Facility 06-04-2024 14:53-0400 Body mass index (BMI) [Ratio] 31.84 kg/m2 YOAN Kumari MD Work Phone: [facility] 06-04-2024 14:53-0400 Body temperature 97.2 [degF] YOAN Kumari MD Work Phone: [facility] 06-04-2024 14:53-0400 Body weight 118.6 kg YOAN Kumari MD Work Phone: [facility] 06-04-2024 14:53-0400 Heart rate 75 /min YOAN Kumari MD Work Phone: [facility] 06-04-2024 14:53-0400 Respiratory rate 16 /min YOAN Kumari MD Work Phone: [facility] 06-04-2024 14:53-0400 SaO2% (BldA) [Mass fraction] 94 % YOAN Kumari MD Work Phone: [facility] 05-20-2024 13:58-0400 Body mass index (BMI) [Ratio] 31.65 kg/m2 Minoo Jairo 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 Phone: [facility] 05-20-2024 13:58-0400 Body temperature 97.59 [degF] Minoo Jairo 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 Phone: [facility] 05-20-2024 13:58-0400 Body weight 117.9 kg Minoo Jairo 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 Phone: [facility] 05-20-2024 13:58-0400 Diastolic blood pressure 72 mm[Hg] Minoo Jairo 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 Phone: [facility] 05-20-2024 13:58-0400 Heart rate 79 /min Minoo Jairo 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 Phone: [facility] 05-20-2024 13:58-0400 Respiratory rate 16 /min Minoo Jairo 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 Phone: [facility] 05-20-2024 13:58-0400 SaO2% (BldA) [Mass fraction] 97 % Minoo Jairo 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 Phone: [facility] 05-20-2024 13:58-0400 Systolic blood pressure 120 mm[Hg] Minoo Jairo 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 Phone: [facility] 03-04-2024 09:49-0500 Diastolic blood pressure 74 mm[Hg] Yosef GRIMES [facility] 03-04-2024 09:49-0500 Heart rate 67 /min Yosef GRIMES [facility] 03-04-2024 09:49-0500 Respiratory rate 16 /min Yosef GRIMES [facility] 03-04-2024 09:49-0500 Systolic blood pressure 142 mm[Hg] Yosef GRIMES [facility] 01-23-2024 12:46-0500 Diastolic blood pressure 79 mm[Hg] Meño Bob [facility] 01-23-2024 12:46-0500 Heart rate 85 /min Meño Bob [facility] 01-23-2024 12:46-0500 Respiratory rate 16 /min Meño Bob [facility] 01-23-2024 12:46-0500 SaO2% (BldA) [Mass fraction] 95 % Meño Bob [facility] 01-23-2024 12:46-0500 Systolic blood pressure 120 mm[Hg] Meño Bob [facility] 01-10-2024 12:49-0500 Blood Pressure Location Yosef GRIMES [facility] 01-10-2024 12:49-0500 Body temperature 98.6 [degF] Yosef GRIMES [facility] 01-10-2024 12:49-0500 Diastolic blood pressure 83 mm[Hg] Yosef GRIMES [facility] 01-10-2024 12:49-0500 Heart rate 89 /min Yosef GRIMES [facility] 01-10-2024 12:49-0500 Respiratory rate 17 /min Yosef GRIMES [facility] 01-10-2024 12:49-0500 Systolic blood pressure 126 mm[Hg] Yosef GRIMES [facility] 01-08-2024 08:56-0500 Blood Pressure Location Yosef GRIMES [facility] 01-08-2024 08:56-0500 Body temperature 98.6 [degF] Yosef GRIMES [facility] 01-08-2024 08:56-0500 Diastolic blood pressure 83 mm[Hg] Yosef GRIMES [facility] 01-08-2024 08:56-0500 Heart rate 70 /min Yosef GRIMES [facility] 01-08-2024 08:56-0500 Respiratory rate 18 /min Yosef GRIMES [facility] 01-08-2024 08:56-0500 Systolic blood pressure 137 mm[Hg] Yosef GRIMES [facility] 11-24-2023 11:48-0400 Blood Pressure Location Yosef GRIMES [facility] 11-24-2023 11:48-0400 Body temperature 98.6 [degF] Yosef GRIMES [facility] 11-24-2023 11:48-0400 Diastolic blood pressure 86 mm[Hg] Yosef GRIMES [facility] 11-24-2023 11:48-0400 Heart rate 68 /min Yosef GRIMES [facility] 11-24-2023 11:48-0400 Respiratory rate 16 /min Yosef GRIMES [facility] 11-24-2023 11:48-0400 Systolic blood pressure 134 mm[Hg] Yosef GRIMES [facility] 11-16-2023 14:59-0400 Body height 193 cm Nicolas Hwang MD Work Phone: [facility] 11-16-2023 14:59-0400 Body mass index (BMI) [Ratio] 31.81 kg/m2 Nicolas Hwang MD Work Phone: [facility] 11-16-2023 14:59-0400 Body temperature 96.69 [degF] Nicolas Hwang MD Work Phone: [facility] 11-16-2023 14:59-0400 Body weight 118.5 kg Nicolas Hwang MD Work Phone: [facility] 11-16-2023 14:59-0400 Diastolic blood pressure 73 mm[Hg] Nicolas Hwang MD Work Phone: [facility] 11-16-2023 14:59-0400 Heart rate 93 /min Nicolas Hwang MD Work Phone: [facility] 11-16-2023 14:59-0400 Respiratory rate 18 /min Nicolas Hwang MD Work Phone: [facility] 11-16-2023 14:59-0400 SaO2% (BldA) [Mass fraction] 94 % Nicolas Hwang MD Work Phone: [facility] 11-16-2023 14:59-0400 Systolic blood pressure 124 mm[Hg] Nicolas Hwang MD Work Phone: [facility] 11-16-2023 14:13-0400 Body mass index (BMI) [Ratio] 31.84 kg/m2 YOAN Kumari MD Work Phone: [facility] 11-16-2023 14:13-0400 Body temperature 96.69 [degF] YOAN Kumari MD Work Phone: [facility] 11-16-2023 14:13-0400 Body weight 118.6 kg YOAN Kumari MD Work Phone: [facility] 11-16-2023 14:13-0400 Diastolic blood pressure 73 mm[Hg] YOAN Kumari MD Work Phone: [facility] 11-16-2023 14:13-0400 Heart rate 93 /min YOAN Kumari MD Work Phone: [facility] 11-16-2023 14:13-0400 Respiratory rate 18 /min YOAN Kumari MD Work Phone: [facility] 11-16-2023 14:13-0400 SaO2% (BldA) [Mass fraction] 94 % YOAN Kumari MD Work Phone: [facility] 11-16-2023 14:13-0400 Systolic blood pressure 124 mm[Hg] YOAN Kumari MD Work Phone: [facility] 05-22-2023 11:20-0400 Blood Pressure Location Yosef GRIMES [facility] 05-22-2023 11:20-0400 Body temperature 98.42 [degF] Yosef GRIMES [facility] 05-22-2023 11:20-0400 Diastolic blood pressure 85 mm[Hg] Yosef GRIMES [facility] 05-22-2023 11:20-0400 Heart rate 81 /min Yosef GRIMES [facility] 05-22-2023 11:20-0400 Respiratory rate 16 /min Yosef GRIMES [facility] 05-22-2023 11:20-0400 Systolic blood pressure 118 mm[Hg] Yosef GRIMES [facility] 05-18-2023 13:16-0400 Body temperature 97 [degF] Elio Payne 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 Phone: [facility] 05-18-2023 13:16-0400 Body weight 115.8 kg Elio Payne 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 Phone: [facility] 05-18-2023 13:16-0400 Diastolic blood pressure 74 mm[Hg] Elio Payne 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 Phone: [facility] 05-18-2023 13:16-0400 Heart rate 84 /min Elio Payne 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 Phone: [facility] 05-18-2023 13:16-0400 Respiratory rate 18 /min Elio Payne 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 Phone: [facility] 05-18-2023 13:16-0400 SaO2% (BldA) [Mass fraction] 94 % Elio Payne 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 Phone: [facility] 05-18-2023 13:16-0400 Systolic blood pressure 144 mm[Hg] Elio Payne 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 Phone: [facility] 01-16-2023 12:20-0500 Body temperature 97.39 [degF] YOAN Kumari MD Work Phone: [facility] 01-16-2023 12:20-0500 Body weight 109.32 kg YOAN Kumari MD Work Phone: [facility] 01-16-2023 12:20-0500 Diastolic blood pressure 74 mm[Hg] YOAN Kumari MD Work Phone: [facility] 01-16-2023 12:20-0500 Heart rate 66 /min YOAN Kumari MD Work Phone: [facility] 01-16-2023 12:20-0500 Respiratory rate 18 /min YOAN Kumari MD Work Phone: [facility] 01-16-2023 12:20-0500 SaO2% (BldA) [Mass fraction] 96 % YOAN Kumari MD Work Phone: [facility] 01-16-2023 12:20-0500 Systolic blood pressure 114 mm[Hg] YOAN Kumari MD Work Phone: [facility] 01-05-2023 12:45-0500 Body height 193 cm Nicolas Hwang MD Work Phone: [facility] 01-05-2023 12:45-0500 Body temperature 97 [degF] Nicolas Hwang MD Work Phone: [facility] 01-05-2023 12:45-0500 Body weight 109.77 kg Nicolas Hwang MD Work Phone: [facility] 01-05-2023 12:45-0500 Diastolic blood pressure 70 mm[Hg] Nicolas Hwang MD Work Phone: [facility] 01-05-2023 12:45-0500 Heart rate 60 /min Nicolas Hwang MD Work Phone: [facility] 01-05-2023 12:45-0500 Respiratory rate 16 /min Nicolas Hwang MD Work Phone: [facility] 01-05-2023 12:45-0500 SaO2% (BldA) [Mass fraction] 94 % Nicolas Hwang MD Work Phone: [facility] 01-05-2023 12:45-0500 Systolic blood pressure 124 mm[Hg] Nicolas Hwang MD Work Phone: [facility] 01-02-2023 12:22-0500 Body temperature 97.59 [degF] YOAN Kumari MD Work Phone: [facility] 01-02-2023 12:22-0500 Body weight 110.13 kg YOAN Kumari MD Work Phone: [facility] 01-02-2023 12:22-0500 Diastolic blood pressure 75 mm[Hg] YOAN Kumari MD Work Phone: [facility] 01-02-2023 12:22-0500 Heart rate 59 /min YOAN Kumari MD Work Phone: [facility] 01-02-2023 12:22-0500 Respiratory rate 16 /min YOAN Kumari MD Work Phone: [facility] 01-02-2023 12:22-0500 SaO2% (BldA) [Mass fraction] 96 % YOAN Kumari MD Work Phone: [facility] 01-02-2023 12:22-0500 Systolic blood pressure 112 mm[Hg] YOAN Kumari MD Work Phone: [facility] 12-26-2022 12:09-0500 Body temperature 96.91 [degF] YOAN Kumari MD Work Phone: [facility] 12-26-2022 12:09-0500 Body weight 111.04 kg YOAN Kumari MD Work Phone: [facility] 12-26-2022 12:09-0500 Diastolic blood pressure 75 mm[Hg] YOAN Kumari MD Work Phone: [facility] 12-26-2022 12:09-0500 Heart rate 66 /min YOAN Kumari MD Work Phone: [facility] 12-26-2022 12:09-0500 Respiratory rate 16 /min YOAN Kumari MD Work Phone: [facility] 12-26-2022 12:09-0500 SaO2% (BldA) [Mass fraction] 95 % YOAN Kumari MD Work Phone: [facility] 12-26-2022 12:09-0500 Systolic blood pressure 116 mm[Hg] YOAN Kumari MD Work Phone: [facility] 12-19-2022 12:17-0500 Body temperature 97 [degF] YOAN Kumari MD Work Phone: [facility] 12-19-2022 12:17-0500 Body weight 111.04 kg YOAN Kumari MD Work Phone: [facility] 12-19-2022 12:17-0500 Diastolic blood pressure 68 mm[Hg] YOAN Kumari MD Work Phone: [facility] 12-19-2022 12:17-0500 Heart rate 81 /min YOAN Kumari MD Work Phone: [facility] 12-19-2022 12:17-0500 Respiratory rate 16 /min YOAN Kumari MD Work Phone: [facility] 12-19-2022 12:17-0500 SaO2% (BldA) [Mass fraction] 99 % YOAN Kumari MD Work Phone: [facility] 12-19-2022 12:17-0500 Systolic blood pressure 115 mm[Hg] YOAN Kumari MD Work Phone: [facility] 12-14-2022 10:57-0500 Body temperature 97 [degF] YOAN Kumari MD Work Phone: [facility] 12-14-2022 10:57-0500 Body weight 109.77 kg YOAN Kumari MD Work Phone: [facility] 12-14-2022 10:57-0500 Diastolic blood pressure 76 mm[Hg] YOAN Kumari MD Work Phone: [facility] 12-14-2022 10:57-0500 Heart rate 59 /min YOAN Kumari MD Work Phone: [facility] 12-14-2022 10:57-0500 Respiratory rate 16 /min YOAN Kumari MD Work Phone: [facility] 12-14-2022 10:57-0500 SaO2% (BldA) [Mass fraction] 96 % NA Jasmyne ROSARIO Work Phone: [facility] 12-14-2022 10:57-0500 Systolic blood pressure 125 mm[Hg] NA Jasmyne ROSARIO Work Phone: [facility] 12-02-2022 12:15-0400 Blood Pressure Location Yosef GRIMES [facility] 12-02-2022 12:15-0400 Diastolic blood pressure 74 mm[Hg] Yosef GRIMES [facility] 12-02-2022 12:15-0400 Heart rate 68 /min Yosef GRIMES [facility] 12-02-2022 12:15-0400 Systolic blood pressure 129 mm[Hg] Yosef GRIMES [facility] 11-18-2022 11:18-0400 Blood Pressure Location Yosef GRIMES [facility] 11-18-2022 11:18-0400 Diastolic blood pressure 70 mm[Hg] Yosef GRIMES [facility] 11-18-2022 11:18-0400 Heart rate 68 /min Yosef GRIMES [facility] 11-18-2022 11:18-0400 Respiratory rate 16 /min Yosef GRIMES [facility] 11-18-2022 11:18-0400 Systolic blood pressure 128 mm[Hg] Yosef GRIMES [facility] 11-15-2022 08:47-0400 Body temperature 97.59 [degF] YOAN Kumari MD Work Phone: [facility] 11-15-2022 08:47-0400 Body weight 112.49 kg YOAN Kumari MD Work Phone: [facility] 11-15-2022 08:47-0400 Diastolic blood pressure 78 mm[Hg] YOAN Kumari MD Work Phone: [facility] 11-15-2022 08:47-0400 Heart rate 57 /min YOAN Kumari MD Work Phone: [facility] 11-15-2022 08:47-0400 Respiratory rate 20 /min YOAN Kumari MD Work Phone: [facility] 11-15-2022 08:47-0400 SaO2% (BldA) [Mass fraction] 96 % YOAN Kumari MD Work Phone: [facility] 11-15-2022 08:47-0400 Systolic blood pressure 127 mm[Hg] YOAN Kumari MD Work Phone: [facility] 10-09-2022 10:45-0400 Body height 193.04 cm Angelina Holder Other [employer] Other 10-09-2022 10:45-0400 Body mass index (BMI) [Ratio] 30.59 kg/m2 Angelina Holder Other [employer] Other 10-09-2022 10:45-0400 Body temperature 98.3 [degF] Angelina Holder Other [employer] Other 10-09-2022 10:45-0400 Body weight 113.99 kg Angelina Holder Other [employer] Other 10-09-2022 10:45-0400 Diastolic blood pressure 68 mm[Hg] Angelina Holder Other [employer] Other 10-09-2022 10:45-0400 Respiratory rate 16 /min Angelina Curranmond Other [employer] Other 10-09-2022 10:45-0400 SaO2% (BldA) [Mass fraction] 96 % Angelina Curranmond Other [employer] Other 10-09-2022 10:45-0400 Systolic blood pressure 110 mm[Hg] Angelina Curranmond Other [employer] Other 10-03-2022 13:53-0400 Blood Pressure Location Yosef GRIMES [facility] 10-03-2022 13:53-0400 Diastolic blood pressure 70 mm[Hg] Yosef GRIMES [facility] 10-03-2022 13:53-0400 Heart rate 80 /min Yosef GRIMES [facility] 10-03-2022 13:53-0400 Respiratory rate 16 /min Yosef GRIMES [facility] 10-03-2022 13:53-0400 Systolic blood pressure 130 mm[Hg] Yosef GRIMES [facility] 06-02-2022 14:00-0400 Body height 193 cm Elio Payne APRN.PHP WEBSITE DEVELOPER Work Phone: [facility] 06-02-2022 14:00-0400 Body temperature 97.81 [degF] Elio Payne APRN.NORBERTO Work Phone: [facility] 06-02-2022 14:00-0400 Body weight 118.03 kg Elio Renny 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 Phone: [facility] 06-02-2022 14:00-0400 Diastolic blood pressure 63 mm[Hg] Elio Payne 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 Phone: [facility] 06-02-2022 14:00-0400 Heart rate 77 /min Elio Payne 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 Phone: [facility] 06-02-2022 14:00-0400 Respiratory rate 18 /min Elio Payne 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 Phone: [facility] 06-02-2022 14:00-0400 SaO2% (BldA) [Mass fraction] 93 % Elio Payne 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 Phone: [facility] 06-02-2022 14:00-0400 Systolic blood pressure 118 mm[Hg] Elio Payne 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 Phone: [facility] 11-02-2021 12:50-0400 Body height 193 cm Nicolas Hwang MD Work Phone: [facility] 11-02-2021 12:50-0400 Body temperature 97.7 [degF] Nicolas Hwang MD Work Phone: [facility] 11-02-2021 12:50-0400 Body weight 119.39 kg Nicolas Hwang MD Work Phone: [facility] 11-02-2021 12:50-0400 Diastolic blood pressure 77 mm[Hg] Nicolas Hwang MD Work Phone: [facility] 11-02-2021 12:50-0400 Heart rate 72 /min Nicolas Hwang MD Work Phone: [facility] 11-02-2021 12:50-0400 Respiratory rate 18 /min Nicolas Hwang MD Work Phone: [facility] 11-02-2021 12:50-0400 SaO2% (BldA) [Mass fraction] 94 % Nicolas Hwang MD Work Phone: [facility] 11-02-2021 12:50-0400 Systolic blood pressure 140 mm[Hg] Nicolas Hwang MD Work Phone: [facility] 09-27-2021 10:00-0400 Blood Pressure Location Yosef GRIMES [facility] 09-27-2021 10:00-0400 Diastolic blood pressure 79 mm[Hg] Yosef GRIMES [facility] 09-27-2021 10:00-0400 Heart rate 67 /min [facility]IM[facility] 09-27-2021 10:00-0400 Respiratory rate 16 /min [facility]osef GRIMES [facility] 09-27-2021 10:00-0400 Systolic blood pressure 114 mm[Hg] Yosef GRIMES [facility] 11-13-2020 13:45-0400 Body height 193.04 cm Azucena Ginty Other [employer] Other 11-13-2020 13:45-0400 Body mass index (BMI) [Ratio] 32.25 kg/m2 Azucena Ginty Other [employer] Other 11-13-2020 13:45-0400 Body temperature 96.4 [degF] Azucena Ginty Other [employer] Other 11-13-2020 13:45-0400 Body weight 120.2 kg Azucena Ginty Other [employer] Other 11-13-2020 [id number] SaO2% (BldA) [Mass fraction] 99 % Azucena Hui Other [employer] Other Encounters Encounter Date Encounter Type Care Provider Facility Start: 09-25-2025 ambulatory [facility]ilpa L Dominique [facility] Start: 11-15-2024 ambulatory Yosef R CORNELIO Rivasi ty:[facility] Start: 10-23-2024 ambulatory Ramila PonceDesiree Fabian Facility:[facility] Start: 10-23-2024 ambulatory Ramila M. Lue Facility:[facility] [id number] Start: 10-14-2024 ambulatory PHP WEBSITE DEVELOPER IFEANYIBrittani BETH Facility:[facility] Start: 09-26-2024 End: 09-26-2024 ambulatory Shilpa L Dominique Facility:[facility] Start: 06-04-2024 End: 06-04-2024 Office outpatient visit 15 minutes David Kumari MD Work Phone: Radiation Oncology Comment on above: Malignant neoplasm o f prostate (HCC) (Primary Dx) Start: 06-04-2024 End: 06-04-2024 ambulatory David KUMARI Facility:[facility] Start: 05-20-2024 End: 05-20-2024 Office outpatient visit 25 minutes Minoo Gill APRN.CNP Work Phone: Hematology/Oncology Comment on above: Monoclonal gammopath y (Primary Dx); Prostate cancer (HCC); Chronic renal insufficiency, stage 3 (moderate) (HCC) Start: 05-20-2024 End: 05-20-2024 ambulatory MINOO JAIRO Facility:[facility] Start: 05-16-2024 End: 05-29-2024 Telephone encounter Nicolas Hwang MD Work Phone: Cancer [facility] Start: 05-15-2024 End: 05-15-2024 ambulatory SHAHRIAR STEPHENSON Facility:[facility] Start: 05-07-2024 End: 05-07-2024 ambulatory SHAHRIAR STEPHENSON Facility:[facility] Start: 05-07-2024 End: 05-07-2024 Subsequent hospital visit by physician General Joseph Garcia Mc Work Phone: Radiology Start: 03-04-2024 End: 03-04-2024 ambulatory Yosef GRIMES Facility:[facility] Start: 03-04-2024 End: 03-04-2024 Patient encounter procedure Yosef GRIMES [facility] Man[facility] Start: 02-28-2024 End: 02-28-2024 ambulatory Yosef GRIMES Facility:[facility] Start: 02-28-2024 End: 02-28-2024 Patient encounter procedure Yosef GRIMES [facility] Jose Start: 02-22-2024 End: 02-22-2024 ambulatory Yosef Grimes [facility] Work Phone: Start: 02-22-2024 End: 02-22-2024 Departed Referred Yosef Grimes MD Work Phone: [facility] Start: 02-22-2024 End: 02-22-2024 ambulatory Yosef GRIMES Facility:[id number] Start: 01-30-2024 End: 01-30-2024 ambulatory Meño Bob Facility:[facility] Start: 01-30-2024 End: 01-30-2024 Patient encounter procedure Meño Bob [facility] Start: 01-26-2024 ambulatory Yosef GRIMES Facili ty:[facility] Start: 01-23-2024 End: 01-23-2024 ambulatory Meño Bob Facility:[facility] Start: 01-23-2024 End: 01-23-2024 Patient encounter procedure Meño Bob [facility] Start: 01-19-2024 End: 01-19-2024 ambulatory YOSEF GRIMES Facility:[facility] Start: 01-19-2024 End: 01-19-2024 Subsequent hospital visit by physician Arrival Time Radiology Work Phone: Radiology [facility] Start: 01-13-2024 Non-patient / Non-visit Mateusz Grimes MD Work Phone: [facility] Work Phone: Start: 01-10-2024 End: 01-10-2024 ambulatory Yosef GRIMES Facility:[facility] Start: 01-10-2024 End: 01-10-2024 Patient encounter procedure Yosef GRIMES [facility] Start: 01-08-2024 End: 01-08-2024 ambulatory Yosef GRIMES Facility:[facility] Start: 01-08-2024 End: 01-08-2024 Lab Drop off Yosef Alivia GRIMES [facility] Start: 01-08-2024 End: 01-08-2024 ambulatory Yosef Alivia GRIMES Facility:[facility] Start: 01-08-2024 End: 01-08-2024 Patient encounter procedure Yosef GRIMES [facility] Start: 01-01-2024 End: 01-01-2024 Lab Drop off Yosef Alivia GRIMES [facility] Start: 01-01-2024 End: 01-01-2024 ambulatory Yosef Alivia GRIMES Facility[place] Start: 01-01-2024 End: 01-01-2024 Patient encounter procedure Yosef GRIMES [facility] Start: 12-29-2023 End: 01-01-2024 Telephone encounter G Damien Kumari MD Work Phone: Radiation Oncology Comment on above: Hematuria Start: 11-24-2023 End: 11-24-2023 ambulatory Yosef GRIMES Facility:[facility] Start: 11-24-2023 End: 11-24-2023 Patient encounter procedure [facility] Start: 11-16-2023 End: 11-16-2023 ambulatory Nicolas Hwang MD Work Phone: Hematology/Oncology Comment on above: Prostate cancer (HCC ) (Primary Dx); Monoclonal gammopathy Start: 11-16-2023 End: 11-16-2023 Patient encounter procedure Nicolas Hwang MD Work Phone: Hematology/Oncology Comment on above: Malignant neoplasm o f prostate (HCC) (Primary Dx) Start: 11-09-2023 End: 11-09-2023 ambulatory SHAHRIAR STEPHENSON Facility:[facility] Start: 10-23-2023 End: 10-23-2023 ambulatory PSYCHIATRIST Shilpa L Dominique Facility:[facility] Start: 09-27-2023 End: 09-27-2023 ambulatory PSYCHIATRIST Shilpa L Dominique [facility] [place] Start: 05-22-2023 End: 05-22-2023 ambulatory Yosef GRIMES Facility:[facility] Start: 05-22-2023 End: 05-22-2023 Patient encounter procedure Yosef GRIMES [facility] Start: 05-18-2023 End: 05-18-2023 ambulatory Elio Payne APRN.CNP Work Phone: Hematology/Oncology Comment on above: Prostate cancer (HCC ) (Primary Dx); Monoclonal gammopathy; Chronic renal insufficiency, stage 3 (moderate) (HCC); Essential hypertension Start: 05-18-2023 End: 05-18-2023 Patient encounter procedure Elio Renny 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 Phone: [place] Comment on above: Malignant neoplasm o f prostate (HCC) (Primary Dx) Start: 05-10-2023 Telephone encounter Elio Ferrer jone 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 Phone: Hematology/Oncology Comment on above: Lab [...] Start: 01-16-2023 End: 01-16-2023 Refill Rose Mckeon [facility] Work Phone: Hematology/Oncology Comment on [...] encounter procedure Nicolas Hwang MD Work Phone: [employer] Start: 01-02-2023 End: 01-02-2023 Patient encounter procedure David Kumari MD Work Phone: Radiation Oncology Comment on above: Malignant neoplasm o f prostate (HCC) (Primary Dx) Start: 12-26-2022 End: 12-26-2022 Patient encounter procedure David Kumari MD Work Phone: Radiation Oncology Comment on above: Malignant neoplasm o f prostate (HCC) (Primary Dx) Start: 12-22-2022 End: 12-22-2022 Patient encounter procedure Lab/[facility] Work Phone: Radiation Oncology Comment on above: Malignant neoplasm o f prostate (HCC) Start: 12-19-2022 Telephone encounter David Kumari MD Work Phone: Cancer [facility] Comment on above: Appointment Confirma tion Start: [...] encounter procedure David Kumari MD Work Phone: [employer] Comment on above: Malignant neoplasm o f prostate (HCC) (Primary Dx) Start: 12-08-2022 Radiation Oncology Note David Kumrai MD Work Phone: Radiation Oncology Comment on above: Treatment Planning Start: 12-08-2022 End: 12-08-2022 Subsequent hospital visit by physician David Kumari MD Work Phone: Radiology Pet CT Start: 12-02-2022 End: 12-02-2022 Patient encounter procedure Yosef GRIMES [facility] Start: 12-01-2022 ambulatory Letty Jun RISK M[facility] Radia tion Oncology Comment on above: Patient Education Start: 11-28-2022 End: 11-28-2022 Subsequent hospital visit by physician Mri 6 Radio Main Q (I-Stat/1.5t/3t) Work Phone: MRI Q Comment on above: Malignant neoplasm o f prostate (HCC) [C61] Start: 11-22-2022 Patient encounter procedure Ccf Prov ider [facility] Department Start: 11-18-2022 End: 11-18-2022 Patient encounter procedure Yosef GRIMES [facility] Start: 11-15-2022 End: 11-15-2022 Patient encounter procedure David Kumari MD Work Phone: Radiation Oncology Comment on above: Malignant neoplasm o f prostate (HCC) (Primary Dx) Start: 11-01-2022 End: 11-01-2022 Lab Drop off Yosef GRIMES [facility] Start: 10-28-2022 End: 10-28-2022 Subsequent hospital visit by physician Arrival Time Radiology Work Phone: Radiology Pet CT Comment on above: Rising PSA following treatment for malignant neoplasm of prostate [R97.21] Start: 10-09-2022 Office outpatient vi sit 15 minutes Angelina Holder [facility] Start: 10-09-2022 End: 10-09-2022 ambulatory Angelina Holder Other [place] [employer] Other Start: 10-09-2022 End: 10-09-2022 Departed Referred CARISSA Holder Work Phone: [facility] [place] Work Phone: Start: 10-06-2022 Telephone encounter Nicolas schneider MD Work Phone: Cancer [facility] Comment on above: Nm Pet Request Start: 10-03-2022 End: 10-03-2022 Patient encounter procedure Yosef GRIMES [facility] Start: 06-02-2022 End: 06-02-2022 ambulatory Elio Payne APRN.PHP WEBSITE DEVELOPER Work Phone: Hematology/Oncology Comment on above: Monoclonal gammopath y (Primary Dx); Prostate cancer (HCC); Essential hypertension; Chronic renal insufficiency, stage 3 (moderate) (HCC) Start: 06-02-2022 End: 06-02-2022 Patient encounter procedure Elio Payne 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 Phone: [facility] Start: 11-08-2021 Telephone encounter Shima Hutchison Hematology/Oncology Comment on above: Results Start: 11-02-2021 End: 11-02-2021 ambulatory Nicolas Hwnag MD Work Phone: Hematology/Oncology Comment on above: Monoclonal gammopath y (Primary Dx) Start: 11-02-2021 End: 11-02-2021 Patient encounter procedure Nicolas Hwang MD Work Phone: [facility] Start: 10-21-2021 Telephone encounter Nicolas schneider MD Work Phone: Hematology/Oncology Comment on above: Lab Orders Start: 10-13-2021 End: 10-14-2021 ambulatory KAREN GABRIELA Facility:[facility] Start: 09-27-2021 End: 09-27-2021 Patient encounter procedure Yosef GRIMES [facility] Start: 09-14-2021 End: 09-15-[address] YOSEF GRIMES Facility:[facility] Start: 08-16-2021 End: 08-16-[address] GURMEET CHANEL Facility:[facility] Start: 08-02-2021 Telephone encounter Nicolas schneider MD Work Phone: Cancer [facility] Comment on above: Call Back 48 Hours [...] End: 10-18-2019 Patient encounter procedure External Provider [facility] Start: 10-18-2019 Results Only External Provider [...] above: Performed By: #### P SAD #### [facility] [address] [place], [place] [id number] Dr. Brenda Kline Start: 05-10-2021 Adult depression scr eening assessment Pretty Aparicio RN Start: 10-29-2020 Adult depression scr eening assessment Nicolas Hwang MD Work Phone: Start: 10-18-2019 EXTERNAL LAB External P sv[facility]ana Start: 01-07-2016 Radical retropubic prostatectomy with bilateral pelvic lymphadenectomy Yosef GRIMES Start: 11-03-2015 Transrectal biopsy o f prostate using ultrasound guidance Yosef GRIMES Start: 02-06-2015 Colonoscopy Yosef COLIN SAVAGE Start: 02-07-2012 End: 02-07-2012 Colonoscopy Nicolas Hwang MD Work Phone: Start: 02-07-2012 Colonoscopy Yosef SHAW JANETTE Plan of Treatment Date Care Activity Detail Author Start: 05-16-2027 Diabetes Screening Diabetes Screenin [facility] Start: 11-15-2026 [facility] Start: 05-17-2026 [facility] Start: 01-19-2026 [facility] Scre[facility] Start: 01-05-2026 Diabetes Screening Diabetes Screenin g [facility] Start: 12-08-2025 Diabetes Screening Diabetes Screenin [facility] Start: 06-02-2025 DIABETES SCREEN DIABETES SCREEN [facility] Start: 06-02-2025 Diabetes Screening Diabetes Screenin g [facility] Start: 11-13-2024 End: 11-13-2024 Follow-up encounter 11/13/2024 1:30 PM EDT Visit (SP) Office Hematology/Oncology [address] [place] [address] Minoo Gill APRN.PHP WEBSITE DEVELOPER [address] [place] [address] 6 month follow up with lab Hematology/Oncology Comment on above: 6 month follow up [facility] Start: 11-13-2024 End: 11-13-2024 Patient encounter procedure [facility] Comment on above: 6 month follow up wi lab Start: 11-12-2024 End: 02-11-2025 Prostate specific Ag [Mass/volume] in Serum or Plasma PROSTATE-SPECIFIC ANTIGEN DIAGNOSTIC Lab Routine Malignant neoplasm of prostate (HCC) Expected: 11/12/2024, Expires: 02/11/2025 [facility] Work Phone: Comment on above: Expected: 11/12/2024 , Expires: 02/11/2025 Start: 11-12-2024 End: 11-12-2024 Patient encounter procedure 11/12/2024 9:00 AM EDT Office Visit [facility] [address] [place] [address] 6 month follow up with lab [facility] Comment on above: 6 month follow up [facility] Start: 11-02-2024 DIABETES SCREEN DIABETES SCREEN [facility] Start: 10-24-2024 ambulatory Ambulatory Facility:[facility] Start: 06-04-2024 End: 06-04-2024 Patient encounter procedure 06/04/2024 3:00 PM EDT Office Visit Radiation Oncology [address] [place] [address] David Kumari MD [address] [place] [address] 6 month follow up Radiation Oncology Comment on above: 6 month follow up Start: 05-20-2024 ambulatory Ambulatory Facility:[facility] Start: 05-16-2024 End: 08-15-2024 Prostate specific Ag [Mass/volume] in Serum or Plasma PROSTATE-SPECIFIC ANTIGEN DIAGNOSTIC Lab Routine Malignant neoplasm of prostate (HCC) Expected: 05/16/2024 (Approximate), Expires: 08/15/2024 [facility] Work Phone: Comment on above: Expected: 05/16/2024 (Approximate), Expires: 08/15/2024 Start: 05-16-2024 End: 05-16-2024 Follow-up encounter 05/16/2024 11:40 AM EDT Visit (SP) Office Hematology/Oncology [address] [place] [address] Nicolas Hwang MD [address] [place] [address] 6 month follow up Hematology/Oncology Comment on above: 6 month follow up Start: 05-16-2024 End: 05-16-2024 Patient encounter procedure 05/16/2024 11:00 AM EDT Office Visit Radiation Oncology [address] [place] [address] David Kumari MD [address] [place] [address] Moved from 05/14 Radiation Oncology Comment on above: Moved from 05/14 Start: 05-14-2024 End: 05-14-2024 Follow-up encounter 05/14/2024 2:00 PM EDT Visit (SP) Office Hematology/Oncology [address] [place] [address] Nicolas Hwang MD [address] [place] [address] 6 month follow up Hematology/Oncology Comment on above: 6 month follow up Start: 05-14-2024 End: 05-14-2024 Patient encounter procedure 05/14/2024 1:00 PM EDT Office Visit Radiation Oncology [address] [place] [address] David Kumari MD [address] [place] [address] 6 month follow up Radiation Oncology Comment on above: 6 month follow up Start: 05-10-2024 DIABETES SCREEN DIABETES SCREEN [facility] Start: 05-07-2024 End: 05-07-2024 Patient encounter procedure 05/07/2024 1:00 PM EDT Office Visit [facility] [address] [place] [address] lab [facility] Comment on above: lab Start: 02-07-2024 Advance Directive Discussion Advance Directive Discussion [facility] Start: 11-17-2023 End: 02-16-2024 Prostate specific Ag [Mass/volume] in Serum or Plasma PROSTATE-SPECIFIC ANTIGEN DIAGNOSTIC Lab Routine Malignant neoplasm of prostate (HCC) Expected: 11/17/2023 (Approximate), Expires: 02/16/2024 [facility] Work Phone: Comment on above: Expected: 11/17/2023 (Approximate), Expires: 02/16/2024 Start: 11-16-2023 End: 11-16-2023 Follow-up encounter 11/16/2023 3:00 PM EDT Visit (SP) Office Hematology/Oncology [address] [place] [address] Nicolas Hwang MD [address] [place] [address] 6 month follow up lab Hematology/Oncology Comment on above: 6 month follow up la [facility] Start: 11-16-2023 End: 11-16-2023 Patient encounter procedure 11/16/2023 2:15 PM EDT Office Visit Radiation Oncology [address] [place] [address] David Kumari MD [address] [place] [address] Followup Radiation Oncology Comment on above: Followup Start: 11-16-2023 End: 02-15-2024 MONOCLONAL PROTEIN, SERUM (BLOOD) [facility] Comment on above: Expected: 11/16/2023 , Expires: 02/15/2024 Start: 11-16-2023 End: 02-15-2024 PROT ELECT SERUM WITH FAUSTINA AND INTERP [facility] Work Phone: Comment on above: Expected: 11/16/2023 , Expires: 02/15/2024 Start: 11-09-2023 End: 11-09-2023 Patient encounter procedure 11/09/2023 1:00 PM EDT Office Visit [facility] [address] [place] [address] [place] [address] Lab [facility] Comment on above: Lab Start: 10-30-2023 DIABETES SCREEN DIABETES SCREEN [facility] Start: 10-08-2023 Covid-19 Vaccine ( season) Covid-19 Vaccine () [facility] Start: 10-08-2023 Covid-19 Vaccine () Covid-19 Vaccine () [facility] Start: 10-08-2023 Influenza vaccination C [facility] Start: 06-16-2023 End: 09-15-2023 MONOCLONAL PROTEIN, SERUM (BLOOD) MONOCLONAL PROTEIN, SERUM (BLOOD) Lab Routine Prostate cancer (HCC) Monoclonal gammopathy Chronic renal insufficiency, stage 3 (moderate) (HCC) Essential hypertension Expected: 06/16/2023, Expires: 09/15/2023 [facility] Work Phone: Comment on above: Expected: 06/16/2023 , Expires: 09/15/2023 Start: 05-19-2023 End: 08-18-2023 CBC W Auto Differential panel - Blood COMPLETE BLOOD COUNT AND DIFFERENTIAL Lab Routine Prostate cancer (HCC) Monoclonal gammopathy Chronic renal insufficiency, stage 3 (moderate) (HCC) Essential hypertension Expected: 05/19/2023, Expires: 08/18/2023 [facility] Work Phone: Comment on above: Expected: 05/19/2023 , Expires: 08/18/2023 Start: 05-19-2023 End: 08-18-2023 Comprehensive metabolic 2000 panel - Serum or Plasma COMPREHENSIVE METABOLIC PANEL Lab Routine Prostate cancer (HCC) Monoclonal gammopathy Chronic renal insufficiency, stage 3 (moderate) (HCC) Essential hypertension Expected: 05/19/2023, Expires: 08/18/2023 [facility] Work Phone: Comment on above: Expected: 05/19/2023 , Expires: 08/18/2023 Start: 05-19-2023 End: 08-18-2023 Prostate specific Ag [Mass/volume] in Serum or Plasma PROSTATE-SPECIFIC ANTIGEN DIAGNOSTIC Lab Routine Prostate cancer (HCC) Monoclonal gammopathy Chronic renal insufficiency, stage 3 (moderate) (HCC) Essential hypertension Expected: 05/19/2023, Expires: 08/18/2023 [facility] Work Phone: Comment on above: Expected: 05/19/2023 , Expires: 08/18/2023 Start: 05-19-2023 End: 08-18-2023 PROTEIN ELECTROPHORESIS SERUM W/INTERP PROTEIN ELECTROPHORESIS SERUM W/INTERP Lab Routine Prostate cancer (HCC) Monoclonal gammopathy Chronic renal insufficiency, stage 3 (moderate) (HCC) Essential hypertension Expected: 05/19/2023, Expires: 08/18/2023 [facility] Work Phone: Comment on above: Expected: 05/19/2023 , Expires: 08/18/2023 Start: 05-18-2023 End: 08-17-2023 CBC W Auto Differential panel - Blood CBC + DIFF Lab Routine Prostate cancer (HCC) Monoclonal gammopathy Expected: 05/18/2023, Expires: 08/17/2023 [facility] Work Phone: Comment on above: Expected: 05/18/2023 , Expires: 08/17/2023 Start: 05-18-2023 End: 08-17-2023 Comprehensive metabolic 2000 panel - Serum or Plasma COMP METABOLIC PANEL Lab Routine Prostate cancer (HCC) Monoclonal gammopathy Expected: 05/18/2023, Expires: 08/17/2023 [facility] Work Phone: Comment on above: Expected: 05/18/2023 , Expires: 08/17/2023 Start: 05-18-2023 End: 08-17-2023 MONOCLONAL PROTEIN, SERUM (BLOOD) MONOCLONAL PROTEIN, SERUM (BLOOD) Lab Routine Prostate cancer (HCC) Monoclonal gammopathy Expected: 05/18/2023, Expires: 08/17/2023 [facility] Work Phone: Comment on above: Expected: 05/18/2023 , Expires: 08/17/2023 Start: 05-18-2023 End: 08-17-2023 Prostate specific Ag [Mass/volume] in Serum or Plasma PSA/PROSTSPECAG DIAG Lab Routine Prostate cancer (HCC) Monoclonal gammopathy Expected: 05/18/2023, Expires: 08/17/2023 [facility] Work Phone: Comment on above: Expected: 05/18/2023 , Expires: 08/17/2023 Start: 05-18-2023 End: 08-17-2023 PROTEIN ELECTROPHORESIS SERUM W/INTERP PROTEIN ELECTROPHORESIS SERUM W/INTERP Lab Routine Prostate cancer (HCC) Monoclonal gammopathy Expected: 05/18/2023, Expires: 08/17/2023 [facility] Work Phone: Comment on above: Expected: 05/18/2023 , Expires: 08/17/2023 Start: 02-06-2023 Advance Directive Discussion Advance Directive Discussion [facility] Start: 02-06-2023 Behavioral Health Screening Behavioral Health Screening [facility] Start: 01-05-2023 End: 04-06-2023 MONOCLONAL PROTEIN, SERUM (BLOOD) [facility] Work Phone: Comment on above: Expected: 01/05/2023 , Expires: 04/06/2023 Start: 01-05-2023 End: 04-06-2023 PROT ELECT SERUM WITH FAUSTINA AND INTERP [facility] Work Phone: Comment on above: Expected: 01/05/2023 , Expires: 04/06/2023 Start: 11-02-2022 End: 01-02-2023 CBC W Auto Differential panel - Blood CBC + DIFF Lab Routine Monoclonal gammopathy Prostate cancer (HCC) Essential hypertension Chronic renal insufficiency, stage 3 (moderate) (HCC) Expected: 11/02/2022, Expires: 01/02/2023 [facility] Work Phone: Comment on above: Expected: 11/02/2022 , Expires: 01/02/2023 Start: 11-02-2022 End: 01-02-2023 Comprehensive metabolic 2000 panel - Serum or Plasma COMP METABOLIC PANEL Lab Routine Monoclonal gammopathy Prostate cancer (HCC) Essential hypertension Chronic renal insufficiency, stage 3 (moderate) (HCC) Expected: 11/02/2022, Expires: 01/02/2023 [facility] Work Phone: Comment on above: Expected: 11/02/2022 , Expires: 01/02/2023 Start: 11-02-2022 End: 01-02-2023 MONOCLONAL PROTEIN, SERUM (BLOOD) MONOCLONAL PROTEIN, SERUM (BLOOD) Lab Routine Monoclonal gammopathy Prostate cancer (HCC) Essential hypertension Chronic renal insufficiency, stage 3 (moderate) (HCC) Expected: 11/02/2022, Expires: 01/02/2023 [facility] Work Phone: Comment on above: Expected: 11/02/2022 , Expires: 01/02/2023 Start: 11-02-2022 End: 01-02-2023 PROT ELECT SERUM WITH FAUSTINA AND INTERP PROT ELECT SERUM WITH FAUSTINA AND INTERP Lab Routine Monoclonal gammopathy Prostate cancer (HCC) Essential hypertension Chronic renal insufficiency, stage 3 (moderate) (HCC) Expected: 11/02/2022, Expires: 01/02/2023 [facility] Work Phone: Comment on above: Expected: 11/02/2022 , Expires: 01/02/2023 Start: 10-09-2022 Bacteria identified in Urine by Culture [facility] Start: 10-07-2022 Covid-19 Vaccine ( season) Covid-19 Vaccine ( season) [facility] Start: 10-07-2022 Influenza vaccination [facility] Start: 06-02-2022 End: 08-02-2022 CBC W Auto Differential panel - Blood CBC + DIFF Lab Routine Monoclonal gammopathy Expected: 06/02/2022, Expires: 08/02/2022 [facility] Work Phone: Comment on above: Expected: 06/02/2022 , Expires: 08/02/2022 Start: 06-02-2022 End: 08-02-2022 Comprehensive metabolic 2000 panel - Serum or Plasma COMP METABOLIC PANEL Lab Routine Monoclonal gammopathy Expected: 06/02/2022, Expires: 08/02/2022 [facility] Work Phone: Comment on above: Expected: 06/02/2022 , Expires: 08/02/2022 Start: 06-02-2022 End: 08-02-2022 MONOCLONAL PROTEIN, SERUM (BLOOD) MONOCLONAL PROTEIN, SERUM (BLOOD) Lab Routine Monoclonal gammopathy Expected: 06/02/2022, Expires: 08/02/2022 [facility] Work Phone: Comment on above: Expected: 06/02/2022 , Expires: 08/02/2022 Start: 06-02-2022 End: 08-02-2022 PROT ELECT SERUM WITH FAUSTINA AND INTERP PROT ELECT SERUM WITH FAUSTINA AND INTERP Lab Routine Monoclonal gammopathy Expected: 06/02/2022, Expires: 08/02/2022 [facility] Work Phone: Comment on above: Expected: 06/02/2022 , Expires: 08/02/2022 Start: 05-10-2022 Adult depression screening assessment DEPRESSION SCREENING [facility] Start: 02-06-2022 ADVANCE DIRECTIVE DISCUSSION ADVANCE DIRECTIVE DISCUSSION [facility] Start: 02-06-2022 DEPRESSION ASSESSMENT DEPRESSION ASS ESSMENT [facility] Start: 11-02-2021 End: 01-02-2022 CBC W Auto Differential panel - Blood CBC + DIFF Lab Routine Monoclonal gammopathy Expected: 11/02/2021, Expires: 01/02/2022 [facility] Work Phone: Comment on above: Expected: 11/02/2021 , Expires: 01/02/2022 Start: 11-02-2021 End: 01-02-2022 Comprehensive metabolic 2000 panel - Serum or Plasma COMP METABOLIC PANEL Lab Routine Monoclonal gammopathy Expected: 11/02/2021, Expires: 01/02/2022 [facility] Work Phone: Comment on above: Expected: 11/02/2021 , Expires: 01/02/2022 Start: 11-02-2021 End: 01-02-2022 PROT ELECT SERUM WITH FAUSTINA AND INTERP PROT ELECT SERUM WITH FAUSTINA AND INTERP Lab Routine Monoclonal gammopathy Expected: 11/02/2021, Expires: 01/02/2022 [facility] Work Phone: Comment on above: Expected: 11/02/2021 , Expires: 01/02/2022 Start: 10-29-2021 Adult depression screening assessment DEPRESSION SCREENING [facility] Start: 10-07-2021 Influenza vaccination C [facility] Start: 2021 RSV Vaccine (1 - 1-d ose 75+ series) RSV Vaccine (1 - 1-dose 75+ series) [facility] Start: 05-10-2021 End: 07-10-2021 CBC W Auto Differential panel - Blood CBC + DIFF Lab Routine Monoclonal gammopathy Prostate cancer (HCC) Expected: 05/10/2021, Expires: 07/10/2021 [facility] Work Phone: Comment on above: Expected: 05/10/2021 , Expires: 07/10/2021 Start: 02-06-2021 ADVANCE DIRECTIVE DISCUSSION ADVANCE DIRECTIVE DISCUSSION [facility] Start: 02-06-2021 DEPRESSION ASSESSMENT DEPRESSION ASS ESSMENT [facility] Start: 10-07-2020 Influenza vaccination INFLUENZA (#1) [facility] Start: 08-27-2020 COVID-19 VACCINE (3 - Booster) COVID-19 VACCINE (3 - Booster) [facility] Start: 05-25-2020 COVID-19 VACCINE (3 - Booster) COVID-19 VACCINE (3 - Booster) [facility] Start: 05-25-2020 COVID-19 VACCINE (3 - Mixed Product series) COVID-19 VACCINE (3 - Mixed Product series) [facility] Start: 10-08-2019 Influenza vaccination INFLUENZA (#1) [facility] Start: 02-06-2013 Colonoscopy COLONOSCOPY [facility] Start: 02-06-2013 COLORECTAL CANCER SCREENING COLORECTAL CANCER SCREENING [facility] Start: 09-03-2011 ADVANCE DIRECTIVE DISCUSSION ADVANCE DIRECTIVE DISCUSSION [facility] Start: 09-03-2011 Pneumococcal Vaccine : 50+ (1 of 1 - PCV) Pneumococcal Vaccine: 50+ (1 of 1 - PCV) [facility] Start: 09-03-2011 Pneumococcal Vaccine : 65+ (1 - PCV) Pneumococcal Vaccine: 65+ (1 - PCV) [facility] Start: 09-03-2011 Pneumococcal Vaccine : 65+ (1 of 1 - PCV) Pneumococcal Vaccine: 65+ (1 of 1 - PCV) [facility] Start: 07-28-2012 PNEUMOCOCCAL: 65+ (1 - PCV) PNEUMOCOCCAL: 65+ (1 - PCV) [facility] Start: 09-03-2011 PNEUMOVAX AGE 65 AND OVER WITH 5YR LOOKBACK (#1) PNEUMOVAX AGE 65 AND OVER WITH 5YR LOOKBACK (#1) [facility] Start: 2006 RSV Vaccine (1 - 1-d ose 60+ series) RSV Vaccine (1 - 1-dose 60+ series) [facility] Start: 1996 Pneumococcal Vaccine : 50+ (1 of 1 - PCV) Pneumococcal Vaccine: 50+ (1 of 1 - PCV) [facility] Start: 1996 SHINGRIX VACCINE (1 of 2) GOLDSMITH GRIX VACCINE (1 of 2) [facility] Start: 1996 Tuberculosis screening COLOREC AUBRIE CANCER SCREENING,SEE MODIFIER [facility] Start: 09-03-1991 COLOGUARD (FIT-DNA) COLOGUARD (FIT-D NA) [facility] Start: 09-03-[address] COLONOGRAPHY [facility] Start: 09-03-1991 DIABETES SCREEN DIABETES SCREEN [facility] Start: 09-03-1991 FECAL OCCULT BLOOD FECAL OCCULT BLOO D [facility] Start: 09-03-1991 SIGMOIDOSCOPY SIGMOIDOSCOPY [facility] Start: 1981 LIPID SCREEN LIPID SCREEN [facility] Start: 1965 Urine microalbumin profile [facility] Start: 1964 Anxiety Screening Anxiety Screening [facility] Start: 1964 Depression Screening Depression Scre ening [facility] Start: 1964 HEPATITIS C SCREENING HEPATITIS C [facility] Start: 1964 Hepatitis C screening Hepatitis C [facility] CT SIM PLANNING RADI ATION ONCOLOGY CT SIM PLANNING RADIATION ONCOLOGY Radiology Routine Malignant neoplasm of prostate (HCC) Ordered: 12/15/2022 [facility] Work Phone: Comment on above: Ordered: 12/15/2022 End: 12-15-2023 MRI PROSTATE WO/W IVCON MRI PROSTATE WO/W IVCON Radiology Routine Malignant neoplasm of prostate (HCC) 1 Occurrences starting 11/15/2022 until 12/15/2023 [facility] Work Phone: Comment on above: 1 Occurrences starti ng 11/15/2022 until 12/15/2023 [facility] Immunizations Immunization Date Immunization Notes Care Provider Fa cili 03-30-2020 COVID-19 vaccine (UNSPECIFIED) Nicolas Hwang MD Work Phone: [facility] 03-08-2020 COVID-19 vaccine (UNSPECIFIED) Nicolas Hwang MD Work Phone: [facility] NEGATED: Highlighted row has not occurred!10-23-2023 influenza virus vaccine, unspecified formulation Yosef CORNELIO [facility] [place] Payers Date Payer Category Payer Self-pay 2020 Medicare AETNA MEDICARE A ETNA MEDICARE PPO [id number] 2020-Present [phone] [address] [place] [address] PP [id number] 2020 Medicare AETNA MEDICARE A ETNA MEDICARE PPO [id number] 2020-Present [phone] [address] [place] [address] PP [id number] 2020 Medicare (Managed Care) [place] [id number] 2019 Medicare AETNA MEDICARE A ETNA MEDICARE PPO [id number] 2019-Present PPO [id number] 1959 Medicare [id number] 1945 Unknown [id number] 2.16.840.1.804208.3.579.2. 593 1945 Unknown [id number] 2.16.840.1.314768.3.579.2. 593 1945 Unknown [id number] 2.16.840.1.599809.3.579.2. 593 1946 Unknown [id number] 2.16.840.1.613803.3.579.2. 593 1946 Unknown [id number] 2.16.840.1.491188.3.579.2. 593 1946 Unknown [id number] 2.16.840.1.732883.3.579.2. 727 1945 Unknown [id number] 2.16.840.1.345784.3.579.2. 727 1946 Unknown [id number] 2.16.840.1.990648.3.579.2. 727 1946 Unknown [id number] 2.16.840.1.172866.3.579.2. 727 1946 Unknown [id number] 2.16.840.1.965198.3.579.2. 727 1946 Unknown [id number] 2.16.840.1.926755.3.579.2. 1946 Unknown [id number] 2.16.840.1.905499.3.579.2. 1945 Unknown [id number] 2.16.840.1.436453.3.579.2 1946 Unknown [id number] 2.16.840.1.400840.3.579.2. 1946 Unknown [id number] 2.16.840.1.616433.3.579.2 1946 Unknown [id number] 2.16.840.1.385427.3.579.2 1946 Unknown [id number] 2.16.840.1.306715.3.579.2 1946 Unknown [id number] 2.840.1.635630.3.579.2 1946 Unknown [id number] 2.16.840.1.787197.3.579.2 1946 Unknown [id number] 2.16.840.1.873867.3.579.2 1946 Unknown [id number] .16.840.1.028835.3.579.2 1946 Unknown [id number] .16840.1.642607.3.579.2 1946 Unknown [id number] .16.840.1.332288.3.579.2 1946 Unknown [id number] 2.16.840.1.605469.3.579.2 1946 Unknown [id number] 2.16.840.1.875754.3.579.2 1946 Unknown [id number] 2.16.840.1.474906.3.579.2 1946 Unknown [id number] 2.16.840.1.459804.3.579.2. 727 1946 Unknown [id number] 2.16.840.1.906953.3.579.2. 727 1945 Unknown [id number] 2.16.840.1.769318.3.579.2. 727 Medicare [id number] 2.16.840.1.687529.19 Unknown [id number] 2.16.840.1.733522.3.579.2. 531 Social History Date Type Detail Facility Tobacco smoking status MOIS Unknown if ever smoked [facility] Start: 1945 Sex Assigned At Not on file C [facility] Start: 10-22-2019 End: 11-02-2021 Tobacco smoking status MOIS Never smoked tobacco [facility] Comment on above: patient never a smok er denies use Start: 10-22-2019 End: 11-02-2021 Tobacco use and exposure Smokeless tobacco non-user [facility] Start: 10-29-2020 End: 06-04-2024 Alcohol intake Ex-drinker (finding) [facility] Start: 04-30-2021 End: 11-02-2021 Exposure to SARS-CoV-2 (event) Not sure [facility] Start: 06-02-2022 End: 11-15-2022 Sex Assigned At [facility] Other History of tobacco use Passive smoker [facility] Tobacco smoking status Never [facility] Comment on above: patient never a smok er denies use Start: 06-02-2022 End: 11-15-2022 History of Social function [facility] Start: 1945 Sex Assigned At Male [facility] Start: 02-24-2024 Sex Male (finding) [facility] Functional Status Date Assessment Result Facility 03-04-2024 Functional Status N/A [facility] 01-23-2024 Functional Status N/A [facility] 01-10-2024 Functional Status N/A [facility] 01-08-2024 Functional Status N/A [facility] 11-24-2023 Functional Status N/A [facility] 05-22-2023 Functional Status N/A [facility] 12-02-2022 Functional Status N/A [facility] 11-18-2022 Functional Status N/A [facility] 10-03-2022 Functional Status N/A [facility] 09-27-2021 N/A [facility] Clinical Notes 05-21-2019 to 06-04-2024 David Kumari MD - 06/04/2024 2:55 PM Letty Covarrubias RN - 06/04/2024 2:53 PM Minoo Byrne APRN.PHP WEBSITE DEVELOPER - 05/20/2024 2:00 PM Nancy Bowen, RT(R) - 05/07/2024 1:00 PM EDT Note Date & Type Note Facility 06-04-2024 Note HNO ID: [id number] Author: David KUMARI MD Service: ? Author [...] Kumari MD cc: Shahriar Stephenson [address] [place] [address] No referring provider defined for this encounter. [facility] 06-04-2024 History of Present illness Narrative Radiation Oncology - Follow Up Note PATIENT NAME: Adolph Johns PATIENT DIAGNOSIS: Prostate adenocarcinoma, initial PSA 7.5, biopsy Columbia score 4 + 3 = 7 (grade [...] by: David Kumari MD cc: Shahriar Stephenson [address] [place] [id number] No referring provider defined for this encounter. AUA= 7 documented in this encounter [facility] 06-04-2024 Note HNO ID: [id number] Author: LETTY BARAHONA RN Service: ? Author Type: Registered Nurse Type: Progress Notes Filed: 06/07/2024 10:34 Note Text: AUA= 7 [facility] 05-20-2024 History of Present illness Narrative [...] No difficulties with urination. Has returned from [place]! Labs stable. MEDICATIONS: abiraterone 250 mg tablet [...] or petechiae. 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 No comparison study. 10/28/2019 Skeletal survey ([facility]) Subtle oval slightly lytic-appearing lesion within the [...] management per PCP/nephrology. . Minoo Gill APRN, FITNESS ATTENDANT-C, [facility] Provided at: [place], [place] documented in this encounter [facility] 05-20-2024 Note HNO ID: [id number] Author: MINOO GILL APRN.PHP WEBSITE DEVELOPER Service: ? Author Type: Nurse Practitioner Type: [...] No difficulties with urination. Has returned from [place]! Labs stable. MEDICATIONS: abiraterone 250 mg tablet [...] or petechiae. 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 No comparison study. 10/28/2019 Skeletal survey ([facility]) Subtle oval slightly lytic-appearing lesion within the right femoral neck, nonspecific and may repr (more content not included)... [facility] 05-20-2024 Note Patient Education Oncology Hormone [...] cancer. Where to find more information ??? [place] [employer]: www.cancer.org ??? National Cancer [place]: www.cancer.gov Contact a health care provider if: [...] confused. ??? You (more content not included)... [facility] 05-07-2024 History of Present illness Narrative Radiology [...] PATIENT PRESENTS WITH AN IMPLANTABLE OR ATTACHED NEON PUMPER: No RADIOLOGY DEPARTMENT: General X-ray: Exam(s) Completed: Abdomen X-Ray: Abdomen PERIPHERAL IV DATA: Not applicable SIGNED BY: RT Jace(Alivia) May 07, 2024 1:20 PM documented in this encounter [facility] 05-07-2024 Note HNO ID: [id number] Author: NANCY SAENZ RT(Alivia) Service: ? Author Type: Technologist Type: Progress [...] PATIENT PRESENTS WITH AN IMPLANTABLE OR ATTACHED NEON PUMPER: No RADIOLOGY DEPARTMENT: General X-ray: Exam(s) Completed: Abdomen X-Ray: Abdomen PERIPHERAL IV DATA: Not applicable SIGNED BY: RT Jace(R) May 07, 2024 1:20 PM [facility] 03-04-2024 Hospital Discharge instructions Patient Education [...] including vitamins, herbs, eye drops, creams, and ivds-uam-fcindxr medicines. Any problems you or family members [...] provider tells you to take them. Taking wrjt-wql-jgcmsci medicines, vitamins, herbs, and supplements. Tests You [...] Follow these instructions at home: Medicines Take ajpa-qyd-rkyahdc and prescription medicines only as told by [...] provider. Document Revised: 10/06/2021 Document Reviewed: 09/04/2020 [employer] Patient Education 2023 [employer]. 03/04/2024 10:49:40 Prostate Cancer Screening Prostate Cancer [...] treatment? Where to find more information The [place] Cancer Society: www.cancer.org [place] [employer] Association: www.auanet.org Contact a health care [...] provider. Document Revised: 07/19/2021 Document Reviewed: 07/19/2021 [employer] Patient Education 2023 [employer]. Follow Up Care 02/27/2024 15:41:35 With:CORNELIO ROSARIO, Yosef Bunch, URL Address: [facility] [address], [place] [address]- [phone] When: Unknown Comments:Has f/u 05/20/24 w/ PSA and Barak, also to schedule cysto [facility] 03-04-2024 Note Patient Education Oncology Prostate Cancer [...] Where to find more information ??? The [place] Cancer [employer]: www.cancer.org ??? [place] [employer] Association: www.auanet.org Contact a health care [...] The prostate gland (more content not included)... [facility] 02-01-2024 Note Echocardiology Procedure Exam Date/Time Accession # Ordering Dr. Decker Transthoracic w/ 01/30/2024 11:56 EST [id number] Meño Rojas MD Contrast CPT code 31382 C8929 Reason for Exam (Echo Transthoracic w/ Contrast) Abnormal ECG, Chest pain R94.31;Other (please specify) Report [facility] [address] [place] [address] Adult Echocardiogram Report Name: ADOLPH JOHNS Study Date: 01/30/2024 10:54 AM BP: 137/84 mmHg Patient Location: [facility] Ambulatory(s) [facility] HR: 80 : 1945 Gender: Male Height: 76 in Age: 78 yrs Ethnicity: [facility] Weight: 262 lb Reason For Study: Abnormal [...] Reji Holloway MD Transcribed by: NETTE Technologist: [facility] 01-19-2024 History of Present illness Narrative [...] TO CHANGE TRACKING LOCATION MS BLAS 10/29/2020 1045 P.O.C.T. RESULTS: POC done: Yes, See Lab Tab January 19, 2024 TREATMENT: N/A IV SITE: Ambulatory: A peripheral IV was started in the Right hand with a Angio cath: 20 gauge. IV SITE APPEARANCE: Clean,Dry and Intact SIGNATURE: Blayne Mosqueda RN PATIENT NAME: Adolph Johns DATE: January 19, 2024 TIME: 8:37 AM documented in this encounter [facility] 01-19-2024 Note HNO ID: [id number] Author: BLAYNE MOSQUEDA RN Service: ? Author [...] TO CHANGE TRACKING LOCATION MS BLAS 10/29/2020 0635 P.O.C.T. RESULTS: POC done: Yes, See Lab Tab January 19, 2024 TREATMENT: N/A IV SITE: Ambulatory: A peripheral IV was started in the Right hand with a Angio cath: 20 gauge. IV SITE APPEARANCE: Clean,Dry and Intact SIGNATURE: Blayne Mosqueda RN PATIENT NAME: Adolph Johns DATE: January 19, 2024 TIME: 8:37 AM [facility] 01-10-2024 Hospital Discharge instructions Patient Education [...] Follow these instructions at home: Medicines Take otrp-joy-myrbtjx and prescription medicines only as told by [...] to keep your urine pale yellow. ?Take zafi-vlm-ncwaazt or prescription medicines. ?Eat foods that are [...] and pain in your lower abdomen. Take grtj-fac-csvhaxj and prescription medicines only as told by [...] provider. Document Revised: 01/28/2022 Document Reviewed: 01/28/2022 [employer] Patient Education 2023 [employer]. 01/10/2024 13:10:32 Transurethral Resection of Bladder Tumor [...] including vitamins, herbs, eye drops, creams, and lkpj-gxf-tclshjo medicines. Any problems you or family members [...] provider tells you to take them. Taking hwyg-wrg-zjtmgvb medicines, vitamins, herbs, and supplements. General instructions [...] provider. Document Revised: 01/28/2022 Document Reviewed: 01/28/2022 [employer] Patient Education 2023 [employer]. Follow Up Care 01/08/2024 10:29:10 With:CORNELIO ROSARIO, Yosef Bunch, URL Address: [facility] [address], [place] [address]- When: Unknown [facility] 01-10-2024 Note Patient Education Oncology Transurethral Resection [...] these instructions at home: Medicines ??? Take ykro-zty-fvpexuu and prescription medicines only as told by [...] keep your urine pale yellow. ? Take jtcu-lhz-znsihqx or prescription medicines. ? Eat foods that [...] pain in your lower abdomen. ??? Take thbz-pou-otdxlek and prescription medicines only as told by [...] your drainage bag. (more content not included)... [facility] 01-08-2024 Hospital Discharge instructions Patient Education 01/08/2024 [...] including vitamins, herbs, eye drops, creams, and bqqh-mlr-opsrcfs medicines. Any problems you or family members [...] provider tells you to take them. Taking tico-lrg-bgmtire medicines, vitamins, herbs, and supplements. Tests You [...] Follow these instructions at home: Medicines Take ayyp-huc-evkmffj and prescription medicines only as told by [...] provider. Document Revised: 10/06/2021 Document Reviewed: 09/04/2020 [employer] Patient Education 2023 [employer]. 01/08/2024 10:14:09 Hematuria, Adult Hematuria, Adult Hematuria [...] Follow these instructions at home: Medicines Take wmwp-vac-pjfrchu and prescription medicines only as told by [...] or the blood stops without treatment. Take bmhs-hyp-pzpjzqi and prescription medicines only as told by your health care provider. Drink enough fluid to keep your urine pale yellow. This information is not intended to replace advice given to you by your health care provider. Make sure you discuss any questions you have with your health care provider. Document Revised: 09/23/2020 Document Reviewed: 09/23/2020 [employer] Patient Education 2023 [employer]. Follow Up Care 01/01/2024 08:46:40 With:CORNELIO ROSARIO, Yosef Bunch, URL Address: [facility] [address] [place] [address]- [phone] When: Unknown [facility] 01-08-2024 Note Patient Education Urology Cystoscopy Cystoscopy [...] including vitamins, herbs, eye drops, creams, and vrtj-psi-edkkyss medicines. ??? Any problems you or family [...] tells you to take them. ??? Taking gpua-khs-bauodsd medicines, vitamins, herbs, and supplements. Tests You [...] these instructions at home: Medicines ??? Take wino-fqc-jzndvkf and prescription medicines only as told by [...] (biopsy) during your (more content not included)... [facility] 01-01-2024 Telephone encounter Note Pt returned call and was notified. Peggy Lakhani RN [facility] 01-01-2024 Miscellaneous Notes Pt returned call and was notified. Pegyg Lakhani RN I left a message for [...] Letty Barahona RN documented in this encounter [facility] 01-01-2024 Telephone encounter Note I left a message for Adolph to call the office. Letty Barahona RN [facility] 12-29-2023 Telephone encounter Note Attempted to call patient with Dr. Kumari's recommendation but there was no answer. Letty Barahona RN [facility] 12-29-2023 Telephone encounter Note Adolph [...] CT scans. Please advise. Letty Barahona RN [facility] 11-24-2023 Hospital Discharge instructions Patient [...] similar to normal prostate cells (well differentiated). Columbia 7: This indicates that the cancer cells look somewhat similar to normal prostate cells (moderately differentiated). Columbia 8, 9, or 10: This indicates that [...] stress of having cancer. General instructions Take vwdd-ysg-tobuoqd and prescription medicines only as told by your health care provider. If you have to go to the hospital, notify your cancer specialist (oncologist). Keep all follow-up visits. This is important. Where to find more information [place] Cancer Society: www.cancer.org [place] Society of Clinical Oncology: www.cancer.net National Cancer [place]: www.cancer.gov Contact a health care provider if: [...] provider. Document Revised: 04/21/2021 Document Reviewed: 04/21/2021 [employer] Patient Education 2023 [employer]. Follow Up Care 05/22/2023 12:03:30 With:CORNELIO ROSARIO, Yosef Bunch, URL Address: [address] [place] [address]- When: Unknown [facility] Manoj 11-24-2023 Note Patient Education Oncology Prostate Cancer [...] to normal prostate cells (moderately differentiated). ? Columbia 8, 9, or 10: This indicates that [...] the prostate gla (more content not included)... [facility] 11-16-2023 History of Present illness Narrative Radiation [...] ASSESSMENT/PLAN: Prostate adenocarcinoma, initial PSA 7.5, biopsy Columbia score 4 + 3 = 7 (grade [...] by: David Kumari MD cc: Shahriar Stephenson [address] [place] [address] No referring provider defined for this encounter. documented in this encounter [facility] 11-16-2023 Note HNO ID: [id number] Author: David KUMARI MD Service: ? Author Type: Physician Type: Progress Notes Filed: 11/24/2023 14:26 Note Text: Radiation Oncology - Follow Up Note PATIENT NAME: Adolph Johns PATIENT DIAGNOSIS: Prostate adenocarcinoma, initial PSA 7.5, biopsy Columbia score 4 + 3 = 7 (grade [...] by: David Kumari MD cc: Shahriar Stephenson [address] [place] [phone] No referring provider defined for this encounter. [facility] 11-16-2023 Nurse Note JACK Lakhani RN [facility] 11-16-2023 Nurse Note JACK Lakhani RN documented in this encounter [facility] 11-15-2023 Note HNO ID: [id number] Author: NICOLAS HWANG MD Service: ? Author Type: Physician Type: Progress Notes Filed: 11/16/2023 21:31 Note Text: PATIENT NAME: Adolph Johns DATE: 11/16/2023 PRIMARY CARE PHYSICIAN: Dr. René Stephenson OTHER PHYSICIANS: Dr. Griems, Dr. Kumari Portions of this encounter note [...] with urination. He plans to travel to [place] next week where he plans to spend [...] or petechiae. 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 No comparison study. 10/28/2019 Skeletal survey ([facility]) Subtle oval slightly lytic-appearing lesion within the right femoral neck, nonspecific and may represent summation ar (more content not included)... [facility] 11-15-2023 History of Present illness Narrative [...] with urination. He plans to travel to [place] next week where he plans to spend [...] or petechiae. 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 No comparison study. 10/28/2019 Skeletal survey ([facility]) Subtle oval slightly lytic-appearing lesion within the [...] in May 2024 after he returns from [place] to [place]. 2. Monoclonal gammopathy - ICD9: [...] Nicolas Hwang MD documented in this encounter [facility] 10-23-2023 Note Patient Education Nutrition BMI [...] for Disease Control and Prevention: cdc.gov ? [place] Heart Association: heart.org ? National Heart, Lung, and Blood [place]: nhlbi.nih.gov This information is not intended to replace advice given to you by your health care provider. Make sure you discuss any questions you have with your health care provider. Document Revised: 10/13/2022 Document Reviewed: 10/06/2022 [employer] Patient Education ? 2023 [employer] DASH Eating Plan DASH stands for [...] vegetables each day (more content not included)... [facility] 05-22-2023 Hospital Discharge instructions Patient Education 05/22/2023 [...] advanced cancer. Where to find more information [place] Cancer Society: www.cancer.org National Cancer [place]: www.cancer.gov Contact a health care provider if: [...] provider. Document Revised: 05/06/2021 Document Reviewed: 05/06/2021 [employer] Patient Education 2022 [employer]. Follow Up Care 12/02/2022 13:08:27 With:CORNELIO ROSARIO, Yosef Bunch, URL Address: [facility] [address] [place] [address]- [phone] When: Unknown Comments:6 mos w/ PSA (gets level from [facility]) [facility] 05-18-2023 History of Present illness Narrative Radiation Oncology - Follow Up Note PATIENT NAME: Adolph Johns PATIENT DIAGNOSIS: Prostate adenocarcinoma, initial PSA 7.5, biopsy Columbia score 4 + 3 = 7 (grade [...] by: David Kumari MD cc: Shahriar Stephenson [address] [place] [address] No referring provider defined for this encounter. documented in this encounter [facility] 05-18-2023 Nurse Note AUA 5 Peggy Lakhani RN documented in this encounter [facility] 05-18-2023 History of Present illness Narrative [...] or petechiae. 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 No comparison study. 10/28/2019 Skeletal survey ([facility]) Subtle oval slightly lytic-appearing lesion within the [...] stage 3 (moderate) Continue management per PCP/nephrology. lEio Payne APRN.PHP WEBSITE DEVELOPER CC: Dr. Cook, Dr. Grimes I spent a total of 30 minutes on the date of the service which included preparing to see the patient, ltij-oi-oakc patient care, completing clinical documentation, obtaining and/or reviewing separately obtained history, performing a medically appropriate examination, counseling and educating the patient/family/caregiver, ordering medications, tests, or procedures, independently interpreting results (not separately reported), and communicating results to the patient/family/caregiver. documented in this encounter [facility] 05-08-2023 Miscellaneous Notes Patient coming in 05/18/23 for follow up with labs. Please add lab orders. Bettina El MA documented in this encounter [facility] 01-26-2023 History of Present illness Narrative Boost set up films reviewed documented in this encounter [facility] 01-17-2023 History of Present illness Narrative Boost reese reviewed. documented in this encounter [facility] 01-16-2023 History of Present illness Narrative [...] David Kumari MD documented in this encounter [facility] 01-11-2023 History of Present illness Narrative ADOLPH JOHNS [id number] 01/11/2023 [facility] Department of Radiation Oncology Treatment Planning [...] distribution, and/or ports and DVH. Electronically Signed aDmien Kumari M.D. 31:35 PM documented in this encounter [facility] 01-09-2023 Miscellaneous Notes I notified Adolph [...] Letty Barahona RN documented in this encounter [facility] 01-06-2023 Miscellaneous Notes The following approved medication requests have been transmitted electronically. Requested Prescriptions Signed Prescriptions Disp Refills potassium chloride (K-TAB) 10 mEq tablet 30 tablet 3 Sig: Take 1 tablet by mouth once daily. Authorizing Provider: ELIO PAYNE APRN.PHP WEBSITE DEVELOPER Mr. Johns notified of low potassium and recommendation to start potassium supplement. Patient in agreement and states that she has started a potassium rich diet. Pt would like script sent to [facility]. Morgan: Please review and sign pending order. Thanks! Jessica Amezquita RN ----- Message from Nicolas Hwang MD sent at 01/06/2023 7:58 AM EST ----- Please inform the patient that his potassium is slightly low. Possibly from his Zestoretic or abiraterone/prednisone. Would recommend potassium supplement with 10 mEq 1 daily. documented in this encounter [facility] 01-05-2023 History of Present illness Narrative [...] visit his bladder biopsy was reviewed by [facility] pathology, and the diagnosis of [...] or petechiae. 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 No comparison study. 10/28/2019 Skeletal survey ([facility]) Subtle oval slightly lytic-appearing lesion within the [...] patient plans to spend the winter in [place] after radiation is completed. I will see [...] Cook, Dr. Grimes documented in this encounter [facility] 01-02-2023 History of Present illness Narrative Radiation Oncology - On Treatment Review (OTR) Note PATIENT NAME: Adolph Johns PATIENT DIAGNOSIS: Prostate adenocarcinoma, initial PSA 7.5, biopsy Columbia score 4 + 3 = 7 (grade [...] David Kumari MD documented in this encounter [facility] 12-26-2022 History of Present illness Narrative Radiation Oncology - On Treatment Review (OTR) Note PATIENT NAME: Adolph Johns PATIENT DIAGNOSIS: Prostate adenocarcinoma, initial PSA 7.5, biopsy Columbia score 4 + 3 = 7 (grade [...] David Kumari MD documented in this encounter [facility] 12-22-2022 Nurse Note Adolph Johns presents in office today for: Lab Draw only . Ordering Provider: Damien Kumari M.D. Test (s) ordered: CBC Method for obtaining blood: Phlebotomy was performed, accessing left antecubital vein. Needle removed intact. Dressing secured. Patient denies discomfort, dizziness, light-headedness or weakness and left the department without assist. Letty Barahona LPN documented in this encounter [facility] 12-19-2022 Miscellaneous Notes Patient is scheduled for 12/21/2022 at 10:30AM with Dr Leila Evans at [facility]. I called and let him know appt day and time. documented in this encounter [facility] 12-19-2022 History of Present illness Narrative Radiation Oncology - On Treatment Review (OTR) Note PATIENT NAME: Adolph Johns PATIENT DIAGNOSIS: Prostate adenocarcinoma, initial PSA 7.5, biopsy Columbia score 4 + 3 = 7 (grade [...] lesion unrelated we will have him see fire investigation lieutenant. Chart and imaging reviewed. Continue radiation as outlined. David Kumari MD documented in this encounter [facility] 12-15-2022 Miscellaneous Notes ORAL ANTI-CANCER AGENTS [...] Nancy Ray RN documented in this encounter [facility] 12-14-2022 History of Present illness Narrative [...] David Kumari MD documented in this encounter [facility] 12-08-2022 History of Present illness Narrative ADOLPH JOHNS [id number] 12/08/2022 [facility] Department of Radiation Oncology Treatment Planning [...] M.D. 33:30 PM documented in this encounter [facility] 12-02-2022 Hospital Discharge instructions Patient Education [...] under a microscope. This is called the Columbia score and the total score can range from 6 10, indicating how likely it is that the cancer will spread (metastasize) to other parts of the body. The higher the score, the greater the likelihood that the cancer will spread. Columbia 6 or lower: This indicates that the cancer cells look similar to normal prostate cells (well differentiated). Columbia 7: This indicates that the cancer cells look somewhat similar to normal prostate cells (moderately differentiated). Columbia 8, 9, or 10: This indicates that [...] stress of having cancer. General instructions Take ausf-vgu-tyixbee and prescription medicines only as told by your health care provider. If you have to go to the hospital, notify your cancer specialist (oncologist). Keep all follow-up visits. This is important. Where to find more information [place] [employer]: www.cancer.org [place] Society [employer] Clinical Oncology: www.cancer.net National Cancer [place]: www.cancer.gov Contact a health care provider if: [...] provider. Document Revised: 04/21/2021 Document Reviewed: 04/21/2021 [email or web address] Patient Education 2022 [employer]. Follow Up Care 11/28/2022 15:36:16 With:CORNELIO ROSARIO, Yosef Bunch, URL Address: [address] [place] [id number]- When: Unknown [facility] [place] 12-01-2022 Nurse Note Radiation Therapy - Patient Education Note PATIENT NAME: Adolph Johns PATIENT December 01, 2022 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 Was approved? No Signed by: Letty Barahona LPN documented in this encounter [facility] 11-28-2022 History of Present illness Narrative [...] Intact, Site disposition Discontinued SIGNED BY: RT Aravind(Alivia) November 28, 2022 12:01 PM documented in this encounter [facility] 11-18-2022 Hospital Discharge instructions Patient Education [...] under a microscope. This is called the Columbia score and the total score can range from 6 10, indicating how likely it is that the cancer will spread (metastasize) to other parts of the body. The higher the score, the greater the likelihood that the cancer will spread. Coreen 6 or lower: This indicates that the cancer cells look similar to normal prostate cells (well differentiated). Columbia 7: This indicates that the cancer cells look somewhat similar to normal prostate cells (moderately differentiated). Columbia 8, 9, or 10: This indicates that [...] stress of having cancer. General instructions Take owcl-mbx-fyemhzw and prescription medicines only as told by your health care provider. If you have to go to the hospital, notify your cancer specialist (oncologist). Keep all follow-up visits. This is important. Where to find more information [place] [employer]: www.cancer.org [place] Society of Clinical Oncology: www.cancer.net National Cancer [place]: www.cancer.gov Contact a health care provider if: [...] provider. Document Revised: 04/21/2021 Document Reviewed: 04/21/2021 Elsevier Patient Education 2022 [employer]. Follow Up Care 11/01/2022 16:31:02 With:CORNELIO ROSARIO, Yosef Bunch, URL Address: [facility] [address] [place] [phone] When: Unknown [facility] [place] 11-15-2022 History of Present illness Narrative Radiation Oncology - Prostate Cancer New Patient/Consult Note PATIENT NAME: Adolph Johns PATIENT REQUESTING PROVIDER: Dr. Grimes DIAGNOSIS: 77 year old male with prostate adenocarcinoma, initial PSA 7.5, biopsy Columbia score 4 + 3 = 7 (grade [...] an elevated PSA of 7.5, biopsy showing Columbia 7 (4+3) adenocarcinoma. No evidence of metastasis on staging. He underwent nerve sparing radical retropubic prostatectomy and bilateral pelvic lymphadenectomy on 01/07/2016. Pathology revealed adenocarcinoma, Coreen 8 (4+4), no evidence of extraprostatic extension, no seminal vesicle invasion, margins uninvolved, perineural invasion was seen, 2 regional lymph nodes removed without evidence of metastasis.[id number] Post prostatectomy PSA undetectable. However PSA has [...] Kumari MD cc: Shahriar Stephenson [address] [place] [address] Yosef Grimes [address] [place] [address] documented in this encounter [facility] 10-28-2022 History of Present illness Narrative [...] safety can be found using this link: [email or web address] [email or web address]-%20Diagnostic%20Nuclear %20Medicine%[email or web address] SIGNATURE: RT Jace(R) PATIENT NAME: Adolph Johns DATE: October 28, 2022 TIME: 1:51 PM PAGER/CONTACT #: documented in this encounter [facility] 10-09-2022 Evaluation note Encounter Date Diagnosis [...] Patient states he did [address] qinf-wbi-dlvk ter test that were positive for nitrites. Patient appears nontoxic and will be treated for UTI according to his symptoms. Stressed the need for the patient to go to the ER for any worsening fevers, vomiting, abdominal pain, back pain. Patient agrees with this plan. [employer] Other 09-01-2023 Miscellaneous Notes* Telephone Encounter - Brook Ambrosio - 10/07/2022 11:51 AM EDT Patient has been scheduled. Brook Ambrosio * Telephone Encounter - Diana Romero RN - 10/06/2022 1:18 PM EDT PET/Ct Prostate auth approved [id number] from 10-04-22 to 04-02-23 for 1 dos * Telephone Encounter - Diana Romero RN - 10/06/2022 1:01 PM EDT Authorization number: PSMA [id number] Authorization date range: PSMA from 10-04-22 to 04-02-23 for 1 dos Primary Insurance: [facility] Medicare [id number] Diagnosis: Rising PSA after Prostate cancer treatment R97.21 DX Imaging: N/A Pathology: Prostatectomy Labs: 09-26-22 PSA 2.05 8-- PSA <0.13 10-05- PSA 0.05 Clinical Notes Reviewed: [facility] Gavino Grant Date of last: Prostatectomy Additional Information: N/A Radiologist Reviewed: N/A Initial/Subsequent: Subsequent Treatment Strategy: 0093 PET Protocol: PSMA Diagnostic Imaging Requested: No Is this a Pretreatment and/or an initial Pet scan: No - Schedule as requested Comments for Cosmetic Surgeon: N/A ROUTE TO SCHEDULERS POOL P PET RISK CONTROL PRODUCT LIABILITY DIRECTOR MC or P NM SPECIAL STUDIES MC * Telephone Encounter - Melodie Auguste - 10/06/2022 11:10 AM EDT This form is used for MAIN CAMPUS APPOINTMENTS ONLY. Is this request for a [place] PET scan appointment? Yes: Wool Sampler: Melodie Ladd Requesting Person Dr landers (external order scanned in along with auth) Name): Area Code + Phone/Pager: [phone] Who do we call to schedule this appointment? PSMA please route to Lucila saenz in [place] (external orders) Requesting Staff Dr grimes Area Code + Phone/Pager: [phone] PET Orders (A delay in scheduling will result if the orders are not present at time of review): External. Has the External Clinical Order been scanned into [employer]? Yes ADDITIONAL ACTION MAY BE REQUIRED IF [...] P COORD REVIEW MC [facility] Discharge instructions Patient Education 10/03/2022 [...] including vitamins, herbs, eye drops, creams, and joak-ayt-tlicrdq medicines. Any problems you or family members [...] provider tells you to take them. Taking eejh-shh-umxdpvf medicines, vitamins, herbs, and supplements. Tests You [...] Follow these instructions at home: Medicines Take rbah-hxm-uxaaszd and prescription medicines only as told by [...] provider. Document Revised: 10/06/2021 Document Reviewed: 09/04/2020 BigFix Patient Education 2022 [employer]. 10/03/2022 15:02:31 Hematuria, Adult Hematuria, Adult Hematuria [...] Follow these instructions at home: Medicines Take hdpu-hdu-ozxxpce and prescription medicines only as told by [...] or the blood stops without treatment. Take odgs-ycm-xklsakq and prescription medicines only as told by your health care provider. Drink enough fluid to keep your urine pale yellow. This information is not intended to replace advice given to you by your health care provider. Make sure you discuss any questions you have with your health care provider. Document Revised: 09/23/2020 Document Reviewed: 09/23/2020 BigFix Patient Education 2022 [employer]. Follow Up Care 09/27/2021 10:53:03 With:CORNELIO ROSARIO, Yosef R, URL Address: [facility] [address], [place] [facility] [place] [address]- [phone] When: Unknown Comments:sched cysto and PSMA PET scan [facility] 04-27-2023 History of Present illness Narrative* Elio Payne APRN.PHP WEBSITE DEVELOPER - 06/02/2022 2:06 PM EDT PATIENT NAME: [...] today. He spent the winter months in [place]. MEDICATIONS: lisinopril-hydrochlorothiazide (PRINZIDE,ZESTORETIC) 10-12.5 mg per tablet [...] lesion. No comparison study. 10/28/2019 Skeletal survey ([facility]) Subtle oval slightly lytic-appearing lesion within the [...] (moderate) Continue management per PCP/nephrology. Elio Payne APRN.PHP WEBSITE DEVELOPER CC: Dr. Gabriela Nesbitt spent a total of 20 minutes on the date of the service which included preparing to see the patient, xpiv-pq-ecrt patient care, completing clinical documentation, obtaining and/or reviewing separately obtained history, performing a medically appropriate examination, counseling and educating the pat ient/family/caregiver, ordering medications, tests, or procedures, independently interpreting results (not separately reported), and communicating results to the patient/family/caregiver. [facility] Miscellaneous Notes* Telephone Encounter - Shima [...] back as scheduled. Thanks, [facility] History of Present illness Narrative* Nicolas [...] involvinghis right groin area. FNA obtained 08/16/2021 ([facility]) revealed changes suggestive of fatnecrosis and granulomatous [...] lesion. No comparison study. 10/28/2019 Skeletal survey ([facility]) Subtle oval slightly lytic-appearing lesion within the [...] in 7 months (after he returns from [place]). We will then see him every 6 [...] MD CC: Dr. Cook [facility] Hospital Discharge instructions Patient Education 09/27/2021 [...] including vitamins, herbs, eye drops, creams, and feol-jvt-izwzvfm medicines. This also includes: ?Medicines to assist [...] 02/25/2005 Document Revised: 01/05/2018 Document Reviewed: 10/30/2017 BigFix Patient Education 2020 [employer] 09/27/2021 10:40:10 Calorie Counting for Weight [...] 01/23/2006 Document Revised: 10/12/2018 Document Reviewed: 12/23/2016 BigFix Patient Education 2020 [employer]. Follow Up Care 10/22/2020 15:01:04 With:CORNELIO ROSARIO, Yosef Bunch, URL Address: [address] [place] [address] [place] [address]- Business (1) When:Within 1 Year(s) Comments:w/PSA [facility] 06-27-2022 Miscellaneous Notes* Telephone Encounter - Nicolas Hwang MD - 08/02/2021 5:00 PM EDT The patient was found to have a cystic mass in his groin. He will undergo an ultrasound-guided biopsy at [place]. Dr. Chanel will inform me of the results. If benign I will see him back in Octoberas scheduled. If malignant I will see him after the biopsy to discuss further work-up and treatment. Thanks, BRKris * Telephone Encounter - Melodie Patel Sec - 08/02/2021 1:42 PM EDT Please call Dr Darío burns Adolph Phone number is [phone] thanks! [facility] Miscellaneous Notes* Telephone Encounter - Pretty [...] as planned. GABI El documented in [facility] encounter[facility] Miscellaneous Notes* Telephone Encounter - Pretty [...] as planned. GABI El documented [facility] Miscellaneous Notes* Telephone Encounter - Bettina Sargent - 10/21/2021 1:38 PM EDT Patient scheduled to see you on Monday11/02/21 for follow up with labs. Please add lab orders. Thanks. Bettina Sargent MA [facility] Evaluation note* Encounter Date Diagnosis Assessment [...] Patient care instructions given in writting by [facility] document. [employer] Other 04-14-2020 Evaluation + Plan note Future Appointments Appointment Date:01/30/2024 11:00:00 AM Scheduled Provider: [facility]oint[facility] Type:CV Echo () Appointment Date:05/20/2024 12:45:00 PM Scheduled Provider:Yosef GRIMES MD Location:[facility] Appointment Type:URO Office Visit Appointment Date:10/24/2024 11:00:00 AM Scheduled Provider: Location:[facility] Appointment Type:FM Medicare Wellness Subsequent Future Scheduled Tests Radiology* Echo Transthoracic Complete 01/30/24 [facility] Evaluation + Plan note Future Appointments Appointment Date:09/26/2022 10:15:00 AM Scheduled Provider:Yosef GRIMES MD Location:[facility] Appointment Type:URO Office Visit Diagnostic Tests Pending * PSA Total 09/27/21 [facility] evaluation + Plan note Future Appointments Appointment Date:10/11/2022 01:00:00 PM Scheduled Provider: Location:[facility] Appointment Type: Medicare Wellness Subsequent [facility] evaluation + Plan note Future Appointments Appointment Date:11/18/2022 11:00:00 AM Scheduled Provider:Yosef GRIMES MD [facility] Appointment Type:URO Office Visit Appointment Date:10/13/2023 01:00:00 PM Scheduled Provider: Location:[facility] Appointment Type: Medicare Wellness Subsequent Diagnostic Tests Pending * UroVysion Fish and Urine Cyto ([facility]) 11[facility]01/22 [facility] Future Appointments Appointment Date:10/13/2023 01:00:00 PM Scheduled Provider: Location:[facility] Appointment Type:FM Medicare Wellness Subsequent [facility] evaluation + Plan note Future Appointments Appointment Date:05/22/2023 11:15:00 AM Scheduled Provider:Yosef GRIMES MD Location:[facility] Appointment Type:URO Office Visit Appointment Date:10/13/2023 01:00:00 PM Scheduled Provider: Location:[facility] Appointment Type: Medicare Wellness Subsequent Diagnostic Tests Pending * PSA Total 04/07/23 [facility] evaluation + Plan note Future Appointments Appointment Date:10/23/2023 01:00:00 PM Scheduled Provider: Location:[facility] Appointment Type: Medicare Wellness Subsequent Appointment Date:11/24/2023 11:00:00 AM Scheduled Provider:Yosef GRIMES MD Location:[facility] Appointment Type:URO Office Visit [facility] evaluation + Plan note Future Appointments Appointment Date:05/20/2024 12:45:00 PM Scheduled Provider:Yosef GRIMES MD Location:[facility] Appointment Type:URO Office Visit Appointment Date:10/24/2024 11:00:00 AM Scheduled Provider: Location:[facility] Appointment Type: Medicare Wellness Subsequent Diagnostic Tests Pending * PSA Total 03/09/24 [facility] evaluation + Plan note Future Appointments Appointment Date:01/08/2024 09:00:00 AM Scheduled Provider:Yosef GRIMES MD Location:[facility] Appointment Type:URO Office Visit Appointment Date:05/20/2024 12:45:00 PM Scheduled Provider:Yosef GRIMES MD [facility] Appointment Type:URO Office Visit Appointment Date:10/24/2024 11:00:00 AM Scheduled Provider: Location:[facility] Appointment Type: Medicare Wellness Subsequent [facility] evaluation + Plan note Future Appointments Appointment Date:01/08/2024 09:00:00 AM Scheduled Provider:Yosef GRIMES MD Location:[facility] Appointment Type:URO Office Visit Appointment Date:05/20/2024 12:45:00 PM Scheduled Provider:Yosef GRIMES MD Location:[facility] Appointment Type:URO Office Visit Appointment Date:10/24/2024 11:00:00 AM Scheduled Provider: Location:[facility] Appointment Type: Medicare Wellness Subsequent Diagnostic Tests Pending * Urine Culture 01/01/24 [facility] evaluation + Plan note Future Appointments Appointment Date:01/10/2024 01:00:00 PM Scheduled Provider:[facility]IMES [facility] Type:[facility] Procedure 15 min Appointment Date:05/20/2024 12:45:00 PM Scheduled Provider:Yosef GRIMES MD Location:[facility] Appointment Type:URO Office Visit Appointment Date:10/24/2024 11:00:00 AM Scheduled Provider: Location:[facility] Appointment Type:FM Medicare Wellness Subsequent Diagnostic Tests Pending * Urine Cytology ([facility]) 01/08/24 [facility] evaluation + Plan note Future Appointments Appointment Date:01/10/2024 01:00:00 PM Scheduled Provider:Yosef GRIMES MD Location:[facility] Appointment Type:URO Procedure 15 min Appointment Date:05/20/2024 12:45:00 PM Scheduled Provider:Yosef GRIMES MD Location:[facility] Appointment Type:URO Office Visit Appointment Date:10/24/2024 11:00:00 AM Scheduled Provider: Location:[facility] Appointment Type:FM Medicare Wellness Subsequent [facility] evaluation + Plan note Future Appointments Appointment Date:01/26/2024 08:45:00 AM Scheduled Provider:Yosef GRIMES MD Location:[facility] Appointment Type:URO Office Visit Appointment Date:05/20/2024 12:45:00 PM Scheduled Provider:Yosef GRIMES MD Location:[facility] Appointment Type:URO Office Visit Appointment Date:10/24/2024 11:00:00 AM Scheduled Provider: Location:[facility] Appointment Type: Medicare Wellness Subsequent [facility] Evaluation + Plan note Future Appointments Appointment Date:02/28/2024 08:45:00 AM Scheduled Provider:Yosef GRIMES MD [facility] Type:[facility]O Office Visit Appointment Date:05/20/2024 12:45:00 PM Scheduled Provider:Yosef GRIMES MD Location:[facility] Appointment Type:URO Office Visit Appointment Date:10/24/2024 11:00:00 AM Scheduled Provider: Location:[facility] Appointment Type: Medicare Wellness [facility] Evaluation + Plan note Future Appointments Appointment Date:03/04/2024 09:30:00 AM Scheduled Provider:Yosef GRIMES MD Location:[facility] Appointment Type:URO Office Visit Appointment Date:05/20/2024 12:45:00 PM Scheduled Provider:Yosef GRIMES MD Location:[facility] Manoj Appointment Type:URO Office Visit Appointment Date:10/24/2024 11:00:00 AM Scheduled Provider[facility] Type: Medicare Wellness Subsequent [facility] evaluation + Plan note Future Appointments Appointment Date:05/20/2024 12:45:00 PM Scheduled Provider:Yosef GRIMES MD Location:[facility] Manoj Appointment Type:URO Office Visit Appointment Date:10/24/2024 11:00:00 AM Scheduled Provider: Location:[facility] Manoj Appointment Type:FM Medicare Wellness Subsequent [facility] evaluation note* Diagnosis Monoclonal gammopathy- Primary Monoclonal [...] this [facility] noteNo assessment information availableBellevue Hospital Work Phone: Evaluation note* Diagnosis Malignant [...] (HCC) Thrombocytopenia, unspecified [facility] Diagnosis Malignant neoplasm of prostate (HCC)- Primary Malignant neoplasm of prostate [facility] Diagnosis Malignant neoplasm of prostate (HCC)- Primary Malignant neoplasm of prostate documented in this encounter [facility] note* Diagnosis Prostate cancer (HCC)- Primary Malignant neoplasm of prostate Monoclonal gammopathy Monoclonal paraproteinemia documented in this encounter [facility] note* Diagnosis Prostate cancer (HCC)- Primary Malignant neoplasm of prostate Monoclonal gammopathy Monoclonal paraproteinemia Chronic renal insufficiency, stage 3 (moderate) (HCC) Essential hypertension Unspecified essential hypertension documented in this encounter [facility] note* Diagnosis Malignant neoplasm of prostate (HCC)- Primary Malignant neoplasm of prostate [facility] Diagnosis Prostate cancer (HCC)- Primary Malignant neoplasm of prostate Monoclonal gammopathy Monoclonal paraproteinemia documented in this encounter [facility] note* Diagnosis Malignant neoplasm of prostate (HCC)- Primary Malignant neoplasm of prostate documented in this encounter [facility] note* Diagnosis Monoclonal gammopathy- Primary Monoclonal paraproteinemia Prostate cancer (HCC) Malignant neoplasm of prostate Chronic renal insufficiency, stage 3 (moderate) (HCC) documented in this [facility] Narrative - Reported* Type Description Date Medical History hypertension Medical History HYPONATREMIA Medical History ACUTE CHRONIC RENAL FAILURE Medical History PLEURISY Surgical History cancer, skin Lip and Hand 1999 Surgical History PROSTATECTOMY Surgical History SKIN LESIONS REMOVED X2 09/2020 Hospitalization History SEE ABOVE Hospitalization History PNEUMONIA AT AGE 7 [employer] Other Hospital course Narrative No data available for this section [facility] Hospital Discharge instructions No data available for this section [facility] No data available for this section [facility] Summary Purpose Family History No Family History [...] HIGH MDM 60-74 MINUTES David Kumari MD [address] [place] [address] [place] [address] Referral ID Status Reason Start Date Expiration Date Visits Requested Visits Authorized [id number] Pending Review PCP Requested Referral 3 12/19/2023 1 1 Specialty Diagnoses / Procedures Referred By Contac t Referred To Contact Diagnoses Malignant neoplasm of prostate (HCC) Procedures CT SIM PLANNING RADIATION ONCOLOGY THER RAD SIMULAJ-AIDED FIELD SETTING COMPLEX David Kumari MD [address] [place] [address] [place] [address] Referral ID Status Reason Start Date Expiration Date Visits Requested Visits Authorized [id number] Pending Review PCP Requested Referral 12/15/2022 03/08/2023 1 1 Specialty Diagnoses / Procedures Referred By Contac t Referred To Contact MR IMAGING Diagnoses Malignant neoplasm of prostate (HCC) Procedures MRI PROSTATE WO/W IVCON MRI PELVIS W/O & W/CONTRAST MATERIAL David Kumari MD [address] [place] [address] [place] [address] [place] [address] Referral ID Status Reason Start Date Expiration Date Visits Requested Visits Authorized [id number] Pending Review Auto-Generat ed Referral 3 12/15/2023 1 1 Additional Source Comments Source Comments (unrecognize d section and content) In the event this informatio n is protected by the Federal Confidentiality of Alcohol and Drug Abuse Patient Records regulations: The Federal rules restrict any use of the information to criminally investigate or prosecute any alcohol or drug abuse patient.[facility] the event this information is protected by the Federal Confidentiality of Alcohol and Drug Abuse Patient Records regulations: The Federal rules restrict any use of the information to criminally investigate or prosecute any alcohol or drug abuse patient.[facility] the event this information is protected by the Federal Confidentiality of Alcohol and Drug Abuse Patient Records regulations: The Federal rules restrict any use of the information to criminally investigate or prosecute any alcohol or drug abuse patient.[facility] the event this information is protected by the Federal Confidentiality of Alcohol and Drug Abuse Patient Records regulations: The Federal rules restrict any use of the information to criminally investigate or prosecute any alcohol or drug abuse patient.[facility] the event this information is protected by the Federal Confidentiality of Alcohol and Drug Abuse Patient Records regulations: The Federal rules restrict any use of the information to criminally investigate or prosecute any alcohol or drug abuse patient.[facility] the event this information is protected by the Federal Confidentiality of Alcohol and Drug Abuse Patient Records regulations: The Federal rules restrict any use of the information to criminally investigate or prosecute any alcohol or drug abuse patient.[facility] the event this information is protected by the Federal Confidentiality of Alcohol and Drug Abuse Patient Records regulations: The Federal rules restrict any use of the information to criminally investigate or prosecute any alcohol or drug abuse patient.[facility] the event this information is protected by the Federal Confidentiality of Alcohol and Drug Abuse Patient Records regulations: The Federal rules restrict any use of the information to criminally investigate or prosecute any alcohol or drug abuse patient.[facility] HospitalIn the event this information is protected by the Federal Confidentiality of Alcohol and Drug Abuse Patient Records regulations: The Federal rules restrict any use of the information to criminally investigate or prosecute any alcohol or drug abuse patient.[facility] the event this information is protected by the Federal Confidentiality of Alcohol and Drug Abuse Patient Records regulations: The Federal rules restrict any use of the information to criminally investigate or prosecute any alcohol or drug abuse patient.[facility] the event this information is protected by the Federal Confidentiality of Alcohol and Drug Abuse Patient Records regulations: The Federal rules restrict any use of the information to criminally investigate or prosecute any alcohol or drug abuse patient.[facility] HospitalIn the event this information is protected by the Federal Confidentiality of Alcohol and Drug Abuse Patient Records regulations: The Federal rules restrict any use of the information to criminally investigate or prosecute any alcohol or drug abuse patient.[facility] HospitalIn the event this information is protected by the Federal Confidentiality of Alcohol and Drug Abuse Patient Records regulations: The Federal rules restrict any use of the information to criminally investigate or prosecute any alcohol or drug abuse patient.[facility] HospitalIn the event this information is protected by the Federal Confidentiality of Alcohol and Drug Abuse Patient Records regulations: The Federal rules restrict any use of the information to criminally investigate or prosecute any alcohol or drug abuse patient.[facility] HospitalIn the event this information is protected by the Federal Confidentiality of Alcohol and Drug Abuse Patient Records regulations: The Federal rules restrict any use of the information to criminally investigate or prosecute any alcohol or drug abuse patient.[facility] HospitalIn the event this information is protected by the Federal Confidentiality of Alcohol and Drug Abuse Patient Records regulations: The Federal rules restrict any use of the information to criminally investigate or prosecute any alcohol or drug abuse patient.[facility] HospitalIn the event this information is protected by the Federal Confidentiality of Alcohol and Drug Abuse Patient Records regulations: The Federal rules restrict any use of the information to criminally investigate or prosecute any alcohol or drug abuse patient.[facility] HospitalIn the event this information is protected by the Federal Confidentiality of Alcohol and Drug Abuse Patient Records regulations: The Federal rules restrict any use of the information to criminally investigate or prosecute any alcohol or drug abuse patient.[facility] HospitalIn the event this information is protected by the Federal Confidentiality of Alcohol and Drug Abuse Patient Records regulations: The Federal rules restrict any use of the information to criminally investigate or prosecute any alcohol or drug abuse patient.[facility] HospitalIn the event this information is protected by the Federal Confidentiality of Alcohol and Drug Abuse Patient Records regulations: The Federal rules restrict any use of the information to criminally investigate or prosecute any alcohol or drug abuse patient.[facility] the event this information is protected by the Federal Confidentiality of Alcohol and Drug Abuse Patient Records regulations: The Federal rules restrict any use of the information to criminally investigate or prosecute any alcohol or drug abuse patient.[facility] HospitalIn the event this information is protected by the Federal Confidentiality of Alcohol and Drug Abuse Patient Records regulations: The Federal rules restrict any use of the information to criminally investigate or prosecute any alcohol or drug abuse patient.[facility] HospitalIn the event this information is protected by the Federal Confidentiality of Alcohol and Drug Abuse Patient Records regulations: The Federal rules restrict any use of the information to criminally investigate or prosecute any alcohol or drug abuse patient.[facility] HospitalIn the event this information is protected by the Federal Confidentiality of Alcohol and Drug Abuse Patient Records regulations: The Federal rules restrict any use of the information to criminally investigate or prosecute any alcohol or drug abuse patient.[facility] HospitalIn the event this information is protected by the Federal Confidentiality of Alcohol and Drug Abuse Patient Records regulations: The Federal rules restrict any use of the information to criminally investigate or prosecute any alcohol or drug abuse patient.[facility] HospitalIn the event this information is protected by the Federal Confidentiality of Alcohol and Drug Abuse Patient Records regulations: The Federal rules restrict any use of the information to criminally investigate or prosecute any alcohol or drug abuse patient.[facility] HospitalIn the event this information is protected by the Federal Confidentiality of Alcohol and Drug Abuse Patient Records regulations: The Federal rules restrict any use of the information to criminally investigate or prosecute any alcohol or drug abuse patient.[facility] HospitalIn the event this information is protected by the Federal Confidentiality of Alcohol and Drug Abuse Patient Records regulations: The Federal rules restrict any use of the information to criminally investigate or prosecute any alcohol or drug abuse patient.[facility] HospitalIn the event this information is protected by the Federal Confidentiality of Alcohol and Drug Abuse Patient Records regulations: The Federal rules restrict any use of the information to criminally investigate or prosecute any alcohol or drug abuse patient.[facility] HospitalIn the event this information is protected by the Federal Confidentiality of Alcohol and Drug Abuse Patient Records regulations: The Federal rules restrict any use of the information to criminally investigate or prosecute any alcohol or drug abuse patient.[facility] HospitalIn the event this information is protected by the Federal Confidentiality of Alcohol and Drug Abuse Patient Records regulations: The Federal rules restrict any use of the information to criminally investigate or prosecute any alcohol or drug abuse patient.[facility] HospitalIn the event this information is protected by the Federal Confidentiality of Alcohol and Drug Abuse Patient Records regulations: The Federal rules restrict any use of the information to criminally investigate or prosecute any alcohol or drug abuse patient.[facility] HospitalIn the event this information is protected by the Federal Confidentiality of Alcohol and Drug Abuse Patient Records regulations: The Federal rules restrict any use of the information to criminally investigate or prosecute any alcohol or drug abuse patient.[facility] HospitalIn the event this information is protected by the Federal Confidentiality of Alcohol and Drug Abuse Patient Records regulations: The Federal rules restrict any use of the information to criminally investigate or prosecute any alcohol or drug abuse patient.[facility] HospitalIn the event this information is protected by the Federal Confidentiality of Alcohol and Drug Abuse Patient Records regulations: The Federal rules restrict any use of the information to criminally investigate or prosecute any alcohol or drug abuse patient.[facility] HospitalIn the event this information is protected by the Federal Confidentiality of Alcohol and Drug Abuse Patient Records regulations: The Federal rules restrict any use of the information to criminally investigate or prosecute any alcohol or drug abuse patient.[facility] HospitalIn the event this information is protected by the Federal Confidentiality of Alcohol and Drug Abuse Patient Records regulations: The Federal rules restrict any use of the information to criminally investigate or prosecute any alcohol or drug abuse patient.[facility] HospitalIn the event this information is protected by the Federal Confidentiality of Alcohol and Drug Abuse Patient Records regulations: The Federal rules restrict any use of the information to criminally investigate or prosecute any alcohol or drug abuse patient.[facility] HospitalIn the event this information is protected by the Federal Confidentiality of Alcohol and Drug Abuse Patient Records regulations: The Federal rules restrict any use of the information to criminally investigate or prosecute any alcohol or drug abuse patient.[facility] HospitalIn the event this information is protected by the Federal Confidentiality of Alcohol and Drug Abuse Patient Records regulations: The Federal rules restrict any use of the information to criminally investigate or prosecute any alcohol or drug abuse patient.[facility] HospitalIn the event this information is protected by the Federal Confidentiality of Alcohol and Drug Abuse Patient Records regulations: The Federal rules restrict any use of the information to criminally investigate or prosecute any alcohol or drug abuse patient.[facility] HospitalIn the event this information is protected by the Federal Confidentiality of Alcohol and Drug Abuse Patient Records regulations: The Federal rules restrict any use of the information to criminally investigate or prosecute any alcohol or drug abuse patient.[facility] HospitalIn the event this information is protected by the Federal Confidentiality of Alcohol and Drug Abuse Patient Records regulations: The Federal rules restrict any use of the information to criminally investigate or prosecute any alcohol or drug abuse patient.[facility] HospitalIn the event this information is protected by the Federal Confidentiality of Alcohol and Drug Abuse Patient Records regulations: The Federal rules restrict any use of the information to criminally investigate or prosecute any alcohol or drug abuse patient.[facility] HospitalIn the event this information is protected by the Federal Confidentiality of Alcohol and Drug Abuse Patient Records regulations: The Federal rules restrict any use of the information to criminally investigate or prosecute any alcohol or drug abuse patient.[facility] Reason for Visit (unrecogniz ed section and content) Reason Comments Lab Orders Reason Comments Results Reason Comments Call Back 48 Hours Reason Comments monoclonal gammopathy Follow up Reason Comments Nm Pet Request Reason Comments Bladder Cancer Reason Comments Radiology MRI Specialty Diagnoses / Procedures Referred By Ana t Referred To Contact MR IMAGING Diagnoses Malignant neoplasm of prostate (HCC) Procedures MRI PROSTATE WO/W IVCON MRI PELVIS W/O & W/CONTRAST MATERIAL David Kumari MD [address] [place] [address] [place] [address] [place] [address] Referral ID Status Reason Start Date Expiration Date V isits Requested Visits Authorized [id number] Closed Auto-Generate d Referral 11/15/2022 12/15/2023 1 [...] PROSTATE 39FX PLUS SIM David Kumari MD [address] [place] [address] David Kumari MD [address] [place] [address] [place] [address] Referral ID Status Reason Start Date Expiration Date Visits Re quested Visits Authorized [id number] Closed 11/23/2022 06/05/2023 40 40 Reason Comments Prostate Cancer Followup Reason Comments Hematuria Reason Comments Radiology CT Specialty Diagnoses / Procedures Referred By Ana t Referred To Contact [facility] Diagnoses Prostate cancer (HCC) Procedures IMAGING STUDY ORDERED Yosef Grimes MD [address] [place] [address] [facility] [address] [place] [address] Referral ID Status Reason Start Date Expiration Date Visits Requested Visits Authorized [id number] Pending Review Patient Cleared - Admin/Chair man/Directo r advise to proceed or did not respond 01/10/2024 07/08/2024 1 1 Reason Comments Radio Gen RMP Care Team (unrecognized sect ion and content) Team Status: Inactive Member Role Status Dates Angelina Holder , FITNESS ATTENDANT-C Attending Provider Active Action Installer Relationship Specialty Start Date End Date Shahriar Stephenson MD [address] [place] [address] PCP - General Family Medicine 11/15/22 Action Installer Relationship Specialty Start Date End Date Shahriar Stephenson MD [address] [place] [address] PCP - General Family Medicine 11/15/22 Action Installer Relationship Specialty Start Date End Date Shahriar Stephenson MD [address] [place] [address] PCP - General Family Medicine 11/15/22 Action Installer Relationship Specialty Start Date End Date Shahriar Stephenson MD [address] [place] [address] PCP - General Family Medicine 11/15/22 David Kumari MD [address] [facility] [place] [address] Physician Radiation Oncology 12/12/22 Elio Payne APRN.PHP WEBSITE DEVELOPER [address] [facility] [place] [address] Nurse Practitioner Hematology/Oncology 12/12/22 Nicolas Hwang MD [address] [facility] [address] [place], [facility] Physician Hematology/Oncology 12/12/22 Nancy Ray, SINDI [address] [facility] [place] [address] Specialty Bag End Sewer Hematology/Oncology 12/12/22 Action Installer Relationship Specialty Start Date End Date Shahriar Stephenson MD [address] [place] [address] PCP - General Family Medicine 11/15/22 Action Installer Relationship Specialty Start Date End Date Shahriar Stephenson MD [address] [place] [address] PCP - General Family Medicine 11/15/22 David Kumari MD [address] [facility] [place] [address] Physician Radiation Oncology 12/12/22 Elio Payne, MEDICAL OFFICE TECHNOLOGY INSTRUCTOR.[employer] WEBSITE DEVELOPER [address] [facility] [place] [address] Nurse Practitioner Hematology/Oncology 12/12/22 Nicolas Hwang MD [address] [facility] [place] [address] Physician Hematology/Oncology 12/12/22 Nancy Ray, SINDI [address] [facility] [place] [address] Specialty Bag End Sewer Hematology/Oncology 12/12/22 Action Installer Relationship Specialty Start Date End Date Shahriar Stephenson MD [address] [place] [address] PCP - General Family Medicine 11/15/22 David Kumari MD [address] [facility] [place] [address] Physician Radiation Oncology 12/12/22 Elio Payne, MEDICAL OFFICE TECHNOLOGY INSTRUCTOR.PHP WEBSITE DEVELOPER [address] [facility] [place] [address] Nurse Practitioner Hematology/Oncology 12/12/22 Nicolas Hwang MD [address] [facility] [place] [address] Physician Hematology/Oncology 12/12/22 Nancy Ray, SINDI [address] [facility] [place] [address] Specialty Bag End Sewer Hematology/Oncology 12/12/22 Action Installer Relationship Specialty Start Date End Date Shahriar Stephenson MD [address] [place] [address] PCP - General Family Medicine 11/15/22 David Kumari MD [address] [place] [address] Physician Radiation Oncology 12/12/22 Elio Payne, MEDICAL OFFICE TECHNOLOGY INSTRUCTOR.[employer] WEBSITE DEVELOPER [address] [place], [place] [id number] Nurse Practitioner Hematology/Oncology 12/12/22 Nicolas Hwang MD [address] [place] [address] Physician Hematology/Oncology 12/12/22 Nancy Ray, RN [address] [place] [address] Specialty Bag End Sewer Hematology/Oncology 12/12/22 Action Installer Relationship Specialty Start Date End Date Shahriar Stephenson MD [address] [place] [address] PCP - General Family Medicine 11/15/22 David Kumari MD [address] [place] [address] Physician Radiation Oncology 12/12/22 Elio Payne, MEDICAL OFFICE TECHNOLOGY INSTRUCTOR.[employer] WEBSITE DEVELOPER [address] [place] [address] Nurse Practitioner Hematology/Oncology 12/12/22 Nicolas Hwang MD [address] [place] [address] Physician Hematology/Oncology 12/12/22 Nancy Ray, SINDI [address] [place] [address] Specialty Bag End Sewer Hematology/Oncology 12/12/22 Action Installer Relationship Specialty Start Date End Date Shahriar Stephenson MD [address] [place] [address] PCP - General Family Medicine 11/15/22 David Kumari MD [address] [place] [address] Physician Radiation Oncology 12/12/22 Elio Payne, MEDICAL OFFICE TECHNOLOGY INSTRUCTOR.[employer] WEBSITE DEVELOPER [address] [facility] [place] [address] Nurse Practitioner Hematology/Oncology 12/12/22 Nicolas Hwang MD [address] [facility] [place] [address] Physician Hematology/Oncology 12/12/22 Nancy Ray, SINDI [address] [place] [address] Specialty Bag End Sewer Hematology/Oncology 12/12/22 Action Installer Relationship Specialty Start Date End Date Shahriar Stephenson MD [address] [facility] [place] [address] PCP - General Family Medicine 11/15/22 David Kumari MD [address] [place] [address] Physician Radiation Oncology 12/12/22 Elio Payne, MEDICAL OFFICE TECHNOLOGY INSTRUCTOR.PHP WEBSITE DEVELOPER [address] [facility] [place] [address] Nurse Practitioner Hematology/Oncology 12/12/22 Nicolas Hwang MD [address] [facility] [place] [address] Physician Hematology/Oncology 12/12/22 Nancy Ray, SINDI [address] [place] [address] Specialty Bag End Sewer Hematology/Oncology 12/12/22 Action Installer Relationship Specialty Start Date End Date Shahriar Stephenson MD [address] [place] [address] PCP - General Family Medicine 11/15/22 David Kumari MD [address] [place] [id number] Physician Radiation Oncology 12/12/22 Elio Payne APRN.PHP WEBSITE DEVELOPER [address] [place] [address] Nurse Practitioner Hematology/Oncology 12/12/22 Nicolas Hwang MD [address] [place] [address] Physician Hematology/Oncology 12/12/22 Nancy Rya, SINDI [address] [place] [address] Specialty Bag End Sewer Hematology/Oncology 12/12/22 Action Installer Relationship Specialty Start Date End Date Shahriar Stephenson MD [address] [place] [address] PCP - General Family Medicine 11/15/22 David Kumari MD [address] [place] [address] Physician Radiation Oncology 12/12/22 Elio Payne, MEDICAL OFFICE TECHNOLOGY INSTRUCTOR.PHP WEBSITE DEVELOPER [address] [place] [address] Nurse Practitioner Hematology/Oncology 12/12/22 Nicolas Hwang MD [address] [place] [address] Physician Hematology/Oncology 12/12/22 Nancy Ray, SINDI [address] [place] [address] Specialty Bag End Sewer Hematology/Oncology 12/12/22 Action Installer Relationship Specialty Start Date End Date Shahriar Stephenson MD [facility] [place] [address] [address] PCP - General Family Medicine 11/15/22 David Kumari MD [address] [place] [address] Physician Radiation Oncology 12/12/22 Elio Payne, MEDICAL OFFICE TECHNOLOGY INSTRUCTOR.PHP WEBSITE DEVELOPER [address] [place] [address] Nurse Practitioner Hematology/Oncology 12/12/22 Nicolas Hwang MD [address] [place] [address] Physician Hematology/Oncology 12/12/22 Nancy Ray, SINDI [address] [place] [address] Specialty Bag End Sewer Hematology/Oncology 12/12/22 Action Installer Relationship Specialty Start Date End Date Shahrira Stephenson MD [address] [place] [address] PCP - General Family Medicine 11/15/22 David Kumari MD [address] [place] [address] Physician Radiation Oncology 12/12/22 Elio Payne, MEDICAL OFFICE TECHNOLOGY INSTRUCTOR.PHP WEBSITE DEVELOPER [address] [place] [address] Nurse Practitioner Hematology/Oncology 12/12/22 Nicolas Hwang MD [address] [facility] [place] [address] Physician Hematology/Oncology 12/12/22 Nancy Ray, SINDI [address] [facility] [place] [address] Specialty Bag End Sewer Hematology/Oncology 12/12/22 Action Installer Relationship Specialty Start Date End Date Shahriar Stephenson MD [address] [place] [address] PCP - General Family Medicine 11/15/22 David Kumari MD [address] [facility] [place] [address] Physician Radiation Oncology 12/12/22 Elio Payne, MEDICAL OFFICE TECHNOLOGY INSTRUCTOR.PHP WEBSITE DEVELOPER [address] [place] [address] Nurse Practitioner Hematology/Oncology 12/12/22 Nicolas Hwang MD [address] [place] [address] Physician Hematology/Oncology 12/12/22 Nancy Ray, SINDI [address] [place] [address] Specialty Bag End Sewer Hematology/Oncology 12/12/22 Action Installer Relationship Specialty Start Date End Date Shahriar Stephenson MD [facility] [place] [address] PCP - General Family Medicine 11/15/22 David Kumari MD [address] [place] [address] [place] [address] Physician Radiation Oncology 12/12/22 Elio Payne, MEDICAL OFFICE TECHNOLOGY INSTRUCTOR.PHP WEBSITE DEVELOPER [address] [place] [address] Nurse Practitioner Hematology/Oncology 12/12/22 Nicolas Hwang MD [address] [place] [address] [place] [address] Physician Hematology/Oncology 12/12/22 Nancy Ray, SINDI [address] [place] [address] Specialty Bag End Sewer Hematology/Oncology 12/12/22 Action Installer Relationship Specialty Start Date End Date Shahriar Stephenson MD [facility] [place] [address] PCP - General Family Medicine 11/15/22 David Kumari MD [address] [place] [address] Physician Radiation Oncology 12/12/22 Elio Payne, MEDICAL OFFICE TECHNOLOGY INSTRUCTOR.PHP WEBSITE DEVELOPER [address] [facility] [place] [address] Nurse Practitioner Hematology/Oncology 12/12/22 Nicolas Hwang MD [address] [facility] [place] [address] Physician Hematology/Oncology 12/12/22 Nancy Ray, SINDI [address] [facility] [place] [address] Specialty Bag End Sewer Hematology/Oncology 12/12/22 Action Installer Relationship Specialty Start Date End Date Shahriar Stephenson MD [address] [place] [address] PCP - General Family Medicine 11/15/22 David Kumari MD [address] [place] [address] Physician Radiation Oncology 12/12/22 Elio Payne, MEDICAL OFFICE TECHNOLOGY INSTRUCTOR.PHP WEBSITE DEVELOPER [address] [place] [address] Nurse Practitioner Hematology/Oncology 12/12/22 Nicolas Hwang MD [address] [place] [address] Physician Hematology/Oncology 12/12/22 Nancy Ray, SINDI [address] [facility] [place] [address] Specialty Bag End Sewer Hematology/Oncology 12/12/22 Action Installer Relationship Specialty Start Date End Date Shahriar Stephenson MD [address] [place] [address] PCP - General Family Medicine 11/15/22 David Kumari MD [address] [place] [address] Physician Radiation Oncology 12/12/22 Elio Payne, MEDICAL OFFICE TECHNOLOGY INSTRUCTOR.PHP WEBSITE DEVELOPER [address] [place] [address] Nurse Practitioner Hematology/Oncology 12/12/22 Nicolas Hwang MD [address] [place] [address] Physician Hematology/Oncology 12/12/22 Nancy Ray, SINDI [address] [place] [address] Specialty Bag End Sewer Hematology/Oncology 12/12/22 Action Installer Relationship Specialty Start Date End Date Shahriar Stephenson MD [address] [place] [address] PCP - General Family Medicine 11/15/22 David Kumari MD [address] [place] [address] Physician Radiation Oncology 12/12/22 Elio Payne, MEDICAL OFFICE TECHNOLOGY INSTRUCTOR.PHP WEBSITE DEVELOPER [address] [place] [address] Nurse Practitioner Hematology/Oncology 12/12/22 Nicolas Hwang MD [address] [place] [address] Physician Hematology/Oncology 12/12/22 Nancy Ray, SINDI [address] [place] [address] Specialty Bag End Sewer Hematology/Oncology 12/12/22 Action Installer Relationship Specialty Start Date End Date Shahriar Stephenson MD [address] [place] [address] PCP - General Family Medicine 11/15/22 David Kumari MD [address] [facility] [place] [address] Physician Radiation Oncology 12/12/22 Elio Payne, MEDICAL OFFICE TECHNOLOGY INSTRUCTOR.PHP WEBSITE DEVELOPER [address] [facility] [place] [address] Nurse Practitioner Hematology/Oncology 12/12/22 Nicolas Hwang MD [address] [facility] [place] [address] Physician Hematology/Oncology 12/12/22 Nancy Ray, SINDI [address] [facility] [place] [address] Specialty Bag End Sewer Hematology/Oncology 12/12/22 Action Installer Relationship Specialty Start Date End Date Shahriar Stephenson MD [address] [place] [address] PCP - General Family Medicine 11/15/22 David Kumari MD [address] [facility] [place] [address] Physician Radiation Oncology 12/12/22 Elio Payne, MEDICAL OFFICE TECHNOLOGY INSTRUCTOR.PHP WEBSITE DEVELOPER [address] [place] [id number] Nurse Practitioner Hematology/Oncology 12/12/22 Nicolas Hwang MD [address] [place] [address] [place] [address] Physician Hematology/Oncology 12/12/22 Nancy Ray, SINDI [address] [place] [id number] Specialty Bag End Sewer Hematology/Oncology 12/12/22 Action Installer Relationship Specialty Start Date End Date Shahriar Stephenson MD [address] [place] [address] PCP - General Family Medicine 11/15/22 Action Installer Relationship Specialty Start Date End Date Shahriar Stephenson MD [facility] [place] [address] PCP - General Family Medicine 11/15/22 David Kumari MD [address] [place] [address] [address] [place] [id number] Physician Radiation Oncology 12/12/22 Elio Payne APRN.PHP WEBSITE DEVELOPER [address] [place] [id number] Nurse Practitioner Hematology/Oncology 12/12/22 Nicolas Hwang MD [address] [place] [address] Physician Hematology/Oncology 12/12/22 Nancy Ray, SINDI [address] [place] [address] Specialty Bag End Sewer Hematology/Oncology 12/12/22 Action Installer Relationship Specialty Start Date End Date Shahriar Stephenson MD [address] [place] [address] PCP - General Family Medicine 11/15/22 David Kumari MD [address] [place] [address] Physician Radiation Oncology 12/12/22 Elio Payne, MEDICAL OFFICE TECHNOLOGY INSTRUCTOR.PHP WEBSITE DEVELOPER [address] [place] [address] Nurse Practitioner Hematology/Oncology 12/12/22 Nicolas Hwang MD [address] [place] [address] Physician Hematology/Oncology 12/12/22 Nancy Ray, SINDI [address] [place] [address] Specialty Bag End Sewer Hematology/Oncology 12/12/22 Team Status: Active Member Role Status Dates NON STAFF Primary Care Provider Active Start: January 13, 2024 Samir Mantilla DO Attending Provider Active Sta rt: January 13, 2024 Team Status: Inactive Member Role Status Dates Yosef Grimes MD Attending Provider Active St art: February 22, 2024 End: February 22, 2024 Action Installer Relationship Specialty Start Date End Date Shahriar Stephenson MD [address] [place] [address] PCP - General Family Medicine 11/15/22 David Kumari MD [address] [place] [address] Physician Radiation Oncology 12/12/22 Elio Payne, MEDICAL OFFICE TECHNOLOGY INSTRUCTOR.PHP WEBSITE DEVELOPER [address] [place] [address] Nurse Practitioner Hematology/Oncology 12/12/22 Nicolas Hwang MD [address] [place] [address] Physician Hematology/Oncology 12/12/22 Nancy Ray, SINDI [address] [place] [address] Specialty Bag End Sewer Hematology/Oncology 12/12/22 Action Installer Relationship Specialty Start Date End Date Shahriar Stephenson MD [facility] [place] [address] PCP - General Family Medicine 11/15/22 David Kumari MD [address] [place] [address] Physician Radiation Oncology 12/12/22 Elio Payne APRN.PHP WEBSITE DEVELOPER [address] [place] [address] Nurse Practitioner Hematology/Oncology 12/12/22 Nicolas Hwang MD [address] [place] [address] Physician Hematology/Oncology 12/12/22 Nancy Ray, SINDI [address] [place] [address] Specialty Bag End Sewer Hematology/Oncology 12/12/22 Action Installer Relationship Specialty Start Date End Date Shahriar Stephenson MD [address] [place] [address] PCP - General Family Medicine 11/15/22 David Kumari MD [address] [place] [address] Physician Radiation Oncology 12/12/22 Elio Payne APRN.PHP WEBSITE DEVELOPER [address] [place] [address] Nurse Practitioner Hematology/Oncology 12/12/22 Nicolas Hwang MD [address] [place] [address] Physician Hematology/Oncology 12/12/22 Nancy Ray, SINDI [address] [place] [address] Specialty Bag End Sewer Hematology/Oncology 12/12/22 (unrecognized sect ion and content) No Status Records FoundNo Status Records FoundNo Status Records FoundNo Status Records FoundNo Status Records FoundNo Status Records FoundNo Status Records Found INFORMATION SOURCE (unrecogn ized section and content) DATE CREATED AUTHOR 10/17/2021 [facility] DATE CREATED AUTHOR AUTHOR'S ORGANIZ ATION 01/06/2024 [facility] DATE CREATED AUTHOR AUTHOR'S ORGANIZ ATION 02/29/2024 [facility] DATE CREATED AUTHOR AUTHOR'S ORGANIZ ATION 03/01/2024 [facility] DATE CREATED AUTHOR AUTHOR'S ORGANIZ ATION 03/05/2024 [facility] DATE CREATED AUTHOR AUTHOR'S ORGANIZ ATION 06/12/2024 [facility] DATE CREATED AUTHOR AUTHOR'S ORGANIZ ATION 10/17/2024 [facility] Goals (unrecognized section and content) Goals [...] BE BASED ON THE PRIMARY CLINICAL RECORDS. [facility]. provides no warranty or guarantee of the accuracy or completeness of information in this document.
--- OUTSIDE RECORDS SUMMARY | 2024-10-21 09:49 | XMS_ITS | CCD ---
Author Organization [facility] Care Team Providers [employer] Sales Consultant Name Role Phone Unavailable Primary Care Provider UnavailAzucena Johnson Unavailable Unavailable Primary Care Provider UnavailGURMEET Negron Primary Care Physician [phone] DARÍO, DR GURMEET Haque Admitting Unavailable CHANEL, DR GURMEET Haque Attending Unavailable CHANEL, DR GURMEET Haque Primary Care Unavailable CHANEL, DR GURMEET Haque Consulting Unavailable ZIEBER, DR MIA Bunch Consulting Unavailable CHANEL, DR GURMEET Haque Admitting Unavailable CHANEL, DR GURMEET Haque Attending Unavailable CHANEL, DR GURMEET Haque Primary Care Unavailable CHANEL, DR GURMEET Haque Consulting Unavailable READING, DR CHAIM Canales Consulting Unavailable CHANEL, DR [...] Provider Shahriar Stephenson MD Primary Care Provider [phone] David Kumari MD Unavailable Renny HOME SERVICE ADVISOR.FARM ADVISOR, Elio Unavailable [phone] Nicolas Hwang MD Unavailable Cory DELONG, Nancy Unavailable Shahriar Stephenson MD Primary Care Provider [phone] Unavailable Primary Care Provider UnavailShilpa Mcguire Primary Care Physician Yosef Grimes MD Attending Provider [phone] Dominique, HOME SERVICE ADVISOR Shilpa Mart Attending Unavailable Dominique, HOME SERVICE ADVISOR Shilpa Mart Attending Unavailable Dominique, HOME SERVICE ADVISOR Shilpa Mart Attending Unavailable GRIMES, Yosef R [...] Fever (finding), Swelling at injection site (disorder) [facility] (4 sources) Penicillins; Translations: [PENICILLINS] Drug Allergy 10-22-19 Rash, Swelling [facility] (4 sources) Penicillin V Drug Allergy 10-10-19 swelling, rash, and hair loss [facility] (3 sources) TERAMYCIN Propensity to adverse reactions Unknown [employer] Other (20 sources) Penicillins Drug Allergy 10-22-19 Rash, Swelling [facility] (20 sources) Penicillin; Translations: [penicillin] Drug Allergy Swelling at injection site (disorder) [facility] (1 source) Oxytetracycline Drug Allergy 12-23-19 16 [facility] Repository (1 source) Penicillins Drug allergy (disorder) 12-23-19 [facility] Repository (1 source) Oxytetracycline Drug Allergy 10-10-19 [facility] Repository (1 source) Penicillin Drug Allergy 10-10-19 [facility] Repository (4 sources) Penicillins Drug Allergy 10-22-19 Rash, Swelling [facility] Medications Current Medications Medication Drug Class(es) Dates Sig (Normalized) Sig (Original) abiraterone acetate 250 mg oral tablet (20 sources) Cytochrome P450 17A1 Inhibitor Start: 12-08-2022 End: 05-20-2024 take 4 tablets by mouth once daily abiraterone 250 mg tablet Take 4 tablets by mouth once daily. 360 tablet 5 05/21/2024 11:32 AM EDT 05/20/2024 Active Comment on above: Take 4 tablets by mo [facility] once daily. azithromycin 250 mg oral [...] for 90 day(s), 90 tab(s), Refill(s) 3, [facility], 185, cm, 09/27/23 11:20:00 [...] day(s), # 90 tab(s), Refills(s) 3, Pharmacy: [facility], 190, cm, 11/18/22 11:20:00 [...] procedure, # 2 tab(s), Refills(s) 0, Pharmacy: [facility], 190, cm, 01/08/24 9:10:00 [...] procedure, # 2 tab(s), Refills(s) 0, Pharmacy: [facility], 190, cm, 10/03/22 13:54:00 [...] Stephenson MD This Is Your Medications List [facility] Prescription (Eliguard) abiraterone (abiraterone 250 mg oral [...] GRIMES MD Where: [facility] [address] [address]- 2025 1:20 PM EDT With: Shilpa Naylor Where: [facility] [address] [address]- Medications What How Much When Instructions Changed hydrochlorothiazide-l isinopril (hydrochlorothiazide- lisinopril 12.5 mg-10 mg Tab) 1 Tablets By Mouth Every day TAKE 1 TABLET BY MOUTH ONCE DAILY Pickup at [facility] Unchanged abiraterone (abiraterone 250 mg oral tablet) 4 Tablets By Mouth Every day Unchanged [facility] Prescription (Eliguard) 0 As Directed injection every 6 months Unchanged predniSONE (predniSONE 5 mg Tab) Pharmacy Information [facility]: [address] [place], [place] [id number] [phone] Allergies oxytetracycline (Fever, Swelling at injection site) [...] yet, please contact Health Information Management at [phone] to get signed up today. Language Information Language assistance services are available as needed. Normal [facility] Office/Clini c Noteon 09-26-2024 [...] of bladder) followed by Dr. Grimes and [facility]. Has had radiation and is taking [...] TAKE 1 TABLET BY MOUTH ONCE DAILY, [facility], 190, cm, 09/26/24 14:26:00 [...] ( (more content not included)... Normal [facility] Comment on above: Result Comment: [...] specialist: Urologist Dr Heck , Dr Cook Music Librarian, Dr Mack oncologist, pt states he has [...] feel free to contact me at extension [phone]. Thank you! Jazmin Cano, MYRNAN, RN, CCM, CCDS, CCDS-O CDI Research Program Assistant [address] [address] P: [phone] F: [phone] [email or web address] From: Shilpa Naylor To: Jazmin Cano RN; Sent: 09/26/2024 14:54:25 EDT Subject: RE: Pre-Visit Planning Caller Name: ADOLPH JOHNS; Caller Number: H I updated with current diagnoses. thank you Normal [facility] Pre-Visit Planning Pre-Visit Planning From: Jazmin [...] feel free to contact me at extension [phone]. Thank you! KORY Archibald, RN, CCM, CCDS, CCDS-O CDI Research Program Assistant [address] [address] P: [phone] F: [phone] [email or web address] From: Shilpa Naylor To: Jazmin Cano RN; Sent: 09/26/2024 14:12:23 EDT Subject: RE: Pre-Visit Planning Caller Name: ADOLPH JOHNS; Caller Number: H mild pulmonary hypertension Normal [facility] Pre-Visit Planning Pre-Visit Planning From: Jazmin [...] feel free to contact me at extension [phone]. Thank you! Jazmin Cnao, KORY, RN, CCM, CCDS CDI Research Program Assistant [address] [address] P: [phone] F: [phone] [email or web address] From: Shilpa Naylor To: Rachael DELONG, Jazmin; Sent: 09/26/2024 14:11:40 EDT Subject: RE: Pre-Visit Planning Caller Name: ADOLPH JOHNS; Caller Number: H CKD stage 3b Normal [facility] CNOVon 06-04-2024 CNOV Office Visit (RADTSA ) ADOLPH JOHNS ([id number]) 1945 M Date Time Provider Department 06/04/24 [...] DIAGNOSIS: Prostate adenocarcinoma, initial PSA 7.5, biopsy [place] score 4 + 3 = 7 (grade [...] by: David Kumari MD cc: Shahriar Stephenson [address] [place] [address] No referring provider defined for this encounter. Referring Provider: NICOLAS HWANG [[id number]] Allergies As of Date: 06/04/2024 Noted Allergy Reaction PENICILLINS 10/22/2019 2 - Rash 7 - Swelling TERAMYCIN (OXYTETRACYCLINE) 10/22/2019 16 - Unknown Date Reviewed: 06/04/2024 Reviewed by: Letty Barahona, RN - Fully Assessed Reason for Visit: Prostate Cancer [590] Primary Visit Diagnosis:Malignant neoplasm of prostate (HCC) [C61] Order(s):PROSTATE-SPE CIFIC ANTIGEN DIAGNOSTIC [SQPSA] Order #: [id number] FUTURE Prescriptions as of 06/07/2024 - leuprolide [...] ORAL) (Discontinue (more content not included)... Normal [facility] CNOVSPon 05-20-2024 CNOVSP Visit (SP) Office (HEMASA) GONZÁLEZ JOHNSOLL ([id number]) 1945 M Date Time Provider Department 05/20/24 2:00 PM MINOO GILL During your visit today, we recorded the following information about you: Temperature Pulse Respiration Blood pressure 97.6 degrees 79/minute 16/minute 120/72 Weight 117.9 kg Minoo Gill APRN.FARM ADVISOR 05/20/2024 4:04 PM Signed PATIENT NAME: Adolph [...] No difficulties with urination. Has returned from [place]! Labs stable. MEDICATIONS: abiraterone 250 mg tablet [...] or petechiae. PATHOLOGY: 11/10/2022 Bladder tumor, TURBT ([facility]) Metastatic poorly differentiated adenocarcinoma, consistent with [...] TISSUES: * (more content not included)... Normal [facility] Urology Office/Clinic Noteon 05-20-2024 Urology Office/Clinic Note [...] in dark side documents dated 09/27/21 from [facility]). PSMA PET scan 10/28/22 at [facility] - [...] [facility] [address], [place] [address] [phone] Additional Instructions: 6 mos (more content not included)... Normal [facility] Comment on above: Result Comment: Electronically Signed By : Yosef GRIMES MD\.br\Date and Time Signed: 05/20/24 08:39 EDT\.br\Electronically Co-Signed By: Odette Cottrell\.br\Date and Time Co-Signed: 05/20/24 08:37 EDT [facility] ([id number]) 1945 M Date Time Provider Department 05/16/24 [...] Status:Closed by HOLLY SPIVEY on 05/29/24 Normal [facility] Basic metabolic 2000 panelon 05-15-2024 Anion gap [Moles/Vol] 14 mmol/L Normal 8-15 [facility] Comment on above: Order Comment: Specimen Type: BLOOD SPEC IMENOrdering Facility: [facility] Address: [address] [place] [address] Performed By: #### 2 4321-2 ####[facility] LABCLIA [id number] [place] [address] Calcium [Mass/Vol] 10.2 mg/dL Normal 8.5-10.2 [facility] Comment on above: Order Comment: Specimen Type: BLOOD SPEC IMENOrdering Facility: [facility] Address: [address] [place] [address] Performed By: #### 2 4321-2 ####[facility] LABCLIA [id number] [place] [address] Chloride [Moles/Vol] 103 mmol/L Normal 98-107 [facility] Comment on above: Order Comment: Specimen Type: BLOOD SPEC IMENOrdering Facility: [facility] Address: [address] [place] [address] Performed By: #### 2 4321-2 ####[facility] LABCLIA [id number] [place] [address] CO2 [Moles/Vol] 24 mmol/L Normal 22-30 [facility] Comment on above: Order Comment: Specimen Type: BLOOD SPEC IMENOrdering Facility: [facility] Address: [address] [place] [address] Performed By: #### 2 4321-2 ####[facility] LABCLIA [id number] [place] [address] Creatinine [Mass/Vol] 1.40 mg/dL High 0.73-1.22 [facility] Comment on above: Order Comment: Specimen Type: BLOOD SPEC IMENOrdering Facility: [facility] Address: [address] [place], [place] [address] Performed By: #### 2 4321-2 ####[facility] LABCLIA [id number] [place] [address] Creatinine and Glomerular filtration rate.predicted panel (S/P/Bld) 52 mL/min/1.73m??? Low >=60 [facility] Comment on above: Order Comment: Specimen Type: BLOOD SPEC IMENOrdering Facility: [facility] Address: [address] [place] [address] Result Comment: Paty mated Glomerular Filtration Rate [...] actual GFR. Performed By: #### 2 4321-2 ####[facility] LABCLIA [id number] [place] [address] Glucose [Mass/Vol] 224 mg/dL High 74-99 [facility] Comment on above: Order Comment: Specimen Type: BLOOD SPEC IMENOrdering Facility: [facility] Address: [address] [place], [place] [address] Result Comment: The [place] Diabetes Association (ADA) provides guidance for cutoff [...] Standards of Medical Care in Diabetes 2016, [place] Diabetes Association. Diabetes Care. 2016.39(Suppl 1). Performed By: #### 2 4321-2 ####[facility] LABCLIA [id number] [place] [address] Potassium [Moles/Vol] 4.0 mmol/L Normal 3.7-5.1 [facility] Comment on above: Order Comment: Specimen Type: BLOOD SPEC IMENOrdering Facility: [facility] Address: [address] [place] [address] Performed By: #### 2 4321-2 ####[facility] LABCLIA [id number] [place] [address] Sodium [Moles/Vol] 141 mmol/L Normal 136-144 [facility] Comment on above: Order Comment: Specimen Type: BLOOD SPEC IMENOrdering Facility: [facility] Address: [address] [place] [address] Performed By: #### 2 4321-2 ####[facility] LABCLIA [id number] [place] [address] Urea nitrogen [Mass/Vol] 20 mg/dL Normal 9-24 [facility] Comment on above: Order Comment: Specimen Type: BLOOD SPEC IMENOrdering Facility: [facility] [place] Address: [address] [place] [address] Performed By: #### 2 4321-2 ####[facility] LABCLIA [id number] [place] [address] CBC W Auto Differential pane l (Bld)on 05-15-2024 Basophils (Bld) [#/Vol] 0.03 10*3/uL Normal <0.11 [facility] Comment on above: Order Comment: Specimen Type: BLOOD SPEC IMENOrdering Facility: [facility] [place] Address: [address] [place] [address] Performed By: #### 5 7021-8 ####[facility] LABIA [id number] [place] [address] Basophils/100 WBC (Bld) 0.3 % Normal [facility] Comment on above: Order Comment: Specimen Type: BLOOD SPEC IMENOrdering Facility: [facility] [place] Address: [address] [place] [address] Performed By: #### 5 7021-8 ####[facility] LABCLIA [id number] [place] [address] Differential cell count method Nom (Bld) Auto Normal [facility] Comment on above: Order Comment: Specimen Type: BLOOD SPEC IMENOrdering Facility: [facility] [place] Address: [address] [place] [address] Performed By: #### 5 7021-8 ####[facility] LABCLIA [id number] [place] [address] Eosinophils (Bld) [#/Vol] 0.07 10*3/uL Normal <0.46 [facility] Comment on above: Order Comment: Specimen Type: BLOOD SPEC IMENOrdering Facility: [facility] Address: [address] [place] [address] Performed By: #### 5 7021-8 ####[facility] LABCLIA [id number] [place] [address] Eosinophils/100 WBC (Bld) 0.8 % Normal [facility] Comment on above: Order Comment: Specimen Type: BLOOD SPEC IMENOrdering Facility: [facility] [place] Address: [address] [place] [address] Performed By: #### 5 7021-8 ####[facility] LABCLIA [id number] [place] [address] Erythrocyte distribution width (RBC) [Ratio] 14.2 % Normal 11.5-15.0 [facility] Comment on above: Order Comment: Specimen Type: BLOOD SPEC IMENOrdering Facility: [facility] [place] Address: [address] [place] [address] Performed By: #### 5 7021-8 ####[facility] LABCLIA [id number] [place] [address] Hematocrit (Bld) [Volume fraction] 39.0 % Normal 39.0-51.0 [facility] Comment on above: Order Comment: Specimen Type: BLOOD SPEC IMENOrdering Facility: [facility] Address: [address] [place] [address] Performed By: #### 5 7021-8 ####[facility] LABCLIA [id number] [place] [address] Hemoglobin (Bld) [Mass/Vol] 12.9 g/dL Low 13.0-17.0 [facility] Comment on above: Order Comment: Specimen Type: BLOOD SPEC IMENOrdering Facility: [facility] [place] Address: [address] [place] [address] Performed By: #### 5 7021-8 ####[facility] LABCLIA [id number] [place] [address] Immature granulocytes (Bld) [#/Vol] 0.13 10*3/uL High <0.10 [facility] Comment on above: Order Comment: Specimen Type: BLOOD SPEC IMENOrdering Facility: [facility] [place] Address: [address] [place] [address] Performed By: #### 5 7021-8 ####[facility] LABCLIA [id number] [place] [address] Immature granulocytes/100 WBC (Bld) 1.5 % Normal [facility] Comment on above: Order Comment: Specimen Type: BLOOD SPEC IMENOrdering Facility: [facility] Address: [address] [place] [address] Performed By: #### 5 7021-8 ####[facility] LABCLIA [id number] [place] [address] Lymphocytes (Bld) [#/Vol] 0.80 10*3/uL Low 1.00-4.00 [facility] Comment on above: Order Comment: Specimen Type: BLOOD SPEC IMENOrdering Facility: [facility] Address: [address] [place] [address] Performed By: #### 5 7021-8 ####[facility] LABCLIA [id number] [place] [address] Lymphocytes/100 WBC (Bld) 9.0 % Normal [facility] Comment on above: Order Comment: Specimen Type: BLOOD SPEC IMENOrdering Facility: [facility] [place] Address: [address] [place] [address] Performed By: #### 5 7021-8 ####[facility] LABCLIA [id number] [place] [address] MCH (RBC) [Entitic mass] 30.6 pg Normal 26.0-34.0 [facility] Comment on above: Order Comment: Specimen Type: BLOOD SPEC IMENOrdering Facility: [facility] [place] Address: [address] [place] [address] Performed By: #### 5 7021-8 ####[facility] LABIA [id number] [place] [address] MCHC (RBC) [Mass/Vol] 33.1 g/dL Normal 30.5-36.0 [facility] Comment on above: Order Comment: Specimen Type: BLOOD SPEC IMENOrdering Facility: [facility] [place] Address: [address] [place] [address] Performed By: #### 5 7021-8 ####[facility] LABIA [id number] [place] [address] MCV (RBC) [Entitic vol] 92.4 fL Normal 80.0-100.0 [facility] Comment on above: Order Comment: Specimen Type: BLOOD SPEC IMENOrdering Facility: [facility] [place] Address: [address] [place] [address] Performed By: #### 5 7021-8 ####[facility] LABIA [id number] [place] [address] Monocytes (Bld) [#/Vol] 0.61 10*3/uL Normal <0.87 [facility] Comment on above: Order Comment: Specimen Type: BLOOD SPEC IMENOrdering Facility: [facility] [place] Address: [address] [place] [address] Performed By: #### 5 7021-8 ####[facility] LABCLIA [id number] [place] [address] Monocytes/100 WBC (Bld) 6.9 % Normal [facility] Comment on above: Order Comment: Specimen Type: BLOOD SPEC IMENOrdering Facility: [facility] Address: [address] [place] [address] Performed By: #### 5 7021-8 ####[facility] LABCLIA [id number] [place] [address] Neutrophils (Bld) [#/Vol] 7.20 10*3/uL Normal 1.45-7.50 [facility] Comment on above: Order Comment: Specimen Type: BLOOD SPEC IMENOrdering Facility: [facility] [place] Address: [address] [place] [address] Performed By: #### 5 7021-8 ####[facility] LABCLIA [id number] [place] [address] Neutrophils/100 WBC (Bld) 81.5 % Normal [facility] Comment on above: Order Comment: Specimen Type: BLOOD SPEC IMENOrdering Facility: [facility] Address: [address] [place] [address] Performed By: #### 5 7021-8 ####[facility] LABCLIA [id number] [place] [address] Nucleated RBC (Bld) [#/Vol] 10*3/uL Normal <0.01 [facility] Comment on above: Order Comment: Specimen Type: BLOOD SPEC IMENOrdering Facility: [facility] [place] Address: [address] [place] [address] Performed By: #### 5 7021-8 ####[facility] LABCLIA [id number] [place] [address] Nucleated RBC/100 WBC (Bld) [Ratio] 0.0 /100 WBC Normal [facility] Comment on above: Order Comment: Specimen Type: BLOOD SPEC IMENOrdering Facility: [facility] [place] Address: [address] [place] [address] Performed By: #### 5 7021-8 ####[facility] LABCLIA [id number] [place] [address] Platelet mean volume (Bld) [Entitic vol] 9.9 fL Normal 9.0-12.7 [facility] Comment on above: Order Comment: Specimen Type: BLOOD SPEC IMENOrdering Facility: [facility] [place] Address: [address] [place] [address] Performed By: #### 5 7021-8 ####[facility] LABIA [id number] [place] [address] Platelets (Bld) [#/Vol] 160 10*3/uL Normal 150-400 [facility] Comment on above: Order Comment: Specimen Type: BLOOD SPEC IMENOrdering Facility: [facility] [place] Address: [address] [place] [address] Performed By: #### 5 7021-8 ####[facility] LABIA [id number] [place] [address] RBC (Bld) [#/Vol] 4.22 10*6/uL Normal 4.20-6.00 [facility] Comment on above: Order Comment: Specimen Type: BLOOD SPEC IMENOrdering Facility: [facility] [place] Address: [address] [place] [address] Performed By: #### 5 7021-8 ####[facility] LABIA [id number] [place] [address] WBC (Bld) [#/Vol] 8.84 10*3/uL Normal 3.70-11.00 [facility] Comment on above: Order Comment: Specimen Type: BLOOD SPEC IMENOrdering Facility: [facility] [place] Address: [address] [place] [address] Performed By: #### 5 7021-8 ####[facility] LABCLIA [id number] [place] [address] IMMUNOFIXATION SCREEN, SERUM on 05-15-2024 INTERPRETATION (MPA) Atypical restricted bands are present in the IgG and lambda regions. Consistent with IgG lambda monoclonal gammopathy. Normal [facility] Comment on above: Order Comment: Specimen Type: BLOOD SPEC IMENOrdering Facility: [facility] [place] Address: [address] [place] [address] Performed By: #### I FES ####[facility] LABIA [id number] [place] [address] [place] MPA RESULT M protein is present. Abnormal No M p rotein is identified. [facility] Comment on above: Order Comment: Specimen Type: BLOOD SPEC IMENOrdering Facility: [facility] [place] Address: [address] [place] [address] Performed By: #### I FES ####[facility] LABIA [id number] [place] [address] [place] STAFF REVIEW ([facility]) Reviewed by Gonzalo Haro MD, Ph.D ([id number]) Normal [facility] Comment on above: Order Comment: Specimen Type: BLOOD SPEC IMENOrdering Facility: [facility] [place] Address: [address] [place] [address] Performed By: #### I FESC ####[facility] LABIA [id number] [place] [id number] [place] IMMUNOGLOBULINS,IGG,IGA,IGMo n 05-15-2024 IgA [Mass/Vol] 50 mg/dL Low 70-400 [facility] [facility] Comment on above: Order Comment: Specimen Type: BLOOD SPEC IMENOrdering Facility: [facility] [place] Address: [address] [place] [address] Performed By: #### S ERIMM ####[facility] LABCLIA [id number] [place] [address] [place] IgG [Mass/Vol] 1119 mg/dL Normal 700-1600 [facility] Comment on above: Order Comment: Specimen Type: BLOOD SPEC IMENOrdering Facility: [facility] [place] Address: [address] [place] [address] Performed By: #### S ERIMM ####[facility] LABCLIA [id number] [place] [address] [place] IgM [Mass/Vol] 69 mg/dL Normal 40-230 [facility] Comment on above: Order Comment: Specimen Type: BLOOD SPEC IMENOrdering Facility: [facility] [place] Address: [address] [place] [address] Performed By: #### S ERIMM ####[facility] LABIA [id number] [place] [address] [place] KAPPA/LIM,FREE,SERon 2024 Immunoglobulin light chains.kappa.zaida e (S) [Mass/Vol] 23.6 mg/L High 3.3-19.4 [facility] Comment on above: Order Comment: Specimen Type: BLOOD SPEC IMENOrdering Facility: [facility] [place] Address: [address] [place] [address] Result Comment: Rare ly, increased serum free light chains levels may not be detected or accurately quantified due to prozone phenomenon or in high viscosity samples using this immunoturbidimetric assay. Correlation with other laboratory results and clinical findings is recommended. The [place] Free Light Chain was performed using the Binding Site Optilite immunoturbidimetric method. Result obtained with different assay methods or kits cannot be used interchangeably. Performed By: #### K LFRS ####[facility] LABCLIA [id number] [place] [address] [place] Immunoglobulin light chains.kappa/Imm unoglobulin light chains.lambda (S) [Mass ratio] 1.34 Normal 0.26-1.65 [facility] Comment on above: Order Comment: Specimen Type: BLOOD SPEC IMENOrdering Facility: [facility] [place] Address: [address] [place] [address] Performed By: #### K LFRS ####[facility] LABCLIA [id number] [place] [address] [place] Immunoglobulin light chains.lambda.fr ee [Mass/Vol] 17.6 mg/L Normal 5.7-26.3 [facility] Comment on above: Order Comment: Specimen Type: BLOOD SPEC IMENOrdering Facility: [facility] [place] Address: [address] [place] [address] Result Comment: Rare ly, increased serum free [...] used interchangeably. Performed By: #### K LFRS ####[facility] LABIA [id number] [place] [address] [place] PROTEIN ELECTROPHORESIS SERU M WITH FAUSTINA (P)on 05-15-2024 Albumin [Mass/Vol] 3.99 g/dL Normal 3.43-5.41 [facility] Comment on above: Order Comment: Specimen Type: BLOOD SPEC IMENOrdering Facility: [facility] [place] Address: [address] [place] [address] Performed By: #### L [id number] ####[facility] LABIA [id number] [place] [address] [place] Alpha 1 globulin Elph [Mass/Vol] 0.31 g/dL Normal 0.18-0.43 [facility] Comment on above: Order Comment: Specimen Type: BLOOD SPEC IMENOrdering Facility: [facility] [place] Address: [address] [place] [address] Performed By: #### L [id number] ####[facility] LABIA [id number] [place] [address] [place] Alpha 2 globulin Elph [Mass/Vol] 0.81 g/dL Normal 0.42-0.98 [facility] Comment on above: Order Comment: Specimen Type: BLOOD SPEC IMENOrdering Facility: [facility] [place] Address: [address] [place] [address] Performed By: #### L [id number] ####[facility] LABIA [id number] [place] [address] [place] Beta globulin Elph [Mass/Vol] 0.76 g/dL Normal 0.61-1.17 [facility] Comment on above: Order Comment: Specimen Type: BLOOD SPEC IMENOrdering Facility: [facility] [place] Address: [address] [place] [address] Performed By: #### L [id number] ####[facility] [id number] [address] [place] COMMENT (SERUM PROT ELECTRO) Monoclonal Protein analysis (immunofixation) is not indicated. Normal [facility] Comment on above: Order Comment: Specimen Type: BLOOD SPEC IMENOrdering Facility: [facility] [place] Address: [address] [place] [address] Performed By: #### L [id number] ####[facility] [id number] [place] [address] [place] Gamma globulin Elph [Mass/Vol] 1.03 g/dL Normal 0.53-1.51 [facility] Comment on above: Order Comment: Specimen Type: BLOOD SPEC IMENOrdering Facility: [facility] [place] Address: [address] [place] [address] Performed By: #### L [id number] ####[facility] [id number] [address] [place] INTERPRETATION COMMENT FOR PROTEIN ELECTROPHORESIS See separate immunofixation report for characterization of monoclonal gammopathy. Normal [facility] Comment on above: Order Comment: Specimen Type: BLOOD SPEC IMENOrdering Facility: [facility] [place] Address: [address] [place] [address] Performed By: #### L [id number] ####[facility] LABIA [id number] [address] [address] [place] M-PROTEIN LOCATION Gamma Fraction 1 Normal [facility] Comment on above: Order Comment: Specimen Type: BLOOD SPEC IMENOrdering Facility: [facility] [place] Address: [address] [place] [address] Performed By: #### L [id number] ####[facility] LABIA [id number] [address] [place] [address] [place] Protein Fractions [Interp] An M protein is identified on protein electrophoresis. Abnormal No definitive M protein is identified on protein electrophoresis. [facility] Comment on above: Order Comment: Specimen Type: BLOOD SPEC IMENOrdering Facility: [facility] [place] Address: [address] [place] [address] Performed By: #### L [id number] ####[facility] LABIA [id number] [place] [id number] [place] Protein.monoclon al Elph [Mass/Vol] 0.78 g/dL High <=0.00 [facility] Comment on above: Order Comment: Specimen Type: BLOOD SPEC IMENOrdering Facility: [facility] [place] Address: [address] [place], [place] [address] Performed By: #### L [id number] ####[facility] LABIA [id number] [place] [id number] [place] SPE STAFF REVIEW Reviewed by Gonzalo Haro MD, Ph.D ([id number]) Normal [facility] Comment on above: Order Comment: Specimen Type: BLOOD SPEC IMENOrdering Facility: [facility] [place] Address: [address] [place] [address] Performed By: #### L [id number] ####[facility] LABCLIA [id number] [place] [address] [place] Prot SerPl-mCncon 05-15-2024 Protein [Mass/Vol] 6.9 g/dL Normal 6.3-8.0 [facility] Comment on above: Order Comment: Specimen Type: BLOOD SPEC IMENOrdering Facility: [facility] [place] Address: [address] [place] [address] Performed By: #### 2 885-2 ####[facility] LABIA [id number] [place] [address] [place] [facility]-2024 Prostate specific Ag [Mass/Vol] ng/mL Normal <2.60 [facility] Comment on above: Order Comment: Specimen Type: BLOOD SPEC IMENOrdering Facility: [facility] [place] Address: [address] [place] [address] Result Comment: Tota l PSA test methodology used is the Electrochemiluminescence Immunoassay by [employer]. Total PSA values by differing methodologies cannot be interchanged. Performed By: #### 2 857-1 ####[facility] LABCLIA [id number] [place] [address] [place] XR ABDOMEN 1V [...] any questions regarding this interpretation, please call [phone]. If you are unable to reach us at the number above, please feel free to contact [facility] eRadiology at [phone]. [id number] Normal [facility] Urology Office/Clinic Noteon 03-04-2024 Urology Office/Clinic Note [...] in dark side documents dated 09/27/21 from [facility]). PSMA PET scan 10/28/22 at [facility] - Neg for mets; approx 1.5cm R [...] Urology [address], [place] [phone] Additional Instructions: Has f/u 05/20/24 w/ PSA and Eligard and KUB, also to schedule cysto Patient Education Cystosc (more content not included)... Normal [facility] Comment on above: Result Comment: Electronically Signed By : Yosef GRMIES MD\.br\Date and Time Signed: 03/04/24 10:56 EST\.br\Electronically Co-Signed By: Odette Cottrell\.br\Date and Time Co-Signed: 03/04/24 10:55 EST James 02-22-2024 L - -------- Specimen: [id number] Received: 02/23/24 Status: COLE Kay Num: [id number] Spec Type: Surgical Subm Dr: Yosef Grimes MD Tissues: A Urinary Bladder - TUR (BLADDER LESION) Procedures: HE/3, Gross/Micro L5, AE1-AE3, CK20, P53 -------- Age/ Patient Sex Location Account Attending Physician -------- Adolph Johns 78/M LABELL [id number] Yosef Grimes MD -------- SPEC NUM: [id number] RECD: 02/23/24 STATUS: COLE KAY NUM: [id number] JOSE ANGEL: 02/22/[address] [facility] [address]: Yosef Grimes MD ENTERED: 02/23/[address]: William Peterson SPEC TYPE: Surgical DEPT: LUCY SAUL ENTERED BY: [id number] RECV BY: [id number] ORDERED: HE/3, Gross/Micro L5, AE1-AE3, CK20, P53 [...] [id number] Received: 02/23/24-1220 Status: COLE Req Num: [id number] Spec Type: Surgical Subm Dr: Yosef Grimes MD Tissues: A Urinary Bladder - TUR (BLADDER LESION) Procedures: HE/3, Gross/Micro L5, AE1-AE3, CK20, P53 -------- Patient: Adolph Johns [id number] (Continued) -------- Specimen: [id number] Received: 02/23/24 (Continued) Pathological Diagnosis (Continued) Signed (signature on file) Bertha Kline MD 02/27/24 1652 -------- Specimen: [id number] Received: 02/23/24 Status: COLE Kay Num: [id number] Spec Type: Surgical Subm Dr: Yosef Grimes MD Tissues: A Urinary Bladder - TUR (BLADDER LESION) Procedures: HE/3, Gross/Micro L5, AE1-AE3, CK20, P53 -------- Patient: Adolph Johns [id number] (Continued) -------- Specimen: [id number] Received: 02/23/24-1220 (Continued) [...] urothelial layer in all fragments also show motion picture set up worker or adequate streaming maturation -AE1/3 IHC did [...] performed supporting the above interpretation CPT Codes 60807 60199 (more content not included)... Normal [facility] Heart [facility] V[facility] Office/Cl inic [...] Given Parent Or Guardian Refuses Normal [facility] Comment on above: Result Comment: Electronically Signed By : Bob ROSARIO, Meño\.arun\Date and Time Signed: 01/23/24 13:[address] UROGRAM WO/W IVCONon 12- CT UROGRAM WO/W IVCON * * *Final Report* * * DATE OF EXAM: Jan 19 2024 9:37AM [facility] 0560 - CT UROGRAM WO/W [...] Linear band of scarring right lower lobe. Cream Dumper (topogram) images: Unremarkable. IMPRESSION: Decreased size of [...] any questions regarding this interpretation, please call [phone]. If you are unable to reach us at the number above, please feel free to contact [facility] eRadiology at [phone]. [id number] N Normal [facility] Urine Cytology ([facility])on 03-17-2023 Microscopic exam Cytology (U) [Interp] Diagnosis Info Invalid Interpretation Code [facility] Comment on above: Result Comment: A:Urine,Urine:Voided Interpretation - Adequate cellularity for evaluation. CPT 10402 MicroScopic Description - Adequacy - Gross Description Site ID:A color Yellow fixative Alcohol Specimen designated Urine received in alcohol preservative and labeled with the patient???s name, consists of 50ml clear yellow fluid. Electronically signed by : on: 01/15/2024 13:14:46 Performed By: #### 1 [id number] ####[facility] [address] [place] [address] Ambulatory Visit Summaryon 03-12-2023 Ambulatory Visit Summary [...] Yosef GRIMES MD Where: [facility] [address] [place] [address] 2024 11:00 AM EDT With: Where: [facility] [address] [address]- You Need to Schedule the Following Appointments Follow Up with Yosef GRIMES MD, URL When: Where: [facility] [address] [place] [address]- Medications What How Much When Instructions Unchanged [...] these instructions at home: Medicines ??? Take gjes-gld-ydtntkt and prescription medicines only as told by your health care provider. ??? If you were prescribed an antibiotic medicine, take it as told by your health care provider. Do not stop taking the antibiotic even if you start to feel better. ??? (more content not included)... Normal [facility] Urology Office/Clinic Noteon 01-10-2024 Urology Office/Clinic Note [...] in dark side documents dated 09/27/21 from [facility]). PSMA PET scan 10/28/22 at [facility] - Neg for mets; approx 1.5cm R [...] Urol (more content not included)... Normal [facility] Comment on above: Result Comment: [...] Yosef GRIMES MD Where: [facility] [address] [address]- Monday 12:45 PM EDT With: Yosef GRIMES MD Where: [facility] [address] [place] [address] 2024 11:00 AM EDT With: Where: [facility] [address] [address]- You Need to Schedule the Following Appointments Follow Up with Yosef GRIMES MD, URL When: Where: [facility] [address], [place] [address] [phone] Medications What How Much When Instructions New ciprofloxacin (Cipro 500 mg Tab) 1 Tablets By Mouth Every day take one tab day before procedure and one tab after procedure Pickup at [facility] Unchanged abiraterone (abiraterone 250 mg oral tablet) [...] physician if questions or concerns Pharmacy Information [facility]: [address] [place], [place] [id number] [phone] Allergies oxytetracycline (Fever, Swelling at injection site) [...] (biopsy (more content not included)... Normal [facility] Urine Cytology ([facility])on 03-10-2023 Method of Extraction Voided Normal [facility] Comment on above: Performed By: #### [id number] ####[facility] [address] [place] [address] Number of Jars 1 Invalid Interpretation Code [facility] Comment on above: Performed By: #### [id number] ####[facility] [address] [place] [address] Specimen Urine Normal [facility] Comment on above: Performed By: #### [id number] ####[facility] [address] [place] [address] Type of Service Technical Only Normal [facility] Comment on above: Performed By: #### [id number] ####[facility] [address] [place] [address] Urology Office/Clinic Noteon 01-08-2024 Urology Office/Clinic Note [...] negative margins. PSMA PET scan 10/28/22 at [facility] - neg for mets; approx 1.5cm R [...] [facility] [address], [place] [phone] Additional Instructions: sched cysto Patient Education Cystoscopy Hematuria, Adult I, Odette Cottrell, personally scribed for Dr. Grimes on 01/08/2024 10:14:36. . Documentation recorded by the Odette casas (more content not included)... Normal [facility] Comment on above: Result Comment: [...] Locations R1: This test was performed at: [facility], [address] [place] [address], [address] , , [facility] Comment on above: Performed By: #### [id number] #### [facility] [address] [place] [address] Ambulatory Visit Summaryon 1 03-02-2023 Ambulatory Visit [...] Yosef GRIMES MD Where: [facility] [address] [place] [address]- Monday 12:45 PM EDT With: Yosef GRIMES MD Where: [facility] [address] [place] [address] 2024 11:00 AM EDT With: Where: [facility] [place] [address] [place] [address]- Medications What How Much When Instructions Unchanged [...] choosing us for your care. Normal [facility] CNPSharon 12-29-2023 MINDA Telephone (TREVA) ADOLPH JOHNS ([id number]) 1945 M Date Time Provider Department 12/29/23 [...] Status:Closed by PEGGY LAKHANI on 01/01/24 Normal [facility] Ambulatory Visit Summaryon 1 Ambulatory Visit Summary [...] Yosef GRIMES MD Where: [facility] [address] [place] [address] 2024 11:00 AM EDT With: Where: [facility] [address] [address]- You Need to Schedule the Following Appointments Follow Up with CORNELIO ROSARIO, Yosef Bunch, RADHA When: Where: [facility] [place] [address]- Medications What How Much When Instructions Unchanged [...] Th (more content not included)... Normal [facility] Urology Office/Clinic Noteon 11-24-2023 Urology Office/Clinic [...] negative margins. PSMA PET scan 10/28/22 at [facility] - neg for mets; approx 1.5cm R [...] Information CORNELIO ROSARIO, Yosef Bunch, URL [address] [place] [address]- Additional Instructions: 6 mos w/ PSA & [...] of (more content not included)... Normal [facility] Comment on above: Result Comment: Electronically Signed By : Yosef GRIMES MD\.br\Date and Time Signed: 11/24/23 12:43 EDT\.br\Electronically Co-Signed By: Esme Noonan.br\Date and Time Co-Signed: 11/24/23 12:36 EDT Basic metabolic 2000 panelOr dered By: Holly Díaz on 11-16-2023 Anion gap [Moles/Vol] 13 mmol/L 8 - 15 mmol/L [facility] Calcium [Mass/Vol] 10.3 mg/dL High 8.5 - 10.2 mg/dL [facility] Chloride [Moles/Vol] 102 mmol/L 98 - 107 mmol/L [facility] CO2 [Moles/Vol] 23 mmol/L 22 - 30 mmol/L [facility] Creatinine [Mass/Vol] 1.35 mg/dL High 0.73 - 1.22 mg/dL [facility] GFR/1.73 sq M.predicted among non-blacks MDRD (S/P/Bld) [Vol rate/Area] 54 mL/min/{1.73_m2} Low - PINF [facility] Comment on above: Estimated Glomerular [...] 276 mg/dL High 74 - 99 mg/dL [facility] Comment on above: The [place] Diabetes Association (ADA) provides guidance for cutoff [...] Standards of Medical Care in Diabetes 2016, [place] Diabetes Association. Diabetes Care. 2016.39(Suppl 1). Interpretation and review of laboratory results Abnormal [facility] Potassium [Moles/Vol] 4.0 mmol/L 3.7 - 5.1 mmol/L [facility] Sodium [Moles/Vol] 138 mmol/L 136 - 144 mmol/L [facility] Urea nitrogen [Mass/Vol] 22 mg/dL 9 - 24 mg/dL [facility] Basic metabolic 2000 panelon 11-16-2023 Anion gap [Moles/Vol] 13 mmol/L Normal 8-15 [facility] Comment on above: Order Comment: Specimen Type: BLOOD SPEC IMENOrdering Facility: [facility] [place] Address: [address] [place] [address] Performed By: #### 2 4321-2 ####[facility] LABCLIA [id number] [place] [address] Calcium [Mass/Vol] 10.3 mg/dL High 8.5-10.2 [facility] Comment on above: Order Comment: Specimen Type: BLOOD SPEC IMENOrdering Facility: [facility] [place] Address: [address] [place] [address] Performed By: #### 2 4321-2 ####[facility] LABCLIA [id number] [place] [address] Chloride [Moles/Vol] 102 mmol/L Normal 98-107 [facility] Comment on above: Order Comment: Specimen Type: BLOOD SPEC IMENOrdering Facility: [facility] [place] Address: [address] [place] [address] Performed By: #### 2 4321-2 ####[facility] LABCLIA [id number] [place] [address] CO2 [Moles/Vol] 23 mmol/L Normal 22-30 [facility] Comment on above: Order Comment: Specimen Type: BLOOD SPEC IMENOrdering Facility: [facility] [place] Address: [address] [place] [address] Performed By: #### 2 4321-2 ####[facility] LABCLIA [id number] [place] [address] Creatinine [Mass/Vol] 1.35 mg/dL High 0.73-1.22 [facility] Comment on above: Order Comment: Specimen Type: BLOOD SPEC IMENOrdering Facility: [facility] [place] Address: [address] [place] [address] Performed By: #### 2 4321-2 ####[facility] LABCLIA [id number] [place] [address] Creatinine and Glomerular filtration rate.predicted panel (S/P/Bld) 54 mL/min/1.73m??? Low >=60 [facility] Comment on above: Order Comment: Specimen Type: BLOOD SPEC IMENOrdering Facility: [facility] [place] Address: [address] [place] [address] Result Comment: Paty mated Glomerular Filtration Rate [...] actual GFR. Performed By: #### 2 4321-2 ####[facility] LABCLIA [id number] [place] [address] Glucose [Mass/Vol] 276 mg/dL High 74-99 [facility] Comment on above: Order Comment: Specimen Type: BLOOD SPEC IMENOrdering Facility: [facility] [place] Address: [address] [place] [address] Result Comment: The [place] Diabetes Association (ADA) provides guidance for cutoff [...] Standards of Medical Care in Diabetes 2016, [place] Diabetes Association. Diabetes Care. 2016.39(Suppl 1). Performed By: #### 2 4321-2 ####[facility] LABCLIA [id number] [place] [address] Potassium [Moles/Vol] 4.0 mmol/L Normal 3.7-5.1 [facility] Comment on above: Order Comment: Specimen Type: BLOOD SPEC IMENOrdering Facility: [facility] [place] Address: [address] [place], [place] [address] Performed By: #### 2 4321-2 ####[facility] LABCLIA [id number] [place] [address] Sodium [Moles/Vol] 138 mmol/L Normal 136-144 [facility] Comment on above: Order Comment: Specimen Type: BLOOD SPEC IMENOrdering Facility: [facility] [place] Address: [address] [place] [address] Performed By: #### 2 4321-2 ####[facility] LABCLIA [id number] [place] [address] Urea nitrogen [Mass/Vol] 22 mg/dL Normal 9-24 [facility] Comment on above: Order Comment: Specimen Type: BLOOD SPEC IMENOrdering Facility: [facility] [place] Address: [address] [place] [address] Performed By: #### 2 4321-2 ####[facility] LABCLIA [id number] [place] [address] CBC W Auto Differential pane l (Bld)on 11-16-2023 Basophils (Bld) [#/Vol] 0.03 10*3/uL [facility] Basophils/100 WBC (Bld) 0.4 % [facility] Differential cell count method Nom (Bld) Auto [facility] Eosinophils (Bld) [#/Vol] 0.08 10*3/uL [facility] Eosinophils/100 WBC (Bld) 1.0 % [facility] Erythrocyte distribution width (RBC) [Ratio] 14.6 % 11.5 - 15.0 % [facility] Hematocrit (Bld) [Volume fraction] 40.6 % 39.0 - 51.0 % [facility] Hemoglobin (Bld) [Mass/Vol] 13.7 g/dL 13.0 - 17.0 g/dL [facility] Immature granulocytes (Bld) [#/Vol] 0.12 10*3/uL High [facility] Immature granulocytes/100 WBC (Bld) 1.5 % [facility] Interpretation and review of laboratory results Abnormal [facility] Lymphocytes (Bld) [#/Vol] 0.64 10*3/uL Low [facility] Lymphocytes/100 WBC (Bld) 7.9 % [facility] MCH (RBC) [Entitic mass] 30.6 pg 26.0 - 34.0 pg [facility] MCHC (RBC) [Mass/Vol] 33.7 g/dL 30.5 - 36.0 g/dL [facility] MCV (RBC) [Entitic vol] 90.8 fL 80.0 - 100.0 fL [facility] Monocytes (Bld) [#/Vol] 0.50 10*3/uL [facility] Monocytes/100 WBC (Bld) 6.2 % [facility] Neutrophils (Bld) [#/Vol] 6.74 10*3/uL [facility] Neutrophils/100 WBC (Bld) 83.0 % [facility] Nucleated RBC (Bld) [#/Vol] [facility] Nucleated RBC/100 WBC (Bld) [Ratio] 0.0 % /100 WBC [facility] Platelet mean volume (Bld) [Entitic vol] 10.2 fL 9.0 - 12.7 fL [facility] Platelets (Bld) [#/Vol] 191 10*3/uL [facility] RBC (Bld) [#/Vol] 4.47 10*6/uL 4.20 - 6.00 m/uL [facility] WBC (Bld) [#/Vol] 8.11 10*3/uL [facility] Basophils (Bld) [#/Vol] 0.03 10*3/uL Normal <0.11 [facility] Comment on above: Order Comment: Specimen Type: BLOOD SPEC IMENOrdering Facility: [facility] [place] Address: [address] [place] [address] Performed By: #### 5 7021-8 ####[facility] LABCLIA [id number] [place] [address] Basophils/100 WBC (Bld) 0.4 % Normal [facility] Comment on above: Order Comment: Specimen Type: BLOOD SPEC IMENOrdering Facility: [facility] [place] Address: [address] [place] [address] Performed By: #### 5 7021-8 ####[facility] LABCLIA [id number] [place] [address] Differential cell count method Nom (Bld) Auto Normal [facility] Comment on above: Order Comment: Specimen Type: BLOOD SPEC IMENOrdering Facility: [facility] [place] Address: [address] [place] [address] Performed By: #### 5 7021-8 ####[facility] LABCLIA [id number] [place] [address] Eosinophils (Bld) [#/Vol] 0.08 10*3/uL Normal <0.46 [facility] Comment on above: Order Comment: Specimen Type: BLOOD SPEC IMENOrdering Facility: [facility] [place] Address: [address] [place] [address] Performed By: #### 5 7021-8 ####[facility] LABCLIA [id number] [place] [address] Eosinophils/100 WBC (Bld) 1.0 % Normal [facility] Comment on above: Order Comment: Specimen Type: BLOOD SPEC IMENOrdering Facility: [facility] [place] Address: [address] [place] [address] Performed By: #### 5 7021-8 ####[facility] LABCLIA [id number] [place] [address] Erythrocyte distribution width (RBC) [Ratio] 14.6 % Normal 11.5-15.0 [facility] Comment on above: Order Comment: Specimen Type: BLOOD SPEC IMENOrdering Facility: [facility] [place] Address: [address] [place] [address] Performed By: #### 5 7021-8 ####[facility] LABCLIA [id number] [place] [address] Hematocrit (Bld) [Volume fraction] 40.6 % Normal 39.0-51.0 [facility] Comment on above: Order Comment: Specimen Type: BLOOD SPEC IMENOrdering Facility: [facility] [place] Address: [address] [place] [address] Performed By: #### 5 7021-8 ####[facility] LABCLIA [id number] [place] [address] Hemoglobin (Bld) [Mass/Vol] 13.7 g/dL Normal 13.0-17.0 [facility] Comment on above: Order Comment: Specimen Type: BLOOD SPEC IMENOrdering Facility: [facility] [place] Address: [address] [place] [address] Performed By: #### 5 7021-8 ####[facility] LABCLIA [id number] [place] [address] Immature granulocytes (Bld) [#/Vol] 0.12 10*3/uL High <0.10 [facility] Comment on above: Order Comment: Specimen Type: BLOOD SPEC IMENOrdering Facility: [facility] [place] Address: [address] [place] [address] Performed By: #### 5 7021-8 ####[facility] LABCLIA [id number] [place] [address] Immature granulocytes/100 WBC (Bld) 1.5 % Normal [facility] Comment on above: Order Comment: Specimen Type: BLOOD SPEC IMENOrdering Facility: [facility] [place] Address: [address] [place] [address] Performed By: #### 5 7021-8 ####[facility] LABCLIA [id number] [place] [address] Lymphocytes (Bld) [#/Vol] 0.64 10*3/uL Low 1.00-4.00 [facility] Comment on above: Order Comment: Specimen Type: BLOOD SPEC IMENOrdering Facility: [facility] [place] Address: [address] [place] [address] Performed By: #### 5 7021-8 ####[facility] LABCLIA [id number] [place] [address] Lymphocytes/100 WBC (Bld) 7.9 % Normal [facility] Comment on above: Order Comment: Specimen Type: BLOOD SPEC IMENOrdering Facility: [facility] [place] Address: [address] [place] [address] Performed By: #### 5 7021-8 ####[facility] LABCLIA [id number] [place] [address] MCH (RBC) [Entitic mass] 30.6 pg Normal 26.0-34.0 [facility] Comment on above: Order Comment: Specimen Type: BLOOD SPEC IMENOrdering Facility: [facility] [place] Address: [address] [place] [address] Performed By: #### 5 7021-8 ####[facility] LABIA [id number] [place] [address] MCHC (RBC) [Mass/Vol] 33.7 g/dL Normal 30.5-36.0 [facility] Comment on above: Order Comment: Specimen Type: BLOOD SPEC IMENOrdering Facility: [facility] [place] Address: [address] [place] [address] Performed By: #### 5 7021-8 ####[facility] LABIA [id number] [place] [address] MCV (RBC) [Entitic vol] 90.8 fL Normal 80.0-100.0 [facility] Comment on above: Order Comment: Specimen Type: BLOOD SPEC IMENOrdering Facility: [facility] [place] Address: [address] [place] [address] Performed By: #### 5 7021-8 ####[facility] LABIA [id number] [place] [address] Monocytes (Bld) [#/Vol] 0.50 10*3/uL Normal <0.87 [facility] Comment on above: Order Comment: Specimen Type: BLOOD SPEC IMENOrdering Facility: [facility] [place] Address: [address] [place] [address] Performed By: #### 5 7021-8 ####[facility] LABCLIA [id number] [place] [address] Monocytes/100 WBC (Bld) 6.2 % Normal [facility] Comment on above: Order Comment: Specimen Type: BLOOD SPEC IMENOrdering Facility: [facility] [place] Address: [address] [place] [address] Performed By: #### 5 7021-8 ####[facility] LABCLIA [id number] [place] [address] Neutrophils (Bld) [#/Vol] 6.74 10*3/uL Normal 1.45-7.50 [facility] Comment on above: Order Comment: Specimen Type: BLOOD SPEC IMENOrdering Facility: [facility] [place] Address: [address] [place] [address] Performed By: #### 5 7021-8 ####[facility] LABCLIA [id number] [place] [address] Neutrophils/100 WBC (Bld) 83.0 % Normal [facility] Comment on above: Order Comment: Specimen Type: BLOOD SPEC IMENOrdering Facility: [facility] [place] Address: [address] [place] [address] Performed By: #### 5 7021-8 ####[facility] LABCLIA [id number] [place] [address] Nucleated RBC (Bld) [#/Vol] 10*3/uL Normal <0.01 [facility] Comment on above: Order Comment: Specimen Type: BLOOD SPEC IMENOrdering Facility: [facility] [place] Address: [address] [place] [address] Performed By: #### 5 7021-8 ####[facility] LABCLIA [id number] [place] [address] Nucleated RBC/100 WBC (Bld) [Ratio] 0.0 /100 WBC Normal [facility] Comment on above: Order Comment: Specimen Type: BLOOD SPEC IMENOrdering Facility: [facility] [place] Address: [address] [place] [address] Performed By: #### 5 7021-8 ####[facility] LABCLIA [id number] [place] [address] Platelet mean volume (Bld) [Entitic vol] 10.2 fL Normal 9.0-12.7 [facility] Comment on above: Order Comment: Specimen Type: BLOOD SPEC IMENOrdering Facility: [facility] [place] Address: [address] [place] [address] Performed By: #### 5 7021-8 ####[facility] LABIA [id number] [place] [address] Platelets (Bld) [#/Vol] 191 10*3/uL Normal 150-400 [facility] Comment on above: Order Comment: Specimen Type: BLOOD SPEC IMENOrdering Facility: [facility] [place] Address: [address] [place] [address] Performed By: #### 5 7021-8 ####[facility] LABIA [id number] [place] [address] RBC (Bld) [#/Vol] 4.47 10*6/uL Normal 4.20-6.00 [facility] Comment on above: Order Comment: Specimen Type: BLOOD SPEC IMENOrdering Facility: [facility] [place] Address: [address] [place] [address] Performed By: #### 5 7021-8 ####[facility] LABIA [id number] [place] [address] WBC (Bld) [#/Vol] 8.11 10*3/uL Normal 3.70-11.00 [facility] Comment on above: Order Comment: Specimen Type: BLOOD SPEC IMENOrdering Facility: [facility] [place] Address: [address], [place] [address] Performed By: #### 5 7021-8 ####[facility] LABIA [id number] [place] [address] CNOVon 11-16-2023 CNOV Office Visit (RADTSA ) ADOLPH JOHNS ([id number]) 1945 M Date Time Provider Department 11/16/23 [...] MD cc: Shahriar Stephenson [address] [place] [address] No referring provider defined for this encounter. Allergies As of Date: 11/16/2023 Noted Allergy Reaction PENICILLINS 10/22/2019 2 - Rash 7 - Swelling TERAMYCIN (OXYTETRACYCLINE) 10/22/2019 16 - Unknown Date Reviewed: 11/16/2023 Reviewed by: Bettina Sargent MA - Fully Assessed Reason for Visit: Prostate Cancer [590] Primary Visit Diagnosis:Malignant neoplasm of prostate (HCC) [C61] Order(s):PROSTATE-SPE CIFIC ANTIGEN DIAGNOSTIC [SQPSA] Order #: [id number] FUTURE Prescriptions as of 11/24/2023 - abiraterone [...] 01/16/2023 Visit Notes: >> Peggy Lakhani RN [facility] Nov 16, 2023 2:14 PM Status: Signed AUA 6 Peggy Lakhani RN Disposition: Return in about 6 months (around 05/16/2024). Follow-up and Disposition History for Encounter Date Provider Department Center 11/16/2023 [id number] KUMARI [employer] Encounter Status:Closed by David KUMARI on 11/24/23 [facility] CNOVSPon 11-16-2023 CNOVSP Visit (SP) Office (HEMASA) ADOLPH JOHNS ([id number]) 1945 M Date Time Provider Department 11/16/23 [...] with urination. He plans to travel to [place] next week where he plans to spend [...] or petechiae. PATHOLOGY: 11/10/2022 Bladder tumor, TURBT ([facility]) Metastatic poorly differentiated adenocarcinoma, consistent with [...] nodes BONES/SOFT (more content not included)... Normal [facility] IMMUNOFIXATION SCREEN, SERUM on 11-16-2023 INTERPRETATION (MPA) Atypical restricted bands are present in the IgG and lambda regions. Consistent with IgG lambda monoclonal gammopathy. Normal [facility] Comment on above: Order Comment: Specimen Type: BLOOD SPEC IMENOrdering Facility: [facility] [place] Address: [address] [place] [address] Performed By: #### I FESC ####[facility] LABCLIA [id number] [address] [place] MPA RESULT M protein is present. Abnormal No M p rotein is identified. [facility] Comment on above: Order Comment: Specimen Type: BLOOD SPEC IMENOrdering Facility: [facility] [place] Address: [address] [place] [address] Performed By: #### I FESC ####[facility] LABCLIA [id number] [address] [place] STAFF REVIEW (MPA) Reviewed by Therese Junior MD Normal [facility] Comment on above: Order Comment: Specimen Type: BLOOD SPEC IMENOrdering Facility: [facility] [place] Address: [address] [place] [address] Performed By: #### I FESC ####[facility] LABCLIA [id number] [place] [address] [place] IMMUNOGLOBULINS,IGG,IGA,IGMo n 11-16-2023 IgA [Mass/Vol] 55 mg/dL Low 70-400 [facility] Comment on above: Order Comment: Specimen Type: BLOOD SPEC IMENOrdering Facility: [facility] [place] Address: [address] [place] [address] Performed By: #### S ERIMM ####[facility] LABCLIA [id number] [place] [address] [place] IgG [Mass/Vol] 1242 mg/dL Normal 700-1600 [facility] Comment on above: Order Comment: Specimen Type: BLOOD SPEC IMENOrdering Facility: [facility] [place] Address: [address] [place] [address] Performed By: #### S ERIMM ####[facility] LABCLIA [id number] [place] [address] [place] IgM [Mass/Vol] 72 mg/dL Normal 40-230 [facility] Comment on above: Order Comment: Specimen Type: BLOOD SPEC IMENOrdering Facility: [facility] [place] Address: [address] [place] [address] Performed By: #### S ERIMM ####[facility] LABCLIA [id number] [place] [address] [place] KAPPA/LIM,FREE,SERon 2023 Immunoglobulin light chains.kappa.zaida e (S) [Mass/Vol] 25.0 mg/L High 3.3-19.4 [facility] Comment on above: Order Comment: Specimen Type: BLOOD SPEC IMENOrdering Facility: [facility] [place] Address: [address] [place] [address] Result Comment: Rare ly, increased serum free light chains levels may not be detected or accurately quantified due to prozone phenomenon or in high viscosity samples using this immunoturbidimetric assay. Correlation with other laboratory results and clinical findings is recommended. The [place] Free Light Chain was performed using the Binding Site Optilite immunoturbidimetric method. Result obtained with different assay methods or kits cannot be used interchangeably. Performed By: #### K LFRS ####[facility] LABIA [id number] [place] [address] [place] Immunoglobulin light chains.kappa/Imm unoglobulin light chains.lambda (S) [Mass ratio] 1.45 Normal 0.26-1.65 [facility] Comment on above: Order Comment: Specimen Type: BLOOD SPEC IMENOrdering Facility: [facility] [place] Address: [address] [place] [address] Performed By: #### K LFRS ####[facility] [id number] [address] [place] Immunoglobulin light chains.lambda.fr ee [Mass/Vol] 17.2 mg/L Normal 5.7-26.3 [facility] Comment on above: Order Comment: Specimen Type: BLOOD SPEC IMENOrdering Facility: [facility] [place] Address: [address] [place] [address] Result Comment: Rare ly, increased serum free [...] used interchangeably. Performed By: #### K LFRS ####[facility] LABIA [id number] [place] [address] [place] PROTEIN ELECTROPHORESIS SERU M WITH FAUSTINA (P)on 11-16-2023 Albumin [Mass/Vol] 4.23 g/dL Normal 3.43-5.41 [facility] Comment on above: Order Comment: Specimen Type: BLOOD SPEC IMENOrdering Facility: [facility] [place] Address: [address] [place] [address] Performed By: #### L [id number] ####[facility] LABIA [id number] [place] [address] [place] Alpha 1 globulin Elph [Mass/Vol] 0.32 g/dL Normal 0.18-0.43 [facility] Comment on above: Order Comment: Specimen Type: BLOOD SPEC IMENOrdering Facility: [facility] [place] Address: [address] [place] [address] Performed By: #### L [id number] ####[facility] LABIA [id number] [place] [address] [place] Alpha 2 globulin Elph [Mass/Vol] 0.80 g/dL Normal 0.42-0.98 [facility] Comment on above: Order Comment: Specimen Type: BLOOD SPEC IMENOrdering Facility: [facility] [place] Address: [address] [place] [address] Performed By: #### L [id number] ####[facility] [id number] [place] [address] [place] Beta globulin Elph [Mass/Vol] 0.77 g/dL Normal 0.61-1.17 [facility] Comment on above: Order Comment: Specimen Type: BLOOD SPEC IMENOrdering Facility: [facility] [place] Address: [address] [place] [address] Performed By: #### L [id number] ####[facility] [id number] [place] [address] [place] COMMENT (SERUM PROT ELECTRO) Monoclonal Protein analysis (immunofixation) is not indicated. Normal [facility] Comment on above: Order Comment: Specimen Type: BLOOD SPEC IMENOrdering Facility: [facility] [place] Address: [address] [place] [address] Performed By: #### L [id number] ####[facility] LABIA [id number] [place] [address] [place] Gamma globulin Elph [Mass/Vol] 1.18 g/dL Normal 0.53-1.51 [facility] Comment on above: Order Comment: Specimen Type: BLOOD SPEC IMENOrdering Facility: [facility] [place] Address: [address] [place] [address] Performed By: #### L [id number] ####[facility] LABIA [id number] [place] [address] [place] INTERPRETATION COMMENT FOR PROTEIN ELECTROPHORESIS See separate immunofixation report for characterization of monoclonal gammopathy. Normal [facility] Comment on above: Order Comment: Specimen Type: BLOOD SPEC IMENOrdering Facility: [facility] [place] Address: [address] [place] [address] Performed By: #### L [id number] ####[facility] LABIA [id number] [address] [place] M-PROTEIN LOCATION Gamma Fraction 1 Normal [facility] Comment on above: Order Comment: Specimen Type: BLOOD SPEC IMENOrdering Facility: [facility] [place] Address: [address] [place] [address] Performed By: #### L [id number] ####[facility] LABIA [id number] [place] [address] [place] Protein Fractions [Interp] An M protein is identified on protein electrophoresis. Abnormal No definitive M protein is identified on protein electrophoresis. [facility] Comment on above: Order Comment: Specimen Type: BLOOD SPEC IMENOrdering Facility: [facility] [place] Address: [address] [place] [address] Performed By: #### L [id number] ####[facility] LABIA [id number] [place] [address] [place] Protein.monoclon al Elph [Mass/Vol] 0.73 g/dL High <=0.00 [facility] Comment on above: Order Comment: Specimen Type: BLOOD SPEC IMENOrdering Facility: [facility] [place] Address: [address] [place] [address] Performed By: #### L [id number] ####[facility] LABCLIA [id number] [place] [id number] [place] SPE STAFF REVIEW Reviewed by Therese Junior MD Normal [facility] Comment on above: Order Comment: Specimen Type: BLOOD SPEC IMENOrdering Facility: [facility] [place] Address: [address] [place] [address] Performed By: #### L [id number] ####[facility] LABCLIA [id number] [place] [id number] [place] Prot SerPl-mCncon 11-16-2023 Protein [Mass/Vol] 7.3 g/dL Normal 6.3-8.0 [facility] Comment on above: Order Comment: Specimen Type: BLOOD SPEC IMENOrdering Facility: [facility] [place] Address: [address] [place] [address] Performed By: #### 2 885-2 ####[facility] LABCLIA [id number] [place] [address] [place] Lipid 1996 panelon 4 Cholesterol [Mass/Vol] 167 mg/dL Normal <200 [facility] Comment on above: Order Comment: Specimen Type: BLOOD SPEC IMENOrdering Facility: External Submitter Address: , , Result Comment: <200 mg/dL, Desirable 200-239 mg/dL, Borderline high >239 mg/dL, High Performed By: #### 2 4331-1 ####[facility] LABCLIA [id number] [place] [id number] [facility] LABCLIA [id number] [place] [address] Cholesterol in HDL [Mass/Vol] 37 mg/dL Low >39 [facility] Comment on above: Order Comment: Specimen Type: BLOOD SPEC IMENOrdering Facility: External Submitter Address: , , Result Comment: 40-5 9 mg/dL, Acceptable >59 mg/dL, High: Negative risk factor for coronary heart disease <40 mg/dL, Low: Positive risk factor for coronary heart disease Performed By: #### 2 4331-1 ####[facility] LABCLIA [id number] [address] [place] [address] LABCLIA [id number] [place] [address] Cholesterol in LDL [Mass/Vol] 59 mg/dL Normal <100 [facility] Comment on above: Order Comment: Specimen Type: BLOOD SPEC IMENOrdering Facility: External Submitter Address: , , Result Comment: <100 mg/dL, Optimal 100-129 mg/dL, Near optimal/above optimal 130-159 mg/dL, Borderline high 160-189 mg/dL, High >189 mg/dL, Very high Secondary prevention optimal LDL Cholesterol levels are recommended to be < 70 mg/dL Performed By: #### 2 4331-1 ####[facility] LABCLIA [id number] [address] LABCLIA [id number] [place] [address] Cholesterol in LDL/Cholesterol in HDL [Mass ratio] 1.59 {ratio} Normal <2.54 [facility] Comment on above: Order Comment: Specimen Type: BLOOD SPEC IMENOrdering Facility: External Submitter Address: , , Result Comment: Refe rence: 1. National Cholesterol Education Program ATP III Guideline At-A-Glance Quick Desk Reference: National Heart, Lung, and Blood [place]. National Institutes of Health. 2001: NIH Publication No. 01-3305. 2. An International Atherosclerosis Society position paper: global recommendations for the management of dyslipidemia: executive summary, Atherosclerosis. 2014: 232(2):410-413. Performed By: #### 2 4331-1 ####[facility] LABCLIA [id number] [address] LABCLIA [id number] [place] [address] Cholesterol in VLDL [Mass/Vol] 71 mg/dL High <30 [facility] Comment on above: Order Comment: Specimen Type: BLOOD SPEC IMENOrdering Facility: External Submitter Address: , , Performed By: #### 2 4331-1 ####[facility] LABCLIA [id number] [address] LABCLIA [id number] [place] [address] Cholesterol non HDL [Mass/Vol] 130 mg/dL High <130 [facility] Comment on above: Order Comment: Specimen Type: BLOOD SPEC IMENOrdering Facility: External Submitter Address: , , Result Comment: <130 mg/dL, Optimal 130-159 mg/dL, Near optimal/above optimal 160-189 mg/dL, Borderline high 190-219 mg/dL, High >219 mg/dL, Very high Secondary prevention optimal non HDL Cholesterol levels are recommended to be <100 mg/dL Performed By: #### 2 4331-1 ####[facility] LABCLIA [id number] [address] LABCLIA [id number] [place] [id number] Cholesterol.tota l/Cholesterol in HDL [Mass ratio] 4.51 {ratio} Normal <5.10 [facility] Comment on above: Order Comment: Specimen Type: BLOOD SPEC IMENOrdering Facility: External Submitter Address: , , Performed By: #### 2 4331-1 ####[facility] LABCLIA [id number] [address] LABCLIA [id number] [place] [address] FASTING TIME 2 hrs Normal [facility] Comment on above: Order Comment: Specimen Type: BLOOD SPEC IMENOrdering Facility: External Submitter Address: , , Result Comment: nonf asting Performed By: #### 2 4331-1 ####[facility] LABCLIA [id number] [address] [address] [facility] LABCLIA [id number] [place] [address] Triglyceride [Mass/Vol] 357 mg/dL High <150 [facility] Comment on above: Order Comment: Specimen Type: BLOOD SPEC IMENOrdering Facility: External Submitter Address: , , Result Comment: <150 mg/dL, Normal 150-199 mg/dL, Borderline high 200-499 mg/dL, High >499 mg/dL, Very high Performed By: #### 2 4331-1 ####[facility] LABCLIA [id number] [address] LABCLIA [id number] [place] [address] PSA [facility] 11-09-2023 Prostate specific Ag [Mass/Vol] ng/mL Normal <2.60 [facility] Comment on above: Order Comment: Specimen Type: BLOOD SPEC IMENOrdering Facility: [facility] Address: [address] [place] [address] Result Comment: Jeremi mart PSA test methodology used is the Electrochemiluminescence Immunoassay by [employer]. Total PSA values by differing methodologies cannot be interchanged. Performed By: #### 2 857-1 ####[facility] LABCLIA [id number] [address] [facility] Ambulatory Visit Summaryon 0 10-24-2023 Ambulatory [...] ROSARIO, Yosef Bunch Where: [facility] [address] [place] [address] 2024 11:00 AM EDT With: Where: [facility] [address] [address]- Medications What How Much When Instructions Unchanged [...] call (more content not included)... Normal [facility] Family Medicine Office/Clini c Noteon 10-24-2023 Family [...] [place] Advance Directives reviewed. Documents remain at home/embedded case manager's office, encouraged to bring in for scanning [...] order and will have them drawn at [facility] per his request. No concerns [...] retropu (more content not included)... Normal [facility] Comment on above: Result Comment: [...] Appointments Monday 1:00 PM EDT With: Where: [facility] [address] [address]- Monday 11:00 AM EDT With: CORNELIO ROSARIO, Yosef Bunch Where: [facility] [address] [place] [address]- Medications What How Much When Instructions Unchanged [...] choosing us for your care. Normal [facility] Medicine Office/Clini c Noteon 09-27-2023 Family [...] for 90 day(s), 90 tab(s), Refill(s) 3, [facility], 185, cm, 09/27/23 11:20:00 EDT, Height/Length Dosing, 116, kg, 09/27/23 11:20:00 EDT, Weight Dosing hydrochlorothiazide-l isinopril, 1 tab(s), Oral, Daily, 30 tab(s), Refill(s) 0, [facility], 190, cm, 05/22/23 11:33:00 EDT, [...] Cancer - unknown origin: Father. Hypertension: Mother. [facility] Comment on above: Result Comment: Electronically Signed By : Shilpa Naylor\.arun\Date and Time Signed: 09/27/23 12:26 EDT Consultation Noteon 05-29-19 Consultation Note [id number] .00TIFF [facility] Consultation Noteon 05-26-19 Consultation Note [id number] .00TIFF [facility] Ambulatory Visit Summaryon 0 05-22-2023 Ambulatory Visit [...] 1:00 PM EDT With: Where: [facility] [address] [place] [address] [place] [address]- \.br\ You Need to Schedule the Following Appointments\.br\ Follow Up with CORNELIO ROSARIO, Yosef Bunch, URL When: \.br\ Comments:\.br\ 6 mos w/ PSA (gets level from [facility])\.br\ Where:\.br\ [facility] [address], [place]\.br\ [place] [address]-\.br\ [phone]\.br\ Medications\.br\ What How Much When Instructions\.br\ Unchanged [...] Where to find more information\.br\ ? \.br\ [place] Cancer Society: www.cancer.org\.br\ ? \.br\ National Cancer [place]: www.cancer.gov\.br\ Contact a health care provider if:\.br\ [...] half of your body.\.br\ ? \.br\ [facility] Patient Educationon 05-22-19 24 Patient Education Oncology [...] cancer. Where to find more information ? [place] Cancer Society: www.cancer.org ? National Cancer [place]: www.cancer.gov Contact a health care provider if: [...] emergenc (more content not included)... Normal [facility] Urology Office/Clinic Noteon 05-22-2023 Urology Office/Clinic Note [...] - <0.02 PSMA PET scan 10/28/22 at [facility] - neg for mets; approx 1.5cm R [...] Bunch, URL [facility] [address] [place] [phone] Additional Instructions: 6 mos w/ PSA (gets [...] 5 mg Tab (more content not included)... [facility] Comment on above: Result Comment: Electronically Signed By : Yosef GRIMES MD\.br\Date and Time Signed: 05/22/23 12:03 EDT\.br\Electronically Co-Signed By: Odette Cottrell.br\Date and Time Co-Signed: 05/22/23 12:01 EDT Pre-Certification Formon Pre-Certificatio n Form [id number] .00TIFF [facility] CBC W Auto Differential pane l (Bld)on 01-05-2023 Basophils (Bld) [#/Vol] <0.11 k/uL [facility] Basophils/100 WBC (Bld) 0.3 % [facility] Differential cell count method Nom (Bld) Auto [facility] Eosinophils (Bld) [#/Vol] 0.09 10*3/uL <0.46 k/uL [facility] Eosinophils/100 WBC (Bld) 1.1 % [facility] Erythrocyte distribution width (RBC) [Ratio] 14.9 % 11.5 - 15.0 % [facility] Hematocrit (Bld) [Volume fraction] 44.5 % 39.0 - 51.0 % [facility] Hemoglobin (Bld) [Mass/Vol] 15.0 g/dL 13.0 - 17.0 g/dL [facility] Immature granulocytes (Bld) [#/Vol] 0.08 10*3/uL <0.10 k/uL [facility] Immature granulocytes/100 WBC (Bld) 1.0 % [facility] Lymphocytes (Bld) [#/Vol] 0.45 10*3/uL Low 1.00 - 4.00 k/uL [facility] Lymphocytes/100 WBC (Bld) 5.6 % [facility] MCH (RBC) [Entitic mass] 29.1 pg 26.0 - 34.0 pg [facility] MCHC (RBC) [Mass/Vol] 33.7 g/dL 30.5 - 36.0 g/dL [facility] MCV (RBC) [Entitic vol] 86.2 fL 80.0 - 100.0 fL [facility] Monocytes (Bld) [#/Vol] 0.66 10*3/uL <0.87 k/uL [facility] Monocytes/100 WBC (Bld) 8.3 % [facility] Neutrophils (Bld) [#/Vol] 6.67 10*3/uL 1.45 - 7.50 k/uL [facility] Neutrophils/100 WBC (Bld) 83.7 % [facility] Nucleated RBC (Bld) [#/Vol] <0.01 k/uL [facility] Nucleated RBC/100 WBC (Bld) [Ratio] 0.0 /100 WBC [facility] Platelet mean volume (Bld) [Entitic vol] 10.1 fL 9.0 - 12.7 fL [facility] Platelets (Bld) [#/Vol] 100 10*3/uL Low 150 - 400 k/uL [facility] RBC (Bld) [#/Vol] 5.16 10*6/uL 4.20 - 6.00 m/uL [facility] WBC (Bld) [#/Vol] 7.97 10*3/uL 3.70 - 11.00 k/uL [facility] Comprehensive metabolic 2000 panelon 01-05-2023 Albumin [Mass/Vol] 4.8 g/dL 3.9 - 4.9 g/dL [facility] ALP [Catalytic activity/Vol] 50 U/L 38 - 113 U/L [facility] ALT [Catalytic activity/Vol] 9 U/L Low 10 - 54 U/L [facility] Anion gap [Moles/Vol] 12 mmol/L 9 - 18 mmol/L [facility] AST [Catalytic activity/Vol] 14 U/L 14 - 40 U/L [facility] Bilirubin [Mass/Vol] 0.8 mg/dL 0.2 - 1.3 mg/dL [facility] Calcium [Mass/Vol] 10.5 mg/dL High 8.5 - 10.2 mg/dL [facility] Chloride [Moles/Vol] 103 mmol/L 97 - 105 mmol/L [facility] CO2 [Moles/Vol] 24 mmol/L 22 - 30 mmol/L [facility] Creatinine [Mass/Vol] 1.33 mg/dL High 0.73 - 1.22 mg/dL [facility] Estimated Glomerular Filtration Rate 55 mL/min/1.73m Low >=60 mL/min/1.73m [facility] Glucose [Mass/Vol] 112 mg/dL High 74 - 99 mg/dL [facility] Potassium [Moles/Vol] 3.1 mmol/L Low 3.7 - 5.1 mmol/L [facility] Protein [Mass/Vol] 7.8 g/dL 6.3 - 8.0 g/dL [facility] Sodium [Moles/Vol] 139 mmol/L 136 - 144 mmol/L [facility] Urea nitrogen [Mass/Vol] 28 mg/dL High 9 - 24 mg/dL [facility] CBC W Auto Differential pane l (Bld)on 12-22-2022 Basophils (Bld) [#/Vol] <0.11 k/uL [facility] Basophils/100 WBC (Bld) 0.2 % [facility] Differential cell count method Nom (Bld) Auto [facility] Eosinophils (Bld) [#/Vol] 0.09 10*3/uL <0.46 k/uL [facility] Eosinophils/100 WBC (Bld) 1.0 % [facility] Erythrocyte distribution width (RBC) [Ratio] 14.7 % 11.5 - 15.0 % [facility] Hematocrit (Bld) [Volume fraction] 45.5 % 39.0 - 51.0 % [facility] Hemoglobin (Bld) [Mass/Vol] 15.2 g/dL 13.0 - 17.0 g/dL [facility] Immature granulocytes (Bld) [#/Vol] 0.10 10*3/uL High <0.10 k/uL [facility] Immature granulocytes/100 WBC (Bld) 1.1 % [facility] Lymphocytes (Bld) [#/Vol] 1.02 10*3/uL 1.00 - 4.00 k/uL [facility] Lymphocytes/100 WBC (Bld) 11.0 % [facility] MCH (RBC) [Entitic mass] 29.0 pg 26.0 - 34.0 pg [facility] MCHC (RBC) [Mass/Vol] 33.4 g/dL 30.5 - 36.0 g/dL [facility] MCV (RBC) [Entitic vol] 86.7 fL 80.0 - 100.0 fL [facility] Monocytes (Bld) [#/Vol] 0.74 10*3/uL <0.87 k/uL [facility] Monocytes/100 WBC (Bld) 8.0 % [facility] Neutrophils (Bld) [#/Vol] 7.31 10*3/uL 1.45 - 7.50 k/uL [facility] Neutrophils/100 WBC (Bld) 78.7 % [facility] Nucleated RBC (Bld) [#/Vol] <0.01 k/uL [facility] Nucleated RBC/100 WBC (Bld) [Ratio] 0.0 /100 WBC [facility] Platelet mean volume (Bld) [Entitic vol] 9.8 fL 9.0 - 12.7 fL [facility] Platelets (Bld) [#/Vol] 166 10*3/uL 150 - 400 k/uL [facility] RBC (Bld) [#/Vol] 5.25 10*6/uL 4.20 - 6.00 m/uL [facility] WBC (Bld) [#/Vol] 9.28 10*3/uL 3.70 - 11.00 k/uL [facility] MRI PROSTATE WO/W IVCONon [facility] Urinalysis - AUTOMATEDon Appearance (U) CLEAR [employer] Other Bilirubin Ql (U) Negative [employer] Other Color (U) YELLOW [employer] Other Glucose Ql (U) Negative [employer] Other Hemoglobin Ql (U) TRACE INTACT [employer] Other Ketones Ql (U) Negative [employer] Other Leukocyte esterase Test strip Ql (U) Negative [employer] Other Nitrite Ql (U) Negative [employer] Other pH (U) 5.5 [pH] [employer] Other Protein Ql (U) 100 [employer] Other Specific gravity (U) [Rel density] 1.025 [employer] Other Urobilinogen (U) [Mass/Vol] 0.2 mg/dL [employer] Other Urinalysis - AUTOMATED [employer] Other Urine Cultureon 10-09-2022 Bacteria identified Cx Nom (U) [employer] Other PTH INTACTon 10-14-2021 PTH, Intact 25 pg/mL Normal 15-65 [facility] Comment on above: Performed By: #### PTHINT #### [facility] [address] [place] [address] Dr. Brenda Kline VIT D 25-OH LABCORPon 2021 Vitamin D, 25-Hydroxy 36.7 ng/mL Normal 30.0-100.0 [facility] Comment on above: Result Comment: Vitamin D deficiency has been defined by the [place] of Medicine and an Endocrine Society practice guideline as a level of serum 25-OH vitamin D less than 20 ng/mL (1,2). The Endocrine Society went on to further define vitamin D insufficiency as a level between 21 and 29 ng/mL (2). 1. IOM ([place] of Medicine). 2010. Dietary reference intakes for calcium and D. [place]: The National Academies Press. 2. Daniel MF, Tiarra NC, Dago PERRY, et al. Evaluation, treatment, and prevention of vitamin D deficiency: an Endocrine Society clinical practice guideline. JCEM. 2010; 96(7):1911-30. Performed By: #### V ITADLC ####[facility] [id number] [place] [address]Dr. Brenda Kline HEMOGRAM AND PLATELon 2021 Hematocrit (Bld) [Volume fraction] 50.0 % Normal 42.0-54.0 [facility] Comment on above: Performed By: #### HH #### [facility] [address] [place] [address] [address] Brenda Kline Hemoglobin (Bld) [Mass/Vol] 16.3 g/dL Normal 14.0-18.0 [facility] Comment on above: Performed By: #### HH #### [facility] [address] [place] [address] [address] Brenda Kline MCH (RBC) [Entitic mass] 29.1 pg Normal 25.9-34.0 [facility] Comment on above: Performed By: #### HH #### [facility] [address] [place] [address] [address] Brenda Kline MCHC (RBC) [Mass/Vol] 32.6 g/dL Normal 29.9-35.2 [facility] Comment on above: Performed By: #### HH #### [facility] [address] [place] [address] [address] Brenda Kline MCV (RBC) [Entitic vol] 89.3 fL Normal 80.0-94.0 [facility] Comment on above: Performed By: #### HH #### [facility] [address] [place] [address] [address] Brenda Kline PLT 197 103/ul Normal 150-450 [facility] Comment on above: Performed By: #### HH #### [facility] [address] [place] [address] [address] Brenda Kline RBC 5.60 106/ul Normal 4.70-6.10 [facility] Comment on above: Performed By: #### HH #### [facility] [address] [place] [address] [address] Brenda Kline WBC 7.9 103/ul Normal 4.0-11.0 [facility] Comment on above: Performed By: #### HH #### [facility] [address] [place] [address] [address] Brenda Kline MAGNESIUMon 10-13-2021 Magnesium [Mass/Vol] 2.1 mg/dL Normal 1.8-2.4 [facility] Comment on above: Performed By: #### RENAL, MG, URIC ####[facility] [id number] [place] [address]Dr. Brenda Kline RENAL FUNCTION PANELon 10-13 Albumin [Mass/Vol] 4.1 g/dL Normal 3.4-5.0 [facility] Comment on above: Performed By: #### RENAL, MG, URIC #### [facility] [address] [place] [address] Dr. Brenda Kline Calcium [Mass/Vol] 9.6 mg/dL Normal 8.5-10.1 [facility] Comment on above: Performed By: #### RENAL, MG, URIC #### [facility] [address] [place] [address] Dr. Brenda Kline Chloride [Moles/Vol] 103 mmol/L Normal 98-107 [facility] Comment on above: Performed By: #### RENAL, MG, URIC #### [facility] [address] [place] [address] [address] Brenda Kline CO2 [Moles/Vol] 27.2 mmol/L Normal 21.0-32.0 [facility] Comment on above: Performed By: #### RENAL, MG, URIC #### [facility] [address] [place] [address] [address] Brenda Kline Creatinine [Mass/Vol] 1.68 mg/dL Critically high 0.70-1.30 [facility] Comment on above: Performed By: #### RENAL, MG, URIC #### [facility] [address] [place] [address] Dr. Brenda Kline EGFR-AF [place] 49 mL/min/1.73m2 Critically low >=60 [facility] Comment on above: Performed By: #### RENAL, MG, URIC #### [facility] [address] [place] [address] Dr. Brenda Kline EGFR-NON AF [place] 40 mL/min/1.73m2 Critically low >=60 [facility] Comment on above: Performed By: #### RENAL, MG, URIC #### [facility] [address] [place] [address] Dr. Brenda Kline Glucose [Mass/Vol] 125 mg/dL Critically high 74-106 [facility] Comment on above: Performed By: #### RENAL, MG, URIC #### [facility] [address] [place] [address] [address] Brenda Kline Phosphate [Mass/Vol] 3.5 mg/dL Normal 2.6-4.7 [facility] Comment on above: Performed By: #### RENAL, MG, URIC #### [facility] [address] [place] [address] Dr. Brenda Kline Potassium [Moles/Vol] 4.1 mmol/L Normal 3.5-5.1 [facility] Comment on above: Performed By: #### RENAL, MG, URIC #### [facility] [address] [place] [address] Dr. Brenda Kline Sodium [Moles/Vol] 139 mmol/L Normal 136-145 [facility] Comment on above: Performed By: #### RENAL, MG, URIC #### [facility] [address] [place] [address] Dr. Brenda Kline Urea nitrogen [Mass/Vol] 25.0 mg/dL Critically high 7.0-18.0 [facility] Comment on above: Performed By: #### RENAL, MG, URIC #### [facility] [address] [place] [address] Dr. Brenda Kline UA RANDOM W/MICROSCOPICon BACTERIA NONE SEEN Normal NONE SEEN [facility] Comment on above: Performed By: #### UAMIC #### [facility] [address] [place] [address] Dr. Brenda Kline Bilirubin Ql (U) Negative Normal NEGATIVE [facility] Comment on above: Performed By: #### UAMIC #### [facility] [address] [place] [address] Dr. Brenda Kline CAST SEEN Abnormal NONE SEEN [facility] Comment on above: Performed By: #### UAMIC #### [facility] [address] [place] [address] Dr. Brenda Kline Clarity (U) CLEAR Normal CLEAR [facility] Comment on above: Performed By: #### UAMIC #### [facility] [address] [place] [address] Dr. Brenda Kline Color (U) YELLOW Normal YELLOW [facility] Comment on above: Performed By: #### UAMIC #### [facility] [address] [place] [address] Dr. Brenda Kline Crystals LM Nom (Urine sed) NONE SEEN Normal NONE SEEN [facility] Comment on above: Performed By: #### UAMIC #### [facility] [address] [place] [address] Dr. Brenda Kline Epithelial cells LM Ql (Urine sed) RARE Normal NONE SEEN /RARE [facility] Comment on above: Performed By: #### UAMIC #### [facility] [address] [place] [address] Dr. Brenda Kline Glucose Ql (U) Negative Normal NEGATIVE [facility] Comment on above: Performed By: #### UAMIC #### [facility] [address] [place] [address] Dr. Brenda Kline Hemoglobin Ql (U) Negative Normal NEGATIVE [facility] Comment on above: Performed By: #### UAMIC #### [facility] [address] [place] [address] Dr. Brenda Kline HYALINE CAST RARE Normal [facility] Comment on above: Performed By: #### UAMIC #### [facility] [address] [place] [address] Dr. Brenda Kline Ketones Ql (U) Negative Normal NEGATIVE [facility] Comment on above: Performed By: #### UAMIC #### [facility] [address] [place] [address] [address] Brenda Kline LEUKOCYTES Negative Normal NEGATIVE [facility] Comment on above: Performed By: #### UAMIC #### [facility] [address] [place] [address] [address] Brenda Kline MUCOUS TRACE Abnormal NONE SEEN [facility] Comment on above: Performed By: #### UAMIC #### [facility] [address] [place] [address] Dr. Brenda Kline Nitrite Ql (U) Negative Normal NEGATIVE [facility] Comment on above: Performed By: #### UAMIC #### [facility] [address] [place] [address] Dr. Brenda Kline pH (U) 5.5 [pH] Normal 5-9 [facility] Comment on above: Performed By: #### UAMIC #### [facility] [address] [place] [address] Dr. Brenda Kline RBC 0-2 Normal 0-2 [facility] Comment on above: Performed By: #### UAMIC #### [facility] [address] [place] [address] Dr. Brenda Kline SPEC GRAVITY 1.025 Normal 1.005-<=1.025 [facility] Comment on above: Performed By: #### UAMIC #### [facility] [address] [place] [address] Dr. Brenda Kline UA PROTEIN Negative Normal NEGATIVE/ TRACE [facility] Comment on above: Performed By: #### UAMIC #### [facility] [address] [place] [address] Dr. Brenda Kline Urobilinogen Qn (U) 0.2 {Cayden'U}/dL Normal 0.2 - 1.0 [facility] Comment on above: Performed By: #### UAMIC #### [facility] [address] [address] [address] Brenda Kline WBC 0-2 Abnormal NONE SEEN [facility] Comment on above: Performed By: #### UAMIC #### [facility] [address] [address] [address] Brenda Kline URIC ACID SERUMon 10-13-2021 Urate [Mass/Vol] 7.2 mg/dL Normal 3.5-7.2 [facility] Comment on above: Performed By: #### RENAL, MG, URIC #### [facility] [address] [place] [address] Dr. Brenda Kline URINE T PROTEIN CREAT RATIOo n 10-13-2021 Protein (U) [Mass/Vol] 29.0 mg/dL Critically high <=12.0 [facility] Comment on above: Performed By: #### URTPCR #### [facility] [address] [place] [address] Dr. Brenda Kline UR PROT CREAT RAT 0.14 Normal [facility] Comment on above: Performed By: #### URTPCR #### [facility] [address] [place] [address] Dr. Brenda Kline URINE CREAT 202.37 mg/dL Normal 20.00-300.00 [facility] Comment on above: Performed By: #### URTPCR #### [facility] [address] [place] [address] Dr. Brenda Kline US FINE NEEDLE ASP EXPon US FINE NEEDLE ASP EXP Begin Addendum #1 COLLECTED DATE/TIME: 08/16/2021 07:32 EDT Final Diagnosis Report for THE [place], [place] (A-B) RIGHT GROIN MASS; FINE NEEDLE [...] 2. Pathology results are pending. Normal [facility] CREATININEon 07-20-2021 Creatinine [Mass/Vol] 1.65 mg/dL Critically high 0.70-1.30 [facility] Comment on above: Performed By: #### CREA ####[facility] [id number] [place] [address]Dr. Brenda Kline EGFR-AF [place] 50 mL/min/1.73m2 Critically low >=60 [facility] Comment on above: Performed By: #### CREA ####[facility] [id number] [place] [address]Dr. Brenda Kline EGFR-NON AF [place] 41 mL/min/1.73m2 Critically low >=60 [facility] Comment on above: Performed By: #### CREA ####[facility] [id number] [address] Brenda Kline CT PELVIS W CONon 07-20-2021 [...] MIA PERSON Date: 2021-07-20 16:34 Normal [facility] US SINGLE QUAD RT LOWERon US [...] MIA PERSON Date: 2021-07-09 17:23 Normal [facility] COVID Quick Testingon 2020 Result Negative [employer] Other Vital Signs Date Time Vital Sign Value Performing Clinician Facility 06-04-2024 14:53-0400 Body mass index (BMI) [Ratio] 31.84 kg/m2 YOAN Kumari MD Work Phone: [facility] 06-04-2024 14:53-0400 Body temperature 97.2 [degF] YOAN Kumari MD Work Phone: [facility] 06-04-2024 14:53-0400 Body weight 118.6 kg YOAN Kumari MD Work Phone: [facility] 06-04-2024 14:53-0400 Heart rate 75 /min YOAN Kumari MD Work Phone: [facility] 06-04-2024 14:53-0400 Respiratory rate 16 /min YOAN Kumari MD Work Phone: [facility] 06-04-2024 14:53-0400 SaO2% (BldA) [Mass fraction] 94 % YOAN Kumari MD Work Phone: [facility] 05-20-2024 13:58-0400 Body mass index (BMI) [Ratio] 31.65 kg/m2 Minoo Jairo HOME SERVICE ADVISOR.FARM ADVISOR Work Phone: [facility] 05-20-2024 13:58-0400 Body temperature 97.59 [degF] Minoo Jairo HOME SERVICE ADVISOR.FARM ADVISOR Work Phone: [facility] 05-20-2024 13:58-0400 Body weight 117.9 kg Minoo Jairo HOME SERVICE ADVISOR.FARM ADVISOR Work Phone: [facility] 05-20-2024 13:58-0400 Diastolic blood pressure 72 mm[Hg] Minoo Jairo HOME SERVICE ADVISOR.FARM ADVISOR Work Phone: [facility] 05-20-2024 13:58-0400 Heart rate 79 /min Minoo Jairo HOME SERVICE ADVISOR.FARM ADVISOR Work Phone: [facility] 05-20-2024 13:58-0400 Respiratory rate 16 /min Minoo Jairo HOME SERVICE ADVISOR.FARM ADVISOR Work Phone: [facility] 05-20-2024 13:58-0400 SaO2% (BldA) [Mass fraction] 97 % Minoo Jairo HOME SERVICE ADVISOR.FARM ADVISOR Work Phone: [facility] 05-20-2024 13:58-0400 Systolic blood pressure 120 mm[Hg] Minoo Jairo HOME SERVICE ADVISOR.FARM ADVISOR Work Phone: [facility] 03-04-2024 09:49-0500 Diastolic blood pressure 74 mm[Hg] Yosef GRIMES [facility] 03-04-2024 09:49-0500 Heart rate 67 /min Yosef GRIMES [facility] 03-04-2024 09:49-0500 Respiratory rate 16 /min Yosef GRIMES [facility] 03-04-2024 09:49-0500 Systolic blood pressure 142 mm[Hg] Yosef GRIMES [facility] 01-23-2024 12:46-0500 Diastolic blood pressure 79 mm[Hg] Meño Bob [facility] 01-23-2024 12:46-0500 Heart rate 85 /min Meño Bob [facility] 01-23-2024 12:46-0500 Respiratory rate 16 /min Meño Bob [facility] 01-23-2024 12:46-0500 SaO2% (BldA) [Mass fraction] 95 % Meño Bob [facility] 01-23-2024 12:46-0500 Systolic blood pressure 120 mm[Hg] Meño Bob [facility] 01-10-2024 12:49-0500 Blood Pressure Location Yosef GRIMES [facility] 01-10-2024 12:49-0500 Body temperature 98.6 [degF] Yosef GRIMES [facility] 01-10-2024 12:49-0500 Diastolic blood pressure 83 mm[Hg] Yosef GRIMES [facility] 01-10-2024 12:49-0500 Heart rate 89 /min Yosef GRIMES [facility] 01-10-2024 12:49-0500 Respiratory rate 17 /min Yosef GRIMES [facility] 01-10-2024 12:49-0500 Systolic blood pressure 126 mm[Hg] Yosef GRIMES [facility] 01-08-2024 08:56-0500 Blood Pressure Location Yosef GRIMES [facility] 01-08-2024 08:56-0500 Body temperature 98.6 [degF] Yosef GRIMES [facility] 01-08-2024 08:56-0500 Diastolic blood pressure 83 mm[Hg] Yosef GRIMES [facility] 01-08-2024 08:56-0500 Heart rate 70 /min Yosef GRIMES [facility] 01-08-2024 08:56-0500 Respiratory rate 18 /min Yosef GRIMES [facility] 01-08-2024 08:56-0500 Systolic blood pressure 137 mm[Hg] Yosef GRIMES [facility] 11-24-2023 11:48-0400 Blood Pressure Location Yosef GRIMES [facility] 11-24-2023 11:48-0400 Body temperature 98.6 [degF] Yosef GRIMES [facility] 11-24-2023 11:48-0400 Diastolic blood pressure 86 mm[Hg] Yosef GRIMES [facility] 11-24-2023 11:48-0400 Heart rate 68 /min Yosef GRIMES [facility] 11-24-2023 11:48-0400 Respiratory rate 16 /min Yosef GRIMES [facility] 11-24-2023 11:48-0400 Systolic blood pressure 134 mm[Hg] Yosef GRIMES [facility] 11-16-2023 14:59-0400 Body height 193 cm Nicolas Hwang MD Work Phone: [facility] 11-16-2023 14:59-0400 Body mass index (BMI) [Ratio] 31.81 kg/m2 Nicolas Hwang MD Work Phone: [facility] 11-16-2023 14:59-0400 Body temperature 96.69 [degF] Nicolas Hwang MD Work Phone: [facility] 11-16-2023 14:59-0400 Body weight 118.5 kg Nicolas Hwang MD Work Phone: [facility] 11-16-2023 14:59-0400 Diastolic blood pressure 73 mm[Hg] Nicolas Hwang MD Work Phone: [facility] 11-16-2023 14:59-0400 Heart rate 93 /min Nicolas Hwang MD Work Phone: [facility] 11-16-2023 14:59-0400 Respiratory rate 18 /min Nicolas Hwang MD Work Phone: [facility] 11-16-2023 14:59-0400 SaO2% (BldA) [Mass fraction] 94 % Nciolas Hwang MD Work Phone: [facility] 11-16-2023 14:59-0400 Systolic blood pressure 124 mm[Hg] Nicolas Hwang MD Work Phone: [facility] 11-16-2023 14:13-0400 Body mass index (BMI) [Ratio] 31.84 kg/m2 YOAN Kumari MD Work Phone: [facility] 11-16-2023 14:13-0400 Body temperature 96.69 [degF] YOAN Kumari MD Work Phone: [facility] 11-16-2023 14:13-0400 Body weight 118.6 kg YOAN Kumari MD Work Phone: [facility] 11-16-2023 14:13-0400 Diastolic blood pressure 73 mm[Hg] YOAN Kumari MD Work Phone: [facility] 11-16-2023 14:13-0400 Heart rate 93 /min YOAN Kumari MD Work Phone: [facility] 11-16-2023 14:13-0400 Respiratory rate 18 /min YOAN Kumari MD Work Phone: [facility] 11-16-2023 14:13-0400 SaO2% (BldA) [Mass fraction] 94 % YOAN Kumari MD Work Phone: [facility] 11-16-2023 14:13-0400 Systolic blood pressure 124 mm[Hg] YOAN Kumari MD Work Phone: [facility] 05-22-2023 11:20-0400 Blood Pressure Location Yosef GRIMES [facility] 05-22-2023 11:20-0400 Body temperature 98.42 [degF] Yosef GRIMES [facility] 05-22-2023 11:20-0400 Diastolic blood pressure 85 mm[Hg] Yosef GRIMES [facility] 05-22-2023 11:20-0400 Heart rate 81 /min Yosef GRIMES [facility] 05-22-2023 11:20-0400 Respiratory rate 16 /min Yosef GRIMES [facility] 05-22-2023 11:20-0400 Systolic blood pressure 118 mm[Hg] Yosef GRIMES [facility] 05-18-2023 13:16-0400 Body temperature 97 [degF] Elio Payne HOME SERVICE ADVISOR.FARM ADVISOR Work Phone: [facility] 05-18-2023 13:16-0400 Body weight 115.8 kg Elio Payne HOME SERVICE ADVISOR.FARM ADVISOR Work Phone: [facility] 05-18-2023 13:16-0400 Diastolic blood pressure 74 mm[Hg] Elio Payne HOME SERVICE ADVISOR.FARM ADVISOR Work Phone: [facility] 05-18-2023 13:16-0400 Heart rate 84 /min Elio Payne HOME SERVICE ADVISOR.FARM ADVISOR Work Phone: [facility] 05-18-2023 13:16-0400 Respiratory rate 18 /min Elio Payne HOME SERVICE ADVISOR.FARM ADVISOR Work Phone: [facility] 05-18-2023 13:16-0400 SaO2% (BldA) [Mass fraction] 94 % Elio Payne HOME SERVICE ADVISOR.FARM ADVISOR Work Phone: [facility] 05-18-2023 13:16-0400 Systolic blood pressure 144 mm[Hg] Elio Payne HOME SERVICE ADVISOR.FARM ADVISOR Work Phone: [facility] 01-16-2023 12:20-0500 Body temperature 97.39 [degF] YOAN Kumari MD Work Phone: [facility] 01-16-2023 12:20-0500 Body weight 109.32 kg YOAN Kumari MD Work Phone: [facility] 01-16-2023 12:20-0500 Diastolic blood pressure 74 mm[Hg] YOAN Kumari MD Work Phone: [facility] 01-16-2023 12:20-0500 Heart rate 66 /min YOAN Kumari MD Work Phone: [facility] 01-16-2023 12:20-0500 Respiratory rate 18 /min YOAN Kumari MD Work Phone: [facility] 01-16-2023 12:20-0500 SaO2% (BldA) [Mass fraction] 96 % YOAN Kumari MD Work Phone: [facility] 01-16-2023 12:20-0500 Systolic blood pressure 114 mm[Hg] YOAN Kumari MD Work Phone: [facility] 01-05-2023 12:45-0500 Body height 193 cm Nicolas Hwang MD Work Phone: [facility] 01-05-2023 12:45-0500 Body temperature 97 [degF] Nicolas Hwang MD Work Phone: [facility] 01-05-2023 12:45-0500 Body weight 109.77 kg Nicolas Hwang MD Work Phone: [facility] 01-05-2023 12:45-0500 Diastolic blood pressure 70 mm[Hg] Nicolas Hwang MD Work Phone: [facility] 01-05-2023 12:45-0500 Heart rate 60 /min Nicolas Hwang MD Work Phone: [facility] 01-05-2023 12:45-0500 Respiratory rate 16 /min Nicolas Hwang MD Work Phone: [facility] 01-05-2023 12:45-0500 SaO2% (BldA) [Mass fraction] 94 % Nicolas Hwang MD Work Phone: [facility] 01-05-2023 12:45-0500 Systolic blood pressure 124 mm[Hg] Nicolas Hwang MD Work Phone: [facility] 01-02-2023 12:22-0500 Body temperature 97.59 [degF] YOAN Kumari MD Work Phone: [facility] 01-02-2023 12:22-0500 Body weight 110.13 kg YOAN Kumari MD Work Phone: [facility] 01-02-2023 12:22-0500 Diastolic blood pressure 75 mm[Hg] YOAN Kumari MD Work Phone: [facility] 01-02-2023 12:22-0500 Heart rate 59 /min YOAN Kumari MD Work Phone: [facility] 01-02-2023 12:22-0500 Respiratory rate 16 /min YOAN Kumari MD Work Phone: [facility] 01-02-2023 12:22-0500 SaO2% (BldA) [Mass fraction] 96 % YOAN Kumari MD Work Phone: [facility] 01-02-2023 12:22-0500 Systolic blood pressure 112 mm[Hg] YOAN Kumari MD Work Phone: [facility] 12-26-2022 12:09-0500 Body temperature 96.91 [degF] YOAN Kumari MD Work Phone: [facility] 12-26-2022 12:09-0500 Body weight 111.04 kg YOAN Kumari MD Work Phone: [facility] 12-26-2022 12:09-0500 Diastolic blood pressure 75 mm[Hg] YOAN Kumari MD Work Phone: [facility] 12-26-2022 12:09-0500 Heart rate 66 /min YOAN Kumari MD Work Phone: [facility] 12-26-2022 12:09-0500 Respiratory rate 16 /min YOAN Kumari MD Work Phone: [facility] 12-26-2022 12:09-0500 SaO2% (BldA) [Mass fraction] 95 % YOAN Kumari MD Work Phone: [facility] 12-26-2022 12:09-0500 Systolic blood pressure 116 mm[Hg] YOAN Kumari MD Work Phone: [facility] 12-19-2022 12:17-0500 Body temperature 97 [degF] YOAN Kumari MD Work Phone: [facility] 12-19-2022 12:17-0500 Body weight 111.04 kg YOAN Kumari MD Work Phone: [facility] 12-19-2022 12:17-0500 Diastolic blood pressure 68 mm[Hg] YOAN Kumari MD Work Phone: [facility] 12-19-2022 12:17-0500 Heart rate 81 /min YOAN Kumari MD Work Phone: [facility] 12-19-2022 12:17-0500 Respiratory rate 16 /min YOAN Kumari MD Work Phone: [facility] 12-19-2022 12:17-0500 SaO2% (BldA) [Mass fraction] 99 % YOAN Kumari MD Work Phone: [facility] 12-19-2022 12:17-0500 Systolic blood pressure 115 mm[Hg] YOAN Kumari MD Work Phone: [facility] 12-14-2022 10:57-0500 Body temperature 97 [degF] YOAN Kumari MD Work Phone: [facility] 12-14-2022 10:57-0500 Body weight 109.77 kg YOAN Kumari MD Work Phone: [facility] 12-14-2022 10:57-0500 Diastolic blood pressure 76 mm[Hg] YOAN Kumari MD Work Phone: [facility] 12-14-2022 10:57-0500 Heart rate 59 /min YOAN Kumari MD Work Phone: [facility] 12-14-2022 10:57-0500 Respiratory rate 16 /min YOAN Kumari MD Work Phone: [facility] 12-14-2022 10:57-0500 SaO2% (BldA) [Mass fraction] 96 % NA Jasmyne ROSARIO Work Phone: [facility] 12-14-2022 10:57-0500 Systolic blood pressure 125 mm[Hg] NA Jasmyne ROSARIO Work Phone: [facility] 12-02-2022 12:15-0400 Blood Pressure Location Yosef GRIMES [facility] 12-02-2022 12:15-0400 Diastolic blood pressure 74 mm[Hg] Yosef GRIMES [facility] 12-02-2022 12:15-0400 Heart rate 68 /min Yosef GRIMES [facility] 12-02-2022 12:15-0400 Systolic blood pressure 129 mm[Hg] Yosef GRIMES [facility] 11-18-2022 11:18-0400 Blood Pressure Location Yosef GRIMES [facility] 11-18-2022 11:18-0400 Diastolic blood pressure 70 mm[Hg] Yosef GRIMES [facility] 11-18-2022 11:18-0400 Heart rate 68 /min Yosef GRIMES [facility] 11-18-2022 11:18-0400 Respiratory rate 16 /min Yosef GRIMES [facility] 11-18-2022 11:18-0400 Systolic blood pressure 128 mm[Hg] Yosef GRIMES [facility] 11-15-2022 08:47-0400 Body temperature 97.59 [degF] YOAN Kumari MD Work Phone: [facility] 11-15-2022 08:47-0400 Body weight 112.49 kg YOAN Kumari MD Work Phone: [facility] 11-15-2022 08:47-0400 Diastolic blood pressure 78 mm[Hg] YOAN Kumari MD Work Phone: [facility] 11-15-2022 08:47-0400 Heart rate 57 /min YOAN Kumari MD Work Phone: [facility] 11-15-2022 08:47-0400 Respiratory rate 20 /min YOAN Kumari MD Work Phone: [facility] 11-15-2022 08:47-0400 SaO2% (BldA) [Mass fraction] 96 % YOAN Kumari MD Work Phone: [facility] 11-15-2022 08:47-0400 Systolic blood pressure 127 mm[Hg] YOAN Kumari MD Work Phone: [facility] 10-09-2022 10:45-0400 Body height 193.04 cm Angelina Holder Other [employer] Other 10-09-2022 10:45-0400 Body mass index (BMI) [Ratio] 30.59 kg/m2 Angelina Holder Other [employer] Other 10-09-2022 10:45-0400 Body temperature 98.3 [degF] Angelina Holder Other [employer] Other 10-09-2022 10:45-0400 Body weight 113.99 kg Angelina Holder Other [employer] Other 10-09-2022 10:45-0400 Diastolic blood pressure 68 mm[Hg] Angelina Holder Other [employer] Other 10-09-2022 10:45-0400 Respiratory rate 16 /min Angelina Curranmond Other [employer] Other 10-09-2022 10:45-0400 SaO2% (BldA) [Mass fraction] 96 % Angelina Curranmond Other [employer] Other 10-09-2022 10:45-0400 Systolic blood pressure 110 mm[Hg] Angelina Curranmond Other [employer] Other 10-03-2022 13:53-0400 Blood Pressure Location Yosef GRIMES [facility] 10-03-2022 13:53-0400 Diastolic blood pressure 70 mm[Hg] Yosef GRIMES [facility] 10-03-2022 13:53-0400 Heart rate 80 /min Yosef GRIMES [facility] 10-03-2022 13:53-0400 Respiratory rate 16 /min Yosef GRIMES [facility] 10-03-2022 13:53-0400 Systolic blood pressure 130 mm[Hg] Yosef GRIMES [facility] 06-02-2022 14:00-0400 Body height 193 cm Elio Payne APRN.FARM ADVISOR Work Phone: [facility] 06-02-2022 14:00-0400 Body temperature 97.81 [degF] Elio Payne APRN.NORBERTO Work Phone: [facility] 06-02-2022 14:00-0400 Body weight 118.03 kg Elio Renny HOME SERVICE ADVISOR.FARM ADVISOR Work Phone: [facility] 06-02-2022 14:00-0400 Diastolic blood pressure 63 mm[Hg] Elio Payne HOME SERVICE ADVISOR.FARM ADVISOR Work Phone: [facility] 06-02-2022 14:00-0400 Heart rate 77 /min Elio Payne HOME SERVICE ADVISOR.FARM ADVISOR Work Phone: [facility] 06-02-2022 14:00-0400 Respiratory rate 18 /min Elio Payne HOME SERVICE ADVISOR.FARM ADVISOR Work Phone: [facility] 06-02-2022 14:00-0400 SaO2% (BldA) [Mass fraction] 93 % Elio Payne HOME SERVICE ADVISOR.FARM ADVISOR Work Phone: [facility] 06-02-2022 14:00-0400 Systolic blood pressure 118 mm[Hg] Elio Payne HOME SERVICE ADVISOR.FARM ADVISOR Work Phone: [facility] 11-02-2021 12:50-0400 Body height 193 cm Nicolas Hwang MD Work Phone: [facility] 11-02-2021 12:50-0400 Body temperature 97.7 [degF] Nicolas Hwang MD Work Phone: [facility] 11-02-2021 12:50-0400 Body weight 119.39 kg Nicolas Hwang MD Work Phone: [facility] 11-02-2021 12:50-0400 Diastolic blood pressure 77 mm[Hg] Nicolas Hwang MD Work Phone: [facility] 11-02-2021 12:50-0400 Heart rate 72 /min Nicolas Hwang MD Work Phone: [facility] 11-02-2021 12:50-0400 Respiratory rate 18 /min Nicolas Hwang MD Work Phone: [facility] 11-02-2021 12:50-0400 SaO2% (BldA) [Mass fraction] 94 % Nicolas Hwang MD Work Phone: [facility] 11-02-2021 12:50-0400 Systolic blood pressure 140 mm[Hg] Nicolas Hwang MD Work Phone: [facility] 09-27-2021 10:00-0400 Blood Pressure Location Yosef GRIMES [facility] 09-27-2021 10:00-0400 Diastolic blood pressure 79 mm[Hg] Yosef GRIMES [facility] 09-27-2021 10:00-0400 Heart rate 67 /min [facility]IMES [facility] 09-27-2021 10:00-0400 Respiratory rate 16 /min [facility]IMES [facility] 09-27-2021 10:00-0400 Systolic blood pressure 114 mm[Hg] Yosef GRIMES [facility] 11-13-2020 13:45-0400 Body height 193.04 cm Azucena Ginty Other [employer] Other 11-13-2020 13:45-0400 Body mass index (BMI) [Ratio] 32.25 kg/m2 Azucena Ginty Other [employer] Other 11-13-2020 13:45-0400 Body temperature 96.4 [degF] Azucena Ginty Other [employer] Other 11-13-2020 13:45-0400 Body weight 120.2 kg Azucena Ginty Other [employer] Other 11-13-2020 13:[id number] SaO2% (BldA) [Mass fraction] 99 % Azucena Hui Other [employer] Other Encounters Encounter Date Encounter Type Care Provider Facility Start: 09-25-2025 ambulatory Shilpa L Dominique Facility: [facility] Start: 11-15-2024 ambulatory Yosef R CORNELIO Rivasi ty:[facility] Start: 10-23-2024 ambulatory Ramila PonceDesiree Fabian Facility:[facility] Start: 10-23-2024 ambulatory Ramila M. Lue Facility:C [id number] Start: 10-14-2024 ambulatory FARM ADVISOR IFEANYIBrittani BETH Facility:[facility] Start: 09-26-2024 End: 09-26-2024 ambulatory Shilpa L Dominique Facility:[facility] Start: 06-04-2024 End: 06-04-2024 Office outpatient visit 15 minutes David Kumari MD Work Phone: Radiation Oncology Comment on above: Malignant neoplasm o f prostate (HCC) (Primary Dx) Start: 06-04-2024 End: 06-04-2024 ambulatory David KUMARI Facility:[facility] Start: 05-20-2024 End: 05-20-2024 Office outpatient visit 25 minutes Minoo Gill APRN.CNP Work Phone: Hematology/Oncology Comment on above: Monoclonal gammopath y (Primary Dx); Prostate cancer (HCC); Chronic renal insufficiency, stage 3 (moderate) (HCC) Start: 05-20-2024 End: 05-20-2024 ambulatory MINOO JAIRO Facility:[facility] Start: 05-16-2024 End: 05-29-2024 Telephone encounter Nicolas Hwang MD Work Phone: [facility] Start: 05-15-2024 End: 05-15-2024 ambulatory SHAHRIAR STEPHENSON Facility:[facility] Start: 05-07-2024 End: 05-07-2024 ambulatory SHAHRIAR STEPHENSON Facility:[facility] Start: 05-07-2024 End: 05-07-2024 Subsequent hospital visit by physician General Joseph Garcia Mc Work Phone: Radiology Start: 03-04-2024 End: 03-04-2024 ambulatory Yosef GRIMES Facility:[facility] Start: 03-04-2024 End: 03-04-2024 Patient encounter procedure Yosef GRIMES [facility] Manoj Start: 02-28-2024 End: 02-28-2024 ambulatory Yosef GRIMES Facility:[facility] Start: 02-28-2024 End: 02-28-2024 Patient encounter procedure Yosef GRIMES [facility] Jose Start: 02-22-2024 End: 02-22-2024 ambulatory Yosef Grimes [facility] Work Phone: Start: 02-22-2024 End: 02-22-2024 Departed Referred Yosef Grimes MD Work Phone: [facility] Start: 02-22-2024 End: 02-22-2024 ambulatory Yosef GRIMES Facility:[id number] Start: 01-30-2024 End: 01-30-2024 ambulatory Meño Bob Facility:[facility] Start: 01-30-2024 End: 01-30-2024 Patient encounter procedure Meño Bob [facility] Start: 01-26-2024 ambulatory Yosef GRIMES Facili ty:[facility] Start: 01-23-2024 End: 01-23-2024 ambulatory Meño Bob Facility:[facility] Start: 01-23-2024 End: 01-23-2024 Patient encounter procedure Meño Bob [facility] Start: 01-19-2024 End: 01-19-2024 ambulatory YOSEF GRIMES Facility:[facility] Start: 01-19-2024 End: 01-19-2024 Subsequent hospital visit by physician Arrival Time Radiology Work Phone: Radiology [facility] Start: 01-13-2024 Non-patient / Non-visit Mateusz Grimes MD Work Phone: [facility] Work Phone: Start: 01-10-2024 End: 01-10-2024 ambulatory Yosef GRIMES Facility:[facility] Start: 01-10-2024 End: 01-10-2024 Patient encounter procedure Yosef GRIMES [facility] Start: 01-08-2024 End: 01-08-2024 ambulatory Yosef GRIMES Facility:[facility] Start: 01-08-2024 End: 01-08-2024 Lab Drop off Yosef Alivia GRIMES [facility] Start: 01-08-2024 End: 01-08-2024 ambulatory Yosef Alivia GRIMES Facility:[facility] Start: 01-08-2024 End: 01-08-2024 Patient encounter procedure Yosef GRIMES [facility] Start: 01-01-2024 End: 01-01-2024 Lab Drop off Yosef Alivia GRIMES [facility] Start: 01-01-2024 End: 01-01-2024 ambulatory Yosef Alivia GRIMES Facility:[facility] Start: 01-01-2024 End: 01-01-2024 Patient encounter procedure Yosef GRIMES [facility] Start: 12-29-2023 End: 01-01-2024 Telephone encounter G Damien Kumari MD Work Phone: Radiation Oncology Comment on above: Hematuria Start: 11-24-2023 End: 11-24-2023 ambulatory Yosef GRIMES Facility:[facility] Start: 11-24-2023 End: 11-24-2023 Patient encounter procedure [facility]osef GRIMES [facility] Start: 11-16-2023 End: 11-16-2023 ambulatory Nicolas Hwang MD Work Phone: Hematology/Oncology Comment on above: Prostate cancer (HCC ) (Primary Dx); Monoclonal gammopathy Start: 11-16-2023 End: 11-16-2023 Patient encounter procedure Nicolas Hwang MD Work Phone: Hematology/Oncology Comment on above: Malignant neoplasm o f prostate (HCC) (Primary Dx) Start: 11-09-2023 End: 11-09-2023 ambulatory SHAHRIAR STEPHENSON Facility:[facility] Start: 10-23-2023 End: 10-23-2023 ambulatory HOME SERVICE ADVISOR Shilpa L Dominique Facility:[facility] Start: 09-27-2023 End: 09-27-2023 ambulatory HOME SERVICE ADVISOR Shilpa L Dominique Facility:[facility] Start: 05-22-2023 End: 05-22-2023 ambulatory Yosef GRIMES Facility:[facility] Start: 05-22-2023 End: 05-22-2023 Patient encounter procedure Yosef GRIMES [facility] Start: 05-18-2023 End: 05-18-2023 ambulatory Elio Payne APRN.CNP Work Phone: Hematology/Oncology Comment on above: Prostate cancer (HCC ) (Primary Dx); Monoclonal gammopathy; Chronic renal insufficiency, stage 3 (moderate) (HCC); Essential hypertension Start: 05-18-2023 End: 05-18-2023 Patient encounter procedure Elio Renny HOME SERVICE ADVISOR.FARM ADVISOR Work Phone: [employer] Comment on above: Malignant neoplasm o f prostate (HCC) (Primary Dx) Start: 05-10-2023 Telephone encounter Elio Ferrer jone HOME SERVICE ADVISOR.FARM ADVISOR Work Phone: Hematology/Oncology Comment on above: Lab [...] Start: 01-16-2023 End: 01-16-2023 Refill Rose Mckeon [facility] Work Phone: Hematology/Oncology Comment on above: Refill [...] encounter procedure Nicolas Hwang MD Work Phone: [employer] Start: 01-02-2023 End: 01-02-2023 Patient encounter procedure David Kumari MD Work Phone: Radiation Oncology Comment on above: Malignant neoplasm o f prostate (HCC) (Primary Dx) Start: 12-26-2022 End: 12-26-2022 Patient encounter procedure David Kumari MD Work Phone: Radiation Oncology Comment on above: Malignant neoplasm o f prostate (HCC) (Primary Dx) Start: 12-22-2022 End: 12-22-2022 Patient encounter procedure Lab/[employer] Work Phone: Radiation Oncology Comment on above: Malignant neoplasm o f prostate (HCC) Start: 12-19-2022 Telephone encounter David Kumari MD Work Phone: [facility] Comment on above: Appointment Confirma tion Start: [...] encounter procedure David Kumari MD Work Phone: [employer] Comment on above: Malignant neoplasm o f prostate (HCC) (Primary Dx) Start: 12-08-2022 Radiation Oncology Note David Kumari MD Work Phone: Radiation Oncology Comment on above: Treatment Planning Start: 12-08-2022 End: 12-08-2022 Subsequent hospital visit by physician David Kumari MD Work Phone: Radiology Pet CT Start: 12-02-2022 End: 12-02-2022 Patient encounter procedure Yosef GRIMES [facility] Start: 12-01-2022 ambulatory Letty Jun STAMP MAKER Radia tion Oncology Comment on above: Patient Education Start: 11-28-2022 End: 11-28-2022 Subsequent hospital visit by physician Mri 6 Radio Main Q (I-Stat/1.5t/3t) Work Phone: MRI Q Comment on above: Malignant neoplasm o f prostate (HCC) [C61] Start: 11-22-2022 Patient encounter procedure [facility] Prov ider [facility] Start: 11-18-2022 End: 11-18-2022 Patient encounter procedure Yosef GRIMES [facility] Start: 11-15-2022 End: 11-15-2022 Patient encounter procedure David Kumari MD Work Phone: Radiation Oncology Comment on above: Malignant neoplasm o f prostate (HCC) (Primary Dx) Start: 11-01-2022 End: 11-01-2022 Lab Drop off Yosef GRIMES [facility] Start: 10-28-2022 End: 10-28-2022 Subsequent hospital visit by physician Arrival Time Radiology Work Phone: Radiology Pet CT Comment on above: Rising PSA following treatment for malignant neoplasm of prostate [R97.21] Start: 10-09-2022 Office outpatient vi sit 15 minutes Angelina Holder [facility] Start: 10-09-2022 End: 10-09-2022 ambulatory Angelina Holder Other [employer] Other Start: 10-09-2022 End: 10-09-2022 Departed Referred CARISSA Holder Work Phone: [facility] [place] Work Phone: Start: 10-06-2022 Telephone encounter Nicolas schneider MD Work Phone: [facility] Comment on above: Nm Pet Request Start: 10-03-2022 End: 10-03-2022 Patient encounter procedure Yosef GRIMES [facility] Start: 06-02-2022 End: 06-02-2022 ambulatory Elio Payne APRN.FARM ADVISOR Work Phone: Hematology/Oncology Comment on above: Monoclonal gammopath y (Primary Dx); Prostate cancer (HCC); Essential hypertension; Chronic renal insufficiency, stage 3 (moderate) (HCC) Start: 06-02-2022 End: 06-02-2022 Patient encounter procedure Elio Payne HOME SERVICE ADVISOR.FARM ADVISOR Work Phone: JOSE Start: 11-08-2021 Telephone encounter [...] encounter procedure Yosef GRIMES [facility] Start: 09-14-2021 End: 09-15-[address] YOSEF GRIMES Facility:[facility] Start: 08-16-2021 End: 08-16-[address] GURMEET CHANEL Facility:[facility] Start: 08-02-2021 Telephone encounter Nicolas schneider MD Work Phone: [facility] Comment on above: Call Back 48 Hours [...] End: 10-18-2019 Patient encounter procedure External Provider [facility] Start: 10-18-2019 Results Only External Provider [...] above: Performed By: #### P SAD #### [facility] [address] [place], [place] [id number] Dr. Brenda Kline Start: 05-10-2021 Adult depression [...] Author Start: 05-16-2027 Diabetes Screening Diabetes Screenin [facility] Start: 11-15-2026 [facility] Start: 05-17-2026 [facility] Start: 01-19-2026 [facility] Start: 01-05-2026 Diabetes Screening Diabetes Screenin g [facility] Start: 12-08-2025 Diabetes Screening Diabetes Screenin [facility] Start: 06-02-2025 DIABETES SCREEN DIABETES SCREEN [facility] Start: 06-02-2025 Diabetes Screening Diabetes Screenin g [facility] Start: 11-13-2024 End: 11-13-2024 Follow-up encounter 11/13/2024 1:30 PM EDT Visit (SP) Office Hematology/Oncology [address] [place] [address] Minoo Gill APRN.FARM ADVISOR [address] [place] [address] 6 month follow up with lab Hematology/Oncology Comment on above: 6 month follow up [facility] Start: 11-13-2024 End: 11-13-2024 Patient encounter procedure [facility] Comment on above: 6 month follow up [place] lab Start: 11-12-2024 End: 02-11-2025 Prostate specific Ag [Mass/volume] in Serum or Plasma PROSTATE-SPECIFIC ANTIGEN DIAGNOSTIC Lab Routine Malignant neoplasm of prostate (HCC) Expected: 11/12/2024, Expires: 02/11/2025 [facility] Work Phone: Comment on above: Expected: 11/12/2024 , Expires: 02/11/2025 Start: 11-12-2024 End: 11-12-2024 Patient encounter procedure 11/12/2024 9:00 AM EDT Office Visit [facility] [address] [place] [place] [address] 6 month follow up with lab [facility] Comment on above: 6 month follow up [facility] Start: 11-02-2024 DIABETES SCREEN DIABETES SCREEN [facility] Start: 10-24-2024 ambulatory Ambulatory Facility:[facility] Start: 06-04-2024 End: 06-04-2024 Patient encounter procedure 06/04/2024 3:00 PM EDT Office Visit Radiation Oncology [address] [place] [address] David Kumari MD [address] [place] [place] [address] 6 month follow up Radiation Oncology Comment on above: 6 month follow up Start: 05-20-2024 ambulatory Ambulatory Facility:[facility] Start: 05-16-2024 End: 08-15-2024 Prostate specific Ag [Mass/volume] in Serum or Plasma PROSTATE-SPECIFIC ANTIGEN DIAGNOSTIC Lab Routine Malignant neoplasm of prostate (HCC) Expected: 05/16/2024 (Approximate), Expires: 08/15/2024 [facility] Work Phone: Comment on above: Expected: 05/16/2024 (Approximate), Expires: 08/15/2024 Start: 05-16-2024 End: 05-16-2024 Follow-up encounter 05/16/2024 11:40 AM EDT Visit (SP) Office Hematology/Oncology [address] [place] [address] Nicolas Hwang MD [address] [place] [place] [address] 6 month follow up Hematology/Oncology Comment on above: 6 month follow up Start: 05-16-2024 End: 05-16-2024 Patient encounter procedure 05/16/2024 11:00 AM EDT Office Visit Radiation Oncology [address] [place] [address] David Kumari MD [address] [place] [place] [address] Moved from 05/14 Radiation Oncology Comment on above: Moved from 05/14 Start: 05-14-2024 End: 05-14-2024 Follow-up encounter 05/14/2024 2:00 PM EDT Visit (SP) Office Hematology/Oncology [address] [place] [address] Nicolas Hwang MD [address] [place] [place] [address] 6 month follow up Hematology/Oncology Comment on above: 6 month follow up Start: 05-14-2024 End: 05-14-2024 Patient encounter procedure 05/14/2024 1:00 PM EDT Office Visit Radiation Oncology [address] [place] [address] David Kumari MD [address] [place] [place] [address] 6 month follow up Radiation Oncology Comment on above: 6 month follow up Start: 05-10-2024 DIABETES SCREEN DIABETES SCREEN [facility] Start: 05-07-2024 End: 05-07-2024 Patient encounter procedure 05/07/2024 1:00 PM EDT Office Visit [facility] [address] [place] [address] lab [facility] Comment on above: lab Start: 02-07-2024 Advance Directive Discussion Advance Directive Discussion [facility] Start: 11-17-2023 End: 02-16-2024 Prostate specific Ag [Mass/volume] in Serum or Plasma PROSTATE-SPECIFIC ANTIGEN DIAGNOSTIC Lab Routine Malignant neoplasm of prostate (HCC) Expected: 11/17/2023 (Approximate), Expires: 02/16/2024 [facility] Work Phone: Comment on above: Expected: 11/17/2023 (Approximate), Expires: 02/16/2024 Start: 11-16-2023 End: 11-16-2023 Follow-up encounter 11/16/2023 3:00 PM EDT Visit (SP) Office Hematology/Oncology [address] [place] [address] Nicolas Hwang MD [address] [place] [address] 6 month follow up lab Hematology/Oncology Comment on above: 6 month follow up la b Start: 11-16-2023 End: 11-16-2023 Patient encounter procedure 11/16/2023 2:15 PM EDT Office Visit Radiation Oncology [address] [place] [place] [address] David Kumari MD [address] [place] [place] [address] Followup Radiation Oncology Comment on above: Followup Start: 11-16-2023 End: 02-15-2024 MONOCLONAL PROTEIN, SERUM (BLOOD) [facility] Comment on above: Expected: 11/16/2023 , Expires: 02/15/2024 Start: 11-16-2023 End: 02-15-2024 PROT ELECT SERUM WITH FAUSTINA AND INTERP [facility] Work Phone: Comment on above: Expected: 11/16/2023 , Expires: 02/15/2024 Start: 11-09-2023 End: 11-09-2023 Patient encounter procedure 11/09/2023 1:00 PM EDT Office Visit [facility] [address] [place] [address] [place] [address] Lab [facility] Comment on above: Lab Start: 10-30-2023 DIABETES SCREEN DIABETES SCREEN [facility] Start: 10-08-2023 Covid-19 Vaccine ( season) Covid-19 Vaccine () [facility] Start: 10-08-2023 Covid-19 Vaccine () Covid-19 Vaccine () [facility] Start: 10-08-2023 Influenza vaccination C [facility] Start: 06-16-2023 End: 09-15-2023 MONOCLONAL PROTEIN, SERUM (BLOOD) MONOCLONAL PROTEIN, SERUM (BLOOD) Lab Routine Prostate cancer (HCC) Monoclonal gammopathy Chronic renal insufficiency, stage 3 (moderate) (HCC) Essential hypertension Expected: 06/16/2023, Expires: 09/15/2023 [facility] Work Phone: Comment on above: Expected: 06/16/2023 , Expires: 09/15/2023 Start: 05-19-2023 End: 08-18-2023 CBC W Auto Differential panel - Blood COMPLETE BLOOD COUNT AND DIFFERENTIAL Lab Routine Prostate cancer (HCC) Monoclonal gammopathy Chronic renal insufficiency, stage 3 (moderate) (HCC) Essential hypertension Expected: 05/19/2023, Expires: 08/18/2023 [facility] Work Phone: Comment on above: Expected: 05/19/2023 , Expires: 08/18/2023 Start: 05-19-2023 End: 08-18-2023 Comprehensive metabolic 2000 panel - Serum or Plasma COMPREHENSIVE METABOLIC PANEL Lab Routine Prostate cancer (HCC) Monoclonal gammopathy Chronic renal insufficiency, stage 3 (moderate) (HCC) Essential hypertension Expected: 05/19/2023, Expires: 08/18/2023 [facility] Work Phone: Comment on above: Expected: 05/19/2023 , Expires: 08/18/2023 Start: 05-19-2023 End: 08-18-2023 Prostate specific Ag [Mass/volume] in Serum or Plasma PROSTATE-SPECIFIC ANTIGEN DIAGNOSTIC Lab Routine Prostate cancer (HCC) Monoclonal gammopathy Chronic renal insufficiency, stage 3 (moderate) (HCC) Essential hypertension Expected: 05/19/2023, Expires: 08/18/2023 [facility] Work Phone: Comment on above: Expected: 05/19/2023 , Expires: 08/18/2023 Start: 05-19-2023 End: 08-18-2023 PROTEIN ELECTROPHORESIS SERUM W/INTERP PROTEIN ELECTROPHORESIS SERUM W/INTERP Lab Routine Prostate cancer (HCC) Monoclonal gammopathy Chronic renal insufficiency, stage 3 (moderate) (HCC) Essential hypertension Expected: 05/19/2023, Expires: 08/18/2023 [facility] Work Phone: Comment on above: Expected: 05/19/2023 , Expires: 08/18/2023 Start: 05-18-2023 End: 08-17-2023 CBC W Auto Differential panel - Blood CBC + DIFF Lab Routine Prostate cancer (HCC) Monoclonal gammopathy Expected: 05/18/2023, Expires: 08/17/2023 [facility] Work Phone: Comment on above: Expected: 05/18/2023 , Expires: 08/17/2023 Start: 05-18-2023 End: 08-17-2023 Comprehensive metabolic 2000 panel - Serum or Plasma COMP METABOLIC PANEL Lab Routine Prostate cancer (HCC) Monoclonal gammopathy Expected: 05/18/2023, Expires: 08/17/2023 [facility] Work Phone: Comment on above: Expected: 05/18/2023 , Expires: 08/17/2023 Start: 05-18-2023 End: 08-17-2023 MONOCLONAL PROTEIN, SERUM (BLOOD) MONOCLONAL PROTEIN, SERUM (BLOOD) Lab Routine Prostate cancer (HCC) Monoclonal gammopathy Expected: 05/18/2023, Expires: 08/17/2023 [facility] Work Phone: Comment on above: Expected: 05/18/2023 , Expires: 08/17/2023 Start: 05-18-2023 End: 08-17-2023 Prostate specific Ag [Mass/volume] in Serum or Plasma PSA/PROSTSPECAG DIAG Lab Routine Prostate cancer (HCC) Monoclonal gammopathy Expected: 05/18/2023, Expires: 08/17/2023 [facility] Work Phone: Comment on above: Expected: 05/18/2023 , Expires: 08/17/2023 Start: 05-18-2023 End: 08-17-2023 PROTEIN ELECTROPHORESIS SERUM W/INTERP PROTEIN ELECTROPHORESIS SERUM W/INTERP Lab Routine Prostate cancer (HCC) Monoclonal gammopathy Expected: 05/18/2023, Expires: 08/17/2023 [facility] Work Phone: Comment on above: Expected: 05/18/2023 , Expires: 08/17/2023 Start: 02-06-2023 Advance Directive Discussion Advance Directive Discussion [facility] Start: 02-06-2023 Behavioral Health Screening Behavioral Health Screening [facility] Start: 01-05-2023 End: 04-06-2023 MONOCLONAL PROTEIN, SERUM (BLOOD) [facility] Work Phone: Comment on above: Expected: 01/05/2023 , Expires: 04/06/2023 Start: 01-05-2023 End: 04-06-2023 PROT ELECT SERUM WITH FAUSTINA AND INTERP [facility] Work Phone: Comment on above: Expected: 01/05/2023 , Expires: 04/06/2023 Start: 11-02-2022 End: 01-02-2023 CBC W Auto Differential panel - Blood CBC + DIFF Lab Routine Monoclonal gammopathy Prostate cancer (HCC) Essential hypertension Chronic renal insufficiency, stage 3 (moderate) (HCC) Expected: 11/02/2022, Expires: 01/02/2023 [facility] Work Phone: Comment on above: Expected: 11/02/2022 , Expires: 01/02/2023 Start: 11-02-2022 End: 01-02-2023 Comprehensive metabolic 2000 panel - Serum or Plasma COMP METABOLIC PANEL Lab Routine Monoclonal gammopathy Prostate cancer (HCC) Essential hypertension Chronic renal insufficiency, stage 3 (moderate) (HCC) Expected: 11/02/2022, Expires: 01/02/2023 [facility] Work Phone: Comment on above: Expected: 11/02/2022 , Expires: 01/02/2023 Start: 11-02-2022 End: 01-02-2023 MONOCLONAL PROTEIN, SERUM (BLOOD) MONOCLONAL PROTEIN, SERUM (BLOOD) Lab Routine Monoclonal gammopathy Prostate cancer (HCC) Essential hypertension Chronic renal insufficiency, stage 3 (moderate) (HCC) Expected: 11/02/2022, Expires: 01/02/2023 [facility] Work Phone: Comment on above: Expected: 11/02/2022 , Expires: 01/02/2023 Start: 11-02-2022 End: 01-02-2023 PROT ELECT SERUM WITH FAUSTINA AND INTERP PROT ELECT SERUM WITH FAUSTINA AND INTERP Lab Routine Monoclonal gammopathy Prostate cancer (HCC) Essential hypertension Chronic renal insufficiency, stage 3 (moderate) (HCC) Expected: 11/02/2022, Expires: 01/02/2023 [facility] Work Phone: Comment on above: Expected: 11/02/2022 , Expires: 01/02/2023 Start: 10-09-2022 Bacteria identified in Urine by Culture [facility] Start: 10-07-2022 Covid-19 Vaccine ( season) Covid-19 Vaccine ( season) [facility] Start: 10-07-[address] [facility] Start: 06-02-2022 End: 08-02-2022 CBC W Auto Differential panel - Blood CBC + DIFF Lab Routine Monoclonal gammopathy Expected: 06/02/2022, Expires: 08/02/2022 [facility] Work Phone: Comment on above: Expected: 06/02/2022 , Expires: 08/02/2022 Start: 06-02-2022 End: 08-02-2022 Comprehensive metabolic 2000 panel - Serum or Plasma COMP METABOLIC PANEL Lab Routine Monoclonal gammopathy Expected: 06/02/2022, Expires: 08/02/2022 [facility] Work Phone: Comment on above: Expected: 06/02/2022 , Expires: 08/02/2022 Start: 06-02-2022 End: 08-02-2022 MONOCLONAL PROTEIN, SERUM (BLOOD) MONOCLONAL PROTEIN, SERUM (BLOOD) Lab Routine Monoclonal gammopathy Expected: 06/02/2022, Expires: 08/02/2022 [facility] Work Phone: Comment on above: Expected: 06/02/2022 , Expires: 08/02/2022 Start: 06-02-2022 End: 08-02-2022 PROT ELECT SERUM WITH FAUSTINA AND INTERP PROT ELECT SERUM WITH FAUSTINA AND INTERP Lab Routine Monoclonal gammopathy Expected: 06/02/2022, Expires: 08/02/2022 [facility] Work Phone: Comment on above: Expected: 06/02/2022 , Expires: 08/02/2022 Start: 05-10-2022 Adult depression screening assessment DEPRESSION SCREENING [facility] Start: 02-06-2022 ADVANCE DIRECTIVE DISCUSSION ADVANCE DIRECTIVE DISCUSSION [facility] Start: 02-06-2022 DEPRESSION ASSESSMENT DEPRESSION ASS ESSMENT [facility] Start: 11-02-2021 End: 01-02-2022 CBC W Auto Differential panel - Blood CBC + DIFF Lab Routine Monoclonal gammopathy Expected: 11/02/2021, Expires: 01/02/2022 [facility] Work Phone: Comment on above: Expected: 11/02/2021 , Expires: 01/02/2022 Start: 11-02-2021 End: 01-02-2022 Comprehensive metabolic 2000 panel - Serum or Plasma COMP METABOLIC PANEL Lab Routine Monoclonal gammopathy Expected: 11/02/2021, Expires: 01/02/2022 [facility] Work Phone: Comment on above: Expected: 11/02/2021 , Expires: 01/02/2022 Start: 11-02-2021 End: 01-02-2022 PROT ELECT SERUM WITH FAUSTINA AND INTERP PROT ELECT SERUM WITH FAUSTINA AND INTERP Lab Routine Monoclonal gammopathy Expected: 11/02/2021, Expires: 01/02/2022 [facility] Work Phone: Comment on above: Expected: 11/02/2021 , Expires: 01/02/2022 Start: 10-29-2021 Adult depression screening assessment DEPRESSION SCREENING [facility] Start: 10-07-2021 Influenza vaccination C [facility] Start: 2021 RSV Vaccine (1 - 1-d ose 75+ series) RSV Vaccine (1 - 1-dose 75+ series) [facility] Start: 05-10-2021 End: 07-10-2021 CBC W Auto Differential panel - Blood CBC + DIFF Lab Routine Monoclonal gammopathy Prostate cancer (HCC) Expected: 05/10/2021, Expires: 07/10/2021 [facility] Work Phone: Comment on above: Expected: 05/10/2021 , Expires: 07/10/2021 Start: 02-06-2021 ADVANCE DIRECTIVE DISCUSSION ADVANCE DIRECTIVE DISCUSSION [facility] Start: 02-06-2021 DEPRESSION ASSESSMENT DEPRESSION ASS ESSMENT [facility] Start: 10-07-2020 Influenza vaccination INFLUENZA (#1) [facility] Start: 08-27-2020 COVID-19 VACCINE (3 - Booster) COVID-19 VACCINE (3 - Booster) [facility] Start: 05-25-2020 COVID-19 VACCINE (3 - Booster) COVID-19 VACCINE (3 - Booster) [facility] Start: 05-25-2020 COVID-19 VACCINE (3 - Mixed Product series) COVID-19 VACCINE (3 - Mixed Product series) [facility] Start: 10-08-2019 Influenza vaccination INFLUENZA (#1) [facility] Start: 02-06-2013 Colonoscopy COLONOSCOPY [facility] Start: 02-06-2013 COLORECTAL CANCER SCREENING COLORECTAL CANCER SCREENING [facility] Start: 09-03-2011 ADVANCE DIRECTIVE DISCUSSION ADVANCE DIRECTIVE DISCUSSION [facility] Start: 09-03-2011 Pneumococcal Vaccine : 50+ (1 of 1 - PCV) Pneumococcal Vaccine: 50+ (1 of 1 - PCV) [facility] Start: 09-03-2011 Pneumococcal Vaccine : 65+ (1 - PCV) Pneumococcal Vaccine: 65+ (1 - PCV) [facility] Start: 09-03-2011 Pneumococcal Vaccine : 65+ (1 of 1 - PCV) Pneumococcal Vaccine: 65+ (1 of 1 - PCV) [facility] Start: 07-28-2012 PNEUMOCOCCAL: 65+ (1 - PCV) PNEUMOCOCCAL: 65+ (1 - PCV) [facility] Start: 09-03-2011 PNEUMOVAX AGE 65 AND OVER WITH 5YR LOOKBACK (#1) PNEUMOVAX AGE 65 AND OVER WITH 5YR LOOKBACK (#1) [facility] Start: 2006 RSV Vaccine (1 - 1-d ose 60+ series) RSV Vaccine (1 - 1-dose 60+ series) [facility] Start: 1996 Pneumococcal Vaccine : 50+ (1 of 1 - PCV) Pneumococcal Vaccine: 50+ (1 of 1 - PCV) [facility] Start: 1996 SHINGRIX VACCINE (1 of 2) GOLDSMITH GRIX VACCINE (1 of 2) [facility] Start: 1996 Tuberculosis screening COLOREC AUBRIE CANCER SCREENING,SEE MODIFIER [facility] Start: 09-03-1991 COLOGUARD (FIT-DNA) COLOGUARD (FIT-D NA) [facility] Start: 09-03-[address] COLONOGRAPHY [facility] Start: 09-03-1991 DIABETES SCREEN DIABETES SCREEN [facility] Start: 09-03-1991 FECAL OCCULT BLOOD FECAL OCCULT BLOO D [facility] Start: 09-03-1991 SIGMOIDOSCOPY SIGMOIDOSCOPY [facility] Start: 1981 LIPID SCREEN LIPID SCREEN [facility] Start: 1965 Urine microalbumin profile [facility] Start: 1964 Anxiety Screening Anxiety Screening [facility] Start: 1964 Depression Screening Depression Scre ening [facility] Start: 1964 HEPATITIS C SCREENING HEPATITIS C [facility] Start: 1964 Hepatitis C screening [facility] SIM PLANNING RADI ATION ONCOLOGY CT SIM PLANNING RADIATION ONCOLOGY Radiology Routine Malignant neoplasm of prostate (HCC) Ordered: 12/15/2022 [facility] Work Phone: Comment on above: Ordered: 12/15/2022 End: 12-15-2023 MRI PROSTATE WO/W IVCON MRI PROSTATE WO/W IVCON Radiology Routine Malignant neoplasm of prostate (HCC) 1 Occurrences starting 11/15/2022 until 12/15/2023 [facility] Work Phone: Comment on above: 1 Occurrences starti ng 11/15/2022 until 12/15/2023 [facility] Immunizations Immunization Date Immunization Notes Care Provider Fa cili 03-30-2020 COVID-19 vaccine (UNSPECIFIED) Nicolas Hwang MD Work Phone: [facility] 03-08-2020 COVID-19 vaccine (UNSPECIFIED) Nicolas Hwang MD Work Phone: [facility] NEGATED: Highlighted row has not occurred!10-23-2023 influenza virus vaccine, unspecified formulation Yosef CORNELIO [facility] [place] Payers Date Payer Category Payer Self-pay 2020 Medicare AETNA MEDICARE A ETNA MEDICARE PPO [id number] 2020-Present [phone] [address] [place] [address] PP [id number] 2020 Medicare AETNA MEDICARE A ETNA MEDICARE PPO [id number] 2020-Present [phone] [address] [place] [address] PP [id number] 2020 Medicare (Managed Care) [place] [id number] 2019 Medicare AETNA MEDICARE A ETNA MEDICARE PPO [id number] 2019-Present PPO [id number] 1959 Medicare [id number] 1946 Unknown [id number] 2.16.840.1.374682.3.579.2. 593 1946 Unknown [id number] 2.16.840.1.566727.3.579.2. 593 1946 Unknown [id number] 2.16.840.1.483640.3.579.2. 593 1946 Unknown [id number] 2.16.840.1.674338.3.579.2. 593 1946 Unknown [id number] 2.16.840.1.273199.3.579.2. 593 1946 Unknown [id number] 2.16.840.1.144915.3.579.2. 727 1946 Unknown [id number] 2.16.840.1.161359.3.579.2. 727 1946 Unknown [id number] 2.16.840.1.985715.3.579.2. 727 1946 Unknown [id number] 2.16.840.1.573427.3.579.2. 727 1946 Unknown [id number] 2.16.840.1.355138.3.579.2. 727 1946 Unknown [id number] 2.16.840.1.204941.3.579.2. 1946 Unknown [id number] 2.16.840.1.838482.3.579.2. 1946 Unknown [id number] 2.16.840.1.038696.3.579.2 1946 Unknown [id number] 2.16.840.1.941299.3.579.2. 1946 Unknown [id number] 2.16.840.1.918792.3.579.2 1946 Unknown [id number] 2.16.840.1.375430.3.579.2 1946 Unknown [id number] 2.16.840.1.001226.3.579.2 1946 Unknown [id number] 2.840.1.828448.3.579.2 1946 Unknown [id number] 2.16.840.1.424931.3.579.2 1946 Unknown [id number] 2.16.840.1.039650.3.579.2 1946 Unknown [id number] .16.840.1.600327.3.579.2 1946 Unknown [id number] .16840.1.307423.3.579.2 1946 Unknown [id number] .16.840.1.957205.3.579.2 1946 Unknown [id number] 2.16.840.1.473820.3.579.2 1946 Unknown [id number] 2.16.840.1.581785.3.579.2 1946 Unknown [id number] 2.16.840.1.847086.3.579.2 1946 Unknown [id number] 2.16.840.1.129664.3.579.2. 727 1946 Unknown [id number] 2.16.840.1.909893.3.579.2. 727 1946 Unknown [id number] 2.16.840.1.353729.3.579.2. 727 Medicare [id number] 2.16.840.1.008004.19 Unknown [id number] 2.16.840.1.607848.3.579.2. 531 Social History Date Type Detail Facility Tobacco smoking status MAIS Unknown if ever smoked [facility] Start: 1945 Sex Assigned At Not on file C [facility] Start: 10-22-2019 End: 11-02-2021 Tobacco smoking status MAIS Never smoked tobacco [facility] Comment on above: patient never a smok er denies use Start: 10-22-2019 End: 11-02-2021 Tobacco use and exposure Smokeless tobacco non-user [facility] Start: 10-29-2020 End: 06-04-2024 Alcohol intake Ex-drinker (finding) [facility] Start: 04-30-2021 End: 11-02-2021 Exposure to SARS-CoV-2 (event) Not sure [facility] Start: 06-02-2022 End: 11-15-2022 Sex Assigned At [facility] Other History of tobacco use Passive smoker [facility] Tobacco smoking status Never [facility] Comment on above: patient never a smok er denies use Start: 06-02-2022 End: 11-15-2022 History of Social function [facility] Start: 1945 Sex Assigned At Male [facility] Start: 02-24-2024 Sex Male (finding) [facility] Functional Status Date Assessment Result Facility 03-04-2024 Functional Status N/A [facility] 01-23-2024 Functional Status N/A [facility] 01-10-2024 Functional Status N/A [facility] 01-08-2024 Functional Status N/A [facility] 11-24-2023 Functional Status N/A [facility] 05-22-2023 Functional Status N/A [facility] 12-02-2022 Functional Status N/A [facility] 11-18-2022 Functional Status N/A [facility] 10-03-2022 Functional Status N/A [facility] 09-27-2021 N/A [facility] Clinical Notes 05-21-2019 to 06-04-2024 David Kumari MD - 06/04/2024 2:55 PM Letty Covarrubias RN - 06/04/2024 2:53 PM Minoo Byrne APRN.FARM ADVISOR - 05/20/2024 2:00 PM Nancy Bowen, RT(R) - 05/07/2024 1:00 PM EDT Note Date & Type Note Facility 06-04-2024 Note HNO ID: [id number] Author: David KUMARI MD Service: ? Author [...] Kumari MD cc: Shahriar Stephenson [address] [place] [address] No referring provider defined for this encounter. [facility] 06-04-2024 History of Present illness Narrative Radiation Oncology - Follow Up Note PATIENT NAME: Adolph Johns PATIENT DIAGNOSIS: Prostate adenocarcinoma, initial PSA 7.5, biopsy [place] score 4 + 3 = 7 (grade [...] by: David Kumari MD cc: Shahriar Stephenson [address] [place] [id number] No referring provider defined for this encounter. AUA= 7 documented in this encounter [facility] 06-04-2024 Note HNO ID: [id number] Author: LETTY BARAHONA RN Service: ? Author Type: Registered Nurse Type: Progress Notes Filed: 06/07/2024 10:34 Note Text: AUA= 7 [facility] 05-20-2024 History of Present illness Narrative Images [...] No difficulties with urination. Has returned from [place]! Labs stable. MEDICATIONS: abiraterone 250 mg tablet [...] or petechiae. PATHOLOGY: 11/10/2022 Bladder tumor, TURBT ([facility]) Metastatic poorly differentiated adenocarcinoma, consistent with [...] lesion. No comparison study. 10/28/2019 Skeletal survey ([facility]) Subtle oval slightly lytic-appearing lesion within [...] management per PCP/nephrology. . Minoo Gill APRN, [employer]STATE SERVICES ADMINISTRATOR-C, [facility] Provided at: [place], [place] documented in this encounter [facility] 05-20-2024 Note HNO ID: [id number] Author: MINOO GILL APRN.FARM ADVISOR Service: ? Author Type: Nurse Practitioner Type: [...] No difficulties with urination. Has returned from [place]! Labs stable. MEDICATIONS: abiraterone 250 mg tablet [...] or petechiae. PATHOLOGY: 11/10/2022 Bladder tumor, TURBT ([facility]) Metastatic poorly differentiated adenocarcinoma, consistent with [...] lesion. No comparison study. 10/28/2019 Skeletal survey ([facility]) Subtle oval slightly lytic-appearing lesion within the right femoral neck, nonspecific and may repr (more content not included)... [facility] 05-20-2024 Note Patient Education Oncology Hormone Suppression [...] cancer. Where to find more information ??? [place] Cancer Society: www.cancer.org ??? National Cancer [place]: www.cancer.gov Contact a health care provider if: [...] ??? You (more content not included)... [facility] 05-07-2024 History of Present illness Narrative [...] PATIENT PRESENTS WITH AN IMPLANTABLE OR ATTACHED ALUMINUM FABRICATION SUPERVISOR: No RADIOLOGY DEPARTMENT: General X-ray: Exam(s) Completed: Abdomen X-Ray: Abdomen PERIPHERAL IV DATA: Not applicable SIGNED BY: RT Jace(Alivia) May 07, 2024 1:20 PM documented in this encounter [facility] 05-07-2024 Note HNO ID: [id number] Author: NANCY SAENZ RT(Alivia) Service: ? Author [...] PATIENT PRESENTS WITH AN IMPLANTABLE OR ATTACHED ALUMINUM FABRICATION SUPERVISOR: No RADIOLOGY DEPARTMENT: General X-ray: Exam(s) Completed: Abdomen X-Ray: Abdomen PERIPHERAL IV DATA: Not applicable SIGNED BY: RT Jace(R) May 07, 2024 1:20 PM [facility] 03-04-2024 Hospital Discharge instructions Patient Education 03/04/2024 [...] including vitamins, herbs, eye drops, creams, and mrju-pzv-rjlmfvh medicines. Any problems you or family members [...] provider tells you to take them. Taking uxtt-yta-tgnfofn medicines, vitamins, herbs, and supplements. Tests You [...] Follow these instructions at home: Medicines Take gmln-hrk-kbugxqy and prescription medicines only as told by [...] provider. Document Revised: 10/06/2021 Document Reviewed: 09/04/2020 [employer] Patient Education 2023 [employer]. 03/04/2024 10:49:40 Prostate Cancer Screening Prostate Cancer [...] treatment? Where to find more information The [place] Cancer Society: www.cancer.org [place] Urological Association: www.auanet.org Contact a health care [...] provider. Document Revised: 07/19/2021 Document Reviewed: 07/19/2021 [employer] Patient Education 2023 [employer]. Follow Up Care 02/27/2024 15:41:35 With:CORNELIO ROSARIO, Yosef Bunch, URL Address: [facility] [address], [place] [address]- [phone] When: Unknown Comments:Has f/u 05/20/24 w/ PSA and Barak, also to schedule cysto [facility] 03-04-2024 Note Patient Education Oncology Prostate [...] Where to find more information ??? The [place] Cancer Society: www.cancer.org ??? [place] Urological Association: www.auanet.org Contact a health care [...] prostate gland (more content not included)... [facility] 02-01-2024 Note Echocardiology Procedure Exam Date/Time Accession # Ordering Dr. Decker Transthoracic w/ 01/30/2024 11:56 EST [id number] Meño Rojas MD Contrast CPT code 36615 C8929 Reason for Exam (Echo Transthoracic w/ Contrast) Abnormal ECG, Chest pain R94.31;Other (please specify) Report [facility] [address] [place] [address] Adult Echocardiogram Report Name: ADOLPH JOHNS Study Date: 01/30/2024 10:54 AM BP: 137/84 mmHg Patient Location: [facility] Ambulatory(s) [facility] HR: 80 : 1945 Gender: Male Height: 76 in Age: 78 yrs Ethnicity: [facility] Weight: 262 lb Reason For Study: [...] Reji Holloway MD Transcribed by: NETTE Technologist: [facility] 01-19-2024 History of Present illness Narrative Radiology [...] TO CHANGE TRACKING LOCATION MS BLAS 10/29/2020 7700 P.O.C.T. RESULTS: POC done: Yes, See Lab Tab January 19, 2024 TREATMENT: N/A IV SITE: Ambulatory: A peripheral IV was started in the Right hand with a Angio cath: 20 gauge. IV SITE APPEARANCE: Clean,Dry and Intact SIGNATURE: Blayne Mosqueda RN PATIENT NAME: Adolph Johns DATE: January 19, 2024 TIME: 8:37 AM documented in this encounter [facility] 01-19-2024 Note HNO ID: [id number] Author: BLAYNE MOSQUEDA RN Service: ? Author [...] TO CHANGE TRACKING LOCATION MS BLAS 10/29/2020 1346 P.O.C.T. RESULTS: POC done: Yes, See Lab Tab January 19, 2024 TREATMENT: N/A IV SITE: Ambulatory: A peripheral IV was started in the Right hand with a Angio cath: 20 gauge. IV SITE APPEARANCE: Clean,Dry and Intact SIGNATURE: Blayne Mosqueda RN PATIENT NAME: Adolph Johns DATE: January 19, 2024 TIME: 8:37 AM [facility] 01-10-2024 Hospital Discharge instructions Patient Education 01/10/2024 [...] Follow these instructions at home: Medicines Take beon-gfe-hqvbtqr and prescription medicines only as told by [...] to keep your urine pale yellow. ?Take woww-fix-mvbfizh or prescription medicines. ?Eat foods that are [...] and pain in your lower abdomen. Take hxvg-buz-kzyywgj and prescription medicines only as told by [...] provider. Document Revised: 01/28/2022 Document Reviewed: 01/28/2022 [employer] Patient Education 2023 [employer]. 01/10/2024 13:10:32 Transurethral Resection of Bladder Tumor [...] including vitamins, herbs, eye drops, creams, and adkf-zjd-nbumqqm medicines. Any problems you or family members [...] provider tells you to take them. Taking zcle-gsk-yvqrfhf medicines, vitamins, herbs, and supplements. General instructions [...] provider. Document Revised: 01/28/2022 Document Reviewed: 01/28/2022 [employer] Patient Education 2023 [employer]. Follow Up Care 01/08/2024 10:29:10 With:CORNELIO ROSARIO, Yosef Bunch, URL Address: [facility] [address], [place] [address]- When: Unknown [facility] 01-10-2024 Note Patient Education Oncology Transurethral Resection [...] these instructions at home: Medicines ??? Take wzfj-bug-emxxcvo and prescription medicines only as told by [...] keep your urine pale yellow. ? Take rgqf-xnp-uormplc or prescription medicines. ? Eat foods that [...] pain in your lower abdomen. ??? Take ytnu-ndg-cecsdab and prescription medicines only as told by [...] drainage bag. (more content not included)... [facility] 01-08-2024 Hospital Discharge instructions Patient Education [...] including vitamins, herbs, eye drops, creams, and enjn-ytt-orzsjhy medicines. Any problems you or family members [...] provider tells you to take them. Taking hxrf-tnl-rbgloxn medicines, vitamins, herbs, and supplements. Tests You [...] Follow these instructions at home: Medicines Take nnci-qyu-xwuwadb and prescription medicines only as told by [...] provider. Document Revised: 10/06/2021 Document Reviewed: 09/04/2020 [employer] Patient Education 2023 [employer]. 01/08/2024 10:14:09 Hematuria, Adult Hematuria, Adult Hematuria [...] Follow these instructions at home: Medicines Take kiev-sqh-jkyiuhj and prescription medicines only as told by [...] or the blood stops without treatment. Take rlmv-hqk-meolqrj and prescription medicines only as told by your health care provider. Drink enough fluid to keep your urine pale yellow. This information is not intended to replace advice given to you by your health care provider. Make sure you discuss any questions you have with your health care provider. Document Revised: 09/23/2020 Document Reviewed: 09/23/2020 [employer] Patient Education 2023 [employer]. Follow Up Care 01/01/2024 08:46:40 With:CORNELIO ROSARIO, Yosef Bucnh, URL Address: [facility] [address] [place] [address]- [phone] When: Unknown [facility] 01-08-2024 Note Patient Education Urology Cystoscopy [...] including vitamins, herbs, eye drops, creams, and delm-dim-bvlnxgp medicines. ??? Any problems you or family [...] tells you to take them. ??? Taking zqas-cyc-jxxnezm medicines, vitamins, herbs, and supplements. Tests You [...] these instructions at home: Medicines ??? Take uxpd-lxn-uimucfs and prescription medicines only as told by [...] during your (more content not included)... [facility] 01-01-2024 Telephone encounter Note Pt returned call and was notified. Peggy Lakhani RN [facility] 01-01-2024 Miscellaneous Notes Pt returned [...] Letty Barahona RN documented in this encounter [facility] 01-01-2024 Telephone encounter Note I left a message for Adolph to call the office. Letty Barahona RN [facility] 12-29-2023 Telephone encounter Note Attempted to call patient with Dr. Kumari's recommendation but there was no answer. Letty Barahona RN [facility] 12-29-2023 Telephone [...] scans. Please advise. Letty Barahona RN [facility] 11-24-2023 Hospital [...] similar to normal prostate cells (well differentiated). [place] 7: This indicates that the cancer cells look somewhat similar to normal prostate cells (moderately differentiated). [place] 8, 9, or 10: This indicates that [...] stress of having cancer. General instructions Take vhmi-jsc-catkyqa and prescription medicines only as told by your health care provider. If you have to go to the hospital, notify your cancer specialist (oncologist). Keep all follow-up visits. This is important. Where to find more information [place] Cancer Society: www.cancer.org [place] Society of Clinical Oncology: www.cancer.net National Cancer [place]: www.cancer.gov Contact a health care provider if: [...] provider. Document Revised: 04/21/2021 Document Reviewed: 04/21/2021 [employer] Patient Education 2023 [employer]. Follow Up Care 05/22/2023 12:03:30 With:CORNELIO ROSARIO, Yosef Bunch, URL Address: [address] [place] [address]- When: Unknown [facility] Manoj 11-24-2023 Note Patient Education Oncology Prostate [...] to normal prostate cells (moderately differentiated). ? [place] 8, 9, or 10: This indicates that [...] prostate gla (more content not included)... [facility] 11-16-2023 History of Present illness Narrative Radiation Oncology - Follow Up Note PATIENT NAME: Adolph Jonhs PATIENT DIAGNOSIS: Prostate adenocarcinoma, initial PSA 7.5, [...] ASSESSMENT/PLAN: Prostate adenocarcinoma, initial PSA 7.5, biopsy [place] score 4 + 3 = 7 (grade [...] by: David Kumari MD cc: Shahriar Stephenson [address] [place] [address] No referring provider defined for this encounter. documented in this encounter [facility] 11-16-2023 Note HNO ID: [id number] Author: David KUMARI MD Service: ? Author Type: Physician Type: Progress Notes Filed: 11/24/2023 14:26 Note Text: Radiation Oncology - Follow Up Note PATIENT NAME: Adolph Johns PATIENT DIAGNOSIS: Prostate adenocarcinoma, initial PSA 7.5, biopsy [place] score 4 + 3 = 7 (grade [...] oncology. Signed by: David Kumari MD cc: hSahriar Stephenson [address] [place] [id number] No referring provider defined for this encounter. [facility] 11-16-2023 Nurse Note JACK Lakhani RN [facility] 11-16-2023 Nurse Note JACK Lakhani RN documented in this encounter [facility] 11-15-2023 Note HNO ID: [id number] Author: NICOLAS HWANG MD Service: ? Author [...] with urination. He plans to travel to [place] next week where he plans to spend [...] or petechiae. PATHOLOGY: 11/10/2022 Bladder tumor, TURBT ([facility]) Metastatic poorly differentiated adenocarcinoma, consistent with [...] lesion. No comparison study. 10/28/2019 Skeletal survey ([facility]) Subtle oval slightly lytic-appearing lesion within the right femoral neck, nonspecific and may represent summation ar (more content not included)... [facility] 11-15-2023 History of Present illness Narrative PATIENT [...] with urination. He plans to travel to [place] next week where he plans to spend [...] or petechiae. PATHOLOGY: 11/10/2022 Bladder tumor, TURBT ([facility]) Metastatic poorly differentiated adenocarcinoma, consistent with [...] lesion. No comparison study. 10/28/2019 Skeletal survey ([facility]) Subtle oval slightly lytic-appearing lesion within [...] continue Eligard every [address] Grimse. I will see him back in May 2024 after he returns from [place] to [place]. 2. Monoclonal gammopathy - [...] Nicolas Hwang MD documented in this encounter [facility] 10-23-2023 Note Patient Education Nutrition [...] for Disease Control and Prevention: cdc.gov ? [place] Heart Association: heart.org ? National Heart, Lung, and Blood [place]: nhlbi.nih.gov This information is not intended to replace advice given to you by your health care provider. Make sure you discuss any questions you have with your health care provider. Document Revised: 10/13/2022 Document Reviewed: 10/06/2022 [employer] Patient Education ? 2023 [employer] DASH Eating Plan DASH stands for [...] each day (more content not included)... [facility] 05-22-2023 Hospital Discharge instructions Patient Education [...] advanced cancer. Where to find more information [place] Cancer Society: www.cancer.org National Cancer [place]: www.cancer.gov Contact a health care provider if: [...] provider. Document Revised: 05/06/2021 Document Reviewed: 05/06/2021 [employer] Patient Education 2022 [employer]. Follow Up Care 12/02/2022 13:08:27 With:CORNELIO ROSARIO, Yosef Bunch, URL Address: [facility] [address] [place] [phone] When: Unknown Comments:6 mos w/ PSA (gets level from [facility]) [facility] Manoj 05-18-2023 History of Present illness Narrative Radiation Oncology - Follow Up Note PATIENT NAME: Adolph Johns PATIENT DIAGNOSIS: Prostate adenocarcinoma, initial PSA 7.5, biopsy [place] score 4 + 3 = 7 (grade [...] by: David Kumari MD cc: Shahriar Stephenson [address] [place] [address] No referring provider defined for this encounter. documented in this encounter [facility] 05-18-2023 Nurse Note AUA 5 Peggy Lakhani RN documented in this encounter [facility] 05-18-2023 History of Present illness Narrative [...] or petechiae. PATHOLOGY: 11/10/2022 Bladder tumor, TURBT ([facility]) Metastatic poorly differentiated adenocarcinoma, consistent with [...] lesion. No comparison study. 10/28/2019 Skeletal survey ([facility]) Subtle oval slightly lytic-appearing lesion within [...] (moderate) Continue management per PCP/nephrology. Elio Payne APRN.FARM ADVISOR CC: Dr. Cook, Dr. Grimes I spent a total of 30 minutes on the date of the service which included preparing to see the patient, fqln-bf-bgxg patient care, completing clinical documentation, obtaining and/or reviewing separately obtained history, performing a medically appropriate examination, counseling and educating the patient/family/caregiver, ordering medications, tests, or procedures, independently interpreting results (not separately reported), and communicating results to the patient/family/caregiver. documented in this encounter [facility] 05-08-2023 Miscellaneous Notes Patient coming in 05/18/23 for follow up with labs. Please add lab orders. Bettina El MA documented in this encounter [facility] 01-26-2023 History of Present illness Narrative Boost set up films reviewed documented in this encounter [facility] 01-17-2023 History of Present illness Narrative Boost reese reviewed. documented in this encounter [facility] 01-16-2023 History of Present illness [...] David Kumari MD documented in this encounter [facility] 01-11-2023 History of Present illness Narrative ADOLPH JOHNS [id number] 01/11/2023 [facility] Department of Radiation Oncology Treatment Planning [...] M.D. 31:35 PM documented in this encounter [facility] 01-09-2023 Miscellaneous Notes I notified [...] Letty Barahona RN documented in this encounter [facility] 01-06-2023 Miscellaneous Notes The following approved medication requests have been transmitted electronically. Requested Prescriptions Signed Prescriptions Disp Refills potassium chloride (K-TAB) 10 mEq tablet 30 tablet 3 Sig: Take 1 tablet by mouth once daily. Authorizing Provider: ELIO PAYNE APRN.FARM ADVISOR Mr. Johns notified of low potassium and [...] mEq 1 daily. documented in this encounter [facility] 01-05-2023 History of Present illness [...] visit his bladder biopsy was reviewed by [facility] pathology, and the diagnosis of poorly differentiated [...] or petechiae. PATHOLOGY: 11/10/2022 Bladder tumor, TURBT ([facility]) Metastatic poorly differentiated adenocarcinoma, consistent with [...] lesion. No comparison study. 10/28/2019 Skeletal survey ([facility]) Subtle oval slightly lytic-appearing lesion within [...] patient plans to spend the winter in [place] after radiation is completed. I will see [...] Cook, Dr. Grimes documented in this encounter [facility] 01-02-2023 History of Present illness Narrative Radiation Oncology - On Treatment Review (OTR) Note PATIENT NAME: Adolph Johns PATIENT DIAGNOSIS: Prostate adenocarcinoma, initial PSA 7.5, biopsy [place] score 4 + 3 = 7 (grade [...] David Kumari MD documented in this encounter [facility] 12-26-2022 History of Present illness Narrative Radiation Oncology - On Treatment Review (OTR) Note PATIENT NAME: Adolph Johns PATIENT DIAGNOSIS: Prostate adenocarcinoma, initial PSA 7.5, biopsy [place] score 4 + 3 = 7 (grade [...] David Kumari MD documented in this encounter [facility] 12-22-2022 Nurse Note Adolph Johns presents in office today for: Lab Draw only . Ordering Provider: Damien Kumari M.D. Test (s) ordered: CBC Method for obtaining blood: Phlebotomy was performed, accessing left antecubital vein. Needle removed intact. Dressing secured. Patient denies discomfort, dizziness, light-headedness or weakness and left the department without assist. Letty Barahona LPN documented in this encounter [facility] 12-19-2022 Miscellaneous Notes Patient is scheduled for 12/21/2022 at 10:30AM with Dr Leila Evans at [facility]. I called and let him know appt day and time. documented in this encounter [facility] 12-19-2022 History of Present illness Narrative Radiation Oncology - On Treatment Review (OTR) Note PATIENT NAME: Adolph Johns PATIENT DIAGNOSIS: Prostate adenocarcinoma, initial PSA 7.5, biopsy [place] score 4 + 3 = 7 (grade [...] lesion unrelated we will have him see hypoid gear generator. Chart and imaging reviewed. Continue radiation as outlined. David Kumari MD documented in this encounter [facility] 12-15-2022 Miscellaneous Notes ORAL ANTI-CANCER [...] Nancy Ray RN documented in this encounter [facility] 12-14-2022 History of Present illness [...] David Kumari MD documented in this encounter [facility] 12-08-2022 History of Present illness Narrative ADOLPH JOHNS [id number] 12/08/2022 [facility] Department of Radiation Oncology Treatment Planning [...] M.D. 33:30 PM documented in this encounter [facility] 12-02-2022 Hospital Discharge instructions Patient [...] under a microscope. This is called the [place] score and the total score can range from 6 10, indicating how likely it is that the cancer will spread (metastasize) to other parts of the body. The higher the score, the greater the likelihood that the cancer will spread. [place] 6 or lower: This indicates that the cancer cells look similar to normal prostate cells (well differentiated). [place] 7: This indicates that the cancer cells look somewhat similar to normal prostate cells (moderately differentiated). [place] 8, 9, or 10: This indicates that [...] stress of having cancer. General instructions Take dokc-upa-gstlloq and prescription medicines only as told by your health care provider. If you have to go to the hospital, notify your cancer specialist (oncologist). Keep all follow-up visits. This is important. Where to find more information [place] Cancer Society: www.cancer.org [place] Society of Clinical Oncology: www.cancer.net National Cancer [place]: www.cancer.gov Contact a health care provider if: [...] provider. Document Revised: 04/21/2021 Document Reviewed: 04/21/2021 [employer] Patient Education 2022 [employer]. Follow Up Care 11/28/2022 15:36:16 With:CORNELIO ROSARIO, Yosef Bunch, URL Address: [address] [place] [id number]- When: Unknown [facility] 12-01-2022 Nurse Note Radiation Therapy - Patient Education Note PATIENT NAME: Adolph Johns PATIENT December 01, 2022 [facility] [place]/LOCATION: [facility] READINESS TO LEARN Cognitive Ability: Alert [...] need for social work, van service, and silk soaker. Was approved? No Signed by: Letty Barahona LPN documented in this encounter [facility] 11-28-2022 History of Present illness [...] 2022 12:01 PM documented in this encounter [facility] 11-18-2022 Hospital Discharge instructions Patient [...] under a microscope. This is called the [place] score and the total score can range from 6 10, indicating how likely it is that the cancer will spread (metastasize) to other parts of the body. The higher the score, the greater the likelihood that the cancer will spread. Coreen 6 or lower: This indicates that the cancer cells look similar to normal prostate cells (well differentiated). [place] 7: This indicates that the cancer cells look somewhat similar to normal prostate cells (moderately differentiated). [place] 8, 9, or 10: This indicates that [...] stress of having cancer. General instructions Take xlcs-bde-clcywba and prescription medicines only as told by your health care provider. If you have to go to the hospital, notify your cancer specialist (oncologist). Keep all follow-up visits. This is important. Where to find more information [place] Cancer Society: www.cancer.org [place] Society of Clinical Oncology: www.cancer.net National Cancer [place]: www.cancer.gov Contact a health care provider if: [...] Document Reviewed: 04/21/2021 Elsevier Patient Education 2022 [employer]. Follow Up Care 11/01/2022 16:31:02 With:CORNELIO ROSARIO, Yosef Bunch, URL Address: [facility] [address] [place] [phone] When: Unknown [facility] 11-15-2022 History of Present illness Narrative Radiation Oncology - Prostate Cancer New Patient/Consult Note PATIENT NAME: Adolph Johns PATIENT REQUESTING PROVIDER: Dr. Grimes DIAGNOSIS: 77 year old male with prostate adenocarcinoma, initial PSA 7.5, biopsy [place] score 4 + 3 = 7 (grade [...] an elevated PSA of 7.5, biopsy showing [place] 7 (4+3) adenocarcinoma. No evidence of metastasis on staging. He underwent nerve sparing radical retropubic prostatectomy and bilateral pelvic lymphadenectomy on 01/07/2016. Pathology revealed adenocarcinoma, Coreen 8 (4+4), no evidence of extraprostatic extension, no seminal vesicle invasion, margins uninvolved, perineural invasion was seen, 2 regional lymph nodes removed without evidence of metastasis.[id number] Post prostatectomy PSA undetectable. However PSA has [...] Kumari MD cc: Shahriar Stephenson [address] [place] [address] Ysoef Grimes [address] [place] [address] documented in this encounter [facility] 10-28-2022 History of Present illness [...] safety can be found using this link: [email or web address] SIGNATURE: RT Jace(R) PATIENT NAME: Adolph Johns DATE: October 28, 2022 TIME: 1:51 PM PAGER/CONTACT #: documented in this encounter [facility] 10-09-2022 Evaluation note Encounter Date [...] Patient states he did [address]yjs-kkm-sjxx ter test that were positive for nitrites. Patient appears nontoxic and will be treated for UTI according to his symptoms. Stressed the need for the patient to go to the ER for any worsening fevers, vomiting, abdominal pain, back pain. Patient agrees with this plan. [employer] Other 09-01-2023 Miscellaneous Notes* Telephone Encounter - Brook Ambrosio - 10/07/2022 11:51 AM EDT Patient has been scheduled. 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 Is this request for a Main [place] PET scan appointment? Yes: Captain'S Assistant: Melodie Ladd Requesting Person Dr landers (external order scanned in along with auth) Name): Area Code + Phone/Pager: [phone] Who do we call to schedule this appointment? PSMA please route to Lucila saenz in [place] (external orders) Requesting Staff Dr grimes Area Code + Phone/Pager: [phone] PET Orders (A delay in scheduling will result if the orders are not present at time of review): External. Has the External Clinical Order been scanned into [employer]? Yes ADDITIONAL ACTION MAY BE REQUIRED IF [...] P COORD REVIEW MC [facility] Hospital Discharge instructions Patient Education [...] including vitamins, herbs, eye drops, creams, and lsht-bwh-gvkfanz medicines. Any problems you or family members [...] provider tells you to take them. Taking wemz-edk-unfbhvb medicines, vitamins, herbs, and supplements. Tests You [...] Follow these instructions at home: Medicines Take ugme-hhm-evoonft and prescription medicines only as told by [...] provider. Document Revised: 10/06/2021 Document Reviewed: 09/04/2020 [employer] Patient Education 2022 [employer]. 10/03/2022 15:02:31 Hematuria, Adult Hematuria, Adult Hematuria [...] Follow these instructions at home: Medicines Take rvus-fuc-uykkkpl and prescription medicines only as told by [...] or the blood stops without treatment. Take vvkk-uoh-qkqkltp and prescription medicines only as told by your health care provider. Drink enough fluid to keep your urine pale yellow. This information is not intended to replace advice given to you by your health care provider. Make sure you discuss any questions you have with your health care provider. Document Revised: 09/23/2020 Document Reviewed: 09/23/2020 [employer] Patient Education 2022 [employer]. Follow Up Care 09/27/2021 10:53:03 With:CORNELIO ROSARIO, Yosef R, URL Address: [facility] [address], [place] [address]- [phone] When: Unknown Comments:sched cysto and PSMA PET scan [facility] 04-27-2023 History of Present illness Narrative* Elio Payne APRN.FARM ADVISOR - 06/02/2022 2:06 PM EDT PATIENT NAME: [...] today. He spent the winter months in [place]. MEDICATIONS: lisinopril-hydrochlorothiazide (PRINZIDE,ZESTORETIC) 10-12.5 mg per tablet [...] lesion. No comparison study. 10/28/2019 Skeletal survey ([facility]) Subtle oval slightly lytic-appearing lesion within [...] (moderate) Continue management per PCP/nephrology. Elio Payne APRN.FARM ADVISOR CC: Dr. Gabriela Nesbitt spent a total of 20 minutes on the date of the service which included preparing to see the patient, etkc-rg-qifu patient care, completing clinical documentation, obtaining and/or reviewing separately obtained history, performing a medically appropriate examination, counseling and educating the pat ient/family/caregiver, ordering medications, tests, or procedures, independently interpreting results (not separately reported), and communicating results to the patient/family/caregiver. [facility] Miscellaneous Notes* Telephone Encounter - [...] back as scheduled. Thanks, [facility] History of Present illness Narrative* [...] involvinghis right groin area. FNA obtained 08/16/2021 ([facility]) revealed changes suggestive of fatnecrosis and [...] lesion. No comparison study. 10/28/2019 Skeletal survey ([facility]) Subtle oval slightly lytic-appearing lesion within [...] in 7 months (after he returns from [place]). We will then see him every 6 [...] MD CC: Dr. Cook documented [facility] Hospital Discharge instructions Patient Education [...] including vitamins, herbs, eye drops, creams, and ypsd-izj-fxjyfsl medicines. This also includes: ?Medicines to assist [...] 02/25/2005 Document Revised: 01/05/2018 Document Reviewed: 10/30/2017 [employer]obee Patient Education 2020 [employer] 09/27/2021 10:40:10 Calorie Counting for Weight [...] 01/23/2006 Document Revised: 10/12/2018 Document Reviewed: 12/23/2016 [employer]ee Patient Education 2020 [employer]. Follow Up Care 10/22/2020 15:01:04 With:CORNELIO ROSARIO, Yosef Bunch, URL Address: [address] [place] [address] [place] [address]- Business (1) When:Within 1 Year(s) Comments:w/PSA [facility] 06-27-2022 Miscellaneous Notes* Telephone Encounter - Nicolas Hwang MD - 08/02/2021 5:00 PM EDT The patient was found to have a cystic mass in his groin. He will undergo an ultrasound-guided biopsy at [facility]. Dr. Chanel will inform me of the results. If benign I will see him back in Octoberas scheduled. If malignant I will see him after the biopsy to discuss further work-up and treatment. Thanks, BRKris * Telephone Encounter - Melodie Patel Sec - 08/02/2021 1:42 PM EDT Please call Dr Darío burns Adolph Phone number is [phone] thanks! [facility] Miscellaneous Notes* Telephone Encounter - [...] as planned. GABI El documented in [facility] Miscellaneous Notes* Telephone Encounter - [...] as planned. GABI El documented [facility] Miscellaneous Notes* Telephone Encounter - Bettina Sargent - 10/21/2021 1:38 PM EDT Patient scheduled to see you on Monday11/02/21 for follow up with labs. Please add lab orders. Thanks. Bettina Sargent MA documented in [facility] Evaluation note* Encounter Date Diagnosis [...] Patient care instructions given in writting by [facility] Care At Home document. [employer] Other 04-14-2020 Evaluation + Plan note Future Appointments Appointment Date:01/30/2024 11:00:00 AM Scheduled [facility] Type:CV Echo () Appointment Date:05/20/2024 12:45:00 PM Scheduled Provider:Yosef GRIMES MD Location:[facility] Appointment Type:URO Office Visit Appointment Date:10/24/2024 11:00:00 AM Scheduled Provider: Location:[facility] Appointment Type:FM Medicare Wellness Subsequent Future Scheduled Tests Radiology* Echo Transthoracic Complete 01/30/24 [facility] Evaluation + Plan note Future Appointments Appointment Date:09/26/2022 10:15:00 AM Scheduled Provider:Yosef GRIMES MD Location:[facility] Appointment Type:URO Office Visit Diagnostic Tests Pending * PSA Total 09/27/21 [facility] evaluation + Plan note Future Appointments Appointment Date:10/11/2022 01:00:00 PM Scheduled Provider: Location:[facility] Appointment Type: Medicare Wellness Subsequent [facility] evaluation + Plan note Future Appointments Appointment Date:11/18/2022 11:00:00 AM Scheduled Provider:[facility]IMES [facility] Type:[facility]O Office Visit Appointment Date:10/13/2023 01:00:00 PM Scheduled Provider: Location:[facility] Appointment Type: Medicare Wellness Subsequent Diagnostic Tests Pending * UroVysion Fish and Urine Cyto ([facility]) [facility]ments Appointment Date:10/13/2023 01:00:00 PM Scheduled Provider: Location:[facility] Appointment Type:FM Medicare Wellness Subsequent [facility] evaluation + Plan note Future Appointments Appointment Date:05/22/2023 11:15:00 AM Scheduled Provider:Yosef GRIMES MD [facility] Type:URO Office Visit Appointment Date:10/13/2023 01:00:00 PM Scheduled Provider: Location:[facility] Appointment Type: Medicare Wellness Subsequent Diagnostic Tests Pending * PSA Total 04/07/23 [facility] evaluation + Plan note Future Appointments Appointment Date:10/23/2023 01:00:00 PM Scheduled Provider: Location:[facility] Appointment Type: Medicare Wellness Subsequent Appointment Date:11/24/2023 11:00:00 AM Scheduled Provider:Yosef GRIMES MD [facility] Type:URO Office Visit [facility] evaluation + Plan note Future Appointments Appointment Date:05/20/2024 12:45:00 PM Scheduled Provider:Yosef GRIMES MD [facility] Type:URO Office Visit Appointment Date:10/24/2024 11:00:00 AM Scheduled Provider: Location:[facility] Appointment Type: Medicare Wellness Subsequent Diagnostic Tests Pending * PSA Total 03/09/24 [facility] evaluation + Plan note Future Appointments Appointment Date:01/08/2024 09:00:00 AM Scheduled Provider:Yosef GRIMES MD [facility] Type:URO Office Visit Appointment Date:05/20/2024 12:45:00 PM Scheduled Provider:[facility] Type:[facility] Office Visit Appointment Date:10/24/2024 11:00:00 AM Scheduled Provider: Location:[facility] Appointment Type: Medicare Wellness Subsequent [facility] evaluation + Plan note Future Appointments Appointment Date:01/08/2024 09:00:00 AM Scheduled Provider:Yosef GRIMES MD [facility] Type:URO Office Visit Appointment Date:05/20/2024 12:45:00 PM Scheduled Provider:Yosef GRIMES [facility] Type:URO Office Visit Appointment Date:10/24/2024 11:00:00 AM Scheduled Provider: Location:[facility] Appointment Type: Medicare Wellness Subsequent Diagnostic Tests Pending * Urine Culture 01/01/24 [facility] evaluation + Plan note Future Appointments Appointment Date:01/10/2024 01:00:00 PM Scheduled Provider:Yosef GRIMES MD Location:[facility] Appointment Type:URO Procedure 15 min Appointment Date:05/20/2024 12:45:00 PM Scheduled Provider:Yosef GRIMES MD [facility] App[facility] Type:URO Office Visit Appointment Date:10/24/2024 11:00:00 AM Scheduled Provider: Location:[facility] Appointment Type:FM Medicare Wellness Subsequent Diagnostic Tests Pending * Urine Cytology ([facility]) 01/08/24 [facility] evaluation + Plan note Future Appointments Appointment Date:01/10/2024 01:00:00 PM Scheduled Provider:Yosef GRIMES MD Location[facility] Appointment Type:URO Procedure 15 min Appointment Date:05/20/2024 12:45:00 PM Scheduled Provider:Yosef GRIMES MD [facility] App[facility] Type:URO Office Visit Appointment Date:10/24/2024 11:00:00 AM Scheduled Provider: Location:[facility] Appointment Type:FM Medicare Wellness Subsequent [facility] evaluation + Plan note Future Appointments Appointment Date:01/26/2024 08:45:00 AM Scheduled Provider:Yosef GRIMES MD [facility] App[facility] Type:URO Office Visit Appointment Date:05/20/2024 12:45:00 PM Scheduled Provider:Yosef GRIMES MD [facility] Appointment Type:URO Office Visit Appointment Date:10/24/2024 11:00:00 AM Scheduled Provider: Location:[facility] Appointment Type: Medicare Wellness Subsequent [facility] Evaluation + Plan note Future Appointments Appointment Date:02/28/2024 08:45:00 AM Scheduled Provider:Yosef GRIMES MD Location:[facility] Appointment Type:URO Office Visit Appointment Date:05/20/2024 12:45:00 PM Scheduled Provider:Yosef GRIMES MD [facility] App[facility] Type:URO Office Visit Appointment Date:10/24/2024 11:00:00 AM Scheduled Provider: Location:[facility] Appointment Type: Medicare Wellness [facility] Evaluation + Plan note Future Appointments Appointment Date:03/04/2024 09:30:00 AM Scheduled Provider:Yosef GRIMES MD [facility] App[facility] Type:URO Office Visit Appointment Date:05/20/2024 12:45:00 PM Scheduled Provider:Yosef GRIMES MD Location[facility] Appointment Type:URO Office Visit Appointment Date:10/24/2024 11:00:00 AM Scheduled [facility]: Medicare Wellness Subsequent [facility] evaluation + Plan note Future Appointments Appointment Date:05/20/2024 12:45:00 PM Scheduled Provider:Yosef GRIMES MD Location:[facility] Appointment Type:URO Office Visit Appointment Date:10/24/2024 11:00:00 AM Scheduled Provider: Location:[facility] Appointment Type:FM Medicare Wellness Subsequent [facility] evaluation note* Diagnosis Monoclonal gammopathy- [...] [facility] noteNo assessment information availableUc Health Work Phone: Evaluation note* Diagnosis Malignant neoplasm [...] (HCC) Thrombocytopenia, unspecified [facility] Diagnosis Malignant neoplasm of prostate (HCC)- Primary Malignant neoplasm of prostate [facility] Diagnosis Malignant neoplasm of prostate (HCC)- Primary Malignant neoplasm of prostate documented in this encounter [facility] note* Diagnosis Prostate cancer (HCC)- Primary Malignant neoplasm of prostate Monoclonal gammopathy Monoclonal paraproteinemia documented in this encounter [facility] note* Diagnosis Prostate cancer (HCC)- Primary Malignant neoplasm of prostate Monoclonal gammopathy Monoclonal paraproteinemia Chronic renal insufficiency, stage 3 (moderate) (HCC) Essential hypertension Unspecified essential hypertension documented in this encounter [facility] note* Diagnosis Malignant neoplasm of prostate (HCC)- Primary Malignant neoplasm of prostate [facility] Diagnosis Prostate cancer (HCC)- Primary Malignant neoplasm of prostate Monoclonal gammopathy Monoclonal paraproteinemia documented in this encounter [facility] note* Diagnosis Malignant neoplasm of prostate (HCC)- Primary Malignant neoplasm of prostate documented in this encounter [facility] note* Diagnosis Monoclonal gammopathy- Primary Monoclonal paraproteinemia Prostate cancer (HCC) Malignant neoplasm of prostate Chronic renal insufficiency, stage 3 (moderate) (HCC) documented in this encounter [facility] general Narrative - Reported* Type Description Date Medical History hypertension Medical History HYPONATREMIA Medical History ACUTE CHRONIC RENAL FAILURE Medical History PLEURISY Surgical History cancer, skin Lip and Hand 1999 Surgical History PROSTATECTOMY Surgical History SKIN LESIONS REMOVED X2 09/2020 Hospitalization History SEE ABOVE Hospitalization History PNEUMONIA AT AGE 7 [employer] Other Hospital course Narrative No data available for this section [facility] Hospital Discharge instructions No data available for this section [facility] No data available for this section [facility] Summary Purpose Family History No Family [...] MDM 60-74 MINUTES David Kumari MD [address] [place] [address] [place] [address] Referral ID Status Reason Start Date Expiration Date Visits Requested Visits Authorized [id number] Pending Review PCP Requested Referral 3 12/19/2023 1 1 Specialty Diagnoses / Procedures Referred By Contac t Referred To Contact Diagnoses Malignant neoplasm of prostate (HCC) Procedures CT SIM PLANNING RADIATION ONCOLOGY THER RAD SIMULAJ-AIDED FIELD SETTING COMPLEX David Kumari MD [address] [place] [address] [place] [address] Referral ID Status Reason Start Date Expiration Date Visits Requested Visits Authorized [id number] Pending Review PCP Requested Referral 12/15/2022 03/08/2023 1 1 Specialty Diagnoses / Procedures Referred By Contac t Referred To Contact MR IMAGING Diagnoses Malignant neoplasm of prostate (HCC) Procedures MRI PROSTATE WO/W IVCON MRI PELVIS W/O & W/CONTRAST MATERIAL David Kumari MD [address] [place] [address] [place] [address] [place] [address] Referral ID Status Reason Start Date Expiration Date Visits Requested Visits Authorized [id number] Pending Review Auto-Generat ed Referral 3 12/15/2023 1 1 Additional Source Comments Source Comments (unrecognize d section and content) In the event this informatio n is protected by the Federal Confidentiality of Alcohol and Drug Abuse Patient Records regulations: The Federal rules restrict any use of the information to criminally investigate or prosecute any alcohol or drug abuse patient.[facility] the event this information is protected by the Federal Confidentiality of Alcohol and Drug Abuse Patient Records regulations: The Federal rules restrict any use of the information to criminally investigate or prosecute any alcohol or drug abuse patient.[facility] HospitalIn the event this information is protected by the Federal Confidentiality of Alcohol and Drug Abuse Patient Records regulations: The Federal rules restrict any use of the information to criminally investigate or prosecute any alcohol or drug abuse patient.[facility] HospitalIn the event this information is protected by the Federal Confidentiality of Alcohol and Drug Abuse Patient Records regulations: The Federal rules restrict any use of the information to criminally investigate or prosecute any alcohol or drug abuse patient.[facility] HospitalIn the event this information is protected by the Federal Confidentiality of Alcohol and Drug Abuse Patient Records regulations: The Federal rules restrict any use of the information to criminally investigate or prosecute any alcohol or drug abuse patient.[facility] HospitalIn the event this information is protected by the Federal Confidentiality of Alcohol and Drug Abuse Patient Records regulations: The Federal rules restrict any use of the information to criminally investigate or prosecute any alcohol or drug abuse patient.[facility] HospitalIn the event this information is protected by the Federal Confidentiality of Alcohol and Drug Abuse Patient Records regulations: The Federal rules restrict any use of the information to criminally investigate or prosecute any alcohol or drug abuse patient.[facility] HospitalIn the event this information is protected by the Federal Confidentiality of Alcohol and Drug Abuse Patient Records regulations: The Federal rules restrict any use of the information to criminally investigate or prosecute any alcohol or drug abuse patient.[facility] HospitalIn the event this information is protected by the Federal Confidentiality of Alcohol and Drug Abuse Patient Records regulations: The Federal rules restrict any use of the information to criminally investigate or prosecute any alcohol or drug abuse patient.[facility] HospitalIn the event this information is protected by the Federal Confidentiality of Alcohol and Drug Abuse Patient Records regulations: The Federal rules restrict any use of the information to criminally investigate or prosecute any alcohol or drug abuse patient.[facility] HospitalIn the event this information is protected by the Federal Confidentiality of Alcohol and Drug Abuse Patient Records regulations: The Federal rules restrict any use of the information to criminally investigate or prosecute any alcohol or drug abuse patient.[facility] HospitalIn the event this information is protected by the Federal Confidentiality of Alcohol and Drug Abuse Patient Records regulations: The Federal rules restrict any use of the information to criminally investigate or prosecute any alcohol or drug abuse patient.[facility] HospitalIn the event this information is protected by the Federal Confidentiality of Alcohol and Drug Abuse Patient Records regulations: The Federal rules restrict any use of the information to criminally investigate or prosecute any alcohol or drug abuse patient.[facility] HospitalIn the event this information is protected by the Federal Confidentiality of Alcohol and Drug Abuse Patient Records regulations: The Federal rules restrict any use of the information to criminally investigate or prosecute any alcohol or drug abuse patient.[facility] HospitalIn the event this information is protected by the Federal Confidentiality of Alcohol and Drug Abuse Patient Records regulations: The Federal rules restrict any use of the information to criminally investigate or prosecute any alcohol or drug abuse patient.[facility] HospitalIn the event this information is protected by the Federal Confidentiality of Alcohol and Drug Abuse Patient Records regulations: The Federal rules restrict any use of the information to criminally investigate or prosecute any alcohol or drug abuse patient.[facility] HospitalIn the event this information is protected by the Federal Confidentiality of Alcohol and Drug Abuse Patient Records regulations: The Federal rules restrict any use of the information to criminally investigate or prosecute any alcohol or drug abuse patient.[facility] HospitalIn the event this information is protected by the Federal Confidentiality of Alcohol and Drug Abuse Patient Records regulations: The Federal rules restrict any use of the information to criminally investigate or prosecute any alcohol or drug abuse patient.[facility] HospitalIn the event this information is protected by the Federal Confidentiality of Alcohol and Drug Abuse Patient Records regulations: The Federal rules restrict any use of the information to criminally investigate or prosecute any alcohol or drug abuse patient.[facility] HospitalIn the event this information is protected by the Federal Confidentiality of Alcohol and Drug Abuse Patient Records regulations: The Federal rules restrict any use of the information to criminally investigate or prosecute any alcohol or drug abuse patient.[facility] HospitalIn the event this information is protected by the Federal Confidentiality of Alcohol and Drug Abuse Patient Records regulations: The Federal rules restrict any use of the information to criminally investigate or prosecute any alcohol or drug abuse patient.[facility] HospitalIn the event this information is protected by the Federal Confidentiality of Alcohol and Drug Abuse Patient Records regulations: The Federal rules restrict any use of the information to criminally investigate or prosecute any alcohol or drug abuse patient.[facility] HospitalIn the event this information is protected by the Federal Confidentiality of Alcohol and Drug Abuse Patient Records regulations: The Federal rules restrict any use of the information to criminally investigate or prosecute any alcohol or drug abuse patient.[facility] HospitalIn the event this information is protected by the Federal Confidentiality of Alcohol and Drug Abuse Patient Records regulations: The Federal rules restrict any use of the information to criminally investigate or prosecute any alcohol or drug abuse patient.[facility] HospitalIn the event this information is protected by the Federal Confidentiality of Alcohol and Drug Abuse Patient Records regulations: The Federal rules restrict any use of the information to criminally investigate or prosecute any alcohol or drug abuse patient.[facility] HospitalIn the event this information is protected by the Federal Confidentiality of Alcohol and Drug Abuse Patient Records regulations: The Federal rules restrict any use of the information to criminally investigate or prosecute any alcohol or drug abuse patient.[facility] HospitalIn the event this information is protected by the Federal Confidentiality of Alcohol and Drug Abuse Patient Records regulations: The Federal rules restrict any use of the information to criminally investigate or prosecute any alcohol or drug abuse patient.[facility] HospitalIn the event this information is protected by the Federal Confidentiality of Alcohol and Drug Abuse Patient Records regulations: The Federal rules restrict any use of the information to criminally investigate or prosecute any alcohol or drug abuse patient.[facility] HospitalIn the event this information is protected by the Federal Confidentiality of Alcohol and Drug Abuse Patient Records regulations: The Federal rules restrict any use of the information to criminally investigate or prosecute any alcohol or drug abuse patient.[facility] HospitalIn the event this information is protected by the Federal Confidentiality of Alcohol and Drug Abuse Patient Records regulations: The Federal rules restrict any use of the information to criminally investigate or prosecute any alcohol or drug abuse patient.[facility] HospitalIn the event this information is protected by the Federal Confidentiality of Alcohol and Drug Abuse Patient Records regulations: The Federal rules restrict any use of the information to criminally investigate or prosecute any alcohol or drug abuse patient.[facility] HospitalIn the event this information is protected by the Federal Confidentiality of Alcohol and Drug Abuse Patient Records regulations: The Federal rules restrict any use of the information to criminally investigate or prosecute any alcohol or drug abuse patient.[facility] HospitalIn the event this information is protected by the Federal Confidentiality of Alcohol and Drug Abuse Patient Records regulations: The Federal rules restrict any use of the information to criminally investigate or prosecute any alcohol or drug abuse patient.[facility] HospitalIn the event this information is protected by the Federal Confidentiality of Alcohol and Drug Abuse Patient Records regulations: The Federal rules restrict any use of the information to criminally investigate or prosecute any alcohol or drug abuse patient.[facility] HospitalIn the event this information is protected by the Federal Confidentiality of Alcohol and Drug Abuse Patient Records regulations: The Federal rules restrict any use of the information to criminally investigate or prosecute any alcohol or drug abuse patient.[facility] HospitalIn the event this information is protected by the Federal Confidentiality of Alcohol and Drug Abuse Patient Records regulations: The Federal rules restrict any use of the information to criminally investigate or prosecute any alcohol or drug abuse patient.[facility] HospitalIn the event this information is protected by the Federal Confidentiality of Alcohol and Drug Abuse Patient Records regulations: The Federal rules restrict any use of the information to criminally investigate or prosecute any alcohol or drug abuse patient.[facility] HospitalIn the event this information is protected by the Federal Confidentiality of Alcohol and Drug Abuse Patient Records regulations: The Federal rules restrict any use of the information to criminally investigate or prosecute any alcohol or drug abuse patient.[facility] HospitalIn the event this information is protected by the Federal Confidentiality of Alcohol and Drug Abuse Patient Records regulations: The Federal rules restrict any use of the information to criminally investigate or prosecute any alcohol or drug abuse patient.[facility] HospitalIn the event this information is protected by the Federal Confidentiality of Alcohol and Drug Abuse Patient Records regulations: The Federal rules restrict any use of the information to criminally investigate or prosecute any alcohol or drug abuse patient.[facility] HospitalIn the event this information is protected by the Federal Confidentiality of Alcohol and Drug Abuse Patient Records regulations: The Federal rules restrict any use of the information to criminally investigate or prosecute any alcohol or drug abuse patient.[facility] HospitalIn the event this information is protected by the Federal Confidentiality of Alcohol and Drug Abuse Patient Records regulations: The Federal rules restrict any use of the information to criminally investigate or prosecute any alcohol or drug abuse patient.[facility] HospitalIn the event this information is protected by the Federal Confidentiality of Alcohol and Drug Abuse Patient Records regulations: The Federal rules restrict any use of the information to criminally investigate or prosecute any alcohol or drug abuse patient.[facility] HospitalIn the event this information is protected by the Federal Confidentiality of Alcohol and Drug Abuse Patient Records regulations: The Federal rules restrict any use of the information to criminally investigate or prosecute any alcohol or drug abuse patient.[facility] HospitalIn the event this information is protected by the Federal Confidentiality of Alcohol and Drug Abuse Patient Records regulations: The Federal rules restrict any use of the information to criminally investigate or prosecute any alcohol or drug abuse patient.[facility] Reason for Visit (unrecogniz ed [...] & W/CONTRAST MATERIAL David Kumari MD [address] [place] [address] [place] [address] [place] [address] Referral ID Status Reason Start Date Expiration Date V isits Requested Visits Authorized [id number] Closed Auto-Generate d Referral 11/15/2022 12/15/2023 1 [...] 39FX PLUS SIM David Kumari MD [address] [place] [address] David Kumari MD [address] [place] [address] [place] [address] Referral ID Status Reason Start Date Expiration Date Visits Re quested Visits Authorized [id number] Closed 11/23/2022 06/05/2023 40 40 Reason Comments Prostate Cancer Followup Reason Comments Hematuria Reason Comments Radiology CT Specialty Diagnoses / Procedures Referred By Ana t Referred To Contact [facility] Diagnoses Prostate cancer (HCC) Procedures IMAGING STUDY ORDERED Yosef Grimes MD [address] [place] [address] [facility] [address] [place] [place] [address] Referral ID Status Reason Start Date Expiration Date Visits Requested Visits Authorized [id number] Pending Review Patient Cleared - Admin/Chair man/Directo r advise to proceed or did not respond 01/10/2024 07/08/2024 1 1 Reason Comments Radio Gen RMP Care Team (unrecognized sect ion and content) Team Status: Inactive Member Role Status Dates Angelina Holder , REAL ESTATE SERVICES ADMINISTRATOR-C Attending Provider Active Solutions Sales Consultant Relationship Specialty Start Date End Date Shahriar Stephenson MD [address] [place] [address] PCP - General Family Medicine 11/15/22 Solutions Sales Consultant Relationship Specialty Start Date End Date Shahriar Stephenson MD [address] [place] [address] PCP - General Family Medicine 11/15/22 Solutions Sales Consultant Relationship Specialty Start Date End Date Shahriar Stephenson MD [address] [place] [address] PCP - General Family Medicine 11/15/22 Solutions Sales Consultant Relationship Specialty Start Date End Date Shahriar Stephenson MD [address] [place] [address] PCP - General Family Medicine 11/15/22 David Kumari MD [address] [place] [address] Physician Radiation Oncology 12/12/22 Elio Payne APRN.FARM ADVISOR [address] [place] [address] Nurse Practitioner Hematology/Oncology 12/12/22 Nicolas Hwang MD [address] [place], [facility] Physician Hematology/Oncology 12/12/22 Nancy Ray, SINDI [address] [place] [address] Specialty Video Game Tester Hematology/Oncology 12/12/22 Solutions Sales Consultant Relationship Specialty Start Date End Date Shahriar Stephenson MD [address] [place] [address] PCP - General Family Medicine 11/15/22 Solutions Sales Consultant Relationship Specialty Start Date End Date Shahriar Stephenson MD [address] [place] [address] PCP - General Family Medicine 11/15/22 David Kumari MD [address] [place] [address] Physician Radiation Oncology 12/12/22 Elio Payne, HOME SERVICE ADVISOR.FARM ADVISOR [address] [place] [address] Nurse Practitioner Hematology/Oncology 12/12/22 Nicolas Hwang MD [address] [facility] [place] [address] Physician Hematology/Oncology 12/12/22 Nancy Ray, SINDI [address] [place] [place] [address] Specialty Video Game Tester Hematology/Oncology 12/12/22 Solutions Sales Consultant Relationship Specialty Start Date End Date Shahriar Stephenson MD [address] [place] [address] PCP - General Family Medicine 11/15/22 David Kumari MD [address] [facility] [place] [address] Physician Radiation Oncology 12/12/22 Elio Payne, HOME SERVICE ADVISOR.FARM ADVISOR [address] [facility] [place] [address] Nurse Practitioner Hematology/Oncology 12/12/22 Nicolas Hwang MD [address] [facility] [place] [address] Physician Hematology/Oncology 12/12/22 Nancy Ray, SINDI [address] [place] [place] [address] Specialty Video Game Tester Hematology/Oncology 12/12/22 Solutions Sales Consultant Relationship Specialty Start Date End Date Shahriar Stephenson MD [address] [place] [address] PCP - General Family Medicine 11/15/22 David Kumari MD [address] [place] [address] Physician Radiation Oncology 12/12/22 Elio Payne, HOME SERVICE ADVISOR.FARM ADVISOR [address] [place], [place] [id number] Nurse Practitioner Hematology/Oncology 12/12/22 Nicolas Hwang MD [address] [place] [address] Physician Hematology/Oncology 12/12/22 Nancy Ray, RN [address] [place] [place] [address] Specialty Video Game Tester Hematology/Oncology 12/12/22 Solutions Sales Consultant Relationship Specialty Start Date End Date Shahriar Stephenson MD [address] [place] [address] PCP - General Family Medicine 11/15/22 David Kumari MD [address] [place] [address] Physician Radiation Oncology 12/12/22 Elio Payne, HOME SERVICE ADVISOR.FARM ADVISOR [address] [place] [place] [address] Nurse Practitioner Hematology/Oncology 12/12/22 Nicolas Hwang MD [address] [place] [address] Physician Hematology/Oncology 12/12/22 Nancy Ray, SINDI [address] [place] [address] Specialty Video Game Tester Hematology/Oncology 12/12/22 Solutions Sales Consultant Relationship Specialty Start Date End Date Shahriar Stephenson MD [address] [place] [address] PCP - General Family Medicine 11/15/22 David Kumari MD [address] [place] [address] Physician Radiation Oncology 12/12/22 Elio Payne, HOME SERVICE ADVISOR.FARM ADVISOR [address] [place] [place] [address] Nurse Practitioner Hematology/Oncology 12/12/22 Nicolas Hwang MD [address] [place] [address] Physician Hematology/Oncology 12/12/22 Nancy Ray, SINDI [address] [place] [address] Specialty Video Game Tester Hematology/Oncology 12/12/22 Solutions Sales Consultant Relationship Specialty Start Date End Date Shahriar Stephenson MD [address] [place] [address] PCP - General Family Medicine 11/15/22 David Kumari MD [address] [place] [address] Physician Radiation Oncology 12/12/22 Elio Payne, HOME SERVICE ADVISOR.FARM ADVISOR [address] [place] [place] [address] Nurse Practitioner Hematology/Oncology 12/12/22 Nicolas Hwang MD [address] [facility] [place] [address] Physician Hematology/Oncology 12/12/22 Nancy Ray, SINDI [address] [place] [address] Specialty Video Game Tester Hematology/Oncology 12/12/22 Solutions Sales Consultant Relationship Specialty Start Date End Date Shahriar Stephenson MD [address] [place] [address] PCP - General Family Medicine 11/15/22 David Kumari MD [address] [place] [id number] Physician Radiation Oncology 12/12/22 Elio Payne APRN.FARM ADVISOR [address] [place] [address] Nurse Practitioner Hematology/Oncology 12/12/22 Nicolas Hwang MD [address] [place] [address] Physician Hematology/Oncology 12/12/22 Nancy Ray, SINDI [address] [place] [address] Specialty Video Game Tester Hematology/Oncology 12/12/22 Solutions Sales Consultant Relationship Specialty Start Date End Date Shahriar Stephenson MD [address] [place] [address] PCP - General Family Medicine 11/15/22 David Kumari MD [address] [place] [address] Physician Radiation Oncology 12/12/22 Elio Payne, HOME SERVICE ADVISOR.FARM ADVISOR [address] [place] [address] Nurse Practitioner Hematology/Oncology 12/12/22 Nicolas Hwang MD [address] [place] [address] Physician Hematology/Oncology 12/12/22 Nancy Ray, SINDI [address] [facility] [place] [address] Specialty Video Game Tester Hematology/Oncology 12/12/22 Solutions Sales Consultant Relationship Specialty Start Date End Date Shahriar Stephenson MD [facility] [place] [address] [address] PCP - General Family Medicine 11/15/22 David Kumari MD [address] [place] [place] [address] Physician Radiation Oncology 12/12/22 Elio Payen, HOME SERVICE ADVISOR.FARM ADVISOR [address] [place] [address] Nurse Practitioner Hematology/Oncology 12/12/22 Nicolas Hwang MD [address] [place] [place] [address] Physician Hematology/Oncology 12/12/22 Nancy Ray, SINDI [address] [place] [place] [address] Specialty Video Game Tester Hematology/Oncology 12/12/22 Solutions Sales Consultant Relationship Specialty Start Date End Date Shahriar Stephenson MD [address] [place] [address] PCP - General Family Medicine 11/15/22 David Kumari MD [address] [place] [address] Physician Radiation Oncology 12/12/22 Elio Payne, HOME SERVICE ADVISOR.FARM ADVISOR [address] [place] [address] Nurse Practitioner Hematology/Oncology 12/12/22 Nicolas Hwang MD [address] [facility] [address] Physician Hematology/Oncology 12/12/22 Nancy Ray, SINDI [address] [place] [address] Specialty Video Game Tester Hematology/Oncology 12/12/22 Solutions Sales Consultant Relationship Specialty Start Date End Date Shahriar Stephenson MD [address] [place] [address] PCP - General Family Medicine 11/15/22 David Kumari MD [address] [facility] [place] [address] Physician Radiation Oncology 12/12/22 Elio Payne, HOME SERVICE ADVISOR.FARM ADVISOR [address] [place] [address] Nurse Practitioner Hematology/Oncology 12/12/22 Nicolas Hwang MD [address] [place] [address] Physician Hematology/Oncology 12/12/22 Nancy Ray, SINDI [address] [place] [place] [address] Specialty Video Game Tester Hematology/Oncology 12/12/22 Solutions Sales Consultant Relationship Specialty Start Date End Date Shahriar Stephenson MD [facility] [place] [address] PCP - General Family Medicine 11/15/22 David Kumari MD [address] [place] [address] [place] [address] Physician Radiation Oncology 12/12/22 Elio Payne, HOME SERVICE ADVISOR.FARM ADVISOR [address] [place] [address] Nurse Practitioner Hematology/Oncology 12/12/22 Nicolas Hwang MD [address] [place] [address] [place] [address] Physician Hematology/Oncology 12/12/22 Nancy Ray, SINDI [address] [facility] [place] [address] Specialty Video Game Tester Hematology/Oncology 12/12/22 Solutions Sales Consultant Relationship Specialty Start Date End Date Shahriar Stephenson MD [facility] [place] [address] PCP - General Family Medicine 11/15/22 David Kumari MD [address] [facility] [facility] [place] [address] Physician Radiation Oncology 12/12/22 Elio Payne, HOME SERVICE ADVISOR.FARM ADVISOR [address] [place] [place] [address] Nurse Practitioner Hematology/Oncology 12/12/22 Nicolas Hwang MD [address] [facility] [place] [address] Physician Hematology/Oncology 12/12/22 Nancy Ray, SINDI [address] [place] [place] [address] Specialty Video Game Tester Hematology/Oncology 12/12/22 Solutions Sales Consultant Relationship Specialty Start Date End Date Shahriar Stephenson MD [address] [place] [address] PCP - General Family Medicine 11/15/22 David Kumari MD [address] [place] [place] [address] Physician Radiation Oncology 12/12/22 Elio Payne, HOME SERVICE ADVISOR.FARM ADVISOR [address] [place] [address] Nurse Practitioner Hematology/Oncology 12/12/22 Nicolas Hwang MD [address] [place] [address] Physician Hematology/Oncology 12/12/22 Nancy Ray, SINDI [address] [place] [place] [address] Specialty Video Game Tester Hematology/Oncology 12/12/22 Solutions Sales Consultant Relationship Specialty Start Date End Date Shahriar Stephenson MD [address] [place] [address] PCP - General Family Medicine 11/15/22 David Kumari MD [address] [place] [place] [address] Physician Radiation Oncology 12/12/22 Elio Payne, HOME SERVICE ADVISOR.FARM ADVISOR [address] [place] [place] [address] Nurse Practitioner Hematology/Oncology 12/12/22 Nicolas Hwang MD [address] [place] [place] [address] Physician Hematology/Oncology 12/12/22 aNncy Ray, SINDI [address] [place] [place] [address] Specialty Video Game Tester Hematology/Oncology 12/12/22 Solutions Sales Consultant Relationship Specialty Start Date End Date Shahriar Stephenson MD [address] [place] [address] PCP - General Family Medicine 11/15/22 David Kumari MD [address] [place] [place] [address] Physician Radiation Oncology 12/12/22 Elio Payne, HOME SERVICE ADVISOR.FARM ADVISOR [address] [facility] [place] [address] Nurse Practitioner Hematology/Oncology 12/12/22 Nicolas Hwang MD [address] [place] [place] [address] Physician Hematology/Oncology 12/12/22 Nancy Ray, SINDI [address] [place] [address] Specialty Video Game Tester Hematology/Oncology 12/12/22 Solutions Sales Consultant Relationship Specialty Start Date End Date Shahriar Stephenson MD [address] [place] [address] PCP - General Family Medicine 11/15/22 David Kumari MD [address] [place] [address] Physician Radiation Oncology 12/12/22 Elio Payne, HOME SERVICE ADVISOR.FARM ADVISOR [address] [facility] [place] [address] Nurse Practitioner Hematology/Oncology 12/12/22 Nicolas Hwang MD [address] [place] [place] [address] Physician Hematology/Oncology 12/12/22 Nancy Ray, SINDI [address] [place] [address] Specialty Video Game Tester Hematology/Oncology 12/12/22 Solutions Sales Consultant Relationship Specialty Start Date End Date Shahriar Stephenson MD [address] [place] [address] PCP - General Family Medicine 11/15/22 David Kumari MD [address] [place] [address] Physician Radiation Oncology 12/12/22 Elio Payne, HOME SERVICE ADVISOR.FARM ADVISOR [address] [place] [id number] Nurse Practitioner Hematology/Oncology 12/12/22 Nicolas Hwang MD [address] [place] [address] [place] [address] Physician Hematology/Oncology 12/12/22 Nancy Ray, SINDI [address] [facility] [address] [address] [place] [id number] Specialty Video Game Tester Hematology/Oncology 12/12/22 Solutions Sales Consultant Relationship Specialty Start Date End Date Shahriar Stephenson MD [address] [place] [address] PCP - General Family Medicine 11/15/22 Solutions Sales Consultant Relationship Specialty Start Date End Date Shahriar Stephenson MD [facility] [place] [address] PCP - General Family Medicine 11/15/22 David Kumari MD [address] [place] [address] [address] [place] [id number] Physician Radiation Oncology 12/12/22 Elio Payne APRN.FARM ADVISOR [address] [facility] [address] [address] [place] [id number] Nurse Practitioner Hematology/Oncology 12/12/22 Nicolas Hwang MD [address] [facility] [place] [address] Physician Hematology/Oncology 12/12/22 Nancy Ray, SINDI [address] [facility] [place] [address] Specialty Video Game Tester Hematology/Oncology 12/12/22 Solutions Sales Consultant Relationship Specialty Start Date End Date Shahriar Stephenson MD [address] [place] [address] PCP - General Family Medicine 11/15/22 David Kumari MD [address] [place] [address] Physician Radiation Oncology 12/12/22 Elio Payne, HOME SERVICE ADVISOR.FARM ADVISOR [address] [place] [place] [address] Nurse Practitioner Hematology/Oncology 12/12/22 Nicolas Hwang MD [address] [place] [address] Physician Hematology/Oncology 12/12/22 Nancy Ray, SINDI [address] [place] [address] Specialty Video Game Tester Hematology/Oncology 12/12/22 Team Status: Active Member Role Status Dates NON STAFF Primary Care Provider Active Start: January 13, 2024 Samir Mantilla DO Attending Provider Active Sta rt: January 13, 2024 Team Status: Inactive Member Role Status Dates Yosef Grimes MD Attending Provider Active St art: February 22, 2024 End: February 22, 2024 Solutions Sales Consultant Relationship Specialty Start Date End Date Shahriar Stephenson MD [address] [place] [address] PCP - General Family Medicine 11/15/22 David Kumari MD [address] [place] [address] Physician Radiation Oncology 12/12/22 Elio Payne, HOME SERVICE ADVISOR.FARM ADVISOR [address] [facility] [place] [address] Nurse Practitioner Hematology/Oncology 12/12/22 Nicolas Hwang MD [address] [place] [place] [address] Physician Hematology/Oncology 12/12/22 Nancy Ray, SINDI [address] [place] [place] [address] Specialty Video Game Tester Hematology/Oncology 12/12/22 Solutions Sales Consultant Relationship Specialty Start Date End Date Shahriar Stephenson MD [facility] [place] [address] PCP - General Family Medicine 11/15/22 David Kumari MD [address] [place] [address] Physician Radiation Oncology 12/12/22 Elio Payne APRN.FARM ADVISOR [address] [place] [place] [address] Nurse Practitioner Hematology/Oncology 12/12/22 Nicolas Hwang MD [address] [place] [address] Physician Hematology/Oncology 12/12/22 Nancy Ray, SINDI [address] [facility] [place] [address] Specialty Video Game Tester Hematology/Oncology 12/12/22 Solutions Sales Consultant Relationship Specialty Start Date End Date Shahriar Stephenson MD [address] [place] [address] PCP - General Family Medicine 11/15/22 David Kumari MD [address] [place] [address] Physician Radiation Oncology 12/12/22 Elio Payne APRN.FARM ADVISOR [address] [place] [place] [address] Nurse Practitioner Hematology/Oncology 12/12/22 Nicolas Hwang MD [address] [place] [address] Physician Hematology/Oncology 12/12/22 Nancy Ray, SINDI [address] [place] [address] Specialty Video Game Tester Hematology/Oncology 12/12/22 (unrecognized sect ion and content) No Status Records FoundNo Status Records FoundNo Status Records FoundNo Status Records FoundNo Status Records FoundNo Status Records FoundNo Status Records Found INFORMATION SOURCE (unrecogn ized section and content) DATE CREATED AUTHOR 10/17/2021 [facility] DATE CREATED AUTHOR AUTHOR'S ORGANIZ ATION 01/06/2024 [facility] DATE CREATED AUTHOR AUTHOR'S ORGANIZ ATION 02/29/2024 [facility] DATE CREATED AUTHOR AUTHOR'S ORGANIZ ATION 03/01/2024 [facility] DATE CREATED AUTHOR AUTHOR'S ORGANIZ ATION 03/05/2024 [facility] DATE CREATED AUTHOR AUTHOR'S ORGANIZ ATION 06/12/2024 [facility] DATE CREATED AUTHOR AUTHOR'S ORGANIZ ATION 10/17/2024 [facility] Goals (unrecognized section and content) Goals [...] BE BASED ON THE PRIMARY CLINICAL RECORDS. [employer] [facility]. provides no warranty or guarantee of the accuracy or completeness of information in this document.
== END 2024-10-14 11:55 | disposition home or self-care (01) ==
LOC: LAB 10-21 09:41
PROVIDERS: PCP Family Medicine; Visit Provider Internal Medicine
DX: N17.9 Acute kidney failure, unspecified (principal)
CPT/HCPCS: 36415; 80048

== ENCOUNTER 2024-10-17 10:25 | Outpatient (OUT) | payer MEDICARE, SELFPAY ==
--- OUTSIDE RECORDS SUMMARY | 2024-10-17 10:27 | XMS_ITS | Encounter Summary ---
Author Organization [facility] Address [address] [place] [address] Care Team Providers Care Mica Washer Gluer Name Role Phone Holden Cameron MD Primary Care Provider [phone] David Medley MD Unavailable [phone] Cathy Lawson APRN.ROLL UP MACHINE OPERATOR Unavailable [phone] Nicolas Hwang MD Unavailable Unavail able Nancy Ray RN Unavailable [phone] Source Comments In the event this information is protected by the Federal Confidentiality of Alcohol and Drug AbusePatient Records regulations: The Federal rules restrict any use of the information to criminally investigate or prosecute any alcohol or drug abuse patient.[facility] Encounter Details Date Type Department Care Team (Late st Contact Info) Description 11/24/2022 Patient Msg MRI Q [address] [address] Provider, Ccf MRI PROSTATE PREP INSTRUCTIONS Social [...] is lower risk 6 11/15/2022 Data from: https://www.neighborhoodatlas.medicine.[facility].edu/. Last address used for calculation [address] 11/15/2022 Sex and Gender Information Value Date Recorded Sex Assigned at Not on file Legal Sex Male 3:06 PM EDT Gender Identity Not on file Sexual Orientation Not on file documented as of this encounter Plan of Treatment Upcoming Encounters Date Type Department Care Team (Latest Contact Info) Description 11/12/2024 9:00 AM EDT Office Visit [facility] [address] [facility] [place] [address] 6 month follow up with lab 11/13/2024 1:30 PM EDT Visit (SP) Office Hematology/Oncology [address] [place] [address] [place] [address] Minoo Bella, CHANNEL MAN.ROLL UP MACHINE OPERATOR [address] [facility] [place] [place] [address] 6 month follow up with lab 11/13/2024 2:00 PM EDT Office Visit Radiation Oncology [facility] [place] [address] David Medley MD [address] [place] [address] [place] [address] 6 month follow up with lab documented as of this encounter Visit Diagnoses Not on filedocumented in this encounter Care Teams Mica Washer Gluer Relationship Specialty Start Date End Date Holden Cameron MD [address] [place] [address] PCP - General Family Medicine 11/15/22 David Medley MD [address] [place] [address] [place] [address] Physician Radiation Oncology 12/12/22 Cathy Lawson, CRISTEL.ROLL UP MACHINE OPERATOR [facility] [place] [address] Nurse Practitioner Hematology/Oncology 12/12/22 Nicolas Hwang MD [address] [facility] [address] Physician Hematology/Oncology 12/12/22 08/11/24 Nancy Ray, SINDI [address] [facility] [place] [address] Specialty Vocational Horticulture Instructor Hematology/Oncology 12/12/22 documented as of this encounter
--- OUTSIDE RECORDS SUMMARY | 2024-10-17 10:27 | XMS_ITS | Clinical Summary ---
Author Organization [facility] Address [address] [place] [address] Care Team Providers Care Brazing Furnace Operator Name Role Phone Unavailable Primary Care [...]
--- OUTSIDE RECORDS SUMMARY | 2024-10-17 10:27 | XMS_ITS | Clinical Summary ---
Author Organization [facility] Address [address] [place] [address] Care Team Providers Care Recycling Manager Name Role Phone Celestina Chanel MD Primary Care Provider [phone] Allergies Active Allergy Reactions Criticality Noted Date [...] Insurance [employer] MEDICARE PLAN (PPO) Care Teams Recycling Manager Relationship Specialty Start Date End Date Celestina Chanel MD [address] [place] [address] PCP - General Family Medicine 11/05/14
--- OUTSIDE RECORDS SUMMARY | 2024-10-17 10:27 | XMS_ITS | Encounter Summary ---
Author Organization [facility] Address [address] [place] [address] Care Team Providers Care Spot Welder Body Assembly Name Role Phone Holden Cameron MD Primary Care Provider [phone] David Medley MD Unavailable [phone] Cathy Lawson APRN.GROUP SOCIAL WORKER Unavailable [phone] Nicolas Hwang MD Unavailable Unavail able Nancy Ray RN Unavailable [phone] Source Comments In the event this information is protected by the Federal Confidentiality of Alcohol and Drug AbusePatient Records regulations: The Federal rules restrict any use of the information to criminally investigate or prosecute any alcohol or drug abuse patient.[facility] Encounter Details Date Type Department Care Team (Late st Contact Info) Description 11/26/2022 [place] [address] Provider, Ccf Questionnaire Submission Social History Tobacco [...] is lower risk 6 11/15/2022 Data from: https://www.neighborhoodatlas.[facility].edu/. Last address used for calculation [address] 11/15/2022 Sex and Gender Information Value Date Recorded Sex Assigned at Not on file Legal Sex Male 3:06 PM EDT Gender Identity Not on file Sexual Orientation Not on file documented as of this encounter Plan of Treatment Upcoming Encounters Date Type Department Care Team (Latest Contact Info) Description 11/12/2024 9:00 AM EDT Office Visit [facility] [address] [place] [address] 6 month follow up with lab 11/13/2024 1:30 PM EDT Visit (SP) Office Hematology/Oncology [address] [place] [address] [place] [address] Minoo Bella, CRISTEL.GROUP SOCIAL WORKER [address] [facility] [place] [address] 6 month follow up with lab 11/13/2024 2:00 PM EDT Office Visit Radiation Oncology [address] [place] [address] [place] [address] David Medley MD [address] [place] [address] [place] [address] 6 month follow up with lab documented as of this encounter Visit Diagnoses Not on filedocumented in this encounter Care Teams Spot Welder Body Assembly Relationship Specialty Start Date End Date Holden Cameron MD [address] [place] [address] PCP - General Family Medicine 11/15/22 David Medley MD [address] [place] [address] [place] [address] Physician Radiation Oncology 12/12/22 Cathy Lawson, CRISTEL.GROUP SOCIAL WORKER [address] [place] [address] [place] [address] Nurse Practitioner Hematology/Oncology 12/12/22 Nicolas Hwang MD [address] [place] [address] Physician Hematology/Oncology 12/12/22 08/11/24 Nancy Ray, SINDI [address] [place] [address] Specialty Biblical Studies Professor Hematology/Oncology 12/12/22 documented as of this encounter
--- OUTSIDE RECORDS SUMMARY | 2024-10-17 10:27 | XMS_ITS | Clinical Summary ---
Author Organization [facility] Address [address] [place], [place] [address] Care Team Providers Care It Director Name Role Phone Holden Cameron MD Primary Care Provider [phone] David Medley MD Unavailable [phone] Cathy Lawson [employer] [employer].DRY HEAT CABINET ATTENDANT Unavailable [phone] Nancy Ray RN Unavailable [phone] Allergies Active Allergy Reactions Criticality Noted Date [...] is lower risk 6 11/15/2022 Data from: https://www.neighborhoodatlas.medicine.[facility]/. Last address used for calculation [address] 11/15/2022 Sex and Gender Information Value [...] 9:00 AM EDT Office Visit [facility] [address] [place] [address] 6 month follow up with lab 11/13/2024 1:30 PM EDT Visit (SP) Office Hematology/Oncology [address] [place] [address] Minoo Bella, CRISTEL.DRY HEAT CABINET ATTENDANT [address] [place] [address] 6 month follow up with lab 11/13/2024 2:00 PM EDT Office Visit Radiation [place] [address] [place] [address] David Medley MD [address] [place] [address] 6 month follow up with lab Health [...] - 99 mg/dL 05/15/2024 1:46 PM EDT [facility] Comment: The [place] Diabetes Association (ADA) provides guidance for cutoff [...] Standards of Medical Care in Diabetes 2016, [place] [employer]. Diabetes Care. 2016.39(Suppl 1). BUN 20 9 - 24 mg/dL 05/15/2024 1:46 PM EDT [facility] Creatinine 1.40(H) 0.73 - 1.22 mg/dL 05/15/2024 1:46 PM EDT [facility] Sodium 141 136 - 144 mmol/L 05/15/2024 1:46 PM EDT [facility] Potassium 4.0 3.7 - 5.1 mmol/L 05/15/2024 1:46 PM EDT [facility] Chloride 103 98 - 107 mmol/L 05/15/2024 1:46 PM EDT [facility] CO2 24 22 - 30 mmol/L 05/15/2024 1:46 PM EDT [facility] Anion Gap 14 8 - 15 mmol/L 05/15/2024 1:46 PM EDT [facility] Calcium, Total 10.2 8.5 - 10.2 mg/dL 05/15/2024 1:46 PM EDT [facility] Estimated Glomerular Filtration Rate 52(L) >=60 mL/min/1. 73m 05/15/2024 1:46 PM EDT [facility] Comment:Estimated Glomerular Filtration Rate (eGFR) [...] Nicolas Hwang MD LABORATORY Final Re sult [facility] [address] [place] [address] from Last 3 Months or Most Recently Relevant to Health Maintenance Insurance A[employer] MEDICARE Care Teams It Director Relationship Specialty Start Date End Date Holden Cameron MD [address] [place] [address] PCP - General Family Medicine 11/15/22 David Medley MD [address] [place] [address] [place] [address] Physician Radiation Oncology 12/12/22 Cathy Lawson APRN.CNP [address] [place] [address] Nurse Practitioner Hematology/Oncology 12/12/22 Nancy Ray, SINDI [address] [place] [address] Specialty Fabrication Engineer Hematology/Oncology 12/12/22
--- OUTSIDE RECORDS SUMMARY | 2024-10-17 10:46 | XMS_ITS | CCD ---
Author Organization [facility] Care Team Providers Care Integrated Campaign Manager Name Role Phone Unavailable Primary Care Provider [...] Unavailable CHANEL, DR GURMEET Haque Consulting Unavailable CASTLETON, DR CHAIM Canales Consulting Unavailable CHANEL, DR [...] Angelina Holder Unavailable CARISSA Holder Attending Provider [phone] Shahriar Stephenson MD Primary Care Provider [phone] David Kumari MD Unavailable Renny HANDLE ASSEMBLER.SKEIN SPOOLER, Elio Unavailable [phone] Nicolas Hwang MD Unavailable [phone] Cory DELONG, Nancy Unavailable Shahriar Stephenson MD Primary Care Provider Unavailable Primary Care Provider UnavailShilpa Mcguire Primary Care Physician [phone] Yosef Grimes MD Attending Provider [phone] Parvez, GAME AGENT Shilpa Khoury Attending Unavailable Parvez, GAME AGENT Shilpa Khoury Attending Unavailable Parvez, IVAN Khoury Attending Unavailable GRIMES, Yosef R Attending Unavailable [...] Unavailable ROSS, SHAHRIAR E Primary Care Unavailable CORNELIO, YOSEF R Referring Unavailable ROSS, SHAHRIAR E Primary Care Unavailable SACHIN, SHAHRIAR E Primary Care Unavailable SHILPA FOX Referring Unavailable ROSS, SHAHRIAR E Primary Care Unavailable ROSS, SHAHRIAR E Primary Care Unavailable ROSS, SHAHRIAR E Primary Care Unavailable MINOO GILL Attending Unavailable ROSS, SHAHRIAR E Primary Care Unavailable David KUMARI Attending Unavailable NICOLAS HWANG Referring Unavailable ROSS, SHAHRIAR E Primary Care Unavailable ROSS, SHARHIAR E Primary Care Unavailable ROSS, SHAHRIAR E Primary Care Unavailable NICOLAS HWANG Attending Unavailable NICOLAS HWANG Referring Unavailable ROSS, SHAHRIAR E Primary Care Unavailable GRIMES, Yosef R Attending Unavailable GRIMES, Yosef R Attending Unavailable GRIMES, Yosef R Attending Unavailable GRIMES, Yosef R Attending Unavailable Ramila Peralta Attending Unavailable Bob, Meño Attending Unavailable GRIMES, Yosef R Referring Unavailable Bob, Meño Admitting Unavailable Bob, Meño Consulting Unavailable Bob, Meño Attending Unavailable Bob, Meño Referring Unavailable Bob, Meño Consulting Unavailable Bob, Meño Consulting Unavailable Shilpa Fox Attending Unavailable Parvez, Shilpa Khoury Attending Unavailable IFEANYI BETH Attending Unavailable CORNELIO, Yosef R Attending Unavailable Allergies Allergy Classification Reported Allergen(s) Allergy Type Date of Onset Reaction(s) Facility (20 sources) Oxytetracycline; Translations: [oxytetracycline] Drug Allergy 10-22-19 Unknown, Fever (finding), Swelling at injection site (disorder) [facility] (4 sources) Penicillins; Translations: [PENICILLINS] Drug Allergy 10-22-19 Rash, Swelling [facility] (4 sources) Penicillin V Drug Allergy 10-10-19 swelling, rash, and hair loss [facility] (3 sources) TERAMYCIN Propensity to adverse reactions Unknown Reds10 Other (20 sources) Penicillins Drug Allergy 10-22-19 Rash, Swelling [facility] (20 sources) Penicillin; Translations: [penicillin] Drug Allergy Swelling at injection site (disorder) [facility] (1 source) Oxytetracycline Drug Allergy 12-23-19 16 [facility] (1 source) Penicillins Drug allergy (disorder) 12-23-19 [facility] (1 source) Oxytetracycline Drug Allergy 10-10-19 [facility] (1 source) Penicillin Drug Allergy 10-10-19 [facility] (4 sources) Penicillins Drug Allergy 10-22-19 Rash, Swelling [facility] Medications Current Medications Medication Drug Class(es) Dates Sig (Normalized) Sig (Original) abiraterone acetate 250 mg oral tablet (20 sources) Cytochrome P450 17A1 Inhibitor Start: 12-08-2022 End: 05-20-2024 take 4 tablets by mouth once daily abiraterone 250 mg tablet Take 4 tablets by mouth once daily. 360 tablet 5 05/21/2024 11:32 AM EDT 05/20/2024 Active Comment on above: Take 4 tablets by mo [facility] once daily. azithromycin 250 mg oral [...] 0 Start Date: 12/02/22 Status: Ordered Eliguard (11 sources) Start: 10-23-2023 Eliguard Eliguard, injection every 6 months, As Directed Start Date: 10/23/23 Status: Ordered hydroCHLOROthiazide 12.5 mg / lisinopril 10 mg oral tablet (20 sources) Thiazide Diuretic, Angiotensin Converting Enzyme Inhibitor Start: 09-27-2023 End: 09-21-2024 take 1 tablet by mouth once daily hydrochlorothiaz reza-lisinopril 12.5 mg-10 mg Tab 1 tab(s), Oral, Daily for 90 day(s), 90 tab(s), Refill(s) 3, [facility], 185, cm, 09/27/23 11:20:00 [...] 1 tablet by mone th once daily. 0.375 ml leuprolide acetate 120 [...] day(s), # 90 tab(s), Refills(s) 3, Pharmacy: [facility], 190, cm, 11/18/22 11:20:00 [...] by mouth. Take 1 tablet by mone th once daily. ciprofloxacin 500 mg oral tablet (6 sources) Quinolone Antimicrobial Start: take 1 tablet by mouth once daily Cipro 500 mg Tab 500 mg = 1 tab(s), Oral, Daily, take one tab day before procedure and one tab after procedure, # 2 tab(s), Refills(s) 0, Pharmacy: [facility], 190, cm, 01/08/24 9:10:00 [...] procedure, # 2 tab(s), Refills(s) 0, Pharmacy: [facility], 190, cm, 10/03/22 13:54:00 [...] Ambulatory Visit Summary ADOLPH JOHNS :1945 Visit Date:09/26/2024 Ambulatory Visit Instructions Your Diagnosis Hypertension Bladder neoplasm of uncertain malignant potential Mild pulmonary hypertension Chronic kidney disease, stage 3b Hypertensive chronic kidney disease Non-smoker BMI 32.0-32.9,adult Your Care Team Attending Physician - Shilpa Naylor Primary Care Physician - Shahriar Stephenson MD This Is Your Medications List [facility] Prescription (Eliguard) abiraterone (abiraterone 250 mg oral tablet) hydrochlorothiazide-l [...] Follow-Up Appointments Monday 9:15 AM EDT With: Yosef GRIMES MD Where: [facility] [address] [address]- 2025 1:20 PM EDT With: Shilpa Naylor Where: [facility] [address] [address]- Medications What How Much When Instructions Changed hydrochlorothiazide-l isinopril (hydrochlorothiazide- lisinopril 12.5 mg-10 mg Tab) 1 Tablets By Mouth Every day TAKE 1 TABLET BY MOUTH ONCE DAILY Pickup at [facility] Unchanged abiraterone (abiraterone 250 mg oral tablet) 4 Tablets By Mouth Every day Unchanged [facility] Prescription (Eliguard) 0 As Directed injection every 6 months Unchanged predniSONE (predniSONE 5 mg Tab) Pharmacy Information [facility]: [address] [place], [place] [id number] [phone] Allergies oxytetracycline (Fever, Swelling at injection site) [...] signed up for this yet, please contact [employer] at [phone] to get signed up today. Language Information Language assistance services are available as needed. Normal [facility] Family Medicine Office/Clini c Noteon 09-26-2024 [...] of bladder) followed by Dr. Grimes and [facility]. Has had radiation and is taking abiraterone. [...] TAKE 1 TABLET BY MOUTH ONCE DAILY, [facility], 190, cm, 09/26/24 14:26:00 [...] Cystoscopy ( (more content not included)... Normal [facility] Comment on above: Result Comment: Electronically Signed By : Shilpa Naylor\.br\Date and Time Signed: 09/26/24 14:59 EDT Pre-Visit [...] specialist: Urologist Dr Heck , Dr Cook Sticker Operator, Dr Mack oncologist, pt states he has [...] feel free to contact me at extension [phone]. Thank you! KORY Archibald, RN, CCM, CCDS, CCDS-O CDI Screw Machine Repairer [address] [address] P: [phone] F: [phone] [email or web address] ID [email or web address] From: Shilpa Naylor To: Jazmin Cano RN; Sent: 09/26/2024 14:54:25 EDT Subject: RE: Pre-Visit Planning Caller Name: ADOLPH JOHNS; Caller Number: H I updated with current diagnoses. thank you Normal [facility] Pre-Visit Planning Pre-Visit Planning From: Jazmin Cano RN To: Shilpa Naylor; Sent: 09/25/2024 13:28:59 EDT Subject: Pre-Visit Planning Due Date/Time: 09/25/2024 13:28:00 EDT Caller Name: ADOLPH JOHNS; Caller Number: H Erickson Rai During a [...] feel free to contact me at extension [phone]. Thank you! Jazmin Cano, KORY, RN, CCM, CCDS, CCDS-O CDI Screw Machine Repairer [address] [address] P: [phone] F: [phone] [email or web address] ID [email or web address] From: Shilpa Naylor To: Jazmin Cano RN; Sent: 09/26/2024 14:12:23 EDT Subject: RE: Pre-Visit Planning Caller Name: ADOLPH JOHNS Peng; Caller Number: H mild pulmonary hypertension Normal [facility] Pre-Visit Planning Pre-Visit Planning From: Jazmin Cano RN To: Shilpa Naylor; Sent: 09/25/2024 13:25:26 EDT Subject: Pre-Visit Planning Due Date/Time: 09/25/2024 13:25:00 EDT Caller Name: ADOLPH JOHNS; Caller Number: H Erickson rai During a [...] feel free to contact me at extension [phone]. Thank you! Jazmin Cano, MYRNAN, RN, CCM, CCDS CDI Screw Machine Repairer [address] [address] P: [phone] F: [phone] [email or web address] ID [email or web address] From: Shilpa Naylor To: Rachael DELONG, Jazmin; Sent: 09/26/2024 14:11:40 EDT Subject: RE: Pre-Visit Planning Caller Name: ADOLPH JOHNS; Caller Number: H CKD stage 3b Normal [facility] CNOVon 06-04-2024 CNOV Office Visit (RADTSA ) ADOLPH JOHNS ([id number]) 1945 M Date Time Provider Department 06/04/24 [...] by: David Kumari MD cc: Shahriar Stephenson [address] [place] [address] No referring provider defined for this encounter. Referring Provider: NICOLAS HWANG [[id number]] Allergies As of Date: 06/04/2024 Noted Allergy Reaction PENICILLINS 10/22/2019 2 - Rash 7 - Swelling TERAMYCIN (OXYTETRACYCLINE) 10/22/2019 16 - Unknown Date Reviewed: 06/04/2024 Reviewed by: Letty Barahona RN - Fully Assessed Reason for Visit: Prostate Cancer [590] Primary Visit Diagnosis:Malignant neoplasm of prostate (HCC) [C61] Order(s):PROSTATE-SPE CIFIC ANTIGEN DIAGNOSTIC [SQPSA] Order #: [id number] FUTURE Prescriptions as of 06/07/2024 - leuprolide [...] included)... Normal [facility] CNOVSPon 05-20-2024 CNOVSP Visit (SP) Office (HEMASA) JOHNS,ADOLPH ([id number]) 1945 M Date Time Provider Department 05/20/24 2:00 PM MINOO GILL During your visit today, we recorded the following information about you: Temperature Pulse Respiration Blood pressure 97.6 degrees 79/minute 16/minute 120/72 Weight 117.9 kg Minoo Gill APRN.SKEIN SPOOLER 05/20/2024 4:04 PM Signed PATIENT NAME: Adolph [...] No difficulties with urination. Has returned from [place]! Labs stable. MEDICATIONS: abiraterone 250 mg tablet [...] or petechiae. PATHOLOGY: 11/10/2022 Bladder tumor, TURBT ([facility]) Metastatic poorly differentiated adenocarcinoma, consistent [...] included)... Normal [facility] Urology Office/Clinic Noteon 05-20-2024 Urology Office/Clinic Note [...] in dark side documents dated 09/27/21 from [facility]). [facility] PET scan 10/28/22 at [facility] [...] renal stone. Follow-up With When Contact Information Yosef GRIMES MD, [facility] [address], [place] [address] [phone] Additional Instructions: 6 mos (more content not included)... Normal [facility] Comment on above: Result Comment: Electronically Signed By : Yosef GRIMES MD\.br\Date and Time Signed: 05/20/24 08:39 EDT\.br\Electronically Co-Signed By: Odette Cottrell\.br\Date and Time Co-Signed: 05/20/24 08:37 EDT CNPNon 05-16-2024 CNPN Telephone (NCCAP) ADOLPH JOHNS ([id number]) 1945 M Date Time Provider Department 05/16/24 NICOLAS HWANG [facility] During your visit today, we recorded the [...] 05/29/24 Normal [facility] Basic metabolic 2000 panelon 05-15-2024 Anion gap [Moles/Vol] 14 mmol/L Normal 8-15 [facility] Comment on above: Order Comment: Specimen Type: BLOOD SPEC IMENOrdering Facility: [facility] Address: [address] [place] [address] Performed By: #### 2 4321-2 ####[facility] LABCLIA [id number] [place] [address] Calcium [Mass/Vol] 10.2 mg/dL Normal 8.5-10.2 [facility] Comment on above: Order Comment: Specimen Type: BLOOD SPEC IMENOrdering Facility: [facility] Address: [address] [place] [address] Performed By: #### 2 4321-2 ####[facility] LABCLIA [id number] [place] [address] Chloride [Moles/Vol] 103 mmol/L Normal 98-107 [facility] Comment on above: Order Comment: Specimen Type: BLOOD SPEC IMENOrdering Facility: [facility] Address: [address] [place] [address] Performed By: #### 2 4321-2 ####[facility] LABCLIA [id number] [place] [address] CO2 [Moles/Vol] 24 mmol/L Normal 22-30 [facility] Comment on above: Order Comment: Specimen Type: BLOOD SPEC IMENOrdering Facility: [facility] Address: [address] [place] [address] Performed By: #### 2 4321-2 ####[facility] LABCLIA [id number] [place] [address] Creatinine [Mass/Vol] 1.40 mg/dL High 0.73-1.22 [facility] Comment on above: Order Comment: Specimen Type: BLOOD SPEC IMENOrdering Facility: [facility] Address: [address] [place] [address] Performed By: #### 2 4321-2 ####[facility] LABCLIA [id number] [place] [address] Creatinine and Glomerular filtration rate.predicted panel (S/P/Bld) 52 mL/min/1.73m??? Low >=60 [facility] Comment on above: Order Comment: Specimen Type: BLOOD SPEC IMENOrdering Facility: [facility] Address: [address] [place] [address] Result Comment: Paty mated Glomerular Filtration Rate [...] actual GFR. Performed By: #### 2 4321-2 ####[facility] LABCLIA [id number] [place] [address] Glucose [Mass/Vol] 224 mg/dL High 74-99 [facility] Comment on above: Order Comment: Specimen Type: BLOOD SPEC IMENOrdering Facility: [facility] Address: [address] [place] [address] Result Comment: The [place] [employer] Association (ADA) provides guidance for cutoff [...] Standards of Medical Care in Diabetes 2016, [place] [employer]. Diabetes Care. 2016.39(Suppl 1). Performed By: #### 2 4321-2 ####[facility] LABCLIA [id number] [place] [address] Potassium [Moles/Vol] 4.0 mmol/L Normal 3.7-5.1 [facility] Comment on above: Order Comment: Specimen Type: BLOOD SPEC IMENOrdering Facility: [facility] Address: [address] [place] [address] Performed By: #### 2 4321-2 ####[facility] LABCLIA [id number] [place] [address] Sodium [Moles/Vol] 141 mmol/L Normal 136-144 [facility] Comment on above: Order Comment: Specimen Type: BLOOD SPEC IMENOrdering Facility: [facility] Address: [address] [place] [address] Performed By: #### 2 4321-2 ####[facility] LABCLIA [id number] [place] [address] Urea nitrogen [Mass/Vol] 20 mg/dL Normal 9-24 [facility] Comment on above: Order Comment: Specimen Type: BLOOD SPEC IMENOrdering Facility: [facility] Address: [address] [place] [address] Performed By: #### 2 4321-2 ####[facility] LABCLIA [id number] [place] [address] CBC W Auto Differential pane l (Bld)on 05-15-2024 Basophils (Bld) [#/Vol] 0.03 10*3/uL Normal <0.11 [facility] Comment on above: Order Comment: Specimen Type: BLOOD SPEC IMENOrdering Facility: [facility] Address: [address] [place] [address] Performed By: #### 5 7021-8 ####[facility] LABCLIA [id number] [place] [address] Basophils/100 WBC (Bld) 0.3 % Normal [facility] Comment on above: Order Comment: Specimen Type: BLOOD SPEC IMENOrdering Facility: [facility] Address: [address] [place] [address] Performed By: #### 5 7021-8 ####[facility] LABCLIA [id number] [place] [address] Differential cell count method Nom (Bld) Auto Normal [facility] Comment on above: Order Comment: Specimen Type: BLOOD SPEC IMENOrdering Facility: [facility] Address: [address] [place] [address] Performed By: #### 5 7021-8 ####[facility] LABCLIA [id number] [place] [address] Eosinophils (Bld) [#/Vol] 0.07 10*3/uL Normal <0.46 [facility] Comment on above: Order Comment: Specimen Type: BLOOD SPEC IMENOrdering Facility: [facility] Address: [address] [place] [address] Performed By: #### 5 7021-8 ####[facility] LABCLIA [id number] [place] [address] Eosinophils/100 WBC (Bld) 0.8 % Normal [facility] Comment on above: Order Comment: Specimen Type: BLOOD SPEC IMENOrdering Facility: [facility] Address: [address] [place] [address] Performed By: #### 5 7021-8 ####[facility] LABCLIA [id number] [place] [address] Erythrocyte distribution width (RBC) [Ratio] 14.2 % Normal 11.5-15.0 [facility] Comment on above: Order Comment: Specimen Type: BLOOD SPEC IMENOrdering Facility: [facility] Address: [address] [place] [address] Performed By: #### 5 7021-8 ####[facility] LABCLIA [id number] [place] [address] Hematocrit (Bld) [Volume fraction] 39.0 % Normal 39.0-51.0 [facility] Comment on above: Order Comment: Specimen Type: BLOOD SPEC IMENOrdering Facility: [facility] Address: [address] [place] [address] Performed By: #### 5 7021-8 ####[facility] LABCLIA [id number] [place] [address] Hemoglobin (Bld) [Mass/Vol] 12.9 g/dL Low 13.0-17.0 [facility] Comment on above: Order Comment: Specimen Type: BLOOD SPEC IMENOrdering Facility: [facility] Address: [address] [place] [address] Performed By: #### 5 7021-8 ####[facility] LABCLIA [id number] [place] [address] Immature granulocytes (Bld) [#/Vol] 0.13 10*3/uL High <0.10 [facility] Comment on above: Order Comment: Specimen Type: BLOOD SPEC IMENOrdering Facility: [facility] Address: [address] [place] [address] Performed By: #### 5 7021-8 ####[facility] LABCLIA [id number] [place] [address] Immature granulocytes/100 WBC (Bld) 1.5 % Normal [facility] Comment on above: Order Comment: Specimen Type: BLOOD SPEC IMENOrdering Facility: [facility] Address: [address] [place] [address] Performed By: #### 5 7021-8 ####[facility] LABCLIA [id number] [place] [address] Lymphocytes (Bld) [#/Vol] 0.80 10*3/uL Low 1.00-4.00 [facility] Comment on above: Order Comment: Specimen Type: BLOOD SPEC IMENOrdering Facility: [facility] Address: [address] [place] [address] Performed By: #### 5 7021-8 ####[facility] LABCLIA [id number] [place] [address] Lymphocytes/100 WBC (Bld) 9.0 % Normal [facility] Comment on above: Order Comment: Specimen Type: BLOOD SPEC IMENOrdering Facility: [facility] Address: [address] [place] [address] Performed By: #### 5 7021-8 ####[facility] LABCLIA [id number] [place] [address] MCH (RBC) [Entitic mass] 30.6 pg Normal 26.0-34.0 [facility] Comment on above: Order Comment: Specimen Type: BLOOD SPEC IMENOrdering Facility: [facility] Address: [address] [place] [address] Performed By: #### 5 7021-8 ####[facility] LABCLIA [id number] [place] [address] MCHC (RBC) [Mass/Vol] 33.1 g/dL Normal 30.5-36.0 [facility] Comment on above: Order Comment: Specimen Type: BLOOD SPEC IMENOrdering Facility: [facility] Address: [address] [place] [address] Performed By: #### 5 7021-8 ####[facility] LABCLIA [id number] [place] [address] MCV (RBC) [Entitic vol] 92.4 fL Normal 80.0-100.0 [facility] Comment on above: Order Comment: Specimen Type: BLOOD SPEC IMENOrdering Facility: [facility] Address: [address] [place] [address] Performed By: #### 5 7021-8 ####[facility] LABCLIA [id number] [place] [address] Monocytes (Bld) [#/Vol] 0.61 10*3/uL Normal <0.87 [facility] Comment on above: Order Comment: Specimen Type: BLOOD SPEC IMENOrdering Facility: [facility] Address: [address] [place] [address] Performed By: #### 5 7021-8 ####[facility] LABCLIA [id number] [place] [address] Monocytes/100 WBC (Bld) 6.9 % Normal [facility] Comment on above: Order Comment: Specimen Type: BLOOD SPEC IMENOrdering Facility: [facility] Address: [address] [place] [address] Performed By: #### 5 7021-8 ####[facility] LABCLIA [id number] [place] [address] Neutrophils (Bld) [#/Vol] 7.20 10*3/uL Normal 1.45-7.50 [facility] Comment on above: Order Comment: Specimen Type: BLOOD SPEC IMENOrdering Facility: [facility] Address: [address] [place] [address] Performed By: #### 5 7021-8 ####[facility] LABCLIA [id number] [place] [address] Neutrophils/100 WBC (Bld) 81.5 % Normal [facility] Comment on above: Order Comment: Specimen Type: BLOOD SPEC IMENOrdering Facility: [facility] Address: [address] [place] [address] Performed By: #### 5 7021-8 ####[facility] LABCLIA [id number] [place] [address] Nucleated RBC (Bld) [#/Vol] 10*3/uL Normal <0.01 [facility] [facility] Comment on above: Order Comment: Specimen Type: BLOOD SPEC IMENOrdering Facility: [facility] Address: [address] [place] [address] Performed By: #### 5 7021-8 ####[facility] LABCLIA [id number] [place] [address] Nucleated RBC/100 WBC (Bld) [Ratio] 0.0 /100 WBC Normal [facility] Comment on above: Order Comment: Specimen Type: BLOOD SPEC IMENOrdering Facility: [facility] Address: [address] [place] [address] Performed By: #### 5 7021-8 ####[facility] LABCLIA [id number] [place] [address] Platelet mean volume (Bld) [Entitic vol] 9.9 fL Normal 9.0-12.7 [facility] Comment on above: Order Comment: Specimen Type: BLOOD SPEC IMENOrdering Facility: [facility] Address: [address] [place] [address] Performed By: #### 5 7021-8 ####[facility] LABIA [id number] [place] [address] Platelets (Bld) [#/Vol] 160 10*3/uL Normal 150-400 [facility] Comment on above: Order Comment: Specimen Type: BLOOD SPEC IMENOrdering Facility: [facility] Address: [address] [place] [address] Performed By: #### 5 7021-8 ####[facility] LABCLIA [id number] [place] [address] RBC (Bld) [#/Vol] 4.22 10*6/uL Normal 4.20-6.00 [facility] Comment on above: Order Comment: Specimen Type: BLOOD SPEC IMENOrdering Facility: [facility] Address: [address] [place] [address] Performed By: #### 5 7021-8 ####[facility] LABIA [id number] [place] [address] WBC (Bld) [#/Vol] 8.84 10*3/uL Normal 3.70-11.00 [facility] Comment on above: Order Comment: Specimen Type: BLOOD SPEC IMENOrdering Facility: [facility] Address: [address] [place] [address] Performed By: #### 5 7021-8 ####[facility] LABCLIA [id number] [place] [address] IMMUNOFIXATION SCREEN, SERUM on 05-15-2024 INTERPRETATION (MPA) Atypical restricted bands are present in the IgG and lambda regions. Consistent with IgG lambda monoclonal gammopathy. Normal [facility] Comment on above: Order Comment: Specimen Type: BLOOD SPEC IMENOrdering Facility: [facility] Address: [address] [place] [address] Performed By: #### I FESC ####[facility] LABIA [id number] [place] [address] [place] MPA RESULT M protein is present. Abnormal No M p rotein is identified. [facility] Comment on above: Order Comment: Specimen Type: BLOOD SPEC IMENOrdering Facility: [facility] Address: [address] [place] [address] Performed By: #### I FES ####[facility] LABIA [id number] [place] [address] [place] STAFF REVIEW ([facility]) Reviewed by Gonzalo Haro MD, Ph.D ([id number]) Normal [facility] Comment on above: Order Comment: Specimen Type: BLOOD SPEC IMENOrdering Facility: [facility] Address: [address] [place] [address] Performed By: #### I FESC ####[facility] LABIA [id number] [place] [id number] [place] IMMUNOGLOBULINS,IGG,IGA,IGMo n 05-15-2024 IgA [Mass/Vol] 50 mg/dL Low 70-400 [facility] Comment on above: Order Comment: Specimen Type: BLOOD SPEC IMENOrdering Facility: [facility] Address: [address] [place] [address] Performed By: #### S ERIMM ####[facility] LABCLIA [id number] [place] [address] [place] IgG [Mass/Vol] 1119 mg/dL Normal 700-1600 [facility] Comment on above: Order Comment: Specimen Type: BLOOD SPEC IMENOrdering Facility: [facility] Address: [address] [place] [address] Performed By: #### S ERIMM ####[facility] LABCLIA [id number] [place] [address] [place] IgM [Mass/Vol] 69 mg/dL Normal 40-230 [facility] Comment on above: Order Comment: Specimen Type: BLOOD SPEC IMENOrdering Facility: [facility] Address: [address] [place] [address] Performed By: #### S ERIMM ####[facility] LABIA [id number] [place] [address] [place] KAPPA/LIM,FREE,SERon 2024 Immunoglobulin light chains.kappa.zaida e (S) [Mass/Vol] 23.6 mg/L High 3.3-19.4 [facility] Comment on above: Order Comment: Specimen Type: BLOOD SPEC IMENOrdering Facility: [facility] Address: [address] [place] [address] Result Comment: Rare ly, increased serum free light chains levels may not be detected or accurately quantified due to prozone phenomenon or in high viscosity samples using this immunoturbidimetric assay. Correlation with other laboratory results and clinical findings is recommended. The [place] Free Light Chain was performed using the Binding Site Optilite immunoturbidimetric method. Result obtained with different assay methods or kits cannot be used interchangeably. Performed By: #### K LFRS ####[facility] LABIA [id number] [place] [address] [place] Immunoglobulin light chains.kappa/Imm unoglobulin light chains.lambda (S) [Mass ratio] 1.34 Normal 0.26-1.65 [facility] Comment on above: Order Comment: Specimen Type: BLOOD SPEC IMENOrdering Facility: [facility] Address: [address] [place] [address] Performed By: #### K LFRS ####[facility] LABCLIA [id number] [place] [address] [place] Immunoglobulin light chains.lambda.fr ee [Mass/Vol] 17.6 mg/L Normal 5.7-26.3 [facility] Comment on above: Order Comment: Specimen Type: BLOOD SPEC IMENOrdering Facility: [facility] Address: [address] [place] [address] Result Comment: Rare ly, increased serum free [...] Performed By: #### K LFRS ####[facility] LABCLIA [id number] [place] [address] [place] PROTEIN ELECTROPHORESIS SERU M WITH FAUSTINA (P)on 05-15-2024 Albumin [Mass/Vol] 3.99 g/dL Normal 3.43-5.41 [facility] Comment on above: Order Comment: Specimen Type: BLOOD SPEC IMENOrdering Facility: [facility] Address: [address] [place] [address] Performed By: #### L [id number] ####[facility] LABCLIA [id number] [place] [id number] [place] Alpha 1 globulin Elph [Mass/Vol] 0.31 g/dL Normal 0.18-0.43 [facility] Comment on above: Order Comment: Specimen Type: BLOOD SPEC IMENOrdering Facility: [facility] Address: [address] [place] [address] Performed By: #### L [id number] ####[facility] LABIA [id number] [place] [address] [place] Alpha 2 globulin Elph [Mass/Vol] 0.81 g/dL Normal 0.42-0.98 [facility] Comment on above: Order Comment: Specimen Type: BLOOD SPEC IMENOrdering Facility: [facility] Address: [address] [place] [address] Performed By: #### L [id number] ####[facility] LABIA [id number] [place] [address] [place] Beta globulin Elph [Mass/Vol] 0.76 g/dL Normal 0.61-1.17 [facility] Comment on above: Order Comment: Specimen Type: BLOOD SPEC IMENOrdering Facility: [facility] Address: [address] [place] [address] Performed By: #### L [id number] ####[facility] [id number] [place] [address] [place] COMMENT (SERUM PROT ELECTRO) Monoclonal Protein analysis (immunofixation) is not indicated. Normal [facility] Comment on above: Order Comment: Specimen Type: BLOOD SPEC IMENOrdering Facility: [facility] Address: [address] [place] [address] Performed By: #### L [id number] ####[facility] [id number] [place] [address] [place] Gamma globulin Elph [Mass/Vol] 1.03 g/dL Normal 0.53-1.51 [facility] Comment on above: Order Comment: Specimen Type: BLOOD SPEC IMENOrdering Facility: [facility] Address: [address] [place] [address] Performed By: #### L [id number] ####[facility] LABIA [id number] [place] [id number] [place] INTERPRETATION COMMENT FOR PROTEIN ELECTROPHORESIS See separate immunofixation report for characterization of monoclonal gammopathy. Normal [facility] Comment on above: Order Comment: Specimen Type: BLOOD SPEC IMENOrdering Facility: [facility] Address: [address] [place] [address] Performed By: #### L [id number] ####[facility] LABIA [id number] [place] [id number] [place] M-PROTEIN LOCATION Gamma Fraction 1 Normal [facility] Comment on above: Order Comment: Specimen Type: BLOOD SPEC IMENOrdering Facility: [facility] Address: [address] [place] [address] Performed By: #### L [id number] ####[facility] [id number] [place] [address] [place] Protein Fractions [Interp] An M protein is identified on protein electrophoresis. Abnormal No definitive M protein is identified on protein electrophoresis. [facility] Comment on above: Order Comment: Specimen Type: BLOOD SPEC IMENOrdering Facility: [facility] Address: [address] [place] [address] Performed By: #### L [id number] ####[facility] [id number] [place] [address] [place] Protein.monoclon al Elph [Mass/Vol] 0.78 g/dL High <=0.00 [facility] Comment on above: Order Comment: Specimen Type: BLOOD SPEC IMENOrdering Facility: [facility] Address: [address] [place] [address] Performed By: #### L [id number] ####[facility] LABIA [id number] [place] [id number] [place] SPE STAFF REVIEW Reviewed by Gonzalo Haro MD, Ph.D ([id number]) Normal [facility] Comment on above: Order Comment: Specimen Type: BLOOD SPEC IMENOrdering Facility: [facility] Address: [address] [place] [address] Performed By: #### L [id number] ####[facility] LABCLIA [id number] [place] [id number] [place] Prot SerPl-mCncon 05-15-2024 Protein [Mass/Vol] 6.9 g/dL Normal 6.3-8.0 [facility] Comment on above: Order Comment: Specimen Type: BLOOD SPEC IMENOrdering Facility: [facility] Address: [address] [place] [address] Performed By: #### 2 885-2 ####[facility] LABCLIA [id number] [place] [address] [place] [facility] 05-07-2024 Prostate specific Ag [Mass/Vol] ng/mL Normal <2.60 [facility] Comment on above: Order Comment: Specimen Type: BLOOD SPEC IMENOrdering Facility: [facility] Address: [address] [place] [address] Result Comment: Tota l PSA test methodology used is the Electrochemiluminescence Immunoassay by [employer]. Total PSA values by differing methodologies cannot be interchanged. Performed By: #### 2 857-1 ####[facility] LABCLIA [id number] [place] [address] [place] XR ABDOMEN 1V [...] any questions regarding this interpretation, please call [phone]. If you are unable to reach us at the number above, please feel free to contact [facility] eRadiology at [phone]. [id number] Normal [facility] Urology Office/Clinic Noteon 03-04-2024 Urology Office/Clinic Note [...] in dark side documents dated 09/27/21 from [facility]). PSMA PET scan 10/28/22 at [facility] - Neg for mets; approx 1.5cm [...] URL [facility] [address], [facility] [phone] Additional Instructions: Has f/u 05/20/24 w/ PSA and Eligard and KUB, also to schedule cysto Patient Education Cystosc (more content not included)... Normal [facility] Comment on above: Result Comment: Electronically Signed By : Yosef GRIMES MD\.br\Date and Time Signed: 03/04/24 10:56 EST\.br\Electronically Co-Signed By: Odette Cottrell\.br\Date and Time Co-Signed: 03/04/24 10:55 EST James 02-22-2024 L - -------- Specimen: [id number] Received: 02/23/24 Status: COLE Kay Num: [id number] Spec Type: Surgical Subm Dr: Yosef Grimes MD Tissues: A Urinary Bladder - TUR (BLADDER LESION) Procedures: HE/3, Gross/Micro L5, AE1-AE3, CK20, P53 -------- Age/ Patient Sex Location Account Attending Physician -------- Adolph Johns 78/M LABELL [id number] Yosef Grimes MD -------- SPEC NUM: [id number] RECD: 02/23/24 STATUS: COLE KAY NUM: [id number] JOSE ANGEL: 02/22/[address] [facility] [address]: Yosef Grimes MD ENTERED: 02/23/[address]: William Peterson SPEC TYPE: Surgical DEPT: LUCY SAUL ENTERED BY: [id number] RECV BY: [id number] ORDERED: HE/3, Gross/Micro L5, AE1-AE3, CK20, P53 [...] [id number] Received: 02/23/24-1220 Status: COLE Kay Num: [id number] Spec Type: Surgical Subm Dr: Yosef Grimes MD Tissues: A Urinary Bladder - TUR (BLADDER LESION) Procedures: HE/3, Gross/Micro L5, AE1-AE3, CK20, P53 -------- Patient: Adolph Johns [id number] (Continued) -------- Specimen: [id number] Received: 02/23/24 (Continued) Pathological Diagnosis (Continued) Signed (signature on file) Bertha Kline MD 02/27/241651 -------- Specimen: [id number] Received: 02/23/24 Status: COLE Kay Num: [id number] Spec Type: Surgical Subm Dr: Yosef Grimes MD Tissues: A Urinary Bladder - TUR (BLADDER LESION) Procedures: HE/3, Gross/Micro L5, AE1-AE3, CK20, P53 -------- Patient: Adolph Johns [id number] (Continued) -------- Specimen: [id number] Received: 02/23/24-1220 (Continued) [...] urothelial layer in all fragments also show wet char conveyor tender or adequate streaming maturation -AE1/3 IHC did [...] performed supporting the above interpretation CPT Codes 22870 69965 (more content not included)... Normal [facility] Heart and V[facility] Office/Cl inic [...] Not Given Parent Or Guardian Refuses Normal [facility] Comment on above: Result Comment: Electronically Signed By : Bob ROSARIO, Meño\.arun\Date and Time Signed: 01/23/24 13:[address] UROGRAM WO/W IVCONon 12- CT UROGRAM WO/W IVCON * * *Final Report* * * DATE OF EXAM: Jan 19 2024 9:37AM [facility] 0560 - CT UROGRAM WO/W [...] Linear band of scarring right lower lobe. Pilot Fuel Engineer (topogram) images: Unremarkable. IMPRESSION: Decreased size of [...] any questions regarding this interpretation, please call [phone]. If you are unable to reach us at the number above, please feel free to contact [facility] eRadiology at [phone]. [id number] N Normal [facility] Urine Cytology ([facility])on 03-17-2023 Microscopic exam Cytology (U) [Interp] Diagnosis Info Invalid Interpretation Code [facility] Comment on above: Result Comment: A:Urine,Urine:Voided Interpretation - Adequate cellularity for evaluation. CPT 26301 MicroScopic Description - Adequacy - Gross Description Site ID:A color Yellow fixative Alcohol Specimen designated Urine received in alcohol preservative and labeled with the patient???s name, consists of 50ml clear yellow fluid. Electronically signed by : on: 01/15/2024 13:14:46 Performed By: #### 1 [id number] ####[facility] [address] [place] [address] Ambulatory Visit Summaryon 03-12-2023 Ambulatory Visit Summary [...] Yosef GRIMES MD Where: [facility] [address] [place] [address] 2024 11:00 AM EDT With: Where: [facility] [address] [address]- You Need to Schedule the Following Appointments Follow Up with Yosef GRIMES MD, URL When: Where: [facility] [address] [place] [address] Medications What How Much When Instructions Unchanged [...] these instructions at home: Medicines ??? Take ewcu-znj-vcupzqn and prescription medicines only as told by your health care provider. ??? If you were prescribed an antibiotic medicine, take it as told by your health care provider. Do not stop taking the antibiotic even if you start to feel better. ??? (more content not included)... Normal [facility] Urology Office/Clinic Noteon 01-10-2024 Urology Office/Clinic [...] in dark side documents dated 09/27/21 from [facility]). PSMA PET scan 10/28/22 at [facility] - Neg for mets; approx 1.5cm R [...] [facility] (more content not included)... Normal [facility] Comment on above: Result Comment: Electronically [...] Yosef GRIMES MD Where: [facility] [address] [place] [address]- Monday 12:45 PM EDT With: Yosef GRIMES MD Where: [facility] [address] [place] [address] 2024 11:00 AM EDT With: Where: [facility] [address] [address]- You Need to Schedule the Following Appointments Follow Up with Yosef GRIMES MD, URL When: Where: [facility] [address] [place] [phone] Medications What How Much When Instructions New ciprofloxacin (Cipro 500 mg Tab) 1 Tablets By Mouth Every day take one tab day before procedure and one tab after procedure Pickup at [facility] Unchanged abiraterone (abiraterone 250 mg oral tablet) [...] physician if questions or concerns Pharmacy Information [facility]: [address] [place], [place] [id number] [phone] Allergies oxytetracycline (Fever, Swelling at injection site) [...] microscope (biopsy (more content not included)... Normal [facility] Urine Cytology ([facility])on 03-10-2023 Method of Extraction Voided Normal [facility] Comment on above: Performed By: #### [id number] ####[facility] [address] [place] [address] Number of Jars 1 Invalid Interpretation Code [facility] Comment on above: Performed By: #### [id number] ####[facility] [address] [place] [address] Specimen Urine Normal [facility] Comment on above: Performed By: #### [id number] ####[facility] [address] [place] [address] Type of Service Technical Only Normal [facility] Comment on above: Performed By: #### [id number] ####[facility] [address] [place] [address] Urology Office/Clinic Noteon 01-08-2024 Urology Office/Clinic Note [...] negative margins. PSMA PET scan 10/28/22 at [facility] - neg for mets; approx 1.5cm [...] MD, URL [facility] [address], [place] [phone] Additional Instructions: sched cysto Patient Education Cystoscopy Hematuria, Adult I, Odette Cottrell, personally scribed for Dr. Grimes on 01/08/2024 10:14:36. . Documentation recorded by the Odette casas (more content not included)... Normal [facility] Comment on above: Result Comment: Electronically [...] Locations R1: This test was performed at: [facility], [address] [place] [address], [address] , [place], Normal [facility] Comment on above: Performed By: #### [id number] #### [facility] [address] [place] [address] Ambulatory Visit Summaryon 1 03-02-2023 Ambulatory Visit [...] Yosef GRIMES MD Where: [facility] of [address] [place] [address] [place] [address]- Monday 12:45 PM EDT With: Yosef GRIMES MD Where: [facility] of [address] [place] [address] 2024 11:00 AM EDT With: Where: [facility] [address] [address]- Medications What How Much When Instructions Unchanged [...] for choosing us for your care. Normal [facility] Jameson 12-29-2023 MINDA Telephone (HIGINIO) ADOLPH JOHNS ([id number]) 1945 M Date Time Provider Department 12/29/23 [...] Encounter Status:Closed by PEGGY LAKHANI on 01/01/24 [facility] Ambulatory Visit Summaryon 1 Ambulatory Visit [...] Yosef GRIMES MD Where: [facility] of [address] [address] 2024 11:00 AM EDT With: Where: [facility] [address] [address]- You Need to Schedule the Following Appointments Follow Up with CORNELIO ROSARIO, RADHA Pires When: Where: [address] [place], [place] [id number]- Medications What How Much When Instructions Unchanged [...] diagnosed? Th (more content not included)... Normal [facility] Urology Office/Clinic Noteon 11-24-2023 Urology Office/Clinic [...] negative margins. PSMA PET scan 10/28/22 at [facility] - neg for mets; approx 1.5cm [...] Information CORNELIO ROSARIO, Yosef Bunch, URL [address] [place] [address]- Additional Instructions: 6 mos w/ PSA & Eligard Patient Education Prostate Cancer I, Esme Noonan, personally scribed for Dr. Grimes on 11/24/2023 12:35:23. . Documentation recorded by the scribe, Esme Noonan, accurately reflects the services(s) I performed and decisions made by me. Authenticated by Dr. rGimes on 11/24/2023 12:43:00. Problem List/Past Medical History [...] biopsy of (more content not included)... Normal [facility] Comment on above: Result Comment: Electronically Signed By : Yosef GRIMES MD\.br\Date and Time Signed: 11/24/23 12:43 EDT\.br\Electronically Co-Signed By: Esme Noonan.br\Date and Time Co-Signed: 11/24/23 12:36 EDT Basic metabolic 2000 panelOr dered By: Holly Díaz on 11-16-2023 Anion gap [Moles/Vol] 13 mmol/L 8 - 15 mmol/L [facility] Calcium [Mass/Vol] 10.3 mg/dL High 8.5 - 10.2 mg/dL [facility] Chloride [Moles/Vol] 102 mmol/L 98 - 107 mmol/L [facility] CO2 [Moles/Vol] 23 mmol/L 22 - 30 mmol/L [facility] Creatinine [Mass/Vol] 1.35 mg/dL High 0.73 - 1.22 mg/dL [facility] GFR/1.73 sq M.predicted among non-blacks MDRD (S/P/Bld) [Vol rate/Area] 54 mL/min/{1.73_m2} Low - PINF [facility] Comment on above: Estimated Glomerular Filtration Rate [...] 276 mg/dL High 74 - 99 mg/dL [facility] Comment on above: [employer] (ADA) provides guidance for cutoff [...] Standards of Medical Care in Diabetes 2016, [place] [employer]. Diabetes Care. 2016.39(Suppl 1). Interpretation and review of laboratory results Abnormal [facility] Potassium [Moles/Vol] 4.0 mmol/L 3.7 - 5.1 mmol/L [facility] Sodium [Moles/Vol] 138 mmol/L 136 - 144 mmol/L [facility] Urea nitrogen [Mass/Vol] 22 mg/dL 9 - 24 mg/dL [facility] Basic metabolic 2000 panelon 11-16-2023 Anion gap [Moles/Vol] 13 mmol/L Normal 8-15 [facility] Comment on above: Order Comment: Specimen Type: BLOOD SPEC IMENOrdering Facility: [facility] Address: [address] [place] [address] Performed By: #### 2 4321-2 ####[facility] LABCLIA [id number] [place] [address] Calcium [Mass/Vol] 10.3 mg/dL High 8.5-10.2 [facility] Comment on above: Order Comment: Specimen Type: BLOOD SPEC IMENOrdering Facility: [facility] Address: [address] [place] [address] Performed By: #### 2 4321-2 ####[facility] LABCLIA [id number] [place] [address] Chloride [Moles/Vol] 102 mmol/L Normal 98-107 [facility] Comment on above: Order Comment: Specimen Type: BLOOD SPEC IMENOrdering Facility: [facility] Address: [address] [place] [address] Performed By: #### 2 4321-2 ####[facility] LABCLIA [id number] [place] [address] CO2 [Moles/Vol] 23 mmol/L Normal 22-30 [facility] Comment on above: Order Comment: Specimen Type: BLOOD SPEC IMENOrdering Facility: [facility] Address: [address] [place] [address] Performed By: #### 2 4321-2 ####[facility] LABCLIA [id number] [place] [address] Creatinine [Mass/Vol] 1.35 mg/dL High 0.73-1.22 [facility] Comment on above: Order Comment: Specimen Type: BLOOD SPEC IMENOrdering Facility: [facility] Address: [address] [place] [address] Performed By: #### 2 4321-2 ####[facility] LABCLIA [id number] [place] [address] Creatinine and Glomerular filtration rate.predicted panel (S/P/Bld) 54 mL/min/1.73m??? Low >=60 [facility] Comment on above: Order Comment: Specimen Type: BLOOD SPEC IMENOrdering Facility: [facility] Address: [address] [place] [address] Result Comment: Paty mated Glomerular Filtration Rate [...] actual GFR. Performed By: #### 2 4321-2 ####[facility] LABIA [id number] [place] [address] Glucose [Mass/Vol] 276 mg/dL High 74-99 [facility] Comment on above: Order Comment: Specimen Type: BLOOD SPEC IMENOrdering Facility: [facility] Address: [address] [place] [address] Result Comment: The [place] [employer] (ADA) provides guidance for cutoff [...] Standards of Medical Care in Diabetes 2016, [place] [employer]. Diabetes Care. 2016.39(Suppl 1). Performed By: #### 2 4321-2 ####[facility] LABIA [id number] [place] [address] Potassium [Moles/Vol] 4.0 mmol/L Normal 3.7-5.1 [facility] Comment on above: Order Comment: Specimen Type: BLOOD SPEC IMENOrdering Facility: [facility] Address: [address] [place] [address] Performed By: #### 2 4321-2 ####[facility] LABCLIA [id number] [place] [address] Sodium [Moles/Vol] 138 mmol/L Normal 136-144 [facility] Comment on above: Order Comment: Specimen Type: BLOOD SPEC IMENOrdering Facility: [facility] Address: [address] [place] [address] Performed By: #### 2 4321-2 ####[facility] LABCLIA [id number] [place] [address] Urea nitrogen [Mass/Vol] 22 mg/dL Normal 9-24 [facility] Comment on above: Order Comment: Specimen Type: BLOOD SPEC IMENOrdering Facility: [facility] Address: [address] [place] [address] Performed By: #### 2 4321-2 ####[facility] LABCLIA [id number] [place] [address] CBC W Auto Differential pane l (Bld)on 11-16-2023 Basophils (Bld) [#/Vol] 0.03 10*3/uL [facility] Basophils/100 WBC (Bld) 0.4 % [facility] Differential cell count method Nom (Bld) Auto [facility] Eosinophils (Bld) [#/Vol] 0.08 10*3/uL [facility] Eosinophils/100 WBC (Bld) 1.0 % [facility] Erythrocyte distribution width (RBC) [Ratio] 14.6 % 11.5 - 15.0 % [facility] Hematocrit (Bld) [Volume fraction] 40.6 % 39.0 - 51.0 % [facility] Hemoglobin (Bld) [Mass/Vol] 13.7 g/dL 13.0 - 17.0 g/dL [facility] Immature granulocytes (Bld) [#/Vol] 0.12 10*3/uL High [facility] Immature granulocytes/100 WBC (Bld) 1.5 % [facility] Interpretation and review of laboratory results Abnormal [facility] Lymphocytes (Bld) [#/Vol] 0.64 10*3/uL Low [facility] Lymphocytes/100 WBC (Bld) 7.9 % [facility] MCH (RBC) [Entitic mass] 30.6 pg 26.0 - 34.[address] [facility] MCHC (RBC) [Mass/Vol] 33.7 g/dL 30.5 - 36.0 g/dL [facility] MCV (RBC) [Entitic vol] 90.8 fL 80.0 - 100.[address] [facility] Monocytes (Bld) [#/Vol] 0.50 10*3/uL [facility] Monocytes/100 WBC (Bld) 6.2 % [facility] Neutrophils (Bld) [#/Vol] 6.74 10*3/uL [facility] Neutrophils/100 WBC (Bld) 83.0 % [facility] Nucleated RBC (Bld) [#/Vol] [facility] Nucleated RBC/100 WBC (Bld) [Ratio] 0.0 % /[address] [facility] Platelet mean volume (Bld) [Entitic vol] 10.2 fL 9.0 - 12.[address] [facility] Platelets (Bld) [#/Vol] 191 10*3/uL [facility] RBC (Bld) [#/Vol] 4.47 10*6/uL 4.20 - 6.00 m/uL [facility] WBC (Bld) [#/Vol] 8.11 10*3/uL [facility] Basophils (Bld) [#/Vol] 0.03 10*3/uL Normal <0.11 [facility] Comment on above: Order Comment: Specimen Type: BLOOD SPEC IMENOrdering Facility: [facility] Address: [address] [place] [address] Performed By: #### 5 7021-8 ####[facility] LABCLIA [id number] [place] [address] Basophils/100 WBC (Bld) 0.4 % Normal [facility] Comment on above: Order Comment: Specimen Type: BLOOD SPEC IMENOrdering Facility: [facility] Address: [address] [place] [address] Performed By: #### 5 7021-8 ####[facility] LABCLIA [id number] [place] [address] Differential cell count method Nom (Bld) Auto Normal [facility] Comment on above: Order Comment: Specimen Type: BLOOD SPEC IMENOrdering Facility: [facility] Address: [address] [place] [address] Performed By: #### 5 7021-8 ####[facility] LABCLIA [id number] [place] [address] Eosinophils (Bld) [#/Vol] 0.08 10*3/uL Normal <0.46 [facility] Comment on above: Order Comment: Specimen Type: BLOOD SPEC IMENOrdering Facility: [facility] Address: [address] [place] [address] Performed By: #### 5 7021-8 ####[facility] LABCLIA [id number] [place] [address] Eosinophils/100 WBC (Bld) 1.0 % Normal [facility] Comment on above: Order Comment: Specimen Type: BLOOD SPEC IMENOrdering Facility: [facility] Address: [address] [place] [address] Performed By: #### 5 7021-8 ####[facility] LABCLIA [id number] [place] [address] Erythrocyte distribution width (RBC) [Ratio] 14.6 % Normal 11.5-15.0 [facility] Comment on above: Order Comment: Specimen Type: BLOOD SPEC IMENOrdering Facility: [facility] Address: [address] [place] [address] Performed By: #### 5 7021-8 ####[facility] LABCLIA [id number] [place] [address] Hematocrit (Bld) [Volume fraction] 40.6 % Normal 39.0-51.0 [facility] Comment on above: Order Comment: Specimen Type: BLOOD SPEC IMENOrdering Facility: [facility] Address: [address] [place] [address] Performed By: #### 5 7021-8 ####[facility] LABCLIA [id number] [place] [address] Hemoglobin (Bld) [Mass/Vol] 13.7 g/dL Normal 13.0-17.0 [facility] Comment on above: Order Comment: Specimen Type: BLOOD SPEC IMENOrdering Facility: [facility] Address: [address] [place] [address] Performed By: #### 5 7021-8 ####[facility] LABCLIA [id number] [place] [address] Immature granulocytes (Bld) [#/Vol] 0.12 10*3/uL High <0.10 [facility] Comment on above: Order Comment: Specimen Type: BLOOD SPEC IMENOrdering Facility: [facility] Address: [address] [place] [address] Performed By: #### 5 7021-8 ####[facility] LABCLIA [id number] [place] [address] Immature granulocytes/100 WBC (Bld) 1.5 % Normal [facility] Comment on above: Order Comment: Specimen Type: BLOOD SPEC IMENOrdering Facility: [facility] Address: [address] [place] [address] Performed By: #### 5 7021-8 ####[facility] LABCLIA [id number] [place] [address] Lymphocytes (Bld) [#/Vol] 0.64 10*3/uL Low 1.00-4.00 [facility] Comment on above: Order Comment: Specimen Type: BLOOD SPEC IMENOrdering Facility: [facility] Address: [address] [place] [address] Performed By: #### 5 7021-8 ####[facility] LABCLIA [id number] [place] [address] Lymphocytes/100 WBC (Bld) 7.9 % Normal [facility] Comment on above: Order Comment: Specimen Type: BLOOD SPEC IMENOrdering Facility: [facility] Address: [address] [place] [address] Performed By: #### 5 7021-8 ####[facility] LABCLIA [id number] [place] [address] MCH (RBC) [Entitic mass] 30.6 pg Normal 26.0-34.0 [facility] Comment on above: Order Comment: Specimen Type: BLOOD SPEC IMENOrdering Facility: [facility] Address: [address] [place] [address] Performed By: #### 5 7021-8 ####[facility] LABCLIA [id number] [place] [address] MCHC (RBC) [Mass/Vol] 33.7 g/dL Normal 30.5-36.0 [facility] Comment on above: Order Comment: Specimen Type: BLOOD SPEC IMENOrdering Facility: [facility] Address: [address] [place] [address] Performed By: #### 5 7021-8 ####[facility] LABCLIA [id number] [place] [address] MCV (RBC) [Entitic vol] 90.8 fL Normal 80.0-100.0 [facility] Comment on above: Order Comment: Specimen Type: BLOOD SPEC IMENOrdering Facility: [facility] Address: [address] [place] [address] Performed By: #### 5 7021-8 ####[facility] LABCLIA [id number] [place] [address] Monocytes (Bld) [#/Vol] 0.50 10*3/uL Normal <0.87 [facility] Comment on above: Order Comment: Specimen Type: BLOOD SPEC IMENOrdering Facility: [facility] Address: [address] [place] [address] Performed By: #### 5 7021-8 ####[facility] LABCLIA [id number] [place] [address] Monocytes/100 WBC (Bld) 6.2 % Normal [facility] Comment on above: Order Comment: Specimen Type: BLOOD SPEC IMENOrdering Facility: [facility] Address: [address] [place] [address] Performed By: #### 5 7021-8 ####[facility] LABCLIA [id number] [place] [address] Neutrophils (Bld) [#/Vol] 6.74 10*3/uL Normal 1.45-7.50 [facility] Comment on above: Order Comment: Specimen Type: BLOOD SPEC IMENOrdering Facility: [facility] Address: [address] [place] [address] Performed By: #### 5 7021-8 ####[facility] LABCLIA [id number] [place] [address] Neutrophils/100 WBC (Bld) 83.0 % Normal [facility] Comment on above: Order Comment: Specimen Type: BLOOD SPEC IMENOrdering Facility: [facility] Address: [address] [place] [address] Performed By: #### 5 7021-8 ####[facility] LABCLIA [id number] [place] [address] Nucleated RBC (Bld) [#/Vol] 10*3/uL Normal <0.01 [facility] Comment on above: Order Comment: Specimen Type: BLOOD SPEC IMENOrdering Facility: [facility] Address: [address] [place] [address] Performed By: #### 5 7021-8 ####[facility] LABCLIA [id number] [place] [address] Nucleated RBC/100 WBC (Bld) [Ratio] 0.0 /100 WBC Normal [facility] Comment on above: Order Comment: Specimen Type: BLOOD SPEC IMENOrdering Facility: [facility] Address: [address] [place] [address] Performed By: #### 5 7021-8 ####[facility] LABCLIA [id number] [place] [address] Platelet mean volume (Bld) [Entitic vol] 10.2 fL Normal 9.0-12.7 [facility] Comment on above: Order Comment: Specimen Type: BLOOD SPEC IMENOrdering Facility: [facility] Address: [address] [place] [address] Performed By: #### 5 7021-8 ####[facility] LABIA [id number] [place] [address] Platelets (Bld) [#/Vol] 191 10*3/uL Normal 150-400 [facility] Comment on above: Order Comment: Specimen Type: BLOOD SPEC IMENOrdering Facility: [facility] Address: [address] [place] [address] Performed By: #### 5 7021-8 ####[facility] LABCLIA [id number] [place] [address] RBC (Bld) [#/Vol] 4.47 10*6/uL Normal 4.20-6.00 [facility] Comment on above: Order Comment: Specimen Type: BLOOD SPEC IMENOrdering Facility: [facility] Address: [address] [place] [address] Performed By: #### 5 7021-8 ####[facility] LABIA [id number] [place] [address] WBC (Bld) [#/Vol] 8.11 10*3/uL Normal 3.70-11.00 [facility] Comment on above: Order Comment: Specimen Type: BLOOD SPEC IMENOrdering Facility: [facility] Address: [address], [place] [address] Performed By: #### 5 7021-8 ####[facility] [id number] [place] [address] CNOVon 11-16-2023 CNOV Office Visit (RADTSA ) ADOLPH JOHNS ([id number]) 1945 M Date Time Provider Department 11/16/23 2:15 PM David KUMARI RADRADHA During your visit today, we recorded the following information about you: Temperature Pulse Respiration Blood pressure 96.7 degrees 93/minute 18/minute 124/73 Weight 118.6 kg Peggy Lakhani RN 11/16/2023 2:34 PM Signed AUA 6 SINDI Salazar G Phillip, MD 11/24/2023 2:26 PM Signed Radiation Oncology - Follow Up Note PATIENT NAME: Adolph Johns PATIENT DIAGNOSIS: Prostate adenocarcinoma, initial PSA 7.5, biopsy Pettus score 4 + 3 = 7 (grade [...] ASSESSMENT/PLAN: Prostate adenocarcinoma, initial PSA 7.5, biopsy Pettus score 4 + 3 = 7 (grade [...] Kumari MD cc: Shahriar Stephenson [address] [place] [address] No referring provider defined for this encounter. Allergies As of Date: 11/16/2023 Noted Allergy Reaction PENICILLINS 10/22/2019 2 - Rash 7 - Swelling TERAMYCIN (OXYTETRACYCLINE) 10/22/2019 16 - Unknown Date Reviewed: 11/16/2023 Reviewed by: Bettina Sargent FRANSISCO - Fully Assessed Reason for Visit: Prostate Cancer [590] Primary Visit Diagnosis:Malignant neoplasm of prostate (HCC) [C61] Order(s):PROSTATE-SPE CIFIC ANTIGEN DIAGNOSTIC [SQPSA] Order #: [id number] FUTURE Prescriptions as of 11/24/2023 - abiraterone [...] [N25.81] 01/16/2023 Platelets decreased (HCC) [D69.6] 01/16/2023 Visit Notes: >> Peggy Lakhani RN [facility] Nov 16, 2023 2:14 PM Status: Signed AUA 6 Peggy Lakhani RN Disposition: Return in about 6 months (around 05/16/2024). Follow-up and Disposition History for Encounter Date Provider Department Center 11/16/2023 [id number] KUMARI Encounter Status:Closed by David KUMARI on 11/24/23 [facility] CNOVSPon 11-16-2023 CNOVSP Visit (SP) Office ([facility]) ADOLPH JOHNS ([id number]) 1945 M Date Time Provider Department 11/16/23 [...] with urination. He plans to travel to [place] next week where he plans to spend [...] or petechiae. PATHOLOGY: 11/10/2022 Bladder tumor, TURBT ([facility]) Metastatic poorly differentiated adenocarcinoma, consistent [...] included)... Normal [facility] IMMUNOFIXATION SCREEN, SERUM on 11-16-2023 INTERPRETATION (MPA) Atypical restricted bands are present in the IgG and lambda regions. Consistent with IgG lambda monoclonal gammopathy. Normal [facility] Comment on above: Order Comment: Specimen Type: BLOOD SPEC IMENOrdering Facility: [facility] Address: [address] [place] [address] Performed By: #### I FESC ####[facility] LABCLIA [id number] [address] [place] MPA RESULT M protein is present. Abnormal No M p rotein is identified. [facility] Comment on above: Order Comment: Specimen Type: BLOOD SPEC IMENOrdering Facility: [facility] Address: [address] [place] [address] Performed By: #### I FESC ####[facility] LABCLIA [id number] [address] [place] STAFF REVIEW (MPA) Reviewed by Therese Junior MD Normal [facility] Comment on above: Order Comment: Specimen Type: BLOOD SPEC IMENOrdering Facility: [facility] Address: [address] [place] [address] Performed By: #### I FESC ####[facility] LABCLIA [id number] [place] [address] [place] IMMUNOGLOBULINS,IGG,IGA,IGMo n 11-16-2023 IgA [Mass/Vol] 55 mg/dL Low 70-400 [facility] Comment on above: Order Comment: Specimen Type: BLOOD SPEC IMENOrdering Facility: [facility] Address: [address] [place] [address] Performed By: #### S ERIMM ####[facility] LABCLIA [id number] [place] [address] [place] IgG [Mass/Vol] 1242 mg/dL Normal 700-1600 [facility] Comment on above: Order Comment: Specimen Type: BLOOD SPEC IMENOrdering Facility: [facility] Address: [address] [place] [address] Performed By: #### S ERIMM ####[facility] LABCLIA [id number] [place] [address] [place] IgM [Mass/Vol] 72 mg/dL Normal 40-230 [facility] Comment on above: Order Comment: Specimen Type: BLOOD SPEC IMENOrdering Facility: [facility] Address: [address] [place] [address] Performed By: #### S ERIMM ####[facility] LABCLIA [id number] [place] [address] [place] KAPPA/LIM,FREE,SERon 2023 Immunoglobulin light chains.kappa.zaida e (S) [Mass/Vol] 25.0 mg/L High 3.3-19.4 [facility] Comment on above: Order Comment: Specimen Type: BLOOD SPEC IMENOrdering Facility: [facility] Address: [address] [place] [address] Result Comment: Rare ly, increased serum free light chains levels may not be detected or accurately quantified due to prozone phenomenon or in high viscosity samples using this immunoturbidimetric assay. Correlation with other laboratory results and clinical findings is recommended. The [place] Free Light Chain was performed using the Binding Site Optilite immunoturbidimetric method. Result obtained with different assay methods or kits cannot be used interchangeably. Performed By: #### K LFRS ####[facility] LABIA [id number] [place] [address] [place] Immunoglobulin light chains.kappa/Imm unoglobulin light chains.lambda (S) [Mass ratio] 1.45 Normal 0.26-1.65 [facility] Comment on above: Order Comment: Specimen Type: BLOOD SPEC IMENOrdering Facility: [facility] Address: [address] [place] [address] Performed By: #### K LFRS ####[facility] [id number] [place] [address] [place] Immunoglobulin light chains.lambda.fr ee [Mass/Vol] 17.2 mg/L Normal 5.7-26.3 [facility] Comment on above: Order Comment: Specimen Type: BLOOD SPEC IMENOrdering Facility: [facility] Address: [address] [place] [address] Result Comment: Rare ly, increased serum free [...] used interchangeably. Performed By: #### K LFRS ####[facility] [id number] [place] [address] [place] PROTEIN ELECTROPHORESIS SERU M WITH FAUSTINA (P)on 11-16-2023 Albumin [Mass/Vol] 4.23 g/dL Normal 3.43-5.41 [facility] Comment on above: Order Comment: Specimen Type: BLOOD SPEC IMENOrdering Facility: [facility] Address: [address] [place] [address] Performed By: #### L [id number] ####[facility] LABIA [id number] [place] [address] [place] Alpha 1 globulin Elph [Mass/Vol] 0.32 g/dL Normal 0.18-0.43 [facility] Comment on above: Order Comment: Specimen Type: BLOOD SPEC IMENOrdering Facility: [facility] Address: [address] [place] [address] Performed By: #### L [id number] ####[facility] LABIA [id number] [place] [address] [place] Alpha 2 globulin Elph [Mass/Vol] 0.80 g/dL Normal 0.42-0.98 [facility] Comment on above: Order Comment: Specimen Type: BLOOD SPEC IMENOrdering Facility: [facility] Address: [address] [place] [address] Performed By: #### L [id number] ####[facility] [id number] [place] [address] [place] Beta globulin Elph [Mass/Vol] 0.77 g/dL Normal 0.61-1.17 [facility] Comment on above: Order Comment: Specimen Type: BLOOD SPEC IMENOrdering Facility: [facility] Address: [address] [place] [address] Performed By: #### L [id number] ####[facility] [id number] [place] [address] [place] COMMENT (SERUM PROT ELECTRO) Monoclonal Protein analysis (immunofixation) is not indicated. Normal [facility] Comment on above: Order Comment: Specimen Type: BLOOD SPEC IMENOrdering Facility: [facility] Address: [address] [place] [address] Performed By: #### L [id number] ####[facility] LABIA [id number] [place] [address] [place] Gamma globulin Elph [Mass/Vol] 1.18 g/dL Normal 0.53-1.51 [facility] Comment on above: Order Comment: Specimen Type: BLOOD SPEC IMENOrdering Facility: [facility] Address: [address] [place] [address] Performed By: #### L [id number] ####[facility] LABCLIA [id number] [place] [address] [place] INTERPRETATION COMMENT FOR PROTEIN ELECTROPHORESIS See separate immunofixation report for characterization of monoclonal gammopathy. Normal [facility] Comment on above: Order Comment: Specimen Type: BLOOD SPEC IMENOrdering Facility: [facility] Address: [address] [place] [address] Performed By: #### L [id number] ####[facility] LABIA [id number] [place] [address] [place] M-PROTEIN LOCATION Gamma Fraction 1 Normal [facility] Comment on above: Order Comment: Specimen Type: BLOOD SPEC IMENOrdering Facility: [facility] Address: [address] [place] [address] Performed By: #### L [id number] ####[facility] LABIA [id number] [place] [address] [place] Protein Fractions [Interp] An M protein is identified on protein electrophoresis. Abnormal No definitive M protein is identified on protein electrophoresis. [facility] Comment on above: Order Comment: Specimen Type: BLOOD SPEC IMENOrdering Facility: [facility] Address: [address] [place] [address] Performed By: #### L [id number] ####[facility] LABIA [id number] [place] [address] [place] Protein.monoclon al Elph [Mass/Vol] 0.73 g/dL High <=0.00 [facility] Comment on above: Order Comment: Specimen Type: BLOOD SPEC IMENOrdering Facility: [facility] Address: [address] [place] [address] Performed By: #### L [id number] ####[facility] LABCLIA [id number] [place] [id number] [place] SPE STAFF REVIEW Reviewed by Therese Junior MD Normal [facility] Comment on above: Order Comment: Specimen Type: BLOOD SPEC IMENOrdering Facility: [facility] Address: [address] [place] [address] Performed By: #### L [id number] ####[facility] LABCLIA [id number] [place] [address] [place] Prot SerPl-mCncon 11-16-2023 Protein [Mass/Vol] 7.3 g/dL Normal 6.3-8.0 [facility] Comment on above: Order Comment: Specimen Type: BLOOD SPEC IMENOrdering Facility: [facility] Address: [address] [place] [address] Performed By: #### 2 885-2 ####[facility] LABIA [id number] [place] [address] [place] Lipid 1996 panelon 4 Cholesterol [Mass/Vol] 167 mg/dL Normal <200 [facility] Comment on above: Order Comment: Specimen Type: BLOOD SPEC IMENOrdering Facility: External Submitter Address: , , Result Comment: <200 mg/dL, Desirable 200-239 mg/dL, Borderline high >239 mg/dL, High Performed By: #### 2 4331-1 ####[facility] LABCLIA [id number] [address] LABCLIA [id number] [place] [id number] Cholesterol in HDL [Mass/Vol] 37 mg/dL Low >39 [facility] Comment on above: Order Comment: Specimen Type: BLOOD SPEC IMENOrdering Facility: External Submitter Address: , , Result Comment: 40-5 9 mg/dL, Acceptable >59 mg/dL, High: Negative risk factor for coronary heart disease <40 mg/dL, Low: Positive risk factor for coronary heart disease Performed By: #### 2 4331-1 ####[facility] LABCLIA [id number] [address] [address] [facility] LABCLIA [id number] [place] [address] Cholesterol in LDL [Mass/Vol] 59 mg/dL Normal <100 [facility] Comment on above: Order Comment: Specimen Type: BLOOD SPEC IMENOrdering Facility: External Submitter Address: , , Result Comment: <100 mg/dL, Optimal 100-129 mg/dL, Near optimal/above optimal 130-159 mg/dL, Borderline high 160-189 mg/dL, High >189 mg/dL, Very high Secondary prevention optimal LDL Cholesterol levels are recommended to be < 70 mg/dL Performed By: #### 2 4331-1 ####[facility] LABCLIA [id number] [address] LABCLIA [id number] [place] [address] Cholesterol in LDL/Cholesterol in HDL [Mass ratio] 1.59 {ratio} Normal <2.54 [facility] Comment on above: Order Comment: Specimen Type: BLOOD SPEC IMENOrdering Facility: External Submitter Address: , , Result Comment: Refe rence: 1. National Cholesterol Education Program ATP III Guideline At-A-Glance Quick Desk Reference: National Heart, Lung, and Blood [place]. National Institutes of Health. 2001: NIH Publication No. 01-3305. 2. An International Atherosclerosis Society position paper: global recommendations for the management of dyslipidemia: executive summary, Atherosclerosis. 2014: 232(2):410-413. Performed By: #### 2 4331-1 ####[facility] LABCLIA [id number] [address] [address] [facility] LABCLIA [id number] [place] [address] Cholesterol in VLDL [Mass/Vol] 71 mg/dL High <30 [facility] Comment on above: Order Comment: Specimen Type: BLOOD SPEC IMENOrdering Facility: External Submitter Address: , , Performed By: #### 2 4331-1 ####[facility] LABCLIA [id number] [address] LABCLIA [id number] [place] [address] Cholesterol non HDL [Mass/Vol] 130 mg/dL High <130 [facility] Comment on above: Order Comment: Specimen Type: BLOOD SPEC IMENOrdering Facility: External Submitter Address: , , Result Comment: <130 mg/dL, Optimal 130-159 mg/dL, Near optimal/above optimal 160-189 mg/dL, Borderline high 190-219 mg/dL, High >219 mg/dL, Very high Secondary prevention optimal non HDL Cholesterol levels are recommended to be <100 mg/dL Performed By: #### 2 4331-1 ####[facility] LABCLIA [id number] [address] LABCLIA [id number] [place] [id number] Cholesterol.tota l/Cholesterol in HDL [Mass ratio] 4.51 {ratio} Normal <5.10 [facility] Comment on above: Order Comment: Specimen Type: BLOOD SPEC IMENOrdering Facility: External Submitter Address: , , Performed By: #### 2 4331-1 ####[facility] LABCLIA [id number] [address] LABCLIA [id number] [place] [id number] FASTING TIME 2 hrs Normal [facility] Comment on above: Order Comment: Specimen Type: BLOOD SPEC IMENOrdering Facility: External Submitter Address: , , Result Comment: nonf asting Performed By: #### 2 4331-1 ####[facility] LABCLIA [id number] [place] [id number] [facility] LABCLIA [id number] [place] [address] Triglyceride [Mass/Vol] 357 mg/dL High <150 [facility] Comment on above: Order Comment: Specimen Type: BLOOD SPEC IMENOrdering Facility: External Submitter Address: , , Result Comment: <150 mg/dL, Normal 150-199 mg/dL, Borderline high 200-499 mg/dL, High >499 mg/dL, Very high Performed By: #### 2 4331-1 ####[facility] LABCLIA [id number] [address] LABCLIA [id number] [place] [address] PSA [facility] 11-09-2023 Prostate specific Ag [Mass/Vol] ng/mL Normal <2.60 [facility] Comment on above: Order Comment: Specimen Type: BLOOD SPEC IMENOrdering Facility: [facility] Address: [address] [place] [address] Result Comment: Tota l PSA test methodology used is the Electrochemiluminescence Immunoassay by [employer]. Total PSA values by differing methodologies cannot be interchanged. Performed By: #### 2 857-1 ####[facility] LABCLIA [id number] [address] [facility] Ambulatory Visit Summaryon 0 10-24-2023 Ambulatory Visit Summary Ambulatory Visit Summary ADOLPH JOHNS :1945 Visit Date:10/23/2023 Ambulatory Visit Instructions Your Diagnosis Encounter for subsequent annual wellness visit in Medicare patient Prostate cancer Hypertension Immunization declined Obesity due to excess calories Your Care Team Attending Physician - Shilpa Naylor Primary Care Physician - Shilpa Naylor This Is Your Medications List Mis Prescription (Eliguard) Non-Formulary Medication (Mis Medication) abiraterone (abiraterone 250 mg oral tablet) [...] ROSARIO, Yosef Bunch Where: [facility] of [address] [address] 11:00 AM EDT With: Where: [facility] [address] [address]- Medications What How Much When Instructions Unchanged [...] call (more content not included)... Normal [place] [facility] Medicine Office/Clini c Noteon 10-24-2023 [...] of clutter to prevent tripping and/or falling. [place] Advance Directives reviewed. Documents remain at home/commercial attorney's office, encouraged to bring in for [...] order and will have them drawn at [facility] per his request. No concerns with bowel/ [...] Radical retropu (more content not included)... Normal [facility] Comment on above: Result Comment: Electronically [...] Appointments Monday 1:00 PM EDT With: Where: [facility] [address] [address]- Monday 11:00 AM EDT With: Yosef GRIMES MD Where: [facility] [address] [place] [address]- Medications What How Much When Instructions Unchanged [...] choosing us for your care. Normal [place] [facility] Medicine Office/Clini c Noteon 09-27-2023 [...] by [facility]. last PSA was undetectable Ordered: Lipid Panel 3. 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 Right knee [...] for 90 day(s), 90 tab(s), Refill(s) 3, [facility], 185, cm, 09/27/23 11:20:00 EDT, Height/Length Dosing, 116, kg, 09/27/23 11:20:00 EDT, Weight Dosing hydrochlorothiazide-l isinopril, 1 tab(s), Oral, Daily, 30 tab(s), Refill(s) 0, [facility], 190, cm, 05/22/23 11:33:00 EDT, [...] Cancer - unknown origin: Father. Hypertension: Mother. [facility] Comment on above: Result Comment: Electronically Signed By : Shilpa Naylor\mariana\Date and Time Signed: 09/27/23 12:26 EDT Consultation Noteon 05-29-19 Consultation Note [id number] .00TIFF [facility] Consultation Noteon 05-26-19 Consultation Note [id number] .00TIFF [facility] Ambulatory Visit Summaryon 0 05-22-2023 Ambulatory [...] Appointments Monday 1:00 PM EDT With: Where: [facility] [place] Normal [address] [place] [address] [place] [address]- \.br\ You Need to Schedule the Following Appointments\.br\ Follow Up with CORNELIO ROSARIO, Yosef Bunch, URL When: \.br\ Comments:\.br\ 6 mos w/ PSA (gets level from [facility])\.br\ Where:\.br\ [facility] [address] [place]\.br\ [place] [address]-\.br\ [phone]\.br\ Medications\.br\ What How Much When Instructions\.br\ Unchanged [...] Where to find more information\.br\ ? \.br\ [place] [employer]: www.cancer.org\.br\ ? \.br\ National Cancer [place]: www.cancer.gov\.br\ Contact a health care provider if:\.br\ [...] half of your body.\.br\ ? \.br\ [facility] Patient Educationon 05-22-19 24 Patient Education [...] cancer. Where to find more information ? [place] [employer]: www.cancer.org ? National Cancer [place]: www.cancer.gov Contact a health care provider if: [...] emergenc (more content not included)... Normal [place] [facility] Urology Office/Clinic Noteon 05-22-2023 Urology Office/Clinic [...] - <0.02 PSMA PET scan 10/28/22 at [facility] - neg for mets; approx 1.5cm [...] [facility] [address], [place] [address] [phone] Additional Instructions: 6 mos w/ PSA (gets [...] mg Tab (more content not included)... Normal [facility] Comment on above: Result Comment: Electronically Signed By : Yosef GRIMES MD.br\Date and Time Signed: 05/22/23 12:03 EDT\.br\Electronically Co-Signed By: Odette Cottrell\Date and Time Co-Signed: 05/22/23 12:01 EDT Pre-Certification Formon Pre-Certificatio n Form [id number] .00TIFF Normal [facility] CBC W Auto Differential pane l (Bld)on 01-05-2023 Basophils (Bld) [#/Vol] <0.11 k/uL [facility] Basophils/100 WBC (Bld) 0.3 % [facility] Differential cell count method Nom (Bld) Auto [facility] Eosinophils (Bld) [#/Vol] 0.09 10*3/uL <0.46 k/uL [facility] Eosinophils/100 WBC (Bld) 1.1 % [facility] Erythrocyte distribution width (RBC) [Ratio] 14.9 % 11.5 - 15.0 % [facility] Hematocrit (Bld) [Volume fraction] 44.5 % 39.0 - 51.0 % [facility] Hemoglobin (Bld) [Mass/Vol] 15.0 g/dL 13.0 - 17.0 g/dL [facility] Immature granulocytes (Bld) [#/Vol] 0.08 10*3/uL <0.10 k/uL [facility] Immature granulocytes/100 WBC (Bld) 1.0 % [facility] Lymphocytes (Bld) [#/Vol] 0.45 10*3/uL Low 1.00 - 4.00 k/uL [facility] Lymphocytes/100 WBC (Bld) 5.6 % [facility] MCH (RBC) [Entitic mass] 29.1 pg 26.0 - 34.[address] [facility] MCHC (RBC) [Mass/Vol] 33.7 g/dL 30.5 - 36.0 g/dL [facility] MCV (RBC) [Entitic vol] 86.2 fL 80.0 - 100.[address] [facility] Monocytes (Bld) [#/Vol] 0.66 10*3/uL <0.87 k/uL [facility] Monocytes/100 WBC (Bld) 8.3 % [facility] Neutrophils (Bld) [#/Vol] 6.67 10*3/uL 1.45 - 7.50 k/uL [facility] Neutrophils/100 WBC (Bld) 83.7 % [facility] Nucleated RBC (Bld) [#/Vol] <0.01 k/uL [facility] Nucleated RBC/100 WBC (Bld) [Ratio] 0.0 /[address] [facility] Platelet mean volume (Bld) [Entitic vol] 10.1 fL 9.0 - 12.[address] [facility] Platelets (Bld) [#/Vol] 100 10*3/uL Low 150 - 400 k/uL [facility] RBC (Bld) [#/Vol] 5.16 10*6/uL 4.20 - 6.00 m/uL [facility] WBC (Bld) [#/Vol] 7.97 10*3/uL 3.70 - 11.00 k/uL [facility] Comprehensive metabolic 2000 panelon 01-05-2023 Albumin [Mass/Vol] 4.8 g/dL 3.9 - 4.9 g/dL [facility] ALP [Catalytic activity/Vol] 50 U/L 38 - 113 U/L [facility] ALT [Catalytic activity/Vol] 9 U/L Low 10 - 54 U/L [facility] Anion gap [Moles/Vol] 12 mmol/L 9 - 18 mmol/L [facility] AST [Catalytic activity/Vol] 14 U/L 14 - 40 U/L [facility] Bilirubin [Mass/Vol] 0.8 mg/dL 0.2 - 1.3 mg/dL [facility] Calcium [Mass/Vol] 10.5 mg/dL High 8.5 - 10.2 mg/dL [facility] Chloride [Moles/Vol] 103 mmol/L 97 - 105 mmol/L [facility] CO2 [Moles/Vol] 24 mmol/L 22 - 30 mmol/L [facility] Creatinine [Mass/Vol] 1.33 mg/dL High 0.73 - 1.22 mg/dL [facility] Estimated Glomerular Filtration Rate 55 mL/min/1.73m Low >=60 mL/min/1.73m [facility] Glucose [Mass/Vol] 112 mg/dL High 74 - 99 mg/dL [facility] Potassium [Moles/Vol] 3.1 mmol/L Low 3.7 - 5.1 mmol/L [facility] Protein [Mass/Vol] 7.8 g/dL 6.3 - 8.0 g/dL [facility] Sodium [Moles/Vol] 139 mmol/L 136 - 144 mmol/L [facility] Urea nitrogen [Mass/Vol] 28 mg/dL High 9 - 24 mg/dL [facility] CBC W Auto Differential pane l (Bld)on 12-22-2022 Basophils (Bld) [#/Vol] <0.11 k/uL [facility] Basophils/100 WBC (Bld) 0.2 % [facility] Differential cell count method Nom (Bld) Auto [facility] Eosinophils (Bld) [#/Vol] 0.09 10*3/uL <0.46 k/uL [facility] Eosinophils/100 WBC (Bld) 1.0 % [facility] Erythrocyte distribution width (RBC) [Ratio] 14.7 % 11.5 - 15.0 % [facility] Hematocrit (Bld) [Volume fraction] 45.5 % 39.0 - 51.0 % [facility] Hemoglobin (Bld) [Mass/Vol] 15.2 g/dL 13.0 - 17.0 g/dL [facility] Immature granulocytes (Bld) [#/Vol] 0.10 10*3/uL High <0.10 k/uL [facility] Immature granulocytes/100 WBC (Bld) 1.1 % [facility] Lymphocytes (Bld) [#/Vol] 1.02 10*3/uL 1.00 - 4.00 k/uL [facility] Lymphocytes/100 WBC (Bld) 11.0 % [facility] MCH (RBC) [Entitic mass] 29.0 pg 26.0 - 34.[address] [facility] MCHC (RBC) [Mass/Vol] 33.4 g/dL 30.5 - 36.0 g/dL [facility] MCV (RBC) [Entitic vol] 86.7 fL 80.0 - 100.[address] [facility] Monocytes (Bld) [#/Vol] 0.74 10*3/uL <0.87 k/uL [facility] Monocytes/100 WBC (Bld) 8.0 % [facility] Neutrophils (Bld) [#/Vol] 7.31 10*3/uL 1.45 - 7.50 k/uL [facility] Neutrophils/100 WBC (Bld) 78.7 % [facility] Nucleated RBC (Bld) [#/Vol] <0.01 k/uL [facility] Nucleated RBC/100 WBC (Bld) [Ratio] 0.0 /[address] [facility] Platelet mean volume (Bld) [Entitic vol] 9.8 fL 9.0 - 12.[address] [facility] Platelets (Bld) [#/Vol] 166 10*3/uL 150 - 400 k/uL [facility] RBC (Bld) [#/Vol] 5.25 10*6/uL 4.20 - 6.00 m/uL [facility] WBC (Bld) [#/Vol] 9.28 10*3/uL 3.70 - 11.00 k/uL [facility] MRI PROSTATE WO/W IVCONon [facility] Urinalysis - AUTOMATEDon Appearance (U) CLEAR [employer] Other Bilirubin Ql (U) Negative [employer] Other Color (U) YELLOW [employer] Other Glucose Ql (U) Negative [employer] Other Hemoglobin Ql (U) TRACE INTACT [employer] Other Ketones Ql (U) Negative [employer] Other Leukocyte esterase Test strip Ql (U) Negative [employer] Other Nitrite Ql (U) Negative [employer] Other pH (U) 5.5 [pH] [employer] Other Protein Ql (U) 100 [employer] Other Specific gravity (U) [Rel density] 1.025 [employer] Other Urobilinogen (U) [Mass/Vol] 0.2 mg/dL [employer] Other Urinalysis - AUTOMATED [employer] Other Urine Cultureon 10-09-2022 Bacteria identified Cx Nom (U) [employer] Other PTH INTACTon 10-14-2021 PTH, Intact 25 pg/mL Normal 15-65 [facility] Comment on above: Performed By: #### PTHINT #### [facility] [address] [place] [address] Dr. Brenda Kline VIT D 25-OH LABCORPon 2021 Vitamin D, 25-Hydroxy 36.7 ng/mL Normal 30.0-100.0 [facility] Comment on above: Result Comment: Vitamin D deficiency has been defined by the [place] of Medicine and an Endocrine Society practice guideline as a level of serum 25-OH vitamin D less than 20 ng/mL (1,2). The Endocrine Society went on to further define vitamin D insufficiency as a level between 21 and 29 ng/mL (2). 1. IOM ([place] of Medicine). 2010. Dietary reference intakes for calcium and D. [place]: The National Academies Press. 2. Daniel MF, Tiarra CUADRA, Dago PERRY, et al. Evaluation, treatment, and prevention of vitamin D deficiency: an Endocrine Society clinical practice guideline. JCEM. 2010; 96(7):1911-30. Performed By: #### V ITADLC ####[facility] [id number] [place], [place] [address]FyDr. Brenda Kline HEMOGRAM AND PLATELon 2021 Hematocrit (Bld) [Volume fraction] 50.0 % Normal 42.0-54.0 [facility] Comment on above: Performed By: #### HH #### [facility] [address] [place] [address] [address] Brenda Kline Hemoglobin (Bld) [Mass/Vol] 16.3 g/dL Normal 14.0-18.0 [facility] Comment on above: Performed By: #### HH #### [facility] [address] [place] [address] [address] Brenda Kline MCH (RBC) [Entitic mass] 29.1 pg Normal 25.9-34.0 [facility] Comment on above: Performed By: #### HH #### [facility] [address] [place] [address] [address] Brenda Kline MCHC (RBC) [Mass/Vol] 32.6 g/dL Normal 29.9-35.2 [facility] Comment on above: Performed By: #### HH #### [facility] [address] [place] [address] [address] Brenda Kline MCV (RBC) [Entitic vol] 89.3 fL Normal 80.0-94.0 [facility] Comment on above: Performed By: #### HH #### [facility] [address] [place] [address] [address] Brenda Kline PLT 197 103/ul Normal 150-450 [facility] Comment on above: Performed By: #### HH #### [facility] [address] [place] [address] [address] Brenda Kline RBC 5.60 106/ul Normal 4.70-6.10 [facility] Comment on above: Performed By: #### HH #### [facility] [address] [place] [address] [address] Brenda Kline WBC 7.9 103/ul Normal 4.0-11.0 [facility] Comment on above: Performed By: #### HH #### [facility] [address] [address] [address] Brenda Kline MAGNESIUMon 10-13-2021 Magnesium [Mass/Vol] 2.1 mg/dL Normal 1.8-2.4 [facility] Comment on above: Performed By: #### RENAL, MG, URIC ####[facility] [address] [address]Dr. Brenda Kline RENAL FUNCTION PANELon 10-13 Albumin [Mass/Vol] 4.1 g/dL Normal 3.4-5.0 [facility] Comment on above: Performed By: #### RENAL, MG, URIC #### [facility] [address] [place] [address] Dr. Brenda Kline Calcium [Mass/Vol] 9.6 mg/dL Normal 8.5-10.1 [facility] Comment on above: Performed By: #### RENAL, MG, URIC #### [facility] [address] [place] [address] Dr. Brenda Kline Chloride [Moles/Vol] 103 mmol/L Normal 98-107 [facility] Comment on above: Performed By: #### RENAL, MG, URIC #### [facility] [address] [address] [address] Brenda Kline CO2 [Moles/Vol] 27.2 mmol/L Normal 21.0-32.0 [facility] Comment on above: Performed By: #### RENAL, MG, URIC #### [facility] [address] [place] [address] Dr. Brenda Kline Creatinine [Mass/Vol] 1.68 mg/dL Critically high 0.70-1.30 [facility] Comment on above: Performed By: #### RENAL, MG, URIC #### [facility] [address] [address] [address] Brenda Kline EGFR-AF ALBANIAN 49 mL/min/1.73m2 Critically low >=60 [facility] Comment on above: Performed By: #### RENAL, MG, URIC #### [facility] [address] [address] [address] Brenda Kline EGFR-NON AF [place]IAN 40 mL/min/1.73m2 Critically low >=60 [facility] Comment on above: Performed By: #### RENAL, MG, URIC #### [facility] [address] [place] [address] Dr. Brenda Kline Glucose [Mass/Vol] 125 mg/dL Critically high 74-106 [facility] Comment on above: Performed By: #### RENAL, MG, URIC #### [facility] [address] [place] [address] Dr. Brenda Kline Phosphate [Mass/Vol] 3.5 mg/dL Normal 2.6-4.7 [facility] Comment on above: Performed By: #### RENAL, MG, URIC #### [facility] [address] [place] [address] Dr. Brenda Kline Potassium [Moles/Vol] 4.1 mmol/L Normal 3.5-5.1 [facility] Comment on above: Performed By: #### RENAL, MG, URIC #### [facility] [address] [place] [address] Dr. Brenda Kline Sodium [Moles/Vol] 139 mmol/L Normal 136-145 [facility] Comment on above: Performed By: #### RENAL, MG, URIC #### [facility] [address] [place] [address] Dr. Brenda Kline Urea nitrogen [Mass/Vol] 25.0 mg/dL Critically high 7.0-18.0 [facility] Comment on above: Performed By: #### RENAL, MG, URIC #### [facility] [address] [place] [address] Dr. Brenda Kline UA RANDOM W/MICROSCOPICon BACTERIA NONE SEEN Normal NONE SEEN [facility] Comment on above: Performed By: #### UAMIC #### [facility] [address] [place] [address] Dr. Brenda Kline Bilirubin Ql (U) Negative Normal NEGATIVE [facility] Comment on above: Performed By: #### UAMIC #### [facility] [address] [place] [address] Dr. Brenda Kline CAST SEEN Abnormal NONE SEEN [facility] Comment on above: Performed By: #### UAMIC #### [facility] [address] [place] [address] Dr. Brenda Kline Clarity (U) CLEAR Normal CLEAR [facility] Comment on above: Performed By: #### UAMIC #### [facility] [address] [place] [address] Dr. Brenda Kline Color (U) YELLOW Normal YELLOW [facility] Comment on above: Performed By: #### UAMIC #### [facility] [address] [place] [address] Dr. Brenda Kline Crystals LM Nom (Urine sed) NONE SEEN Normal NONE SEEN [facility] Comment on above: Performed By: #### UAMIC #### [facility] [address] [place] [address] Dr. Brenda Kline Epithelial cells LM Ql (Urine sed) RARE Normal NONE SEEN /RARE [facility] Comment on above: Performed By: #### UAMIC #### [facility] [address] [place] [address] Dr. Brenda Kline Glucose Ql (U) Negative Normal NEGATIVE [facility] Comment on above: Performed By: #### UAMIC #### [facility] [address] [place] [address] Dr. Brenda Kline Hemoglobin Ql (U) Negative Normal NEGATIVE [facility] Comment on above: Performed By: #### UAMIC #### [facility] [address] [place] [address] Dr. Brenda Kline HYALINE CAST RARE Normal [facility] Comment on above: Performed By: #### UAMIC #### [facility] [address] [address] [address] Brenda Kline Ketones Ql (U) Negative Normal NEGATIVE [facility] Comment on above: Performed By: #### UAMIC #### [facility] [address] [place] [address] Dr. Brenda Kline LEUKOCYTES Negative Normal NEGATIVE [facility] Comment on above: Performed By: #### UAMIC #### [facility] [address] [place] [address] Dr. Brenda Kline MUCOUS TRACE Abnormal NONE SEEN [facility] Comment on above: Performed By: #### UAMIC #### [facility] [address] [place] [address] Dr. Brenda Kline Nitrite Ql (U) Negative Normal NEGATIVE [facility] Comment on above: Performed By: #### UAMIC #### [facility] [address] [place] [address] Dr. Brenda Kline pH (U) 5.5 [pH] Normal 5-9 [facility] Comment on above: Performed By: #### UAMIC #### [facility] [address] [place] [address] Dr. Brenda Kline RBC 0-2 Normal 0-2 [facility] Comment on above: Performed By: #### UAMIC #### [facility] [address] [place] [address] Dr. Brenda Kline SPEC GRAVITY 1.025 Normal 1.005-<=1.025 [facility] Comment on above: Performed By: #### UAMIC #### [facility] [address] [place] [address] Dr. Brenda Kline UA PROTEIN Negative Normal NEGATIVE/ TRACE [facility] Comment on above: Performed By: #### UAMIC #### [facility] [address] [place] [address] Dr. Brenda Kline Urobilinogen Qn (U) 0.2 {Cayden'U}/dL Normal 0.2 - 1.0 [facility] Comment on above: Performed By: #### UAMIC #### [facility] [address] [address] [address] Brenda Kline WBC 0-2 Abnormal NONE SEEN [facility] Comment on above: Performed By: #### UAMIC #### [facility] [address] [address] [address] Brenda Kline URIC ACID SERUMon 10-13-2021 Urate [Mass/Vol] 7.2 mg/dL Normal 3.5-7.2 [facility] Comment on above: Performed By: #### RENAL, MG, URIC #### [facility] [address] [address] [address] Brenda Kline URINE T PROTEIN CREAT RATIOo n 10-13-2021 Protein (U) [Mass/Vol] 29.0 mg/dL Critically high <=12.0 [facility] Comment on above: Performed By: #### URTPCR #### [facility] [address] [place] [address] Dr. Brenda Kline UR PROT CREAT RAT 0.14 Normal [facility] Comment on above: Performed By: #### URTPCR #### [facility] [address] [place] [address] Dr. Brenda Kline URINE CREAT 202.37 mg/dL Normal 20.00-300.00 [facility] Comment on above: Performed By: #### URTPCR #### [facility] [address] [place] [address] Dr. Brenda Kline US FINE NEEDLE ASP EXPon US FINE NEEDLE ASP EXP Begin Addendum #1 COLLECTED DATE/TIME: 08/16/2021 07:32 EDT Final Diagnosis Report for [facility], [place] (A-B) RIGHT GROIN MASS; FINE NEEDLE [...] 2. Pathology results are pending. Normal [facility] CREATININEon 07-20-2021 Creatinine [Mass/Vol] 1.65 mg/dL Critically high 0.70-1.30 [facility] Comment on above: Performed By: #### CREA ####[facility] [id number] [address]Dr. Brenda Kline EGFR-AF [place]IAN 50 mL/min/1.73m2 Critically low >=60 [facility] Comment on above: Performed By: #### CREA ####[facility] [id number] [address]Dr. Brenda Kline EGFR-NON AF [place] 41 mL/min/1.73m2 Critically low >=60 [facility] Comment on above: Performed By: #### CREA ####[facility] [id number] [address] Brenda Kline CT PELVIS W CONon 07-20-2021 [...] MIA PERSON Date: 2021-07-20 16:34 Normal [facility] US SINGLE QUAD RT LOWERon [...] MIA PERSON Date: 2021-07-09 17:23 Normal [facility] COVID Quick Testingon 2020 Result Negative Reds10 Other Vital Signs Date Time Vital Sign Value Performing Clinician Facility 06-04-2024 14:53-0400 Body mass index (BMI) [Ratio] 31.84 kg/m2 YOAN Kumari MD Work Phone: [facility] 06-04-2024 14:53-0400 Body temperature 97.2 [degF] YOAN Kumari MD Work Phone: [facility] 06-04-2024 14:53-0400 Body weight 118.6 kg YOAN Kumari MD Work Phone: [facility] 06-04-2024 14:53-0400 Heart rate 75 /min YOAN Kumari MD Work Phone: [facility] 06-04-2024 14:53-0400 Respiratory rate 16 /min YOAN Kumari MD Work Phone: [facility] 06-04-2024 14:53-0400 SaO2% (BldA) [Mass fraction] 94 % NA Jasmyne ROSARIO Work Phone: [facility] 05-20-2024 13:58-0400 Body mass index (BMI) [Ratio] 31.65 kg/m2 Minoo Jena HANDLE ASSEMBLER.[employer]KEIN S[employer] Work Phone: [facility] 05-20-2024 13:58-0400 Body temperature 97.59 [degF] Minoo Jena HANDLE ASSEMBLER.[employer]KEIN SPO[employer] Work Phone: [facility] 05-20-2024 13:58-0400 Body weight 117.9 kg Minoo Jena HANDLE ASSEMBLER.[employer]KEIN SPOOLER Work Phone: [facility] 05-20-2024 13:58-0400 Diastolic blood pressure 72 mm[Hg] Minoo Jena HANDLE ASSEMBLER.[employer]KEIN SPOOLER Work Phone: [facility] 05-20-2024 13:58-0400 Heart rate 79 /min Minoo Jena HANDLE ASSEMBLER.[employer]KEIN SPOOLER Work Phone: [facility] 05-20-2024 13:58-0400 Respiratory rate 16 /min Minoo Jena HANDLE ASSEMBLER.SKEIN SPOOLER Work Phone: [facility] 05-20-2024 13:58-0400 SaO2% (BldA) [Mass fraction] 97 % Minoo Jena HANDLE ASSEMBLER.[employer]KEIN SPOOLER Work Phone: [facility] 05-20-2024 13:58-0400 Systolic blood pressure 120 mm[Hg] Minoo Jena HANDLE ASSEMBLER.SKEIN SPOOLER Work Phone: [facility] 03-04-2024 09:49-0500 Diastolic blood pressure 74 mm[Hg] Yosef GRIMES [facility] 03-04-2024 09:49-0500 Heart rate 67 /min Yosef GRIMES [facility] 03-04-2024 09:49-0500 Respiratory rate 16 /min Yosef GRIMES [facility] 03-04-2024 09:49-0500 Systolic blood pressure 142 mm[Hg] Yosef GRIMES [facility] 01-23-2024 12:46-0500 Diastolic blood pressure 79 mm[Hg] Meño Bob [facility] 01-23-2024 12:46-0500 Heart rate 85 /min Meño Bob [facility] 01-23-2024 12:46-0500 Respiratory rate 16 /min Meño Bob [facility] 01-23-2024 12:46-0500 SaO2% (BldA) [Mass fraction] 95 % Meño Bob [facility] 01-23-2024 12:46-0500 Systolic blood pressure 120 mm[Hg] Meño Bob [facility] 01-10-2024 12:49-0500 Blood Pressure Location Yosef GRIMES [facility] 01-10-2024 12:49-0500 Body temperature 98.6 [degF] Yosef GRIMES [facility] 01-10-2024 12:49-0500 Diastolic blood pressure 83 mm[Hg] Yosef GRIMES [facility] 01-10-2024 12:49-0500 Heart rate 89 /min Yosef GRIMES [facility] 01-10-2024 12:49-0500 Respiratory rate 17 /min Yosef GRIMES [facility] 01-10-2024 12:49-0500 Systolic blood pressure 126 mm[Hg] Yosef GRIMES [facility] 01-08-2024 08:56-0500 Blood Pressure Location Yosef GRIMES [facility] 01-08-2024 08:56-0500 Body temperature 98.6 [degF] Yosef GRIMES [facility] 01-08-2024 08:56-0500 Diastolic blood pressure 83 mm[Hg] Yosef GRIMES [facility] 01-08-2024 08:56-0500 Heart rate 70 /min Yosef GRIMES [facility] 01-08-2024 08:56-0500 Respiratory rate 18 /min Yosef GRIMES [facility] 01-08-2024 08:56-0500 Systolic blood pressure 137 mm[Hg] Yosef GRIMES [facility] 11-24-2023 11:48-0400 Blood Pressure Location Yosef GRIMES [facility] 11-24-2023 11:48-0400 Body temperature 98.6 [degF] Yosef GRIMES [facility] 11-24-2023 11:48-0400 Diastolic blood pressure 86 mm[Hg] Yosef GRIMES [facility] 11-24-2023 11:48-0400 Heart rate 68 /min Yosef GRIMES [facility] 11-24-2023 11:48-0400 Respiratory rate 16 /min Yosef GRIMES [facility] 11-24-2023 11:48-0400 Systolic blood pressure 134 mm[Hg] Yosef GRIMES [facility] 11-16-2023 14:59-0400 Body height 193 cm Nicolas Hwang MD Work Phone: [facility] 11-16-2023 14:59-0400 Body mass index (BMI) [Ratio] 31.81 kg/m2 Nicolas Hwang MD Work Phone: [facility] 11-16-2023 14:59-0400 Body temperature 96.69 [degF] Nicolas Hwang MD Work Phone: [facility] 11-16-2023 14:59-0400 Body weight 118.5 kg Nicolas Hwang MD Work Phone: [facility] 11-16-2023 14:59-0400 Diastolic blood pressure 73 mm[Hg] Nicolas Hwang MD Work Phone: [facility] 11-16-2023 14:59-0400 Heart rate 93 /min Nicolas Hwang MD Work Phone: [facility] 11-16-2023 14:59-0400 Respiratory rate 18 /min Nicolas Hwang MD Work Phone: [facility] 11-16-2023 14:59-0400 SaO2% (BldA) [Mass fraction] 94 % Nicolas Hwang MD Work Phone: [facility] 11-16-2023 14:59-0400 Systolic blood pressure 124 mm[Hg] Nicolas Hwang MD Work Phone: [facility] 11-16-2023 14:13-0400 Body mass index (BMI) [Ratio] 31.84 kg/m2 YOAN Kumari MD Work Phone: [facility] 11-16-2023 14:13-0400 Body temperature 96.69 [degF] YOAN Kumari MD Work Phone: [facility] 11-16-2023 14:13-0400 Body weight 118.6 kg YOAN Kumari MD Work Phone: [facility] 11-16-2023 14:13-0400 Diastolic blood pressure 73 mm[Hg] YOAN Kumari MD Work Phone: [facility] 11-16-2023 14:13-0400 Heart rate 93 /min YOAN Kumari MD Work Phone: [facility] 11-16-2023 14:13-0400 Respiratory rate 18 /min YOAN Kumari MD Work Phone: [facility] 11-16-2023 14:13-0400 SaO2% (BldA) [Mass fraction] 94 % YOAN Kumari MD Work Phone: [facility] 11-16-2023 14:13-0400 Systolic blood pressure 124 mm[Hg] YOAN Kumari MD Work Phone: [facility] 05-22-2023 11:20-0400 Blood Pressure Location Yosef GRIMES [facility] 05-22-2023 11:20-0400 Body temperature 98.42 [degF] Yosef GRIMES [facility] 05-22-2023 11:20-0400 Diastolic blood pressure 85 mm[Hg] Yosef GRIMES [facility] 05-22-2023 11:20-0400 Heart rate 81 /min Yosef GRIMES [facility] 05-22-2023 11:20-0400 Respiratory rate 16 /min Yosef GRIMES [facility] 05-22-2023 11:20-0400 Systolic blood pressure 118 mm[Hg] Yosef GRIMES [facility] 05-18-2023 13:16-0400 Body temperature 97 [degF] Elio Payne HANDLE ASSEMBLER.SKEIN SPOOLER Work Phone: [facility] 05-18-2023 13:16-0400 Body weight 115.8 kg Elio Payne HANDLE ASSEMBLER.SKEIN SPOOLER Work Phone: [facility] 05-18-2023 13:16-0400 Diastolic blood pressure 74 mm[Hg] Elio Payne HANDLE ASSEMBLER.SKEIN SPOOLER Work Phone: [facility] 05-18-2023 13:16-0400 Heart rate 84 /min Elio Payne APRN.SKEIN SPOOLER Work Phone: [facility] 05-18-2023 13:16-0400 Respiratory rate 18 /min Elio Payne APRN.SKEIN SPOOLER Work Phone: [facility] 05-18-2023 13:16-0400 SaO2% (BldA) [Mass fraction] 94 % Elio Payne HANDLE ASSEMBLER.SKEIN SPOOLER Work Phone: [facility] 05-18-2023 13:16-0400 Systolic blood pressure 144 mm[Hg] Elio Payne HANDLE ASSEMBLER.SKEIN SPOOLER Work Phone: [facility] 01-16-2023 12:20-0500 Body temperature 97.39 [degF] YOAN Kumari MD Work Phone: [facility] 01-16-2023 12:20-0500 Body weight 109.32 kg YOAN Kumari MD Work Phone: [facility] 01-16-2023 12:20-0500 Diastolic blood pressure 74 mm[Hg] YOAN Kumari MD Work Phone: [facility] 01-16-2023 12:20-0500 Heart rate 66 /min YOAN Kumari MD Work Phone: [facility] 01-16-2023 12:20-0500 Respiratory rate 18 /min YOAN Kumari MD Work Phone: [facility] 01-16-2023 12:20-0500 SaO2% (BldA) [Mass fraction] 96 % YOAN Kumari MD Work Phone: [facility] 01-16-2023 12:20-0500 Systolic blood pressure 114 mm[Hg] YOAN Kumari MD Work Phone: [facility] 01-05-2023 12:45-0500 Body height 193 cm Nicolas Hwang MD Work Phone: [facility] 01-05-2023 12:45-0500 Body temperature 97 [degF] Nicolas Hwang MD Work Phone: [facility] 01-05-2023 12:45-0500 Body weight 109.77 kg Nicolas Hwang MD Work Phone: [facility] 01-05-2023 12:45-0500 Diastolic blood pressure 70 mm[Hg] Nicolas Hwang MD Work Phone: [facility] 01-05-2023 12:45-0500 Heart rate 60 /min Nicolas Hwang MD Work Phone: [facility] 01-05-2023 12:45-0500 Respiratory rate 16 /min Nicolas Hwang MD Work Phone: [facility] 01-05-2023 12:45-0500 SaO2% (BldA) [Mass fraction] 94 % Nicolas Hwang MD Work Phone: [facility] 01-05-2023 12:45-0500 Systolic blood pressure 124 mm[Hg] Nicolas Hwang MD Work Phone: [facility] 01-02-2023 12:22-0500 Body temperature 97.59 [degF] YOAN Kumari MD Work Phone: [facility] 01-02-2023 12:22-0500 Body weight 110.13 kg YOAN Kumari MD Work Phone: [facility] 01-02-2023 12:22-0500 Diastolic blood pressure 75 mm[Hg] YOAN Kumari MD Work Phone: [facility] 01-02-2023 12:22-0500 Heart rate 59 /min YOAN Kumari MD Work Phone: [facility] 01-02-2023 12:22-0500 Respiratory rate 16 /min YOAN Kumari MD Work Phone: [facility] 01-02-2023 12:22-0500 SaO2% (BldA) [Mass fraction] 96 % YOAN Kumari MD Work Phone: [facility] 01-02-2023 12:22-0500 Systolic blood pressure 112 mm[Hg] YOAN Kumari MD Work Phone: [facility] 12-26-2022 12:09-0500 Body temperature 96.91 [degF] YOAN Kumari MD Work Phone: [facility] 12-26-2022 12:09-0500 Body weight 111.04 kg YOAN Kumari MD Work Phone: [facility] 12-26-2022 12:09-0500 Diastolic blood pressure 75 mm[Hg] YOAN Kumari MD Work Phone: [facility] 12-26-2022 12:09-0500 Heart rate 66 /min YOAN Kumari MD Work Phone: [facility] 12-26-2022 12:09-0500 Respiratory rate 16 /min YOAN Kumari MD Work Phone: [facility] 12-26-2022 12:09-0500 SaO2% (BldA) [Mass fraction] 95 % YOAN Kumari MD Work Phone: [facility] 12-26-2022 12:09-0500 Systolic blood pressure 116 mm[Hg] YOAN Kumari MD Work Phone: [facility] 12-19-2022 12:17-0500 Body temperature 97 [degF] YOAN Kumari MD Work Phone: [facility] 12-19-2022 12:17-0500 Body weight 111.04 kg YOAN Kumari MD Work Phone: [facility] 12-19-2022 12:17-0500 Diastolic blood pressure 68 mm[Hg] YOAN Kumari MD Work Phone: [facility] 12-19-2022 12:17-0500 Heart rate 81 /min YOAN Kumari MD Work Phone: [facility] 12-19-2022 12:17-0500 Respiratory rate 16 /min YOAN Kumari MD Work Phone: [facility] 12-19-2022 12:17-0500 SaO2% (BldA) [Mass fraction] 99 % YOAN Kumari MD Work Phone: [facility] 12-19-2022 12:17-0500 Systolic blood pressure 115 mm[Hg] YOAN Kumari MD Work Phone: [facility] 12-14-2022 10:57-0500 Body temperature 97 [degF] YOAN Kumari MD Work Phone: [facility] 12-14-2022 10:57-0500 Body weight 109.77 kg YOAN Kumari MD Work Phone: [facility] 12-14-2022 10:57-0500 Diastolic blood pressure 76 mm[Hg] YOAN Kumari MD Work Phone: [facility] 12-14-2022 10:57-0500 Heart rate 59 /min YOAN Kumari MD Work Phone: [facility] 12-14-2022 10:57-0500 Respiratory rate 16 /min YOAN Kumari MD Work Phone: [facility] 11-08-2023 10:57-0500 SaO2% (BldA) [Mass fraction] 96 % YOAN Kumari MD Work Phone: [facility] 12-14-2022 10:57-0500 Systolic blood pressure 125 mm[Hg] YOAN Kumari MD Work Phone: [facility] 12-02-2022 12:15-0400 Blood Pressure Location Yosef GRIMES [facility] 12-02-2022 12:15-0400 Diastolic blood pressure 74 mm[Hg] Yosef GRIMES [facility] 12-02-2022 12:15-0400 Heart rate 68 /min Yosef GRIMES [facility] 12-02-2022 12:15-0400 Systolic blood pressure 129 mm[Hg] Yosef GRIMES [facility] 11-18-2022 11:18-0400 Blood Pressure Location Yosef GRIMES [facility] [facility] 11-18-2022 11:18-0400 Diastolic blood pressure 70 mm[Hg] Yosef GRIEMS [facility] 11-18-2022 11:18-0400 Heart rate 68 /min Yosef GRIMES [facility] 11-18-2022 11:18-0400 Respiratory rate 16 /min Yosef GRIMES [facility] 11-18-2022 11:18-0400 Systolic blood pressure 128 mm[Hg] Yosef GRIMES [facility] 11-15-2022 08:47-0400 Body temperature 97.59 [degF] YOAN Kumari MD Work Phone: [facility] 11-15-2022 08:47-0400 Body weight 112.49 kg YOAN Kumari MD Work Phone: [facility] 11-15-2022 08:47-0400 Diastolic blood pressure 78 mm[Hg] YOAN Kumari MD Work Phone: [facility] 11-15-2022 08:47-0400 Heart rate 57 /min YOAN Kumari MD Work Phone: [facility] 11-15-2022 08:47-0400 Respiratory rate 20 /min YOAN Kumari MD Work Phone: [facility] 11-15-2022 08:47-0400 SaO2% (BldA) [Mass fraction] 96 % YOAN Kumari MD Work Phone: [facility] 11-15-2022 08:47-0400 Systolic blood pressure 127 mm[Hg] YOAN Kumari MD Work Phone: [facility] 10-09-2022 10:45-0400 Body height 193.04 cm Angelina Holder Other [facility] Other 10-09-2022 10:45-0400 Body mass index (BMI) [Ratio] 30.59 kg/m2 Angelina Holder Other [facility] Other 10-09-2022 10:45-0400 Body temperature 98.3 [degF] Angelina Holder Other [facility] Other 10-09-2022 10:45-0400 Body weight 113.99 kg Angelina Holder Other [facility] Other 10-09-2022 10:45-0400 Diastolic blood pressure 68 mm[Hg] Angelina Holder Other [facility] Other 10-09-2022 10:45-0400 Respiratory rate 16 /min Angelina Holder Other [facility] Other 10-09-2022 10:45-0400 SaO2% (BldA) [Mass fraction] 96 % Angelina Holder Other [facility] Other 10-09-2022 10:45-0400 Systolic blood pressure 110 mm[Hg] Angelina Holder Other [facility] Other 10-03-2022 13:53-0400 Blood Pressure Location Yosef GRIMES [facility] 10-03-2022 13:53-0400 Diastolic blood pressure 70 mm[Hg] Yosef GRIMES [facility] 10-03-2022 13:53-0400 Heart rate 80 /min Yosef GRIMES [facility] 10-03-2022 13:53-0400 Respiratory rate 16 /min Yosef GRIMES [facility] 10-03-2022 13:53-0400 Systolic blood pressure 130 mm[Hg] Yosef GRIMES [facility] 06-02-2022 14:00-0400 Body height 193 cm Elio Payne APRN.SKEIN SPOOLER Work Phone: [facility] 06-02-2022 14:00-0400 Body temperature 97.81 [degF] Elio Payne APRN.SKEIN SPOOLER Work Phone: [facility] 06-02-2022 14:00-0400 Body weight 118.03 kg Elio Payne APRN.SKEIN SPOOLER Work Phone: [facility] 06-02-2022 14:00-0400 Diastolic blood pressure 63 mm[Hg] Elio Payne HANDLE ASSEMBLER.SKEIN SPOOLER Work Phone: [facility] 06-02-2022 14:00-0400 Heart rate 77 /min Elio Payne HANDLE ASSEMBLER.SKEIN SPOOLER Work Phone: [facility] 06-02-2022 14:00-0400 Respiratory rate 18 /min Elio Payne HANDLE ASSEMBLER.SKEIN SPOOLER Work Phone: [facility] 06-02-2022 14:00-0400 SaO2% (BldA) [Mass fraction] 93 % Elio Payne HANDLE ASSEMBLER.SKEIN SPOOLER Work Phone: [facility] 06-02-2022 14:00-0400 Systolic blood pressure 118 mm[Hg] Elio Payne HANDLE ASSEMBLER.SKEIN SPOOLER Work Phone: [facility] 11-02-2021 12:50-0400 Body height 193 cm Nicolas Hwang MD Work Phone: [facility] 11-02-2021 12:50-0400 Body temperature 97.7 [degF] Nicolas Hwang MD Work Phone: [facility] 11-02-2021 12:50-0400 Body weight 119.39 kg Nicolas Hwang MD Work Phone: [facility] 11-02-2021 12:50-0400 Diastolic blood pressure 77 mm[Hg] Nicolas Hwang MD Work Phone: [facility] 11-02-2021 12:50-0400 Heart rate 72 /min Nicolas Hwang MD Work Phone: [facility] 11-02-2021 12:50-0400 Respiratory rate 18 /min Nicolas Hwang MD Work Phone: [facility] 11-02-2021 12:50-0400 SaO2% (BldA) [Mass fraction] 94 % Nicolas Hwang MD Work Phone: [facility] 11-02-2021 12:50-0400 Systolic blood pressure 140 mm[Hg] Nicolas Hwang MD Work Phone: [facility] 09-27-2021 10:00-0400 Blood Pressure Location Yosef GRIMES [facility] 09-27-2021 10:00-0400 Diastolic blood pressure 79 mm[Hg] Yosef GRIMES [facility] 09-27-2021 10:00-0400 Heart rate 67 /min Yosef GRIMES [facility] 09-27-2021 10:00-0400 Respiratory rate 16 /min Yosef GRIMES [facility] 09-27-2021 10:00-0400 Systolic blood pressure 114 mm[Hg] Yosef GRIMES [facility] 11-13-2020 13:45-0400 Body height 193.04 cm Azucena Ginty Other [facility] Other 11-13-2020 13:45-0400 Body mass index (BMI) [Ratio] 32.25 kg/m2 Azucena Ginty Other [facility] Other 11-13-2020 13:45-0400 Body temperature 96.4 [degF] Azucena Ginty Other [facility] Other 11-13-2020 13:45-0400 Body weight 120.2 kg Azucena Ginty Other [facility] Other 11-13-2020 13:45-0793 SaO2% (BldA) [Mass fraction] 99 % Azucena Hui Other [facility] Other Encounters Encounter Date Encounter Type Care Provider Facility Start: 09-25-2025 [facility] Start: 11-15-2024 ambulatory Yosef GRIMES Facili ty:[facility] Start: 10-23-2024 ambulatory Ramila Peralta Facility:[facility] Start: 10-14-2024 ambulatory IFEANYI BETH Facili ty:[facility] Start: 09-26-2024 End: 09-26-2024 ambulatory Shilpa L Parvez Facility:[facility] Start: 06-04-2024 End: 06-04-2024 Office outpatient visit 15 minutes David Kumari MD Work Phone: Radiation Oncology Comment on above: Malignant neoplasm o f prostate (HCC) (Primary Dx) Start: 06-04-2024 End: 06-04-2024 ambulatory David KUMARI Facility:[facility] Start: 05-20-2024 End: 05-20-2024 Office outpatient visit 25 minutes Minoo Gill APRN.CNP Work Phone: Hematology/Oncology Comment on above: Monoclonal gammopath y (Primary Dx); Prostate cancer (HCC); Chronic renal insufficiency, stage 3 (moderate) (HCC) Start: 05-20-2024 End: 05-20-2024 ambulatory MINOO GILL Facility:[facility] Start: 05-16-2024 End: 05-29-2024 Telephone encounter Nicolas [facility]wang [facility] Start: 05-15-2024 End: 05-15-2024 ambulatory SHAHRIAR STEPHENSON Facility:[facility] Start: 05-07-2024 End: 05-07-2024 ambulatory SHAHRIAR STEPHENSON Facility:[facility] Start: 05-07-2024 End: 05-07-2024 Subsequent hospital visit by physician General Joseph aGrcia Work Phone: Radiology Start: 03-04-2024 End: 03-04-2024 ambulatory Yosefgutierrez GRIMES Facility:[facility] Start: 03-04-2024 End: 03-04-2024 Patient encounter procedure Yosefgutierrez GRIMES [facility] Start: 02-28-2024 End: 02-28-2024 ambulatory Yosefgutierrez GRIMES Facility: [place] Start: 02-28-2024 End: 02-28-2024 Patient encounter procedure Yosefgutierrez GRIMES [facility] Start: 02-22-2024 End: 02-22-2024 ambulatory Yosef Grimes [facility] Work Phone: Start: 02-22-2024 End: 02-22-2024 Departed Referred Yosef Grimes MD Work Phone: [facility] Start: 02-22-2024 End: 02-22-2024 ambulatory Yosef R GRIMES Facility:[id number] Start: 01-30-2024 End: 01-30-2024 ambulatory Meño Bob [facility] Start: 01-30-2024 End: 01-30-2024 Patient encounter procedure Meño Bob [facility] Start: 01-26-2024 ambulatory Yosefgutierrez GRIMES Facili ty:[facility] Start: 01-23-2024 End: 01-23-2024 ambulatory Meño Bob [facility] Start: 01-23-2024 End: 01-23-2024 Patient encounter procedure Meño Bob [facility] Start: 01-19-2024 End: 01-19-2024 ambulatory YOSEF GRIMES Facility:[facility] Start: 01-19-2024 End: 01-19-2024 Subsequent hospital visit by physician Arrival Time Radiology Work Phone: Radiology Pet CT Start: 01-13-2024 Non-patient / Non-visit Mateusz Grimes MD Work Phone: [facility] Work Phone: Start: 01-10-2024 End: 01-10-2024 ambulatory Yosef GRIMES Facility:[facility] Start: 01-10-2024 End: 01-10-2024 Patient encounter procedure Yosef GRIMES [facility] Start: 01-08-2024 End: 01-08-2024 ambulatory Yosef GRIMES Facility[facility] Start: 01-08-2024 End: 01-08-2024 Lab Drop off Yosef GRIMES [facility] Start: 01-08-2024 End: 01-08-2024 ambulatory Yosef GRIMES Facility:[facility] Start: 01-08-2024 End: 01-08-2024 Patient encounter procedure Yosef GRIMES [facility] Start: 01-01-2024 End: 01-01-2024 Lab Drop off Yosef GRIMES [facility] Start: 01-01-2024 End: 01-01-2024 ambulatory Yosef GRIMES [facility] Start: 01-01-2024 End: 01-01-2024 Patient encounter procedure Yosef GRIMES [facility] Start: 12-29-2023 End: 01-01-2024 Telephone encounter David Kumari MD Work Phone: Radiation Oncology Comment on above: Hematuria Start: 11-24-2023 End: 11-24-2023 ambulatory Yosef GRIMES Facility:[facility] [place] Start: 11-24-2023 End: 11-24-2023 Patient encounter procedure Yosef R CORNELIO [facility] Start: 11-16-2023 End: 11-16-2023 ambulatory Nicolas Hwang MD Work Phone: Hematology/Oncology Comment on above: Prostate cancer (HCC ) (Primary Dx); Monoclonal gammopathy Start: 11-16-2023 End: 11-16-2023 Patient encounter procedure Nicolas Hwang MD Work Phone: Hematology/Oncology Comment on above: Malignant neoplasm o f prostate (HCC) (Primary Dx) Start: 11-09-2023 End: 11-09-2023 ambulatory SHAHRIAR STEPHENSON Facility:[facility] Start: 10-23-2023 End: 10-23-2023 ambulatory GAME AGENT Shilpa L Parvez Facility:[facility] Start: 09-27-2023 End: 09-27-2023 ambulatory GAME AGENT Shilpa L Parvez Facility:[facility] Start: 05-22-2023 End: 05-22-2023 ambulatory Yosef GRIMES Facility:[facility] Start: 05-22-2023 End: 05-22-2023 Patient encounter procedure Yosef R CORNELIO [facility] Start: 05-18-2023 End: 05-18-2023 ambulatory Elio Payne APRN.SKEIN SPOOLER Work Phone: Hematology/Oncology Comment on above: Prostate cancer (HCC ) (Primary Dx); Monoclonal gammopathy; Chronic renal insufficiency, stage 3 (moderate) (HCC); Essential hypertension Start: 05-18-2023 End: 05-18-2023 Patient encounter procedure Elio Payne APRN.SKEIN SPOOLER Work Phone: [facility] Comment on above: Malignant neoplasm o f prostate (HCC) (Primary Dx) Start: 05-10-2023 Telephone encounter Elio Ferrer jone HILARY Work Phone: Hematology/Oncology Comment on above: Lab [...] Dx) Start: 01-16-2023 End: 01-16-2023 Refill Rose Mike [facility] Work Phone: Hematology/Oncology Comment on above: Refill Request Secondary hyperparat hyroidism (HCC) (Primary Dx); Platelets decreased (HCC) Start: 01-11-2023 Patient encounter procedure David Kumari MD Work Phone: [facility] Start: 01-11-2023 Radiation Oncology Note David Kumari [...] End: 12-22-2022 Patient encounter procedure Lab/[facility] Jose Work Phone: Radiation Oncology Comment on above: Malignant neoplasm o f prostate (HCC) Start: 12-19-2022 Telephone encounter David Kumari MD Work Phone: Cancer [facility] Comment on above: Appointment Confirma [...] Yosef GRIMES [facility] Start: 12-01-2022 ambulatory 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 Department Start: 11-18-2022 End: 11-18-2022 Patient encounter procedure Yosef GRIMES [facility] Start: 11-15-2022 End: 11-15-2022 Patient encounter procedure David Kumari MD Work Phone: Radiation Oncology Comment on above: Malignant neoplasm o f prostate (HCC) (Primary Dx) Start: 11-01-2022 End: 11-01-2022 Lab Drop off Yosef GRIMES [facility] Start: 10-28-2022 End: 10-28-2022 Subsequent hospital visit by physician Arrival Time Radiology Work Phone: Radiology Pet CT Comment on above: Rising PSA following treatment for malignant neoplasm of prostate [R97.21] Start: 10-09-2022 Office outpatient vi sit 15 minutes Angelina Holder [facility] [place] Start: 10-09-2022 End: 10-09-2022 ambulatory Angelina Holder Other [facility] Other Start: 10-09-2022 End: 10-09-2022 Departed Referred BED LASTER-C Angelina Glory Work Phone: [facility] [place] Work Phone: Start: 10-06-2022 Telephone encounter Nicolas schneider MD Work [facility]: [facility] Comment on above: Nm Pet Request Start: 10-03-2022 End: 10-03-2022 Patient encounter procedure Yosef GRIMES [facility] Start: 06-02-2022 End: 06-02-2022 ambulatory Elio Payne APRN.SKEIN SPOOLER Work Phone: Hematology/Oncology Comment on above: Monoclonal gammopath y (Primary Dx); Prostate cancer (HCC); Essential hypertension; Chronic renal insufficiency, stage 3 (moderate) (HCC) Start: 06-02-2022 End: 06-02-2022 Patient encounter procedure Elio Payne APRN.SKEIN SPOOLER Work Phone: [facility] Start: 11-08-2021 Telephone encounter [...] Yosef GRIMES [facility] Start: 09-14-2021 End: 09-15-[address] YOSEF GRIMES Facility:[facility] Start: 08-16-2021 End: 08-16-[address] GURMEET CHANEL Facility:[facility] Start: 08-02-2021 Telephone encounter Nicolas schneider MD Work Phone: Cancer [facility] Comment on above: Call Back 48 Hours Start: 07-20-2021 End: 07-21-[address] GURMEET CHANEL Facility:[facility] Start: 07-09-2021 End: 07-10-[address] GURMEET CHANEL Facility:[facility] Start: 05-14-2021 Telephone encounter Pretty Aparicio RN Hematology/Oncology Comment on above: Results Start: 05-05-2021 Telephone encounter Nicolas schneiedr MD Work Phone: Hematology/Oncology Comment on above: Lab Orders Start: 11-13-2020 Office outpatient vi sit 15 minutes Azucena Ginty [facility] Start: 10-18-2019 End: 10-18-2019 Patient encounter procedure External Provider [facility] inic Start: 10-18-2019 Results Only External Provider [...] above: Performed By: #### P SAD #### [facility] [address] [place] [address] Dr. Brenda Kline Start: 05-10-2021 Adult depression scr eening assessment Pretty Aparicio RN Start: 10-29-2020 Adult depression scr eening assessment Nicolas Hwang MD Work Phone: Start: 10-18-2019 EXTERNAL LAB External P svitlana Start: 01-07-2016 Radical retropubic prostatectomy with bilateral pelvic lymphadenectomy Yosef GRIMES Start: 11-03-2015 Transrectal biopsy o f prostate using ultrasound guidance Yosef GRIMES Start: 02-06-2015 Colonoscopy Yosef SAVAGE Start: 02-07-2012 End: 02-07-2012 Colonoscopy Nicolas Hwang MD Work Phone: Start: 02-07-2012 Colonoscopy Yosef COLIN SAVAGE Plan of Treatment Date Care Activity Detail Author Start: 05-16-2027 Diabetes Screening [facility] Start: 11-15-2026 [facility] Start: 05-17-2026 [facility] Start: 01-19-2026 [facility] Start: 01-05-2026 [facility] Start: 12-08-2025 [facility] Start: 06-02-2025 DIABETES SCREEN DIABETES SCREEN [facility] Start: 06-02-2025 [facility] Start: 11-13-2024 End: 11-13-2024 Follow-up encounter 11/13/2024 1:30 PM EDT Visit (SP) Office Hematology/Oncology [facility] [place] [address] Minoo Gill APRN.SKEIN SPOOLER [address] [place] [address] 6 month follow up with lab Hematology/Oncology Comment on above: 6 month follow up [facility] Start: 11-13-2024 End: 11-13-2024 Patient encounter procedure [facility] Comment on above: 6 month follow up [facility] Start: 11-12-2024 End: 02-11-2025 Prostate specific Ag [Mass/volume] in Serum or Plasma PROSTATE-SPECIFIC ANTIGEN DIAGNOSTIC Lab Routine Malignant neoplasm of prostate (HCC) Expected: 11/12/2024, Expires: 02/11/2025 [facility] Work Phone: Comment on above: Expected: 11/12/2024 , Expires: 02/11/2025 Start: 11-12-2024 End: 11-12-2024 Patient encounter procedure 11/12/2024 9:00 AM EDT Office Visit [facility] [address] [place] [address] 6 month follow up with lab [facility] Comment on above: 6 month follow up [facility] Start: 11-02-2024 DIABETES SCREEN DIABETES SCREEN [facility] Start: 10-24-2024 ambulatory Ambulatory Facility:[facility] Start: 06-04-2024 End: 06-04-2024 Patient encounter procedure 06/04/2024 3:00 PM EDT Office Visit Radiation Oncology [address] [place] [address] David Kumari MD [address] [place] [address] 6 month follow up Radiation Oncology Comment on above: 6 month follow up Start: 05-20-2024 ambulatory Ambulatory Facility:[facility] Start: 05-16-2024 End: 08-15-2024 Prostate specific Ag [Mass/volume] in Serum or Plasma PROSTATE-SPECIFIC ANTIGEN DIAGNOSTIC Lab Routine Malignant neoplasm of prostate (HCC) Expected: 05/16/2024 (Approximate), Expires: 08/15/2024 [facility] Work Phone: Comment on above: Expected: 05/16/2024 (Approximate), Expires: 08/15/2024 Start: 05-16-2024 End: 05-16-2024 Follow-up encounter 05/16/2024 11:40 AM EDT Visit (SP) Office Hematology/Oncology [address] [place] [address] Nicolas Hwang MD [address] [place] [address] 6 month follow up Hematology/Oncology Comment on above: 6 month follow up Start: 05-16-2024 End: 05-16-2024 Patient encounter procedure 05/16/2024 11:00 AM EDT Office Visit Radiation Oncology [address] [place] [address] David Kumari MD [address] [place] [address] Moved from 05/14 Radiation Oncology Comment on above: Moved from 05/14 Start: 05-14-2024 End: 05-14-2024 Follow-up encounter 05/14/2024 2:00 PM EDT Visit (SP) Office Hematology/Oncology [address] [place] [address] Nicolas Hwang MD [address] [place] [address] 6 month follow up Hematology/Oncology Comment on above: 6 month follow up Start: 05-14-2024 End: 05-14-2024 Patient encounter procedure 05/14/2024 1:00 PM EDT Office Visit Radiation Oncology [address] [place] [address] David Kumari MD [address] [place] [address] 6 month follow up Radiation Oncology Comment on above: 6 month follow up Start: 05-10-2024 DIABETES SCREEN DIABETES SCREEN [facility] Start: 05-07-2024 End: 05-07-2024 Patient encounter procedure 05/07/2024 1:00 PM EDT Office Visit [facility] [address] [place] [address] lab [facility] Comment on above: lab Start: 02-07-2024 Advance Directive Discussion Advance Directive Discussion [facility] Start: 11-17-2023 End: 02-16-2024 Prostate specific Ag [Mass/volume] in Serum or Plasma PROSTATE-SPECIFIC ANTIGEN DIAGNOSTIC Lab Routine Malignant neoplasm of prostate (HCC) Expected: 11/17/2023 (Approximate), Expires: 02/16/2024 [facility] Work Phone: Comment on above: Expected: 11/17/2023 (Approximate), Expires: 02/16/2024 Start: 11-16-2023 End: 11-16-2023 Follow-up encounter 11/16/2023 3:00 PM EDT Visit (SP) Office Hematology/Oncology [address] [place] [address] Nicolas Hwang MD [address] [place] [address] 6 month follow up lab Hematology/Oncology Comment on above: 6 month follow up la b Start: 11-16-2023 End: 11-16-2023 Patient encounter procedure 11/16/2023 2:15 PM EDT Office Visit Radiation Oncology [address] [place] [address] David Kumari MD [address] [place] [address] Followup Radiation Oncology Comment on above: Followup Start: 11-16-2023 End: 02-15-2024 MONOCLONAL PROTEIN, SERUM (BLOOD) [facility] Comment on above: Expected: 11/16/2023 , Expires: 02/15/2024 Start: 11-16-2023 End: 02-15-2024 PROT ELECT SERUM WITH FAUSTINA AND INTERP [facility] Work Phone: Comment on above: Expected: 11/16/2023 , Expires: 02/15/2024 Start: 11-09-2023 End: 11-09-2023 Patient encounter procedure 11/09/2023 1:00 PM EDT Office Visit [facility] [address] [place] [address] Lab [facility] Comment on above: Lab Start: 10-30-2023 DIABETES SCREEN DIABETES SCREEN [facility] Start: 10-08-2023 Covid-19 Vaccine () Covid-19 Vaccine () [facility] Start: 10-08-2023 Covid-19 Vaccine () Covid-19 Vaccine () [facility] Start: 10-08-2023 Influenza vaccination [facility] Start: 06-16-2023 End: 09-15-2023 MONOCLONAL PROTEIN, SERUM (BLOOD) MONOCLONAL PROTEIN, SERUM (BLOOD) Lab Routine Prostate cancer (HCC) Monoclonal gammopathy Chronic renal insufficiency, stage 3 (moderate) (HCC) Essential hypertension Expected: 06/16/2023, Expires: 09/15/2023 [facility] Work Phone: Comment on above: Expected: 06/16/2023 , Expires: 09/15/2023 Start: 05-19-2023 End: 08-18-2023 CBC W Auto Differential panel - Blood COMPLETE BLOOD COUNT AND DIFFERENTIAL Lab Routine Prostate cancer (HCC) Monoclonal gammopathy Chronic renal insufficiency, stage 3 (moderate) (HCC) Essential hypertension Expected: 05/19/2023, Expires: 08/18/2023 [facility] Work Phone: Comment on above: Expected: 05/19/2023 , Expires: 08/18/2023 Start: 05-19-2023 End: 08-18-2023 Comprehensive metabolic 2000 panel - Serum or Plasma COMPREHENSIVE METABOLIC PANEL Lab Routine Prostate cancer (HCC) Monoclonal gammopathy Chronic renal insufficiency, stage 3 (moderate) (HCC) Essential hypertension Expected: 05/19/2023, Expires: 08/18/2023 [facility] Work Phone: Comment on above: Expected: 05/19/2023 , Expires: 08/18/2023 Start: 05-19-2023 End: 08-18-2023 Prostate specific Ag [Mass/volume] in Serum or Plasma PROSTATE-SPECIFIC ANTIGEN DIAGNOSTIC Lab Routine Prostate cancer (HCC) Monoclonal gammopathy Chronic renal insufficiency, stage 3 (moderate) (HCC) Essential hypertension Expected: 05/19/2023, Expires: 08/18/2023 [facility] Work Phone: Comment on above: Expected: 05/19/2023 , Expires: 08/18/2023 Start: 05-19-2023 End: 08-18-2023 PROTEIN ELECTROPHORESIS SERUM W/INTERP PROTEIN ELECTROPHORESIS SERUM W/INTERP Lab Routine Prostate cancer (HCC) Monoclonal gammopathy Chronic renal insufficiency, stage 3 (moderate) (HCC) Essential hypertension Expected: 05/19/2023, Expires: 08/18/2023 [facility] Work Phone: Comment on above: Expected: 05/19/2023 , Expires: 08/18/2023 Start: 05-18-2023 End: 08-17-2023 CBC W Auto Differential panel - Blood CBC + DIFF Lab Routine Prostate cancer (HCC) Monoclonal gammopathy Expected: 05/18/2023, Expires: 08/17/2023 [facility] Work Phone: Comment on above: Expected: 05/18/2023 , Expires: 08/17/2023 Start: 05-18-2023 End: 08-17-2023 Comprehensive metabolic 2000 panel - Serum or Plasma COMP METABOLIC PANEL Lab Routine Prostate cancer (HCC) Monoclonal gammopathy Expected: 05/18/2023, Expires: 08/17/2023 [facility] Work Phone: Comment on above: Expected: 05/18/2023 , Expires: 08/17/2023 Start: 05-18-2023 End: 08-17-2023 MONOCLONAL PROTEIN, SERUM (BLOOD) MONOCLONAL PROTEIN, SERUM (BLOOD) Lab Routine Prostate cancer (HCC) Monoclonal gammopathy Expected: 05/18/2023, Expires: 08/17/2023 [facility] Work Phone: Comment on above: Expected: 05/18/2023 , Expires: 08/17/2023 Start: 05-18-2023 End: 08-17-2023 Prostate specific Ag [Mass/volume] in Serum or Plasma PSA/PROSTSPECAG DIAG Lab Routine Prostate cancer (HCC) Monoclonal gammopathy Expected: 05/18/2023, Expires: 08/17/2023 [facility] Work Phone: Comment on above: Expected: 05/18/2023 , Expires: 08/17/2023 Start: 05-18-2023 End: 08-17-2023 PROTEIN ELECTROPHORESIS SERUM W/INTERP PROTEIN ELECTROPHORESIS SERUM W/INTERP Lab Routine Prostate cancer (HCC) Monoclonal gammopathy Expected: 05/18/2023, Expires: 08/17/2023 [facility] Work Phone: Comment on above: Expected: 05/18/2023 , Expires: 08/17/2023 Start: 02-06-2023 Advance Directive Discussion Advance Directive Discussion [facility] Start: 02-06-2023 Behavioral Health Screening Behavioral Health Screening [facility] Start: 01-05-2023 End: 04-06-2023 MONOCLONAL PROTEIN, SERUM (BLOOD) [facility] Work Phone: Comment on above: Expected: 01/05/2023 , Expires: 04/06/2023 Start: 01-05-2023 End: 04-06-2023 PROT ELECT SERUM WITH FAUSTINA AND INTERP [facility] Work Phone: Comment on above: Expected: 01/05/2023 , Expires: 04/06/2023 Start: 11-02-2022 End: 01-02-2023 CBC W Auto Differential panel - Blood CBC + DIFF Lab Routine Monoclonal gammopathy Prostate cancer (HCC) Essential hypertension Chronic renal insufficiency, stage 3 (moderate) (HCC) Expected: 11/02/2022, Expires: 01/02/2023 [facility] Work Phone: Comment on above: Expected: 11/02/2022 , Expires: 01/02/2023 Start: 11-02-2022 End: 01-02-2023 Comprehensive metabolic 2000 panel - Serum or Plasma COMP METABOLIC PANEL Lab Routine Monoclonal gammopathy Prostate cancer (HCC) Essential hypertension Chronic renal insufficiency, stage 3 (moderate) (HCC) Expected: 11/02/2022, Expires: 01/02/2023 [facility] Work Phone: Comment on above: Expected: 11/02/2022 , Expires: 01/02/2023 Start: 11-02-2022 End: 01-02-2023 MONOCLONAL PROTEIN, SERUM (BLOOD) MONOCLONAL PROTEIN, SERUM (BLOOD) Lab Routine Monoclonal gammopathy Prostate cancer (HCC) Essential hypertension Chronic renal insufficiency, stage 3 (moderate) (HCC) Expected: 11/02/2022, Expires: 01/02/2023 [facility] Work Phone: Comment on above: Expected: 11/02/2022 , Expires: 01/02/2023 Start: 11-02-2022 End: 01-02-2023 PROT ELECT SERUM WITH FAUSTINA AND INTERP PROT ELECT SERUM WITH FAUSTINA AND INTERP Lab Routine Monoclonal gammopathy Prostate cancer (HCC) Essential hypertension Chronic renal insufficiency, stage 3 (moderate) (HCC) Expected: 11/02/2022, Expires: 01/02/2023 [facility] Work Phone: Comment on above: Expected: 11/02/2022 , Expires: 01/02/2023 Start: 10-09-2022 Bacteria identified in Urine by Culture [facility] Start: 10-07-2022 Covid-19 Vaccine ( season) Covid-19 Vaccine ( season) [facility] Start: 10-07-2022 Influenza vaccination [facility] Start: 06-02-2022 End: 08-02-2022 CBC W Auto Differential panel - Blood CBC + DIFF Lab Routine Monoclonal gammopathy Expected: 06/02/2022, Expires: 08/02/2022 [facility] Work Phone: Comment on above: Expected: 06/02/2022 , Expires: 08/02/2022 Start: 06-02-2022 End: 08-02-2022 Comprehensive metabolic 2000 panel - Serum or Plasma COMP METABOLIC PANEL Lab Routine Monoclonal gammopathy Expected: 06/02/2022, Expires: 08/02/2022 [facility] Work Phone: Comment on above: Expected: 06/02/2022 , Expires: 08/02/2022 Start: 06-02-2022 End: 08-02-2022 MONOCLONAL PROTEIN, SERUM (BLOOD) MONOCLONAL PROTEIN, SERUM (BLOOD) Lab Routine Monoclonal gammopathy Expected: 06/02/2022, Expires: 08/02/2022 [facility] Work Phone: Comment on above: Expected: 06/02/2022 , Expires: 08/02/2022 Start: 06-02-2022 End: 08-02-2022 PROT ELECT SERUM WITH FAUSTINA AND INTERP PROT ELECT SERUM WITH FAUSTIAN AND INTERP Lab Routine Monoclonal gammopathy Expected: 06/02/2022, Expires: 08/02/2022 [facility] Work Phone: Comment on above: Expected: 06/02/2022 , Expires: 08/02/2022 Start: 05-10-2022 Adult depression screening assessment DEPRESSION SCREENING [facility] Start: 02-06-2022 ADVANCE DIRECTIVE DISCUSSION ADVANCE DIRECTIVE DISCUSSION [facility] Start: 02-06-2022 DEPRESSION ASSESSMENT DEPRESSION ASS ESSMENT [facility] Start: 11-02-2021 End: 01-02-2022 CBC W Auto Differential panel - Blood CBC + DIFF Lab Routine Monoclonal gammopathy Expected: 11/02/2021, Expires: 01/02/2022 [facility] Work Phone: Comment on above: Expected: 11/02/2021 , Expires: 01/02/2022 Start: 11-02-2021 End: 01-02-2022 Comprehensive metabolic 2000 panel - Serum or Plasma COMP METABOLIC PANEL Lab Routine Monoclonal gammopathy Expected: 11/02/2021, Expires: 01/02/2022 [facility] Work Phone: Comment on above: Expected: 11/02/2021 , Expires: 01/02/2022 Start: 11-02-2021 End: 01-02-2022 PROT ELECT SERUM WITH FAUSTINA AND INTERP PROT ELECT SERUM WITH FAUSTINA AND INTERP Lab Routine Monoclonal gammopathy Expected: 11/02/2021, Expires: 01/02/2022 [facility] Work Phone: Comment on above: Expected: 11/02/2021 , Expires: 01/02/2022 Start: 10-29-2021 Adult depression screening assessment DEPRESSION SCREENING [facility] Start: 10-07-2021 Influenza vaccination C [facility] Start: 2021 RSV Vaccine (1 - 1-d ose 75+ series) RSV Vaccine (1 - 1-dose 75+ series) [facility] Start: 05-10-2021 End: 07-10-2021 CBC W Auto Differential panel - Blood CBC + DIFF Lab Routine Monoclonal gammopathy Prostate cancer (HCC) Expected: 05/10/2021, Expires: 07/10/2021 [facility] Work Phone: Comment on above: Expected: 05/10/2021 , Expires: 07/10/2021 Start: 02-06-2021 ADVANCE DIRECTIVE DISCUSSION ADVANCE DIRECTIVE DISCUSSION [facility] Start: 02-06-2021 DEPRESSION ASSESSMENT DEPRESSION ASS ESSMENT [facility] Start: 10-07-2020 Influenza vaccination INFLUENZA (#1) [facility] Start: 08-27-2020 COVID-19 VACCINE (3 - Booster) COVID-19 VACCINE (3 - Booster) [facility] Start: 05-25-2020 COVID-19 VACCINE (3 - Booster) COVID-19 VACCINE (3 - Booster) [facility] Start: 05-25-2020 COVID-19 VACCINE (3 - Mixed Product series) COVID-19 VACCINE (3 - Mixed Product series) [facility] Start: 10-08-2019 Influenza vaccination INFLUENZA (#1) [facility] Start: 02-06-[address] [facility] Start: 02-06-2013 COLORECTAL CANCER SCREENING COLORECTAL CANCER SCREENING [facility] Start: 09-03-2011 ADVANCE DIRECTIVE DISCUSSION ADVANCE DIRECTIVE DISCUSSION [facility] Start: 09-03-2011 Pneumococcal Vaccine : 50+ (1 of 1 - PCV) Pneumococcal Vaccine: 50+ (1 of 1 - PCV) [facility] Start: 09-03-2011 Pneumococcal Vaccine : 65+ (1 - PCV) Pneumococcal Vaccine: 65+ (1 - PCV) [facility] Start: 09-03-2011 Pneumococcal Vaccine : 65+ (1 of 1 - PCV) Pneumococcal Vaccine: 65+ (1 of 1 - PCV) [facility] Start: 09-03-2011 PNEUMOCOCCAL: 65+ (1 - PCV) PNEUMOCOCCAL: 65+ (1 - PCV) [facility] Start: 09-03-2011 PNEUMOVAX AGE 65 AND OVER WITH 5YR LOOKBACK (#1) PNEUMOVAX AGE 65 AND OVER WITH 5YR LOOKBACK (#1) [facility] Start: 2006 RSV Vaccine (1 - 1-d ose 60+ series) RSV Vaccine (1 - 1-dose 60+ series) [facility] Start: 1996 Pneumococcal Vaccine : 50+ (1 of 1 - PCV) Pneumococcal Vaccine: 50+ (1 of 1 - PCV) [facility] Start: 1996 SHINGRIX VACCINE (1 of 2) GOLDSMITH GRIX VACCINE (1 of 2) [facility] Start: 1996 Tuberculosis screening COLOREC AUBRIE CANCER SCREENING,SEE MODIFIER [facility] Start: 09-03-1991 COLOGUARD (FIT-DNA) COLOGUARD (FIT-D NA) [facility] Start: 09-03-[address] COLONOGRAPHY [facility] Start: 09-03-1991 DIABETES SCREEN DIABETES SCREEN [facility] Start: 09-03-1991 FECAL OCCULT BLOOD FECAL OCCULT BLOO D [facility] Start: 09-03-1991 SIGMOIDOSCOPY SIGMOIDOSCOPY [facility] Start: 1981 L[address] S[address]EN LIPID SCREEN [facility] Start: [address] [facility] Start: 1964 Anxiety Screening Anxiety Screening [facility] Start: 1964 Depression Screening Depression Scre ening [facility] Start: 1964 HEPATITIS C SCREENING HEPATITIS C [facility] Start: 1964 Hepatitis C screening Hepatitis C [facility] CT SIM PLANNING RADI ATION ONCOLOGY CT SIM PLANNING RADIATION ONCOLOGY Radiology Routine Malignant neoplasm of prostate (HCC) Ordered: 12/15/2022 [facility] Work Phone: Comment on above: Ordered: 12/15/2022 End: 12-15-2023 MRI PROSTATE WO/W IVCON MRI PROSTATE WO/W IVCON Radiology Routine Malignant neoplasm of prostate (HCC) 1 Occurrences starting 11/15/2022 until 12/15/2023 [facility] Work Phone: Comment on above: 1 Occurrences starti ng 11/15/2022 until 12/15/2023 [facility] Immunizations Immunization [facility] Immunization Notes Care Provider Fa cili 03-30-2020 COVID-19 vaccine (UNSPECIFIED) Nicolas Hwang MD Work Phone: [facility] 03-08-2020 COVID-19 vaccine (UNSPECIFIED) Nicolas Hwang MD Work Phone: [facility] NEGATED: Highlighted row has not occurred!10-23-2023 influenza virus vaccine, unspecified formulation Yosef CORNELIO [facility] [place] Payers Date Payer Category Payer Self-pay 2020 Medicare AETNA MEDICARE A ETNA MEDICARE PPO [id number] 2020-Present [id number] [place] [id number] PP [id number] 2020 Medicare AETNA MEDICARE A ETNA MEDICARE PPO [id number] 2020-Present [id number] [place] [id number] [facility] [id number] 2020 Medicare (Managed Care) [place] [id number] 2019 Medicare AETNA MEDICARE A ETNA MEDICARE PPO [id number] 2019-Present PPO [id number] 1959 Medicare [id number] 1945 Unknown [id number] 2.16.840.1.403136.3.579.2. 593 1946 Unknown [id number] 2.16.840.1.022710.3.579.2. 593 1946 Unknown [id number] 2.16.840.1.980660.3.579.2. 593 1946 Unknown [id number] 2.16.840.1.718482.3.579.2. 593 1946 Unknown [id number] 2.16.840.1.975903.3.579.2. 593 1946 Unknown [id number] 2.16.840.1.298148.3.579.2. 727 1946 Unknown [id number] 2.16.840.1.847714.3.579.2. 727 1946 Unknown [id number] 2.16.840.1.648357.3.579.2. 727 1946 Unknown [id number] 2.16.840.1.933172.3.579.2. 727 1946 Unknown [id number] 2.16.840.1.902277.3.579.2. 727 1946 Unknown [id number] 2.16.840.1.515372.3.579.2. 727 1946 Unknown [id number] 2.16.840.1.118938.3.579.2. 72 1946 Unknown [id number] 2.16.840.1.369213.3.579.2. 1946 Unknown [id number] 2.16.840.1.434363.3.579.2 1946 Unknown [id number] 2.16.840.1.144675.3.579.2. 1946 Unknown [id number] 2.16.840.1.312938.3.579.2 1946 Unknown [id number] 2.16.840.1.773502.3.579.2 1946 Unknown [id number] 2.16.840.1.426347.3.579.2 1946 Unknown [id number] 2.16.840.1.864282.3.579.2 1946 Unknown [id number] 2.16.840.1.276511.3.579.2 1946 Unknown [id number] 2.16.840.1.095576.3.579.2 1946 Unknown [id number] 2.16.840.1.194562.3.579.2 1946 Unknown [id number] 2.16.840.1.847863.3.579.2 1946 Unknown [id number] 2.16.840.1.292573.3.579.2 1946 Unknown [id number] 2.16.840.1.997004.3.579.2 1946 Unknown [id number] 2.16.840.1.617102.3.579.2 1946 Unknown [id number] 2.16.840.1.024166.3.579.2 1946 Unknown [id number] 2.16.840.1.348500.3.579.2. 727 1946 Unknown [id number] 2..840.1.702455.3.579.2. 727 Medicare [id number] 2.16.840.1.777446.19 Unknown [id number] 2.16.840.1.756969.3.579.2. 531 Social History Date Type Detail Facility Tobacco smoking status NHIS Unknown if ever smoked [facility] Start: 1945 Sex Assigned At Not on file [facility] Start: 10-22-2019 End: 11-02-2021 Tobacco smoking status COIS Never smoked tobacco [facility] Comment on above: patient never a smok er denies use Start: 10-22-2019 End: 11-02-2021 Tobacco use and exposure Smokeless tobacco non-user [facility] Start: 10-29-2020 End: 06-04-2024 Alcohol intake Ex-drinker (finding) [facility] Start: 04-30-2021 End: 11-02-2021 Exposure to SARS-CoV-2 (event) Not sure [facility] Start: 06-02-2022 End: 11-15-2022 Sex Assigned At [employer] Other History of tobacco use Passive smoker [facility] Tobacco smoking status Never [facility] Comment on above: patient never a smok er denies use Start: 06-02-2022 End: 11-15-2022 History of Social function [facility] Start: 1945 Sex Assigned At Male [facility] Start: 02-24-2024 Sex Male (finding) [facility] Functional Status Date Assessment Result Facility 03-04-2024 Functional Status N/A [facility] 01-23-2024 Functional Status N/A [facility] 01-10-2024 Functional Status N/A [facility] 01-08-2024 Functional Status N/A [facility] 11-24-2023 Functional Status N/A [facility] 05-22-2023 Functional Status N/A [facility] 12-02-2022 Functional Status N/A [facility] 11-18-2022 Functional Status N/A [facility] 10-03-2022 Functional Status N/A [facility] 09-27-2021 N/A [facility] Clinical Notes 05-21-2019 to 06-04-2024 David Kumari MD - 06/04/2024 2:55 PM Letty Covarrubias RN - 06/04/2024 2:53 PM Minoo Byrne APRN.SKEIN SPOOLER - 05/20/2024 2:00 PM Nancy Bowen, RT(R) - 05/07/2024 1:00 PM EDT Note Date & Type Note Facility 06-04-2024 Note HNO ID: [id number] Author: David KUMARI MD Service: ? Author [...] Kumari MD cc: Shahriar Stephenson [address] [place] [address] No referring provider defined for this encounter. [facility] 06-04-2024 History of Present illness Narrative Radiation [...] ASSESSMENT/PLAN: Prostate adenocarcinoma, initial PSA 7.5, biopsy Pettus score 4 + 3 = 7 (grade [...] by: David Kumari MD cc: Shahriar Stephenson [address] [place] [address] No referring provider defined for this encounter. AUA= [address] documented in this encounter [facility] 06-04-2024 Note HNO ID: [id number] Author: LETTY BARAHONA RN Service: ? Author Type: Registered Nurse Type: Progress Notes Filed: 06/07/2024 10:34 Note Text: AUA= 7 [facility] 05-20-2024 History of Present illness Narrative Images [...] every [address] Grimes. Had roby today and follow-up with Dr. Grimes. Overall feels well today with no particular complaints. No difficulties with urination. Has returned from [place]! Labs stable. MEDICATIONS: abiraterone 250 mg tablet [...] or petechiae. PATHOLOGY: 11/10/2022 Bladder tumor, TURBT ([facility]) Metastatic poorly differentiated adenocarcinoma, consistent [...] lesion. No comparison study. 10/28/2019 Skeletal survey ([facility]) Subtle oval slightly lytic-appearing lesion [...] management per PCP/nephrology. . Minoo Gill APRN, BED LASTER-C, [facility] Provided at: [place], [place] documented in this encounter [facility] 05-20-2024 Note HNO ID: [id number] Author: MINOO GILL APRN.NORBERTO Service: ? Author [...] No difficulties with urination. Has returned from [place]! Labs stable. MEDICATIONS: abiraterone 250 mg tablet [...] or petechiae. PATHOLOGY: 11/10/2022 Bladder tumor, TURBT ([facility]) Metastatic poorly differentiated adenocarcinoma, consistent [...] lesion. No comparison study. 10/28/2019 Skeletal survey ([facility]) Subtle oval slightly lytic-appearing lesion within the right femoral neck, nonspecific and may repr (more content not included)... [facility] 05-20-2024 Note Patient Education Oncology Hormone Suppression [...] cancer. Where to find more information ??? [place] [employer]: www.cancer.org ??? National Cancer [place]: www.cancer.gov Contact a health care provider if: [...] confused. ??? You (more content not included)... [facility] 05-07-2024 History of Present illness Narrative [...] PATIENT PRESENTS WITH AN IMPLANTABLE OR ATTACHED MANAGER PAID: No RADIOLOGY DEPARTMENT: General X-ray: Exam(s) Completed: Abdomen X-Ray: Abdomen PERIPHERAL IV DATA: Not applicable SIGNED BY: RT Jace(Alivia) May 07, 2024 1:20 PM documented in this encounter [facility] 05-07-2024 Note HNO ID: [id number] Author: NANCY SAENZ RT(R) Service: ? Author [...] PATIENT PRESENTS WITH AN IMPLANTABLE OR ATTACHED MANAGER PAID: No RADIOLOGY DEPARTMENT: General X-ray: Exam(s) Completed: Abdomen X-Ray: Abdomen PERIPHERAL IV DATA: Not applicable SIGNED BY: RT Jace(Alivia) May 07, 2024 1:20 PM [facility] 03-04-2024 Hospital Discharge instructions Patient Education 03/04/2024 [...] including vitamins, herbs, eye drops, creams, and kezu-phc-ymyygub medicines. Any problems you or family members [...] provider tells you to take them. Taking arzx-ucp-bahtgyk medicines, vitamins, herbs, and supplements. Tests You [...] Follow these instructions at home: Medicines Take sfgt-uid-mdmobdy and prescription medicines only as told by [...] provider. Document Revised: 10/06/2021 Document Reviewed: 09/04/2020 [employer] Patient Education 2023 [employer]. 03/04/2024 10:49:40 Prostate Cancer Screening Prostate Cancer [...] treatment? Where to find more information The [place] [employer]: www.cancer.org [employer] [employer]: www.auanet.org Contact a health care [...] provider. Document Revised: 07/19/2021 Document Reviewed: 07/19/2021 [employer] Patient Education 2023 [employer]. Follow Up Care 02/27/2024 15:41:35 With:CORNELIO ROSARIO, Yosef Bunch, URL Address: [facility] [address] [place] [address]- [phone] When: Unknown Comments:Has f/u 05/20/24 w/ PSA and Justin and JOSE, also to schedule cysto [facility] 03-04-2024 Note Patient Education Oncology Prostate Cancer [...] Where to find more information ??? The [place] [employer]: www.cancer.org ??? [place] [employer]: www.auanet.org Contact a health care [...] The prostate gland (more content not included)... [facility] 02-01-2024 Note Echocardiology Procedure Exam Date/Time Accession # Ordering Echo Transthoracic w/ 01/30/2024 11:56 EST [id number] Bob ROSARIO, Meño Contrast CPT code 74081 C8929 Reason for Exam (Echo Transthoracic w/ Contrast) Abnormal ECG, Chest pain R94.31;Other (please specify) Report [facility] [address] [place] [address] Adult Echocardiogram Report Name: ADOLPH JOHNS Study Date: 01/30/2024 10:54 AM BP: 137/84 mmHg Patient Location: [facility] Ambulatory[facility] [place]: 80 : 1945 Gender: Male Height: [...] Reji Holloway MD Transcribed by: NETTE Technologist: [facility] 01-19-2024 History of Present illness Narrative [...] TO CHANGE TRACKING LOCATION [facility] 10/29/2020 7719 P.O.C.T. RESULTS: POC done: Yes, See Lab Tab January 19, 2024 TREATMENT: N/A IV SITE: Ambulatory: A peripheral IV was started in the Right hand with a Angio cath: 20 gauge. IV SITE APPEARANCE: Clean,Dry and Intact SIGNATURE: Blayne Mosqueda RN PATIENT NAME: Adolph Johns DATE: January 19, 2024 TIME: 8:37 AM documented in this encounter [facility] 01-19-2024 Note HNO ID: [id number] Author: BLAYNE MOSQUEDA RN Service: ? Author [...] TO CHANGE TRACKING LOCATION [facility] 10/29/2020 5895 P.O.C.T. RESULTS: POC done: Yes, See Lab Tab January 19, 2024 TREATMENT: N/A IV SITE: Ambulatory: A peripheral IV was started in the Right hand with a Angio cath: 20 gauge. IV SITE APPEARANCE: Clean,Dry and Intact SIGNATURE: Blayne Mosqueda RN PATIENT NAME: Adolph Johns DATE: January 19, 2024 TIME: 8:37 AM [facility] 01-10-2024 Hospital Discharge instructions Patient Education 01/10/2024 [...] Follow these instructions at home: Medicines Take qzyj-kbl-myqybul and prescription medicines only as told by [...] to keep your urine pale yellow. ?Take aiip-ihh-pabzvfd or prescription medicines. ?Eat foods that are [...] and pain in your lower abdomen. Take pqsm-vli-tamldpv and prescription medicines only as told by [...] provider. Document Revised: 01/28/2022 Document Reviewed: 01/28/2022 [employer] Patient Education 2023 [employer]. 01/10/2024 13:10:32 Transurethral Resection of Bladder Tumor [...] including vitamins, herbs, eye drops, creams, and vmkq-ktm-wxccmdn medicines. Any problems you or family members [...] provider tells you to take them. Taking xize-fwx-suugpiu medicines, vitamins, herbs, and supplements. General instructions [...] provider. Document Revised: 01/28/2022 Document Reviewed: 01/28/2022 [employer] Patient Education 2023 [employer]. Follow Up Care 01/08/2024 10:29:10 With:CORNELIO ROSARIO, Yosef Bunch, URL Address: [facility] [address], [place] [address]- When: Unknown [facility] Jose 01-10-2024 Note Patient Education Oncology [...] these instructions at home: Medicines ??? Take ktpq-oyn-igqdzrr and prescription medicines only as told by [...] keep your urine pale yellow. ? Take rlfi-peg-tyaugay or prescription medicines. ? Eat foods that [...] pain in your lower abdomen. ??? Take nmvm-bxw-erngbob and prescription medicines only as told by [...] your drainage bag. (more content not included)... [facility] 01-08-2024 Hospital Discharge instructions Patient Education [...] including vitamins, herbs, eye drops, creams, and lqdb-gps-xndguxd medicines. Any problems you or family members [...] provider tells you to take them. Taking hwax-hbu-ziwiyci medicines, vitamins, herbs, and supplements. Tests You [...] Follow these instructions at home: Medicines Take zyev-ejx-pwhnzpb and prescription medicines only as told by [...] provider. Document Revised: 10/06/2021 Document Reviewed: 09/04/2020 [employer] Patient Education 2023 [employer]. 01/08/2024 10:14:09 Hematuria, Adult Hematuria, Adult Hematuria [...] Follow these instructions at home: Medicines Take erxz-klh-vjbjntp and prescription medicines only as told by [...] or the blood stops without treatment. Take hxxf-twj-gkhnglq and prescription medicines only as told by your health care provider. Drink enough fluid to keep your urine pale yellow. This information is not intended to replace advice given to you by your health care provider. Make sure you discuss any questions you have with your health care provider. Document Revised: 09/23/2020 Document Reviewed: 09/23/2020 [employer] Patient Education 2023 [employer]. Follow Up Care 01/01/2024 08:46:40 With:CORNELIO ROSARIO, Yosef Bunch, URL Address: [facility] [address] , [place] [phone] When: Unknown [facility] Kristen 01-08-2024 Note Patient Education Urology Cystoscopy Cystoscopy [...] including vitamins, herbs, eye drops, creams, and aujk-ger-pjajaeu medicines. ??? Any problems you or family [...] tells you to take them. ??? Taking fvhl-pyo-vceused medicines, vitamins, herbs, and supplements. Tests You [...] these instructions at home: Medicines ??? Take cppm-xhb-wbuzuen and prescription medicines only as told by [...] (biopsy) during your (more content not included)... [facility] 01-01-2024 Telephone encounter Note Pt returned call and was notified. Peggy Lakhani RN [facility] 01-01-2024 Miscellaneous Notes Pt returned call and [...] Letty Barahona RN documented in this encounter [facility] 01-01-2024 Telephone encounter Note I left a message for Adolph to call the office. Letty Barahona RN [facility] 12-29-2023 Telephone encounter Note Attempted to call patient with Dr. Kumari's recommendation but there was no answer. Letty Barahona RN [facility] 12-29-2023 Telephone encounter Note Adolph left [...] CT scans. Please advise. Letty Barahona RN [facility] 11-24-2023 Hospital Discharge instructions Patient Education [...] under a microscope. This is called the Pettus score and the total score can range from 6 10, indicating how likely it is that the cancer will spread (metastasize) to other parts of the body. The higher the score, the greater the likelihood that the cancer will spread. Pettus 6 or lower: This indicates that the cancer cells look similar to normal prostate cells (well differentiated). Pettus 7: This indicates that the cancer cells [...] stress of having cancer. General instructions Take inji-uzb-wpooodw and prescription medicines only as told by your health care provider. If you have to go to the hospital, notify your cancer specialist (oncologist). Keep all follow-up visits. This is important. Where to find more information [place] Cancer Society: www.cancer.org [place] Society of Clinical Oncology: www.cancer.net National Cancer Northome: www.cancer.gov Contact a health care provider if: [...] provider. Document Revised: 04/21/2021 Document Reviewed: 04/21/2021 [employer] Patient Education 2023 [employer]. Follow Up Care 05/22/2023 12:03:30 With:CORNELIO ROSARIO, Yosef Bunch, URL Address: [address] [place] [phone]- When: Unknown [facility] Kristen 11-24-2023 Note Patient Education Oncology Prostate Cancer [...] likelihood that the cancer will spread. ? Pettus 6 or lower: This indicates that the cancer cells look similar to normal prostate cells (well differentiated). ? Coreen 7: This indicates that the cancer cells look somewhat similar to normal prostate cells (moderately differentiated). ? Pettus 8, 9, or 10: This indicates that [...] the prostate gla (more content not included)... [facility] 11-16-2023 History of Present illness Narrative Radiation Oncology - Follow Up Note PATIENT NAME: Adolph Johns PATIENT DIAGNOSIS: Prostate adenocarcinoma, initial PSA 7.5, biopsy Pettus score 4 + 3 = 7 (grade [...] by: David Kumari MD cc: Shahriar Stephenson [address] [place] [address] No referring provider defined for this encounter. documented in this encounter [facility] 11-16-2023 Note HNO ID: [id number] Author: David KUMARI MD Service: ? Author [...] ASSESSMENT/PLAN: Prostate adenocarcinoma, initial PSA 7.5, biopsy Pettus score 4 + 3 = 7 (grade [...] Kumari MD cc: Shahriar Stephenson [address] [place] [address] No referring provider defined for this encounter. [facility] 11-16-2023 Nurse Note JACK Lakhani RN [facility] 11-16-2023 Nurse Note JACK Lakhani RN documented in this encounter [facility] 11-15-2023 Note HNO ID: [id number] Author: NICOLAS HWANG MD Service: ? Author [...] with urination. He plans to travel to [place] next week where he plans to spend [...] or petechiae. PATHOLOGY: 11/10/2022 Bladder tumor, TURBT ([facility]) Metastatic poorly differentiated adenocarcinoma, consistent [...] lesion. No comparison study. 10/28/2019 Skeletal survey ([facility]) Subtle oval slightly lytic-appearing lesion within the right femoral neck, nonspecific and may represent summation ar (more content not included)... [facility] 11-15-2023 History of Present illness Narrative PATIENT [...] with urination. He plans to travel to [place] next week where he plans to spend [...] or petechiae. PATHOLOGY: 11/10/2022 Bladder tumor, TURBT ([facility]) Metastatic poorly differentiated adenocarcinoma, consistent [...] lesion. No comparison study. 10/28/2019 Skeletal survey ([facility]) Subtle oval slightly lytic-appearing lesion [...] in May 2024 after he returns from [place] to [place]. 2. Monoclonal gammopathy - ICD9: 273.1, ICD10: [...] Nicolas Hwang MD documented in this encounter [facility] 10-23-2023 Note Patient Education Nutrition BMI for [...] for Disease Control and Prevention: cdc.gov ? [place] Heart Association: heart.org ? National Heart, Lung, and Blood Northome: nhlbi.nih.gov This information is not intended to replace advice given to you by your health care provider. Make sure you discuss any questions you have with your health care provider. Document Revised: 10/13/2022 Document Reviewed: 10/06/2022 [employer] Patient Education ? 2023 [employer] DASH Eating Plan DASH stands for [...] vegetables each day (more content not included)... [facility] 05-22-2023 Hospital Discharge instructions Patient Education [...] advanced cancer. Where to find more information [place] Cancer Society: www.cancer.org National Cancer Northome: www.cancer.gov Contact a health care provider if: [...] provider. Document Revised: 05/06/2021 Document Reviewed: 05/06/2021 [employer] Patient Education 2022 [employer]. Follow Up Care 12/02/2022 13:08:27 With:CORNELIO ROSARIO, Yosef Bunch, URL Address: [facility] [address] , [place] [address]- [phone] When: Unknown Comments:6 mos w/ PSA (gets level from [facility]) [facility] Kristen 05-18-2023 History of Present illness [...] by: David Kumari MD cc: Shahriar Stephenson [address] [place] [address] No referring provider defined for this encounter. documented in this encounter [facility] 05-18-2023 Nurse Note AUA 5 Peggy Lakhani RN documented in this encounter [facility] 05-18-2023 History of Present illness Narrative PATIENT [...] or petechiae. PATHOLOGY: 11/10/2022 Bladder tumor, TURBT ([facility]) Metastatic poorly differentiated adenocarcinoma, consistent [...] lesion. No comparison study. 10/28/2019 Skeletal survey ([facility]) Subtle oval slightly lytic-appearing lesion [...] (moderate) Continue management per PCP/nephrology. Elio Payne APRN.SKEIN SPOOLER CC: Dr. Cook, Dr. Grimes I spent a total of 30 minutes on the date of the service which included preparing to see the patient, pgpw-tu-rfgx patient care, completing clinical documentation, obtaining and/or reviewing separately obtained history, performing a medically appropriate examination, counseling and educating the patient/family/caregiver, ordering medications, tests, or procedures, independently interpreting results (not separately reported), and communicating results to the patient/family/caregiver. documented in this encounter [facility] 05-08-2023 Miscellaneous Notes Patient coming in 05/18/23 for follow up with labs. Please add lab orders. Bettina El MA documented in this encounter [facility] 01-26-2023 History of Present illness Narrative Boost set up films reviewed documented in this encounter [facility] 01-17-2023 History of Present illness Narrative Boost reese reviewed. documented in this encounter [facility] 01-16-2023 History of Present illness Narrative Images from the original note were not included. Radiation Oncology - On Treatment Review (OTR) Note PATIENT NAME: Adolph Johns PATIENT DIAGNOSIS: Prostate adenocarcinoma, initial PSA 7.5, biopsy Pettus score 4 + 3 = 7 (grade [...] David Kumari MD documented in this encounter [facility] 01-11-2023 History of Present illness Narrative ADOLPH JOHNS [id number] 01/11/2023 [facility] Department of Radiation Oncology Treatment Planning [...] M.D. 31:35 PM documented in this encounter [facility] 01-09-2023 Miscellaneous Notes I notified Farfan of Dr. Hwang's recommendation to contact his Dr. Stephenson, PCP, abut his hypokalemia. Adolph will call PCP as recommended. He denies further questions at this time. I faxed 01/05/[address] Stephenson. 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 Perhaps best to follow-up with his PCP for recommendations. Sienna B Adolph is here for radiation therapy and said on 01/06/23 Dr. Hwang prescribed oral potatssium 10 mEq. 01/05/23 potassium level 3.1. He said he took one tablet Monday afternoon and developed weakness, lightheadedness, nausea, diarrhea, [...] Letty Barahona RN documented in this encounter [facility] 01-06-2023 Miscellaneous Notes The following approved medication requests have been transmitted electronically. Requested Prescriptions Signed Prescriptions Disp Refills potassium chloride (K-TAB) 10 mEq tablet 30 tablet 3 Sig: Take 1 tablet by mouth once daily. Authorizing Provider: ELIO PAYNE APRN.SKEIN SPOOLER Mr. Johns notified of low potassium and recommendation to start potassium supplement. Patient in agreement and states that she has started a potassium rich diet. Pt would like script sent to [facility]. Elio: Please review and sign pending order. Thanks! Jessica Amezquita RN ----- Message from Nicolas Hwang MD sent at 01/06/2023 7:58 AM EST ----- Please inform the patient that his potassium is slightly low. Possibly from his Zestoretic or abiraterone/prednisone. Would recommend potassium supplement with 10 mEq 1 daily. documented in this encounter [facility] 01-05-2023 History of Present illness Narrative PATIENT [...] visit his bladder biopsy was reviewed by [facility] pathology, and the diagnosis of poorly [...] or petechiae. PATHOLOGY: 11/10/2022 Bladder tumor, TURBT ([facility]) Metastatic poorly differentiated adenocarcinoma, consistent [...] lesion. No comparison study. 10/28/2019 Skeletal survey ([facility]) Subtle oval slightly lytic-appearing lesion [...] patient plans to spend the winter in [place] after radiation is completed. I will see him back in May 2023 when he returns to [place]. 2. Monoclonal gammopathy - ICD9: 273.1, ICD10: [...] Cook, Dr. Grimes documented in this encounter [facility] 01-02-2023 History of Present illness Narrative Radiation Oncology - On Treatment Review (OTR) Note PATIENT NAME: Adolph Johns PATIENT DIAGNOSIS: Prostate adenocarcinoma, initial PSA 7.5, biopsy Pettus score 4 + 3 = 7 (grade [...] David Kumari MD documented in this encounter [facility] 12-26-2022 History of Present illness Narrative Radiation Oncology - On Treatment Review (OTR) Note PATIENT NAME: Adolph Johns PATIENT DIAGNOSIS: Prostate adenocarcinoma, initial PSA 7.5, biopsy Pettus score 4 + 3 = 7 (grade [...] David Kumari MD documented in this encounter [facility] 12-22-2022 Nurse Note Adolph Johns presents in office today for: Lab Draw only . Ordering Provider: Damien Kumari M.D. Test (s) ordered: CBC Method for obtaining blood: Phlebotomy was performed, accessing left antecubital vein. Needle removed intact. Dressing secured. Patient denies discomfort, dizziness, light-headedness or weakness and left the department without assist. Letty Barahona LPN documented in this encounter [facility] 12-19-2022 Miscellaneous Notes Patient is scheduled for 12/21/2022 at 10:30AM with Dr Leila Evans at [facility]. I called and let him know appt day and time. documented in this encounter [facility] 12-19-2022 History of Present illness Narrative Radiation [...] lesion unrelated we will have him see principal java software engineer. Chart and imaging reviewed. Continue radiation as outlined. David Kumari MD documented in this encounter [facility] 12-15-2022 Miscellaneous Notes ORAL ANTI-CANCER AGENTS FOLLOW-UP [...] Nancy Ray RN documented in this encounter [facility] 12-14-2022 History of Present illness Narrative Radiation Oncology - On Treatment Review (OTR) Note PATIENT NAME: Adolph Johns PATIENT DIAGNOSIS: Prostate adenocarcinoma, initial PSA 7.5, biopsy Pettus score 4 + 3 = 7 (grade [...] David Kumari MD documented in this encounter [facility] 12-08-2022 History of Present illness Narrative ADOLPH JOHNS [id number] 12/08/2022 [facility] Department of Radiation Oncology Treatment Planning [...] M.D. 33:30 PM documented in this encounter [facility] 12-02-2022 Hospital Discharge instructions Patient Education 12/02/2022 [...] under a microscope. This is called the Pettus score and the total score can range from 6 10, indicating how likely it is that the cancer will spread (metastasize) to other parts of the body. The higher the score, the greater the likelihood that the cancer will spread. Coreen 6 or lower: This indicates that the cancer cells look similar to normal prostate cells (well differentiated). Pettus 7: This indicates that the cancer cells look somewhat similar to normal prostate cells (moderately differentiated). Pettus 8, 9, or 10: This indicates that [...] stress of having cancer. General instructions Take gidd-vfu-bcnfooo and prescription medicines only as told by your health care provider. If you have to go to the hospital, notify your cancer specialist (oncologist). Keep all follow-up visits. This is important. Where to find more information [place] Cancer Society: www.cancer.org [place] Society of Clinical Oncology: www.cancer.net National Cancer Northome: www.cancer.gov Contact a health care provider if: [...] provider. Document Revised: 04/21/2021 Document Reviewed: 04/21/2021 [employer] Patient Education 2022 [employer]. 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 Was approved? No Signed by: Letty Barahona LPN documented in this encounter [facility] 11-28-2022 History of Present illness Narrative Radiology [...] 2022 12:01 PM documented in this encounter [facility] 11-18-2022 Hospital Discharge instructions Patient Education 11/18/2022 [...] under a microscope. This is called the Pettus score and the total score can range from 6 10, indicating how likely it is that the cancer will spread (metastasize) to other parts of the body. The higher the score, the greater the likelihood that the cancer will spread. Pettus 6 or lower: This indicates that the cancer cells look similar to normal prostate cells (well differentiated). Pettus 7: This indicates that the cancer cells look somewhat similar to normal prostate cells (moderately differentiated). Pettus 8, 9, or 10: This indicates that [...] stress of having cancer. General instructions Take qjya-yik-uebwdpw and prescription medicines only as told by your health care provider. If you have to go to the hospital, notify your cancer specialist (oncologist). Keep all follow-up visits. This is important. Where to find more information [place] Cancer Society: www.cancer.org [place] Society of Clinical Oncology: www.cancer.net National Cancer Northome: www.cancer.gov Contact a health care provider if: [...] provider. Document Revised: 04/21/2021 Document Reviewed: 04/21/2021 [employer] Patient Education 2022 [employer]. Follow Up Care 11/01/2022 16:31:02 With:CORNELIO ROSARIO, Yosef Bunch, URL Address: [facility] [address] [place] [phone] When: Unknown [facility] Kristen 11-15-2022 History of Present illness [...] pelvic lymphadenectomy on 01/07/2016. Pathology revealed adenocarcinoma, Pettus 8 (4+4), no evidence of extraprostatic extension, no seminal vesicle invasion, margins uninvolved, perineural invasion was seen, 2 regional lymph nodes removed without evidence of metastasis.[id number] Post prostatectomy PSA undetectable. However PSA has [...] ASSESSMENT/PLAN: prostate adenocarcinoma, initial PSA 7.5, biopsy Pettus score 4 + 3 = 7 (grade [...] Signed by: David Kumari MD cc: [place] [address] Yosef Grimes [address] [facility] [id number] documented in this encounter [facility] 10-28-2022 History of Present illness Narrative RADIOLOGY SERVICE PROGRESS NOTE SERVICE DATE: 10/28/2022 SERVICE TIME: 1:51 PM PATIENT IDENTITY VERIFICATION COMPLETED USING TWO (2) STANDARD IDENTIFIERS: Name and Date of confirmed by patient verbally POST EXAM PIV STATUS: Discontinued PROCEDURE TYPE: NM INJECT: PET/CT BODY SCAN. 10.5 mCi F18 FDG. No other medications given.. ADMINISTRATION TIME: 1245 PATIENT DISCHARGED TO: Ambulatory patient, left NM department area. A Diagnostic radioactive procedure has taken place, with no further precautions necessary other than routine body substance precautions. More information regarding radiation safety can be found using this link: [email or web address] SIGNATURE: RT Jace(Alivia) PATIENT NAME: Adolph Johns DATE: October 28, 2022 TIME: 1:51 PM PAGER/CONTACT #: documented in this encounter [facility] 10-09-2022 Evaluation note Encounter Date Diagnosis Assessment [...] Patient states he did 2 home UTI sgub-dyf-vfef ter test that were positive for nitrites. Patient appears nontoxic and will be treated for UTI according to his symptoms. Stressed the need for the patient to go to the ER for any worsening fevers, vomiting, abdominal pain, back pain. Patient agrees with this plan. Reds10 Other 09-01-2023 Miscellaneous Notes* Telephone Encounter - Brook Ambrosio - 10/07/2022 11:51 AM EDT Patient has been scheduled. Brook Semisela * Telephone Encounter - Diana Romero RN - 10/06/2022 1:18 PM EDT PET/Ct Prostate auth approved [id number] from 10-04-22 to 04-02-23 for 1 dos * Telephone Encounter - Diana Romero RN - 10/06/2022 1:01 PM EDT Authorization number: PSMA [id number] Authorization date range: PSMA from 10-04-22 to 04-02-23 for 1 dos [facility] [id number] Diagnosis: Rising PSA after Prostate cancer treatment [...] No - Schedule as requested Comments for Adapted Physical Education Specialist: N/A ROUTE TO SCHEDULERS POOL P PET ORACLE PROGRAMMER MC or P [place] SPECIAL STUDIES MC * Telephone Encounter - Melodie Auguste - 10/06/2022 11:10 AM EDT This form is used for MAIN CAMPUS APPOINTMENTS ONLY. Is this request for a [facility] [place] PET scan appointment? Yes: Retort Load Expediter: Melodie Ladd Requesting Person Dr landers (external order scanned in along with auth) Name): Area Code + Phone/Pager: [phone] Who do we call to schedule this appointment? [facility] please route to Lucila saenz in [place] (external orders) Requesting Staff Dr grimes Area Code + Phone/Pager: [phone] PET Orders (A delay in scheduling will result if the orders are not present at time of review): External. Has the External Clinical Order been scanned into [facility]? Yes ADDITIONAL ACTION MAY BE REQUIRED IF [...] file for patient also. [facility] to [facility] Discharge instructions Patient Education 10/03/2022 15:06:33 [...] including vitamins, herbs, eye drops, creams, and jjfp-rij-gskehji medicines. Any problems you or family members [...] provider tells you to take them. Taking usuq-qkz-ozppxvt medicines, vitamins, herbs, and supplements. Tests You [...] Follow these instructions at home: Medicines Take mrws-nwc-qlqhqdo and prescription medicines only as told by [...] provider. Document Revised: 10/06/2021 Document Reviewed: 09/04/2020 [employer] Patient Education 2022 [employer]. 10/03/2022 15:02:31 Hematuria, Adult Hematuria, Adult Hematuria [...] Follow these instructions at home: Medicines Take onxx-prr-mwxbkqh and prescription medicines only as told by [...] or the blood stops without treatment. Take rnfe-vzl-ocysdix and prescription medicines only as told by your health care provider. Drink enough fluid to keep your urine pale yellow. This information is not intended to replace advice given to you by your health care provider. Make sure you discuss any questions you have with your health care provider. Document Revised: 09/23/2020 Document Reviewed: 09/23/2020 [employer] Patient Education 2022 [employer]. Follow Up Care 09/27/2021 10:53:03 With:CORNELIO ROSARIO, Yosef Bunch, URL Address: [facility] [address] [place] [place] [id number] [phone] When: Unknown Comments:sched cysto and PSMA PET scan [facility] 04-27-2023 History of Present illness Narrative* Elio Payne APRN.SKEIN SPOOLER - 06/02/2022 2:06 PM EDT PATIENT NAME: [...] today. He spent the winter months in [place]. MEDICATIONS: lisinopril-hydrochlorothiazide (PRINZIDE,ZESTORETIC) 10-12.5 mg per tablet [...] lesion. No comparison study. 10/28/2019 Skeletal survey ([facility]) Subtle oval slightly lytic-appearing lesion [...] (moderate) Continue management per PCP/nephrology. Elio Payne APRN.SKEIN SPOOLER CC: Dr. Gabriela Nesbitt spent a total of 20 minutes on the date of the service which included preparing to see the patient, [id number] patient care, completing clinical documentation, obtaining and/or reviewing separately obtained history, performing a medically appropriate examination, counseling and educating the pat ient/family/caregiver, ordering medications, tests, or procedures, independently interpreting results (not separately reported), and communicating results to the patient/family/caregiver. documented in this encounterSt. [facility] Miscellaneous Notes* Telephone Encounter - Shima Penny [...] back as scheduled. Thanks, documented in this encounterSt. Mary'[facility]09[facility] History of Present illness Narrative* Nicolas Hwagn MD - 11/02/2021 7:57 AM EDT PATIENT [...] involvinghis right groin area. FNA obtained 08/16/2021 ([facility]) revealed changes suggestive of fatnecrosis [...] lesion. No comparison study. 10/28/2019 Skeletal survey ([facility]) Subtle oval slightly lytic-appearing lesion [...] in 7 months (after he returns from [place]). We will then see him every 6 [...] MD CC: Dr. Cook documented in this encounterSt. Mary'[facility]08[facility] Hospital Discharge instructions Patient Education 09/27/2021 10:40:14 [...] including vitamins, herbs, eye drops, creams, and lttl-ocj-zdlaook medicines. This also includes: ?Medicines to assist [...] 02/25/2005 Document Revised: 01/05/2018 Document Reviewed: 10/30/2017 [employer] Patient Education 2020 [employer] 09/27/2021 10:40:10 Calorie Counting for Weight [...] 01/23/2006 Document Revised: 10/12/2018 Document Reviewed: 12/23/2016 [employer] Patient Education 2020 [employer] Follow Up Care 10/22/2020 15:01:04 With:CORNELIO ROSARIO, Yosef Bunch, URL Address: [address] [place], [place] [id number]- Business (1) When:Within 1 Year(s) Comments:w/CHELA [facility] 06-27-2022 Miscellaneous Notes* Telephone Encounter - Nicolas Hwang MD - 08/02/2021 5:00 PM EDT The patient was found to have a cystic mass in his groin. He will undergo an ultrasound-guided biopsy at [place]. Dr. Chanel will inform me of the results. If benign I will see him back in Octoberas scheduled. If malignant I will see him after the biopsy to discuss further work-up and treatment. Thanks, GABI * Telephone Encounter - Melodie Patel Sec - 08/02/2021 1:42 PM EDT Please call Dr Chanel regarding [place] Phone number is [phone] thanks! documented in this encounterSt. Mary'[facility]04-08-2022 Miscellaneous Notes* Telephone Encounter - Pretty Aparicio [...] would recommend continued follow-up as planned. Thanks, BRM documented in this encounterSt. Mary'[facility]04-08-2022 Miscellaneous Notes* Telephone Encounter - Pretty Aparicio [...] as planned. Thanks, BRKris documented in this encounterSt. Mary'[facility] [facility]04-01-2022 Miscellaneous Notes* Telephone Encounter - Bettina Sargent - 10/21/2021 1:38 PM EDT Patient scheduled to see you on Monday11/02/21 for follow up with labs. Please add lab orders. Thanks. Bettina Sargent MA documented in this encounterSt. Mary'[facility]10-08-2021 Evaluation note* Encounter Date Diagnosis Assessment Notes [...] Patient care instructions given in writting by [facility] document. Reds10 Other 04-14-2020 Evaluation + Plan note Future Appointments Appointment Date:01/30/2024 11:00:00 AM Scheduled Provider: Location[facility] Appointment Type:CV Echo () Appointment Date:05/20/2024 12:45:00 PM Scheduled Provider:Yosef GRIMES MD [facility] Appointment Type:URO Office Visit Appointment Date:10/24/2024 11:00:00 AM Scheduled Provider: Location:[facility] Appointment Type: Medicare Wellness Subsequent Future Scheduled Tests Radiology* Echo Transthoracic Complete 01/30/24 [facility] Evaluation + Plan note Future Appointments Appointment Date:09/26/2022 10:15:00 AM Scheduled Provider:Yosef GRIMES MD Location:[facility] Appointment Type:URO Office Visit Diagnostic Tests Pending * PSA Total 09/27/21 [facility] evaluation + Plan note Future Appointments Appointment Date:10/11/2022 01:00:00 PM Scheduled Provider: Location:[facility] Appointment Type: Medicare Wellness Subsequent [facility] evaluation + Plan note Future Appointments Appointment Date:11/18/2022 11:00:00 AM Scheduled Provider:Yosef GRIMES MD [facility] Appoint[facility] Type:URO Office Visit Appointment Date:10/13/2023 01:00:00 PM Scheduled Provider: Location:[facility] Appointment Type:FM Medicare Wellness Subsequent Diagnostic Tests Pending * UroVysion Fish and Urine Cyto ([facility]) 11[facility]01/22 [facility] Future Appointments Appointment Date:10/13/2023 01:00:00 PM Scheduled Provider: Location:[facility] Appointment Type:FM Medicare Wellness Subsequent [facility] evaluation + Plan note Future Appointments Appointment Date:05/22/2023 11:15:00 AM Scheduled Provider:Yosef GRIMES MD [facility] Appointment Type:URO Office Visit Appointment Date:10/13/2023 01:00:00 PM Scheduled Provider: Location:[facility] Appointment Type: Medicare Wellness Subsequent Diagnostic Tests Pending * PSA Total 04/07/23 [facility] evaluation + Plan note Future Appointments Appointment Date:10/23/2023 01:00:00 PM Scheduled Provider: Location:[facility] Appointment Type: Medicare Wellness Subsequent Appointment Date:11/24/2023 11:00:00 AM Scheduled Provider:Yosef GRIMES MD [facility] Appointment Type:URO Office Visit [facility] evaluation + Plan note Future Appointments Appointment Date:05/20/2024 12:45:00 PM Scheduled Provider:Yosef GRIMES MD [facility] Appointment Type:URO Office Visit Appointment Date:10/24/2024 11:00:00 AM Scheduled Provider: Location:[facility] Appointment Type: Medicare Wellness Subsequent Diagnostic Tests Pending * PSA Total 03/09/24 [facility] evaluation + Plan note Future Appointments Appointment Date:01/08/2024 09:00:00 AM Scheduled Provider:Yosef GRIMES MD [facility] Appointment Type:URO Office Visit Appointment Date:05/20/2024 12:45:00 PM Scheduled Provider:Yosef GRIMES MD [facility] Appointment Type:URO Office Visit Appointment Date:10/24/2024 11:00:00 AM Scheduled [facility] Type:FM Medicare Wellness Subsequent [facility] evaluation + Plan note Future Appointments Appointment Date:01/08/2024 09:00:00 AM Scheduled Provider:Yosef GRIMES MD [facility] Appointment Type:URO Office Visit Appointment Date:05/20/2024 12:45:00 PM Scheduled Provider:Yosef GRIMES MD Location:[facility] Kristen Appointment Type:URO Office Visit Appointment Date:10/24/2024 11:00:00 AM Scheduled Provider: [facility] Type: Medicare Wellness Subsequent Diagnostic Tests Pending * Urine Culture 01/01/24 [facility] evaluation + Plan note Future Appointments Appointment Date:01/10/2024 01:00:00 PM Scheduled Provider:Yosef GRIMES MD Location:[facility] Jose Appointment Type:URO Procedure 15 min Appointment Date:05/20/2024 12:45:00 PM Scheduled Provider:Yosef GRIMES MD Location:[facility] Kristen Appointment Type:URO Office Visit Appointment Date:10/24/2024 11:00:00 AM Scheduled Provider: [facility] Type: Medicare Wellness Subsequent Diagnostic Tests Pending * Urine Cytology ([facility]) 01/08/24 [facility] evaluation + Plan note Future Appointments Appointment Date:01/10/2024 01:00:00 PM Scheduled Provider:Yosef GRIMES MD [facility] Appointment Type:URO Procedure 15 min Appointment Date:05/20/2024 12:45:00 PM Scheduled Provider:Yosef GRIMES MD Location:[facility] Kristen Appointment Type:URO Office Visit Appointment Date:10/24/2024 11:00:00 AM Scheduled Provider: [facility] Type:FM Medicare Wellness Subsequent [facility] evaluation + Plan note Future Appointments Appointment Date:01/26/2024 08:45:00 AM Scheduled Provider:Yosef GRIMES MD [facility] Appointment Type:URO Office Visit Appointment Date:05/20/2024 12:45:00 PM Scheduled Provider:Yosef GRIMES MD Location[facility] Appointment Type:URO Office Visit Appointment Date:10/24/2024 11:00:00 AM Scheduled Provider: Location:[facility] Appointment Type:FM Medicare Wellness Subsequent [facility] [place] Evaluation + Plan note Future Appointments Appointment Date:02/28/2024 08:45:00 AM Scheduled Provider:Yosef GRIMES MD Location:[facility] Appointment Type:URO Office Visit Appointment Date:05/20/2024 12:45:00 PM Scheduled Provider:Yosef GRIMES MD [facility] Appointment Type:URO Office Visit Appointment Date:10/24/2024 11:00:00 AM Scheduled Provider: Location:[facility] Appointment Type: Medicare Wellness [facility] evaluation + Plan note Future Appointments Appointment Date:03/04/2024 09:30:00 AM Scheduled Provider:Yosef GRIMES MD [facility] Appointment Type:URO Office Visit Appointment Date:05/20/2024 12:45:00 PM Scheduled Provider:Yosef GRIMES MD [facility] Appointment Type:URO Office Visit Appointment Date:10/24/2024 11:00:00 AM Scheduled Provider: Location:[facility] Appointment Type: Medicare Wellness Subsequent [facility] [place] Evaluation + Plan note Future Appointments Appointment Date:05/20/2024 12:45:00 PM Scheduled Provider:Yosef GRIMES MD [facility] Appointment Type:URO Office Visit Appointment Date:10/24/2024 11:00:00 AM Scheduled Provider: Location:[facility] Kristen Appointment Type:FM Medicare Wellness Subsequent [facility] [place] evaluation note* Diagnosis Monoclonal gammopathy- Primary Monoclonal [...] [facility] noteNo assessment information availableParkwood Hospital Work Phone: Evaluation note* Diagnosis Malignant [...] neoplasm of prostate documented [facility] [place] [facility]* Diagnosis Prostate cancer (HCC)- Primary Malignant neoplasm of prostate Monoclonal gammopathy Monoclonal paraproteinemia documented [facility] this encounter [facility] [place] [facility]* Diagnosis Prostate cancer (HCC)- Primary Malignant neoplasm of prostate Monoclonal gammopathy Monoclonal paraproteinemia Chronic renal insufficiency, stage 3 (moderate) (HCC) Essential hypertension Unspecified essential hypertension documented in this encounter [facility]Eval[facility] [place] [facility]* Diagnosis Malignant neoplasm of prostate (HCC)- Primary Malignant neoplasm of prostate documented [facility] [place] [facility]* Diagnosis Prostate cancer (HCC)- Primary Malignant neoplasm of prostate Monoclonal gammopathy Monoclonal paraproteinemia documented [facility] [place] [facility]* Diagnosis Malignant neoplasm of prostate (HCC)- Primary Malignant neoplasm of prostate documented [facility] [place] [facility]* Diagnosis Monoclonal gammopathy- Primary Monoclonal paraproteinemia Prostate cancer (HCC) Malignant neoplasm of prostate Chronic renal insufficiency, stage 3 (moderate) (HCC) documented in this encounter [facility] Narrative - Reported* Type Description Date Medical History hypertension Medical History HYPONATREMIA Medical History ACUTE CHRONIC RENAL FAILURE Medical History PLEURISY Surgical History cancer, skin Lip and Hand 1999 Surgical History PROSTATECTOMY Surgical History SKIN LESIONS REMOVED X2 09/2020 Hospitalization History SEE ABOVE Hospitalization History PNEUMONIA AT AGE 7 Reds10 Other Hospital course Narrative No data available for this section [facility] Hospital Discharge instructions No data available for this section [facility] No data available for this section [facility] Summary Purpose Family History No Family History [...] Referred By Ana t Referred To Contact Dermatology Diagnoses Skin lesion of right arm History of squamous cell carcinoma Procedures CONSULT TO DERMATOLOGY OFFICE/OUTPATIENT NEW HIGH MDM 60-74 MINUTES David Kumari MD [address] [place] [address] [place] [address] Referral ID Status Reason Start Date Expiration Date Visits Requested Visits Authorized [id number] Pending Review PCP Requested Referral 3 12/19/2023 1 1 Specialty Diagnoses / Procedures Referred By Contac t Referred To Contact Diagnoses Malignant neoplasm of prostate (HCC) Procedures CT SIM PLANNING RADIATION ONCOLOGY THER RAD SIMULAJ-AIDED FIELD SETTING COMPLEX David Kumari MD [address] [place] [address] [place] [address] Referral ID Status Reason Start Date Expiration Date Visits Requested Visits Authorized [id number] Pending Review PCP Requested Referral 12/15/2022 03/08/2023 1 1 Specialty Diagnoses / Procedures Referred By Contac t Referred To Contact MR IMAGING Diagnoses Malignant neoplasm of prostate (HCC) Procedures MRI PROSTATE WO/W IVCON MRI PELVIS W/O & W/CONTRAST MATERIAL David Kumari MD [address] [place] [address] [place] [address] [place] [address] Referral ID Status Reason Start Date Expiration Date Visits Requested Visits Authorized [id number] Pending Review Auto-Generat ed Referral 3 12/15/2023 1 1 Additional Source Comments Source Comments (unrecognize d section and content) In the event this informatio n is protected by the Federal Confidentiality of Alcohol and Drug Abuse Patient Records regulations: The Federal rules restrict any use of the information to criminally investigate or prosecute any alcohol or drug abuse patient.[facility]In the event this information is protected by the Federal Confidentiality of Alcohol and Drug Abuse Patient Records regulations: The Federal rules restrict any use of the information to criminally investigate or prosecute any alcohol or drug abuse patient.[facility]In the event this information is protected by the Federal Confidentiality of Alcohol and Drug Abuse Patient Records regulations: The Federal rules restrict any use of the information to criminally investigate or prosecute any alcohol or drug abuse patient.[facility] CampusIn the event this information is protected by the Federal Confidentiality of Alcohol and Drug Abuse Patient Records regulations: The Federal rules restrict any use of the information to criminally investigate or prosecute any alcohol or drug abuse patient.[facility] CampusIn the event this information is protected by the Federal Confidentiality of Alcohol and Drug Abuse Patient Records regulations: The Federal rules restrict any use of the information to criminally investigate or prosecute any alcohol or drug abuse patient.[facility] CampusIn the event this information is protected by the Federal Confidentiality of Alcohol and Drug Abuse Patient Records regulations: The Federal rules restrict any use of the information to criminally investigate or prosecute any alcohol or drug abuse patient.[facility] CampusIn the event this information is protected by the Federal Confidentiality of Alcohol and Drug Abuse Patient Records regulations: The Federal rules restrict any use of the information to criminally investigate or prosecute any alcohol or drug abuse patient.[facility] CampusIn the event this information is protected by the Federal Confidentiality of Alcohol and Drug Abuse Patient Records regulations: The Federal rules restrict any use of the information to criminally investigate or prosecute any alcohol or drug abuse patient.[facility] CampusIn the event this information is protected by the Federal Confidentiality of Alcohol and Drug Abuse Patient Records regulations: The Federal rules restrict any use of the information to criminally investigate or prosecute any alcohol or drug abuse patient.[facility] CampusIn the event this information is protected by the Federal Confidentiality of Alcohol and Drug Abuse Patient Records regulations: The Federal rules restrict any use of the information to criminally investigate or prosecute any alcohol or drug abuse patient.[facility] CampusIn the event this information is protected by the Federal Confidentiality of Alcohol and Drug Abuse Patient Records regulations: The Federal rules restrict any use of the information to criminally investigate or prosecute any alcohol or drug abuse patient.[facility] CampusIn the event this information is protected by the Federal Confidentiality of Alcohol and Drug Abuse Patient Records regulations: The Federal rules restrict any use of the information to criminally investigate or prosecute any alcohol or drug abuse patient.[facility] CampusIn the event this information is protected by the Federal Confidentiality of Alcohol and Drug Abuse Patient Records regulations: The Federal rules restrict any use of the information to criminally investigate or prosecute any alcohol or drug abuse patient.[facility] CampusIn the event this information is protected by the Federal Confidentiality of Alcohol and Drug Abuse Patient Records regulations: The Federal rules restrict any use of the information to criminally investigate or prosecute any alcohol or drug abuse patient.[facility] CampusIn the event this information is protected by the Federal Confidentiality of Alcohol and Drug Abuse Patient Records regulations: The Federal rules restrict any use of the information to criminally investigate or prosecute any alcohol or drug abuse patient.[facility] CampusIn the event this information is protected by the Federal Confidentiality of Alcohol and Drug Abuse Patient Records regulations: The Federal rules restrict any use of the information to criminally investigate or prosecute any alcohol or drug abuse patient.[facility] CampusIn the event this information is protected by the Federal Confidentiality of Alcohol and Drug Abuse Patient Records regulations: The Federal rules restrict any use of the information to criminally investigate or prosecute any alcohol or drug abuse patient.[facility] CampusIn the event this information is protected by the Federal Confidentiality of Alcohol and Drug Abuse Patient Records regulations: The Federal rules restrict any use of the information to criminally investigate or prosecute any alcohol or drug abuse patient.[facility] CampusIn the event this information is protected by the Federal Confidentiality of Alcohol and Drug Abuse Patient Records regulations: The Federal rules restrict any use of the information to criminally investigate or prosecute any alcohol or drug abuse patient.[facility] CampusIn the event this information is protected by the Federal Confidentiality of Alcohol and Drug Abuse Patient Records regulations: The Federal rules restrict any use of the information to criminally investigate or prosecute any alcohol or drug abuse patient.[facility] CampusIn the event this information is protected by the Federal Confidentiality of Alcohol and Drug Abuse Patient Records regulations: The Federal rules restrict any use of the information to criminally investigate or prosecute any alcohol or drug abuse patient.[facility] CampusIn the event this information is protected by the Federal Confidentiality of Alcohol and Drug Abuse Patient Records regulations: The Federal rules restrict any use of the information to criminally investigate or prosecute any alcohol or drug abuse patient.[facility] CampusIn the event this information is protected by the Federal Confidentiality of Alcohol and Drug Abuse Patient Records regulations: The Federal rules restrict any use of the information to criminally investigate or prosecute any alcohol or drug abuse patient.[facility] CampusIn the event this information is protected by the Federal Confidentiality of Alcohol and Drug Abuse Patient Records regulations: The Federal rules restrict any use of the information to criminally investigate or prosecute any alcohol or drug abuse patient.[facility] CampusIn the event this information is protected by the Federal Confidentiality of Alcohol and Drug Abuse Patient Records regulations: The Federal rules restrict any use of the information to criminally investigate or prosecute any alcohol or drug abuse patient.[facility] the event this information is protected by the Federal Confidentiality of Alcohol and Drug Abuse Patient Records regulations: The Federal rules restrict any use of the information to criminally investigate or prosecute any alcohol or drug abuse patient.[facility] CampusIn the event this information is protected by the Federal Confidentiality of Alcohol and Drug Abuse Patient Records regulations: The Federal rules restrict any use of the information to criminally investigate or prosecute any alcohol or drug abuse patient.[facility] CampusIn the event this information is protected by the Federal Confidentiality of Alcohol and Drug Abuse Patient Records regulations: The Federal rules restrict any use of the information to criminally investigate or prosecute any alcohol or drug abuse patient.[facility] CampusIn the event this information is protected by the Federal Confidentiality of Alcohol and Drug Abuse Patient Records regulations: The Federal rules restrict any use of the information to criminally investigate or prosecute any alcohol or drug abuse patient.[facility] CampusIn the event this information is protected by the Federal Confidentiality of Alcohol and Drug Abuse Patient Records regulations: The Federal rules restrict any use of the information to criminally investigate or prosecute any alcohol or drug abuse patient.[facility] CampusIn the event this information is protected by the Federal Confidentiality of Alcohol and Drug Abuse Patient Records regulations: The Federal rules restrict any use of the information to criminally investigate or prosecute any alcohol or drug abuse patient.[facility] CampusIn the event this information is protected by the Federal Confidentiality of Alcohol and Drug Abuse Patient Records regulations: The Federal rules restrict any use of the information to criminally investigate or prosecute any alcohol or drug abuse patient.[facility] CampusIn the event this information is protected by the Federal Confidentiality of Alcohol and Drug Abuse Patient Records regulations: The Federal rules restrict any use of the information to criminally investigate or prosecute any alcohol or drug abuse patient.[facility] CampusIn the event this information is protected by the Federal Confidentiality of Alcohol and Drug Abuse Patient Records regulations: The Federal rules restrict any use of the information to criminally investigate or prosecute any alcohol or drug abuse patient.[facility] [place] CampusIn the event this information is protected by the Federal Confidentiality of Alcohol and Drug Abuse Patient Records regulations: The Federal rules restrict any use of the information to criminally investigate or prosecute any alcohol or drug abuse patient.[facility] [place] CampusIn the event this information is protected by the Federal Confidentiality of Alcohol and Drug Abuse Patient Records regulations: The Federal rules restrict any use of the information to criminally investigate or prosecute any alcohol or drug abuse patient.[facility] [place] CampusIn the event this information is protected by the Federal Confidentiality of Alcohol and Drug Abuse Patient Records regulations: The Federal rules restrict any use of the information to criminally investigate or prosecute any alcohol or drug abuse patient.[facility] [place] CampusIn the event this information is protected by the Federal Confidentiality of Alcohol and Drug Abuse Patient Records regulations: The Federal rules restrict any use of the information to criminally investigate or prosecute any alcohol or drug abuse patient.[facility] [place] CampusIn the event this information is protected by the Federal Confidentiality of Alcohol and Drug Abuse Patient Records regulations: The Federal rules restrict any use of the information to criminally investigate or prosecute any alcohol or drug abuse patient.[facility] [place] CampusIn the event this information is protected by the Federal Confidentiality of Alcohol and Drug Abuse Patient Records regulations: The Federal rules restrict any use of the information to criminally investigate or prosecute any alcohol or drug abuse patient.[facility] [place] CampusIn the event this information is protected by the Federal Confidentiality of Alcohol and Drug Abuse Patient Records regulations: The Federal rules restrict any use of the information to criminally investigate or prosecute any alcohol or drug abuse patient.[facility] [place] CampusIn the event this information is protected by the Federal Confidentiality of Alcohol and Drug Abuse Patient Records regulations: The Federal rules restrict any use of the information to criminally investigate or prosecute any alcohol or drug abuse patient.[facility] [place] CampusIn the event this information is protected by the Federal Confidentiality of Alcohol and Drug Abuse Patient Records regulations: The Federal rules restrict any use of the information to criminally investigate or prosecute any alcohol or drug abuse patient.[facility] [place] CampusIn the event this information is protected by the Federal Confidentiality of Alcohol and Drug Abuse Patient Records regulations: The Federal rules restrict any use of the information to criminally investigate or prosecute any alcohol or drug abuse patient.[facility] [place] CampusIn the event this information is protected by the Federal Confidentiality of Alcohol and Drug Abuse Patient Records regulations: The Federal rules restrict any use of the information to criminally investigate or prosecute any alcohol or drug abuse patient.[facility] [place] [facility] Reason for Visit (unrecogniz ed section and content) Reason Comments Lab Orders Reason Comments Results Reason Comments Call Back 48 Hours Reason Comments monoclonal gammopathy Follow up Reason Comments Nm Pet Request Reason Comments Bladder Cancer Reason Comments Radiology MRI Specialty Diagnoses / Procedures Referred By Contac Referred To Contact MR IMAGING Diagnoses Malignant neoplasm of prostate (HCC) Procedures MRI PROSTATE WO/W IVCON MRI PELVIS W/O & W/CONTRAST MATERIAL David Kumari MD [address] [place] [address] [place] [address] [place] [address] Referral ID Status Reason Start Date Expiration Date V isits Requested Visits Authorized [id number] Closed Auto-Generate d Referral 11/15/2022 12/15/2023 1 [...] PROSTATE 39FX PLUS SIM David Kumari MD [address] [place] [address] [place] [address] David Kumari MD [address] [place] [address] [place] [address] Referral ID Status Reason Start Date Expiration Date Visits Re quested Visits Authorized [id number] Closed 11/23/2022 06/05/2023 40 40 Reason Comments Prostate Cancer Followup Reason Comments Hematuria Reason Comments Radiology CT Specialty Diagnoses / Procedures Referred By Contac t Referred To Contact [facility] Diagnoses Prostate cancer (HCC) Procedures IMAGING STUDY ORDERED Yosef Grimes MD [address] [place] [address] [facility] [address] [place] [address] Referral ID Status Reason Start Date Expiration Date Visits Requested Visits Authorized [id number] Pending Review Patient Cleared - Admin/Chair man/Directo r advise to proceed or did not respond 01/10/2024 07/08/2024 1 1 Reason Comments Radio Gen RMP Care Team (unrecognized sect ion and content) Team Status: Inactive Member Role Status Dates Angelina Holder NP-C Attending Provider Active Integrated Campaign Manager Relationship Specialty Start Date End Date Shahriar Stephenson MD [address] [place] [address] PCP - General Family Medicine 11/15/22 Integrated Campaign Manager Relationship Specialty Start Date End Date Shahriar Stephenson MD [address] [place], [place] [id number] PCP - General Family Medicine 11/15/22 Integrated Campaign Manager Relationship Specialty Start Date End Date Shahriar Stephenson MD [address] [place] [address] PCP - General Family Medicine 11/15/22 Integrated Campaign Manager Relationship Specialty Start Date End Date Shahriar Stephenson MD [address] [place] [address] PCP - General Family Medicine 11/15/22 David Kumari MD [address] [facility] [place] [address] Physician Radiation Oncology 12/12/22 Elio Payne, HANDLE ASSEMBLER.SKEIN SPOOLER [address] [facility] [place] [address] Nurse Practitioner Hematology/Oncology 12/12/22 Nicolas Hwang MD [address] [facility] [place] [address] Physician Hematology/Oncology 12/12/22 Nancy Ray, SINDI [address] [facility] [place] [address] Specialty Hims Clerk Hematology/Oncology 12/12/22 Integrated Campaign Manager Relationship Specialty Start Date End Date Shahriar Stephenson MD [address] [place] [address] PCP - General Family Medicine 11/15/22 Integrated Campaign Manager Relationship Specialty Start Date End Date Shahriar Stephenson MD [address] [place] [address] PCP - General Family Medicine 11/15/22 David Kumari MD [address] [facility] [place] [address] Physician Radiation Oncology 12/12/22 Elio Payne, HANDLE ASSEMBLER.SKEIN SPOOLER [address] [facility] [place] [address] Nurse Practitioner Hematology/Oncology 12/12/22 Nicolas Hwang MD [address] [facility] [place] [address] Physician Hematology/Oncology 12/12/22 Nancy Ray, SINDI [address] [facility] [place] [place] [address] Specialty Hims Clerk Hematology/Oncology 12/12/22 Integrated Campaign Manager Relationship Specialty Start Date End Date Shahriar Stephenson MD [facility] [place] [address] PCP - General Family Medicine 11/15/22 David Kumari MD [address] [facility] [place] [address] Physician Radiation Oncology 12/12/22 Elio Payne APRN.SKEIN SPOOLER [address] [facility] [place] [address] Nurse Practitioner Hematology/Oncology 12/12/22 Nicolas Hwang MD [address] [facility] [place] [address] Physician Hematology/Oncology 12/12/22 Nancy Ray, SINDI [address] [facility] [place] [address] Specialty Hims Clerk Hematology/Oncology 12/12/22 Integrated Campaign Manager Relationship Specialty Start Date End Date Shahriar Stephenson MD [address] [place] [address] PCP - General Family Medicine 11/15/22 David Kumari MD [address] [facility] [place] [address] Physician Radiation Oncology 12/12/22 Elio Payne, HANDLE ASSEMBLER.SKEIN SPOOLER [address] [facility] [place] [address] Nurse Practitioner Hematology/Oncology 12/12/22 Nicolas Hwang MD [address] [facility] [place] [address] Physician Hematology/Oncology 12/12/22 Nancy Ray, RN [address] [facility] [place] [address] Specialty Hims Clerk Hematology/Oncology 12/12/22 Integrated Campaign Manager Relationship Specialty Start Date End Date Shahriar Stephenson MD [facility] [place] [address] PCP - General Family Medicine 11/15/22 David Kumari MD [address] [facility] [place] [address] Physician Radiation Oncology 12/12/22 Elio Payne, HANDLE ASSEMBLER.SKEIN SPOOLER [address] [facility] [place] [address] Nurse Practitioner Hematology/Oncology 12/12/22 Nicolas Hwang MD [address] [facility] [place] [address] Physician Hematology/Oncology 12/12/22 Nancy Ray, SINDI [address] [facility] [place] [address] Specialty Hims Clerk Hematology/Oncology 12/12/22 Integrated Campaign Manager Relationship Specialty Start Date End Date Shahriar Stephenson MD [address] [place] [address] PCP - General Family Medicine 11/15/22 David Kumari MD [address] [facility] [place] [address] Physician Radiation Oncology 12/12/22 Elio Payne, HANDLE ASSEMBLER.SKEIN SPOOLER [address] [facility] [place] [address] Nurse Practitioner Hematology/Oncology 12/12/22 Nicolas Hwang MD [address] [facility] [place] [address] Physician Hematology/Oncology 12/12/22 Nancy Ray, SINDI [address] [facility] [place] [address] Specialty Hims Clerk Hematology/Oncology 12/12/22 Integrated Campaign Manager Relationship Specialty Start Date End Date Shahriar Stephenson MD [address] [place] [address] PCP - General Family Medicine 11/15/22 David Kumari MD [address] [facility] [place] [address] Physician Radiation Oncology 12/12/22 Elio Payne, HANDLE ASSEMBLER.SKEIN SPOOLER [address] [facility] [place] [address] Nurse Practitioner Hematology/Oncology 12/12/22 Nicolas Hwang MD [address] [place] [address] [place] [address] Physician Hematology/Oncology 12/12/22 Nancy Ray, RN [address] [facility] [place] [address] Specialty Hims Clerk Hematology/Oncology 12/12/22 Integrated Campaign Manager Relationship Specialty Start Date End Date Shahriar Stephenson MD [address] [place] [address] PCP - General Family Medicine 11/15/22 David Kumari MD [address] [place] [address] [place] [address] Physician Radiation Oncology 12/12/22 Elio Payne APRN.SKEIN SPOOLER [address] [place] [address] [place] [address] Nurse Practitioner Hematology/Oncology 12/12/22 Nicolas Hwang MD [address] [place] [address] [place] [address] Physician Hematology/Oncology 12/12/22 Nancy Ray, SINDI [address] [facility] [place] [address] Specialty Hims Clerk Hematology/Oncology 12/12/22 Integrated Campaign Manager Relationship Specialty Start Date End Date Shahriar Stephenson MD [address] [place], [place] [address] [address] PCP - General Family Medicine 11/15/22 David Kumari MD [address] [place] [address] [place] [address] Physician Radiation Oncology 12/12/22 Elio Payne, HANDLE ASSEMBLER.SKEIN SPOOLER [address] [facility] [place] [address] Nurse Practitioner Hematology/Oncology 12/12/22 Nicolas Hwang MD [address] [facility] [place] [address] Physician Hematology/Oncology 12/12/22 Nancy Ray, SINDI [address] [facility] [place] [address] Specialty Hims Clerk Hematology/Oncology 12/12/22 Integrated Campaign Manager Relationship Specialty Start Date End Date Shahriar Stephenson MD [facility] [place] [address] PCP - General Family Medicine 11/15/22 Daivd Kumari MD [address] [facility] [place] [address] Physician Radiation Oncology 12/12/22 Elio Payne, HANDLE ASSEMBLER.SKEIN SPOOLER [address] [facility] [place] [address] Nurse Practitioner Hematology/Oncology 12/12/22 Nicolas Hwang MD [address] [facility] [place] [address] Physician Hematology/Oncology 12/12/22 Nancy Ray, SINDI [address] [facility] [place] [address] Specialty Hims Clerk Hematology/Oncology 12/12/22 Integrated Campaign Manager Relationship Specialty Start Date End Date Shahriar Stephenson MD [address] [place] [address] PCP - General Family Medicine 11/15/22 David Kumari MD [address] [facility] [place] [address] Physician Radiation Oncology 12/12/22 Elio Payne, HANDLE ASSEMBLER.SKEIN SPOOLER [address] [facility] [place] [address] Nurse Practitioner Hematology/Oncology 12/12/22 Nicolas Hwang MD [address] [facility] [place] [address] Physician Hematology/Oncology 12/12/22 Nancy Ray, SINDI [address] [facility] [place] [address] Specialty Hims Clerk Hematology/Oncology 12/12/22 Integrated Campaign Manager Relationship Specialty Start Date End Date Shahriar Stephenson MD [address] [place] [address] PCP - General Family Medicine 11/15/22 David Kumari MD [address] [facility] [place] [address] Physician Radiation Oncology 12/12/22 Elio Payne, HANDLE ASSEMBLER.SKEIN SPOOLER [address] [facility] [place] [address] Nurse Practitioner Hematology/Oncology 12/12/22 Nicolas Hwang MD [address] [facility] [place] [address] Physician Hematology/Oncology 12/12/22 Nancy Ray, SINDI [address] [facility] [place] [address] Specialty Hims Clerk Hematology/Oncology 12/12/22 Integrated Campaign Manager Relationship Specialty Start Date End Date Shahriar Stephenson MD [address] [place] [address] PCP - General Family Medicine 11/15/22 David Kumari MD [address] [facility] [place] [address] Physician Radiation Oncology 12/12/22 Elio Payne, HANDLE ASSEMBLER.SKEIN SPOOLER [address] [place] [address] Nurse Practitioner Hematology/Oncology 12/12/22 Nicolas Hwang MD [address] [facility] [place] [address] Physician Hematology/Oncology 12/12/22 Nancy Ray, SINDI [address] [facility] [place] [address] Specialty Hims Clerk Hematology/Oncology 12/12/22 Integrated Campaign Manager Relationship Specialty Start Date End Date Shahriar Stephenson MD [address] [place] [address] PCP - General Family Medicine 11/15/22 David Kumari MD [address] [facility] [place] [address] Physician Radiation Oncology 12/12/22 Elio Payne, HANDLE ASSEMBLER.SKEIN SPOOLER [address] [place] [address] Nurse Practitioner Hematology/Oncology 12/12/22 Nicolas Hwang MD [address] [facility] [place] [address] Physician Hematology/Oncology 12/12/22 Nancy Ray, SINDI [address] [facility] [place] [address] Specialty Hims Clerk Hematology/Oncology 12/12/22 Integrated Campaign Manager Relationship Specialty Start Date End Date Shahriar Stephenson MD [facility] [place] [address] PCP - General Family Medicine 11/15/22 David Kumari MD [address] [facility] [place] [place] [address] Physician Radiation Oncology 12/12/22 Elio Payne APRN.SKEIN SPOOLER [address] [facility] [place] [address] Nurse Practitioner Hematology/Oncology 12/12/22 Nicolas Hwang MD [address] [facility] [place] [address] Physician Hematology/Oncology 12/12/22 Nancy Ray, SINDI [address] [facility] [place] [address] Specialty Hims Clerk Hematology/Oncology 12/12/22 Integrated Campaign Manager Relationship Specialty Start Date End Date Shahriar Stephenson MD [address] [place] [address] PCP - General Family Medicine 11/15/22 Daivd Kumari MD [address] [facility] [place] [address] Physician Radiation Oncology 12/12/22 Elio Payne, HANDLE ASSEMBLER.SKEIN SPOOLER [address] [facility] [place] [address] Nurse Practitioner Hematology/Oncology 12/12/22 Nicolas Hwang MD [address] [facility] [place] [address] Physician Hematology/Oncology 12/12/22 Nancy Ray, RN [address] [facility] [place] [address] Specialty Hims Clerk Hematology/Oncology 12/12/22 Integrated Campaign Manager Relationship Specialty Start Date End Date Shahriar Stephenson MD [address] [place] [address] PCP - General Family Medicine 11/15/22 David Kumari MD [address] [facility] [place] [address] Physician Radiation Oncology 12/12/22 Elio Payen, HANDLE ASSEMBLER.SKEIN SPOOLER [address] [facility] [place] [address] Nurse Practitioner Hematology/Oncology 12/12/22 Nicolas Hwang MD [address] [facility] [place] [address] Physician Hematology/Oncology 12/12/22 Nancy Ray, SINDI [address] [facility] [place] [address] Specialty Hims Clerk Hematology/Oncology 12/12/22 Integrated Campaign Manager Relationship Specialty Start Date End Date Shahriar Stephenson MD [address] [place] [address] PCP - General Family Medicine 11/15/22 David Kumari MD [address] [facility] [place] [address] Physician Radiation Oncology 12/12/22 Elio Payne, HANDLE ASSEMBLER.SKEIN SPOOLER [address] [facility] [place] [address] Nurse Practitioner Hematology/Oncology 12/12/22 Nicolas Hwang MD [address] [facility] [place] [address] Physician Hematology/Oncology 12/12/22 Nancy Ray, SINDI [address] [facility] [place] [address] Specialty Hims Clerk Hematology/Oncology 12/12/22 Integrated Campaign Manager Relationship Specialty Start Date End Date Shahriar Stephenson MD [address] [place] [address] PCP - General Family Medicine 11/15/22 David Kumari MD [address] [facility] [place] [address] Physician Radiation Oncology 12/12/22 Elio Payne, HANDLE ASSEMBLER.SKEIN SPOOLER [address] [place] [address] Nurse Practitioner Hematology/Oncology 12/12/22 Nicolas Hwang MD [address] [facility] [place] [address] Physician Hematology/Oncology 12/12/22 Nancy Ray, RN [address] [facility] [place] [address] Specialty Hims Clerk Hematology/Oncology 12/12/22 Integrated Campaign Manager Relationship Specialty Start Date End Date Shahriar Stephenson MD [address] [place] [address] PCP - General Family Medicine 11/15/22 Integrated Campaign Manager Relationship Specialty Start Date End Date Shahriar Stephenson MD [address] [place] [address] PCP - General Family Medicine 11/15/22 David Kumari MD [address] [facility] [place] [address] Physician Radiation Oncology 12/12/22 Elio Payne APRN.SKEIN SPOOLER [address] [facility] [place] [address] Nurse Practitioner Hematology/Oncology 12/12/22 Nicolas Hwang MD [address] [facility] [place] [address] Physician Hematology/Oncology 12/12/22 Nancy Ray, SINDI [address] [facility] [place] [address] Specialty Hims Clerk Hematology/Oncology 12/12/22 Integrated Campaign Manager Relationship Specialty Start Date End Date Shahriar Stephenson MD [facility] [place] [address] PCP - General Family Medicine 11/15/22 David Kumari MD [address] [place] [address] [place] [address] Physician Radiation Oncology 12/12/22 Elio Payne, HANDLE ASSEMBLER.SKEIN SPOOLER [address] [place] [address] [place] [address] Nurse Practitioner Hematology/Oncology 12/12/22 Nicolas Hwang MD [address] [place] [address] [place] [address] Physician Hematology/Oncology 12/12/22 Nancy Ray, SINDI [address] [facility] [place] [address] Specialty Hims Clerk Hematology/Oncology 12/12/22 Team Status: Active Member Role Status Dates NON STAFF Primary Care Provider Active Start: January 13, 2024 Samir Mantilla DO Attending Provider Active Sta rt: January 13, 2024 Team Status: Inactive Member Role Status Dates Yosef Grimes MD Attending Provider Active St art: February 22, 2024 End: February 22, 2024 Integrated Campaign Manager Relationship Specialty Start Date End Date Shahriar Stephenson MD [address] [place] [address] PCP - General Family Medicine 11/15/22 David Kumari MD [address] [place] [address] [place] [address] Physician Radiation Oncology 12/12/22 Elio Payne, HANDLE ASSEMBLER.SKEIN SPOOLER [address] [facility] [place] [address] Nurse Practitioner Hematology/Oncology 12/12/22 Nicolas Hwang MD [address] [facility] [place] [address] Physician Hematology/Oncology 12/12/22 Nancy Ray, SINDI [address] [facility] [place] [address] Specialty Hims Clerk Hematology/Oncology 12/12/22 Integrated Campaign Manager Relationship Specialty Start Date End Date Shahriar Stephenson MD [address] [place] [address] PCP - General Family Medicine 11/15/22 David Kumari MD [address] [facility] [place] [address] Physician Radiation Oncology 12/12/22 Elio Payne, CRISTEL.SKEIN SPOOLER [address] [facility] [place] [address] Nurse Practitioner Hematology/Oncology 12/12/22 Nicolas Hwang MD [address] [place] [address] Physician Hematology/Oncology 12/12/22 Nancy Ray, SINDI [address] [facility] [place] [address] Specialty Hims Clerk Hematology/Oncology 12/12/22 Integrated Campaign Manager Relationship Specialty Start Date End Date Shahriar Stephenson MD [address] [place] [address] PCP - General Family Medicine 11/15/22 David Kumari MD [address] [facility] [place] [address] Physician Radiation Oncology 12/12/22 Elio Payne APRN.SKEIN SPOOLER [address] [place] [address] [place] [address] Nurse Practitioner Hematology/Oncology 12/12/22 Nicolas Hwang MD [address] [facility] [place] [address] Physician Hematology/Oncology 12/12/22 Nancy Ray, SINDI [address] [place] [address] [place] [address] Specialty Hims Clerk Hematology/Oncology 12/12/22 (unrecognized sect ion and content) No Status Records FoundNo Status Records FoundNo Status Records FoundNo Status Records FoundNo Status Records FoundNo Status Records FoundNo Status Records Found INFORMATION SOURCE (unrecogn ized section and content) DATE CREATED AUTHOR 10/17/2021 [facility] DATE CREATED AUTHOR AUTHOR'S ORGANIZ ATION 01/06/2024 [facility] DATE CREATED AUTHOR AUTHOR'S ORGANIZ ATION 02/29/2024 [facility] DATE CREATED AUTHOR AUTHOR'S ORGANIZ ATION 03/01/2024 [facility] DATE CREATED AUTHOR AUTHOR'S ORGANIZ ATION 03/05/2024 [facility] DATE CREATED AUTHOR AUTHOR'S ORGANIZ ATION 06/12/2024 [facility] DATE CREATED AUTHOR AUTHOR'S ORGANIZ ATION 10/13/2024 [facility] Goals (unrecognized section and content) Goals may [...] BE BASED ON THE PRIMARY CLINICAL RECORDS. [facility] [employer] [facility]. provides no warranty or guarantee of the accuracy or completeness of information in this document.
== END 2024-10-17 10:26 | disposition home or self-care (01) ==
LOC: PST 10:25
PROVIDERS: PCP Family Medicine; Visit Provider Urology
DX: Z01.818 Encounter for other preprocedural examination (principal); N13.2 Hydronephrosis with renal and ureteral calculous obstruction